=== PATIENT | female | born 1950 | race African-American/Black ===

== ENCOUNTER 2017-10-27 19:18 | Emergency (ER) | payer MEDICARE, SELFPAY ==
[2017-10-27 19:34] VITALS: BP 121/102; PULSE 81; RESP 18; TEMP 37.4; O2SAT 98; BMI 30.8
--- NOTE | 2017-10-27 19:44 | XR_ITS ---
XR shoulder RT min 2V HISTORY: Pain following injury ITS.REASON: FALL ORDERING PHYSICIAN: Sanjeev Cleary MD PATIENT AGE: 67 years COMPARISON: None FINDINGS: There is an anterior infraglenoid dislocation of the humeral head. Small bony fragments are noted superior to the greater tuberosity suggesting small avulsion injuries. IMPRESSION: Anterior shoulder dislocation with possible small avulsion injuries along the greater tuberosity
[2017-10-27 20:49] VITALS: BP 187/115; PULSE 80; RESP 18; O2SAT 99
[2017-10-27 20:50] VITALS: BP 187/115; PULSE 80; RESP 18; O2SAT 99
[2017-10-27 20:51] VITALS: BP 184/114; PULSE 82; RESP 16; O2SAT 98
[2017-10-27 20:55] VITALS: BP 184/117; PULSE 79; RESP 14; RESP 16; O2SAT 96; O2SAT 98
--- NOTE | 2017-10-27 20:56 | XR_ITS ---
XR shoulder RT 1V HISTORY: Follow-up shoulder reduction ITS.REASON: dislocation ORDERING PHYSICIAN: Sanjeev Cleary MD PATIENT AGE: 67 years COMPARISON: Same day FINDINGS: Single view of the right shoulder shows interval reduction of the shoulder dislocation. Small calcific density is present along superior aspect of the humeral head and could be due to small avulsion injury. IMPRESSION: Reduced shoulder dislocation
--- NOTE | 2017-10-27 20:57 | HMH.EDGENADL ---
ED Disposition Clinical Impression: Anterior shoulder dislocation Qualifiers: Encounter type: initial encounter Laterality: right Qualified Code(s): S43.014A - Anterior dislocation of right humerus, initial encounter Disposition: Home, Self-Care Condition on Discharge: Good Instructions: DI for Shoulder Dislocation Additional Instructions: wear sling as needed and ice and see pcp and ortho for follow up Referrals: Aldo Juarez MD [Primary Care Provider] - - Critical Care Critical Care Time: No Attestation: On 10/27/17, the high probability of a clinically significant, sudden or life threatening deterioration of the following system(s) required my full and direct attention, intervention and personal management. The time I documented below is in addition to time spent performing reported procedures but includes the following listed in this critical care notation. Medical Decision Making - Medical Records Medical records reviewed: Yes: I reviewed the patient's medical records. Vital Signs: 10/27/17 19:34 Temperature 99.4 F Temperature Source Oral Pulse Rate [Left] 81 Respiratory Rate 18 Blood Pressure [Left Arm] 121/102 Blood Pressure Mean [Left Arm] 108 Blood Pressure Source [Left Arm] Automatic Cuff Blood Pressure Position [Left Arm] Sitting 02 Sat by Pulse Oximetry 98 Oxygen Delivery Method Room Air Orders (Tests/Meds): ED MEDICATIONS Discontinued Medications Generic Name Dose Route Start Last Admin Trade Name Freq PRN Reason Stop Dose Admin Morphine Sulfate 5 mg 10/27/17 21:08 Morphine 10mg/Ml Syringe IV 10/27/17 21:09 ONCE ONE ORDERS Category Date Time Status Shoulder XR right 1 view [XR shoulder RT 1V] Stat Exams 10/27/17 20:56 Taken Shoulder XR right miminum 2 views [XR shoulder RT min Exams 10/27/17 19:44 Taken 2V] Stat - Radiology Data #1 Image(s): Shoulder Image Reviewed: Yes I reviewed the patient's radiology image Preliminary Findings: No Fracture Seen (ant dislocation and reduction ) - Rudy Inquiry Pt receiving controlled substance: No General Adult HPI - General Chief complaint: PAIN Stated complaint: AO [id number] INJURED ARM Time Seen by Provider: 10/27/17 21:12 Mode of Arrival: Wheelchair Source of Information: Patient, Spouse, Medical Record Limitations: No Limitations Description of Symptoms (Recalled from ER Triage Doc. by RN): PT. FELL UP THE STEPS AND LANDED ON HER RIGHT SHOULDER. - History of Present Illness HPI narrative: fell at home - trip injury on ice with injury to rt shoulder Onset (ago): hour(s) Location: upper extremity Radiation: non-radiation Severity: moderate Quality: sharp Relieving factors: immobilization Exacerbating factors: movement Associated symptoms: negative: chest pain, headaches, seizure Treatments prior to arrival: none - Related Data Home Medications Medication Instructions Recorded Confirmed Insulin Aspart [Novolog] 15 unit SQ HS 10/27/17 10/27/17 Insulin Glargine,Hum.rec.anlog 8 unit SQ BID 10/27/17 10/27/17 [Lantus Insulin 100units/mL 10mL vial] Allergies Allergy/AdvReac Type Severity Reaction Status Date / Time No Known Allergies Allergy Verified 10/27/17 19:47 [facility] History I have reviewed the patient's past medical history: Yes Medical History: Reports:: Diabetes Mellitus Type 2 - *Social History Alcohol Intake: never - Psychiatric History Expresses thoughts of harming self/others: None Suicide Plan Description: No Plan ROS Obtained: Yes All systems reviewed & no additional complaints - Constitutional Constitutional: Denies fever(s) - Eyes Eyes: Denies change in vision - ENT Ears, Nose, Mouth, and Throat: Denies sore throat - Cardiovascular Cardiovascular: Denies chest pain - Respiratory Respiratory: No cough - Gastrointestinal Gastrointestingal: Denies: abdominal pain - Genitourinary Male Genitourinary: Denies flank pain
--- NOTE | 2017-10-27 21:00 | PC.NURSE ---
Post sedation education was provided prior to procedure per John Aguirre RN.
--- NOTE | 2017-10-27 21:42 | PC.NURSE ---
FAMILY AT BEDSIDE, PT SITTING UP SPEAKING WITH FAMILY
[2017-10-27 21:43] VITALS: BP 167/90; PULSE 90; RESP 14; O2SAT 100
== END 2017-10-27 21:57 | disposition home or self-care (01) ==
PROVIDERS: Emergency Provider Emergency Medicine; Family Provider Family Medicine; PCP Family Medicine
DX: S43.014A Anterior dislocation of right humerus, initial encounter (principal); W10.9XXA Fall (on) (from) unspecified stairs and steps, initial encounter; Y93.9 Activity, unspecified; Y92.009 Unspecified place in unspecified non-institutional (private) residence as the place of occurrence of the external cause; E11.9 Type 2 diabetes mellitus without complications
CPT/HCPCS: 23650; 73020; 73030; 96365; 96375; 96376; 99284; 99285

== ENCOUNTER 2017-11-20 03:48 | Emergency (ER) | payer MEDICARE, SELFPAY ==
[2017-11-20] VITALS (8 sets, daily range): BP systolic 128–188; BP diastolic 81–125; PULSE 95–129; RESP 16–20; TEMP 36.8–37.2; O2SAT 93–100; BMI 30.2
--- NOTE | 2017-11-20 04:01 | XR_ITS ---
XR chest portable HISTORY: ITS.REASON: C/O SOB ORDERING PHYSICIAN: Dami Meadows MD PATIENT AGE: 67 years COMPARISON: 08/21/2017 FINDINGS: Cardiomegaly without failure. The right hilum is slightly prominent similar to an older exam of 08/30/2016 and may be vascular in nature. No lobar consolidation or collapse. There is mild right perihilar bronchial thickening IMPRESSION: 1. Cardiomegaly. 2. Bronchial thickening suggesting chronic bronchitis
[2017-11-20 04:23] LABS: Basophils % 0.6 % (0.1-2.0); Eosinophils # 0.2 K/mm3 (0.0-0.4); Hematocrit 31.4 % (37.0-47.0); Hemoglobin 10.1 g/dL (12.2-16.2); Lymphocytes # 0.8 K/mm3 (0.7-4.5); Lymphocytes % 16.8 K/mm3 (10-50); Mean Corpuscular HGB Conc 32.1 g/dL (31.8-35.4); Mean Corpuscular Hemoglobin 25.4 pg (27.0-31.2); Mean Platelet Volume 7.5 fl (7.4-10.4); Monocytes # 0.5 K/mm3 (0.1-1.0); Monocytes % 10.3 % (1.7-9.3); Neutrophils # 3.3 K/mm3 (1.8-7.8); Neutrophils % 68.3 % (37.0-80.0); Platelet Count 265 K/mm3 (142-424); Red Blood Count 3.97 M/mm3 (4.20-5.40); Red Cell Distribution Width 16.8 % (11.5-17.5); White Blood Count 4.8 K/mm3 (4.8-10.8)
[2017-11-20 04:47] LABS: Alanine Aminotransferase 22 U/L (12-78); Albumin Level 2.7 gm/dL (3.4-5.0); Albumin/Globulin Ratio 0.6 (1.1-1.8); Alkaline Phosphatase 254 U/L (46-116); Anion Gap 7.4 mEq/L (5-15); Aspartate Amino Transferase 38 U/L (15-37); Blood Urea Nitrogen 17 mg/dL (7-18); Calcium 8.7 mg/dL (8.5-10.1); Carbon Dioxide 31 mmol/L (21.0-32.0); Chloride 102 mmol/L (98-107); Creatine Kinase 42 U/L (26-192); Creatinine Clearance Estimated 60 mL/min (0-300); Estimated Glomerular Filt Rate 41 ml/min (>60); GFR (African American) 50 ML/MIN (>60); Globulin 4.6 gm/dl (1.3-3.2); Glucose 90 mg/dL (74-106); Potassium 3.4 mmoL/L (3.5-5.1); Sodium 137 mmol/L (136-145); Total Protein,Serum 7.3 gm/dL (6.4-8.2); Troponin I < 0.02 ng/ml (0.00-0.06)
[2017-11-20 04:51] LABS: CKMB Relative Index 1.2 U/L (0-4.0); Creatine Kinase MB < 0.5 mg/ml (0.0-3.6)
--- NOTE | 2017-11-20 05:06 | HMH.EDSOB ---
ED Disposition Clinical Impression: Atrial fibrillation with RVR Hypertension Qualifiers: Hypertension type: essential hypertension Qualified Code(s): I10 - Essential (primary) hypertension Disposition: Home, Self-Care Condition on Discharge: Good Additional Instructions: 1) please follow-up with 1015, tomorrow, , November 21 at [facility], [id number], [place] [address] 2) take another dose of furosemide and potassium this afternoon and tomorrow afternoon. 3) pharmacy picking technician prescription for amlodipine at [facility] today 4) follow-up with Talha Fox in [place] on November 24Monday, at 11 AM 5) take an additional dose of digoxin this afternoon, prescription called in at [facility] Prescriptions: Digoxin [Digoxin 0.25mg Tablet] 250 mcg PO ONCE #1 tab Referrals: Aldo Juarez MD [Primary Care Provider] - Time of Disposition: 11:28 - Critical Care Critical Care Time: No Attestation: On 11/20/17, the high probability of a clinically significant, sudden or life threatening deterioration of the following system(s) required my full and direct attention, intervention and personal management. The time I documented below is in addition to time spent performing reported procedures but includes the following listed in this critical care notation. Medical Decision Making - Medical Records Medical records reviewed: Yes: I reviewed the patient's medical records. Vital Signs: 11/20/17 03:54 11/20/17 04:44 11/20/17 05:02 Temperature 98.9 F Temperature Source Oral Pulse Rate Pulse Rate [Right Brachial] 101 H 95 H 113 H Respiratory Rate 20 20 20 Blood Pressure Blood Pressure [Right Arm] 188/118 162/111 170/125 Blood Pressure Mean [Right Arm] 141 128 140 Blood Pressure Source [Right Arm] Automatic Cuff Automatic Cuff Automatic Cuff Blood Pressure Position [Right Arm] Supine Supine Supine 02 Sat by Pulse Oximetry 97 100 97 Oxygen Delivery Method Room Air Room Air Room Air 11/20/17 05:21 11/20/17 05:38 11/20/17 06:02 Temperature Temperature Source Pulse Rate Pulse Rate [Right Brachial] 129 H 109 H 120 H Respiratory Rate 20 20 16 Blood Pressure Blood Pressure [Right Arm] 163/104 165/113 179/125 Blood Pressure Mean [Right Arm] 123 130 143 Blood Pressure Source [Right Arm] Automatic Cuff Automatic Cuff Automatic Cuff Blood Pressure Position [Right Arm] Supine Supine Supine 02 Sat by Pulse Oximetry 97 96 98 Oxygen Delivery Method Room Air Room Air Room Air 11/20/17 06:16 11/20/17 12:19 Temperature 98.2 F Temperature Source Pulse Rate 101 H Pulse Rate [Right Brachial] 109 H Respiratory Rate 18 20 Blood Pressure 128/81 Blood Pressure [Right Arm] 176/104 Blood Pressure Mean [Right Arm] 128 Blood Pressure Source [Right Arm] Automatic Cuff Blood Pressure Position [Right Arm] Supine 02 Sat by Pulse Oximetry 93 L Oxygen Delivery Method - Lab Data Lab results reviewed: Yes: I reviewed the patient's lab results. Lab Results 11/20/17 04:05: WBC 4.8, RBC 3.97 L, Hgb 10.1 L, Hct 31.4 L, MCV 79.0 L, MCH 25.4 L, MCHC 32.1, RDW 16.8, Plt Count 265, MPV 7.5, Neut % (Auto) 68.3, Lymph % (Auto) 16.8, [place] % (Auto) 10.3 H, Eos % (Auto) 4.0, Baso % (Auto) 0.6, Neut # (Auto) 3.3, Lymph # (Auto) 0.8, [place] # (Auto) 0.5, Eos # (Auto) 0.2, Baso # (Auto) 0.0 11/20/17 04:05: Sodium 137, Potassium 3.4 L, Chloride 102, Carbon Dioxide 31, Anion Gap 7.4, BUN 17, Creatinine 1.30 H, Estimated Creat Clear 60, Estimated GFR 41 L, Est GFR ( Amer) 50 L, Glucose 90, Calcium 8.7, Total Bilirubin 1.0, AST 38 H, ALT 22, Alkaline Phosphatase 254 H, Total Creatine Kinase 42, CK-MB (CK-2) < 0.5, CK-MB (CK-2) Rel Index 1.2, Troponin I < 0.02, Total Protein 7.3, Albumin 2.7 L, Globulin 4.6 H, Albumin/Globulin Ratio 0.6 L 11/20/17 04:30: PT 24.8 H, INR 2.28 H, APTT 37.1 H 11/20/17 04:30: D-Dimer 945 H* 11/20/17 04:30: B-Natriuretic Peptide 538 H 11/20/17 10:40:
[2017-11-20 05:26] LABS: INR 2.28 (0.9-1.1); Prothrombin Time 24.8 seconds (9.4-11.8)
[2017-11-20 05:28] LABS: Activated Partial Thrombo Time 37.1 seconds (23.6-34.0)
--- NOTE | 2017-11-20 05:28 | PC.NURSE ---
CRITICAL LAB VALUE RECIEVED FROM CHARLENE KLEIN. PTT 37.1. DR BERMAN NOTIFIED
[2017-11-20 05:38] LABS: D-Dimer 945 (0-400)
--- NOTE | 2017-11-20 07:28 | CT_ITS ---
CT angio chest HISTORY: Shortness of breath, shortness of air, elevated d-dimer with chest pain ITS.REASON: SOA, ELEVATED D-DIMER ORDERING PHYSICIAN: Dami Meadows MD PATIENT AGE: 67 years TECHNIQUE: Axial images obtained following the administration of 75 mL of Isovue 370 . Sagittal, and coronal reformatted images are also generated and reviewed. COMPARISON: 02/16/2017 FINDINGS: No evidence of pulmonary embolus or aortic aneurysm. There is diffuse mediastinal adenopathy and mild right hilar adenopathy. Pretracheal lymph nodes measure up to 2.8 x 3.2 cm similar to the previous exam. There is a moderate sized hiatal hernia. There are subcarinal adenopathy. Coronary artery calcifications are present. The left atrium is enlarged. There is reflux of contrast into the inferior vena cava and hepatic veins suggesting right heart strain. There are atelectatic/fibrotic changes in the lung bases small patchy density is present in the posterior segment of the right upper lobe may be due to small area of atelectasis. There is some mild septal thickening with some mosaic patchy groundglass density in the lungs suggesting mild CHF. There is trace left-sided effusion. There are 2 partially calcified fatty lesions in the left posterior hemithorax in the subcutaneous tissue and may be due to sebaceous cyst similar to the previous exam. IMPRESSION: 1. No evidence of pulmonary embolus. 2. No significant change in diffuse mediastinal adenopathy. 3. Suspect mild CHF. Left atrium is enlarged. There is reflux of contrast into the inferior vena cava suggesting right ventricular strain. Coronary artery calcifications 4. Small hiatal hernia
[2017-11-20 11:10] LABS: Creatine Kinase 31 U/L (26-192); Troponin I < 0.02 ng/ml (0.00-0.06)
[2017-11-20 11:13] LABS: CKMB Relative Index 1.6 U/L (0-4.0); Creatine Kinase MB < 0.5 mg/ml (0.0-3.6)
--- NOTE | 2017-11-20 15:26 | HMH.CNCARD ---
History of Present Illness Consult date: 11/20/17 Requesting physician: Rafi Albrecht Consult reason: hypertension, atrial fibrillation (Atrial Flutter with variable AV conduction), shortness of breath Chief complaint: SOA, palpitations History of present illness: 67 yo female with hx of persistent/chronic AF/AFL (s/p AF/AFL ablation 09/23/14, unsuccessful), HTN (requiring multiple medications), diastolic dysfunction, untreated ALINA (no prior interest in referral to sleep med or CPAP). She presented to the ER early this morning with c/o SOA, palpitations and elevated blood pressure. Initial BP was 188/118 with a HR in the 110s with an underlying rhythm of AFL with variable AV conduction. Her BNP was elevated to 538 and CXR showed cardiomegaly with bronchial thickening suggesting chronic bronchitis. D-Dimer was elevated to 945 so a CTA chest was done; it showed no evidence of PE but evidence of mild CHF, LA enlargement, reflux of contrast into IVC suggesting RV strain. Potassium was slightly low at 3.4 and Hgb was low at 10.1. CE were negative. She was given her regular morning home medications which included Carvedilol 25 mg, Clonidine 0.3 mg, HDZN, ARB plus enalapril 2.5 mg IV and Diltiazem 120 mg with her BP coming down to 140s/80s. She was also give a 0.25 mg dose of IV Digoxin. Her HR gradually slowed from the 110s to the 90s and her SOA improved (O2 sats were in the high 90s throughout). [facility] History Medical History: Reports:: Arrhythmia (AF/AFL, atrial tachycardia), Congestive Heart Failure (Diastolic), Diabetes Mellitus Type 2, Hyperlipidemia (untreated sleep apnea, obesity, gout), Hypertension Denies:: Cancer, Diabetes Mellitus Type 1, Internal Pacemaker, MRSA Other Surgeries: Yes: Tubal Ligation. No: Pacemaker Amputation: No Fractures: No Comment: Cholecystectomy - *Social History Smoking Status: Never smoker Alcohol Intake: never - Psychiatric History Expresses thoughts of harming self/others: None Suicide Plan Description: No Plan *Family Hx:: Diabetes, Heart Attack, Hyperlipidemia, Hypertension Meds Home Medications Medication Instructions Recorded Confirmed Type Atorvastatin Calcium [Atorvastatin 20 mg PO DAILY 11/20/17 11/20/17 History 20mg Tab] Bisoprolol Fumarate [Zebeta 5mg 5 mg PO DAILY 11/20/17 11/20/17 History tablet] Carvedilol [Carvedilol 25mg Tab] 25 mg PO BID 11/20/17 11/20/17 History Furosemide [Lasix 40mg tab] 40 mg PO DAILY 11/20/17 11/20/17 History Hydralazine HCl [Hydralazine HCl 50 mg PO TID 11/20/17 11/20/17 History 25mg Tablet] Insulin Aspart [Novolog] 8 unit SQ MONTHLY 11/20/17 11/20/17 History Insulin Glargine,Hum.rec.anlog 15 unit SQ DAILY 11/20/17 11/20/17 History [Lantus Insulin 100units/mL 10mL vial] Losartan Potassium [Cozaar] 50 mg PO DAILY 11/20/17 11/20/17 History Potassium Chloride [K-Tab ER 20 20 meq PO BID 11/20/17 11/20/17 History mEq] Warfarin Sodium 4 mg PO DAILY 11/20/17 11/20/17 History cloNIDine HCl [cloNIDine 0.1mg 0.3 mg PO TID 11/20/17 11/20/17 History Tablet] Allergies Allergy/AdvReac Type Severity Reaction Status Date / Time No Known Allergies Allergy Verified 10/27/17 19:47 Review of Systems - Constitutional Reports daytime sleepiness - *Cardiovascular Reports shortness of breath, Reports irregular heart rhythm, Reports rapid, pounding, or irregular heartbeat, Reports fast heart rate, Denies leg swelling - *Respiratory Reports shortness of breath, Reports snoring - *Gastrointestinal Denies abdominal pain - *Musculoskeletal Denies joint pain - *Neurologic Denies behavioral changes, Denies localized weakness - Psychiatric Comments: Negative Exam Vital signs and Labs for Last 24 Hours: Temp Pulse Resp BP Pulse Ox 98.2 F 101 H 20 128/81 93 L 11/20/17 12:19 11/20/17 12:19 11/20/17 12:19 11/20/17 12:19 11/20/17 06:16 Laboratory Results - last 24 hr 11/20/17 04:05: WBC 4.8, RBC 3
== END 2017-11-20 12:25 | disposition home or self-care (01) ==
PROVIDERS: Emergency Provider Emergency Medicine; Family Provider Family Medicine; PCP Family Medicine
DX: I48.91 Unspecified atrial fibrillation (principal); I10 Essential (primary) hypertension; E11.9 Type 2 diabetes mellitus without complications; R06.02 Shortness of breath
CPT/HCPCS: 36415; 71045; 71275; 80053; 82550; 82553; 83880; 84484; 85025; 85378; 85610; 85730; 93005; 96374; 96375; 99283; Q9967

== ENCOUNTER → 2017-12-20 10:23 | Outpatient (CLI) | payer MEDICARE, SELFPAY ==
[2017-12-20 11:48] LABS: Digoxin 0.93 ng/mL (1.15-2.56)
== END ==
PROVIDERS: Visit Provider Internal Medicine Cardiovascular Disease
DX: I48.92 Unspecified atrial flutter (principal); I47.1 Supraventricular tachycardia
CPT/HCPCS: 36415; 80162

== ENCOUNTER → 2017-12-29 14:35 | Outpatient (CLI) | payer MEDICARE, SELFPAY ==
--- NOTE | 2017-12-29 14:37 | MR_ITS ---
MR shoulder RT wo con Ordering Physician: Aldo Juarez MD Patient Age: 67 years: Female HISTORY: ITS.REASON: RIGHT SHOULDER PAIN Previous shoulder dislocation October. Slipped and fell on ice.q Decreased range of motion. TECHNIQUE: Multiplanar multisequence images 1.5 T MR COMPARISON :Plain films right shoulder 10/17/2017. FINDINGS . Patient had shoulder dislocation October 27, 2017 was tiny bone fragments off the cap of the greater tuberosity. I favor is more likely a anterior subcoracoid dislocation rather than subglenoid Today's MR images show a full-thickness Rotator Cuff Tear which mainly involves the supraspinatus tendon, but may also extend to the junction with the infraspinatus SUPRASPINATUS TENDON tear. Full-thickness tear at the supraspinatus tendon insertion. (Coronal image 8, sagittal image 7-5. It). Estimate this RCT Less than 10 mm AP dimension & in length on coronal image 8.,.With this we see minimal edema tracking along the supraspinatus tendon and into the supraspinatus muscle. Likely associated Roughening and mild irregularity along the cap of greater tuberosity immediate beneath this RCT which may likely reflects the small osseous fragments previously noted overlying the cap of the greater trochanter from impaction injury as suggested on previous plain films film.. However there is surprising lack of bone edema otherwise beneath the greater tuberosity to reflects such. Slight downward, anterior sloping of the acromion with subacromial stenosis. The subacromial space narrows to 5.5 mm beneath the tip of acromion near where we encounter this rotator cuff tear. INFRASPINATUS TENDON. Less pronounced tear of the infraspinatus tendon mainly undersurface partial tear with some minimal edema and fluid tracking along the infraspinatus tendon . SUBSCAPULARIS TENDON, slight increased signal at its superior margin may reflect some mild tendinopathy no definitive tear. The biceps tendon appears to be normal position. Central within the bicipital groove.. Slightly meade character as it passes superior to the bicipital groove but I believe remains intact. There is generous fluid along the biceps tendon which most likely is reflection of the modest joint effusion although can be seen with a biceps tendinopathy and or a synovial cyst along the biceps tendon sheath. This fluid collection is also nicely seen on coronal image 10 & 9 and addition to axial image 18. The osseous glenoid is intact. The anterior labrum is generous well-maintained with no good evidence of anterior labral tear on these images minimal fluid, minimal joint fluid outlines the anterior & posterior labrum. The posterior labrum has blunted appearance. Appearance is suspect for possible a minimal tear at the posterior labrum such as seen on axial slice 15, 16 and sagittal image 13. Clinical correlation required. AC joint mild to moderate arthropathy. Inferior spurring mildly encroaches upon the supraspinatus complex as it passes beneath this area at medial outlet. Last wall note some scattered small almost target-like appearing areas throughout the humeral head and humeral neck. These are quite numerous and tiny. Nonspecific. Cannot exclude some small metastatic foci. Does This patient have the other known disease.? I note on recent CTA November 20, 2017 that there were prominent mediastinal adenopathy. This will require correlation.. May benefit from a total body bone scan, once the nature of the abnormal mediastinal adenopathy is established. IMPRESSION======== 1 . ROTATOR CUFF TEAR.: ... ~1 cm full-thickness SUPRASPINATUS TENDON TEAR most notable ... Also likely a tear/partial tear infraspinatus tendon.-Tear here mainly involves undersurface towards superior aspect infraspinatus tendon ... Mild adenop
== END ==
PROVIDERS: Family Provider Family Medicine; PCP Family Medicine; Visit Provider Family Medicine
DX: M25.511 Pain in right shoulder (principal)
CPT/HCPCS: 73221

== ENCOUNTER 2018-08-05 06:50 | Inpatient (IN) ==
--- NOTE | 2018-08-05 07:11 | Emergency Department Note ---
ED Disposition Clinical Impression: Hypoglycemia, Atrial fibrillation with rapid ventricular response, Peripheral edema Dyspnea Qualifiers: Dyspnea type: shortness of breath Qualified Code(s): R06.02 - Shortness of breath; R06.00 - Dyspnea, unspecified; R06.01 - Orthopnea CHF (congestive heart failure) Qualifiers: Heart failure type: unspecified Heart failure chronicity: acute on chronic Qualified Code(s): I50.9 - Heart failure, unspecified Disposition: Still a Patient Condition on Discharge: Fair Referrals: Rafi Albrecht MD [Primary Care Provider] - - Critical Care Critical Care Time: Yes Attestation: On 08/05/18, the high probability of a clinically significant, sudden or life threatening deterioration of the following system(s) required my full and direct attention, intervention and personal management. The time I documented below is in addition to time spent performing reported procedures but includes the following listed in this critical care notation. Vital system(s) involved:: Metabolic Failure My critical care processes included: Assessment & monitoring of V/S, Initial and Re-exams, Data Review/Interpretation, Coordinating Care, Medication Orders and management, Documentation Medical Decision Making - Rudy Inquiry Pt receiving controlled substance: No Vital Signs: 08/05/18 07:00 08/05/18 07:18 08/05/18 07:37 Temperature 95.8 F L 95.4 F L Temperature Source Rectal Rectal Pulse Rate [Right Radial] 105 H 94 H 90 Respiratory Rate 18 Blood Pressure [Right Arm] 140/98 H 104/75 L 148/51 H Blood Pressure Mean [Right Arm] 112 84 83 Blood Pressure Source [Right Arm] Automatic Cuff Automatic Cuff Automatic Cuff Blood Pressure Position [Right Arm] Sitting Sitting Sitting 02 Sat by Pulse Oximetry 96 99 99 Oxygen Delivery Method Room Air 08/05/18 07:51 Temperature Temperature Source Pulse Rate [Right Radial] 109 H Respiratory Rate Blood Pressure [Right Arm] 144/98 H Blood Pressure Mean [Right Arm] 113 Blood Pressure Source [Right Arm] Automatic Cuff Blood Pressure Position [Right Arm] Sitting 02 Sat by Pulse Oximetry 97 Oxygen Delivery Method - Lab Data Lab Results 08/05/18 07:10: WBC 4.2 L, RBC 4.05 L, Hgb 11.6 L, Hct 33.3 L, MCV 82.3, MCH 28.6, MCHC 34.7, RDW 18.0 H, Plt Count 269, MPV 7.3 L, Neut % (Auto) 72.2, Lymph % (Auto) 15.2, [place] % (Auto) 9.5 H, Eos % (Auto) 2.6, Baso % (Auto) 0.4, Neut # (Auto) 3.0, Lymph # (Auto) 0.6 L, [place] # (Auto) 0.4, Eos # (Auto) 0.1, Baso # (Auto) 0.0 08/05/18 07:10: Sodium 142, Potassium 3.2 L, Chloride 106, Carbon Dioxide 28, Anion Gap 11.2, BUN 31 H, Creatinine 1.83 H, Estimated Creat Clear 40, Estimated GFR 28 L, Est GFR ( Amer) 34 L, Glucose 40 L, Calcium 8.8, Troponin I < 0.02 08/05/18 07:10: Lactate 1.5 08/05/18 07:10: B-Natriuretic Peptide 895 H Result diagrams: 08/05/18 07:10 08/05/18 07:10 Orders (Tests/Meds): ED MEDICATIONS Discontinued Medications Generic Name Dose Route Start Last Admin Trade Name Freq PRN Reason Stop Dose Admin Dextrose 50 ml 08/05/18 07:27 08/05/18 07:28 Dextrose 50% 50ml Syringe IVP 08/05/18 07:28 50 ml ONCE ONE Administration Potassium Chloride 40 meq 08/05/18 07:44 08/05/18 07:52 Klor-Con 20meq Tablet PO 08/05/18 07:45 40 meq ONCE ONE Administration ORDERS Category Date Time Status XR chest portable Stat Exams 08/05/18 07:06 Taken DIG [Digoxin] Stat Lab 08/05/18 07:10 Received PT/INR [Prothrombin Time INR] Stat Lab 08/05/18 07:39 Ordered Blood Culture Stat Micro 08/05/18 07:10 Ordered - Radiology Data #1 Image(s): Chest Image Reviewed: Yes I reviewed the patient's radiology image cardiomegaly - ECG Data Tracing #1 EKG interpreted by Sanjeev Cleary MD: Rhythm: Atrial fibrillation with rapid ventricular response Rate: 114 [place]: Left Ectopy: none Conduction: normal ST Segment Changes: none T Wave Changes: none Q Waves/minimal R waves/poor R wave progression: Septal, anterior, lateral - Physician Consults Physician Consulted: Karan Albrecht Time: 07:55 Reason -: Admission Comment/Response: Agrees to admit the patient to the hospital. We discussed the patient's clinical information, including history, exam, laboratory and radiology results and ED course. Per hospital procedure, I will write temporary bridge inpatient orders on the patient. Specific orders requested by the admitting physician: Lasix 80 mg IV x1, continue bear hugger, follow blood sugar, serial cardiac enzymes General Adult HPI - General Chief complaint: Shortness of Breath/Dyspnea Stated complaint: SOA; Fluid Retention Time Seen by Provider: 08/05/18 07:15 Mode of Arrival: Ambulatory Limitations: No Limitations Description of Symptoms (Recalled from ER Triage Doc. by RN): Pt states about an hour ago she started sweating and couldnt breath, denies any cough or pain at this time. C/O fluid on her feet taht started 2 days ago, +2 edema noted in ankles. - History of Present Illness HPI narrative: Awakened 1 hour ago with shortness of breath and sweatiness. She denies chest pain. States she last checked her blood sugar at 4:30 AM. States she normally gets up that early. Her blood sugar was in the 200s and she gave herself 12 units of NovoLog insulin. She did not eat. She did not recheck her blood sugar when she awakened an hour ago. She does not feel cold, in fact she says she feels hot, although her temperature in the emergency department is low. She has not had a documented fever. Denies cough, vomiting, diarrhea, any pain. Has had increased swelling of her feet for several days. Saw her primary care doctor on 3 days ago. Lasix dose increased from 40 mg a day to 80 mg a day, has not noticed much change in the swelling. - Related Data Home Medications Medication Instructions Recorded Confirmed Atorvastatin Calcium [Atorvastatin 20 mg PO DAILY 11/20/17 08/05/18 20mg Tab] Carvedilol [Carvedilol 25mg Tab] 25 mg PO BID 11/20/17 08/05/18 Furosemide [Lasix 40mg tab] 40 mg PO DAILY 11/20/17 08/05/18 Hydralazine HCl [Hydralazine HCl 50 mg PO TID 11/20/17 08/05/18 25mg Tablet] Insulin Aspart [Novolog] 8 unit SQ TID 11/20/17 08/05/18 Insulin Glargine,Hum.rec.anlog 15 unit SQ DAILY 11/20/17 08/05/18 [Lantus Insulin 100units/mL 10mL vial] Losartan Potassium [Cozaar] 50 mg PO DAILY 11/20/17 08/05/18 Potassium Chloride [K-Tab ER 20 20 meq PO BID 11/20/17 08/05/18 mEq] Warfarin Sodium 3 mg PO DAILY 11/20/17 08/05/18 cloNIDine HCl [cloNIDine 0.1mg 0.3 mg PO TID 11/20/17 08/05/18 Tablet] amlodipine 5 mg tablet 5 mg PO ONCE 01/24/18 08/05/18 Digoxin [Digoxin 0.25mg Tablet] 250 mcg PO ONCE 06/17/18 08/05/18 Allergies Allergy/AdvReac Type Severity Reaction Status Date / Time No Known Allergies Allergy Verified 06/17/18 22:06 [facility] History I have reviewed the patient's past medical history: Yes Medical History: Reports:: Arrhythmia, Congestive Heart Failure, Diabetes Mellitus Type 2, Hyperlipidemia, Hypertension Denies:: Cancer, Diabetes Mellitus Type 1, Internal Pacemaker, MRSA Laterality Cases: Right: Arthroscopy Shoulder Other Surgeries: Yes: Cholecystectomy, Tubal Ligation, Other. No: Pacemaker Amputation: No Fractures: No Comment: Cholecystectomy - Social History Smoking Status: Never smoker Alcohol Intake: never - Psychiatric History Expresses thoughts of harming self/others: None Suicide Plan Description: No Plan Family Hx:: Diabetes, Heart Attack, Hyperlipidemia, Hypertension ROS Obtained: Yes All systems reviewed & no additional complaints - Constitutional Constitutional: Reports excessive sweating, Denies fever(s) - Cardiovascular Cardiovascular: Denies chest pain, Reports edema - Respiratory Respiratory: No cough, Yes dyspnea - Gastrointestinal Gastrointestingal: Denies: abdominal pain, diarrhea, vomiting - Neurologic Neurologic: Denies headache(s) Physical Exam - General General appearance: alert, in no apparent distress - Head Head exam: atraumatic, normocephalic, normal inspection - Eye Eye exam: Present: normal appearance, PERRL, EOMI - ENT ENT exam: Present: mucous membranes moist - Neck Neck exam: Present: normal inspection, trachea midline - Chest Chest inspection: Present: normal inspection, symmetric chest wall rise. Absent: tenderness - Respiratory Respiratory exam: Present: normal lung sounds bilaterally. Absent: respiratory distress - Cardiovascular Cardiovascular exam: Present: tachycardia, irregular rhythm. Absent: JVD - Abdominal Exam Abdominal exam: Present: soft, normal bowel sounds. Absent: distention, tenderness, guarding - Extremities Exam Extremities exam: Present: full ROM, normal capillary refill, pedal edema (2+). Absent: calf tenderness - Neurological Exam Neurological exam: Present: alert, oriented X3 - Psychiatric Psychiatric exam: Present: normal affect, normal mood - Skin Skin exam: Present: warm, dry, intact, normal color
[2018-08-05 07:25] LABS: Basophils % 0.4 % (0.1-2.0); Eosinophils # 0.1 K/mm3 (0.0-0.4); Eosinophils % 2.6 % (0.1-12.0); Hematocrit 33.3 % (37.0-47.0); Hemoglobin 11.6 g/dL (12.2-16.2); Lymphocytes # 0.6 K/mm3 (0.7-4.5); Lymphocytes % 15.2 K/mm3 (10-50); Mean Corpuscular HGB Conc 34.7 g/dL (31.8-35.4); Mean Corpuscular Hemoglobin 28.6 pg (27.0-31.2); Mean Corpuscular Volume 82.3 fl (81-99); Mean Platelet Volume 7.3 fl (7.4-10.4); Monocytes # 0.4 K/mm3 (0.1-1.0); Monocytes % 9.5 % (1.7-9.3); Neutrophils % 72.2 % (37.0-80.0); Platelet Count 269 K/mm3 (142-424); Red Blood Count 4.05 M/mm3 (4.20-5.40); White Blood Count 4.2 K/mm3 (4.8-10.8)
[2018-08-05 07:36] LABS: Anion Gap 11.2 mEq/L (5-15); Blood Urea Nitrogen 31 mg/dL (7-18); Calcium 8.8 mg/dL (8.5-10.1); Carbon Dioxide 28 mmol/L (21.0-32.0); Chloride 106 mmol/L (98-107); Sodium 142 mmol/L (136-145)
[2018-08-05 07:38] LABS: Potassium 3.2 mmoL/L (3.5-5.1)
[2018-08-05 07:47] LABS: Glucose 40 mg/dL (74-106)
[2018-08-05 07:56] LABS: INR 2.19 (0.9-1.1); Prothrombin Time 22.1 seconds (9.4-11.8)
--- NOTE | 2018-08-05 08:50 | History & Physical Report ---
*Admission Date: 08/05/18 *Chief complaint: Shortness of breath *History of present illness: Ms. Burk is a 67yo F with Hx of DM, A. fib on Coumadin, congestive heart failure, who presents to the ER due to diaphoresis and shortness of breath. She states that for the past several weeks (2-3) she has had increased abdominal girth and distention, worsening edema in her legs, and worsening shortness of breath. She denies any cough or chest pain. Time of presentation she reports the following" (Dr. Cleary's HPI) "Awakened 1 hour (before presentation) with shortness of breath and sweatiness. She denies chest pain. States she last checked her blood sugar at 4:30 AM. States she normally gets up that early. Her blood sugar was in the 200s and she gave herself 12 units of NovoLog insulin. She did not eat. She did not recheck her blood sugar when she awakened an hour ago. She does not feel cold, in fact she says she feels hot, although her temperature in the emergency department is low. She has not had a documented fever. Denies cough, vomiting, diarrhea, any pain. "Has had increased swelling of her feet for several days. Saw her primary care doctor on 3 days ago. Lasix dose increased from 40 mg a day to 80 mg a day, has not noticed much change in the swelling." Patient currently admitted to floor service, due to persistent hypothermia will escalate to stepdown. Continues to require bear hugger though body temperature improving. Complains of abdominal distention, fullness, decreased appetite, intermittent shortness of breath. Denies chest pain, nausea or vomiting, diarrhea, new bruising or bleeding Family at bedside does say she has been a "little more confused" lately. [facility] History I have reviewed the patient's past medical history: Yes Medical History: Reports:: Arrhythmia, Congestive Heart Failure, Diabetes Mellitus Type 2, Hyperlipidemia, Hypertension Denies:: Cancer, Diabetes Mellitus Type 1, Internal Pacemaker, MRSA Laterality Cases: Right: Arthroscopy Shoulder Other Surgeries: Yes: Cholecystectomy, Tubal Ligation, Other. No: Pacemaker Amputation: No Fractures: No - *Social History Smoking Status: Never smoker Alcohol Intake: never - Psychiatric History Expresses thoughts of harming self/others: None Suicide Plan Description: No Plan *Family Hx:: Diabetes, Heart Attack, Hyperlipidemia, Hypertension Review of Systems - Review of Systems Review of systems:: pertinent systems reviewed and negative unless documented below - *Neurologic Denies headache(s) Meds Home Medications Medication Instructions Recorded Confirmed Type Atorvastatin Calcium [Atorvastatin 20 mg PO DAILY 11/20/17 08/05/18 History 20mg Tab] Carvedilol [Carvedilol 25mg Tab] 25 mg PO BID 11/20/17 08/05/18 History Furosemide [Lasix 40mg tab] 40 mg PO DAILY 11/20/17 08/05/18 History Hydralazine HCl [Hydralazine HCl 50 mg PO TID 11/20/17 08/05/18 History 25mg Tablet] Insulin Aspart [Novolog] 8 unit SQ TID 11/20/17 08/05/18 History Insulin Glargine,Hum.rec.anlog 15 unit SQ DAILY 11/20/17 08/05/18 History [Lantus Insulin 100units/mL 10mL vial] Potassium Chloride [K-Tab ER 20 20 meq PO BID 11/20/17 08/05/18 History mEq] cloNIDine HCl [cloNIDine 0.1mg 0.3 mg PO TID 11/20/17 08/05/18 History Tablet] Digoxin 125 mcg PO DAILY 08/05/18 08/05/18 History Losartan/Hydrochlorothiazide 1 tab PO DAILY 08/05/18 08/05/18 History [Losartan-Hctz 50-12.5 mg Tab] Warfarin Sodium 3 mg PO DAILY 08/05/18 08/05/18 History Allergies Allergy/AdvReac Type Severity Reaction Status Date / Time No Known Allergies Allergy Verified 06/17/18 22:06 Exam Vital signs and Labs for Last 24 Hours: Temp Pulse Resp BP Pulse Ox 94.9 F L 109 H 18 144/98 H 97 08/05/18 08:04 08/05/18 07:51 08/05/18 07:00 08/05/18 07:51 08/05/18 07:51 Laboratory Results - last 24 hr 08/05/18 07:10: WBC 4.2 L, RBC 4.05 L, Hgb 11.6 L, Hct 33.3 L, MCV 82.3, MCH 28.6, MCHC 34.7, RDW 18.0 H, Plt Count 269, MPV 7.3 L, Neut % (Auto) 72.2, Lymph % (Auto) 15.2, [place] % (Auto) 9.5 H, Eos % (Auto) 2.6, Baso % (Auto) 0.4, Neut # (Auto) 3.0, Lymph # (Auto) 0.6 L, [place] # (Auto) 0.4, Eos # (Auto) 0.1, Baso # (Auto) 0.0 08/05/18 07:10: Sodium 142, Potassium 3.2 L, Chloride 106, Carbon Dioxide 28, Anion Gap 11.2, BUN 31 H, Creatinine 1.83 H, Estimated Creat Clear 40, Estimated GFR 28 L, Est GFR ( Amer) 34 L, Glucose 40 L, Calcium 8.8, Troponin I < 0.02 08/05/18 07:10: Lactate 1.5 08/05/18 07:10: B-Natriuretic Peptide 895 H 08/05/18 07:10: PT 22.1 H, INR 2.19 H 08/05/18 07:10: Digoxin 1.24 I & O for Last 24 hours: Intake & Output 08/02/18 08/03/18 08/04/18 08/05/18 23:59 23:59 23:59 23:59 Weight 81.647 kg - *Routine HEENT Exam Head: Present: normocephalic, atraumatic Eye: Present: EOMI, PERRL ENT: Present: mucous membranes moist - *Routine Neck Exam Present: supple, full ROM. Absent: JVD, lymphadenopathy - *Routine Respiratory Exam Present: CTA bilaterally, crackles (bilateral bases). Absent: prolonged expiratory phase, wheezes - *Routine Cardiovascular Exam Present: Normal S1, irregular rhythm. Absent: murmur - *Routine Abdominal Exam Present: normoactive bowel sounds, tenderness (minimal diffuse), distended - *Routine Rectal Exam Patient deferred: visual exam - *Routine Exam Patient deferred: external exam - *Routine Extremities Exam Present: edema (2+ to knees). Absent: cyanosis, clubbing - *Routine Skin Exam Present: intact. Absent: cyanosis, erythema - *Routine Neurological Exam Present: alert, oriented X3, CN II-XII intact. Absent: altered mental status Assessment and Plan (1) Atrial fibrillation with RVR Current visit: Yes Status: Chronic Category: Medical Code(s): I48.91 - Unspecified atrial fibrillation Holding warfarin due to need for paracentesis. -Holding carvedilol in setting of bradycardia -Holding digoxin pending digoxin level -To need to monitor on telemetry (2) CHF (congestive heart failure) Current visit: Yes Status: Chronic Qualifiers: Heart failure type: unspecified Heart failure chronicity: acute on chronic Qualified Code(s): I50.9 - Heart failure, unspecified Category: Medical Code(s): I50.9 - Heart failure, unspecified (3) Dyspnea Current visit: Yes Status: Acute Qualifiers: Dyspnea type: shortness of breath Qualified Code(s): R06.02 - Shortness of breath; R06.00 - Dyspnea, unspecified; R06.01 - Orthopnea Category: Medical Code(s): R06.00 - Dyspnea, unspecified Likely due to ascites/increased abdominal distention and A. fib -Oxygen as needed goal sats greater than 92 while awake greater than 88 while asleep (4) Hypoglycemia Current visit: Yes Status: Acute Category: Medical Code(s): E16.2 - Hypoglycemia, unspecified Patient is a diabetic who uses insulin, used her insulin last night. Concern hypoglycemia is related to infection not just insulin use. Holding insulin at this time, we will initiate sliding scale if becomes hyperglycemic. Treating underlying etiology (5) Peripheral edema Current visit: Yes Status: Acute Category: Medical Code(s): R60.9 - Edema, unspecified (6) Cirrhosis Current visit: No Status: Chronic Qualifiers: Hepatic cirrhosis type: unspecified hepatic cirrhosis Ascites presence: unspecified Qualified Code(s): K74.60 - Unspecified cirrhosis of liver Category: Medical Code(s): K74.60 - Unspecified cirrhosis of liver Unclear etiology, abdominal ultrasound ordered stat showing scarring of liver. Patient has new ascites which is developed over the past few weeks. No history of paracentesis or dialysis - MELD: 21 (creatinine of 1.8, bili of 1, INR of 2.2) -Meld however is augmented by the fact patient is on anticoagulation therefore giving an abnormal INR -Currently patient's cirrhosis is compensated as she does not have jaundice, coagulopathy, hepatic encephalopathy however she does have new ascites. -Ammonia level pending -We will hold on diuretics at this time for ascites due to concern for infection and patient having SIRS -Consulted GI to assist with paracentesis INR is below 1.7, and assist with management of cirrhosis (7) Hypothermia Current visit: Yes Status: Acute Category: Medical Code(s): T68.XXXA - Hypothermia, initial encounter Suspect a marker of systemic inflammatory response/infection. Warm with bear hugger. Responding appropriately to treatment. (8) Hypertension Current visit: No Status: Chronic Qualifiers: Hypertension type: essential hypertension Qualified Code(s): I10 - Essential (primary) hypertension Category: Medical Code(s): I10 - Essential (primary) hypertension Continue hydralazine and clonidine. Holding other hypertensive medications due to clinical status (9) Renal insufficiency Current visit: No Status: Chronic Category: Medical Code(s): N28.9 - Disorder of kidney and ureter, unspecified Avoid nephrotoxic's, reassess with a.m. labs, holding ARB in setting of JULIETTE (10) SIRS (systemic inflammatory response syndrome) Current visit: Yes Status: Acute Category: Medical Code(s): R65.10 - Systemic inflammatory response syndrome (SIRS) of non-infectious origin without acute organ dysfunction 67-year-old patient with hypothermia, leukopenia. Suspect possible silent SBP. -Initiate cefepime as ordered -Monitor in stepdown unit
--- NOTE | 2018-08-05 09:27 | Pharmacy Consult Notes ---
[facility] Pharmacy VTE Monitoring - Patient Demographics Admission date: 08/05/18 Report Date: 08/05/18 Time: 09:26 Allergies/Adverse Reactions: Patient Allergies No Known Allergies Allergy (Verified 06/17/18 22:06) Height: 1.7 m Weight: 87.345 kg Patient Problems: Current Active Problems Atrial fibrillation with RVR (Acute) Hypoglycemia (Acute) Dyspnea (Acute) Peripheral edema (Acute) CHF (congestive heart failure) (Acute) - VTE Risk Labs: VTE Related Lab Results Hgb 11.6 g/dL (12.2-16.2) L 08/05/18 07:10 Hct 33.3 % (37.0-47.0) L 08/05/18 07:10 Plt Count 269 K/mm3 (142-424) 08/05/18 07:10 PT 22.1 seconds (9.4-11.8) H 08/05/18 07:10 INR 2.19 (0.9-1.1) H 08/05/18 07:10 BUN 31 mg/dL (7-18) H 08/05/18 07:10 Creatinine 1.83 mg/dL (0.55-1.02) H 08/05/18 07:10 Estimated Creat Clear 40 mL/min (0-300) 08/05/18 07:10 - Prophylaxis VTE Prophylaxis Ordered?: Yes Types of VTE Prophylaxis: Pharmacological Pharmacologic Type: Warfarin (WARFARIN RESTARTED, INR 2.19 ON ADMISSION, THERAPEUTIC LEVEL FOR PATIENT)
[2018-08-05 10:05] LABS: Albumin Level 2.4 gm/dL (3.4-5.0); Bilirubin,Direct 0.6 mg/dL (0.0-0.2); Bilirubin,Indirect 0.4 mg/dL (0.0-0.9); Total Protein,Serum 7.5 gm/dL (6.4-8.2)
[2018-08-05 11:25] LABS: Digoxin 1.36 ng/mL (1.15-2.56)
[2018-08-06 05:45] LABS: Basophils % 0.5 % (0.1-2.0); Eosinophils # 0.1 K/mm3 (0.0-0.4); Eosinophils % 3.1 % (0.1-12.0); Hemoglobin 9.7 g/dL (12.2-16.2); Lymphocytes # 0.4 K/mm3 (0.7-4.5); Lymphocytes % 16.3 K/mm3 (10-50); Mean Corpuscular HGB Conc 32.5 g/dL (31.8-35.4); Mean Corpuscular Hemoglobin 26.9 pg (27.0-31.2); Mean Corpuscular Volume 82.6 fl (81-99); Mean Platelet Volume 7.5 fl (7.4-10.4); Monocytes # 0.3 K/mm3 (0.1-1.0); Monocytes % 11.2 % (1.7-9.3); Neutrophils # 1.6 K/mm3 (1.8-7.8); Neutrophils % 68.8 % (37.0-80.0); Platelet Count 204 K/mm3 (142-424); Red Cell Distribution Width 17.8 % (11.5-17.5); White Blood Count 2.4 K/mm3 (4.8-10.8)
[2018-08-06 05:46] LABS: Hematocrit 29.8 % (37.0-47.0)
[2018-08-06 06:02] LABS: Albumin Level 1.9 gm/dL (3.4-5.0); Albumin/Globulin Ratio 0.5 (1.1-1.8); Anion Gap 9.8 mEq/L (5-15); Bilirubin,Total 0.8 mg/dL (0.2-1.0); Calcium 8.1 mg/dL (8.5-10.1); Phosphorous 2.8 mg/dL (2.4-4.9); Potassium 3.8 mmoL/L (3.5-5.1); Total Protein,Serum 5.9 gm/dL (6.4-8.2)
[2018-08-06 07:14] LABS: INR 1.99 (0.9-1.1); Prothrombin Time 20.1 seconds (9.4-11.8)
--- NOTE | 2018-08-06 07:55 | Progress Note ---
Internal Medicine - PN: Subj *Date: 08/06/18 *Time: 07:52 Interval history: Patient has no complaints this morning. She denies abdominal cramping or pain. She denies fevers or chills overnight. Blood sugars have still been running from 70s to low 100s. Exam Vital signs and Labs for Last 24 Hours: Temp Pulse Resp BP Pulse Ox 98.2 F 84 19 130/85 97 08/06/18 04:00 08/06/18 07:00 08/06/18 07:00 08/06/18 07:00 08/06/18 07:00 Laboratory Results - last 24 hr 08/05/18 07:10: PT 22.1 H, INR 2.19 H 08/05/18 07:10: Digoxin 1.24 08/05/18 07:10: Total Bilirubin 1.0, Direct Bilirubin 0.6 H, Indirect Bilirubin 0.4, AST 60 H, ALT 35, Alkaline Phosphatase 543 H, Total Protein 7.5, Albumin 2.4 L, Lipase 69 L 08/05/18 07:32: POC Glucose 129 H 08/05/18 08:25: POC Glucose 69 L 08/05/18 10:10: POC Glucose 102 08/05/18 10:58: Troponin I < 0.02, Digoxin 1.36 08/05/18 11:53: POC Glucose 59 L 08/05/18 12:50: POC Glucose 80 08/05/18 14:03: POC Glucose 118 H 08/05/18 16:10: POC Glucose 116 H 08/05/18 18:40: POC Glucose 86 08/05/18 20:36: POC Glucose 118 H 08/05/18 21:41: POC Glucose 89 08/05/18 22:12: POC Glucose 111 H 08/05/18 23:26: POC Glucose 93 08/06/18 00:04: POC Glucose 88 08/06/18 01:08: POC Glucose 84 08/06/18 02:09: POC Glucose 78 08/06/18 03:03: POC Glucose 100 08/06/18 03:59: POC Glucose 103 08/06/18 05:00: POC Glucose 87 08/06/18 05:25: WBC 2.4 L D, RBC 3.60 L, Hgb 9.7 L D, Hct 29.8 L, MCV 82.6, MCH 26.9 L, MCHC 32.5, RDW 17.8 H, Plt Count 204, MPV 7.5, Neut % (Auto) 68.8, Lymph % (Auto) 16.3, [place] % (Auto) 11.2 H, Eos % (Auto) 3.1, Baso % (Auto) 0.5, Neut # (Auto) 1.6 L, Lymph # (Auto) 0.4 L, [place] # (Auto) 0.3, Eos # (Auto) 0.1, Baso # (Auto) 0.0 08/06/18 05:25: Sodium 139, Potassium 3.8, Chloride 105, Carbon Dioxide 28, Anion Gap 9.8, BUN 27 H, Creatinine 1.71 H, Estimated Creat Clear 43, Estimated GFR 30 L, Est GFR ( Amer) 36 L, Glucose 91 D, Calcium 8.1 L, Phosphorus 2.8, Magnesium 2.0, Total Bilirubin 0.8, AST 45 H, ALT 31, Alkaline Phosphatase 437 H, Total Protein 5.9 L, Albumin 1.9 L D, Globulin 4.0 H, Albumin/Globulin Ratio 0.5 L 08/06/18 05:25: PT 20.1 H, INR 1.99 H 08/06/18 05:53: POC Glucose 94 08/06/18 06:51: POC Glucose 78 I & O for Last 24 hours: Intake & Output 08/03/18 08/04/18 08/05/18 08/06/18 11:59 11:59 11:59 11:59 Intake Total 1540 / 1540 Output Total 1300 / 1300 Balance 240 / 240 Weight 192 lb 9 oz 182 lb 5 oz Narrative: Patient is in no distress. Lungs are clear to auscultation. Heart rate is irregularly irregular. Abdomen is soft, nontender, with abdominal distention from ascites. Bowel sounds are present Assessment and Plan (1) SIRS (systemic inflammatory response syndrome) Current visit: Yes Status: Acute Category: Medical Code(s): R65.10 - Systemic inflammatory response syndrome (SIRS) of non-infectious origin without acute organ dysfunction (2) Atrial fibrillation with RVR Current visit: Yes Status: Chronic Category: Medical Code(s): I48.91 - Unspecified atrial fibrillation (3) Dyspnea Current visit: Yes Status: Acute Qualifiers: Dyspnea type: shortness of breath Qualified Code(s): R06.02 - Shortness of breath; R06.00 - Dyspnea, unspecified; R06.01 - Orthopnea Category: Medical Code(s): R06.00 - Dyspnea, unspecified (4) Hypoglycemia Current visit: Yes Status: Acute Category: Medical Code(s): E16.2 - Hypoglycemia, unspecified (5) Peripheral edema Current visit: Yes Status: Acute Category: Medical Code(s): R60.9 - Edema, unspecified (6) Cirrhosis Current visit: No Status: Chronic Qualifiers: Hepatic cirrhosis type: unspecified hepatic cirrhosis Ascites presence: unspecified Qualified Code(s): K74.60 - Unspecified cirrhosis of liver Category: Medical Code(s): K74.60 - Unspecified cirrhosis of liver (7) Hypothermia Current visit: Yes Status: Acute Category: Medical Code(s): T68.XXXA - Hypothermia, initial encounter (8) Hypertension Current visit: No Status: Chronic Qualifiers: Hypertension type: essential hypertension Qualified Code(s): I10 - Essential (primary) hypertension Category: Medical Code(s): I10 - Essential (primary) hypertension (9) Anemia of chronic disease Current visit: Yes Status: Acute Category: Medical Code(s): D63.8 - Anemia in other chronic diseases classified elsewhere (10) Stage III chronic kidney disease Current visit: Yes Status: Acute Category: Medical Code(s): N18.3 - Chronic kidney disease, stage 3 (moderate) - Assessment and plan all Dx Assessment and Plan for all problems:: 1. Continue cefepime for potentials SBP. GI consult today. Plan will be for paracentesis once INR will allow. 2. Start spironolactone. Discontinue Lasix and hydrochlorothiazide. BMP in a.m. 3. Continue dextrose drip. 4. Await blood cultures 5. Labs for both viral and autoimmune hepatitis have been drawn as a potential cause for her cirrhosis.
--- NOTE | 2018-08-06 09:47 | Consult Report ---
*Admission Date: 08/05/18 *Chief complaint: Cirrhosis *History of present illness: Cirrhosis. This is a 67 year old female with a complex med hx including CHF and Afib on anticoag. The pt presented on 08/05 with SOB and edema. She was found to have cirrhotic appearing liver and ascites with alk phos of >400. Bili was normal. INR was 2.1 on Coumadin. The pt was given diuretics and has had improvement. She does have a MELD of 21 on coumadin. She also presented with SIRS and has had hypothermia and labile blood glucose. GI consulted for assistance with cirrhosis management. [facility] History Medical History: Reports:: Arrhythmia, Congestive Heart Failure, Diabetes Melli tus Type 2, Hyperlipidemia, Hypertension Denies:: Cancer, Diabetes Mellitus Type 1, Internal Pacemaker, MRSA Laterality Cases: Right: Arthroscopy Shoulder Other Surgeries: Yes: Cholecystectomy, Tubal Ligation, Other. No: Pacemaker Amputation: No Fractures: No - *Social History Educational Level: Completed High School Smoking Status: Never smoker Alcohol Intake: never Occupational Status: disabled Housing: house Household Members: spouse - Psychiatric History Expresses thoughts of harming self/others: None Suicide Plan Description: No Plan *Family Hx:: Diabetes, Heart Attack, Hyperlipidemia, Hypertension Review of Systems - *Cardiovascular Reports leg swelling - *Respiratory Reports shortness of breath - *Neurologic Denies headache(s) Meds Home Medications Medication Instructions Recorded Confirmed Type Atorvastatin Calcium [Atorvastatin 20 mg PO DAILY 11/20/17 08/05/18 History 20mg Tab] Carvedilol [Carvedilol 25mg Tab] 25 mg PO BID 11/20/17 08/05/18 History Furosemide [Lasix 40mg tab] 40 mg PO DAILY 11/20/17 08/05/18 History Hydralazine HCl [Hydralazine HCl 50 mg PO TID 11/20/17 08/05/18 History 25mg Tablet] Insulin Aspart [Novolog] 8 unit SQ TID 11/20/17 08/05/18 History Insulin Glargine,Hum.rec.anlog 15 unit SQ DAILY 11/20/17 08/05/18 History [Lantus Insulin 100units/mL 10mL vial] Potassium Chloride [K-Tab ER 20 20 meq PO BID 11/20/17 08/05/18 History mEq] cloNIDine HCl [cloNIDine 0.1mg 0.3 mg PO TID 11/20/17 08/05/18 History Tablet] Digoxin 125 mcg PO DAILY 08/05/18 08/05/18 History Losartan/Hydrochlorothiazide 1 tab PO DAILY 08/05/18 08/05/18 History [Losartan-Hctz 50-12.5 mg Tab] Warfarin Sodium 3 mg PO DAILY 08/05/18 08/05/18 History Allergies Allergy/AdvReac Type Severity Reaction Status Date / Time No Known Allergies Allergy Verified 06/17/18 22:06 Exam Vital signs and Labs for Last 24 Hours: Temp Pulse Resp BP Pulse Ox 98.3 F 83 16 167/93 H 95 08/06/18 09:00 08/06/18 09:24 08/06/18 09:00 08/06/18 09:00 08/06/18 09:00 Laboratory Results - last 24 hr 08/05/18 07:10: Total Bilirubin 1.0, Direct Bilirubin 0.6 H, Indirect Bilirubin 0.4, AST 60 H, ALT 35, Alkaline Phosphatase 543 H, Total Protein 7.5, Albumin 2.4 L, Lipase 69 L 08/05/18 10:10: POC Glucose 102 08/05/18 10:58: Troponin I < 0.02, Digoxin 1.36 08/05/18 11:53: POC Glucose 59 L 08/05/18 12:50: POC Glucose 80 08/05/18 14:03: POC Glucose 118 H 08/05/18 16:10: POC Glucose 116 H 08/05/18 18:40: POC Glucose 86 08/05/18 20:36: POC Glucose 118 H 08/05/18 21:41: POC Glucose 89 08/05/18 22:12: POC Glucose 111 H 08/05/18 23:26: POC Glucose 93 08/06/18 00:04: POC Glucose 88 08/06/18 01:08: POC Glucose 84 08/06/18 02:09: POC Glucose 78 08/06/18 03:03: POC Glucose 100 08/06/18 03:59: POC Glucose 103 08/06/18 05:00: POC Glucose 87 08/06/18 05:25: WBC 2.4 L D, RBC 3.60 L, Hgb 9.7 L D, Hct 29.8 L, MCV 82.6, MCH 26.9 L, MCHC 32.5, RDW 17.8 H, Plt Count 204, MPV 7.5, Neut % (Auto) 68.8, Lymph % (Auto) 16.3, [place] % (Auto) 11.2 H, Eos % (Auto) 3.1, Baso % (Auto) 0.5, Neut # (Auto) 1.6 L, Lymph # (Auto) 0.4 L, [place] # (Auto) 0.3, Eos # (Auto) 0.1, Baso # (Auto) 0.0 08/06/18 05:25: Sodium 139, Potassium 3.8, Chloride 105, Carbon Dioxide 28, Anion Gap 9.8, BUN 27 H, Creatinine 1.71 H, Estimated Creat Clear 43, Estimated GFR 30 L, Est GFR ( Amer) 36 L, Glucose 91 D, Calcium 8.1 L, Phosphorus 2.8, Magnesium 2.0, Total Bilirubin 0.8, AST 45 H, ALT 31, Alkaline Phosphatase 437 H, Total Protein 5.9 L, Albumin 1.9 L D, Globulin 4.0 H, Albumin/Globulin Ra fernanda 0.5 L 08/06/18 05:25: PT 20.1 H, INR 1.99 H 08/06/18 05:53: POC Glucose 94 08/06/18 06:51: POC Glucose 78 I & O for Last 24 hours: Intake & Output 08/03/18 08/04/18 08/05/18 08/06/18 23:59 23:59 23:59 23:59 Intake Total 1160 / 1160 380 / 380 Output Total 700 / 700 600 / 600 Balance 460 / 460 -220 / -220 Weight 192 lb 9 oz 182 lb 5 oz - Constitutional no acute distress - *Routine HEENT Exam Head: Present: normocephalic - *Routine Respiratory Exam Present: CTA bilaterally - *Routine Cardiovascular Exam Present: irregular rhythm - *Routine Abdominal Exam Present: soft, distended - *Routine Extremities Exam Absent: cyanosis, clubbing, edema - *Routine Skin Exam Present: warm. Absent: rash Internal Medicine - CN: Reslt - Labs CBC & Chem 7: 08/06/18 05:25 08/06/18 05:25 Labs: Short CBC 08/06/18 Range/Units 05:25 WBC 2.4 L D (4.8-10.8) K/mm3 Hgb 9.7 L D (12.2-16.2) g/dL Hct 29.8 L (37.0-47.0) % Plt Count 204 (142-424) K/mm3 BMP 08/06/18 05:25 Sodium 139 Potassium 3.8 Chloride 105 Carbon Dioxide 28 BUN 27 H Creatinine 1.71 H Glucose 91 D Calcium 8.1 L Cardiac Enzymes 08/05/18 Range/Units 10:58 Troponin I < 0.02 (0.00-0.06) ng/ml Liver Function 08/05/18 08/06/18 Range/Units 07:10 05:25 Total Bilirubin 1.0 0.8 (0.2-1.0) mg/dL Direct Bilirubin 0.6 H (0.0-0.2) mg/dL AST 60 H 45 H (15-37) U/L ALT 35 31 (12-78) U/L Alkaline Phosphatase 543 H 437 H (46-116) U/L Albumin 2.4 L 1.9 L D (3.4-5.0) gm/dL - Impressions 1. New dx Cirrhosis. - I do feel the pt has underlying liver disease and with elevated Alk phos likely autoimmune or PBC. I will order full lab work. she will need outpt f/u and eval. Given she is responding to diuretics I would avoid paracentisis and continue with combination Lasix/Spironolactone. I would resume anticoagulation to avoid complications of AFib. She can f/u in specialty clinic upon discharge. Assessment and Plan (1) SIRS (systemic inflammatory response syndrome) Current visit: Yes Status: Acute Category: Medical Code(s): R65.10 - Systemic inflammatory response syndrome (SIRS) of non-infectious origin without acute organ dysfunction (2) Atrial fibrillation with RVR Current visit: Yes Status: Chronic Category: Medical Code(s): I48.91 - Unspecified atrial fibrillation (3) Dyspnea Current visit: Yes Status: Acute Qualifiers: Dyspnea type: shortness of breath Qualified Code(s): R06.02 - Shortness of breath; R06.00 - Dyspnea, unspecified; R06.01 - Orthopnea Category: Medical Code(s): R06.00 - Dyspnea, unspecified (4) Hypoglycemia Current visit: Yes Status: Acute Category: Medical Code(s): E16.2 - Hypoglycemia, unspecified (5) Peripheral edema Current visit: Yes Status: Acute Category: Medical Code(s): R60.9 - Edema, unspecified (6) Cirrhosis Current visit: No Status: Chronic Qualifiers: Hepatic cirrhosis type: unspecified hepatic cirrhosis Ascites presence: unspecified Qualified Code(s): K74.60 - Unspecified cirrhosis of liver Category: Medical Code(s): K74.60 - Unspecified cirrhosis of liver (7) Hypothermia Current visit: Yes Status: Acute Category: Medical Code(s): T68.XXXA - Hypothermia, initial encounter (8) Hypertension Current visit: No Status: Chronic Qualifiers: Hypertension type: essential hypertension Qualified Code(s): I10 - Essent ial (primary) hypertension Category: Medical Code(s): I10 - Essential (primary) hypertension (9) Anemia of chronic disease Current visit: Yes Status: Acute Category: Medical Code(s): D63.8 - Anemia in other chronic diseases classified elsewhere (10) Stage III chronic kidney disease Current visit: Yes Status: Acute Category: Medical Code(s): N18.3 - Chronic kidney disease, stage 3 (moderate)
[2018-08-07 06:26] LABS: INR 1.77 (0.9-1.1); Prothrombin Time 17.9 seconds (9.4-11.8)
[2018-08-07 06:43] LABS: Potassium 4.2 mmoL/L (3.5-5.1)
[2018-08-07 06:58] LABS: Albumin Level 1.8 gm/dL (3.4-5.0); Bilirubin,Direct 0.6 mg/dL (0.0-0.2); Bilirubin,Indirect 0.4 mg/dL (0.0-0.9); Calcium 7.9 mg/dL (8.5-10.1); Total Protein,Serum 5.9 gm/dL (6.4-8.2)
--- NOTE | 2018-08-07 07:08 | Progress Note ---
Internal Medicine - PN: Subj *Date: 08/07/18 *Time: 07:06 Interval history: Patient has no new complaints this morning. She does report cramping in the abdomen. She has not had vomiting or diarrhea. She feels like her abdomen may be slightly more distended this morning than it was yesterday. GI evaluation yesterday ordered additional labs. Patient had improvement in her ascites with diuretics and it was recommended to avoid paracentesis at this time. Patient's blood sugars are remaining around 100 Exam Vital signs and Labs for Last 24 Hours: Temp Pulse Resp BP Pulse Ox 98.6 F 80 18 164/107 H 93 L 08/07/18 06:00 08/07/18 06:00 08/07/18 06:00 08/07/18 06:00 08/07/18 06:00 Laboratory Results - last 24 hr 08/05/18 07:13: POC Glucose 41 L* 08/05/18 09:00: POC Glucose 67 L 08/06/18 05:25: PT 20.1 H, INR 1.99 H 08/06/18 08:23: POC Glucose 79 08/06/18 09:59: POC Glucose 106 08/06/18 10:43: Ammonia 19 08/06/18 11:44: POC Glucose 96 08/06/18 13:07: POC Glucose 139 H 08/06/18 15:21: POC Glucose 102 08/06/18 17:02: POC Glucose 122 H 08/06/18 20:53: POC Glucose 100 08/06/18 23:48: POC Glucose 120 H 08/07/18 03:59: POC Glucose 95 08/07/18 06:10: PT 17.9 H, INR 1.77 H I & O for Last 24 hours: Intake & Output 08/04/18 08/05/18 08/06/18 08/07/18 11:59 11:59 11:59 11:59 Intake Total 1540 / 1540 2468 / 2468 Output Total 1300 / 1300 1950 / 1950 Balance 240 / 240 518 / 518 Weight 192 lb 9 oz 182 lb 5 oz 199 lb 1 oz Narrative: Patient is in no distress. Lungs are clear. Heart rate is irregularly irregular. Abdomen reveals mild distention but is soft with active bowel sounds. Extremities are without edema Assessment and Plan (1) SIRS (systemic inflammatory response syndrome) Current visit: Yes Status: Acute Category: Medical Code(s): R65.10 - Systemic inflammatory response syndrome (SIRS) of non-infectious origin without acute organ dysfunction (2) Atrial fibrillation with RVR Current visit: Yes Status: Chronic Category: Medical Code(s): I48.91 - Unspecified atrial fibrillation (3) Dyspnea Current visit: Yes Status: Acute Qualifiers: Dyspnea type: shortness of breath Qualified Code(s): R06.02 - Shortness of breath; R06.00 - Dyspnea, unspecified; R06.01 - Orthopnea Category: Medical Code(s): R06.00 - Dyspnea, unspecified (4) Hypoglycemia Current visit: Yes Status: Acute Category: Medical Code(s): E16.2 - Hypoglycemia, unspecified (5) Peripheral edema Current visit: Yes Status: Acute Category: Medical Code(s): R60.9 - Edema, unspecified (6) Cirrhosis Current visit: No Status: Chronic Qualifiers: Hepatic cirrhosis type: unspecified hepatic cirrhosis Ascites presence: unspecified Qualified Code(s): K74.60 - Unspecified cirrhosis of liver Category: Medical Code(s): K74.60 - Unspecified cirrhosis of liver (7) Hypothermia Current visit: Yes Status: Acute Category: Medical Code(s): T68.XXXA - Hypothermia, initial encounter (8) Hypertension Current visit: No Status: Chronic Qualifiers: Hypertension type: essential hypertension Qualified Code(s): I10 - Essential (primary) hypertension Category: Medical Code(s): I10 - Essential (primary) hypertension (9) Anemia of chronic disease Current visit: Yes Status: Acute Category: Medical Code(s): D63.8 - Anemia in other chronic diseases classified elsewhere (10) Stage III chronic kidney disease Current visit: Yes Status: Acute Category: Medical Code(s): N18.3 - Chronic kidney disease, stage 3 (moderate) - Assessment and plan all Dx Assessment and Plan for all problems:: 1. Await blood cultures and continue antibiotics for now 2. Continue close monitoring of blood sugars. Hold all hypoglycemic agents. Decrease dextrose drip to 50 mL's per hour 3. Continue close blood pressure monitoring, serial liver functions, serial INRs
[2018-08-07 07:14] LABS: Anion Gap 12.2 mEq/L (5-15)
[2018-08-07 10:22] LABS: Hepatitis B Core Antibody IgM Negative (Negative); Hepatitis B Surface Antigen Negative (Negative)
[2018-08-07 14:15] LABS: Anti-Smith Antibody <0.2 AI (0.0-0.9)
[2018-08-07 15:53] LABS: Hepatitis C Antibody 0.6 s/co ratio (0.0-0.9)
[2018-08-07 15:55] LABS: Angiotensin Converting Enzyme 257 U/L (14-82)
--- NOTE | 2018-08-08 06:57 | Progress Note ---
Internal Medicine - PN: Subj *Date: 08/08/18 *Time: 06:55 Interval history: Patient is without complaints this morning. She confirms her appetite is still not the best. Blood sugars have remained in the low to mid 100s. Exam Vital signs and Labs for Last 24 Hours: Temp Pulse Resp BP Pulse Ox 98.8 F 75 16 131/93 H 98 08/08/18 04:00 08/08/18 04:00 08/08/18 04:00 08/08/18 04:00 08/08/18 04:00 Laboratory Results - last 24 hr 08/06/18 05:25: IgG 1659 H, NAYAN Comment Comment, c-ANCA Antibody <1:20, Atypical p-ANCA <1:20, p-ANCA Antibody <1:20, FELIZ-1 Antibody <0.2, SS-A Antibody 0.3, SS-B Antibody <0.2, Sm (Bales) Antibody <0.2, [employer] DEPARTMENT MANAGER Antibody <0.2, Scl-70 Scleroderma Ab 0.2, Double Strand DNA Ab 1, Chromatin Antibody <0.2, Centromere B Antibody <0.2, Mitochondria M2 Ab <20.0, Anti-Smooth Muscle Ab 20 H, Liver/Kid Microsomes Ab <1.0, Hepatitis A IgM Ab Negative, Hep Bs Antigen Negative, Hep B Core IgM Ab Negative, Hepatitis C Antibody 0.6 08/06/18 10:43: Angiotensin Convert Enz 257 H, Tumor Marker AFP 1.4 08/07/18 06:10: Sodium 140, Potassium 4.2, Chloride 106, Carbon Dioxide 26, Anion Gap 12.2, BUN 26 H, Creatinine 1.62 H, Estimated Creat Clear 49, Estimated GFR 32 L, Est GFR ( Amer) 39 L, Glucose 98, Calcium 7.9 L, Total Bilirubin 1.0, Direct Bilirubin 0.6 H, Indirect Bilirubin 0.4, AST 43 H, ALT 28, Alkaline Phosphatase 431 H, Total Protein 5.9 L, Albumin 1.8 L 08/07/18 06:10: Hemoglobin A1c 5.2 08/07/18 08:07: POC Glucose 139 H 08/07/18 12:09: POC Glucose 141 H 08/07/18 17:02: POC Glucose 101 08/07/18 20:58: POC Glucose 114 H 08/08/18 06:00: POC Glucose 91 I & O for Last 24 hours: Intake & Output 08/05/18 08/06/18 08/07/18 08/08/18 11:59 11:59 11:59 11:59 Intake Total 1540 / 1540 2468 / 2468 Output Total 1300 / 1300 1950 / 1950 Balance 240 / 240 518 / 518 Weight 192 lb 9 oz 182 lb 5 oz 199 lb 1 oz 197 lb 8 oz Microbiology Reports for the Last 24 Hours: Microbiology 08/05/18 07:10 Blood Blood Culture - Preliminary NO GROWTH AFTER 48 HOURS 08/05/18 07:10 Blood Blood Culture - Preliminary NO GROWTH AFTER 48 HOURS Narrative: Patient is awake and alert. Lungs are clear. Heart is irregularly irregular. Abdomen is soft with mild distention from ascites. Less distended than yesterday. Extremities are warm to the touch and there is no edema Assessment and Plan (1) SIRS (systemic inflammatory response syndrome) Current visit: Yes Status: Acute Category: Medical Code(s): R65.10 - Systemic inflammatory response syndrome (SIRS) of non-infectious origin without acute organ dysfunction (2) Atrial fibrillation with RVR Current visit: Yes Status: Chronic Category: Medical Code(s): I48.91 - Unspecified atrial fibrillation (3) Dyspnea Current visit: Yes Status: Acute Qualifiers: Dyspnea type: shortness of breath Qualified Code(s): R06.02 - Shortness of breath; R06.00 - Dyspnea, unspecified; R06.01 - Orthopnea Category: Medical Code(s): R06.00 - Dyspnea, unspecified (4) Hypoglycemia Current visit: Yes Status: Acute Category: Medical Code(s): E16.2 - Hypoglycemia, unspecified (5) Peripheral edema Current visit: Yes Status: Acute Category: Medical Code(s): R60.9 - Edema, unspecified (6) Cirrhosis Current visit: No Status: Chronic Qualifiers: Hepatic cirrhosis type: unspecified hepatic cirrhosis Ascites presence: unspecified Qualified Code(s): K74.60 - Unspecified cirrhosis of liver Category: Medical Code(s): K74.60 - Unspecified cirrhosis of liver (7) Hypothermia Current visit: Yes Status: Acute Category: Medical Code(s): T68.XXXA - Hypothermia, initial encounter (8) Hypertension Current visit: No Status: Chronic Qualifiers: Hypertension type: essential hypertension Qualified Code(s): I10 - Essential (primary) hypertension Category: Medical Code(s): I10 - Essential (primary) hypertension (9) Anemia of chronic disease Current visit: Yes Status: Acute Category: Medical Code(s): D63.8 - Anemia in other chronic diseases classified elsewhere (10) Stage III chronic kidney disease Current visit: Yes Status: Acute Category: Medical Code(s): N18.3 - Chronic kidney disease, stage 3 (moderate) - Assessment and plan all Dx Assessment and Plan for all problems:: 1. DC IV fluids and see if patient can maintain blood sugars greater than 100 2. Continue diuresis.
[2018-08-08 07:21] LABS: INR 1.9 (0.9-1.1); Prothrombin Time 19.2 seconds (9.4-11.8)
[2018-08-08 07:24] LABS: Albumin Level 1.7 gm/dL (3.4-5.0); Anion Gap 11.8 mEq/L (5-15); Bilirubin,Direct 0.6 mg/dL (0.0-0.2); Bilirubin,Indirect 0.4 mg/dL (0.0-0.9); Potassium 3.8 mmoL/L (3.5-5.1); Total Protein,Serum 5.8 gm/dL (6.4-8.2)
--- NOTE | 2018-08-08 08:20 | Progress Note ---
Internal Medicine - PN: Subj *Date: 08/08/18 *Time: 08:20 Exam Vital signs and Labs for Last 24 Hours: Temp Pulse Resp BP Pulse Ox 98.5 F 87 17 142/95 H 97 08/08/18 07:24 08/08/18 07:24 08/08/18 07:24 08/08/18 07:24 08/08/18 07:24 Laboratory Results - last 24 hr 08/06/18 05:25: IgG 1659 H, NAYAN Comment Comment, c-ANCA Antibody <1:20, Atypical p-ANCA <1:20, p-ANCA Antibody <1:20, FELIZ-1 Antibody <0.2, SS-A Antibody 0.3, SS-B Antibody <0.2, Sm (Bales) Antibody <0.2, PARTS SALES MANAGER Antibody <0.2, Scl-70 Scleroderma Ab 0.2, Double Strand DNA Ab 1, Chromatin Antibody <0.2, Centromere B Antibody <0.2, Mitochondria M2 Ab <20.0, Anti-Smooth Muscle Ab 20 H, Liver/Kid Microsomes Ab <1.0, Hepatitis A IgM Ab Negative, Hep Bs Antigen Negative, Hep B Core IgM Ab Negative, Hepatitis C Antibody 0.6 08/06/18 10:43: Angiotensin Convert Enz 257 H, Tumor Marker AFP 1.4 08/07/18 08:07: POC Glucose 139 H 08/07/18 12:09: POC Glucose 141 H 08/07/18 17:02: POC Glucose 101 08/07/18 20:58: POC Glucose 114 H 08/08/18 06:00: POC Glucose 91 08/08/18 07:00: PT 19.2 H, INR 1.90 H 08/08/18 07:00: Sodium 141, Potassium 3.8, Chloride 107, Carbon Dioxide 26, Anion Gap 11.8, BUN 23 H, Creatinine 1.52 H, Estimated Creat Clear 52, Estimated GFR 34 L, Est GFR ( Amer) 42 L, Glucose 96, Calcium 8.0 L, Total Bilirubin 1.0, Direct Bilirubin 0.6 H, Indirect Bilirubin 0.4, AST 40 H, ALT 29, Alkaline Phosphatase 414 H, Total Protein 5.8 L, Albumin 1.7 L I & O for Last 24 hours: Intake & Output 08/05/18 08/06/18 08/07/1818 23:59 23:59 23:59 23:59 Intake Total 1160 / 1160 980 / 980 1868 / 1868 240 / 240 Output Total 700 / 700 1850 / 1850 700 / 700 Balance 460 / 460 -870 / -870 1168 / 1168 240 / 240 Weight 87.345 kg 82.696 kg 90.293 kg 89.584 kg Microbiology Reports for the Last 24 Hours: Microbiology 08/05/18 07:10 Blood Blood Culture - Preliminary NO GROWTH AFTER 48 HOURS 08/05/18 07:10 Blood Blood Culture - Preliminary NO GROWTH AFTER 48 HOURS Assessment and Plan (1) SIRS (systemic inflammatory response syndrome) Current visit: Yes Status: Acute Category: Medical Code(s): R65.10 - Systemic inflammatory response syndrome (SIRS) of non-infectious origin without acute organ dysfunction (2) Atrial fibrillation with RVR Current visit: Yes Status: Chronic Category: Medical Code(s): I48.91 - Unspecified atrial fibrillation (3) Dyspnea Current visit: Yes Status: Acute Qualifiers: Dyspnea type: shortness of breath Qualified Code(s): R06.02 - Shortness of breath; R06.00 - Dyspnea, unspecified; R06.01 - Orthopnea Category: Medical Code(s): R06.00 - Dyspnea, unspecified (4) Hypoglycemia Current visit: Yes Status: Acute Category: Medical Code(s): E16.2 - Hypoglycemia, unspecified (5) Peripheral edema Current visit: Yes Status: Acute Category: Medical Code(s): R60.9 - Edema, unspecified (6) Cirrhosis Current visit: No Status: Chronic Qualifiers: Hepatic cirrhosis type: unspecified hepatic cirrhosis Ascites presence: unspecified Qualified Code(s): K74.60 - Unspecified cirrhosis of liver Category: Medical Code(s): K74.60 - Unspecified cirrhosis of liver (7) Hypothermia Current visit: Yes Status: Acute Category: Medical Code(s): T68.XXXA - Hypothermia, initial encounter (8) Hypertension Current visit: No Status: Chronic Qualifiers: Hypertension type: essential hypertension Qualified Code(s): I10 - Essential (primary) hypertension Category: Medical Code(s): I10 - Essential (primary) hypertension (9) Anemia of chronic disease Current visit: Yes Status: Acute Category: Medical Code(s): D63.8 - Anemia in other chronic diseases classified elsewhere (10) Stage III chronic kidney disease Current visit: Yes Status: Acute Category: Medical Code(s): N18.3 - Chronic kidney disease, stage 3 (moderate) The patient's infection will respond to the chosen ABx?: Yes Is the patient receiving the right drug, dose, and route?: Yes Could a more targeted ABx be ordered?: No (CULTURES SHOW NO GROWTH AT THIS TIME)
--- NOTE | 2018-08-09 16:52 | Discharge Summary ---
General - General Admission date:: 08/07/18 Discharge date: 08/08/18 [facility] HPI: Ms. Burk is a 67yo F with Hx of DM, A. fib on Coumadin, congestive heart failure, who presents to the ER due to diaphoresis and shortness of breath. She states that for the past several weeks (2-3) she has had increased abdominal girth and distention, worsening edema in her legs, and worsening shortness of breath. She denies any cough or chest pain. Time of presentation she reports the following" (Dr. Cleary's HPI) "Awakened 1 hour (before presentation) with shortness of breath and sweatiness. She denies chest pain. States she last checked her blood sugar at 4:30 AM. States she normally gets up that early. Her blood sugar was in the 200s and she gave herself 12 units of NovoLog insulin. She did not eat. She did not recheck her blood sugar when she awakened an hour ago. She does not feel cold, in fact she says she feels hot, although her temperature in the emergency department is low. She has not had a documented fever. Denies cough, vomiting, diarrhea, any pain. "Has had increased swelling of her feet for several days. Saw her primary care doctor on 3 days ago. Lasix dose increased from 40 mg a day to 80 mg a day, has not noticed much change in the swelling." Patient currently admitted to floor service, due to persistent hypothermia will escalate to stepdown. Continues to require bear hugger though body temperature improving. Complains of abdominal distention, fullness, decreased appetite, intermittent shortness of breath. Denies chest pain, nausea or vomiting, diarrhea, new bruising or bleeding Family at bedside does say she has been a "little more confused" lately. Hospital Course Hospital Course: Patient was admitted and diagnosed with Sirs. Patient's hypothermia was treated with bear hugger. Hypotension was treated with IV fluids. Patient was started on broad-spectrum antibiotics over concern of spontaneous bacterial peritonitis. By the afternoon on the day of admission patient's temperature had stabilized. Patient was continued on antibiotics the remainder of GI was consulted due to the patient's cirrhosis. Patient was started on spironolactone 25 mg twice daily in addition to her Lasix. Ascites levels fluctuated during hospitalization. Labs were ordered in search of potential autoimmune disease. Patient's hepatitis panel was negative. Patient will have follow-up in the GI clinic after discharge. Patient's hypoglycemia persisted to the first 72 hours of admission. Patient required continuous infusion of intravenous dextrose to maintain blood sugars in the 90s to low 100s. All diabetic agents were discontinued. On the day of discharge patient had maintain blood sugar above 100 the entire day without use of intravenous solutions. Appetite remained poor throughout hospitalization. Patient was informed she did not need to follow any specific diet at this time. On August 08 patient was discharged home. She will follow-up in my office in 48 hours. Follow-up in the GI clinic has been arranged Objective Vital signs: Temp Pulse Resp BP Pulse Ox 98.6 F 78 18 130/83 99 08/08/18 15:54 08/08/18 15:54 08/08/18 15:54 08/08/18 15:54 08/08/18 15:54 Results Labs on day of discharge: Labs from last 24 hours 08/08/18 08/08/18 16:37 11:11 POC Glucose 153 H 121 H Preliminary micro results at discharge 08/05/18 07:10 Blood Culture - Preliminary Blood NO GROWTH AFTER 48 HOURS 08/05/18 07:10 Blood Culture - Preliminary Blood NO GROWTH AFTER 48 HOURS DS: Diagnosis - Discharge Diagnosis (1) SIRS (systemic inflammatory response syndrome) Status: Acute (2) Atrial fibrillation with RVR Status: Chronic (3) Dyspnea Status: Acute (4) Hypoglycemia Status: Acute (5) Peripheral edema Status: Acute (6) Cirrhosis Status: Chronic (7) Hypothermia Status: Acute (8) Hypertension Status: Chronic (9) Anemia of chronic disease Status: Acute (10) Stage III chronic kidney disease Status: Acute Discharge Plan - Patient Discharge Instructions ACTIVITY: Continue current activity DIET: continue same diet Patient Instructions: Congestive Heart Failure (Alternative Therapy), Hypoglycemia, Heart Failure, Hypothermia, DI for Shortness of Breath, DI for Peripheral Edema -- Bilateral, Low-Sodium Diet, Warfarin, Anticoagulation Care - Follow up Plan Follow up with: Rafi Albrecht MD [Primary Care Provider] - 08/10/18 1:00 pm Disposition: Home, Self-Nursing Home Medications: Home Medications Medication Instructions Recorded Confirmed Type Atorvastatin Calcium [Atorvastatin 20 mg PO DAILY 11/20/17 08/05/18 History 20mg Tab] Carvedilol [Carvedilol 25mg Tab] 25 mg PO BID 11/20/17 08/05/18 History Furosemide [Lasix 40mg tablet] 40 mg PO DAILY 11/20/17 08/05/18 History Hydralazine HCl [Hydralazine HCl 50 mg PO TID 11/20/17 08/05/18 History 25mg Tablet] Potassium Chloride [K-Tab ER 20 20 meq PO BID 11/20/17 08/05/18 History mEq] cloNIDine HCl [cloNIDine 0.1mg 0.3 mg PO TID 11/20/17 08/05/18 History Tablet] Digoxin 125 mcg PO DAILY 08/05/18 08/05/18 History Warfarin Sodium 3 mg PO DAILY 08/05/18 08/05/18 History Prescriptions/Medication Reconciliation: New Losartan Potassium 50 mg PO DAILY #30 tablet Spironolactone [Aldactone 25mg Tab] 25 mg PO BID #60 tablet Continue Atorvastatin Calcium [Atorvastatin 20mg Tab] 20 mg PO DAILY Potassium Chloride [K-Tab ER 20 mEq] 20 meq PO BID Hydralazine HCl [Hydralazine HCl 25mg Tablet] 50 mg PO TID Carvedilol [Carvedilol 25mg Tab] 25 mg PO BID Furosemide [Lasix 40mg tablet] 40 mg PO DAILY cloNIDine HCl [cloNIDine 0.1mg Tablet] 0.3 mg PO TID Digoxin 125 mcg PO DAILY Warfarin Sodium 3 mg PO DAILY Discontinued Insulin Glargine,Hum.rec.anlog [Lantus Insulin 100units/mL 10mL vial] 15 unit SQ DAILY Insulin Aspart [Novolog] 8 unit SQ TID Losartan/Hydrochlorothiazide [Losartan-Hctz 50-12.5 mg Tab] 1 tab PO DAILY
== END 2018-08-08 18:00 | disposition home or self-care (01) ==
LOC: 2ND 06:50 → ER 06:50 → 2ND 08:53
PROVIDERS: ADMIT Internal Medicine Adolescent Medicine; ATTEND Family Medicine
CPT/HCPCS: 36415; 71010; 71045; 76700; 80048; 80053; 80074; 80076; 80162; 82103; 82104; 82105; 82140; 82164; 82784; 82962; 83036; 83516; 83605; 83690; 83735; 83880; 84100; 84484; 85025; 85610; 86225; 86235; 86255; 86256; 86376; 87040; 93005; 96374; 96375; 96376; 99285; G0378

== ENCOUNTER → 2018-08-20 09:01 | Outpatient (POV) | payer MEDICARE, SELFPAY | PROVIDERS: Visit Provider Nurse Practitioner Acute Care | DX: Z00.00 Encounter for general adult medical examination without abnormal findings (principal) ==

== ENCOUNTER 2018-09-04 11:00 | Outpatient (RCR) | payer MEDICARE, SELFPAY | END 2018-09-04 11:05 | disposition home or self-care (01) | LOC: PT 11:00 | PROVIDERS: Family Provider Family Medicine; PCP Family Medicine; Visit Provider Orthopaedic Surgery | DX: M75.101 Unspecified rotator cuff tear or rupture of right shoulder, not specified as traumatic (principal) | CPT/HCPCS: 97010; 97014; 97016; 97110; 97140; 97163; G0283 ==

== ENCOUNTER → 2018-09-11 09:42 | Outpatient (CLI) | payer MEDICARE, SELFPAY ==
--- NOTE | 2018-09-11 09:52 | NVE_ITS ---
Venous Exam Indications: 729.5 Pain in limb. IMPRESSIONS 1. There is no evidence of significant Reflux. 2. No evidence of deep or superficial vein thrombosis involving the left lower extremity 3. 3.1 cm lymph node seen left groin. Left lower extremity venous duplex evaluation. Doppler flow study including spectral analysis, color and meade scale imaging. Location: Vascular laboratory. Patient status: Outpatient. Tables: Venous flow and imaging: + +-------+ + Location Overall Flow properties + +-------+ + Left common femoral Patent Normal phasicity; spontaneous; normal augmentation; compressible + +-------+ + Left saphenofemoral junction Patent Compressible + +-------+ + Left profunda femoral Patent Compressible + +-------+ + Left femoral Patent Normal phasicity; spontaneous; normal augmentation; compressible + +-------+ + Left greater saphenous Patent Normal phasicity; spontaneous; normal augmentation; compressible + +-------+ + Left popliteal Patent Normal phasicity; spontaneous; normal augmentation; compressible + +-------+ + Left posterior tibial Patent Compressible + +-------+ + Left peroneal Patent Compressible + +-------+ + Left gastrocnemius Patent Compressible + +-------+ + Left soleal Patent Compressible + +-------+ + (Report amended ) Electronically signed by: Micha Coronel [id number]
== END ==
PROVIDERS: PCP Family Medicine; Visit Provider Emergency Medicine
DX: M79.662 Pain in left lower leg (principal)
CPT/HCPCS: 93971

== ENCOUNTER → 2018-10-18 08:21 | Outpatient (CLI) | payer MEDICARE, SELFPAY ==
[2018-10-18 09:03] LABS: Anion Gap 15.4 mEq/L (5-15); Blood Urea Nitrogen 49 mg/dL (7-18); Calcium 9.3 mg/dL (8.5-10.1); Carbon Dioxide 22 mmol/L (21.0-32.0); Chloride 104 mmol/L (98-107); Creatinine,Serum 2.53 mg/dL (0.55-1.02); Estimated Glomerular Filt Rate 19 ml/min (>60); GFR (African American) 23 ML/MIN (>60); Glucose 86 mg/dL (74-106); Potassium 4.4 mmoL/L (3.5-5.1); Sodium 137 mmol/L (136-145)
== END ==
PROVIDERS: Visit Provider Internal Medicine Gastroenterology
DX: N17.9 Acute kidney failure, unspecified (principal)
CPT/HCPCS: 36415; 80048

== ENCOUNTER 2018-11-06 09:52 | Inpatient (IN) ==
--- NOTE | 2018-11-06 10:25 | Emergency Department Note ---
ED Disposition Clinical Impression: Hypercalcemia, Confusion Cirrhosis of liver with ascites Qualifiers: Hepatic cirrhosis type: unspecified hepatic cirrhosis Qualified Code(s): K74.60 - Unspecified cirrhosis of liver; R18.8 - Other ascites Acute pancreatitis Qualifiers: Pancreatitis type: unspecified pancreatitis type Acute pancreatitis complication: no infection or necrosis Qualified Code(s): K85.90 - Acute pancreatitis without necrosis or infection, unspecified Disposition: Admitted as Observation Condition on Discharge: Fair - Critical Care Critical Care Time: Yes Attestation: On 11/06/18, the high probability of a clinically significant, sudden or life threatening deterioration of the following system(s) required my full and direct attention, intervention and personal management. The time I documented below is in addition to time spent performing reported procedures but includes the following listed in this critical care notation. Vital system(s) involved:: Metabolic Failure My critical care processes included: Assessment & monitoring of V/S, Initial and Re-exams, Data Review/Interpretation, Coordinating Care, Medication Orders and management, Documentation Medical Decision Making - Rudy Inquiry Pt receiving controlled substance: No Vital Signs: 11/06/18 10:07 11/06/18 10:49 11/06/18 11:41 Temperature 97.6 F Temperature Source Oral Pulse Rate [Left Radial] 55 L 54 L 52 L Respiratory Rate 18 Blood Pressure [Right Arm] 194/103 H 170/117 H 198/105 H Blood Pressure Mean [Right Arm] 133 134 136 Blood Pressure Source [Right Arm] Automatic Cuff Automatic Cuff Automatic Cuff Blood Pressure Position [Right Arm] Sitting Sitting Supine 02 Sat by Pulse Oximetry 96 94 L 97 Oxygen Delivery Method Room Air Room Air Room Air 11/06/18 12:28 Temperature Temperature Source Pulse Rate [Left Radial] 72 Respiratory Rate Blood Pressure [Right Arm] 194/130 H Blood Pressure Mean [Right Arm] 151 Blood Pressure Source [Right Arm] Automatic Cuff Blood Pressure Position [Right Arm] Supine 02 Sat by Pulse Oximetry 92 L Oxygen Delivery Method Room Air - Lab Data Lab Results 11/06/18 10:15: WBC 4.7 L, RBC 4.44, Hgb 11.7 L, Hct 37.0, MCV 83.4, MCH 26.3 L, MCHC 31.6 L, RDW 17.5, Plt Count 276, MPV 7.3 L, Neut % (Auto) 76.8, Lymph % (Auto) 12.0, [place] % (Auto) 8.1, Eos % (Auto) 2.3, Baso % (Auto) 0.8, Neut # (Auto) 3.6, Lymph # (Auto) 0.6 L, [place] # (Auto) 0.4, Eos # (Auto) 0.1, Baso # (Auto) 0.0 11/06/18 10:15: Sodium 142, Potassium 3.4 L, Chloride 104, Carbon Dioxide 28, Anion Gap 13.4, BUN 29 H, Creatinine 2.09 H, Estimated Creat Clear 34, Estimated GFR 24 L, Est GFR ( Amer) 29 L, Glucose 97, Calcium 12.4 H*, Total Bilirubin 1.4 H, AST 29, ALT 26, Alkaline Phosphatase 384 H, Total Protein 6.9, Albumin 2.5 L, Globulin 4.4 H, Albumin/Globulin Ratio 0.6 L 11/06/18 10:15: PT 16.7 H, INR 1.64 H 11/06/18 10:15: Troponin I 0.05, Digoxin 2.31 11/06/18 10:15: Amylase 100, Lipase 1077 H 11/06/18 10:15: TSH 3.59, Free T4 Index 5.0 L, Thyroxine (T4) 11.9, T3 Uptake 42 H 11/06/18 10:15: Phosphorus 3.6, Magnesium 2.2 11/06/18 10:25: POC Glucose 72 11/06/18 10:40: Ammonia < 10 L Result diagrams: 11/06/18 10:15 11/06/18 10:15 Orders (Tests/Meds): ED MEDICATIONS Generic Name Dose Route Start Last Admin Trade Name Freq PRN Reason Stop Dose Admin Sodium Chloride 1,000 mls @ 200 mls/hr 11/06/18 11:30 11/06/18 12:34 Sod Chlor 0.9% 1000ml Bag IV 12/06/18 11:29 200 mls/hr .Q5H SHENG Administration Sodium Chloride 10 ml 11/06/18 10:24 Saline Flush 10ml Syringe IV 12/06/18 10:23 NEEDED PRN Maintain IV Site Discontinued Medications Generic Name Dose Route Start Last Admin Trade Name Freq PRN Reason Stop Dose Admin Furosemide 40 mg 11/06/18 12:26 Lasix 40mg/4ml Vial IV 11/06/18 12:27 ONCE ONE ORDERS Category Date Time Status Calcium, Ionized Stat Lab 11/06/18 10:15 Received Drug Screen,Urine Stat Lab 11/06/18 10:16 Ordered Parathyroid Hormone Intact Stat Lab 11/06/18 10:15 Received Urinalysis and Microscopic Stat Lab 11/06/18 10:16 Ordered - CT Data CT Scan: Head, Abdomen, Pelvis Time Received: 12:[address] Reviewed: Yes: I have viewed the radiologist's interpretation Findings Narrative: Abdomen/Pelvis: IMPRESSION: 1. Cirrhosis with ascites. 2. Diffuse stranding of the peritoneal fat which may related to the cirrhosis. Differential diagnosis would include pancreatitis or peritonitis. 3. Mild thickening of the colon which may related to ascites or colitis. 4. In the lower thorax are small bilateral effusions, cardiomegaly, and hiatal hernia Dictated By: Micha Coronel MD Signed By: <Electronically signed by Micha Coronel MD in OV> 11/06/18 1135 Head: IMPRESSION: No acute intracranial findings Dictated By: Micha Coronel MD Signed By: <Electronically signed by Micha Coronel MD in [place]> 11/06/18 1129 - ECG Data Tracing #1 EKG interpreted by Sanjeev Cleary MD: Rhythm: sinus Rate: 60 [place]: Left Ectopy: Premature ventricular contraction Conduction: normal ST Segment Changes: none T Wave Changes: none Q Waves: none Poor R wave progression - Physician Consults Physician Consulted: Ambrocio Time: 12:25 Reason -: Admission Comment/Response: Dr. Albrecht says the patient was seen in their office yesterday, started on oxycodone for pain. Family did not relay this to me. He requests that we check and see how much oxycodone she has taken. Agrees to admit the patient to the hospital. We discussed the patient's clinical information, including history, exam, laboratory and radiology results and ED course. Per hospital procedure, I will write temporary bridge inpatient orders on the patient. Specific orders requested by the admitting physician: Normal saline at 200 cc/h. Lasix 40 mg IV. N.p.o. Medical Decision Narrative: 12:30 PM: Dr. Albrecht present seeing patient. General Adult HPI - General Chief complaint: Altered Mental Status Stated complaint: swollen belly, confused Time Seen by Provider: 11/06/18 10:23 Mode of Arrival: Ambulatory Limitations: No Limitations Description of Symptoms (Recalled from ER Triage Doc. by RN): Daughter states that pt started being confused yesterday and is suppose to start an infusion tomorrow for her liver but unsure what this is. Pt is A&O at this time - History of Present Illness HPI narrative: History from patient and family. She is brought in primarily for confusion. Family noticed this yesterday evening, worse today. Has been whispering about people that are not there. Making inconsistent statements about who is with her and what they are doing, and where she is going. However, family also states she has been ill for several days. Has had vomiting. Complains of a burning in her abdomen. No diarrhea that they are aware of. Has not been eating well, has not eaten since Monday, 2 days ago. Has some sort of liver problem with elevated liver enzymes, uncertain as to diagnosis. She is supposed to start an infusion this Monday at [facility]. They are uncertain what the infusion is for or what it is called. Family reports that patient was previously on Lasix, Spironolactone, and potassium, but these were stopped at [facility]. - Related Data Home Medications Medication Instructions Recorded Confirmed Atorvastatin Calcium [Atorvastatin 20 mg PO DAILY 11/20/17 11/06/18 20mg Tab] Carvedilol [Carvedilol 25mg Tab] 25 mg PO BID 11/20/17 11/06/18 Hydralazine HCl [Hydralazine HCl 50 mg PO TID 11/20/17 11/06/18 25mg Tablet] cloNIDine HCl [cloNIDine 0.1mg 0.3 mg PO TID 11/20/17 11/06/18 Tablet] Digoxin 125 mcg PO DAILY 08/05/18 11/06/18 Warfarin Sodium 3 mg PO DAILY 08/05/18 11/06/18 Losartan Potassium 50 mg PO DAILY 08/11/18 11/06/18 Allergies Allergy/AdvReac Type Severity Reaction Status Date / Time No Known Allergies Allergy Verified 06/17/18 22:06 [facility] History - Hepatitis A Screen Drug use history?: No High risk sexual behaviors?: No History of sexually transmitted infection?: No Currently employed?: No Childcare worker?: No Do you have indoor plumbing?: Yes Do you have electricity?: Yes Attestation statement:: This patient has been screened for Hepatitis A risk factors. I have reviewed the patient's past medical history: Yes Medical History: Reports:: Arrhythmia, Congestive Heart Failure, Diabetes Mellitus Type 2, Hyperlipidemia, Hypertension Denies:: Cancer, Diabetes Mellitus Type 1, Internal Pacemaker, MRSA Laterality Cases: Right: Arthroscopy Shoulder Other Surgeries: Yes: Cholecystectomy, Tubal Ligation, Other. No: Pacemaker Amputation: No Fractures: No Comment: Cholecystectomy - Social History Smoking Status: Never smoker Alcohol Intake: never Occupational Status: disabled Housing: house Household Members: spouse - Psychiatric History Expresses thoughts of harming self/others: None Suicide Plan Description: No Plan Family Hx:: Diabetes, Heart Attack, Hyperlipidemia, Hypertension ROS Obtained: Yes All systems reviewed & no additional complaints - Constitutional Constitutional: Denies fever(s), Denies headache(s), Reports poor appetite - Cardiovascular Cardiovascular: Denies chest pain - Respiratory Respiratory: No cough, No dyspnea - Gastrointestinal Gastrointestingal: Reports: abdominal pain, nausea, vomiting. Denies: diarrhea - Genitourinary Female Genitourinary: Denies difficulty voiding, Denies dysuria - Neurologic Neurologic: Reports confusion, Denies headache(s) Physical Exam - General General appearance: alert, in no apparent distress - Head Head exam: atraumatic, normocephalic - Eye Eye exam: Present: normal appearance, PERRL, EOMI - ENT ENT exam: Present: mucous membranes moist - Neck Neck exam: Present: normal inspection, full ROM - Chest Chest inspection: Present: normal inspection, symmetric chest wall rise - Respiratory Respiratory exam: Present: normal lung sounds bilaterally. Absent: respiratory distress - Cardiovascular Cardiovascular exam: Present: irregular rhythm, systolic murmur - Abdominal Exam Abdominal exam: Present: soft, distention, tenderness Abdominal tenderness: Present: diffuse - Extremities Exam Extremities exam: Present: normal inspection, other (Trace bilateral ankle edema) - Neurological Exam Neurological exam: Present: alert, oriented X3, CN II-XII intact. Absent: motor sensory deficit - Psychiatric Psychiatric exam: Present: normal affect, normal mood - Skin Skin exam: Present: warm, dry
[2018-11-06 10:26] LABS: Basophils % 0.8 % (0.1-2.0); Eosinophils # 0.1 K/mm3 (0.0-0.4); Eosinophils % 2.3 % (0.1-12.0); Hemoglobin 11.7 g/dL (12.2-16.2); Lymphocytes # 0.6 K/mm3 (0.7-4.5); Mean Corpuscular HGB Conc 31.6 g/dL (31.8-35.4); Mean Corpuscular Hemoglobin 26.3 pg (27.0-31.2); Mean Corpuscular Volume 83.4 fl (81-99); Mean Platelet Volume 7.3 fl (7.4-10.4); Monocytes # 0.4 K/mm3 (0.1-1.0); Monocytes % 8.1 % (1.7-9.3); Neutrophils # 3.6 K/mm3 (1.8-7.8); Neutrophils % 76.8 % (37.0-80.0); Platelet Count 276 K/mm3 (142-424); Red Blood Count 4.44 M/mm3 (4.20-5.40); Red Cell Distribution Width 17.5 % (11.5-17.5); White Blood Count 4.7 K/mm3 (4.8-10.8)
[2018-11-06 10:45] LABS: INR 1.64 (0.9-1.1); Prothrombin Time 16.7 seconds (9.4-11.8)
[2018-11-06 10:53] LABS: Digoxin 2.31 ng/mL (1.15-2.56)
[2018-11-06 11:06] LABS: Albumin Level 2.5 gm/dL (3.4-5.0); Albumin/Globulin Ratio 0.6 (1.1-1.8); Anion Gap 13.4 mEq/L (5-15); Bilirubin,Total 1.4 mg/dL (0.2-1.0); Globulin 4.4 gm/dl (1.3-3.2); Potassium 3.4 mmoL/L (3.5-5.1); Total Protein,Serum 6.9 gm/dL (6.4-8.2)
[2018-11-06 11:11] LABS: Calcium 12.4 mg/dL (8.5-10.1)
[2018-11-06 11:36] LABS: Amylase 100 U/L (25-115); Lipase 1077 u/L (73-393)
[2018-11-06 11:42] LABS: Phosphorous 3.6 mg/dL (2.4-4.9)
[2018-11-06 11:58] LABS: T4 (Thyroxine) 11.9 ug/dl (4.7-13.3); Thyroid Stimulating Hormone 3.59 uIU/ml (0.358-3.740)
--- NOTE | 2018-11-06 13:41 | History & Physical Report ---
*Admission Date: 11/06/18 *Chief complaint: abdominal pain/confusion *History of present illness: 68 year old female brought to ER by family over episodes of confusion starting yesterday evening. Patient admits she had "trouble talking" and trouble walking" this morning. She feels better at time of exam then she did this a.m. She was sein in office yesterday and given oxycodone for abdominal pain. She did take one over night. In the ER evaluation did reveal findings of mild pancreatitis as well as hypercalcemia. She has been admitted for IV fluids, pain control. [facility] History I have reviewed the patient's past medical history: Yes Medical History: Reports:: Arrhythmia, Congestive Heart Failure, Diabetes Mellitus Type 2, Hyperlipidemia, Hypertension Denies:: Cancer, Diabetes Mellitus Type 1, Internal Pacemaker, MRSA Have you ever received a pneumonia vaccine?: No (ALREADY HAD) Have you received a flu vaccine this season?: No (REFUSED) Laterality Cases: Right: Arthroscopy Shoulder Other Surgeries: Yes: Cholecystectomy, Tubal Ligation, Other. No: Pacemaker Amputation: No Fractures: No - *Social History Smoking Status: Never smoker Alcohol Intake: never Occupational Status: disabled Housing: house Household Members: spouse Travel in the last 8 weeks: None - Psychiatric History Expresses thoughts of harming self/others: None Suicide Plan Description: No Plan *Family Hx:: Diabetes, Heart Attack, Hyperlipidemia, Hypertension Review of Systems - Review of Systems Review of systems:: pertinent systems reviewed and negative unless documented below - Constitutional Reports anorexia, Denies fever(s) - *Cardiovascular Denies chest pain - *Respiratory Denies chest congestion, Denies cough - *Gastrointestinal Reports abdominal pain, Reports bloating, Denies change in bowel habits, Denies change in stools, Denies coffee ground vomit, Denies heartburn, Denies difficulty swallowing - *Neurologic Reports confusion, Denies headache(s) Meds Home Medications Medication Instructions Recorded Confirmed Type Atorvastatin Calcium [Atorvastatin 20 mg PO DAILY 11/20/17 11/06/18 History 20mg Tab] Carvedilol [Carvedilol 25mg Tab] 25 mg PO BID 11/20/17 11/06/18 History Hydralazine HCl [Hydralazine HCl 50 mg PO TID 11/20/17 11/06/18 History 25mg Tablet] cloNIDine HCl [cloNIDine 0.1mg 0.3 mg PO TID 11/20/17 11/06/18 History Tablet] Digoxin 125 mcg PO DAILY 08/05/18 11/06/18 History Warfarin Sodium 3 mg PO DAILY 08/05/18 11/06/18 History Losartan Potassium 50 mg PO DAILY 08/11/18 11/06/18 History Allergies Allergy/AdvReac Type Severity Reaction Status Date / Time No Known Allergies Allergy Verified 06/17/18 22:06 Exam Vital signs and Labs for Last 24 Hours: Temp Pulse Resp BP Pulse Ox 97.6 F 53 L 18 190/120 H 98 11/06/18 10:07 11/06/18 13:33 11/06/18 10:07 11/06/18 13:33 11/06/18 13:33 Laboratory Results - last 24 hr 11/06/18 10:15: WBC 4.7 L, RBC 4.44, Hgb 11.7 L, Hct 37.0, MCV 83.4, MCH 26.3 L, MCHC 31.6 L, RDW 17.5, Plt Count 276, MPV 7.3 L, Neut % (Auto) 76.8, Lymph % (Auto) 12.0, [place] % (Auto) 8.1, Eos % (Auto) 2.3, Baso % (Auto) 0.8, Neut # (Auto) 3.6, Lymph # (Auto) 0.6 L, [place] # (Auto) 0.4, Eos # (Auto) 0.1, Baso # (Auto) 0.0 11/06/18 10:15: Sodium 142, Potassium 3.4 L, Chloride 104, Carbon Dioxide 28, Anion Gap 13.4, BUN 29 H, Creatinine 2.09 H, Estimated Creat Clear 34, Estimated GFR 24 L, Est GFR ( Amer) 29 L, Glucose 97, Calcium 12.4 H*, Total Bilirubin 1.4 H, AST 29, ALT 26, Alkaline Phosphatase 384 H, Total Protein 6.9, Albumin 2.5 L, Globulin 4.4 H, Albumin/Globulin Ratio 0.6 L 11/06/18 10:15: PT 16.7 H, INR 1.64 H 11/06/18 10:15: Troponin I 0.05, Digoxin 2.31 11/06/18 10:15: Amylase 100, Lipase 1077 H 11/06/18 10:15: TSH 3.59, Free T4 Index 5.0 L, Thyroxine (T4) 11.9, T3 Uptake 42 H 11/06/18 10:15: Phosphorus 3.6, Magnesium 2.2 11/06/18 10:25: POC Glucose 72 11/06/18 10:40: Ammonia < 10 L I & O for Last 24 hours: Intake & Output 11/04/18 11/05/18 11/06/18 11/07/18 11:59 11:59 11:59 11:59 Weight 178 lb - Constitutional chronically ill appearing - *Routine HEENT Exam Head: Present: normocephalic Eye: Present: EOMI ENT: Present: mucous membranes dry - *Routine Respiratory Exam Present: CTA bilaterally - *Routine Cardiovascular Exam Present: irregularly irregular - *Routine Abdominal Exam Present: soft, tenderness, distended. Absent: rebound, firm, rigid Assessment and Plan (1) Acute pancreatitis Current visit: Yes Status: Acute Qualifiers: Pancreatitis type: unspecified pancreatitis type Acute pancreatitis complication: no infection or necrosis Qualified Code(s): K85.90 - Acute pancreatitis without necrosis or infection, unspecified Category: Medical Code(s): K85.90 - Acute pancreatitis without necrosis or infection, unspecified (2) Cirrhosis of liver with ascites Current visit: Yes Status: Acute Qualifiers: Hepatic cirrhosis type: unspecified hepatic cirrhosis Qualified Code(s): K74.60 - Unspecified cirrhosis of liver; R18.8 - Other ascites Category: Medical Code(s): K74.60 - Unspecified cirrhosis of liver; R18.8 - Other ascites (3) Confusion Current visit: Yes Status: Acute Category: Medical Code(s): R41.0 - Disorientation, unspecified (4) Hypercalcemia Current visit: Yes Status: Acute Category: Medical Code(s): E83.52 - Hypercalcemia (5) Anemia of chronic disease Current visit: No Status: Acute Category: Medical Code(s): D63.8 - Anemia in other chronic diseases classified elsewhere (6) On Coumadin for atrial fibrillation Current visit: No Status: Acute Category: Medical Code(s): Z78.9 - Other specified health status (7) Stage III chronic kidney disease Current visit: No Status: Acute Category: Medical Code(s): N18.3 - Chronic kidney disease, stage 3 (moderate) (8) Hypertension Current visit: No Status: Chronic Qualifiers: Hypertension type: essential hypertension Qualified Code(s): I10 - Essential (primary) hypertension Category: Medical Code(s): I10 - Essential (primary) hypertension - Assessment and plan all Dx Assessment and Plan for all problems:: 1. sips and chips, IV morphine for pain control 2. repeat labs in a.m. 3. IV fluids plus IV lasix for hypercalcemia 4. Home meds for HTN
--- NOTE | 2018-11-06 14:03 | Pharmacy Consult Notes ---
[facility] Pharmacy VTE Monitoring - Patient Demographics Admission date: 11/06/18 Report Date: 11/06/18 Time: 14:02 Allergies/Adverse Reactions: Patient Allergies No Known Allergies Allergy (Verified 06/17/18 22:06) Height: 1.68 m Weight: 80.739 kg Patient Problems: Current Active Problems Hypercalcemia (Acute) Cirrhosis of liver with ascites (Acute) Confusion (Acute) Acute pancreatitis (Acute) - VTE Risk Labs: VTE Related Lab Results Hgb 11.7 g/dL (12.2-16.2) L 11/06/18 10:15 Hct 37.0 % (37.0-47.0) 11/06/18 10:15 Plt Count 276 K/mm3 (142-424) 11/06/18 10:15 PT 16.7 seconds (9.4-11.8) H 11/06/18 10:15 INR 1.64 (0.9-1.1) H 11/06/18 10:15 BUN 29 mg/dL (7-18) H 11/06/18 10:15 Creatinine 2.09 mg/dL (0.55-1.02) H 11/06/18 10:15 Estimated Creat Clear 34 mL/min (50-200) 11/06/18 10:15 - Prophylaxis VTE Prophylaxis Ordered?: Yes Types of VTE Prophylaxis: TEDS Knee High Location of Applied Device: Bilateral Lower Extremeties - VTE Diagnosis Confirmed Treatment or plan recommended: Continue Current Treatment
[2018-11-06 21:58] LABS: Microscopic, Urine URINE MICROSCOPIC (MICROSCOPIC)
[2018-11-06 22:03] LABS: Appearance,Urine CLEAR (Clear); Bilirubin,Urine Negative (Negative); Blood, Urine Negative (Negative); Color,Urine YELLOW (Yellow); Glucose,Urine (UA) Negative (Negative); Ketones,Urine Negative (Negative); Leukocyte Esterase,Urine Negative (Negative); Protein,Urine 1+ (Negative); Specific Gravity, Urine 1.015 (1.005-1.030); Urobilinogen,Urine 0.2 EU/dl (0.2)
[2018-11-06 22:56] LABS: Bacteria,Urine 3+ /lpf; RBC,Urine Occasional #/hpf (0-3)
[2018-11-06 23:24] LABS: Amphetamine/Metha Screen,Urine Negative ng/mL (<1000); Barbiturates Screen,Urine Negative ng/mL (<200); Benzodiazepines Screen,Urine Negative ng/mL (<200); Cannabinoid Screen,Urine Negative ng/mL (<50); Cocaine Screen,Urine Negative ng/mL (<300); Methadone Screen,Urine Negative ng/mL (<300); Opiate Screen,Urine Positive ng/mL (<300); Phencyclidine Screen,Urine Negative ng/mL (<25)
[2018-11-07 06:17] LABS: Anion Gap 14.5 mEq/L (5-15); Calcium 11.4 mg/dL (8.5-10.1); Potassium 3.5 mmoL/L (3.5-5.1)
--- NOTE | 2018-11-07 07:03 | Progress Note ---
Internal Medicine - PN: Subj *Date: 11/07/18 *Time: 07:00 Interval history: Yesterday afternoon patient developed episodes of what appeared to be heart block on telemetry strips. EKGs could not capture these abnormal rhythms. Heart rate would decrease into the 40s and 50s. Dr. Kirkland reviewed the abnormal telemetry strips and in discussion with him patient was transferred to the stepdown unit, given glucagon 1 mg and Digibind. After receiving those medications patient's heart rate did improve however she is still having episodes of what appears to be a sinus pause. Heart rate will still decrease temporarily at x2 rates of 50 bpm. In regards to patient's abdominal pain she states it is about the same. She denies nausea. Nursing staff also reports patient had to urinary urgency and frequency although urine output was only 200 mL's. She has received over 1200 mL's of fluid since admission due to the hypocalcemia. Nursing staff believes the abdomen is slightly more distended. Patient became hypoglycemic overnight and was started on D5 half-normal saline Exam Vital signs and Labs for Last 24 Hours: Temp Pulse Resp BP Pulse Ox 99.3 F 80 24 180/96 H 94 L 11/07/18 04:00 11/07/18 05:00 11/07/18 05:00 11/07/18 05:00 11/07/18 05:00 Laboratory Results - last 24 hr 11/06/18 10:15: WBC 4.7 L, RBC 4.44, Hgb 11.7 L, Hct 37.0, MCV 83.4, MCH 26.3 L, MCHC 31.6 L, RDW 17.5, Plt Count 276, MPV 7.3 L, Neut % (Auto) 76.8, Lymph % (Auto) 12.0, [place] % (Auto) 8.1, Eos % (Auto) 2.3, Baso % (Auto) 0.8, Neut # (Auto) 3.6, Lymph # (Auto) 0.6 L, [place] # (Auto) 0.4, Eos # (Auto) 0.1, Baso # (Auto) 0.0 11/06/18 10:15: Sodium 142, Potassium 3.4 L, Chloride 104, Carbon Dioxide 28, Anion Gap 13.4, BUN 29 H, Creatinine 2.09 H, Estimated Creat Clear 34, Estimated GFR 24 L, Est GFR ( Amer) 29 L, Glucose 97, Calcium 12.4 H*, Total Bilirubin 1.4 H, AST 29, ALT 26, Alkaline Phosphatase 384 H, Total Protein 6.9, Albumin 2.5 L, Globulin 4.4 H, Albumin/Globulin Ratio 0.6 L 11/06/18 10:15: PT 16.7 H, INR 1.64 H 11/06/18 10:15: Troponin I 0.05, Digoxin 2.31 11/06/18 10:15: Amylase 100, Lipase 1077 H 11/06/18 10:15: TSH 3.59, Free T4 Index 5.0 L, Thyroxine (T4) 11.9, T3 Uptake 42 H 11/06/18 10:15: Phosphorus 3.6, Magnesium 2.2 11/06/18 10:25: POC Glucose 72 11/06/18 10:40: Ammonia < 10 L 11/06/18 19:40: Urine Opiates Screen Positive H, Urine Methadone Screen Negative, Ur Barbituates Screen Negative, Ur Phencyclidine Scrn Negative, Ur Amphetamines Screen Negative, U Benzodiazepines Scrn Negative, Urine Cocaine Screen Negative, U Marijuana (THC) Screen Negative 11/06/18 19:40: Urine Color Yellow, Urine Appearance Clear, Urine pH 6.0, Ur Specific [place] 1.015, Urine Protein 1+, Urine Glucose (UA) Negative, Urine Ketones Negative, Urine Blood Negative, Urine Nitrate Negative, Urine Bilirubin Negative, Urine Urobilinogen 0.2, Ur Leukocyte Esterase Negative, Urine RBC Occasional, Urine WBC 3-5, Ur Squamous Epith Cells 5-10, Ur Transition Epith Cell 3-5, Urine Bacteria 3+ 11/06/18 21:33: POC Glucose 61 L 11/06/18 22:07: POC Glucose 78 11/07/18 05:03: POC Glucose 93 11/07/18 06:00: Sodium 143, Potassium 3.5, Chloride 108 H, Carbon Dioxide 24, Anion Gap 14.5, BUN 31 H, Creatinine 1.93 H, Estimated Creat Clear 35, Estimated GFR 26 L, Est GFR ( Amer) 31 L, Glucose 90, Calcium 11.4 H, Lipase 727 H I & O for Last 24 hours: Intake & Output 11/04/18 11/05/18 11/06/18 11/07/18 11:59 11:59 11:59 11:59 Intake Total 2435 / 2435 Output Total 200 / 200 Balance 2235 / 2235 Weight 178 lb 170 lb 5 oz Narrative: Patient is awake. She is oriented to person and place. Oropharynx is not as dry as yesterday. Heart has an irregular rate and rhythm. Lungs are clear. Abdomen is distended with epigastric tenderness. Bowel sounds are present Assessment and Plan (1) Acute pancreatitis Current visit: Yes Status: Acute Qualifiers: Pancreatitis type: unspecified pancreatitis type Acute pancreatitis complication: no infection or necrosis Qualified Code(s): K85.90 - Acute pancreatitis without necrosis or infection, unspecified Category: Medical Code(s): K85.90 - Acute pancreatitis without necrosis or infection, unspecified (2) Cirrhosis of liver with ascites Current visit: Yes Status: Acute Qualifiers: Hepatic cirrhosis type: unspecified hepatic cirrhosis Qualified Code(s): K74.60 - Unspecified cirrhosis of liver; R18.8 - Other ascites Category: Medical Code(s): K74.60 - Unspecified cirrhosis of liver; R18.8 - Other ascites (3) Confusion Current visit: Yes Status: Acute Category: Medical Code(s): R41.0 - Disorientation, unspecified (4) Hypercalcemia Current visit: Yes Status: Acute Category: Medical Code(s): E83.52 - Hypercalcemia (5) Anemia of chronic disease Current visit: No Status: Acute Category: Medical Code(s): D63.8 - Anemia in other chronic diseases classified elsewhere (6) On Coumadin for atrial fibrillation Current visit: No Status: Acute Category: Medical Code(s): Z78.9 - Other specified health status (7) Stage III chronic kidney disease Current visit: No Status: Acute Category: Medical Code(s): N18.3 - Chronic kidney disease, stage 3 (moderate) (8) Hypertension Current visit: No Status: Chronic Qualifiers: Hypertension type: essential hypertension Qualified Code(s): I10 - Essential (primary) hypertension Category: Medical Code(s): I10 - Essential (primary) hypertension - Assessment and plan all Dx Assessment and Plan for all problems:: 1. N.p.o. until cardiology consult 2. In regards to pancreatitis she will stay on ice chips at this time 3. Hold warfarin, check INR. 4. Continue to monitor calcium, level has improved this morning. 5. Give IV Lasix this morning in an attempt to reduce ascites
[2018-11-07 07:52] LABS: Basophils % 0.2 % (0.1-2.0); Eosinophils % 0.7 % (0.1-12.0); Lymphocytes # 0.5 K/mm3 (0.7-4.5); Lymphocytes % 10.6 % (10-50); Mean Corpuscular HGB Conc 31.4 g/dL (31.8-35.4); Mean Corpuscular Hemoglobin 26.1 pg (27.0-31.2); Mean Corpuscular Volume 83.1 fl (81-99); Mean Platelet Volume 7.9 fl (7.4-10.4); Monocytes # 0.4 K/mm3 (0.1-1.0); Monocytes % 9.4 % (1.7-9.3); Neutrophils # 3.5 K/mm3 (1.8-7.8); Platelet Count 203 K/mm3 (142-424); Red Blood Count 4.21 M/mm3 (4.20-5.40); Red Cell Distribution Width 17.2 % (11.5-17.5); White Blood Count 4.5 K/mm3 (4.8-10.8)
[2018-11-07 08:00] LABS: INR 2.58 (0.9-1.1); Prothrombin Time 25.9 seconds (9.4-11.8)
[2018-11-07 08:04] LABS: Albumin Level 2.4 gm/dL (3.4-5.0); Bilirubin,Direct 0.9 mg/dL (0.0-0.2); Bilirubin,Indirect 0.5 mg/dL (0.0-0.9); Bilirubin,Total 1.4 mg/dL (0.2-1.0); Calcium 11.6 mg/dL (8.5-10.1); Total Protein,Serum 6.7 gm/dL (6.4-8.2)
--- NOTE | 2018-11-07 13:37 | Consult Report ---
Addendum entered and electronically signed by Samra Molina APRN 11/07/18 17:03: Pt continues to have intermittent third degree AVB and asystolie despite being off of Coreg, Digoxin and Clonidine. Will plan to proceed with pacemaker placement tomorrow, 11/08/18 at 1015. The patient has been educated on the risks and benefits of proceeding with pacemaker placement. The patient has verbalized understanding and is agreeable in proceeding with the procedure. Original Note: History of Present Illness Consult date: 11/07/18 (@ 929) Requesting physician: Rafi Albrecht Consult reason: atrial fibrillation Chief complaint: confusion and weakness History of present illness: This is a 68-year-old black female who was admitted to the hospital after having episodes of confusion and difficulty walking. The patient states that she was very weak at home and unable to walk. She states that she was having issues with memory at all. Pressure. She states that she was not breath and had no edema. No fever chills nausea vomiting diarrhea PND orthopnea. Once the patient was admitted to the hospital she was found to have hypercalcemia and she was dig toxic. She was also episode of complete heart block as well as a bili. The patient's carvedilol and digoxin. She was treated with glucagon and Digibind. The patient remained hypertensive and she is still been having episodes of intermittent heart block/asystole. [facility] History Medical History: Reports:: Arrhythmia, Congestive Heart Failure, Diabetes Mellitus Type 2, Hyperlipidemia, Hypertension Denies:: Cancer, Diabetes Mellitus Type 1, Internal Pacemaker, MRSA Have you ever received a pneumonia vaccine?: No Have you received a flu vaccine this season?: Yes Laterality Cases: Right: Arthroscopy Shoulder Other Surgeries: Yes: Cholecystectomy, Tubal Ligation, Other. No: Pacemaker Amputation: No Fractures: No - *Social History Smoking Status: Never smoker Alcohol Intake: never Occupational Status: disabled Housing: house Household Members: spouse Travel in the last 8 weeks: None - Psychiatric History Expresses thoughts of harming self/others: None Suicide Plan Description: No Plan *Family Hx:: Diabetes, Heart Attack, Hyperlipidemia, Hypertension Meds Home Medications Medication Instructions Recorded Confirmed Type Atorvastatin Calcium [Atorvastatin 20 mg PO DAILY 11/20/17 11/06/18 History 20mg Tab] Carvedilol [Carvedilol 25mg Tab] 25 mg PO BID 11/20/17 11/06/18 History Hydralazine HCl [Hydralazine HCl 50 mg PO TID 11/20/17 11/06/18 History 25mg Tablet] cloNIDine HCl [cloNIDine 0.1mg 0.3 mg PO TID 11/20/17 11/06/18 History Tablet] Digoxin 125 mcg PO DAILY 08/05/18 11/06/18 History Warfarin Sodium 3 mg PO DAILY 08/05/18 11/06/18 History Losartan Potassium 50 mg PO DAILY 11/06/18 11/06/18 History Oxycodone HCl [OxyIR 5mg tablet] 2.5 - 5 mg PO Q6H 11/06/18 11/06/18 History Allergies Allergy/AdvReac Type Severity Reaction Status Date / Time No Known Allergies Allergy Verified 06/17/18 22:06 Review of Systems - Review of Systems Review of systems:: pertinent systems reviewed and negative unless documented below - Constitutional Reports fatigue, Reports malaise, Reports weakness - *Neurologic Reports confusion, Reports unsteadiness, Reports lack of coordination, Reports memory loss, Denies headache(s) Exam Vital signs and Labs for Last 24 Hours: Temp Pulse Resp BP Pulse Ox 97.9 F 70 20 150/94 H 99 11/07/18 12:00 11/07/18 12:41 11/07/18 12:41 11/07/18 12:41 11/07/18 12:41 Laboratory Results - last 24 hr 11/06/18 10:40: 25-OH Vitamin D Total 9.9 L 11/06/18 19:40: Urine Opiates Screen Positive H, Urine Methadone Screen Negative, Ur Barbituates Screen Negative, Ur Phencyclidine Scrn Negative, Ur Amphetamines Screen Negative, U Benzodiazepines Scrn Negative, Urine Cocaine Screen Negative, U Marijuana (THC) Screen Negative 11/06/18 19:40: Urine Color Yellow, Urine Appearance Clear, Urine pH 6.0, Ur Specific [place] 1.015, Urine Protein 1+, Urine Glucose (UA) Negative, Urine Ketones Negative, Urine Blood Negative, Urine Nitrate Negative, Urine Bilirubin Negative, Urine Urobilinogen 0.2, Ur Leukocyte Esterase Negative, Urine RBC Occasional, Urine WBC 3-5, Ur Squamous Epith Cells 5-10, Ur Transition Epith Cell 3-5, Urine Bacteria 3+ 11/06/18 21:33: POC Glucose 61 L 11/06/18 22:07: POC Glucose 78 11/07/18 05:03: POC Glucose 93 11/07/18 06:00: Sodium 143, Potassium 3.5, Chloride 108 H, Carbon Dioxide 24, Anion Gap 14.5, BUN 31 H, Creatinine 1.93 H, Estimated Creat Clear 35, Estimated GFR 26 L, Est GFR ( Amer) 31 L, Glucose 90, Calcium 11.4 H, Lipase 727 H 11/07/18 07:45: WBC 4.5 L, RBC 4.21, Hgb 11.0 L, Hct 35.0 L, MCV 83.1, MCH 26.1 L, MCHC 31.4 L, RDW 17.2, Plt Count 203 D, MPV 7.9, Neut % (Auto) 79.0, Lymph % (Auto) 10.6, [place] % (Auto) 9.4 H, Eos % (Auto) 0.7, Baso % (Auto) 0.2, Neut # (Auto) 3.5, Lymph # (Auto) 0.5 L, [place] # (Auto) 0.4, Eos # (Auto) 0.0, Baso # (Auto) 0.0 11/07/18 07:45: Sodium 143, Potassium 3.0 L, Chloride 107, Carbon Dioxide 27, Anion Gap 12.0, BUN 31 H, Creatinine 1.93 H, Estimated Creat Clear 35, Estimated GFR 26 L, Est GFR ( Amer) 31 L, Glucose 96, Calcium 11.6 H, Total Bilirubin 1.4 H, Direct Bilirubin 0.9 H, Indirect Bilirubin 0.5, AST 24, ALT 24, Alkaline Phosphatase 349 H, Total Protein 6.7, Albumin 2.4 L 11/07/18 07:45: PT 25.9 H, INR 2.58 H 11/07/18 11:20: POC Glucose 81 I & O for Last 24 hours: Intake & Output 11/04/18 11/05/18 11/06/18 11/07/18 23:59 23:59 23:59 23:59 Intake Total 1200 / 1200 1235 / 1235 Output Total 0 / 0 200 / 200 Balance 1200 / 1200 1035 / 1035 Weight 170 lb 5 oz Narrative: Her EKG is atrial fibrillation with PVCs and old anterior HI pattern. Telemetry strip fibrillation with a rate of 77. - Constitutional no acute distress, average body habitus, cooperative - *Routine HEENT Exam Head: Present: normocephalic, atraumatic Eye: Present: EOMI, PERRL ENT: Present: mucous membranes moist - *Routine Neck Exam Present: supple, full ROM. Absent: JVD, carotid bruit, lymphadenopathy - *Routine Respiratory Exam Present: CTA bilaterally - *Routine Cardiovascular Exam Present: Normal S1, Normal S2, irregularly irregular. Absent: murmur, gallop, rubs - *Routine Abdominal Exam Present: soft, normoactive bowel sounds. Absent: tenderness, distended - *Routine Extremities Exam Present: full ROM, pulses intact. Absent: cyanosis, clubbing, edema - *Routine Skin Exam Present: intact, warm. Absent: erythema, rash - *Routine Neurological Exam Present: alert, oriented X3, CN II-XII intact - Routine Psychiatric Exam Present: normal affect Assessment and Plan (1) Third degree AV block Current visit: Yes Status: Acute Category: Medical Code(s): I44.2 - Atrioventricular block, complete (2) Asystole Current visit: Yes Status: Acute Category: Medical Code(s): I46.9 - Cardiac arrest, cause unspecified (3) Acute pancreatitis Current visit: Yes Status: Acute Qualifiers: Pancreatitis type: unspecified pancreatitis type Acute pancreatitis complication: no infection or necrosis Qualified Code(s): K85.90 - Acute pancreatitis without necrosis or infection, unspecified Category: Medical Code(s): K85.90 - Acute pancreatitis without necrosis or infection, unspecified (4) Cirrhosis of liver with ascites Current visit: Yes Status: Acute Qualifiers: Hepatic cirrhosis type: unspecified hepatic cirrhosis Qualified Code(s): K74.60 - Unspecified cirrhosis of liver; R18.8 - Other ascites Category: Medical Code(s): K74.60 - Unspecified cirrhosis of liver; R18.8 - Other ascites (5) Confusion Current visit: Yes Status: Acute Category: Medical Code(s): R41.0 - Disorientation, unspecified (6) Hypercalcemia Current visit: Yes Status: Acute Category: Medical Code(s): E83.52 - Hypercalcemia (7) Anemia of chronic disease Current visit: No Status: Acute Category: Medical Code(s): D63.8 - Anemia in other chronic diseases classified elsewhere (8) On Coumadin for atrial fibrillation Current visit: No Status: Acute Category: Medical Code(s): Z78.9 - Other specified health status (9) Stage III chronic kidney disease Current visit: No Status: Acute Category: Medical Code(s): N18.3 - Chronic kidney disease, stage 3 (moderate) (10) Hypertension Current visit: No Status: Chronic Qualifiers: Hypertension type: essential hypertension Qualified Code(s): I10 - Essential (primary) hypertension Category: Medical Code(s): I10 - Essential (primary) hypertension (11) CKD (chronic kidney disease) Current visit: Yes Status: Acute Category: Medical Code(s): N18.9 - Chronic kidney disease, unspecified - Assessment and plan all Dx Assessment and Plan for all problems:: Plan: 1. The patient was admitted to the hospital with weakness and confusion. The patient was found to be hypercalcemic as well as toxic. He was having episodes of intermittent third-degree AV block and asystole. The patient carbon and digoxin were both stopped. Yesterday she was given glucagon and Digibind. 2. This morning the patient is still having episodes where her heart rate is dropping down into the 40s and 50s and has been as low as the 20s as well as still having intermittent third-degree AV block and asystole. The patient is on clonidine pressure control. However given the peaks and troughs of the clonidine and a side effect of bradycardia with clonidine we will go ahead and stop this medicine today as this may be contributing to why she is still having third-degree block and asystole. 3. Stop hydralazine. This is a desirable medication for this patient given the fact that this medication needs to be taken 3 or 4 times a day and it does raise issues with compliance. There is a side effect of lupus which is higher in -[place] patients. There is also dependent edema especially in the setting of pancreatitis. The patient would benefit from being on a medication with fewer side effect profile. 4. Increase her amlodipine to 10 mG twice a day and increase her irbesartan to 300 mg once a day. 5. We will get a renal duplex to rule out renal artery stenosis due to her malignant hypertension. 6. Echocardiogram to evaluate her LV function. 7. The patient is hyper anemic. Her PTH is pending. We will get a thyroid ultrasound. 8. Patient is hypokalemic today. She is getting her potassium repleted per the family doctor. 9. The patient's atrial fibrillation is currently rate controlled. She is on Coumadin outpatient for anticoagulation. 10. Chronic kidney disease is present. Creatinine is to follow her renal function. 11. Once all of these medication changes have completed and we give enough time for the clonidine to be out of her system, if the patient remains bradycardic then we will have to proceed with permanent pacemaker placement. I have discussed this option with the patient and her family. 12. Further recommendations will be made pending the patient's response to treatment and the results of her renal duplex, cardiogram, and thyroid ultrasound. You for the opportunity help to spent care of this patient.
--- NOTE | 2018-11-08 07:22 | Progress Note ---
Internal Medicine - PN: Subj *Date: 11/08/18 *Time: 07:19 Interval history: Patient is feeling slightly better this morning. She was able to tolerate clear liquids without increase in abdominal pain or nausea. Currently patient is n.p.o. in anticipation of pacemaker implantation later today. INR was in a therapeutic range for her atrial fibrillation yesterday and patient was given vitamin K overnight in anticipation of her procedure. INR is pending this morning. Urine output has been better. Exam Vital signs and Labs for Last 24 Hours: Temp Pulse Resp BP Pulse Ox 98.0 F 120 H 18 170/92 H 98 11/08/18 04:00 11/08/18 06:00 11/08/18 04:00 11/08/18 04:00 11/08/18 06:00 Laboratory Results - last 24 hr 11/06/18 10:15: PTH Intact 16 11/06/18 10:15: Ionized Calcium 7.6 H 11/06/18 10:40: 25-OH Vitamin D Total 9.9 L 11/06/18 23:01: POC Glucose 84 11/07/18 07:45: WBC 4.5 L, RBC 4.21, Hgb 11.0 L, Hct 35.0 L, MCV 83.1, MCH 26.1 L, MCHC 31.4 L, RDW 17.2, Plt Count 203 D, MPV 7.9, Neut % (Auto) 79.0, Lymph % (Auto) 10.6, [place] % (Auto) 9.4 H, Eos % (Auto) 0.7, Baso % (Auto) 0.2, Neut # (Auto) 3.5, Lymph # (Auto) 0.5 L, [place] # (Auto) 0.4, Eos # (Auto) 0.0, Baso # (Auto) 0.0 11/07/18 07:45: Sodium 143, Potassium 3.0 L, Chloride 107, Carbon Dioxide 27, Anion Gap 12.0, BUN 31 H, Creatinine 1.93 H, Estimated Creat Clear 35, Estimated GFR 26 L, Est GFR ( Amer) 31 L, Glucose 96, Calcium 11.6 H, Total Bilirubin 1.4 H, Direct Bilirubin 0.9 H, Indirect Bilirubin 0.5, AST 24, ALT 24, Alkaline Phosphatase 349 H, Total Protein 6.7, Albumin 2.4 L 11/07/18 07:45: PT 25.9 H, INR 2.58 H 11/07/18 11:20: POC Glucose 81 11/07/18 16:43: POC Glucose 78 11/07/18 20:16: POC Glucose 90 I & O for Last 24 hours: Intake & Output 11/05/18 11/06/18 11/07/18 11/08/18 11:59 11:59 11:59 11:59 Intake Total 2435 / 2435 1805 / 1805 Output Total 200 / 200 2150 / 2150 Balance 2235 / 2235 -345 / -345 Weight 178 lb 170 lb 5 oz 170 lb 4.984 oz Microbiology Reports for the Last 24 Hours: Microbiology 11/06/18 19:40 Urine,Catheterized Urine Culture - Preliminary NO GROWTH AFTER 24 HOURS Narrative: Patient is comfortable. Oropharynx is moist. Heart is tachycardic and irregularly irregular. Lungs are clear. Abdomen is soft and distended although distention appears improved compared to yesterday. Bowel sounds are present. There is definite ascites. Extremities are warm to the touch. Assessment and Plan (1) Third degree AV block Current visit: Yes Status: Acute Category: Medical Code(s): I44.2 - A trioventricular block, complete (2) Asystole Current visit: Yes Status: Acute Category: Medical Code(s): I46.9 - Cardiac arrest, cause unspecified (3) Acute pancreatitis Current visit: Yes Status: Acute Qualifiers: Pancreatitis type: unspecified pancreatitis type Acute pancreatitis complication: no infection or necrosis Qualified Code(s): K85.90 - Acute pancreatitis without necrosis or infection, unspecified Category: Medical Code(s): K85.90 - Acute pancreatitis without necrosis or infection, unspecified (4) Cirrhosis of liver with ascites Current visit: Yes Status: Acute Qualifiers: Hepatic cirrhosis type: unspecified hepatic cirrhosis Qualified Code(s): K74.60 - Unspecified cirrhosis of liver; R18.8 - Other ascites Category: Medical Code(s): K74.60 - Unspecified cirrhosis of liver; R18.8 - Other ascites (5) Confusion Current visit: Yes Status: Acute Category: Medical Code(s): R41.0 - Disorientation, unspecified (6) Hypercalcemia Current visit: Yes Status: Acute Category: Medical Code(s): E83.52 - Hypercalcemia (7) Anemia of chronic disease Current visit: No Status: Acute Category: Medical Code(s): D63.8 - Anemia in other chronic diseases classified elsewhere (8) On Coumadin for atrial fibrillation Current visit: No Status: Acute Category: Medical Code(s): Z78.9 - Other specified health status (9) Stage III chronic kidney disease Current visit: No Status: Acute Category: Medical Code(s): N18.3 - Chronic kidney disease, stage 3 (moderate) (10) Hypertension Current visit: No Status: Chronic Qualifiers: Hypertension type: essential hypertension Qualified Code(s): I10 - Essential (primary) hypertension Category: Medical Code(s): I10 - Essential (primary) hypertension (11) CKD (chronic kidney disease) Current visit: Yes Status: Acute Category: Medical Code(s): N18.9 - Chronic kidney disease, unspecified (12) Atrial fibrillation with RVR Current visit: No Status: Chronic Category: Medical Code(s): I48.91 - Unspecified atrial fibrillation - Assessment and plan all Dx Assessment and Plan for all problems:: 1. Continue current medications. I am going to decrease her irbesartan however due to the potential impact on her renal function. Amlodipine has been increase d to twice daily. Patient's blood pressure has never been consistently controlled for as long as I have known her as a patient. I do believe some of this is due to compliance issues so minimizing how many medications or how frequently she has to take them is a goal. Once her pacemaker is inserted she can be restarted on her beta-blockers. 2. Pacemaker implantation today 3. Await INR this morning 4. Once patient has had her pacemaker and can restart a diet we will start her on some full liquids.
[2018-11-08 07:26] LABS: Basophils % 0.3 % (0.1-2.0); Eosinophils # 0.1 K/mm3 (0.0-0.4); Eosinophils % 1.9 % (0.1-12.0); Hematocrit 36.6 % (37.0-47.0); Hemoglobin 11.3 g/dL (12.2-16.2); Lymphocytes # 0.6 K/mm3 (0.7-4.5); Lymphocytes % 12.4 % (10-50); Mean Corpuscular Volume 83.8 fl (81-99); Mean Platelet Volume 8.1 fl (7.4-10.4); Monocytes # 0.6 K/mm3 (0.1-1.0); Monocytes % 11.8 % (1.7-9.3); Neutrophils # 3.5 K/mm3 (1.8-7.8); Neutrophils % 73.6 % (37.0-80.0); Platelet Count 221 K/mm3 (142-424); Red Blood Count 4.36 M/mm3 (4.20-5.40); Red Cell Distribution Width 17.1 % (11.5-17.5); White Blood Count 4.8 K/mm3 (4.8-10.8)
[2018-11-08 07:34] LABS: INR 2.02 (0.9-1.1); Prothrombin Time 20.4 seconds (9.4-11.8)
[2018-11-08 07:44] LABS: Albumin Level 2.3 gm/dL (3.4-5.0); Anion Gap 10.9 mEq/L (5-15); Bilirubin,Direct 0.7 mg/dL (0.0-0.2); Bilirubin,Indirect 0.7 mg/dL (0.0-0.9); Bilirubin,Total 1.4 mg/dL (0.2-1.0); Calcium 11.4 mg/dL (8.5-10.1); Total Protein,Serum 6.8 gm/dL (6.4-8.2)
[2018-11-08 07:54] LABS: Potassium 2.9 mmoL/L (3.5-5.1)
--- NOTE | 2018-11-08 08:57 | Progress Note ---
Subjective Date: 11/08/18 Time: 08:53 Principal diagnosis: Tachybrady syndrome Interval history: 68 yo BF in bed in NAD. Complaint of belly discomfort without nausea or vomiting. INR 2.02, K 2.9 Telemetry shows sinus tach at 120 bpm currently with some A. flutter during the night. Exam Vital signs and Labs for Last 24 Hours: Temp Pulse Resp BP Pulse Ox 98.0 F 120 H 18 170/92 H 98 11/08/18 04:00 11/08/18 06:00 11/08/18 04:00 11/08/18 04:00 11/08/18 06:00 Laboratory Results - last 24 hr 11/06/18 10:15: PTH Intact 16 11/06/18 10:15: Ionized Calcium 7.6 H 11/06/18 10:40: 25-OH Vitamin D Total 9.9 L 11/06/18 23:01: POC Glucose 84 11/07/18 11:20: POC Glucose 81 11/07/18 16:43: POC Glucose 78 11/07/18 20:16: POC Glucose 90 11/08/18 05:38: WBC 4.8, RBC 4.36, Hgb 11.3 L, Hct 36.6 L, MCV 83.8, MCH 26.0 L, MCHC 31.0 L, RDW 17.1, Plt Count 221, MPV 8.1, Neut % (Auto) 73.6, Lymph % (Auto) 12.4, [place] % (Auto) 11.8 H, Eos % (Auto) 1.9, Baso % (Auto) 0.3, Neut # (Auto) 3.5, Lymph # (Auto) 0.6 L, [place] # (Auto) 0.6, Eos # (Auto) 0.1, Baso # (Auto) 0.0 11/08/18 05:38: Sodium 143, Potassium 2.9 L*, Chloride 108 H, Carbon Dioxide 27, Anion Gap 10.9, BUN 29 H, Creatinine 1.69 H, Estimated Creat Clear 40, Estimated GFR 30 L, Est GFR ( Amer) 37 L, Glucose 87, Calcium 11.4 H, Total Bilir ubin 1.4 H, Direct Bilirubin 0.7 H, Indirect Bilirubin 0.7, AST 29, ALT 21, Alkaline Phosphatase 348 H, Total Protein 6.8, Albumin 2.3 L 11/08/18 05:38: PT 20.4 H, INR 2.02 H I & O for Last 24 hours: Intake & Output 11/05/18 11/06/18 11/07/18 11/08/18 11:59 11:59 11:59 11:59 Intake Total 2435 / 2435 1805 / 1805 Output Total 200 / 200 2150 / 2150 Balance 2235 / 2235 -345 / -345 Weight 178 lb 170 lb 5 oz 170 lb 4.984 oz Microbiology Reports for the Last 24 Hours: Microbiology 11/06/18 19:40 Urine,Catheterized Urine Culture - Final Multiple organisms, suggests contamination. - *Routine Neck Exam Present: supple. Absent: JVD, carotid bruit - *Routine Respiratory Exam Present: decreased breath sounds. Absent: accessory muscle use, rales, rhonchi, wheezes - *Routine Cardiovascular Exam Present: tachycardia. Absent: murmur, gallop, rubs - *Routine Extremities Exam Absent: edema, calf tenderness - *Routine Neurological Exam Present: alert, oriented X3, moving all extremities Progress Note: A&P (1) Third degree AV block Status: Acute Current Visit: Yes (2) Asystole Status: Acute Current Visit: Yes (3) Acute pancreatitis Status: Acute Current Visit: Yes (4) Cirrhosis of liver with ascites Status: Acute Current Visit: Yes (5) Confusion Status: Acute Current Visit: Yes (6) Hypercalcemia Status: Acute Current Visit: Yes (7) Anemia of chronic disease Status: Acute Current Visit: No (8) On Coumadin for atrial fibrillation Status: Acute Current Visit: No (9) Stage III chronic kidney disease Status: Acute Current Visit: No (10) Hypertension Status: Chronic Current Visit: No (11) CKD (chronic kidney disease) Status: Acute Current Visit: Yes (12) Atrial fibrillation with RVR Status: Chronic Current Visit: No Assessment and Plan for All Diagnoses:: 1. Continue norvasc 10 mg BID and irbesartan 150 mg but will increase to BID. 2. Getting K+ supplement 3. Vit K today 4. Cancel Pacemaker today due to elevated INR and hypokalemia. 5. Add bisoprolol 10 mg daily for HR and BP. 6. Anticipate pt will need pacemaker before discharge.
--- NOTE | 2018-11-08 10:47 | Cardiology Report ---
PROCEDURE: 2-D M-mode and color Doppler study INDICATIONS FOR THE TEST: Chest pain COPD Heart Murmur Tobacco Smoking Palpitations Fatigue Syncope Edema Hypertension+Diabetes Mellitus+ Rheumatic Fever SOB ARCE Obesity Hyperlipidemia+ Family History HD Additional History CHF, CIRRHOSIS, ASCITIES PATIENT INFORMATION HEIGHT: 69 WEIGHT:170 GENDER: Female B/P:190/120 2-D/M-MODE INTERPRETATION: 2-D MEASUREMENTS OBSERVED VALUES IN CMS Right Ventricular Dimension (RVDd) 1.8 Interventricular Septum (Thickness)(IVsd) 1.6 Left Ventricular Internal Dimensions(LVIDd) 4.2 Left Ventricular Posterior Wall (Thickness)(LVPWd) 1.3 Aortic Root 3.4 Aortic Cusp Separation 1.9 Left Atrial Dimensions (LAD) 5.7 2D 1. Left atrium is markedly enlarged, left ventricle is normal size, there is moderate concentric left ventricular hypertrophy, visually estimated ejection fraction 50%, there is abnormal septal motion. 2. The right atrium and right ventricle are mildly enlarged with normal contractility. 3. The aortic valve is thickened and calcified difficult to display mobility. 4. The mitral valve has mitral annular calcification, mitral valve leaflets are minimally thickened. 5. The tricuspid valve is grossly normal. 6. The pulmonic valve is poorly visualized. 7. No significant pericardial effusion noted. DOPPLER INTERROGATION: Doppler interrogation of the aortic, mitral and tricuspid valvular presence of mild aortic, mild mitral and tricuspid regurgitation, calculated right ventricular systolic pressure is 59 mmHg consistent with moderate pulmonary hypertension. CONCLUSION: 1. Markedly enlarged left atrium, normal left ventricular size, moderate concentric left ventricular hypertrophy, visually estimated ejection fraction approximately 50%, with no regional wall motion abnormality, there is abnormal septal motion. 2. Mildly enlarged right atrium and right ventricle, contractility of the right ventricle is normal. 3. Thickened and calcified aortic valve without Doppler evidence of aortic stenosis, there is mild aortic insufficiency. 4. Mild mitral and tricuspid regurgitation, calculated I ventricular systolic pressure 59 mmHg consistent with moderate pulmonary hypertension. 5. No significant pericardial effusion noted
[2018-11-09 06:40] LABS: Anion Gap 12.4 mEq/L (5-15); Calcium 11.3 mg/dL (8.5-10.1); Potassium 3.4 mmoL/L (3.5-5.1)
[2018-11-09 06:40] LABS: INR 1.21 (0.9-1.1); Prothrombin Time 12.4 seconds (9.4-11.8)
[2018-11-09 07:01] LABS: Basophils % 0.4 % (0.1-2.0); Eosinophils # 0.1 K/mm3 (0.0-0.4); Eosinophils % 0.8 % (0.1-12.0); Hematocrit 35.9 % (37.0-47.0); Hemoglobin 10.8 g/dL (12.2-16.2); Lymphocytes # 0.6 K/mm3 (0.7-4.5); Lymphocytes % 8.1 % (10-50); Mean Corpuscular HGB Conc 30.1 g/dL (31.8-35.4); Mean Corpuscular Hemoglobin 25.7 pg (27.0-31.2); Mean Corpuscular Volume 85.4 fl (81-99); Mean Platelet Volume 7.8 fl (7.4-10.4); Monocytes # 0.5 K/mm3 (0.1-1.0); Monocytes % 7.3 % (1.7-9.3); Neutrophils # 6.1 K/mm3 (1.8-7.8); Neutrophils % 83.5 % (37.0-80.0); Platelet Count 295 K/mm3 (142-424); Red Cell Distribution Width 17.4 % (11.5-17.5); White Blood Count 7.3 K/mm3 (4.8-10.8)
--- NOTE | 2018-11-09 07:08 | Progress Note ---
Internal Medicine - PN: Subj *Date: 11/09/18 *Time: 07:05 Interval history: Patient has had a rough night. Nursing staff reports patient is frequently yelling out. Her remains at bedside. When I entered the room she is trying to get out of bed and states she is trying to get to the kitchen. She is reminded that she is in the hospital and she is able to reorient. She denies pain. She admits that she is thirsty this morning. Exam Vital signs and Labs for Last 24 Hours: Temp Pulse Resp BP Pulse Ox 98.0 F 85 18 188/117 H 90 L 11/09/18 06:00 11/09/18 06:00 11/09/18 06:00 11/09/18 06:00 11/09/18 06:00 Laboratory Results - last 24 hr 11/08/18 05:32: POC Glucose 76 11/08/18 05:38: WBC 4.8, RBC 4.36, Hgb 11.3 L, Hct 36.6 L, MCV 83.8, MCH 26.0 L, MCHC 31.0 L, RDW 17.1, Plt Count 221, MPV 8.1, Neut % (Auto) 73.6, Lymph % (Auto) 12.4, [place] % (Auto) 11.8 H, Eos % (Auto) 1.9, Baso % (Auto) 0.3, Neut # (Auto) 3.5, Lymph # (Auto) 0.6 L, [place] # (Auto) 0.6, Eos # (Auto) 0.1, Baso # (Auto) 0.0 11/08/18 05:38: Sodium 143, Potassium 2.9 L*, Chloride 108 H, Carbon Dioxide 27, Anion Gap 10.9, BUN 29 H, Creatinine 1.69 H, Estimated Creat Clear 40, Estimated GFR 30 L, Est GFR ( Amer) 37 L, Glucose 87, Calcium 11.4 H, Total Bilirubin 1.4 H, Direct Bilirubin 0.7 H, Indirect Bilirubin 0.7, AST 29, ALT 21, Alkaline Phosphatase 348 H, Total Protein 6.8, Albumin 2.3 L 11/08/18 05:38: PT 20.4 H, INR 2.02 H 11/08/18 11:36: POC Glucose 83 11/08/18 17:16: POC Glucose 93 11/08/18 20:59: POC Glucose 85 11/09/18 05:20: Sodium 144, Potassium 3.4 L, Chloride 108 H, Carbon Dioxide 27, Anion Gap 12.4, BUN 29 H, Creatinine 1.60 H, Estimated Creat Clear 41, Estimated GFR 32 L, Est GFR ( Amer) 39 L, Glucose 99, Calcium 11.3 H I & O for Last 24 hours: Intake & Output 11/06/18 11/07/18 11/08/18 11/09/18 11:59 11:59 11:59 11:59 Intake Total 2435 / 2435 1805 / 1805 1572 / 1572 Output Total 200 / 200 2150 / 2150 450 / 450 Balance 2235 / 2235 -345 / -345 1122 / 1122 Weight 178 lb 170 lb 5 oz 170 lb 4.984 oz 167 lb 7 oz Microbiology Reports for the Last 24 Hours: Microbiology 11/06/18 19:40 Urine,Catheterized Urine Culture - Final Multiple organisms, suggests contamination. Narrative: Breathing appears a little labored. Oropharynx is dry. Lungs are diminished at the bases. Heart rate is regular. Abdomen is distended and soft without epigastric tenderness. Assessment and Plan (1) Third degree AV block Current visit: Yes Status: Acute Category: Medical Code(s): I44.2 - Atrioventricular block, complete Awaiting pacemaker implantation (2) Asystole Current visit: Yes Status: Acute Category: Medical Code(s): I46.9 - Cardiac arrest, cause unspecified (3) Acute pancreatitis Current visit: Yes Status: Acute Qualifiers: Pancreatitis type: unspecified pancreatitis type Acute pancreatitis complication: no infection or necrosis Qualified Code(s): K85.90 - Acute pancreatitis without necrosis or infection, unspecified Category: Medical Code(s): K85.90 - Acute pancreatitis without necrosis or infection, unspecified Lipase to be repeated this morning due to nausea and vomiting that developed yesterday evening (4) Cirrhosis of liver with ascites Current visit: Yes Status: Acute Qualifiers: Hepatic cirrhosis type: unspecified hepatic cirrhosis Qualified Code(s): K74.60 - Unspecified cirrhosis of liver; R18.8 - Other ascites Category: Medical Code(s): K74.60 - Unspecified cirrhosis of liver; R18.8 - Other ascites Patient will be given IV Lasix 40 mg today (5) Confusion Current visit: Yes Status: Acute Category: Medical Code(s): R41.0 - Disorientation, unspecified (6) Hypercalcemia Current visit: Yes Status: Acute Category: Medical Code(s): E83.52 - Hypercalcemia Patient was started on calcitonin yesterday. Her calcium has trended down with IV fluids. (7) Anemia of chronic disease Current visit: No Status: Acute Category: Medical Code(s): D63.8 - Anemia in other chronic diseases classified elsewhere (8) On Coumadin for atrial fibrillation Current visit: No Status: Acute Category: Medical Code(s): Z78.9 - Other specified health status (9) Stage III chronic kidney disease Current visit: No Status: Acute Category: Medical Code(s): N18.3 - Chronic kidney disease, stage 3 (moderate) Renal function is stable at this time (10) Hypertension Current visit: No Status: Chronic Qualifiers: Hypertension type: essential hypertension Qualified Code(s): I10 - Essential (primary) hypertension Category: Medical Code(s): I10 - Essential (primary) hypertension (11) CKD (chronic kidney disease) Current visit: Yes Status: Acute Category: Medical Code(s): N18.9 - Chronic kidney disease, unspecified (12) Atrial fibrillation with RVR Current visit: No Status: Chronic Category: Medical Code(s): I48.91 - Unspecified atrial fibrillation
[2018-11-09 07:44] LABS: Albumin Level 2.5 gm/dL (3.4-5.0); Bilirubin,Direct 0.7 mg/dL (0.0-0.2); Bilirubin,Indirect 0.8 mg/dL (0.0-0.9); Bilirubin,Total 1.5 mg/dL (0.2-1.0); Total Protein,Serum 6.9 gm/dL (6.4-8.2)
--- NOTE | 2018-11-09 09:27 | Progress Note ---
Addendum entered and electronically signed by LAURA Kiser 11/09/18 14:17: Med changes for attempt at better BP control: Stop amlodipine and cardene gtt Start procardia XL 60 mg BID doxazosin 2 mg qhs imdur 60 mg daily Would like to avoid hydralazine and clonidine. Original Note: Subjective Date: 11/09/18 Time: 09:24 Principal diagnosis: Tachybrady syndrome Interval history: 68 yo BF in bed in NAD. Rough night per nursing staff with confusion and yelling out. Still with elevated BP despite multiple meds. Etiology of cirrhosis is under evaluation and was supposed to have a liver biopsy today at . Telemetry shows sinus rhythm on current meds without recurrent pauses or recurrent third degree AV block. Exam Vital signs and Labs for Last 24 Hours: Temp Pulse Resp BP Pulse Ox 97.8 F 83 23 140/99 H 92 L 11/09/18 08:00 11/09/18 08:00 11/09/18 08:00 11/09/18 08:00 11/09/18 08:00 Laboratory Results - last 24 hr 11/08/18 05:32: POC Glucose 76 11/08/18 11:36: POC Glucose 83 11/08/18 17:16: POC Glucose 93 11/08/18 20:59: POC Glucose 85 11/09/18 05:20: Sodium 144, Potassium 3.4 L, Chloride 108 H, Carbon Dioxide 27, Anion Gap 12.4, BUN 29 H, Creatinine 1.60 H, Estimated Creat Clear 41, Estimated GFR 32 L, Est GFR ( Amer) 39 L, Glucose 99, Calcium 11.3 H 11/09/18 05:20: Total Bilirubin 1.5 H, Direct Bilirubin 0.7 H, Indirect Bilirubin 0.8, AST 32, ALT 20, Alkaline Phosphatase 339 H, Total Protein 6.9, Albumin 2.5 L 11/09/18 06:00: WBC 7.3 D, RBC 4.20, Hgb 10.8 L, Hct 35.9 L, MCV 85.4, MCH 25.7 L, MCHC 30.1 L, RDW 17.4, Plt Count 295 D, MPV 7.8, Neut % (Auto) 83.5 H, Lymph % (Auto) 8.1 L, [place] % (Auto) 7.3, Eos % (Auto) 0.8, Baso % (Auto) 0.4, Neut # (Auto) 6.1, Lymph # (Auto) 0.6 L, [place] # (Auto) 0.5, Eos # (Auto) 0.1, Baso # (Auto) 0.0 11/09/18 06:00: PT 12.4 H, INR 1.21 H 11/09/18 06:00: Lipase 295 I & O for Last 24 hours: Intake & Output 11/06/18 11/07/18 11/08/18 11/09/18 11:59 11:59 11:59 11:59 Intake Total 2435 / 2435 1805 / 1805 1572 / 1572 Output Total 200 / 200 2150 / 2150 450 / 450 Balance 2235 / 2235 -345 / -345 1122 / 1122 Weight 178 lb 170 lb 5 oz 170 lb 4.984 oz 167 lb 7 oz Microbiology Reports for the Last 24 Hours: Microbiology 11/06/18 19:40 Urine,Catheterized Urine Culture - Final Multiple organisms, suggests contamination. - *Routine Respiratory Exam Present: diminished air movement. Absent: accessory muscle use, rales, rhonchi, wheezes - *Routine Cardiovascular Exam Present: RRR. Absent: murmur, gallop, rubs Comments: Frequent PVC's noted on telemetry - *Routine Extremities Exam Present: edema. Absent: calf tenderness - *Routine Neurological Exam Present: alert, moving all extremities Progress Note: A&P (1) Third degree AV block Status: Acute Assessment and plan: Resolved with change in meds. Current Visit: Yes (2) Asystole Status: Acute Assessment and plan: No recurrence on current meds. Current Visit: Yes (3) Acute pancreatitis Status: Acute Current Visit: Yes (4) Cirrhosis of liver with ascites Status: Acute Current Visit: Yes (5) Confusion Status: Acute Current Visit: Yes (6) Hypercalcemia Status: Acute Current Visit: Yes (7) Anemia of chronic disease Status: Acute Current Visit: No (8) On Coumadin for atrial fibrillation Status: Acute Current Visit: No (9) Stage III chronic kidney disease Status: Acute Current Visit: No (10) Hypertension Status: Chronic Current Visit: No (11) CKD (chronic kidney disease) Status: Acute Current Visit: Yes (12) Atrial fibrillation with RVR Status: Chronic Current Visit: No Assessment and Plan for All Diagnoses:: HTN still not controlled despite higher doses of multiple meds. High grade AV block, resolved on current meds. Pt may need higher doses of beta vandana for BP control but will likely need pacemaker in that situation. Renal duplex normal. Despite improving lab values, patient clinical status remains unchanged. Discussed transfer to with Dr. Albrecht for further treatment.
--- NOTE | 2018-11-09 12:29 | Discharge Summary ---
General - General Admission date:: 11/06/18 Discharge date: 11/09/18 HPI HPI: 68 year old female brought to ER by family over episodes of confusion starting yesterday evening. Patient admits she had "trouble talking" and trouble walking" this morning. She feels better at time of exam then she did this a.m. She was sein in office yesterday and given oxycodone for abdominal pain. She did take one over night. In the ER evaluation did reveal findings of mild pancreatitis as well as hypercalcemia. She has been admitted for IV fluids, pain control. Hospital Course Hospital Course: Patient was admitted for treatment of her pancreatitis and hypercalcemia. She has had her gallbladder removed, does not drink alcohol, and triglycerides have been normal in office. The etiology of her pancreatitis was unclear and not to be likely due to associated liver disease (cirrhosis). Patient initially started on normal saline at 200 mL's per hour. Overnight the first night of admission however she became hypoglycemic and was changed to D5 half-normal saline. The D5 half-normal saline did keep her blood sugars between 80 and the low 100s. Regarding her pancreatitis her epigastric pain waxed and waned. Patient was greater than 1000 on admission and did decrease by the day of discharge. However patient was only able to tolerate clear liquids on the morning of the . Later in the day on the she developed recurrent abdominal pain and was made n.p.o. once again. Because her CT scan showed changes to either pancreatitis or possible peritonitis patient was started on Invanz 1 g IV daily Patient's hypercalcemia was treated with fluids initially. On the patient was started on subcutaneous calcitonin. Admission hypercalcemia was 0.4 on the day of discharge calcium decreased to 11.3. Shortly after admission on November 06 patient was found to be bradycardic and on telemetry monitoring was showing heart block which appeared to be 1/3 degree heart block and she even had periods of asystole. Patient was taking carvedilol 20 mg twice daily and digoxin daily. Patient given 1 mg of glucagon to reverse her beta-vandana effect and Digibind to reverse the effects of digoxin. This resolved the patient's heart block and the remainder of admission the was either in atrial flutter or sinus rhythm with occasional sinus tachycardia. Cardiology was consulted on the day of admission and initial plan had been for pacemaker implantation and to resume the patient's rate control medicines for her underlying atrial fibrillation which is long-standing. However when it became necessary to transfer the patient pacemaker implantation was canceled. Patient has long history of atrial fibrillation with takes warfarin. Patient's dosing was therapeutic while hospitalized. This actually delayed her pacemaker implantation by 1 day until addition was made to cancel the pacemaker implantation. Patient developed hypokalemia after she was given intravenous Lasix for ascites related to her cirrhosis. Her potassium was replaced with IV runs of potassium as well as addition of potassium to her maintenance fluids. Patient has cirrhosis of the were of unknown etiology. She is currently undergoing workup with Dr. Shweta Castillo at the [facility]. Patient was actually scheduled for some procedure (patient did not know what procedure) on November 09. From my office records I believe this may have been her liver biopsy. Nonetheless this was canceled. Her abdominal distention from ascites did seem to improve with administration of intravenous Lasix because of ongoing fluid administration would recur. Patient's last dose of Lasix was on the day of discharge. Patient had mild acute kidney injury on admission. Her creatinine over the last 3-4 months has ranged from 1.6 to greater than 2. Medication adjustments have been made once her creatinine fabricio to above 2. Creatinine was going to on admission but with administration of fluids her creatinine decreased to 1.6. On November 09 patient was becoming increasingly more confused believe she was at home. While she could be reoriented for brief periods of time confusion would soon return. Patient's blood pressure has been severely elevated and she has even had prior admissions for hypertensive urgency and emergency. Thus previous hospitalizations generally included hypertension with associated headache or congestive heart failure from hypertensive heart disease. However blood pressures were greater than 200 systolic and greater than 130 diastolic on the morning of the . Patient was started on a nicardipine drip with goal systolic blood pressure to be 180 to begin with. Patient's hospitalization progressed her care became more complex and I believe she was best served by multidisciplinary care. I contacted [facility] intensive care physician Dr. Tom who accepted the patient. Patient was transferred to ICU when a bed was available. Objective Vital signs: Temp Pulse Resp BP Pulse Ox 97.8 F 83 23 164/103 H 92 L 11/09/18 08:00 11/09/18 11:00 11/09/18 08:00 11/09/18 11:00 11/09/18 08:00 Results Completed studies during hospitalization [Text1]: Abnormal Labs 11/06/18 11/06/18 11/06/18 10:15 10:15 10:15 WBC 4.7 L Hgb 11.7 L Hct MCH 26.3 L MCHC 31.6 L MPV 7.3 L Neut % (Auto) Lymph % (Auto) [place] % (Auto) Lymph # (Auto) 0.6 L PT 16.7 H INR 1.64 H Potassium 3.4 L Chloride BUN 29 H Creatinine 2.09 H Estimated GFR 24 L Est GFR ( Amer) 29 L POC Glucose Calcium 12.4 H* Ionized Calcium Total Bilirubin 1.4 H Direct Bilirubin Alkaline Phosphatase 384 H Ammonia Albumin 2.5 L Globulin 4.4 H Albumin/Globulin Ratio 0.6 L Lipase 25-OH Vitamin D Total Free T4 Index T3 Uptake Urine Opiates Screen 11/06/18 11/06/18 11/06/18 10:15 10:15 10:15 WBC Hgb Hct MCH MCHC MPV Neut % (Auto) Lymph % (Auto) [place] % (Auto) Lymph # (Auto) PT INR Potassium Chloride BUN Creatinine Estimated GFR Est GFR ( Amer) POC Glucose Calcium Ionized Calcium 7.6 H Total Bilirubin Direct Bilirubin Alkaline Phosphatase Ammonia Albumin Globulin Albumin/Globulin Ratio Lipase 1077 H 25-OH Vitamin D Total Free T4 Index 5.0 L T3 Uptake 42 H Urine Opiates Screen 11/06/18 11/06/18 11/06/18 10:40 10:40 19:40 WBC Hgb Hct MCH MCHC MPV Neut % (Auto) Lymph % (Auto) [place] % (Auto) Lymph # (Auto) PT INR Potassium Chloride BUN Creatinine Estimated GFR Est GFR ( Amer) POC Glucose Calcium Ionized Calcium Total Bilirubin Direct Bilirubin Alkaline Phosphatase Ammonia < 10 L Albumin Globulin Albumin/Globulin Ratio Lipase 25-OH Vitamin D Total 9.9 L Free T4 Index T3 Uptake Urine Opiates Screen Positive H 11/06/18 11/07/18 11/07/18 21:33 06:00 07:45 WBC 4.5 L Hgb 11.0 L Hct 35.0 L MCH 26.1 L MCHC 31.4 L MPV Neut % (Auto) Lymph % (Auto) [place] % (Auto) 9.4 H Lymph # (Auto) 0.5 L PT INR Potassium Chloride 108 H BUN 31 H Creatinine 1.93 H Estimated GFR 26 L Est GFR ( Amer) 31 L POC Glucose 61 L Calcium 11.4 H Ionized Calcium Total Bilirubin Direct Bilirubin Alkaline Phosphatase Ammonia Albumin Globulin Albumin/Globulin Ratio Lipase 727 H 25-OH Vitamin D Total Free T4 Index T3 Uptake Urine Opiates Screen 11/07/18 11/07/18 11/08/18 07:45 07:45 05:38 WBC Hgb 11.3 L Hct 36.6 L MCH 26.0 L MCHC 31.0 L MPV Neut % (Auto) Lymph % (Auto) [place] % (Auto) 11.8 H Lymph # (Auto) 0.6 L PT 25.9 H INR 2.58 H Potassium 3.0 L Chloride BUN 31 H Creatinine 1.93 H Estimated GFR 26 L Est GFR ( Amer) 31 L POC Glucose Calcium 11.6 H Ionized Calcium Total Bilirubin 1.4 H Direct Bilirubin 0.9 H Alkaline Phosphatase 349 H Ammonia Albumin 2.4 L Globulin Albumin/Globulin Ratio Lipase 25-OH Vitamin D Total Free T4 Index T3 Uptake Urine Opiates Screen 11/08/18 11/08/18 11/09/18 05:38 05:38 05:20 WBC Hgb Hct MCH MCHC MPV Neut % (Auto) Lymph % (Auto) [place] % (Auto) Lymph # (Auto) PT 20.4 H INR 2.02 H Potassium 2.9 L* 3.4 L Chloride 108 H 108 H BUN 29 H 29 H Creatinine 1.69 H 1.60 H Estimated GFR 30 L 32 L Est GFR ( Amer) 37 L 39 L POC Glucose Calcium 11.4 H 11.3 H Ionized Calcium Total Bilirubin 1.4 H Direct Bilirubin 0.7 H Alkaline Phosphatase 348 H Ammonia Albumin 2.3 L Globulin Albumin/Globulin Ratio Lipase 25-OH Vitamin D Total Free T4 Index T3 Uptake Urine Opiates Screen 11/09/18 11/09/18 11/09/18 05:20 06:00 06:00 WBC Hgb 10.8 L Hct 35.9 L MCH 25.7 L MCHC 30.1 L MPV Neut % (Auto) 83.5 H Lymph % (Auto) 8.1 L [place] % (Auto) Lymph # (Auto) 0.6 L PT 12.4 H INR 1.21 H Potassium Chloride BUN Creatinine Estimated GFR Est GFR ([facility] Amer) POC Glucose Calcium Ionized Calcium Total Bilirubin 1.5 H Direct Bilirubin 0.7 H Alkaline Phosphatase 339 H Ammonia Albumin 2.5 L Globulin Albumin/Globulin Ratio Lipase 25-OH Vitamin D Total Free T4 Index T3 Uptake Urine Opiates Screen 11/09/18 08:43 WBC Hgb Hct MCH MCHC MPV Neut % (Auto) Lymph % (Auto) [place] % (Auto) Lymph # (Auto) PT INR Potassium Chloride BUN Creatinine Estimated GFR Est GFR ([facility] Amer) POC Glucose Calcium Ionized Calcium Total Bilirubin Direct Bilirubin Alkaline Phosphatase Ammonia 10 L Albumin Globulin Albumin/Globulin Ratio Lipase 25-OH Vitamin D Total Free T4 Index T3 Uptake Urine Opiates Screen Labs on day of discharge: Labs from last 24 hours 11/09/18 11/09/18 11/09/18 08:43 06:00 06:00 WBC RBC Hgb Hct MCV MCH MCHC RDW Plt Count MPV Neut % (Auto) Lymph % (Auto) [place] % (Auto) Eos % (Auto) Baso % (Auto) Neut # (Auto) Lymph # (Auto) [place] # (Auto) Eos # (Auto) Baso # (Auto) PT 12.4 H INR 1.21 H Sodium Potassium Chloride Carbon Dioxide Anion Gap BUN Creatinine Estimated Creat Clear Estimated GFR Est GFR ([facility]) Glucose POC Glucose Calcium Total Bilirubin Direct Bilirubin Indirect Bilirubin AST ALT Alkaline Phosphatase Ammonia 10 L Total Protein Albumin Lipase 295 11/09/18 11/09/18 11/09/18 06:00 05:20 05:20 WBC 7.3 D RBC 4.20 Hgb 10.8 L Hct 35.9 L MCV 85.4 MCH 25.7 L MCHC 30.1 L RDW 17.4 Plt Count 295 D MPV 7.8 Neut % (Auto) 83.5 H Lymph % (Auto) 8.1 L [place] % (Auto) 7.3 Eos % (Auto) 0.8 Baso % (Auto) 0.4 Neut # (Auto) 6.1 Lymph # (Auto) 0.6 L [place] # (Auto) 0.5 Eos # (Auto) 0.1 Baso # (Auto) 0.0 PT INR Sodium 144 Potassium 3.4 L Chloride 108 H Carbon Dioxide 27 Anion Gap 12.4 BUN 29 H Creatinine 1.60 H Estimated Creat Clear 41 Estimated GFR 32 L Est GFR ([facility] Amer) 39 L Glucose 99 POC Glucose Calcium 11.3 H Total Bilirubin 1.5 H Direct Bilirubin 0.7 H Indirect Bilirubin 0.8 AST 32 ALT 20 Alkaline Phosphatase 339 H Ammonia Total Protein 6.9 Albumin 2.5 L Lipase 11/08/18 11/08/18 11/08/18 20:59 17:16 11:36 WBC RBC Hgb Hct MCV MCH MCHC RDW Plt Count MPV Neut % (Auto) Lymph % (Auto) [place] % (Auto) Eos % (Auto) Baso % (Auto) Neut # (Auto) Lymph # (Auto) [place] # (Auto) Eos # (Auto) Baso # (Auto) PT INR Sodium Potassium Chloride Carbon Dioxide Anion Gap BUN Creatinine Estimated Creat Clear Estimated GFR Est GFR ( Amer) Glucose POC Glucose 85 93 83 Calcium Total Bilirubin Direct Bilirubin Indirect Bilirubin AST ALT Alkaline Phosphatase Ammonia Total Protein Albumin Lipase 11/08/18 05:32 WBC RBC Hgb Hct MCV MCH MCHC RDW Plt Count MPV Neut % (Auto) Lymph % (Auto) [place] % (Auto) Eos % (Auto) Baso % (Auto) Neut # (Auto) Lymph # (Auto) [place] # (Auto) Eos # (Auto) Baso # (Auto) PT INR Sodium Potassium Chloride Carbon Dioxide Anion Gap BUN Creatinine Estimated Creat Clear Estimated GFR Est GFR ( Amer) Glucose POC Glucose 76 Calcium Total Bilirubin Direct Bilirubin Indirect Bilirubin AST ALT Alkaline Phosphatase Ammonia Total Protein Albumin Lipase DS: Diagnosis - Discharge Diagnosis (1) Third degree AV block Status: Acute (2) Asystole Status: Acute (3) Acute pancreatitis Status: Acute (4) Cirrhosis of liver with ascites Status: Acute (5) Confusion Status: Acute (6) Hypercalcemia Status: Acute (7) Anemia of chronic disease Status: Acute (8) On Coumadin for atrial fibrillation Status: Acute (9) Stage III chronic kidney disease Status: Acute (10) Hypertension Status: Chronic (11) CKD (chronic kidney disease) Status: Acute (12) Atrial fibrillation with RVR Status: Chronic (13) Hypertensive encephalopathy Status: Acute (14) Protein calorie malnutrition Status: Acute Discharge Plan - Patient Discharge Instructions ACTIVITY: Continue current activity DIET: continue same diet Patient Instructions: Cirrhosis, DI for Pancreatitis, DI for Pacemaker Insertion, DI for Surgical Site Infection, Hypercalcemia, Coumadin Vitamin K/ Diet, Coumadin Therapy Booklet - Follow up Plan Disposition: Xfer Short-Term Hosp Home Medications: Home Medications Medication Instructions Recorded Confirmed Type Atorvastatin Calcium [Atorvastatin 20 mg PO DAILY 11/20/17 11/06/18 History 20mg Tab] Carvedilol [Carvedilol 25mg Tab] 25 mg PO BID 11/20/17 11/06/18 History Hydralazine HCl [Hydralazine HCl 50 mg PO TID 11/20/17 11/06/18 History 25mg Tablet] cloNIDine HCl [cloNIDine 0.1mg 0.3 mg PO TID 11/20/17 11/06/18 History Tablet] Digoxin 125 mcg PO DAILY 08/05/18 11/06/18 History Warfarin Sodium 3 mg PO DAILY 08/05/18 11/06/18 History Losartan Potassium 50 mg PO DAILY 11/06/18 11/06/18 History Oxycodone HCl [OxyIR 5mg tablet] 2.5 - 5 mg PO Q6H 11/06/18 11/06/18 History Prescriptions/Medication Reconciliation: Continue Atorvastatin Calcium [Atorvastatin 20mg Tab] 20 mg PO DAILY Hydralazine HCl [Hydralazine HCl 25mg Tablet] 50 mg PO TID Carvedilol [Carvedilol 25mg Tab] 25 mg PO BID cloNIDine HCl [cloNIDine 0.1mg Tablet] 0.3 mg PO TID Digoxin 125 mcg PO DAILY Warfarin Sodium 3 mg PO DAILY Losartan Potassium 50 mg PO DAILY Oxycodone HCl [OxyIR 5mg tablet] 2.5 - 5 mg PO Q6H
== END 2018-11-09 23:43 | disposition short-term general hospital (02) | DRG 438 ==
LOC: ER 09:52 → 2ND 12:32 → ICU 11-07 20:25 → 2ND 11-09 17:56
PROVIDERS: ADMIT Family Medicine; ATTEND Family Medicine
CPT/HCPCS: 36415; 70450; 71010; 71045; 74176; 76536; 80048; 80053; 80076; 80162; 80305; 81001; 82140; 82150; 82330; 82652; 82962; 83690; 83735; 83970; 84100; 84436; 84443; 84479; 84484; 85025; 85610; 87086; 93005; 93306; 93976; 94761; 96365; 96375; 99285; J0630; J1162; J1335; J1610; J2405

== ENCOUNTER → 2019-01-09 13:12 | Outpatient (CLI) | payer MEDICARE, SELFPAY ==
--- NOTE | 2019-01-09 13:18 | XR_ITS ---
EXAM: XR lumbar spine min 4V HISTORY: ITS.REASON: LOW BACK PAIN ORDERING PHYSICIAN: Aldo Juarez MD PATIENT AGE: 68 years COMPARISON: None FINDINGS: Normal alignment. No fracture or dislocation. No lytic or blastic change. No significant degenerative change. The disc spaces are preserved. There is mild lumbar curvature convex right. There is a moderate amount of retained colonic feces rectosigmoid region IMPRESSION: No acute finding
== END ==
PROVIDERS: PCP Family Medicine; Visit Provider Family Medicine
DX: M54.5 Low back pain (principal)
CPT/HCPCS: 72110

== ENCOUNTER → 2019-01-17 15:30 | Outpatient (POV) | payer MEDICARE, SELFPAY | PROVIDERS: Visit Provider Internal Medicine Nephrology | DX: Z00.00 Encounter for general adult medical examination without abnormal findings (principal) ==

== ENCOUNTER → 2019-05-08 10:05 | Outpatient (CLI) | payer MEDICARE, SELFPAY ==
[2019-05-08 10:35] LABS: Basophils % 0.5 % (0.1-2.0); Eosinophils # 0.1 K/mm3 (0.0-0.4); Eosinophils % 3.1 % (0.1-12.0); Hematocrit 28.8 % (37.0-47.0); Hemoglobin 8.6 g/dL (12.2-16.2); Lymphocytes # 0.7 K/mm3 (0.7-4.5); Lymphocytes % 26.3 % (10-50); Mean Corpuscular HGB Conc 29.7 g/dL (31.8-35.4); Mean Corpuscular Volume 84.2 fl (81-99); Mean Platelet Volume 7.1 fl (7.4-10.4); Monocytes # 0.3 K/mm3 (0.1-1.0); Monocytes % 12.3 % (1.7-9.3); Neutrophils # 1.5 K/mm3 (1.8-7.8); Neutrophils % 57.7 % (37.0-80.0); Platelet Count 260 K/mm3 (142-424); Red Blood Count 3.42 M/mm3 (4.20-5.40); White Blood Count 2.7 K/mm3 (4.8-10.8)
[2019-05-08 11:07] LABS: Prothrombin Time 12.4 seconds (9.4-11.8)
[2019-05-08 11:53] LABS: Alanine Aminotransferase 8 U/L (12-78); Albumin/Globulin Ratio 0.6 (1.1-1.8); Alkaline Phosphatase 169 U/L (46-116); Anion Gap 11.2 mEq/L (5-15); Aspartate Amino Transferase 13 U/L (15-37); Bilirubin,Total 0.5 mg/dL (0.2-1.0); Blood Urea Nitrogen 37 mg/dL (7-18); Calcium 8.1 mg/dL (8.5-10.1); Carbon Dioxide 30 mmol/L (21.0-32.0); Chloride 104 mmol/L (98-107); Creatinine,Serum 2.14 mg/dL (0.55-1.02); Estimated Glomerular Filt Rate 23 ml/min (>60); GFR (African American) 28 ML/MIN (>60); Globulin 3.5 gm/dl (1.3-3.2); Glucose 77 mg/dL (74-106); Potassium 3.2 mmoL/L (3.5-5.1); Sodium 142 mmol/L (136-145); Total Protein,Serum 5.5 gm/dL (6.4-8.2)
== END ==
PROVIDERS: Visit Provider Internal Medicine Gastroenterology
DX: K74.60 Unspecified cirrhosis of liver (principal)
CPT/HCPCS: 36415; 80053; 85025; 85610

== ENCOUNTER → 2019-05-14 17:04 | Outpatient (CLI) | payer MEDICARE, SELFPAY | PROVIDERS: Visit Provider Family Medicine | DX: S81.801A Unspecified open wound, right lower leg, initial encounter (principal) | CPT/HCPCS: 87070; 87077; 87186; 87205 ==

== ENCOUNTER 2019-06-03 12:10 | Inpatient (IN) ==
[2019-06-03 14:34] LABS: Basophils % 0.6 % (0.1-2.0); Eosinophils % 1.5 % (0.1-12.0); Lymphocytes # 0.7 K/mm3 (0.7-4.5); Lymphocytes % 31.1 % (10-50); Mean Corpuscular HGB Conc 30.3 g/dL (31.8-35.4); Mean Corpuscular Volume 84.5 fl (81-99); Mean Platelet Volume 7.2 fl (7.4-10.4); Monocytes # 0.2 K/mm3 (0.1-1.0); Monocytes % 11.4 % (1.7-9.3); Neutrophils # 1.2 K/mm3 (1.8-7.8); Neutrophils % 55.5 % (37.0-80.0); Platelet Count 232 K/mm3 (142-424); Red Blood Count 2.61 M/mm3 (4.20-5.40); Red Cell Distribution Width 17.1 % (11.5-17.5); White Blood Count 2.1 K/mm3 (4.8-10.8)
[2019-06-03 14:35] LABS: INR 1.3 (0.9-1.1); Prothrombin Time 13.4 seconds (9.4-11.8)
--- NOTE | 2019-06-03 14:37 | Emergency Department Note ---
ED Disposition Clinical Impression: Anemia, Liver disease, Near syncope, RLL pneumonia Disposition: Admitted As Inpatient Condition on Discharge: Fair Referrals: Aldo Juarez MD [Primary Care Provider] - Time of Disposition: 15:51 - Critical Care Critical Care Time: No Attestation: On 06/03/19, the high probability of a clinically significant, sudden or life threatening deterioration of the following system(s) required my full and direct attention, intervention and personal management. The time I documented below is in addition to time spent performing reported procedures but includes the following listed in this critical care notation. Medical Decision Making - Medical Records Medical records reviewed: Yes: I reviewed the patient's medical records. - Rudy Inquiry Pt receiving controlled substance: No Rudy was queried for this patient: No Vital Signs: 06/03/19 12:09 06/03/19 13:28 06/03/19 15:06 Temperature 98.1 F Temperature Source Oral Pulse Rate [Left Radial] 77 74 85 Respiratory Rate 38 H 38 H Blood Pressure [Right Arm] 143/68 H 144/78 H 133/97 H Blood Pressure Mean [Right Arm] 93 100 109 Blood Pressure Source [Right Arm] Automatic Cuff Blood Pressure Position [Right Arm] Sitting Sitting 02 Sat by Pulse Oximetry 94 L 94 L Oxygen Delivery Method Room Air - Lab Data Lab results reviewed: Yes: I reviewed the patient's lab results. Lab Results 06/03/19 14:18: WBC 2.1 L, RBC 2.61 L, Hgb 6.7 L*, Hct 22.0 L*, MCV 84.5, MCH 25.6 L, MCHC 30.3 L, RDW 17.1, Plt Count 232, MPV 7.2 L, Neut % (Auto) 55.5, Lymph % (Auto) 31.1, [place] % (Auto) 11.4 H, Eos % (Auto) 1.5, Baso % (Auto) 0.6, Neut # (Auto) 1.2 L, Lymph # (Auto) 0.7, [place] # (Auto) 0.2, Eos # (Auto) 0.0, Baso # (Auto) 0.0 06/03/19 14:18: PT 13.4 H, INR 1.30 H 06/03/19 14:18: Sodium 148 H, Potassium 3.6, Chloride 111 H, Carbon Dioxide 31, Anion Gap 9.6, BUN 38 H, Creatinine 2.84 H, Estimated Creat Clear 21, Estimated GFR 17 L*, Est GFR ( Amer) 20 L, Glucose 77, Calcium 8.2 L, Total Bilirubin 0.5, AST 21, ALT 7 L, Alkaline Phosphatase 300 H, Troponin I < 0.02, Total Protein 5.8 L, Albumin 2.0 L, Globulin 3.8 H, Albumin/Globulin Ratio 0.5 L 06/03/19 14:18: Lipase 34 L 06/03/19 15:40: Stool Occult Blood Positive A Result diagrams: 06/03/19 14:18 06/03/19 14:18 Orders (Tests/Meds): ED MEDICATIONS Generic Name Dose Route Start Last Admin Trade Name Freq PRN Reason Stop Dose Admin Pantoprazole Sodium 80 mg/ 100 mls @ 10 mls/hr 06/03/19 15:45 Sodium Chloride IV 06/06/19 15:44 .Q10H SHENG Azithromycin 500 mg/ Sodium 250 mls @ 250 mls/hr 06/03/19 16:00 Chloride IV 06/17/19 15:59 Q24H SHENG Protocol Ceftriaxone Sodium 1 gm/ 50 mls @ 100 mls/hr 06/03/19 16:00 Sodium Chloride IV 06/17/19 15:59 Q24H SHENG Protocol ORDERS Category Date Time Status Type and Screen Stat BBK 06/03/19 15:42 Ordered US abdomen complete Stat Ultrasound 06/03/19 14:54 Taken - Physician Consults Physician Consulted: malvin Time: 15:52 Reason -: Admission, Pt condition, Gastroenterolgy Eval/Care General Adult HPI - General Chief complaint: Shortness of Breath/Dyspnea Stated complaint: soa Time Seen by Provider: 06/03/19 14:28 Mode of Arrival: EMS Limitations: No Limitations Description of Symptoms (Recalled from ER Triage Doc. by RN): to ed per squad with c/o sob starting yesterday states worse with lying flat and exertion. pt denies chest pain,cough, nausea, vomiting, edema. 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 states she was in hosp in [place] 2[place]4 weeks ago and "had a liver bx and fluid drained off abd" states abd is more distended over the last few days. cpta none - History of Present Illness HPI narrative: abdominal bloating, distention, fluid retention. Today, got dizzy and almost fell when walking secondary to shortness of breath - Related Data Home Medications Medication Instructions Recorded Confirmed Apixaban [Eliquis 5mg tab] 5 mg PO BID 06/03/19 06/03/19 Atorvastatin Calcium [Atorvastatin 20 mg PO DAILY 06/03/19 06/03/19 20mg Tab] Bumetanide 2 mg PO BID 06/03/19 06/03/19 Carvedilol [Carvedilol 25mg Tab] 25 mg PO DAILY 06/03/19 06/03/19 Collagenase Clostridium Hist. 1 each MC HS 06/03/19 06/03/19 [Collagenase] Ferrous Sulfate [Iron] 325 mg PO TID 06/03/19 06/03/19 Folic Acid/Vit B Complex and C 1 mg PO DAILY 06/03/19 06/03/19 [Activite Tablet] Hydralazine HCl [Hydralazine HCl 25 mg PO TID 06/03/19 06/03/19 25mg Tablet] Levothyroxine Sodium 100 mg PO DAILY 06/03/19 06/03/19 [Levothyroxine 100mcg (0.1MG) Tab] Pantoprazole Sodium [Protonix 40mg 40 mg PO BID 06/03/19 06/03/19 tablet] Spironolactone [Spironolactone 25 mg PO WEEKLY 06/03/19 06/03/19 25mg Tablet] metOLazone [metOLazone 2.5mg 2.5 mg PO DAILY 06/03/19 06/03/19 Tablet] Allergies Allergy/AdvReac Type Severity Reaction Status Date / Time No Known Allergies Allergy Verified 06/17/18 22:06 [facility] History - Hepatitis A Screen Drug use history?: No High risk sexual behaviors?: No History of sexually transmitted infection?: No Currently employed?: No Childcare worker?: No Do you have indoor plumbing?: Yes Do you have electricity?: Yes Attestation statement:: This patient has been screened for Hepatitis A risk factors. I have reviewed the patient's past medical history: Yes Medical History: Reports:: Arrhythmia, Congestive Heart Failure, Diabetes M ellitus Type 2, Hyperlipidemia, Hypertension Denies:: Cancer, Diabetes Mellitus Type 1, Internal Pacemaker, MRSA Laterality Cases: Right: Arthroscopy Shoulder Other Surgeries: Yes: Cholecystectomy, Tubal Ligation, Other. No: Pacemaker Amputation: No Fractures: No Comment: Cholecystectomy - Social History Smoking Status: Never smoker Alcohol Intake: never Occupational Status: disabled Housing: house Household Members: spouse Family Hx:: Diabetes, Heart Attack, Hyperlipidemia, Hypertension ROS Obtained: Yes All systems reviewed & no additional complaints - Constitutional Constitutional: Denies fever(s) - Eyes Eyes: Denies change in vision - Cardiovascular Cardiovascular: Denies chest pain, Reports dyspnea, Reports dyspnea on exertion - Respiratory Respiratory: Yes dyspnea - Gastrointestinal Gastrointestingal: Reports: other (distended abdomen) - Musculoskeletal Musculoskeletal: Denies joint pain, Denies joint stiffness, Denies joint swell ing - Integumentary/Breasts Skin/Breast: Denies rash, Denies skin pain - Neurologic Neurologic: Reports syncope, Reports other (near) - Hematologic/Lymphatic Henatologic/Lymphatic: Reports easy bleeding, Reports easy bruising Physical Exam - General General appearance: alert, in distress - Head Head exam: atraumatic, normocephalic, normal inspection - Eye Eye exam: Present: normal appearance - ENT ENT exam: Present: normal exam, normal oropharynx, mucous membranes moist, TM's normal bilaterally, normal external ear exam - Respiratory Respiratory exam: Present: respiratory distress, other (mild). Absent: normal lung sounds bilaterally - Cardiovascular Cardiovascular exam: Present: regular rate, normal rhythm - Abdominal Exam Abdominal exam: Present: soft, distention. Absent: tenderness - Extremities Exam Extremities exam: Present: other (wound [place] right leg, [facility] - Neurological Exam Neurological exam: Present: alert, oriented X3 - Psychiatric Psychiatric exam: Present: normal affect, normal mood
[2019-06-03 14:42] LABS: Hemoglobin 6.7 g/dL (12.2-16.2)
[2019-06-03 14:56] LABS: Albumin/Globulin Ratio 0.5 (1.1-1.8); Alkaline Phosphatase 300 U/L (46-116); Anion Gap 9.6 mEq/L (5-15); Aspartate Amino Transferase 21 U/L (15-37); Bilirubin,Total 0.5 mg/dL (0.2-1.0); Blood Urea Nitrogen 38 mg/dL (7-18); Calcium 8.2 mg/dL (8.5-10.1); Carbon Dioxide 31 mmol/L (21.0-32.0); Chloride 111 mmol/L (98-107); Globulin 3.8 gm/dl (1.3-3.2); Glucose 77 mg/dL (74-106); Sodium 148 mmol/L (136-145); Total Protein,Serum 5.8 gm/dL (6.4-8.2)
[2019-06-03 15:09] LABS: Alanine Aminotransferase 7 U/L (12-78)
--- NOTE | 2019-06-03 18:29 | History & Physical Report ---
*Admission Date: 06/03/19 *Chief complaint: Black stool *History of present illness: 68-year-old female presented to the emergency department with shortness of breath and concern over passing black stools over the last 2 to 3 days including today. Patient had an similar episode approximately a month ago while she was visiting her daughter who lives in [place]. Patient was admitted to the hospital in [place] and transfused blood. She has had an EGD and colonoscopy in January of this year by Dr. Buchanan. Colonoscopy revealed hemorrhoids. EGD did not reveal any AVMs. There was evidence of chronic gastritis. There were no varices. Patient is followed with the liver clinic at the [facility] due to cirrhosis of unknown etiology and had a liver biopsy in April of this year. Patient does not know any specifics from the liver biopsy other than it confirmed cirrhosis. [facility] History I have reviewed the patient's past medical history: Yes Medical History: Reports:: Arrhythmia, Atrial Fibrillation, Congestive Heart Failure, Diabetes Mellitus Type 2, Hyperlipidemia, Hypertension Denies:: Cancer, Diabetes Mellitus Type 1, Internal Pacemaker, MRSA *Have you ever received a pneumonia vaccine?: No *Have you received a flu vaccine this season?: No Comment:: Cirrhosis of the liver, pulmonary sarcoidosis Laterality Cases: Right: Arthroscopy Shoulder Other Surgeries: Yes: Cholecystectomy, Tubal Ligation, Other. No: Pacemaker Amputation: No Fractures: No - *Social History Smoking Status: Never smoker Alcohol Intake: never *Occupational Status:: disabled Housing: house Household Members: spouse *Travel in the last 8 weeks: None Family Hx:: Diabetes, Heart Attack, Hyperlipidemia, Hypertension Review of Systems - Constitutional Denies body ache(s), Denies chills, Denies fever(s), Denies night sweats - *Cardiovascular Reports shortness of breath with activity, Reports generalized swelling, Denies chest pain, Denies chest pain at rest - *Gastrointestinal Reports abdominal pain, Reports bloating, Reports black, tarry stools, Denies coffee ground vomit, Denies constipation - *Neurologic Reports fainting, Reports other (near) Meds Home Medications Medication Instructions Recorded Confirmed Type Apixaban [Eliquis 5mg tab] 5 mg PO BID 06/03/19 06/03/19 History Atorvastatin Calcium [Atorvastatin 20 mg PO DAILY 06/03/19 06/03/19 History 20mg Tab] Bumetanide 2 mg PO BID 06/03/19 06/03/19 History Carvedilol [Carvedilol 25mg Tab] 25 mg PO DAILY 06/03/19 06/03/19 History Collagenase Clostridium Hist. 1 each MC HS 06/03/19 06/03/19 History [Collagenase] Ferrous Sulfate [Iron] 325 mg PO TID 06/03/19 06/03/19 History Folic Acid/Vit B Complex and C 1 mg PO DAILY 06/03/19 06/03/19 History [Activite Tablet] Hydralazine HCl [Hydralazine HCl 25 mg PO TID 06/03/19 06/03/19 History 25mg Tablet] Levothyroxine Sodium 100 mg PO DAILY 06/03/19 06/03/19 History [Levothyroxine 100mcg (0.1MG) Tab] Pantoprazole Sodium [Protonix 40mg 40 mg PO BID 06/03/19 06/03/19 History tablet] Spironolactone [Spironolactone 25 mg PO WEEKLY 06/03/19 06/03/19 History 25mg Tablet] metOLazone [metOLazone 2.5mg 2.5 mg PO DAILY 06/03/19 06/03/19 History Tablet] Allergies Allergy/AdvReac Type Severity Reaction Status Date / Time No Known Allergies Allergy Verified 06/17/18 22:06 Exam Vital signs and Labs for Last 24 Hours: Temp Pulse Resp BP Pulse Ox 98 F 74 32 H 137/88 96 06/03/19 18:20 06/03/19 18:20 06/03/19 18:20 06/03/19 18:20 06/03/19 17:56 Laboratory Results - last 24 hr 06/03/19 14:18: WBC 2.1 L, RBC 2.61 L, Hgb 6.7 L*, Hct 22.0 L*, MCV 84.5, MCH 25.6 L, MCHC 30.3 L, RDW 17.1, Plt Count 232, MPV 7.2 L, Neut % (Auto) 55.5, Lymph % (Auto) 31.1, [place] % (Auto) 11.4 H, Eos % (Auto) 1.5, Baso % (Auto) 0.6, Neut # (Auto) 1.2 L, Lymph # (Auto) 0.7, [place] # (Auto) 0.2, Eos # (Auto) 0.0, Baso # (Auto) 0.0 06/03/19 14:18: PT 13.4 H, INR 1.30 H 06/03/19 14:18: Sodium 148 H, Potassium 3.6, Chloride 111 H, Carbon Dioxide 31, Anion Gap 9.6, BUN 38 H, Creatinine 2.84 H, Estimated Creat Clear 21, Estimated GFR 17 L*, Est GFR ( Amer) 20 L, Glucose 77, Calcium 8.2 L, Total Bilirubin 0.5, AST 21, ALT 7 L, Alkaline Phosphatase 300 H, Troponin I < 0.02, Total Protein 5.8 L, Albumin 2.0 L, Globulin 3.8 H, Albumin/Globulin Ratio 0.5 L 06/03/19 14:18: Lipase 34 L 06/03/19 15:40: Stool Occult Blood Positive A I & O for Last 24 hours: Intake & Output 06/01/19 06/02/19 06/03/19 06/04/19 11:59 11:59 11:59 11:59 Weight 150 lb Narrative: -[place]ub[place] female who appears older than her stated age. Head exam is unremarkable. Eyes have pupils are reactive to light. Oropharynx is dry. Neck is without lymphadenopathy or carotid bruits. Lungs are clear to auscultation. Heart has an irregular rate and rhythm. Abdomen is distended with positive fluid wave. Extremities are warm to the touch. She has active range of motion in arms and legs. 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 Current visit: Yes Status: Acute Category: Medical Code(s): Z79.01 - halfway (current) use of anticoagulants As this is the patient's second episode of GI bleeding within the last 1 to 2 months and her scopes do not identify a potential source of bleeding she will need to discontinue anticoagulants permanently and have capsule endoscopy in the future (3) Ascites of liver Current visit: Yes Status: Acute Category: Medical Code(s): R18.8 - Other ascites Eliquis will be held and plan for paracentesis under ultrasound guidance on Monday (4) Cirrhosis Current visit: No Status: Chronic Qualifiers: Hepatic cirrhosis type: unspecified hepatic cirrhosis Ascites presence: unspecified Qualified Code(s): K74.60 - Unspecified cirrhosis of liver Category: Medical Code(s): K74.60 - Unspecified cirrhosis of liver (5) Hypertension Current visit: No Status: Chronic Qualifiers: Hypertension type: essential hypertension Qualified Code(s): I10 - Essential (primary) hypertension Category: Medical Code(s): I10 - Essential (primary) hypertension Continue home medications (6) Renal insufficiency Current visit: No Status: Chronic Category: Medical Code(s): N28.9 - Disorder of kidney and ureter, unspecified
[2019-06-04 06:03] LABS: White Blood Count 2.6 K/mm3 (4.8-10.8)
[2019-06-04 06:04] LABS: Mean Corpuscular HGB Conc 30.5 g/dL (31.8-35.4); Mean Corpuscular Volume 87.3 fl (81-99); Neutrophils % 53.5 % (37.0-80.0); Platelet Count 199 K/mm3 (142-424); Red Blood Count 3.33 M/mm3 (4.20-5.40); Red Cell Distribution Width 16.6 % (11.5-17.5)
[2019-06-04 06:05] LABS: Basophils % 0.7 % (0.1-2.0); Eosinophils # 0.1 K/mm3 (0.0-0.4); Eosinophils % 1.7 % (0.1-12.0); Lymphocytes # 0.7 K/mm3 (0.7-4.5); Lymphocytes % 26.3 % (10-50); Monocytes # 0.3 K/mm3 (0.1-1.0); Monocytes % 11.6 % (1.7-9.3); Neutrophils # 1.4 K/mm3 (1.8-7.8)
[2019-06-04 06:06] LABS: Hemoglobin 8.9 g/dL (12.2-16.2)
[2019-06-04 06:15] LABS: Anion Gap 10.6 mEq/L (5-15); Calcium 7.8 mg/dL (8.5-10.1)
--- NOTE | 2019-06-04 07:14 | Progress Note ---
Internal Medicine - PN: Subj *Date: 06/04/19 *Time: 07:10 Interval history: Patient reports feeling a little better. She denies any further bowel movements. She feels intermittently short of breath. Exam Vital signs and Labs for Last 24 Hours: Temp Pulse Resp BP Pulse Ox 98.0 F 76 17 109/71 L 97 06/04/19 04:35 06/04/19 04:35 06/04/19 04:35 06/04/19 04:35 06/04/19 04:35 Laboratory Results - last 24 hr 06/03/19 14:18: WBC 2.1 L, RBC 2.61 L, Hgb 6.7 L*, Hct 22.0 L*, MCV 84.5, MCH 25.6 L, MCHC 30.3 L, RDW 17.1, Plt Count 232, MPV 7.2 L, Neut % (Auto) 55.5, Lymph % (Auto) 31.1, [place] % (Auto) 11.4 H, Eos % (Auto) 1.5, Baso % (Auto) 0.6, Neut # (Auto) 1.2 L, Lymph # (Auto) 0.7, [place] # (Auto) 0.2, Eos # (Auto) 0.0, Baso # (Auto) 0.0 06/03/19 14:18: PT 13.4 H, INR 1.30 H 06/03/19 14:18: Sodium 148 H, Potassium 3.6, Chloride 111 H, Carbon Dioxide 31, Anion Gap 9.6, BUN 38 H, Creatinine 2.84 H, Estimated Creat Clear 21, Estimated GFR 17 L*, Est GFR ( Amer) 20 L, Glucose 77, Calcium 8.2 L, Total Bilirubin 0.5, AST 21, ALT 7 L, Alkaline Phosphatase 300 H, Troponin I < 0.02, Total Protein 5.8 L, Albumin 2.0 L, Globulin 3.8 H, Albumin/Globulin Ratio 0.5 L 06/03/19 14:18: Lipase 34 L 06/03/19 15:35: Blood Type B Positive, Antibody Screen Negative, Crossmatch (AHG) See Detail 06/03/19 15:40: Stool Occult Blood Positive A 06/03/19 20:00: Blood Type Confirm B Positive 06/04/19 05:20: WBC 2.6 L, RBC 3.33 L D, Hgb 8.9 L D, Hct 29.0 L, MCV 87.3, MCH 26.6 L, MCHC 30.5 L, RDW 16.6, Plt Count 199, MPV 7.0 L, Neut % (Auto) 53.5, Lymph % (Auto) 26.3, [place] % (Auto) 11.6 H, Eos % (Auto) 1.7, Baso % (Auto) 0.7, Neut # (Auto) 1.4 L, Lymph # (Auto) 0.7, [place] # (Auto) 0.3, Eos # (Auto) 0.1, Baso # (Auto) 0.0 06/04/19 05:20: Sodium 146 H, Potassium 3.6, Chloride 110 H, Carbon Dioxide 29, Anion Gap 10.6, BUN 39 H, Creatinine 2.79 H, Estimated Creat Clear 29, Estimated GFR 17 L*, Est GFR ( Amer) 21 L, Glucose 70 L, Calcium 7.8 L I & O for Last 24 hours: Intake & Output 06/01/19 06/02/19 06/03/19 06/04/19 11:59 11:59 11:59 11:59 Intake Total 651 / 651 Output Total 400 / 400 Balance 251 / 251 Weight 206 lb 1 oz Narrative: She is in no distress. Lungs are clear. Heart has an irregular rate and rhythm. Abdomen is soft Assessment and Plan (1) Anemia due to blood loss, acute Current visit: Yes Status: Acute Category: Medical Code(s): D62 - Acute posthemorrhagic anemia (2) Current use of assisted anticoagulation Current visit: Yes Status: Acute Category: Medical Code(s): Z79.01 - termination clerk (current) use of anticoagulants (3) Ascites of liver Current visit: Yes Status: Acute Category: Medical Code(s): R18.8 - Other ascites (4) Cirrhosis Current visit: No Status: Chronic Qualifiers: Hepatic cirrhosis type: unspecified hepatic cirrhosis Ascites presence: uns pecified Qualified Code(s): K74.60 - Unspecified cirrhosis of liver Category: Medical Code(s): K74.60 - Unspecified cirrhosis of liver (5) Hypertension Current visit: No Status: Chronic Qualifiers: Hypertension type: essential hypertension Qualified Code(s): I10 - Essential (primary) hypertension Category: Medical Code(s): I10 - Essential (primary) hypertension (6) Renal insufficiency Current visit: No Status: Chronic Category: Medical Code(s): N28.9 - Disorder of kidney and ureter, unspecified (7) RLL pneumonia Current visit: Yes Status: Suspected Category: Medical Code(s): J18.1 - Lobar pneumonia, unspecified organism - Assessment and plan all Dx Assessment and Plan for all problems:: 1. Repeat H&H this afternoon 2. Tylenol as needed for pain 3. PA and lateral chest x-ray due to the abnormal portable chest x-ray and shortness of breath 4. PT eval today 5. Wound eval today as she has been seen locally in wound care for the right lower extremity ulcer
--- NOTE | 2019-06-04 07:49 | Pharmacy Consult Notes ---
[facility] Pharmacy VTE Monitoring - Patient Demographics Admission date: 06/03/19 Report Date: 06/04/19 Time: 07:49 Allergies/Adverse Reactions: Patient Allergies No Known Allergies Allergy (Verified 06/17/18 22:06) Height: 1.68 m Weight: 93.468 kg Patient Problems: Current Active Problems Anemia (Acute) Liver disease (Acute) Near syncope (Acute) Anemia due to blood loss, acute (Acute) Current use of intermediate designer anticoagulation (Acute) Ascites of liver (Acute) - VTE Risk Labs: VTE Related Lab Results Hgb 8.9 g/dL (12.2-16.2) L D 06/04/19 05:20 Hct 29.0 % (37.0-47.0) L 06/04/19 05:20 Plt Count 199 K/mm3 (142-424) 06/04/19 05:20 PT 13.4 seconds (9.4-11.8) H 06/03/19 14:18 INR 1.30 (0.9-1.1) H 06/03/19 14:18 BUN 39 mg/dL (7-18) H 06/04/19 05:20 Creatinine 2.79 mg/dL (0.55-1.02) H 06/04/19 05:20 Estimated Creat Clear 29 mL/min (50-200) 06/04/19 05:20 VTE Score: 6 VTE Risk Level: Moderate Risk - Prophylaxis VTE Prophylaxis Ordered?: Yes Types of VTE Prophylaxis: TEDS Knee High Location of Applied Device: Bilateral Lower Extremeties - VTE Diagnosis Confirmed Treatment or plan recommended: Continue Current Treatment
[2019-06-04 14:50] LABS: Hematocrit 28.7 % (37.0-47.0); Hemoglobin 8.8 g/dL (12.2-16.2)
--- NOTE | 2019-06-04 17:12 | Electrocardiograph Report ---
APPROVED REPORT Exam: Resting ECG HR:84 bpm ECG Measurements Heart Rate 84 AXES NJ 178 P 78 QRSd 92 QRS -32 QT 426 T98 QTc 503 <Conclusion> Normal sinus rhythm Left axis deviation LAHB Poor R Wave Progression Abnormal ECG Electronically signed by : Colt Aguirre, 06/04/2019 17:11:40
--- NOTE | 2019-06-05 07:43 | Progress Note ---
Internal Medicine - PN: Subj *Date: 06/05/19 *Time: 07:41 Interval history: Patient has no new complaints this morning. The shortness of breath that was present on admission has essentially resolved. Her ascites remains. She admits to sensation of heaviness because of the ascites. Her last dose of Eliquis was on the morning of June 03 Exam Vital signs and Labs for Last 24 Hours: Temp Pulse Resp BP Pulse Ox 98.6 F 70 20 106/71 L 100 06/05/19 04:00 06/05/19 04:00 06/05/19 04:00 06/05/19 04:00 06/05/19 04:00 Laboratory Results - last 24 hr 06/04/19 14:05: Hgb 8.8 L, Hct 28.7 L I & O for Last 24 hours: Intake & Output 06/02/19 06/03/19 06/04/19 06/05/19 11:59 11:59 11:59 11:59 Intake Total 1251 / 1251 1200 / 1200 Output Total 600 / 600 600 / 600 Balance 651 / 651 600 / 600 Weight 206 lb 1 oz 207 lb 9 oz Narrative: Patient appears comfortable. She appears older than her stated age. Lungs have a faint expiratory wheeze. Heart has an irregular rate and rhythm. 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 Current visit: Yes Status: Acute Category: Medical Code(s): Z79.01 - prison (current) use of anticoagulants (3) Ascites of liver Current visit: Yes Status: Acute Category: Medical Code(s): R18.8 - Other ascites (4) Cirrhosis Current visit: No Status: Chronic Qualifiers: Hepatic cirrhosis type: unspecified hepatic cirrhosis Ascites presence: unspecified Qualified Code(s): K74.60 - Unspecified cirrhosis of liver Category: Medical Code(s): K74.60 - Unspecified cirrhosis of liver (5) Hypertension Current visit: No Status: Chronic Qualifiers: Hypertension type: essential hypertension Qualified Code(s): I10 - Essential (primary) hypertension Category: Medical Code(s): I10 - Essential (primary) hypertension (6) Renal insufficiency Current visit: No Status: Chronic Category: Medical Code(s): N28.9 - Disorder of kidney and ureter, unspecified (7) RLL pneumonia Current visit: Yes Status: Suspected Category: Medical Code(s): J18.1 - Lobar pneumonia, unspecified organism - Assessment and plan all Dx Assessment and Plan for all problems:: 1. Repeat CBC this morning to follow anemia 2. Consult radiology for ultrasound-guided paracentesis 3. Repeat BMP this morning to follow renal function.
[2019-06-05 10:21] LABS: Basophils % 0.7 % (0.1-2.0); Eosinophils # 0.1 K/mm3 (0.0-0.4); Eosinophils % 2.5 % (0.1-12.0); Hematocrit 28.8 % (37.0-47.0); Hemoglobin 8.7 g/dL (12.2-16.2); Lymphocytes # 0.7 K/mm3 (0.7-4.5); Lymphocytes % 32.8 % (10-50); Mean Corpuscular HGB Conc 30.3 g/dL (31.8-35.4); Mean Corpuscular Volume 88.5 fl (81-99); Mean Platelet Volume 7.2 fl (7.4-10.4); Monocytes # 0.3 K/mm3 (0.1-1.0); Monocytes % 13.1 % (1.7-9.3); Neutrophils # 1.1 K/mm3 (1.8-7.8); Neutrophils % 50.8 % (37.0-80.0); Platelet Count 184 K/mm3 (142-424); Red Blood Count 3.26 M/mm3 (4.20-5.40); Red Cell Distribution Width 17.1 % (11.5-17.5); White Blood Count 2.2 K/mm3 (4.8-10.8)
[2019-06-05 18:07] LABS: Anion Gap 12.1 mEq/L (5-15)
--- NOTE | 2019-06-06 07:09 | Progress Note ---
Internal Medicine - PN: Subj *Date: 06/06/19 *Time: 07:06 Interval history: She complains of intermittent episodes of abdomen and leg pain. This complaint is not new and she takes low doses of Tylenol for this pain. Attempt at paracentesis to remove ascites was performed yesterday and was unsuccessful. Patient has some pockets of fluid but presence of intestines interfered with ability to access the ascites. Patient was seen by physical therapy the day prior and short-term rehab has been suggested for strengthening. Exam Vital signs and Labs for Last 24 Hours: Temp Pulse Resp BP Pulse Ox 98.0 F 72 20 112/81 94 L 06/06/19 04:00 06/06/19 04:00 06/06/19 04:00 06/06/19 04:00 06/06/19 04:00 Laboratory Results - last 24 hr 06/05/19 08:41: WBC 2.2 L, RBC 3.26 L, Hgb 8.7 L, Hct 28.8 L, MCV 88.5, MCH 26.8 L, MCHC 30.3 L, RDW 17.1, Plt Count 184, MPV 7.2 L, Neut % (Auto) 50.8, Lymph % (Auto) 32.8, [place] % (Auto) 13.1 H, Eos % (Auto) 2.5, Baso % (Auto) 0.7, Neut # (Auto) 1.1 L, Lymph # (Auto) 0.7, [place] # (Auto) 0.3, Eos # (Auto) 0.1, Baso # (Auto) 0.0 06/05/19 08:41: Sodium 144, Potassium 4.1, Chloride 110 H, Carbon Dioxide 26, Anion Gap 12.1, BUN 40 H, Creatinine 2.82 H, Estimated Creat Clear 29, Estimated GFR 17 L*, Est GFR ( Amer) 20 L, Glucose 67 L, Calcium 8.0 L I & O for Last 24 hours: Intake & Output 06/03/19 06/04/19 06/05/19 06/06/19 11:59 11:59 11:59 11:59 Intake Total 1251 / 1251 1200 / 1200 630 / 630 Output Total 600 / 600 600 / 600 300 / 300 Balance 651 / 651 600 / 600 330 / 330 Weight 206 lb 1 oz 207 lb 9 oz 213 lb 1 oz Narrative: Patient is in no distress. Lungs remain clear. Heart rate is irregular. Abdomen is soft and protuberant. There is no tenderness. Extremities are warm to the touch. 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 Current visit: Yes Status: Acute Category: Medical Code(s): Z79.01 - engineering scientist (current) use of anticoagulants (3) Ascites of liver Current visit: Yes Status: Acute Category: Medical Code(s): R18.8 - Other ascites (4) Cirrhosis Current visit: No Status: Chronic Qualifiers: Hepatic cirrhosis type: unspecified hepatic cirrhosis Ascites presence: unspecified Qualified Code(s): K74.60 - Unspecified cirrhosis of liver Category: Medical Code(s): K74.60 - Unspecified cirrhosis of liver (5) Hypertension Current visit: No Status: Chronic Qualifiers: Hypertension type: essential hypertension Qualified Code(s): I10 - Essential (primary) hypertension Category: Medical Code(s): I10 - Essential (primary) hypertension (6) Renal insufficiency Current visit: No Status: Chronic Category: Medical Code(s): N28.9 - Disorder of kidney and ureter, unspecified (7) RLL pneumonia Current visit: Yes Status: Ruled-out Category: Medical Code(s): J18.1 - Lobar pneumonia, unspecified organism (8) Atrial fibrillation with RVR Current visit: No Status: Chronic Category: Medical Code(s): I48.91 - Unspecified atrial fibrillation - Assessment and plan all Dx Assessment and Plan for all problems:: 1. Care management consult today to investigate placement. Patient is ready for discharge. Patient has yet to decide whether she wants to go to short-term rehab and will discuss it with her this morning. 2. Patient will have to discontinue her Eliquis due to recurring GI bleeds. EGD and colonoscopy performed in January of this year revealed mild gastritis as well as hemorrhoids. 3. No other changes to patient's medical regimen.
--- NOTE | 2019-06-06 07:12 | Discharge Summary ---
General - General Admission date:: 06/03/19 Discharge date: 06/06/19 HPI HPI: 68-year-old female presented to the emergency department with shortness of breath and concern over passing black stools over the last 2 to 3 days including today. Patient had an similar episode approximately a month ago while she was visiting her daughter who lives in [place]. Patient was admitted to the hospital in [place] and transfused blood. She has had an EGD and colonoscopy in January of this year by Dr. Buchanan. Colonoscopy revealed hemorrhoids. EGD did not reveal any AVMs. There was evidence of chronic gastritis. There were no varices. Patient is followed with the liver clinic at the [facility] due to cirrhosis of unknown etiology and had a liver biopsy in April of this year. Patient does not know any specifics from the liver biopsy other than it confirmed cirrhosis. Hospital Course Hospital Course: Patient was admitted and transfused 2 units of packed red blood cells which she had an appropriate response to with hemoglobin reaching 8.8. Hemoglobin remained stable the remainder of admission. Eliquis was discontinued and after discussing with the patient will be discontinued permanently until gastrointestinal work-up is completed. Patient had an EGD and colonoscopy in January of this year. EGD revealed chronic gastritis. Colonoscopy revealed hemorrhoids. This is patient's second upper GI bleed in the last 2 months, the first occurring while she was visiting family in [place]. Patient was educated on the risks of being off Eliquis including stroke from her atrial fibrillation. Patient's abdomen was consistent with presence of ascites and attempt was made to do ultrasound-guided paracentesis but was unsuccessful. Physical therapy evaluated the patient and she was a candidate for short-term rehab. Therapist was also consulted for wound care as patient has a venous stasis ulcer on the right lower leg for which she has been seeing outpatient wound care here at our hospital. Dressing changes were performed. On June 06 patient was appropriate for discharge as she had reached maximum medical improvement. Home Health will be arranged for PT/OT and monitoring Objective Vital signs: Temp Pulse Resp BP Pulse Ox 98.0 F 72 20 112/81 94 L 06/06/19 04:00 06/06/19 04:00 06/06/19 04:00 06/06/19 04:00 06/06/19 04:00 Results Labs on day of discharge: Labs from last 24 hours 06/05/19 06/05/19 08:41 08:41 WBC 2.2 L RBC 3.26 L Hgb 8.7 L Hct 28.8 L MCV 88.5 MCH 26.8 L MCHC 30.3 L RDW 17.1 Plt Count 184 MPV 7.2 L Neut % (Auto) 50.8 Lymph % (Auto) 32.8 [place] % (Auto) 13.1 H Eos % (Auto) 2.5 Baso % (Auto) 0.7 Neut # (Auto) 1.1 L Lymph # (Auto) 0.7 [place] # (Auto) 0.3 Eos # (Auto) 0.1 Baso # (Auto) 0.0 Sodium 144 Potassium 4.1 Chloride 110 H Carbon Dioxide 26 Anion Gap 12.1 BUN 40 H Creatinine 2.82 H Estimated Creat Clear 29 Estimated GFR 17 L* Est GFR ( Amer) 20 L Glucose 67 L Calcium 8.0 L DS: Diagnosis - Discharge Diagnosis (1) Anemia due to blood loss, acute Status: Acute (2) 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 Status: Acute (3) Ascites of liver Status: Acute (4) Cirrhosis Status: Chronic (5) Hypertension Status: Chronic (6) Renal insufficiency Status: Chronic (7) RLL pneumonia Status: Ruled-out (8) Atrial fibrillation with RVR Status: Chronic Discharge Plan - Patient Discharge Instructions ACTIVITY: Continue current activity DIET: continue same diet Patient Instructions: Anemia, DI for Pneumonia -- Adult, DI for Ascites - Follow up Plan Follow up with: Rafi Albrecht MD [Staff Physician] - 06/11/19 Disposition: Home, Self-Snf Medications: Home Medications Medication Instructions Recorded Confirmed Type Apixaban [Eliquis 5mg tab] 5 mg PO BID 06/03/19 06/03/19 History Atorvastatin Calcium [Atorvastatin 20 mg PO DAILY 06/03/19 06/03/19 History 20mg Tab] Bumetanide 2 mg PO BID 06/03/19 06/04/19 History Carvedilol [Carvedilol 25mg Tab] 25 mg PO BID 06/03/19 06/04/19 History Collagenase Clostridium Hist. 1 each MC HS 06/03/19 06/03/19 History [Collagenase] Ferrous Sulfate [Iron] 325 mg PO DAILY 06/03/19 06/04/19 History Hydralazine HCl [Hydralazine HCl 25 mg PO TID 06/03/19 06/03/19 History 25mg Tablet] Levothyroxine Sodium 100 mg PO 0600 06/03/19 06/04/19 History [Levothyroxine 100mcg (0.1MG) Tab] Pantoprazole Sodium [Protonix 40mg 40 mg PO BID 06/03/19 06/03/19 History tablet] Folic Acid [Folic Acid 1mg tablet] 1 mg PO DAILY 06/04/19 06/04/19 History Insulin Glargine,Hum.rec.anlog 6 unit SQ DAILY 06/04/19 06/04/19 History [Lantus Insulin 100units/mL 10mL vial] Spironolactone [Spironolactone 25 mg PO DAILY 06/04/19 06/04/19 History 25mg Tablet] metOLazone [metOLazone 2.5mg 2.5 mg PO DAILY 06/04/19 06/04/19 History Tablet] Prescriptions/Medication Reconciliation: Continued Levothyroxine Sodium [Levothyroxine 100mcg (0.1MG) Tab] 100 mg PO 0600 Carvedilol [Carvedilol 25mg Tab] 25 mg PO BID Hydralazine HCl [Hydralazine HCl 25mg Tablet] 25 mg PO TID Ferrous Sulfate [Iron] 325 mg PO DAILY Collagenase Clostridium Hist. [Collagenase] 1 each MC HS Bumetanide 2 mg PO BID Atorvastatin Calcium [Atorvastatin 20mg Tab] 20 mg PO DAILY Insulin Glargine,Hum.rec.anlog [Lantus Insulin 100units/mL 10mL vial] 6 unit SQ DAILY metOLazone [metOLazone 2.5mg Tablet] 2.5 mg PO DAILY Spironolactone [Spironolactone 25mg Tablet] 25 mg PO DAILY Pantoprazole Sodium [Protonix 40mg tablet] 40 mg PO BID Folic Acid [Folic Acid 1mg tablet] 1 mg PO DAILY Discontinued Apixaban [Eliquis 5mg tab] 5 mg PO BID - Problem Reconciliation Problems Reviewed?: Yes
[2019-06-06 07:42] LABS: Basophils % 0.7 % (0.1-2.0); Eosinophils # 0.1 K/mm3 (0.0-0.4); Eosinophils % 2.6 % (0.1-12.0); Hematocrit 28.4 % (37.0-47.0); Hemoglobin 8.7 g/dL (12.2-16.2); Lymphocytes # 0.8 K/mm3 (0.7-4.5); Lymphocytes % 30.6 % (10-50); Mean Corpuscular HGB Conc 30.8 g/dL (31.8-35.4); Mean Corpuscular Volume 88.1 fl (81-99); Monocytes # 0.3 K/mm3 (0.1-1.0); Monocytes % 11.2 % (1.7-9.3); Neutrophils # 1.3 K/mm3 (1.8-7.8); Neutrophils % 54.9 % (37.0-80.0); Platelet Count 192 K/mm3 (142-424); Red Blood Count 3.22 M/mm3 (4.20-5.40); White Blood Count 2.5 K/mm3 (4.8-10.8)
[2019-06-06 08:05] LABS: Anion Gap 12.1 mEq/L (5-15); Calcium 7.7 mg/dL (8.5-10.1)
== END 2019-06-06 15:37 | disposition home health service (06) | DRG 812 ==
LOC: ER 12:10 → 2ND 17:41
PROVIDERS: ADMIT Family Medicine; ATTEND Family Medicine
CPT/HCPCS: 36415; 71010; 71020; 71045; 71046; 76700; 76705; 80048; 80053; 82272; 83690; 84484; 85014; 85018; 85025; 85610; 86850; 93005; 94761; 96365; 96367; 96375; 97116; 97162; 97530; 99285; G0328; J0456; J2405; P9016

== ENCOUNTER 2019-06-12 00:08 | Inpatient (IN) ==
[2019-06-12 00:48] LABS: ABG Base Excess 2.9 mmol/L (-2.4-2.3); ABG HCO3 28.4 mmhg (22.0-26.0); ABG Oxygen Saturation 98 % (90-100); ABG PH 7.36 mmol/L (7.35-7.45); ABG PO2 111.4 mmhg (80-100); Allen's Test Y; Oxygen 2 %
[2019-06-12 00:49] LABS: ABG PCO2 51.4 mmhg (35.0-45.0)
--- NOTE | 2019-06-12 01:05 | Emergency Department Note ---
ED Disposition Clinical Impression: Acute dyspnea, Stage III chronic kidney disease, Anasarca, Compression fracture, Pleural effusion associated with hepatic disorder Anemia Qualifiers: Anemia type: unspecified type Qualified Code(s): D64.9 - Anemia, unspecified CHF (congestive heart failure) Qualifiers: Heart failure type: combined systolic and diastolic Heart failure chronicity: acute on chronic Qualified Code(s): I50.43 - Acute on chronic combined systolic (congestive) and diastolic (congestive) heart failure Leukopenia Qualifiers: Leukopenia type: unspecified Qualified Code(s): D72.819 - Decreased white blood cell count, unspecified Cirrhosis of liver with ascites Qualifiers: Hepatic cirrhosis type: unspecified hepatic cirrhosis Qualified Code(s): K74.60 - Unspecified cirrhosis of liver; R18.8 - Other ascites Disposition: Admitted as Observation Condition on Discharge: Serious Referrals: Aldo Juarez MD [Primary Care Provider] - - Critical Care Critical Care Time: No Attestation: On 06/12/19, the high probability of a clinically significant, sudden or life threatening deterioration of the following system(s) required my full and direct attention, intervention and personal management. The time I documented below is in addition to time spent performing reported procedures but includes the following listed in this critical care notation. Medical Decision Making - Medical Records Medical records reviewed: Yes: I reviewed the patient's medical records. - Rudy Inquiry Pt receiving controlled substance: No Vital Signs: 06/12/19 00:12 06/12/19 01:20 Temperature 97.9 F Temperature Source Oral Pulse Rate 83 Pulse Rate [Right] 70 Respiratory Rate 24 Blood Pressure [Right Arm] 125/82 Blood Pressure Mean [Right Arm] 96 Blood Pressure Source [Right Arm] Automatic Cuff Blood Pressure Position [Right Arm] Supine 02 Sat by Pulse Oximetry 100 Oxygen Delivery Method Nasal Cannula - Lab Data Lab results reviewed: Yes: I reviewed the patient's lab results. Lab Results 06/12/19 00:46: Specimen Source R/r, O2 % 2, ABG pH 7.36, ABG pCO2 51.4 H, ABG pO2 111.4 H, ABG HCO3 28.4 H, ABG Total CO2 30.0 H, ABG O2 Saturation 98, ABG Base Excess 2.9 H, Micha Test Y 06/12/19 01:15: WBC 2.3 L, RBC 2.94 L, Hgb 7.9 L*, Hct 26.1 L, MCV 88.6, MCH 27.0, MCHC 30.5 L, RDW 18.1 H, Plt Count 237, MPV 7.0 L, Neut % (Auto) 64.3, Lymph % (Auto) 23.0, [place] % (Auto) 7.3, Eos % (Auto) 5.0, Baso % (Auto) 0.4, Neut # (Auto) 1.5 L, Lymph # (Auto) 0.5 L, [place] # (Auto) 0.2, Eos # (Auto) 0.1, Baso # (Auto) 0.0 06/12/19 01:15: Sodium 142, Potassium 3.8, Chloride 107, Carbon Dioxide 30, Anion Gap 8.8, BUN 45 H, Creatinine 2.66 H, Estimated Creat Clear 30, Estimated GFR 18 L*, Est GFR ( Amer) 22 L, Glucose 101, Calcium 8.0 L, Total Bilirubin 0.4, Direct Bilirubin 0.2, Indirect Bilirubin 0.2, AST 22, ALT 9 L, Alkaline Phosphatase 267 H, Troponin I < 0.02, Total Protein 5.7 L, Albumin 1.9 L 06/12/19 01:15: PT 11.5, INR 1.11 H 06/12/19 01:15: Ammonia 24 06/12/19 01:15: Lipase 43 L 06/12/19 02:12: Urine Color Yellow, Urine Appearance Clear, Urine pH 5.0, Ur Specific [place] 1.025, Urine Protein Negative, Urine Glucose (UA) Negative, Urine Ketones Negative, Urine Blood Negative, Urine Nitrate Negative, Urine Bilirubin Negative, Urine Urobilinogen 0.2, Ur Leukocyte Esterase Negative, Urine RBC 3-5, Urine WBC 3-5, Ur Squamous Epith Cells 3-5, Amorphous Sediment Trace, Urine Bacteria 1+, Hyaline Casts 5-10, Urine Mucus 1+ Result diagrams: 06/12/19 01:15 06/12/19 01:15 Orders (Tests/Meds): ED MEDICATIONS Discontinued Medications Generic Name Dose Route Start Last Admin Trade Name Freq PRN Reason Stop Dose Admin Albuterol/Ipratropium 3 ml 06/12/19 00:23 06/12/19 01:19 Duoneb 3ml Neb IH 06/12/19 00:24 3 ml ONCE ONE Administration Bumetanide 1 mg 06/12/19 04:16 06/12/19 04:19 Bumex 1mg/4ml Vial IV 06/12/19 04:17 1 mg ONCE ONE Administration Methylprednisolone Sodium Succinate 125 mg 06/12/19 00:23 06/12/19 01:49 Solu-Medrol 125mg/2ml Vial IV 06/12/19 00:24 125 mg ONCE ONE Administration ORDERS Category Date Time Status CT abdomen pelvis wo con Stat Cat Scan 06/12/19 02:[address] chest wo con Stat Cat Scan 06/12/19 02:26 Taken Arterial Blood Gas Stat RT 06/12/19 00:23 Ordered - Radiology Data #1 Image(s): Chest Image Reviewed: Yes I reviewed the patient's radiology image Preliminary Findings: Abnormal (cm ) - CT Data CT Scan: Abdomen, Pelvis, Chest Time Received: 04:[address] Reviewed: Yes: I have viewed the radiologist's interpretation Preliminary Findings: Abnormal (see reports) - ECG Data Tracing #1 Arrhythmias present: other (possible slow a fib ) - Physician Consults Physician Consulted: kristina Reason -: Admission Resp/SOB HPI - General Chief Complaint: Shortness of Breath/Dyspnea Stated Complaint: SOA Time Seen by Provider: 06/12/19 00:40 Mode of Arrival: Ambulatory Limitations: No Limitations Description of Symptoms (Recalled from ER Triage Doc. by RN): Pt states she has been SOA today, recently dc'd from this facilaty with same issue - History of Present Illness pt presents to ed with increased sob which became worse tonight - no fever or hemoptysis - pt with recent d/c for same issues - MD Complaint: shortness of breath Onset (ago): day(s) Context: recent illness Severity: similar to previous episodes Consistency/Duration: intermittent Known history of: congestive heart failure, other (liver disease ) Associated symptoms: denies other symptoms Treatment prior to arrival: oxygen - Related Data Home oxygen amount: 2 liters Home Medications Medication Instructions Recorded Confirmed Atorvastatin Calcium [Atorvastatin 20 mg PO DAILY 06/03/19 06/12/19 20mg Tab] Bumetanide 2 mg PO BID 06/03/19 06/12/19 Carvedilol [Carvedilol 25mg Tab] 25 mg PO BID 06/03/19 06/12/19 Collagenase Clostridium Hist. 1 each MC HS 06/03/19 06/12/19 [Collagenase] Ferrous Sulfate [Iron] 325 mg PO DAILY 06/03/19 06/12/19 Hydralazine HCl [Hydralazine HCl 25 mg PO TID 06/03/19 06/12/19 25mg Tablet] Levothyroxine Sodium 100 mg PO 0600 06/03/19 06/12/19 [Levothyroxine 100mcg (0.1MG) Tab] Pantoprazole Sodium [Protonix 40mg 40 mg PO BID 06/03/19 06/12/19 tablet] Folic Acid [Folic Acid 1mg tablet] 1 mg PO DAILY 06/04/19 06/12/19 Insulin Glargine,Hum.rec.anlog 6 unit SQ DAILY 06/04/19 06/12/19 [Lantus Insulin 100units/mL 10mL vial] Spironolactone [Spironolactone 25 mg PO DAILY 06/04/19 06/12/19 25mg Tablet] metOLazone [metOLazone 2.5mg 2.5 mg PO DAILY 06/04/19 06/12/19 Tablet] Allergies Allergy/AdvReac Type Severity Reaction Status Date / Time No Known Allergies Allergy Verified 06/17/18 22:06 [facility] History - Hepatitis A Screen Drug use history?: No High risk sexual behaviors?: No History of sexually transmitted infection?: No Currently employed?: No Childcare worker?: No Do you have indoor plumbing?: Yes Do you have electricity?: Yes Attestation statement:: This patient has been screened for Hepatitis A risk factors. I have reviewed the patient's past medical history: Yes Medical History: Reports:: Arrhythmia, Atrial Fibrillation, Congestive Heart Failure, Diabetes Mellitus Type 2, Hyperlipidemia, Hypertension, Internal Pacemaker Denies:: Cancer, Diabetes Mellitus Type 1, MRSA Other Medical History: Reports: Anemia, Liver Disease Comment: Cirrhosis of the liver, pulmonary sarcoidosis Laterality Cases: Right: Arthroscopy Shoulder Other Surgeries: Yes: Cholecystectomy, Pacemaker, Tubal Ligation, Other Amputation: No Fractures: No Comment: Cholecystectomy - Social History Smoking Status: Never smoker Alcohol Intake: never Occupational Status: disabled Housing: house Household Members: spouse Family Hx:: Diabetes, Heart Attack, Hyperlipidemia, Hypertension ROS Obtained: Yes All systems reviewed & no additional complaints - Constitutional Constitutional: Denies fever(s) - Eyes Eyes: Denies change in vision - ENT Ears, Nose, Mouth, and Throat: Denies pain with swallowing - Cardiovascular Cardiovascular: Reports as per HPI, Denies chest pain, Reports dyspnea - Respiratory Respiratory: Yes as per HPI, Yes cough, Yes non-productive cough, No coughing up blood - Gastrointestinal Gastrointestingal: Reports: as per HPI, bloating. Denies: abdominal pain - Genitourinary Female Genitourinary: Denies hematuria - Musculoskeletal Musculoskeletal: Denies joint pain - Integumentary/Breasts Skin/Breast: Denies rash - Neurologic Neurologic: Denies seizure-like activity Physical Exam - General General appearance: alert, other (chronic ill) - Head Head exam: normocephalic - Eye Eye exam: Present: PERRL, EOMI. Absent: scleral icterus - ENT ENT exam: Present: mucous membranes dry - Neck Neck exam: Present: trachea midline - Respiratory Respiratory exam: Present: other (dec bs bilat ). Absent: respiratory distress - Cardiovascular Cardiovascular exam: Present: regular rate, systolic murmur, rubs, +S4 - Abdominal Exam Abdominal exam: Present: soft, distention, diminished bowel sounds, hypoactive bowel sounds - Extremities Exam Extremities exam: Present: pedal edema, other (chronic changes ). Absent: calf tenderness - Neurological Exam Neurological exam: Present: alert. Absent: motor sensory deficit - Skin Skin exam: Absent: rash
[2019-06-12 01:38] LABS: Basophils % 0.4 % (0.1-2.0); Eosinophils # 0.1 K/mm3 (0.0-0.4); Hematocrit 26.1 % (37.0-47.0); Lymphocytes # 0.5 K/mm3 (0.7-4.5); Mean Corpuscular HGB Conc 30.5 g/dL (31.8-35.4); Mean Corpuscular Volume 88.6 fl (81-99); Monocytes # 0.2 K/mm3 (0.1-1.0); Monocytes % 7.3 % (1.7-9.3); Neutrophils # 1.5 K/mm3 (1.8-7.8); Neutrophils % 64.3 % (37.0-80.0); Platelet Count 237 K/mm3 (142-424); Red Blood Count 2.94 M/mm3 (4.20-5.40); Red Cell Distribution Width 18.1 % (11.5-17.5); White Blood Count 2.3 K/mm3 (4.8-10.8)
[2019-06-12 01:42] LABS: Hemoglobin 7.9 g/dL (12.2-16.2)
[2019-06-12 01:43] LABS: INR 1.11 (0.9-1.1); Prothrombin Time 11.5 seconds (9.4-11.8)
[2019-06-12 01:54] LABS: Alanine Aminotransferase 9 U/L (12-78); Albumin Level 1.9 gm/dL (3.4-5.0); Alkaline Phosphatase 267 U/L (46-116); Anion Gap 8.8 mEq/L (5-15); Aspartate Amino Transferase 22 U/L (15-37); Bilirubin,Direct 0.2 mg/dL (0.0-0.2); Bilirubin,Indirect 0.2 mg/dL (0.0-0.9); Bilirubin,Total 0.4 mg/dL (0.2-1.0); Blood Urea Nitrogen 45 mg/dL (7-18); Carbon Dioxide 30 mmol/L (21.0-32.0); Chloride 107 mmol/L (98-107); Glucose 101 mg/dL (74-106); Sodium 142 mmol/L (136-145); Total Protein,Serum 5.7 gm/dL (6.4-8.2)
[2019-06-12 02:20] LABS: Microscopic, Urine URINE MICROSCOPIC (MICROSCOPIC)
[2019-06-12 02:27] LABS: Appearance,Urine CLEAR (Clear); Bilirubin,Urine Negative (Negative); Blood, Urine Negative (Negative); Color,Urine YELLOW (Yellow); Glucose,Urine (UA) Negative (Negative); Ketones,Urine Negative (Negative); Leukocyte Esterase,Urine Negative (Negative); Protein,Urine Negative (Negative); Specific Gravity, Urine 1.025 (1.005-1.030); Urobilinogen,Urine 0.2 EU/dl (0.2)
[2019-06-12 02:37] LABS: Amorphous Sediment,Urine Trace /lpf; Bacteria,Urine 1+ /lpf; Mucus,Urine 1+ /lpf
--- NOTE | 2019-06-12 07:14 | Pharmacy Consult Notes ---
[facility] Pharmacy VTE Monitoring - Patient Demographics Admission date: 06/12/19 Report Date: 06/12/19 Time: 07:14 Allergies/Adverse Reactions: Patient Allergies No Known Allergies Allergy (Verified 06/17/18 22:06) Height: 1.68 m Weight: 95.254 kg Patient Problems: Current Active Problems Anemia (Acute) Acute dyspnea (Acute) Anasarca (Acute) Compression fracture (Acute) Pleural effusion associated with hepatic disorder (Acute) Leukopenia (Acute) CHF (congestive heart failure) (Chronic) Stage III chronic kidney disease (Acute) Cirrhosis of liver with ascites (Acute) - VTE Risk Labs: VTE Related Lab Results Hgb 7.9 g/dL (12.2-16.2) L* 06/12/19 01:15 Hct 26.1 % (37.0-47.0) L 06/12/19 01:15 Plt Count 237 K/mm3 (142-424) 06/12/19 01:15 PT 11.5 seconds (9.4-11.8) 06/12/19 01:15 INR 1.11 (0.9-1.1) H 06/12/19 01:15 BUN 45 mg/dL (7-18) H 06/12/19 01:15 Creatinine 2.66 mg/dL (0.55-1.02) H 06/12/19 01:15 Estimated Creat Clear 30 mL/min (50-200) 06/12/19 01:15 Was VTE Risk Assessment Performed: Yes VTE Score: 6 VTE Risk Level: Moderate Risk Clinical Trial Participant: No
--- NOTE | 2019-06-12 07:19 | History & Physical Report ---
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 Patient had been seen in the office yesterday morning and reported some mild dyspnea with exertion which considering her comorbidities was felt to be baseline. Patient reports she went home and later in the evening shortness of breath worsened. She cannot lay down without feeling like she was smothering. She ultimately came to the emergency department. She was subsequently admitted for her shortness of breath. [facility] History I have reviewed the patient's past medical history: Yes Medical History: Reports:: Arrhythmia, Atrial Fibrillation, Congestive Heart Failure, Diabetes Mellitus Type 2 (In remission), Gastrointestinal Bleed, Heart Murmur, Home Oxygen, Hyperlipidemia, Hypertension, Internal Pacemaker, Lung Disease ([place] sarcoidosis), Renal Disease (Chronic kidney disease stage IV) Denies:: Cancer, Diabetes Mellitus Type 1, MRSA *Have you ever received a pneumonia vaccine?: Yes *Have you received a flu vaccine this season?: No Other Medical History: Reports: Anemia (From chronic kidney disease and GI bleed), Hypothyroidism, Liver Disease (Cirrhosis secondary to sarcoidosis), Thyroid Disease (Hypothyroidism) Laterality Cases: Right: Arthroscopy Shoulder Other Surgeries: Yes: Cardiac Catheterization, Cholecystectomy, Colonoscopy, EGD, Pacemaker, Tubal Ligation, Other Amputation: No Fractures: No - *Social History Educational Level: Completed High School Smoking Status: Never smoker Alcohol Intake: never *Occupational Status:: disabled Housing: house Household Members: spouse *Travel in the last 8 weeks: None - Psychiatric History Expresses thoughts of harming self/others: None Suicide Plan Description: No Plan Family Hx:: Diabetes, Heart Attack, Hyperlipidemia, Hypertension Review of Systems - Constitutional Reports anorexia, Denies body ache(s), Denies chills, Denies fever(s) - Eyes Denies blurry vision - ENT Denies abnormal hearing - *Cardiovascular Reports shortness of breath, Denies chest pain, Denies chest pain at rest, Denies chest pain with activity - *Respiratory Reports shortness of breath, Denies change in phlegm color, Denies chest congestion, Denies cough - *Gastrointestinal Reports bloating, Reports loose stools, Denies cramping, Denies loose stools - *Musculoskeletal Reports abnormal walking, Reports joint pain, Reports decreased muscle mass, Reports muscle weakness - *Neurologic Reports abnormal walking, Denies seizure-like activity Meds Home Medications Medication Instructions Recorded Confirmed Type RX: Atorvastatin Calcium 20 mg PO DAILY 06/03/19 06/12/19 History [Atorvastatin 20mg Tab] RX: Bumetanide 2 mg PO BID 06/03/19 06/12/19 History RX: Carvedilol [Carvedilol 25mg 25 mg PO BID 06/03/19 06/12/19 History Tab] RX: Collagenase Clostridium Hist. 1 each MC HS 06/03/19 06/12/19 History [Collagenase] RX: Ferrous Sulfate [Iron] 325 mg PO DAILY 06/03/19 06/12/19 History RX: Hydralazine HCl [Hydralazine 25 mg PO TID 06/03/19 06/12/19 History HCl 25mg Tablet] RX: Levothyroxine Sodium 100 mcg PO 0600 06/03/19 06/12/19 History [Levothyroxine 100mcg (0.1MG) Tab] RX: Pantoprazole Sodium [Protonix 40 mg PO BID 06/03/19 06/12/19 History 40mg tablet] RX: Folic Acid [Folic Acid 1mg 1 mg PO DAILY 06/04/19 06/12/19 History tablet] RX: Insulin Glargine,Hum.rec.anlog 6 unit SQ DAILY 06/04/19 06/12/19 History [Lantus Insulin 100units/mL 10mL vial] RX: Spironolactone [Spironolactone 25 mg PO DAILY 06/04/19 06/12/19 History 25mg Tablet] RX: metOLazone [metOLazone 2.5mg 2.5 mg PO DAILY 06/04/19 06/12/19 History Tablet] Allergies Allergy/AdvReac Type Severity Reaction Status Date / Time No Known Allergies Allergy Verified 06/17/18 22:06 Exam Vital signs and Labs for Last 24 Hours: Temp Pulse Resp BP Pulse Ox 97.9 F 73 20 127/76 100 06/12/19 05:45 06/12/19 05:45 06/12/19 06:00 06/12/19 05:45 06/12/19 06:00 Laboratory Results - last 24 hr 06/12/19 00:46: Specimen Source R/r, O2 % 2, ABG pH 7.36, ABG pCO2 51.4 H, ABG pO2 111.4 H, ABG HCO3 28.4 H, ABG Total CO2 30.0 H, ABG O2 Saturation 98, ABG Base Excess 2.9 H, Micha Test Y 06/12/19 01:15: WBC 2.3 L, RBC 2.94 L, Hgb 7.9 L*, Hct 26.1 L, MCV 88.6, MCH 27.0, MCHC 30.5 L, RDW 18.1 H, Plt Count 237, MPV 7.0 L, Neut % (Auto) 64.3, Lymph % (Auto) 23.0, [place] % (Auto) 7.3, Eos % (Auto) 5.0, Baso % (Auto) 0.4, Neut # (Auto) 1.5 L, Lymph # (Auto) 0.5 L, [place] # (Auto) 0.2, Eos # (Auto) 0.1, Baso # (Auto) 0.0 06/12/19 01:15: Sodium 142, Potassium 3.8, Chloride 107, Carbon Dioxide 30, Anion Gap 8.8, BUN 45 H, Creatinine 2.66 H, Estimated Creat Clear 30, Estimated GFR 18 L*, Est GFR ( Amer) 22 L, Glucose 101, Calcium 8.0 L, Total Bilirubin 0.4, Direct Bilirubin 0.2, Indirect Bilirubin 0.2, AST 22, ALT 9 L, Alkaline Phosphatase 267 H, Troponin I < 0.02, Total Protein 5.7 L, Albumin 1.9 L 06/12/19 01:15: PT 11.5, INR 1.11 H 06/12/19 01:15: Ammonia 24 06/12/19 01:15: Lipase 43 L 06/12/19 02:12: Urine Color Yellow, Urine Appearance Clear, Urine pH 5.0, Ur Specific [place] 1.025, Urine Protein Negative, Urine Glucose (UA) Negative, Urine Ketones Negative, Urine Blood Negative, Urine Nitrate Negative, Urine Steven irubin Negative, Urine Urobilinogen 0.2, Ur Leukocyte Esterase Negative, Urine RBC 3-5, Urine WBC 3-5, Ur Squamous Epith Cells 3-5, Amorphous Sediment Trace, Urine Bacteria 1+, Hyaline Casts 5-10, Urine Mucus 1+ 06/12/19 05:43: POC Glucose 123 H I & O for Last 24 hours: Intake & Output 06/09/19 06/10/19 06/11/19 06/12/19 11:59 11:59 11:59 11:59 Weight 210 lb Narrative: -[place] female who appears older than her stated age. Face is thin. Oropharynx is moist. Neck has no lymphadenopathy or carotid bruits. Lungs are clear anteriorly and diminished at the bases. There are no wheezes or rhonchi. Heart rate is regular. Abdomen is soft and distended with apparent ascites. Bowel sounds are present. Extremities are significant for 1+ edema of the lower legs. Patient can move all extremities. Neurologically she is oriented to person, place. Assessment and Plan (1) Acute dyspnea Current visit: Yes Status: Acute Category: Medical Code(s): R06.00 - Dy spnea, unspecified I believe dyspnea is secondary to her anemia rather than pleural effusions which when comparing chest x-rays over the last 2 admissions did not really show any significant accumulation. Patient be transfused 2 units of packed red blood cells with intravenous Bumex given after the first unit of blood. Monitor renal function closely. (2) Anemia Current visit: Yes Status: Chronic Qualifiers: Anemia type: due to chronic kidney disease Chronic kidney disease stage: stage 4 (severe) Qualified Code(s): N18.4 - Chronic kidney disease, stage 4 (severe); D63.1 - Anemia in chronic kidney disease Category: Medical Code(s): D64.9 - Anemia, unspecified (3) Cirrhosis of liver with ascites Current visit: Yes Status: Chronic Qualifiers: Hepatic cirrhosis type: unspecified hepatic cirrhosis Qualified Code(s): K74.60 - Unspecified cirrhosis of liver; R18.8 - Other ascites Category: Medical Code(s): K74.60 - Unspecified cirrhosis of liver; R18.8 - Other ascites (4) Anemia due to blood loss, acute Current visit: No Status: Chronic Category: Medical Code(s): D62 - Acute posthemorrhagic anemia Patient with recent GI bleed which may have contributed somewhat to her anemia. (5) Anemia of chronic disease Current visit: No Status: Acute Category: Medical Code(s): D63.8 - Anemia in other chronic diseases classified elsewhere
--- NOTE | 2019-06-12 13:47 | Electrocardiograph Report ---
APPROVED REPORT Exam: Resting ECG HR:70 bpm ECG Measurements Heart Rate 70 AXES TX 192 P -1 QRSd 84 QRS -25 QT 438 T40 QTc 473 <Conclusion> Sinus rhythm with fusion complexes poor r wave progression Abnormal ECG Electronically signed by : Rafi Nesbitt, 06/12/2019 13:46:52
[2019-06-12 17:20] LABS: Hematocrit 31.4 % (37.0-47.0)
[2019-06-12 17:35] LABS: Hemoglobin 9.7 g/dL (12.2-16.2)
[2019-06-13 06:35] LABS: Basophils % 0.2 % (0.1-2.0); Hematocrit 30.9 % (37.0-47.0); Hemoglobin 9.4 g/dL (12.2-16.2); Lymphocytes # 0.7 K/mm3 (0.7-4.5); Lymphocytes % 21.9 % (10-50); Mean Corpuscular HGB Conc 30.3 g/dL (31.8-35.4); Mean Corpuscular Volume 90.3 fl (81-99); Mean Platelet Volume 7.3 fl (7.4-10.4); Monocytes # 0.3 K/mm3 (0.1-1.0); Neutrophils # 2.1 K/mm3 (1.8-7.8); Platelet Count 233 K/mm3 (142-424); Red Blood Count 3.42 M/mm3 (4.20-5.40); Red Cell Distribution Width 17.3 % (11.5-17.5); White Blood Count 3.2 K/mm3 (4.8-10.8)
[2019-06-13 06:46] LABS: Anion Gap 8.3 mEq/L (5-15); Calcium 8.2 mg/dL (8.5-10.1)
--- NOTE | 2019-06-13 07:26 | Progress Note ---
Internal Medicine - PN: Subj *Date: 06/13/19 *Time: 07:23 Interval history: Patient has no new complaints this morning. She felt like she was wheezing earlier in the morning. O2 sats have remained in the mid to high 90s. Exam Vital signs and Labs for Last 24 Hours: Temp Pulse Resp BP Pulse Ox 98.7 F 79 19 118/78 93 L 06/13/19 04:00 06/13/19 04:00 06/13/19 04:00 06/13/19 04:00 06/13/19 04:00 Laboratory Results - last 24 hr 06/12/19 07:32: Blood Type B Positive, Antibody Screen Negative, Crossmatch (AHG) See Detail 06/12/19 11:22: POC Glucose 180 H 06/12/19 17:03: POC Glucose 177 H 06/12/19 17:06: Hgb 9.7 L D, Hct 31.4 L 06/12/19 20:43: POC Glucose 176 H 06/13/19 05:32: Sodium 141, Potassium 4.3, Chloride 108 H, Carbon Dioxide 29, Anion Gap 8.3, BUN 48 H, Creatinine 2.70 H, Estimated Creat Clear 32, Estimated GFR 18 L*, Est GFR ( Amer) 21 L, Glucose 125 H, Calcium 8.2 L 06/13/19 05:50: WBC 3.2 L D, RBC 3.42 L, Hgb 9.4 L, Hct 30.9 L, MCV 90.3, MCH 27.4, MCHC 30.3 L, RDW 17.3, Plt Count 233, MPV 7.3 L, Neut % (Auto) 68.0, Lymph % (Auto) 21.9, [place] % (Auto) 10.0 H, Eos % (Auto) 0.0 L, Baso % (Auto) 0.2, Neut # (Auto) 2.1, Lymph # (Auto) 0.7, [place] # (Auto) 0.3, Eos # (Auto) 0.0, Baso # (Auto) 0.0 06/13/19 06:17: POC Glucose 126 H I & O for Last 24 hours: Intake & Output 06/10/19 06/11/19 06/12/19 06/13/19 11:59 11:59 11:59 11:59 Intake Total 0 / 0 948 / 948 Output Total 650 / 650 Balance 0 / 0 298 / 298 Weight 210 lb 216 lb 7 oz Narrative: Patient looks comfortable. She is wearing nasal cannula. Lungs overall are clear with some diminished sounds at the bases. Heart has an irregular rate and rhythm. Abdomen is distended from ascites Assessment and Plan (1) Acute dyspnea Current visit: Yes Status: Acute Category: Medical Code(s): R06.00 - Dyspnea, unspecified (2) Anemia Current visit: Yes Status: Chronic Qualifiers: Anemia type: due to chronic kidney disease Chronic kidney disease stage: stage 4 (severe) Qualified Code(s): N18.4 - Chronic kidney disease, stage 4 (severe); D63.1 - Anemia in chronic kidney disease Category: Medical Code(s): D64.9 - Anemia, unspecified (3) Cirrhosis of liver with ascites Current visit: Yes Status: Chronic Qualifiers: Hepatic cirrhosis type: unspecified hepatic cirrhosis Qualified Code(s): K74.60 - Unspecified cirrhosis of liver; R18.8 - Other ascites Category: Medical Code(s): K74.60 - Unspecified cirrhosis of liver; R18.8 - Other ascites (4) Anemia due to blood loss, acute Current visit: No Status: Chronic Category: Medical Code(s): D62 - Acute posthemorrhagic anemia (5) Anemia of chronic disease Current visit: No Status: Acute Category: Medical Code(s): D63.8 - Anemia in other chronic diseases classified elsewhere (6) Kidney disease, chronic, stage IV (GFR 15-29 ml/min) Current visit: Yes Status: Acute Category: Medical Code(s): N18.4 - Chronic kidney disease, stage 4 (severe) - Assessment and plan all Dx Assessment and Plan for all problems:: 1. Repeat CBC this afternoon 2. Increase spironolactone to 50 mg daily, start Bumex 1 mg p.o. daily 3. Discussed various issues with the patient including hospice. Patient would prefer to continue with outpatient physical therapy to try to get back on her feet. She would also prefer receiving wound care through [facility] as opposed to home health 4. CAITIE Fernando
[2019-06-13 16:28] LABS: Hematocrit 29.9 % (37.0-47.0); Hemoglobin 9.3 g/dL (12.2-16.2)
[2019-06-14 06:07] LABS: Basophils % 0.7 % (0.1-2.0); Eosinophils % 1.4 % (0.1-12.0); Hemoglobin 9.8 g/dL (12.2-16.2); Lymphocytes # 0.6 K/mm3 (0.7-4.5); Lymphocytes % 19.3 % (10-50); Mean Corpuscular HGB Conc 29.8 g/dL (31.8-35.4); Mean Corpuscular Volume 93.2 fl (81-99); Mean Platelet Volume 7.7 fl (7.4-10.4); Monocytes # 0.2 K/mm3 (0.1-1.0); Neutrophils % 70.5 % (37.0-80.0); Platelet Count 204 K/mm3 (142-424); Red Blood Count 3.55 M/mm3 (4.20-5.40); Red Cell Distribution Width 17.1 % (11.5-17.5); White Blood Count 2.9 K/mm3 (4.8-10.8)
[2019-06-14 06:13] LABS: INR 1.12 (0.9-1.1); Prothrombin Time 11.6 seconds (9.4-11.8)
[2019-06-14 06:50] LABS: Anion Gap 8.5 mEq/L (5-15); Bilirubin,Direct 0.2 mg/dL (0.0-0.2); Bilirubin,Indirect 0.2 mg/dL (0.0-0.9); Bilirubin,Total 0.4 mg/dL (0.2-1.0); Calcium 7.9 mg/dL (8.5-10.1); Total Protein,Serum 5.7 gm/dL (6.4-8.2)
--- NOTE | 2019-06-14 07:23 | Progress Note ---
Internal Medicine - PN: Subj *Date: 06/14/19 *Time: 07:22 Interval history: Patient reports feeling better this morning. She has reported less dyspnea to nursing staff. She requires assistance for transfers. Patient did develop some abdominal pain yesterday evening after eating. That seems to have improved as well. Exam Vital signs and Labs for Last 24 Hours: Temp Pulse Resp BP Pulse Ox 97.7 F 73 16 115/76 100 06/14/19 04:37 06/14/19 04:37 06/14/19 04:37 06/14/19 04:37 06/14/19 04:37 Laboratory Results - last 24 hr 06/13/19 11:08: POC Glucose 147 H 06/13/19 16:07: POC Glucose 121 H 06/13/19 16:15: Hgb 9.3 L, Hct 29.9 L 06/13/19 20:09: POC Glucose 137 H 06/14/19 05:45: WBC 2.9 L, RBC 3.55 L, Hgb 9.8 L, Hct 33.0 L, MCV 93.2, MCH 27.8, MCHC 29.8 L, RDW 17.1, Plt Count 204, MPV 7.7, Neut % (Auto) 70.5, Lymph % (Auto) 19.3, [place] % (Auto) 8.0, Eos % (Auto) 1.4, Baso % (Auto) 0.7, Neut # (Auto) 2.0, Lymph # (Auto) 0.6 L, [place] # (Auto) 0.2, Eos # (Auto) 0.0, Baso # (Auto) 0.0 06/14/19 05:45: PT 11.6, INR 1.12 H 06/14/19 05:45: Sodium 142, Potassium 4.5, Chloride 108 H, Carbon Dioxide 30, Anion Gap 8.5, BUN 51 H, Creatinine 2.83 H, Estimated Creat Clear 30, Estimated GFR 17 L*, Est GFR ( Amer) 20 L, Glucose 91, Calcium 7.9 L, Total Bilirubin 0.4, Direct Bilirubin 0.2, Indirect Bilirubin 0.2, AST 20, ALT 9 L, Alkaline Phosphatase 264 H, Total Protein 5.7 L, Albumin 2.0 L 06/14/19 06:19: POC Glucose 93 I & O for Last 24 hours: Intake & Output 06/11/19 06/12/19 06/13/19 06/14/19 11:59 11:59 11:59 11:59 Intake Total 0 / 0 1188 / 1188 340 / 340 Output Total 1000 / 1000 400 / 400 Balance 0 / 0 188 / 188 -60 / -60 Weight 210 lb 216 lb 7 oz 216 lb 6.986 oz Narrative: Patient is in no distress. Lungs are overall clear. Heart has a irregular rate and rhythm. Abdomen is soft and obese with significant ascites. Ascites does seem to have increased during hospitalization. Assessment and Plan (1) Acute dyspnea Current visit: Yes Status: Acute Category: Medical Code(s): R06.00 - Dyspnea, unspecified (2) Anemia Current visit: Yes Status: Chronic Qualifiers: Anemia type: due to chronic kidney disease Chronic kidney disease stage: stage 4 (severe) Qualified Code(s): N18.4 - Chronic kidney disease, stage 4 (severe); D63.1 - Anemia in chronic kidney disease Category: Medical Code(s): D64.9 - Anemia, unspecified (3) Cirrhosis of liver with ascites Current visit: Yes Status: Chronic Qualifiers: Hepatic cirrhosis type: unspecified hepatic cirrhosis Qualified Code(s): K74.60 - Unspecified cirrhosis of liver; R18.8 - Other ascites Category: Medical Code(s): K74.60 - Unspecified cirrhosis of liver; R18.8 - Other ascites (4) Anemia due to blood loss, acute Current visit: No Status: Chronic Category: Medical Code(s): D62 - Acute posthemorrhagic anemia (5) Anemia of chronic disease Current visit: No Status: Acute Category: Medical Code(s): D63.8 - Anemia in other chronic diseases classified elsewhere (6) Kidney disease, chronic, stage IV (GFR 15-29 ml/min) Current visit: Yes Status: Acute Category: Medical Code(s): N18.4 - Chronic kidney disease, stage 4 (severe) - Assessment and plan all Dx Assessment and Plan for all problems:: Anemia has improved and has helped decrease some of the patient's dyspnea. I do believe some of her shortness of breath is also to deconditioning and carrying around excessive weight contributed to by the ascites. We will make another attempt at paracentesis today via ultrasound guidance as physically it would seem the patient's ascites has increased. Patient will be discharged home later today
--- NOTE | 2019-06-14 07:24 | Discharge Summary ---
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 Patient had been seen in the office yesterday morning and reported some mild dyspnea with exertion which considering her comorbidities was felt to be baseline. Patient reports she went home and later in the evening shortness of breath worsened. She cannot lay down without feeling like she was smothering. She ultimately came to the emergency department. She was subsequently admitted for her shortness of breath. Hospital Course Hospital Course: Patient was admitted and transfused 2 units of packed red blood cells which helped to improve patient's shortness of breath. From that point on patient had serial H&H's to monitor for stabilization of hemoglobin and hematocrit. On the day of discharge hemoglobin was 9.8. Physical therapy was consulted for wound evaluation of patient's right venous stasis ulcer which they had seen as an outpatient. She will continue to see [facility] wound care as an outpatient. Patient has known cirrhosis of the liver secondary to sarcoidosis and has had ascites develop over the last 2 months since a paracentesis during the hospitalization in [place]. During hospitalization here at [facility] 1 week ago attempt was made at paracentesis but was unsuccessful. Patient's ascites seem to have increased during hospitalization and another attempt was made at paracentesis. Paracentesis produced 6 L of ascitic fluid. As this is a recurring issue no testing was performed on the fluid. After the procedure patient was given 50 g of albumin to prevent hypotension. Patient was discharged home later in the day. Patient will follow-up in my office in 1 week Objective Vital signs: Temp Pulse Resp BP Pulse Ox 97.7 F 73 16 115/76 100 06/14/19 04:37 06/14/19 04:37 06/14/19 04:37 06/14/19 04:37 06/14/19 04:37 Results Labs on day of discharge: Labs from last 24 hours 06/14/19 06/14/19 06/14/19 06:19 05:45 05:45 WBC RBC Hgb Hct MCV MCH MCHC RDW Plt Count MPV Neut % (Auto) Lymph % (Auto) [place] % (Auto) Eos % (Auto) Baso % (Auto) Neut # (Auto) Lymph # (Auto) [place] # (Auto) Eos # (Auto) Baso # (Auto) PT 11.6 INR 1.12 H Sodium 142 Potassium 4.5 Chloride 108 H Carbon Dioxide 30 Anion Gap 8.5 BUN 51 H Creatinine 2.83 H Estimated Creat Clear 30 Estimated GFR 17 L* Est GFR ( Amer) 20 L Glucose 91 POC Glucose 93 Calcium 7.9 L Total Bilirubin 0.4 Direct Bilirubin 0.2 Indirect Bilirubin 0.2 AST 20 ALT 9 L Alkaline Phosphatase 264 H Total Protein 5.7 L Albumin 2.0 L 06/14/19 06/13/19 06/13/19 05:45 20:09 16:15 WBC 2.9 L RBC 3.55 L Hgb 9.8 L 9.3 L Hct 33.0 L 29.9 L MCV 93.2 MCH 27.8 MCHC 29.8 L RDW 17.1 Plt Count 204 MPV 7.7 Neut % (Auto) 70.5 Lymph % (Auto) 19.3 [place] % (Auto) 8.0 Eos % (Auto) 1.4 Baso % (Auto) 0.7 Neut # (Auto) 2.0 Lymph # (Auto) 0.6 L [place] # (Auto) 0.2 Eos # (Auto) 0.0 Baso # (Auto) 0.0 PT INR Sodium Potassium Chloride Carbon Dioxide Anion Gap BUN Creatinine Estimated Creat Clear Estimated GFR Est GFR ( Amer) Glucose POC Glucose 137 H Calcium Total Bilirubin Direct Bilirubin Indirect Bilirubin AST ALT Alkaline Phosphatase Total Protein Albumin 06/13/19 06/13/19 16:07 11:08 WBC RBC Hgb Hct MCV MCH MCHC RDW Plt Count MPV Neut % (Auto) Lymph % (Auto) [place] % (Auto) Eos % (Auto) Baso % (Auto) Neut # (Auto) Lymph # (Auto) [place] # (Auto) Eos # (Auto) Baso # (Auto) PT INR Sodium Potassium Chloride Carbon Dioxide Anion Gap BUN Creatinine Estimated Creat Clear Estimated GFR Est GFR ( Amer) Glucose POC Glucose 121 H 147 H Calcium Total Bilirubin Direct Bilirubin Indirect Bilirubin AST ALT Alkaline Phosphatase Total Protein Albumin DS: Diagnosis - Discharge Diagnosis (1) Acute dyspnea Status: Acute (2) Anemia Status: Chronic (3) Cirrhosis of liver with ascites Status: Chronic (4) Anemia due to blood loss, acute Status: Chronic (5) Anemia of chronic disease Status: Acute (6) Kidney disease, chronic, stage IV (GFR 15-29 ml/min) Status: Acute Discharge Plan - Patient Discharge Instructions ACTIVITY: Continue current activity DIET: continue same diet Patient Instructions: DI for Heart Failure, Chronic Renal Failure, DI for Cirrhosis, DI for Iron Deficiency Anemia-Adult, DI for Shortness of Breath - Follow up Plan Follow up with: Rafi Albrecht MD [Staff Physician] - 1 week Disposition: Home, Self-[facility] Medications: Home Medications Medication Instructions Recorded Confirmed Type Atorvastatin Calcium [Atorvastatin 20 mg PO DAILY 06/03/19 06/12/19 History 20mg Tab] Bumetanide 2 mg PO BID 06/03/19 06/12/19 History Carvedilol [Carvedilol 25mg Tab] 25 mg PO BID 06/03/19 06/12/19 History Collagenase Clostridium Hist. 1 each MC HS 06/03/19 06/12/19 History [Collagenase] Ferrous Sulfate [Iron] 325 mg PO DAILY 06/03/19 06/12/19 History Hydralazine HCl [Hydralazine HCl 25 mg PO TID 06/03/19 06/12/19 History 25mg Tablet] Levothyroxine Sodium 100 mcg PO 0600 06/03/19 06/12/19 History [Levothyroxine 100mcg (0.1MG) Tab] Pantoprazole Sodium [Protonix 40mg 40 mg PO BID 06/03/19 06/12/19 History tablet] Folic Acid [Folic Acid 1mg tablet] 1 mg PO DAILY 06/04/19 06/12/19 History Insulin Glargine,Hum.rec.anlog 6 unit SQ DAILY 06/04/19 06/12/19 History [Lantus Insulin 100units/mL 10mL vial] Spironolactone [Spironolactone 25 mg PO DAILY 06/04/19 06/12/19 History 25mg Tablet] metOLazone [metOLazone 2.5mg 2.5 mg PO DAILY 06/04/19 06/12/19 History Tablet] Prescriptions/Medication Reconciliation: Continued Levothyroxine Sodium [Levothyroxine 100mcg (0.1MG) Tab] 100 mcg PO 0600 Carvedilol [Carvedilol 25mg Tab] 25 mg PO BID Hydralazine HCl [Hydralazine HCl 25mg Tablet] 25 mg PO TID Ferrous Sulfate [Iron] 325 mg PO DAILY Collagenase Clostridium Hist. [Collagenase] 1 each MC HS Bumetanide 2 mg PO BID Atorvastatin Calcium [Atorvastatin 20mg Tab] 20 mg PO DAILY Insulin Glargine,Hum.rec.anlog [Lantus Insulin 100units/mL 10mL vial] 6 unit SQ DAILY metOLazone [metOLazone 2.5mg Tablet] 2.5 mg PO DAILY Spironolactone [Spironolactone 25mg Tablet] 25 mg PO DAILY Pantoprazole Sodium [Protonix 40mg tablet] 40 mg PO BID Folic Acid [Folic Acid 1mg tablet] 1 mg PO DAILY - Problem Reconciliation Problems Reviewed?: Yes
== END 2019-06-14 15:55 | disposition home or self-care (01) | DRG 292 ==
LOC: ER 00:08 → 2ND 00:08
PROVIDERS: ADMIT Internal Medicine Adolescent Medicine; ATTEND Family Medicine
CPT/HCPCS: 36415; 49083; 71010; 71045; 71250; 74176; 80048; 80076; 81001; 82140; 82803; 82962; 83690; 84484; 85014; 85018; 85025; 85610; 86850; 93005; 93306; 94761; 96374; 96375; 99284; P9016; P9047

== ENCOUNTER 2019-07-23 09:30 | Outpatient (RCR) | payer MEDICARE, SELFPAY ==
--- NOTE | 2019-06-25 09:24 | HMH.PTOPEV ---
PT Outpatient Evaluation Rehab PT Outpatient Evaluation Start: 06/25/19 09:06 Freq: Status: Active Protocol: Document 06/25/19 09:09 DEUCE (Rec: 06/25/19 09:19 DEUCE [id number]) Electronically Signed By Aroldo Lema, PT 06/25/19 09:09 Outpatient Therapy Subjective History Subjective History Pt is 68 yoaaf who presents with c/o generalized weakness and SOA with exertion for several mos. She reports multiple hospitalizations over the past yr due to complications with her many co -morbidities, most recently -06/14/19. She has hx of CHF, HL, HTN, DM-II, CKD- stage IV, Cirrhosis, pulmonary sarcoidosis, A-fib, sick sinus syndrome, pacemaker. She reports ambulating with a rolling walker at home at baseline, but she gets tired easily. She reports no pain at rest, but mild pain with ambulation and states, I get really stiff in my legs when I sit too long. Decreased strength in B hips and core. Chief Complaint Pain,Weakness Symptom Type Ache Symptoms Relieved By Rest/Positioning Symptoms Aggravated By Walking Prior Functional Limitations Standing,Walking Current Functional Limitations Standing,Walking Symptom Description Activity Dependent Level of pain today (0-10) 0 Pain scale - at its worst (0-10) 4 Balance Eval Gait/Posture Asssessment General Gait Observation Wide Based Gait,Shuffling Step Assistive Devices Rolling / Wheeled Walker Level of Transfer Assist Standby Assistance Ankle/Foot Observation in Gait Swing Decreased Foot Clearance Timed Up and Go Test 1. Is the Timed Up and Go test result > yes or = to 12 seconds? [place] Feet Together/Eyes open/Stable Surface pass Feet Together/Eyes Closed/Stable Surface pass Feet Together/Eyes open/Unstable Surface pass Feet Together/Eyes Closed/Unstable fail Surface Outpatient Therapy Assessment Impairments Problems/Impairmments Impaired Strength,Impaired Endurance,Impaired Gait Pattern,Impaired Walking, Impaired Recreational Activities,Increased Edema, Subjective C/O
== END 2019-07-23 09:35 | disposition home or self-care (01) ==
LOC: PT 09:30
PROVIDERS: PCP Family Medicine; Visit Provider Family Medicine
DX: R53.1 Weakness (principal)
CPT/HCPCS: 97110; 97116; 97163

== ENCOUNTER 2019-07-23 09:30 | Outpatient (RCR) | payer MEDICARE, SELFPAY ==
--- NOTE | 2019-05-14 17:07 | HMH.PTOPWND ---
Rehab Outpt Wound Evaluation Rehab OP Wound Evaluation Start: 05/14/19 16:40 Freq: Status: Active Protocol: Document 05/14/19 16:41 PWMATT (Rec: 05/14/19 17:07 [email or web address] [id number]) Electronically Signed By Chemo Chanel, SURAJ 05/14/19 16:41 Subjective/History History History This is the initial wound clinic evaluation for Torri Cheema. Pt is a 68 y/o female referred to PT wound clinic for several non-healing wounds on RLE. Pt reports she got real sick in october and had significant edema in . Pt reprots she got water blister on her legs and the poped causing the wound she has now. Pt reports wounds since december. Subjective Subjective Pt c/o pain w/ palpation of wounds Wound Eval Wound Right Distal Calderon Wound Type Stasis Ulcer Is This a Chronic Wound Yes Wound Length (cm) 7.0 Wound Width (cm) 5.0 Wound Bed Appearance Yellow,Slough,Eschar Percentage of Slough (%) 100 Percentage of Eschar (Black) (%) 90 Percentage of Eschar (Yellow) (%) 10 Wound Margins Description Well Defined Drainage Description Purulent Drainage Amount Large Drainage Odor Slight Odor Dressing Status Soiled Wound Topical Solution/Irrigant Antibiotic Irrigant Primary Dressing Silver Dressing Comment tegederm AG mesh w/ dakins Wound Secondary Dressing Type Unna Boot Wound Debridement Method Sharps Wound Debridement Amount of Tissue Large Removed Wound Debridement Result Yellow Sloughing Remains Dressing Change Date 05/14/19 Dressing Change Patient Tolerance Tolerated Well Right Proximal Calderon Wound Type Stasis Ulcer Is This a Chronic Wound Yes Wound Length (cm) 1.0 Wound Width (cm) 1.0 Wound Bed Appearance Beefy Red,Yellow Percentage Granulated (%) 50 Percentage of Slough (%) 50 Percentage of Eschar (Yellow) (%) 50 Wound Margins Description Well Defined Drainage Description Serous Drainage Amount Scant Drainage Odor No Odor Dressing Status Soiled Wound Topical Solution/Irrigant Antibiotic Irrigant Primary Dressing Silver Dressing Comment
== END 2019-07-23 09:35 | disposition home or self-care (01) ==
LOC: PT 09:30
PROVIDERS: Visit Provider Family Medicine
DX: L97.211 Non-pressure chronic ulcer of right calf limited to breakdown of skin (principal)
CPT/HCPCS: 29580; 97163; 97164; 97597; 97598

== ENCOUNTER 2019-07-23 14:49 | Observation (INO) ==
[2019-07-23 16:30] LABS: Basophils % 0.4 % (0.1-2.0); Eosinophils # 0.1 K/mm3 (0.0-0.4); Eosinophils % 2.6 % (0.1-12.0); Hematocrit 26.3 % (37.0-47.0); Lymphocytes # 0.6 K/mm3 (0.7-4.5); Lymphocytes % 26.1 % (10-50); Mean Corpuscular HGB Conc 29.6 g/dL (31.8-35.4); Mean Corpuscular Volume 87.6 fl (81-99); Mean Platelet Volume 7.3 fl (7.4-10.4); Monocytes # 0.3 K/mm3 (0.1-1.0); Monocytes % 11.3 % (1.7-9.3); Neutrophils # 1.5 K/mm3 (1.8-7.8); Neutrophils % 59.6 % (37.0-80.0); Platelet Count 209 K/mm3 (142-424); Red Cell Distribution Width 16.6 % (11.5-17.5); White Blood Count 2.4 K/mm3 (4.8-10.8)
[2019-07-23 16:38] LABS: Alanine Aminotransferase 6 U/L (12-78); Albumin Level 1.8 gm/dL (3.4-5.0); Albumin/Globulin Ratio 0.5 (1.1-1.8); Alkaline Phosphatase 262 U/L (46-116); Anion Gap 8.3 mEq/L (5-15); Aspartate Amino Transferase 17 U/L (15-37); Bilirubin,Total 0.4 mg/dL (0.2-1.0); Blood Urea Nitrogen 26 mg/dL (7-18); Calcium 7.8 mg/dL (8.5-10.1); Carbon Dioxide 29 mmol/L (21.0-32.0); Chloride 109 mmol/L (98-107); Globulin 3.7 gm/dl (1.3-3.2); Glucose 94 mg/dL (74-106); Sodium 142 mmol/L (136-145); Total Protein,Serum 5.5 gm/dL (6.4-8.2)
[2019-07-23 16:52] LABS: INR 1.19 (0.9-1.1); Prothrombin Time 12.3 seconds (9.4-11.8)
[2019-07-23 18:51] LABS: Microscopic, Urine URINE MICROSCOPIC (MICROSCOPIC)
[2019-07-23 18:53] LABS: Appearance,Urine CLEAR (Clear); Bilirubin,Urine Negative (Negative); Blood, Urine Negative (Negative); Color,Urine YELLOW (Yellow); Glucose,Urine (UA) Negative (Negative); Ketones,Urine Negative (Negative); Leukocyte Esterase,Urine Negative (Negative); PH,Urine 5.5 (5.0-8.5); Protein,Urine Negative (Negative); Urobilinogen,Urine 0.2 EU/dl (0.2)
[2019-07-23 19:09] LABS: Bacteria,Urine Trace /lpf; Squamous Epithelial Cell,Urine Occasional #/hpf (0-5)
--- NOTE | 2019-07-23 19:51 | Emergency Department Note ---
ED Disposition Clinical Impression: Anemia, Occult blood positive stool, Anasarca, Liver disease, Ascites of liver, Renal insufficiency Disposition: Admitted as Observation Condition on Discharge: Fair Time of Disposition: 20:13 - Critical Care Critical Care Time: No Attestation: On 07/23/19, the high probability of a clinically significant, sudden or life threatening deterioration of the following system(s) required my full and direct attention, intervention and personal management. The time I documented below is in addition to time spent performing reported procedures but includes the following listed in this critical care notation. Medical Decision Making - Medical Records Medical records reviewed: Yes: I reviewed the patient's medical records. - Rudy Inquiry Pt receiving controlled substance: No Rudy was queried for this patient: No Vital Signs: 07/23/19 14:53 07/23/19 15:58 07/23/19 17:00 Temperature 97.9 F Temperature Source Oral Pulse Rate Pulse Rate [Left] 70 68 78 Respiratory Rate 20 Blood Pressure Blood Pressure [Left Arm] 140/92 H 142/74 H 129/97 H Blood Pressure Mean [Left Arm] 108 96 107 Blood Pressure Source Blood Pressure Source [Left Arm] Automatic Cuff Blood Pressure Position Blood Pressure Position [Left Arm] Sitting 02 Sat by Pulse Oximetry 100 100 100 Oxygen Delivery Method Room Air Nasal Cannula Room Air Oxygen Flow Rate (LPM) 2 2 07/23/19 18:30 07/23/19 19:00 07/23/19 19:30 Temperature Temperature Source Pulse Rate Pulse Rate [Left] 82 69 74 Respiratory Rate Blood Pressure Blood Pressure [Left Arm] 132/66 132/87 134/90 Blood Pressure Mean [Left Arm] 88 102 104 Blood Pressure Source Blood Pressure Source [Left Arm] Blood Pressure Position Blood Pressure Position [Left Arm] Sitting Sitting 02 Sat by Pulse Oximetry 100 99 Oxygen Delivery Method Nasal Cannula Nasal Cannula Oxygen Flow Rate (LPM) 2 2 07/23/19 19:49 Temperature 98.1 F Temperature Source Oral Pulse Rate 72 Pulse Rate [Left] Respiratory Rate 18 Blood Pressure 130/88 Blood Pressure [Left Arm] Blood Pressure Mean [Left Arm] Blood Pressure Source Automatic Cuff Blood Pressure Source [Left Arm] Blood Pressure Position Sitting Blood Pressure Position [Left Arm] 02 Sat by Pulse Oximetry Oxygen Delivery Method Nasal Cannula Oxygen Flow Rate (LPM) 3 - Lab Data Lab results reviewed: Yes: I reviewed the patient's lab results. Lab Results 07/23/19 16:08: WBC 2.4 L, RBC 3.00 L, Hgb 7.8 L*, Hct 26.3 L, MCV 87.6, MCH 26.0 L, MCHC 29.6 L, RDW 16.6, Plt Count 209, MPV 7.3 L, Neut % (Auto) 59.6, Lymph % (Auto) 26.1, [place] % (Auto) 11.3 H, Eos % (Auto) 2.6, Baso % (Auto) 0.4, Neut # (Auto) 1.5 L, Lymph # (Auto) 0.6 L, [place] # (Auto) 0.3, Eos # (Auto) 0.1, Baso # (Auto) 0.0 07/23/19 16:08: Sodium 142, Potassium 4.3, Chloride 109 H, Carbon Dioxide 29, Anion Gap 8.3, BUN 26 H, Creatinine 1.89 H, Estimated Creat Clear 42, Estimated GFR 27 L, Est GFR ( Amer) 32 L, Glucose 94, Calcium 7.8 L, Total Bilirubin 0.4, AST 17, ALT 6 L, Alkaline Phosphatase 262 H, Troponin I < 0.02, Total Protein 5.5 L, Albumin 1.8 L, Globulin 3.7 H, Albumin/Globulin Ratio 0.5 L 07/23/19 16:08: Lactate 1.0 07/23/19 16:08: B-Natriuretic Peptide 462 H 07/23/19 16:08: PT 12.3 H, INR 1.19 H 07/23/19 16:48: Blood Type B Positive, Antibody Screen Negative, Crossmatch (AHG) See Detail 07/23/19 18:25: Stool Occult Blood Positive A 07/23/19 18:31: Urine Color Yellow, Urine Appearance Clear, Urine pH 5.5, Ur Specific [place] 1.020, Urine Protein Negative, Urine Glucose (UA) Negative, Urine Ketones Negative, Urine Blood Negative, Urine Nitrate Negative, Urine Bilirubin Negative, Urine Urobilinogen 0.2, Ur Leukocyte Esterase Negative, Ur Squamous Epith Cells Occasional, Urine Bacteria Trace Result diagrams: 07/23/19 16:08 07/23/19 16:08 Orders (Tests/Meds): ED MEDICATIONS Generic Name Dose Route Start Last Admin Trade Name Freq PRN Reason Stop Dose Admin Sodium Chloride 250 mls @ 25 mls/hr 07/23/19 19:45 Sod Chlor 0.9% 250ml Bag IV 07/24/19 19:44 .Q10H SHENG Discontinued Medications Generic Name Dose Route Start Last Admin Trade Name [place] PRN Reason Stop Dose Admin Furosemide 40 mg 07/23/19 18:43 07/23/19 18:48 Lasix 40mg/4ml Vial IV 07/23/19 18:44 40 mg ONCE ONE Administration Hydromorphone HCl 0.5 mg 07/23/19 16:30 07/23/19 16:15 Dilaudid 2mg/Ml Syringe IV 07/23/19 16:31 0.5 mg ONCE ONE Administration Hydromorphone HCl 0.5 mg 07/23/19 18:34 07/23/19 18:36 Dilaudid 2mg/Ml Syringe IV 07/23/19 18:35 0.5 mg ONCE ONE Administration Ondansetron HCl 4 mg 07/23/19 16:30 07/23/19 16:15 Zofran 4mg/2ml Vial IV 07/23/19 16:31 4 mg ONCE ONE Administration Ondansetron HCl 4 mg 07/23/19 18:35 07/23/19 18:36 Zofran 4mg/2ml Vial IV 07/23/19 18:36 4 mg ONCE ONE Administration ORDERS Category Date Time Status Type and Screen Stat BBK 07/23/19 16:[address] abdomen pelvis wo con Stat Cat Scan 07/23/19 16:[address] chest wo con Stat Cat Scan 07/23/19 16:14 Taken XR chest AP Stat Exams 07/23/19 16:08 Taken Blood Culture Stat Micro 07/23/19 16:48 Received - Physician Consults Physician Consulted: malvin General Adult HPI - General Chief complaint: Shortness of Breath/Dyspnea Stated complaint: SOA coughing up black stuff Time Seen by Provider: 07/23/19 15:05 Mode of Arrival: Wheelchair Source of Information: Patient, Relative Limitations: No Limitations Description of Symptoms (Recalled from ER Triage Doc. by RN): shortness of breath and stomach pain x 2 days. Pt reports vomiting black emesis 1 hr ago. ` - History of Present Illness HPI narrative: multiple complaints, markedly edematous with shortness ofbreath and emesis x 2 today. Weakness reported, - Related Data Home Medications Medication Instructions Recorded Confirmed Atorvastatin Calcium [Atorvastatin 20 mg PO DAILY 06/03/19 07/23/19 20mg Tab] Bumetanide 2 mg PO BID 06/03/19 07/23/19 Carvedilol [Carvedilol 25mg Tab] 25 mg PO BID 06/03/19 07/23/19 Collagenase Clostridium Hist. 1 each MC HS 06/03/19 07/23/19 [Collagenase] Ferrous Sulfate [Iron] 325 mg PO DAILY 06/03/19 07/23/19 Hydralazine HCl [Hydralazine HCl 25 mg PO TID 06/03/19 07/23/19 25mg Tablet] Levothyroxine Sodium 100 mcg PO 0600 06/03/19 07/23/19 [Levothyroxine 100mcg (0.1MG) Tab] Pantoprazole Sodium [Protonix 40mg 40 mg PO BID 06/03/19 07/23/19 tablet] Folic Acid [Folic Acid 1mg tablet] 1 mg PO DAILY 06/04/19 07/23/19 Insulin Glargine,Hum.rec.anlog 6 unit SQ DAILY 06/04/19 07/23/19 [Lantus Insulin 100units/mL 10mL vial] Spironolactone [Spironolactone 25 mg PO DAILY 06/04/19 07/23/19 25mg Tablet] metOLazone [metOLazone 2.5mg 2.5 mg PO DAILY 06/04/19 07/23/19 Tablet] Allergies Allergy/AdvReac Type Severity Reaction Status Date / Time No Known Allergies Allergy Verified 06/17/18 22:06 [facility] History - Hepatitis A Screen Drug use history?: No High risk sexual behaviors?: No History of sexually transmitted infection?: No Currently employed?: No Childcare worker?: No Do you have indoor plumbing?: Yes Do you have electricity?: Yes Attestation statement:: This patient has been screened for Hepatitis A risk factors. I have reviewed the patient's past medical history: Yes Medical History: Reports:: Arrhythmia, Atrial Fibrillation, Congestive Heart Failure, Diabetes Mellitus Type 2, Gastrointestinal Bleed, Heart Murmur, Home Oxygen, Hyperlipidemia, Hypertension, Internal Pacemaker, Lung Disease ([place] sarcoidosis), Renal Disease (Chronic kidney disease stage IV) Denies:: Cancer, Diabetes Mellitus Type 1, MRSA Other Medical History: Reports: Anemia (From chronic kidney disease and GI bleed), Hypothyroidism, Liver Disease (Cirrhosis secondary to sarcoidosis), Thyroid Disease (Hypothyroidism) Comment: Cirrhosis of the liver, pulmonary sarcoidosis Laterality Cases: Right: Arthroscopy Shoulder Other Surgeries: Yes: Cardiac Catheterization, Cholecystectomy, Colonoscopy, EGD, Pacemaker, Tubal Ligation, Other Amputation: No Fractures: No Comment: Cholecystectomy - Social History Educational Level: Completed High School Smoking Status: Never smoker Alcohol Intake: never Occupational Status: disabled Housing: house Household Members: spouse Family Hx:: Diabetes, Heart Attack, Hyperlipidemia, Hypertension ROS Obtained: Yes All systems reviewed & no additional complaints - Constitutional Constitutional: Denies fever(s) - Eyes Eyes: Denies change in vision - ENT Ears, Nose, Mouth, and Throat: Denies sinus pain, Denies sinus pressure, Denies sore throat - Cardiovascular Cardiovascular: Denies chest pain, Denies chest pain at rest, Denies diaphoresis, Reports dyspnea, Reports edema Physical Exam - General General appearance: alert, in no apparent distress - Eye Eye exam: Present: normal appearance, PERRL, EOMI - ENT ENT exam: Present: normal exam, normal oropharynx, mucous membranes moist, TM's normal bilaterally, normal external ear exam - Respiratory Respiratory exam: Present: wheezes. Absent: normal lung sounds bilaterally - Cardiovascular Cardiovascular exam: Present: regular rate, normal rhythm - Abdominal Exam Abdominal exam: Present: distention, other (anasarca). Absent: tenderness - Extremities Exam Extremities exam: Present: pedal edema - Neurological Exam Neurological exam: Present: alert, oriented X3, CN II-XII intact - Psychiatric Psychiatric exam: Present: normal affect, normal mood - Skin Skin exam: Present: warm, dry, intact, normal color
[2019-07-24 02:26] LABS: Hematocrit 29.7 % (37.0-47.0)
[2019-07-24 02:35] LABS: Hemoglobin 8.8 g/dL (12.2-16.2)
[2019-07-24 07:25] LABS: Basophils % 0.5 % (0.1-2.0); Eosinophils # 0.1 K/mm3 (0.0-0.4); Eosinophils % 2.5 % (0.1-12.0); Hematocrit 33.9 % (37.0-47.0); Lymphocytes # 0.7 K/mm3 (0.7-4.5); Lymphocytes % 31.1 % (10-50); Mean Corpuscular HGB Conc 29.6 g/dL (31.8-35.4); Mean Corpuscular Volume 90.3 fl (81-99); Mean Platelet Volume 7.4 fl (7.4-10.4); Monocytes # 0.3 K/mm3 (0.1-1.0); Monocytes % 13.5 % (1.7-9.3); Neutrophils # 1.2 K/mm3 (1.8-7.8); Neutrophils % 52.4 % (37.0-80.0); Platelet Count 194 K/mm3 (142-424); Red Blood Count 3.75 M/mm3 (4.20-5.40); Red Cell Distribution Width 16.3 % (11.5-17.5); White Blood Count 2.4 K/mm3 (4.8-10.8)
[2019-07-24 07:34] LABS: Anion Gap 6.3 mEq/L (5-15); Calcium 7.6 mg/dL (8.5-10.1)
--- NOTE | 2019-07-24 07:52 | Pharmacy Consult Notes ---
[facility] Pharmacy VTE Monitoring - Patient Demographics Admission date: 07/24/19 Report Date: 07/24/19 Time: 07:52 Allergies/Adverse Reactions: Patient Allergies No Known Allergies Allergy (Verified 07/23/19 20:41) Height: 1.68 m Weight: 89.953 kg Patient Problems: Current Active Problems Anemia (Chronic) Liver disease (Acute) Ascites of liver (Acute) Anasarca (Acute) Occult blood positive stool (Acute) Renal insufficiency (Chronic) - VTE Risk Labs: VTE Related Lab Results Hgb 10.0 g/dL (12.2-16.2) L D 07/24/19 07:12 Hct 33.9 % (37.0-47.0) L 07/24/19 07:12 Plt Count 194 K/mm3 (142-424) 07/24/19 07:12 PT 12.3 seconds (9.4-11.8) H 07/23/19 16:08 INR 1.19 (0.9-1.1) H 07/23/19 16:08 BUN 26 mg/dL (7-18) H 07/24/19 07:12 Creatinine 1.95 mg/dL (0.55-1.02) H 07/24/19 07:12 Estimated Creat Clear 40 mL/min (50-200) 07/24/19 07:12 Was VTE Risk Assessment Performed: Yes VTE Score: 5 VTE Risk Level: Low Risk Clinical Trial Participant: No - Prophylaxis VTE Prophylaxis Ordered?: Yes Types of VTE Prophylaxis: TEDS Knee High
--- NOTE | 2019-07-24 08:01 | History & Physical Report ---
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 Patient admits she had been feeling progressively short of breath over the last 72 hours. Evaluation in the emergency department revealed a hemoglobin of 7.8. Discharge hemoglobin from last hospitalization in late May was 9.8. Patient sees the liver clinic at the [facility] and EGD has been scheduled for the end of the month. In the past patient has been relatively asymptomatic from a GI standpoint regarding her anemia and had had an EGD and colonoscopy at an outside facility in January of this year which did not find any apparent source of bleeding. Family was concerned about the color of emesis. Patient does take an iron supplement. Decision was made to admit the patient for transfusion of 2 units of packed red blood cells which has been completed. Other medical history includes atrial fibrillation. Patient has been off anticoagulants since her admissions for anemia in May. Patient has pulmonary sarcoidosis, chronic kidney disease. Patient intermittently develops ascites. [facility] History I have reviewed the patient's past medical history: Yes Medical History: Reports:: Arrhythmia, Atrial Fibrillation, Congestive Heart Failure, Diabetes Mellitus Type 2, Gastrointestinal Bleed, Heart Murmur, Home Oxygen, Hyperlipidemia, Hypertension, Internal Pacemaker, Lung Disease (Manera sarcoidosis), Renal Disease (Chronic kidney disease stage IV) Denies:: Cancer, Diabetes Mellitus Type 1, MRSA *Have you ever received a pneumonia vaccine?: No *Have you received a flu vaccine this season?: No Other Medical History: Reports: Anemia (From chronic kidney disease and GI bleed), Hypothyroidism, Liver Disease (Cirrhosis secondary to sarcoidosis)Comment Only: Thyroid Disease (Hypothyroidism) Laterality Cases: Right: Arthroscopy Shoulder Other Surgeries: Yes: Cardiac Catheterization, Cholecystectomy, Colonoscopy, EGD, Pacemaker, Tubal Ligation, Other Amputation: No Fractures: No - *Social History Educational Level: Attended College Smoking Status: Never smoker Alcohol Intake: never *Occupational Status:: disabled Housing: house Household Members: spouse *Travel in the last 8 weeks: None Family Hx:: Heart Attack, Hyperlipidemia, Hypertension Review of Systems - Constitutional Denies anorexia, Denies body ache(s), Denies chills - *Cardiovascular Denies chest pain, Denies chest pain at rest - *Respiratory Reports shortness of breath, Denies change in phlegm color, Denies chest congestion, Denies cough - *Gastrointestinal Reports bloating, Reports coffee ground vomit, Denies change in bowel habits, Denies change in stools, Denies constipation, Denies loose stools, Denies heartburn, Denies feeling full early Meds Home Medications Medication Instructions Recorded Confirmed Type Atorvastatin Calcium [Atorvastatin 20 mg PO DAILY 06/03/19 07/23/19 History 20mg Tab] Bumetanide 2 mg PO BID 06/03/19 07/23/19 History Carvedilol [Carvedilol 25mg Tab] 25 mg PO BID 06/03/19 07/23/19 History Collagenase Clostridium Hist. 1 each [facility] 06/03/19 07/23/19 History [Collagenase] Ferrous Sulfate [Iron] 325 mg PO DAILY 06/03/19 07/23/19 History Hydralazine HCl [Hydralazine HCl 25 mg PO TID 06/03/19 07/23/19 History 25mg Tablet] Pantoprazole Sodium [Protonix 40mg 40 mg PO BID 06/03/19 07/23/19 History tablet] Folic Acid [Folic Acid 1mg tablet] 1 mg PO DAILY 06/04/19 07/23/19 History Insulin Glargine,Hum.rec.anlog 6 unit SQ 06/04/19 07/23/19 History [Lantus Insulin 100units/mL 10mL vial] Spironolactone [Spironolactone 25 mg PO DAILY 06/04/19 07/23/19 History 25mg Tablet] metOLazone [metOLazone 2.5mg 2.5 mg PO DAILY 06/04/19 07/23/19 History Tablet] Allergies Allergy/AdvReac Type Severity Reaction Status Date / Time No Known Allergies Allergy Verified 07/23/19 20:41 Exam Vital signs and Labs for Last 24 Hours: Temp Pulse Resp BP Pulse Ox 97.8 F 61 18 126/70 97 07/24/19 07:25 07/24/19 07:25 07/24/19 07:25 07/24/19 07:25 07/24/19 07:25 Laboratory Results - last 24 hr 07/23/19 16:08: WBC 2.4 L, RBC 3.00 L, Hgb 7.8 L*, Hct 26.3 L, MCV 87.6, MCH 26.0 L, MCHC 29.6 L, RDW 16.6, Plt Count 209, MPV 7.3 L, Neut % (Auto) 59.6, Lymph % (Auto) 26.1, [place] % (Auto) 11.3 H, Eos % (Auto) 2.6, Baso % (Auto) 0.4, Neut # (Auto) 1.5 L, Lymph # (Auto) 0.6 L, [place] # (Auto) 0.3, Eos # (Auto) 0.1, Baso # (Auto) 0.0 07/23/19 16:08: Sodium 142, Potassium 4.3, Chloride 109 H, Carbon Dioxide 29, Anion Gap 8.3, BUN 26 H, Creatinine 1.89 H, Estimated Creat Clear 42, Estimated GFR 27 L, Est GFR ( Amer) 32 L, Glucose 94, Calcium 7.8 L, Total Bilirubin 0.4, AST 17, ALT 6 L, Alkaline Phosphatase 262 H, Troponin I < 0.02, Total Protein 5.5 L, Albumin 1.8 L, Globulin 3.7 H, Albumin/Globulin Ratio 0.5 L 07/23/19 16:08: Lactate 1.0 07/23/19 16:08: B-Natriuretic Peptide 462 H 07/23/19 16:08: PT 12.3 H, INR 1.19 H 07/23/19 16:48: Blood Type B Positive, Antibody Screen Negative, Crossmatch (AHG) See Detail 07/23/19 18:25: Stool Occult Blood Positive A 07/23/19 18:31: Urine Color Yellow, Urine Appearance Clear, Urine pH 5.5, Ur Specific [place] 1.020, Urine Protein Negative, Urine Glucose (UA) Negative, Urine Ketones Negative, Urine Blood Negative, Urine Nitrate Negative, Urine Bilirubin Negative, Urine Urobilinogen 0.2, Ur Leukocyte Esterase Negative, Ur Squamous Epith Cells Occasional, Urine Bacteria Trace 07/23/19 22:03: POC Glucose 100 07/24/19 02:15: Hgb 8.8 L D, Hct 29.7 L 07/24/19 06:05: POC Glucose 77 07/24/19 07:12: WBC 2.4 L, RBC 3.75 L, Hgb 10.0 L D, Hct 33.9 L, MCV 90.3, MCH 26.7 L, MCHC 29.6 L, RDW 16.3, Plt Count 194, MPV 7.4, Neut % (Auto) 52.4, Lymph % (Auto) 31.1, [place] % (Auto) 13.5 H, Eos % (Auto) 2.5, Baso % (Auto) 0.5, Neut # (Auto) 1.2 L, Lymph # (Auto) 0.7, [place] # (Auto) 0.3, Eos # (Auto) 0.1, Baso # (Auto) 0.0 07/24/19 07:12: Sodium 143, Potassium 4.3, Chloride 110 H, Carbon Dioxide 31, Anion Gap 6.3, BUN 26 H, Creatinine 1.95 H, Estimated Creat Clear 40, Estimated GFR 26 L, Est GFR ( Amer) 31 L, Glucose 71 L D, Calcium 7.6 L I & O for Last 24 hours: Intake & Output 07/21/19 07/22/19 07/23/19 07/24/19 11:59 11:59 11:59 11:59 Intake Total 0 / 0 Balance 0 / 0 Weight 198 lb 5 oz Narrative: Patient is awake and alert laying in bed this morning. She does not appear to be in any distress. She has an intrajugular line. Oropharynx is moist. Neck has no lymphadenopathy. Lungs are clear to auscultation. Heart rate is irregular. Abdomen is soft with some epigastric distention. Lower abdomen is soft, nondistended, nontender. Extremities are warm to the touch and she has active range of motion in her arms and legs. Assessment and Plan (1) Anemia due to blood loss Current visit: Yes Status: Acute Category: Medical Code(s): D50.0 - Iron deficiency anemia secondary to blood loss (chronic) Consult [employer] for EGD. Patient has received IV Protonix. Based on the fact that patient has had prior EGD and colonoscopy earlier in the year I suspect her blood loss is very slow and may be coming from the small bowel as well. Because of active symptoms with having coffee-ground emesis we will proceed with EGD today as opposed to waiting till the end of the month when she sees [facility] liver clinic. Patient has responded well to transfusion of 2 units of packed red blood cells. (2) Upper GI bleeding Current visit: Yes Status: Acute Category: Medical Code(s): K92.2 - Gastrointestinal hemorrhage, unspecified (3) Anasarca Current visit: Yes Status: Acute Category: Medical Code(s): R60.1 - Generalized edema (4) Kidney disease, chronic, stage IV (GFR 15-29 ml/min) Current visit: No Status: Acute Category: Medical Code(s): N18.4 - Chronic kidney disease, stage 4 (severe) (5) Cirrhosis of liver with ascites Current visit: No Status: Chronic Qualifiers: Hepatic cirrhosis type: unspecified hepatic cirrhosis Qualified Code(s): K74.60 - Unspecified cirrhosis of liver; R18.8 - Other ascites Category: Medical Code(s): K74.60 - Unspecified cirrhosis of liver; R18.8 - Other ascites
--- NOTE | 2019-07-24 08:55 | Consult Report ---
*Admission Date: 07/24/19 *Reason for consult:: Request esophagogastroduodenoscopy *History of present illness: This is a 68-year-old female with a complex history of anemia. She was admitted overnight after an episode of abdominal pain follow-up "black" emesis. She is currently undergoing evaluation for her anemia at the [facility] and is scheduled for an esophagogastroduodenoscopy later this month. She did undergo EGD/colonoscopy in January of this year at an outside facility. No obvious source of gastrointestinal hemorrhage has been noted. Review of Systems - Constitutional Denies chills - Eyes Denies change in vision - *Cardiovascular Denies chest pain - *Respiratory Denies cough - *Gastrointestinal Reports abdominal pain, Reports vomiting blood - Psychiatric Denies anxiety [facility] History Medical History: Reports:: Arrhythmia, Atrial Fibrillation, Congestive Heart Failure, Diabetes Mellitus Type 2, Gastrointestinal Bleed, Heart Murmur, Home Oxygen, Hyperlipidemia, Hypertension, Internal Pacemaker, Lung Disease (Manera sarcoidosis), Renal Disease (Chronic kidney disease stage IV) Denies:: Cancer, Diabetes Mellitus Type 1, MRSA *Have you ever received a pneumonia vaccine?: No *Have you received a flu vaccine this season?: No Other Medical History: Reports: Anemia (From chronic kidney disease and GI bleed), Hypothyroidism, Liver Disease (Cirrhosis secondary to sarcoidosis)Com ment Only: Thyroid Disease (Hypothyroidism) Laterality Cases: Right: Arthroscopy Shoulder Other Surgeries: Yes: Cardiac Catheterization, Cholecystectomy, Colonoscopy, EGD, Pacemaker, Tubal Ligation, Other Amputation: No Fractures: No - *Social History Educational Level: Attended College Smoking Status: Never smoker Alcohol Intake: never *Occupational Status:: disabled Housing: house Household Members: spouse *Travel in the last 8 weeks: None Family Hx:: Heart Attack, Hyperlipidemia, Hypertension Meds Home Medications Medication Instructions Recorded Confirmed Type Atorvastatin Calcium [Atorvastatin 20 mg PO DAILY 06/03/19 07/23/19 History 20mg Tab] Bumetanide 2 mg PO BID 06/03/19 07/23/19 History Carvedilol [Carvedilol 25mg Tab] 25 mg PO BID 06/03/19 07/23/19 History Collagenase Clostridium Hist. 1 each HS 06/03/19 07/23/19 History [Collagenase] Ferrous Sulfate [Iron] 325 mg PO DAILY 06/03/19 07/23/19 History Hydralazine HCl [Hydralazine HCl 25 mg PO TID 06/03/19 07/23/19 History 25mg Tablet] Pantoprazole Sodium [Protonix 40mg 40 mg PO BID 06/03/19 07/23/19 History tablet] Folic Acid [Folic Acid 1mg tablet] 1 mg PO DAILY 06/04/19 07/23/19 History Insulin Glargine,Hum.rec.anlog 6 unit SQ HS 06/04/19 07/23/19 History [Lantus Insulin 100units/mL 10mL vial] Spironolactone [Spironolactone 25 mg PO DAILY 06/04/19 07/23/19 History 25mg Tablet] metOLazone [metOLazone 2.5mg 2.5 mg PO DAILY 06/04/19 07/23/19 History Tablet] Allergies Allergy/AdvReac Type Severity Reaction Status Date / Time No Known Allergies Allergy Verified 07/23/19 20:41 Exam Vital signs and Labs for Last 24 Hours: Temp Pulse Resp BP Pulse Ox 97.8 F 72 18 145/72 H 98 07/24/19 08:00 07/24/19 08:00 07/24/19 08:00 07/24/19 08:00 07/24/19 08:00 Laboratory Results - last 24 hr 07/23/19 16:08: WBC 2.4 L, RBC 3.00 L, Hgb 7.8 L*, Hct 26.3 L, MCV 87.6, MCH 26.0 L, MCHC 29.6 L, RDW 16.6, Plt Count 209, MPV 7.3 L, Neut % (Auto) 59.6, Lymph % (Auto) 26.1, [place] % (Auto) 11.3 H, Eos % (Auto) 2.6, Baso % (Auto) 0.4, Neut # (Auto) 1.5 L, Lymph # (Auto) 0.6 L, [place] # (Auto) 0.3, Eos # (Auto) 0.1, Baso # (Auto) 0.0 07/23/19 16:08: Sodium 142, Potassium 4.3, Chloride 109 H, Carbon Dioxide 29, Anion Gap 8.3, BUN 26 H, Creatinine 1.89 H, Estimated Creat Clear 42, Estimated GFR 27 L, Est GFR ( Amer) 32 L, Glucose 94, Calcium 7.8 L, Total Bilirub in 0.4, AST 17, ALT 6 L, Alkaline Phosphatase 262 H, Troponin I < 0.02, Total Protein 5.5 L, Albumin 1.8 L, Globulin 3.7 H, Albumin/Globulin Ratio 0.5 L 07/23/19 16:08: Lactate 1.0 07/23/19 16:08: B-Natriuretic Peptide 462 H 07/23/19 16:08: PT 12.3 H, INR 1.19 H 07/23/19 16:48: Blood Type B Positive, Antibody Screen Negative, Crossmatch (AHG) See Detail 07/23/19 18:25: Stool Occult Blood Positive A 07/23/19 18:31: Urine Color Yellow, Urine Appearance Clear, Urine pH 5.5, Ur Specific [place] 1.020, Urine Protein Negative, Urine Glucose (UA) Negative, Urine Ketones Negative, Urine Blood Negative, Urine Nitrate Negative, Urine Bilirubin Negative, Urine Urobilinogen 0.2, Ur Leukocyte Esterase Negative, Ur Squamous Epith Cells Occasional, Urine Bacteria Trace 07/23/19 22:03: POC Glucose 100 07/24/19 02:15: Hgb 8.8 L D, Hct 29.7 L 07/24/19 06:05: POC Glucose 77 07/24/19 07:12: WBC 2.4 L, RBC 3.75 L, Hgb 10.0 L D, Hct 33.9 L, MCV 90.3, MCH 26.7 L, MCHC 29.6 L, RDW 16.3, Plt Count 194, MPV 7.4, Neut % (Auto) 52.4, Lymph % (Auto) 31.1, [place] % (Auto) 13.5 H, Eos % (Auto) 2.5, Baso % (Auto) 0.5, Neut # (Auto) 1.2 L, Lymph # (Auto) 0.7, [place] # (Auto) 0.3, Eos # (Auto) 0.1, Baso # (Auto) 0.0 07/24/19 07:12: Sodium 143, Potassium 4.3, Chloride 110 H, Carbon Dioxide 31, Anion Gap 6.3, BUN 26 H, Creatinine 1.95 H, Estimated Creat Clear 40, Estimated GFR 26 L, Est GFR ( Amer) 31 L, Glucose 71 L D, Calcium 7.6 L I & O for Last 24 hours: Intake & Output 07/21/19 07/22/19 07/23/19 07/24/19 11:59 11:59 11:59 11:59 Intake Total 0 / 0 Balance 0 / 0 Weight 198 lb 5 oz - Constitutional no acute distress - *Routine Respiratory Exam Absent: respiratory distress - *Routine Cardiovascular Exam Present: irregular rhythm - *Routine Abdominal Exam Present: soft Results - Labs 07/24/19 07:12 07/24/19 07:12 Laboratory Results - last 24 hr 07/23/19 16:08: WBC 2.4 L, RBC 3.00 L, Hgb 7.8 L*, Hct 26.3 L, MCV 87.6, MCH 26.0 L, MCHC 29.6 L, RDW 16.6, Plt Count 209, MPV 7.3 L, Neut % (Auto) 59.6, Lymph % (Auto) 26.1, [place] % (Auto) 11.3 H, Eos % (Auto) 2.6, Baso % (Auto) 0.4, Neut # (Auto) 1.5 L, Lymph # (Auto) 0.6 L, [place] # (Auto) 0.3, Eos # (Auto) 0.1, Baso # (Auto) 0.0 07/23/19 16:08: Sodium 142, Potassium 4.3, Chloride 109 H, Carbon Dioxide 29, Anion Gap 8.3, BUN 26 H, Creatinine 1.89 H, Estimated Creat Clear 42, Estimated GFR 27 L, Est GFR ( Amer) 32 L, Glucose 94, Calcium 7.8 L, Total Bilirubin 0.4, AST 17, ALT 6 L, Alkaline Phosphatase 262 H, Troponin I < 0.02, Total Protein 5.5 L, Albumin 1.8 L, Globulin 3.7 H, Albumin/Globulin Ratio 0.5 L 07/23/19 16:08: Lactate 1.0 07/23/19 16:08: B-Natriuretic Peptide 462 H 07/23/19 16:08: PT 12.3 H, INR 1.19 H 07/23/19 16:48: Blood Type B Positive, Antibody Screen Negative, Crossmatch (AHG) See Detail 07/23/19 18:25: Stool Occult Blood Positive A 07/23/19 18:31: Urine Color Yellow, Urine Appearance Clear, Urine pH 5.5, Ur Specific [place] 1.020, Urine Protein Negative, Urine Glucose (UA) Negative, Urine Ketones Negative, Urine Blood Negative, Urine Nitrate Negative, Urine Bilirubin Negative, Urine Urobilinogen 0.2, Ur Leukocyte Esterase Negative, Ur Squamous Epith Cells Occasional, Urine Bacteria Trace 07/23/19 22:03: POC Glucose 100 07/24/19 02:15: Hgb 8.8 L D, Hct 29.7 L 07/24/19 06:05: POC Glucose 77 07/24/19 07:12: WBC 2.4 L, RBC 3.75 L, Hgb 10.0 L D, Hct 33.9 L, MCV 90.3, MCH 26.7 L, MCHC 29.6 L, RDW 16.3, Plt Count 194, MPV 7.4, Neut % (Auto) 52.4, Lymph % (Auto) 31.1, [place] % (Auto) 13.5 H, Eos % (Auto) 2.5, Baso % (Auto) 0.5, Neut # (Auto) 1.2 L, Lymph # (Auto) 0.7, [place] # (Auto) 0.3, Eos # (Auto) 0.1, Baso # (Auto) 0.0 07/24/19 07:12: Sodium 143, Potassium 4.3, Chloride 110 H, Carbon Dioxide 31, Anion Gap 6.3, BUN 26 H, Creatinine 1.95 H, Estimated Creat Clear 40, Estimated GFR 26 L, Est GFR ( Amer) 31 L, Glucose 71 L D, Calcium 7.6 L Assessment and Plan (1) Anemia due to blood loss Current visit: Yes Status: Acute Category: Medical Code(s): D50.0 - Iron deficiency anemia secondary to blood loss (chronic) (2) Upper GI bleeding Current visit: Yes Status: Acute Category: Medical Code(s): K92.2 - Gastrointestinal hemorrhage, unspecified Continue PPI She is scheduled for esophagogastroduodenoscopy at 7 AM tomorrow morning. I have discussed the risks and benefits including, but not limited to: Bleeding Infection Damage to surrounding tissue Inherent risks of sedation The patient agrees to proceed. (3) Anasarca Current visit: Yes Status: Acute Category: Medical Code(s): R60.1 - Generalized edema (4) Kidney disease, chronic, stage IV (GFR 15-29 ml/min) Current visit: No Status: Acute Category: Medical Code(s): N18.4 - Chronic kidney disease, stage 4 (severe) (5) Cirrhosis of liver with ascites Current visit: No Status: Chronic Qualifiers: Hepatic cirrhosis type: unspecified hepatic cirrhosis Qualified Code(s): K74.60 - Unspecified cirrhosis of liver; R18.8 - Other ascites Category: Medical Code(s): K74.60 - Unspecified cirrhosis of liver; R18.8 - O ther ascites
[2019-07-24 13:56] LABS: Hemoglobin 7.8 g/dL (12.2-16.2)
--- NOTE | 2019-07-25 06:23 | Progress Note ---
Subjective Patient reports: no new complaints Exam Vital signs and Labs for Last 24 Hours: Temp Pulse Resp BP Pulse Ox 98.6 F 70 19 119/70 99 07/25/19 04:00 07/25/19 04:00 07/25/19 04:00 07/25/19 04:00 07/25/19 04:00 Laboratory Results - last 24 hr 07/23/19 16:08: Hgb 7.8 L* 07/23/19 16:48: Crossmatch (AHG) See Detail 07/24/19 07:12: WBC 2.4 L, RBC 3.75 L, Hgb 10.0 L D, Hct 33.9 L, MCV 90.3, MCH 26.7 L, MCHC 29.6 L, RDW 16.3, Plt Count 194, MPV 7.4, Neut % (Auto) 52.4, Lymph % (Auto) 31.1, [place] % (Auto) 13.5 H, Eos % (Auto) 2.5, Baso % (Auto) 0.5, Neut # (Auto) 1.2 L, Lymph # (Auto) 0.7, [place] # (Auto) 0.3, Eos # (Auto) 0.1, Baso # (Auto) 0.0 07/24/19 07:12: Sodium 143, Potassium 4.3, Chloride 110 H, Carbon Dioxide 31, Anion Gap 6.3, BUN 26 H, Creatinine 1.95 H, Estimated Creat Clear 40, Estimated GFR 26 L, Est GFR ( Amer) 31 L, Glucose 71 L D, Calcium 7.6 L 07/24/19 11:57: POC Glucose 114 H 07/24/19 16:48: POC Glucose 107 07/24/19 20:56: POC Glucose 93 07/25/19 06:07: POC Glucose 74 I & O for Last 24 hours: Intake & Output 07/22/19 07/23/19 07/24/19 07/25/19 11:59 11:59 11:59 11:59 Intake Total 0 / 0 720 / 720 Output Total 320 / 320 Balance 0 / 0 400 / 400 Weight 198 lb 5 oz 200 lb 1 oz - Constitutional no acute distress - *Routine Respiratory Exam Absent: respiratory distress - *Routine Cardiovascular Exam Present: RRR Progress Note: A&P (1) Anemia due to blood loss Status: Acute Current Visit: Yes (2) Upper GI bleeding Status: Acute Assessment and plan: EGD this AM Current Visit: Yes (3) Anasarca Status: Acute Current Visit: Yes (4) Kidney disease, chronic, stage IV (GFR 15-29 ml/min) Status: Acute Current Visit: No (5) Cirrhosis of liver with ascites Status: Chronic Current Visit: No
--- NOTE | 2019-07-25 06:47 | Progress Note ---
[facility] Anesthesia Checklist - Patient Identification Patient Identification: Arm Band, Verbal (Name & ) - Structural Data Admitted From: Inpatient Planned Operative Procedure/s: egd Consent for Planned Operative Procedure(s) Verified: Yes Verified Documents: History and Physical - NPO Status Verified Time NPO: 00:00 - Additional verifications Patient : No Anesthesia Reactions: No Hx Blood Transfusions: No Blood Transfusion Reaction: No Cephalosporin Allergy: No Previous Colonoscopy: Yes - Cardiovascular Assessment Heart Sounds: S1 & S2 Pulse Strength: Baseline Pulse Rhythm: Regular Peripheral Edema: No - Airway Assessment C-Spine Mobility Assessed: Yes TMJ Mobility Assessed: Yes Dentition: Edentulous - Neurological Assessment Level of Consciousness: Awake, Alert, Appropriate Hx Seizures: No Numbness or tingling in extremities: No - Anesthesia Plan Anesthesia Risk discussed: Yes Anesthesia Plan: Verified ASA Class: III Anesthesia Type: MAC [facility] History I have reviewed the patient's past medical history: Yes Medical History: Reports:: Arrhythmia, Atrial Fibrillation, Congestive Heart Failure, Diabetes Mellitus Type 2, Gastrointestinal Bleed, Heart Murmur, Home Oxygen, Hyperlipidemia, Hypertension, Internal Pacemaker, Lung Disease (Manera sarcoidosis), Renal Disease (Chronic kidney disease stage IV) Denies:: Cancer, Diabetes Mellitus Type 1, MRSA *Have you ever received a pneumonia vaccine?: No *Have you received a flu vaccine this season?: No Other Medical History: Reports: Anemia (From chronic kidney disease and GI bleed), Hypothyroidism, Liver Disease (Cirrhosis secondary to sarcoidosis)Comment Only: Thyroid Disease (Hypothyroidism) Anesthesia experience/problems:: none Laterality Cases: Right: Arthroscopy Shoulder Other Surgeries: Yes: Cardiac Catheterization, Cholecystectomy, Colonoscopy, EGD, Pacemaker, Tubal Ligation, Other Amputation: No Fractures: No - *Social History Educational Level: Attended College Smoking Status: Never smoker Alcohol Intake: never Substance Use Type: other *Occupational Status:: disabled Housing: house Household Members: spouse *Travel in the last 8 weeks: None Family Hx:: Heart Attack, Hyperlipidemia, Hypertension
--- NOTE | 2019-07-25 07:32 | Procedure Note ---
- Procedure: Date: 07/25/19 Procedure Performed:: Esophagogastroduodenoscopy with biopsy Indications:: Anemia Performing Provider:: Semaj Jordan MD Referring Provider:: Dr. Albrecht Sedation:: Monitored anesthesia care Procedure:: After informed consent was obtained the patient was taken to the endoscopy suite. Sedation ensued after the patient was transferred to the left lateral d ecubitus position. Pulse, blood pressure, and oxygen saturation were monitored throughout the procedure. The endoscope was advanced beyond the duodenal bulb. Retroflexion within the gastric lumen was accomplished. The gastroscope was carefully removed and the patient was transferred to recovery in stable condition. Please see "findings" and "specimens" below for detail. Findings:: Large sliding hiatal hernia Shallow linear erosions of gastric mucosa in the region of herniation No active bleeding or large ulcerations Patchy gastroduodenitis Note: Overall, there was difficulty in visualization secondary to inability to maintain an appropriate level of sedation without significant hypoxia. Specimens:: Antral biopsy Recommendations:: Continue proton pump inhibition Repeat esophagogastroduodenoscopy as scheduled at the [facility] later this month May require consideration of hiatal hernia repair Complications:: No immediate Estimated blood obtained (mL): 1
--- NOTE | 2019-07-25 09:52 | Discharge Summary ---
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 Patient admits she had been feeling progressively short of breath over the last 72 hours. Evaluation in the emergency department revealed a hemoglobin of 7.8. Discharge hemoglobin from last hospitalization in late May was 9.8. Patient sees the liver clinic at the [facility] and EGD has been scheduled for the end of the month. In the past patient has been relatively asymptomatic from a GI standpoint regarding her anemia and had had an EGD and colonoscopy at an outside facility in January of this year which did not find any apparent source of bleeding. Family was concerned about the color of emesis. Patient does take an iron supplement. Decision was made to admit the patient for transfusion of 2 units of packed red blood cells which has been completed. Other medical history includes atrial fibrillation. Patient has been off anticoagulants since her admissions for anemia in May. Patient has pulmonary sarcoidosis, chronic kidney disease. Patient intermittently develops ascites. Hospital Course Hospital Course: Patient was admitted. Labs were stabilized. Patient was subjected to EGD this morning which revealed linear gastric erosions but no active bleeding. Plan will be to discharge patient home on PPI as well as sucralfate, she will k eep her appointment in July with GI and we will have her see Dr. Albrecht next week. Instructed on soft mechanical diet. Objective Vital signs: Temp Pulse Resp BP Pulse Ox 98.1 F 78 17 140/88 100 07/25/19 08:20 07/25/19 08:20 07/25/19 08:20 07/25/19 08:20 07/25/19 08:20 Narrative: ENT exam clear. No scleral icterus. Lungs have good air movement. Abdomen slightly protuberant, normal bowel sounds. Heart rate regular. No peripheral edema. Alert. Pleasant. Oriented x3. Results Labs on day of discharge: Labs from last 24 hours 07/25/19 07/24/19 07/24/19 06:07 20:56 16:48 Hgb POC Glucose 74 93 107 07/24/19 07/23/19 11:57 16:08 Hgb 7.8 L* POC Glucose 114 H DS: Diagnosis - Discharge Diagnosis (1) Anemia due to blood loss Status: Resolved (2) Upper GI bleeding Status: Resolved (3) Anasarca Status: Acute (4) Kidney disease, chronic, stage IV (GFR 15-29 ml/min) Status: Acute (5) Cirrhosis of liver with ascites Status: Chronic Discharge Plan - Patient Discharge Instructions ACTIVITY: Continue current activity DIET: continue same diet Patient Instructions: Blood Transfusion, Anemia, DI for Blood Transfusion - Follow up Plan Follow up with: Rafi Albrecht MD [Staff Physician] - Disposition: Home, Self-Long-Term Medications: Home Medications Medication Instructions Recorded Confirmed Type Atorvastatin Calcium [Atorvastatin 20 mg PO DAILY 06/03/19 07/23/19 History 20mg Tab] Bumetanide 2 mg PO DAILY 06/03/19 07/24/19 History Carvedilol [Carvedilol 25mg Tab] 25 mg PO BID 06/03/19 07/23/19 History Collagenase Clostridium Hist. 1 each [facility] 06/03/19 07/23/19 History [Collagenase] Ferrous Sulfate [Iron] 325 mg PO DAILY 06/03/19 07/23/19 History Pantoprazole Sodium [Protonix 40mg 40 mg PO DAILY 06/03/19 07/24/19 History tablet] Folic Acid [Folic Acid 1mg tablet] 1 mg PO DAILY 06/04/19 07/23/19 History Insulin Glargine,Hum.rec.anlog 6 unit SQ 06/04/19 07/23/19 History [Lantus Insulin 100units/mL 10mL vial] Spironolactone [Spironolactone 25 mg PO BID 06/04/19 07/24/19 History 25mg Tablet] Hydralazine HCl 50 mg PO TID 07/24/19 07/24/19 History Omeprazole [Omeprazole 20mg Tab] 20 mg PO BID #60 tab 07/25/19 Rx Sucralfate [Sucralfate 1gm 1 gm PO ACHS #120 tab 07/25/19 Rx Tab] Prescriptions/Medication Reconciliation: New Omeprazole [Omeprazole 20mg Tab] 20 mg PO BID #60 tab Sucralfate [Sucralfate 1gm Tab] 1 gm PO ACHS #120 tab Continued Carvedilol [Carvedilol 25mg Tab] 25 mg PO BID Ferrous Sulfate [Iron] 325 mg PO DAILY Collagenase Clostridium Hist. [Collagenase] 1 each [facility] HS Bumetanide 2 mg PO DAILY Atorvastatin Calcium [Atorvastatin 20mg Tab] 20 mg PO DAILY Insulin Glargine,Hum.rec.anlog [Lantus Insulin 100units/mL 10mL vial] 6 unit SQ HS Spironolactone [Spironolactone 25mg Tablet] 25 mg PO BID Hydralazine HCl 50 mg PO TID Pantoprazole Sodium [Protonix 40mg tablet] 40 mg PO DAILY Folic Acid [Folic Acid 1mg tablet] 1 mg PO DAILY - Problem Reconciliation Problems Reviewed?: Yes
== END 2019-07-25 11:50 | disposition home or self-care (01) ==
LOC: ER 14:49 → 2ND 14:49
PROVIDERS: ADMIT Family Medicine; ATTEND Family Medicine
DX: I50.9 Heart failure, unspecified; N18.4 Chronic kidney disease, stage 4 (severe); D86.0 Sarcoidosis of lung; E03.9 Hypothyroidism, unspecified; D50.0 Iron deficiency anemia secondary to blood loss (chronic); Z79.899 Other long term (current) drug therapy; K74.69 Other cirrhosis of liver; I13.0 Hypertensive heart and chronic kidney disease with heart failure and stage 1 through stage 4 chronic kidney disease, or unspecified chronic kidney disease; E78.5 Hyperlipidemia, unspecified; Z99.81 Dependence on supplemental oxygen; Z79.4 Long term (current) use of insulin; E11.22 Type 2 diabetes mellitus with diabetic chronic kidney disease; K25.9 Gastric ulcer, unspecified as acute or chronic, without hemorrhage or perforation; R18.8 Other ascites
CPT/HCPCS: 36415; 71010; 71045; 71250; 74176; 80048; 80053; 81001; 82272; 82962; 83605; 83880; 84484; 85014; 85018; 85025; 85610; 86850; 87040; 88305; 94761; 96374; 96375; 96376; 99283; G0328; G0378; J2405; P9016

== ENCOUNTER 2019-07-28 08:55 | Inpatient (IN) ==
--- NOTE | 2019-07-28 09:31 | Emergency Department Note ---
ED Disposition Clinical Impression: CHF (congestive heart failure) Qualifiers: Heart failure type: unspecified Heart failure chronicity: unspecified Qualified Code(s): I50.9 - Heart failure, unspecified Ascites Qualifiers: Ascites type: other type Qualified Code(s): R18.8 - Other ascites Disposition: Admitted as Observation Condition on Discharge: Good Referrals: Aldo Juarez MD [Primary Care Provider] - - Critical Care Critical Care Time: No Attestation: On 07/28/19, the high probability of a clinically significant, sudden or life threatening deterioration of the following system(s) required my full and direct attention, intervention and personal management. The time I documented below is in addition to time spent performing reported procedures but includes the following listed in this critical care notation. Medical Decision Making - Medical Records Medical records reviewed: Yes: I reviewed the patient's medical records. - Rudy Inquiry Pt receiving controlled substance: No Vital Signs: 07/28/19 08:55 07/28/19 09:43 07/28/19 10:37 Temperature 98.5 F Temperature Source Oral Pulse Rate 80 Pulse Rate [Left Radial] 95 H 90 Respiratory Rate 36 H Blood Pressure [Right Arm] 150/102 H 141/85 H Blood Pressure Mean [Right Arm] 118 103 Blood Pressure Position [Right Arm] Sitting 02 Sat by Pulse Oximetry 96 99 Oxygen Delivery Method Nasal Cannula Oxygen Flow Rate (LPM) 4 07/28/19 13:03 Temperature Temperature Source Pulse Rate Pulse Rate [Left Radial] 87 Respiratory Rate Blood Pressure [Right Arm] 133/74 Blood Pressure Mean [Right Arm] 93 Blood Pressure Position [Right Arm] 02 Sat by Pulse Oximetry 98 Oxygen Delivery Method Nasal Cannula Oxygen Flow Rate (LPM) 4 - Lab Data Lab results reviewed: Yes: I reviewed the patient's lab results. Lab Results 07/28/19 09:16: WBC 4.7 L, RBC 4.34, Hgb 11.4 L, Hct 39.8, MCV 91.8, MCH 26.3 L, MCHC 28.7 L, RDW 16.4, Plt Count 239, MPV 7.3 L, Neut % (Auto) 77.3, Lymph % (Auto) 17.2, [place] % (Auto) 3.1, Eos % (Auto) 1.9, Baso % (Auto) 0.5, Neut # (Auto) 3.6, Lymph # (Auto) 0.8, [place] # (Auto) 0.1, Eos # (Auto) 0.1, Baso # (Auto) 0.0 07/28/19 09:16: B-Natriuretic Peptide 1450 H 07/28/19 09:29: Specimen Source Left radial, O2 % 3l, ABG pH 7.30 L, ABG pCO2 49.6 H, ABG pO2 118.9 H, ABG HCO3 24.0, ABG Total CO2 25.5, ABG O2 Saturation 98, ABG Base Excess -2.4, Micha Test acceptable 07/28/19 09:55: Sodium 141, Potassium 4.5, Chloride 107, Carbon Dioxide 30, Anion Gap 8.5, BUN 31 H, Creatinine 2.27 H, Estimated Creat Clear 35, Estimated GFR 22 L, Est GFR ( Amer) 26 L, Glucose 86, Calcium 8.0 L, Total Bilirubin 0.9, AST 19, ALT 7 L, Alkaline Phosphatase 298 H, Troponin I < 0.02, Total Protein 6.3 L, Albumin 2.1 L, Globulin 4.2 H, Albumin/Globulin Ratio 0.5 L , Lipase 35 L 07/28/19 09:55: Lactate 0.4 07/28/19 12:00: Ammonia 24 Result diagrams: 07/28/19 09:16 07/28/19 09:55 Orders (Tests/Meds): ED MEDICATIONS Discontinued Medications Generic Name Dose Route Start Last Admin Trade Name Freq PRN Reason Stop Dose Admin Albuterol/Ipratropium 3 ml 07/28/19 09:28 07/28/19 09:42 Duoneb 3ml Neb IH 07/28/19 09:29 3 ml ONCE ONE Administration Furosemide 20 mg 07/28/19 10:29 07/28/19 10:42 Lasix 20mg/2ml Vial IV 07/28/19 10:30 20 mg ONCE ONE Administration ORDERS Category Date Time Status XR chest portable Stat Exams 07/28/19 09:24 Taken Urinalysis and Microscopic Stat Lab 07/28/19 09:25 Ordered Blood Culture Stat Micro 07/28/19 09:55 Ordered - Radiology Data #1 Image(s): Chest Image Reviewed: Yes I reviewed the patient's radiology image pleural effusion - CT Data CT Scan: Abdomen Time Received: 13:[address] Reviewed: Yes: I have viewed the radiologist's interpretation Findings Narrative: ascites - ECG Data Tracing #1 Arrhythmias present: sinus tach, other (no stemi) Medical Decision Narrative: pt fluid overloaded is treated w/ lasix, admit d/w Dr Jacobo General Adult HPI - General Stated complaint: SOA Time Seen by Provider: 07/28/19 09:28 Source of Information: Patient, Significant Other - History of Present Illness HPI narrative: mild to mod short of breath and ARCE today with abdominal cramps and vomitting, no fever, hx chf and cirrhosis - Related Data Home Medications Medication Instructions Recorded Confirmed Atorvastatin Calcium [Atorvastatin 20 mg PO DAILY 06/03/19 07/23/19 20mg Tab] Bumetanide 2 mg PO DAILY 06/03/19 07/24/19 Carvedilol [Carvedilol 25mg Tab] 25 mg PO BID 06/03/19 07/23/19 Collagenase Clostridium Hist. 1 each [facility] 06/03/19 07/23/19 [Collagenase] Ferrous Sulfate [Iron] 325 mg PO DAILY 06/03/19 07/23/19 Pantoprazole Sodium [Protonix 40mg 40 mg PO DAILY 06/03/19 07/24/19 tablet] Folic Acid [Folic Acid 1mg tablet] 1 mg PO DAILY 06/04/19 07/23/19 Insulin Glargine,Hum.rec.anlog 6 unit SQ HS 06/04/19 07/23/19 [Lantus Insulin 100units/mL 10mL vial] Spironolactone [Spironolactone 25 mg PO BID 06/04/19 07/24/19 25mg Tablet] Hydralazine HCl 50 mg PO TID 07/24/19 07/24/19 Previous Rx's Medication Instructions Recorded Omeprazole [Omeprazole 20mg Tab] 20 mg PO BID #60 tab 07/25/19 Sucralfate [Sucralfate 1gm 1 gm PO ACHS #120 tab 07/25/19 Tab] Allergies Allergy/AdvReac Type Severity Reaction Status Date / Time No Known Allergies Allergy Verified 07/23/19 20:41 [facility] History - Hepatitis A Screen Attestation statement:: This patient has been screened for Hepatitis A risk factors. Medical History: Reports:: Arrhythmia, Atrial Fibrillation, Congestive Heart Failure, Diabetes Mellitus Type 2, Gastrointestinal Bleed, Heart Murmur, Home Oxygen, Hyperlipidemia, Hypertension, Internal Pacemaker, Lung Disease (Manera sarcoidosis), Renal Disease (Chronic kidney disease stage IV) Denies:: Cancer, Diabetes Mellitus Type 1, MRSA, Seizures Other Medical History: Reports: Anemia (From chronic kidney disease and GI bleed), Hypothyroidism, Liver Disease (Cirrhosis secondary to sarcoidosis). Denies: Blood Transfusion Reaction. Comment Only: Thyroid Disease (Hypothyroidism) Comment: Cirrhosis of the liver, pulmonary sarcoidosis Laterality Cases: Right: Arthroscopy Shoulder Other Surgeries: Yes: Cardiac Catheterization, Cholecystectomy, Colonoscopy, EGD, Pacemaker, Tubal Ligation, Other Amputation: No Fractures: No Comment: Cholecystectomy - Social History Smoking Status: Never smoker Alcohol Intake: never Substance Use Type: other Occupational Status: disabled Housing: house Household Members: spouse Family Hx:: Heart Attack, Hyperlipidemia, Hypertension ROS Obtained: Yes Systems reviewed as appropriate & no additional complaints - Constitutional Constitutional: Reports fatigue - Eyes Eyes: Denies change in vision - ENT Ears, Nose, Mouth, and Throat: Denies headache(s) - Cardiovascular Cardiovascular: Denies chest pain - Respiratory Respiratory: Yes dyspnea, No stridor, Yes wheezing - Gastrointestinal Gastrointestingal: Reports: abdominal pain, vomiting - Musculoskeletal Musculoskeletal: Denies neck pain - Integumentary/Breasts Skin/Breast: Denies rash - Neurologic Neurologic: Denies dizziness Physical Exam - General General appearance: alert - Head Head exam: normocephalic - Eye Eye exam: Absent: conjunctival redness - ENT ENT exam: Present: mucous membranes moist - Neck Neck exam: Present: normal inspection - Chest Chest inspection: Present: normal inspection - Respiratory Respiratory exam: Present: wheezes. Absent: stridor - Cardiovascular Cardiovascular exam: Present: regular rate, normal rhythm - Abdominal Exam Abdominal exam: Present: soft, tenderness. Absent: rebound - Extremities Exam Extremities exam: Absent: tenderness - Back Exam Back exam: Absent: vertebral tenderness - Neurological Exam Neurological exam: Present: alert, oriented X3 - Psychiatric Psychiatric exam: Present: normal affect, normal mood - Skin Skin exam: Present: warm, dry
[2019-07-28 09:38] LABS: ABG Base Excess -2.4 mmol/L (-2.4-2.3); ABG Oxygen Saturation 98 % (90-100); ABG PCO2 49.6 mmhg (35.0-45.0); ABG PO2 118.9 mmhg (80-100); ABG TCO2 25.5 mmhg (23-27)
[2019-07-28 09:39] LABS: Allen's Test acceptable; Oxygen 3L %
[2019-07-28 09:42] LABS: Basophils % 0.5 % (0.1-2.0); Eosinophils # 0.1 K/mm3 (0.0-0.4); Eosinophils % 1.9 % (0.1-12.0); Hematocrit 39.8 % (37.0-47.0); Hemoglobin 11.4 g/dL (12.2-16.2); Lymphocytes # 0.8 K/mm3 (0.7-4.5); Lymphocytes % 17.2 % (10-50); Mean Corpuscular HGB Conc 28.7 g/dL (31.8-35.4); Mean Corpuscular Volume 91.8 fl (81-99); Mean Platelet Volume 7.3 fl (7.4-10.4); Monocytes # 0.1 K/mm3 (0.1-1.0); Monocytes % 3.1 % (1.7-9.3); Neutrophils # 3.6 K/mm3 (1.8-7.8); Neutrophils % 77.3 % (37.0-80.0); Platelet Count 239 K/mm3 (142-424); Red Blood Count 4.34 M/mm3 (4.20-5.40); Red Cell Distribution Width 16.4 % (11.5-17.5); White Blood Count 4.7 K/mm3 (4.8-10.8)
[2019-07-28 10:28] LABS: Alanine Aminotransferase 7 U/L (12-78); Albumin Level 2.1 gm/dL (3.4-5.0); Albumin/Globulin Ratio 0.5 (1.1-1.8); Alkaline Phosphatase 298 U/L (46-116); Anion Gap 8.5 mEq/L (5-15); Aspartate Amino Transferase 19 U/L (15-37); Bilirubin,Total 0.9 mg/dL (0.2-1.0); Blood Urea Nitrogen 31 mg/dL (7-18); Carbon Dioxide 30 mmol/L (21.0-32.0); Chloride 107 mmol/L (98-107); Globulin 4.2 gm/dl (1.3-3.2); Glucose 86 mg/dL (74-106); Sodium 141 mmol/L (136-145); Total Protein,Serum 6.3 gm/dL (6.4-8.2)
[2019-07-29 06:58] LABS: Basophils % 0.3 % (0.1-2.0); Eosinophils % 0.4 % (0.1-12.0); Platelet Count 182 K/mm3 (142-424); Red Cell Distribution Width 16.5 % (11.5-17.5)
[2019-07-29 07:13] LABS: Anion Gap 7.5 mEq/L (5-15); Calcium 7.9 mg/dL (8.5-10.1)
--- NOTE | 2019-07-29 07:22 | History & Physical Report ---
*Admission Date: 07/28/19 *Chief complaint: Shortness of breath *History of present illness: 68-year-old female with multiple medical problems presented to the emergency department with less than 24 hours of shortness of breath. Patient reports on Monday she began to develop some shortness of breath and just overall malaise. She wears oxygen at home but her shortness of breath persisted into Monday morning when she presented to the emergency department. Work-up in the ER was consistent with patient being fluid overloaded and she was admitted with diagnosis of acute CHF with preserved ejection fraction. Patient was given Lasix 20 mg in the emergency department in the morning. Response is unknown as patient could not comply with accurate measurements of urine outputs due to incontinence. She is given additional dose of Lasix 60 mg intravenously yesterday evening. This morning patient reports mild improvement in shortness of breath. Her cough was productive of clear phlegm. She denies fevers or chills at home. CT scan of the abdomen and pelvis performed upon admission did identify pleural effusions in the base of the lungs [facility] History I have reviewed the patient's past medical history: Yes Medical History: Reports:: Arrhythmia, Atrial Fibrillation, Congestive Heart Failure, Diabetes Mellitus Type 2, Gastrointestinal Bleed, Heart Murmur, Home Oxygen, Hyperlipidemia, Hypertension, Internal Pacemaker, Lung Disease (Manera sarcoidosis), Renal Disease (Chronic kidney disease stage IV) Denies:: Cancer, Diabetes Mellitus Type 1, MRSA, Seizures *Have you ever received a pneumonia vaccine?: Yes *Have you received a flu vaccine this season?: No Other Medical History: Reports: Anemia (From chronic kidney disease and GI bleed), Hypothyroidism, Liver Disease. Denies: Blood Transfusion Reaction. 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 Laterality Cases: Right: Arthroscopy Shoulder Other Surgeries: Yes: Cardiac Catheterization, Cholecystectomy, Colonoscopy, EGD, Pacemaker, Tubal Ligation, Other Amputation: No Fractures: No - *Social History Educational Level: Completed High School Smoking Status: Never smoker Alcohol Intake: never Substance Use Type: other *Occupational Status:: disabled Housing: house Household Members: spouse, children *Travel in the last 8 weeks: None Family Hx:: Heart Attack, Hypertension Review of Systems - Constitutional Reports anorexia, Reports fatigue, Reports headache(s), Denies body ache(s), Denies chills, Denies fever(s) - *Cardiovascular Denies chest pain, Denies chest pain at rest, Denies chest pain with activity, Denies shortness of breath - *Respiratory Reports chest congestion, Reports cough, Reports shortness of breath, Reports shortness of breath with activity, Denies change in phlegm color, Denies coughing up blood, Denies pain on inspiration, Denies pain with cough - *Gastrointestinal Reports bloating, Reports loose stools, Denies abdominal pain, Denies belching - *Musculoskeletal Reports abnormal walking, Reports joint pain - *Neurologic Denies dizziness, Denies headache(s) Meds Home Medications Medication Instructions Recorded Confirmed Type Atorvastatin Calcium [Atorvastatin 20 mg PO DAILY 06/03/19 07/28/19 History 20mg Tab] Bumetanide 2 mg PO DAILY 06/03/19 07/28/19 History Carvedilol [Carvedilol 25mg Tab] 25 mg PO BID 06/03/19 07/28/19 History Pantoprazole Sodium [Protonix 40mg 40 mg PO DAILY 06/03/19 07/28/19 History tablet] Folic Acid [Folic Acid 1mg tablet] 1 mg PO DAILY 06/04/19 07/28/19 History Insulin Glargine,Hum.rec.anlog 6 unit SQ HS 06/04/19 07/28/19 History [Lantus Insulin 100units/mL 10mL vial] Spironolactone [Spironolactone 25 mg PO BID 06/04/19 07/28/19 History 25mg Tablet] Hydralazine HCl 50 mg PO TID 07/24/19 07/28/19 History Ferrous Sulfate [Iron] 65 mg PO DAILY 07/28/19 07/28/19 History Potassium 99 mg PO DAILY 07/28/19 07/28/19 History Sucralfate [Sucralfate 1gm 1 gm PO ACHS 07/28/19 07/28/19 History Tab] Allergies Allergy/AdvReac Type Severity Reaction Status Date / Time No Known Allergies Allergy Verified 07/23/19 20:41 Exam Vital signs and Labs for Last 24 Hours: Temp Pulse Resp BP Pulse Ox 98.4 F 76 21 104/69 L 99 07/29/19 04:00 07/29/19 04:00 07/29/19 04:00 07/29/19 04:00 07/29/19 04:00 Laboratory Results - last 24 hr 07/28/19 09:16: WBC 4.7 L, RBC 4.34, Hgb 11.4 L, Hct 39.8, MCV 91.8, MCH 26.3 L, MCHC 28.7 L, RDW 16.4, Plt Count 239, MPV 7.3 L, Neut % (Auto) 77.3, Lymph % (Auto) 17.2, [place] % (Auto) 3.1, Eos % (Auto) 1.9, Baso % (Auto) 0.5, Neut # (Auto) 3.6, Lymph # (Auto) 0.8, [place] # (Auto) 0.1, Eos # (Auto) 0.1, Baso # (Auto) 0.0 07/28/19 09:16: B-Natriuretic Peptide 1450 H 07/28/19 09:29: Specimen Source Left radial, O2 % 3l, ABG pH 7.30 L, ABG pCO2 49.6 H, ABG pO2 118.9 H, ABG HCO3 24.0, ABG Total CO2 25.5, ABG O2 Saturation 98, ABG Base Excess -2.4, Micha Test acceptable 07/28/19 09:55: Sodium 141, Potassium 4.5, Chloride 107, Carbon Dioxide 30, Anion Gap 8.5, BUN 31 H, Creatinine 2.27 H, Estimated Creat Clear 35, Estimated GFR 22 L, Est GFR ( Amer) 26 L, Glucose 86, Calcium 8.0 L, Total Bilirubin 0.9, AST 19, ALT 7 L, Alkaline Phosphatase 298 H, Troponin I < 0.02, Total Protein 6.3 L, Albumin 2.1 L, Globulin 4.2 H, Albumin/Globulin Ratio 0.5 L , Lipase 35 L 07/28/19 09:55: Lactate 0.4 07/28/19 12:00: Ammonia 24 07/28/19 16:41: POC Glucose 111 H 07/28/19 17:35: Troponin I < 0.02 07/28/19 20:48: POC Glucose 101 07/28/19 23:20: Troponin I < 0.02 07/29/19 06:07: POC Glucose 89 07/29/19 06:38: Sodium 141, Potassium 4.5, Chloride 108 H, Carbon Dioxide 30, Anion Gap 7.5, BUN 34 H, Creatinine 2.56 H, Estimated Creat Clear 31, Estimated GFR 19 L*, Est GFR ( Amer) 23 L, Glucose 97, Calcium 7.9 L I & O for Last 24 hours: Intake & Output 07/26/19 07/27/19 07/28/19 07/29/19 11:59 11:59 11:59 11:59 Intake Total 478 / 478 Output Total 50 / 50 Balance 428 / 428 Weight 199 lb 202 lb 7 oz Microbiology Reports for the Last 24 Hours: Microbiology 07/28/19 09:55 Blood Blood Culture - Preliminary Narrative: Patient appears in no distress. She does appear older than her stated age. Pupils are reactive to light and sclera are nonicteric. Oropharynx is moist. Neck is without lymphadenopathy. Lungs have faint end expiratory wheezes heard both anteriorly and posteriorly with diminished breath sounds at bases consistent with her pleural effusions. Heart has a regular rate and rhythm. Abdomen is soft with subcutaneous edema as well as ascites is palpable. Patient also has trace lower extremity edema. Neurologically there is no gross deficit Assessment and Plan (1) Acute diastolic (congestive) heart failure Current visit: Yes Status: Acute Category: Medical Code(s): I50.31 - Acute diastolic (congestive) heart failure Patient is seemingly responded to intravenous Lasix. Await BMP this morning to assess renal function. Repeat chest x-ray today regarding patient's pleural effusions. (2) Pulmonary artery hypertension Current visit: Yes Status: Chronic Category: Medical Code(s): I27.21 - Secondary pulmonary arterial hypertension (3) BMI 32.0-32.9,adult Current visit: Yes Status: Acute Category: Medical Code(s): Z68.32 - Body mass index (BMI) 32.0-32.9, adult (4) Sarcoidosis of lung Current visit: Yes Status: Chronic Category: Medical Code(s): D86.0 - Sarcoidosis of lung (5) Sarcoidosis of digestive system Current visit: Yes Status: Chronic Category: Medical Code(s): D86.9 - Sarcoidosis, unspecified (6) Kidney disease, chronic, stage IV (GFR 15-29 ml/min) Current visit: No Status: Chronic Category: Medical Code(s): N18.4 - Chronic kidney disease, stage 4 (severe) (7) Pleural effusion associated with hepatic disorder Current visit: No Status: Acute Category: Medical Code(s): K76.9 - Liver disease, unspecified; J91.8 - Pleural effusion in other conditions classified elsewhere (8) Cirrhosis of liver with ascites Current visit: No Status: Chronic Qualifiers: Hepatic cirrhosis type: unspecified hepatic cirrhosis Qualified Code(s): K74.60 - Unspecified cirrhosis of liver; R18.8 - Other ascites Category: Medical Code(s): K74.60 - Unspecified cirrhosis of liver; R18.8 - Other ascites (9) Anemia due to blood loss Current visit: No Status: Resolved Category: Medical Code(s): D50.0 - Iron deficiency anemia secondary to blood loss (chronic) (10) Bronchospasm, acute Current visit: Yes Status: Acute Category: Medical Code(s): J98.01 - Acute bronchospasm Start Solu-Medrol 60 mg every 8 hours and duo nebs 4 times per day
--- NOTE | 2019-07-29 07:41 | Pharmacy Consult Notes ---
[facility] Pharmacy VTE Monitoring - Patient Demographics Admission date: 07/28/19 Report Date: 07/29/19 Time: 07:40 Allergies/Adverse Reactions: Patient Allergies No Known Allergies Allergy (Verified 07/23/19 20:41) Height: 1.68 m Weight: 91.824 kg Patient Problems: Current Active Problems Ascites (Acute) Acute diastolic (congestive) heart failure (Acute) Pulmonary artery hypertension (Chronic) BMI 32.0-32.9,adult (Acute) Sarcoidosis of lung (Chronic) Sarcoidosis of digestive system (Chronic) Bronchospasm, acute (Acute) CHF (congestive heart failure) (Chronic) - VTE Risk Labs: VTE Related Lab Results Hgb 11.4 g/dL (12.2-16.2) L 07/28/19 09:16 Hct 39.8 % (37.0-47.0) 07/28/19 09:16 Plt Count 239 K/mm3 (142-424) 07/28/19 09:16 BUN 34 mg/dL (7-18) H 07/29/19 06:38 Creatinine 2.56 mg/dL (0.55-1.02) H 07/29/19 06:38 Estimated Creat Clear 31 mL/min (50-200) 07/29/19 06:38 Was VTE Risk Assessment Performed: Yes VTE Risk Level: Low Risk - Prophylaxis VTE Prophylaxis Ordered?: Yes Types of VTE Prophylaxis: TEDS Knee High Location of Applied Device: Bilateral Lower Extremeties - VTE Diagnosis Confirmed Treatment or plan recommended: Continue Current Treatment
[2019-07-29 08:02] LABS: Hematocrit 31.9 % (37.0-47.0); Lymphocytes # 0.9 K/mm3 (0.7-4.5); Lymphocytes % 17.8 % (10-50); Mean Corpuscular HGB Conc 27.7 g/dL (31.8-35.4); Mean Corpuscular Volume 92.6 fl (81-99); Mean Platelet Volume 7.4 fl (7.4-10.4); Monocytes # 0.5 K/mm3 (0.1-1.0); Monocytes % 9.7 % (1.7-9.3); Neutrophils # 3.6 K/mm3 (1.8-7.8); Neutrophils % 71.8 % (37.0-80.0); Red Blood Count 3.44 M/mm3 (4.20-5.40)
--- NOTE | 2019-07-29 17:26 | Electrocardiograph Report ---
APPROVED REPORT Exam: Resting ECG HR:104 bpm ECG Measurements Heart Rate 104 AXES IA 174 P 72 QRSd 82 QRS -30 QT 358 T100 QTc 470 <Conclusion> Sinus tachycardia Left axis deviation Low voltage QRS Poor R Wave Progression Abnormal ECG Electronically signed by : Colt Aguirre, 07/29/2019 17:26:20
--- NOTE | 2019-07-30 07:12 | Progress Note ---
Internal Medicine - PN: Subj *Date: 07/30/19 *Time: 07:08 Interval history: Patient has no new complaints this morning. Regarding shortness of breath she feels like it has improved although she is not at baseline. Patient had a diarrhea panel performed yesterday which shows both enteropathogenic E. coli and C. difficile. Nursing staff reports to me that since patient's stool that was tested she has not had other loose stools. Earlier this morning her aerobic blood culture from admission turn positive for E. coli that is ESBL positive. Patient denies abdominal pain. Exam Vital signs and Labs for Last 24 Hours: Temp Pulse Resp BP Pulse Ox 98.3 F 78 16 137/83 94 L 07/30/19 04:00 07/30/19 06:13 07/30/19 04:00 07/30/19 04:00 07/30/19 06:13 Laboratory Results - last 24 hr 07/28/19 09:55: Lactate 0.4 07/29/19 06:38: WBC 5.0, RBC 3.44 L, Hgb 9.0 L D, Hct 31.9 L, MCV 92.6, MCH 25.6 L, MCHC 27.7 L, RDW 16.5, Plt Count 182, MPV 7.4, Neut % (Auto) 71.8, Lymph % (Auto) 17.8, [place] % (Auto) 9.7 H, Eos % (Auto) 0.4, Baso % (Auto) 0.3, Neut # (Auto) 3.6, Lymph # (Auto) 0.9, [place] # (Auto) 0.5, Eos # (Auto) 0.0, Baso # (Auto) 0.0 07/29/19 06:38: Sodium 141, Potassium 4.5, Chloride 108 H, Carbon Dioxide 30, Anion Gap 7.5, BUN 34 H, Creatinine 2.56 H, Estimated Creat Clear 31, Estimated GFR 19 L*, Est GFR ( Amer) 23 L, Glucose 97, Calcium 7.9 L 07/29/19 08:14: Stl Aeromonas (PCR) Not detected, Stl C. cayetanensis PCR Not detected, Stool Rotavirus (PCR) Not detected, Stl Adenov F 40/41 PCR Not detected, Stool Astrovirus (PCR) Not detected, Stool Campylobacter PCR Not detected, Stl C.difficile Tox PCR Detected A, Stool Cryptosporidium PCR Not detected, Stl E.coli Shiga Tox PCR Not detected, Stool E coli O157 PCR Not detected, Stl Enterotoxigenic E PCR Not detected, Stool EPEC (PCR) Detected A, Stool EAEC (PCR) Not detected, Stl E. histolytica PCR Not detected, Stool Giardia Lamblia PCR Not detected, Stool Salmonella PCR Not detected, Stool Sapovirus (PCR) Not detected, Stl P. shigelloides PCR Not detected, Stl Shigella/EIEC PCR Not detected, St Y.enterocolitica PCR Not detected, Stool Vibrio (PCR) Not detected, Stl Vibrio cholerae PCR Not detected, Stl Norovirus GI/GII PCR Not detected 07/29/19 11:50: POC Glucose 154 H 07/29/19 17:00: POC Glucose 150 H 07/29/19 20:33: POC Glucose 157 H 07/30/19 06:04: POC Glucose 172 H I & O for Last 24 hours: Intake & Output 07/27/19 07/28/19 07/29/19 07/30/19 11:59 11:59 11:59 11:59 Intake Total 718 / 718 480 / 480 Output Total 300 / 300 350 / 350 Balance 418 / 418 130 / 130 Weight 199 lb 202 lb 7 oz 205 lb 4 oz Microbiology Reports for the Last 24 Hours: Microbiology 07/28/19 09:55 Blood Blood Culture - Preliminary Escherichia coli Narrative: Patient awakens easily this morning. She shows no signs of distress. Oropharynx is moist. Neck is without lymphadenopathy. Lungs have end expiratory high-pitched wheezes. Heart has an irregular rate and rhythm. Abdomen is soft with mild distention from ascites. Assessment and Plan (1) E coli bacteremia Current visit: Yes Status: Acute Category: Medical Code(s): R78.81 - Bacteremia Start Invanz 1 g daily. Patient will need this antibiotic until August 04 which would complete a 7-day course. Patient should be in acute admit. (2) Acute diastolic (congestive) heart failure Current visit: Yes Status: Acute Category: Medical Code(s): I50.31 - Acute diastolic (congestive) heart failure Follow-up chest x-ray did not show any significant congestive heart failure yesterday. Patient will be given additional IV Lasix today. Continue to monitor renal function (3) C. difficile diarrhea Current visit: Yes Status: Acute Category: Medical Code(s): A04.72 - Enterocolitis due to Clostridium difficile, not specified as recurrent Patient was given vancomycin yesterday which immediately caused a burning sensation in her stomach. She has been transition to oral metronidazole. This is making the patient nauseous. We will continue metronidazole at this time. (4) Bronchospasm, acute Current visit: Yes Status: Acute Category: Medical Code(s): J98.01 - Acute bronchospasm Continue IV steroids and duo nebs. Increase ambulation. 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 Category: Medical Code(s): D86.9 - Sarcoidosis, unspecified (9) Kidney disease, chronic, stage IV (GFR 15-29 ml/min) Current visit: No Status: Chronic Category: Medical Code(s): N18.4 - Chronic kidney disease, stage 4 (severe) (10) Pleural effusion associated with hepatic disorder Current visit: No Status: Acute Category: Medical Code(s): K76.9 - Liver disease, unspecified; J91.8 - Pleural effusion in other conditions classified elsewhere (11) Cirrhosis of liver with ascites Current visit: No Status: Chronic Qualifiers: Hepatic cirrhosis type: unspecified hepatic cirrhosis Qualified Code(s): K74.60 - Unspecified cirrhosis of liver; R18.8 - Other ascites Category: Medical Code(s): K74.60 - Unspecified cirrhosis of liver; R18.8 - Other ascites (12) Anemia due to blood loss Current visit: No Status: Resolved Category: Medical Code(s): D50.0 - Iron deficiency anemia secondary to blood loss (chronic)
[2019-07-30 07:17] LABS: Eosinophils % 0.1 % (0.1-12.0); Hematocrit 31.2 % (37.0-47.0); Hemoglobin 8.8 g/dL (12.2-16.2); Lymphocytes # 0.6 K/mm3 (0.7-4.5); Lymphocytes % 12.6 % (10-50); Mean Corpuscular HGB Conc 28.1 g/dL (31.8-35.4); Mean Corpuscular Volume 92.9 fl (81-99); Mean Platelet Volume 7.9 fl (7.4-10.4); Monocytes # 0.2 K/mm3 (0.1-1.0); Monocytes % 3.3 % (1.7-9.3); Neutrophils # 3.7 K/mm3 (1.8-7.8); Neutrophils % 83.9 % (37.0-80.0); Platelet Count 176 K/mm3 (142-424); Red Blood Count 3.36 M/mm3 (4.20-5.40); Red Cell Distribution Width 16.3 % (11.5-17.5); White Blood Count 4.5 K/mm3 (4.8-10.8)
[2019-07-30 07:22] LABS: Anion Gap 10.1 mEq/L (5-15); Calcium 7.8 mg/dL (8.5-10.1)
[2019-07-31 07:05] LABS: Basophils % 0.1 % (0.1-2.0); Eosinophils % 0.1 % (0.1-12.0); Hematocrit 29.4 % (37.0-47.0); Hemoglobin 8.8 g/dL (12.2-16.2); Lymphocytes # 0.6 K/mm3 (0.7-4.5); Lymphocytes % 13.9 % (10-50); Mean Corpuscular HGB Conc 29.9 g/dL (31.8-35.4); Mean Corpuscular Volume 92.1 fl (81-99); Mean Platelet Volume 7.6 fl (7.4-10.4); Monocytes # 0.2 K/mm3 (0.1-1.0); Monocytes % 4.8 % (1.7-9.3); Neutrophils # 3.4 K/mm3 (1.8-7.8); Neutrophils % 81.1 % (37.0-80.0); Platelet Count 206 K/mm3 (142-424); Red Blood Count 3.19 M/mm3 (4.20-5.40); Red Cell Distribution Width 16.3 % (11.5-17.5); White Blood Count 4.1 K/mm3 (4.8-10.8)
--- NOTE | 2019-07-31 07:17 | Progress Note ---
Internal Medicine - PN: Subj *Date: 07/31/19 *Time: 07:14 Interval history: Patient had no new problems yesterday. She does report a couple of loose stools over the last 24 hours. Urine output has been hard to monitor and is believed to be very low, almost nil. Patient denies abdominal pain. Overnight she developed some wheezing. Exam Vital signs and Labs for Last 24 Hours: Temp Pulse Resp BP Pulse Ox 98.6 F 88 22 148/92 H 89 L 07/31/19 04:00 07/31/19 05:40 07/31/19 04:00 07/31/19 04:00 07/31/19 05:40 Laboratory Results - last 24 hr 07/29/19 08:14: Stl C.difficile Tox PCR Detected A 07/30/19 06:44: WBC 4.5 L, RBC 3.36 L, Hgb 8.8 L, Hct 31.2 L, MCV 92.9, MCH 26.1 L, MCHC 28.1 L, RDW 16.3, Plt Count 176, MPV 7.9, Neut % (Auto) 83.9 H, Lymph % (Auto) 12.6, [place] % (Auto) 3.3, Eos % (Auto) 0.1, Baso % (Auto) 0.0 L, Neut # (Auto) 3.7, Lymph # (Auto) 0.6 L, [place] # (Auto) 0.2, Eos # (Auto) 0.0, Baso # (Auto) 0.0 07/30/19 06:44: Sodium 140, Potassium 5.1, Chloride 107, Carbon Dioxide 28, Anion Gap 10.1, BUN 38 H, Creatinine 2.75 H, Estimated Creat Clear 30, Estimated GFR 17 L*, Est GFR ( Amer) 21 L, Glucose 185 H, Calcium 7.8 L 07/30/19 16:58: POC Glucose 187 H 07/30/19 20:30: POC Glucose 175 H 07/31/19 05:42: POC Glucose 159 H I & O for Last 24 hours: Intake & Output 07/28/19 07/29/19 07/30/19 07/31/19 11:59 11:59 11:59 11:59 Intake Total 718 / 718 840 / 840 Output Total 300 / 300 350 / 350 Balance 418 / 418 490 / 490 Weight 199 lb 202 lb 7 oz 205 lb 4 oz 205 lb 2 oz Microbiology Reports for the Last 24 Hours: Microbiology 07/28/19 17:35 Blood Blood Culture - Preliminary NO GROWTH AFTER 48 HOURS 07/28/19 09:55 Blood Blood Culture - Preliminary Escherichia coli Narrative: Patient is sitting up in chair this morning. She shows no signs of respiratory distress. Nasal cannula is in place. Lungs have expiratory wheezes. Heart has a regular rate and rhythm. Abdomen is soft with some upper abdominal distention Assessment and Plan (1) E coli bacteremia Current visit: Yes Status: Acute Category: Medical Code(s): R78.81 - Bacteremia Continue daily Invanz (2) Acute diastolic (congestive) heart failure Current visit: Yes Status: Acute Category: Medical Code(s): I50.31 - Acute diastolic (congestive) heart failure (3) C. difficile diarrhea Current visit: Yes Status: Acute Category: Medical Code(s): A04.72 - Enterocolitis due to Clostridium difficile, not specified as recurrent Continue oral metronidazole (4) Bronchospasm, acute Current visit: Yes Status: Acute Category: Medical Code(s): J98.01 - Acute bronchospasm Continue Solu-Medrol and duo nebs. 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 Category: Medical Code(s): D86.9 - Sarcoidosis, unspecified (9) Kidney disease, chronic, stage IV (GFR 15-29 ml/min) Current visit: No Status: Chronic Category: Medical Code(s): N18.4 - Chronic kidney disease, stage 4 (severe) (10) Pleural effusion associated with hepatic disorder Current visit: No Status: Resolved Category: Medical Code(s): K76.9 - Liver disease, unspecified; J91.8 - Pleural effusion in other conditions classified elsewhere (11) Cirrhosis of liver with ascites Current visit: No Status: Chronic Qualifiers: Hepatic cirrhosis type: unspecified hepatic cirrhosis Qualified Code(s): K74.60 - Unspecified cirrhosis of liver; R18.8 - Other ascites Category: Medical Code(s): K74.60 - Unspecified cirrhosis of liver; R18.8 - Other ascites (12) Anemia due to blood loss Current visit: No Status: Resolved Category: Medical Code(s): D50.0 - Iron deficiency anemia secondary to blood loss (chronic)
[2019-07-31 07:18] LABS: Anion Gap 7.2 mEq/L (5-15)
--- NOTE | 2019-08-01 07:12 | Progress Note ---
Internal Medicine - PN: Subj *Date: 08/01/19 *Time: 07:10 Interval history: Patient believes she is feeling a little bit better. She is noticing less shortness of breath at rest although still has some mild dyspnea with exertion. Yesterday I started the patient on low rate of IV fluids of normal saline at 50 mL's per hour. Patient has begun producing urine again. Exam Vital signs and Labs for Last 24 Hours: Temp Pulse Resp BP Pulse Ox 98.4 F 105 H 18 160/70 H 94 L 08/01/19 04:00 08/01/19 04:00 08/01/19 04:00 08/01/19 04:00 08/01/19 04:00 Laboratory Results - last 24 hr 07/30/19 11:40: POC Glucose 176 H 07/31/19 06:47: WBC 4.1 L, RBC 3.19 L, Hgb 8.8 L, Hct 29.4 L, MCV 92.1, MCH 27.6, MCHC 29.9 L, RDW 16.3, Plt Count 206, MPV 7.6, Neut % (Auto) 81.1 H, Lymph % (Auto) 13.9, [place] % (Auto) 4.8, Eos % (Auto) 0.1, Baso % (Auto) 0.1, Neut # (Auto) 3.4, Lymph # (Auto) 0.6 L, [place] # (Auto) 0.2, Eos # (Auto) 0.0, Baso # (Auto) 0.0 07/31/19 06:47: Sodium 139, Potassium 5.2 H, Chloride 107, Carbon Dioxide 30, Anion Gap 7.2, BUN 51 H D, Creatinine 3.08 H, Estimated Creat Clear 26, Estimated GFR 15 L*, Est GFR ( Amer) 18 L*, Glucose 163 H, Calcium 8.0 L 07/31/19 11:38: POC Glucose 166 H 07/31/19 16:38: POC Glucose 170 H 07/31/19 21:01: POC Glucose 168 H 08/01/19 05:39: POC Glucose 149 H I & O for Last 24 hours: Intake & Output 07/29/19 07/30/19 07/31/19 08/01/19 11:59 11:59 11:59 11:59 Intake Total 718 / 718 840 / 840 360 / 360 1481 / 1481 Output Total 300 / 300 350 / 350 60 / 60 250 / 250 Balance 418 / 418 490 / 490 300 / 300 1231 / 1231 Weight 202 lb 7 oz 205 lb 4 oz 205 lb 2 oz 205 lb 2 oz Narrative: Patient is in no distress. When I entered the room she was not wearing oxygen in her sleep. This was reapplied when she awakened. Patient has upper airway congestion that clears with cough. Lungs this morning have no wheezes after patient is able to clear sputum. Heart has a regular rate and rhythm. Abdomen is soft, obese with ascites Assessment and Plan (1) E coli bacteremia Current visit: Yes Status: Acute Category: Medical Code(s): R78.81 - Bacteremia (2) Acute diastolic (congestive) heart failure Current visit: Yes Status: Acute Category: Medical Code(s): I50.31 - Acute diastolic (congestive) heart failure (3) C. 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 Category: Medical Code(s): D86.9 - Sarcoidosis, unspecified (9) Kidney disease, chronic, stage IV (GFR 15-29 ml/min) Current visit: No Status: Chronic Category: Medical Code(s): N18.4 - Chronic kidney disease, stage 4 (severe) (10) Pleural effusion associated with hepatic disorder Current visit: No Status: Resolved Category: Medical Code(s): K76.9 - Liver disease, unspecified; J91.8 - Pleural effusion in other conditions classified elsewhere (11) Cirrhosis of liver with ascites Current visit: No Status: Chronic Qualifiers: Hepatic cirrhosis type: unspecified hepatic cirrhosis Qualified Code(s): K74.60 - Unspecified cirrhosis of liver; R18.8 - Other ascites Category: Medical Code(s): K74.60 - Unspecified cirrhosis of liver; R18.8 - Other ascites (12) Anemia due to blood loss Current visit: No Status: Resolved Category: Medical Code(s): D50.0 - Iron deficiency anemia secondary to blood loss (chronic) - Assessment and plan all Dx Assessment and Plan for all problems:: 1. Await BMP, CBC this morning. For now continue low rate of IV fluids. 2. Increase ambulation and continue use of incentive spirometer
[2019-08-01 07:15] LABS: Anion Gap 10.3 mEq/L (5-15); Calcium 7.9 mg/dL (8.5-10.1)
[2019-08-01 07:22] LABS: Basophils % 0.1 % (0.1-2.0); Eosinophils % 0.7 % (0.1-12.0); Hematocrit 27.5 % (37.0-47.0); Lymphocytes # 0.4 K/mm3 (0.7-4.5); Lymphocytes % 13.5 % (10-50); Mean Corpuscular HGB Conc 28.8 g/dL (31.8-35.4); Mean Corpuscular Volume 91.8 fl (81-99); Mean Platelet Volume 7.6 fl (7.4-10.4); Monocytes # 0.1 K/mm3 (0.1-1.0); Monocytes % 4.2 % (1.7-9.3); Neutrophils # 2.2 K/mm3 (1.8-7.8); Neutrophils % 81.4 % (37.0-80.0); Platelet Count 186 K/mm3 (142-424); Red Blood Count 2.99 M/mm3 (4.20-5.40); Red Cell Distribution Width 16.5 % (11.5-17.5); White Blood Count 2.7 K/mm3 (4.8-10.8)
[2019-08-01 08:04] LABS: Hemoglobin 7.9 g/dL (12.2-16.2)
[2019-08-01 15:55] LABS: Hemoglobin 9.3 g/dL (12.2-16.2)
--- NOTE | 2019-08-02 07:21 | Progress Note ---
Internal Medicine - PN: Subj *Date: 08/02/19 *Time: 07:20 Interval history: Patient has no new complaints this morning. She feels like she is getting a little better each day. She received 1 unit of packed red blood cells yesterday with posttransfusion hemoglobin of 9.3. Her weight has remained stable. Exam Vital signs and Labs for Last 24 Hours: Temp Pulse Resp BP Pulse Ox 97.5 F L 75 20 145/91 H 99 08/02/19 04:00 08/02/19 04:00 08/02/19 04:00 08/02/19 04:00 08/02/19 04:00 Laboratory Results - last 24 hr 08/01/19 06:30: WBC 2.7 L D, RBC 2.99 L, Hgb 7.9 L*, Hct 27.5 L, MCV 91.8, MCH 26.5 L, MCHC 28.8 L, RDW 16.5, Plt Count 186, MPV 7.6, Neut % (Auto) 81.4 H, Lymph % (Auto) 13.5, [place] % (Auto) 4.2, Eos % (Auto) 0.7, Baso % (Auto) 0.1, Neut # (Auto) 2.2, Lymph # (Auto) 0.4 L, [place] # (Auto) 0.1, Eos # (Auto) 0.0, [place] # (Auto) 0.0 08/01/19 06:30: Sodium 140, Potassium 5.3 H, Chloride 107, Carbon Dioxide 28, Anion Gap 10.3, BUN 57 H, Creatinine 3.45 H, Estimated Creat Clear 24, Estimated GFR 13 L*, Est GFR ( Amer) 16 L*, Glucose 162 H, Calcium 7.9 L 08/01/19 09:40: Blood Type B Positive, Antibody Screen Negative, Crossmatch (AHG) See Detail 08/01/19 11:08: POC Glucose 151 H 08/01/19 13:42: Hgb 9.3 L D, Hct 32.0 L 08/01/19 16:43: POC Glucose 200 H 08/01/19 20:52: POC Glucose 179 H I & O for Last 24 hours: Intake & Output 10/15/19 10/16/19 10/17/19 10/18/19 11:59 11:59 11:59 11:59 Intake Total 840 / 840 360 / 360 1841 / 1841 850 / 850 Output Total 350 / 350 60 / 60 250 / 250 120 / 120 Balance 490 / 490 300 / 300 1591 / 1591 730 / 730 Weight 205 lb 4 oz 205 lb 2 oz 205 lb 2 oz 205 lb 2 oz Narrative: Patient is in no distress. Lungs are clear this morning. Heart has a regular rate and rhythm. Abdomen is soft and obese with ascites Assessment and Plan (1) E coli bacteremia Current visit: Yes Status: Acute Category: Medical Code(s): R78.81 - Bacteremia (2) Acute diastolic (congestive) heart failure Current visit: Yes Status: Acute Category: Medical Code(s): I50.31 - Acute diastolic (congestive) heart failure (3) C. 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 Category: Medical Code(s): D86.9 - Sarcoidosis, unspecified (9) Kidney disease, chronic, stage IV (GFR 15-29 ml/min) Current visit: No Status: Chronic Category: Medical Code(s): N18.4 - Chronic kidney disease, stage 4 (severe) (10) Pleural effusion associated with hepatic disorder Current visit: No Status: Resolved Category: Medical Code(s): K76.9 - Liver disease, unspecified; J91.8 - Pleural effusion in other conditions classified elsewhere (11) Cirrhosis of liver with ascites Current visit: No Status: Chronic Qualifiers: Hepatic cirrhosis type: unspecified hepatic cirrhosis Qualified Code(s): K74.60 - Unspecified cirrhosis of liver; R18.8 - Other ascites Category: Medical Code(s): K74.60 - Unspecified cirrhosis of liver; R18.8 - Other ascites (12) Anemia due to blood loss Current visit: No Status: Resolved Category: Medical Code(s): D50.0 - Iron deficiency anemia secondary to blood loss (chronic) - Assessment and plan all Dx Assessment and Plan for all problems:: Continue IV antibiotics. Continue PT. Await labs this morning
[2019-08-02 07:40] LABS: Basophils % 0.6 % (0.1-2.0); Eosinophils % 0.5 % (0.1-12.0); Hematocrit 31.8 % (37.0-47.0); Hemoglobin 9.5 g/dL (12.2-16.2); Lymphocytes # 0.3 K/mm3 (0.7-4.5); Lymphocytes % 9.5 % (10-50); Mean Corpuscular HGB Conc 29.8 g/dL (31.8-35.4); Mean Corpuscular Volume 93.6 fl (81-99); Mean Platelet Volume 9.4 fl (7.4-10.4); Monocytes # 0.1 K/mm3 (0.1-1.0); Monocytes % 3.3 % (1.7-9.3); Neutrophils # 2.4 K/mm3 (1.8-7.8); Platelet Count 140 K/mm3 (142-424); Red Cell Distribution Width 15.4 % (11.5-17.5); White Blood Count 2.8 K/mm3 (4.8-10.8)
[2019-08-02 08:41] LABS: Lymphocytes % 9 % (10-50); Monocytes % 3 % (2-9); Neutrophils % 86 % (42-76); Total Cells Counted 100
[2019-08-02 13:27] LABS: Anion Gap 10.9 mEq/L (5-15); Calcium 7.5 mg/dL (8.5-10.1)
[2019-08-03 07:20] LABS: Basophils % 0.4 % (0.1-2.0); Eosinophils % 0.3 % (0.1-12.0); Hematocrit 31.3 % (37.0-47.0); Lymphocytes # 0.3 K/mm3 (0.7-4.5); Mean Corpuscular HGB Conc 28.9 g/dL (31.8-35.4); Mean Corpuscular Volume 94.1 fl (81-99); Mean Platelet Volume 9.1 fl (7.4-10.4); Monocytes # 0.1 K/mm3 (0.1-1.0); Monocytes % 3.1 % (1.7-9.3); Neutrophils # 2.2 K/mm3 (1.8-7.8); Neutrophils % 85.2 % (37.0-80.0); Platelet Count 160 K/mm3 (142-424); Red Blood Count 3.32 M/mm3 (4.20-5.40); Red Cell Distribution Width 15.2 % (11.5-17.5); White Blood Count 2.6 K/mm3 (4.8-10.8)
[2019-08-03 07:27] LABS: Anion Gap 11.1 mEq/L (5-15)
[2019-08-03 07:28] LABS: Calcium 7.5 mg/dL (8.5-10.1)
[2019-08-03 08:03] LABS: Hypochromasia 2+; Lymphocytes % 8 % (10-50); Monocytes % 3 % (2-9); Neutrophils % 89 % (42-76); Total Cells Counted 100
--- NOTE | 2019-08-03 08:10 | Progress Note ---
Internal Medicine - PN: Subj *Date: 08/03/19 *Time: 08:07 Interval history: Patient reports she is feeling better. She continues to have a cough that is productive of clear sputum. Her appetite is poor. Her abdominal pain has improved. Exam Vital signs and Labs for Last 24 Hours: Temp Pulse Resp BP Pulse Ox 97.5 F L 76 20 120/84 97 08/03/19 04:00 08/03/19 06:35 08/03/19 04:00 08/03/19 04:00 08/03/19 06:35 Laboratory Results - last 24 hr 08/02/19 06:25: Total Counted 100, Neutrophils % (Manual) 86 H, Band Neutrophils % 2.0, Lymphocytes % (Manual) 9 L, Monocytes % (Manual) 3, Platelet Estimate Slight decrease, RBC Morphology Not Reportable 08/02/19 08:43: Sodium 140, Potassium 5.9 H, Chloride 107, Carbon Dioxide 28, Anion Gap 10.9, BUN 65 H, Creatinine 3.77 H, Estimated Creat Clear 22, Estimated GFR 12 L*, Est GFR ( Amer) 15 L*, Glucose 179 H, Calcium 7.5 L 08/02/19 11:15: POC Glucose 143 H 08/02/19 16:10: POC Glucose 198 H 08/02/19 21:13: POC Glucose 175 H 08/03/19 06:33: POC Glucose 133 H 08/03/19 06:35: WBC 2.6 L, RBC 3.32 L, Hgb 9.0 L, Hct 31.3 L, MCV 94.1, MCH 27.2, MCHC 28.9 L, RDW 15.2, Plt Count 160, MPV 9.1, Neut % (Auto) 85.2 H, Lymph % (Auto) 11.0, [place] % (Auto) 3.1, Eos % (Auto) 0.3, Baso % (Auto) 0.4, Neut # (Auto) 2.2, Lymph # (Auto) 0.3 L, [place] # (Auto) 0.1, Eos # (Auto) 0.0, Baso # (Auto) 0.0, Total Counted 100, Neutrophils % (Manual) 89 H, Lymphocytes % (Manual) 8 L, Monocytes % (Manual) 3, Platelet Estimate Normal, Hypochromasia 2+ 08/03/19 06:35: Sodium 142, Potassium 5.1, Chloride 108 H, Carbon Dioxide 28, Anion Gap 11.1, BUN 71 H, Creatinine 4.21 H, Estimated Creat Clear 20, Estimated GFR 11 L*, Est GFR ( Amer) 13 L*, Glucose 141 H D, Calcium 7.5 L I & O for Last 24 hours: Intake & Output 07/31/19 08/01/19 08/02/19 08/03/19 11:59 11:59 11:59 11:59 Intake Total 360 / 360 1841 / 1841 1350 / 1350 720 / 720 Output Total 60 / 60 250 / 250 570 / 570 730 / 730 Balance 300 / 300 1591 / 1591 780 / 780 -10 / -10 Weight 205 lb 2 oz 205 lb 2 oz 205 lb 2 oz 212 lb 1 oz Microbiology Reports for the Last 24 Hours: Microbiology 07/28/19 17:35 Blood Blood Culture - Final NO GROWTH AFTER 5 DAYS Narrative: Patient appears at baseline. Oropharynx is moist. Lungs have some rhonchi that clear with cough anteriorly. Heart has a regular rate and rhythm. Abdomen is obese and soft with ascites. Assessment and Plan (1) E coli bacteremia Current visit: Yes Status: Acute Category: Medical Code(s): R78.81 - Bacteremia (2) Acute diastolic (congestive) heart failure Current visit: Yes Status: Acute Category: Medical Code(s): I50.31 - Acute diastolic (congestive) heart failure (3) C. 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 Category: Medical Code(s): D86.9 - Sarcoidosis, unspecified (9) Kidney disease, chronic, stage IV (GFR 15-29 ml/min) Current visit: No Status: Chronic Category: Medical Code(s): N18.4 - Chronic kidney disease, stage 4 (severe) (10) Pleural effusion associated with hepatic disorder Current visit: No Status: Resolved Category: Medical Code(s): K76.9 - Liver disease, unspecified; J91.8 - Pleural effusion in other conditions classified elsewhere (11) Cirrhosis of liver with ascites Current visit: No Status: Chronic Qualifiers: Hepatic cirrhosis type: unspecified hepatic cirrhosis Qualified Code(s): K74.60 - Unspecified cirrhosis of liver; R18.8 - Other ascites Category: Medical Code(s): K74.60 - Unspecified cirrhosis of liver; R18.8 - Other ascites (12) Anemia due to blood loss Current visit: No Status: Resolved Category: Medical Code(s): D50.0 - Iron deficiency anemia secondary to blood loss (chronic) (13) Acute kidney failure Current visit: Yes Status: Acute Category: Medical Code(s): N17.9 - Acute kidney failure, unspecified - Assessment and plan all Dx Assessment and Plan for all problems:: 1. Continue IV Invanz 2. Continue duo nebs and I will transition patient to prednisone today 3. Repeat CBC, BMP, LFTs in a.m. to monitor for worsening anemia and renal function
[2019-08-03 08:40] LABS: Bilirubin,Direct 0.1 mg/dL (0.0-0.2); Bilirubin,Indirect 0.2 mg/dL (0.0-0.9); Bilirubin,Total 0.3 mg/dL (0.2-1.0)
[2019-08-03 08:41] LABS: Albumin Level 2.1 gm/dL (3.4-5.0); Total Protein,Serum 5.8 gm/dL (6.4-8.2)
[2019-08-04 07:01] LABS: Basophils % 0.5 % (0.1-2.0); Eosinophils % 0.1 % (0.1-12.0); Hemoglobin 8.3 g/dL (12.2-16.2); Lymphocytes # 0.2 K/mm3 (0.7-4.5); Lymphocytes % 5.5 % (10-50); Mean Corpuscular HGB Conc 28.2 g/dL (31.8-35.4); Mean Corpuscular Volume 94.3 fl (81-99); Mean Platelet Volume 9.2 fl (7.4-10.4); Monocytes # 0.3 K/mm3 (0.1-1.0); Monocytes % 7.2 % (1.7-9.3); Neutrophils # 3.4 K/mm3 (1.8-7.8); Neutrophils % 86.7 % (37.0-80.0); Platelet Count 173 K/mm3 (142-424); Red Blood Count 3.13 M/mm3 (4.20-5.40); Red Cell Distribution Width 15.7 % (11.5-17.5); White Blood Count 3.9 K/mm3 (4.8-10.8)
[2019-08-04 07:09] LABS: Hematocrit 29.5 % (37.0-47.0)
[2019-08-04 07:13] LABS: INR 1.37 (0.9-1.1)
[2019-08-04 07:15] LABS: Anion Gap 11.7 mEq/L (5-15); Calcium 7.3 mg/dL (8.5-10.1)
[2019-08-04 07:19] LABS: Hypochromasia 3+; Lymphocytes % 9 % (10-50); Monocytes % 1 % (2-9); Neutrophils % 81 % (42-76); Total Cells Counted 100
--- NOTE | 2019-08-04 08:02 | Progress Note ---
Internal Medicine - PN: Subj *Date: 08/04/19 *Time: 07:56 Interval history: Patient admits she does not feel too well this morning. She does not have any specific complaints. She denies shortness of breath while seated although nursing staff is reported that patient gets dyspneic with ambulation. Patient had a difficult time participating with physical therapy yesterday as well. She tells me whenever she lays down she will be awoken by heartburn. Exam Vital signs and Labs for Last 24 Hours: Temp Pulse Resp BP Pulse Ox 97.7 F 76 18 124/76 99 08/04/19 04:00 08/04/19 05:24 08/04/19 04:00 08/04/19 04:00 08/04/19 05:24 Laboratory Results - last 24 hr 08/03/19 06:35: Total Counted 100, Neutrophils % (Manual) 89 H, Lymphocytes % (Manual) 8 L, Monocytes % (Manual) 3, Platelet Estimate Normal, Hypochromasia 2+ 08/03/19 06:35: Total Bilirubin 0.3, Direct Bilirubin 0.1, Indirect Bilirubin 0.2, AST 6 L, ALT 1 L, Alkaline Phosphatase 179 H, Total Protein 5.8 L, Albumin 2.1 L 08/03/19 11:14: POC Glucose 141 H 08/03/19 16:21: POC Glucose 192 H 08/03/19 20:06: POC Glucose 174 H 08/04/19 06:11: POC Glucose 134 H 08/04/19 06:25: WBC 3.9 L D, RBC 3.13 L, Hgb 8.3 L, Hct 29.5 L, MCV 94.3, MCH 26.6 L, MCHC 28.2 L, RDW 15.7, Plt Count 173, MPV 9.2, Neut % (Auto) 86.7 H, Lymph % (Auto) 5.5 L, [place] % (Auto) 7.2, Eos % (Auto) 0.1, Baso % (Auto) 0.5, Neut # (Auto) 3.4, Lymph # (Auto) 0.2 L, [place] # (Auto) 0.3, Eos # (Auto) 0.0, Baso # (Auto) 0.0, Total Counted 100, Neutrophils % (Manual) 81 H, Band Neutrophils % 9.0 H, Lymphocytes % (Manual) 9 L, Monocytes % (Manual) 1 L, Platelet Estimate Normal, Hypochromasia 3+ 08/04/19 06:25: Sodium 142, Potassium 4.7, Chloride 108 H, Carbon Dioxide 27, Anion Gap 11.7, BUN 75 H, Creatinine 4.41 H, Estimated Creat Clear 19, Estimated GFR 10 L*, Est GFR ( Amer) 12 L*, Glucose 138 H, Calcium 7.3 L 08/04/19 06:25: PT 14.0 H, INR 1.37 H I & O for Last 24 hours: Intake & Output 08/01/19 08/02/19 08/03/19 08/04/19 11:59 11:59 11:59 11:59 Intake Total 1841 / 1841 1350 / 1350 840 / 840 823 / 823 Output Total 250 / 250 570 / 570 410 / 410 100 / 100 Balance 1591 / 1591 780 / 780 430 / 430 723 / 723 Weight 205 lb 2 oz 205 lb 2 oz 212 lb 1 oz 212 lb Narrative: Patient is in no distress and is actually sitting in the recliner without her oxygen on. She shows no signs of respiratory distress. Oropharynx is moist. Lungs this morning are clear anteriorly and diminished at the bases. Heart has a regular rate and rhythm. Abdomen is soft but distended with ascites. Extremities are warm to the touch. She has no pedal edema. She has trace dependent edema on the posterior lower extremities Assessment and Plan (1) E coli bacteremia Current visit: Yes Status: Acute Category: Medical Code(s): R78.81 - Bacteremia (2) Acute kidney failure Current visit: Yes Status: Acute Category: Medical Code(s): N17.9 - Acute kidney failure, unspecified (3) Acute diastolic (congestive) heart failure Current visit: Yes Status: Acute Category: Medical Code(s): I50.31 - Acute diastolic (congestive) heart failure (4) C. 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 Category: Medical Code(s): D86.0 - Sarcoidosis of lung (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 Category: Medical Code(s): D86.9 - Sarcoidosis, unspecified (10) Kidney disease, chronic, stage IV (GFR 15-29 ml/min) Current visit: No Status: Chronic Category: Medical Code(s): N18.4 - Chronic kidney disease, stage 4 (severe) (11) Pleural effusion associated with hepatic disorder Current visit: No Status: Resolved Category: Medical Code(s): K76.9 - Liver disease, unspecified; J91.8 - Pleural effusion in other conditions classified elsewhere (12) Cirrhosis of liver with ascites Current visit: No Status: Chronic Qualifiers: Hepatic cirrhosis type: unspecified hepatic cirrhosis Qualified Code(s): K74.60 - Unspecified cirrhosis of liver; R18.8 - Other ascites Category: Medical Code(s): K74.60 - Unspecified cirrhosis of liver; R18.8 - Other ascites (13) Anemia due to blood loss Current visit: No Status: Resolved Category: Medical Code(s): D50.0 - Iron deficiency anemia secondary to blood loss (chronic) - Assessment and plan all Dx Assessment and Plan for all problems:: 1. Today patient will finish her week of Invanz. 2. Continue metronidazole for an additional 3 days for treatment of C. difficile 3. Transfuse 1 unit of packed red blood cells. 4. Add metoclopramide for GERD 5. Regarding patient's acute kidney injury and underlying portal hypertension give patient 50 mg of albumin. Start clonidine 0.1 mg 3 times daily 6. Start oral prednisone for wheezing
--- NOTE | 2019-08-04 11:07 | Progress Note ---
Internal Medicine - PN: Subj *Date: 08/04/19 *Time: 11:07 Exam Vital signs and Labs for Last 24 Hours: Temp Pulse Resp BP Pulse Ox 98.2 F 70 16 127/87 100 08/04/19 11:00 08/04/19 11:00 08/04/19 11:00 08/04/19 11:00 08/04/19 11:00 Laboratory Results - last 24 hr 08/03/19 11:14: POC Glucose 141 H 08/03/19 16:21: POC Glucose 192 H 08/03/19 20:06: POC Glucose 174 H 08/04/19 06:11: POC Glucose 134 H 08/04/19 06:25: WBC 3.9 L D, RBC 3.13 L, Hgb 8.3 L, Hct 29.5 L, MCV 94.3, MCH 26.6 L, MCHC 28.2 L, RDW 15.7, Plt Count 173, MPV 9.2, Neut % (Auto) 86.7 H, Lymph % (Auto) 5.5 L, [place] % (Auto) 7.2, Eos % (Auto) 0.1, Baso % (Auto) 0.5, Neut # (Auto) 3.4, Lymph # (Auto) 0.2 L, [place] # (Auto) 0.3, Eos # (Auto) 0.0, Baso # (Auto) 0.0, Total Counted 100, Neutrophils % (Manual) 81 H, Band Neutroph ils % 9.0 H, Lymphocytes % (Manual) 9 L, Monocytes % (Manual) 1 L, Platelet Estimate Normal, Hypochromasia 3+ 08/04/19 06:25: Sodium 142, Potassium 4.7, Chloride 108 H, Carbon Dioxide 27, Anion Gap 11.7, BUN 75 H, Creatinine 4.41 H, Estimated Creat Clear 19, Estimated GFR 10 L*, Est GFR ( Amer) 12 L*, Glucose 138 H, Calcium 7.3 L 08/04/19 06:25: PT 14.0 H, INR 1.37 H 08/04/19 08:15: Blood Type B Positive, Antibody Screen Negative, Crossmatch (AHG) See Detail I & O for Last 24 hours: Intake & Output 08/01/19 08/02/19 08/03/19 08/04/19 23:59 23:59 23:59 23:59 Intake Total 1732 / 1732 1220 / 1220 240 / 240 943 / 943 Output Total 220 / 220 860 / 860 100 / 100 Balance 1512 / 1512 360 / 360 140 / 140 943 / 943 Weight 93.043 kg 93.043 kg 96.19 kg 96.162 kg Assessment and Plan (1) E coli bacteremia Current visit: Yes Status: Acute Category: Medical Code(s): R78.81 - Bacteremia (2) Acute kidney failure Current visit: Yes Status: Acute Category: Medical Code(s): N17.9 - Acute kidney failure, unspecified (3) Acute diastolic (congestive) heart failure Current visit: Yes Status: Acute Category: Medical Code(s): I50.31 - Acute diastolic (congestive) heart failure (4) C. 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 Category: Medical Code(s): D86.0 - Sarcoidosis of lung (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 Category: Medical Code(s): D86.9 - Sarcoidosis, unspecified (10) Kidney disease, chronic, stage IV (GFR 15-29 ml/min) Current visit: No Status: Chronic Category: Medical Code(s): N18.4 - Chronic kidney disease, stage 4 (severe) (11) Pleural effusion associated with hepatic disorder Current visit: No Status: Resolved Category: Medical Code(s): K76.9 - Liver disease, unspecified; J91.8 - Pleural effusion in other conditions classified elsewhere (12) Cirrhosis of liver with ascites Current visit: No Status: Chronic Qualifiers: Hepatic cirrhosis type: unspecified hepatic cirrhosis Qualified Code(s): K74.60 - Unspecified cirrhosis of liver; R18.8 - Other ascites Category: Medical Code(s): K74.60 - Unspecified cirrhosis of liver; R18.8 - Other ascites (13) Anemia due to blood loss Current visit: No Status: Resolved Category: Medical Code(s): D50.0 - Iron deficiency anemia secondary to blood loss (chronic) The patient's infection will respond to the chosen ABx?: Yes Is the patient receiving the right drug, dose, and route?: Yes Could a more targeted ABx be ordered?: No
[2019-08-04 17:10] LABS: Hematocrit 28.7 % (37.0-47.0)
[2019-08-05 06:43] LABS: Basophils % 0.4 % (0.1-2.0); Eosinophils % 0.8 % (0.1-12.0); Hematocrit 29.6 % (37.0-47.0); Hemoglobin 8.8 g/dL (12.2-16.2); Lymphocytes # 0.2 K/mm3 (0.7-4.5); Lymphocytes % 6.2 % (10-50); Mean Corpuscular HGB Conc 29.7 g/dL (31.8-35.4); Mean Corpuscular Volume 92.4 fl (81-99); Mean Platelet Volume 9.1 fl (7.4-10.4); Monocytes # 0.3 K/mm3 (0.1-1.0); Monocytes % 7.1 % (1.7-9.3); Neutrophils # 3.1 K/mm3 (1.8-7.8); Neutrophils % 85.6 % (37.0-80.0); Platelet Count 157 K/mm3 (142-424); Red Blood Count 3.21 M/mm3 (4.20-5.40); Red Cell Distribution Width 15.6 % (11.5-17.5); White Blood Count 3.6 K/mm3 (4.8-10.8)
[2019-08-05 07:05] LABS: Anion Gap 12.5 mEq/L (5-15); Calcium 7.4 mg/dL (8.5-10.1)
--- NOTE | 2019-08-05 07:10 | Progress Note ---
Internal Medicine - PN: Subj *Date: 08/05/19 *Time: 07:07 Interval history: Patient has no complaints this morning and admits she feels a little bit better. She had a few more loose stools yesterday and this coincides with initiation of metoclopramide therapy for her heartburn. She had no detected fevers or chills. She did receive her last dose of Invanz yesterday. She denies shortness of breath this morning. She received 1 unit of packed red blood cells yesterday with posttransfusion hemoglobin of 9. Exam Vital signs and Labs for Last 24 Hours: Temp Pulse Resp BP Pulse Ox 97.9 F 70 18 110/72 96 08/05/19 04:00 08/05/19 06:48 08/05/19 04:00 08/05/19 04:00 08/05/19 06:48 Laboratory Results - last 24 hr 08/03/19 16:21: POC Glucose 192 H 08/03/19 20:06: POC Glucose 174 H 08/04/19 06:25: WBC 3.9 L D, RBC 3.13 L, Hgb 8.3 L, Hct 29.5 L, MCV 94.3, MCH 26.6 L, MCHC 28.2 L, RDW 15.7, Plt Count 173, MPV 9.2, Neut % (Auto) 86.7 H, Lymph % (Auto) 5.5 L, [place] % (Auto) 7.2, Eos % (Auto) 0.1, Baso % (Auto) 0.5, Neut # (Auto) 3.4, Lymph # (Auto) 0.2 L, [place] # (Auto) 0.3, Eos # (Auto) 0.0, Baso # (Auto) 0.0, Total Counted 100, Neutrophils % (Manual) 81 H, Band Neutrophils % 9.0 H, Lymphocytes % (Manual) 9 L, Monocytes % (Manual) 1 L, Platelet Estimate Normal, Hypochromasia 3+ 08/04/19 06:25: Sodium 142, Potassium 4.7, Chloride 108 H, Carbon Dioxide 27, Anion Gap 11.7, BUN 75 H, Creatinine 4.41 H, Estimated Creat Clear 19, Estimated GFR 10 L*, Est GFR ( Amer) 12 L*, Glucose 138 H, Calcium 7.3 L 08/04/19 06:25: PT 14.0 H, INR 1.37 H 08/04/19 08:15: Blood Type B Positive, Antibody Screen Negative, Crossmatch (AHG) See Detail 08/04/19 11:54: POC Glucose 99 08/04/19 16:45: Hgb 9.0 L, Hct 28.7 L 08/04/19 17:03: POC Glucose 233 H 08/04/19 21:15: POC Glucose 157 H 08/05/19 06:10: POC Glucose 112 H 08/05/19 06:28: WBC 3.6 L, RBC 3.21 L, Hgb 8.8 L, Hct 29.6 L, MCV 92.4, MCH 27.4, MCHC 29.7 L, RDW 15.6, Plt Count 157, MPV 9.1, Neut % (Auto) 85.6 H, Lymph % (Auto) 6.2 L, [place] % (Auto) 7.1, Eos % (Auto) 0.8, Baso % (Auto) 0.4, Neut # (Auto) 3.1, Lymph # (Auto) 0.2 L, [place] # (Auto) 0.3, Eos # (Auto) 0.0, Baso # (Auto) 0.0 I & O for Last 24 hours: Intake & Output 08/02/19 08/03/19 08/04/19 08/05/19 11:59 11:59 11:59 11:59 Intake Total 1350 / 1350 840 / 840 1063 / 1063 715 / 715 Output Total 570 / 570 410 / 410 100 / 100 30 / 30 Balance 780 / 780 430 / 430 963 / 963 685 / 685 Weight 205 lb 2 oz 212 lb 1 oz 212 lb 212 lb Narrative: Patient is resting comfortably, reclined in her hospital bed. Oropharynx is moist. Lungs are clear anteriorly in the upper lung fournier with diminished breath sounds at the bases. Heart has a regular rate and rhythm. Abdomen is soft and enlarged from ascites. There is no tenderness. Extremities have trace subcutaneous edema on the posterior aspect of the thighs and lower legs Assessment and Plan (1) E coli bacteremia Current visit: Yes Status: Resolved Category: Medical Code(s): R78.81 - Bacteremia (2) Acute kidney failure Current visit: Yes Status: Acute Category: Medical Code(s): N17.9 - Acute kidney failure, unspecified Await BMP this morning. Patient has been oliguric although p.o. intake is also remained quite low. She is third spacing into her abdominal ascites. She will need follow-up with her promotions representative Dr. Tracy. (3) Acute diastolic (congestive) heart failure Current visit: Yes Status: Resolved Category: Medical Code(s): I50.31 - Acute diastolic (congestive) heart failure (4) C. 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 Khanna (10) Kidney disease, chronic, stage IV (GFR 15-29 ml/min) Current visit: No Status: Chronic Category: Medical Code(s): N18.4 - Chronic kidney disease, stage 4 (severe) (11) Pleural effusion associated with hepatic disorder Current visit: No Status: Resolved Category: Medical Code(s): K76.9 - Liver disease, unspecified; J91.8 - Pleural effusion in other conditions classified elsewhere (12) Cirrhosis of liver with ascites Current visit: No Status: Chronic Qualifiers: Hepatic cirrhosis type: unspecified hepatic cirrhosis Qualified Code(s): K74.60 - Unspecified cirrhosis of liver; R18.8 - Other ascites Category: Medical Code(s): K74.60 - Unspecified cirrhosis of liver; R18.8 - Other ascites (13) Anemia due to blood loss Current visit: No Status: Chronic Category: Medical Code(s): D50.0 - Iron deficiency anemia secondary to blood loss (chronic) Patient will be given an additional unit of packed red blood cells today. Possible discharge this afternoon.
--- NOTE | 2019-08-05 07:13 | Discharge Summary ---
General - General Admission date:: 07/28/19 Discharge date: 08/05/19 HPI HPI: 68-year-old female with multiple medical problems presented to the emergency department with less than 24 hours of shortness of breath. Patient reports on Monday she began to develop some shortness of breath and just overall malaise. She wears oxygen at home but her shortness of breath persisted into Monday morning when she presented to the emergency department. Work-up in the ER was consistent with patient being fluid overloaded and she was admitted with diagnosis of acute CHF with preserved ejection fraction. Patient was given Lasix 20 mg in the emergency department in the morning. Response is unknown as patient could not comply with accurate measurements of urine outputs due to incontinence. She is given additional dose of Lasix 60 mg intravenously yest evening. This morning patient reports mild improvement in shortness of breath. Her cough was productive of clear phlegm. She denies fevers or chills at home. CT scan of the abdomen and pelvis performed upon admission did identify pleural effusions in the base of the lungs Hospital Course Hospital Course: Patient was admitted with diagnosis of CHF and given 20 mg of Lasix in the emergency department. Patient had a mild response to this. She was given an additional 60 mg of Lasix on the evening of admission and had a mild response to that of 300 units of urine. The following morning repeat PA and lateral chest x-ray was performed which showed no signs of pleural effusion nor fluid overload. Patient was given an additional 60 mg of Lasix at that time and had no response. Oxygen sats remain in the mid to high 90s as long as patient kept her nasal cannula in place for supplemental oxygen use. She did have dyspnea with being supine and preferred to stay reclined in both her hospital bed and recliner. Echocardiogram was not repeated as she had had an echocardiogram at the end of May which showed normal ejection fraction. Patient also has known pulmonary artery hypertension. Patient was also noted to have wheezing and rhonchi on lung exam. She has pulmonary sarcoidosis. Patient was started on duo nebs 4 times a day which would transiently relief wheezing. Patient was started on intravenous Solu- Medrol and was continued on this for 5 days before transitioning to oral steroids. On the day of discharge patient's lungs were free of wheezing and rhonchi but diminished at the bases. Incentive spirometer was ordered and encouraged during hospitalization. Patient remained dyspneic on exertion which is essentially her baseline. On the day following admission her anaerobic blood culture returned positive for E. coli that was ESBL positive. Patient was started on Invanz for her E. coli bacteremia. She finished a 7-day course of Invanz while hospitalized. 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 Patient had been admitted to our facility less than a week prior for anemia and underwent EGD which showed some linear esophageal erosions but no active bleeding. She is scheduled for repeat endoscopy on August [address] Khanna of the [facility] gastroenterology/hepatology service. Patient was continued on her Protonix while hospitalized. She did not have any significant abdominal pain but does have ascites. Ascites remained relatively stable during hospitalization. Patient has stage IV chronic kidney disease admission creatinine was 2.27. Creatinine slowly increased while patient was hospitalized despite discontinuation of her spironolactone and Bumex. Patient's creatinine did not respond to IV fluids nor did respond to transfusions of blood. At discharge her creatinine was 4.8 although from her renal function she remained relatively asymptomatic. I do believe this may be part of hepatorenal syndrome. Patient has long-standing anemia and her hemoglobin slowly trickle down while hospitalized that led to transfusions on 3 separate occasions of 1 unit of packed red blood cells. Her last unit was given the day of discharge and she will continue outpatient CBCs for monitoring of her H&H Patient complained of diarrhea a day after admission and stool studies revealed C. difficile. Patient was started on oral vancomycin first but this caused a burning sensation in her stomach so she was transitioned to oral metronidazole. Objective Vital signs: Temp Pulse Resp BP Pulse Ox 97.9 F 70 18 110/72 96 08/05/19 04:00 08/05/19 06:48 08/05/19 04:00 08/05/19 04:00 08/05/19 06:48 Results Labs on day of discharge: Labs from last 24 hours 08/05/19 08/05/19 08/05/19 06:28 06:28 06:10 WBC 3.6 L RBC 3.21 L Hgb 8.8 L Hct 29.6 L MCV 92.4 MCH 27.4 MCHC 29.7 L RDW 15.6 Plt Count 157 MPV 9.1 Neut % (Auto) 85.6 H Lymph % (Auto) 6.2 L Ray % (Auto) 7.1 Eos % (Auto) 0.8 Baso % (Auto) 0.4 Neut # (Auto) 3.1 Lymph # (Auto) 0.2 L Ray # (Auto) 0.3 Eos # (Auto) 0.0 Baso # (Auto) 0.0 Total Counted Neutrophils % (Manual) Band Neutrophils % Lymphocytes % (Manual) Monocytes % (Manual) Platelet Estimate Hypochromasia PT INR Sodium 142 Potassium 4.5 Chloride 108 H Carbon Dioxide 26 Anion Gap 12.5 BUN 78 H Creatinine 4.86 H Estimated Creat Clear 17 Estimated GFR 9 L* Est GFR ( Amer) 11 L* Glucose 117 H POC Glucose 112 H Calcium 7.4 L Blood Type Antibody Screen Crossmatch ([facility]) 08/04/19 08/04/19 08/04/19 21:15 17:03 16:45 WBC RBC Hgb 9.0 L Hct 28.7 L MCV MCH MCHC RDW Plt Count MPV Neut % (Auto) Lymph % (Auto) Ray % (Auto) Eos % (Auto) Baso % (Auto) Neut # (Auto) Lymph # (Auto) Ray # (Auto) Eos # (Auto) Baso # (Auto) Total Counted Neutrophils % (Manual) Band Neutrophils % Lymphocytes % (Manual) Monocytes % (Manual) Platelet Estimate Hypochromasia PT INR Sodium Potassium Chloride Carbon Dioxide Anion Gap BUN Creatinine Estimated Creat Clear Estimated GFR Est GFR ( Amer) Glucose POC Glucose 157 H 233 H Calcium Blood Type Antibody Screen Crossmatch ([facility]) 08/04/19 08/04/19 08/04/19 11:54 08:15 06:25 WBC RBC Hgb Hct MCV MCH MCHC RDW Plt Count MPV Neut % (Auto) Lymph % (Auto) Ray % (Auto) Eos % (Auto) Baso % (Auto) Neut # (Auto) Lymph # (Auto) Ray # (Auto) Eos # (Auto) Baso # (Auto) Total Counted Neutrophils % (Manual) Band Neutrophils % Lymphocytes % (Manual) Monocytes % (Manual) Platelet Estimate Hypochromasia PT 14.0 H INR 1.37 H Sodium Potassium Chloride Carbon Dioxide Anion Gap BUN Creatinine Estimated Creat Clear Estimated GFR Est GFR ( Amer) Glucose POC Glucose 99 Calcium Blood Type B Positive Antibody Screen Negative Crossmatch ([facility]) See Detail 08/04/19 08/04/19 06:25 06:25 WBC RBC Hgb Hct MCV MCH MCHC RDW Plt Count MPV Neut % (Auto) Lymph % (Auto) Ray % (Auto) Eos % (Auto) Baso % (Auto) Neut # (Auto) Lymph # (Auto) Ray # (Auto) Eos # (Auto) Baso # (Auto) Total Counted 100 Neutrophils % (Manual) 81 H Band Neutrophils % 9.0 H Lymphocytes % (Manual) 9 L Monocytes % (Manual) 1 L Platelet Estimate Normal Hypochromasia 3+ PT INR Sodium 142 Potassium 4.7 Chloride 108 H Carbon Dioxide 27 Anion Gap 11.7 BUN 75 H Creatinine 4.41 H Estimated Creat Clear 19 Estimated GFR 10 L* Est GFR ( Amer) 12 L* Glucose 138 H POC Glucose Calcium 7.3 L Blood Type Antibody Screen Crossmatch ([facility]) Preliminary micro results at discharge 07/28/19 09:55 Blood Culture - Preliminary Blood Escherichia coli DS: Diagnosis - Discharge Diagnosis (1) E coli bacteremia Status: Resolved (2) Acute kidney failure Status: Acute (3) Acute diastolic (congestive) heart failure Status: Resolved (4) C. difficile diarrhea Status: Acute (5) Bronchospasm, acute Status: Resolved (6) Pulmonary artery hypertension Status: Chronic (7) BMI 32.0-32.9,adult Status: Acute (8) Sarcoidosis of lung Status: Chronic (9) Sarcoidosis of digestive system Status: Chronic (10) Kidney disease, chronic, stage IV (GFR 15-29 ml/min) Status: Chronic (11) Cirrhosis of liver with ascites Status: Chronic (12) Anemia due to blood loss Status: Chronic Discharge Plan - Patient Discharge Instructions ACTIVITY: Continue current activity DIET: continue same diet Patient Instructions: Heart Failure, Antibiotic-associated Colitis -- C difficile, DI for Antibiotic -- associated Colitis -- C difficile - Follow up Plan Follow up with: Rafi Albrecht MD [Staff Physician] - 2 weeks Disposition: Home, Self-Usp Medications: Home Medications Medication Instructions Recorded Confirmed Type Atorvastatin Calcium [Atorvastatin 20 mg PO DAILY 06/03/19 07/28/19 History 20mg Tab] Bumetanide 2 mg PO DAILY 06/03/19 07/28/19 History Carvedilol [Carvedilol 25mg Tab] 25 mg PO BID 06/03/19 07/28/19 History Folic Acid [Folic Acid 1mg tablet] 1 mg PO DAILY 06/04/19 07/28/19 History Insulin Glargine,Hum.rec.anlog 6 unit SQ HS 06/04/19 07/28/19 History [Lantus Insulin 100units/mL 10mL vial] Spironolactone [Spironolactone 25 mg PO BID 06/04/19 07/28/19 History 25mg Tablet] Hydralazine HCl 50 mg PO TID 07/24/19 07/28/19 History Ferrous Sulfate [Iron] 65 mg PO DAILY 07/28/19 07/28/19 History Potassium 99 mg PO DAILY 07/28/19 07/28/19 History Sucralfate [Sucralfate 1gm 1 gm PO ACHS 07/28/19 07/28/19 History Tab] Omeprazole 20 mg PO BID 07/29/19 07/29/19 History metroNIDAZOLE [metroNIDAZOLE 500mg 500 mg PO TID #12 tab 08/05/19 Rx Tablet] Prescriptions/Medication Reconciliation: New metroNIDAZOLE [metroNIDAZOLE 500mg Tablet] 500 mg PO TID #12 tab Continued Carvedilol [Carvedilol 25mg Tab] 25 mg PO BID Atorvastatin Calcium [Atorvastatin 20mg Tab] 20 mg PO DAILY Insulin Glargine,Hum.rec.anlog [Lantus Insulin 100units/mL 10mL vial] 6 unit SQ HS Spironolactone [Spironolactone 25mg Tablet] 25 mg PO BID Hydralazine HCl 50 mg PO TID Potassium 99 mg PO DAILY Sucralfate [Sucralfate 1gm Tab] 1 gm PO ACHS Omeprazole 20 mg PO BID Folic Acid [Folic Acid 1mg tablet] 1 mg PO DAILY Ferrous Sulfate [Iron] 65 mg PO DAILY Discontinued Bumetanide 2 mg PO DAILY - Problem Reconciliation Problems Reviewed?: Yes
[2019-08-05 07:33] LABS: Eosinophils % 1 % (0-3); Lymphocytes % 10 % (10-50); Monocytes % 7 % (2-9); Neutrophils % 78 % (42-76); Total Cells Counted 100
[2019-08-05 07:34] LABS: RBC Morphology Normal
[2019-08-05 14:46] LABS: Hematocrit 34.5 % (37.0-47.0)
[2019-08-05 14:47] LABS: Hemoglobin 10.6 g/dL (12.2-16.2)
== END 2019-08-05 15:42 | disposition home or self-care (01) | DRG 291 ==
LOC: ER 08:55 → 2ND 08:55
PROVIDERS: ADMIT Emergency Medicine; ATTEND Family Medicine
CPT/HCPCS: 36415; 71010; 71020; 71045; 71046; 74176; 80048; 80053; 80076; 82140; 82803; 82962; 83605; 83690; 83880; 84484; 85007; 85014; 85018; 85025; 85610; 86850; 87040; 87077; 87186; 87507; 93005; 94640; 94760; 94761; 97110; 97116; 97162; 97530; 99284; G0378; J1335; J2405; J3370; P9016; P9047

== ENCOUNTER 2020-02-05 09:37 | Emergency (ER) | payer MEDICARE, SELFPAY ==
[2020-02-05 09:38] VITALS: BP 119/70; PULSE 87; RESP 20; TEMP 37.3; O2SAT 92; BMI 25.7
--- NOTE | 2020-02-05 10:01 | CA_ITS ---
APPROVED REPORT Right Upper Extremity Venous Study for DVT. [employer] Mason: KEILY MataT Indications Upper Extremity Edema: Right PT HAD PORT PLACED ANAIS ON THE RIGHT, PT ALSO HAS A DIALYSIS FISTULA IN THE RIGHT UPPER ARM THAT HAS STARTED BLEEDING, THERE IS A LARGE DRESSING OVER THE UPPER RT ARM COVERING THE FISTULA, PT HAS SWELLING AND BRUSIING RUE Vein Imaging IJV (R): Normal phasic flow is seen. Normal flow, augmentation and compression is seen. No evidence of Deep Vein Thrombosis. No abnormalities are demonstrated. SCV (R): Normal phasic flow is seen. Normal flow, augmentation and compression is seen. No evidence of Deep Vein Thrombosis. No abnormalities are demonstrated. Axillary (R): Normal phasic flow is seen. Normal flow, augmentation and compression is seen. No evidence of Deep Vein Thrombosis. No abnormalities are demonstrated. Brachial (R): Spontaneous Basilic (R): Spontaneous Cephalic (R): Compressible Radial (R): Compressible Ulnar (R): Compressible Conclusion Study suggests no obvious DVT of the right upper extremity. Study suggests no SVT of the right upper extremity. ? hematoma in the proximal posterior right upper extremity. Limited study r/t dressing right upper arm. Electronically signed by : Micha Coronel MD 02/05/2020 16:35:03
[2020-02-05 10:05] LABS: Basophils # 0.1 K/mm3 (0-0.2); Basophils % 1.9 % (0.1-2.0); Eosinophils # 0.4 K/mm3 (0.0-0.4); Eosinophils % 8.1 % (0.1-12.0); Hematocrit 32.9 % (37.0-47.0); Hemoglobin 9.8 g/dL (12.2-16.2); Lymphocytes # 1.2 K/mm3 (0.7-4.5); Mean Corpuscular HGB Conc 29.7 g/dL (31.8-35.4); Mean Corpuscular Hemoglobin 26.3 pg (27.0-31.2); Mean Corpuscular Volume 88.3 fl (81-99); Mean Platelet Volume 8.8 fl (7.4-10.4); Monocytes # 0.7 K/mm3 (0.1-1.0); Monocytes % 13.7 % (1.7-9.3); Neutrophils # 2.7 K/mm3 (1.8-7.8); Neutrophils % 53.4 % (37.0-80.0); Platelet Count 245 K/mm3 (142-424); Red Blood Count 3.72 M/mm3 (4.20-5.40); Red Cell Distribution Width 17.5 % (11.5-17.5)
--- NOTE | 2020-02-05 10:24 | PC.NURSE ---
pt daughter from [facility] called asking about pt and asking if she had mask and gloves if not could we give her some. gloves were provided to pt.
--- NOTE | 2020-02-05 10:40 | PC.NURSE ---
vascular lab at bedside
--- NOTE | 2020-02-05 11:16 | HMH.EDEXTP ---
ED Disposition Clinical Impression: Edema Disposition: Home, Self-Care Condition on Discharge: Good Additional Instructions: Please follow-up with primary care if condition worsens please get a arm sleeve compression sock for your arm. Referrals: Aldo Juarez MD [Primary Care Provider] - - Critical Care Critical Care Time: No Attestation: On 02/05/20, the high probability of a clinically significant, sudden or life threatening deterioration of the following system(s) required my full and direct attention, intervention and personal management. The time I documented below is in addition to time spent performing reported procedures but includes the following listed in this critical care notation. Medical Decision Making - Medical Records Medical records reviewed: Yes: I reviewed the patient's medical records. - Rudy Inquiry Pt receiving controlled substance: No Vital Signs: 02/05/20 09:38 Temperature 99.1 F Temperature Source Oral Pulse Rate [Right] 87 Respiratory Rate 20 Blood Pressure [Right Arm] 119/70 Blood Pressure Mean [Right Arm] 86 02 Sat by Pulse Oximetry 92 L - Lab Data Lab results reviewed: Yes: I reviewed the patient's lab results. Lab Results 02/05/20 09:50: WBC 5.0, RBC 3.72 L, Hgb 9.8 L, Hct 32.9 L, MCV 88.3, MCH 26.3 L, MCHC 29.7 L, RDW 17.5, Plt Count 245, MPV 8.8, Neut % (Auto) 53.4, Lymph % (Auto) 23.0, [place] % (Auto) 13.7 H, Eos % (Auto) 8.1, Baso % (Auto) 1.9, Neut # (Auto) 2.7, Lymph # (Auto) 1.2, [place] # (Auto) 0.7, Eos # (Auto) 0.4, Baso # (Auto) 0.1 Result diagrams: 02/05/20 09:50 - US Data US Images: Upper Extremity Preliminary Findings: Normal/NAD Extremity Problem HPI - General Chief complaint: Extremity Problem,Nontraumatic Stated complaint: BLEEDING FROM SUGERY ON R ARM Time Seen by Provider: 02/05/20 11:11 Mode of Arrival: Ambulatory Limitations: No Limitations Description of Symptoms (Recalled from ER Triage Doc. by RN): PT PRESENTS WITH BLEEDING TO HER RIGHT ARM AFTER HAVING A AV FISTULIA PLACED AT [facility] BY DR ALTAMIRANO ON MONDAY. PT STATES IT IS SWOLLEN AND PAINFUL. PT ALSO STATES HER BP HAS BEEN ON THE LOWER SIDE TODAY. PT DENIES COUGH, FEVER, OR SOA. - History of Present Illness HPI Narrative: 69-year-old female presents to the ED with right arm swelling. She recently had a fistula placed and since then she is developed some swelling and some pain in the upper arm and it is extended down into the lower arm just below the elbow. She states that the pain feels like a pressure-like sensation and describes it as 2 out of 10. Denies really any exacerbating factors or alleviating factors. Patient states the arm is not warm or red. She denies any recent malaise. She denies any recent fever shakes or chills. - Related Data Home Medications Medication Instructions Recorded Confirmed carvediloL [Carvedilol 25mg Tab] 25 mg PO BID 06/03/19 11/10/19 Folic Acid [Folic Acid 1mg tablet] 1 mg PO DAILY 06/04/19 11/10/19 Insulin Glargine,Hum.rec.anlog 6 unit SQ HS 06/04/19 11/10/19 [Lantus Insulin 100units/mL 10mL vial] Ferrous Sulfate [Iron] 65 mg PO DAILY 07/28/19 11/10/19 Omeprazole 20 mg PO BID 07/29/19 11/10/19 Acetaminophen [Acetaminophen 325mg 325 mg PO Q4H PRN 11/10/19 11/10/19 tab] Ammonium Lactate [Amlactin] 57 gm TP BID 11/10/19 11/10/19 Melatonin/Pyridoxine HCl (B6) 1 each PO HS 11/10/19 11/10/19 [Melatonin 3 mg Tablet] Menthol/Zinc Oxide [Calmoseptine 71 gm TP DAILY 11/10/19 11/10/19 Ointment] Allergies Allergy/AdvReac Type Severity Reaction Status Date / Time No Known Allergies Allergy Verified 07/23/19 20:41 [facility] History - Hepatitis A Screen Drug use history?: No High risk sexual behaviors?: No History of sexually transmitted infection?: No Currently employed?: No Childcare worker?: No Do you have indoor plumbing?: Yes Do you have electricity?: Yes Attestation statement:: This patient has been screened
--- NOTE | 2020-02-05 11:28 | PC.NURSE ---
[facility] CALLED TO GET A LYMPHODEMA SLEEVE PER MD REQUEST AND THEY ADVISED THAT PT IS GOING TO COME EVAL PT PRIOR TO SLEEVE ADMINISTRATION.
--- NOTE | 2020-02-05 11:30 | PC.NURSE ---
PT, CARINE CUEVA, AT BEDSIDE AT THIS TIME
[2020-02-05 11:33] VITALS: BP 112/85; PULSE 87; RESP 20; TEMP 36.8; O2SAT 98
--- NOTE | 2020-02-05 11:36 | PC.NURSE ---
Alta from lymphedema clinic came and placed Edema wear size small on the pt.
== END 2020-02-05 11:51 | disposition home or self-care (01) ==
PROVIDERS: Emergency Provider Family Medicine; PCP Family Medicine
DX: T82.838A Hemorrhage due to vascular prosthetic devices, implants and grafts, initial encounter (principal); N18.4 Chronic kidney disease, stage 4 (severe); I48.91 Unspecified atrial fibrillation; E11.9 Type 2 diabetes mellitus without complications; I10 Essential (primary) hypertension; E78.5 Hyperlipidemia, unspecified; E03.9 Hypothyroidism, unspecified; D86.0 Sarcoidosis of lung; D86.9 Sarcoidosis, unspecified; Z99.81 Dependence on supplemental oxygen; Z95.0 Presence of cardiac pacemaker; Z79.4 Long term (current) use of insulin
CPT/HCPCS: 85025; 93971; 99282

== ENCOUNTER → 2020-05-05 10:15 | Outpatient (CLI) | payer MEDICARE, SELFPAY ==
[2020-05-05 10:57] LABS: INR 1.27 (0.9-1.1); Prothrombin Time 12.9 seconds (9.4-11.8)
[2020-05-05 11:12] LABS: Chloride 98 mmol/L (98-107); Sodium 138 mmol/L (136-145)
[2020-05-05 11:14] LABS: Blood Urea Nitrogen 26 mg/dl (7-17); Estimated Glomerular Filt Rate 11 ml/min (>60); GFR (African American) 13 ML/MIN (>60)
[2020-05-05 11:15] LABS: Alanine Aminotransferase 16 U/L (12-78); Albumin Level 3.6 g/dl (3.5-5.0); Albumin/Globulin Ratio 1.2 (1.1-1.8); Alkaline Phosphatase 153 U/L (38-126); Aspartate Amino Transferase 25 U/L (14-36); Bilirubin,Total 1.2 mg/dl (0.2-1.3); Carbon Dioxide 31 mmol/L (22.0-30.0); Globulin 3.1 g/dL (1.3-3.2); Total Protein,Serum 6.7 g/dl (6.3-8.2)
[2020-05-05 11:16] LABS: Calcium 11.1 mg/dl (8.4-10.2); Glucose 95 mg/dl (74-100)
[2020-05-06 13:30] LABS: AFP, Tumor Marker 1.6 ng/mL (0.0-8.3)
[2020-05-07 09:38] LABS: Mitochondrial (M2) Antibody <20.0 Units (0.0-20.0)
== END ==
PROVIDERS: Visit Provider Internal Medicine Gastroenterology
DX: K74.60 Unspecified cirrhosis of liver (principal)
CPT/HCPCS: 36415; 80053; 82105; 85610; 86256

== ENCOUNTER → 2020-06-17 09:47 | Outpatient (CLI) | payer MEDICARE, SELFPAY ==
[2020-06-17 11:29] LABS: C-Reactive Protein 8.5 mg/L (0-4)
[2020-06-18 10:12] LABS: Hep A Ab, IgM Negative (Negative); Hepatitis B Surface Antigen Negative (Negative)
[2020-06-18 14:30] LABS: Hep B Surface Ab, Qual Non Reactive (.); Hepatitis B Core Antibody IgM Negative (Negative); Hepatitis C Antibody 0.7 s/co ratio (0.0-0.9)
[2020-06-18 21:19] LABS: Calcium, Ionized 7.1 mg/dL (4.5-5.6)
== END ==
DX: D86.9 Sarcoidosis, unspecified (principal)
CPT/HCPCS: 36415; 82330; 86140; 86704; 86706; 86708; 87340; 87380

== ENCOUNTER 2020-06-22 19:18 | Emergency (ER) | payer MEDICARE, SELFPAY ==
[2020-06-22 19:19] VITALS: BP 157/81; PULSE 72; RESP 20; TEMP 36.4; O2SAT 92; BMI 21.6
--- NOTE | 2020-06-22 19:41 | XR_ITS ---
PROCEDURE: XR CHEST PORTABLE CLINICAL HISTORY: cough COMPARISON: CR XR CHEST 2V from 07/29/[address] CHEST WO CON from 08/07/2019 CR XR CHEST PORTABLE from 08/07/2019 CR XR CHEST PORTABLE from 11/10/2019 FINDINGS: There is cardiomegaly without failure. Garment artifact is present from patient's bra. Bipolar pacemaker is present from left subclavian approach there is increased density in the right lower lobe consistent with pneumonia. There may be small right pleural effusion. IMPRESSION: Cardiomegaly with right lower lobe pneumonia and trace right effusion Dictated by: Micha Coronel MD 06/23/2020 04:37 Micha Coronel MD in [facility] 06/23/2020 04:37
--- NOTE | 2020-06-22 19:41 | ECG_ITS ---
APPROVED REPORT Exam: Resting ECG HR:75 bpm ECG Measurements Heart Rate 75 AXES OH 200 P 65 QRSd 98 QRS -42 QT 400 T 78 QTc 446 <Conclusion> Normal sinus rhythm Possible Left atrial enlargement Left axis deviation Left ventricular hypertrophy Abnormal ECG Electronically signed by : Rafi Nesbitt, 06/24/2020 06:25:19
[2020-06-22 19:43] VITALS: BMI 21.6
[2020-06-22 19:49] VITALS: BP 157/81; PULSE 73; RESP 20; O2SAT 93
[2020-06-22 20:06] LABS: Basophils % 0.9 % (0.1-2.0); Eosinophils # 0.1 K/mm3 (0.0-0.4); Eosinophils % 4.5 % (0.1-12.0); Hematocrit 38.8 % (37.0-47.0); Hemoglobin 12.2 g/dL (12.2-16.2); Lymphocytes # 0.6 K/mm3 (0.7-4.5); Lymphocytes % 18.7 % (10-50); Mean Corpuscular HGB Conc 31.3 g/dL (31.8-35.4); Mean Corpuscular Hemoglobin 29.1 pg (27.0-31.2); Mean Corpuscular Volume 92.9 fl (81-99); Mean Platelet Volume 8.6 fl (7.4-10.4); Monocytes # 0.3 K/mm3 (0.1-1.0); Monocytes % 10.4 % (1.7-9.3); Neutrophils # 2.1 K/mm3 (1.8-7.8); Neutrophils % 65.5 % (37.0-80.0); Platelet Count 163 K/mm3 (142-424); Red Blood Count 4.18 M/mm3 (4.20-5.40); Red Cell Distribution Width 16.5 % (11.5-17.5); White Blood Count 3.2 K/mm3 (4.8-10.8)
[2020-06-22 20:10] LABS: Chloride 99 mmol/L (98-107); Potassium 4.2 mmoL/L (3.5-5.1); Sodium 138 mmol/L (136-145)
[2020-06-22 20:12] LABS: Alanine Aminotransferase 11 U/L (12-78); Aspartate Amino Transferase 17 U/L (14-36); Blood Urea Nitrogen 25 mg/dl (7-17); Creatinine Clearance Estimated 12 mL/min (50-200); Estimated Glomerular Filt Rate 11 ml/min (>60); GFR (African American) 13 ML/MIN (>60)
[2020-06-22 20:13] LABS: Albumin/Globulin Ratio 1.2 (1.1-1.8); Alkaline Phosphatase 130 U/L (38-126); Anion Gap 11.2 mEq/L (5-15); Bilirubin,Total 1.1 mg/dl (0.2-1.3); Carbon Dioxide 32 mmol/L (22.0-30.0); Globulin 3.4 g/dL (1.3-3.2); Glucose 112 mg/dl (74-100); Total Protein,Serum 7.4 g/dl (6.3-8.2)
--- NOTE | 2020-06-22 20:13 | HMH.EDGENADL ---
ED Disposition Clinical Impression: Pneumonia Qualifiers: Pneumonia type: due to unspecified organism Laterality: right Lung location: lower lobe of lung Qualified Code(s): J18.9 - Pneumonia, unspecified organism Disposition: Home, Self-Care Condition on Discharge: Good Referrals: Aldo Juarez MD [Primary Care Provider] - - Critical Care Critical Care Time: No Attestation: On 06/22/20, the high probability of a clinically significant, sudden or life threatening deterioration of the following system(s) required my full and direct attention, intervention and personal management. The time I documented below is in addition to time spent performing reported procedures but includes the following listed in this critical care notation. Medical Decision Making - Rudy Inquiry Pt receiving controlled substance: No Vital Signs: 06/22/20 19:19 06/22/20 19:49 06/22/20 21:19 Temperature 97.5 F L Temperature Source Oral Pulse Rate Pulse Rate [Left Radial] 72 73 74 Respiratory Rate 20 20 20 Blood Pressure Blood Pressure [Left Arm] 157/81 H 157/81 H 159/88 H Blood Pressure Mean [Left Arm] 106 106 111 Blood Pressure Source Blood Pressure Source [Left Arm] Automatic Cuff Automatic Cuff Automatic Cuff Blood Pressure Position Blood Pressure Position [Left Arm] Sitting Supine Supine 02 Sat by Pulse Oximetry 92 L 93 L 93 L Oxygen Delivery Method Room Air Nasal Cannula Nasal Cannula Oxygen Flow Rate (LPM) 1 1 06/22/20 22:00 06/22/20 23:35 Temperature 97.5 F L Temperature Source Oral Pulse Rate 71 Pulse Rate [Left Radial] 71 Respiratory Rate 20 20 Blood Pressure 155/96 H Blood Pressure [Left Arm] 154/96 H Blood Pressure Mean [Left Arm] 115 Blood Pressure Source Automatic Cuff Blood Pressure Source [Left Arm] Automatic Cuff Blood Pressure Position Sitting Blood Pressure Position [Left Arm] Supine 02 Sat by Pulse Oximetry 97 Oxygen Delivery Method Nasal Cannula Nasal Cannula Oxygen Flow Rate (LPM) 1 1 - Lab Data Lab Results 06/22/20 19:47: COVID-19 PCR Not detected 06/22/20 19:55: WBC 3.2 L, RBC 4.18 L, Hgb 12.2, Hct 38.8, MCV 92.9, MCH 29.1, MCHC 31.3 L, RDW 16.5, Plt Count 163, MPV 8.6, Neut % (Auto) 65.5, Lymph % (Auto) 18.7, [place] % (Auto) 10.4 H, Eos % (Auto) 4.5, Baso % (Auto) 0.9, Neut # (Auto) 2.1, Lymph # (Auto) 0.6 L, [place] # (Auto) 0.3, Eos # (Auto) 0.1, Baso # (Auto) 0.0 06/22/20 19:55: Sodium 138, Potassium 4.2, Chloride 99, Carbon Dioxide 32 H, Anion Gap 11.2, BUN 25 H, Creatinine 4.10 H, Estimated Creat Clear 12, Estimated GFR 11 L*, Est GFR ( Amer) 13 L*, Glucose 112 H, Calcium 13.5 H*, Total Bilirubin 1.1, AST 17, ALT 11 L, Alkaline Phosphatase 130 H, Total Protein 7.4, Albumin 4.0, Globulin 3.4 H, Albumin/Globulin Ratio 1.2 06/22/20 19:55: SARS-CoV-2 IgG Ab (Rapid) Negative, SARS-CoV-2 IgM Ab (Rapid) Negative 06/22/20 19:55: Troponin I 0.03 06/22/20 20:06: Influenza Type A Ag Negative, Influenza Type B Ag Negative 06/22/20 22:31: Troponin I 0.03 Result diagrams: 06/22/20 19:55 06/22/20 19:55 Orders (Tests/Meds): ED MEDICATIONS Discontinued Medications Generic Name Dose Route Start Last Admin Trade Name Freq PRN Reason Stop Dose Admin Acetaminophen/Butalbital/Caffeine 1 each 06/22/20 21:10 06/22/20 21:11 Fiorcet Tablet PO 06/22/20 21:11 1 each ONCE ONE Administration Amoxicillin/Clavulanate Potassium 1 each 06/22/20 21:34 06/22/20 21:58 Augmentin 500mg Tablet PO 06/22/20 21:35 1 each ONCE ONE Administration Protocol Azithromycin 500 mg 06/22/20 21:34 06/22/20 21:59 Zithromax 250mg Tablet PO 06/22/20 21:35 500 mg ONCE ONE Administration Protocol Belladonna Alkaloids 60 ml 06/22/20 23:20 06/22/20 23:21 Gi Cocktail 60ml Udc PO 09/07/20 23:21 60 ml ONCE ONE Administration Medical Decision Narrative: Patient presents for URI symptoms. Patient has not had any fever, chills, cough. Examination patient
[2020-06-22 20:35] LABS: Calcium 13.5 mg/dl (8.4-10.2)
[2020-06-22 20:38] LABS: Coronavirus 19 IgG Antibody Negative (Negative); Coronavirus 19 IgM Antibody Negative (Negative)
--- NOTE | 2020-06-22 20:39 | PC.NURSE ---
notified of critical lab values
[2020-06-22 21:03] LABS: Troponin I 0.03 ng/ml (0.00-0.034)
[2020-06-22 21:19] VITALS: BP 159/88; PULSE 74; RESP 20; O2SAT 93
[2020-06-22 22:00] VITALS: BP 154/96; PULSE 71; RESP 20; O2SAT 97
[2020-06-22 23:04] LABS: Troponin I 0.03 ng/ml (0.00-0.034)
[2020-06-22 23:35] VITALS: BP 155/96; PULSE 71; RESP 20; TEMP 36.4; O2SAT 97
[2020-06-24 08:03] LABS: Covid-19 Nasal PCR Sendout Lex NOT DETECTED
== END 2020-06-22 23:40 | disposition home or self-care (01) ==
PROVIDERS: Emergency Medicine; Emergency Provider Emergency Medicine; PCP Family Medicine
DX: J18.9 Pneumonia, unspecified organism (principal); E11.9 Type 2 diabetes mellitus without complications; I48.20 Chronic atrial fibrillation, unspecified; I10 Essential (primary) hypertension; E78.5 Hyperlipidemia, unspecified; N18.4 Chronic kidney disease, stage 4 (severe); E03.9 Hypothyroidism, unspecified; Z95.0 Presence of cardiac pacemaker; Z79.4 Long term (current) use of insulin; Z79.899 Other long term (current) drug therapy; Z03.818 Encounter for observation for suspected exposure to other biological agents ruled out
CPT/HCPCS: 71045; 80053; 84484; 85025; 86328; 87275; 87276; 93005; 99284; U0004

== ENCOUNTER 2020-06-24 21:59 | Emergency (ER) | payer MEDICARE, SELFPAY ==
[2020-06-24 22:00] VITALS: BP 174/101; PULSE 77; RESP 22; TEMP 36.9; O2SAT 92; BMI 25.7
--- NOTE | 2020-06-24 22:38 | CT_ITS ---
PROCEDURE: CT HEAD/BRAIN WO CON CLINICAL INDICATION: ams Altered mental status, altered level of consciousness, confusion, disorientation COMPARISON: CT HEADWO CT head/brain wo con from 11/06/2018 TECHNIQUE: Axial images obtained. All CT scans at the facility use one or more dose reduction, viz: automated exposure control, ma/kV adjustment per patient size (including targeted exams where dose is matched to indication, i.e. head), or iterative reconstruction technique. FINDINGS: No midline shift, mass effect, intracranial hemorrhage, hydrocephalus, or extra-axial fluid collection is evident. There is generalized atrophy with hypoattenuation of the periventricular white matter consistent with microangiopathic changes. The calvarium has an unremarkable appearance. No mastoid effusion. No sinus air-fluid level. IMPRESSION: No acute intracranial finding Dictated by: Micha Coronel MD 06/25/2020 06:21 Micha Coronel MD in [facility] 06/25/2020 06:21
[2020-06-24 22:49] LABS: Basophils % 0.6 % (0.1-2.0); Chloride 99 mmol/L (98-107); Eosinophils # 0.2 K/mm3 (0.0-0.4); Eosinophils % 3.9 % (0.1-12.0); Hemoglobin 12.1 g/dL (12.2-16.2); Lymphocytes # 0.8 K/mm3 (0.7-4.5); Lymphocytes % 19.2 % (10-50); Mean Corpuscular HGB Conc 31.8 g/dL (31.8-35.4); Mean Corpuscular Volume 91.2 fl (81-99); Mean Platelet Volume 8.7 fl (7.4-10.4); Monocytes # 0.4 K/mm3 (0.1-1.0); Monocytes % 10.9 % (1.7-9.3); Neutrophils # 2.6 K/mm3 (1.8-7.8); Neutrophils % 65.4 % (37.0-80.0); Platelet Count 163 K/mm3 (142-424); Potassium 3.7 mmoL/L (3.5-5.1); Red Blood Count 4.16 M/mm3 (4.20-5.40); Red Cell Distribution Width 16.7 % (11.5-17.5); Sodium 138 mmol/L (136-145)
[2020-06-24 22:52] LABS: Alanine Aminotransferase 12 U/L (12-78); Albumin Level 3.9 g/dl (3.5-5.0); Albumin/Globulin Ratio 1.2 (1.1-1.8); Alkaline Phosphatase 128 U/L (38-126); Anion Gap 12.7 mEq/L (5-15); Aspartate Amino Transferase 21 U/L (14-36); Bilirubin,Total 1.2 mg/dl (0.2-1.3); Blood Urea Nitrogen 16 mg/dl (7-17); Carbon Dioxide 30 mmol/L (22.0-30.0); Creatinine Clearance Estimated 22 mL/min (50-200); Estimated Glomerular Filt Rate 18 ml/min (>60); GFR (African American) 21 ML/MIN (>60); Globulin 3.2 g/dL (1.3-3.2); Total Protein,Serum 7.1 g/dl (6.3-8.2)
[2020-06-24 22:53] LABS: Glucose 76 mg/dl (74-100)
[2020-06-24 22:53] LABS: POC Glucose,Bedside 63 (70-110)
[2020-06-24 23:02] LABS: Calcium 11.4 mg/dl (8.4-10.2)
[2020-06-24 23:32] LABS: Microscopic, Urine URINE MICROSCOPIC (MICROSCOPIC)
[2020-06-24 23:35] LABS: Appearance,Urine SL CLOUDY (Clear); Blood, Urine Negative (Negative); Color,Urine BROWN (Yellow); Glucose,Urine (UA) Negative (Negative); Ketones,Urine TRACE (Negative); Leukocyte Esterase,Urine Negative (Negative); Nitrate,Urine Negative (Negative); Protein,Urine 2+ (Negative); Specific Gravity, Urine >= 1.030 (1.005-1.030); Urobilinogen,Urine 0.2 EU/dl (0.2)
[2020-06-24 23:42] LABS: Bilirubin,Urine Negative (Negative)
[2020-06-24 23:49] LABS: Amorphous Sediment,Urine 1+ /lpf; Bacteria,Urine 1+ /lpf; Mucus,Urine 1+ /lpf
[2020-06-25 00:16] VITALS: BP 98/69; PULSE 74; RESP 18; O2SAT 94
--- NOTE | 2020-06-25 00:51 | HMH.EDGENADL ---
ED Disposition Clinical Impression: UTI (urinary tract infection) Qualifiers: Urinary tract infection type: acute cystitis Hematuria presence: without hematuria Qualified Code(s): N30.00 - Acute cystitis without hematuria Disposition: Home, Self-Care Condition on Discharge: Fair Instructions: DI for Urinary Tract Infection (UTI) Additional Instructions: Shows a urinary tract infection head CT as well as other labs are within normal limits, We have prescribed an antibiotic and the first dose has been given here today Prescriptions: Ciprofloxacin HCl [Ciprofloxacin 500mg Tab] 500 mg PO BID 7 Days #14 tab Transmission Status: Pending to [id number] Referrals: Rafi Albrecht MD [Primary Care Provider] - Time of Disposition: 00:59 - Critical Care Critical Care Time: No Attestation: On 06/24/20, the high probability of a clinically significant, sudden or life threatening deterioration of the following system(s) required my full and direct attention, intervention and personal management. The time I documented below is in addition to time spent performing reported procedures but includes the following listed in this critical care notation. Medical Decision Making - Medical Records Medical records reviewed: Yes: I reviewed the patient's medical records. MR Comment: 69-year-old -[place]ong[place] female who is on dialysis; she has a dialysis tomorrow; patient's daughter complains that she appeared to be confused she also had decreased p.o. intake and wanted her to be evaluated. CT of the head shows no acute findings; urinalysis does show urinary tract infection CBC and CMP are essentially normal all consistent with patient's history of dialysis plan is to give her a prescription for an antibiotic will give her first dose of antibiotic today - Rudy Inquiry Pt receiving controlled substance: No Vital Signs: 06/24/20 22:00 06/25/20 00:16 Temperature 98.4 F Temperature Source Oral Pulse Rate [Left Radial] 77 74 Respiratory Rate 22 18 Blood Pressure [Left Arm] 174/101 H 98/69 L Blood Pressure Mean [Left Arm] 125 78 Blood Pressure Source [Left Arm] Automatic Cuff Blood Pressure Position [Left Arm] Supine 02 Sat by Pulse Oximetry 92 L 94 L Oxygen Delivery Method Room Air - Lab Data Lab Results 06/24/20 22:36: WBC 4.0 L, RBC 4.16 L, Hgb 12.1 L, Hct 38.0, MCV 91.2, MCH 29.0, MCHC 31.8, RDW 16.7, Plt Count 163, MPV 8.7, Neut % (Auto) 65.4, Lymph % (Auto) 19.2, [place] % (Auto) 10.9 H, Eos % (Auto) 3.9, Baso % (Auto) 0.6, Neut # (Auto) 2.6, Lymph # (Auto) 0.8, [place] # (Auto) 0.4, Eos # (Auto) 0.2, Baso # (Auto) 0.0 06/24/20 22:36: Sodium 138, Potassium 3.7, Chloride 99, Carbon Dioxide 30, Anion Gap 12.7, BUN 16 D, Creatinine 2.70 H D, Estimated Creat Clear 22, Estimated GFR 18 L*, Est GFR ( Amer) 21 L D, Glucose 76, Calcium 11.4 H D, Total Bilirubin 1.2, AST 21, ALT 12, Alkaline Phosphatase 128 H, Total Protein 7.1, Albumin 3.9, Globulin 3.2, Albumin/Globulin Ratio 1.2 06/24/20 22:45: POC Glucose 63 L 06/24/20 23:30: Urine Color Brown, Urine Appearance Sl cloudy, Urine pH 5.0, Ur Specific [place] >= 1.030, Urine Protein 2+, Urine Glucose (UA) Negative, Urine Ketones Trace, Urine Blood Negative, Urine Nitrate Negative, Urine Bilirubin Negative, Urine Urobilinogen 0.2, Ur Leukocyte Esterase Negative, Urine WBC 3-5, Amorphous Sediment 1+, Urine Bacteria 1+, Urine Mucus 1+ Result diagrams: 06/24/20 22:36 06/24/20 22:36 Orders (Tests/Meds): ORDERS Category Date Time Status CT head/brain wo con Stat Cat Scan 06/24/20 22:38 Taken - Radiology Data #1 Image Reviewed: Yes I have reviewed radiologist's interpretation Preliminary Findings: Normal/NAD General Adult HPI - General Chief complaint: Altered Mental Status Stated complaint: confussed,weakness Time Seen by Provider: 06/24/20 23:51 Mode of Arrival: Wheelchair Source of Information: Patient, Spouse Limitations: No Limitations Descri
[2020-06-25 00:55] VITALS: BP 165/100; PULSE 79; RESP 18; TEMP 36.9; O2SAT 98
--- NOTE | 2020-06-25 01:20 | PC.NURSE ---
0100- Pt c/o nausea and CP rating 7 out 0f 10. He describes the pain as pressure in nature. 151/88 103 O2-93 RA R-20 [id number]- MD at bedside, ordering EKG and labs.
== END 2020-06-25 01:22 | disposition home or self-care (01) ==
PROVIDERS: Emergency Provider Emergency Medicine; PCP Family Medicine
DX: N30.00 Acute cystitis without hematuria (principal); N18.4 Chronic kidney disease, stage 4 (severe); Z99.2 Dependence on renal dialysis; E03.9 Hypothyroidism, unspecified; E11.9 Type 2 diabetes mellitus without complications; I48.20 Chronic atrial fibrillation, unspecified; I10 Essential (primary) hypertension; E78.5 Hyperlipidemia, unspecified; Z79.899 Other long term (current) drug therapy; D86.0 Sarcoidosis of lung
CPT/HCPCS: 70450; 80053; 81001; 82962; 85025; 99283

== ENCOUNTER 2020-06-30 19:24 | Emergency (ER) | payer MEDICARE, SELFPAY ==
[2020-06-30 19:24] VITALS: BP 136/77; PULSE 130; RESP 16; TEMP 36.9; O2SAT 95; BMI 26.6
--- NOTE | 2020-06-30 19:39 | ECG_ITS ---
APPROVED REPORT Exam: Resting ECG HR:74 bpm ECG Measurements Heart Rate 74 AXES [place] 236 P 19 QRSd 100 QRS -63 QT 416 T 57 QTc 461 <Conclusion> Electronic atrial pacemaker Left anterior fascicular block Anterior infarct, age undetermined Abnormal ECG Electronically signed by : Rafi Nesbitt, 07/03/2020 07:31:18
--- NOTE | 2020-06-30 19:43 | XR_ITS ---
PROCEDURE: XR CHEST 2V CLINICAL HISTORY: SOA/nausea COMPARISON: CT CT CHEST WO CON from 08/07/2019 CR XR CHEST PORTABLE from 08/07/2019 CR XR CHEST PORTABLE from 11/10/2019 CR XR CHEST PORTABLE from 06/22/2020 FINDINGS: There is cardiomegaly with pulmonary venous congestion consistent with CHF. Bipolar pacemaker remains in place. The right lower lobe pneumonia has shown some improvement compared to the previous exam. There is some minimal residual density in the right perihilar region which may be related to some residual pneumonia. Small right pleural effusion noted. Surgical clips are present in the right arm medially. There is mild wedging of T11 not significantly changed. IMPRESSION: 1. Mild CHF. 2. Improvement in right lower lobe pneumonia with some minimal residual airspace disease in the right perihilar region which may be related to some residual pneumonia or edema. Dictated by: Micha Coronel MD 07/01/2020 06:29 Micha Coronel MD in [place] 07/01/2020 06:29
--- NOTE | 2020-06-30 19:45 | CT_ITS ---
PROCEDURE: CT ABDOMEN PELVIS WO CON CLINICAL INDICATION: abd pain Epigastric pain with nausea COMPARISON: CT CT ABDOMEN PELVIS WO CON from 07/28/2019 TECHNIQUE: Axial images obtained with sagittal and coronal reformats. All CT scans at the facility use one or more dose reduction, viz: automated exposure control, ma/kV adjustment per patient size (including targeted exams where dose is matched to indication, i.e. head), or iterative reconstruction technique. FINDINGS: LOWER THORAX: There is cardiomegaly. Pacemaker device is present. Coronary artery calcifications are present. There is a small right pleural effusion and trace left-sided effusion. ABDOMEN & PELVIS: Cirrhotic appearing liver. There is some coarse calcification in the inferior aspect of the junction of the right left hepatic lobe. There is mild splenomegaly at 13 cm. Collateral vessels are present within the mesenteries and retroperitoneum. The portal vein is enlarged at 2 cm. This there is diffuse vascular calcification. Moderate-sized hiatal hernia noted. There is thickening of the wall the stomach which is nonspecific. The adrenal glands and pancreas have an unremarkable appearance. There is mild dilatation of the infrarenal abdominal aorta as well as dilatation of the common iliacs. Common iliacs measure up to 1.5 cm and the immediate infrarenal abdominal aorta measures up to 2.5 cm. No renal or ureteral calculi. No hydronephrosis. There is a moderate amount of retained colonic feces. There is generalized ascites. Senescent appearing calcification noted of the uterus. Multiple unopacified bowel loops in the abdomen or pelvis which could obscure or mimic pathology. If symptoms persist, consider repeat exam with IV and oral contrast.. The appendix is not clearly delineated. No evidence of appendicitis. Bowel gas pattern is nonspecific with nondistended fluid-filled loops of small bowel noted. There are some mildly prominent lymph nodes within the mesenteries. Some of these could be related to collateral vessels. Wedge compression changes are present involving L3-L2 L1 T12-T11 and T10 not significantly changed. There is a cluster calcifications in the lateral aspect of the right breast best seen on image 5 series 3. These are nonspecific and may be better evaluated with nonemergent mammography IMPRESSION: 1. Cirrhosis with portal hypertension with splenomegaly and ascites. Small bilateral effusions right greater than left. 2. Hiatal hernia with thickening of the stomach 3. Cardiomegaly with small bilateral effusions. 4. Multiple unopacified bowel loops in the abdomen or pelvis which could obscure or mimic pathology. If symptoms persist, consider repeat exam with IV and oral contrast. 5. Chronic compression deformities in the thoracic and lumbar spine. 6. Indeterminate right breast calcifications Dictated by: Micha Coronel MD 07/01/2020 07:20 Micha Coronel MD in [place] 07/01/2020 07:20
[2020-06-30 19:47] LABS: Microscopic, Urine URINE MICROSCOPIC (MICROSCOPIC)
[2020-06-30 19:56] LABS: Appearance,Urine CLOUDY (Clear); Blood, Urine 3+ (Negative); Color,Urine YELLOW (Yellow); Glucose,Urine (UA) TRACE (Negative); Ketones,Urine 1+ (Negative); Leukocyte Esterase,Urine Negative (Negative); Nitrate,Urine Negative (Negative); Protein,Urine 2+ (Negative); Specific Gravity, Urine >= 1.030 (1.005-1.030)
[2020-06-30 19:59] LABS: Bilirubin,Urine Negative (Negative)
[2020-06-30 20:03] LABS: Amorphous Sediment,Urine 2+ /lpf; Mucus,Urine 1+ /lpf
[2020-06-30 20:10] LABS: Basophils % 0.5 % (0.1-2.0); Eosinophils # 0.1 K/mm3 (0.0-0.4); Eosinophils % 3.6 % (0.1-12.0); Hematocrit 35.5 % (37.0-47.0); Hemoglobin 11.1 g/dL (12.2-16.2); Lymphocytes # 0.8 K/mm3 (0.7-4.5); Lymphocytes % 20.2 % (10-50); Mean Corpuscular HGB Conc 31.2 g/dL (31.8-35.4); Mean Corpuscular Hemoglobin 29.1 pg (27.0-31.2); Mean Corpuscular Volume 93.2 fl (81-99); Mean Platelet Volume 8.3 fl (7.4-10.4); Monocytes # 0.4 K/mm3 (0.1-1.0); Monocytes % 10.1 % (1.7-9.3); Neutrophils # 2.5 K/mm3 (1.8-7.8); Neutrophils % 65.5 % (37.0-80.0); Platelet Count 144 K/mm3 (142-424); Red Blood Count 3.81 M/mm3 (4.20-5.40); Red Cell Distribution Width 16.8 % (11.5-17.5); White Blood Count 3.9 K/mm3 (4.8-10.8)
[2020-06-30 20:14] LABS: Chloride 99 mmol/L (98-107); Potassium 3.1 mmoL/L (3.5-5.1); Sodium 137 mmol/L (136-145)
--- NOTE | 2020-06-30 20:15 | PC.NURSE ---
PT going for CT scan
[2020-06-30 20:17] LABS: Alanine Aminotransferase 10 U/L (12-78); Alkaline Phosphatase 105 U/L (38-126); Amylase 56 U/L (30-110); Anion Gap 9.1 mEq/L (5-15); Aspartate Amino Transferase 19 U/L (14-36); Bilirubin,Total 0.8 mg/dl (0.2-1.3); Blood Urea Nitrogen 10 mg/dl (7-17); Calcium 11.3 mg/dl (8.4-10.2); Carbon Dioxide 32 mmol/L (22.0-30.0); Creatinine Clearance Estimated 25 mL/min (50-200); Estimated Glomerular Filt Rate 20 ml/min (>60); GFR (African American) 24 ML/MIN (>60); Glucose 101 mg/dl (74-100); Lipase 30 U/L (23-300)
[2020-06-30 20:18] LABS: Albumin Level 3.5 g/dl (3.5-5.0); Albumin/Globulin Ratio 1.2 (1.1-1.8); Total Protein,Serum 6.5 g/dl (6.3-8.2)
[2020-06-30 20:30] LABS: Troponin I 0.04 ng/ml (0.00-0.034)
--- NOTE | 2020-06-30 21:00 | HMH.EDNVD ---
ED Disposition Clinical Impression: Kidney disease, chronic, stage IV (GFR 15-29 ml/min) Abdominal pain Qualifiers: Abdominal location: epigastric Qualified Code(s): R10.13 - Epigastric pain Cirrhosis Qualifiers: Hepatic cirrhosis type: alcoholic cirrhosis Ascites presence: without ascites Qualified Code(s): K70.30 - Alcoholic cirrhosis of liver without ascites Disposition: Home, Self-Care Condition on Discharge: Good Instructions: DI for Acute Abdomen Additional Instructions: call pcp in am Referrals: Rafi Albrecht MD [Primary Care Provider] - - Critical Care Critical Care Time: No Attestation: On 06/30/20, the high probability of a clinically significant, sudden or life threatening deterioration of the following system(s) required my full and direct attention, intervention and personal management. The time I documented below is in addition to time spent performing reported procedures but includes the following listed in this critical care notation. Medical Decision Making - Medical Records Medical records reviewed: Yes: I reviewed the patient's medical records. - Rudy Inquiry Pt receiving controlled substance: No Vital Signs: 06/30/20 19:24 Temperature 98.4 F Temperature Source Oral Pulse Rate [Right] 130 H Respiratory Rate 16 Blood Pressure [Right Arm] 136/77 Blood Pressure Mean [Right Arm] 96 Blood Pressure Source [Right Arm] Automatic Cuff Blood Pressure Position [Right Arm] Sitting 02 Sat by Pulse Oximetry 95 Oxygen Delivery Method Room Air - Lab Data Lab results reviewed: Yes: I reviewed the patient's lab results. Lab Results 06/30/20 19:35: Urine Color Yellow, Urine Appearance Cloudy, Urine pH 5.0, Ur Specific [place] >= 1.030, Urine Protein 2+, Urine Glucose (UA) Trace, Urine Ketones 1+, Urine Blood 3+, Urine Nitrate Negative, Urine Bilirubin Negative, Urine Urobilinogen 1.0, Ur Leukocyte Esterase Negative, Urine RBC 10-20, Urine WBC 5-10, Ur Squamous Epith Cells 10-20, Amorphous Sediment 2+, Urine Bacteria None, Urine Mucus 1+ 06/30/20 20:00: WBC 3.9 L, RBC 3.81 L, Hgb 11.1 L, Hct 35.5 L, MCV 93.2, MCH 29.1, MCHC 31.2 L, RDW 16.8, Plt Count 144, MPV 8.3, Neut % (Auto) 65.5, Lymph % (Auto) 20.2, [place] % (Auto) 10.1 H, Eos % (Auto) 3.6, Baso % (Auto) 0.5, Neut # (Auto) 2.5, Lymph # (Auto) 0.8, [place] # (Auto) 0.4, Eos # (Auto) 0.1, Baso # (Auto) 0.0 06/30/20 20:00: Sodium 137, Potassium 3.1 L, Chloride 99, Carbon Dioxide 32 H, Anion Gap 9.1, BUN 10, Creatinine 2.40 H, Estimated Creat Clear 25, Estimated GFR 20 L, Est GFR ( Amer) 24 L, Glucose 101 H, Calcium 11.3 H, Total Bilirubin 0.8, AST 19, ALT 10 L, Alkaline Phosphatase 105, Troponin I 0.04 H, Total Protein 6.5, Albumin 3.5, Globulin 3.0, Albumin/Globulin Ratio 1.2, Amylase 56, Lipase 30 Result diagrams: 06/30/20 20:00 06/30/20 20:00 Orders (Tests/Meds): ORDERS Category Date Time Status CT abdomen pelvis wo con Stat Cat Scan 06/30/20 19:45 Taken XR chest 2V Stat Exams 06/30/20 19:43 Taken Troponin I Q3H Lab 06/30/20 22:45 Ordered Troponin I Q3H Lab 07/01/20 01:45 Ordered - CT Data CT Scan: Abdomen, Pelvis Time Received: 21:[address] Reviewed: Yes: I have viewed the radiologist's interpretation Preliminary Findings: Abnormal - ECG Data Tracing #1 I reviewed this ECG and interpreted as documented below: Ischemic changes: non-specific ST-T wave changes Nausea/Vomiting/Diarrhea HPI - General Chief complaint: PAIN Stated complaint: abd pain Time Seen by Provider: 06/30/20 20:00 Mode of Arrival: EMS Source of Information: Patient, Spouse, Medical Record Limitations: No Limitations Description of Symptoms (Recalled from ER Triage Doc. by RN): PT c/o feeling SOA with epigastric pain and nausea. Advises this has been going on and she has been seen for it but today it was getting worse - History of Present Illness HPI Narrative: dialysis today with upper abd pain - no vomiting MD complaint: n
[2020-06-30 21:28] VITALS: BP 163/93; PULSE 84; RESP 16; TEMP 36.8; O2SAT 98
== END 2020-06-30 21:30 | disposition home or self-care (01) ==
PROVIDERS: Emergency Provider Emergency Medicine; PCP Family Medicine
DX: K70.30 Alcoholic cirrhosis of liver without ascites (principal); N18.4 Chronic kidney disease, stage 4 (severe); E11.9 Type 2 diabetes mellitus without complications; E03.9 Hypothyroidism, unspecified; I10 Essential (primary) hypertension; D86.0 Sarcoidosis of lung; I48.20 Chronic atrial fibrillation, unspecified; E78.5 Hyperlipidemia, unspecified; Z79.899 Other long term (current) drug therapy
CPT/HCPCS: 71046; 74176; 80053; 81001; 82150; 83690; 84484; 85025; 93005; 96374; 99283; J2405

== ENCOUNTER → 2020-10-14 10:24 | Outpatient (CLI) | payer MEDICARE, SELFPAY ==
[2020-10-14 11:47] LABS: Alanine Aminotransferase 33 U/L (12-78); Albumin Level 4.2 g/dl (3.5-5.0); Albumin/Globulin Ratio 1.4 (1.1-1.8); Alkaline Phosphatase 152 U/L (38-126); Anion Gap 13.2 mEq/L (5-15); Aspartate Amino Transferase 40 U/L (14-36); Blood Urea Nitrogen 34 mg/dl (7-17); Carbon Dioxide 33 mmol/L (22.0-30.0); Chloride 94 mmol/L (98-107); Estimated Glomerular Filt Rate 11 ml/min (>60); GFR (African American) 13 ML/MIN (>60); Glucose 108 mg/dl (74-100); Potassium 4.2 mmoL/L (3.5-5.1); Sodium 136 mmol/L (136-145); Total Protein,Serum 7.2 g/dl (6.3-8.2)
[2020-10-14 11:58] LABS: Intact Parathyroid Hormone 362.9 pg/mL (7.5-53.5)
[2020-10-14 12:03] LABS: 25-OH Vitamin D, Total 13.8 ng/mL (30-100)
[2020-10-23 18:55] LABS: 1,25 Dihydroxy Vitamin D 52 pg/mL (.); 1,25-Dihydroxy, Vitamin D-2 23 pg/mL (.); 1,25-Dihydroxy, Vitamin D-3 29 pg/mL (.)
== END ==
PROVIDERS: Visit Provider Internal Medicine Endocrinology, Diabetes & Metabolism
DX: N18.6 End stage renal disease; R91.1 Solitary pulmonary nodule; D86.85 Sarcoid myocarditis; D86.0 Sarcoidosis of lung; E55.9 Vitamin D deficiency, unspecified
CPT/HCPCS: 36415; 80053; 82306; 82652; 83970

== ENCOUNTER 2020-11-29 02:51 | Emergency (ER) | payer MEDICARE, SELFPAY ==
[2020-11-29 02:52] VITALS: BP 184/101; PULSE 92; RESP 24; TEMP 36.8; O2SAT 95; BMI 36.6
--- NOTE | 2020-11-29 03:21 | CT_ITS ---
PROCEDURE: CT ABDOMEN PELVIS WO CON CLINICAL INDICATION: abd pain, flank pain COMPARISON: CT CT ABDOMEN PELVIS WO CON from 06/30/2020 TECHNIQUE: Axial images obtained with sagittal and coronal reformats. All CT scans at the facility use one or more dose reduction, viz: automated exposure control, ma/kV adjustment per patient size (including targeted exams where dose is matched to indication, i.e. head), or iterative reconstruction technique. FINDINGS: Lower thorax: There is mild vascular congestion and there is a small right pleural effusion. There is generalized cardiomegaly with prominent left atrial enlargement and pacemaker electrodes noted. Coronary artery calcification is noted. ABDOMEN: Liver: There is prominent nodularity of the liver capsule consistent with generalized cirrhosis. The portal veins mildly enlarged and there mild portosystemic collateral vessels noted. Gallbladder: Post cholecystectomy Pancreas: No masses or peripancreatic fluid collections. Spleen: There is mild splenomegaly similar to the previous exam Adrenals: unremarkable Kidneys/ureters: The kidneys are lower limits of normal in size, though there are no calculi and there is no obstructive uropathy ABDOMEN & PELVIS: Stomach bowel: There is a moderate-sized hiatal hernia. There is mild gastric wall thickening probably due to lack of distention. The small bowel appears normal. There is a large amount stool in the ascending and transverse colon and splenic flexure. There is moderate ptosis of the transverse colon. Peritoneum: No abnormal fluid collections. No obvious inflammatory changes. No free air. There is mild diastasis recti noted. Lymph nodes: No enlarged lymph nodes apparent. Vasculature: There is mild scattered arteriosclerotic calcification of the abdominal aorta but there is no aneurysm. Bones: There is a moderate non recent compression fracture of T11. There are Schmorl's nodes at the L1-2 and L2-3 levels. There is no acute compression fracture noted. PELVIS: Reproductive: There are diffuse calcifications in the mildly enlarged uterus as noted previously Bladder: Nondistended. No obvious stones or masses. There is no free fluid in the pelvis. Appendix: There are no findings of appendicitis. IMPRESSION: 1. Generalized cardiomegaly with prominent left atrial enlargement and small right pleural effusion and findings suggesting mild chronic failure 1. Cirrhotic changes of the liver as seen previously with mildly dilated portal vein and portosystemic collateral vessels noted 2. Findings of moderate constipation Dictated by: Dr. Dami Gordon MD 11/29/2020 09:19 Dr. Dami Gordon MD in [place] 11/29/2020 09:19
--- NOTE | 2020-11-29 03:21 | XR_ITS ---
PROCEDURE: XR CHEST 2V CLINICAL HISTORY: sob COMPARISON: CT CT CHEST WO CON from 08/07/2019 CR XR CHEST PORTABLE from 11/10/2019 CR XR CHEST PORTABLE from 06/22/2020 CR XR CHEST 2V from 06/30/2020 FINDINGS: There is generalized cardiomegaly. There is a left-sided cardiac pacemaker with dual chamber electrodes both in good position. There is mild pulmonary congestion with prominence of the upper lobe vessels. There is a small right pleural effusion, there is mild thickening of the minor fissure. There is no definite pneumonic infiltrate. IMPRESSION: Generalized cardiomegaly with findings suggesting chronic congestive heart failure and small right pleural effusion Dictated by: Dr. Dami Gordon MD 11/29/2020 08:51 Dr. Dami Gordon MD in [place] 11/29/2020 08:51
[2020-11-29 03:30] VITALS: BP 182/98; PULSE 72; RESP 16; O2SAT 94
[2020-11-29 04:00] VITALS: BP 163/93; PULSE 74; RESP 20; O2SAT 94
[2020-11-29 04:00] LABS: Basophils % 0.3 % (0.1-2.0); Eosinophils # 0.1 K/mm3 (0.0-0.4); Eosinophils % 0.7 % (0.1-12.0); Hematocrit 34.9 % (37.0-47.0); Hemoglobin 10.8 g/dL (12.2-16.2); Lymphocytes # 0.7 K/mm3 (0.7-4.5); Lymphocytes % 8.3 % (10-50); Mean Corpuscular HGB Conc 30.8 g/dL (31.8-35.4); Mean Corpuscular Hemoglobin 29.4 pg (27.0-31.2); Mean Corpuscular Volume 95.5 fl (81-99); Mean Platelet Volume 8.1 fl (7.4-10.4); Monocytes # 0.5 K/mm3 (0.1-1.0); Monocytes % 6.7 % (1.7-9.3); Neutrophils # 6.6 K/mm3 (1.8-7.8); Platelet Count 133 K/mm3 (142-424); Red Blood Count 3.65 M/mm3 (4.20-5.40); Red Cell Distribution Width 16.2 % (11.5-17.5); White Blood Count 7.8 K/mm3 (4.8-10.8)
--- NOTE | 2020-11-29 04:10 | HMH.EDGENADL ---
ED Disposition Clinical Impression: Acute dyspnea, Pleural effusion Disposition: Xfer Other Condition on Discharge: Good Instructions: DI for Acute Abdominal Pain Referrals: Rafi Albrecht MD [Primary Care Provider] - Forms: Transfer Record - ED - Critical Care Critical Care Time: No Attestation: On 11/29/20, the high probability of a clinically significant, sudden or life threatening deterioration of the following system(s) required my full and direct attention, intervention and personal management. The time I documented below is in addition to time spent performing reported procedures but includes the following listed in this critical care notation. Medical Decision Making - Medical Records Medical records reviewed: Yes: I reviewed the patient's medical records. - Rudy Inquiry Pt receiving controlled substance: No Vital Signs: 11/29/20 02:52 11/29/20 03:30 11/29/20 04:00 Temperature 98.2 F Temperature Source Oral Pulse Rate [Right Radial] 92 H 72 74 Respiratory Rate 24 16 20 Blood Pressure [Right Arm] 184/101 H 182/98 H 163/93 H Blood Pressure Mean [Right Arm] 128 126 116 Blood Pressure Source [Right Arm] Automatic Cuff Automatic Cuff Blood Pressure Position [Right Arm] Sitting Sitting Supine 02 Sat by Pulse Oximetry 95 94 L 94 L Oxygen Delivery Method Room Air Room Air Room Air 11/29/20 04:30 11/29/20 05:52 Temperature Temperature Source Pulse Rate [Right Radial] 71 70 Respiratory Rate 15 16 Blood Pressure [Right Arm] 160/92 H 162/71 H Blood Pressure Mean [Right Arm] 114 101 Blood Pressure Source [Right Arm] Automatic Cuff Blood Pressure Position [Right Arm] Sitting Sitting 02 Sat by Pulse Oximetry 95 93 L Oxygen Delivery Method Room Air Room Air - Lab Data Lab Results 11/29/20 03:55: WBC 7.8, RBC 3.65 L, Hgb 10.8 L, Hct 34.9 L, MCV 95.5, MCH 29.4, MCHC 30.8 L, RDW 16.2, Plt Count 133 L, MPV 8.1, Neut % (Auto) 84.0 H, Lymph % (Auto) 8.3 L, [place] % (Auto) 6.7, Eos % (Auto) 0.7, Baso % (Auto) 0.3, Neut # (Auto) 6.6, Lymph # (Auto) 0.7, [place] # (Auto) 0.5, Eos # (Auto) 0.1, Baso # (Auto) 0.0 11/29/20 03:55: Sodium 140, Potassium 4.7, Chloride 106, Carbon Dioxide 30, Anion Gap 8.7, BUN 50 H, Creatinine 3.70 H, Estimated Creat Clear 23, Estimated GFR 12 L*, Est GFR ( Amer) 15 L*, Glucose 115 H, Calcium 8.6, Troponin I 0.07 H, NT-Pro-B Natriuret Pep 58900 H Result diagrams: 11/29/20 03:55 11/29/20 03:55 Orders (Tests/Meds): ED MEDICATIONS Discontinued Medications Generic Name Dose Route Start Last Admin Trade Name Freq PRN Reason Stop Dose Admin Furosemide 100 mg 11/29/20 03:22 11/29/20 03:31 Furosemide 100mg/10ml Vial IV 11/29/20 03:23 100 mg ONCE ONE Administration Morphine Sulfate 4 mg 11/29/20 03:21 11/29/20 03:31 Morphine 4mg/Ml Syringe IV 11/29/20 03:22 4 mg ONCE ONE Administration ORDERS Category Date Time Status CT abdomen pelvis wo con Stat Cat Scan 11/29/20 03:21 Taken XR chest 2V Stat Exams 11/29/20 03:21 Taken Troponin I Q3H Lab 11/29/20 06:55 Ordered Troponin I Q3H Lab 11/29/20 09:55 Ordered Medical Decision Narrative: In summary 70-year-old with past medical history of CHF, renal failure on dialysis presenting for shortness of breath. On arrival patient's vital signs are stable, not on oxygen, patient has mild respiratory distress. Patient on bedside ultrasound has B-lines and significantly reduced ejection fraction of left ventricle with multi chamber dilated cardiomyopathy. Patient appears to have pulmonary edema secondary to vascular congestion. Patient still makes urine she was given a 100 mg IV furosemide. Patient had a CT abdomen pelvis IV contrast ordered as well chest x-ray. Patient on morphine for pain control. On repeat assessment, patient CT scan demonstrated pleural effusion and no acute intra-abdominal pathology. Patient did make some urine but did not have significant relief with dyspnea. [place]
[2020-11-29 04:22] LABS: Anion Gap 8.7 mEq/L (5-15); Blood Urea Nitrogen 50 mg/dl (7-17); Calcium 8.6 mg/dl (8.4-10.2); Carbon Dioxide 30 mmol/L (22.0-30.0); Chloride 106 mmol/L (98-107); Creatinine Clearance Estimated 23 mL/min (50-200); Glucose 115 mg/dl (74-100); Potassium 4.7 mmoL/L (3.5-5.1); Sodium 140 mmol/L (136-145)
--- NOTE | 2020-11-29 04:29 | ECG_ITS ---
APPROVED REPORT Exam: Resting ECG HR:76 bpm ECG Measurements Heart Rate 76 AXES [place] 176 P 72 QRSd 102 QRS -47 QT 440 T 32 QTc 495 Conclusion Normal sinus rhythm Left anterior fascicular block Voltage criteria for left ventricular hypertrophy Prolonged QT Abnormal ECG Electronically signed by : Rafi Nesbitt, 11/29/2020 16:00:20
[2020-11-29 04:30] VITALS: BP 160/92; PULSE 71; RESP 15; O2SAT 95
[2020-11-29 04:30] LABS: Estimated Glomerular Filt Rate 12 ml/min (>60); GFR (African American) 15 ML/MIN (>60)
[2020-11-29 04:35] LABS: NT Pro Brain Natriuretic Pep. 18900 pg/mL (0-125); Troponin I 0.07 ng/ml (0.00-0.034)
--- NOTE | 2020-11-29 05:49 | PC.NURSE ---
Pt has been accepted to [facility] to [facility] Filib[facility]
[2020-11-29 05:52] VITALS: BP 162/71; PULSE 70; RESP 16; O2SAT 93
--- NOTE | 2020-11-29 05:53 | PC.NURSE ---
call placed to [facility]cn [facility] desk [phone]
[2020-11-29 06:13] VITALS: BP 183/103; PULSE 70; RESP 20; TEMP 36.7; O2SAT 100
== END 2020-11-29 06:19 | disposition other institution (70) ==
PROVIDERS: Emergency Provider Emergency Medicine; PCP Family Medicine
DX: J90 Pleural effusion, not elsewhere classified (principal); I10 Essential (primary) hypertension; I50.9 Heart failure, unspecified; E11.9 Type 2 diabetes mellitus without complications; I48.91 Unspecified atrial fibrillation; E78.5 Hyperlipidemia, unspecified; E03.9 Hypothyroidism, unspecified; D86.89 Sarcoidosis of other sites; Z95.0 Presence of cardiac pacemaker
CPT/HCPCS: 36415; 71046; 74176; 80048; 83880; 84484; 85025; 93005; 96374; 96375; 99284

== ENCOUNTER → 2020-12-10 11:14 | Outpatient (CLI) | payer MEDICARE, SELFPAY ==
--- NOTE | 2020-12-10 11:18 | US_ITS ---
APPROVED REPORT Exam Type: Ankle to Brachial Index Reconcilement Clerk: Dilma Khoury RT(R) Indications Claudication: Bilaterally Rest Pain: Bilaterally Risk Factors Hypertension Hyperlipidemia Diabetes Pressures/Indices Right Indices Left Indices Brachial Brachial 157.00 mmHg Low Thigh 179.00 mmHg 1.14 Low Thigh 184.00 mmHg 1.17 Calf 254.00 mmHg Calf 254.00 mmHg Ankle(PT) 254.00 mmHg Ankle(PT) 254.00 mmHg Ankle(DP) 254.00 mmHg Ankle(DP) 254.00 mmHg Digit 64.00 mmHg 0.41 Digit 52.00 mmHg 0.33 Findings RT VENU=NC LT VENU=NC RT TBI=0.41 LT TBI=0.33 Non compressible vessels noted in bilateral LE with VENU's unobtainable with pressures greater than 254. Abnormal waveforms Conclusion RT VENU=NC LT VENU=NC RT TBI=0.41 LT TBI=0.33 Non compressible vessels noted in bilateral LE with VENU's unobtainable with pressures greater than 254. Abnormal waveforms Decreased left brachial BP suggesting stenosis of lt upper extremity artery Electronically signed by : Micha Coronel MD 12/10/2020 15:56:31
== END ==
PROVIDERS: PCP Family Medicine; Visit Provider Family Medicine
DX: I73.9 Peripheral vascular disease, unspecified (principal); S91.302A Unspecified open wound, left foot, initial encounter
CPT/HCPCS: 93923

== ENCOUNTER 2021-05-27 18:41 | Emergency (ER) | payer MEDICARE, SELFPAY ==
[2021-05-27 18:43] VITALS: BP 99/67; PULSE 86; RESP 18; TEMP 36.3; O2SAT 97; BMI 31.2
--- NOTE | 2021-05-27 18:51 | ECG_ITS ---
APPROVED REPORT Exam: Resting ECG HR:93 bpm ECG Measurements Heart Rate 93 AXES QRSd 116 QRS -51 QT 440 T 92 QTc 547 Conclusion Sinus rhythm with AV dissociation and Accelerated Junctional rhythm with premature ventricular complexes or fusion complexes Left axis deviation Left ventricular hypertrophy with QRS widening and repolarization abnormality Prolonged QT Abnormal ECG Electronically signed by : Rafi Nesbitt MD 05/28/2021 16:56:49
--- NOTE | 2021-05-27 19:00 | XR_ITS ---
PROCEDURE INFORMATION: Exam: XR Chest Exam date and time: 05/27/2021 7:00 PM Age: 70 years old Clinical indication: Shortness of breath; Prior surgery; Surgery date: 6+ months; Surgery type: Pacemaker; Patient HX: SOA; Non-smoker TECHNIQUE: Imaging protocol: XR of the chest. Views: 2 views. COMPARISON: CR XR CHEST 2V 11/29/2020 4:40 AM FINDINGS: Lungs: Unremarkable. No consolidation. Pleural spaces: Unremarkable. No pleural effusion. No pneumothorax. Heart/Mediastinum: Cardiomegaly. Dual lead left-sided cardiac pacemaker. Moderate-sized hiatal hernia. Bones/joints: Unremarkable. IMPRESSION: No acute findings.
--- NOTE | 2021-05-27 19:30 | PC.NURSE ---
pt in radiology at this time
--- NOTE | 2021-05-27 19:39 | PC.NURSE ---
pt back from radiology
[2021-05-27 20:17] LABS: Coronavirus 19, PCR Not Detected (NotDetected); Influenza A, PCR Not Detected (NotDetected); Influenza B, PCR Not Detected (NotDetected)
--- NOTE | 2021-05-27 20:17 | PC.NURSE ---
20g IV started to left shoulder/chest area. IV patent, flushes well, and has visible blood return. Slight bruising noted at site. IV secured. Unable to obtain blood specimens at this time. Pt is a difficult stick, and unable to use R arm for venipuncture. Lab notified to come attempt to draw blood. Primary RN notified.
[2021-05-27 21:35] LABS: Basophils % 0.6 % (0.1-2.0); Eosinophils # 0.1 K/mm3 (0.0-0.4); Eosinophils % 1.6 % (0.1-12.0); Hematocrit 35.5 % (37.0-47.0); Hemoglobin 11.6 g/dL (12.2-16.2); Lymphocytes # 0.8 K/mm3 (0.7-4.5); Lymphocytes % 19.2 % (10-50); Mean Corpuscular HGB Conc 32.6 g/dL (31.8-35.4); Mean Corpuscular Hemoglobin 28.5 pg (27.0-31.2); Mean Corpuscular Volume 87.2 fl (81-99); Mean Platelet Volume 8.1 fl (7.4-10.4); Monocytes # 0.5 K/mm3 (0.1-1.0); Monocytes % 12.5 % (1.7-9.3); Neutrophils # 2.7 K/mm3 (1.8-7.8); Neutrophils % 66.1 % (37.0-80.0); Platelet Count 160 K/mm3 (142-424); Red Blood Count 4.07 M/mm3 (4.20-5.40); Red Cell Distribution Width 16.3 % (11.5-17.5); White Blood Count 4.1 K/mm3 (4.8-10.8)
[2021-05-27 21:42] LABS: Alanine Aminotransferase 18 U/L (12-78); Albumin Level 3.4 g/dl (3.5-5.0); Albumin/Globulin Ratio 1.3 (1.1-1.8); Alkaline Phosphatase 218 U/L (38-126); Anion Gap 10.9 mEq/L (5-15); Aspartate Amino Transferase 27 U/L (14-36); Bilirubin,Total 0.9 mg/dl (0.2-1.3); Blood Urea Nitrogen 5 mg/dl (7-17); Calcium 7.3 mg/dl (8.4-10.2); Carbon Dioxide 26 mmol/L (22.0-30.0); Chloride 103 mmol/L (98-107); Creatinine Clearance Estimated 27 mL/min (50-200); Estimated Glomerular Filt Rate 18 ml/min (>60); GFR (African American) 21 ML/MIN (>60); Globulin 2.6 g/dL (1.3-3.2); Glucose 90 mg/dl (74-100); Lactic Acid 1.1 mmol/L (0.7-2.1); Sodium 137 mmol/L (136-145)
[2021-05-27 21:45] LABS: Potassium 2.9 mmoL/L (3.5-5.1)
[2021-05-27 21:47] LABS: C-Reactive Protein 15.9 mg/L (0-4)
--- NOTE | 2021-05-27 21:48 | HMH.EDSOB ---
ED Disposition Clinical Impression: Dizziness, Hypokalemia, ESRD (end stage renal disease) on dialysis, Atrial arrhythmia Disposition: Home, Self-Care Condition on Discharge: Fair Instructions: Vertigo Additional Instructions: call pcp in am Referrals: Aldo Juarez MD [Primary Care Provider] - - Critical Care Critical Care Time: No Attestation: On 05/27/21, the high probability of a clinically significant, sudden or life threatening deterioration of the following system(s) required my full and direct attention, intervention and personal management. The time I documented below is in addition to time spent performing reported procedures but includes the following listed in this critical care notation. Medical Decision Making - Medical Records Medical records reviewed: Yes: I reviewed the patient's medical records. - Rudy Inquiry Pt receiving controlled substance: No Vital Signs: 05/27/21 18:43 Temperature 97.4 F L Temperature Source Oral Pulse Rate [Left] 86 Respiratory Rate 18 Blood Pressure [Left Arm] 99/67 L Blood Pressure Mean [Left Arm] 77 02 Sat by Pulse Oximetry 97 - Lab Data Lab results reviewed: Yes: I reviewed the patient's lab results. Lab Results 05/27/21 20:12: SARS-CoV-2 (PCR) Not detected, Influenza A Untype (PCR) Not detected, Influenza Type B (PCR) Not detected 05/27/21 21:15: WBC 4.1 L, RBC 4.07 L, Hgb 11.6 L, Hct 35.5 L, MCV 87.2, MCH 28.5, MCHC 32.6, RDW 16.3, Plt Count 160, MPV 8.1, Neut % (Auto) 66.1, Lymph % (Auto) 19.2, [place] % (Auto) 12.5 H, Eos % (Auto) 1.6, Baso % (Auto) 0.6, Neut # (Auto) 2.7, Lymph # (Auto) 0.8, [place] # (Auto) 0.5, Eos # (Auto) 0.1, Baso # (Auto) 0.0, ESR 37 H 05/27/21 21:15: Sodium 137, Potassium 2.9 L*, Chloride 103, Carbon Dioxide 26, Anion Gap 10.9, BUN 5 L, Creatinine 2.70 H, Estimated Creat Clear 27, Estimated GFR 18 L*, Est GFR ( Amer) 21 L, Glucose 90, Calcium 7.3 L, Total Bilirubin 0.9, AST 27, ALT 18, Alkaline Phosphatase 218 H, Troponin I 0.03, C-Reactive Protein 15.9 H, Total Protein 6.0 L, Albumin 3.4 L, Globulin 2.6, Albumin/Globulin Ratio 1.3, Procalcitonin 1.56 05/27/21 21:15: Lactate 1.1 Result diagrams: 05/27/21 21:15 05/27/21 21:15 Orders (Tests/Meds): ED MEDICATIONS Generic Name Dose Route Start Last Admin Trade Name Freq PRN Reason Stop Dose Admin Sodium Chloride 1,000 mls @ 999 mls/hr 05/27/21 19:15 05/27/21 19:57 Sod Chlor 0.9% 1000ml Bag IV 05/27/21 20:15 999 mls/hr .Q1H1M SHENG Administration Discontinued Medications Generic Name Dose Route Start Last Admin Trade Name Freq PRN Reason Stop Dose Admin Ondansetron HCl 4 mg 05/27/21 19:02 05/27/21 19:57 Ondansetron 4mg/2ml Vial IV 05/27/21 19:03 4 mg ONCE ONE Administration Potassium Chloride 40 meq 05/27/21 22:13 05/27/21 23:06 Potassium Chloride 20meq Tab PO 05/27/21 22:14 40 meq ONCE ONE Administration ORDERS Category Date Time Status Troponin I Q3H Lab 05/27/21 22:15 Ordered Troponin I Q3H Lab 05/28/21 01:15 Ordered Blood Culture Stat Micro 05/27/21 21:15 Received - Radiology Data #1 Image(s): Chest Image Reviewed: Yes I reviewed the patient's radiology image Preliminary Findings: Normal/NAD - ECG Data Tracing #1 Arrhythmias present: aflutter Ischemic changes: non-specific ST-T wave changes Pacemaker function: normal pacer function - Physician Consults Physician Consulted: zulema Reason -: Pt condition Additional Consult: shannan Reason -: Pt condition Medical Decision Narrative: has arrthymia and is prob chronic and been on anticog in past - esrd on dialysis Resp/SOB HPI - General Chief Complaint: Shortness of Breath/Dyspnea Stated Complaint: DIZZY,sob NAUSA Time Seen by Provider: 05/27/21 20:00 Mode of Arrival: Wheelchair Source of Information: Patient, Medical Record Limitations: No Limitations Description of Symptoms (Recalled from ER Triage Doc. by RN): pt c/o SOA, n/v, diz
[2021-05-27 21:56] LABS: Troponin I 0.03 ng/ml (0.00-0.034)
[2021-05-27 22:01] LABS: Procalcitonin 1.56 ng/mL (0.0-2.0)
[2021-05-27 22:19] LABS: Erythrocyte Sedimentation Rate 37 mm/hr (0-30)
--- NOTE | 2021-05-27 22:25 | PC.NURSE ---
Dr. Jacobo on Dr. Kirkland
--- NOTE | 2021-05-27 22:39 | PC.NURSE ---
Dr. Jacobo talking to Dr. Portillo at this time.
[2021-05-27 23:08] VITALS: BP 121/75; PULSE 78; RESP 18; TEMP 36.8; O2SAT 98
== END 2021-05-27 23:18 | disposition home or self-care (01) ==
PROVIDERS: Emergency Provider Emergency Medicine; PCP Family Medicine
DX: R42 Dizziness and giddiness (principal); R11.0 Nausea; N18.6 End stage renal disease; Z99.2 Dependence on renal dialysis; I48.20 Chronic atrial fibrillation, unspecified; E78.5 Hyperlipidemia, unspecified; I10 Essential (primary) hypertension; E03.9 Hypothyroidism, unspecified; D86.9 Sarcoidosis, unspecified; E11.9 Type 2 diabetes mellitus without complications; Z95.0 Presence of cardiac pacemaker; Z79.899 Other long term (current) drug therapy
CPT/HCPCS: 71046; 80053; 83605; 84145; 84484; 85025; 85651; 86140; 87040; 93005; 96365; 96375; 99282; J2405; U0003

== ENCOUNTER 2021-07-24 05:42 | Emergency (ER) | payer MEDICARE, SELFPAY ==
[2021-07-24 05:30] VITALS: BP 148/85; PULSE 76; RESP 21; TEMP 36.7; O2SAT 97; BMI 31.2
--- NOTE | 2021-07-24 05:34 | ECG_ITS ---
APPROVED REPORT Exam: Resting ECG HR:75 bpm ECG Measurements Heart Rate 75 AXES MN 224 P 67 QRSd 104 QRS -49 QT 440 T 52 QTc 491 Conclusion Sinus rhythm with 1st degree AV block Left axis deviation Moderate voltage criteria for LVH, may be normal variant Prolonged QT Abnormal ECG Electronically signed by : Rafi Nesbitt MD 07/26/2021 21:25:40
--- NOTE | 2021-07-24 05:40 | XR_ITS ---
PROCEDURE INFORMATION: Exam: XR Chest Exam date and time: 07/24/2021 5:40 AM Age: 70 years old Clinical indication: Shortness of breath; Additional info: SOA TECHNIQUE: Imaging protocol: XR of the chest. Views: 2 views. COMPARISON: CR XR CHEST 2V 05/27/2021 7:28 PM FINDINGS: Tubes, catheters and devices: A pacemaker device is present, and it appears to be in appropriate position. Lungs: Unremarkable. No consolidation. Pleural spaces: Unremarkable. No pleural effusion. No pneumothorax. Heart/Mediastinum: The heart demonstrates diffuse enlargement, unchanged. Bones/joints: Unremarkable. IMPRESSION: No acute findings.
--- NOTE | 2021-07-24 05:52 | PC.NURSE ---
Pt to xray
--- NOTE | 2021-07-24 06:27 | HMH.EDSOB ---
ED Disposition Clinical Impression: ESRD (end stage renal disease) on dialysis Chest pain Qualifiers: Chest pain type: precordial pain Qualified Code(s): R07.2 - Precordial pain Disposition: Home, Self-Care Condition on Discharge: Fair Instructions: DI for Chest Pain Additional Instructions: call pcp for f/u and prob should go to dialysis Referrals: Rafi Albrecht MD [Primary Care Provider] - - Critical Care Critical Care Time: No Attestation: On 07/24/21, the high probability of a clinically significant, sudden or life threatening deterioration of the following system(s) required my full and direct attention, intervention and personal management. The time I documented below is in addition to time spent performing reported procedures but includes the following listed in this critical care notation. Medical Decision Making - Medical Records Medical records reviewed: Yes: I reviewed the patient's medical records. - Rudy Inquiry Pt receiving controlled substance: No Vital Signs: 07/24/21 05:30 Temperature 98.1 F Temperature Source Oral Pulse Rate [Apical] 76 Respiratory Rate 21 Blood Pressure [Right Arm] 148/85 H Blood Pressure Mean [Right Arm] 106 Blood Pressure Source [Right Arm] Automatic Cuff Blood Pressure Position [Right Arm] Sitting 02 Sat by Pulse Oximetry 97 Oxygen Delivery Method Room Air - Lab Data Lab results reviewed: Yes: I reviewed the patient's lab results. Lab Results 07/24/21 05:46: WBC 4.4 L, RBC 3.52 L, Hgb 10.2 L, Hct 33.1 L, MCV 94.0, MCH 28.9, MCHC 30.8 L, RDW 16.0, Plt Count 185, MPV 8.2, Neut % (Auto) 69.2, Lymph % (Auto) 19.5, [place] % (Auto) 9.7 H, Eos % (Auto) 1.3, Baso % (Auto) 0.3, Neut # (Auto) 3.0, Lymph # (Auto) 0.8, [place] # (Auto) 0.4, Eos # (Auto) 0.1, Baso # (Auto) 0.0 07/24/21 05:46: Sodium 140, Potassium 3.5, Chloride 104, Carbon Dioxide 30, Anion Gap 9.5, BUN 20 H, Creatinine 3.10 H, Estimated Creat Clear 23, Estimated GFR 15 L*, Est GFR ( Amer) 18 L*, Glucose 114 H, Calcium 9.0, Magnesium 2.4 H, Total Bilirubin 0.5, Direct Bilirubin 0.3, Conjugated Bilirubin 0.0, Indirect Bilirubin 0.2, Unconjugated Bilirubin 0.3, AST 50 H, ALT 31, Alkaline Phosphatase 181 H, Troponin I 0.04 H, C-Reactive Protein 8.7 H, NT-Pro-B Natriuret Pep 6470 H, Total Protein 6.1 L, Albumin 3.6, Thyroxine (T4) 9.1 07/24/21 05:46: Lactate 1.4 Result diagrams: 07/24/21 05:46 07/24/21 05:46 Orders (Tests/Meds): ED MEDICATIONS Generic Name Dose Route Start Last Admin Trade Name Freq PRN Reason Stop Dose Admin Sodium Chloride 8 ml 07/24/21 06:29 Sodium Chloride 0.9% 10ml Vial IV 08/23/21 06:28 NEEDED PRN dilute pepcid Discontinued Medications Generic Name Dose Route Start Last Admin Trade Name Freq PRN Reason Stop Dose Admin Belladonna Alkaloids 60 ml 07/24/21 06:45 07/24/21 06:55 Gi Cocktail 60ml Udc PO 07/24/21 06:46 60 ml ONCE ONE Administration Famotidine 20 mg 07/24/21 06:29 07/24/21 06:33 Famotidine 20mg/2ml Vial IV 07/24/21 06:30 20 mg ONCE ONE Administration Metoclopramide HCl 10 mg 07/24/21 06:29 07/24/21 06:33 Metoclopramide Hcl 10mg/2ml Vial IVP 07/24/21 06:30 10 mg ONCE ONE Administration ORDERS Category Date Time Status XR chest 2V Stat Exams 07/24/21 05:40 Taken Basic Metabolic Panel Stat Lab 07/24/21 05:46 Results Brain Natriuretic Peptide Stat Lab 07/24/21 05:46 Results C-Reactive Protein Stat Lab 07/24/21 05:46 Results Complete Blood Count Auto Diff Stat Lab 07/24/21 05:46 Results Erythrocyte Sedimentation Rate Stat Lab 07/24/21 05:46 Results Liver Panel Stat Lab 07/24/21 05:46 Results Magnesium Stat Lab 07/24/21 05:46 Results Procalcitonin Stat Lab 07/24/21 05:46 Results T4 (Thyroxine) Stat Lab 07/24/21 05:46 Results TSH [Thyroid Stimulating Hormone] Stat Lab 07/24/21 05:46 Results Troponin I Q3H Lab 07/24/21 08:45 Ordered Troponin I Q3H Lab 07/24/21 11:45 Ordered T
[2021-07-24 06:39] LABS: Basophils % 0.3 % (0.1-2.0); Eosinophils # 0.1 K/mm3 (0.0-0.4); Eosinophils % 1.3 % (0.1-12.0); Hematocrit 33.1 % (37.0-47.0); Hemoglobin 10.2 g/dL (12.2-16.2); Lymphocytes # 0.8 K/mm3 (0.7-4.5); Lymphocytes % 19.5 % (10-50); Mean Corpuscular HGB Conc 30.8 g/dL (31.8-35.4); Mean Corpuscular Hemoglobin 28.9 pg (27.0-31.2); Mean Platelet Volume 8.2 fl (7.4-10.4); Monocytes # 0.4 K/mm3 (0.1-1.0); Monocytes % 9.7 % (1.7-9.3); Neutrophils % 69.2 % (37.0-80.0); Platelet Count 185 K/mm3 (142-424); Red Blood Count 3.52 M/mm3 (4.20-5.40); White Blood Count 4.4 K/mm3 (4.8-10.8)
[2021-07-24 06:50] LABS: Lactic Acid 1.4 mmol/L (0.7-2.1)
[2021-07-24 06:58] LABS: Chloride 104 mmol/L (98-107)
[2021-07-24 06:59] LABS: Potassium 3.5 mmoL/L (3.5-5.1); Sodium 140 mmol/L (136-145)
[2021-07-24 07:01] LABS: Alanine Aminotransferase 31 U/L (12-78); Aspartate Amino Transferase 50 U/L (14-36); Bilirubin,Direct 0.3 mg/dl (0.0-0.4); Bilirubin,Indirect 0.2 mg/dL (0.0-0.9); Bilirubin,Total 0.5 mg/dl (0.2-1.3); Bilirubin,Unconjugated 0.3 mg/dL (0.0-1.1); Blood Urea Nitrogen 20 mg/dl (7-17); Creatinine Clearance Estimated 23 mL/min (50-200); Estimated Glomerular Filt Rate 15 ml/min (>60); GFR (African American) 18 ML/MIN (>60)
[2021-07-24 07:02] LABS: Albumin Level 3.6 g/dl (3.5-5.0); Alkaline Phosphatase 181 U/L (38-126); Anion Gap 9.5 mEq/L (5-15); Carbon Dioxide 30 mmol/L (22.0-30.0); Glucose 114 mg/dl (74-100); Magnesium 2.4 mg/dl (1.6-2.3); Total Protein,Serum 6.1 g/dl (6.3-8.2)
[2021-07-24 07:07] LABS: C-Reactive Protein 8.7 mg/L (0-4)
[2021-07-24 07:14] LABS: NT Pro Brain Natriuretic Pep. 6470 pg/mL (0-125)
[2021-07-24 07:17] LABS: Troponin I 0.04 ng/ml (0.00-0.034)
[2021-07-24 07:21] LABS: T4 (Thyroxine) 9.1 ug/dl (5.53-11.0)
[2021-07-24 07:35] LABS: Thyroid Stimulating Hormone 2.03 uIU/mL (0.465-4.68)
[2021-07-24 07:38] LABS: Erythrocyte Sedimentation Rate 20 mm/hr (0-30)
[2021-07-24 08:00] VITALS: BP 169/93; PULSE 80; RESP 18; TEMP 36.7; O2SAT 97
[2021-07-24 09:25] LABS: Coronavirus 19, PCR Not Detected (NotDetected); Influenza A, PCR Not Detected (NotDetected); Influenza B, PCR Not Detected (NotDetected)
== END 2021-07-24 08:00 | disposition home or self-care (01) ==
PROVIDERS: Emergency Provider Emergency Medicine; PCP Family Medicine
DX: N18.6 End stage renal disease (principal); Z99.2 Dependence on renal dialysis; R07.2 Precordial pain; Z79.899 Other long term (current) drug therapy; I48.91 Unspecified atrial fibrillation; I50.9 Heart failure, unspecified; E11.9 Type 2 diabetes mellitus without complications; E78.5 Hyperlipidemia, unspecified; I10 Essential (primary) hypertension; J84.9 Interstitial pulmonary disease, unspecified; Z95.0 Presence of cardiac pacemaker; Z99.81 Dependence on supplemental oxygen
CPT/HCPCS: 71046; 80048; 80076; 83605; 83735; 83880; 84145; 84436; 84443; 84484; 85025; 85651; 86140; 87040; 93005; 96374; 96375; 99283; C9803; U0003; U0005

== ENCOUNTER 2021-08-06 09:29 | Emergency (ER) | payer MEDICARE, SELFPAY ==
[2021-08-06] VITALS (10 sets, daily range): BP systolic 108–173; BP diastolic 59–102; PULSE 70–82; RESP 16–26; TEMP 36.8; O2SAT 92–100; BMI 30.3
--- NOTE | 2021-08-06 09:39 | ECG_ITS ---
APPROVED REPORT Exam: Resting ECG HR:103 bpm ECG Measurements Heart Rate 103 AXES NM 224 P 62 QRSd 106 QRS -56 QT 402 T 82 QTc 526 Conclusion Sinus rhythm with 1st degree AV block with occasional and consecutive premature ventricular complexes Left axis deviation Incomplete left bundle branch block Abnormal ECG Electronically signed by : Rafi Nesbitt MD 08/07/2021 09:13:01
--- NOTE | 2021-08-06 09:41 | HMH.EDGENADL ---
ED Disposition Clinical Impression: Acute decompensated heart failure Disposition: Xfer Short-Term Hosp Condition on Discharge: Fair Referrals: Rafi Albrecht MD [Primary Care Provider] - - Critical Care Critical Care Time: No Attestation: On 08/06/21, the high probability of a clinically significant, sudden or life threatening deterioration of the following system(s) required my full and direct attention, intervention and personal management. The time I documented below is in addition to time spent performing reported procedures but includes the following listed in this critical care notation. Medical Decision Making - Medical Records Medical records reviewed: Yes: I reviewed the patient's medical records. - Rudy Inquiry Pt receiving controlled substance: No Vital Signs: 08/06/21 09:48 08/06/21 10:30 08/06/21 11:01 Temperature 98.2 F Temperature Source Oral Pulse Rate 75 74 Pulse Rate [Left Radial] 82 Respiratory Rate 18 26 H 21 Blood Pressure 130/83 108/81 L Blood Pressure [Left Arm] 173/99 H Blood Pressure Mean 110 90 Blood Pressure Mean [Left Arm] 123 Blood Pressure Source [Left Arm] Automatic Cuff Blood Pressure Position [Left Arm] Supine 02 Sat by Pulse Oximetry 92 L 93 L 94 L Oxygen Delivery Method Room Air Room Air Oxygen Flow Rate (LPM) 08/06/21 12:34 08/06/21 13:00 Temperature Temperature Source Pulse Rate 81 76 Pulse Rate [Left Radial] Respiratory Rate 17 16 Blood Pressure 125/102 H 153/95 H Blood Pressure [Left Arm] Blood Pressure Mean 108 138 Blood Pressure Mean [Left Arm] Blood Pressure Source [Left Arm] Blood Pressure Position [Left Arm] 02 Sat by Pulse Oximetry 100 99 Oxygen Delivery Method Nasal Cannula Oxygen Flow Rate (LPM) 2 - Lab Data Lab Results 08/06/21 10:04: Sodium 139, Potassium 3.5, Chloride 101, Carbon Dioxide 31 H, Anion Gap 10.5, BUN 11, Creatinine 2.60 H, Estimated Creat Clear 28, Estimated GFR 18 L*, Est GFR ( Amer) 22 L, Glucose 107 H, Calcium 8.3 L, Total Bilirubin 1.2, AST 54 H, ALT 29, Alkaline Phosphatase 167 H, Total Protein 6.5, Albumin 3.7, Globulin 2.8, Albumin/Globulin Ratio 1.3 08/06/21 10:04: D-Dimer 1.44 H 08/06/21 10:04: Troponin I 0.05 H, NT-Pro-B Natriuret Pep 99897 H 08/06/21 10:04: WBC 5.2, RBC 3.59 L, Hgb 10.5 L, Hct 34.5 L, MCV 96.3, MCH 29.2, MCHC 30.3 L, RDW 16.1, Plt Count 235, MPV 7.4, Neut % (Auto) 72.5, Lymph % (Auto) 18.6, [place] % (Auto) 6.8, Eos % (Auto) 1.7, Baso % (Auto) 0.5, Neut # (Auto) 3.8, Lymph # (Auto) 1.0, [place] # (Auto) 0.4, Eos # (Auto) 0.1, Baso # (Auto) 0.0 Result diagrams: 08/06/21 10:04 08/06/21 10:04 Orders (Tests/Meds): ED MEDICATIONS Generic Name Dose Route Start Last Admin Trade Name Freq PRN Reason Stop Dose Admin Carvedilol 12.5 mg 08/06/21 21:00 08/06/21 10:44 Carvedilol 12.5mg Tablet PO 09/05/21 20:59 12.5 mg BID SHENG Administration ORDERS Category Date Time Status CT angio chest PE protocol Stat Cat Scan 08/06/21 11:12 Ordered Troponin I Q3H Lab 08/06/21 13:00 Received Troponin I Q3H Lab 08/06/21 16:00 Ordered - Radiology Data #1 Image(s): Chest Image Reviewed: Yes I reviewed the patient's radiology results, Yes I reviewed the patient's radiology image FINDINGS: There is cardiomegaly without failure. Bipolar pacemaker is present from left subclavian approach. Overall increased density in the right mid lower lung zone which may be related overlying soft tissue attenuation. The. Upright PA and lateral chest may confirm. Surgical clips are present along the right humerus medially No acute bony abnormalities. IMPRESSION: Cardiomegaly. No definite acute finding. Medical Decision Narrative: Torri is a 70-year-old female with history of end-stage renal disease on hemodialysis, 2.5 L of O2 during sleep, ICD, diabetes mellitus and congestive heart failure is presenting for worsening dyspnea, especially with exerti
--- NOTE | 2021-08-06 09:56 | XR_ITS ---
PROCEDURE: XR CHEST PORTABLE CLINICAL HISTORY: dyspnea COMPARISON: CR XR CHEST PORTABLE from 07/28/[address] CHEST WO CON from 08/07/2019 CR XR CHEST PORTABLE from 08/07/2019 CR XR CHEST 2V from 11/29/2020 CR XR CHEST 2V from 05/27/2021 CR XR CHEST 2V from 07/24/2021 FINDINGS: There is cardiomegaly without failure. Bipolar pacemaker is present from left subclavian approach. Overall increased density in the right mid lower lung zone which may be related overlying soft tissue attenuation. The. Upright PA and lateral chest may confirm. Surgical clips are present along the right humerus medially No acute bony abnormalities. IMPRESSION: Cardiomegaly. No definite acute finding. Dictated by: Micha Coronel MD 08/06/2021 10:30 Micha Coronel MD in [place] 08/06/2021 10:30
[2021-08-06 10:16] LABS: Basophils % 0.5 % (0.1-2.0); Eosinophils # 0.1 K/mm3 (0.0-0.4); Eosinophils % 1.7 % (0.1-12.0); Hematocrit 34.5 % (37.0-47.0); Hemoglobin 10.5 g/dL (12.2-16.2); Lymphocytes % 18.6 % (10-50); Mean Corpuscular HGB Conc 30.3 g/dL (31.8-35.4); Mean Corpuscular Hemoglobin 29.2 pg (27.0-31.2); Mean Corpuscular Volume 96.3 fl (81-99); Mean Platelet Volume 7.4 fl (7.4-10.4); Monocytes # 0.4 K/mm3 (0.1-1.0); Monocytes % 6.8 % (1.7-9.3); Neutrophils # 3.8 K/mm3 (1.8-7.8); Neutrophils % 72.5 % (37.0-80.0); Platelet Count 235 K/mm3 (142-424); Red Blood Count 3.59 M/mm3 (4.20-5.40); Red Cell Distribution Width 16.1 % (11.5-17.5); White Blood Count 5.2 K/mm3 (4.8-10.8)
[2021-08-06 10:21] LABS: Chloride 101 mmol/L (98-107); Potassium 3.5 mmoL/L (3.5-5.1); Sodium 139 mmol/L (136-145)
[2021-08-06 10:24] LABS: Alanine Aminotransferase 29 U/L (12-78); Albumin Level 3.7 g/dl (3.5-5.0); Albumin/Globulin Ratio 1.3 (1.1-1.8); Alkaline Phosphatase 167 U/L (38-126); Anion Gap 10.5 mEq/L (5-15); Aspartate Amino Transferase 54 U/L (14-36); Bilirubin,Total 1.2 mg/dl (0.2-1.3); Blood Urea Nitrogen 11 mg/dl (7-17); Calcium 8.3 mg/dl (8.4-10.2); Carbon Dioxide 31 mmol/L (22.0-30.0); Creatinine Clearance Estimated 28 mL/min (50-200); Estimated Glomerular Filt Rate 18 ml/min (>60); GFR (African American) 22 ML/MIN (>60); Globulin 2.8 g/dL (1.3-3.2); Glucose 107 mg/dl (74-100); Total Protein,Serum 6.5 g/dl (6.3-8.2)
[2021-08-06 10:29] LABS: D-Dimer 1.44 ug/mL (0.0-0.5)
[2021-08-06 10:35] LABS: NT Pro Brain Natriuretic Pep. 12100 pg/mL (0-125)
[2021-08-06 10:38] LABS: Troponin I 0.05 ng/ml (0.00-0.034)
--- NOTE | 2021-08-06 10:50 | PC.NURSE ---
Got pt a ice water and is sitting up in bed comfortably. She didn't want anything else. Will continue to monitor.
--- NOTE | 2021-08-06 11:25 | PC.NURSE ---
outpt nursing staff at attempting u/s guided IV to obtain 20g IV for PE study
--- NOTE | 2021-08-06 11:49 | PC.NURSE ---
per Radiology staff they can not give pt contrast for CT r/t creat and gfr notified ER
--- NOTE | 2021-08-06 11:52 | PC.NURSE ---
Spoke with horacio at ct stated that pt has elevated creat. is 2.6, and GFR is 18. They are unable to do contrast. Notified .
--- NOTE | 2021-08-06 12:03 | PC.NURSE ---
calling [facility] for transfer
--- NOTE | 2021-08-06 12:13 | PC.NURSE ---
Gave regular tray to pt she is eating.
--- NOTE | 2021-08-06 12:51 | PC.NURSE ---
Called Radiology for a disk.
--- NOTE | 2021-08-06 13:31 | PC.NURSE ---
Pt is resting comfortably in bed. Will continue to monitor.
--- NOTE | 2021-08-06 13:50 | PC.NURSE ---
[facility] aware of pt transfer to [facility], waiting on an available truck to transfer pt.
[2021-08-06 15:14] LABS: Troponin I 0.05 ng/ml (0.00-0.034)
--- NOTE | 2021-08-06 15:39 | PC.NURSE ---
Called at 1520 report into shannan VALLE at [facility].
== END 2021-08-06 16:12 | disposition short-term general hospital (02) ==
PROVIDERS: Emergency Provider Emergency Medicine; PCP Family Medicine
DX: I50.33 Acute on chronic diastolic (congestive) heart failure (principal); N18.6 End stage renal disease; Z99.2 Dependence on renal dialysis; I48.0 Paroxysmal atrial fibrillation; E11.9 Type 2 diabetes mellitus without complications; E78.5 Hyperlipidemia, unspecified; I10 Essential (primary) hypertension; E03.9 Hypothyroidism, unspecified
CPT/HCPCS: 71045; 80053; 83880; 84484; 85025; 85378; 93005; 99284

== ENCOUNTER 2021-08-21 15:09 | Emergency (ER) | payer MEDICARE, SELFPAY ==
--- NOTE | 2021-08-21 15:10 | ECG_ITS ---
APPROVED REPORT Exam: Resting ECG HR:100 bpm ECG Measurements Heart Rate 100 AXES MT 182 P 80 QRSd 104 QRS -51 QT 418 T 78 QTc 539 Conclusion Demand pacemaker, interpretation is based on intrinsic rhythm Sinus rhythm with occasional and consecutive premature ventricular complexes with junctional escape complexes Left axis deviation Pulmonary disease pattern Moderate voltage criteria for LVH, may be normal variant Prolonged QT Abnormal ECG Electronically signed by : Rafi Nesbitt MD 08/21/2021 22:13:18
--- NOTE | 2021-08-21 15:12 | XR_ITS ---
PROCEDURE INFORMATION: Exam: XR Chest Exam date and time: 08/21/2021 3:12 PM Age: 70 years old Clinical indication: Pain; Chest pressure; Prior surgery; Surgery date: 6+ months; Surgery type: 1 year ago pacemaker; Additional info: Cough TECHNIQUE: Imaging protocol: XR of the chest. Views: 1 view. COMPARISON: CR XR CHEST PORTABLE 08/06/2021 10:07 AM FINDINGS: Tubes, catheters and devices: Cardiac pulse generator leads are unchanged in position. Lungs: Unremarkable. No consolidation. Pleural spaces: Unremarkable. No pleural effusion. No pneumothorax. Heart/Mediastinum: Cardiomegaly. Vasculature: Mild aortic tortuosity and atherosclerotic calcification. Bones/joints: Unremarkable. IMPRESSION: No acute findings.
[2021-08-21 15:16] VITALS: BP 103/86; PULSE 64; RESP 16; TEMP 36.7; O2SAT 100; BMI 30.2
--- NOTE | 2021-08-21 15:25 | HMH.EDCP ---
ED Disposition Clinical Impression: Nonspecific chest pain Disposition: Home, Self-Care Condition on Discharge: Good Instructions: DI for Atypical Chest Pain Referrals: Rafi Albrecht MD [Primary Care Provider] - - Critical Care Critical Care Time: No Attestation: On 08/21/21, the high probability of a clinically significant, sudden or life threatening deterioration of the following system(s) required my full and direct attention, intervention and personal management. The time I documented below is in addition to time spent performing reported procedures but includes the following listed in this critical care notation. Medical Decision Making - Medical Records Medical records reviewed: Yes: I reviewed the patient's medical records. - Rudy Inquiry Pt receiving controlled substance: Yes Rudy was queried for this patient: No Reason not queried -: Rudy system downtime Risks and benefits of using a controlled substance: were discussed with pt by me Vital Signs: 08/21/21 15:16 08/21/21 16:00 08/21/21 16:31 Temperature 98.1 F Temperature Source Oral Pulse Rate 84 77 Pulse Rate [Left Radial] 64 Respiratory Rate 16 22 22 Blood Pressure 91/68 L 118/72 Blood Pressure [Right Arm] 103/86 L Blood Pressure Mean [Right Arm] 91 Blood Pressure Source [Right Arm] Automatic Cuff Blood Pressure Position [Right Arm] Sitting 02 Sat by Pulse Oximetry 100 100 100 Oxygen Delivery Method Room Air 08/21/21 17:00 Temperature Temperature Source Pulse Rate 73 Pulse Rate [Left Radial] Respiratory Rate 24 Blood Pressure 115/75 Blood Pressure [Right Arm] Blood Pressure Mean [Right Arm] Blood Pressure Source [Right Arm] Blood Pressure Position [Right Arm] 02 Sat by Pulse Oximetry 100 Oxygen Delivery Method - Lab Data Lab Results 08/21/21 15:35: WBC 5.3, RBC 4.02 L, Hgb 11.7 L, Hct 38.1, MCV 94.7, MCH 29.2, MCHC 30.8 L, RDW 16.0, Plt Count 247, MPV 8.0, Neut % (Auto) 62.7, Lymph % (Auto) 23.3, [place] % (Auto) 11.6 H, Eos % (Auto) 1.8, Baso % (Auto) 0.5, Neut # (Auto) 3.3, Lymph # (Auto) 1.2, [place] # (Auto) 0.6, Eos # (Auto) 0.1, Baso # (Auto) 0.0 08/21/21 15:35: Sodium 137, Potassium 4.0, Chloride 98, Carbon Dioxide 32 H, Anion Gap 11.0, BUN 6 L, Creatinine 2.20 H, Estimated Creat Clear 32, Estimated GFR 22 L, Est GFR ( Amer) 27 L, Glucose 109 H, Calcium 8.9, Total Bilirubin 0.7, AST 36, ALT 29, Alkaline Phosphatase 231 H, Troponin I 0.02, Total Protein 7.2, Albumin 4.2, Globulin 3.0, Albumin/Globulin Ratio 1.4 08/21/21 17:45: Troponin I 0.02 Result diagrams: 08/21/21 15:35 08/21/21 15:35 Orders (Tests/Meds): ED MEDICATIONS Discontinued Medications Generic Name Dose Route Start Last Admin Trade Name Freq PRN Reason Stop Dose Admin Aspirin 324 mg 08/21/21 15:21 08/21/21 15:32 Aspirin 81mg Chewable Tablet PO 08/21/21 15:22 Not Given ONCE ONE Morphine Sulfate 4 mg 08/21/21 15:12 08/21/21 15:24 Morphine 4mg/Ml Syringe IV 08/21/21 15:13 4 mg ONCE ONE Administration Ondansetron HCl 4 mg 08/21/21 15:12 08/21/21 15:24 Ondansetron 4mg/2ml Vial IV 08/21/21 15:13 4 mg ONCE ONE Administration ORDERS Category Date Time Status Troponin I Q3H Lab 08/21/21 21:15 Ordered - Radiology Data #1 Image(s): Chest Image Reviewed: Yes I reviewed the patient's radiology results, Yes I reviewed the patient's radiology image, Yes I have reviewed radiologist's interpretation Preliminary Findings: Normal/NAD - ECG Data Tracing #1 I reviewed this ECG and interpreted as documented below: No ventricular rate of 76 bpm, nonspecific ST changes, right axis deviation ECG initial impression date: 08/21/21 ECG initial impression time: 15:20 - Reevaluation(s) Time: 18:43 Reevaluation #1: On reevaluation, the patient is pain-free. Hemodynamically stable. Negative troponins. Patient will follow up with her primary e learning manager. Given strict ret
--- NOTE | 2021-08-21 15:36 | PC.NURSE ---
aspirin not given. aspirin given in route per ems
[2021-08-21 15:42] LABS: Basophils % 0.5 % (0.1-2.0); Eosinophils # 0.1 K/mm3 (0.0-0.4); Eosinophils % 1.8 % (0.1-12.0); Hematocrit 38.1 % (37.0-47.0); Hemoglobin 11.7 g/dL (12.2-16.2); Lymphocytes # 1.2 K/mm3 (0.7-4.5); Lymphocytes % 23.3 % (10-50); Mean Corpuscular HGB Conc 30.8 g/dL (31.8-35.4); Mean Corpuscular Hemoglobin 29.2 pg (27.0-31.2); Mean Corpuscular Volume 94.7 fl (81-99); Monocytes # 0.6 K/mm3 (0.1-1.0); Monocytes % 11.6 % (1.7-9.3); Neutrophils # 3.3 K/mm3 (1.8-7.8); Neutrophils % 62.7 % (37.0-80.0); Platelet Count 247 K/mm3 (142-424); Red Blood Count 4.02 M/mm3 (4.20-5.40); White Blood Count 5.3 K/mm3 (4.8-10.8)
[2021-08-21 15:53] LABS: Alanine Aminotransferase 29 U/L (12-78); Albumin Level 4.2 g/dl (3.5-5.0); Albumin/Globulin Ratio 1.4 (1.1-1.8); Alkaline Phosphatase 231 U/L (38-126); Aspartate Amino Transferase 36 U/L (14-36); Bilirubin,Total 0.7 mg/dl (0.2-1.3); Blood Urea Nitrogen 6 mg/dl (7-17); Calcium 8.9 mg/dl (8.4-10.2); Carbon Dioxide 32 mmol/L (22.0-30.0); Chloride 98 mmol/L (98-107); Creatinine Clearance Estimated 32 mL/min (50-200); Estimated Glomerular Filt Rate 22 ml/min (>60); GFR (African American) 27 ML/MIN (>60); Glucose 109 mg/dl (74-100); Sodium 137 mmol/L (136-145); Total Protein,Serum 7.2 g/dl (6.3-8.2)
[2021-08-21 16:00] VITALS: BP 91/68; PULSE 84; RESP 22; O2SAT 100
[2021-08-21 16:04] LABS: Troponin I 0.02 ng/ml (0.00-0.034)
[2021-08-21 16:31] VITALS: BP 118/72; PULSE 77; RESP 22; O2SAT 100
[2021-08-21 17:00] VITALS: BP 115/75; PULSE 73; RESP 24; O2SAT 100
[2021-08-21 18:05] LABS: Troponin I 0.02 ng/ml (0.00-0.034)
[2021-08-21 19:04] VITALS: BP 110/87; PULSE 74; RESP 20; TEMP 36.9; O2SAT 95
== END 2021-08-21 19:05 | disposition home or self-care (01) ==
PROVIDERS: Emergency Provider Emergency Medicine; PCP Family Medicine
DX: R07.89 Other chest pain (principal); D86.0 Sarcoidosis of lung; I27.21 Secondary pulmonary arterial hypertension; I48.91 Unspecified atrial fibrillation; I50.9 Heart failure, unspecified; E11.9 Type 2 diabetes mellitus without complications; E78.5 Hyperlipidemia, unspecified; E03.9 Hypothyroidism, unspecified; Z79.899 Other long term (current) drug therapy
CPT/HCPCS: 36415; 71045; 80053; 84484; 85025; 93005; 96374; 96375; 99283; J2405

== ENCOUNTER → 2022-02-10 08:11 | Outpatient (CLI) | payer MEDICARE, SELFPAY | PROVIDERS: Visit Provider Internal Medicine Advanced Heart Failure and Transplant Cardiology | DX: D86.85 Sarcoid myocarditis (principal); I27.20 Pulmonary hypertension, unspecified | CPT/HCPCS: C9803; U0003; U0005 ==

== ENCOUNTER 2022-02-19 04:14 | Emergency (ER) | payer MEDICARE, SELFPAY ==
[2022-02-19 04:15] VITALS: BP 152/119; PULSE 62; RESP 18; TEMP 36.9; O2SAT 99; BMI 29.9
--- NOTE | 2022-02-19 04:25 | CT_ITS ---
PROCEDURE INFORMATION: Exam: CT Abdomen And Pelvis Without Contrast Exam date and time: 02/19/2022 4:34 AM Age: 71 years old Clinical indication: Abdominal pain; Localized; Left; Prior surgery; Surgery date: 6+ months; Surgery type: Gb appendix; Patient HX: Diabetic; Additional info: Abd pain TECHNIQUE: Imaging protocol: Computed tomography of the abdomen and pelvis without contrast. Radiation optimization: All CT scans at this facility use at least one of these dose optimization techniques: automated exposure control; mA and/or kV adjustment per patient size (includes targeted exams where dose is matched to clinical indication); or iterative reconstruction. COMPARISON: CT ABDOMEN PELVIS WO CON 11/29/2020 4:53 AM FINDINGS: Detailed evaluation of the abdominal and pelvic viscera is somewhat limited in the absence of intravenous contrast. Inferior thorax: Hiatal hernia. Cardiomegaly with coronary artery and mitral annular calcifications. Interstitial prominence and mild airspace disease. Trace pleural effusions. Liver: Inhomogeneous attenuation, calcifications, and lobulated morphology of the liver in a pattern of cirrhosis. Note evaluation of focal parenchymal pathology is somewhat limited in the absence of contrast. Gallbladder and bile ducts: Status post cholecystectomy. Pancreas: No pancreatic mass or ductal dilatation. Spleen: Granulomata in the borderline enlarged spleen. Adrenal glands: Unremarkable adrenals. Kidneys and ureters: Renal atrophy. Mild left hydronephrosis. Stomach and bowel: Questionable wall thickening in the nondistended stomach and rectum. Colonic dilatation and prominent stool. Diverticula, without pericolonic inflammation. Appendix: No acute appendicitis. Intraperitoneal space: No significant free fluid. Vasculature: Vascular ectasia and calcification. Lymph nodes: Subcentimeter lymph nodes. Urinary bladder: Nondistended bladder. Reproductive: Calcifications in the enlarged postmenopausal uterus. Bones/joints: Chronic compression fractures. Scoliosis, degenerative change, and disc bulging. Soft tissues: Infiltration of subcutaneous fat about the umbilicus. Subcutaneous edema. IMPRESSION: 1. Cirrhosis. 2. Mild left hydronephrosis. 3. Enlarged postmenopausal uterus. 4. Additional findings as described above.
[2022-02-19 04:50] LABS: Basophils # 0.1 K/mm3 (0-0.2); Basophils % 1.3 % (0.1-2.0); Eosinophils # 0.1 K/mm3 (0.0-0.4); Eosinophils % 2.1 % (0.1-12.0); Hematocrit 35.5 % (37.0-47.0); Lymphocytes # 0.9 K/mm3 (0.7-4.5); Lymphocytes % 16.3 % (10-50); Mean Corpuscular HGB Conc 30.9 g/dL (31.8-35.4); Mean Corpuscular Hemoglobin 29.1 pg (27.0-31.2); Mean Corpuscular Volume 94.1 fl (81-99); Mean Platelet Volume 8.2 fl (7.4-10.4); Monocytes # 0.5 K/mm3 (0.1-1.0); Monocytes % 9.1 % (1.7-9.3); Neutrophils % 71.2 % (37.0-80.0); Platelet Count 230 K/mm3 (142-424); Red Blood Count 3.78 M/mm3 (4.20-5.40); Red Cell Distribution Width 16.3 % (11.5-17.5); White Blood Count 5.6 K/mm3 (4.8-10.8)
[2022-02-19 05:01] LABS: Alanine Aminotransferase 35 U/L (12-78); Albumin/Globulin Ratio 1.4 (1.1-1.8); Alkaline Phosphatase 267 U/L (38-126); Amylase 73 U/L (30-110); Anion Gap 12.5 mEq/L (5-15); Aspartate Amino Transferase 33 U/L (14-36); Bilirubin,Total 0.8 mg/dl (0.2-1.3); Blood Urea Nitrogen 31 mg/dl (7-17); Calcium 8.8 mg/dl (8.4-10.2); Carbon Dioxide 30 mmol/L (22.0-30.0); Chloride 100 mmol/L (98-107); Creatinine Clearance Estimated 16 mL/min (50-200); Estimated Glomerular Filt Rate 10 ml/min (>60); Globulin 2.9 g/dL (1.3-3.2); Glucose 135 mg/dl (74-100); Lipase 62 U/L (23-300); Potassium 3.5 mmoL/L (3.5-5.1); Sodium 139 mmol/L (136-145); Total Protein,Serum 6.9 g/dl (6.3-8.2)
[2022-02-19 05:07] LABS: C-Reactive Protein 12.3 mg/L (0-4)
[2022-02-19 05:09] LABS: GFR (African American) 12 ML/MIN (>60)
[2022-02-19 05:15] LABS: Erythrocyte Sedimentation Rate 40 mm/hr (0-30)
[2022-02-19 05:18] LABS: Procalcitonin 1.73 ng/mL (0.0-2.0)
[2022-02-19 05:59] VITALS: BP 177/103; O2SAT 96
[2022-02-19 06:05] VITALS: BP 198/104; O2SAT 94
[2022-02-19 06:08] LABS: Microscopic, Urine URINE MICROSCOPIC (MICROSCOPIC)
[2022-02-19 06:10] LABS: Appearance,Urine CLEAR (Clear); Bilirubin,Urine Negative (Negative); Blood, Urine 2+ (Negative); Color,Urine YELLOW (Yellow); Glucose,Urine (UA) Negative (Negative); Ketones,Urine Negative (Negative); Leukocyte Esterase,Urine Negative (Negative); Nitrate,Urine Negative (Negative); PH,Urine 6.5 (5.0-8.5); Protein,Urine TRACE (Negative); Urobilinogen,Urine 0.2 EU/dl (0.2)
--- NOTE | 2022-02-19 06:10 | HMH.EDNVD ---
ED Disposition Clinical Impression: ESRD (end stage renal disease) on dialysis Abdominal pain Qualifiers: Abdominal location: left lower quadrant Qualified Code(s): R10.32 - Left lower quadrant pain Disposition: Home, Self-Care Condition on Discharge: Good Instructions: DI for Acute Abdominal Pain Additional Instructions: see pcp for follow up Referrals: Aldo Juarez MD [Primary Care Provider] - - Critical Care Critical Care Time: No Attestation: On 02/19/22, the high probability of a clinically significant, sudden or life threatening deterioration of the following system(s) required my full and direct attention, intervention and personal management. The time I documented below is in addition to time spent performing reported procedures but includes the following listed in this critical care notation. Medical Decision Making - Medical Records Medical records reviewed: Yes: I reviewed the patient's medical records. - Rudy Inquiry Pt receiving controlled substance: No Vital Signs: 02/19/22 04:15 Temperature 98.4 F Temperature Source Oral Pulse Rate [Right] 62 Respiratory Rate 18 Blood Pressure [Right Arm] 152/119 H Blood Pressure Mean [Right Arm] 130 02 Sat by Pulse Oximetry 99 - Lab Data Lab results reviewed: Yes: I reviewed the patient's lab results. Lab Results 02/19/22 04:32: WBC 5.6, RBC 3.78 L, Hgb 11.0 L, Hct 35.5 L, MCV 94.1, MCH 29.1, MCHC 30.9 L, RDW 16.3, Plt Count 230, MPV 8.2, Neut % (Auto) 71.2, Lymph % (Auto) 16.3, [place] % (Auto) 9.1, Eos % (Auto) 2.1, Baso % (Auto) 1.3, Neut # (Auto) 4.0, Lymph # (Auto) 0.9, [place] # (Auto) 0.5, Eos # (Auto) 0.1, Baso # (Auto) 0.1, ESR 40 H 02/19/22 04:32: Sodium 139, Potassium 3.5, Chloride 100, Carbon Dioxide 30, Anion Gap 12.5, BUN 31 H, Creatinine 4.40 H, Estimated Creat Clear 16, Estimated GFR 10 L*, Est GFR ( Amer) 12 L*, Glucose 135 H, Calcium 8.8, Total Bilirubin 0.8, AST 33, ALT 35, Alkaline Phosphatase 267 H, C-Reactive Protein 12.3 H, Total Protein 6.9, Albumin 4.0, Globulin 2.9, Albumin/Globulin Ratio 1.4, Amylase 73, Lipase 62, Procalcitonin 1.73 02/19/22 06:00: Urine Color Yellow, Urine Appearance Clear, Urine pH 6.5, Ur Specific [place] 1.010, Urine Protein Trace, Urine Glucose (UA) Negative, Urine Ketones Negative, Urine Blood 2+, Urine Nitrate Negative, Urine Bilirubin Negative, Urine Urobilinogen 0.2, Ur Leukocyte Esterase Negative, Urine RBC 10-20, Urine WBC Occasional Result diagrams: 02/19/22 04:32 02/19/22 04:32 Orders (Tests/Meds): ED MEDICATIONS Generic Name Dose Route Start Last Admin Trade Name Freq PRN Reason Stop Dose Admin Sodium Chloride 8 ml 02/19/22 04:27 Sodium Chloride 0.9% 10ml Vial IV 03/21/22 04:26 NEEDED PRN dilute pepcid Discontinued Medications Generic Name Dose Route Start Last Admin Trade Name Freq PRN Reason Stop Dose Admin Famotidine 20 mg 02/19/22 04:27 02/19/22 04:49 Famotidine 20mg/2ml Vial IV 02/19/22 04:28 20 mg ONCE ONE Administration Metoclopramide HCl 10 mg 02/19/22 04:27 02/19/22 04:49 Metoclopramide Hcl 10mg/2ml Vial IVP 02/19/22 04:28 10 mg ONCE ONE Administration Morphine Sulfate 2 mg 02/19/22 06:01 02/19/22 06:02 Morphine 2mg/Ml Syringe IV 02/19/22 06:02 2 mg ONCE ONE Administration Ondansetron HCl 4 mg 02/19/22 04:27 02/19/22 04:49 Ondansetron 4mg/2ml Vial IV 02/19/22 04:28 4 mg ONCE ONE Administration - CT Data CT Scan: Abdomen, Pelvis Time Received: 07:[address] Reviewed: Yes: I have viewed the radiologist's interpretation Preliminary Findings: Abnormal (see report ) Medical Decision Narrative: no def dx at this time and will have pt followu p Nausea/Vomiting/Diarrhea HPI - General Chief complaint: Abdominal Pain Stated complaint: Stomach pain Time Seen by Provider: 02/19/22 05:00 Mode of Arrival: Ambulatory Source of Information: Patient, Medical Record Limitations: No Limitations Descr
[2022-02-19 06:17] LABS: WBC,Urine Occasional #/hpf (0-3)
[2022-02-19 06:30] VITALS: BP 179/113; PULSE 76; O2SAT 99
[2022-02-19 07:44] VITALS: BP 189/96; PULSE 98; RESP 16; O2SAT 94
[2022-02-19 08:00] VITALS: BP 189/94; PULSE 87; RESP 16; TEMP 36.6; O2SAT 96
== END 2022-02-19 08:07 | disposition home or self-care (01) ==
PROVIDERS: Emergency Provider Emergency Medicine; PCP Family Medicine
DX: E11.22 Type 2 diabetes mellitus with diabetic chronic kidney disease (principal); I13.2 Hypertensive heart and chronic kidney disease with heart failure and with stage 5 chronic kidney disease, or end stage renal disease; I50.9 Heart failure, unspecified; N18.6 End stage renal disease; R10.32 Left lower quadrant pain; I49.9 Cardiac arrhythmia, unspecified; I48.91 Unspecified atrial fibrillation; R01.1 Cardiac murmur, unspecified; E78.5 Hyperlipidemia, unspecified; J98.4 Other disorders of lung; Z87.19 Personal history of other diseases of the digestive system; Z95.0 Presence of cardiac pacemaker; Z99.81 Dependence on supplemental oxygen; E03.9 Hypothyroidism, unspecified
CPT/HCPCS: 36415; 74176; 80053; 81001; 82150; 83690; 84145; 85025; 85651; 86140; 96374; 96375; 96376; 99284; J2405

== ENCOUNTER → 2022-04-11 08:46 | Outpatient (CLI) | payer MEDICARE, SELFPAY | PROVIDERS: PCP Family Medicine; Visit Provider Family Medicine | DX: Z20.822 Contact with and (suspected) exposure to COVID-19 (principal) | CPT/HCPCS: C9803; U0003; U0005 ==

== ENCOUNTER → 2022-04-19 07:10 | Outpatient (CLI) | payer MEDICARE, SELFPAY | PROVIDERS: PCP Family Medicine; Visit Provider Internal Medicine Nephrology | DX: N18.4 Chronic kidney disease, stage 4 (severe) (principal) ==

== ENCOUNTER 2022-10-10 23:33 | Emergency (ER) | payer MEDICARE, SELFPAY ==
--- NOTE | 2022-10-10 23:30 | ECG_ITS ---
APPROVED REPORT Exam: Resting ECG HR:84 bpm ECG Measurements Heart Rate 84 AXES LA 234 P -38 QRSd 109 QRS -63 QT 460 T 89 QTc 502 Conclusion ELECTRONIC ATRIAL PACEMAKER LEFT AXIS DEVIATION [QRS AXIS < -30] MODERATE VOLTAGE CRITERIA FOR LVH, CONSIDER NORMAL VARIANT [MEETS CRITERIA IN ONE OF: R(aVL), S(V1), R(V5), R(V5/V6)+S(V1)] POSSIBLE ANTERIOR MYOCARDIAL INFARCTION , OF INDETERMINATE AGE [30 ms Q WAVE IN V3/V4, OR R < 0.2 mV IN V4] ABNORMAL ECG UNCONFIRMED REPORT Electronically signed by : Rafi Nesbitt MD 10/11/2022 20:09:46
[2022-10-10 23:34] VITALS: BP 137/88; PULSE 73; RESP 16; TEMP 36.8; O2SAT 95; BMI 29.6
--- NOTE | 2022-10-10 23:40 | XR_ITS ---
PROCEDURE INFORMATION: Exam: XR Chest Exam date and time: 10/10/2022 11:37 PM Age: 71 years old Clinical indication: Left-sided; Prior surgery; Surgery type: Pacemaker x1.5 years; Patient HX: Intermittent chest pains x2 days; Additional info: Cp TECHNIQUE: Imaging protocol: Radiologic exam of the chest. Views: 2 views. COMPARISON: CR XR CHEST PORTABLE 08/21/2021 3:23 PM FINDINGS: Tubes, catheters and devices: Pacer wires. Lungs: Unremarkable. No consolidation. Pleural spaces: Unremarkable. No pleural effusion. No pneumothorax. Heart/Mediastinum: Mild cardiomegaly. Bones/joints: Unremarkable. IMPRESSION: 1. Mild cardiomegaly. Pacer wires. 2. No infiltrate or pulmonary edema.
--- NOTE | 2022-10-10 23:45 | PC.NURSE ---
Pt gone to RAD
--- NOTE | 2022-10-10 23:47 | HMH.EDCP ---
Discharge Plan Disposition Patient Disposition: Home, Self-Care Prescriptions Prescriptions: No Action ferrous sulfate 250 mg (50 mg iron) tablet extended release 250 mg PO DAILY prednisone 10 mg tablet 10 mg PO DAILY pantoprazole 40 mg tablet,delayed release (DR/EC) 40 mg PO DAILY acetaminophen [Tylenol] 325 mg capsule 325 mg PO QID PRN (Reason: Mild Pain) insulin aspart U-100 100 unit/mL (3 mL) insulin pen 4 unit SQ ACHS insulin glargine 100 unit/mL (3 mL) insulin pen 6 unit SQ DAILY melatonin 5 mg capsule 5 mg PO HS atorvastatin 20 MG tablet 20 mg PO HS folic acid 1 MG tablet 1 mg PO DAILY lactulose 10 GM/15 ML solution 20 gm PO TID sevelamer carbonate 800 MG tablet 800 mg PO TID carvedilol 25 mg tablet 12.5 mg PO BID rifaximin 550 mg tablet 550 mg PO BID Referrals Follow up/Referrals: Aldo Juarez MD [Primary Care Provider] - See instructions Clinical Impressions Clinical Impression: Chest pain, ESRD (end stage renal disease) on dialysis Instructions Patient Instructions: DI for Atypical Chest Pain Discharge ED Provider: Mukesh Jacobo Chest Pain HPI General Chief Complaint: Chest Pain Stated Complaint: CHEST PAIN Time Seen by Provider: 10/10/22 23:47 Mode of Arrival: Ambulatory Source of Information: Patient Limitations: No Limitations Description of Symptoms (Recalled from ER Triage Doc. by RN): pt c/o lt side chest pain that comes and goes since monday. History of Present Illness HPI narrative: sharp brief lt sided chest pain over the last 2 days - fleeting - has hx of ht failure - pt is dailysis pt complaint: chest pain indicative of cardiac Onset (ago): hour(s) Duration: intermittent Activity at onset: during rest Pain location: left chest Severity: moderate Quality: sharp Risk Factors for CAD: Hypertension, Family Hx of CAD and Diabetes Treatments prior to or on arrival for Cardiac Chest Pain: none SIMEON Score for Non-Stemi Age of Patient: 60-69 years old Heart Rate: 50-69 bpm Systolic Blood Pressure: 100-119 mmHg Serum Creatinine: 4.00 mg/dl or higher CHF [place] Class: I-No CHF Other Risk Factors: None Non-Stemi Risk Score: 132 Related Data On Oral Contraceptives: No Home Medications Medication Instructions Recorded Confirmed atorvastatin 20 mg tablet 20 mg PO HS Cholesterol 11/29/20 07/24/21 folic acid 1 mg tablet 1 mg PO DAILY Supplement 11/29/20 07/24/21 lactulose 10 gram/15 mL oral 20 gm PO TID liver 11/29/20 07/24/21 solution sevelamer carbonate 800 mg tablet 800 mg PO TID Kidney failure 11/29/20 07/24/21 acetaminophen 325 mg capsule 325 mg PO QID PRN Mild Pain 03/23/21 07/24/21 (Tylenol) carvedilol 25 mg tablet 12.5 mg PO BID Hypertension 03/23/21 07/24/21 ferrous sulfate 250 mg (50 mg 250 mg PO DAILY Supplement 03/23/21 07/24/21 iron) tablet,extended release insulin aspart U-100 100 unit/mL 4 unit SQ ACHS Diabetes 03/23/21 07/24/21 (3 mL) subcutaneous pen insulin glargine 100 unit/mL (3 6 unit SQ DAILY Diabetes 03/23/21 07/24/21 mL) subcutaneous pen melatonin 5 mg capsule 5 mg PO HS Sleep 03/23/21 07/24/21 pantoprazole 40 mg tablet,delayed 40 mg PO DAILY GERD 03/23/21 07/24/21 release prednisone 10 mg tablet 10 mg PO DAILY . 03/23/21 07/24/21 rifaximin 550 mg tablet 550 mg PO BID unk 03/23/21 07/24/21 Allergies Allergy/AdvReac Type Severity Reaction Status Date / Time No Known Allergies Allergy Verified 03/23/21 15:14 [facility] Disclaimer: The information contained in this section may have been updated after the patient was seen, as this information can be updated by other users. Social History Smoking Status: Never smoker second hand exposure: No alcohol intake: never substance use type: other current occupational status: disabled Travel in the last 8 weeks: None household members: spouse housing: house current occupational exposu
--- NOTE | 2022-10-10 23:50 | PC.NURSE ---
Pt back from RAD
[2022-10-11] VITALS (7 sets, daily range): BP systolic 101–130; BP diastolic 59–79; PULSE 61–73; RESP 16–22; TEMP 36.8; O2SAT 95–97
[2022-10-11 00:33] LABS: Coronavirus 19, PCR Not Detected (NotDetected)
[2022-10-11 00:33] LABS: Basophils % 0.4 % (0.1-2.0); Eosinophils # 0.1 K/mm3 (0.0-0.4); Eosinophils % 1.9 % (0.1-12.0); Hematocrit 36.9 % (37.0-47.0); Hemoglobin 11.9 g/dL (12.2-16.2); Lymphocytes # 0.9 K/mm3 (0.7-4.5); Mean Corpuscular HGB Conc 32.2 g/dL (31.8-35.4); Mean Corpuscular Hemoglobin 29.4 pg (27.0-31.2); Mean Corpuscular Volume 91.2 fl (81-99); Mean Platelet Volume 8.5 fl (7.4-10.4); Monocytes # 0.4 K/mm3 (0.1-1.0); Monocytes % 7.8 % (1.7-9.3); Neutrophils # 3.6 K/mm3 (1.8-7.8); Neutrophils % 71.9 % (37.0-80.0); Platelet Count 202 K/mm3 (142-424); Red Blood Count 4.04 M/mm3 (4.20-5.40); Red Cell Distribution Width 15.3 % (11.5-17.5)
[2022-10-11 00:44] LABS: Anion Gap 10.1 mEq/L (5-15); Blood Urea Nitrogen 33 mg/dl (7-17); Calcium 8.1 mg/dl (8.4-10.2); Carbon Dioxide 31 mmol/L (22.0-30.0); Chloride 101 mmol/L (98-107); Creatinine Clearance Estimated 16 mL/min (50-200); Estimated Glomerular Filt Rate 10 ml/min (>60); GFR (African American) 12 ML/MIN (>60); Glucose 122 mg/dl (74-100); Potassium 3.1 mmoL/L (3.5-5.1); Sodium 139 mmol/L (136-145)
[2022-10-11 00:56] LABS: Troponin I 0.03 ng/ml (0.00-0.034)
[2022-10-11 01:06] LABS: Influenza A, PCR Not Detected (NotDetected); Influenza B, PCR Not Detected (NotDetected)
--- NOTE | 2022-10-11 01:12 | PC.NURSE ---
notified of creat 4.30
[2022-10-11 02:56] LABS: Troponin I 0.02 ng/ml (0.00-0.034)
--- NOTE | 2022-10-11 03:14 | PC.NURSE ---
Dr. Jacobo at updating on results
[2022-10-11 03:53] LABS: NT Pro Brain Natriuretic Pep. 9820 pg/mL (0-125)
== END 2022-10-11 03:43 | disposition home or self-care (01) ==
PROVIDERS: Emergency Provider Emergency Medicine; PCP Family Medicine
DX: R07.9 Chest pain, unspecified (principal); Z20.822 Contact with and (suspected) exposure to COVID-19; N18.6 End stage renal disease; I48.20 Chronic atrial fibrillation, unspecified; R01.1 Cardiac murmur, unspecified; Z79.01 Long term (current) use of anticoagulants; Z79.1 Long term (current) use of non-steroidal anti-inflammatories (NSAID); Z79.4 Long term (current) use of insulin; Z79.52 Long term (current) use of systemic steroids; Z79.899 Other long term (current) drug therapy; Z99.2 Dependence on renal dialysis
CPT/HCPCS: 71046; 80048; 83880; 84484; 85025; 93005; 99284; C9803; U0003; U0005

== ENCOUNTER → 2022-11-04 11:55 | Outpatient (CLI) | payer MEDICARE, SELFPAY ==
--- NOTE | 2022-11-04 11:55 | NM_ITS ---
APPROVED REPORT Exam: Nuclear Stress Test Indication: HTN, DM, HYPERLIPIDEMIA, FM HX, SOB, PALPITATIONS Patient Location: Outpatient Stress Tech: Adwoa Kowalski PR Tech:Cara Heaton ARRT RT (R)(N)(M) Ht: 5 ft 5 in Wt: 178 lbs Bra Size: 46D HR: 70 bpm BP: 173/101 mmHg BSA: 1.88 m2 TID: 1.11 BMI: 29.6 History: HTN, DM, HYPERLIPIDEMIA, FM HX, SOB, PALPITATIONS Procedure: Patient received a 0.4 mg of intravenous Lexiscan, resting heart rate 70 bpm, resting blood pressure 173/101 mmHg, with Lexiscan maximum heart rate achived was 91 bpm which is Less than 85 % of the maximum predicted heart rate and blood pressure was 145/83 mmHg. With Lexiscan, patient denied any complaint of chest pain. Electrocardiogram Resting electrocardiogram showed sinus rhythm with intraventricular conduction delay nonspecific ST-T changes, with Lexiscan there is less than 1.[address] segment depression noted from the baseline EKG. The EKG portion of the Lexiscan is nondiagnostic. Cardiac Stress and Resting SPECT Images: Cardiac Stress and Resting SPECT images were obtained using technetium 99m Myoview 31.6 mCi stress and 10.63 mCi at rest. Gated SPECT analysis of segmental wall motion and calculation of the ejection fraction also done. Prone images were also obtained. Cardiac stress and rest respectively show reversible ischemia involving the anterolateral wall, computer derived ejection fraction is 41% with moderate anterolateral wall hypokinesis, right ventricle is normal size and contractility. Conclusion: 1. The EKG portion of the Lexiscan is nondiagnostic. 2. Scintigraphic evidence of reversible ischemia involving the anterolateral wall, computer derived ejection fraction is 41% with segmental wall motion abnormality described above, right ventricle is normal size and contractility. 3. Abnormal Lexiscan Myoview study. Electronically signed by : Wolfgang Pulido MD 11/04/2022 17:25:42
--- NOTE | 2022-11-04 13:32 | CA_ITS ---
APPROVED REPORT Exam: Pharmacologic Technologist: Adwoa Tavares, Ht: 5 ft 5 in Wt: 179 lbs BSA: 1.89 m2 HR: 70 bpm BP: 173/101 mmHg Medical History Medications: Omeprazole,,,,, Atorvastatin,,,,, Carvedilol,,,,, FOLIC ACID,,,,, Acetaminophen,,,,, Prednisone,,,,, Lactulose,,,,, MeLATONIN,,,,, Furosemide,,,,, INSULIN GLARGINE,,,,, INSULIN ASPART,,,,, RIfaximin,,,,, Stress Test Details Test: AJAY Reason for pharmacologic stress test: physical limitation. HR Resting HR: 79 bpm Max Heart Rate (APMHR): 150.602659 bpm Max HR Achieved: 135 bpm Target HR (85% APMHR): 127.409968 bpm % of APMHR: 90.00 Recovery HR: 84 bpm BP Resting BP: 173/101 mmHg Max BP: 173/101 mmHg Recovery BP: 124.0/79.0 mmHg ECG Resting ECG: SR with PVCs & ventricular couplets Clinical Exercise duration: 04:04 min Highest Stage Achieved: Exercise capacity: 1.0 METs Stress ECG Conclusion Symptoms: no chest pain. No SOA Arrhythmias/Ectopy: Multiple PVCs noted/ PACs noted/ multiple ventricular couplet ST-T Changes: <1.5mm ST segment depression Test Summary REST . . . . . . . Resting REST 17:43 . . 79 . 173/101 . . Stage 1 01:00 . . 87 . . . . Stage 2 01:00 . . 91 . . . . Stage 3 01:00 . . 88 . 145/ 83 . . Stage 4 01:00 . . 86 . 148/ 79 . . Stage 4 01:04 . . 86 . 148/ 79 . Stop exercise at 04:04 RECOVERY 01:00 . . 85 . 132/ 74 . . RECOVERY 02:00 . . 88 . 136/ 76 . . RECOVERY 02:45 . . 84 . 124/ 79 . . Electronically signed by : Wolfgang Pulido MD 11/04/2022 17:23:15
== END ==
LOC: RAD 11:55
PROVIDERS: PCP Family Medicine; Visit Provider Nurse Practitioner
DX: R07.2 Precordial pain; D86.0 Sarcoidosis of lung; I27.21 Secondary pulmonary arterial hypertension; I48.20 Chronic atrial fibrillation, unspecified; I50.42 Chronic combined systolic (congestive) and diastolic (congestive) heart failure; N18.6 End stage renal disease; R60.9 Edema, unspecified; Z79.01 Long term (current) use of anticoagulants; Z99.2 Dependence on renal dialysis
CPT/HCPCS: 78452; 93017; A9502; J2785

== ENCOUNTER 2022-11-16 09:01 | Day surgery (SDC) | payer MEDICARE, SELFPAY ==
[2022-11-16] VITALS (21 sets, daily range): BP systolic 115–182; BP diastolic 60–118; PULSE 70–122; RESP 18–19; O2SAT 95–100; BMI 30.4
--- NOTE | 2022-11-16 07:04 | IR_ITS ---
APPROVED REPORT Patient Location: Outpatient PROCEDURES Left heart catheterization Left ventriculogram Selective coronary angiogram INDICATION Known coronary disease, Accelerated angina pectoris Informed consent was obtained prior to the procedure. COMPLICATIONS None Estimated Blood Loss: Less than 10 mls TECHNIQUE One percent lidocaine was used to anesthetize the right groin. The right femoral artery was accessed via the Seldinger technique. A 4-[place] sheath was placed in the right femoral artery. The JL-4 and JR-4 catheter was also used to perform left heart catheterization left ventriculogram and selective coronary angiogram. At the end of the procedure the patient was transferred to the post-op holding area in stable condition for arterial sheath removal. ANGIOGRAPHIC RESULTS The left main artery Normal The left anterior descending artery Has mild proximal mid vessel luminal irregularities The circumflex artery Proximal and mid vessel luminal irregularities The right coronary artery Is codominant with mild luminal irregularities The OLIVER ventriculogram reveals Dilated ventricle reduced ejection fraction 30 to 35% The left ventricular end-diastolic pressure 10 mmHg IMPRESSION Mild nonflow limiting coronary disease Dilated ventricle with normal left ventricular end-diastolic pressure PLAN 1. Better control of hypertension and maximize antianginal medications Electronically signed by : Luca Kirkland MD 11/16/2022 11:22:21
[2022-11-16 09:43] LABS: Basophils # 0.1 K/mm3 (0-0.2); Basophils % 0.8 % (0.1-2.0); Eosinophils # 0.1 K/mm3 (0.0-0.4); Eosinophils % 2.3 % (0.1-12.0); Hematocrit 41.5 % (37.0-47.0); Hemoglobin 12.8 g/dL (12.2-16.2); Lymphocytes # 0.8 K/mm3 (0.7-4.5); Lymphocytes % 13.1 % (10-50); Mean Corpuscular HGB Conc 30.8 g/dL (31.8-35.4); Mean Corpuscular Hemoglobin 28.4 pg (27.0-31.2); Mean Corpuscular Volume 92.2 fl (81-99); Monocytes # 0.4 K/mm3 (0.1-1.0); Monocytes % 6.5 % (1.7-9.3); Neutrophils # 4.8 K/mm3 (1.8-7.8); Neutrophils % 77.3 % (37.0-80.0); Platelet Count 186 K/mm3 (142-424); Red Cell Distribution Width 15.1 % (11.5-17.5); White Blood Count 6.2 K/mm3 (4.8-10.8)
[2022-11-16 10:05] LABS: Anion Gap 13.1 mEq/L (5-15); Blood Urea Nitrogen 30 mg/dl (7-17); Carbon Dioxide 30 mmol/L (22.0-30.0); Chloride 100 mmol/L (98-107); Creatinine Clearance Estimated 16 mL/min (50-200); Estimated Glomerular Filt Rate 10 ml/min (>60); GFR (African American) 12 ML/MIN (>60); Glucose 139 mg/dl (74-100); Potassium 4.1 mmoL/L (3.5-5.1); Sodium 139 mmol/L (136-145)
== END 2022-11-16 14:17 | disposition home or self-care (01) ==
PROVIDERS: PCP Family Medicine; Visit Provider Internal Medicine
DX: I48.20 Chronic atrial fibrillation, unspecified (principal); I50.31 Acute diastolic (congestive) heart failure; Z79.01 Long term (current) use of anticoagulants; Z79.4 Long term (current) use of insulin; Z95.810 Presence of automatic (implantable) cardiac defibrillator; I27.21 Secondary pulmonary arterial hypertension; N18.6 End stage renal disease; E11.22 Type 2 diabetes mellitus with diabetic chronic kidney disease; I13.2 Hypertensive heart and chronic kidney disease with heart failure and with stage 5 chronic kidney disease, or end stage renal disease
CPT/HCPCS: 80048; 85025; 93458; 99152; C1725; C1769; Q9967

== ENCOUNTER 2023-07-25 09:16 | Emergency (ER) | payer MEDICARE, SELFPAY ==
--- NOTE | 2023-07-25 09:17 | ECG_ITS ---
APPROVED REPORT Exam: Resting ECG HR:80 bpm ECG Measurements Heart Rate 80 AXES IA 238 P -3 QRSd 142 QRS -58 QT 455 T 80 QTc 491 Conclusion ELECTRONIC ATRIAL PACEMAKER LEFT AXIS DEVIATION [QRS AXIS < -30] LEFT BUNDLE BRANCH BLOCK [120+ ms QRS DURATION, 80+ ms Q/S IN V1/V2, 85+ ms R IN I/aVL/V5/V6] ABNORMAL ECG UNCONFIRMED REPORT Electronically signed by : Rafi Nesbitt MD 07/29/2023 11:11:52
[2023-07-25 09:19] VITALS: PULSE 72; RESP 20; TEMP 36.7; O2SAT 97; BMI 29.7
--- NOTE | 2023-07-25 10:02 | XR_ITS ---
FINAL REPORT CLINICAL HISTORY: dyspnea soa x today FINDINGS: A single portable view of the chest was obtained. There is cardiomegaly. A left subclavian ICD is noted. There is pulmonary vascular congestion. Mild right base opacities may represent atelectasis or pneumonia. There is no pneumothorax. IMPRESSION: Mild right base opacities may represent atelectasis or pneumonia. Reviewed, Interpreted and Dictated by Rangel Burk III, MD Transcribed by Olga Lidia Gaxiloa Authenticated and [facility]
--- NOTE | 2023-07-25 10:09 | HMH.EDGENADL ---
Discharge Plan Disposition Patient Disposition: Home, Self-Care Prescriptions Prescriptions: New azithromycin 250 mg tablet See Rx Instructions .ROUTE .COMPLEX Qty: 6 0RF Rx Instructions: For 250 mg dose pack: take 500 mg today (day 1), then 250 mg for 4 days (days 2-5) prednisone 50 mg tablet 50 mg PO DAILY 5 Days Qty: 5 0RF Rx Instructions: Please begin 1 day after ED visit albuterol sulfate 90 mcg/actuation HFA aerosol inhaler 4 inh inhalation Q4H PRN (Reason: shortness of breath or wheezing) Qty: 8.5 0RF Rx Instructions: 4 puffs every 4 hours for 48 hours then as needed for shortness of breath or wheezing following amoxicillin-pot clavulanate 875-125 mg tablet 1 tab PO BID 10 Days Qty: 20 0RF No Action atorvastatin 20 mg tablet 20 mg PO HS Qty: 30 5RF prednisone 10 mg tablet 10 mg PO DAILY acetaminophen [Tylenol] 325 mg capsule 325 mg PO QID PRN (Reason: Mild Pain) insulin aspart U-100 100 unit/mL (3 mL) insulin pen 4 unit SQ ACHS insulin glargine 100 unit/mL (3 mL) insulin pen 6 unit SQ DAILY melatonin 5 mg capsule 5 mg PO HS omeprazole 40 mg capsule,delayed release(DR/EC) 40 mg PO DAILY Patient Comments: TAKE 1 CAPSULE BY MOUTH ONCE DAILY. DO NOT CRUSH OR CHEW furosemide 80 mg tablet 80 mg PO BID Patient Comments: TAKE 1 TABLET BY MOUTH TWICE DAILY folic acid 1 MG tablet 1 mg PO DAILY lactulose 10 GM/15 ML solution 20 g PO TID sevelamer carbonate 800 MG tablet 800 mg PO TID rifaximin 550 mg tablet 550 mg PO BID bisoprolol fumarate 10 mg Tablet 10 mg PO DAILY Qty: 31 0RF Referrals Follow up/Referrals: Aldo Juarez MD [Primary Care Provider] - See instructions Activity Restrictions/Add. Instructions Additional Instructions/Restrictions: Please return with any worsening chest pain or shortness of breath and follow-up with primary care doctor within a few days. Clinical Impressions Clinical Impression: CAP (community acquired pneumonia), Cough, Dyspnea, Chest pain Discharge ED Provider: Bozena Ogden General Adult HPI General Chief complaint: Chest Pain Stated complaint: cp Time Seen by Provider: 07/25/23 10:01 Mode of Arrival: Wheelchair Source of Information: Patient Limitations: No Limitations Description of Symptoms (Recalled from ER Triage Doc. by RN): pt to ed c/o mid sternal chest pain and increased shortness of breath. pt reports mild nausea associated with the pain. pt reports a dull pain in nature. pt reports a cough x2 days. History of Present Illness HPI narrative: Patient is a 72-year-old female with a history of sarcoidosis presenting today with several days of shortness of breath and some substernal chest discomfort. States this is only with exertion she also has had a cough for 2 weeks. She is on low-dose prednisone on a daily basis for an extended period time which is 5 mg. She denies any lower extremity swelling no fevers or chills no hemoptysis no history of DVT or PE. She is currently without symptoms states it only with exertion. Denies any other symptoms such as nausea vomiting diarrhea etc. Related Data Home Medications Medication Instructions Recorded Confirmed folic acid 1 mg tablet 1 mg PO DAILY Supplement 11/29/20 07/25/23 lactulose 10 gram/15 mL oral 20 g PO TID liver 11/29/20 07/25/23 solution sevelamer carbonate 800 mg tablet 800 mg PO TID Kidney failure 11/29/20 07/25/23 acetaminophen 325 mg capsule 325 mg PO QID PRN Mild Pain 03/23/21 07/25/23 (Tylenol) insulin aspart U-100 100 unit/mL 4 unit SQ ACHS Diabetes 03/23/21 07/25/23 (3 mL) subcutaneous pen insulin glargine 100 unit/mL (3 6 unit SQ DAILY Diabetes 03/23/21 07/25/23 mL) subcutaneous pen melatonin 5 mg capsule 5 mg PO HS Sleep 03/23/21 07/25/23 prednisone 10 mg tablet 10 mg PO DAILY . 03/23/21 07/25/23 rifaximin 550 mg tablet 550 mg PO BID unk 03/23/21 07/25/23
[2023-07-25 10:10] LABS: Basophils % 0.3 % (0.1-2.0); Eosinophils # 0.1 K/mm3 (0.0-0.4); Eosinophils % 1.7 % (0.1-12.0); Hematocrit 36.4 % (37.0-47.0); Hemoglobin 11.3 g/dL (12.2-16.2); Lymphocytes # 0.8 K/mm3 (0.7-4.5); Lymphocytes % 13.4 % (10-50); Mean Corpuscular HGB Conc 31.1 g/dL (31.8-35.4); Mean Corpuscular Hemoglobin 30.1 pg (27.0-31.2); Mean Corpuscular Volume 96.7 fl (81-99); Mean Platelet Volume 7.6 fl (7.4-10.4); Monocytes # 0.3 K/mm3 (0.1-1.0); Monocytes % 5.5 % (1.7-9.3); Neutrophils # 4.8 K/mm3 (1.8-7.8); Neutrophils % 79.1 % (37.0-80.0); Platelet Count 166 K/mm3 (142-424); Red Blood Count 3.77 M/mm3 (4.20-5.40); Red Cell Distribution Width 15.1 % (11.5-17.5); White Blood Count 6.1 K/mm3 (4.8-10.8)
[2023-07-25 10:12] LABS: Coronavirus 19, PCR Not Detected (NotDetected); Influenza A, PCR Not Detected (NotDetected); Influenza B, PCR Not Detected (NotDetected)
[2023-07-25 10:13] LABS: Chloride 102 mmol/L (98-107); Sodium 140 mmol/L (136-145)
[2023-07-25 10:14] LABS: Potassium 3.9 mmoL/L (3.5-5.1)
[2023-07-25 10:16] LABS: Alanine Aminotransferase 36 U/L (12-78); Albumin Level 3.7 g/dl (3.5-5.0); Albumin/Globulin Ratio 1.2 (1.1-1.8); Alkaline Phosphatase 242 U/L (38-126); Anion Gap 17.9 mEq/L (5-15); Aspartate Amino Transferase 43 U/L (14-36); Blood Urea Nitrogen 48 mg/dl (7-17); Carbon Dioxide 24 mmol/L (22.0-30.0); Creatinine Clearance Estimated 11 mL/min (50-200); Estimated Glomerular Filt Rate 7 ml/min (>60); GFR (African American) 8 ML/MIN (>60); Globulin 3.1 g/dL (1.3-3.2); Total Protein,Serum 6.8 g/dl (6.3-8.2)
[2023-07-25 10:17] LABS: Calcium 7.7 mg/dl (8.4-10.2); Glucose 145 mg/dl (74-100)
[2023-07-25 10:25] LABS: NT Pro Brain Natriuretic Pep. 11700 pg/mL (0-125)
[2023-07-25 10:28] LABS: Troponin I 0.04 ng/ml (0.00-0.034)
--- NOTE | 2023-07-25 10:32 | PC.NURSE ---
notified of critical creat
--- NOTE | 2023-07-25 10:35 | PC.NURSE ---
pt was given a warm blanket turned light off adjusted head of bed down for pt, call light and luna at bs
[2023-07-25 10:48] LABS: D-Dimer 1.12 ug/mL (0.0-0.5)
[2023-07-25 11:51] VITALS: BP 138/86; PULSE 70; RESP 20; TEMP 36.8; O2SAT 97
== END 2023-07-25 11:52 | disposition home or self-care (01) ==
PROVIDERS: Emergency Provider Student in an Organized Health Care Education/Training Program; PCP Family Medicine
DX: J18.9 Pneumonia, unspecified organism (principal); R07.89 Other chest pain; R05.1 Acute cough; R06.02 Shortness of breath; R94.31 Abnormal electrocardiogram [ECG] [EKG]; D86.9 Sarcoidosis, unspecified; I48.20 Chronic atrial fibrillation, unspecified; Z95.810 Presence of automatic (implantable) cardiac defibrillator; N18.6 End stage renal disease; Z99.2 Dependence on renal dialysis
CPT/HCPCS: 71045; 80053; 83880; 84484; 85025; 85378; 87636; 93005; 99285

== ENCOUNTER 2023-07-26 22:23 | Emergency (ER) | payer MEDICARE, SELFPAY ==
[2023-07-26 22:24] VITALS: BP 159/97; PULSE 91; RESP 18; TEMP 36.6; O2SAT 97; BMI 29.7
--- NOTE | 2023-07-26 22:34 | ECG_ITS ---
APPROVED REPORT Exam: Resting ECG HR:92 bpm ECG Measurements Heart Rate 92 AXES OK 243 P 24 QRSd 132 QRS -55 QT 418 T 87 QTc 468 Conclusion ELECTRONIC ATRIAL PACEMAKER LEFT AXIS DEVIATION [QRS AXIS < -30] LEFT BUNDLE BRANCH BLOCK [120+ ms QRS DURATION, 80+ ms Q/S IN V1/V2, 85+ ms R IN I/aVL/V5/V6] ABNORMAL ECG UNCONFIRMED REPORT Electronically signed by : Rafi Nesbitt MD 07/29/2023 11:06:20
--- NOTE | 2023-07-26 22:54 | XR_ITS ---
PROCEDURE INFORMATION: Exam: XR Chest Exam date and time: 07/26/2023 11:20 PM Age: 72 years old Clinical indication: Shortness of breath; Prior surgery; Surgery date: 6+ months; Surgery type: Pacemaker; Additional info: SOA TECHNIQUE: Imaging protocol: Radiologic exam of the chest. Views: 1 view. COMPARISON: CR XR CHEST PORTABLE 07/25/2023 10:28 AM FINDINGS: Tubes, catheters and devices: A dual lead pacing device enters via the left subclavian vein. Lungs: There is worsening airspace disease in the right mid and lower lung zone. There is mild interstitial prominence throughout the right lung. No focal abnormality of the left lung is noted. Pleural spaces: Very small right pleural effusion is suspected. Heart/Mediastinum: The heart is enlarged. Vasculature: Unremarkable. Bones/joints: Unremarkable. Organs: There is faint oval calcification projecting over the left heart border which may be related to left ventricular wall calcification. IMPRESSION: 1. Right middle lower lung zone airspace disease progressed since the prior study consistent with pneumonia. Very small right effusion. 2. Cardiomegaly with oval calcification projecting over the left heart border which may be related to the left ventricular wall.
--- NOTE | 2023-07-26 23:03 | PC.NURSE ---
RAD in room at this time for chest XRay
--- NOTE | 2023-07-26 23:05 | PC.NURSE ---
in room talking with patient at this time.
[2023-07-26 23:07] LABS: Basophils % 0.1 % (0.1-2.0); Eosinophils % 0.4 % (0.1-12.0); Hematocrit 33.5 % (37.0-47.0); Hemoglobin 11.1 g/dL (12.2-16.2); Lymphocytes # 0.7 K/mm3 (0.7-4.5); Lymphocytes % 7.4 % (10-50); Mean Corpuscular Hemoglobin 30.8 pg (27.0-31.2); Mean Corpuscular Volume 93.3 fl (81-99); Mean Platelet Volume 8.6 fl (7.4-10.4); Monocytes # 0.2 K/mm3 (0.1-1.0); Monocytes % 2.6 % (1.7-9.3); Neutrophils # 8.4 K/mm3 (1.8-7.8); Neutrophils % 89.6 % (37.0-80.0); Platelet Count 186 K/mm3 (142-424); Red Blood Count 3.59 M/mm3 (4.20-5.40); Red Cell Distribution Width 15.6 % (11.5-17.5); White Blood Count 9.4 K/mm3 (4.8-10.8)
[2023-07-26 23:08] LABS: MANUAL DIFFERENTIAL MANUAL DIFFERENTIAL (MANUAL DIFF)
--- NOTE | 2023-07-26 23:14 | HMH.EDGENADL ---
Discharge Plan Disposition Patient Disposition: Xfer Short-Term Hosp Prescriptions Prescriptions: No Action atorvastatin 20 mg tablet 20 mg PO HS Qty: 30 5RF prednisone 10 mg tablet 10 mg PO DAILY acetaminophen [Tylenol] 325 mg capsule 325 mg PO QID PRN (Reason: Mild Pain) insulin aspart U-100 100 unit/mL (3 mL) insulin pen 4 unit SQ ACHS insulin glargine 100 unit/mL (3 mL) insulin pen 6 unit SQ DAILY melatonin 5 mg capsule 5 mg PO HS omeprazole 40 mg capsule,delayed release(DR/EC) 40 mg PO DAILY Patient Comments: TAKE 1 CAPSULE BY MOUTH ONCE DAILY. DO NOT CRUSH OR CHEW furosemide 80 mg tablet 80 mg PO BID Patient Comments: TAKE 1 TABLET BY MOUTH TWICE DAILY folic acid 1 MG tablet 1 mg PO DAILY lactulose 10 GM/15 ML solution 20 g PO TID sevelamer carbonate 800 MG tablet 800 mg PO TID rifaximin 550 mg tablet 550 mg PO BID bisoprolol fumarate 10 mg Tablet 10 mg PO DAILY Qty: 31 0RF azithromycin 250 mg tablet See Rx Instructions .ROUTE .COMPLEX Qty: 6 0RF Rx Instructions: For 250 mg dose pack: take 500 mg today (day 1), then 250 mg for 4 days (days 2-5) prednisone 50 mg tablet 50 mg PO DAILY 5 Days Qty: 5 0RF Rx Instructions: Please begin 1 day after ED visit albuterol sulfate 90 mcg/actuation HFA aerosol inhaler 4 inh inhalation Q4H PRN (Reason: shortness of breath or wheezing) Qty: 8.5 0RF Rx Instructions: 4 puffs every 4 hours for 48 hours then as needed for shortness of breath or wheezing following amoxicillin-pot clavulanate 875-125 mg tablet 1 tab PO BID 10 Days Qty: 20 0RF Referrals Follow up/Referrals: Aldo Juarez MD [Primary Care Provider] - See instructions Clinical Impressions Clinical Impression: ESRD (end stage renal disease) on dialysis, Metabolic acidosis, Respiratory failure Anaphylaxis Qualifiers: Encounter type: initial encounter Qualified Code(s): T78.2XXA - Anaphylactic shock, unspecified, initial encounter Pneumonia Qualifiers: Pneumonia type: due to unspecified organism Laterality: right Lung location: unspecified part of lung Qualified Code(s): J18.9 - Pneumonia, unspecified organism Volume overload Qualifiers: Hypervolemia type: other Qualified Code(s): E87.79 - Other fluid overload Discharge ED Provider: Steven Forman General Adult HPI General Chief complaint: Shortness of Breath/Dyspnea Stated complaint: SOA Time Seen by Provider: 07/26/23 23:01 Mode of Arrival: Wheelchair Source of Information: Patient Limitations: No Limitations Description of Symptoms (Recalled from ER Triage Doc. by RN): Presents to ED with c/o SOA that started yesterday and was seen in the ER but has progressively gotten worse. PMH:CHF. 2L NC uses PRN. Patient reports going to diaylsis every monday and but missed yesterday. Denies chest pain. History of Present Illness HPI narrative: 72-year-old female, history of coronary artery disease, end-stage renal disease on dialysis (missed yesterday, still makes urine), heart failure, sarcoidosis on chronic steroids, 2 L baseline oxygen requirement presents with worsening shortness of breath. She was seen yesterday for similar symptoms and was given prescription for Augmentin, azithromycin, increasing dose of prednisone after being diagnosed with community acquired pneumonia. Due to being seen in the ER yesterday, she missed her dialysis appointment. She reports that she was doing okay throughout most the day but this evening became more short of breath again. She reports some chest pain, denies any worsening lower extremity edema. Reports that she has peed multiple times today. Reports she has taken all of her medications today. She is previously on a blood thinner for A-fib but was taken off due to GI bleed. She has AICD. Related Data Home Medications Medication Instructions Recorded Confirmed folic acid 1 mg
[2023-07-26 23:15] LABS: Alanine Aminotransferase 53 U/L (12-78); Albumin Level 4.3 g/dl (3.5-5.0); Albumin/Globulin Ratio 1.2 (1.1-1.8); Alkaline Phosphatase 291 U/L (38-126); Anion Gap 18.2 mEq/L (5-15); Aspartate Amino Transferase 76 U/L (14-36); Blood Urea Nitrogen 63 mg/dl (7-17); Calcium 8.2 mg/dl (8.4-10.2); Carbon Dioxide 24 mmol/L (22.0-30.0); Chloride 102 mmol/L (98-107); Creatinine Clearance Estimated 10 mL/min (50-200); Estimated Glomerular Filt Rate 6 ml/min (>60); GFR (African American) 7 ML/MIN (>60); Globulin 3.6 g/dL (1.3-3.2); Glucose 245 mg/dl (74-100); Potassium 4.2 mmoL/L (3.5-5.1); Sodium 140 mmol/L (136-145); Total Protein,Serum 7.9 g/dl (6.3-8.2)
--- NOTE | 2023-07-26 23:22 | PC.NURSE ---
reported critical CR of 6.9 to
[2023-07-26 23:24] LABS: NT Pro Brain Natriuretic Pep. 16200 pg/mL (0-125)
[2023-07-26 23:26] LABS: Troponin I 0.03 ng/ml (0.00-0.034)
[2023-07-26 23:42] LABS: Lymphocytes % 7 % (10-50); Monocytes % 3 % (2-9); Neutrophils % 87 % (42-76); Platelet Estimate Normal; RBC Morphology Normal; Total Cells Counted 100
[2023-07-26 23:53] LABS: VBG Base Excess -5.4 mmol/L (-2.4-2.3); VBG Oxygen Saturation 84.4 % (50-70); VBG PCO2 43.4 mmol/L (35-51); VBG PO2 54.6 mmol/L (28-40); VBG Total CO2 22.3 mmol/L (23-27)
[2023-07-27] VITALS (7 sets, daily range): BP systolic 155–218; BP diastolic 93–125; PULSE 80–138; RESP 19–32; TEMP 36.8; O2SAT 98–100
--- NOTE | 2023-07-27 00:03 | PC.NURSE ---
in room at bedside with patient.
--- NOTE | 2023-07-27 00:18 | PC.NURSE ---
provided patient with bedside commode and bed monk
--- NOTE | 2023-07-27 00:20 | PC.NURSE ---
1G Rocephin started on pt at midnight, at 0020 pt complained of SOA and flushed feeling. Dr Forman aware.
--- NOTE | 2023-07-27 00:20 | PC.NURSE ---
Rocephin stopped d/t pt complaints of SOA
--- NOTE | 2023-07-27 00:25 | PC.NURSE ---
Pt heart increased into 130's BP systolic 200's Dr Forman at bedside
[2023-07-27 00:33] LABS: Lactic Acid 1.4 mmol/L (0.7-2.1)
--- NOTE | 2023-07-27 00:45 | ECG_ITS ---
APPROVED REPORT Exam: Resting ECG HR:136 bpm ECG Measurements Heart Rate 136 AXES TN 187 P -54 QRSd 132 QRS -56 QT 333 T 110 QTc 413 Conclusion SINUS TACHYCARDIA INTRAVENTRICULAR CONDUCTION DELAY [130+ ms QRS DURATION] POSSIBLE ANTERIOR MYOCARDIAL INFARCTION , PROBABLY OLD [30 ms Q WAVE IN V3/V4, OR R < 0.2 mV IN V4] ABNORMAL ECG UNCONFIRMED REPORT Electronically signed by : Rafi Nesbitt MD 08/01/2023 19:25:39
--- NOTE | 2023-07-27 00:45 | PC.NURSE ---
and RN at bedside at this time.
--- NOTE | 2023-07-27 00:53 | PC.NURSE ---
respiratory notified to place patient on Bi-PAP
--- NOTE | 2023-07-27 00:58 | PC.NURSE ---
V/O per MD for 0.3 mg IM Epinephrine and 125mg Solu-Medrol IVP
--- NOTE | 2023-07-27 01:00 | PC.NURSE ---
Pt allergies updated
--- NOTE | 2023-07-27 01:28 | ECG_ITS ---
APPROVED REPORT Exam: Resting ECG HR:126 bpm ECG Measurements Heart Rate 126 AXES QRSd 132 QRS -68 QT 349 T 100 QTc 423 Conclusion ATRIAL FIBRILLATION WITH RAPID VENTRICULAR RESPONSE LEFT AXIS DEVIATION [QRS AXIS < -30] INTRAVENTRICULAR CONDUCTION DELAY [130+ ms QRS DURATION] POSSIBLE ANTERIOR MYOCARDIAL INFARCTION , OF INDETERMINATE AGE [30 ms Q WAVE IN V3/V4, OR R < 0.2 mV IN V4] ABNORMAL ECG UNCONFIRMED REPORT Electronically signed by : Rafi Nesbitt MD 07/29/2023 11:05:55
--- NOTE | 2023-07-27 01:49 | PC.NURSE ---
Pt heart rate increased to 130's increased BP, Dr Forman aware, orders for 25mg Benadryl IV.
--- NOTE | 2023-07-27 01:50 | PC.NURSE ---
Non-rebreather removed, pt placed back on 2l/nc
--- NOTE | 2023-07-27 02:00 | PC.NURSE ---
Pt is still tachy heart rate in 130's EKG repeated, Pt states her SOA is better currently 96% on 2L/nc, family at bedside.
[2023-07-27 02:51] LABS: Troponin I 0.03 ng/ml (0.00-0.034)
--- NOTE | 2023-07-27 03:01 | PC.NURSE ---
Alise is calling the transfer center at [facility]
--- NOTE | 2023-07-27 03:02 | PC.NURSE ---
[facility] contacted over transfer of patient for dialysis and [facility] had no beds available. [facility] was contacted as well and they had no beds available.
--- NOTE | 2023-07-27 03:02 | PC.NURSE ---
Addendum entered by Annmarie Motta RN 07/27/23 03:03: call occurred at 0241 Original Note: [facility] states they do not have any ICU beds.
--- NOTE | 2023-07-27 03:42 | ECG_ITS ---
APPROVED REPORT Exam: Resting ECG HR:133 bpm ECG Measurements Heart Rate 133 AXES LA 200 P 78 QRSd 135 QRS -63 QT 344 T 91 QTc 422 Conclusion SINUS TACHYCARDIA INTRAVENTRICULAR CONDUCTION DELAY [130+ ms QRS DURATION] POSSIBLE ANTERIOR MYOCARDIAL INFARCTION , PROBABLY OLD [30 ms Q WAVE IN V3/V4, OR R < 0.2 mV IN V4] ABNORMAL ECG UNCONFIRMED REPORT Electronically signed by : Rafi Nesbitt MD 07/29/2023 11:05:49
--- NOTE | 2023-07-27 04:29 | PC.NURSE ---
Addendum entered by Annmarie Motta RN 07/27/23 05:40: EMS staff states they will be up here soon. Original Note: Called [facility] to notify the need for transportation to [facility]
--- NOTE | 2023-07-27 05:39 | PC.NURSE ---
[facility] called again my [facility] to check on status of EMS transport for the pt.
== END 2023-07-27 06:51 | disposition short-term general hospital (02) ==
PROVIDERS: Emergency Medicine; Emergency Provider Emergency Medicine; PCP Family Medicine
DX: J96.90 Respiratory failure, unspecified, unspecified whether with hypoxia or hypercapnia (principal); T78.2XXA Anaphylactic shock, unspecified, initial encounter; N18.6 End stage renal disease; E87.21 Acute metabolic acidosis; J18.9 Pneumonia, unspecified organism; E87.79 Other fluid overload; I48.20 Chronic atrial fibrillation, unspecified; Z95.810 Presence of automatic (implantable) cardiac defibrillator; Z99.2 Dependence on renal dialysis
CPT/HCPCS: 71045; 80053; 82803; 83605; 83880; 84484; 85007; 85025; 93005; 96365; 96366; 96372; 96374; 96375; 96376; 99291; J0696; J1956

== ENCOUNTER 2023-09-11 04:48 | Emergency (ER) | payer MEDICARE, SELFPAY ==
[2023-09-11] VITALS (16 sets, daily range): BP systolic 142–228; BP diastolic 86–134; PULSE 70–108; RESP 18–22; TEMP 36.6–36.9; O2SAT 94–100; BMI 29.7
--- NOTE | 2023-09-11 04:53 | ECG_ITS ---
APPROVED REPORT Exam: Resting ECG HR:73 bpm ECG Measurements Heart Rate 73 AXES NH 250 P 58 QRSd 135 QRS -54 QT 448 T 77 QTc 474 Conclusion ELECTRONIC ATRIAL PACEMAKER ELECTRONIC VENTRICULAR PACEMAKER -- CONTOUR ANALYSIS BASED ON INTRINSIC RHYTHM LEFT AXIS DEVIATION [QRS AXIS < -30] LEFT BUNDLE BRANCH BLOCK [120+ ms QRS DURATION, 80+ ms Q/S IN V1/V2, 85+ ms R IN I/aVL/V5/V6] ABNORMAL ECG UNCONFIRMED REPORT Electronically signed by : Rafi Nesbitt MD 09/13/2023 18:29:25
--- NOTE | 2023-09-11 04:56 | HMH.EDGENADL ---
Discharge Plan Disposition Patient Disposition: Still a Patient Condition: Fair Prescriptions Prescriptions: No Action atorvastatin 20 mg tablet 20 mg PO HS Qty: 30 5RF prednisone 10 mg tablet 5 mg PO DAILY acetaminophen [Tylenol] 325 mg capsule 325 mg PO QID PRN (Reason: Mild Pain) insulin aspart U-100 100 unit/mL (3 mL) insulin pen 4 unit SQ ACHS insulin glargine 100 unit/mL (3 mL) insulin pen 6 unit SQ DAILY melatonin 5 mg capsule 5 mg PO HS omeprazole 40 mg capsule,delayed release(DR/EC) 40 mg PO DAILY Patient Comments: TAKE 1 CAPSULE BY MOUTH ONCE DAILY. DO NOT CRUSH OR CHEW furosemide 80 mg tablet 80 mg PO BID Patient Comments: TAKE 1 TABLET BY MOUTH TWICE DAILY folic acid 1 MG tablet 1 mg PO DAILY lactulose 10 GM/15 ML solution 20 g PO TID sevelamer carbonate 800 MG tablet 1,600 mg PO TID rifaximin 550 mg tablet 550 mg PO BID bisoprolol fumarate 10 mg Tablet 10 mg PO DAILY Qty: 31 0RF albuterol sulfate 90 mcg/actuation HFA aerosol inhaler 4 inh inhalation Q4H PRN (Reason: shortness of breath or wheezing) Qty: 8.5 0RF Rx Instructions: 4 puffs every 4 hours for 48 hours then as needed for shortness of breath or wheezing following pantoprazole 40 mg tablet,delayed release (DR/EC) 40 mg PO BID Patient Comments: TAKE 1 TABLET BY MOUTH TWICE DAILY 30 MINUTES BEFORE BREAKFAST AND DINNER Referrals Follow up/Referrals: Provider,Referral, MD [Primary Care Provider] - See instructions Activity Restrictions/Add. Instructions Additional Instructions/Restrictions: Please follow-up with dialysis tomorrow. Please return with any new or worsening symptoms. Clinical Impressions Clinical Impression: End-stage renal disease (ESRD) CHF (congestive heart failure) Qualifiers: Heart failure type: unspecified Heart failure chronicity: acute on chronic Qualified Code(s): I50.9 - Heart failure, unspecified Dyspnea Qualifiers: Dyspnea type: orthopnea Qualified Code(s): R06.01 - Orthopnea Discharge ED Provider: Jorge Hook General Adult HPI <Steven Forman MD - Last Filed: 09/11/23 07:09> General Chief complaint: Chest Pain Stated complaint: CP Time Seen by Provider: 09/11/23 04:53 History of Present Illness HPI narrative: 72-year-old female, history of end-stage renal disease on Monday dialysis, sarcoidosis presents with worsening shortness of breath and chest pain. Shortness of breath is worse with laying down and worse with moving around. She reports that her last dialysis session was on Monday. It is currently Monday. She was not able to get dialysis during her regularly scheduled times because of the holiday so she has not had dialysis for approximately 5 days. Symptoms have been slowly worsening. She denies any productive cough or fevers. She continues to make a very small volume of urine. Related Data Home Medications Medication Instructions Recorded Confirmed folic acid 1 mg tablet 1 mg PO DAILY Supplement 11/29/20 09/11/23 lactulose 10 gram/15 mL oral 20 g PO TID liver 11/29/20 09/11/23 solution sevelamer carbonate 800 mg tablet 1,600 mg PO TID Kidney failure 11/29/20 09/11/23 acetaminophen 325 mg capsule 325 mg PO QID PRN Mild Pain 03/23/21 09/11/23 (Tylenol) insulin aspart U-100 100 unit/mL 4 unit SQ ACHS Diabetes 03/23/21 09/11/23 (3 mL) subcutaneous pen insulin glargine 100 unit/mL (3 6 unit SQ DAILY Diabetes 03/23/21 09/11/23 mL) subcutaneous pen melatonin 5 mg capsule 5 mg PO HS Sleep 03/23/21 09/11/23 prednisone 10 mg tablet 5 mg PO DAILY . 03/23/21 09/11/23 rifaximin 550 mg tablet 550 mg PO BID unk 03/23/21 09/11/23 furosemide 80 mg tablet 80 mg PO BID Fluid 10/12/22 09/11/23 omeprazole 40 mg capsule,delayed 40 mg PO DAILY GERD 10/12/22 09/11/23 release pantoprazole 40 mg tablet,delayed 40 mg PO BID 09/11/23 09/11/23 relea
--- NOTE | 2023-09-11 05:01 | XR_ITS ---
PROCEDURE INFORMATION: Exam: XR Chest Exam date and time: 09/11/2023 5:06 AM Age: 72 years old Clinical indication: Shortness of breath; Additional info: Esrd, SOA, missed dialysis due to thanksgiving TECHNIQUE: Imaging protocol: Radiologic exam of the chest. Views: 1 view. COMPARISON: CR XR CHEST PORTABLE 07/26/2023 11:20 PM FINDINGS: Lungs: Nonspecific bibasilar opacities, favoring atelectasis or pneumonia. Probable pulmonary vascular congestion. Pleural spaces: No pleural effusion. No pneumothorax. Heart/Mediastinum: Stable cardiomediastinal silhouette. Bones/joints: No acute osseous findings. Soft tissues: Left-sided chest wall pacing device. IMPRESSION: 1. Nonspecific bibasilar opacities, favoring atelectasis or pneumonia. Recommend imaging follow-up until complete resolution. 2. Probable pulmonary vascular congestion.
[2023-09-11 05:07] LABS: Basophils % 0.3 % (0.1-2.0); Eosinophils # 0.2 K/mm3 (0.0-0.4); Eosinophils % 2.7 % (0.1-12.0); Hematocrit 30.4 % (37.0-47.0); Hemoglobin 9.7 g/dL (12.2-16.2); Lymphocytes # 1.1 K/mm3 (0.7-4.5); Lymphocytes % 16.7 % (10-50); Mean Corpuscular HGB Conc 31.8 g/dL (31.8-35.4); Mean Corpuscular Hemoglobin 30.5 pg (27.0-31.2); Mean Corpuscular Volume 96.1 fl (81-99); Mean Platelet Volume 8.3 fl (7.4-10.4); Monocytes # 0.4 K/mm3 (0.1-1.0); Monocytes % 6.4 % (1.7-9.3); Neutrophils # 4.9 K/mm3 (1.8-7.8); Neutrophils % 73.8 % (37.0-80.0); Platelet Count 173 K/mm3 (142-424); Red Blood Count 3.17 M/mm3 (4.20-5.40); White Blood Count 6.6 K/mm3 (4.8-10.8)
[2023-09-11 05:12] LABS: Chloride 103 mmol/L (98-107); Potassium 4.5 mmoL/L (3.5-5.1); Sodium 140 mmol/L (136-145)
[2023-09-11 05:14] LABS: Creatinine Clearance Estimated 7 mL/min (50-200); Estimated Glomerular Filt Rate 4 ml/min (>60); GFR (African American) 5 ML/MIN (>60)
[2023-09-11 05:15] LABS: Alanine Aminotransferase 29 U/L (12-78); Albumin Level 4.4 g/dl (3.5-5.0); Albumin/Globulin Ratio 1.6 (1.1-1.8); Alkaline Phosphatase 198 U/L (38-126); Anion Gap 19.5 mEq/L (5-15); Aspartate Amino Transferase 47 U/L (14-36); Bilirubin,Total 1.3 mg/dl (0.2-1.3); Calcium 7.6 mg/dl (8.4-10.2); Carbon Dioxide 22 mmol/L (22.0-30.0); Globulin 2.7 g/dL (1.3-3.2); Glucose 120 mg/dl (74-100); Total Protein,Serum 7.1 g/dl (6.3-8.2)
[2023-09-11 05:16] LABS: Blood Urea Nitrogen 80 mg/dl (7-17)
[2023-09-11 05:24] LABS: NT Pro Brain Natriuretic Pep. 16400 pg/mL (0-125)
[2023-09-11 05:27] LABS: Troponin I 0.04 ng/ml (0.00-0.034)
--- NOTE | 2023-09-11 06:32 | PC.NURSE ---
pt requesting O2, Dr. Forman OK'd 2L NC
--- NOTE | 2023-09-11 07:42 | PC.NURSE ---
rounded on pt gave a glass of water
[2023-09-11 08:35] LABS: Troponin I 0.03 ng/ml (0.00-0.034)
--- NOTE | 2023-09-11 08:42 | PC.NURSE ---
pt up to restroom
--- NOTE | 2023-09-11 09:55 | PC.NURSE ---
Checked on patient, no needs at this time.
== END 2023-09-11 10:45 | disposition still patient (30) ==
PROVIDERS: Emergency Medicine; Emergency Provider Emergency Medicine
DX: R07.89 Other chest pain (principal); R06.02 Shortness of breath; D86.9 Sarcoidosis, unspecified; N18.6 End stage renal disease; I11.0 Hypertensive heart disease with heart failure; I50.9 Heart failure, unspecified; I48.20 Chronic atrial fibrillation, unspecified; Z99.2 Dependence on renal dialysis; Z95.0 Presence of cardiac pacemaker; J81.0 Acute pulmonary edema
CPT/HCPCS: 71045; 80053; 83880; 84484; 85025; 93005; 96374; 99285

== ENCOUNTER 2024-01-10 19:45 | Emergency (ER) | payer MEDICARE, SELFPAY ==
[2024-01-10 19:47] VITALS: BP 135/85; PULSE 82; RESP 18; TEMP 36.6; O2SAT 95; BMI 30.7
--- NOTE | 2024-01-10 20:10 | XR_ITS ---
PROCEDURE INFORMATION: Exam: XR Right Shoulder Exam date and time: 01/10/2024 8:25 PM Age: 73 years old Clinical indication: Pain; Shoulder; Right; Additional info: Rue pain after procedure TECHNIQUE: Imaging protocol: Radiologic exam of the right shoulder. Views: 2 or more views. COMPARISON: SHOULDRTWO MR shoulder RT wo con 12/29/2017 2:44 PM FINDINGS: Bones/joints: No evidence of acute fracture or malalignment. Suspect chronic Hill-Sachs lesion. Superior migration of the humeral head with narrowed acromiohumeral interval suggestive of rotator cuff tear. Soft tissues: Unremarkable. IMPRESSION: 1. No evidence of acute osseous abnormality in the right shoulder. 2. Suspect chronic Hill-Sachs lesion. 3. Superior migration of the humeral head with narrowed acromiohumeral interval suggestive of rotator cuff tear.
--- NOTE | 2024-01-10 20:52 | ED_ITS ---
Discharge Plan Disposition Patient Disposition: Home, Self-Care Prescriptions Prescriptions: New methocarbamol 750 mg tablet 750 mg PO TID 5 Days Qty: 15 0RF No Action atorvastatin 20 mg tablet 20 mg PO HS Qty: 30 5RF prednisone 10 mg tablet 5 mg PO DAILY acetaminophen [Tylenol] 325 mg capsule 325 mg PO QID PRN (Reason: Mild Pain) insulin aspart U-100 100 unit/mL (3 mL) insulin pen 4 unit SQ ACHS insulin glargine 100 unit/mL (3 mL) insulin pen 6 unit SQ DAILY melatonin 5 mg capsule 5 mg PO HS omeprazole 40 mg capsule,delayed release(DR/EC) 40 mg PO DAILY Patient Comments: TAKE 1 CAPSULE BY MOUTH ONCE DAILY. DO NOT CRUSH OR CHEW furosemide 80 mg tablet 80 mg PO BID Patient Comments: TAKE 1 TABLET BY MOUTH TWICE DAILY bisoprolol fumarate 10 mg tablet 10 mg PO DAILY Qty: 31 11RF folic acid 1 MG tablet 1 mg PO DAILY lactulose 10 GM/15 ML solution 20 g PO TID sevelamer carbonate 800 MG tablet 1,600 mg PO TID rifaximin 550 mg tablet 550 mg PO BID albuterol sulfate 90 mcg/actuation HFA aerosol inhaler 4 inh inhalation Q4H PRN (Reason: shortness of breath or wheezing) Qty: 8.5 0RF Rx Instructions: 4 puffs every 4 hours for 48 hours then as needed for shortness of breath or wheezing following pantoprazole 40 mg tablet,delayed release (DR/EC) 40 mg PO BID Patient Comments: TAKE 1 TABLET BY MOUTH TWICE DAILY 30 MINUTES BEFORE BREAKFAST AND DINNER Referrals Follow up/Referrals: Aldo Juarez MD [Primary Care Provider] - See instructions Activity Restrictions/Add. Instructions Additional Instructions/Restrictions: Call your family doctor to establish care for this visit to the emergency department and schedule follow-up within 48 hours to ensure improvement. If you have any worsening of your condition or any other concerning signs or symptoms, return to the emergency department or your primary care doctor for further evaluation. Call your nephrology team tomorrow to discuss your pain. Clinical Impressions Clinical Impression: Acute pain of right shoulder Discharge ED Provider: Surya Rosario General Adult [facility] General Chief complaint: Extremity Injury, Upper Stated complaint: procedure on RT arm 01/09 RT arm pain Time Seen by Provider: 01/10/24 19:50 Mode of Arrival: Wheelchair Source of Information: Patient Limitations: No Limitations Description of Symptoms (Recalled from ER Triage Doc. by RN): Pt is a dialysis pt with a LUIS Fistula that was placed 2 yrs ago. Today they placed a stent or balloon according to pt in to help with flow at at 1400. Tonight around 1900 she began having pain in that arm. Pt does dialysis // Sat at [facility] in [place]. History of Present Illness HPI narrative: 73-year-old female history of hypertension, hyperlipidemia, diabetes status post ESRD currently on dialysis Monday presenting with right upper extremity pain. Patient states that she had her right upper extremity fistula manipulated today. She had a balloon dilated due to stenosis. Having pain since that time. Also had surgery on the shoulder in the past. Pain is intermittent, sharp, stabbing, made better with ibuprofen. No worsening swelling, neurologic deficits, or any other concerns. Patient last received dialysis yesterday for the full session. Please note that above description of symptoms, in this electronic medical record under categorization of recalled from ER triage doctor by RN are reflective of an initial nursing assessment, however, is not reflective of my full history and physical exam that was personally taken and clarified. Consequentially, this preceding description of symptoms, which may include the patient's categorized chief complaint in the EMR, do not reflect my personal clinical impression, and the ultimate description of history of present illness and patient stated complaints should be deferred to this section of the note. Unless stated otherwise or congruent with this section of the note, additional signs, symptoms, or incongruence should be interpreted as inaccurate with my clinical impression. Related Data Home Medications Medication Instructions Recorded Confirmed folic acid 1 mg tablet 1 mg PO DAILY Supplement 11/29/20 09/11/23 lactulose 10 gram/15 mL oral 20 g PO TID liver 11/29/20 09/11/23 solution sevelamer carbonate 800 mg tablet 1,600 mg PO TID Kidney failure 11/29/20 09/11/23 acetaminophen 325 mg capsule 325 mg PO QID PRN Mild Pain 03/23/21 09/11/23 (Tylenol) insulin aspart U-100 100 unit/mL 4 unit SQ ACHS Diabetes 03/23/21 09/11/23 (3 mL) subcutaneous pen insulin glargine 100 unit/mL (3 6 unit SQ DAILY Diabetes 03/23/21 09/11/23 mL) subcutaneous pen melatonin 5 mg capsule 5 mg PO HS Sleep 03/23/21 09/11/23 prednisone 10 mg tablet 5 mg PO DAILY . 03/23/21 09/11/23 rifaximin 550 mg tablet 550 mg PO BID unk 03/23/21 09/11/23 furosemide 80 mg tablet 80 mg PO BID Fluid 10/12/22 09/11/23 omeprazole 40 mg capsule,delayed 40 mg PO DAILY GERD 10/12/22 09/11/23 release pantoprazole 40 mg tablet,delayed 40 mg PO BID 09/11/23 09/11/23 release Previous Rx's Medication Instructions Recorded atorvastatin 20 mg tablet 20 mg PO HS Cholesterol #30 tabs 10/26/22 albuterol sulfate 90 mcg/actuation 4 inh inhalation Q4H PRN shortness 07/25/23 aerosol inhaler of breath or wheezing #8.5 grams bisoprolol fumarate 10 mg tablet 10 mg PO DAILY #31 tabs 09/18/23 methocarbamol 750 mg tablet 750 mg PO TID 5 days #15 tabs 01/10/24 Allergies Allergy/AdvReac Type Severity Reaction Status Date / Time ceftriaxone Allergy Severe Anaphylaxis Verified 07/27/23 01:46 [facility] Disclaimer: The information contained in this section may have been updated after the patient was seen, as this information can be updated by other users. Medical History (Updated 01/10/24 @ 22:11 by Surya Rosario MD) Abnormal result of cardiovascular function study Typical angina Automatic implantable cardioverter-defibrillator in situ Chronic a-fib Surgical History (Updated 11/29/22 @ 14:42 by Paige Young) History of cardiac cath Social History Smoking Status: Never smoker second hand exposure: No alcohol intake: never substance use type: other current occupational status: disabled Travel in the last 8 weeks: None household members: spouse housing: house current occupational exposures/hazards: No caffeine: No ROS Obtained: Yes All systems reviewed & no additional complaints except as documented Physical Exam General General appearance: alert and in no apparent distress Head Head exam: atraumatic and normocephalic Eye Eye exam: Present normal appearance, PERRL and EOMI ENT ENT exam: Present mucous membranes moist Neck Neck exam: Present normal inspection, full ROM and trachea midline Respiratory Respiratory exam: Absent respiratory distress, wheezes, stridor, accessory muscle use or prolonged expiratory phase Cardiovascular Cardiovascular exam: Present normal rhythm Abdominal Exam Abdominal exam: Present soft; Absent distention, tenderness, guarding, rebound or rigidity Extremities Exam Extremities exam: Absent edema Neurological Exam Neurological exam: Present alert, oriented X3, CN II-XII intact and normal gait; Absent motor sensory deficit Skin Skin exam: Present warm and dry; Absent diaphoresis or erythema Medical Decision Making Medical Records Medical records reviewed: Yes I reviewed the patient's medical records. Rudy Inquiry Pt receiving controlled substance: No Ruyd was queried for this patient: No Vital Signs: 01/10/24 19:47 01/10/24 22:26 Temperature 97.9 F 98.3 F Temperature Source Oral Oral Pulse Rate 73 Pulse Rate [Left] 82 Respiratory Rate 18 16 Blood Pressure 119/72 Blood Pressure [Left Arm] 135/85 Blood Pressure Mean [Left Arm] 101 Blood Pressure Source Automatic Cuff Blood Pressure Source [Left Arm] Automatic Cuff Blood Pressure Position Sitting 02 Sat by Pulse Oximetry 95 Oxygen Delivery Method Room Air Room Air Orders (Tests/Meds): ED MEDICATIONS Discontinued Medications Generic Name Dose Route Start Last Admin Trade Name Freq PRN Reason Stop Dose Admin Acetaminophen 1,000 mg 01/10/24 20:10 01/10/24 21:00 Acetaminophen 500mg Tab PO 01/10/24 20:11 1,000 mg ONCE ONE Administration Methocarbamol 750 mg 01/10/24 20:10 01/10/24 20:59 Methocarbamol 500mg Tablet PO 01/10/24 20:11 750 mg ONCE ONE Administration ORDERS Category Date Time Status Shoulder XR right miminum 2 views [XR shoulder RT min Exams 01/10/24 20:10 Completed 2V] Stat Medical Decision Narrative: 73-year-old female history of hypertension, hyperlipidemia, diabetes status post ESRD currently on dialysis Monday presenting with right upper extremity pain. Patient states that she had her right upper extremity fistula manipulated today. She had a balloon dilated due to stenosis. Having pain sinc e that time. Also had surgery on the shoulder in the past. Pain is intermittent, sharp, stabbing, made better with ibuprofen. No worsening swelling, neurologic deficits, or any other concerns. Patient last received dialysis yesterday for the full session. History was obtained via conversation with patient. On arrival, patient hemodynamically stable, alert, oriented x4, appropriate, GCS 15, moving all extremities spontaneously, pupils equal and reactive to light. Full physical exam performed and significant for right upper extremity thrill with distal pulses intact. No obvious appreciable swelling of the right upper extremity as compared to the left. Neurologically intact with full range of motion. Tenderness exacerbated with external rotation of the right upper extremity. Differential includes neuropathy, radiculopathy, osteoarthritis, postprocedural pain, regional pain syndrome, among others. Patient was given Robaxin p.o., Tylenol for symptomatic management and correction of underlying abnormalities. Workup independently interpreted and significant for no acute bony abnormality of the right shoulder, small, old Hill-Sachs lesion. See radiology read for full review of final results. On reevaluation, patient feeling much better after Tylenol and Robaxin.Given patient presentation, workup, history, this most likely represents musculoskeletal versus nerve strain in the setting of recent operation and surgical positioning. Because patient at baseline without signs or symptoms of clinical decompensation, deemed appropriate for discharge. Results were relayed to patient who voiced understanding and were agreeable to outpatient management and follow up. I discussed my clinical impression with patient and answered all questions. At this time, the evidence for any other entities in the differential is insufficient to warrant any further testing or ED observation. This was explained as well. Advisory was given that persistent or worsening symptoms require further evaluation. I confirmed the understanding of this discussion. Critical Care Critical Care Time Critical Care Time: No
[2024-01-10] MEDS: METHOCARBAMOL 500MG TABLET 750 MG PO (20:59)
[2024-01-10] MEDS: ACETAMINOPHEN 500MG TAB 1000 MG PO (21:00)
--- NOTE | 2024-01-10 21:02 | PC.NURSE ---
Rounded on patient no new complaints noted
--- NOTE | 2024-01-10 21:05 | PC.NURSE ---
Pt family at bedside, mediacted, no other needs at this time
[2024-01-10 22:26] VITALS: BP 119/72; PULSE 73; RESP 16; TEMP 36.8; O2SAT 96
== END 2024-01-10 22:10 | disposition home or self-care (01) ==
PROVIDERS: Emergency Provider Emergency Medicine; PCP Family Medicine
DX: M25.511 Pain in right shoulder (principal); N18.6 End stage renal disease; E11.22 Type 2 diabetes mellitus with diabetic chronic kidney disease; I12.0 Hypertensive chronic kidney disease with stage 5 chronic kidney disease or end stage renal disease; E78.5 Hyperlipidemia, unspecified; Z95.810 Presence of automatic (implantable) cardiac defibrillator; Z99.2 Dependence on renal dialysis; Z79.4 Long term (current) use of insulin
CPT/HCPCS: 73030; 99283

== ENCOUNTER 2024-02-21 16:21 | Emergency (ER) | payer MEDICARE, SELFPAY ==
[2024-02-21] VITALS (11 sets, daily range): BP systolic 77–170; BP diastolic 46–101; PULSE 65–78; RESP 14–24; TEMP 36.7; O2SAT 93–100; BMI 29.8
--- NOTE | 2024-02-21 16:18 | ECG_ITS ---
APPROVED REPORT Exam: Resting ECG HR:69 bpm ECG Measurements Heart Rate 69 AXES RI 246 P -89 QRSd 138 QRS -46 QT 451 T 67 QTc 471 Conclusion ELECTRONIC ATRIAL PACEMAKER INTRAVENTRICULAR CONDUCTION DELAY [130+ ms QRS DURATION] Electronically signed by : MARVEL HAYNES, 02/21/2024 23:16:28
--- NOTE | 2024-02-21 16:31 | XR_ITS ---
PROCEDURE INFORMATION: Exam: XR Chest Exam date and time: 02/21/2024 4:37 PM Age: 73 years old Clinical indication: Sternal or substernal pain; Additional info: Cp TECHNIQUE: Imaging protocol: Radiologic exam of the chest. Views: 1 view. Total images: 1 COMPARISON: CR XR CHEST PORTABLE 09/11/2023 5:06 AM FINDINGS: Tubes, catheters and devices: A pacemaker device is present, its leads in appropriate position. Lungs: Interstitial prominence noted throughout both lungs. Pleural spaces: No focal pneumonia or pneumothorax. Heart/Mediastinum: Heart demonstrates mild diffuse enlargement. Bones/joints: Unremarkable. IMPRESSION: 1. Mild cardiomegaly. 2. Interstitial prominence noted throughout both lungs. 3. No focal pneumonia or pneumothorax.
--- NOTE | 2024-02-21 16:41 | ED_ITS ---
Discharge Plan Disposition Patient Disposition: Xfer Short-Term Hosp Chief Complaint: Chest Pain Prescriptions Prescriptions: No Action atorvastatin 20 mg tablet 20 mg PO HS Qty: 30 5RF prednisone 10 mg tablet 5 mg PO DAILY acetaminophen [Tylenol] 325 mg capsule 325 mg PO QID PRN (Reason: Mild Pain) insulin aspart U-100 100 unit/mL (3 mL) insulin pen 4 unit SQ ACHS insulin glargine 100 unit/mL (3 mL) insulin pen 6 unit SQ DAILY melatonin 5 mg capsule 5 mg PO HS omeprazole 40 mg capsule,delayed release(DR/EC) 40 mg PO DAILY Patient Comments: TAKE 1 CAPSULE BY MOUTH ONCE DAILY. DO NOT CRUSH OR CHEW furosemide 80 mg tablet 80 mg PO BID Patient Comments: TAKE 1 TABLET BY MOUTH TWICE DAILY bisoprolol fumarate 10 mg tablet 10 mg PO DAILY Qty: 31 11RF folic acid 1 MG tablet 1 mg PO DAILY lactulose 10 GM/15 ML solution 20 g PO TID sevelamer carbonate 800 MG tablet 1,600 mg PO TID rifaximin 550 mg tablet 550 mg PO BID albuterol sulfate 90 mcg/actuation HFA aerosol inhaler 4 inh inhalation Q4H PRN (Reason: shortness of breath or wheezing) Qty: 8.5 0RF Rx Instructions: 4 puffs every 4 hours for 48 hours then as needed for shortness of breath or wheezing following pantoprazole 40 mg tablet,delayed release (DR/EC) 40 mg PO BID Patient Comments: TAKE 1 TABLET BY MOUTH TWICE DAILY 30 MINUTES BEFORE BREAKFAST AND DINNER methocarbamol 750 mg tablet 750 mg PO TID 5 Days Qty: 15 0RF Referrals Follow up/Referrals: Aldo Juarez MD [Primary Care Provider] - See instructions Clinical Impressions Clinical Impression: CHF exacerbation, Angina pectoris, unstable Discharge ED Provider: Surya Rosario General Adult HPI <LAURA Desai - Last Filed: 02/21/24 16:41> General Chief complaint: Chest Pain Stated complaint: Chest Pain Time Seen by Provider: 02/21/24 16:34 Related Data Home Medications Medication Instructions Recorded Confirmed folic acid 1 mg tablet 1 mg PO DAILY Supplement 11/29/20 09/11/23 lactulose 10 gram/15 mL oral 20 g PO TID liver 11/29/20 09/11/23 solution sevelamer carbonate 800 mg tablet 1,600 mg PO TID Kidney failure 11/29/20 09/11/23 acetaminophen 325 mg capsule 325 mg PO QID PRN Mild Pain 03/23/21 09/11/23 (Tylenol) insulin aspart U-100 100 unit/mL 4 unit SQ ACHS Diabetes 03/23/21 09/11/23 (3 mL) subcutaneous pen insulin glargine 100 unit/mL (3 6 unit SQ DAILY Diabetes 03/23/21 09/11/23 mL) subcutaneous pen melatonin 5 mg capsule 5 mg PO HS Sleep 03/23/21 09/11/23 prednisone 10 mg tablet 5 mg PO DAILY . 03/23/21 09/11/23 rifaximin 550 mg tablet 550 mg PO BID unk 03/23/21 09/11/23 furosemide 80 mg tablet 80 mg PO BID Fluid 10/12/22 09/11/23 omeprazole 40 mg capsule,delayed 40 mg PO DAILY GERD 10/12/22 09/11/23 release pantoprazole 40 mg tablet,delayed 40 mg PO BID 09/11/23 09/11/23 release Previous Rx's Medication Instructions Recorded atorvastatin 20 mg tablet 20 mg PO HS Cholesterol #30 tabs 10/26/22 albuterol sulfate 90 mcg/actuation 4 inh inhalation Q4H PRN shortness 07/25/23 aerosol inhaler of breath or wheezing #8.5 grams bisoprolol fumarate 10 mg tablet 10 mg PO DAILY #31 tabs 09/18/23 methocarbamol 750 mg tablet 750 mg PO TID 5 days #15 tabs 01/10/24 Allergies Allergy/AdvReac Type Severity Reaction Status Date / Time ceftriaxone Allergy Severe Anaphylaxis Verified 07/27/23 01:46 <Surya Rosario MD - Last Filed: 02/21/24 20:35> History of Present Illness HPI narrative: Please note that above description of symptoms, in this electronic medical record under categorization of recalled from ER triage doctor by RN are reflective of an initial nursing assessment, however, is not reflective of my full history and physical exam that was personally taken and clarified. Consequentially, this preceding description of symptoms, which may include the patient's categorized chief complaint in the EMR, do not reflect my personal clinical impression, and the ultimate description of history of present illness and patient stated complaints should be deferred to this section of the note. Unless stated otherwise or congruent with this section of the note, additional signs, symptoms, or incongruence should be interpreted as inaccurate with my clinical impression. [facility] <LAURA Desai - Last Filed: 02/21/24 16:41> [facility] Disclaimer: The information contained in this section may have been updated after the patient was seen, as this information can be updated by other users. Medical History (Updated 02/21/24 @ 20:35 by Surya Rosario MD) Abnormal result of cardiovascular function study Typical angina Automatic implantable cardioverter-defibrillator in situ Chronic a-fib Surgical History (Updated 11/29/22 @ 14:42 by Paige Young) History of cardiac cath Social History Smoking Status: Never smoker second hand exposure: No alcohol intake: never substance use type: other current occupational status: disabled Travel in the last 8 weeks: None household members: spouse housing: house current occupational exposures/hazards: No caffeine: No <LAURA Desai Last Filed: 02/21/24 16:41> ROS Obtained: Yes Systems reviewed as appropriate & no additional complaints except as documented Physical Exam <LAURA Desai Last Filed: 02/21/24 16:41> General General appearance: alert and in no apparent distress Head Head exam: atraumatic and normal inspection Eye Eye exam: Present normal appearance, PERRL and EOMI ENT ENT exam: Present normal exam, normal oropharynx and mucous membranes moist Neck Neck exam: Present normal inspection, full ROM and trachea midline; Absent lymphadenopathy Chest Chest inspection: Present normal inspection and symmetric chest wall rise Respiratory Respiratory exam: Present normal lung sounds bilaterally; Absent accessory muscle use Cardiovascular Cardiovascular exam: Present regular rate, normal rhythm, normal heart sounds, +S1 and +S2 Abdominal Exam Abdominal exam: Present soft and normal bowel sounds; Absent tenderness, guarding or rebound Extremities Exam Extremities exam: Present normal inspection and full ROM Neurological Exam Neurological exam: Present alert, oriented X3 and CN II-XII intact Psychiatric Psychiatric exam: Present normal affect and normal mood Skin Skin exam: Present warm, dry and normal color Lymphatic Lymphatic Findings: no adenopathy Medical Decision Making <LAURA Desai Last Filed: 02/21/24 16:41> Vital Signs: 02/21/24 16:21 02/21/24 17:31 02/21/24 18:02 Temperature 98.0 F Temperature Source Oral Pulse Rate 70 70 Pulse Rate [Left] 73 Respiratory Rate 20 24 14 Blood Pressure 132/98 H 77/61 L Blood Pressure Mean Blood Pressure Source [Left Arm] Automatic Cuff 02 Sat by Pulse Oximetry 93 L 99 100 Oxygen Delivery Method Room Air Room Air 02/21/24 18:31 02/21/24 19:01 02/21/24 19:30 Temperature Temperature Source Pulse Rate 71 70 Pulse Rate [Left] Respiratory Rate 17 Blood Pressure 88/70 L 161/67 H 170/101 H Blood Pressure Mean 98 120 Blood Pressure Source [Left Arm] 02 Sat by Pulse Oximetry 97 96 97 Oxygen Delivery Method Room Air Room Air Room Air Lab Data Lab Results 02/21/24 16:36: WBC 4.4 L, RBC 3.35 L, Hgb 10.4 L, Hct 33.4 L, MCV 99.5 H, MCH 30.9, MCHC 31.1 L, RDW 17.1, Plt Count 145, MPV 9.0, Neut % (Auto) 70.3, Lymph % (Auto) 18.9, [place] % (Auto) 9.1, Eos % (Auto) 1.1, Baso % (Auto) 0.5, Neut # (Auto) 3.1, Lymph # (Auto) 0.8, [place] # (Auto) 0.4, Eos # (Auto) 0.1, Baso # (Auto) 0.0, Sodium 139, Potassium 4.3, Chloride 103, Carbon Dioxide 29, Anion Gap 11.3, BUN 38 H, Creatinine 8.10 H, Estimated Creat Clear 8, Estimated GFR 5 L*, Est GFR ( Amer) 6 L*, Glucose 119 H, Calcium 8.5, Total Bilirubin 0.9, AST 46 H, ALT 35, Alkaline Phosphatase 173 H, Troponin I 0.02, Total Protein 6.6, Albumin 3.9, Globulin 2.7, Albumin/Globulin Ratio 1.4 02/21/24 16:56: NT-Pro-B Natriuret Pep 80289 H 02/21/24 17:51: VBG pH 7.31, VBG pCO2 52.9 H, VBG pO2 40.5 H, VBG HCO3 25.7, VBG Total CO2 27.4 H, VBG O2 Saturation 68.5, VBG Base Excess -0.6, VBG Lactic Acid 1.4 02/21/24 20:00: Troponin I 0.02 02/21/24 16:36 02/21/24 16:36 Orders (Tests/Meds): ED MEDICATIONS Discontinued Medications Generic Name Dose Route Start Last Admin Trade Name Elham PRN Reason Stop Dose Admin Aspirin 324 mg 02/21/24 16:31 02/21/24 17:29 Aspirin 81mg Chewable Tablet PO 02/21/24 16:32 324 mg ONCE ONE Administration ORDERS Category Date Time Status CXR --portable [XR chest portable] Stat Exams 02/21/24 16:31 Completed POCUS Point of Care (ER Only) Stat Exams 02/21/24 17:22 Ordered CBC w/Auto Diff [Complete Blood Count Auto Diff] Stat Lab 02/21/24 16:36 Completed CMP [Comprehensive Metabolic Panel] Stat Lab 02/21/24 16:36 Completed NT Pro Brain Natriuretic Pep. Stat Lab 02/21/24 16:56 Completed Trop I [Troponin I] Stat Lab 02/21/24 16:36 Completed Troponin I Q3H Lab 02/21/24 20:00 Completed Troponin I Q3H Lab 02/21/24 22:45 Ordered VBG [Venous Blood Gas] Stat RT 02/21/24 17:51 Completed Medical Decision Narrative: In summary patient is a [age, sex] who presents to the emergency department for evaluation of [complaint]. Patient is [hemodynamically stable/unstable] upon arrival, [febrile/afebrile]. [Unremarkable physical exam, nonfocal exam versus focal remarkable exam]. Differential diagnosis includes [DDx]. Initial workup will be conducted with [hematologic labs, imaging, respiratory swab, describe workup]. Initial interventions include [crystalloid bolus, medications, p.o. challenge, etc.] initial workup reviewed by me [hematologic labs are remarkable for... Imaging remarkable for... Urinalysis remarkable for]. Upon repeat evaluation [patient had acceptable resolution of symptoms, had persistent pain for which additional interventions were conducted (describe interventions), tolerated p.o., was ambulatory, etc.]. Given this [patient is appropriate for discharge at this time and will be discharged with a prescription for... The case was discussed with hospital medicine regarding management and they will admit the patient their service for continued evaluation at this time... Etc.] Places where you can increase complexity: I informally interpreted the patient's chest x-ray or CT read and is remarkable for... 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 Ex: I considered chest x-ray on this patient however given that they have no oxygen requirement and are clear to auscultation all lung fournier will be deferred. Social determinants of health: Given that patient is undomiciled increases complexity. Given that patient has polysubstance abuse compounds all aspects of care <Surya Rosario MD - Last Filed: 02/21/24 20:35> Medical Records Medical records reviewed: Yes I reviewed the patient's medical records. Rudy Inquiry Pt receiving controlled substance: No Rudy was queried for this patient: No Vital Signs: 02/21/24 16:21 02/21/24 17:31 02/21/24 18:02 Temperature 98.0 F Temperature Source Oral Pulse Rate 70 70 Pulse Rate [Left] 73 Respiratory Rate 20 24 14 Blood Pressure 132/98 H 77/61 L Blood Pressure Mean Blood Pressure Source [Left Arm] Automatic Cuff 02 Sat by Pulse Oximetry 93 L 99 100 Oxygen Delivery Method Room Air Room Air 02/21/24 18:31 02/21/24 19:01 02/21/24 19:30 Temperature Temperature Source Pulse Rate 71 70 Pulse Rate [Left] Respiratory Rate 17 Blood Pressure 88/70 L 161/67 H 170/101 H Blood Pressure Mean 98 120 Blood Pressure Source [Left Arm] 02 Sat by Pulse Oximetry 97 96 97 Oxygen Delivery Method Room Air Room Air Room Air Lab Data Lab Results 02/21/24 16:36: WBC 4.4 L, RBC 3.35 L, Hgb 10.4 L, Hct 33.4 L, MCV 99.5 H, MCH 30.9, MCHC 31.1 L, RDW 17.1, Plt Count 145, MPV 9.0, Neut % (Auto) 70.3, Lymph % (Auto) 18.9, [place] % (Auto) 9.1, Eos % (Auto) 1.1, Baso % (Auto) 0.5, Neut # (Auto) 3.1, Lymph # (Auto) 0.8, [place] # (Auto) 0.4, Eos # (Auto) 0.1, Baso # (Auto) 0.0, Sodium 139, Potassium 4.3, Chloride 103, Carbon Dioxide 29, Anion Gap 11.3, BUN 38 H, Creatinine 8.10 H, Estimated Creat Clear 8, Estimated GFR 5 L*, Est GFR ( Amer) 6 L*, Glucose 119 H, Calcium 8.5, Total Bilirubin 0.9, AST 46 H, ALT 35, Alkaline Phosphatase 173 H, Troponin I 0.02, Total Protein 6.6, Albumin 3.9, Globulin 2.7, Albumin/Globulin Ratio 1.4 02/21/24 16:56: NT-Pro-B Natriuret Pep 53933 H 02/21/24 17:51: VBG pH 7.31, VBG pCO2 52.9 H, VBG pO2 40.5 H, VBG HCO3 25.7, VBG Total CO2 27.4 H, VBG O2 Saturation 68.5, VBG Base Excess -0.6, VBG Lactic Acid 1.4 02/21/24 20:00: Troponin I 0.02 Orders (Tests/Meds): ED MEDICATIONS Discontinued Medications Generic Name Dose Route Start Last Admin Trade Name Freq PRN Reason Stop Dose Admin Aspirin 324 mg 02/21/24 16:31 02/21/24 17:29 Aspirin 81mg Chewable Tablet PO 02/21/24 16:32 324 mg ONCE ONE Administration ORDERS Category Date Time Status CXR --portable [XR chest portable] Stat Exams 02/21/24 16:31 Completed POCUS Point of Care (ER Only) Stat Exams 02/21/24 17:22 Ordered CBC w/Auto Diff [Complete Blood Count Auto Diff] Stat Lab 02/21/24 16:36 Completed CMP [Comprehensive Metabolic Panel] Stat Lab 02/21/24 16:36 Completed NT Pro Brain Natriuretic Pep. Stat Lab 02/21/24 16:56 Completed Trop I [Troponin I] Stat Lab 02/21/24 16:36 Completed Troponin I Q3H Lab 02/21/24 20:00 Completed Troponin I Q3H Lab 02/21/24 22:45 Ordered VBG [Venous Blood Gas] Stat RT 02/21/24 17:51 Completed HEART Score History (anamnesis): Moderately suspicious ECG: Non-specific disturbance Age: >65 years Risk factors: 3 or more risk factors Troponin: </= normal limit HEART Score: 6 Medical Decision Narrative: 73-year-old female history of A-fib not on anticoagulation, ESRD on Monday dialysis (last received dialysis yesterday, still producing urine) hypertension, hyperlipidemia, diabetes, cirrhosis, CHF presenting with chest pain. Patient states that chest pain started yesterday, 5/7 with shortness of breath. She states that she was on the couch when it started. Shortness of breath is exertional, nonpositional. Chest pain is left of sternum, does not radiate, sharp and intermittent. Nothing in particular makes it better or worse. No obvious association with shortness of breath. Patient has not been coughing, febrile or chilled, nausea or vomiting, no sick contacts he knows. History was obtained via conversation with patient. On arrival, patient hemodynamically stable, alert, [oriented x4, ][appropriate, ]GCS [15], moving all extremities spontaneously, pupils equal and reactive to light. Full physical exam performed and significant for chronically ill-appearing woman in no acute distress. Very pleasant. Lungs are clear to auscultation bilaterally anterior and posteriorly. She does have 1+ lower extremity nonpitting edema. Pulses are equal and symmetric. Cardiac exam within normal limits. Abdomen is soft, nontender, nondistended. Fistula in right upper extremity with good thrill. Differential includes effusion, tamponade, microvascular coronary artery disease, CHF, ACS, PA, coronary artery dissection, pneumothorax, PE, dissection, pericarditis, myocarditis, pneumothorax, aortic aneurysm, pneumonia, bronchitis, among others. Patient was given 324 mg aspirin for symptomatic management[ and correction of underlying abnormalities]. Workup independently interpreted and significant for nonactionable CBC. Chemistry with creatinine 8.1, BUN 38. Potassium 4.3. LFTs nonactionable. Patient's troponin negative. BNP elevated almost 14,000, given 40 mg IV Lasix for this. Chest x-ray with pulmonary vascular congestion, but no overt edema. Stable cardiomegaly. See radiology read for full review of final results. [Independent interpretation of EKG shows] atrially paced rhythm 69 beats a minute prolonged ME, QRS intervals and borderline prolonged QT interval. Leftward axis. Heart score 6. On reevaluation, patient still continued chest pain. Bedside cardiac ultrasound with posterior/RCA regional wall motion abnormality and mild right heart strain with septal bowing. No effusion. I am concerned for unstable angina in the setting of continued chest pain with regional wall abnormality and focal ultrasound findings, [facility] contacted the cardiology and nephrology. Given patient presentation, workup, history, this most likely represents unstable angina. Because patient high risk for clinical decompensation if discharged, deemed appropriate for transfer and inpatient admission. Results were relayed to patient who voiced understanding and patient was agreeable to transfer, inpatient admission, and management. Patient was graciously accepted and transferred to [place] for further definitive management, under Dr. Minaya. Procedures <Surya Rosario MD - Last Filed: 02/21/24 20:35> Limited Ultrasound Indication:: Limited cardiac ultrasound Indication: Chest pain Identified cardiac views: -Cardiac parasternal long axis -Cardiac parasternal short axis Findings: -Regional wall motion abnormality posterior/right coronary artery distribution ? Mild right heart strain with septal bowing ? No evidence of effusion ? EPSS 12.6 ? Moderate mitral regurg Impression: -Right heart strain with septal bowing, posterior wall motion abnormality of the left ventricle, decreased systolic function with EPSS of 12.6 and moderate mitral regurg. No effusion. Images were saved to permanent archive The study was technically adequate CPT: 24979 This study was performed by me, and I personally interpreted all images/videos. Based on my clinical judgement, these images were adequate and did not necessitate further imaging. Critical Care <Surya Rosario MD - Last Filed: 02/21/24 20:35> Critical Care Time Critical Care Time: Yes (cardiac, neph) Attestation: On 02/21/24, the high probability of a clinically significant, sudden or life threatening deterioration of the following system(s) required my full and direct attention, intervention and personal management. The time I documented below is in addition to time spent performing reported procedures but includes the following listed in this critical care notation. Total Time Total Critical Care Time: 45
--- OUTSIDE RECORDS SUMMARY | 2024-02-21 16:52 | XMS_ITS | Summary of Care ---
Author Name Unknown Organization [facility] Address [address] [place] [address]- Encounter 08/27/19 - 09/06/19 [facility] [address] [place] [address] Encounter Diagnosis ESRD, cirrhosis(Discharge Diagnosis) - 09/04/19 Attending Physician: Lesli Dean DO Admitting Physician: Lesli Dean DO Referring Physician: Rangel Jerome Allergies, Adverse Reactions, Alerts No Known Medication Allergies Medications acetaminophen 325 mg oral tablet 325 mg = 1 tab, Tab, Oral, q4hr PRN, 50 tab, 0 Refill(s), PAIN (Scale 1-3), Print Requisition Start Date: 09/04/19 Status: Ordered atorvastatin 20 mg oral tablet 20 mg = 1 tab, Tab, Oral, QHS, 30 tab, 1 Refill(s), Print Requisition Start Date: 09/04/19 Status: Ordered Calmoseptine 0.44%-20.6% topical ointment See Instructions, 1 bottle, 1 Refill(s), apply topical to wound, Print Requisition Start Date: 09/04/19 Status: Ordered carvedilol 12.5 mg oral tablet 12.5 mg, 1 tab, Tab, Oral, BIDmeals, 60 tab, 1 Refill(s), Print Requisition Start Date: 09/04/19 Status: Ordered epoetin krystyna-epbx 10,000 units/mL preservative-free injectable solution 4,000 units = 0.4 mL, Soln-Inj, Subcutaneous, qTHU, 0 Refill(s) Start Date: 09/04/19 Status: Ordered ergocalciferol 50,000 intl units (1.25 mg) oral capsule 50,000 IntlUnit = 1 cap, Cap, Oral, qSAT, 5 cap, 1 Refill(s), last given 08/24/19, Print Requisition Start Date: 09/04/19 Status: Ordered ferrous sulfate 324 mg (65 mg elemental iron) oral delayed release tablet 324 mg = 1 tab, Tab-DR, Oral, Daily, 30 tab, 1 Refill(s), Print Requisition Start Date: 09/04/19 Status: Ordered folic acid 1 mg oral tablet 1 mg = 1 tab, Tab, Oral, Daily, 30 tab, 1 Refill(s), Print Requisition Start Date: 09/04/19 Status: Ordered Lac-Hydrin 12% topical lotion 1 kevin, Lotion, TOP BID, PRN, 1 tube(s), Refill(s) 1, Dry skin, Print Requisition Start Date: 09/04/19 Status: Ordered lactulose 10 g/15 mL oral syrup 15 gm = 22.5 mL, Syrup, Oral, TID, 2,025 mL, 1 Refill(s), Dispense: 30 day, titrate to 4BM daily, Stop date 11/04/19 9:50:00 EST, Print Requisition Start Date: 09/05/19 Stop Date: 11/04/19 Status: Ordered melatonin 3 mg oral tablet 6 mg = 2 tab, Tab, Oral, QHS PRN, 60 tab, 0 Refill(s), Insomnia, Print Requisition Start Date: 09/04/19 Status: Ordered ondansetron 4 mg oral tablet, disintegrating 4 mg = 1 tab, Tab-Dis, Oral, q4hr PRN, 60 tab, 0 Refill(s), Nausea or vomiting, Print Requisition Start Date: 09/04/19 Status: Ordered pantoprazole 40 mg oral delayed release tablet 40 mg = 1 tab, Tab-DR, Oral, BIDAC, 60 tab, 1 Refill(s), Print Requisition Start Date: 09/04/19 Status: Ordered rifAXIMin 550 mg oral tablet 550 mg, 1 tab, Tab, Oral, BID, 60 tab, 1 Refill(s), Indication: Hepatic Encephalopathy, Print Requisition Start Date: 09/05/19 Status: Ordered triamcinolone 0.1% topical cream 1 kevin, Cream, TOP BID, 1 tube(s), Refill(s) 0, L breast (underside), Print Requisition Start Date: 09/04/19 Status: Ordered vancomycin 25 mg/mL oral liquid 125 mg, 5 mL, Powder-Recon, Oral, QID, 180 mL, 0 Refill(s), Indication: Clostridium Difficile, Print Requisition Start Date: 09/05/19 Stop Date: 09/14/19 Status: Ordered Problem List Condition Effective Dates Status Health Status Inform ant Balance impairment(Confirmed) Active Cognitive impairment(Confirmed) Active Impaired exercise tolerance(Confirmed) Active Impaired exercise tolerance(Confirmed) Active Muscle weakness of lower extremity(Confirmed) Active Physical mobility impairment(Confirmed) Active Self -care deficit(Confirmed) Active Results Laboratory List Name Date Glucose, POC 09/06/19 Glucose, POC 09/06/19 Ammonia HSL 09/06/19 Complete Blood Count w/Auto Diff HSL (CB C w/Auto Diff HSL) 09/06/19 Comprehensive Metabolic Panel HSL (CMP H SL) 09/06/19 Manual Diff HSL 09/06/19 Phosphorus HSL 09/06/19 Glucose, POC 09/05/19 Magnesium HSL 09/05/19 C difficile Toxin Gene (PCR) HSL 9 Ammonia HSL 09/04/19 Automated Diff HSL 09/04/19 Complete Blood Count w/Auto Diff HSL (CB C w/Auto Diff HSL) 09/04/19 Comprehensive Metabolic Panel HSL (CMP H SL) 09/04/19 Magnesium HSL 09/04/19 Phosphorus HSL 09/04/19 Magnesium HSL 09/03/19 Ammonia HSL 09/02/19 Complete Blood Count w/Auto Diff HSL (CB C w/Auto Diff HSL) 09/02/19 Comprehensive Metabolic Panel HSL (CMP H SL) 09/02/19 Manual Diff HSL 09/02/19 Phosphorus HSL 09/02/19 Complete Blood Count w/Auto Diff HSL (CB C w/Auto Diff HSL) 08/30/19 Manual Diff HSL 08/30/19 Ferritin, Serum - QST 08/28/19 Folate (Folic Acid), Serum - QST 9 Iron/TIBC - QST 08/28/19 Manual Diff HSL 08/28/19 Prealbumin HSL 08/28/19 Transferrin - QST 08/28/19 Vitamin B12 - QST 08/28/19 Vitamin D 25-OH D/D2/D3 LC/MS/MS - QST 1 10/28/18 TSH - QST 08/27/19 LABORATORY Most recent to oldest [Reference Range]: 1 2 3 Folate, Serum - QST 16.4 ng/mL 1 *NA* (08/28/19 6:03 AM) TSH - QST [0.40-4.50 mIUnits/L] 3.67 mIUnits/L 2 *NA* (08/27/19 4:00 PM) Vitamin B12 - QST [200-1100 pg/mL] 439 pg/mL 3 *NA* (08/28/19 6:03 AM) Vitamin D, 25-OH, Total - QST [30-100 ng/mL] 7 ng/mL 4 *LOW* (08/28/19 6:03 AM) Vitamin D, 25-OH, D3 - QST <4 ng/mL 5 *NA* (08/28/19 6:03 AM) Vitamin D, 25-OH, D2 - QST 7 ng/mL 6 *NA* (08/28/19 6:03 AM) Glucose POC RALS [74-106 mg/dL] 61 mg/dL *LOW* (09/06/19 11:32 AM) 75 mg/dL (09/06/19 5:53 AM) 93 mg/dL (09/05/19 9:43 PM) WBC HSL [4.5-11.5 x10(3)/mcL] 2.1 x10(3)/mcL *LOW* (09/06/19 4:35 AM) 4.7 x10(3)/mcL (09/04/19 5:42 AM) 2.3 x10(3)/mcL *LOW* (09/02/19 7:20 AM) RBC HSL [3.70-5.20 x10(6)/mcL] 3.15 x10(6)/mcL *LOW* (09/06/19 4:35 AM) 3.36 x10(6)/mcL *LOW* (09/04/19 5:42 AM) 3.44 x10(6)/mcL *LOW* (09/02/19 7:20 AM) Hemoglobin HSL [12.0-15.7 gm/dL] 8.0 gm/dL 7 *CRIT* (09/06/19 4:35 AM) 8.7 gm/dL *LOW* (09/04/19 5:42 AM) 8.8 gm/dL *LOW* (09/02/19 7:20 AM) Hematocrit HSL [35.0-46.0 %] 27.7 % *LOW* (09/06/19 4:35 AM) 29.7 % *LOW* (09/04/19 5:42 AM) 30.4 % *LOW* (09/02/19 7:20 AM) MCV HSL [78.6-102.2 fL] 87.9 fL (09/06/19 4:35 AM) 88.4 fL (09/04/19 5:42 AM) 88.4 fL (09/02/19 7:20 AM) MCH HSL [26.0-34.0 pg] 25.4 pg *LOW* (09/06/19 4:35 AM) 25.9 pg *LOW* (09/04/19 5:42 AM) 25.6 pg *LOW* (09/02/19 7:20 AM) MCHC HSL [31.8-35.1 gm/dL] 28.9 gm/dL *LOW* (09/06/19 4:35 AM) 29.3 gm/dL *LOW* (09/04/19 5:42 AM) 28.9 gm/dL *LOW* (09/02/19 7:20 AM) Platelet HSL [150-450 x10(3)/mcL] 169 x10(3)/mcL (09/06/19 4:35 AM) 202 x10(3)/mcL (09/04/19 5:42 AM) 220 x10(3)/mcL (09/02/19 7:20 AM) RDW-CV% HSL [11.7-14.4 %] 15.8 % *HI* (09/06/19 4:35 AM) 15.9 % *HI* (09/04/19 5:42 AM) 16.1 % *HI* (09/02/19 7:20 AM) RDW-SD HSL [36.4-46.3 fL] 49.2 fL *HI* (09/06/19 4:35 AM) 50.3 fL *HI* (09/04/19 5:42 AM) 50.3 fL *HI* (09/04/19 5:42 AM) MPV HSL 9.5 *NA* (09/06/19 4:35 AM) 9.5 *NA* (09/04/19 5:42 AM) 9.4 *NA* (09/02/19 7:20 AM) Differential? HSL Yes *NA* (09/06/19 4:35 AM) Yes *NA* (09/02/19 7:20 AM) Yes *NA* (08/30/19 6:10 AM) Neutrophil Auto HSL [39.6-77.8 %] 68.7 % (09/04/19 5:42 AM) Lymphocyte Auto HSL [17.5-52.8 %] 16.1 % *LOW* (09/04/19 5:42 AM) Monocyte Auto HSL [3.0-10.4 %] 14.4 % *HI* (09/04/19 5:42 AM) Eosinophil Auto HSL [0.0-7.0 %] 0.4 % (09/04/19 5:42 AM) Basophil Auto HSL [0.0-0.9 %] 0.2 % (09/04/19 5:42 AM) Immature Gran Auto HSL [0.0-0.5 %] 0.2 % (09/04/19 5:42 AM) Neutrophil Absolute HSL [1.60-6.90 x10(3)/mcL] 3.24 x10(3)/mcL (09/04/19 5:42 AM) Lymphocyte Absolute HSL [0.9-2.8 x10(3)/mcL] 0.8 x10(3)/mcL *LOW* (09/04/19 5:42 AM) Monocyte Absolute HSL [<=1.00 x10(3)/mcL] 0.68 x10(3)/mcL (09/04/19 5:42 AM) Eosinophil Absolute HSL [0.00-0.40 x10(3)/mcL] 0.02 x10(3)/mcL (09/04/19 5:42 AM) Basophil Absolute HSL [0.00-0.05 x10(3)/mcL] 0.01 x10(3)/mcL (09/04/19 5:42 AM) Immature Gran Absolute HSL [0.00-0.04 x10(3)/mcL] 0.01 x10(3)/mcL (09/04/19 5:42 AM) Segs Man HSL [40-78 %] 44 % (09/06/19 4:35 AM) 60 % (09/02/19 7:20 AM) 40 % (08/30/19 6:10 AM) Band Man HSL [<=5 %] 4 % (09/02/19 7:20 AM) Lymphocyte Man HSL [18-53 %] 56 % *HI* (09/06/19 4:35 AM) 28 % (09/02/19 7:20 AM) 36 % (08/30/19 6:10 AM) Monocyte Man HSL [3-10] 0 *LOW* (09/06/19 4:35 AM) 8 (09/02/19 7:20 AM) 20 *HI* (08/30/19 6:10 AM) Eosinophil Man HSL [<=7 %] 0 % (09/06/19 4:35 AM) 0 % (09/02/19 7:20 AM) 4 % (08/30/19 6:10 AM) Basophil Man HSL [<=1 %] 0 % (09/06/19 4:35 AM) 0 % (09/02/19 7:20 AM) 0 % (08/30/19 6:10 AM) Platelet Estimation HSL Adequate (09/06/19 4:35 AM) Adequate (09/02/19 7:20 AM) Adequate (08/30/19 6:10 AM) RBC Morphology HSL Abnormal *ABN* (09/06/19 4:35 AM) Abnormal *ABN* (09/02/19 7:20 AM) Abnormal *ABN* (08/30/19 6:10 AM) Hypochromasia HSL 1+ *ABN* (09/06/19 4:35 AM) 1+ *ABN* (09/02/19 7:20 AM) 1+ *ABN* (08/30/19 6:10 AM) Anisocyte HSL 1+ *ABN* (09/06/19 4:35 AM) 1+ *ABN* (09/02/19 7:20 AM) 1+ *ABN* (08/30/19 6:10 AM) Poikilocyte HSL 1+ *ABN* (09/02/19 7:20 AM) 1+ *ABN* (08/28/19 6:03 AM) Ovalo/Elliptocyte HSL Rare (09/02/19 7:20 AM) Rare (08/28/19 6:03 AM) Tear Cell HSL Rare *ABN* (09/06/19 4:35 AM) 1+ *ABN* (09/02/19 7:20 AM) 1+ *ABN* (08/30/19 6:10 AM) Schistocyte HSL Rare *ABN* (08/28/19 6:03 AM) Target Cell HSL Rare *ABN* (08/28/19 6:03 AM) Reason C Diff Toxin HSL Symptomatic (09/04/19 6:16 PM) Toxogenic C Diff HSL Pos 8 *CRIT* (09/04/19 6:16 PM) [id number]-[id number] HSL [Presumptive Neg] Presumptive Neg (09/04/19 6:16 PM) Estimated Creatinine Clearance 19.61 mL/min (09/06/19 10:54 AM) 20.19 mL/min (09/05/19 6:39 AM) 20.42 mL/min (09/04/19 3:47 PM) Creatinine Level 3.14 mg/dL (09/06/19 4:35 AM) 3.05 mg/dL (09/04/19 5:42 AM) 3.31 mg/dL (09/02/19 7:20 AM) Iron, Total - QST [45-160 mcg/dL] 57 mcg/dL *NA* (08/28/19 6:03 AM) Iron Binding Capacity - QST [250-450] 124 *LOW* (08/28/19 6:03 AM) Iron Saturation - QST [16-45 % (calc)] 46 % (calc) 9 *HI* (08/28/19 6:03 AM) Transferrin - QST [188-341 mg/dL] 100 mg/dL 10 *LOW* (08/28/19 6:03 AM) Ferritin - QST [16-288 ng/mL] 228 ng/mL 11 *NA* (08/28/19 6:03 AM) Sodium HSL [138-146 mmol/L] 138 mmol/L (09/06/19 4:35 AM) 140 mmol/L (09/04/19 5:42 AM) 141 mmol/L (09/02/19 7:20 AM) Potassium HSL [3.6-5.1 mmol/L] 3.6 mmol/L (09/06/19 4:35 AM) 3.9 mmol/L (09/04/19 5:42 AM) 3.8 mmol/L (09/02/19 7:20 AM) Chloride HSL [101-111 mmol/L] 106 mmol/L (09/06/19 4:35 AM) 107 mmol/L (09/04/19 5:42 AM) 104 mmol/L (09/02/19 7:20 AM) Carbon Dioxide HSL [22.0-32.0 mmol/L] 28.0 mmol/L (09/06/19 4:35 AM) 28.0 mmol/L (09/04/19 5:42 AM) 31.0 mmol/L (09/02/19 7:20 AM) Anion Gap HSL [8-16 mmol/L] 8 mmol/L (09/06/19 4:35 AM) 9 mmol/L (09/04/19 5:42 AM) 10 mmol/L (09/02/19 7:20 AM) Glucose HSL [74-118 mg/dL] 61 mg/dL *LOW* (09/06/19 4:35 AM) 88 mg/dL (09/04/19 5:42 AM) 101 mg/dL (09/02/19 7:20 AM) BUN HSL [8.0-26.0 mg/dL] 18.0 mg/dL (09/06/19 4:35 AM) 19.0 mg/dL (09/04/19 5:42 AM) 17.0 mg/dL (09/02/19 7:20 AM) Creatinine HSL [0.44-1.00 mg/dL] 3.14 mg/dL *HI* (09/06/19 4:35 AM) 3.05 mg/dL *HI* (09/04/19 5:42 AM) 3.31 mg/dL *HI* (09/02/19 7:20 AM) eGFR-AA HSL 30 *NA* (09/06/19 4:35 AM) 31 *NA* (09/04/19 5:42 AM) 28 *NA* (09/02/19 7:20 AM) eGFR-Non AA HSL 25 *NA* (09/06/19 4:35 AM) 26 *NA* (09/04/19 5:42 AM) 23 *NA* (09/02/19 7:20 AM) BUN/Creat Ratio HSL [5.0-20.0 ratio] 5.7 ratio (09/06/19 4:35 AM) 6.2 ratio (09/04/19 5:42 AM) 5.1 ratio (09/02/19 7:20 AM) Calcium Total HSL [8.9-10.3 mg/dL] 8.3 mg/dL *LOW* (09/06/19 4:35 AM) 8.5 mg/dL *LOW* (09/04/19 5:42 AM) 8.6 mg/dL *LOW* (09/02/19 7:20 AM) Albumin HSL [3.5-5.0 gm/dL] 2.2 gm/dL *LOW* (09/06/19 4:35 AM) 2.5 gm/dL *LOW* (09/04/19 5:42 AM) 2.6 gm/dL *LOW* (09/02/19 7:20 AM) Prealbumin HSL [18-38 mg/dL] 7 mg/dL *LOW* (08/28/19 6:03 AM) Protein Total HSL [6.5-8.1 gm/dL] 5.1 gm/dL *LOW* (09/06/19 4:35 AM) 5.3 gm/dL *LOW* (09/04/19 5:42 AM) 5.8 gm/dL *LOW* (09/02/19 7:20 AM) Bilirubin Total HSL [0.30-1.20 mg/dL] 0.72 mg/dL (09/06/19 4:35 AM) 0.78 mg/dL (09/04/19 5:42 AM) 0.96 mg/dL (09/02/19 7:20 AM) Magnesium HSL [1.8-2.5 mg/dL] 1.8 mg/dL (09/05/19 6:10 AM) 1.9 mg/dL (09/04/19 5:42 AM) 1.8 mg/dL (09/03/19 5:40 AM) Phosphorus HSL [2.5-4.6 mg/dL] 2.8 mg/dL (09/06/19 4:35 AM) 2.6 mg/dL (09/04/19 5:42 AM) 2.9 mg/dL (09/02/19 7:20 AM) Alkaline Phosphatase HSL [32-91 IU/L] 207 IU/L *HI* (09/06/19 4:35 AM) 243 IU/L *HI* (09/04/19 5:42 AM) 237 IU/L *HI* (09/02/19 7:20 AM) AST HSL [15-41 IU/L] 25 IU/L (09/06/19 4:35 AM) 19 IU/L (09/04/19 5:42 AM) 23 IU/L (09/02/19 7:20 AM) ALT HSL [14-54 IU/L] 12 IU/L *LOW* (09/06/19 4:35 AM) 9 IU/L *LOW* (09/04/19 5:42 AM) 12 IU/L *LOW* (09/02/19 7:20 AM) Ammonia HSL [16-60 mcg/dL] 94 mcg/dL *HI* (09/06/19 4:35 AM) 90 mcg/dL *HI* (09/04/19 5:42 AM) 120 mcg/dL *HI* (09/02/19 7:20 AM) 1Result Comment: Reference Range Low: <3.4 Borderline: 3.4-5.4 Normal: >5.4 Lab test performed by: Lab Mnemonic: [facility] [place] [address] [place] [address] BOGDAN GODINEZ MD 2Result Comment: Lab test performed by: Lab Mnemonic: [facility] [address] [place] [address] BOGDAN GODINEZ MD 3Result Comment: Lab test performed by: Lab Mnemonic: [facility] [address] [place] [address] BOGDAN GODINEZ MD 4Result Comment: For more information on this test, go to: http://education.[employer]/faq/OPF571 (This link is being provided for informational/educational purposes only.) 25-OHD3 indicates both endogenous production and supplementation. 25-OHD2 is an indicator of exogenous sources, such as diet or supplementation. Therapy is based on measurement of Total 25-OHD, with levels <20 ng/mL indicative of Vitamin D deficiency, while levels between 20 ng/mL and 30 ng/mL suggest insufficiency. Optimal levels are > or = 30 ng/mL. 5Result Comment: Reference Range Not established This test was developed and its analytical performance characteristics have been determined by [employer]. It has not been cleared or approved by the FDA. This assay has been validated pursuant to the CLIA regulations and is used for clinical purposes. 6Result Comment: Reference Range Not established This test was developed and its analytical performance characteristics have been determined by [employer]. It has not been cleared or approved by the FDA. This assay has been validated pursuant to the CLIA regulations and is used for clinical purposes. Lab test performed by: Lab Mnemonic: [facility] [place] [address] [facility] [address] [place] [address] BOGDAN GODINEZ MD 7Result Comment: Called to Dr Lea 09/06/19 at 1129 hr 8Result Comment: Critical Result called to and read back by Dr Stevenson at 1210_ by SWETHA Bush(AMT)_. 9Result Comment: Lab test performed by: Lab Mnemonic: [facility] [address] [facility] [place] [address] BOGDAN GODINEZ MD 10Result Comment: Lab test performed by: Lab Mnemonic: [facility] [address] [place] [address] BOGDAN GODINEZ MD 11Result Comment: Lab test performed by: Lab Mnemonic: [facility] [address] [place] [address] BOGDAN GODINEZ MD Vital Signs Most recent to oldest [Reference Range]: 1 2 3 Temperature Oral F [96.4-99.1 DegF] 98 DegF (09/06/19 7:51 AM) 97.7 DegF (09/05/19 8:40 PM) 97.6 DegF (09/05/19 7:44 AM) Peripheral Pulse Rate [60-100 bpm] 65 bpm (09/06/19 7:51 AM) 70 bpm (09/05/19 8:40 PM) 68 bpm (09/05/19 5:24 PM) Respiratory Rate [14-20 br/min] 20 br/min (09/06/19 7:51 AM) 18 br/min (09/05/19 8:40 PM) 18 br/min (09/05/19 7:44 AM) Blood Pressure [90-140/60-90 mmHg] 156/97mmHg *HI* (09/06/19 7:51 AM) 124/82mmHg (09/05/19 8:40 PM) 138/70mmHg (09/05/19 5:24 PM) Extremity used to obtain blood pressure Left Arm (09/06/19 7:51 AM) Left Arm (09/05/19 8:40 PM) Left Arm (09/05/19 7:44 AM) Cuff Size. Medium (09/06/19 7:51 AM) Medium (09/05/19 8:40 PM) Medium (09/05/19 7:44 AM) Temperature Oral [35.8-37.3 DegC] 37.2 DegC (09/03/19 8:20 PM)
--- OUTSIDE RECORDS SUMMARY | 2024-02-21 16:52 | XMS_ITS | Continuity of Care Document ---
Author Name Unknown Organization [facility] Address [address] [place] [address]- Care Team Providers Care Security Associate Name Role Phone ANGELINA WEBB Primary Care Physician [phone] Encounter 07/28/23 - 08/14/23 [facility] [address] [place] [address]- Allergies, Adverse Reactions, Alerts No Known Medication Allergies Immunizations Given and Recorded Vaccine Date Status Refusal Reason influenza (LAIV) 06/18/20 Recorded pneumococcal (PCV13) 09/07/19 Recorded Medications acetaminophen 325 mg oral capsule 325 mg = 1 cap, Oral, TID, 0 Refill(s) Start Date: 11/15/22 Status: Ordered Albuterol (Eqv-Proventil HFA) 90 mcg/inh inhalation aerosol = 2 puffs, Inhale, As Needed, 0 Refill(s) Start Date: 08/02/23 Status: Ordered atorvastatin 20 mg oral tablet 20 mg = 1 tab, Oral, Daily, 0 Refill(s) Start Date: 11/15/22 Status: Ordered bisoprolol 5 mg oral tablet 5 mg = 1 tab, Oral, Daily, 0 Refill(s) Start Date: 08/02/23 Status: Ordered ferrous sulfate 324 mg (65 mg elemental iron) oral delayed release tablet 324 mg = 1 tab, Oral, Daily, 0 Refill(s) Start Date: 07/31/23 Status: Ordered folic acid 1 mg, Daily, 0 Refill(s) Start Date: 08/17/21 Status: Ordered insulin glargine (concentrated) 300 units/mL subcutaneous solution 6 units, Subcutaneous, hs, # 1.5 mL, 0 Refill(s) Start Date: 08/02/23 Status: Ordered lactulose 20 g oral powder for reconstitution See Instructions, 0 Refill(s) Start Date: 08/17/21 Status: Ordered Lasix 80 mg oral tablet 80 mg = 1 tab, Oral, Daily, # 30 tab, 0 Refill(s) Start Date: 08/02/23 Status: Ordered melatonin 5 mg oral capsule 5 mg = 1 cap, Oral, every day at bedtime, 0 Refill(s) Start Date: 11/15/22 Status: Ordered pantoprazole 40 mg oral delayed release tablet 40 mg = 1 tab, Oral, Daily, # 30 tab, 0 Refill(s) Start Date: 07/31/23 Status: Ordered prednisoLONE 10 mg oral tablet, disintegrating 5 mg, Oral, Daily, 0 Refill(s) Start Date: 12/10/21 Status: Ordered Renvela 800 mg oral tablet See Instructions, 0 Refill(s) Start Date: 08/17/21 Status: Ordered Xifaxan See Instructions, 0 Refill(s) Start Date: 08/17/21 Status: Ordered Zofran 4 mg oral tablet 4 mg = 1 tab, Oral, As Needed, # 12 tab, 0 Refill(s) Start Date: 07/31/23 Status: Ordered Problem List Condition Confirmation Course Effective Dates Status Health Status Informant Anemia in end stage renal disease Confirmed Active Arteriovenous fistula Confirmed Active CAD - Coronary artery disease Confirmed Active Chronic combined systolic and diastolic heart failure Confirmed Active Dependence on hemodialysis due to end stage renal disease Confirmed Active Dependence on supplemental oxygen Confirmed Active Diabetes mellitus type II Confirmed Active Hypertension in chronic kidney disease stage 5 due to type II diabetes mellitus Confirmed Active Mixed hyperlipidemia Confirmed Active Cataract of right eye Confirmed Active Patient immunocompromised Confirmed Active PVD - peripheral vascular disease Confirmed Active Sarcoidosis of lung Confirmed Active Secondary hyperparathyroidism of renal origin Confirmed Active Sick sinus syndrome Confirmed Active Cirrhosis of liver Confirmed Active Procedures Procedure Date Related Diagnosis Body Site Status Acquired arteriovenous fistula 1 Completed Cardiac pacemaker Complet ed Cataract surgery of left eye Completed Cholecystectomy Completed 1Right. Social History Social History Type Response Smoking Status Never (less than 100 in lifetime) entered on: 11/15/22 Sex Patient Care team information Care Team Personnel Name: Abby Durham Position: External Provider - Gmat Instructor Member Role: Gmat Instructor Address: Address: [address] [place] [address]- Name: [facility] [employer] Position: External Provider - Clinic Member Role: Dialysis Center Address: Address: [address] [place] [address]- Name: LEONARD Muniz, Josselyn Position: Nurse - [facility] Member Role: Vegetable Handler Name: ANGELINA WEBB Position: External Provider - PCP Member Role: Primary Care Provider Address: Address: [address] [place] [id number]- Care Team Related Persons Name: Jairon Burk Name: Robina Burk
--- NOTE | 2024-02-21 17:01 | PC.NURSE ---
called [facility] for us guided IV
[2024-02-21] MEDS: ASPIRIN 81MG CHEWABLE TABLET 324 MG PO (17:29)
[2024-02-21 17:51] LABS: Basophils % 0.5 % (0.1-2.0); Eosinophils # 0.1 K/mm3 (0.0-0.4); Eosinophils % 1.1 % (0.1-12.0); Hematocrit 33.4 % (37.0-47.0); Hemoglobin 10.4 g/dL (12.2-16.2); Lymphocytes # 0.8 K/mm3 (0.7-4.5); Lymphocytes % 18.9 % (10-50); Mean Corpuscular HGB Conc 31.1 g/dL (31.8-35.4); Mean Corpuscular Hemoglobin 30.9 pg (27.0-31.2); Mean Corpuscular Volume 99.5 fl (81-99); Monocytes # 0.4 K/mm3 (0.1-1.0); Monocytes % 9.1 % (1.7-9.3); Neutrophils # 3.1 K/mm3 (1.8-7.8); Neutrophils % 70.3 % (37.0-80.0); Platelet Count 145 K/mm3 (142-424); Red Blood Count 3.35 M/mm3 (4.20-5.40); Red Cell Distribution Width 17.1 % (11.5-17.5); White Blood Count 4.4 K/mm3 (4.8-10.8)
--- NOTE | 2024-02-21 17:51 | PC.NURSE ---
respiratory aware of vbg, blood in the lab
[2024-02-21 17:55] LABS: Lactate Venous 1.4 mmol/L (0.4-2.0); VBG Base Excess -0.6 mmol/L (-2.4-2.3); VBG HCO3 25.7 mmol/L (23-30); VBG Oxygen Saturation 68.5 % (50-70); VBG PH 7.31 mmol/L (7.31-7.41); VBG PO2 40.5 mmol/L (28-40); VBG Total CO2 27.4 mmol/L (23-27)
[2024-02-21 17:58] LABS: VBG PCO2 52.9 mmol/L (35-51)
[2024-02-21 18:15] LABS: Chloride 103 mmol/L (98-107); Potassium 4.3 mmoL/L (3.5-5.1); Sodium 139 mmol/L (136-145)
[2024-02-21 18:17] LABS: Alanine Aminotransferase 35 U/L (12-78); Aspartate Amino Transferase 46 U/L (14-36); Blood Urea Nitrogen 38 mg/dl (7-17); Creatinine Clearance Estimated 8 mL/min (50-200); Estimated Glomerular Filt Rate 5 ml/min (>60); GFR (African American) 6 ML/MIN (>60)
[2024-02-21 18:18] LABS: Albumin Level 3.9 g/dl (3.5-5.0); Albumin/Globulin Ratio 1.4 (1.1-1.8); Alkaline Phosphatase 173 U/L (38-126); Anion Gap 11.3 mEq/L (5-15); Bilirubin,Total 0.9 mg/dl (0.2-1.3); Calcium 8.5 mg/dl (8.4-10.2); Carbon Dioxide 29 mmol/L (22.0-30.0); Globulin 2.7 g/dL (1.3-3.2); Glucose 119 mg/dl (74-100); Total Protein,Serum 6.6 g/dl (6.3-8.2)
[2024-02-21 18:30] LABS: Troponin I 0.02 ng/ml (0.00-0.034)
--- NOTE | 2024-02-21 19:47 | PC.NURSE ---
Call to [facility] [facility] [place]
--- NOTE | 2024-02-21 19:53 | PC.NURSE ---
Transfer center is reaching out to [facility]
[2024-02-21 20:19] LABS: NT Pro Brain Natriuretic Pep. 13500 pg/mL (0-125)
[2024-02-21 20:29] LABS: Troponin I 0.02 ng/ml (0.00-0.034)
[2024-02-21] MEDS: FUROSEMIDE 40MG/4ML VIAL 40 MG IV (20:55)
--- NOTE | 2024-02-21 21:40 | PC.NURSE ---
Nurse to nurse report to Ephraim VALLE @ [address]
--- NOTE | 2024-02-21 22:23 | PC.NURSE ---
patient given sandwich and drink
== END 2024-02-21 23:09 | disposition short-term general hospital (02) ==
PROVIDERS: Emergency Provider Emergency Medicine; PCP Family Medicine
DX: R07.89 Other chest pain (principal); I50.89 Other heart failure; I20.0 Unstable angina; R93.1 Abnormal findings on diagnostic imaging of heart and coronary circulation; R79.89 Other specified abnormal findings of blood chemistry; R60.0 Localized edema; I48.0 Paroxysmal atrial fibrillation; N18.6 End stage renal disease; I11.0 Hypertensive heart disease with heart failure; E78.5 Hyperlipidemia, unspecified; E11.22 Type 2 diabetes mellitus with diabetic chronic kidney disease; K74.60 Unspecified cirrhosis of liver; Z99.2 Dependence on renal dialysis; Z79.4 Long term (current) use of insulin; K21.9 Gastro-esophageal reflux disease without esophagitis; Z95.810 Presence of automatic (implantable) cardiac defibrillator
CPT/HCPCS: 36415; 71045; 80053; 82803; 83880; 84484; 85025; 93005; 96374; 99285

== ENCOUNTER 2024-04-08 16:03 | Emergency (ER) | payer MEDICARE, SELFPAY ==
[2024-04-08] VITALS (15 sets, daily range): BP systolic 137–156; BP diastolic 74–95; PULSE 66–81; RESP 18–29; TEMP 36.6–36.7; O2SAT 93–100; BMI 29.0
--- NOTE | 2024-04-08 16:04 | ECG_ITS ---
APPROVED REPORT Exam: Resting ECG HR:77 bpm ECG Measurements Heart Rate 77 AXES TX 233 P 70 QRSd 133 QRS -53 QT 425 T 78 QTc 457 Conclusion UNCERTAIN IRREGULAR RHYTHM ELECTRONIC VENTRICULAR PACEMAKER -- CONTOUR ANALYSIS BASED ON INTRINSIC RHYTHM LEFT AXIS DEVIATION [QRS AXIS < -30] LEFT BUNDLE BRANCH BLOCK [120+ ms QRS DURATION, 80+ ms Q/S IN V1/V2, 85+ ms R IN I/aVL/V5/V6] ABNORMAL ECG Electronically signed by : CATE HOLLAND, 04/09/2024 00:22:31
--- NOTE | 2024-04-08 16:09 | ED_ITS ---
<Statement entered by Tiarra Atkins DO - 04/08/24 23:58> I was consulted by the PORT[facility], and we discussed the complexity of the problems being addressed. I approved the treatment and management plan for this patient's care in the emergency department, thus performing a substantive portion of the medical decision making. Tiarra Atkins DO Discharge Plan Disposition Patient Disposition: Xfer Short-Term Hosp Condition: Serious Prescriptions Prescriptions: No Action atorvastatin 20 mg tablet 20 mg PO HS Qty: 30 5RF prednisone 10 mg tablet 5 mg PO DAILY acetaminophen [Tylenol] 325 mg capsule 325 mg PO QID PRN (Reason: Mild Pain) insulin aspart U-100 100 unit/mL (3 mL) insulin pen 4 unit SQ ACHS insulin glargine 100 unit/mL (3 mL) insulin pen 6 unit SQ DAILY melatonin 5 mg capsule 5 mg PO HS omeprazole 40 mg capsule,delayed release(DR/EC) 40 mg PO DAILY Patient Comments: TAKE 1 CAPSULE BY MOUTH ONCE DAILY. DO NOT CRUSH OR CHEW furosemide 80 mg tablet 80 mg PO BID Patient Comments: TAKE 1 TABLET BY MOUTH TWICE DAILY bisoprolol fumarate 10 mg tablet 10 mg PO DAILY Qty: 31 11RF folic acid 1 MG tablet 1 mg PO DAILY lactulose 10 GM/15 ML solution 20 g PO TID sevelamer carbonate 800 MG tablet 1,600 mg PO TID rifaximin 550 mg tablet 550 mg PO BID albuterol sulfate 90 mcg/actuation HFA aerosol inhaler 4 inh inhalation Q4H PRN (Reason: shortness of breath or wheezing) Qty: 8.5 0RF Rx Instructions: 4 puffs every 4 hours for 48 hours then as needed for shortness of breath or wheezing following pantoprazole 40 mg tablet,delayed release (DR/EC) 40 mg PO BID Patient Comments: TAKE 1 TABLET BY MOUTH TWICE DAILY 30 MINUTES BEFORE BREAKFAST AND DINNER methocarbamol 750 mg tablet 750 mg PO TID 5 Days Qty: 15 0RF Referrals Follow up/Referrals: Provider,Referral, [Referring] - See instructions Activity Restrictions/Add. Instructions Additional Instructions/Restrictions: Transfer to [facility] in care of Dr. Schwartz Clinical Impressions Clinical Impression: Acute and chronic respiratory failure with hypoxia, Volume overload, End-stage renal disease on hemodialysis Pulmonary edema Qualifiers: Chronicity: acute Qualified Code(s): J81.0 - Acute pulmonary edema Stand Alone Forms Stand Alone Forms: Transfer Record - ED Discharge ED Provider: Tiarra Atkins HPI <LAURA Desai - Last Filed: 04/08/24 19:24> General Chief Complaint: Chest Pain Stated Complaint: SOA Time Seen by Provider: 04/08/24 16:08 History of Present Illness HPI narrative: Patient presents for evaluation of dyspnea and chest pain. Patient has a past medical history of end-stage renal disease on hemodialysis, CHF, COPD on intermittent oxygen, history of sarcoidosis, history of third-degree AV block status post pacemaker, history of atrial fibrillation not on chronic anticoagulation. Patient normally dialyzes on Monday and Saturdays however patient dialyzed on Monday of last week. Patient reports that yesterday she began feeling short of breath along with some chest pressure and that is worsened today. She states around 10 AM this morning she felt a significantly short of breath colluding shortness of breath at rest. She also felt that she was having chest pressure. She denies fever chills hemoptysis hematochezia melena nausea vomiting diarrhea. Related Data Home Medications Medication Instructions Recorded Confirmed folic acid 1 mg tablet 1 mg PO DAILY Supplement 11/29/20 09/11/23 lactulose 10 gram/15 mL oral 20 g PO TID liver 11/29/20 09/11/23 solution sevelamer carbonate 800 mg tablet 1,600 mg PO TID Kidney failure 11/29/20 09/11/23 acetaminophen 325 mg capsule 325 mg PO QID PRN Mild Pain 03/23/21 09/11/23 (Tylenol) insulin aspart U-100 100 unit/mL 4 unit SQ ACHS Diabetes 03/23/21 09/11/23 (3 mL) subcutaneous pen insulin glargine 100 unit/mL (3 6 unit SQ DAILY Diabetes 03/23/21 09/11/23 mL) subcutaneous pen melatonin 5 mg capsule 5 mg PO HS Sleep 03/23/21 09/11/23 prednisone 10 mg tablet 5 mg PO DAILY . 03/23/21 09/11/23 rifaximin 550 mg tablet 550 mg PO BID unk 03/23/21 09/11/23 furosemide 80 mg tablet 80 mg PO BID Fluid 10/12/22 09/11/23 omeprazole 40 mg capsule,delayed 40 mg PO DAILY GERD 10/12/22 09/11/23 release pantoprazole 40 mg tablet,delayed 40 mg PO BID 09/11/23 09/11/23 release Previous Rx's Medication Instructions Recorded atorvastatin 20 mg tablet 20 mg PO HS Cholesterol #30 tabs 10/26/22 albuterol sulfate 90 mcg/actuation 4 inh inhalation Q4H PRN shortness 07/25/23 aerosol inhaler of breath or wheezing #8.5 grams bisoprolol fumarate 10 mg tablet 10 mg PO DAILY #31 tabs 09/18/23 methocarbamol 750 mg tablet 750 mg PO TID 5 days #15 tabs 01/10/24 Allergies Allergy/AdvReac Type Severity Reaction Status Date / Time ceftriaxone Allergy Severe Anaphylaxis Verified 07/27/23 01:46 [facility] <LAURA Desai - Last Filed: 04/08/24 19:24> [facility] Disclaimer: The information contained in this section may have been updated after the patient was seen, as this information can be updated by other users. Medical History (Updated 04/08/24 @ 19:24 by LAURA Desai) Diabetes Abnormal result of cardiovascular function study Typical angina Automatic implantable cardioverter-defibrillator in situ Chronic a-fib Surgical History (Updated 11/29/22 @ 14:42 by Paige Young) History of cardiac cath Social History Smoking Status: Never smoker second hand exposure: No alcohol intake: never substance use type: other current occupational status: disabled Travel in the last 8 weeks: None household members: spouse housing: house current occupational exposures/hazards: No caffeine: No <LAURA Desai - Last Filed: 04/08/24 19:24> ROS Obtained: Yes Systems reviewed as appropriate & no additional complaints except as documented Physical Exam <LAURA Desai - Last Filed: 04/08/24 19:24> General General appearance: alert and in no apparent distress Respiratory Respiratory exam: Absent normal lung sounds bilaterally (Diminished breath sounds at the bases with late end expiratory wheezes and occasional coarse rhonchi), respiratory distress or accessory muscle use Cardiovascular Cardiovascular exam: Present regular rate, normal rhythm and normal heart sounds Abdominal Exam Abdominal exam: Present soft and normal bowel sounds; Absent distention, tenderness, guarding, rebound or rigidity Extremities Exam Extremities exam: Present normal inspection, full ROM and edema; Absent tenderness Back Exam Back exam: Present normal inspection and full ROM; Absent tenderness Neurological Exam Neurological exam: Present alert and oriented X3 HEART Score <LAURA Desai - Last Filed: 04/08/24 19:24> HEART Score HEART Score assessment performed?: Yes History (anamnesis): Moderately suspicious ECG: Non-specific disturbance Age: >65 years Risk factors: 3 or more risk factors Troponin: </= normal limit HEART Score: 6 <Tiarra Atkins DO - Last Filed: 04/09/24 00:00> HEART Score HEART Score: 6 Critical Care <LAURA Desai - Last Filed: 04/08/24 19:24> Critical Care Time Critical Care Time: No Medical Decision Making <LAURA Desai - Last Filed: 04/08/24 19:24> Medical Records Medical records reviewed: Yes I reviewed the patient's medical records. Rudy Inquiry Pt receiving controlled substance: No Vital Signs Vital Signs: 04/08/24 16:03 04/08/24 16:15 04/08/24 16:28 Temperature 98.1 F Temperature Source Oral Pulse Rate 71 81 Pulse Rate [Bilateral Radial] 81 Respiratory Rate 24 20 Blood Pressure 138/88 Blood Pressure [Left Arm] 138/88 Blood Pressure Mean Blood Pressure Mean [Left Arm] 104 02 Sat by Pulse Oximetry 93 L 96 Oxygen Delivery Method Room Air Oxygen Flow Rate (LPM) 04/08/24 16:30 04/08/24 17:00 04/08/24 17:00 Temperature Temperature Source Pulse Rate 70 70 71 Pulse Rate [Bilateral Radial] Respiratory Rate 20 Blood Pressure 137/85 Blood Pressure [Left Arm] Blood Pressure Mean Blood Pressure Mean [Left Arm] 02 Sat by Pulse Oximetry 95 Oxygen Delivery Method Oxygen Flow Rate (LPM) 04/08/24 17:03 04/08/24 17:31 04/08/24 18:00 Temperature Temperature Source Pulse Rate 66 80 79 Pulse Rate [Bilateral Radial] Respiratory Rate 24 22 29 H Blood Pressure 156/90 H 138/82 148/95 H Blood Pressure [Left Arm] Blood Pressure Mean 102 Blood Pressure Mean [Left Arm] 02 Sat by Pulse Oximetry 98 100 100 Oxygen Delivery Method Nasal Cannula Nasal Cannula Oxygen Flow Rate (LPM) 2 2 06/24/24 18:31 04/08/24 19:01 04/08/24 20:31 Temperature Temperature Source Pulse Rate 71 72 69 Pulse Rate [Bilateral Radial] Respiratory Rate 25 H 18 23 Blood Pressure 149/79 H 147/74 H 152/90 H Blood Pressure [Left Arm] Blood Pressure Mean 104 101 Blood Pressure Mean [Left Arm] 02 Sat by Pulse Oximetry 100 100 99 Oxygen Delivery Method Oxygen Flow Rate (LPM) 2 04/08/24 21:31 04/08/24 22:01 04/08/24 22:31 Temperature Temperature Source Pulse Rate 69 70 69 Pulse Rate [Bilateral Radial] Respiratory Rate 22 23 23 Blood Pressure 137/81 138/75 140/82 Blood Pressure [Left Arm] Blood Pressure Mean 97 106 101 Blood Pressure Mean [Left Arm] 02 Sat by Pulse Oximetry 99 99 99 Oxygen Delivery Method Oxygen Flow Rate (LPM) 2 2 2 04/08/24 23:09 Temperature 98 F Temperature Source Oral Pulse Rate 69 Pulse Rate [Bilateral Radial] Respiratory Rate 22 Blood Pressure 140/82 Blood Pressure [Left Arm] Blood Pressure Mean Blood Pressure Mean [Left Arm] 02 Sat by Pulse Oximetry Oxygen Delivery Method Nasal Cannula Oxygen Flow Rate (LPM) 2 Lab Data Lab results reviewed: Yes I reviewed the patient's lab results. Labs: Lab Results 04/08/24 16:10: PT 10.4, INR 0.96 04/08/24 16:26: WBC 5.8, RBC 3.71 L, Hgb 11.6 L, Hct 38.9, MCV 104.8 H, MCH 31.2, MCHC 29.8 L, RDW 16.9, Plt Count 58 L, MPV 9.9, Neut % (Auto) 82.8 H, L ymph % (Auto) 9.9 L, Schley % (Auto) 4.6, Eos % (Auto) 2.0, Baso % (Auto) 0.7, Neut # (Auto) 4.8, Lymph # (Auto) 0.6 L, Schley # (Auto) 0.3, Eos # (Auto) 0.1, Baso # (Auto) 0.0, Sodium 136, Potassium 4.3, Chloride 103, Carbon Dioxide 25, Anion Gap 12.3, BUN 43 H, Creatinine 9.40 H, Estimated Creat Clear 7, Estimated GFR 4 L*, Est GFR ( Amer) 5 L*, Glucose 174 H, Calcium 9.4, Magnesium 2.4 H, Total Bilirubin 1.1, AST 42 H, ALT 52, Alkaline Phosphatase 147 H, Troponin I 0.02, Total Protein 6.7, Albumin 3.9, Globulin 2.8, Albumin/Globulin Ratio 1.4 04/08/24 20:00: Troponin I 0.02 04/08/24 16:26 04/08/24 16:26 Response Orders (Tests/Meds): ED MEDICATIONS Discontinued Medications Generic Name Dose Route Start Last Admin Trade Name Freq PRN Reason Stop Dose Admin Acetaminophen 1,000 mg 04/08/24 16:14 04/08/24 16:51 Acetaminophen 500mg Tab PO 04/08/24 16:15 1,000 mg ONCE ONE Administration Albuterol/Ipratropium 6 ml 04/08/24 16:14 04/08/24 16:57 Ipratropium/Albuterol 3 Ml Neb IH 04/08/24 16:15 6 ml ONCE ONE Administration Iopamidol 70 ml 04/08/24 17:19 04/08/24 17:20 Iopamidol-370 (76%);100ml Bottle IV 04/08/24 17:20 70 ml ONCE ONE Administration Sodium Chloride 50 ml 04/08/24 17:19 04/08/24 17:20 0.9 % Sodium Chloride 50 Ml Vial IV 04/08/24 17:20 50 ml ONCE ONE Administration Sodium Chloride 10 ml 04/08/24 17:19 04/08/24 17:20 Sodium Chloride 0.9% 10ml Syr (Rad Only) IV 04/08/24 17:20 10 ml ONCE ONE Administration ORDERS Category Date Time Status CT angio chest PE protocol Stat Cat Scan 04/08/24 16:14 Completed CBC w/Auto Diff [Complete Blood Count Auto Diff] Stat Lab 04/08/24 16:26 Completed CMP [Comprehensive Metabolic Panel] Stat Lab 04/08/24 16:26 Completed INR [Prothrombin Time INR] Stat Lab 04/08/24 16:10 Completed Magnesium Stat Lab 04/08/24 16:26 Completed Trop I [Troponin I] Stat Lab 04/08/24 16:26 Completed Troponin I Q3H Lab 04/08/24 20:00 Completed MDM Narrative Medical Decision Narrative: RestIn summary patient is a 73-year-old female who presents to the emergency department for evaluation of dyspnea and chest pressure. Patient is hemodynamically stable upon arrival, afebrile. Physical exam is remarkable for diminished breath sounds at the bilateral bases and slight increase of work of breathing and satting around 90% on room air. Differential diagnosis includes CHF exacerbation versus volume overload versus ACS versus PE etc. Initial workup will be conducted with hematologic labs CTA of the chest twelve-lead EKG. Initial interventions include Toradol Tylenol breathing treatment. Initial workup reviewed by me and her creatinine is 9.4 today not far from her baseline and her NT proBNP is 13,500. Upon repeat evaluation I had an interactive discussion with the patient regarding her results and where she receives her dialysis and where she would like to be admitted if she were agreeable to be admitted. Patient is agreeable to attempt to transfer to [facility] for further evaluation and care.. Given this I had a interact discussion with the [facility] transfer center and patient has been accepted by Patrick Auguste PA-C for Dr. Schwartz [facility] <Tiarra Atkins, - Last Filed: 04/09/24 00:00> Vital Signs Vital Signs: 04/08/24 16:03 04/08/24 16:15 04/08/24 16:28 Temperature 98.1 F Temperature Source Oral Pulse Rate 71 81 Pulse Rate [Bilateral Radial] 81 Respiratory Rate 24 20 Blood Pressure 138/88 Blood Pressure [Left Arm] 138/88 Blood Pressure Mean Blood Pressure Mean [Left Arm] 104 02 Sat by Pulse Oximetry 93 L 96 Oxygen Delivery Method Room Air Oxygen Flow Rate (LPM) 04/08/24 16:30 04/08/24 17:00 04/08/24 17:00 Temperature Temperature Source Pulse Rate 70 70 71 Pulse Rate [Bilateral Radial] Respiratory Rate 20 Blood Pressure 137/85 Blood Pressure [Left Arm] Blood Pressure Mean Blood Pressure Mean [Left Arm] 02 Sat by Pulse Oximetry 95 Oxygen Delivery Method Oxygen Flow Rate (LPM) 04/08/24 17:03 04/08/24 17:31 04/08/24 18:00 Temperature Temperature Source Pulse Rate 66 80 79 Pulse Rate [Bilateral Radial] Respiratory Rate 24 22 29 H Blood Pressure 156/90 H 138/82 148/95 H Blood Pressure [Left Arm] Blood Pressure Mean 102 Blood Pressure Mean [Left Arm] 02 Sat by Pulse Oximetry 98 100 100 Oxygen Delivery Method Nasal Cannula Nasal Cannula Oxygen Flow Rate (LPM) 2 2 04/08/24 18:31 04/08/24 19:01 04/08/24 20:31 Temperature Temperature Source Pulse Rate 71 72 69 Pulse Rate [Bilateral Radial] Respiratory Rate 25 H 18 23 Blood Pressure 149/79 H 147/74 H 152/90 H Blood Pressure [Left Arm] Blood Pressure Mean 104 101 Blood Pressure Mean [Left Arm] 02 Sat by Pulse Oximetry 100 100 99 Oxygen Delivery Method Oxygen Flow Rate (LPM) 2 04/08/24 21:31 04/08/24 22:01 04/08/24 22:31 Temperature Temperature Source Pulse Rate 69 70 69 Pulse Rate [Bilateral Radial] Respiratory Rate 22 23 23 Blood Pressure 137/81 138/75 140/82 Blood Pressure [Left Arm] Blood Pressure Mean 97 106 101 Blood Pressure Mean [Left Arm] 02 Sat by Pulse Oximetry 99 99 99 Oxygen Delivery Method Oxygen Flow Rate (LPM) 2 2 2 04/08/24 23:09 Temperature 98 F Temperature Source Oral Pulse Rate 69 Pulse Rate [Bilateral Radial] Respiratory Rate 22 Blood Pressure 140/82 Blood Pressure [Left Arm] Blood Pressure Mean Blood Pressure Mean [Left Arm] 02 Sat by Pulse Oximetry Oxygen Delivery Method Nasal Cannula Oxygen Flow Rate (LPM) 2 Lab Data Labs: Lab Results 04/08/24 16:10: PT 10.4, INR 0.96 04/08/24 16:26: WBC 5.8, RBC 3.71 L, Hgb 11.6 L, Hct 38.9, MCV 104.8 H, MCH 31.2, MCHC 29.8 L, RDW 16.9, Plt Count 58 L, MPV 9.9, Neut % (Auto) 82.8 H, L ymph % (Auto) 9.9 L, Schley % (Auto) 4.6, Eos % (Auto) 2.0, Baso % (Auto) 0.7, Neut # (Auto) 4.8, Lymph # (Auto) 0.6 L, Schley # (Auto) 0.3, Eos # (Auto) 0.1, Baso # (Auto) 0.0, Sodium 136, Potassium 4.3, Chloride 103, Carbon Dioxide 25, Anion Gap 12.3, BUN 43 H, Creatinine 9.40 H, Estimated Creat Clear 7, Estimated GFR 4 L*, Est GFR ( Amer) 5 L*, Glucose 174 H, Calcium 9.4, Magnesium 2.4 H, Total Bilirubin 1.1, AST 42 H, ALT 52, Alkaline Phosphatase 147 H, Troponin I 0.02, Total Protein 6.7, Albumin 3.9, Globulin 2.8, Albumin/Globulin Ratio 1.4 04/08/24 20:00: Troponin I 0.02 Response Orders (Tests/Meds): ED MEDICATIONS Discontinued Medications Generic Name Dose Route Start Last Admin Trade Name Freq PRN Reason Stop Dose Admin Acetaminophen 1,000 mg 04/08/24 16:14 04/08/24 16:51 Acetaminophen 500mg Tab PO 04/08/24 16:15 1,000 mg ONCE ONE Administration Albuterol/Ipratropium 6 ml 04/08/24 16:14 04/08/24 16:57 Ipratropium/Albuterol 3 Ml Neb IH 04/08/24 16:15 6 ml ONCE ONE Administration Iopamidol 70 ml 04/08/24 17:19 04/08/24 17:20 Iopamidol-370 (76%);100ml Bottle IV 04/08/24 17:20 70 ml ONCE ONE Administration Sodium Chloride 50 ml 04/08/24 17:19 04/08/24 17:20 0.9 % Sodium Chloride 50 Ml Vial IV 04/08/24 17:20 50 ml ONCE ONE Administration Sodium Chloride 10 ml 04/08/24 17:19 04/08/24 17:20 Sodium Chloride 0.9% 10ml Syr (Rad Only) IV 04/08/24 17:20 10 ml ONCE ONE Administration ORDERS Category Date Time Status CT angio chest PE protocol Stat Cat Scan 04/08/24 16:14 Completed CBC w/Auto Diff [Complete Blood Count Auto Diff] Stat Lab 04/08/24 16:26 Completed CMP [Comprehensive Metabolic Panel] Stat Lab 04/08/24 16:26 Completed INR [Prothrombin Time INR] Stat Lab 04/08/24 16:10 Completed Magnesium Stat Lab 04/08/24 16:26 Completed Trop I [Troponin I] Stat Lab 04/08/24 16:26 Completed Troponin I Q3H Lab 04/08/24 20:00 Completed ECG Data Tracing #1: Attestation: I reviewed this ECG and interpreted as documented below: ECG Narrative: Ventricularly paced with a ventricular rate of 77 bpm. Does not meet Sgarbossa criteria for STEMI. ECG initial impression date: 04/08/24 ECG initial impression time: 16:08
--- NOTE | 2024-04-08 16:14 | CT_ITS ---
PROCEDURE INFORMATION: Exam: CTA Chest With Contrast Exam date and time: 04/08/2024 5:20 PM Age: 73 years old Clinical indication: Dyspnea; Additional info: Dyspnea, chest pain TECHNIQUE: Imaging protocol: Computed tomographic angiography of the chest with contrast. Exam focused on the arteries. 3D rendering (Not supervised by radiologist): MIP and/or 3D reconstructed images were created by the technologist. Radiation optimization: All CT scans at this facility use at least one of these dose optimization techniques: automated exposure control; mA and/or kV adjustment per patient size (includes targeted exams where dose is matched to clinical indication); or iterative reconstruction. Contrast material: ISOVUE; Contrast volume: 70 ml; Contrast route: INTRAVENOUS (IV); COMPARISON: [facility] CT angio chest 02/14/2018 07:35 FINDINGS: Tubes, catheters and devices: Pacemaker leads are noted. Pulmonary arteries: Evaluation of the pulmonary arteries is limited to the segmental arterial level due to poor bolus timing. Aorta: The aorta demonstrates moderate atherosclerotic disease. Celiac trunk and mesenteric arteries: Moderate chronic SMA stenosis. Lungs: Widespread interlobular septal thickening most likely correlates with pulmonary venous congestion. Patchy ground-glass opacities suggesting cardiogenic edema. Pleural spaces: Small pleural effusions. Heart: Cardiomegaly. Mitral and aortic valve calcifications. Coronary arteries: Coronary artery calcifications. Lymph nodes: Unremarkable. No enlarged lymph nodes. Diaphragm: Moderate-sized hiatal hernia. Liver: Hepatic cirrhosis. Bones/joints: Unremarkable. No acute fracture. Soft tissues: Unremarkable. IMPRESSION: 1. Evaluation of the pulmonary arteries is limited to the segmental arterial level due to poor bolus timing. Within the limitations of the study, no pulmonary emboli. 2. Widespread interlobular septal thickening most likely correlates with pulmonary venous congestion. Patchy ground-glass opacities suggesting cardiogenic edema. 3. Small pleural effusions. 4. Hepatic cirrhosis.
--- OUTSIDE RECORDS SUMMARY | 2024-04-08 16:14 | XMS_ITS ---
Author Name Unknown Organization [facility] No information ASSESSMENT No information CHIEF COMPLAINT No information Medications Date Medication Dosage Dosageunit Startdate Stopdate Active Dispens e Refills Ndccode Isprescription Srcstatus 06/11 00:00 :00 Acetaminoph en-Codeine #3 300-30 MG Tablet null null 0 30 1 [id number] 001 Discontinu ed 05/15 00:00 :00 Acetaminoph en-Codeine #3 300-30 MG Tablet null null 1 30 1 00491267 001 Taking 04/24 00:00 :00 Acetaminoph en-Codeine #3 300-30 MG Tablet null null 1 30 1 [id number] 001 Taking 03/06 00:00 :00 Acetaminoph en-Codeine #3 300-30 MG Tablet null null 1 30 1 [id number] 001 Continue 01/18 00:00 :00 Acetaminoph en-Codeine #3 300-30 MG Tablet null null 1 30 1 26025150 001 P Refill 01/18 00:00 :00 Acetaminoph en-Codeine #3 300-30 MG Tablet null null 1 [id number] 001 Taking 05/12 00:00 :00 Acyclovir 400 MG Tablet null null 0 35 0 853438 77 701 P Discontinu ed 05/02 00:00 :00 Acyclovir 400 MG Tablet null null 1 35 0 507039 77 701 P Not Taking 03/03 00:00 :00 Acyclovir 400 MG Tablet null null 1 35 0 089436 77 701 P Taking 11/17 00:00 :00 Acyclovir 400 MG Tablet null null 1 35 0 982874 77 701 P Taking 10/13 00:00 :00 Acyclovir 400 MG Tablet null null 1 35 0 649981 77 701 P Taking 08/11 00:00 :00 Acyclovir 400 MG Tablet null null 1 35 0 642189 77 701 P Taking 06/02 00:00 :00 Acyclovir 400 MG Tablet null null 1 35 0 551318 77 701 P Taking 05/06 00:00 :00 Acyclovir 400 MG Tablet null null 1 35 0 933964 77 701 P Taking 03/06 00:00 :00 Acyclovir 400 MG Tablet null null 1 35 0 872394 77 701 P Taking 01/02 00:00 :00 Acyclovir 400 MG Tablet null null 1 35 0 551762 77 701 P Taking 10/29 00:00 :00 Acyclovir 400 MG Tablet null null 1 35 0 796280 77 701 P Taking 09/29 00:00 :00 Acyclovir 400 MG Tablet null null 1 35 0 981056 77 701 P Taking 07/28 00:00 :00 Acyclovir 400 MG Tablet null null 1 35 0 292349 77 701 P Start 10/30 00:00 :00 Acyclovir 800 MG Tablet 01/11/2013 00:00:00 null 1 40 0 [id number] 501 P Taking 10/22 00:00 :00 Acyclovir 800 MG Tablet 01/11/2013 00:00:00 null 1 40 0 [id number] 501 Taking 08/01 00:00 :00 Acyclovir 800 MG Tablet 01/11/2013 00:00:00 null 1 40 0 [id number] 501 Taking 06/27 00:00 :00 Acyclovir 800 MG Tablet 01/11/2013 00:00:00 null 1 40 0 [id number] 501 P Taking 06/04 00:00 :00 Acyclovir 800 MG Tablet 01/11/2013 00:00:00 null 1 40 0 [id number] 501 P Taking 05/03 00:00 :00 Acyclovir 800 MG Tablet 01/11/2013 00:00:00 null 1 40 0 [id number] 501 Taking 04/30 00:00 :00 Acyclovir 800 MG Tablet 01/11/2013 00:00:00 null 1 40 0 [id number] 501 P Taking 04/17 00:00 :00 Acyclovir 800 MG Tablet 01/11/2013 00:00:00 null 1 40 0 [id number] 501 Taking 03/28 00:00 :00 Acyclovir 800 MG Tablet 01/11/2013 00:00:00 null 1 40 0 [id number] 501 Taking 03/05 00:00 :00 Acyclovir 800 MG Tablet 01/11/2013 00:00:00 null 1 40 0 [id number] 501 P Taking 02/06 00:00 :00 Acyclovir 800 MG Tablet 01/11/2013 00:00:00 null 1 40 0 [id number] 501 Taking 01/15 00:00 :00 Acyclovir 800 MG Tablet 01/11/2013 00:00:00 null 1 40 0 [id number] 501 P Taking 01/11 00:00 :00 Acyclovir 800 MG Tablet 01/11/2013 00:00:00 null 1 40 0 [id number] 501 Start 05/12 00:00 :00 Allopurinol 300 MG Tablet 06/10/2013 00:00:00 null 0 30 5 [id number] 401 Discontinu ed 05/02 00:00 :00 Allopurinol 300 MG Tablet 06/10/2013 00:00:00 null 1 30 5 [id number] 401 Not Taking 03/03 00:00 :00 Allopurinol 300 MG Tablet 06/10/2013 00:00:00 null 1 30 5 [id number] 401 Taking 11/17 00:00 :00 Allopurinol 300 MG Tablet 06/10/2013 00:00:00 null 1 30 5 [id number] 401 Taking 10/13 00:00 :00 Allopurinol 300 MG Tablet 06/10/2013 00:00:00 null 1 30 5 [id number] 401 Taking 08/11 00:00 :00 Allopurinol 300 MG Tablet 06/10/2013 00:00:00 null 1 30 5 [id number] 401 Taking 06/02 00:00 :00 Allopurinol 300 MG Tablet 06/10/2013 00:00:00 null 1 30 5 [id number] 401 Taking 05/06 00:00 :00 Allopurinol 300 MG Tablet 06/10/2013 00:00:00 null 1 30 5 [id number] 401 Taking 03/06 00:00 :00 Allopurinol 300 MG Tablet 06/10/2013 00:00:00 null 1 30 5 [id number] 401 Taking 01/02 00:00 :00 Allopurinol 300 MG Tablet 06/10/2013 00:00:00 null 1 30 5 [id number] 401 Taking 10/29 00:00 :00 Allopurinol 300 MG Tablet 06/10/2013 00:00:00 null 1 30 5 [id number] 401 Taking 09/29 00:00 :00 Allopurinol 300 MG Tablet 06/10/2013 00:00:00 null 1 30 5 [id number] 401 Taking 07/28 00:00 :00 Allopurinol 300 MG Tablet 06/10/2013 00:00:00 null 1 30 5 [id number] 401 Taking 06/03 00:00 :00 Allopurinol 300 MG Tablet 06/10/2013 00:00:00 null 1 30 5 [id number] 401 Taking 04/07 00:00 :00 Allopurinol 300 MG Tablet 06/10/2013 00:00:00 null 1 30 5 [id number] 401 Taking 02/21 00:00 :00 Allopurinol 300 MG Tablet 06/10/2013 00:00:00 null 1 30 5 [id number] 401 Taking 02/04 00:00 :00 Allopurinol 300 MG Tablet 06/10/2013 00:00:00 null 1 30 5 [id number] 401 Taking 01/07 00:00 :00 Allopurinol 300 MG Tablet 06/10/2013 00:00:00 null 1 30 5 [id number] 401 Taking 11/22 00:00 :00 Allopurinol 300 MG Tablet 06/10/2013 00:00:00 null 1 30 5 [id number] 401 P Taking 10/30 00:00 :00 Allopurinol 300 MG Tablet 06/10/2013 00:00:00 null 1 30 5 [id number] 401 P Taking 10/22 00:00 :00 Allopurinol 300 MG Tablet 06/10/2013 00:00:00 null 1 30 5 [id number] 401 Taking 08/01 00:00 :00 Allopurinol 300 MG Tablet 06/10/2013 00:00:00 null 1 30 5 [id number] 401 Taking 06/27 00:00 :00 Allopurinol 300 MG Tablet 06/10/2013 00:00:00 null 1 30 5 [id number] 401 P Taking 06/04 00:00 :00 Allopurinol 300 MG Tablet 06/10/2013 00:00:00 null 1 30 5 [id number] 401 Start 02/15 00:00 :00 amLODIPine Besylate 10MG Tablet null null 1 [id number] 570 Taking 01/05 00:00 :00 amLODIPine Besylate 10MG Tablet null null 1 [id number] 570 Taking 12/14 00:00 :00 amLODIPine Besylate 10MG Tablet null null 1 [id number] 570 Taking 11/15 00:00 :00 amLODIPine Besylate 10MG Tablet null null 1 [id number] 570 Taking 10/31 00:00 :00 amLODIPine Besylate 10MG Tablet null null 1 [id number] 570 Taking 10/24 00:00 :00 amLODIPine Besylate 10MG Tablet null null 1 [id number] 570 Taking 09/05 00:00 :00 amLODIPine Besylate 10MG Tablet null null 1 [id number] 570 Taking 05/12 00:00 :00 amLODIPine Besylate 10MG Tablet null null 1 [id number] 570 P Continue 05/12 00:00 :00 amLODIPine Besylate 10MG Tablet null null 1 30 Tablet 4 [id number] 570 P Taking 05/02 00:00 :00 amLODIPine Besylate 10MG Tablet null null 1 30 Tablet 4 [id number] 570 P Taking 03/03 00:00 :00 amLODIPine Besylate 10MG Tablet null null 1 30 Tablet 4 [id number] 570 P Taking 11/17 00:00 :00 amLODIPine Besylate 10MG Tablet null null 1 30 Tablet 4 [id number] 570 P Taking 10/13 00:00 :00 amLODIPine Besylate 10MG Tablet null null 1 30 Tablet 4 [id number] 570 P Taking 08/11 00:00 :00 amLODIPine Besylate 10MG Tablet null null 1 30 Tablet 4 [id number] 570 P Taking 06/02 00:00 :00 amLODIPine Besylate 10MG Tablet null null 1 30 Tablet 4 [id number] 570 P Taking 05/06 00:00 :00 amLODIPine Besylate 10MG Tablet null null 1 30 Tablet 4 [id number] 570 P Taking 03/06 00:00 :00 amLODIPine Besylate 10MG Tablet null null 1 30 Tablet 4 [id number] 570 P Taking 01/02 00:00 :00 amLODIPine Besylate 10MG Tablet null null 1 30 Tablet 4 [id number] 570 P Taking 12/31 00:00 :00 amLODIPine Besylate 10MG Tablet null null 1 30 Tablet 4 [id number] 570 P Start 07/28 00:00 :00 amLODIPine Besylate 10MG Tablet null null 0 30 Tablet 4 Disco ntinu ed 06/03 00:00 :00 amLODIPine Besylate 10MG Tablet null null 1 30 Tablet 4 Takin g 04/07 00:00 :00 amLODIPine Besylate 10MG Tablet null null 1 30 Tablet 4 Takin g 02/21 00:00 :00 amLODIPine Besylate 10MG Tablet null null 1 30 Tablet 4 Takin g 02/04 00:00 :00 amLODIPine Besylate 10MG Tablet null null 1 30 Tablet 4 Takin g 01/07 00:00 :00 amLODIPine Besylate 10MG Tablet null null 1 30 Tablet 4 Takin g 12/10 00:00 :00 amLODIPine Besylate 10MG Tablet null null 1 30 Tablet 4 P Start 11/22 00:00 :00 amLODIPine Besylate 10 Tablet null null 1 30 11 P Taking 10/30 00:00 :00 amLODIPine Besylate 10 Tablet null null 1 30 11 P Taking 10/22 00:00 :00 amLODIPine Besylate 10 Tablet null null 1 30 11 Taking 08/01 00:00 :00 amLODIPine Besylate 10 Tablet null null 1 30 11 Taking 06/27 00:00 :00 amLODIPine Besylate 10 Tablet null null 1 30 11 P Taking 06/04 00:00 :00 amLODIPine Besylate 10 Tablet null null 1 30 11 P Taking 05/03 00:00 :00 amLODIPine Besylate 10 Tablet null null 1 30 11 Taking 04/30 00:00 :00 amLODIPine Besylate 10 Tablet null null 1 30 11 P Taking 04/17 00:00 :00 amLODIPine Besylate 10 Tablet null null 1 30 11 Taking 03/28 00:00 :00 amLODIPine Besylate 10 Tablet null null 1 30 11 Taking 03/05 00:00 :00 amLODIPine Besylate 10 Tablet null null 1 30 11 P Taking 02/06 00:00 :00 amLODIPine Besylate 10 Tablet null null 1 30 11 Taking 01/15 00:00 :00 amLODIPine Besylate 10 Tablet null null 1 30 11 P Taking 01/11 00:00 :00 amLODIPine Besylate 10 Tablet null null 1 30 11 P Taking 12/26 00:00 :00 amLODIPine Besylate 10 Tablet null null 1 30 11 Taking 12/03 00:00 :00 amLODIPine Besylate 10 Tablet null null 1 30 11 P Taking 11/14 00:00 :00 amLODIPine Besylate 10 Tablet null null 1 30 11 P Taking 10/31 00:00 :00 amLODIPine Besylate 10 Tablet null null 1 30 11 Taking 10/24 00:00 :00 amLODIPine Besylate 10 Tablet null null 1 30 11 Taking 10/23 00:00 :00 amLODIPine Besylate 10 Tablet null null 1 30 11 P Taking 10/18 00:00 :00 amLODIPine Besylate 10 Tablet null null 1 30 11 P Taking 10/15 00:00 :00 amLODIPine Besylate 10 Tablet null null 1 30 11 Taking 10/11 00:00 :00 amLODIPine Besylate 10 Tablet null null 1 30 11 P Refill 07/10 00:00 :00 amLODIPine Besylate 10 MG Tablet null null 1 30 [id number] 718 P Taking 07/05 00:00 :00 Amoxicillin -Pot Clavulanate 875-125 MG Tablet 07/05/2023 00:00:00 null 1 20 49890549 534 P Start 06/11 00:00 :00 Apixaban 5 MG Tablet null null 0 Discontinu ed 05/15 00:00 :00 Apixaban 5 MG Tablet null null 1 Taking 04/24 00:00 :00 Apixaban 5 MG Tablet null null 1 Taking 05/12 00:00 :00 Atenolol 25 MG Tablet null 6 00:00:00 0 [id number] 701 P Stop 05/12 00:00 :00 Atenolol 25 MG Tablet null null 0 7602786 8 701 Discontinu ed 05/02 00:00 :00 Atenolol 25 MG Tablet null null 1 2635038 8 701 Taking 03/03 00:00 :00 Atenolol 25 MG Tablet null null 1 5337160 8 701 Taking 11/17 00:00 :00 Atenolol 25 MG Tablet null null 1 3237888 8 701 Taking 10/13 00:00 :00 Atenolol 25 MG Tablet null null 1 6512447 8 701 Taking 08/11 00:00 :00 Atenolol 25 MG Tablet null null 1 1068105 8 701 Taking 06/02 00:00 :00 Atenolol 25 MG Tablet null null 1 6578687 8 701 Taking 05/06 00:00 :00 Atenolol 25 MG Tablet null null 1 9436068 8 701 Taking 03/06 00:00 :00 Atenolol 25 MG Tablet null null 1 1441656 8 701 Taking 01/02 00:00 :00 Atenolol 25 MG Tablet null null 1 4830350 8 701 Taking 10/29 00:00 :00 Atenolol 25 MG Tablet null null 1 6353170 8 701 Taking 09/29 00:00 :00 Atenolol 25 MG Tablet null null 1 2223325 8 701 Taking 07/28 00:00 :00 Atenolol 25 MG Tablet null null 1 3415574 8 701 Taking 01/13 00:00 :00 Atorvastati n Calcium 20 MG Tablet 05/29/2018 00:00:00 null 1 30 11 [id number] 954 Taking 01/12 00:00 :00 Atorvastati n Calcium 20 MG Tablet 05/29/2018 00:00:00 null 1 30 11 [id number] 954 Taking 11/27 00:00 :00 Atorvastati n Calcium 20 MG Tablet 05/29/2018 00:00:00 null 1 30 11 71308414 954 Taking 11/04 00:00 :00 Atorvastati n Calcium 20 MG Tablet 05/29/2018 00:00:00 null 1 30 11 [id number] 954 Taking 08/01 00:00 :00 Atorvastati n Calcium 20 MG Tablet 05/29/2018 00:00:00 null 1 30 11 [id number] 954 Continue 10/30 00:00 :00 Benadryl Allergy 25 MG Capsule 10/23/2012 00:00:00 null 1 30 prn [id number] 21 P Taking 10/22 00:00 :00 Benadryl Allergy 25 MG Capsule 10/23/2012 00:00:00 null 1 30 prn [id number] 21 Taking 08/01 00:00 :00 Benadryl Allergy 25 MG Capsule 10/23/2012 00:00:00 null 1 30 prn [id number] 21 Taking 06/27 00:00 :00 Benadryl Allergy 25 MG Capsule 10/23/2012 00:00:00 null 1 30 prn [id number] 21 P Taking 06/04 00:00 :00 Benadryl Allergy 25 MG Capsule 10/23/2012 00:00:00 null 1 30 prn [id number] 21 P Taking 05/03 00:00 :00 Benadryl Allergy 25 MG Capsule 10/23/2012 00:00:00 null 1 30 prn [id number] 21 Taking 04/30 00:00 :00 Benadryl Allergy 25 MG Capsule 10/23/2012 00:00:00 null 1 30 prn [id number] 21 P Taking 04/17 00:00 :00 Benadryl Allergy 25 MG Capsule 10/23/2012 00:00:00 null 1 30 prn [id number] 21 Taking 03/28 00:00 :00 Benadryl Allergy 25 MG Capsule 10/23/2012 00:00:00 null 1 30 prn [id number] 21 Taking 03/05 00:00 :00 Benadryl Allergy 25 MG Capsule 10/23/2012 00:00:00 null 1 30 prn [id number] 21 P Taking 02/06 00:00 :00 Benadryl Allergy 25 MG Capsule 10/23/2012 00:00:00 null 1 30 prn [id number] 21 Taking 01/15 00:00 :00 Benadryl Allergy 25 MG Capsule 10/23/2012 00:00:00 null 1 30 prn [id number] 21 P Taking 01/11 00:00 :00 Benadryl Allergy 25 MG Capsule 10/23/2012 00:00:00 null 1 30 prn [id number] 21 P Taking 12/26 00:00 :00 Benadryl Allergy 25 MG Capsule 10/23/2012 00:00:00 null 1 30 prn [id number] 21 Taking 12/03 00:00 :00 Benadryl Allergy 25 MG Capsule 10/23/2012 00:00:00 null 1 30 prn [id number] 21 P Taking 11/14 00:00 :00 Benadryl Allergy 25 MG Capsule 10/23/2012 00:00:00 null 1 30 prn [id number] 21 P Taking 10/31 00:00 :00 Benadryl Allergy 25 MG Capsule 10/23/2012 00:00:00 null 1 30 prn [id number] 21 Taking 10/24 00:00 :00 Benadryl Allergy 25 MG Capsule 10/23/2012 00:00:00 null 1 30 prn [id number] 21 Taking 10/23 00:00 :00 Benadryl Allergy 25 MG Capsule 10/23/2012 00:00:00 null 1 30 prn [id number] 21 Start 10/19 00:00 :00 Bentyl 10 MG Capsule 07/24/2018 00:00:00 9 00:00:00 0 [id number] 210 Stop 10/19 00:00 :00 Bentyl 10 MG Capsule 07/24/2018 00:00:00 null 0 30 0 [id number] 210 P Discontinu ed 09/11 00:00 :00 Bentyl 10 MG Capsule 07/24/2018 00:00:00 null 1 30 0 [id number] 210 P Taking 08/24 00:00 :00 Bentyl 10 MG Capsule 07/24/2018 00:00:00 null 1 30 0 [id number] 210 P Taking 08/10 00:00 :00 Bentyl 10 MG Capsule 07/24/2018 00:00:00 null 1 30 0 [id number] 210 P Taking 07/30 00:00 :00 Bentyl 10 MG Capsule 07/24/2018 00:00:00 null 1 30 0 [id number] 210 P Taking 07/24 00:00 :00 Bentyl 10 MG Capsule 07/24/2018 00:00:00 null 1 30 0 [id number] 210 P Start 02/19 00:00 :00 Bisoprolol Fumarate 5 MG Tablet 05/12/2016 00:00:00 null 0 30 11 [id number] 030 Discontinu ed 01/13 00:00 :00 Bisoprolol Fumarate 5 MG Tablet 05/12/2016 00:00:00 null 1 30 11 [id number] 030 Taking 01/12 00:00 :00 Bisoprolol Fumarate 5 MG Tablet 05/12/2016 00:00:00 null 1 30 11 [id number] 030 Taking 11/27 00:00 :00 Bisoprolol Fumarate 5 MG Tablet 05/12/2016 00:00:00 null 1 30 11 [id number] 030 Taking 11/04 00:00 :00 Bisoprolol Fumarate 5 MG Tablet 05/12/2016 00:00:00 null 1 30 11 [id number] 030 Taking 06/11 00:00 :00 Bisoprolol Fumarate 5 MG Tablet 05/12/2016 00:00:00 null 1 30 11 [id number] 030 Taking 05/15 00:00 :00 Bisoprolol Fumarate 5 MG Tablet 05/12/2016 00:00:00 null 1 30 11 [id number] 030 Taking 04/24 00:00 :00 Bisoprolol Fumarate 5 MG Tablet 05/12/2016 00:00:00 null 1 30 11 [id number] 030 Taking 01/18 00:00 :00 Bisoprolol Fumarate 5 MG Tablet 05/12/2016 00:00:00 null 1 30 11 [id number] 030 Taking 01/09 00:00 :00 Bisoprolol Fumarate 5 MG Tablet 05/12/2016 00:00:00 null 1 30 11 [id number] 030 Taking 01/02 00:00 :00 Bisoprolol Fumarate 5 MG Tablet 05/12/2016 00:00:00 null 1 30 11 [id number] 030 Taking 12/26 00:00 :00 Bisoprolol Fumarate 5 MG Tablet 05/12/2016 00:00:00 null 1 30 11 [id number] 030 Taking 11/05 00:00 :00 Bisoprolol Fumarate 5 MG Tablet 05/12/2016 00:00:00 null 1 30 11 [id number] 030 Taking 10/19 00:00 :00 Bisoprolol Fumarate 5 MG Tablet 05/12/2016 00:00:00 null 1 30 11 [id number] 030 Taking 09/11 00:00 :00 Bisoprolol Fumarate 5 MG Tablet 05/12/2016 00:00:00 null 1 30 11 [id number] 030 Taking 08/24 00:00 :00 Bisoprolol Fumarate 5 MG Tablet 05/12/2016 00:00:00 null 1 30 11 [id number] 030 Taking 08/10 00:00 :00 Bisoprolol Fumarate 5 MG Tablet 05/12/2016 00:00:00 null 1 30 11 [id number] 030 Taking 07/30 00:00 :00 Bisoprolol Fumarate 5 MG Tablet 05/12/2016 00:00:00 null 1 30 11 [id number] 030 Taking 07/24 00:00 :00 Bisoprolol Fumarate 5 MG Tablet 05/12/2016 00:00:00 null 1 30 11 [id number] 030 Taking 07/20 00:00 :00 Bisoprolol Fumarate 5 MG Tablet 05/12/2016 00:00:00 null 1 30 11 [id number] 030 Taking 07/13 00:00 :00 Bisoprolol Fumarate 5 MG Tablet 05/12/2016 00:00:00 null 1 30 11 [id number] 030 Taking 07/06 00:00 :00 Bisoprolol Fumarate 5 MG Tablet 05/12/2016 00:00:00 null 1 30 11 [id number] 030 Taking 06/23 00:00 :00 Bisoprolol Fumarate 5 MG Tablet 05/12/2016 00:00:00 null 1 30 11 [id number] 030 Taking 06/13 00:00 :00 Bisoprolol Fumarate 5 MG Tablet 05/12/2016 00:00:00 null 1 30 11 [id number] 030 Taking 06/06 00:00 :00 Bisoprolol Fumarate 5 MG Tablet 05/12/2016 00:00:00 null 1 30 11 [id number] 030 Taking 05/29 00:00 :00 Bisoprolol Fumarate 5 MG Tablet 05/12/2016 00:00:00 null 1 30 11 [id number] 030 Taking 05/21 00:00 :00 Bisoprolol Fumarate 5 MG Tablet 05/12/2016 00:00:00 null 1 30 11 [id number] 030 Taking 04/16 00:00 :00 Bisoprolol Fumarate 5 MG Tablet 05/12/2016 00:00:00 null 1 30 11 [id number] 030 Taking 02/28 00:00 :00 Bisoprolol Fumarate 5 MG Tablet 05/12/2016 00:00:00 null 1 30 11 [id number] 030 Taking 01/24 00:00 :00 Bisoprolol Fumarate 5 MG Tablet 05/12/2016 00:00:00 null 1 30 11 [id number] 030 Taking 01/09 00:00 :00 Bisoprolol Fumarate 5 MG Tablet 05/12/2016 00:00:00 null 1 30 11 [id number] 030 Taking 12/20 00:00 :00 Bisoprolol Fumarate 5 MG Tablet 05/12/2016 00:00:00 null 1 30 11 [id number] 030 Taking 11/17 00:00 :00 Bisoprolol Fumarate 5 MG Tablet 05/12/2016 00:00:00 null 1 30 11 [id number] 030 Taking 11/11 00:00 :00 Bisoprolol Fumarate 5 MG Tablet 05/12/2016 00:00:00 null 1 30 11 [id number] 030 Taking 08/29 00:00 :00 Bisoprolol Fumarate 5 MG Tablet 05/12/2016 00:00:00 null 1 30 11 [id number] 030 Taking 08/22 00:00 :00 Bisoprolol Fumarate 5 MG Tablet 05/12/2016 00:00:00 null 1 30 11 [id number] 030 Continue 07/20 00:00 :00 Bisoprolol Fumarate 5 MG Tablet 05/12/2016 00:00:00 null 1 30 11 [id number] 030 Continue 06/30 00:00 :00 Bisoprolol Fumarate 5 MG Tablet 05/12/2016 00:00:00 null 0 [id number] 030 Unknown Status 06/06 00:00 :00 Bisoprolol Fumarate 5 MG Tablet 05/12/2016 00:00:00 null 0 [id number] 030 Unknown Status 02/17 00:00 :00 Bisoprolol Fumarate 5 MG Tablet 05/12/2016 00:00:00 null 1 [id number] 030 Taking 02/15 00:00 :00 Bisoprolol Fumarate 5 MG Tablet 05/12/2016 00:00:00 null 1 [id number] 030 Taking 01/05 00:00 :00 Bisoprolol Fumarate 5 MG Tablet 05/12/2016 00:00:00 null 1 [id number] 030 Taking 12/14 00:00 :00 Bisoprolol Fumarate 5 MG Tablet 05/12/2016 00:00:00 null 1 [id number] 030 Taking 11/15 00:00 :00 Bisoprolol Fumarate 5 MG Tablet 05/12/2016 00:00:00 null 1 [id number] 030 Taking 10/31 00:00 :00 Bisoprolol Fumarate 5 MG Tablet 05/12/2016 00:00:00 null 1 [id number] 030 Taking 10/24 00:00 :00 Bisoprolol Fumarate 5 MG Tablet 05/12/2016 00:00:00 null 1 [id number] 030 Taking 09/05 00:00 :00 Bisoprolol Fumarate 5 MG Tablet 05/12/2016 00:00:00 null 1 [id number] 030 Taking 05/12 00:00 :00 Bisoprolol Fumarate 5 MG Tablet 05/12/2016 00:00:00 null 1 [id number] 030 Taking 02/19 00:00 :00 Bumex 2 MG Tablet null null 0 30 2 [id number] 201 P Discontinu ed 01/13 00:00 :00 Bumex 2 MG Tablet null null 1 30 2 [id number] 201 P Taking 01/12 00:00 :00 Bumex 2 MG Tablet null null 1 30 2 [id number] 201 P Taking 11/27 00:00 :00 Bumex 2 MG Tablet null null 1 30 2 [id number] 201 P Taking 11/04 00:00 :00 Bumex 2 MG Tablet null null 1 30 2 [id number] 201 P Taking 06/11 00:00 :00 Bumex 2 MG Tablet null null 1 30 2 [id number] 201 P Refill 06/11 00:00 :00 Bumex 2 MG Tablet null null 1 30 0 [id number] 201 P Taking 05/15 00:00 :00 Bumex 2 MG Tablet null null 1 30 0 [id number] 201 P Taking 04/24 00:00 :00 Bumex 2 MG Tablet null null 1 30 0 [id number] 201 P Refill 04/24 00:00 :00 Bumex 2 MG Tablet null null 1 [id number] 201 Taking 01/18 00:00 :00 Bumex 1 MG Tablet null null 1 60 5 [id number] 101 Taking 01/15 00:00 :00 Bumex 1 MG Tablet null null 1 60 5 [id number] 101 Continue 01/09 00:00 :00 Bumex 1 MG Tablet null null 1 [id number] 101 P Taking 01/02 00:00 :00 Bumex 1 MG Tablet null null 1 [id number] 101 P Refill 01/02 00:00 :00 Bumex 1 MG Tablet null null 1 [id number] 101 Taking 12/26 00:00 :00 Bumex 1 MG Tablet null null 1 [id number] 101 Taking 07/05 00:00 :00 Carvedilol 25 MG Tablet null null 1 180 Tablet 1 [id number] 505 Taking 09/10 00:00 :00 Carvedilol 25 MG Tablet null null 1 180 Tablet 1 [id number] 505 Start 09/10 00:00 :00 Carvedilol 25MG Tablet null null 0 60 11 40167 363 405 Stop 11/26 00:00 :00 Carvedilol 25MG Tablet null null 1 60 11 04213 363 405 P Taking 04/02 00:00 :00 Carvedilol 25MG Tablet null null 1 60 11 64848 363 405 P Taking 02/26 00:00 :00 Carvedilol 25MG Tablet null null 1 60 11 63616 363 405 P Taking 01/19 00:00 :00 Carvedilol 25MG Tablet null null 1 60 11 40025 363 405 P Taking 12/07 00:00 :00 Carvedilol 25MG Tablet null null 1 60 11 35129 363 405 P Taking 11/04 00:00 :00 Carvedilol 25MG Tablet null null 1 60 11 69322 363 405 P Taking 06/16 00:00 :00 Carvedilol 25MG Tablet null null 1 60 11 68791 363 405 P Taking 02/19 00:00 :00 Carvedilol 25MG Tablet null null 1 60 11 25876 363 405 P Taking 01/13 00:00 :00 Carvedilol 25MG Tablet null null 1 60 11 43189 363 405 P Taking 01/12 00:00 :00 Carvedilol 25MG Tablet null null 1 60 11 58753 363 405 P Taking 01/05 00:00 :00 Carvedilol 25MG Tablet null null 1 60 11 50200 363 405 P Continue 11/27 00:00 :00 Carvedilol 25MG Tablet null null 1 180 Tablet 1 25840187 405 P Taking 11/04 00:00 :00 Carvedilol 25MG Tablet null null 1 180 Tablet 1 87462413 405 P Taking 06/11 00:00 :00 Carvedilol 25MG Tablet null null 1 180 Tablet 1 [id number] 405 P Taking 05/15 00:00 :00 Carvedilol 25MG Tablet null null 1 180 Tablet 1 66116802 405 P Taking 04/24 00:00 :00 Carvedilol 25MG Tablet null null 1 180 Tablet 1 [id number] 405 P Taking 01/18 00:00 :00 Carvedilol 25MG Tablet null null 1 180 Tablet 1 52603033 405 P Taking 01/09 00:00 :00 Carvedilol 25MG Tablet null null 1 180 Tablet 1 85358577 405 P Taking 01/02 00:00 :00 Carvedilol 25MG Tablet null null 1 180 Tablet 1 [id number] 405 P Taking 12/26 00:00 :00 Carvedilol 25MG Tablet null null 1 180 Tablet 1 [id number] 405 P Taking 11/05 00:00 :00 Carvedilol 25MG Tablet null null 1 180 Tablet 1 94394411 405 P Taking 10/19 00:00 :00 Carvedilol 25MG Tablet null null 1 180 Tablet 1 [id number] 405 P Taking 09/11 00:00 :00 Carvedilol 25MG Tablet null null 1 180 Tablet 1 [id number] 405 P Taking 08/24 00:00 :00 Carvedilol 25MG Tablet null null 1 180 Tablet 1 [id number] 405 P Taking 08/10 00:00 :00 Carvedilol 25MG Tablet null null 1 180 Tablet 1 [id number] 405 P Taking 07/30 00:00 :00 Carvedilol 25MG Tablet null null 1 180 Tablet 1 [id number] 405 P Taking 07/24 00:00 :00 Carvedilol 25MG Tablet null null 1 180 Tablet 1 [id number] 405 P Taking 07/20 00:00 :00 Carvedilol 25MG Tablet null null 1 180 Tablet 1 [id number] 405 P Taking 07/13 00:00 :00 Carvedilol 25MG Tablet null null 1 180 Tablet 1 [id number] 405 P Taking 07/06 00:00 :00 Carvedilol 25MG Tablet null null 1 180 Tablet 1 [id number] 405 P Taking 06/23 00:00 :00 Carvedilol 25MG Tablet null null 1 180 Tablet 1 [id number] 405 P Taking 06/13 00:00 :00 Carvedilol 25MG Tablet null null 1 180 Tablet 1 [id number] 405 P Taking 06/06 00:00 :00 Carvedilol 25MG Tablet null null 1 180 Tablet 1 [id number] 405 P Taking 05/29 00:00 :00 Carvedilol 25MG Tablet null null 1 180 Tablet 1 [id number] 405 P Taking 05/21 00:00 :00 Carvedilol 25MG Tablet null null 1 180 Tablet 1 [id number] 405 P Start 05/21 00:00 :00 Carvedilol 25 MG Tablet null null 1 79038 729 601 Taking 04/16 00:00 :00 Carvedilol 25 MG Tablet null null 1 10915 729 601 Taking 02/28 00:00 :00 Carvedilol 25 MG Tablet null null 1 21530 729 601 Taking 01/24 00:00 :00 Carvedilol 25 MG Tablet null null 0 97355 [id number] Unknown Status 01/09 00:00 :00 Carvedilol 25 MG Tablet null null 0 35866 729 601 Unknown Status 12/20 00:00 :00 Carvedilol 25 MG Tablet null null 0 52872 729 601 Unknown Status 11/17 00:00 :00 Carvedilol 25 MG Tablet null null 0 70813 729 601 Unknown Status 11/11 00:00 :00 Carvedilol 25 MG Tablet null null 0 76514 729 601 Unknown Status 08/29 00:00 :00 Carvedilol 25 MG Tablet null null 0 13516 729 601 Unknown Status 06/30 00:00 :00 Carvedilol 25 MG Tablet null null 0 23716 729 601 Unknown Status 06/06 00:00 :00 Carvedilol 25 MG Tablet null null 0 49276 729 601 Unknown Status 02/17 00:00 :00 Carvedilol 25 MG Tablet null null 1 09180 729 601 Taking 02/15 00:00 :00 Carvedilol 25 MG Tablet null null 1 34162 729 601 Taking 01/05 00:00 :00 Carvedilol 25 MG Tablet null null 1 75557 729 601 Taking 12/14 00:00 :00 Carvedilol 25 MG Tablet null null 1 96955 729 601 Taking 11/15 00:00 :00 Carvedilol 25 MG Tablet null null 1 06572 729 601 Taking 10/31 00:00 :00 Carvedilol 25 MG Tablet null null 1 92264 729 601 Taking 10/24 00:00 :00 Carvedilol 25 MG Tablet null null 1 66707 729 601 Taking 09/05 00:00 :00 Carvedilol 25 MG Tablet null null 1 29235 729 601 Taking 05/12 00:00 :00 Carvedilol 25 MG Tablet null null 1 45086 729 601 P Continue 05/12 00:00 :00 Carvedilol 25 MG Tablet null null 1 22303 729 601 Taking 05/02 00:00 :00 Carvedilol 25 MG Tablet null null 1 77395 729 601 Taking 03/03 00:00 :00 Carvedilol 25 MG Tablet null null 1 30663 729 601 Taking 11/17 00:00 :00 Carvedilol 25 MG Tablet null null 1 59696 729 601 Taking 10/13 00:00 :00 Carvedilol 25 MG Tablet null null 1 30801 729 601 Taking 08/11 00:00 :00 Carvedilol 25 MG Tablet null null 1 74818 729 601 Taking 06/02 00:00 :00 Carvedilol 25 MG Tablet null null 1 92848 729 601 Taking 05/06 00:00 :00 Carvedilol 25 MG Tablet null null 1 99661 729 601 Taking 03/06 00:00 :00 Carvedilol 25 MG Tablet null null 1 74951 729 601 Taking 01/02 00:00 :00 Carvedilol 25 MG Tablet null null 1 28908 729 601 Taking 10/29 00:00 :00 Carvedilol 25 MG Tablet null null 1 35105 729 601 Taking 09/29 00:00 :00 Carvedilol 25 MG Tablet null null 1 20458 729 601 Taking 07/28 00:00 :00 Carvedilol 25 MG Tablet null null 1 89350 729 601 Taking 06/03 00:00 :00 Carvedilol 12.5 MG Tablet null null 1 61017 729 501 Taking 04/07 00:00 :00 Carvedilol 12.5 MG Tablet null null 1 87041 729 501 P Taking 02/21 00:00 :00 Carvedilol 12.5 MG Tablet null null 1 91904 729 501 P Continue 02/21 00:00 :00 Carvedilol 12.5 MG Tablet null null 1 60 95064 729 501 Taking 02/04 00:00 :00 Carvedilol 12.5 MG Tablet null null 1 60 06186 729 501 Taking 01/07 00:00 :00 Carvedilol 12.5 MG Tablet null null 1 60 58245 729 501 Taking 11/22 00:00 :00 Carvedilol 12.5 MG Tablet null null 1 60 87866 729 501 P Taking 10/30 00:00 :00 Carvedilol 12.5 MG Tablet null null 1 60 82492 729 501 P Taking 10/22 00:00 :00 Carvedilol 12.5 MG Tablet null null 1 60 70182 729 501 Taking 08/01 00:00 :00 Carvedilol 12.5 MG Tablet null null 1 60 09772 729 501 Taking 06/27 00:00 :00 Carvedilol 12.5 MG Tablet null null 1 60 65872 729 501 P Taking 06/04 00:00 :00 Carvedilol 12.5 MG Tablet null null 1 60 81213 729 501 P Taking 05/03 00:00 :00 Carvedilol 12.5 MG Tablet null null 1 60 90852 729 501 Taking 04/30 00:00 :00 Carvedilol 12.5 MG Tablet null null 1 60 55887 729 501 P Taking 04/17 00:00 :00 Carvedilol 12.5 MG Tablet null null 1 60 77122 729 501 Taking 03/28 00:00 :00 Carvedilol 12.5 MG Tablet null null 1 60 73111 729 501 Taking 03/05 00:00 :00 Carvedilol 12.5 MG Tablet null null 1 60 99454 729 501 P Taking 02/06 00:00 :00 Carvedilol 12.5 MG Tablet null null 1 60 68836 729 501 Taking 01/15 00:00 :00 Carvedilol 12.5 MG Tablet null null 1 60 23586 729 501 P Taking 01/11 00:00 :00 Carvedilol 12.5 MG Tablet null null 1 60 43276 729 501 P Taking 12/26 00:00 :00 Carvedilol 12.5 MG Tablet null null 1 60 28349 729 501 Taking 12/03 00:00 :00 Carvedilol 12.5 MG Tablet null null 1 60 34225 729 501 P Taking 11/14 00:00 :00 Carvedilol 12.5 MG Tablet null null 1 60 08642 729 501 P Taking 10/31 00:00 :00 Carvedilol 12.5 MG Tablet null null 1 60 42044 729 501 Taking 10/24 00:00 :00 Carvedilol 12.5 MG Tablet null null 1 60 18034 729 501 Taking 10/23 00:00 :00 Carvedilol 12.5 MG Tablet null null 1 60 74266 729 501 P Taking 10/18 00:00 :00 Carvedilol 12.5 MG Tablet null null 1 60 28811 729 501 P Taking 10/15 00:00 :00 Carvedilol 12.5 MG Tablet null null 1 60 65529 729 501 Taking 07/10 00:00 :00 Carvedilol 12.5 MG Tablet null null 1 60 18143 729 501 P Taking 06/27 00:00 :00 Cephalexin 500 MG Capsule null 3 00:00:00 0 28 0 85209263 701 Start 06/11 00:00 :00 Ciprofloxac in HCl 500 MG Tablet 05/15/2019 00:00:00 null 0 10 Tablet 29517201 204 P Discontinu ed 05/15 00:00 :00 Ciprofloxac in HCl 500 MG Tablet 05/15/2019 00:00:00 null 1 10 Tablet 54964136 204 P Start 02/19 00:00 :00 cloNIDine HCl 0.3MG tablet null null 0 90 Tablet 5 91556457 701 P Discontinu ed 01/13 00:00 :00 cloNIDine HCl 0.3MG tablet null null 1 90 Tablet 5 53295457 701 P Taking 01/12 00:00 :00 cloNIDine HCl 0.3MG tablet null null 1 90 Tablet 5 19953128 701 P Taking 11/27 00:00 :00 cloNIDine HCl 0.3MG tablet null null 1 90 Tablet 5 42305646 701 P Taking 11/04 00:00 :00 cloNIDine HCl 0.3MG tablet null null 1 90 Tablet 5 19470715 701 P Taking 06/11 00:00 :00 cloNIDine HCl 0.3MG tablet null null 1 90 Tablet 5 74247126 701 P Taking 05/15 00:00 :00 cloNIDine HCl 0.3MG tablet null null 1 90 Tablet 5 52241429 701 P Taking 04/24 00:00 :00 cloNIDine HCl 0.3MG tablet null null 1 90 Tablet 5 52402954 701 P Taking 01/18 00:00 :00 cloNIDine HCl 0.3MG tablet null null 1 90 Tablet 5 50028068 701 P Taking 01/09 00:00 :00 cloNIDine HCl 0.3MG tablet null null 1 90 Tablet 5 34542889 701 P Taking 01/02 00:00 :00 cloNIDine HCl 0.3MG tablet null null 1 90 Tablet 5 16354812 701 P Taking 12/26 00:00 :00 cloNIDine HCl 0.3MG tablet null null 1 90 Tablet 5 07526556 70 P Taking 11/05 00:00 :00 cloNIDine HCl 0.3MG tablet null null 1 90 Tablet 5 69770168 70 P Taking 10/19 00:00 :00 cloNIDine HCl 0.3MG tablet null null 1 90 Tablet 5 68502824 70 P Taking 10/10 00:00 :00 cloNIDine HCl 0.3MG null null 1 90 5 Refill 09/11 00:00 :00 cloNIDine HCl 0.3MG tablet null null 1 90 Tablet 5 66080558 70 P Taking 08/24 00:00 :00 cloNIDine HCl 0.3MG tablet null null 1 90 Tablet 5 68494286 70 P Taking 08/10 00:00 :00 cloNIDine HCl 0.3MG tablet null null 1 90 Tablet 5 33518661 70 P Taking 07/30 00:00 :00 cloNIDine HCl 0.3MG tablet null null 1 90 Tablet 5 60876938 70 P Taking 07/24 00:00 :00 cloNIDine HCl 0.3MG tablet null null 1 90 Tablet 5 14227212 70 P Taking 07/20 00:00 :00 cloNIDine HCl 0.3MG tablet null null 1 90 Tablet 5 14702511 70 P Taking 07/13 00:00 :00 cloNIDine HCl 0.3MG tablet null null 1 90 Tablet 5 31836519 70 P Taking 07/06 00:00 :00 cloNIDine HCl 0.3MG tablet null null 1 90 Tablet 5 40425153 70 P Taking 06/23 00:00 :00 cloNIDine HCl 0.3MG tablet null null 1 90 Tablet 5 74852448 70 P Taking 06/13 00:00 :00 cloNIDine HCl 0.3MG tablet null null 1 90 Tablet 5 75077364 70 P Taking 06/06 00:00 :00 cloNIDine HCl 0.3MG tablet null null 1 90 Tablet 5 55396029 70 P Taking 05/29 00:00 :00 cloNIDine HCl 0.3MG tablet null null 1 90 Tablet 5 13859564 70 P Taking 05/21 00:00 :00 cloNIDine HCl 0.3MG tablet null null 1 90 Tablet 5 96170897 701 P Taking 04/16 00:00 :00 cloNIDine HCl 0.3MG tablet null null 1 90 Tablet 5 34678781 70 P Taking 02/28 00:00 :00 cloNIDine HCl 0.3MG tablet null null 1 90 Tablet 5 04003602 701 P Taking 01/27 00:00 :00 cloNIDine HCl 0.3MG tablet null null 1 90 Tablet 5 49166471 701 P Start 01/24 00:00 :00 cloNIDine HCl 0.3MG tablet null null 1 90 Tablet 3 29903337 701 P Taking 01/09 00:00 :00 cloNIDine HCl 0.3MG tablet null null 1 90 Tablet 3 23830074 701 P Taking 12/20 00:00 :00 cloNIDine HCl 0.3MG tablet null null 1 90 Tablet 3 93695176 701 P Taking 11/17 00:00 :00 cloNIDine HCl 0.3MG tablet null null 1 90 Tablet 3 07718610 701 P Taking 11/11 00:00 :00 cloNIDine HCl 0.3MG tablet null null 1 90 Tablet 3 11927121 701 P Taking 08/29 00:00 :00 cloNIDine HCl 0.3MG tablet null null 1 90 Tablet 3 01009849 701 P Taking 08/08 00:00 :00 cloNIDine HCl 0.3MG tablet null null 1 90 Tablet 3 33232917 701 P Start 06/30 00:00 :00 cloNIDine HCl 0.3MG tablet null null 0 90 Tab 5 33883437 701 P Unknown Status 06/06 00:00 :00 cloNIDine HCl 0.3MG tablet null null 0 90 Tab 5 59450793 701 P Unknown Status 02/17 00:00 :00 cloNIDine HCl 0.3MG tablet null null 1 90 Tab 5 38423342 701 P Taking 02/15 00:00 :00 cloNIDine HCl 0.3MG tablet null null 1 90 Tab 5 84349454 70 P Taking 01/21 00:00 :00 cloNIDine HCl 0.3MG tablet null null 1 90 Tab 5 86528592 701 P Start 01/05 00:00 :00 cloNIDine HCl 0.3MG null null 1 90 2 P Taking 12/14 00:00 :00 cloNIDine HCl 0.3MG null null 1 90 2 P Taking 11/15 00:00 :00 cloNIDine HCl 0.3MG null null 1 90 2 P Taking 10/31 00:00 :00 cloNIDine HCl 0.3MG null null 1 90 2 P Taking 10/24 00:00 :00 cloNIDine HCl 0.3MG null null 1 90 2 P Taking 10/12 00:00 :00 cloNIDine HCl 0.3MG null null 1 90 2 P Start 09/05 00:00 :00 cloNIDine HCl 0.3MG Tablet null null 1 90959737 70 Taking 05/12 00:00 :00 cloNIDine HCl 0.3MG Tablet null null 1 13212881 70 P Continue 05/12 00:00 :00 cloNIDine HCl 0.3MG Tablet null null 1 90 Tab 11 87943632 701 P Taking 05/02 00:00 :00 cloNIDine HCl 0.3MG Tablet null null 1 90 Tab 11 36115137 701 P Taking 03/03 00:00 :00 cloNIDine HCl 0.3MG Tablet null null 1 90 Tab 11 05307940 70 P Taking 11/17 00:00 :00 cloNIDine HCl 0.3MG Tablet null null 1 90 Tab 11 44309237 701 P Taking 10/13 00:00 :00 cloNIDine HCl 0.3MG Tablet null null 1 90 Tab 11 70323512 701 P Taking 09/14 00:00 :00 cloNIDine HCl 0.3MG Tablet null null 1 90 Tab 11 93302625 701 P Start 08/13 00:00 :00 cloNIDine HCl 0.3MG Tablet null null 1 90 Tab 0 71264223 701 P Start 08/11 00:00 :00 cloNIDine HCl 0.3MG Tablet null null 1 90 Tab 5 31030474 701 P Taking 07/13 00:00 :00 cloNIDine HCl 0.3MG Tablet null null 1 90 Tab 5 62380065 70 P Start 06/02 00:00 :00 cloNIDine HCl 0.3MG Tablet null null 1 90 Tablet 2 59769547 701 P Taking 05/06 00:00 :00 cloNIDine HCl 0.3MG Tablet null null 1 90 Tablet 2 80835261 701 P Taking 03/26 00:00 :00 cloNIDine HCl 0.3MG Tablet null null 1 90 Tablet 2 46498855 701 P Start 03/06 00:00 :00 cloNIDine HCl 0.3MG Tablet null null 1 90 Not Specified 11 85051283 166 Taking 01/02 00:00 :00 cloNIDine HCl 0.3MG Tablet null null 1 90 Not Specified 11 40328781 166 Taking 10/29 00:00 :00 cloNIDine HCl 0.3MG Tablet null null 1 90 Not Specified 11 54611409 166 Taking 09/29 00:00 :00 cloNIDine HCl 0.3MG Tablet null null 1 90 Not Specified 11 95771817 166 Taking 07/28 00:00 :00 cloNIDine HCl 0.3MG Tablet null null 1 90 Not Specified 11 40956830 166 Taking 06/03 00:00 :00 cloNIDine HCl 0.3MG Tablet null null 1 90 Not Specified 11 66774482 166 Taking 04/07 00:00 :00 cloNIDine HCl 0.3MG Tablet null null 1 90 Not Specified 11 79161064 166 Taking 03/17 00:00 :00 cloNIDine HCl 0.3MG Tablet null null 1 90 Not Specified 11 51729312 166 Start 02/21 00:00 :00 cloNIDine HCl 0.3MG Tablet null null 1 90 2 Taking 02/04 00:00 :00 cloNIDine HCl 0.3MG Tablet null null 1 90 2 Taking 01/07 00:00 :00 cloNIDine HCl 0.3MG Tablet null null 1 90 2 Taking 11/22 00:00 :00 cloNIDine HCl 0.3MG Tablet null null 1 90 2 P Taking 11/05 00:00 :00 cloNIDine HCl 0.3MG Tablet null null 1 90 2 P Start 10/30 00:00 :00 cloNIDine HCl 0.3 Tablet null null 1 90 2 P Taking 10/22 00:00 :00 cloNIDine HCl 0.3 Tablet null null 1 90 2 Taking 08/01 00:00 :00 cloNIDine HCl 0.3 Tablet null null 1 90 2 Taking 06/27 00:00 :00 cloNIDine HCl 0.3 Tablet null null 1 90 2 P Taking 06/04 00:00 :00 cloNIDine HCl 0.3 Tablet null null 1 90 2 P Taking 05/03 00:00 :00 cloNIDine HCl 0.3 Tablet null null 1 90 2 Taking 04/30 00:00 :00 cloNIDine HCl 0.3 Tablet null null 1 90 2 P Taking 04/19 00:00 :00 cloNIDine HCl 0.3 Tablet null null 1 90 2 P Start 04/17 00:00 :00 cloNIDine HCl 0.3 Tablet null null 1 90 2 Taking 03/28 00:00 :00 cloNIDine HCl 0.3 Tablet null null 1 90 2 Taking 03/05 00:00 :00 cloNIDine HCl 0.3 Tablet null null 1 90 2 P Taking 02/06 00:00 :00 cloNIDine HCl 0.3 Tablet null null 1 90 2 Taking 01/15 00:00 :00 cloNIDine HCl 0.3 Tablet null null 1 90 2 P Taking 01/11 00:00 :00 cloNIDine HCl 0.3 Tablet null null 1 90 2 P Taking 12/26 00:00 :00 cloNIDine HCl 0.3 Tablet null null 1 90 2 Taking 12/03 00:00 :00 cloNIDine HCl 0.3 Tablet null null 1 90 2 P Taking 11/14 00:00 :00 cloNIDine HCl 0.3 Tablet null null 1 90 2 P Taking 10/31 00:00 :00 cloNIDine HCl 0.3 Tablet null null 1 90 2 Taking 10/24 00:00 :00 cloNIDine HCl 0.3 Tablet null null 1 90 2 Taking 10/23 00:00 :00 cloNIDine HCl 0.3 Tablet null null 1 90 2 P Refill 10/23 00:00 :00 cloNIDine HCl 0.3 Tablet null null 1 90 2 P Taking 10/18 00:00 :00 cloNIDine HCl 0.3 Tablet null null 1 90 2 P Taking 10/15 00:00 :00 cloNIDine HCl 0.3 Tablet null null 1 90 2 Taking 07/10 00:00 :00 cloNIDine HCl 0.3 Tablet null null 1 90 2 P Taking 04/05 00:00 :00 cloNIDine HCl 0.3 Tablet null null 1 90 2 P Refill 06/04 00:00 :00 Colcrys 0.6 MG Tablet 05/03/2013 00:00:00 null 1 30 18096753 901 P Taking 05/03 00:00 :00 Colcrys 0.6 MG Tablet 05/03/2013 00:00:00 null 1 30 80665551 901 Start 07/05 00:00 :00 Constulose 10 GM/15ML Solution null null 1 1350 Millilite r 1 92309422 963 Taking 11/26 00:00 :00 Constulose 10 GM/15ML Solution null null 1 1350 Millilite r 1 10965130 963 Taking 05/03 00:00 :00 Constulose 10 GM/15ML Solution null null 1 1350 Millilite r 1 50660584 963 Start 01/24 00:00 :00 Coumadin 4 MG Tablet null null 1 30 Tablet 0 06294 016 801 P Taking 01/09 00:00 :00 Coumadin 4 MG Tablet null null 1 30 Tablet 0 12351 016 801 P Taking 12/25 00:00 :00 Coumadin 4 MG Tablet null null 1 30 Tablet 0 42321 016 801 P Start 12/20 00:00 :00 Coumadin 4 MG Tablet 11/17/2017 00:00:00 null 1 30 0 98390652 801 P Taking 11/17 00:00 :00 Coumadin 4 MG Tablet 11/17/2017 00:00:00 null 1 30 0 17959480 801 P Start 01/18 00:00 :00 Cyclobenzap rine HCl 10 MG Tablet 09/11/2018 00:00:00 00:00:00 0 47449799 750 Stop 01/18 00:00 :00 Cyclobenzap rine HCl 10 MG Tablet 09/11/2018 00:00:00 null 1 64326455 750 P Taking 01/09 00:00 :00 Cyclobenzap rine HCl 10 MG Tablet 09/11/2018 00:00:00 null 1 43399430 750 P Taking 01/02 00:00 :00 Cyclobenzap rine HCl 10 MG Tablet 09/11/2018 00:00:00 null 1 93686802 750 P Taking 12/26 00:00 :00 Cyclobenzap rine HCl 10 MG Tablet 09/11/2018 00:00:00 null 1 28764903 750 P Taking 11/05 00:00 :00 Cyclobenzap rine HCl 10 MG Tablet 09/11/2018 00:00:00 null 1 36789017 750 P Taking 10/19 00:00 :00 Cyclobenzap rine HCl 10 MG Tablet null 00:00:00 0 45262646 750 Stop 10/19 00:00 :00 Cyclobenzap rine HCl 10 MG Tablet 09/11/2018 00:00:00 null 1 79563750 750 P Taking 10/19 00:00 :00 Cyclobenzap rine HCl 10 MG Tablet null null 1 30 2 87747793 750 P Not Taking 09/11 00:00 :00 Cyclobenzap rine HCl 10 MG Tablet 09/11/2018 00:00:00 null 1 91656715 750 P Start 09/11 00:00 :00 Cyclobenzap rine HCl 10 MG Tablet null null 1 30 2 98690163 750 P Not Taking 08/24 00:00 :00 Cyclobenzap rine HCl 10 MG Tablet null null 1 30 2 27350274 750 P Not Taking 08/10 00:00 :00 Cyclobenzap rine HCl 10 MG Tablet null null 1 30 2 09376681 750 P Not Taking 07/30 00:00 :00 Cyclobenzap rine HCl 10 MG Tablet null null 1 30 2 06152776 750 P Not Taking 07/24 00:00 :00 Cyclobenzap rine HCl 10 MG Tablet null null 1 30 2 73838822 750 P Not Taking 07/20 00:00 :00 Cyclobenzap rine HCl 10 MG Tablet null null 1 30 2 87340226 750 P Not Taking 07/13 00:00 :00 Cyclobenzap rine HCl 10 MG Tablet null null 1 30 2 42385206 750 P Not Taking 07/06 00:00 :00 Cyclobenzap rine HCl 10 MG Tablet null null 1 30 2 83685310 750 P Not Taking 06/23 00:00 :00 Cyclobenzap rine HCl 10 MG Tablet null null 1 30 2 04316484 750 P Not Taking 06/13 00:00 :00 Cyclobenzap rine HCl 10 MG Tablet null null 1 30 2 14135220 750 P Not Taking 06/06 00:00 :00 Cyclobenzap rine HCl 10 MG Tablet null null 1 30 2 83866499 750 P Not Taking 05/29 00:00 :00 Cyclobenzap rine HCl 10 MG Tablet null null 1 30 2 22300871 750 P Not Taking 05/21 00:00 :00 Cyclobenzap rine HCl 10 MG Tablet null null 1 30 2 54351881 750 P Not Taking 04/16 00:00 :00 Cyclobenzap rine HCl 10 MG Tablet null null 1 30 2 62094285 750 P Not Taking 02/28 00:00 :00 Cyclobenzap rine HCl 10 MG Tablet null null 1 30 2 60239061 750 P Not Taking 01/24 00:00 :00 Cyclobenzap rine HCl 10 MG Tablet null null 1 30 2 64062504 750 P Taking 01/09 00:00 :00 Cyclobenzap rine HCl 10 MG Tablet null null 1 30 2 36842880 750 P Taking 12/20 00:00 :00 Cyclobenzap rine HCl 10 MG Tablet null null 1 30 2 83171126 750 P Taking 11/17 00:00 :00 Cyclobenzap rine HCl 10 MG Tablet null null 1 30 2 73630605 750 P Taking 11/11 00:00 :00 Cyclobenzap rine HCl 10 MG Tablet null null 1 30 2 69831100 750 P Taking 08/29 00:00 :00 Cyclobenzap rine HCl 10 MG Tablet null null 1 30 2 97753162 750 P Taking 06/30 00:00 :00 Cyclobenzap rine HCl 10 MG Tablet null null 1 30 2 66814280 750 P Taking 06/06 00:00 :00 Cyclobenzap rine HCl 10 MG Tablet null null 1 30 2 36846525 750 P Start 06/11 00:00 :00 Dapsone 100 MG Tablet null null 0 25946392 501 Discontinu ed 05/15 00:00 :00 Dapsone 100 MG Tablet null null 1 72627096 501 Taking 04/24 00:00 :00 Dapsone 100 MG Tablet null null 1 79938976 501 Taking 01/18 00:00 :00 Dapsone 100 MG Tablet null null 1 84480159 501 Taking 10/19 00:00 :00 Dicyclomine HCl 10 MG Capsule null 9 00:00:00 0 37306374 601 Stop 10/19 00:00 :00 Dicyclomine HCl 10 MG Capsule null null 0 30 Unspecifi ed 0 59725272 601 Discontinu ed 09/11 00:00 :00 Dicyclomine HCl 10 MG Capsule null null 1 30 Unspecifi ed 0 59226294 601 Taking 08/24 00:00 :00 Dicyclomine HCl 10 MG Capsule null null 1 30 Unspecifi ed 0 98970859 601 Taking 08/10 00:00 :00 Dicyclomine HCl 10 MG Capsule null null 1 30 Unspecifi ed 0 24889188 601 Taking 02/19 00:00 :00 Digoxin 125 MCG Tablet null null 0 30 Tablet 11 086161 81 101 Discontinu ed 01/13 00:00 :00 Digoxin 125 MCG Tablet null null 1 30 Tablet 11 037519 81 101 Taking 01/12 00:00 :00 Digoxin 125 MCG Tablet null null 1 30 Tablet 11 110539 81 101 Taking 11/27 00:00 :00 Digoxin 125 MCG Tablet null null 1 30 Tablet 11 469822 81 101 Taking 11/04 00:00 :00 Digoxin 125 MCG Tablet null null 1 30 Tablet 11 547041 81 101 Taking 06/11 00:00 :00 Digoxin 125 MCG Tablet null null 1 30 Tablet 11 471059 81 101 Taking 05/15 00:00 :00 Digoxin 125 MCG Tablet null null 1 30 Tablet 11 908006 81 101 Taking 04/24 00:00 :00 Digoxin 125 MCG Tablet null null 1 30 Tablet 11 006520 81 101 Taking 01/18 00:00 :00 Digoxin 125 MCG Tablet null null 1 30 Tablet 11 508651 81 101 Taking 01/15 00:00 :00 Digoxin 125 MCG Tablet null null 1 30 Tablet 11 177080 81 101 Continue 01/09 00:00 :00 Digoxin 125 MCG Tablet null null 1 30 Tablet 11 864724 81 101 Taking 01/02 00:00 :00 Digoxin 125 MCG Tablet null null 1 30 Tablet 11 442098 81 101 Taking 12/26 00:00 :00 Digoxin 125 MCG Tablet null null 1 30 Tablet 11 808965 81 101 Taking 11/05 00:00 :00 Digoxin 125 MCG Tablet null null 1 30 Tablet 11 207075 81 101 Taking 10/19 00:00 :00 Digoxin 125 MCG Tablet null null 1 30 Tablet 11 533783 81 101 Taking 09/11 00:00 :00 Digoxin 125 MCG Tablet null null 1 30 Tablet 11 716000 81 101 Taking 08/24 00:00 :00 Digoxin 125 MCG Tablet null null 1 30 Tablet 11 457791 81 101 Taking 08/10 00:00 :00 Digoxin 125 MCG Tablet null null 1 30 Tablet 11 524925 81 101 Taking 07/30 00:00 :00 Digoxin 125 MCG Tablet null null 1 30 Tablet 11 595943 81 101 Taking 07/24 00:00 :00 Digoxin 125 MCG Tablet null null 1 30 Tablet 11 308863 81 101 Taking 07/20 00:00 :00 Digoxin 125 MCG Tablet null null 1 30 Tablet 11 107947 81 101 Taking 07/13 00:00 :00 Digoxin 125 MCG Tablet null null 1 30 Tablet 11 879495 81 101 Taking 07/06 00:00 :00 Digoxin 125 MCG Tablet null null 1 30 Tablet 11 485687 81 101 Taking 06/23 00:00 :00 Digoxin 125 MCG Tablet null null 1 30 Tablet 11 189790 81 101 Taking 06/13 00:00 :00 Digoxin 125 MCG Tablet null null 1 30 Tablet 11 691903 81 101 Taking 06/06 00:00 :00 Digoxin 125 MCG Tablet null null 1 30 Tablet 11 686173 81 101 Taking 05/29 00:00 :00 Digoxin 125 MCG Tablet null null 1 30 Tablet 11 902451 81 101 Taking 05/21 00:00 :00 Digoxin 125 MCG Tablet null null 1 30 Tablet 11 164073 81 101 Taking 04/16 00:00 :00 Digoxin 125 MCG Tablet null null 1 30 Tablet 11 085403 81 101 Taking 03/09 00:00 :00 Digoxin 125 MCG Tablet null null 1 30 Tablet 11 476694 81 101 Continue 02/28 00:00 :00 Digoxin 125 MCG Tablet null null 1 36115546 101 Taking 01/24 00:00 :00 Digoxin 125 MCG Tablet null null 1 97676632 101 Taking 01/09 00:00 :00 Digoxin 125 MCG Tablet null null 1 48522645 101 Taking 12/20 00:00 :00 Digoxin 125 MCG Tablet null null 1 40175825 101 Taking 05/12 00:00 :00 Digoxin 0.125MG Tablet null null 0 30 Tab 11 46295244 101 P Discontinu ed 05/02 00:00 :00 Digoxin 0.125MG Tablet null null 1 30 Tab 11 99670958 101 P Taking 03/03 00:00 :00 Digoxin 0.125MG Tablet null null 1 30 Tab 11 43423838 101 P Taking 11/17 00:00 :00 Digoxin 0.125MG Tablet null null 1 30 Tab 11 06485386 101 P Taking 10/13 00:00 :00 Digoxin 0.125MG Tablet null null 1 30 Tab 11 85317922 101 P Taking 08/11 00:00 :00 Digoxin 0.125MG Tablet null null 1 30 Tab 11 44038480 101 P Taking 08/08 00:00 :00 Digoxin 0.125MG Tablet null null 1 30 Tab 11 56313580 101 P Start 06/02 00:00 :00 Digoxin 125 MCG null null 1 30 11 P Taking 05/06 00:00 :00 Digoxin 125 MCG null null 1 30 11 P Taking 03/06 00:00 :00 Digoxin 125 MCG null null 1 30 11 P Taking 01/02 00:00 :00 Digoxin 125 MCG null null 1 30 11 P Taking 10/29 00:00 :00 Digoxin 125 MCG null null 1 30 11 P Taking 09/29 00:00 :00 Digoxin 125 MCG null null 1 30 11 P Taking 08/05 00:00 :00 Digoxin 125 MCG null null 1 30 11 P Start 07/28 00:00 :00 Digoxin 0.125 MG Tablet null null 1 74038724 101 Taking 06/03 00:00 :00 Digoxin 0.125 MG Tablet null null 1 35430260 101 Taking 04/07 00:00 :00 Digoxin 0.125 MG Tablet null null 1 84590912 101 P Taking 02/21 00:00 :00 Digoxin 0.125 MG Tablet null null 1 98815571 101 P Continue 02/21 00:00 :00 Digoxin 0.125 MG Tablet null null 1 38043403 101 Taking 06/11 00:00 :00 Eliquis 5 MG Tablet 01/21/2019 00:00:00 null 0 30 3 60399372 421 P Discontinu ed 05/15 00:00 :00 Eliquis 5 MG Tablet 01/21/2019 00:00:00 null 1 30 3 65058598 421 P Taking 04/24 00:00 :00 Eliquis 5 MG Tablet 01/21/2019 00:00:00 null 1 30 3 90567113 421 P Taking 01/21 00:00 :00 Eliquis 5 MG Tablet 01/21/2019 00:00:00 null 1 30 3 [id number] 421 P Start 11/04 00:00 :00 Ferrous Sulfate 325 (65 Fe) MG Tablet null null 0 30 5 73522736 161 P Discontinu ed 06/16 00:00 :00 Ferrous Sulfate 325 (65 Fe) MG Tablet null null 1 30 5 69396204 161 P Taking 02/19 00:00 :00 Ferrous Sulfate 325 (65 Fe) MG Tablet null null 1 30 5 15647610 161 P Taking 01/13 00:00 :00 Ferrous Sulfate 325 (65 Fe) MG Tablet null null 1 30 5 87941346 161 P Taking 01/12 00:00 :00 Ferrous Sulfate 325 (65 Fe) MG Tablet null null 1 30 5 76781588 161 P Taking 11/27 00:00 :00 Ferrous Sulfate 325 (65 Fe) MG Tablet null null 1 30 5 88902400 161 P Taking 11/04 00:00 :00 Ferrous Sulfate 325 (65 Fe) MG Tablet null null 1 30 5 60872796 161 P Taking 06/11 00:00 :00 Ferrous Sulfate 325 (65 Fe) MG Tablet null null 1 30 5 24172802 161 P Refill 06/11 00:00 :00 Ferrous Sulfate 325 (65 Fe) MG Tablet null null 1 30 02500455 161 Taking 10/26 00:00 :00 Folic Acid 1 MG Tablet null null 1 90 Tablet 0 115 34892 503 Start 10/26 00:00 :00 Folic Acid 1 MG Tablet null null 0 90 Tablet 1 693 94251 710 Stop 07/05 00:00 :00 Folic Acid 1 MG Tablet null null 1 90 Tablet 1 693 61097 710 Taking 05/12 00:00 :00 Folic Acid 1 MG Tablet null null 1 90 Tablet 1 693 28628 710 Start 05/12 00:00 :00 Folic Acid 1 MG Tablet null null 0 90 Tablet 4 693 38177 710 Stop 04/09 00:00 :00 Folic Acid 1 MG Tablet null null 1 90 Tablet 4 693 75710 710 Start 04/09 00:00 :00 Folic Acid 1 MG Tablet null null 0 90 Tablet 2 693 59600 710 Stop 11/26 00:00 :00 Folic Acid 1 MG Tablet null null 1 90 Tablet 2 693 90836 710 Taking 10/04 00:00 :00 Folic Acid 1 MG Tablet null null 1 90 Tablet 2 693 10293 710 Start 10/04 00:00 :00 Folic Acid 1 MG Tablet null null 0 90 1 12996 012 710 Stop 04/02 00:00 :00 Folic Acid 1 MG Tablet null null 1 90 1 41036 012 710 P Taking 03/18 00:00 :00 Folic Acid 1 MG Tablet null null 1 90 1 55433 012 710 P Refill 02/26 00:00 :00 Folic Acid 1 MG Tablet null null 1 30 6 59631 754 530 P Taking 01/19 00:00 :00 Folic Acid 1 MG Tablet null null 1 30 6 35127 754 530 P Taking 01/06 00:00 :00 Folic Acid 1 MG Tablet null null 1 30 6 54077 754 530 P Refill 12/07 00:00 :00 Folic Acid 1 MG Tablet null null 1 30 Tablet 6 004 14317 530 Taking 11/04 00:00 :00 Folic Acid 1 MG Tablet null null 1 30 Tablet 6 004 13605 530 Taking 06/16 00:00 :00 Folic Acid 1 MG Tablet null null 1 30 Tablet 6 004 57984 530 Taking 05/18 00:00 :00 Folic Acid 1 MG Tablet null null 1 30 Tablet 6 004 77569 530 Continue 02/19 00:00 :00 Folic Acid 1 MG Tablet null null 1 12413 754 530 P Taking 01/13 00:00 :00 Folic Acid 1 MG Tablet null null 1 68566 754 530 P Taking 01/12 00:00 :00 Folic Acid 1 MG Tablet null null 1 47675 754 530 P Taking 11/27 00:00 :00 Folic Acid 1 MG Tablet null null 1 28733 754 530 P Taking 11/04 00:00 :00 Folic Acid 1 MG Tablet null null 1 40133 754 530 P Taking 06/11 00:00 :00 Folic Acid 1 MG Tablet null null 1 78449 754 530 P Taking 05/15 00:00 :00 Folic Acid 1 MG Tablet null null 1 86278 754 530 P Taking 04/24 00:00 :00 Folic Acid 1 MG Tablet null null 1 62992 754 530 P Taking 01/18 00:00 :00 Folic Acid 1 MG Tablet null null 1 30 11 55572 754 530 P Refill 01/18 00:00 :00 Folic Acid 1 MG Tablet null null 1 51628 754 530 Taking 05/03 00:00 :00 Gabapentin 300 MG Capsule 03/05/2013 00:00:00 3 00:00:00 0 [id number] 505 Stop 05/03 00:00 :00 Gabapentin 300 MG Capsule 03/05/2013 00:00:00 null 1 90 2 [id number] 505 Taking 04/30 00:00 :00 Gabapentin 300 MG Capsule 03/05/2013 00:00:00 null 1 90 2 [id number] 505 P Taking 04/17 00:00 :00 Gabapentin 300 MG Capsule 03/05/2013 00:00:00 null 1 90 2 [id number] 505 Taking 03/28 00:00 :00 Gabapentin 300 MG Capsule 03/05/2013 00:00:00 null 1 90 2 [id number] 505 Taking 03/05 00:00 :00 Gabapentin 300 MG Capsule 03/05/2013 00:00:00 null 1 90 2 [id number] 505 Start 03/05 00:00 :00 Gabapentin 100 MG Capsule 03/05/2013 00:00:00 null 0 90 0 [id number] 801 P Stop 10/19 00:00 :00 HumaLOG 100 UNIT/ML null 9 00:00:00 0 Stop 10/19 00:00 :00 HumaLOG 100 UNIT/ML null null 1 10 5 P Not Taki ng 09/11 00:00 :00 HumaLOG 100 UNIT/ML null null 1 10 5 P Not Taki ng 08/24 00:00 :00 HumaLOG 100 UNIT/ML null null 1 10 5 P Not Taki ng 08/10 00:00 :00 HumaLOG 100 UNIT/ML null null 1 10 5 P Not Taki ng 07/30 00:00 :00 HumaLOG 100 UNIT/ML null null 1 10 5 P Not Taki ng 07/24 00:00 :00 HumaLOG 100 UNIT/ML null null 1 10 5 P Not Taki ng 07/20 00:00 :00 HumaLOG 100 UNIT/ML null null 0 10 5 P Unknown Status 07/13 00:00 :00 HumaLOG 100 UNIT/ML null null 0 10 5 P Unknown Status 07/06 00:00 :00 HumaLOG 100 UNIT/ML null null 0 10 5 P Unknown Status 06/23 00:00 :00 HumaLOG 100 UNIT/ML null null 0 10 5 P Unknown Status 06/13 00:00 :00 HumaLOG 100 UNIT/ML null null 0 10 5 P Unknown Status 06/06 00:00 :00 HumaLOG 100 UNIT/ML null null 0 10 5 P Unknown Status 05/29 00:00 :00 HumaLOG 100 UNIT/ML null null 0 10 5 P Unknown Status 05/21 00:00 :00 HumaLOG 100 UNIT/ML null null 0 10 5 P Unknown Status 04/16 00:00 :00 HumaLOG 100 UNIT/ML null null 0 10 5 P Unknown Status 02/28 00:00 :00 HumaLOG 100 UNIT/ML null null 0 10 5 P Unknown Status 01/24 00:00 :00 HumaLOG 100 UNIT/ML null null 0 10 5 P Unknown Status 01/09 00:00 :00 HumaLOG 100 UNIT/ML null null 0 10 5 P Unknown Status 12/20 00:00 :00 HumaLOG 100 UNIT/ML null null 0 10 5 P Unknown Status 11/17 00:00 :00 HumaLOG 100 UNIT/ML null null 0 10 5 P Unknown Status 11/11 00:00 :00 HumaLOG 100 UNIT/ML null null 0 10 5 P Unknown Status 08/29 00:00 :00 HumaLOG 100 UNIT/ML null null 0 10 5 P Unknown Status 06/30 00:00 :00 HumaLOG 100 UNIT/ML null null 0 10 5 P Unknown Status 06/06 00:00 :00 HumaLOG 100 UNIT/ML null null 0 10 5 P Unknown Status 02/17 00:00 :00 HumaLOG 100 UNIT/ML null null 1 10 5 P Taking 02/15 00:00 :00 HumaLOG 100 UNIT/ML null null 1 10 5 P Taking 01/05 00:00 :00 HumaLOG 100 UNIT/ML null null 1 10 5 P Taking 12/14 00:00 :00 HumaLOG 100 UNIT/ML null null 1 10 5 P Taking 11/15 00:00 :00 HumaLOG 100 UNIT/ML null null 1 10 5 P Taking 10/31 00:00 :00 HumaLOG 100 UNIT/ML null null 1 10 5 P Taking 10/24 00:00 :00 HumaLOG 100 UNIT/ML null null 1 10 5 P Taking 09/05 00:00 :00 HumaLOG 100 UNIT/ML null null 1 10 5 P Taking 05/12 00:00 :00 HumaLOG 100 UNIT/ML null null 1 10 5 P Taking 05/02 00:00 :00 HumaLOG 100 UNIT/ML null null 1 10 5 P Taking 03/03 00:00 :00 HumaLOG 100 UNIT/ML null null 1 10 5 P Taking 11/17 00:00 :00 HumaLOG 100 UNIT/ML null null 1 10 5 P Taking 10/13 00:00 :00 HumaLOG 100 UNIT/ML null null 1 10 5 P Taking 09/28 00:00 :00 HumaLOG 100 UNIT/ML null null 1 10 5 P Start 08/11 00:00 :00 HumaLOG 100 UNIT/ML null null 1 10 4 P Taking 06/02 00:00 :00 HumaLOG 100 UNIT/ML null null 1 10 4 P Taking 05/06 00:00 :00 HumaLOG 100 UNIT/ML null null 1 10 4 P Taking 03/06 00:00 :00 HumaLOG 100 UNIT/ML null null 1 10 4 P Taking 01/02 00:00 :00 HumaLOG 100 UNIT/ML null null 1 10 4 P Taking 12/12 00:00 :00 HumaLOG 100 UNIT/ML null null 1 10 4 P Start 10/29 00:00 :00 HumaLOG 100U/ML Solution null null 1 10 Not Specified 5 [id number] 001 Taking 09/29 00:00 :00 HumaLOG 100U/ML Solution null null 1 10 Not Specified 5 [id number] 001 Taking 07/28 00:00 :00 HumaLOG 100U/ML Solution null null 1 10 Not Specified 5 [id number] 001 Taking 06/03 00:00 :00 HumaLOG 100U/ML Solution null null 1 10 Not Specified 5 [id number] 001 Taking 04/08 00:00 :00 HumaLOG 100U/ML Solution null null 1 10 Not Specified 5 [id number] 001 Start 04/07 00:00 :[address] [facility] Solution null null 1 10 [facility] [address] 11 Taking 02/21 00:00 :00 HumaLOG [address] Solution null null 1 10 [facility] 11 Taking 02/04 00:00 :00 HumaLOG [address] Solution null null 1 10 [facility] 11 Taking 01/07 00:00 :00 HumaLOG [address] Solution null null 1 10 [facility] 11 Taking 11/22 00:00 :00 HumaLOG [address] Solution null null 1 10 [facility] [facility] 11 P Taking 10/30 00:00 :00 HumaLOG [address] Solution null null 1 10 [facility] 11 P Taking 10/22 00:00 :00 HumaLOG [address] Solution null null 1 10 [facility] 11 Taking 08/01 00:00 :00 HumaLOG [address] Solution null null 1 10 [facility] 11 Taking 06/27 00:00 :00 HumaLOG [address] Solution null null 1 10 [facility] 11 P Taking 06/04 00:00 :00 HumaLOG [address] Solution null null 1 10 [facility] [facility] 11 P Taking 05/03 00:00 :00 HumaLOG [address] Solution null null 1 10 [facility] 11 Taking 04/30 00:00 :00 HumaLOG [address] Solution null null 1 10 [facility] [facility] 11 P Taking 04/17 00:00 :00 HumaLOG [address] Solution null null 1 10 [facility] 11 Taking 03/28 00:00 :00 HumaLOG [address] Solution null null 1 10 [facility] 11 Taking 03/05 00:00 :00 HumaLOG [address] Solution null null 1 10 [facility] [facility] 11 P Taking 02/26 00:00 :00 HumaLOG [address] Solution null null 1 10 [facility] [facility] 11 P Refill 02/06 00:00 :00 HumaLOG [address] Solution null null 1 10 [facility] 4 Taking 01/15 00:00 :00 HumaLOG [address] Solution null null 1 10 [facility] [facility] 4 P Taking 01/11 00:00 :00 HumaLOG [address] Solution null null 1 10 [facility] [facility] 4 P Taking 01/04 00:00 :00 HumaLOG [address] Solution null null 1 10 [facility] 4 P Refill 12/26 00:00 :00 HumaLOG [address] Solution null null 1 10 [facility] 4 Taking 12/03 00:00 :00 HumaLOG [address] Solution null null 1 10 [facility] [facility] 4 P Taking 11/14 00:00 :00 HumaLOG [address] Solution null null 1 10 [facility] [facility] 4 P Taking 10/31 00:00 :00 HumaLOG [address] Solution null null 1 10 [facility] 4 Taking 10/24 00:00 :00 HumaLOG [address] Solution null null 1 10 [facility] 4 Taking 10/23 00:00 :00 HumaLOG [address] Solution null null 1 10 [facility] [facility] 4 P Taking 10/18 00:00 :00 HumaLOG [address] Solution null null 1 10 [facility] r 4 P Taking 10/15 00:00 :00 HumaLOG [address] Solution null null 1 10 [facility] 4 Taking 07/10 00:00 :00 HumaLOG [address] Solution null null 1 10 [facility] [facility] 4 P Taking 03/28 00:00 :00 HumaLOG [address] Solution null null 1 10 [facility] 4 P Refill 04/02 00:00 :00 hydrALAZINE HCl 50MG tab null null 0 90 2 [id number] 801 Discontinu ed 02/26 00:00 :00 hydrALAZINE HCl 50MG tab null null 1 90 2 [id number] 801 Not Taking 01/19 00:00 :00 hydrALAZINE HCl 50MG tab null null 1 90 2 [id number] 801 Taking 12/07 00:00 :00 hydrALAZINE HCl 50MG tab null null 1 90 2 [id number] 801 Taking 11/04 00:00 :00 hydrALAZINE HCl 50MG tab null null 1 90 2 71651821 801 Taking 06/16 00:00 :00 hydrALAZINE HCl 50MG tab null null 1 90 2 [id number] 801 Taking 02/19 00:00 :00 hydrALAZINE HCl 50MG tab null null 1 90 2 [id number] 801 Taking 01/13 00:00 :00 hydrALAZINE HCl 50MG tab null null 1 90 2 [id number] 801 Taking 01/13 00:00 :00 hydrALAZINE HCl 50 MG Tablet 05/12/2016 00:00:00 null 1 90 Tablet 5 [id number] 292 Taking 01/12 00:00 :00 hydrALAZINE HCl 50MG tab null null 1 90 2 [id number] 801 Taking 01/12 00:00 :00 hydrALAZINE HCl 50 MG Tablet 05/12/2016 00:00:00 null 1 90 Tablet 5 [id number] 292 Taking 12/02 00:00 :00 hydrALAZINE HCl 50 MG Tablet 05/12/2016 00:00:00 null 1 90 Tablet 5 [id number] 292 Continue 12/02 00:00 :00 hydrALAZINE HCl 50MG tab null null 1 90 2 [id number] 801 Refill 12/02 00:00 :00 hydrALAZINE HCl 50 MG Tablet 05/12/2016 00:00:00 null 1 90 Tablet 5 [id number] 292 Continue 11/27 00:00 :00 hydrALAZINE HCl 50 MG Tablet 05/12/2016 00:00:00 null 1 90 Tablet 5 [id number] 292 Taking 11/04 00:00 :00 hydrALAZINE HCl 50 MG Tablet 05/12/2016 00:00:00 null 1 90 Tablet 5 [id number] 292 Taking 06/11 00:00 :00 hydrALAZINE HCl 50 MG Tablet 05/12/2016 00:00:00 null 1 90 Tablet 5 [id number] 292 Taking 05/15 00:00 :00 hydrALAZINE HCl 50 MG Tablet 05/12/2016 00:00:00 null 1 90 Tablet 5 [id number] 292 Taking 04/24 00:00 :00 hydrALAZINE HCl 50 MG Tablet 05/12/2016 00:00:00 null 1 90 Tablet 5 [id number] 292 Taking 04/12 00:00 :00 hydrALAZINE HCl 50 MG Tablet 05/12/2016 00:00:00 null 1 90 Tablet 5 [id number] 292 Continue 01/18 00:00 :00 hydrALAZINE HCl 50 MG Tablet 05/12/2016 00:00:00 null 1 [id number] 292 P Taking 01/09 00:00 :00 hydrALAZINE HCl 50 MG Tablet 05/12/2016 00:00:00 null 1 [id number] 292 P Taking 01/02 00:00 :00 hydrALAZINE HCl 50 MG Tablet 05/12/2016 00:00:00 null 1 [id number] 292 P Continue 01/02 00:00 :00 hydrALAZINE HCl 50 MG Tablet 05/12/2016 00:00:00 null 1 90 2 [id number] 292 P Taking 12/26 00:00 :00 hydrALAZINE HCl 50 MG Tablet 05/12/2016 00:00:00 null 1 90 2 [id number] 292 P Taking 11/05 00:00 :00 hydrALAZINE HCl 50 MG Tablet 05/12/2016 00:00:00 null 1 90 2 [id number] 292 P Taking 10/19 00:00 :00 hydrALAZINE HCl 50 MG Tablet 05/12/2016 00:00:00 null 1 90 2 [id number] 292 P Taking 10/11 00:00 :00 hydrALAZINE HCl 50MG tab null null 1 90 Tablet 10 [id number] 801 Refill 09/11 00:00 :00 hydrALAZINE HCl 50 MG Tablet 05/12/2016 00:00:00 null 1 90 2 [id number] 292 P Taking 09/11 00:00 :00 hydrALAZINE HCl 50MG tab null null 1 90 Tablet 0 [id number] 801 Taking 08/24 00:00 :00 hydrALAZINE HCl 50 MG Tablet 05/12/2016 00:00:00 null 1 90 2 [id number] 292 P Taking 08/24 00:00 :00 hydrALAZINE HCl 50MG tab null null 1 90 Tablet 0 [id number] 801 Taking 08/18 00:00 :00 hydrALAZINE HCl 50MG tab null null 1 90 Tablet 0 [id number] 801 Refill 08/10 00:00 :00 hydrALAZINE HCl 50 MG Tablet 05/12/2016 00:00:00 null 1 90 2 [id number] 292 P Taking 08/10 00:00 :00 hydrALAZINE HCl 50MG tab null null 1 90 Tablet 0 [id number] 801 Taking 07/30 00:00 :00 hydrALAZINE HCl 50 MG Tablet 05/12/2016 00:00:00 null 1 90 2 [id number] 292 P Taking 07/30 00:00 :00 hydrALAZINE HCl 50MG tab null null 1 90 Tablet 0 [id number] 801 Taking 07/24 00:00 :00 hydrALAZINE HCl 50 MG Tablet 05/12/2016 00:00:00 null 1 90 2 [id number] 292 P Taking 07/24 00:00 :00 hydrALAZINE HCl 50MG tab null null 1 90 Tablet 0 [id number] 801 Taking 07/20 00:00 :00 hydrALAZINE HCl 50 MG Tablet 05/12/2016 00:00:00 null 1 90 2 [id number] 292 P Taking 07/20 00:00 :00 hydrALAZINE HCl 50MG tab null null 1 90 Tablet 0 [id number] 801 Taking 07/13 00:00 :00 hydrALAZINE HCl 50 MG Tablet 05/12/2016 00:00:00 null 1 90 2 [id number] 292 P Taking 07/13 00:00 :00 hydrALAZINE HCl 50MG tab null null 1 90 Tablet 0 [id number] 801 Taking 07/06 00:00 :00 hydrALAZINE HCl 50 MG Tablet 05/12/2016 00:00:00 null 1 90 2 [id number] 292 P Taking 07/06 00:00 :00 hydrALAZINE HCl 50MG tab null null 1 90 Tablet 0 [id number] 801 Taking 06/28 00:00 :00 hydrALAZINE HCl 50MG tab null null 1 90 Tablet 0 [id number] 801 Refill 06/23 00:00 :00 hydrALAZINE HCl 50 MG Tablet 05/12/2016 00:00:00 null 1 90 2 [id number] 292 P Taking 06/23 00:00 :00 hydrALAZINE HCl 50MG tab null null 1 90 Tablet 0 [id number] 801 P Taking 06/13 00:00 :00 hydrALAZINE HCl 50 MG Tablet 05/12/2016 00:00:00 null 1 90 2 [id number] 292 P Taking 06/13 00:00 :00 hydrALAZINE HCl 50MG tab null null 1 90 Tablet 0 [id number] 801 P Taking 06/06 00:00 :00 hydrALAZINE HCl 50 MG Tablet 05/12/2016 00:00:00 null 1 90 2 [id number] 292 P Taking 06/06 00:00 :00 hydrALAZINE HCl 50MG tab null null 1 90 Tablet 0 [id number] 801 P Taking 05/29 00:00 :00 hydrALAZINE HCl 50 MG Tablet 05/12/2016 00:00:00 null 1 90 2 [id number] 292 P Taking 05/29 00:00 :00 hydrALAZINE HCl 50MG tab null null 1 90 Tablet 0 [id number] 801 P Taking 05/21 00:00 :00 hydrALAZINE HCl 50 MG Tablet 05/12/2016 00:00:00 null 1 90 2 [id number] 292 P Taking 05/21 00:00 :00 hydrALAZINE HCl 50MG tab null null 1 90 Tablet 0 [id number] 801 P Taking 05/21 00:00 :00 hydrALAZINE HCl 50MG tab null null 1 90 Tablet 0 [id number] 801 P Start 04/16 00:00 :00 hydrALAZINE HCl 50 MG Tablet 05/12/2016 00:00:00 null 1 90 2 [id number] 292 P Taking 04/16 00:00 :00 hydrALAZINE HCl 50MG tab null null 1 90 Tablet 0 [id number] 801 P Taking 04/16 00:00 :00 hydrALAZINE HCl 50MG tab null null 1 90 Tablet 0 [id number] 801 P Start 04/11 00:00 :00 hydrALAZINE HCl 50MG tab null null 1 90 Tablet 10 [id number] 801 P Start 03/05 00:00 :00 hydrALAZINE HCl 50MG tab null null 1 90 Tablet 0 [id number] 801 P Start 02/28 00:00 :00 hydrALAZINE HCl 50 MG Tablet 05/12/2016 00:00:00 null 1 90 2 [id number] 292 P Taking 01/24 00:00 :00 hydrALAZINE HCl 50 MG Tablet 05/12/2016 00:00:00 null 1 90 2 [id number] 292 P Taking 01/09 00:00 :00 hydrALAZINE HCl 50 MG Tablet 05/12/2016 00:00:00 null 1 90 2 [id number] 292 P Taking 12/20 00:00 :00 hydrALAZINE HCl 50 MG Tablet 05/12/2016 00:00:00 null 1 90 2 [id number] 292 P Taking 11/17 00:00 :00 hydrALAZINE HCl 50 MG Tablet 05/12/2016 00:00:00 null 1 90 2 [id number] 292 P Taking 11/11 00:00 :00 hydrALAZINE HCl 50 MG Tablet 05/12/2016 00:00:00 null 1 90 2 [id number] 292 P Start 11/11 00:00 :00 hydrALAZINE HCl 100 MG Tablet 05/12/2016 00:00:00 null 0 90 2 [id number] 500 Unknown Status 08/29 00:00 :00 hydrALAZINE HCl 100 MG Tablet 05/12/2016 00:00:00 null 0 90 2 [id number] 500 Unknown Status 06/30 00:00 :00 hydrALAZINE HCl 100 MG Tablet 05/12/2016 00:00:00 null 0 90 2 [id number] 500 Unknown Status 06/06 00:00 :00 hydrALAZINE HCl 100 MG Tablet 05/12/2016 00:00:00 null 0 90 2 [id number] 500 Unknown Status 04/17 00:00 :00 hydrALAZINE HCl 100 MG Tablet 05/12/2016 00:00:00 null 1 90 2 [id number] 500 Continue 02/17 00:00 :00 hydrALAZINE HCl 100 MG Tablet 05/12/2016 00:00:00 null 1 90 2 [id number] 500 P Taking 02/15 00:00 :00 hydrALAZINE HCl 100 MG Tablet 05/12/2016 00:00:00 null 1 90 2 [id number] 500 P Taking 01/05 00:00 :00 hydrALAZINE HCl 100 MG Tablet 05/12/2016 00:00:00 null 1 90 2 [id number] 500 P Taking 12/14 00:00 :00 hydrALAZINE HCl 100 MG Tablet 05/12/2016 00:00:00 null 1 90 2 [id number] 500 P Taking 11/15 00:00 :00 hydrALAZINE HCl 100 MG Tablet 05/12/2016 00:00:00 null 1 90 2 [id number] 500 P Taking 10/31 00:00 :00 hydrALAZINE HCl 100 MG Tablet 05/12/2016 00:00:00 null 1 90 2 [id number] 500 P Taking 10/24 00:00 :00 hydrALAZINE HCl 100 MG Tablet 05/12/2016 00:00:00 null 1 90 2 [id number] 500 P Taking 09/05 00:00 :00 hydrALAZINE HCl 100 MG Tablet 05/12/2016 00:00:00 null 1 90 2 [id number] 500 P Taking 05/12 00:00 :00 hydrALAZINE HCl 100 MG Tablet 05/12/2016 00:00:00 null 1 90 2 [id number] 500 P Start 05/12 00:00 :00 hydrALAZINE HCl 25MG Tablet null 6 00:00:00 0 Stop 05/12 00:00 :00 hydrALAZINE HCl 25MG Tablet null null 1 P Taking 05/02 00:00 :00 hydrALAZINE HCl 25MG Tablet null null 1 P Taking 03/03 00:00 :00 hydrALAZINE HCl 25MG Tablet null null 1 P Taking 11/17 00:00 :00 hydrALAZINE HCl 25MG Tablet null null 1 P Taking 10/13 00:00 :00 hydrALAZINE HCl 25MG Tablet null null 1 P Taking 08/11 00:00 :00 hydrALAZINE HCl 25MG Tablet null null 1 P Taking 06/04 00:00 :00 hydrALAZINE HCl 25MG Tablet null null 1 60 Tab 5 [id number] 701 P Start 06/02 00:00 :00 hydrALAZINE HCl 25MG Tablet null null 1 60 Tab 0 [id number] 701 P Taking 05/07 00:00 :00 hydrALAZINE HCl 25MG Tablet null null 1 60 Tab 0 [id number] 701 P Start 05/06 00:00 :00 hydrALAZINE HCl 25MG Tablet null null 1 60 Tablet 5 [id number] 701 P Taking 03/06 00:00 :00 hydrALAZINE HCl 25MG Tablet null null 1 60 Tablet 5 [id number] 701 P Taking 01/02 00:00 :00 hydrALAZINE HCl 25MG Tablet null null 1 60 Tablet 5 [id number] 701 P Taking 11/03 00:00 :00 hydrALAZINE HCl 25MG Tablet null null 1 60 Tablet 5 [id number] 701 P Start 10/29 00:00 :00 hydrALAZINE HCl 50 MG Tablet null null 1 [id number] 500 Taking 09/29 00:00 :00 hydrALAZINE HCl 50 MG Tablet null null 1 [id number] 500 Taking 07/28 00:00 :00 hydrALAZINE HCl 50 MG Tablet null null 1 [id number] 500 Taking 06/03 00:00 :00 hydrALAZINE HCl 25MG Tablet null null 1 60 Not Specified 4 [id number] 701 Taking 05/26 00:00 :00 hydrALAZINE HCl 25MG Tablet null null 1 60 Not Specified 4 [id number] 701 Start 04/21 00:00 :00 hydrALAZINE HCl 25MG Tablet null null 1 60 Not Specified 0 [id number] 701 Start 04/07 00:00 :00 hydrALAZINE HCl 25MG Tablet null null 1 60 4 Taking 02/21 00:00 :00 hydrALAZINE HCl 25MG Tablet null null 1 60 4 Taking 02/04 00:00 :00 hydrALAZINE HCl 25MG Tablet null null 1 60 4 Taking 01/07 00:00 :00 hydrALAZINE HCl 25MG Tablet null null 1 60 4 Taking 11/22 00:00 :00 hydrALAZINE HCl 25MG Tablet null null 1 60 4 P Taking 10/30 00:00 :00 hydrALAZINE HCl 25MG Tablet null null 1 60 4 P Taking 10/24 00:00 :00 hydrALAZINE HCl 25MG Tablet null null 1 60 4 P Start 10/22 00:00 :00 hydrALAZINE HCl 25 MG Tablet null null 1 60 5 [id number] 001 Taking 08/01 00:00 :00 hydrALAZINE HCl 25 MG Tablet null null 1 60 5 [id number] 001 Taking 06/27 00:00 :00 hydrALAZINE HCl 25 MG Tablet null null 1 60 5 [id number] 001 P Taking 06/04 00:00 :00 hydrALAZINE HCl 25 MG Tablet null null 1 60 5 [id number] 001 P Taking 05/03 00:00 :00 hydrALAZINE HCl 25 MG Tablet null null 1 60 5 [id number] 001 Taking 04/30 00:00 :00 hydrALAZINE HCl 25 MG Tablet null null 1 60 5 [id number] 001 P Taking 04/17 00:00 :00 hydrALAZINE HCl 25 MG Tablet null null 1 60 5 [id number] 001 Taking 03/28 00:00 :00 hydrALAZINE HCl 25 MG Tablet null null 1 60 5 [id number] 001 Taking 03/25 00:00 :00 hydrALAZINE HCl 25 MG Tablet null null 1 60 5 [id number] 001 P Continue 03/05 00:00 :00 hydrALAZINE HCl 25 MG Tablet null null 1 60 [id number] 001 P Taking 02/06 00:00 :00 hydrALAZINE HCl 25 MG Tablet null null 1 60 [id number] 001 Taking 01/15 00:00 :00 hydrALAZINE HCl 25 MG Tablet null null 1 60 [id number] 001 P Taking 01/11 00:00 :00 hydrALAZINE HCl 25 MG Tablet null null 1 60 [id number] 001 P Taking 12/26 00:00 :00 hydrALAZINE HCl 25 MG Tablet null null 1 60 [id number] 001 Taking 12/03 00:00 :00 hydrALAZINE HCl 25 MG Tablet null null 1 60 [id number] 001 P Taking 11/14 00:00 :00 hydrALAZINE HCl 25 MG Tablet null null 1 60 [id number] 001 P Taking 10/31 00:00 :00 hydrALAZINE HCl 25 MG Tablet null null 1 60 [id number] 001 Taking 10/24 00:00 :00 hydrALAZINE HCl 25 MG Tablet null null 1 60 [id number] 001 Taking 10/23 00:00 :00 hydrALAZINE HCl 25 MG Tablet null null 1 60 [id number] 001 P Taking 10/18 00:00 :00 hydrALAZINE HCl 25 MG Tablet null null 1 60 [id number] 001 P Taking 10/15 00:00 :00 hydrALAZINE HCl 25 MG Tablet null null 1 60 [id number] 001 Taking 07/10 00:00 :00 hydrALAZINE HCl 25 MG Tablet null null 1 60 [id number] 001 P Taking 08/01 00:00 :00 hydroCHLORO thiazide 25 MG Tablet null null 0 60 1 [id number] 399 Stop 08/01 00:00 :00 hydroCHLORO thiazide 25 MG Tablet 12/26/2012 00:00:00 null 1 120 5 [id number] 399 Taking 06/27 00:00 :00 hydroCHLORO thiazide 25 MG Tablet 12/26/2012 00:00:00 null 1 120 5 [id number] 399 P Taking 06/04 00:00 :00 hydroCHLORO thiazide 25 MG Tablet 12/26/2012 00:00:00 null 1 120 5 [id number] 399 P Taking 05/03 00:00 :00 hydroCHLORO thiazide 25 MG Tablet 12/26/2012 00:00:00 null 1 120 5 [id number] 399 Taking 04/30 00:00 :00 hydroCHLORO thiazide 25 MG Tablet 12/26/2012 00:00:00 null 1 120 5 [id number] 399 P Taking 04/17 00:00 :00 hydroCHLORO thiazide 25 MG Tablet 12/26/2012 00:00:00 null 1 120 5 [id number] 399 Taking 03/28 00:00 :00 hydroCHLORO thiazide 25 MG Tablet 12/26/2012 00:00:00 null 1 120 5 [id number] 399 Taking 03/05 00:00 :00 hydroCHLORO thiazide 25 MG Tablet 12/26/2012 00:00:00 null 1 120 5 [id number] 399 P Taking 02/06 00:00 :00 hydroCHLORO thiazide 25 MG Tablet 12/26/2012 00:00:00 null 1 120 5 [id number] 399 Taking 01/15 00:00 :00 hydroCHLORO thiazide 25 MG Tablet 12/26/2012 00:00:00 null 1 120 5 [id number] 399 P Taking 01/11 00:00 :00 hydroCHLORO thiazide 25 MG Tablet 12/26/2012 00:00:00 null 1 120 5 [id number] 399 P Taking 12/26 00:00 :00 hydroCHLORO thiazide 25 MG Tablet 12/26/2012 00:00:00 null 1 120 5 [id number] 399 Start 12/26 00:00 :00 hydroCHLORO thiazide 25 MG Tablet null null 1 30 [id number] 399 Taking 12/03 00:00 :00 hydroCHLORO thiazide 25 MG Tablet null null 1 30 [id number] 399 P Taking 11/14 00:00 :00 hydroCHLORO thiazide 25 MG Tablet null null 1 30 [id number] 399 P Taking 10/31 00:00 :00 hydroCHLORO thiazide 25 MG Tablet null null 1 30 [id number] 399 Taking 10/24 00:00 :00 hydroCHLORO thiazide 25 MG Tablet null null 1 30 [id number] 399 Taking 10/23 00:00 :00 hydroCHLORO thiazide 25 MG Tablet null null 1 30 [id number] 399 P Taking 10/18 00:00 :00 hydroCHLORO thiazide 25 MG Tablet null null 1 30 [id number] 399 P Taking 10/15 00:00 :00 hydroCHLORO thiazide 25 MG Tablet null null 1 30 [id number] 399 Taking 07/10 00:00 :00 hydroCHLORO thiazide 25 MG Tablet null null 1 30 [id number] 399 P Taking 10/19 00:00 :00 HYDROcodone -Acetaminop hen 5-325 MG Tablet 01/24/2018 00:00:00 9 00:00:00 0 [id number] 028 Stop 10/19 00:00 :00 HYDROcodone -Acetaminop hen 5-325 MG Tablet 01/24/2018 00:00:00 null 1 24 0 [id number] 028 P Not Taking 09/11 00:00 :00 HYDROcodone -Acetaminop hen 5-325 MG Tablet 01/24/2018 00:00:00 null 1 24 0 [id number] 028 P Not Taking 08/24 00:00 :00 HYDROcodone -Acetaminop hen 5-325 MG Tablet 01/24/2018 00:00:00 null 1 24 0 [id number] 028 P Not Taking 08/10 00:00 :00 HYDROcodone -Acetaminop hen 5-325 MG Tablet 01/24/2018 00:00:00 null 1 24 0 [id number] 028 P Not Taking 07/30 00:00 :00 HYDROcodone -Acetaminop hen 5-325 MG Tablet 01/24/2018 00:00:00 null 1 24 0 [id number] 028 P Not Taking 07/24 00:00 :00 HYDROcodone -Acetaminop hen 5-325 MG Tablet 01/24/2018 00:00:00 null 1 24 0 [id number] 028 P Not Taking 07/20 00:00 :00 HYDROcodone -Acetaminop hen 5-325 MG Tablet 01/24/2018 00:00:00 null 1 24 0 [id number] 028 P Not Taking 07/13 00:00 :00 HYDROcodone -Acetaminop hen 5-325 MG Tablet 01/24/2018 00:00:00 null 1 24 0 [id number] 028 P Not Taking 07/06 00:00 :00 HYDROcodone -Acetaminop hen 5-325 MG Tablet 01/24/2018 00:00:00 null 1 24 0 [id number] 028 P Not Taking 06/23 00:00 :00 HYDROcodone -Acetaminop hen 5-325 MG Tablet 01/24/2018 00:00:00 null 1 24 0 [id number] 028 P Not Taking 06/13 00:00 :00 HYDROcodone -Acetaminop hen 5-325 MG Tablet 01/24/2018 00:00:00 null 1 24 0 [id number] 028 P Not Taking 06/06 00:00 :00 HYDROcodone -Acetaminop hen 5-325 MG Tablet 01/24/2018 00:00:00 null 1 24 0 [id number] 028 P Not Taking 05/29 00:00 :00 HYDROcodone -Acetaminop hen 5-325 MG Tablet 01/24/2018 00:00:00 null 1 24 0 [id number] 028 P Not Taking 05/21 00:00 :00 HYDROcodone -Acetaminop hen 5-325 MG Tablet 01/24/2018 00:00:00 null 1 24 0 [id number] 028 P Not Taking 04/16 00:00 :00 HYDROcodone -Acetaminop hen 5-325 MG Tablet 01/24/2018 00:00:00 null 1 24 0 [id number] 028 P Not Taking 02/28 00:00 :00 HYDROcodone -Acetaminop hen 5-325 MG Tablet 01/24/2018 00:00:00 null 1 24 0 [id number] 028 P Not Taking 01/24 00:00 :00 HYDROcodone -Acetaminop hen 5-325 MG Tablet 01/24/2018 00:00:00 null 1 24 0 [id number] 028 P Start 07/28 00:00 :00 HYDROcodone -Acetaminop hen 5-500 MG Capsule 01/15/2013 00:00:00 null 0 60 2 [id number] 900 Discontinu ed 06/03 00:00 :00 HYDROcodone -Acetaminop hen 5-500 MG Capsule 01/15/2013 00:00:00 null 1 60 2 [id number] 900 Taking 04/07 00:00 :00 HYDROcodone -Acetaminop hen 5-500 MG Capsule 01/15/2013 00:00:00 null 1 60 2 [id number] 900 Taking 02/21 00:00 :00 HYDROcodone -Acetaminop hen 5-500 MG Capsule 01/15/2013 00:00:00 null 1 60 2 [id number] 900 Taking 02/04 00:00 :00 HYDROcodone -Acetaminop hen 5-500 MG Capsule 01/15/2013 00:00:00 null 1 60 2 [id number] 900 Taking 01/07 00:00 :00 HYDROcodone -Acetaminop hen 5-500 MG Capsule 01/15/2013 00:00:00 null 1 60 2 [id number] 900 Taking 11/22 00:00 :00 HYDROcodone -Acetaminop hen 5-500 MG Capsule 01/15/2013 00:00:00 null 1 60 2 [id number] 900 P Taking 10/30 00:00 :00 HYDROcodone -Acetaminop hen 5-500 MG Capsule 01/15/2013 00:00:00 null 1 60 2 [id number] 900 P Taking 10/22 00:00 :00 HYDROcodone -Acetaminop hen 5-500 MG Capsule 01/15/2013 00:00:00 null 1 60 2 [id number] 900 Taking 08/01 00:00 :00 HYDROcodone -Acetaminop hen 5-500 MG Capsule 01/15/2013 00:00:00 null 1 60 2 [id number] 900 Taking 06/27 00:00 :00 HYDROcodone -Acetaminop hen 5-500 MG Capsule 01/15/2013 00:00:00 null 1 60 2 [id number] 900 P Taking 06/04 00:00 :00 HYDROcodone -Acetaminop hen 5-500 MG Capsule 01/15/2013 00:00:00 null 1 60 2 [id number] 900 P Taking 05/03 00:00 :00 HYDROcodone -Acetaminop hen 5-500 MG Capsule 01/15/2013 00:00:00 null 1 60 2 [id number] 900 Taking 04/30 00:00 :00 HYDROcodone -Acetaminop hen 5-500 MG Capsule 01/15/2013 00:00:00 null 1 60 2 [id number] 900 P Taking 04/17 00:00 :00 HYDROcodone -Acetaminop hen 5-500 MG Capsule 01/15/2013 00:00:00 null 1 60 2 [id number] 900 Taking 03/28 00:00 :00 HYDROcodone -Acetaminop hen 5-500 MG Capsule 01/15/2013 00:00:00 null 1 60 2 [id number] 900 Taking 03/05 00:00 :00 HYDROcodone -Acetaminop hen 5-500 MG Capsule 01/15/2013 00:00:00 null 1 60 2 [id number] 900 P Taking 02/06 00:00 :00 HYDROcodone -Acetaminop hen 5-500 MG Capsule 01/15/2013 00:00:00 null 1 60 2 [id number] 900 Taking 01/15 00:00 :00 HYDROcodone -Acetaminop hen 5-500 MG Capsule 01/15/2013 00:00:00 null 1 60 2 [id number] 900 Start 07/05 00:00 :00 Hydrocortis one 1 % Cream 06/16/2020 00:00:00 null 1 1 0 [id number] 516 P Taking 11/26 00:00 :00 Hydrocortis one 1 % Cream 06/16/2020 00:00:00 null 1 1 0 [id number] 516 P Taking 04/02 00:00 :00 Hydrocortis one 1 % Cream 06/16/2020 00:00:00 null 1 1 0 [id number] 516 P Taking 02/26 00:00 :00 Hydrocortis one 1 % Cream 06/16/2020 00:00:00 null 1 1 0 [id number] 516 P Taking 01/19 00:00 :00 Hydrocortis one 1 % Cream 06/16/2020 00:00:00 null 1 1 0 [id number] 516 P Taking 12/07 00:00 :00 Hydrocortis one 1 % Cream 06/16/2020 00:00:00 null 1 1 0 [id number] 516 P Taking 11/04 00:00 :00 Hydrocortis one 1 % Cream 06/16/2020 00:00:00 null 1 1 0 [id number] 516 P Taking 06/16 00:00 :00 Hydrocortis one 1 % Cream 06/16/2020 00:00:00 null 1 1 0 [id number] 516 P Start 10/30 00:00 :00 hydrOXYzine HCl 25 MG Tablet 10/31/2012 00:00:00 null 1 40 1 [id number] 500 P Taking 10/22 00:00 :00 hydrOXYzine HCl 25 MG Tablet 10/31/2012 00:00:00 null 1 40 1 [id number] 500 Taking 08/01 00:00 :00 hydrOXYzine HCl 25 MG Tablet 10/31/2012 00:00:00 null 1 40 1 [id number] 500 Taking 06/27 00:00 :00 hydrOXYzine HCl 25 MG Tablet 10/31/2012 00:00:00 null 1 40 1 [id number] 500 P Taking 06/04 00:00 :00 hydrOXYzine HCl 25 MG Tablet 10/31/2012 00:00:00 null 1 40 1 [id number] 500 P Taking 05/03 00:00 :00 hydrOXYzine HCl 25 MG Tablet 10/31/2012 00:00:00 null 1 40 1 [id number] 500 Taking 04/30 00:00 :00 hydrOXYzine HCl 25 MG Tablet 10/31/2012 00:00:00 null 1 40 1 [id number] 500 P Taking 04/17 00:00 :00 hydrOXYzine HCl 25 MG Tablet 10/31/2012 00:00:00 null 1 40 1 [id number] 500 Taking 03/28 00:00 :00 hydrOXYzine HCl 25 MG Tablet 10/31/2012 00:00:00 null 1 40 1 [id number] 500 Taking 03/05 00:00 :00 hydrOXYzine HCl 25 MG Tablet 10/31/2012 00:00:00 null 1 40 1 [id number] 500 P Taking 02/06 00:00 :00 hydrOXYzine HCl 25 MG Tablet 10/31/2012 00:00:00 null 1 40 1 [id number] 500 Taking 01/15 00:00 :00 hydrOXYzine HCl 25 MG Tablet 10/31/2012 00:00:00 null 1 40 1 [id number] 500 P Taking 01/11 00:00 :00 hydrOXYzine HCl 25 MG Tablet 10/31/2012 00:00:00 null 1 40 1 [id number] 500 P Taking 12/26 00:00 :00 hydrOXYzine HCl 25 MG Tablet 10/31/2012 00:00:00 null 1 40 1 [id number] 500 Taking 12/03 00:00 :00 hydrOXYzine HCl 25 MG Tablet 10/31/2012 00:00:00 null 1 40 1 [id number] 500 P Taking 11/14 00:00 :00 hydrOXYzine HCl 25 MG Tablet 10/31/2012 00:00:00 null 1 40 1 [id number] 500 P Taking 10/31 00:00 :00 hydrOXYzine HCl 25 MG Tablet 10/31/2012 00:00:00 null 1 40 1 [id number] 500 P Start 07/28 00:00 :00 Indomethaci n 25 MG Capsule null null 0 60 [id number] 210 Discontinu ed 06/03 00:00 :00 Indomethaci n 25 MG Capsule null null 1 60 [id number] 210 Taking 04/07 00:00 :00 Indomethaci n 25 MG Capsule null null 1 60 [id number] 210 Taking 02/21 00:00 :00 Indomethaci n 25 MG Capsule null null 1 60 [id number] 210 Taking 02/04 00:00 :00 Indomethaci n 25 MG Capsule null null 1 60 [id number] 210 Taking 01/07 00:00 :00 Indomethaci n 25 MG Capsule null null 1 60 [id number] 210 Taking 11/22 00:00 :00 Indomethaci n 25 MG Capsule null null 1 60 [id number] 210 P Taking 10/30 00:00 :00 Indomethaci n 25 MG Capsule null null 1 60 [id number] 210 P Taking 10/22 00:00 :00 Indomethaci n 25 MG Capsule null null 1 60 92406051 210 Taking 08/01 00:00 :00 Indomethaci n 25 MG Capsule null null 1 60 [id number] 210 Start 06/27 00:00 :00 Indomethaci n 25 MG Capsule null 3 00:00:00 0 30 0 [id number] 210 Start 06/27 00:00 :00 Indomethaci n 25 MG Capsule 04/30/2013 00:00:00 null 1 30 [id number] 210 P Taking 06/04 00:00 :00 Indomethaci n 25 MG Capsule 04/30/2013 00:00:00 null 1 30 [id number] 210 P Taking 05/03 00:00 :00 Indomethaci n 25 MG Capsule 04/30/2013 00:00:00 null 1 30 [id number] 210 Taking 04/30 00:00 :00 Indomethaci n 25 MG Capsule 04/30/2013 00:00:00 null 1 30 [id number] 210 Start 07/06 00:00 :00 Ipratropium [place] 0.02 % Solution 01/13/2020 00:00:00 null 1 30 3 [id number] 031 P Refill 07/05 00:00 :00 Ipratropium [place] 0.02 % Solution 01/13/2020 00:00:00 null 1 6 [id number] 031 Taking 11/26 00:00 :00 Ipratropium [place] 0.02 % Solution 01/13/2020 00:00:00 null 1 6 [id number] 031 Taking 04/02 00:00 :00 Ipratropium [place] 0.02 % Solution 01/13/2020 00:00:00 null 1 6 [id number] 031 Taking 02/26 00:00 :00 Ipratropium [place] 0.02 % Solution 01/13/2020 00:00:00 null 1 6 [id number] 031 Taking 01/19 00:00 :00 Ipratropium [place] 0.02 % Solution 01/13/2020 00:00:00 null 1 6 [id number] 031 Taking 12/07 00:00 :00 Ipratropium [place] 0.02 % Solution 01/13/2020 00:00:00 null 1 6 [id number] 031 Taking 11/04 00:00 :00 Ipratropium [place] 0.02 % Solution 01/13/2020 00:00:00 null 1 6 [id number] 031 Taking 06/16 00:00 :00 Ipratropium [place] 0.02 % Solution 01/13/2020 00:00:00 null 1 6 [id number] 031 Taking 02/19 00:00 :00 Ipratropium [place] 0.02 % Solution 01/13/2020 00:00:00 null 1 6 [id number] 031 Taking 01/13 00:00 :00 Ipratropium [place] 0.02 % Solution 01/14/2020 00:00:00 null 1 675 ml 6 [id number] 031 P Continue 01/13 00:00 :00 Ipratropium [place] 0.02 % Solution 01/13/2020 00:00:00 null 1 6 [id number] 031 Taking 01/13 00:00 :00 Ipratropium [place] 0.02 % Solution 01/13/2020 00:00:00 null 1 6 [id number] 031 Continue 01/13 00:00 :00 Ipratropium [place] 0.02 % Solution 01/13/2020 00:00:00 null 1 6 [id number] 031 Continue 01/13 00:00 :00 Ipratropium [place] 0.02 % Solution 01/13/2020 00:00:00 null 1 6 [id number] 031 Continue 01/12 00:00 :00 Ipratropium [place] 0.02 % Solution 01/13/2020 00:00:00 null 1 675 ml 6 00675620 031 P Start 05/03 00:00 :00 Lactulose 10 GM/15ML Solution null null 0 450 5 [id number] 708 Stop 04/02 00:00 :00 Lactulose 10 GM/15ML Solution null null 1 450 5 [id number] 708 Taking 02/26 00:00 :00 Lactulose 10 GM/15ML Solution null null 1 450 5 [id number] 708 Taking 01/19 00:00 :00 Lactulose 10 GM/15ML Solution null null 1 450 5 [id number] 708 Taking 12/07 00:00 :00 Lactulose 10 GM/15ML Solution null null 1 450 5 [id number] 708 Taking 11/04 00:00 :00 Lactulose 10 GM/15ML Solution null null 1 450 5 [id number] 708 Taking 06/16 00:00 :00 Lactulose 10 GM/15ML Solution null null 1 450 5 [id number] 708 Taking 06/09 00:00 :00 Lactulose 10 GM/15ML Solution null null 1 450 5 [id number] 708 Continue 02/19 00:00 :00 Lactulose 10 GM/15ML Solution null null 1 450 [id number] 708 Taking 10/19 00:00 :00 Lantus 100U/ML Solution null 00:00:00 0 Stop 10/19 00:00 :00 Lantus 100U/ML Solution null null 1 P Not Taki ng 09/11 00:00 :00 Lantus 100U/ML Solution null null 1 P Not Taki ng 08/24 00:00 :00 Lantus 100U/ML Solution null null 1 P Not Taki ng 08/10 00:00 :00 Lantus 100U/ML Solution null null 1 P Not Taki ng 07/30 00:00 :00 Lantus 100U/ML Solution null null 1 P Taking 07/24 00:00 :00 Lantus 100U/ML Solution null null 1 P Taking 07/20 00:00 :00 Lantus 100U/ML Solution null null 1 P Taking 07/13 00:00 :00 Lantus 100U/ML Solution null null 1 P Taking 07/06 00:00 :00 Lantus 100U/ML Solution null null 1 P Taking 06/23 00:00 :00 Lantus 100U/ML Solution null null 1 P Taking 06/13 00:00 :00 Lantus 100U/ML Solution null null 1 P Taking 06/06 00:00 :00 Lantus 100U/ML Solution null null 1 P Taking 05/29 00:00 :00 Lantus 100U/ML Solution null null 1 P Taking 05/21 00:00 :00 Lantus 100U/ML Solution null null 1 P Taking 04/16 00:00 :00 Lantus 100U/ML Solution null null 1 P Taking 02/28 00:00 :00 Lantus 100U/ML Solution null null 1 P Taking 01/24 00:00 :00 Lantus 100U/ML Solution null null 0 10 Unspecifi ed 5 [id number] 033 P Unknown Status 01/09 00:00 :00 Lantus 100U/ML Solution null null 0 10 Unspecifi ed 5 [id number] 033 P Unknown Status 12/20 00:00 :00 Lantus 100U/ML Solution null null 0 10 Unspecifi ed 5 [id number] 033 P Unknown Status 11/17 00:00 :00 Lantus 100U/ML Solution null null 0 10 Unspecifi ed 5 [id number] 033 P Unknown Status 11/11 00:00 :00 Lantus 100U/ML Solution null null 0 10 Unspecifi ed 5 [id number] 033 P Unknown Status 08/29 00:00 :00 Lantus 100U/ML Solution null null 0 10 Unspecifi ed 5 [id number] 033 P Unknown Status 06/30 00:00 :00 Lantus 100U/ML Solution null null 0 10 Unspecifi ed 5 [id number] 033 P Unknown Status 06/06 00:00 :00 Lantus 100U/ML Solution null null 0 10 Unspecifi ed 5 [id number] 033 P Unknown Status 02/17 00:00 :00 Lantus 100U/ML Solution null null 1 10 Unspecifi ed 5 [id number] 033 P Taking 02/15 00:00 :00 Lantus 100U/ML Solution null null 1 10 Unspecifi ed 5 [id number] 033 P Taking 01/05 00:00 :00 Lantus 100U/ML Solution null null 1 10 Unspecifi ed 5 [id number] 033 P Taking 12/14 00:00 :00 Lantus 100U/ML Solution null null 1 10 Unspecifi ed 5 95779400 033 P Taking 11/15 00:00 :00 Lantus 100U/ML Solution null null 1 10 Unspecifi ed 5 [id number] 033 P Taking 10/31 00:00 :00 Lantus 100U/ML Solution null null 1 10 Unspecifi ed 5 [id number] 033 P Taking 10/24 00:00 :00 Lantus 100U/ML Solution null null 1 10 Unspecifi ed 5 [id number] 033 P Taking 09/05 00:00 :00 Lantus 100U/ML Solution null null 1 10 Unspecifi ed 5 60549081 033 P Taking 05/12 00:00 :00 Lantus 100U/ML Solution null null 1 10 Unspecifi ed 5 [id number] 033 P Taking 05/02 00:00 :00 Lantus 100U/ML Solution null null 1 10 Unspecifi ed 5 [id number] 033 P Taking 03/03 00:00 :00 Lantus 100U/ML Solution null null 1 10 Unspecifi ed 5 [id number] 033 P Taking 11/17 00:00 :00 Lantus 100U/ML Solution null null 1 10 Unspecifi ed 5 [id number] 033 P Taking 10/13 00:00 :00 Lantus 100U/ML Solution null null 1 10 Unspecifi ed 5 [id number] 033 P Taking 08/11 00:00 :00 Lantus 100U/ML Solution null null 1 10 Unspecifi ed 5 [id number] 033 P Start 08/11 00:00 :00 Lantus 100U/ML Injection null null 1 10 Unspecifi ed 5 [id number] 033 P Taking 06/02 00:00 :00 Lantus 100U/ML Injection null null 1 10 Unspecifi ed 5 [id number] 033 P Taking 05/06 00:00 :00 Lantus 100U/ML Injection null null 1 10 Unspecifi ed 5 [id number] 033 P Taking 03/06 00:00 :00 Lantus 100U/ML Injection null null 1 10 Unspecifi ed 5 [id number] 033 P Taking 01/02 00:00 :00 Lantus 100U/ML Injection null null 1 10 Unspecifi ed 5 [id number] 033 P Taking 10/29 00:00 :00 Lantus 100U/ML Injection null null 1 10 Unspecifi ed 5 [id number] 033 P Taking 09/29 00:00 :00 Lantus 100U/ML Injection null null 1 10 Unspecifi ed 5 [id number] 033 P Taking 07/28 00:00 :00 Lantus 100U/ML Injection null null 1 10 Unspecifi ed 5 51700425 033 P Taking 07/02 00:00 :00 Lantus 100U/ML Injection null null 1 10 Unspecifi ed 5 20371440 033 P Start 06/03 00:00 :[address] Injection null null 1 [address] 11 Taking 04/07 00:00 :[address] Injection null null 1 10 Mill[place] r 11 Taking 02/21 00:00 :[address] Injection null null 1 10 Mill[place] r 11 Taking 02/04 00:00 :[address] Injection null null 1 10 Mill[place] r 11 Taking 01/07 00:00 :[address] Injection null null 1 10 Mill[place] r 11 Taking 11/22 00:00 :[address] Injection null null 1 10 Mill[place] r 11 P Taking 10/30 00:00 :[address] Injection null null 1 10 Millil[place] r 11 P Taking 10/22 00:00 :[address] Injection null null 1 10 Mill[place] r 11 Taking 08/01 00:00 :[address] Injection null null 1 10 Millil[place] r 11 Taking 06/27 00:00 :[address] Injection null null 1 10 Mill[place] r 11 P Taking 06/04 00:00 :[address] Injection null null 1 10 Mill[place] r 11 P Taking 05/03 00:00 :[address] Injection null null 1 10 Millil[place] r 11 Taking 04/30 00:00 :[address] Injection null null 1 10 Millil[place] r 11 P Taking 04/17 00:00 :[address] Injection null null 1 10 Mill[place] r 11 Taking 03/29 00:00 :[address] Injection null null 1 10 Mill[place] r 11 P Start 03/28 00:00 :00 Lantus 100 UNIT/ML Solution 03/05/2013 00:00:00 null 1 [id number] 033 Taking 03/05 00:00 :00 Lantus 100 UNIT/ML Solution 03/05/2013 00:00:00 null 1 [id number] 033 P Start 07/14 00:00 :00 Lantus SoloStar 100 UNIT/ML Solution Pen-injecto r null null 0 15 Mill[place] 0 71518042 905 Stop 07/14 00:00 :00 Lantus SoloStar 100 UNIT/ML Solution Pen-injecto r null null 1 15 Mill[place] 0 [id number] 905 P Refill 07/05 00:00 :00 Lantus SoloStar 100 UNIT/ML Solution Pen-injecto r null null 1 15 Mill[place] 2 46075873 905 Taking 06/22 00:00 :00 Lantus SoloStar 100 UNIT/ML Solution Pen-injecto r null null 1 15 Mill[place] 2 37126016 905 Continue 11/26 00:00 :00 Lantus SoloStar 100 UNIT/ML Solution Pen-injecto r null null 1 15 Mill[place] 2 85196121 905 Taking 10/16 00:00 :00 Lantus SoloStar 100 UNIT/ML Solution Pen-injecto r null null 1 15 Millil[place] r 2 29319790 905 Start 10/16 00:00 :00 Lantus SoloStar 100 UNIT/ML Solution Pen-injecto r null null 0 1 5 02530198 900 Stop 04/02 00:00 :00 Lantus SoloStar 100 UNIT/ML Solution Pen-injecto r null null 1 1 5 [id number] 900 P Taking 02/26 00:00 :00 Lantus SoloStar 100 UNIT/ML Solution Pen-injecto r null null 1 1 5 39440816 900 P Taking 01/19 00:00 :00 Lantus SoloStar 100 UNIT/ML Solution Pen-injecto r null null 1 1 5 16179905 900 P Taking 12/07 00:00 :00 Lantus SoloStar 100 UNIT/ML Solution Pen-injecto r null null 1 1 5 84120016 900 P Taking 11/04 00:00 :00 Lantus SoloStar 100 UNIT/ML Solution Pen-injecto r null null 1 1 5 88117983 900 P Taking 10/06 00:00 :00 Lantus SoloStar 100 UNIT/ML Solution Pen-injecto r null null 1 1 5 97403029 900 P Refill 10/05 00:00 :00 Lantus SoloStar 100 UNIT/ML Solution Pen-injecto r null null 1 1 0 85533498 900 Continue 06/16 00:00 :00 Lantus SoloStar 100 UNIT/ML Solution Pen-injecto r null null 1 94026933 900 Taking 02/19 00:00 :00 Lantus SoloStar 100 UNIT/ML Solution Pen-injecto r null null 1 62944937 900 Taking 12/26 00:00 :00 Lasix 40MG Tablet null null 0 30 Tablet 11 439456 96 610 Discontinu ed 11/05 00:00 :00 Lasix 40MG Tablet null null 1 30 Tablet 11 565854 96 610 Taking 10/19 00:00 :00 Lasix 40MG Tablet null null 1 30 Tablet 11 473737 96 610 Taking 09/11 00:00 :00 Lasix 40MG Tablet null null 1 30 Tablet 11 254502 96 610 Taking 08/28 00:00 :00 Lasix 40MG Tablet null null 1 30 Tablet 11 540112 96 610 Continue 08/24 00:00 :00 Lasix 40MG Tablet null null 1 30 Tablet 11 949695 96 610 P Taking 08/10 00:00 :00 Lasix 40MG Tablet null null 1 30 Tablet 11 428425 96 610 P Taking 07/30 00:00 :00 Lasix 40MG Tablet null null 1 30 Tablet 11 270495 96 610 P Decrease 07/30 00:00 :00 Lasix 40MG Tablet null null 1 60 Tablet 11 935427 96 610 P Taking 07/24 00:00 :00 Lasix 40MG Tablet null null 1 60 Tablet 11 916396 96 610 P Increase 07/24 00:00 :00 Lasix 40MG Tablet null null 1 30 Tablet 11 125877 96 610 P Taking 07/20 00:00 :00 Lasix 40MG Tablet null null 1 30 Tablet 11 431053 96 610 P Taking 07/13 00:00 :00 Lasix 40MG Tablet null null 1 30 Tablet 11 959660 96 610 P Taking 07/06 00:00 :00 Lasix 40MG Tablet null null 1 30 Tablet 11 053740 96 610 P Taking 06/23 00:00 :00 Lasix 40MG Tablet null null 1 30 Tablet 11 670278 96 610 P Taking 06/13 00:00 :00 Lasix 40MG Tablet null null 1 30 Tablet 11 141228 96 610 P Taking 06/06 00:00 :00 Lasix 40MG Tablet null null 1 30 Tablet 11 372809 96 610 P Taking 05/29 00:00 :00 Lasix 40MG Tablet null null 1 30 Tablet 11 403564 96 610 P Taking 05/21 00:00 :00 Lasix 40MG Tablet null null 1 30 Tablet 11 356190 96 610 P Taking 04/16 00:00 :00 Lasix 40MG Tablet null null 1 30 Tablet 11 405008 96 610 P Taking 02/28 00:00 :00 Lasix 40MG Tablet null null 1 30 Tablet 11 201967 96 610 P Taking 01/24 00:00 :00 Lasix 40MG Tablet null null 1 30 Tablet 11 012271 96 610 P Taking 01/09 00:00 :00 Lasix 40MG Tablet null null 1 30 Tablet 11 028599 96 610 P Taking 12/20 00:00 :00 Lasix 40MG Tablet null null 1 30 Tablet 11 758129 96 610 P Taking 11/17 00:00 :00 Lasix 40MG Tablet null null 1 30 Tablet 11 285828 96 610 P Taking 11/11 00:00 :00 Lasix 40MG Tablet null null 1 30 Tablet 11 184744 96 610 P Taking 09/13 00:00 :00 Lasix 40MG Tablet null null 1 30 Tablet 11 830749 96 610 P Start 08/29 00:00 :00 Lasix 40MG Tablet null null 0 30 Tab 5 95170409 610 P Unknown Status 06/30 00:00 :00 Lasix 40MG Tablet null null 0 30 Tab 5 98466252 610 P Unknown Status 06/06 00:00 :00 Lasix 40MG Tablet null null 0 30 Tab 5 72797459 610 P Unknown Status 02/17 00:00 :00 Lasix 40MG Tablet null null 1 30 Tab 5 21536516 610 P Taking 02/15 00:00 :00 Lasix 40MG Tablet null null 1 30 Tab 5 19337582 610 P Taking 02/14 00:00 :00 Lasix 40MG Tablet null null 1 30 Tab 5 [id number] 610 P Start 01/05 00:00 :00 Lasix 40MG Tablet null null 1 30 Tab 5 22196515 013 P Taking 12/14 00:00 :00 Lasix 40MG Tablet null null 1 30 Tab 5 21806412 013 P Taking 11/15 00:00 :00 Lasix 40MG Tablet null null 1 30 Tab 5 10645307 013 P Taking 10/31 00:00 :00 Lasix 40MG Tablet null null 1 30 Tab 5 07353490 013 P Taking 10/24 00:00 :00 Lasix 40MG Tablet null null 1 30 Tab 5 03945931 013 P Taking 09/05 00:00 :00 Lasix 40MG Tablet null null 1 30 Tab 5 95070497 013 P Taking 08/11 00:00 :00 Lasix 40MG Tablet null null 1 30 Tab 5 19409932 013 P Start 08/08 00:00 :00 Lasix 40MG null null 1 30 11 P Start 06/02 00:00 :00 Lasix 40MG Tablet null null 1 30 1 74910584 510 Continue 05/12 00:00 :00 Lasix 40MG Tablet null null 1 76092344 510 P Continue 05/12 00:00 :00 Lasix 40MG Tablet null null 1 30 Tablet 11 566815 62 510 Taking 05/02 00:00 :00 Lasix 40MG Tablet null null 1 30 Tablet 11 474287 62 510 Taking 03/03 00:00 :00 Lasix 40MG Tablet null null 1 30 Tablet 11 924033 62 510 Taking 11/17 00:00 :00 Lasix 40MG Tablet null null 1 30 Tablet 11 228694 62 510 Taking 10/13 00:00 :00 Lasix 40MG Tablet null null 1 30 Tablet 11 493936 62 510 Taking 08/11 00:00 :00 Lasix 40MG Tablet null null 1 30 Tablet 11 595552 62 510 Taking 06/02 00:00 :00 Lasix 40MG Tablet null null 1 30 Tablet 11 888485 62 510 Taking 05/06 00:00 :00 Lasix 40MG Tablet null null 1 30 Tablet 11 488586 62 510 Taking 03/06 00:00 :00 Lasix 40MG Tablet null null 1 30 Tablet 11 916606 62 510 Taking 01/02 00:00 :00 Lasix 40MG Tablet null null 1 30 Tablet 11 425435 62 510 Taking 10/29 00:00 :00 Lasix 40MG Tablet null null 1 30 Tablet 11 993473 62 510 Taking 09/29 00:00 :00 Lasix 40MG Tablet null null 1 30 Tablet 11 314183 62 510 Taking 07/28 00:00 :00 Lasix 40MG Tablet null null 1 30 Tablet 11 454583 62 510 Taking 06/03 00:00 :00 Lasix 40MG Tablet null null 1 30 Tablet 11 182637 62 510 Taking 04/07 00:00 :00 Lasix 40MG Tablet null null 1 30 Tablet 11 156231 62 510 Taking 02/21 00:00 :00 Lasix 40MG Tablet null null 1 30 Tablet 11 323706 62 510 Taking 02/04 00:00 :00 Lasix 40MG Tablet null null 1 30 Tablet 11 472086 62 510 Taking 02/03 00:00 :00 Lasix 40MG Tablet null null 1 30 Tablet 11 396813 62 510 Start 01/07 00:00 :00 Lasix 40 MG Tablet 02/06/2013 00:00:00 null 1 30 5 [id number] 001 Taking 11/22 00:00 :00 Lasix 40 MG Tablet 02/06/2013 00:00:00 null 1 30 5 84127140 001 P Taking 10/30 00:00 :00 Lasix 40 MG Tablet 02/06/2013 00:00:00 null 1 30 5 60223850 001 P Taking 10/22 00:00 :00 Lasix 40 MG Tablet 02/06/2013 00:00:00 null 1 30 5 [id number] 001 Taking 08/01 00:00 :00 Lasix 40 MG Tablet 02/06/2013 00:00:00 null 1 30 5 24173517 001 Taking 06/27 00:00 :00 Lasix 40 MG Tablet 02/06/2013 00:00:00 null 1 30 5 53099875 001 P Taking 06/04 00:00 :00 Lasix 40 MG Tablet 02/06/2013 00:00:00 null 1 30 5 41037208 001 P Taking 05/03 00:00 :00 Lasix 40 MG Tablet 02/06/2013 00:00:00 null 1 30 5 [id number] 001 Taking 04/30 00:00 :00 Lasix 40 MG Tablet 02/06/2013 00:00:00 null 1 30 5 68315068 001 P Taking 04/17 00:00 :00 Lasix 40 MG Tablet 02/06/2013 00:00:00 null 1 30 5 [id number] 001 Taking 03/28 00:00 :00 Lasix 40 MG Tablet 02/06/2013 00:00:00 null 1 30 5 [id number] 001 Taking 03/05 00:00 :00 Lasix 40 MG Tablet 02/06/2013 00:00:00 null 1 30 5 [id number] 001 P Taking 02/06 00:00 :00 Lasix 40 MG Tablet 02/06/2013 00:00:00 null 1 30 5 [id number] 001 P Start 04/02 00:00 :00 levoFLOXaci n 500 MG Tablet 02/26/2021 00:00:00 null 0 5 0 02153833 502 P Discontinu ed 02/26 00:00 :00 levoFLOXaci n 500 MG Tablet 02/26/2021 00:00:00 null 1 5 0 [id number] 502 P Start 01/13 00:00 :00 levoFLOXaci n 250 MG Tablet 11/04/2019 00:00:00 null 1 6 0 64731643 153 P Taking 01/12 00:00 :00 levoFLOXaci n 250 MG Tablet 11/04/2019 00:00:00 null 1 6 0 35810503 153 P Taking 11/27 00:00 :00 levoFLOXaci n 250 MG Tablet 11/04/2019 00:00:00 null 1 6 0 51689330 153 P Taking 11/04 00:00 :00 levoFLOXaci n 250 MG Tablet 11/04/2019 00:00:00 null 1 6 0 [id number] 153 P Start 07/05 00:00 :00 Lidocaine HCl 4 % Cream 04/02/2021 00:00:00 null 1 30 gm 11 47591783 211 P Taking 11/26 00:00 :00 Lidocaine HCl 4 % Cream 04/02/2021 00:00:00 null 1 30 gm 11 66881571 211 P Taking 04/02 00:00 :00 Lidocaine HCl 4 % Cream 04/02/2021 00:00:00 null 1 30 gm 11 51776429 211 P Start 07/05 00:00 :00 Lipitor 20MG tablet null null 1 66959835 954 Taking 11/26 00:00 :00 Lipitor 20MG tablet null null 1 80193755 954 Taking 04/02 00:00 :00 Lipitor 20MG tablet null null 1 65166388 954 Taking 02/26 00:00 :00 Lipitor 20MG tablet null null 1 54601493 954 Taking 01/19 00:00 :00 Lipitor 20MG tablet null null 1 72886593 954 Taking 12/07 00:00 :00 Lipitor 20MG tablet null null 1 93353306 954 Taking 11/04 00:00 :00 Lipitor 20MG tablet null null 1 00382492 954 Taking 06/16 00:00 :00 Lipitor 20MG tablet null null 1 41505913 954 Taking 02/19 00:00 :00 Lipitor 20MG tablet null null 1 08273855 954 Taking 01/13 00:00 :00 Lipitor 20MG tablet null null 1 98764288 954 Taking 01/12 00:00 :00 Lipitor 20MG tablet null null 1 49161691 954 Taking 11/27 00:00 :00 Lipitor 20MG tablet null null 1 61913425 954 Taking 11/04 00:00 :00 Lipitor 20MG tablet null null 1 55301664 954 Taking 06/11 00:00 :00 Lipitor 20MG tablet null null 1 08842659 954 Taking 05/15 00:00 :00 Lipitor 20MG tablet null null 1 56520201 954 Taking 04/24 00:00 :00 Lipitor 20MG tablet null null 1 [id number] 954 Taking 01/18 00:00 :00 Lipitor 20MG tablet null null 1 [id number] 954 Taking 01/09 00:00 :00 Lipitor 20MG tablet null null 1 [id number] 954 Taking 01/02 00:00 :00 Lipitor 20MG tablet null null 1 [id number] 954 Taking 12/26 00:00 :00 Lipitor 20MG tablet null null 1 [id number] 954 Taking 11/05 00:00 :00 Lipitor 20MG tablet null null 1 [id number] 954 Taking 10/19 00:00 :00 Lipitor 20 MG null 9 00:00:00 0 Stop 10/19 00:00 :00 Lipitor 20MG tablet null null 1 [id number] 954 Taking 10/19 00:00 :00 Lipitor 20 MG null null 1 30 0 P Not Taking 09/11 00:00 :00 Lipitor 20MG tablet null null 1 [id number] 954 Taking 09/11 00:00 :00 Lipitor 20 MG null null 1 30 0 P Not Taking 08/24 00:00 :00 Lipitor 20MG tablet null null 1 [id number] 954 Taking 08/24 00:00 :00 Lipitor 20 MG null null 1 30 0 P Not Taking 08/10 00:00 :00 Lipitor 20MG tablet null null 1 [id number] 954 Taking 08/10 00:00 :00 Lipitor 20 MG null null 1 30 0 P Not Taking 07/30 00:00 :00 Lipitor 20MG tablet null null 1 [id number] 954 Continue 07/30 00:00 :00 Lipitor 20MG tablet null null 1 30 Tablet 5 [id number] 954 P Taking 07/30 00:00 :00 Lipitor 20 MG null null 1 30 0 P Not Taking 07/24 00:00 :00 Lipitor 20MG tablet null null 1 30 Tablet 5 [id number] 954 P Taking 07/24 00:00 :00 Lipitor 20 MG null null 1 30 0 P Not Taking 07/20 00:00 :00 Lipitor 20MG tablet null null 1 30 Tablet 5 [id number] 954 P Taking 07/20 00:00 :00 Lipitor 20 MG null null 0 30 0 P Unknown Status 07/13 00:00 :00 Lipitor 20MG tablet null null 1 30 Tablet 5 [id number] 954 P Taking 07/13 00:00 :00 Lipitor 20 MG null null 0 30 0 P Unknown Status 07/06 00:00 :00 Lipitor 20MG tablet null null 1 30 Tablet 5 245716 45 954 P Taking 07/06 00:00 :00 Lipitor 20 MG null null 0 30 0 P Unknown Status 06/23 00:00 :00 Lipitor 20MG tablet null null 1 30 Tablet 5 137700 45 954 P Taking 06/23 00:00 :00 Lipitor 20 MG null null 0 30 0 P Unknown Status 06/13 00:00 :00 Lipitor 20MG tablet null null 1 30 Tablet 5 870886 45 954 P Taking 06/13 00:00 :00 Lipitor 20 MG null null 0 30 0 P Unknown Status 06/06 00:00 :00 Lipitor 20MG tablet null null 1 30 Tablet 5 070217 45 954 P Taking 06/06 00:00 :00 Lipitor 20 MG null null 0 30 0 P Unknown Status 05/29 00:00 :00 Lipitor 20MG tablet null null 1 30 Tablet 5 657881 45 954 P Taking 05/29 00:00 :00 Lipitor 20 MG null null 0 30 0 P Unknown Status 05/21 00:00 :00 Lipitor 20MG tablet null null 1 30 Tablet 5 883931 45 954 P Taking 05/21 00:00 :00 Lipitor 20 MG null null 0 30 0 P Unknown Status 04/16 00:00 :00 Lipitor 20MG tablet null null 1 30 Tablet 5 699550 45 954 P Taking 04/16 00:00 :00 Lipitor 20 MG null null 0 30 0 P Unknown Status 02/28 00:00 :00 Lipitor 20MG tablet null null 1 30 Tablet 5 119720 45 954 P Taking 02/28 00:00 :00 Lipitor 20 MG null null 0 30 0 P Unknown Status 01/24 00:00 :00 Lipitor 20MG tablet null null 1 30 Tablet 5 401231 45 954 P Taking 01/24 00:00 :00 Lipitor 20 MG null null 0 30 0 P Unknown Status 01/09 00:00 :00 Lipitor 20MG tablet null null 1 30 Tablet 5 871159 45 954 P Taking 01/09 00:00 :00 Lipitor 20 MG null null 0 30 0 P Unknown Status 12/20 00:00 :00 Lipitor 20MG tablet null null 1 30 Tablet 5 264738 45 954 P Taking 12/20 00:00 :00 Lipitor 20 MG null null 0 30 0 P Unknown Status 11/17 00:00 :00 Lipitor 20MG tablet null null 1 30 Tablet 5 043917 45 954 P Taking 11/17 00:00 :00 Lipitor 20 MG null null 0 30 0 P Unknown Status 11/11 00:00 :00 Lipitor 20MG tablet null null 1 30 Tablet 5 671264 45 954 P Taking 11/11 00:00 :00 Lipitor 20 MG null null 0 30 0 P Unknown Status 08/29 00:00 :00 Lipitor 20MG tablet null null 1 30 Tablet 5 892137 45 954 P Taking 08/29 00:00 :00 Lipitor 20 MG null null 0 30 0 P Unknown Status 07/10 00:00 :00 Lipitor 20MG tablet null null 1 30 Tablet 5 993128 45 954 P Start 06/30 00:00 :00 Lipitor 20 MG null null 0 30 0 P Unknown Status 06/06 00:00 :00 Lipitor 20 MG null null 0 30 0 P Unknown Status 02/17 00:00 :00 Lipitor 20 MG null null 1 30 0 P Taking 02/15 00:00 :00 Lipitor 20 MG null null 1 30 0 P Taking 01/05 00:00 :00 Lipitor 20 MG null null 1 30 0 P Taking 12/23 00:00 :00 Lipitor 20 MG null null 1 30 0 P Start 12/14 00:00 :00 Lipitor 20 MG Tablet 10/27/2015 00:00:00 null 1 30 Tablet 3 81338088 623 P Taking 11/15 00:00 :00 Lipitor 20 MG Tablet 10/27/2015 00:00:00 null 1 30 Tablet 3 53898677 623 P Taking 10/31 00:00 :00 Lipitor 20 MG Tablet 10/27/2015 00:00:00 null 1 30 Tablet 3 79069743 623 P Taking 10/24 00:00 :00 Lipitor 20 MG Tablet 10/27/2015 00:00:00 null 1 30 Tablet 3 93238457 623 P Taking 09/05 00:00 :00 Lipitor 20 MG Tablet 10/27/2015 00:00:00 null 1 30 Tablet 3 57470935 623 P Taking 05/12 00:00 :00 Lipitor 20 MG Tablet 10/27/2015 00:00:00 null 1 30 Tablet 3 35532704 623 P Taking 05/02 00:00 :00 Lipitor 20 MG Tablet 10/27/2015 00:00:00 null 1 30 Tablet 3 42393645 623 P Taking 03/03 00:00 :00 Lipitor 20 MG Tablet 10/27/2015 00:00:00 null 1 30 Tablet 3 40473656 623 P Taking 11/17 00:00 :00 Lipitor 20 MG Tablet 10/27/2015 00:00:00 null 1 30 Tablet 3 61219210 623 P Taking 10/27 00:00 :00 Lipitor 20 MG Tablet 10/27/2015 00:00:00 null 1 30 Tablet 3 67410603 623 P Start 02/17 00:00 :00 Lisinopril 40MG null null 0 P Stop 02/17 00:00 :00 Lisinopril 40MG null null 1 90 2 P Not Takin g 02/15 00:00 :00 Lisinopril 40MG null null 1 90 2 P Taking 01/05 00:00 :00 Lisinopril 40MG null null 1 90 2 P Taking 12/14 00:00 :00 Lisinopril 40MG null null 1 90 2 P Taking 11/15 00:00 :00 Lisinopril 40MG null null 1 90 2 P Taking 10/31 00:00 :00 Lisinopril 40MG null null 1 90 2 P Taking 10/24 00:00 :00 Lisinopril 40MG null null 1 90 2 P Taking 09/05 00:00 :00 Lisinopril 40MG null null 1 90 2 P Taking 06/14 00:00 :00 Lisinopril 40MG null null 1 90 2 P Start 05/12 00:00 :00 Lisinopril 40MG Tablet null null 1 26553 040 905 P Continue 05/12 00:00 :00 Lisinopril 40MG Tablet null null 1 90 Tab 3 78765 040 905 P Taking 05/02 00:00 :00 Lisinopril 40MG Tablet null null 1 90 Tab 3 59951 040 905 P Taking 03/03 00:00 :00 Lisinopril 40MG Tablet null null 1 90 Tab 3 41950 040 905 P Taking 11/17 00:00 :00 Lisinopril 40MG Tablet null null 1 90 Tab 3 83763 040 905 P Taking 10/13 00:00 :00 Lisinopril 40MG Tablet null null 1 90 Tab 3 60456 040 905 P Taking 08/11 00:00 :00 Lisinopril 40MG Tablet null null 1 90 Tab 3 16143 040 905 P Taking 06/10 00:00 :00 Lisinopril 40MG Tablet null null 1 90 Tab 3 67103 040 905 P Start 06/02 00:00 :00 Lisinopril 40MG Tablet null null 1 90 Not Specified 3 27445364 905 Taking 05/06 00:00 :00 Lisinopril 40MG Tablet null null 1 90 Not Specified 3 08016466 905 Taking 03/06 00:00 :00 Lisinopril 40MG Tablet null null 1 90 Not Specified 3 34833124 905 Taking 01/02 00:00 :00 Lisinopril 40MG Tablet null null 1 90 Not Specified 3 33021480 905 Taking 10/29 00:00 :00 Lisinopril 40MG Tablet null null 1 90 Not Specified 3 66470859 905 Taking 09/29 00:00 :00 Lisinopril 40MG Tablet null null 1 90 Not Specified 3 81524899 905 Taking 07/28 00:00 :00 Lisinopril 40MG Tablet null null 1 90 Not Specified 3 57981542 905 Taking 06/03 00:00 :00 Lisinopril 40MG Tablet null null 1 90 Not Specified 3 87456375 905 Taking 05/26 00:00 :00 Lisinopril 40MG Tablet null null 1 90 Not Specified 3 55408355 905 Start 04/07 00:00 :00 Lisinopril 40MG Tablet null null 1 90 Tablet 1 005 09741 905 P Taking 02/24 00:00 :00 Lisinopril 40MG Tablet null null 1 90 Tablet 1 005 78152 905 P Start 02/24 00:00 :00 Lisinopril 40MG Tablet null null 1 90 Tablet 0 005 61691 905 Start 02/21 00:00 :00 Lisinopril 40 Tablet null null 1 90 2 Taking 02/04 00:00 :00 Lisinopril 40 Tablet null null 1 90 2 Taking 01/07 00:00 :00 Lisinopril 40 Tablet null null 1 90 2 Taking 11/22 00:00 :00 Lisinopril 40 Tablet null null 1 90 2 P Taking 10/30 00:00 :00 Lisinopril 40 Tablet null null 1 90 2 P Taking 10/22 00:00 :00 Lisinopril 40 Tablet null null 1 90 2 Taking 08/01 00:00 :00 Lisinopril 40 Tablet null null 1 90 2 Taking 06/27 00:00 :00 Lisinopril 40 Tablet null null 1 90 2 P Taking 06/04 00:00 :00 Lisinopril 40 Tablet null null 1 90 2 P Taking 05/03 00:00 :00 Lisinopril 40 Tablet null null 1 90 2 Taking 04/30 00:00 :00 Lisinopril 40 Tablet null null 1 90 2 P Taking 04/17 00:00 :00 Lisinopril 40 Tablet null null 1 90 2 Taking 03/28 00:00 :00 Lisinopril 40 Tablet null null 1 90 2 Taking 03/05 00:00 :00 Lisinopril 40 Tablet null null 1 90 2 P Taking 02/06 00:00 :00 Lisinopril 40 Tablet null null 1 90 2 Taking 01/26 00:00 :00 Lisinopril 40 Tablet null null 1 90 2 P Refill 01/15 00:00 :00 Lisinopril 40 MG Tablet null null 1 30 00176 127 001 P Taking 01/11 00:00 :00 Lisinopril 40 MG Tablet null null 1 30 62070 127 001 P Taking 12/26 00:00 :00 Lisinopril 40 MG Tablet null null 1 30 02430 127 001 Taking 12/03 00:00 :00 Lisinopril 40 MG Tablet null null 1 30 50520 127 001 P Taking 11/14 00:00 :00 Lisinopril 40 MG Tablet null null 1 30 17705 127 001 P Taking 10/31 00:00 :00 Lisinopril 40 MG Tablet null null 1 30 02433 127 001 Taking 10/24 00:00 :00 Lisinopril 40 MG Tablet null null 1 30 98256 127 001 Taking 10/23 00:00 :00 Lisinopril 40 MG Tablet null null 1 30 16035 127 001 P Taking 10/18 00:00 :00 Lisinopril 40 MG Tablet null null 1 30 49356 127 001 P Taking 10/15 00:00 :00 Lisinopril 40 MG Tablet null null 1 30 70028 127 001 Taking 07/10 00:00 :00 Lisinopril 40 MG Tablet null null 1 30 58184 127 001 P Taking 10/19 00:00 :00 Losartan Potassium 50 MG Tablet null 00:00:00 0 86662529 854 Stop 10/19 00:00 :00 Losartan Potassium 50 MG Tablet null null 1 30 Unspecifi ed 0 15560300 854 Not Taking 09/11 00:00 :00 Losartan Potassium 50 MG Tablet null null 1 30 Unspecifi ed 0 41011463 854 Not Taking 08/24 00:00 :00 Losartan Potassium 50 MG Tablet null null 1 30 Unspecifi ed 0 26125179 854 Not Taking 08/10 00:00 :00 Losartan Potassium 50 MG Tablet null null 1 30 Unspecifi ed 0 47174890 854 Not Taking 11/17 00:00 :00 Losartan Potassium 25 MG Tablet null 8 00:00:00 0 03089377 322 Stop 11/17 00:00 :00 Losartan Potassium 25 MG Tablet null null 1 30 54012319 322 P Taking 11/11 00:00 :00 Losartan Potassium 25 MG Tablet null null 1 30 86558815 322 P Taking 08/29 00:00 :00 Losartan Potassium 25 MG Tablet null null 1 30 94698322 322 P Taking 06/30 00:00 :00 Losartan Potassium 25 MG Tablet null null 1 30 87468100 322 P Taking 06/06 00:00 :00 Losartan Potassium 25 MG Tablet null null 1 30 51090611 322 P Start 10/19 00:00 :00 Losartan Potassium-H CTZ 50-12.5 MG Tablet null 9 00:00:00 0 48911672 509 Stop 10/19 00:00 :00 Losartan Potassium-H CTZ 50-12.5 MG Tablet null null 0 30 Tablet 10 76649929 509 P Discontinu ed 09/11 00:00 :00 Losartan Potassium-H CTZ 50-12.5 MG Tablet null null 1 30 Tablet 10 71799503 509 P Taking 08/24 00:00 :00 Losartan Potassium-H CTZ 50-12.5 MG Tablet null null 1 30 Tablet 10 61764536 509 P Taking 08/10 00:00 :00 Losartan Potassium-H CTZ 50-12.5 MG Tablet null null 1 30 Tablet 10 89758935 509 P Taking 07/30 00:00 :00 Losartan Potassium-H CTZ 50-12.5 MG Tablet null null 1 30 Tablet 10 28135261 509 P Taking 07/24 00:00 :00 Losartan Potassium-H CTZ 50-12.5 MG Tablet null null 1 30 Tablet 10 56877914 509 P Taking 07/20 00:00 :00 Losartan Potassium-H CTZ 50-12.5 MG Tablet null null 1 30 Tablet 10 64795584 509 P Taking 07/13 00:00 :00 Losartan Potassium-H CTZ 50-12.5 MG Tablet null null 1 30 Tablet 10 15578642 509 P Taking 07/06 00:00 :00 Losartan Potassium-H CTZ 50-12.5 MG Tablet null null 1 30 Tablet 10 87074681 509 P Taking 06/23 00:00 :00 Losartan Potassium-H CTZ 50-12.5 MG Tablet null null 1 30 Tablet 10 57049905 509 P Taking 06/13 00:00 :00 Losartan Potassium-H CTZ 50-12.5 MG Tablet null null 1 30 Tablet 10 48994908 509 P Taking 06/06 00:00 :00 Losartan Potassium-H CTZ 50-12.5 MG Tablet null null 1 30 Tablet 10 69209408 509 P Taking 05/29 00:00 :00 Losartan Potassium-H CTZ 50-12.5 MG Tablet null null 1 30 Tablet 10 02819614 509 P Taking 05/21 00:00 :00 Losartan Potassium-H CTZ 50-12.5 MG Tablet null null 1 30 Tablet 10 98540507 509 P Taking 05/16 00:00 :00 Losartan Potassium-H CTZ 50-12.5 MG Tablet null null 1 30 Tablet 10 47433339 509 P Start 04/16 00:00 :00 Losartan Potassium-H CTZ 50-12.5 MG Tablet null null 1 30 Tablet 0 46627802 509 P Taking 03/01 00:00 :00 Losartan Potassium-H CTZ 50-12.5 MG Tablet null null 1 30 Tablet 0 09093287 509 P Start 02/28 00:00 :00 Losartan Potassium-H CTZ 50-12.5 MG Tablet 11/17/2017 00:00:00 null 1 30 2 [id number] 506 P Taking 01/24 00:00 :00 Losartan Potassium-H CTZ 50-12.5 MG Tablet 11/17/2017 00:00:00 null 1 30 2 [id number] 506 P Taking 01/09 00:00 :00 Losartan Potassium-H CTZ 50-12.5 MG Tablet 11/17/2017 00:00:00 null 1 30 2 [id number] 506 P Taking 12/20 00:00 :00 Losartan Potassium-H CTZ 50-12.5 MG Tablet 11/17/2017 00:00:00 null 1 30 2 [id number] 506 P Taking 11/17 00:00 :00 Losartan Potassium-H CTZ 50-12.5 MG Tablet 11/17/2017 00:00:00 null 1 30 2 [id number] 506 P Start 10/19 00:00 :00 Magnesium Oxide 400 MG Tablet null 00:00:00 0 [id number] 922 Stop 10/19 00:00 :00 Magnesium Oxide 400 MG Tablet null null 1 [id number] 922 Not Taking 09/11 00:00 :00 Magnesium Oxide 400 MG Tablet null null 1 37771252 922 Not Taking 08/24 00:00 :00 Magnesium Oxide 400 MG Tablet null null 1 17357299 922 Not Taking 08/10 00:00 :00 Magnesium Oxide 400 MG Tablet null null 1 [id number] 922 Not Taking 07/30 00:00 :00 Magnesium Oxide 400 MG Tablet null null 1 89429963 922 Not Taking 07/24 00:00 :00 Magnesium Oxide 400 MG Tablet null null 1 40625984 922 Not Taking 07/20 00:00 :00 Magnesium Oxide 400 MG Tablet null null 0 13501840 922 Unknown Status 07/13 00:00 :00 Magnesium Oxide 400 MG Tablet null null 0 56611876 922 Unknown Status 07/06 00:00 :00 Magnesium Oxide 400 MG Tablet null null 0 78245039 922 Unknown Status 06/23 00:00 :00 Magnesium Oxide 400 MG Tablet null null 0 [id number] 922 Unknown Status 06/13 00:00 :00 Magnesium Oxide 400 MG Tablet null null 0 47372819 922 Unknown Status 06/06 00:00 :00 Magnesium Oxide 400 MG Tablet null null 0 [id number] 922 Unknown Status 05/29 00:00 :00 Magnesium Oxide 400 MG Tablet null null 0 [id number] 922 Unknown Status 05/21 00:00 :00 Magnesium Oxide 400 MG Tablet null null 0 [id number] 922 Unknown Status 04/16 00:00 :00 Magnesium Oxide 400 MG Tablet null null 0 [id number] 922 Unknown Status 02/28 00:00 :00 Magnesium Oxide 400 MG Tablet null null 0 [id number] 922 Unknown Status 01/24 00:00 :00 Magnesium Oxide 400 MG Tablet null null 0 97209992 922 Unknown Status 01/09 00:00 :00 Magnesium Oxide 400 MG Tablet null null 0 [id number] 922 Unknown Status 12/20 00:00 :00 Magnesium Oxide 400 MG Tablet null null 0 [id number] 922 Unknown Status 11/17 00:00 :00 Magnesium Oxide 400 MG Tablet null null 0 51889851 922 Unknown Status 11/11 00:00 :00 Magnesium Oxide 400 MG Tablet null null 0 [id number] 922 Unknown Status 08/29 00:00 :00 Magnesium Oxide 400 MG Tablet null null 0 [id number] 922 Unknown Status 06/30 00:00 :00 Magnesium Oxide 400 MG Tablet null null 0 51635027 922 Unknown Status 06/06 00:00 :00 Magnesium Oxide 400 MG Tablet null null 0 [id number] 922 Unknown Status 02/17 00:00 :00 Magnesium Oxide 400 MG Tablet null null 1 [id number] 922 Taking 02/15 00:00 :00 Magnesium Oxide 400 MG Tablet null null 1 68884077 922 Taking 01/05 00:00 :00 Magnesium Oxide 400 MG Tablet null null 1 [id number] 922 Taking 12/14 00:00 :00 Magnesium Oxide 400 MG Tablet null null 1 [id number] 922 Taking 11/15 00:00 :00 Magnesium Oxide 400 MG Tablet null null 1 [id number] 922 Taking 10/31 00:00 :00 Magnesium Oxide 400 MG Tablet null null 1 72717437 922 Taking 10/24 00:00 :00 Magnesium Oxide 400 MG Tablet null null 1 [id number] 922 Taking 09/05 00:00 :00 Magnesium Oxide 400 MG Tablet null null 1 [id number] 922 Taking 05/12 00:00 :00 Magnesium Oxide 400 MG Tablet null null 1 [id number] 922 Taking 05/02 00:00 :00 Magnesium Oxide 400 MG Tablet null null 1 [id number] 922 Taking 03/03 00:00 :00 Magnesium Oxide 400 MG Tablet null null 1 00828640 922 Taking 11/17 00:00 :00 Magnesium Oxide 400 MG Tablet null null 1 [id number] 922 Taking 10/13 00:00 :00 Magnesium Oxide 400 MG Tablet null null 1 [id number] 922 Taking 08/11 00:00 :00 Magnesium Oxide 400 MG Tablet null null 1 [id number] 922 Taking 06/02 00:00 :00 Magnesium Oxide 400 MG Tablet null null 1 [id number] 922 Taking 05/06 00:00 :00 Magnesium Oxide 400 MG Tablet null null 1 [id number] 922 Taking 03/06 00:00 :00 Magnesium Oxide 400 MG Tablet null null 1 [id number] 922 Taking 01/02 00:00 :00 Magnesium Oxide 400 MG Tablet null null 1 [id number] 922 Taking 10/29 00:00 :00 Magnesium Oxide 400 MG Tablet null null 1 [id number] 922 Taking 09/29 00:00 :00 Magnesium Oxide 400 MG Tablet null null 1 [id number] 922 Taking 07/28 00:00 :00 Magnesium Oxide 400 MG Tablet null null 1 [id number] 922 Taking 04/02 00:00 :00 Metoclopram susan HCl 5 MG Tablet 11/04/2020 00:00:00 null 0 30 Tablet 2 [id number] 401 P Discontinu ed 02/26 00:00 :00 Metoclopram susan HCl 5 MG Tablet 11/04/2020 00:00:00 null 1 30 Tablet 2 [id number] 401 P Not Taking 01/19 00:00 :00 Metoclopram susan HCl 5 MG Tablet 11/04/2020 00:00:00 null 1 30 Tablet 2 [id number] 401 P Taking 12/07 00:00 :00 Metoclopram susan HCl 5 MG Tablet 11/04/2020 00:00:00 null 1 30 Tablet 2 [id number] 401 P Taking 11/04 00:00 :00 Metoclopram susan HCl 5 MG Tablet 11/04/2020 00:00:00 null 1 30 Tablet 2 [id number] 401 P Start 07/05 00:00 :00 metroNIDAZO LE 500 MG Tablet 11/26/2021 00:00:00 null 1 30 0 [id number] 614 P Taking 11/26 00:00 :00 metroNIDAZO LE 500 MG Tablet 11/26/2021 00:00:00 null 1 30 0 [id number] 614 P Start 03/05 00:00 :00 Neurontin 300 MG Capsule 01/11/2013 00:00:00 00:00:00 0 [id number] 524 Stop 03/05 00:00 :00 Neurontin 300 MG Capsule 01/11/2013 00:00:00 null 1 60 0 [id number] 524 P Taking 02/06 00:00 :00 Neurontin 300 MG Capsule 01/11/2013 00:00:00 null 1 60 0 [id number] 524 Taking 01/15 00:00 :00 Neurontin 300 MG Capsule 01/11/2013 00:00:00 null 1 60 0 [id number] 524 P Taking 01/11 00:00 :00 Neurontin 300 MG Capsule 01/11/2013 00:00:00 null 1 60 0 [id number] 524 Start 02/15 00:00 :00 Norvasc 10 MG Tablet 02/19/2017 00:00:00 null 1 30 [id number] 041 P Start 07/05 00:00 :00 NovoLOG FlexPen 100 UNIT/ML Solution Pen-injecto r null null 1 3 3 [id number] 910 Taking 11/26 00:00 :00 NovoLOG FlexPen 100 UNIT/ML Solution Pen-injecto r null null 1 3 3 [id number] 910 Taking 04/02 00:00 :00 NovoLOG FlexPen 100 UNIT/ML Solution Pen-injecto r null null 1 3 3 [id number] 910 Taking 02/26 00:00 :00 NovoLOG FlexPen 100 UNIT/ML Solution Pen-injecto r null null 1 3 3 [id number] 910 Taking 01/19 00:00 :00 NovoLOG FlexPen 100 UNIT/ML Solution Pen-injecto r null null 1 3 3 [id number] 910 Taking 12/07 00:00 :00 NovoLOG FlexPen 100 UNIT/ML Solution Pen-injecto r null null 1 3 3 [id number] 910 Taking 11/04 00:00 :00 NovoLOG FlexPen 100 UNIT/ML Solution Pen-injecto r null null 1 3 3 [id number] 910 Continue 11/04 00:00 :00 NovoLOG FlexPen 100 UNIT/ML Solution Pen-injecto r null null 1 [id number] 910 Taking 01/18 00:00 :00 NovoLOG FlexPen 100 UNIT/ML Solution Pen-injecto r 02/15/2017 00:00:00 9 00:00:00 0 [id number] 910 Stop 01/18 00:00 :00 NovoLOG FlexPen 100 UNIT/ML Solution Pen-injecto r 02/15/2017 00:00:00 null 1 [id number] 910 P Not Taking 01/09 00:00 :00 NovoLOG FlexPen 100 UNIT/ML Solution Pen-injecto r 02/15/2017 00:00:00 null 1 [id number] 910 P Not Taking 01/02 00:00 :00 NovoLOG FlexPen 100 UNIT/ML Solution Pen-injecto r 02/15/2017 00:00:00 null 1 [id number] 910 P Not Taking 12/26 00:00 :00 NovoLOG FlexPen 100 UNIT/ML Solution Pen-injecto r 02/15/2017 00:00:00 null 1 [id number] 910 P Not Taking 11/05 00:00 :00 NovoLOG FlexPen 100 UNIT/ML Solution Pen-injecto r 02/15/2017 00:00:00 null 1 [id number] 910 P Not Taking 10/19 00:00 :00 NovoLOG FlexPen 100U/ML Solution Pen-injecto r null 9 00:00:00 0 [id number] 910 Stop 10/19 00:00 :00 NovoLOG FlexPen 100 UNIT/ML Solution Pen-injecto r 02/15/2017 00:00:00 null 1 [id number] 910 P Not Taking 10/19 00:00 :00 NovoLOG FlexPen 100U/ML Solution Pen-injecto r null null 1 15 Unspecifi ed 11 74160915 910 Not Taking 09/11 00:00 :00 NovoLOG FlexPen 100 UNIT/ML Solution Pen-injecto r 02/15/2017 00:00:00 null 1 [id number] 910 P Not Taking 09/11 00:00 :00 NovoLOG FlexPen 100U/ML Solution Pen-injecto r null null 1 15 Unspecifi ed 11 [id number] 910 Not Taking 08/24 00:00 :00 NovoLOG FlexPen 100 UNIT/ML Solution Pen-injecto r 02/15/2017 00:00:00 null 1 [id number] 910 P Not Taking 08/24 00:00 :00 NovoLOG FlexPen 100U/ML Solution Pen-injecto r null null 1 15 Unspecifi ed 11 [id number] 910 Not Taking 08/10 00:00 :00 NovoLOG FlexPen 100 UNIT/ML Solution Pen-injecto r 02/15/2017 00:00:00 null 1 [id number] 910 P Not Taking 08/10 00:00 :00 NovoLOG FlexPen 100U/ML Solution Pen-injecto r null null 1 15 Unspecifi ed 11 [id number] 910 Not Taking 07/30 00:00 :00 NovoLOG FlexPen 100 UNIT/ML Solution Pen-injecto r 02/15/2017 00:00:00 null 1 [id number] 910 P Taking 07/30 00:00 :00 NovoLOG FlexPen 100U/ML Solution Pen-injecto r null null 1 15 Unspecifi ed 11 [id number] 910 Taking 07/24 00:00 :00 NovoLOG FlexPen 100 UNIT/ML Solution Pen-injecto r 02/15/2017 00:00:00 null 1 [id number] 910 P Taking 07/24 00:00 :00 NovoLOG FlexPen 100U/ML Solution Pen-injecto r null null 1 15 Unspecifi ed 11 [id number] 910 Taking 07/20 00:00 :00 NovoLOG FlexPen 100 UNIT/ML Solution Pen-injecto r 02/15/2017 00:00:00 null 1 [id number] 910 P Taking 07/20 00:00 :00 NovoLOG FlexPen 100U/ML Solution Pen-injecto r null null 1 15 Unspecifi ed 11 [id number] 910 Taking 07/18 00:00 :00 NovoLOG FlexPen 100U/ML Solution Pen-injecto r null null 1 15 Unspecifi ed 11 [id number] 910 Refill 07/13 00:00 :00 NovoLOG FlexPen 100 UNIT/ML Solution Pen-injecto r 02/15/2017 00:00:00 null 1 [id number] 910 P Taking 07/13 00:00 :00 NovoLOG FlexPen 100U/ML Solution Pen-injecto r null null 1 15 Unspecifi ed 0 [id number] 910 P Taking 07/06 00:00 :00 NovoLOG FlexPen 100 UNIT/ML Solution Pen-injecto r 02/15/2017 00:00:00 null 1 [id number] 910 P Taking 07/06 00:00 :00 NovoLOG FlexPen 100U/ML Solution Pen-injecto r null null 1 15 Unspecifi ed 0 97363589 910 P Taking 06/23 00:00 :00 NovoLOG FlexPen 100 UNIT/ML Solution Pen-injecto r 02/15/2017 00:00:00 null 1 [id number] 910 P Taking 06/23 00:00 :00 NovoLOG FlexPen 100U/ML Solution Pen-injecto r null null 1 15 Unspecifi ed 0 [id number] 910 P Taking 06/13 00:00 :00 NovoLOG FlexPen 100 UNIT/ML Solution Pen-injecto r 02/15/2017 00:00:00 null 1 [id number] 910 P Taking 06/13 00:00 :00 NovoLOG FlexPen 100U/ML Solution Pen-injecto r null null 1 15 Unspecifi ed 0 [id number] 910 P Taking 06/06 00:00 :00 NovoLOG FlexPen 100 UNIT/ML Solution Pen-injecto r 02/15/2017 00:00:00 null 1 [id number] 910 P Taking 06/06 00:00 :00 NovoLOG FlexPen 100U/ML Solution Pen-injecto r null null 1 15 Unspecifi ed 0 [id number] 910 P Taking 05/29 00:00 :00 NovoLOG FlexPen 100 UNIT/ML Solution Pen-injecto r 02/15/2017 00:00:00 null 1 [id number] 910 P Taking 05/29 00:00 :00 NovoLOG FlexPen 100U/ML Solution Pen-injecto r null null 1 15 Unspecifi ed 0 [id number] 910 P Taking 05/21 00:00 :00 NovoLOG FlexPen 100 UNIT/ML Solution Pen-injecto r 02/15/2017 00:00:00 null 1 [id number] 910 P Taking 05/21 00:00 :00 NovoLOG FlexPen 100U/ML Solution Pen-injecto r null null 1 15 Unspecifi ed 0 [id number] 910 P Taking 04/16 00:00 :00 NovoLOG FlexPen 100 UNIT/ML Solution Pen-injecto r 02/15/2017 00:00:00 null 1 [id number] 910 P Taking 04/16 00:00 :00 NovoLOG FlexPen 100U/ML Solution Pen-injecto r null null 1 15 Unspecifi ed 0 [id number] 910 P Taking 04/10 00:00 :00 NovoLOG FlexPen 100U/ML Solution Pen-injecto r null null 1 15 Unspecifi ed 0 [id number] 910 P Start 02/28 00:00 :00 NovoLOG FlexPen 100 UNIT/ML Solution Pen-injecto r 02/15/2017 00:00:00 null 1 [id number] 910 P Taking 01/24 00:00 :00 NovoLOG FlexPen 100 UNIT/ML Solution Pen-injecto r 02/15/2017 00:00:00 null 0 1 5 [id number] 910 P Unknown Status 01/09 00:00 :00 NovoLOG FlexPen 100 UNIT/ML Solution Pen-injecto r 02/15/2017 00:00:00 null 0 1 5 [id number] 910 P Unknown Status 12/20 00:00 :00 NovoLOG FlexPen 100 UNIT/ML Solution Pen-injecto r 02/15/2017 00:00:00 null 0 1 5 [id number] 910 P Unknown Status 11/17 00:00 :00 NovoLOG FlexPen 100 UNIT/ML Solution Pen-injecto r 02/15/2017 00:00:00 null 0 1 5 [id number] 910 P Unknown Status 11/11 00:00 :00 NovoLOG FlexPen 100 UNIT/ML Solution Pen-injecto r 02/15/2017 00:00:00 null 0 1 5 [id number] 910 P Unknown Status 08/29 00:00 :00 NovoLOG FlexPen 100 UNIT/ML Solution Pen-injecto r 02/15/2017 00:00:00 null 0 1 5 [id number] 910 P Unknown Status 06/30 00:00 :00 NovoLOG FlexPen 100 UNIT/ML Solution Pen-injecto r 02/15/2017 00:00:00 null 0 1 5 [id number] 910 P Unknown Status 06/06 00:00 :00 NovoLOG FlexPen 100 UNIT/ML Solution Pen-injecto r 02/15/2017 00:00:00 null 0 1 5 [id number] 910 P Unknown Status 02/17 00:00 :00 NovoLOG FlexPen 100 UNIT/ML Solution Pen-injecto r 02/15/2017 00:00:00 null 1 1 5 [id number] 910 P Taking 02/15 00:00 :00 NovoLOG FlexPen 100 UNIT/ML Solution Pen-injecto r 02/15/2017 00:00:00 null 1 1 5 [id number] 910 P Start 07/05 00:00 :00 Ondansetron HCl 4 MG Tablet 02/20/2020 00:00:00 null 1 30 0 [id number] 202 Taking 11/26 00:00 :00 Ondansetron HCl 4 MG Tablet 02/20/2020 00:00:00 null 1 30 0 [id number] 202 Taking 04/02 00:00 :00 Ondansetron HCl 4 MG Tablet 02/20/2020 00:00:00 null 1 30 0 [id number] 202 Taking 02/26 00:00 :00 Ondansetron HCl 4 MG Tablet 02/20/2020 00:00:00 null 1 30 0 [id number] 202 Taking 01/19 00:00 :00 Ondansetron HCl 4 MG Tablet 02/20/2020 00:00:00 null 1 30 0 [id number] 202 Taking 12/07 00:00 :00 Ondansetron HCl 4 MG Tablet 02/20/2020 00:00:00 null 1 30 0 [id number] 202 Taking 11/04 00:00 :00 Ondansetron HCl 4 MG Tablet 02/20/2020 00:00:00 null 1 30 0 [id number] 202 Taking 06/16 00:00 :00 Ondansetron HCl 4 MG Tablet 02/20/2020 00:00:00 null 1 30 0 [id number] 202 Taking 03/06 00:00 :00 Ondansetron HCl 4 MG Tablet 02/20/2020 00:00:00 null 1 30 0 [id number] 202 Continue 02/19 00:00 :00 Ondansetron HCl 4 MG Tablet 02/20/2020 00:00:00 null 1 30 0 [id number] 202 P Start 07/05 00:00 :00 Pantoprazol e Sodium 40 MG Tablet Delayed Release null null 1 30 Tablet 0 [id number] 120 P Taking 11/26 00:00 :00 Pantoprazol e Sodium 40 MG Tablet Delayed Release null null 1 30 Tablet 0 [id number] 120 P Taking 04/02 00:00 :00 Pantoprazol e Sodium 40 MG Tablet Delayed Release null null 1 30 Tablet 0 [id number] 120 P Taking 02/26 00:00 :00 Pantoprazol e Sodium 40 MG Tablet Delayed Release null null 1 30 Tablet 0 [id number] 120 P Taking 01/19 00:00 :00 Pantoprazol e Sodium 40 MG Tablet Delayed Release null null 1 30 Tablet 0 [id number] 120 P Taking 12/07 00:00 :00 Pantoprazol e Sodium 40 MG Tablet Delayed Release null null 1 30 Tablet 0 [id number] 120 P Taking 11/04 00:00 :00 Pantoprazol e Sodium 40 MG Tablet Delayed Release null null 1 30 Tablet 0 [id number] 120 P Taking 06/16 00:00 :00 Pantoprazol e Sodium 40 MG Tablet Delayed Release null null 1 30 Tablet 0 [id number] 120 P Taking 02/19 00:00 :00 Pantoprazol e Sodium 40 MG Tablet Delayed Release null null 1 30 Tablet 0 [id number] 120 P Refill 02/19 00:00 :00 Pantoprazol e Sodium 40 MG Tablet Delayed Release null null 1 30 11 [id number] 120 P Taking 01/13 00:00 :00 Pantoprazol e Sodium 40 MG Tablet Delayed Release null null 1 30 11 [id number] 120 P Taking 01/12 00:00 :00 Pantoprazol e Sodium 40 MG Tablet Delayed Release null null 1 30 11 [id number] 120 P Taking 11/27 00:00 :00 Pantoprazol e Sodium 40 MG Tablet Delayed Release null null 1 30 11 [id number] 120 P Taking 11/04 00:00 :00 Pantoprazol e Sodium 40 MG Tablet Delayed Release null null 1 30 11 [id number] 120 P Taking 06/11 00:00 :00 Pantoprazol e Sodium 40 MG Tablet Delayed Release null null 1 30 11 [id number] 120 P Taking 05/15 00:00 :00 Pantoprazol e Sodium 40 MG Tablet Delayed Release null null 1 30 11 [id number] 120 P Taking 04/24 00:00 :00 Pantoprazol e Sodium 40 MG Tablet Delayed Release null null 1 30 11 [id number] 120 P Taking 01/18 00:00 :00 Pantoprazol e Sodium 40 MG Tablet Delayed Release null null 1 30 11 [id number] 120 P Refill 01/18 00:00 :00 Pantoprazol e Sodium 40 MG Tablet Delayed Release null null 1 [id number] 120 Taking 06/30 00:00 :00 Potassium Chloride 20 MEQ/15M L (10%) Liquid null null 1 450 12 [id number] 016 Taking 06/12 00:00 :00 Potassium Chloride 20 MEQ/15M L (10%) Liquid null null 1 450 12 [id number] 016 Continue 06/12 00:00 :00 Potassium Chloride 20 MEQ/15M L (10%) Liquid null null 1 450 12 [id number] 016 Continue 06/09 00:00 :00 Potassium Chloride 20 MEQ/15M L (10%) Liquid null null 1 450 12 [id number] 016 Continue 06/06 00:00 :00 Potassium Chloride 20 MEQ/15M L (10%) Liquid null 00:00:00 0 [id number] 016 Stop 06/06 00:00 :00 Potassium Chloride 20 MEQ/15M L (10%) Liquid null null 1 [id number] 016 Not Taking 02/17 00:00 :00 Potassium Chloride 20 MEQ/15M L (10%) Liquid null null 1 [id number] 016 Taking 02/15 00:00 :00 Potassium Chloride 20 MEQ/15M L (10%) Liquid null null 1 [id number] 016 Taking 01/05 00:00 :00 Potassium Chloride 20 MEQ/15M L (10%) Liquid null null 1 [id number] 016 Taking 12/14 00:00 :00 Potassium Chloride 20 MEQ/15M L (10%) Liquid null null 1 [id number] 016 Taking 11/15 00:00 :00 Potassium Chloride 20 MEQ/15M L (10%) Liquid null null 1 [id number] 016 Taking 10/31 00:00 :00 Potassium Chloride 20 MEQ/15M L (10%) Liquid null null 1 [id number] 016 Taking 10/24 00:00 :00 Potassium Chloride 20 MEQ/15M L (10%) Liquid null null 1 [id number] 016 Taking 09/05 00:00 :00 Potassium Chloride 20 MEQ/15M L (10%) Liquid null null 1 [id number] 016 Taking 05/12 00:00 :00 Potassium Chloride 20 MEQ/15M L (10%) Liquid null null 1 [id number] 016 Taking 05/02 00:00 :00 Potassium Chloride 20 MEQ/15M L (10%) Liquid null null 1 [id number] 016 Taking 03/03 00:00 :00 Potassium Chloride 20 MEQ/15M L (10%) Liquid null null 1 [id number] 016 Taking 11/17 00:00 :00 Potassium Chloride 20 MEQ/15M L (10%) Liquid null null 1 [id number] 016 Taking 10/13 00:00 :00 Potassium Chloride 20 MEQ/15M L (10%) Liquid null null 1 [id number] 016 Taking 08/11 00:00 :00 Potassium Chloride 20 MEQ/15M L (10%) Liquid null null 1 [id number] 016 Taking 06/02 00:00 :00 Potassium Chloride 20 MEQ/15M L (10%) Liquid null null 1 [id number] 016 Taking 05/06 00:00 :00 Potassium Chloride 20 MEQ/15M L (10%) Liquid null null 1 [id number] 016 Taking 03/06 00:00 :00 Potassium Chloride 20 MEQ/15M L (10%) Liquid null null 1 [id number] 016 Taking 01/02 00:00 :00 Potassium Chloride 20 MEQ/15M L (10%) Liquid null null 1 [id number] 016 Taking 10/29 00:00 :00 Potassium Chloride 20 MEQ/15M L (10%) Liquid null null 1 [id number] 016 Taking 09/29 00:00 :00 Potassium Chloride 20 MEQ/15M L (10%) Liquid null null 1 [id number] 016 Taking 07/28 00:00 :00 Potassium Chloride 20 MEQ/15M L (10%) Liquid null null 1 [id number] 016 Taking 10/19 00:00 :00 Potassium Chloride ER 20 MEQ null 00:00:00 0 Stop 10/19 00:00 :00 Potassium Chloride ER 20 MEQ Tablet Extended Release 06/13/2017 00:00:00 null 0 60 Tablet 12 [id number] 801 P Discontinu ed 10/19 00:00 :00 Potassium Chloride ER 20 MEQ null null 0 60 11 P Disco ntinu ed 09/11 00:00 :00 Potassium Chloride ER 20 MEQ Tablet Extended Release 06/13/2017 00:00:00 null 1 60 Tablet 12 [id number] 801 P Taking 09/11 00:00 :00 Potassium Chloride ER 20 MEQ null null 1 60 11 P Takin g 08/24 00:00 :00 Potassium Chloride ER 20 MEQ Tablet Extended Release 06/13/2017 00:00:00 null 1 60 Tablet 12 [id number] 801 P Taking 08/24 00:00 :00 Potassium Chloride ER 20 MEQ null null 1 60 11 P Takin g 08/10 00:00 :00 Potassium Chloride ER 20 MEQ Tablet Extended Release 06/13/2017 00:00:00 null 1 60 Tablet 12 [id number] 801 P Taking 08/10 00:00 :00 Potassium Chloride ER 20 MEQ null null 1 60 11 P Takin g 07/30 00:00 :00 Potassium Chloride ER 20 MEQ Tablet Extended Release 06/13/2017 00:00:00 null 1 60 Tablet 12 [id number] 801 P Taking 07/30 00:00 :00 Potassium Chloride ER 20 MEQ null null 1 60 11 P Takin g 07/24 00:00 :00 Potassium Chloride ER 20 MEQ null null 1 60 11 P Incre ase 07/24 00:00 :00 Potassium Chloride ER 20 MEQ Tablet Extended Release 06/13/2017 00:00:00 null 1 60 Tablet 12 [id number] 801 P Taking 07/24 00:00 :00 Potassium Chloride ER 20 MEQ null null 1 60 11 P Takin g 07/20 00:00 :00 Potassium Chloride ER 20 MEQ Tablet Extended Release 06/13/2017 00:00:00 null 1 60 Tablet 12 [id number] 801 P Taking 07/20 00:00 :00 Potassium Chloride ER 20 MEQ null null 1 60 11 P Takin g 07/13 00:00 :00 Potassium Chloride ER 20 MEQ Tablet Extended Release 06/13/2017 00:00:00 null 1 60 Tablet 12 [id number] 801 P Taking 07/13 00:00 :00 Potassium Chloride ER 20 MEQ null null 1 60 11 P Takin g 07/06 00:00 :00 Potassium Chloride ER 20 MEQ Tablet Extended Release 06/13/2017 00:00:00 null 1 60 Tablet 12 [id number] 801 P Taking 07/06 00:00 :00 Potassium Chloride ER 20 MEQ null null 1 60 11 P Takin g 06/23 00:00 :00 Potassium Chloride ER 20 MEQ Tablet Extended Release 06/13/2017 00:00:00 null 1 60 Tablet 12 [id number] 801 P Taking 06/23 00:00 :00 Potassium Chloride ER 20 MEQ null null 1 60 11 P Takin g 06/14 00:00 :00 Potassium Chloride ER 20 MEQ null null 1 60 11 P Start 06/13 00:00 :00 Potassium Chloride ER 20 MEQ Tablet Extended Release 06/13/2017 00:00:00 null 1 60 Tablet 12 [id number] 801 P Taking 06/06 00:00 :00 Potassium Chloride ER 20 MEQ Tablet Extended Release 06/13/2017 00:00:00 null 1 60 Tablet 12 [id number] 801 P Taking 05/29 00:00 :00 Potassium Chloride ER 20 MEQ Tablet Extended Release 06/13/2017 00:00:00 null 1 60 Tablet 12 [id number] 801 P Taking 05/21 00:00 :00 Potassium Chloride ER 20 MEQ Tablet Extended Release 06/13/2017 00:00:00 null 1 60 Tablet 12 [id number] 801 P Taking 04/16 00:00 :00 Potassium Chloride ER 20 MEQ Tablet Extended Release 06/13/2017 00:00:00 null 1 60 Tablet 12 [id number] 801 P Taking 02/28 00:00 :00 Potassium Chloride ER 20 MEQ Tablet Extended Release 06/13/2017 00:00:00 null 1 60 Tablet 12 [id number] 801 P Taking 01/24 00:00 :00 Potassium Chloride ER 20 MEQ Tablet Extended Release 06/13/2017 00:00:00 null 1 60 Tablet 12 [id number] 801 P Taking 01/09 00:00 :00 Potassium Chloride ER 20 MEQ Tablet Extended Release 06/13/2017 00:00:00 null 1 60 Tablet 12 [id number] 801 P Taking 12/20 00:00 :00 Potassium Chloride ER 20 MEQ Tablet Extended Release 06/13/2017 00:00:00 null 1 60 Tablet 12 [id number] 801 P Taking 11/17 00:00 :00 Potassium Chloride ER 20 MEQ Tablet Extended Release 06/13/2017 00:00:00 null 1 60 Tablet 12 [id number] 801 P Taking 11/11 00:00 :00 Potassium Chloride ER 20 MEQ Tablet Extended Release 06/13/2017 00:00:00 null 1 60 Tablet 12 [id number] 801 P Taking 08/29 00:00 :00 Potassium Chloride ER 20 MEQ Tablet Extended Release 06/13/2017 00:00:00 null 1 60 Tablet 12 [id number] 801 P Taking 06/30 00:00 :00 Potassium Chloride ER 20 MEQ Tablet Extended Release 06/13/2017 00:00:00 null 1 60 Tablet 12 [id number] 801 P Taking 06/30 00:00 :00 Potassium Chloride ER 20 MEQ Tablet Extended Release 06/15/2017 00:00:00 null 1 [id number] 801 P Taking 06/30 00:00 :00 Potassium Chloride ER 20 MEQ Tablet Extended Release null null 1 [id number] 801 Taking 06/13 00:00 :00 Potassium Chloride ER 20 MEQ Tablet Extended Release 06/13/2017 00:00:00 null 1 60 Tablet 12 [id number] 801 P Start 06/06 00:00 :00 Potassium Chloride ER 20 MEQ Tablet Extended Release 06/15/2017 00:00:00 null 1 [id number] 801 P Start 06/06 00:00 :00 Potassium Chloride ER 20 MEQ Tablet Extended Release null null 1 [id number] 801 Taking 07/05 00:00 :00 predniSONE 10 MG Tablet null null 1 30 29965 001 720 Taking 11/26 00:00 :00 predniSONE 10 MG Tablet null null 1 30 95256 001 720 Taking 04/02 00:00 :00 predniSONE 10 MG Tablet null null 1 30 13745 001 720 Taking 02/26 00:00 :00 predniSONE 10 MG Tablet null null 1 30 29445 001 720 Taking 02/26 00:00 :00 predniSONE 20 MG Tablet null null 0 26297 001 820 Discontinu ed 01/19 00:00 :00 predniSONE 20 MG Tablet null null 1 86944 001 820 Taking 12/07 00:00 :00 predniSONE 20 MG Tablet null null 1 36235 001 820 Taking 05/12 00:00 :00 predniSONE 20 MG Tablet null null 0 7 0 64568 001 820 P Discontinu ed 05/02 00:00 :00 predniSONE 20 MG Tablet null null 1 7 0 40501 001 820 P Not Taking 03/03 00:00 :00 predniSONE 20 MG Tablet null null 1 7 0 46871 001 820 P Taking 11/17 00:00 :00 predniSONE 20 MG Tablet null null 1 7 0 53213 001 820 P Taking 10/13 00:00 :00 predniSONE 20 MG Tablet null null 1 7 0 73559 001 820 P Taking 08/11 00:00 :00 predniSONE 20 MG Tablet null null 1 7 0 72878 001 820 P Taking 06/02 00:00 :00 predniSONE 20 MG Tablet null null 1 7 0 01868 001 820 P Taking 05/06 00:00 :00 predniSONE 20 MG Tablet null null 1 7 0 28966 001 820 P Taking 03/06 00:00 :00 predniSONE 20 MG Tablet null null 1 7 0 74236 001 820 P Taking 01/02 00:00 :00 predniSONE 20 MG Tablet null null 1 7 0 18109 001 820 P Taking 10/29 00:00 :00 predniSONE 20 MG Tablet null null 1 7 0 17774 001 820 P Taking 09/29 00:00 :00 predniSONE 20 MG Tablet null null 1 7 0 02462 001 820 P Taking 07/28 00:00 :00 predniSONE 20 MG Tablet null null 1 7 0 59936 001 820 P Start 05/03 00:00 :00 predniSONE 20 MG Tablet null null 1 57804 001 820 Taking 04/30 00:00 :00 predniSONE 20 MG Tablet null null 1 85477 001 820 P Taking 04/17 00:00 :00 predniSONE 20 MG Tablet null null 1 87791 001 820 Taking 03/28 00:00 :00 predniSONE 20 MG Tablet null null 1 78272 001 820 Taking 03/05 00:00 :00 predniSONE 20 MG Tablet null null 1 40572 001 820 P Taking 02/06 00:00 :00 predniSONE 20 MG Tablet null null 1 35904 001 820 Taking 01/15 00:00 :00 predniSONE 20 MG Tablet null null 1 26871 001 820 P Taking 01/11 00:00 :00 predniSONE 20 MG Tablet null null 1 25542 001 820 P Taking 12/26 00:00 :00 predniSONE 20 MG Tablet null null 1 22600 001 820 Taking 12/03 00:00 :00 predniSONE 20 MG Tablet null null 1 91641 001 820 P Taking 11/14 00:00 :00 predniSONE 20 MG Tablet null null 1 43348 001 820 P Taking 02/17 00:00 :00 Promethazin e-DM 6.25-15 MG/5ML Syrup 12/14/2016 00:00:00 null 0 [id number] 086 P Stop 02/17 00:00 :00 Promethazin e-DM 6.25-15 MG/5ML Syrup 12/14/2016 00:00:00 null 1 200 ml 0 [id number] 086 P Not Taking 02/15 00:00 :00 Promethazin e-DM 6.25-15 MG/5ML Syrup 12/14/2016 00:00:00 null 1 200 ml 0 [id number] 086 P Taking 01/05 00:00 :00 Promethazin e-DM 6.25-15 MG/5ML Syrup 12/14/2016 00:00:00 null 1 200 ml 0 [id number] 086 P Taking 12/14 00:00 :00 Promethazin e-DM 6.25-15 MG/5ML Syrup 12/14/2016 00:00:00 null 1 200 ml 0 [id number] 086 P Start 10/30 00:00 :00 Ranitidine HCl 150 MG Tablet null null 1 60 [id number] 749 P Taking 10/30 00:00 :00 Ranitidine HCl 150 MG Capsule 03/08/2013 00:00:00 null 1 60 5 [id number] 749 P Taking 10/22 00:00 :00 Ranitidine HCl 150 MG Tablet null null 1 60 [id number] 749 Taking 10/22 00:00 :00 Ranitidine HCl 150 MG Capsule 03/08/2013 00:00:00 null 1 60 5 [id number] 749 Taking 08/01 00:00 :00 Ranitidine HCl 150 MG Tablet null null 1 60 [id number] 749 Taking 08/01 00:00 :00 Ranitidine HCl 150 MG Capsule 03/08/2013 00:00:00 null 1 60 5 [id number] 749 Taking 06/27 00:00 :00 Ranitidine HCl 150 MG Tablet null null 1 60 [id number] 749 P Taking 06/27 00:00 :00 Ranitidine HCl 150 MG Capsule 03/08/2013 00:00:00 null 1 60 5 [id number] 749 P Taking 06/04 00:00 :00 Ranitidine HCl 150 MG Tablet null null 1 60 [id number] 749 P Taking 06/04 00:00 :00 Ranitidine HCl 150 MG Capsule 03/08/2013 00:00:00 null 1 60 5 [id number] 749 P Taking 05/03 00:00 :00 Ranitidine HCl 150 MG Tablet null null 1 60 [id number] 749 Taking 05/03 00:00 :00 Ranitidine HCl 150 MG Capsule 03/08/2013 00:00:00 null 1 60 5 [id number] 749 Taking 04/30 00:00 :00 Ranitidine HCl 150 MG Tablet null null 1 60 [id number] 749 P Taking 04/30 00:00 :00 Ranitidine HCl 150 MG Capsule 03/08/2013 00:00:00 null 1 60 5 [id number] 749 P Taking 04/17 00:00 :00 Ranitidine HCl 150 MG Tablet null null 1 60 [id number] 749 Taking 04/17 00:00 :00 Ranitidine HCl 150 MG Capsule 03/08/2013 00:00:00 null 1 60 5 [id number] 749 Taking 03/28 00:00 :00 Ranitidine HCl 150 MG Tablet null null 1 60 [id number] 749 Taking 03/28 00:00 :00 Ranitidine HCl 150 MG Capsule 03/08/2013 00:00:00 null 1 60 5 [id number] 749 Taking 03/08 00:00 :00 Ranitidine HCl 150 MG Capsule 03/08/2013 00:00:00 null 1 60 5 [id number] 749 P Start 03/05 00:00 :00 Ranitidine HCl 150 MG Tablet null null 1 60 [id number] 749 P Taking 02/06 00:00 :00 Ranitidine HCl 150 MG Tablet null null 1 60 [id number] 749 Taking 01/15 00:00 :00 Ranitidine HCl 150 MG Tablet null null 1 60 [id number] 749 P Taking 01/11 00:00 :00 Ranitidine HCl 150 MG Tablet null null 1 60 [id number] 749 P Taking 12/26 00:00 :00 Ranitidine HCl 150 MG Tablet null null 1 60 [id number] 749 Taking 12/03 00:00 :00 Ranitidine HCl 150 MG Tablet null null 1 60 [id number] 749 P Taking 11/14 00:00 :00 Ranitidine HCl 150 MG Tablet null null 1 60 [id number] 749 P Taking 10/19 00:00 :00 ReliOn Insulin Syringe 0.5/30G [facility] null 01/04/201 9 00:00:00 0 [id number] 170 Stop 10/19 00:00 :00 ReliOn Insulin Syringe 0.5/30G [facility] null null 1 120 Unspecifi ed 5 [id number] 170 Not Taking 09/11 00:00 :00 ReliOn Insulin Syringe 0.5/30G [facility] us null null 1 120 Unspecifi ed 5 [id number] 170 Not Taking 08/24 00:00 :00 ReliOn Insulin Syringe 0.5/30G [facility] us null null 1 120 Unspecifi ed 5 [id number] 170 Not Taking 08/10 00:00 :00 ReliOn Insulin Syringe 0.5/30G [facility] us null null 1 120 Unspecifi ed 5 [id number] 170 Not Taking 07/30 00:00 :00 ReliOn Insulin Syringe 0.5/30G [facility] us null null 1 120 Unspecifi ed 5 [id number] 170 Not Taking 07/24 00:00 :00 ReliOn Insulin Syringe 0.5/30G [facility] us null null 1 120 Unspecifi ed 5 [id number] 170 Not Taking 07/20 00:00 :00 ReliOn Insulin Syringe 0.5/30G [facility] us null null 0 120 Unspecifi ed 5 [id number] 170 Unknown Status 07/13 00:00 :00 ReliOn Insulin Syringe 0.5/30G [facility] us null null 0 120 Unspecifi ed 5 [id number] 170 Unknown Status 07/06 00:00 :00 ReliOn Insulin Syringe 0.5/30G [facility] us null null 0 120 Unspecifi ed 5 [id number] 170 Unknown Status 06/23 00:00 :00 ReliOn Insulin Syringe 0.5/30G [facility] us null null 0 120 Unspecifi ed 5 [id number] 170 Unknown Status 06/13 00:00 :00 ReliOn Insulin Syringe 0.5/30G [facility] us null null 0 120 Unspecifi ed 5 [id number] 170 Unknown Status 06/06 00:00 :00 ReliOn Insulin Syringe 0.5/30G [facility] us null null 0 120 Unspecifi ed 5 [id number] 170 Unknown Status 05/29 00:00 :00 ReliOn Insulin Syringe 0.5/30G [facility] us null null 0 120 Unspecifi ed 5 [id number] 170 Unknown Status 05/21 00:00 :00 ReliOn Insulin Syringe 0.5/30G [facility] us null null 0 120 Unspecifi ed 5 [id number] 170 Unknown Status 04/16 00:00 :00 ReliOn Insulin Syringe 0.5/30G [facility] us null null 0 120 Unspecifi ed 5 [id number] 170 Unknown Status 02/28 00:00 :00 ReliOn Insulin Syringe 0.5/30G [facility] us null null 0 120 Unspecifi ed 5 [id number] 170 Unknown Status 01/24 00:00 :00 ReliOn Insulin Syringe 0.5/30G [facility] us null null 0 120 Unspecifi ed 5 [id number] 170 Unknown Status 01/09 00:00 :00 ReliOn Insulin Syringe 0.5/30G [facility] us null null 0 120 Unspecifi ed 5 [id number] 170 Unknown Status 12/20 00:00 :00 ReliOn Insulin Syringe 0.5/30G [facility] us null null 0 120 Unspecifi ed 5 [id number] 170 Unknown Status 11/17 00:00 :00 ReliOn Insulin Syringe 0.5/30G [facility] us null null 0 120 Unspecifi ed 5 [id number] 170 Unknown Status 11/11 00:00 :00 ReliOn Insulin Syringe 0.5/30G [facility] us null null 0 120 Unspecifi ed 5 [id number] 170 Unknown Status 08/29 00:00 :00 ReliOn Insulin Syringe 0.5/30G [facility] us null null 0 120 Unspecifi ed 5 [id number] 170 Unknown Status 06/30 00:00 :00 ReliOn Insulin Syringe 0.5/30G [facility]ell[facility] us null null 0 120 Unspecifi ed 5 [id number] 170 Unknown Status 06/06 00:00 :00 ReliOn Insulin Syringe 0.5/30G [facility] us null null 0 120 Unspecifi ed 5 [id number] 170 Unknown Status 02/17 00:00 :00 ReliOn Insulin Syringe 0.5/30G [facility]ell[facility] us null null 1 120 Unspecifi ed 5 [id number] 170 Taking 02/15 00:00 :00 ReliOn Insulin Syringe 0.5/30G [facility]ell[facility] us null null 1 120 Unspecifi ed 5 [id number] 170 Taking 01/05 00:00 :00 ReliOn Insulin Syringe 0.5/30G [facility] us null null 1 120 Unspecifi ed 5 [id number] 170 Taking 12/14 00:00 :00 ReliOn Insulin Syringe 0.5/30G [facility] us null null 1 120 Unspecifi ed 5 [id number] 170 Taking 11/15 00:00 :00 ReliOn Insulin Syringe 0.5/30G [facility] us null null 1 120 Unspecifi ed 5 [id number] 170 Taking 10/31 00:00 :00 ReliOn Insulin Syringe 0.5/30G [facility] us null null 1 120 Unspecifi ed 5 [id number] 170 Taking 10/24 00:00 :00 ReliOn Insulin Syringe 0.5/30G [facility] us null null 1 120 Unspecifi ed 5 [id number] 170 Taking 09/05 00:00 :00 ReliOn Insulin Syringe 0.5/30G [facility] us null null 1 120 Unspecifi ed 5 [id number] 170 Taking 06/09 00:00 :00 ReliOn Insulin Syringe 0.5/30G [facility] us null null 1 120 Unspecifi ed 5 [id number] 170 Continue 05/12 00:00 :00 ReliOn Insulin Syringe 0.5/30G [facility] us null null 1 120 Unspecifi ed 5 [id number] 170 P Taking 05/02 00:00 :00 ReliOn Insulin Syringe 0.5/30G [facility] us null null 1 120 Unspecifi ed 5 [id number] 170 P Taking 03/03 00:00 :00 ReliOn Insulin Syringe 0.5/30G M[facility]ell[facility] us null null 1 120 Unspecifi ed 5 [id number] 170 P Taking 11/17 00:00 :00 ReliOn Insulin Syringe 0.5/30G [facility]ell[facility] us null null 1 120 Unspecifi ed 5 [id number] 170 P Taking 10/13 00:00 :00 ReliOn Insulin Syringe 0.5/30G [facility] us null null 1 120 Unspecifi ed 5 [id number] 170 P Taking 08/11 00:00 :00 ReliOn Insulin Syringe 0.5/30G [facility] us null null 1 120 Unspecifi ed 5 [id number] 170 P Taking 06/29 00:00 :00 ReliOn Insulin Syringe 0.5/30G [facility] us null null 1 120 Unspecifi ed 5 [id number] 170 P Start 06/02 00:00 :00 ReliOn Insulin Syringe 0.5/30G [facility] us null null 1 120 Not Specified 11 [id number] 170 Taking 05/06 00:00 :00 ReliOn Insulin Syringe 0.5/30G [facility] us null null 1 120 Not Specified 11 [id number] 170 Taking 03/06 00:00 :00 ReliOn Insulin Syringe 0.5/30G [facility] us null null 1 120 Not Specified 11 [id number] 170 Taking 01/02 00:00 :00 ReliOn Insulin Syringe 0.5/30G [facility] us null null 1 120 Not Specified 11 [id number] 170 Taking 10/29 00:00 :00 ReliOn Insulin Syringe 0.5/30G [facility] us null null 1 120 Not Specified 11 [id number] 170 Taking 09/29 00:00 :00 ReliOn Insulin Syringe 0.5/30G [facility] us null null 1 120 Not Specified 11 [id number] 170 Taking 07/28 00:00 :00 ReliOn Insulin Syringe 0.5/30G [facility] us null null 1 120 Not Specified 11 [id number] 170 Taking 06/03 00:00 :00 ReliOn Insulin Syringe 0.5/30G [facility] us null null 1 120 Not Specified 11 [id number] 170 Taking 05/13 00:00 :00 ReliOn Insulin Syringe 0.5/30G [facility] us null null 1 120 Not Specified 11 [id number] 170 Start 04/07 00:00 :00 ReliOn Insulin Syringe 0.5 Miscellaneo us Unspecified null null 1 120 11 Taking 02/21 00:00 :00 ReliOn Insulin Syringe 0.5 Miscellaneo us Unspecified null null 1 120 11 Taking 02/04 00:00 :00 ReliOn Insulin Syringe 0.5 Miscellaneo us Unspecified null null 1 120 11 Taking 01/07 00:00 :00 ReliOn Insulin Syringe 0.5 Miscellaneo us Unspecified null null 1 120 11 Taking 11/22 00:00 :00 ReliOn Insulin Syringe 0.5 Miscellaneo us Unspecified null null 1 120 11 P Taking 10/30 00:00 :00 ReliOn Insulin Syringe 0.5 Miscellaneo us Unspecified null null 1 120 11 P Taking 10/22 00:00 :00 ReliOn Insulin Syringe 0.5 Miscellaneo us Unspecified null null 1 120 11 Taking 08/01 00:00 :00 ReliOn Insulin Syringe 0.5 Miscellaneo us Unspecified null null 1 120 11 Taking 06/27 00:00 :00 ReliOn Insulin Syringe 0.5 Miscellaneo us Unspecified null null 1 120 11 P Taking 06/04 00:00 :00 ReliOn Insulin Syringe 0.5 Miscellaneo us Unspecified null null 1 120 11 P Taking 05/03 00:00 :00 ReliOn Insulin Syringe 0.5 Miscellaneo us Unspecified null null 1 120 11 Taking 04/30 00:00 :00 ReliOn Insulin Syringe 0.5 Miscellaneo us Unspecified null null 1 120 11 P Taking 04/17 00:00 :00 ReliOn Insulin Syringe 0.5 Miscellaneo us Unspecified null null 1 120 11 Taking 04/15 00:00 :00 ReliOn Insulin Syringe 0.5 Miscellaneo us Unspecified null null 1 120 11 P Start 03/28 00:00 :00 ReliOn Insulin Syringe 0.5 Miscellaneo us Unspecified null null 1 120 10 Taking 03/05 00:00 :00 ReliOn Insulin Syringe 0.5 Miscellaneo us Unspecified null null 1 120 10 P Taking 02/06 00:00 :00 ReliOn Insulin Syringe 0.5 Miscellaneo us Unspecified null null 1 120 10 Taking 01/15 00:00 :00 ReliOn Insulin Syringe 0.5 Miscellaneo us Unspecified null null 1 120 10 P Taking 01/11 00:00 :00 ReliOn Insulin Syringe 0.5 Miscellaneo us Unspecified null null 1 120 10 P Taking 12/26 00:00 :00 ReliOn Insulin Syringe 0.5 Miscellaneo us Unspecified null null 1 120 10 Taking 12/03 00:00 :00 ReliOn Insulin Syringe 0.5 Miscellaneo us Unspecified null null 1 120 10 P Taking 11/14 00:00 :00 ReliOn Insulin Syringe 0.5 Miscellaneo us Unspecified null null 1 120 10 P Taking 10/31 00:00 :00 ReliOn Insulin Syringe 0.5 Miscellaneo us Unspecified null null 1 120 10 Taking 10/24 00:00 :00 ReliOn Insulin Syringe 0.5 Miscellaneo us Unspecified null null 1 120 10 Taking 10/23 00:00 :00 ReliOn Insulin Syringe 0.5 Miscellaneo us Unspecified null null 1 120 10 P Taking 10/18 00:00 :00 ReliOn Insulin Syringe 0.5 Miscellaneo us Unspecified null null 1 120 10 P Taking 10/15 00:00 :00 ReliOn Insulin Syringe 0.5 Miscellaneo us Unspecified null null 1 120 10 Taking 07/10 00:00 :00 ReliOn Insulin Syringe 0.5 Miscellaneo us Unspecified null null 1 120 10 P Taking 07/04 00:00 :00 ReliOn Insulin Syringe 0.5 Miscellaneo us Unspecified null null 1 120 10 P Refill 07/14 00:00 :00 Semglee (yfgn) 100 UNIT/ML Solution Pen-injecto r null null 1 15 Millilite r 0 [id number] 175 Start 07/05 00:00 :00 Sevelamer Carbonate 800 MG Tablet null null 1 90 [id number] 706 Taking 11/26 00:00 :00 Sevelamer Carbonate 800 MG Tablet null null 1 90 [id number] 706 Taking 04/02 00:00 :00 Sevelamer Carbonate 800 MG Tablet null null 1 90 [id number] 706 Taking 02/26 00:00 :00 Sevelamer Carbonate 800 MG Tablet null null 1 90 [id number] 706 Taking 01/19 00:00 :00 Sevelamer Carbonate 800 MG Tablet null null 1 90 [id number] 706 Taking 12/07 00:00 :00 Sevelamer Carbonate 800 MG Tablet null null 1 90 [id number] 706 Taking 11/04 00:00 :00 Sevelamer Carbonate 800 MG Tablet null null 1 90 [id number] 706 Taking 06/16 00:00 :00 Sevelamer Carbonate 800 MG Tablet null null 1 90 [id number] 706 Taking 02/19 00:00 :00 Sevelamer Carbonate 800 MG Tablet null null 1 90 [id number] 706 Taking 06/11 00:00 :00 Silvadene 1 % Cream 04/24/2019 00:00:00 null 0 400 grams 0 [id number] 320 P Discontinu ed 05/15 00:00 :00 Silvadene 1 % Cream 04/24/2019 00:00:00 null 1 400 grams 0 [id number] 320 P Taking 04/24 00:00 :00 Silvadene 1 % Cream 04/24/2019 00:00:00 null 1 400 grams 0 [id number] 320 P Start 10/19 00:00 :00 Simethicone 125 MG Tablet Chewable 07/30/2018 00:00:00 9 00:00:00 0 [id number] 408 Stop 10/19 00:00 :00 Simethicone 125 MG Tablet Chewable 07/30/2018 00:00:00 null 0 60 0 [id number] 408 P Discontinu ed 09/11 00:00 :00 Simethicone 125 MG Tablet Chewable 07/30/2018 00:00:00 null 1 60 0 [id number] 408 P Taking 08/24 00:00 :00 Simethicone 125 MG Tablet Chewable 07/30/2018 00:00:00 null 1 60 0 [id number] 408 P Taking 08/10 00:00 :00 Simethicone 125 MG Tablet Chewable 07/30/2018 00:00:00 null 1 60 0 [id number] 408 P Taking 07/30 00:00 :00 Simethicone 125 MG Tablet Chewable 07/30/2018 00:00:00 null 1 60 0 [id number] 408 P Start 07/28 00:00 :00 Simvastatin 40 MG Tablet null null 0 30 5445 8093 216 Discontinu ed 06/03 00:00 :00 Simvastatin 40 MG Tablet null null 1 30 5445 8093 216 Taking 04/07 00:00 :00 Simvastatin 40 MG Tablet null null 1 30 5445 8093 216 Taking 02/21 00:00 :00 Simvastatin 40 MG Tablet null null 1 30 5445 8093 216 Taking 02/04 00:00 :00 Simvastatin 40 MG Tablet null null 1 30 5445 8093 216 Taking 01/07 00:00 :00 Simvastatin 40 MG Tablet null null 1 30 5445 8093 216 Taking 11/22 00:00 :00 Simvastatin 40 MG Tablet null null 1 30 5445 8093 216 P Taking 10/30 00:00 :00 Simvastatin 40 MG Tablet null null 1 30 5445 8093 216 P Taking 10/22 00:00 :00 Simvastatin 40 MG Tablet null null 1 30 5445 8093 216 Taking 08/01 00:00 :00 Simvastatin 40 MG Tablet null null 1 30 5445 8093 216 Taking 06/27 00:00 :00 Simvastatin 40 MG Tablet null null 1 30 5445 8093 216 P Taking 06/04 00:00 :00 Simvastatin 40 MG Tablet null null 1 30 5445 8093 216 P Taking 05/03 00:00 :00 Simvastatin 40 MG Tablet null null 1 30 5445 8093 216 Taking 04/30 00:00 :00 Simvastatin 40 MG Tablet null null 1 30 5445 8093 216 P Taking 04/17 00:00 :00 Simvastatin 40 MG Tablet null null 1 30 5445 8093 216 Taking 03/28 00:00 :00 Simvastatin 40 MG Tablet null null 1 30 5445 8093 216 Taking 03/05 00:00 :00 Simvastatin 40 MG Tablet null null 1 30 5445 8093 216 P Taking 02/06 00:00 :00 Simvastatin 40 MG Tablet null null 1 30 5445 8093 216 Taking 01/15 00:00 :00 Simvastatin 40 MG Tablet null null 1 30 5445 8093 216 P Taking 01/11 00:00 :00 Simvastatin 40 MG Tablet null null 1 30 5445 8093 216 P Taking 12/26 00:00 :00 Simvastatin 40 MG Tablet null null 1 30 5445 8093 216 Taking 12/03 00:00 :00 Simvastatin 40 MG Tablet null null 1 30 5445 8093 216 P Taking 11/14 00:00 :00 Simvastatin 40 MG Tablet null null 1 30 5445 8093 216 P Taking 10/31 00:00 :00 Simvastatin 40 MG Tablet null null 1 30 5445 8093 216 Taking 10/24 00:00 :00 Simvastatin 40 MG Tablet null null 1 30 5445 8093 216 Taking 10/23 00:00 :00 Simvastatin 40 MG Tablet null null 1 30 5445 8093 216 P Taking 10/18 00:00 :00 Simvastatin 40 MG Tablet null null 1 30 5445 8093 216 P Taking 10/15 00:00 :00 Simvastatin 40 MG Tablet null null 1 30 5445 8093 216 Taking 07/10 00:00 :00 Simvastatin 40 MG Tablet null null 1 30 5445 8093 216 P Taking 02/19 00:00 :00 Spironolact one 25 MG Tablet null null 0 15 12472772 601 Discontinu ed 01/13 00:00 :00 Spironolact one 25 MG Tablet null null 1 15 17463057 601 Taking 01/12 00:00 :00 Spironolact one 25 MG Tablet null null 1 15 92990260 601 Taking 11/27 00:00 :00 Spironolact one 25 MG Tablet null null 1 15 46014293 601 Taking 11/04 00:00 :00 Spironolact one 25 MG Tablet null null 1 15 37462743 601 Taking 06/11 00:00 :00 Spironolact one 25 MG Tablet null null 1 15 96613995 601 Taking 10/19 00:00 :00 Spironolact one 25 MG Tablet null 9 00:00:00 0 [id number] 601 Stop 10/19 00:00 :00 Spironolact one 25 MG Tablet null null 0 60 11 34400751 601 P Discontinu ed 09/11 00:00 :00 Spironolact one 25 MG Tablet null null 1 60 11 93333712 601 P Taking 08/24 00:00 :00 Spironolact one 25 MG Tablet null null 1 60 11 [id number] 601 P Refill 08/24 00:00 :00 Spironolact one 25 MG Tablet null null 1 64228996 601 Taking 08/10 00:00 :00 Spironolact one 25 MG Tablet null null 1 [id number] 601 Taking 02/19 00:00 :00 traMADol HCl 50 MG Tablet 06/11/2019 00:00:00 null 0 30 2 [id number] 801 P Discontinu ed 01/13 00:00 :00 traMADol HCl 50 MG Tablet 06/11/2019 00:00:00 null 1 30 2 [id number] 801 P Taking 01/12 00:00 :00 traMADol HCl 50 MG Tablet 06/11/2019 00:00:00 null 1 30 2 [id number] 801 P Taking 11/27 00:00 :00 traMADol HCl 50 MG Tablet 06/11/2019 00:00:00 null 1 30 2 [id number] 801 P Taking 11/04 00:00 :00 traMADol HCl 50 MG Tablet 06/11/2019 00:00:00 null 1 30 2 [id number] 801 P Taking 06/11 00:00 :00 traMADol HCl 50 MG Tablet 06/11/2019 00:00:00 null 1 30 2 [id number] 801 P Start 01/18 00:00 :00 Tramadol HCl 50 MG Tablet 01/02/2019 00:00:00 9 00:00:00 0 [id number] 801 Stop 01/18 00:00 :00 Tramadol HCl 50 MG Tablet 01/02/2019 00:00:00 null 1 30 1 [id number] 801 P Taking 01/09 00:00 :00 Tramadol HCl 50 MG Tablet 01/02/2019 00:00:00 null 1 30 1 [id number] 801 P Taking 01/02 00:00 :00 Tramadol HCl 50 MG Tablet 01/02/2019 00:00:00 null 1 30 1 [id number] 801 P Start 07/06 00:00 :00 Triamcinolo ne Acetonide 0.1 % Cream null null 1 80 Gram 2 [id number] 436 Start 07/06 00:00 :00 Triamcinolo ne Acetonide 0.1 % Cream null null 0 80 Gram 2 [id number] 436 Stop 07/05 00:00 :00 Triamcinolo ne Acetonide 0.1 % Cream null null 1 80 Gram 2 [id number] 436 Taking 11/26 00:00 :00 Triamcinolo ne Acetonide 0.1 % Cream null null 1 80 Gram 2 [id number] 436 Taking 07/26 00:00 :00 Triamcinolo ne Acetonide 0.1 % Cream null null 1 80 Gram 2 [id number] 436 Start 07/26 00:00 :00 Triamcinolo ne Acetonide 0.1 % Cream null null 0 75 1 [id number] 436 Stop 04/02 00:00 :00 Triamcinolo ne Acetonide 0.1 % Cream null null 1 75 1 [id number] 436 P Taking 02/26 00:00 :00 Triamcinolo ne Acetonide 0.1 % Cream null null 1 75 1 [id number] 436 P Taking 01/21 00:00 :00 Triamcinolo ne Acetonide 0.1 % Cream null null 1 75 1 [id number] 436 P Refill 01/19 00:00 :00 Triamcinolo ne Acetonide 0.1 % Cream null null 1 75 1 [id number] 435 Taking 12/07 00:00 :00 Triamcinolo ne Acetonide 0.1 % Cream null null 1 75 1 [id number] 435 Taking 11/04 00:00 :00 Triamcinolo ne Acetonide 0.1 % Cream null null 1 75 1 [id number] 435 Taking 08/01 00:00 :00 Triamcinolo ne Acetonide 0.1 % Cream null null 1 75 1 [id number] 435 Refill 06/26 00:00 :00 Triamcinolo ne Acetonide 0.1 % Cream null null 1 80 0 [id number] 436 Refill 06/26 00:00 :00 Triamcinolo ne Acetonide 0.1 % Cream 06/20/2019 00:00:00 null 1 1 2 [id number] 415 Continue 06/16 00:00 :00 Triamcinolo ne Acetonide 0.1 % Cream 06/20/2019 00:00:00 null 1 1 2 [id number] 415 Taking 02/19 00:00 :00 Triamcinolo ne Acetonide 0.1 % Cream 06/20/2019 00:00:00 null 1 1 2 [id number] 415 Taking 02/06 00:00 :00 Triamcinolo ne Acetonide 0.1 % Cream 06/20/2019 00:00:00 null 1 1 2 [id number] 415 Continue 01/13 00:00 :00 Triamcinolo ne Acetonide 0.1 % Cream 06/20/2019 00:00:00 null 1 15 gm 1 [id number] 415 P Taking 01/12 00:00 :00 Triamcinolo ne Acetonide 0.1 % Cream 06/20/2019 00:00:00 null 1 15 gm 1 [id number] 415 P Taking 11/27 00:00 :00 Triamcinolo ne Acetonide 0.1 % Cream 06/20/2019 00:00:00 null 1 15 gm 1 [id number] 415 P Taking 11/04 00:00 :00 Triamcinolo ne Acetonide 0.1 % Cream 06/20/2019 00:00:00 null 1 15 gm 1 [id number] 415 P Taking 06/19 00:00 :00 Triamcinolo ne Acetonide 0.1 % Cream 06/20/2019 00:00:00 null 1 15 gm 1 [id number] 415 P Start 07/28 00:00 :00 Triamcinolo ne Acetonide 0.1 % Cream 03/05/2013 00:00:00 null 0 1 [id number] 117 Discontinu ed 06/03 00:00 :00 Triamcinolo ne Acetonide 0.1 % Cream 03/05/2013 00:00:00 null 1 1 [id number] 117 Taking 04/07 00:00 :00 Triamcinolo ne Acetonide 0.1 % Cream 03/05/2013 00:00:00 null 1 1 [id number] 117 Taking 02/21 00:00 :00 Triamcinolo ne Acetonide 0.1 % Cream 03/05/2013 00:00:00 null 1 1 [id number] 117 Taking 02/04 00:00 :00 Triamcinolo ne Acetonide 0.1 % Cream 03/05/2013 00:00:00 null 1 1 [id number] 117 Taking 01/07 00:00 :00 Triamcinolo ne Acetonide 0.1 % Cream 03/05/2013 00:00:00 null 1 1 82650011 117 Taking 11/22 00:00 :00 Triamcinolo ne Acetonide 0.1 % Cream 03/05/2013 00:00:00 null 1 1 [id number] 117 P Taking 10/30 00:00 :00 Triamcinolo ne Acetonide 0.1 % Cream 03/05/2013 00:00:00 null 1 1 [id number] 117 P Taking 10/22 00:00 :00 Triamcinolo ne Acetonide 0.1 % Cream 03/05/2013 00:00:00 null 1 1 [id number] 117 Taking 08/01 00:00 :00 Triamcinolo ne Acetonide 0.1 % Cream 03/05/2013 00:00:00 null 1 1 [id number] 117 Taking 06/27 00:00 :00 Triamcinolo ne Acetonide 0.1 % Cream 03/05/2013 00:00:00 null 1 1 [id number] 117 P Taking 06/04 00:00 :00 Triamcinolo ne Acetonide 0.1 % Cream 03/05/2013 00:00:00 null 1 1 [id number] 117 P Taking 05/03 00:00 :00 Triamcinolo ne Acetonide 0.1 % Cream 03/05/2013 00:00:00 null 1 1 [id number] 117 Taking 04/30 00:00 :00 Triamcinolo ne Acetonide 0.1 % Cream 03/05/2013 00:00:00 null 1 1 [id number] 117 P Taking 04/23 00:00 :00 Triamcinolo ne Acetonide 0.1 % Cream 03/05/2013 00:00:00 null 1 1 [id number] 117 P Continue 04/17 00:00 :00 Triamcinolo ne Acetonide 0.1 % Cream 03/05/2013 00:00:00 null 1 30 gm 1 [id number] 117 Taking 03/28 00:00 :00 Triamcinolo ne Acetonide 0.1 % Cream 03/05/2013 00:00:00 null 1 30 gm 1 [id number] 117 Taking 03/05 00:00 :00 Triamcinolo ne Acetonide 0.1 % Cream 03/05/2013 00:00:00 null 1 30 gm 1 [id number] 117 Start 07/28 00:00 :00 Ventolin HFA 108 Aerosol null null 0 18 Gram 2 Disconti nu ed 06/03 00:00 :00 Ventolin HFA 108 Aerosol null null 1 18 Gram 2 Taking 04/07 00:00 :00 Ventolin HFA 108 Aerosol null null 1 18 Gram 2 Taking 02/21 00:00 :00 Ventolin HFA 108 Aerosol null null 1 18 Gram 2 Taking 02/04 00:00 :00 Ventolin HFA 108 Aerosol null null 1 18 Gram 2 Taking 01/07 00:00 :00 Ventolin HFA 108 Aerosol null null 1 18 Gram 2 Taking 11/22 00:00 :00 Ventolin HFA 108 Aerosol null null 1 18 Gram 2 P Taking 10/30 00:00 :00 Ventolin HFA 108 Aerosol null null 1 18 Gram 2 P Taking 10/22 00:00 :00 Ventolin HFA 108 Aerosol null null 1 18 Gram 2 Taking 08/01 00:00 :00 Ventolin HFA 108 Aerosol null null 1 18 Gram 2 Taking 06/27 00:00 :00 Ventolin HFA 108 Aerosol null null 1 18 Gram 2 P Taking 06/04 00:00 :00 Ventolin HFA 108 Aerosol null null 1 18 Gram 2 P Taking 05/03 00:00 :00 Ventolin HFA 108 Aerosol null null 1 18 Gram 2 Taking 04/30 00:00 :00 Ventolin HFA 108 Aerosol null null 1 18 Gram 2 P Taking 04/17 00:00 :00 Ventolin HFA 108 Aerosol null null 1 18 Gram 2 Taking 03/28 00:00 :00 Ventolin HFA 108 Aerosol null null 1 18 Gram 2 Taking 03/05 00:00 :00 Ventolin HFA 108 Aerosol null null 1 18 Gram 2 P Taking 02/19 00:00 :00 Ventolin HFA 108 Aerosol null null 1 18 Gram 2 P Refill 12/26 00:00 :00 Warfarin Sodium 3 MG Tablet 07/13/2018 00:00:00 null 0 30 2 [id number] 501 P Discontinu ed 11/05 00:00 :00 Warfarin Sodium 3 MG Tablet 07/13/2018 00:00:00 null 1 30 2 [id number] 501 P Taking 10/19 00:00 :00 Warfarin Sodium 3 MG Tablet 07/13/2018 00:00:00 null 1 30 2 [id number] 501 P Refill 10/19 00:00 :00 Warfarin Sodium 1MG null 9 00:00:00 0 Stop 10/19 00:00 :00 Warfarin Sodium 1MG tablet null 9 00:00:00 0 [id number] 901 Stop 10/19 00:00 :00 Warfarin Sodium 5MG Tablet null 9 00:00:00 0 [id number] 401 Stop 10/19 00:00 :00 Warfarin Sodium 4 MG Tablet null 9 00:00:00 0 [id number] 601 Stop 10/19 00:00 :00 Warfarin Sodium 3 MG Tablet 07/13/2018 00:00:00 null 1 30 2 [id number] 501 P Taking 10/19 00:00 :00 Warfarin Sodium 4 MG Tablet null null 1 [id number] 601 P Not Taking 10/19 00:00 :00 Warfarin Sodium 5MG Tablet null null 1 30 Tablet 5 [id number] 401 P Not Taking 10/19 00:00 :00 Warfarin Sodium 1MG tablet null null 1 30 Tablet 11 [id number] 901 Not Taking 10/19 00:00 :00 Warfarin Sodium 1MG null null 1 30 4 P Not Taking 09/11 00:00 :00 Warfarin Sodium 4 MG Tablet null null 1 [id number] 601 P Taking 09/11 00:00 :00 Warfarin Sodium 5MG Tablet null null 1 30 Tablet 5 [id number] 401 P Taking 09/11 00:00 :00 Warfarin Sodium 1MG tablet null null 1 30 Tablet 11 [id number] 901 Taking 09/11 00:00 :00 Warfarin Sodium 3 MG Tablet 07/13/2018 00:00:00 null 1 30 2 [id number] 501 P Taking 09/11 00:00 :00 Warfarin Sodium 1MG null null 1 30 4 P Not Taking 08/24 00:00 :00 Warfarin Sodium 4 MG Tablet null null 1 [id number] 601 P Taking 08/24 00:00 :00 Warfarin Sodium 5MG Tablet null null 1 30 Tablet 5 [id number] 401 P Taking 08/24 00:00 :00 Warfarin Sodium 1MG tablet null null 1 30 Tablet 11 [id number] 901 Taking 08/24 00:00 :00 Warfarin Sodium 3 MG Tablet 07/13/2018 00:00:00 null 1 30 2 [id number] 501 P Taking 08/24 00:00 :00 Warfarin Sodium 1MG null null 1 30 4 P Not Taking 08/10 00:00 :00 Warfarin Sodium 4 MG Tablet null null 1 [id number] 601 P Taking 08/10 00:00 :00 Warfarin Sodium 5MG Tablet null null 1 30 Tablet 5 [id number] 401 P Taking 08/10 00:00 :00 Warfarin Sodium 1MG tablet null null 1 30 Tablet 11 [id number] 901 Taking 08/10 00:00 :00 Warfarin Sodium 3 MG Tablet 07/13/2018 00:00:00 null 1 30 2 [id number] 501 P Taking 08/10 00:00 :00 Warfarin Sodium 1MG null null 1 30 4 P Not Taking 07/30 00:00 :00 Warfarin Sodium 4 MG Tablet null null 1 [id number] 601 P Taking 07/30 00:00 :00 Warfarin Sodium 5MG Tablet null null 1 30 Tablet 5 [id number] 401 P Taking 07/30 00:00 :00 Warfarin Sodium 1MG tablet null null 1 30 Tablet 11 [id number] 901 Taking 07/30 00:00 :00 Warfarin Sodium 3 MG Tablet 07/13/2018 00:00:00 null 1 30 2 [id number] 501 P Taking 07/30 00:00 :00 Warfarin Sodium 1MG null null 1 30 4 P Not Taking 07/24 00:00 :00 Warfarin Sodium 4 MG Tablet null null 1 [id number] 601 P Taking 07/24 00:00 :00 Warfarin Sodium 5MG Tablet null null 1 30 Tablet 5 [id number] 401 P Taking 07/24 00:00 :00 Warfarin Sodium 1MG tablet null null 1 30 Tablet 11 [id number] 901 Taking 07/24 00:00 :00 Warfarin Sodium 3 MG Tablet 07/13/2018 00:00:00 null 1 30 2 [id number] 501 P Taking 07/24 00:00 :00 Warfarin Sodium 1MG null null 1 30 4 P Not Taking 07/20 00:00 :00 Warfarin Sodium 4 MG Tablet null null 1 [id number] 601 P Taking 07/20 00:00 :00 Warfarin Sodium 5MG Tablet null null 1 30 Tablet 5 [id number] 401 P Taking 07/20 00:00 :00 Warfarin Sodium 1MG tablet null null 1 30 Tablet 11 [id number] 901 Taking 07/20 00:00 :00 Warfarin Sodium 3 MG Tablet 07/13/2018 00:00:00 null 1 30 2 [id number] 501 P Taking 07/20 00:00 :00 Warfarin Sodium 1MG null null 0 30 4 P Unknown Status 07/13 00:00 :00 Warfarin Sodium 3 MG Tablet 07/13/2018 00:00:00 null 1 30 2 [id number] 501 P Start 07/13 00:00 :00 Warfarin Sodium 4 MG Tablet null null 1 [id number] 601 P Taking 07/13 00:00 :00 Warfarin Sodium 5MG Tablet null null 1 30 Tablet 5 [id number] 401 P Taking 07/13 00:00 :00 Warfarin Sodium 1MG tablet null null 1 30 Tablet 11 [id number] 901 Taking 07/13 00:00 :00 Warfarin Sodium 1MG null null 0 30 4 P Unknown Status 07/06 00:00 :00 Warfarin Sodium 4 MG Tablet null null 1 [id number] 601 P Taking 07/06 00:00 :00 Warfarin Sodium 5MG Tablet null null 1 30 Tablet 5 [id number] 401 P Taking 07/06 00:00 :00 Warfarin Sodium 1MG tablet null null 1 30 Tablet 11 [id number] 901 Taking 07/06 00:00 :00 Warfarin Sodium 1MG null null 0 30 4 P Unknown Status 06/23 00:00 :00 Warfarin Sodium 4 MG Tablet null null 1 [id number] 601 P Taking 06/23 00:00 :00 Warfarin Sodium 5MG Tablet null null 1 30 Tablet 5 [id number] 401 P Taking 06/23 00:00 :00 Warfarin Sodium 1MG tablet null null 1 30 Tablet 11 [id number] 901 Taking 06/23 00:00 :00 Warfarin Sodium 1MG null null 0 30 4 P Unknown Status 06/17 00:00 :00 Warfarin Sodium 1MG tablet null null 1 30 Tablet 11 [id number] 901 Refill 06/13 00:00 :00 Warfarin Sodium 4 MG Tablet null null 1 [id number] 601 P Taking 06/13 00:00 :00 Warfarin Sodium 5MG Tablet null null 1 30 Tablet 5 [id number] 401 P Taking 06/13 00:00 :00 Warfarin Sodium 1MG null null 0 30 4 P Unknown Status 06/06 00:00 :00 Warfarin Sodium 4 MG Tablet null null 1 [id number] 601 P Taking 06/06 00:00 :00 Warfarin Sodium 5MG Tablet null null 1 30 Tablet 5 [id number] 401 P Taking 06/06 00:00 :00 Warfarin Sodium 1MG null null 0 30 4 P Unknown Status 05/29 00:00 :00 Warfarin Sodium 4 MG Tablet null null 1 [id number] 601 P Taking 05/29 00:00 :00 Warfarin Sodium 5MG Tablet null null 1 30 Tablet 5 [id number] 401 P Taking 05/29 00:00 :00 Warfarin Sodium 1MG null null 0 30 4 P Unknown Status 05/21 00:00 :00 Warfarin Sodium 4 MG Tablet null null 1 [id number] 601 P Taking 05/21 00:00 :00 Warfarin Sodium 5MG Tablet null null 1 30 Tablet 5 [id number] 401 P Taking 05/21 00:00 :00 Warfarin Sodium 1MG null null 0 30 4 P Unknown Status 04/16 00:00 :00 Warfarin Sodium 4 MG Tablet null null 1 [id number] 601 P Taking 04/16 00:00 :00 Warfarin Sodium 5MG Tablet null null 1 30 Tablet 5 [id number] 401 P Taking 04/16 00:00 :00 Warfarin Sodium 1MG null null 0 30 4 P Unknown Status 03/13 00:00 :00 Warfarin Sodium 5MG Tablet null null 1 30 Tablet 5 [id number] 401 P Start 02/28 00:00 :00 Warfarin Sodium 4 MG Tablet null null 1 [id number] 601 P Taking 02/28 00:00 :00 Warfarin Sodium 1MG null null 0 30 4 P Unknown Status 01/24 00:00 :00 Warfarin Sodium 5MG Tablet null null 1 30 Tablet 4 [id number] 401 P Taking 01/24 00:00 :00 Warfarin Sodium 1MG null null 0 30 4 P Unknown Status 01/09 00:00 :00 Warfarin Sodium 5MG Tablet null null 1 30 Tablet 4 [id number] 401 P Taking 01/09 00:00 :00 Warfarin Sodium 1MG null null 0 30 4 P Unknown Status 12/20 00:00 :00 Warfarin Sodium 5MG Tablet null null 1 30 Tablet 4 [id number] 401 P Taking 12/20 00:00 :00 Warfarin Sodium 1MG null null 0 30 4 P Unknown Status 11/17 00:00 :00 Warfarin Sodium 5MG Tablet null null 1 30 Tablet 4 [id number] 401 P Taking 11/17 00:00 :00 Warfarin Sodium 1MG null null 0 30 4 P Unknown Status 11/11 00:00 :00 Warfarin Sodium 5MG Tablet null null 1 30 Tablet 4 [id number] 401 P Taking 11/11 00:00 :00 Warfarin Sodium 1MG null null 0 30 4 P Unknown Status 09/05 00:00 :00 Warfarin Sodium 5MG Tablet null null 1 30 Tablet 4 [id number] 401 P Start 08/29 00:00 :00 Warfarin Sodium 5MG Tablet null null 0 30 Tab 4 [id number] 401 P Unknown Status 08/29 00:00 :00 Warfarin Sodium 1MG null null 0 30 4 P Unknown Status 06/30 00:00 :00 Warfarin Sodium 5MG Tablet null null 0 30 Tab 4 [id number] 401 P Unknown Status 06/30 00:00 :00 Warfarin Sodium 1MG null null 0 30 4 P Unknown Status 06/06 00:00 :00 Warfarin Sodium 5MG Tablet null null 0 30 Tab 4 88202241 401 P Unknown Status 06/06 00:00 :00 Warfarin Sodium 1MG null null 0 30 4 P Unknown Status 05/27 00:00 :00 Warfarin Sodium 1MG null null 1 30 4 P Start 03/30 00:00 :00 Warfarin Sodium 5MG Tablet null null 1 30 Tab 4 [id number] 401 P Start 02/17 00:00 :00 Warfarin Sodium 5MG Tablet null null 1 30 Tab 4 [id number] 401 P Taking 02/15 00:00 :00 Warfarin Sodium 5MG Tablet null null 1 30 Tab 4 [id number] 401 P Taking 01/05 00:00 :00 Warfarin Sodium 5MG Tablet null null 1 30 Tab 4 [id number] 401 P Taking 12/14 00:00 :00 Warfarin Sodium 5MG Tablet null null 1 30 Tab 4 [id number] 401 P Taking 11/15 00:00 :00 Warfarin Sodium 5MG Tablet null null 1 30 Tab 4 [id number] 401 P Taking 10/31 00:00 :00 Warfarin Sodium 5MG Tablet null null 1 30 Tab 4 [id number] 401 P Taking 10/24 00:00 :00 Warfarin Sodium 5MG Tablet null null 1 30 Tab 4 [id number] 401 P Taking 10/11 00:00 :00 Warfarin Sodium 5MG Tablet null null 1 30 Tab 4 [id number] 401 P Start 10/11 00:00 :00 Warfarin Sodium 1MG Tablet null null 1 30 Tab 4 [id number] 901 P Start 09/05 00:00 :00 Warfarin Sodium 6 MG null null 1 30 4 P Taking 05/28 00:00 :00 Warfarin Sodium 6 MG null null 1 30 4 P Start 05/12 00:00 :00 Warfarin Sodium 1mg Tablet null null 1 30 Tab 5 [id number] 101 Taking 05/02 00:00 :00 Warfarin Sodium 1mg Tablet null null 1 30 Tab 5 [id number] 101 Taking 03/03 00:00 :00 Warfarin Sodium 1mg Tablet null null 1 30 Tab 5 [id number] 101 Taking 12/04 00:00 :00 Warfarin Sodium 1mg Tablet null null 1 30 Tab 5 [id number] 101 Continue 11/17 00:00 :00 Warfarin Sodium 6 MG Tablet null null 1 30 Tab 4 [id number] 101 P Taking 10/13 00:00 :00 Warfarin Sodium 6 MG Tablet null null 1 30 Tab 4 [id number] 101 P Taking 08/12 00:00 :00 Warfarin Sodium 6 MG Tablet null null 1 30 Tab 4 [id number] 101 P Start 08/11 00:00 :00 Warfarin Sodium 6 MG Tablet 08/12/2015 00:00:00 null 1 30 5 [id number] 301 P Start 08/11 00:00 :00 Warfarin Sodium 5 MG Tablet null null 0 [id number] 101 Stop 08/11 00:00 :00 Warfarin Sodium 5 MG Tablet null null 1 30 1 [id number] 101 Taking 06/13 00:00 :00 Warfarin Sodium 5 MG Tablet null null 1 30 1 [id number] 101 Continue 06/02 00:00 :00 Warfarin Sodium 1mg Tablet null null 1 30 1 Taking 05/07 00:00 :00 Warfarin Sodium 1mg Tablet null null 1 30 1 Continue 05/06 00:00 :00 Warfarin Sodium 5MG Tablet null null 1 Taking 03/06 00:00 :00 Warfarin Sodium 5MG Tablet null null 1 Taking 01/02 00:00 :00 Warfarin Sodium 5MG Tablet null null 1 Taking 10/29 00:00 :00 Warfarin Sodium 5MG Tablet null null 1 Taking 09/29 00:00 :00 Warfarin Sodium 5MG Tablet null null 1 Taking 07/28 00:00 :00 Warfarin Sodium 5MG Tablet null null 1 Taking 06/03 00:00 :00 Warfarin Sodium 5MG Tablet null null 1 Taking 04/07 00:00 :00 Warfarin Sodium 5MG Tablet null null 1 P Taking 02/21 00:00 :00 Warfarin Sodium 5MG Tablet null null 1 P Continue 02/21 00:00 :00 Warfarin Sodium 5MG Tablet null null 1 30 Tablet 4 Taking 02/04 00:00 :00 Warfarin Sodium 5MG Tablet null null 1 30 Tablet 4 Taking 01/07 00:00 :00 Warfarin Sodium 5MG Tablet null null 1 30 Tablet 4 Taking 12/16 00:00 :00 Warfarin Sodium 5MG Tablet null null 1 30 Tablet 4 P Start 11/22 00:00 :00 Warfarin Sodium 5MG Tablet null null 1 30 4 P Taking 10/30 00:00 :00 Warfarin Sodium 5MG Tablet null null 1 30 4 P Taking 10/22 00:00 :00 Warfarin Sodium 5MG Tablet null null 1 30 4 Taking 08/05 00:00 :00 Warfarin Sodium 5MG Tablet null null 1 30 4 P Start 08/01 00:00 :00 Warfarin Sodium 5 Tablet null null 1 30 4 Taking 06/27 00:00 :00 Warfarin Sodium 5 Tablet null null 1 30 4 P Taking 06/04 00:00 :00 Warfarin Sodium 5 Tablet null null 1 30 4 P Taking 05/03 00:00 :00 Warfarin Sodium 5 Tablet null null 1 30 4 Taking 04/30 00:00 :00 Warfarin Sodium 5 Tablet null null 1 30 4 P Taking 04/17 00:00 :00 Warfarin Sodium 5 Tablet null null 1 30 4 Taking 03/28 00:00 :00 Warfarin Sodium 5 Tablet null null 1 30 4 Taking 03/05 00:00 :00 Warfarin Sodium 5 Tablet null null 1 30 4 P Taking 02/06 00:00 :00 Warfarin Sodium 5 Tablet null null 1 30 4 Taking 01/15 00:00 :00 Warfarin Sodium 5 Tablet null null 1 30 4 P Refill 01/15 00:00 :00 Warfarin Sodium 5 Tablet null null 1 30 4 P Taking 01/11 00:00 :00 Warfarin Sodium 5 Tablet null null 1 30 4 P Taking 12/26 00:00 :00 Warfarin Sodium 5 Tablet null null 1 30 4 Taking 12/03 00:00 :00 Warfarin Sodium 5 Tablet null null 1 30 4 P Taking 11/14 00:00 :00 Warfarin Sodium 5 Tablet null null 1 30 4 P Taking 10/31 00:00 :00 Warfarin Sodium 5 Tablet null null 1 30 4 Taking 10/24 00:00 :00 Warfarin Sodium 5 Tablet null null 1 30 4 Taking 10/23 00:00 :00 Warfarin Sodium 5 Tablet null null 1 30 4 P Taking 10/18 00:00 :00 Warfarin Sodium 5 Tablet null null 1 30 4 P Taking 10/15 00:00 :00 Warfarin Sodium 5 Tablet null null 1 30 4 Taking 07/16 00:00 :00 Warfarin Sodium 5 Tablet null null 1 30 4 P Refill 07/10 00:00 :00 Warfarin Sodium 1 MG Tablet null null 1 30 [id number] 110 P Taking 07/05 00:00 :00 Xifaxan 550 MG Tablet null null 1 60 [id number] 302 Taking 11/26 00:00 :00 Xifaxan 550 MG Tablet null null 1 60 [id number] 302 Taking 04/02 00:00 :00 Xifaxan 550 MG Tablet null null 1 60 [id number] 302 Taking 02/26 00:00 :00 Xifaxan 550 MG Tablet null null 1 60 [id number] 302 Taking 01/19 00:00 :00 Xifaxan 550 MG Tablet null null 1 60 [id number] 302 Taking 12/07 00:00 :00 Xifaxan 550 MG Tablet null null 1 60 [id number] 302 Taking 11/04 00:00 :00 Xifaxan 550 MG Tablet null null 1 60 [id number] 302 Taking 06/16 00:00 :00 Xifaxan 550 MG Tablet null null 1 60 [id number] 302 Taking 02/19 00:00 :00 Xifaxan 550 MG Tablet null null 1 60 [id number] 302 Taking 11/14 00:00 :00 Zaditor 0.025 % Solution 10/18/2012 00:00:00 null 1 5 ml 0 [id number] 641 P Taking 10/31 00:00 :00 Zaditor 0.025 % Solution 10/18/2012 00:00:00 null 1 5 ml 0 [id number] 641 Taking 10/24 00:00 :00 Zaditor 0.025 % Solution 10/18/2012 00:00:00 null 1 5 ml 0 [id number] 641 Taking 10/23 00:00 :00 Zaditor 0.025 % Solution 10/18/2012 00:00:00 null 1 5 ml 0 [id number] 641 P Taking 10/18 00:00 :00 Zaditor 0.025 % Solution 10/18/2012 00:00:00 null 1 5 ml 0 [id number] 641 Start 10/30 00:00 :00 Zithromax 250 MG Tablet 10/30/2013 00:00:00 null 1 10 [id number] 030 Start 06/16 00:00 :00 Zithromax Z-Kirt 250 MG Tablet 06/16/2020 00:00:00 null 1 1 0 [id number] 075 P Start OBJECTIVE DATA No information PHYSICAL EXAMINATION No information TREATMENT PLAN No information PROBLEMS No information RESULTS No information REVIEW OF SYSTEMS No information SUBJECTIVE DATA No information VITAL SIGNS No information
[2024-04-08 16:30] LABS: INR 0.96 (0.9-1.1); Prothrombin Time 10.4 seconds (10.1-12.5)
[2024-04-08 16:40] LABS: Basophils % 0.7 % (0.1-2.0); Eosinophils # 0.1 K/mm3 (0.0-0.4); Hematocrit 38.9 % (37.0-47.0); Hemoglobin 11.6 g/dL (12.2-16.2); Lymphocytes # 0.6 K/mm3 (0.7-4.5); Lymphocytes % 9.9 % (10-50); Mean Corpuscular HGB Conc 29.8 g/dL (31.8-35.4); Mean Corpuscular Hemoglobin 31.2 pg (27.0-31.2); Mean Corpuscular Volume 104.8 fl (81-99); Mean Platelet Volume 9.9 fl (7.4-10.4); Monocytes # 0.3 K/mm3 (0.1-1.0); Monocytes % 4.6 % (1.7-9.3); Neutrophils # 4.8 K/mm3 (1.8-7.8); Neutrophils % 82.8 % (37.0-80.0); Platelet Count 58 K/mm3 (142-424); Red Blood Count 3.71 M/mm3 (4.20-5.40); Red Cell Distribution Width 16.9 % (11.5-17.5); White Blood Count 5.8 K/mm3 (4.8-10.8)
[2024-04-08] MEDS: ACETAMINOPHEN 500MG TAB 1000 MG PO (16:51)
[2024-04-08 16:53] LABS: Chloride 103 mmol/L (98-107)
[2024-04-08 16:54] LABS: Potassium 4.3 mmoL/L (3.5-5.1); Sodium 136 mmol/L (136-145)
[2024-04-08 16:56] LABS: Alanine Aminotransferase 52 U/L (12-78); Aspartate Amino Transferase 42 U/L (14-36); Blood Urea Nitrogen 43 mg/dl (7-17); Creatinine Clearance Estimated 7 mL/min (50-200); Estimated Glomerular Filt Rate 4 ml/min (>60); GFR (African American) 5 ML/MIN (>60)
[2024-04-08 16:57] LABS: Albumin Level 3.9 g/dl (3.5-5.0); Albumin/Globulin Ratio 1.4 (1.1-1.8); Alkaline Phosphatase 147 U/L (38-126); Anion Gap 12.3 mEq/L (5-15); Bilirubin,Total 1.1 mg/dl (0.2-1.3); Calcium 9.4 mg/dl (8.4-10.2); Carbon Dioxide 25 mmol/L (22.0-30.0); Globulin 2.8 g/dL (1.3-3.2); Glucose 174 mg/dl (74-100); Magnesium 2.4 mg/dl (1.6-2.3); Total Protein,Serum 6.7 g/dl (6.3-8.2)
[2024-04-08] MEDS: IPRATROPIUM/ALBUTEROL 3 ML NEB 6 ML IH (16:57)
[2024-04-08 17:09] LABS: Troponin I 0.02 ng/ml (0.00-0.034)
--- NOTE | 2024-04-08 17:09 | PC.NURSE ---
Gosia from LAB called and reported critical creatinine of 9.4. repeated and confirmed. Dr. Atkins made aware.
[2024-04-08] MEDS: SODIUM CHLORIDE 0.9% 10ML SYR (RAD ONLY) 10 ML IV (17:20)
[2024-04-08] MEDS: IOPAMIDOL-370 (76%);100ML BOTTLE 70 ML IV (17:20)
[2024-04-08] MEDS: 0.9 % SODIUM CHLORIDE 50 ML VIAL IV (17:20)
--- NOTE | 2024-04-08 17:29 | HMH.ITSTN ---
GFR results overrode by ER physician on a risk vs benefit situation. Patient having dialysis tomorrow.
--- NOTE | 2024-04-08 18:36 | PC.NURSE ---
Called [facility] for transfer request for [facility].
[2024-04-08 20:26] LABS: Troponin I 0.02 ng/ml (0.00-0.034)
--- NOTE | 2024-04-08 21:00 | PC.NURSE ---
report called to Kinjal VALLE at [facility].
== END 2024-04-08 23:09 | disposition short-term general hospital (02) ==
PROVIDERS: Physician Assistant; Emergency Provider Emergency Medicine; PCP Family Medicine
DX: J96.21 Acute and chronic respiratory failure with hypoxia (principal); J81.0 Acute pulmonary edema; E87.70 Fluid overload, unspecified; N18.6 End stage renal disease; I11.0 Hypertensive heart disease with heart failure; I50.9 Heart failure, unspecified; Z99.2 Dependence on renal dialysis; Z95.0 Presence of cardiac pacemaker; Z79.4 Long term (current) use of insulin; E11.22 Type 2 diabetes mellitus with diabetic chronic kidney disease
CPT/HCPCS: 71275; 80053; 83735; 84484; 85025; 85610; 93005; 99285; J7620; Q9967

== ENCOUNTER 2024-05-06 12:46 | Emergency (ER) | payer MEDICARE, SELFPAY ==
[2024-05-06] VITALS (9 sets, daily range): BP systolic 107–160; BP diastolic 74–117; PULSE 74–83; RESP 20; TEMP 37.1; O2SAT 96–100; BMI 29.0
--- NOTE | 2024-05-06 12:46 | ECG_ITS ---
APPROVED REPORT Exam: Resting ECG HR:86 bpm ECG Measurements Heart Rate 86 AXES ND 214 P 66 QRSd 124 QRS -60 QT 388 T 94 QTc 431 Conclusion SINUS RHYTHM WITH FIRST DEGREE AV BLOCK WITH FREQUENT SUPRAVENTRICULAR PREMATURE COMPLEXES LEFT ANTERIOR FASCICULAR BLOCK [QRS AXIS <= -45, QR IN I, RS IN II] POSSIBLE ANTERIOR MYOCARDIAL INFARCTION , OF INDETERMINATE AGE [30 ms Q WAVE IN V3/V4, OR R < 0.2 mV IN V4] ABNORMAL ECG Electronically signed by : CATE HOLLAND, 05/06/2024 16:56:32
--- NOTE | 2024-05-06 13:10 | XR_ITS ---
FINAL REPORT CLINICAL HISTORY: Precordial chest pain COMPARISON: 02/21/2024 FINDINGS: There is pulmonary vascular congestion. There is interstitial prominence likely related to mild edema. There is bilateral atelectasis. Cardiomegaly is noted. IMPRESSION: Findings suggestive of mild CHF. Reviewed, Interpreted and Dictated by Brenda Fischer MD Transcribed by Olga Lidia Gaxiola Authenticated and [facility]
[2024-05-06 13:25] LABS: Coronavirus 19, PCR Not Detected (NotDetected); Influenza A, PCR Not Detected (NotDetected); Influenza B, PCR Not Detected (NotDetected)
--- NOTE | 2024-05-06 13:29 | ED_ITS ---
Discharge Plan Disposition Patient Disposition: Xfer Short-Term Hosp Prescriptions Prescriptions: No Action atorvastatin 20 mg tablet 20 mg PO HS Qty: 30 5RF prednisone 10 mg tablet 5 mg PO DAILY acetaminophen [Tylenol] 325 mg capsule 325 mg PO QID PRN (Reason: Mild Pain) insulin aspart U-100 100 unit/mL (3 mL) insulin pen 4 unit SQ ACHS insulin glargine 100 unit/mL (3 mL) insulin pen 6 unit SQ DAILY melatonin 5 mg capsule 5 mg PO HS omeprazole 40 mg capsule,delayed release(DR/EC) 40 mg PO DAILY Patient Comments: TAKE 1 CAPSULE BY MOUTH ONCE DAILY. DO NOT CRUSH OR CHEW furosemide 80 mg tablet 80 mg PO BID Patient Comments: TAKE 1 TABLET BY MOUTH TWICE DAILY bisoprolol fumarate 10 mg tablet 10 mg PO DAILY Qty: 31 11RF folic acid 1 MG tablet 1 mg PO DAILY lactulose 10 GM/15 ML solution 20 g PO TID sevelamer carbonate 800 MG tablet 1,600 mg PO TID rifaximin 550 mg tablet 550 mg PO BID albuterol sulfate 90 mcg/actuation HFA aerosol inhaler 4 inh inhalation Q4H PRN (Reason: shortness of breath or wheezing) Qty: 8.5 0RF Rx Instructions: 4 puffs every 4 hours for 48 hours then as needed for shortness of breath or wheezing following pantoprazole 40 mg tablet,delayed release (DR/EC) 40 mg PO BID Patient Comments: TAKE 1 TABLET BY MOUTH TWICE DAILY 30 MINUTES BEFORE BREAKFAST AND DINNER methocarbamol 750 mg tablet 750 mg PO TID 5 Days Qty: 15 0RF Referrals Follow up/Referrals: Provider,Referral, MD [Primary Care Provider] - See instructions Clinical Impressions Clinical Impression: Shortness of breath, Volume overload, Hyperkalemia, Acidosis, End-stage renal disease (ESRD) Discharge ED Provider: Tiarra Atkins HPI General Chief Complaint: Chest Pain Stated Complaint: CP Time Seen by Provider: 05/06/24 13:01 Mode of Arrival: Wheelchair Source of Information: Patient Limitations: No Limitations Description of Symptoms (Recalled from ER Triage Doc. by RN): pt to ed c/o left sided chest pain that has been present since 0500. pt reports the pain is dull in nature. 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 pt reports increased SOA. History of Present Illness HPI narrative: This patient is a 73-year-old female with a history of end-stage renal disease on Monday, , Monday dialysis, sarcoidosis, pulmonary hypertension, liver disease, atrial fibrillation, and CHF presenting to the emergency department for evaluation with concern for shortness of breath. She is also been having some left-sided chest pain that she feels like is around her pacemaker. This is been going on since around 5:00 this morning. She states that she feels like she cannot catch her breath. No calf pain or swelling. She did have dialysis Monday and states she tolerated it well with no issues. No other concerns noted at this time, such as fevers. Related Data Home Medications Medication Instructions Recorded Confirmed folic acid 1 mg tablet 1 mg PO DAILY Supplement 11/29/20 09/11/23 lactulose 10 gram/15 mL oral 20 g PO TID liver 11/29/20 09/11/23 solution sevelamer carbonate 800 mg tablet 1,600 mg PO TID Kidney failure 11/29/20 09/11/23 acetaminophen 325 mg capsule 325 mg PO QID PRN Mild Pain 03/23/21 09/11/23 (Tylenol) insulin aspart U-100 100 unit/mL 4 unit SQ ACHS Diabetes 03/23/21 09/11/23 (3 mL) subcutaneous pen insulin glargine 100 unit/mL (3 6 unit SQ DAILY Diabetes 03/23/21 09/11/23 mL) subcutaneous pen melatonin 5 mg capsule 5 mg PO HS Sleep 03/23/21 09/11/23 prednisone 10 mg tablet 5 mg PO DAILY . 03/23/21 09/11/23 rifaximin 550 mg tablet 550 mg PO BID unk 03/23/21 09/11/23 furosemide 80 mg tablet 80 mg PO BID Fluid 10/12/22 09/11/23 omeprazole 40 mg capsule,delayed 40 mg PO DAILY GERD 10/12/22 09/11/23 release pantoprazole 40 mg tablet,delayed 40 mg PO BID 09/11/23 09/11/23 release Previous Rx's Medication Instructions Recorded atorvastatin 20 mg tablet 20 mg PO HS Cholesterol #30 tabs 10/26/22 albuterol sulfate 90 mcg/actuation 4 inh inhalation Q4H PRN shortness 07/25/23 aerosol inhaler of breath or wheezing #8.5 grams bisoprolol fumarate 10 mg tablet 10 mg PO DAILY #31 tabs 09/18/23 methocarbamol 750 mg tablet 750 mg PO TID 5 days #15 tabs 01/10/24 Allergies Allergy/AdvReac Type Severity Reaction Status Date / Time ceftriaxone Allergy Severe Anaphylaxis Verified 07/27/23 01:46 [facility] Disclaimer: The information contained in this section may have been updated after the patient was seen, as this information can be updated by other users. Medical History Diabetes Abnormal result of cardiovascular function study Typical angina Automatic implantable cardioverter-defibrillator in situ Chronic a-fib Surgical History History of cardiac cath Social History Smoking Status: Never smoker second hand exposure: No alcohol intake: never substance use type: other current occupational status: disabled Travel in the last 8 weeks: None household members: spouse housing: house current occupational exposures/hazards: No caffeine: No ROS Obtained: Yes All systems reviewed & no additional complaints except as documented Physical Exam General General appearance: alert and obese Comment: Mild respiratory distress with increased work of breathing Head Head exam: atraumatic and normocephalic Eye Eye exam: Present normal appearance, PERRL and EOMI ENT ENT exam: Present normal exam, normal oropharynx, mucous membranes moist and normal external ear exam Neck Neck exam: Present normal inspection, full ROM and trachea midline; Absent tenderness Chest Chest inspection: Present normal inspection and symmetric chest wall rise; Absent tenderness Respiratory Respiratory exam: Present respiratory distress (Tachypnea and accessory muscle use with pursed lip breathing), prolonged expiratory phase and other (Bilateral crackles); Absent stridor or accessory muscle use Cardiovascular Cardiovascular exam: Present normal rhythm and tachycardia Abdominal Exam Abdominal exam: Present soft; Absent distention, tenderness or guarding Extremities Exam Extremities exam: Present normal inspection, full ROM and normal capillary refill; Absent tenderness or edema Back Exam Back exam: Present normal inspection and full ROM; Absent tenderness Neurological Exam Neurological exam: Present alert, oriented X3, CN II-XII intact and normal gait; Absent motor sensory deficit Psychiatric Psychiatric exam: Present normal affect and normal mood Skin Skin exam: Present warm and dry HEART Score HEART Score HEART Score assessment performed?: Yes History (anamnesis): Moderately suspicious ECG: Non-specific disturbance Age: >65 years Risk factors: 3 or more risk factors Troponin: </= normal limit HEART Score: 6 Critical Care Critical Care Time Critical Care Time: No Medical Decision Making Medical Records Medical records reviewed: Yes I reviewed the patient's medical records. Rudy Inquiry Pt receiving controlled substance: No Vital Signs Vital Signs: 05/06/24 13:01 05/06/24 13:04 05/06/24 14:00 Temperature 98.7 F Temperature Source Oral Pulse Rate 77 76 Pulse Rate [Left Radial] 82 Respiratory Rate 20 Blood Pressure 160/116 H Blood Pressure [Right Arm] 160/117 H Blood Pressure Mean Blood Pressure Mean [Right Arm] 131 02 Sat by Pulse Oximetry 99 100 100 Oxygen Delivery Method Room Air Room Air Room Air 05/06/24 14:30 05/06/24 15:11 Temperature Temperature Source Pulse Rate 80 83 Pulse Rate [Left Radial] Respiratory Rate Blood Pressure 119/90 Blood Pressure [Right Arm] Blood Pressure Mean 99 Blood Pressure Mean [Right Arm] 02 Sat by Pulse Oximetry 99 100 Oxygen Delivery Method Room Air Room Air Lab Data Labs: Lab Results 05/06/24 13:18: SARS-CoV-2 (PCR) Not detected, Influenza A Untype (PCR) Not detected, Influenza Type B (PCR) Not detected 05/06/24 15:06: WBC 5.9, RBC 3.67 L, Hgb 11.6 L, Hct 36.2 L, MCV 98.6, MCH 31.6 H, MCHC 32.0, RDW 17.0, Plt Count 137 L, MPV 8.5, Neut % (Auto) 79.0, Lymph % (Auto) 13.2, Ballard % (Auto) 6.3, Eos % (Auto) 1.1, Baso % (Auto) 0.4, Neut # (Auto) 4.7, Lymph # (Auto) 0.8, Ballard # (Auto) 0.4, Eos # (Auto) 0.1, Baso # (Auto) 0.0, D-Dimer 0.72 H, Sodium 141, Potassium 5.4 H, Chloride 104, Carbon Dioxide 29, Anion Gap 13.4, BUN 40 H, Creatinine 8.50 H, Estimated Creat Clear 8, Estimated GFR 5 L*, Est GFR ( Amer) 6 L*, Glucose 141 H, Calcium 9.4, Total Bilirubin 1.0, AST 43 H, ALT 48, Alkaline Phosphatase 214 H, Troponin I 0.02, NT-Pro-B Natriuret Pep 61887 H, Total Protein 7.6, Albumin 4.3, Globulin 3.3 H, Albumin/Globulin Ratio 1.3 05/06/24 15:15: VBG pH 7.30 L, VBG pCO2 60.9 H, VBG pO2 38.7, VBG HCO3 29.3, VBG Total CO2 31.2 H, VBG O2 Saturation 68.5, VBG Base Excess 2.9 H, VBG Lactic Acid 1.9 05/06/24 15:06 05/06/24 15:06 Response Orders (Tests/Meds): ORDERS Category Date Time Status CXR 2 view (NOT portable) [XR chest 2V] Stat Exams 05/06/24 13:10 Completed BNP [NT Pro Brain Natriuretic Pep.] Stat Lab 05/06/24 15:06 Completed CBC w/Auto Diff [Complete Blood Count Auto Diff] Stat Lab 05/06/24 15:06 Completed CMP [Comprehensive Metabolic Panel] Stat Lab 05/06/24 15:06 Completed D-Dimer Stat Lab 05/06/24 15:06 Completed Rapid PCR Covid and Flu A/B Stat Lab 05/06/24 13:18 Completed Trop I [Troponin I] Stat Lab 05/06/24 15:06 Completed Troponin I Q3H Lab 05/06/24 16:15 Ordered Troponin I Q3H Lab 05/06/24 19:15 Ordered VBG [Venous Blood Gas] Stat RT 05/06/24 15:15 Completed ECG Data Tracing #1: Attestation: I reviewed this ECG and interpreted as documented below: ECG Narrative: Normal sinus rhythm with a ventricular rate of 86 bpm. Left anterior fascicular block noted. No acute STEMI. ECG initial impression date: 05/06/24 ECG initial impression time: 12:48 MDM Narrative Medical Decision Narrative: In summary, this patient is a 73-year-old female presenting to the Emergency Department for evaluation of chest pain and shortness of breath. Differential diagnoses considered include but are not limited to ACS, pneumonia, volume overload, dysrhythmia, respiratory failure. Ruling out the most morbid conditions drove assessment. It should be noted patient's history includes extensive past medical history including ESRD on dialysis as per HPI which is likely not at goal therapy. This complicates all aspects of care by increasing patient's risk for morbidity. I reviewed patient's past medical records and noted previous evaluations for respiratory failure and pneumonia in the past. On exam, the patient is in mild respiratory distress with increased work of breathing and pursed lip breathing. She has findings concerning for volume overload on clinical exam. Workup included lab evaluation as well as chest x- ray and EKG. Patient has no significant leukocytosis. VBG demonstrates a mild respiratory acidosis. Patient has mild hyperkalemia troponin negative. Significant elevated BNP, which is of course unreliable in the setting of dialysis. I independently interpreted x-ray prior to the radiologist read and noted concerns for volume overload. Please see their read for final interpretation. Patient was placed on supplemental oxygen for her work of breathing. Ultimately, I feel she would benefit from dialysis given her evidence of volume overload/pulmonary edema, hyperkalemia, and acidosis. We do not have nephrology here, so I initiated discussions with [facility]. Dr. Lowery accepted the patient to [facility] via transfer center. Patient transported in stable condition for evaluation and management. Family updated to plan of care.
--- NOTE | 2024-05-06 15:10 | PC.NURSE ---
Venous blood gas sent to lab; thiago kennedy
[2024-05-06 15:17] LABS: Lactate Venous 1.9 mmol/L (0.4-2.0); VBG Base Excess 2.9 mmol/L (-2.4-2.3); VBG HCO3 29.3 mmol/L (23-30); VBG Oxygen Saturation 68.5 % (50-70); VBG PO2 38.7 mmol/L (28-40); VBG Total CO2 31.2 mmol/L (23-27)
[2024-05-06 15:20] LABS: Chloride 104 mmol/L (98-107); Potassium 5.4 mmoL/L (3.5-5.1); Sodium 141 mmol/L (136-145)
[2024-05-06 15:20] LABS: VBG PCO2 60.9 mmol/L (35-51)
[2024-05-06 15:22] LABS: Basophils % 0.4 % (0.1-2.0); Blood Urea Nitrogen 40 mg/dl (7-17); Creatinine Clearance Estimated 8 mL/min (50-200); Eosinophils # 0.1 K/mm3 (0.0-0.4); Eosinophils % 1.1 % (0.1-12.0); Estimated Glomerular Filt Rate 5 ml/min (>60); GFR (African American) 6 ML/MIN (>60); Hematocrit 36.2 % (37.0-47.0); Hemoglobin 11.6 g/dL (12.2-16.2); Lymphocytes # 0.8 K/mm3 (0.7-4.5); Lymphocytes % 13.2 % (10-50); Mean Corpuscular Hemoglobin 31.6 pg (27.0-31.2); Mean Corpuscular Volume 98.6 fl (81-99); Mean Platelet Volume 8.5 fl (7.4-10.4); Monocytes # 0.4 K/mm3 (0.1-1.0); Monocytes % 6.3 % (1.7-9.3); Neutrophils # 4.7 K/mm3 (1.8-7.8); Platelet Count 137 K/mm3 (142-424); Red Blood Count 3.67 M/mm3 (4.20-5.40); White Blood Count 5.9 K/mm3 (4.8-10.8)
[2024-05-06 15:23] LABS: Alanine Aminotransferase 48 U/L (12-78); Albumin Level 4.3 g/dl (3.5-5.0); Albumin/Globulin Ratio 1.3 (1.1-1.8); Alkaline Phosphatase 214 U/L (38-126); Anion Gap 13.4 mEq/L (5-15); Aspartate Amino Transferase 43 U/L (14-36); Calcium 9.4 mg/dl (8.4-10.2); Carbon Dioxide 29 mmol/L (22.0-30.0); Globulin 3.3 g/dL (1.3-3.2); Glucose 141 mg/dl (74-100); Total Protein,Serum 7.6 g/dl (6.3-8.2)
[2024-05-06 15:32] LABS: D-Dimer 0.72 ug/mL (0.0-0.5)
[2024-05-06 15:35] LABS: Troponin I 0.02 ng/ml (0.00-0.034)
[2024-05-06 15:38] LABS: NT Pro Brain Natriuretic Pep. 10700 pg/mL (0-125)
--- NOTE | 2024-05-06 15:41 | PC.NURSE ---
spoke to [facility] center. She advised she would pass along the info to their nurses and give us a call back soon
--- NOTE | 2024-05-06 15:50 | PC.NURSE ---
PT PROVIDED SANDWICH, CHIPS AND DRINK. NO FURTHER NEEDS AT THIS TIME. CALL LIGHT WITHIN REACH
--- NOTE | 2024-05-06 16:26 | PC.NURSE ---
attempted to draw 2nd trop, with no success at this time
--- NOTE | 2024-05-06 16:27 | PC.NURSE ---
Dr. Atkins speaking with Dr. Lowery, with [facility]
--- NOTE | 2024-05-06 17:02 | PC.NURSE ---
[facility] at to transfer patient to [facility]
== END 2024-05-06 17:12 | disposition short-term general hospital (02) ==
PROVIDERS: Emergency Provider Emergency Medicine
DX: R06.02 Shortness of breath (principal); R07.89 Other chest pain; E87.29 Other acidosis; R79.1 Abnormal coagulation profile; E87.5 Hyperkalemia; R79.89 Other specified abnormal findings of blood chemistry; E87.70 Fluid overload, unspecified; D86.9 Sarcoidosis, unspecified; I27.21 Secondary pulmonary arterial hypertension; I48.0 Paroxysmal atrial fibrillation; K76.9 Liver disease, unspecified; Z99.2 Dependence on renal dialysis; Z95.0 Presence of cardiac pacemaker; E11.9 Type 2 diabetes mellitus without complications; Z79.4 Long term (current) use of insulin; I44.4 Left anterior fascicular block
CPT/HCPCS: 71046; 80053; 82803; 83880; 84484; 85025; 85378; 87636; 93005; 99285

== ENCOUNTER 2024-06-03 10:59 | Emergency (ER) | payer MEDICARE, SELFPAY ==
[2024-06-03 11:11] VITALS: BP 153/85; PULSE 71; RESP 22; TEMP 36.7; O2SAT 100; BMI 30.2
[2024-06-03 11:30] VITALS: BP 153/85; PULSE 77; O2SAT 97
--- NOTE | 2024-06-03 11:33 | PC.NURSE ---
Dr. Ogden at [facility] for pt eval
--- NOTE | 2024-06-03 11:40 | XR_ITS ---
FINAL REPORT CLINICAL HISTORY: dyspnea COMPARISON: 05/06/2024 FINDINGS: Mild to moderate cardiomegaly is present. A left subclavian pacemaker is noted. The mediastinum is normal. There are patchy bilateral airspace opacities noted, as well as interstitial appearing opacities, that may represent changes of acute pulmonary edema. There are no pleural effusions. There is no pneumothorax. There is no osseous abnormality. IMPRESSION: Mild to moderate cardiomegaly, with bilateral airspace opacities that may represent acute pulmonary edema. Reviewed, Interpreted and Dictated by Dallin Carpenter MD Transcribed by Trina Cherry Authenticated and [facility]
--- NOTE | 2024-06-03 11:41 | ED_ITS ---
Discharge Plan Disposition Patient Disposition: Home, Self-Care Prescriptions Prescriptions: No Action atorvastatin 20 mg tablet 20 mg PO HS Qty: 30 5RF prednisone 10 mg tablet 5 mg PO DAILY acetaminophen [Tylenol] 325 mg capsule 325 mg PO QID PRN (Reason: Mild Pain) insulin aspart U-100 100 unit/mL (3 mL) insulin pen 4 unit SQ ACHS insulin glargine 100 unit/mL (3 mL) insulin pen 6 unit SQ DAILY melatonin 5 mg capsule 5 mg PO HS omeprazole 40 mg capsule,delayed release(DR/EC) 40 mg PO DAILY Patient Comments: TAKE 1 CAPSULE BY MOUTH ONCE DAILY. DO NOT CRUSH OR CHEW furosemide 80 mg tablet 80 mg PO BID Patient Comments: TAKE 1 TABLET BY MOUTH TWICE DAILY bisoprolol fumarate 10 mg tablet 10 mg PO DAILY Qty: 31 11RF folic acid 1 MG tablet 1 mg PO DAILY lactulose 10 GM/15 ML solution 20 g PO TID sevelamer carbonate 800 MG tablet 1,600 mg PO TID rifaximin 550 mg tablet 550 mg PO BID albuterol sulfate 90 mcg/actuation HFA aerosol inhaler 4 inh inhalation Q4H PRN (Reason: shortness of breath or wheezing) Qty: 8.5 0RF Rx Instructions: 4 puffs every 4 hours for 48 hours then as needed for shortness of breath or wheezing following pantoprazole 40 mg tablet,delayed release (DR/EC) 40 mg PO BID Patient Comments: TAKE 1 TABLET BY MOUTH TWICE DAILY 30 MINUTES BEFORE BREAKFAST AND DINNER methocarbamol 750 mg tablet 750 mg PO TID 5 Days Qty: 15 0RF Referrals Follow up/Referrals: Aldo Juarez MD [Primary Care Provider] - See instructions Activity Restrictions/Add. Instructions Additional Instructions/Restrictions: Your shortness of breath is most likely secondary to the pulmonary edema/fluid that we see in your lungs. This should improve significantly with dialysis tomorrow. I would discuss with them whether or not they need to take off more fluid than normal. Given that you are not significantly volume overloaded, and respiratory distress, or requiring supplemental oxygen we decided that would be safe for you to follow-up outpatient please return with any worsening symptoms or other concerns. No alternative explanation found today. Clinical Impressions Clinical Impression: Dyspnea, ESRD on dialysis, Pulmonary edema, Pulmonary hypertension Print Language Print Language: Serbian Discharge ED Provider: Bozena Ogden General Adult HPI General Chief complaint: Shortness of Breath/Dyspnea Stated complaint: SOA Time Seen by Provider: 06/03/24 11:33 Mode of Arrival: Wheelchair Source of Information: Patient and Relative Limitations: No Limitations Description of Symptoms (Recalled from ER Triage Doc. by RN): Pt. states she has been having shortness of breath since around 4 am. She states she also has some light-headedness. History of Present Illness HPI narrative: Patient is a 73-year-old female presenting today with dyspnea. She has a history of multi system sarcoidosis severe pulmonary hypertension diastolic dysfunction with associated heart failure and stage renal disease and history of V. tach with AICD presenting today with sudden dyspnea that started about 4 AM. She denies any fevers chills cough chest pain worsening edema wheezing etc. Related Data Home Medications ?Medication ?Instructions ?Recorded ?Confirmed folic acid 1 mg tablet 1 mg PO DAILY Supplement 11/29/20 09/11/23 lactulose 10 gram/15 mL oral 20 g PO TID liver 11/29/20 09/11/23 solution sevelamer carbonate 800 mg tablet 1,600 mg PO TID Kidney failure 11/29/20 09/11/23 acetaminophen 325 mg capsule 325 mg PO QID PRN Mild Pain 03/23/21 09/11/23 (Tylenol) insulin aspart U-100 100 unit/mL 4 unit SQ ACHS Diabetes 03/23/21 09/11/23 (3 mL) subcutaneous pen insulin glargine 100 unit/mL (3 6 unit SQ DAILY Diabetes 03/23/21 09/11/23 mL) subcutaneous pen melatonin 5 mg capsule 5 mg PO HS Sleep 03/23/21 09/11/23 prednisone 10 mg tablet 5 mg PO DAILY . 03/23/21 09/11/23 rifaximin 550 mg tablet 550 mg PO BID unk 03/23/21 09/11/23 furosemide 80 mg tablet 80 mg PO BID Fluid 10/12/22 09/11/23 omeprazole 40 mg capsule,delayed 40 mg PO DAILY GERD 10/12/22 09/11/23 release pantoprazole 40 mg tablet,delayed 40 mg PO BID 09/11/23 09/11/23 release Previous Rx's ?Medication ?Instructions ?Recorded atorvastatin 20 mg tablet 20 mg PO HS Cholesterol #30 tabs 10/26/22 albuterol sulfate 90 mcg/actuation 4 inh inhalation Q4H PRN shortness 07/25/23 aerosol inhaler of breath or wheezing #8.5 grams bisoprolol fumarate 10 mg tablet 10 mg PO DAILY #31 tabs 09/18/23 methocarbamol 750 mg tablet 750 mg PO TID 5 days #15 tabs 01/10/24 Allergies Allergy/AdvReac Type Severity Reaction Status Date / Time ceftriaxone Allergy Severe Anaphylaxis Verified 07/27/23 01:46 [facility] Disclaimer: The information contained in this section may have been updated after the patient was seen, as this information can be updated by other users. Medical History (Updated 06/03/24 @ 13:25 by Bozena Ogden MD) Arteriovenous fistula of right upper extremity Diabetes Abnormal result of cardiovascular function study Typical angina Automatic implantable cardioverter-defibrillator in situ Chronic a-fib Surgical History History of cardiac cath Social History Smoking Status: Never smoker second hand exposure: No alcohol intake: never substance use type: other current occupational status: disabled Travel in the last 8 weeks: None household members: spouse housing: house current occupational exposures/hazards: No caffeine: No ROS Obtained: Yes All systems reviewed & no additional complaints except as documented Physical Exam General General appearance: alert and in no apparent distress Respiratory Respiratory exam: Present normal lung sounds bilaterally; Absent respiratory distress Cardiovascular Cardiovascular exam: Present regular rate and normal rhythm Neurological Exam Neurological exam: Present alert and oriented X3 Medical Decision Making Rudy Inquiry Pt receiving controlled substance: No Vital Signs: 06/03/24 11:11 06/03/24 11:30 06/03/24 12:00 Temperature 98.0 F Temperature Source Oral Pulse Rate 77 75 Pulse Rate [Right Brachial] 71 Respiratory Rate 22 Blood Pressure 153/85 H Blood Pressure [Left Arm] 153/85 H Blood Pressure Mean [Left Arm] 107 Blood Pressure Source [Left Arm] Automatic Cuff Blood Pressure Position [Left Arm] Sitting 02 Sat by Pulse Oximetry 100 97 98 Oxygen Delivery Method Room Air Nasal Cannula Nasal Cannula Oxygen Flow Rate (LPM) 3 3 06/03/24 12:30 Temperature Temperature Source Pulse Rate 73 Pulse Rate [Right Brachial] Respiratory Rate Blood Pressure Blood Pressure [Left Arm] Blood Pressure Mean [Left Arm] Blood Pressure Source [Left Arm] Blood Pressure Position [Left Arm] 02 Sat by Pulse Oximetry 100 Oxygen Delivery Method Nasal Cannula Oxygen Flow Rate (LPM) 3 Lab Data Lab results reviewed: Yes I reviewed the patient's lab results. Lab Results 06/03/24 12:09: WBC 7.3, RBC 3.39 L, Hgb 10.4 L, Hct 35.7 L, MCV 105.1 H, MCH 30.8, MCHC 29.3 L, RDW 17.7 H, Plt Count 170, MPV 8.7, Neut % (Auto) 83.7 H, Lymph % (Auto) 10.2, [place] % (Auto) 4.6, Eos % (Auto) 1.0, Baso % (Auto) 0.4, Neut # (Auto) 6.1, Lymph # (Auto) 0.7, [place] # (Auto) 0.3, Eos # (Auto) 0.1, Baso # (Auto) 0.0, D-Dimer 0.83 H, Sodium 140, Potassium 5.2 H, Chloride 103, Carbon Dioxide 31 H, Anion Gap 11.2, BUN 35 H, Creatinine 7.30 H, Estimated Creat Clear 9, Estimated GFR 6 L*, Est GFR ( Amer) 7 L*, Glucose 144 H, Calcium 8.6, Magnesium 2.6 H, Total Bilirubin 1.1, AST 40 H, ALT 39, Alkaline Phosphatase 180 H, Troponin I 0.03, NT-Pro-B Natriuret Pep 46836 H, Total Protein 7.3, Albumin 4.3, Globulin 3.0, Albumin/Globulin Ratio 1.4 06/03/24 12:11: VBG pH 7.28 L, VBG pCO2 53.5 H, VBG pO2 37.7, VBG HCO3 24.7, VBG Total CO2 26.3, VBG O2 Saturation 65.0, VBG Base Excess -2.0, VBG Lactic Acid 1.5 06/03/24 12:33: SARS-CoV-2 (PCR) Not detected, Influenza A Untype (PCR) Not detected, Influenza Type B (PCR) Not detected 06/03/24 12:09 06/03/24 12:09 Orders (Tests/Meds): ORDERS Category Date Time Status CXR --portable [XR chest portable] Stat Exams 06/03/24 11:40 Taken POCUS Point of Care (ER Only) Stat Exams 06/03/24 11:44 Completed BNP [NT Pro Brain Natriuretic Pep.] Stat Lab 06/03/24 12:09 Completed CBC w/Auto Diff [Complete Blood Count Auto Diff] Stat Lab 06/03/24 12:09 Completed CMP [Comprehensive Metabolic Panel] Stat Lab 06/03/24 12:09 Completed D-Dimer Stat Lab 06/03/24 12:09 Completed Magnesium Stat Lab 06/03/24 12:09 Completed Rapid PCR Covid and Flu A/B Stat Lab 06/03/24 12:33 Completed Trop I [Troponin I] Stat Lab 06/03/24 12:09 Completed Troponin I Q3H Lab 06/03/24 14:45 Ordered Troponin I Q3H Lab 06/03/24 17:45 Ordered Venous Blood Gas Stat RT 06/03/24 12:11 Completed Medical Decision Narrative: Patient is a 73-year-old with an extensive cardiopulmonary history presented with dyspnea. Differential includes worsening sarcoidosis, pulmonary hypertension, heart failure exacerbation, pulmonary embolism, pneumonia, ACS etc. Broad workup is pending will do a bedside ultrasound also of her heart and lungs which may tailor therapy. Additionally we will get her AICD interrogated. Cardiac ultrasound performed which shows normal EF no significant pericardial effusion but does have pulmonary edema on the right side. Working diagnosis at the moment is most likely pulmonary edema secondary to her known pulmonary hypertension. Reassessment 1:26 PM chest x-ray performed which I first interpreted which shows bilateral hilar fullness consistent with sarcoidosis but is well shows pulmonary edema bilaterally. Likely has small pleural effusions as well. Labs otherwise as would be expected she has significant elevated BNP creatinine is 7 she is on dialysis Monday. She has dialysis tomorrow. I offered for her to be admitted in the hospital for diuresis which most likely her symptoms are secondary to pulmonary hypertension and associated pleural effusions and pulmonary edema. However she states that she is at her dry weight has not gained any significant mount of weight recently and has dialysis tomorrow. 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 No signs or symptoms clinically of pneumonia D-dimer less than [address] PE based on years criteria. Troponin undetectably low is not consistent with myocardial injury or acute coronary syndrome. Overall patient is stable for outpatient follow-up and will return with any significant worsening of her symptoms. She was also negative for COVID and flu and does not have any other signs or symptoms of infection. Procedures Miscellaneous Procedure Procedure Performed: Ultrasound-guided IV Indication difficult IV access Patient was placed in the supine position was prepped and draped in sterile fashion. 20-gauge 48 mm Angiocath was used with axial and long axis planes on the ultrasound under direct visual guidance. The tip of the needle was observed being inserted directly into the vein itself and catheter was advanced under direct guidance. No significant complications. Limited cardiac ultrasound Indication: Dyspnea Identified structures: The heart was visualized in the parasternal long axis, parastenal short axis, apical four chamber and subxyphiod views. The IVC was visualized in the short axis and long axis at its entry into the right atrium. Findings: Normal EF no obvious pericardial effusion IVC is 2 to 3 cm with normal respirophasic variation Impression: Unremarkable emergency limited cardiac ultrasound Images were saved to permanent archive The study was technically adequate CPT: 60609-59 This study was performed by nh, and I personally interpreted all images/videos. Based on my clinical judgement, these images were adequate and did not necessitate further imaging. Limited lung ultrasound A focused ultrasound exam of the pleural spaces was performed to evaluate for pneumothorax, pulmonary edema, pleural effusion and/or consolidation. The ultrasound was performed with the following indications, as noted in the H&P: Dyspnea Identified structures: Right and left thoracic cavities were examined. Findings: Lungs sliding were present bilaterally there were B-lines in anterior lung fournier on the right side but on the left no significant pleural effusions noted but lateral lung fournier were difficult to ascertain given patient's body habitus and positioning Impression: Right-sided B-lines consistent with pulmonary edema Images were saved to permanent archive The study was technically adequate CPT 92249-11 This study was performed by nh, and I personally interpreted all images/videos. Based on my clinical judgement, these images were adequate and did not necessitate further imaging. Critical Care Critical Care Time Critical Care Time: No
[2024-06-03 12:00] VITALS: PULSE 75; O2SAT 98
--- NOTE | 2024-06-03 12:07 | PC.NURSE ---
Dr. Ogden at bedside for IV guided IV and POCUS
--- NOTE | 2024-06-03 12:08 | PC.NURSE ---
Dr. Ogden placed US guided IV, left upper arm
--- NOTE | 2024-06-03 12:11 | PC.NURSE ---
Dr. Ogden at bedside POCUS
[2024-06-03 12:19] LABS: Lactate Venous 1.5 mmol/L (0.4-2.0); VBG HCO3 24.7 mmol/L (23-30); VBG PH 7.28 mmol/L (7.31-7.41); VBG PO2 37.7 mmol/L (28-40); VBG Total CO2 26.3 mmol/L (23-27)
--- NOTE | 2024-06-03 12:19 | ECG_ITS ---
APPROVED REPORT Exam: Resting ECG HR:68 bpm ECG Measurements Heart Rate 68 AXES MS 242 P -4 QRSd 138 QRS -43 QT 456 T 74 QTc 473 Conclusion AV paced rhythm 68 beats a minute left axis deviation, Shubham's negative Electronically signed by : MARVEL HAYNES, 06/04/2024 14:13:47
[2024-06-03 12:20] LABS: Basophils % 0.4 % (0.1-2.0); Eosinophils # 0.1 K/mm3 (0.0-0.4); Hematocrit 35.7 % (37.0-47.0); Hemoglobin 10.4 g/dL (12.2-16.2); Lymphocytes # 0.7 K/mm3 (0.7-4.5); Lymphocytes % 10.2 % (10-50); Mean Corpuscular HGB Conc 29.3 g/dL (31.8-35.4); Mean Corpuscular Hemoglobin 30.8 pg (27.0-31.2); Mean Corpuscular Volume 105.1 fl (81-99); Mean Platelet Volume 8.7 fl (7.4-10.4); Monocytes # 0.3 K/mm3 (0.1-1.0); Monocytes % 4.6 % (1.7-9.3); Neutrophils # 6.1 K/mm3 (1.8-7.8); Neutrophils % 83.7 % (37.0-80.0); Platelet Count 170 K/mm3 (142-424); Red Blood Count 3.39 M/mm3 (4.20-5.40); Red Cell Distribution Width 17.7 % (11.5-17.5); White Blood Count 7.3 K/mm3 (4.8-10.8)
[2024-06-03 12:22] LABS: Albumin Level 4.3 g/dl (3.5-5.0); Chloride 103 mmol/L (98-107)
[2024-06-03 12:23] LABS: VBG PCO2 53.5 mmol/L (35-51)
[2024-06-03 12:23] LABS: Potassium 5.2 mmoL/L (3.5-5.1); Sodium 140 mmol/L (136-145)
[2024-06-03 12:25] LABS: Anion Gap 11.2 mEq/L (5-15); Blood Urea Nitrogen 35 mg/dl (7-17); Carbon Dioxide 31 mmol/L (22.0-30.0); Creatinine Clearance Estimated 9 mL/min (50-200); Estimated Glomerular Filt Rate 6 ml/min (>60); GFR (African American) 7 ML/MIN (>60)
[2024-06-03 12:26] LABS: Alanine Aminotransferase 39 U/L (12-78); Albumin/Globulin Ratio 1.4 (1.1-1.8); Alkaline Phosphatase 180 U/L (38-126); Aspartate Amino Transferase 40 U/L (14-36); Bilirubin,Total 1.1 mg/dl (0.2-1.3); Calcium 8.6 mg/dl (8.4-10.2); Glucose 144 mg/dl (74-100); Magnesium 2.6 mg/dl (1.6-2.3); Total Protein,Serum 7.3 g/dl (6.3-8.2)
--- NOTE | 2024-06-03 12:28 | PC.NURSE ---
Veronica Buckner RN and Ander Camarena at bedside to interrogate pacemaker.
[2024-06-03 12:30] VITALS: PULSE 73; O2SAT 100
--- NOTE | 2024-06-03 12:30 | PC.NURSE ---
Dr. Ogden notified of critical creatine and VBG results
[2024-06-03 12:35] LABS: D-Dimer 0.83 ug/mL (0.0-0.5)
[2024-06-03 12:35] LABS: Coronavirus 19, PCR Not Detected (NotDetected); Influenza A, PCR Not Detected (NotDetected); Influenza B, PCR Not Detected (NotDetected)
[2024-06-03 12:36] LABS: NT Pro Brain Natriuretic Pep. 15300 pg/mL (0-125)
[2024-06-03 12:38] LABS: Troponin I 0.03 ng/ml (0.00-0.034)
--- NOTE | 2024-06-03 13:11 | PC.NURSE ---
Pt. pulled out IV accidentally, aware.
[2024-06-03 13:40] VITALS: BP 144/99; PULSE 70; RESP 22; TEMP 36.4; O2SAT 97
== END 2024-06-03 13:45 | disposition home or self-care (01) ==
PROVIDERS: Emergency Provider Student in an Organized Health Care Education/Training Program; PCP Family Medicine
DX: R06.02 Shortness of breath (principal)
CPT/HCPCS: 71045; 80053; 82803; 83735; 83880; 84484; 85025; 85378; 87636; 93005

== ENCOUNTER 2024-06-03 17:23 | Emergency (ER) | payer MEDICARE, SELFPAY ==
[2024-06-03] VITALS (7 sets, daily range): BP systolic 136–169; BP diastolic 71–107; PULSE 67–91; RESP 20–37; TEMP 36.6–36.8; O2SAT 99–100; BMI 29.9
--- NOTE | 2024-06-03 17:25 | ED_ITS ---
<Statement entered by Tiarra Atkins DO - 06/03/24 23:01> I was consulted by the PORTIA, and we discussed the complexity of the problems being addressed. I approved the treatment and management plan for this patient's care in the emergency department, thus performing a substantive portion of the medical decision making. PROCEDURE NOTE: IV Placement under Ultrasound Guidance Performed by: Tiarra Atkins indication: [IV access required. Multiple attempts at peripheral IV placement were made by the nursing staff without success] Procedure: The area was prepped in the usual fashion. The Left basilic vein was cannulated with a 20 gauge angiocath with use of dynamic ultrasound to identify the vein. The patient tolerated the procedure well. Complications: [none] Tiarra Atkins DO Discharge Plan Disposition Patient Disposition: Xfer Short-Term Hosp Condition: Serious Prescriptions Prescriptions: No Action atorvastatin 20 mg tablet 20 mg PO HS Qty: 30 5RF prednisone 10 mg tablet 5 mg PO DAILY acetaminophen [Tylenol] 325 mg capsule 325 mg PO QID PRN (Reason: Mild Pain) insulin aspart U-100 100 unit/mL (3 mL) insulin pen 4 unit SQ ACHS insulin glargine 100 unit/mL (3 mL) insulin pen 6 unit SQ DAILY melatonin 5 mg capsule 5 mg PO HS omeprazole 40 mg capsule,delayed release(DR/EC) 40 mg PO DAILY Patient Comments: TAKE 1 CAPSULE BY MOUTH ONCE DAILY. DO NOT CRUSH OR CHEW furosemide 80 mg tablet 80 mg PO BID Patient Comments: TAKE 1 TABLET BY MOUTH TWICE DAILY bisoprolol fumarate 10 mg tablet 10 mg PO DAILY Qty: 31 11RF folic acid 1 MG tablet 1 mg PO DAILY lactulose 10 GM/15 ML solution 20 g PO TID sevelamer carbonate 800 MG tablet 1,600 mg PO TID rifaximin 550 mg tablet 550 mg PO BID albuterol sulfate 90 mcg/actuation HFA aerosol inhaler 4 inh inhalation Q4H PRN (Reason: shortness of breath or wheezing) Qty: 8.5 0RF Rx Instructions: 4 puffs every 4 hours for 48 hours then as needed for shortness of breath or wheezing following pantoprazole 40 mg tablet,delayed release (DR/EC) 40 mg PO BID Patient Comments: TAKE 1 TABLET BY MOUTH TWICE DAILY 30 MINUTES BEFORE BREAKFAST AND DINNER methocarbamol 750 mg tablet 750 mg PO TID 5 Days Qty: 15 0RF Clinical Impressions Clinical Impression: Acute and chronic respiratory failure with hypoxia, End-stage renal disease on hemodialysis Acute exacerbation of CHF (congestive heart failure) Qualifiers: Heart failure type: unspecified Qualified Code(s): I50.9 - Heart failure, unspecified Print Language Print Language: Andorran Discharge ED Provider: Tiarra Atkins HPI <LAURA Desai - Last Filed: 06/03/24 18:42> General Chief Complaint: Shortness of Breath/Dyspnea Stated Complaint: breathing problems Time Seen by Provider: 06/03/24 17:23 History of Present Illness HPI narrative: Patient presents for evaluation of dyspnea. Patient was seen and discharged earlier today from our ER for dyspnea. She has a past medical history of pulmonary artery hypertension, end-stage renal disease on hemodialysis Monday and COPD. She is not on chronic oxygen but does have it available at home. Patient was noted during previous visit to have slightly elevated CO2 and acidosis on her venous blood gas and imaging showed pulmonary edema on her plain film chest x-ray. Patient felt like she was at her dry weight and was able to manage herself at home until dialysis tomorrow and thus was discharged as she had no oxygen requirement here. Patient however went home and is continued to have worsening dyspnea. She has put on her oxygen and gave herself a breathing treatment and still is subjectively dyspneic. She received a DuoNeb en route via EMS. Patient arrived on 4 L by nasal cannula and so far has been able to be weaned down to 2 but still has significant increased work of breathing but denies chest pain fever chills hemoptysis hematochezia melena nausea vomiting diarrhea. Related Data Home Medications ?Medication ?Instructions ?Recorded ?Confirmed folic acid 1 mg tablet 1 mg PO DAILY Supplement 11/29/20 09/11/23 lactulose 10 gram/15 mL oral 20 g PO TID liver 11/29/20 09/11/23 solution sevelamer carbonate 800 mg tablet 1,600 mg PO TID Kidney failure 11/29/20 09/11/23 acetaminophen 325 mg capsule 325 mg PO QID PRN Mild Pain 03/23/21 09/11/23 (Tylenol) insulin aspart U-100 100 unit/mL 4 unit SQ ACHS Diabetes 03/23/21 09/11/23 (3 mL) subcutaneous pen insulin glargine 100 unit/mL (3 6 unit SQ DAILY Diabetes 03/23/21 09/11/23 mL) subcutaneous pen melatonin 5 mg capsule 5 mg PO HS Sleep 03/23/21 09/11/23 prednisone 10 mg tablet 5 mg PO DAILY . 03/23/21 09/11/23 rifaximin 550 mg tablet 550 mg PO BID unk 03/23/21 09/11/23 furosemide 80 mg tablet 80 mg PO BID Fluid 10/12/22 09/11/23 omeprazole 40 mg capsule,delayed 40 mg PO DAILY GERD 10/12/22 09/11/23 release pantoprazole 40 mg tablet,delayed 40 mg PO BID 09/11/23 09/11/23 release Previous Rx's ?Medication ?Instructions ?Recorded atorvastatin 20 mg tablet 20 mg PO HS Cholesterol #30 tabs 10/26/22 albuterol sulfate 90 mcg/actuation 4 inh inhalation Q4H PRN shortness 07/25/23 aerosol inhaler of breath or wheezing #8.5 grams bisoprolol fumarate 10 mg tablet 10 mg PO DAILY #31 tabs 09/18/23 methocarbamol 750 mg tablet 750 mg PO TID 5 days #15 tabs 01/10/24 Allergies Allergy/AdvReac Type Severity Reaction Status Date / Time ceftriaxone Allergy Severe Anaphylaxis Verified 07/27/23 01:46 [facility] <LAURA Desai - Last Filed: 06/03/24 18:42> [facility] Disclaimer: The information contained in this section may have been updated after the patient was seen, as this information can be updated by other users. Medical History (Updated 06/03/24 @ 17:28 by LAURA Desai) Arteriovenous fistula of right upper extremity Diabetes Abnormal result of cardiovascular function study Typical angina Automatic implantable cardioverter-defibrillator in situ Chronic a-fib Surgical History History of cardiac cath Social History Smoking Status: Never smoker second hand exposure: No alcohol intake: never substance use type: other current occupational status: disabled Travel in the last 8 weeks: None household members: spouse housing: house current occupational exposures/hazards: No caffeine: No <LAURA Desai - Last Filed: 06/03/24 18:42> ROS Obtained: Yes Systems reviewed as appropriate & no additional complaints except as documented Physical Exam <LAURA Desai - Last Filed: 06/03/24 18:42> General General appearance: alert and in no apparent distress Head Head exam: normal inspection Respiratory Respiratory exam: Present respiratory distress, accessory muscle use and other (Patient has tachypnea and accessory muscle use with diminished breath sounds in the bilateral lungs with some inspiratory and expiratory wheezing in the upper fournier) Cardiovascular Cardiovascular exam: Present regular rate, normal rhythm and normal heart sounds Neurological Exam Neurological exam: Present alert and oriented X3 Lymphatic Lymphatic Findings: no adenopathy HEART Score <LAURA Desai - Last Filed: 06/03/24 18:42> HEART Score HEART Score assessment performed?: No Critical Care <LAURA Desai - Last Filed: 06/03/24 18:42> Critical Care Time Critical Care Time: No Medical Decision Making <LAURA Desai - Last Filed: 06/03/24 18:42> Medical Records Medical records reviewed: Yes I reviewed the patient's medical records. Rudy Inquiry Pt receiving controlled substance: No Vital Signs Vital Signs: 06/03/24 17:23 Temperature 97.8 F Temperature Source Oral Pulse Rate [Left Radial] 78 Respiratory Rate 24 Blood Pressure [Left Arm] 167/94 H Blood Pressure Mean [Left Arm] 118 Blood Pressure Source [Left Arm] Automatic Cuff Blood Pressure Position [Left Arm] Sitting 02 Sat by Pulse Oximetry 100 Oxygen Delivery Method Nasal Cannula Oxygen Flow Rate (LPM) 2 Lab Data Lab results reviewed: Yes I reviewed the patient's lab results. MDM Narrative Medical Decision Narrative: In summary patient is a 73-year-old female who presents to the emergency department for evaluation of acute on chronic hypoxemic respiratory failure. Patient is normotensive with a normal heart rate but significantly tachypneic with increased work of breathing upon arrival, febrile. Physical exam is remarkable for diminished breath sounds in the bilateral bases with rhonchi and wheezes. Differential diagnosis includes CHF exacerbation versus COPD exacerbation versus volume overload etc. Initial workup was considered but patient had complete workup during her previous admission with enough data points that no further workup is required. Initial interventions include continue nebulizing supplemental O2 continuous cardiac monitoring and pulse oximetry. Given that patient has failed attempted home management despite maximal interventions will attempt to transfer the patient to a facility capable of dialysis and a first choice will be [facility] or [facility]. I spoke with both nephrology and the hospitalist at [facility] about patient management and they have both agreed to accept the patient in transfer. The spa receptionist physician is going to be Dr. Gonzales. <Tiarra Atkins, DO - Last Filed: 06/03/24 17:46> Vital Signs Vital Signs: 06/03/24 17:23 Temperature 97.8 F Temperature Source Oral Pulse Rate [Left Radial] 78 Respiratory Rate 24 Blood Pressure [Left Arm] 167/94 H Blood Pressure Mean [Left Arm] 118 Blood Pressure Source [Left Arm] Automatic Cuff Blood Pressure Position [Left Arm] Sitting 02 Sat by Pulse Oximetry 100 Oxygen Delivery Method Nasal Cannula Oxygen Flow Rate (LPM) 2 ECG Data Tracing #1: Attestation: I reviewed this ECG and interpreted as documented below: ECG Narrative: Sinus tachycardia with a ventricular rate of 129 bpm. Left axis deviation. Left bundle branch block. No acute ST changes concerning for STEMI. When compared to prior EKG, patient was paced earlier today with a rate of 68. ECG initial impression date: 06/03/24 ECG initial impression time: 17:39
--- NOTE | 2024-06-03 17:25 | PC.NURSE ---
spoke with [facility]. they advised they will call [facility] to see if we can get a bed
--- NOTE | 2024-06-03 17:35 | ECG_ITS ---
APPROVED REPORT Exam: Resting ECG HR:129 bpm ECG Measurements Heart Rate 129 AXES CO 212 P -40 QRSd 127 QRS -48 QT 335 T 118 QTc 411 Conclusion SINUS TACHYCARDIA WITH FIRST DEGREE AV BLOCK LEFT AXIS DEVIATION [QRS AXIS < -30] LEFT BUNDLE BRANCH BLOCK [120+ ms QRS DURATION, 80+ ms Q/S IN V1/V2, 85+ ms R IN I/aVL/V5/V6] ABNORMAL ECG Electronically signed by : CATE HOLLAND, 06/04/2024 19:16:19
--- NOTE | 2024-06-03 17:41 | PC.NURSE ---
PA spoke with [facility] and they advised they could not take the pt tonight. [facility] advised they would try [facility] now and call back
--- NOTE | 2024-06-03 20:27 | PC.NURSE ---
[facility] informed of need of patient transport to [facility].
--- NOTE | 2024-06-03 20:40 | PC.NURSE ---
Report called to [facility] to LEONARD Fischer
--- NOTE | 2024-06-03 20:46 | PC.NURSE ---
Report to Talha Trial Mgr, [facility]. Transportation arrived to [facility]
== END 2024-06-03 20:58 | disposition short-term general hospital (02) ==
PROVIDERS: Emergency Provider Emergency Medicine; PCP Family Medicine
DX: J96.21 Acute and chronic respiratory failure with hypoxia (principal); N18.6 End stage renal disease; I11.0 Hypertensive heart disease with heart failure; I50.9 Heart failure, unspecified; Z99.2 Dependence on renal dialysis
CPT/HCPCS: 71045; 80053; 82803; 83735; 83880; 84484; 85025; 85378; 87636; 93005; 99285

== ENCOUNTER 2024-06-24 05:46 | Emergency (ER) | payer MEDICARE, SELFPAY ==
[2024-06-24] VITALS (9 sets, daily range): BP systolic 117–163; BP diastolic 75–114; PULSE 70–102; RESP 16–36; TEMP 36.6–36.7; O2SAT 96–100; BMI 29.0
--- NOTE | 2024-06-24 05:41 | ECG_ITS ---
APPROVED REPORT Exam: Resting ECG HR:105 bpm ECG Measurements Heart Rate 105 AXES QRSd 140 QRS -62 QT 368 T 102 QTc 429 Conclusion ATRIAL FIBRILLATION WITH RAPID VENTRICULAR RESPONSE LEFT AXIS DEVIATION [QRS AXIS < -30] LEFT BUNDLE BRANCH BLOCK [120+ ms QRS DURATION, 80+ ms Q/S IN V1/V2, 85+ ms R IN I/aVL/V5/V6] ABNORMAL ECG Similar to previous ECG, no STEMI Electronically signed by : FRANK BROCK, 06/24/2024 07:39:11
--- NOTE | 2024-06-24 05:47 | XR_ITS ---
FINAL REPORT CLINICAL HISTORY: Chest pain and shortness of breath COMPARISON: 05/06/2024 FINDINGS: Two views of the chest were obtained. A left subclavian ICD is present. The heart size is enlarged with pulmonary vascular congestion. The mediastinum is normal. Worsening bibasilar opacities are consistent with worsening atelectasis or pneumonia. There is no pneumothorax. The bony thorax is intact. IMPRESSION: Worsening atelectasis or pneumonia. Cardiomegaly and pulmonary vascular congestion. Reviewed, Interpreted and Dictated by Rangel Burk III, MD Transcribed by Raquel Srivastava Authenticated and [facility]
--- OUTSIDE RECORDS SUMMARY | 2024-06-24 05:58 | XMS_ITS | Continuity of Care Document ---
Author Organization [facility] Phone Care Team Providers Care Third Miller Name Role Phone MARLYS DARLING Surgeon [phone] ELLIOTT GARCIA Primary Care MARLYS DARLING Primary Attending [phone] MARLYS DARLING Unavailable [phone] MARLYS DARLING Admitting ALLERGIES AND ADVERSE REACTIONS ALLERGIES AND ADVERSE REACTIONS Code System Allergy Substance Adverse Reaction Date Reaction (Severity) Comment Status Reported By Updated By 2199 RXNorm CEFTRIAXONE Rash (Severe) Shortness of breath/diffic ulty breathing active [id number] on April 09, 2024 5:38:58 AM UTC ASSESSMENTS End-stage renal disease ; FUNCTIONAL STATUS Note Title Nurse Discharge Note Date Of Service April 10, 2024 6:42:2 4 PM UTC Created By [id number] on April 10, 2024 6:42:24 PM UTC Signed By [id number] on April 10, 2024 6:42:43 PM UTC FUNCTIONAL STATUS Section: Functional Status Comments: Description SNOMED_CT Value Comments Weakness [id number] both MENTAL STATUS Note Title Nurse Discharge Note Date Of Service April 10, 2024 6:42:2 4 PM UTC Created By [id number] on April 10, 2024 6:42:24 PM UTC Signed By [id number] on April 10, 2024 6:42:43 PM UTC MENTAL STATUS Section: Cognitive Status Comments: Description SNOMED_CT Value Comments Oriented x4 [id number] true PROBLEMS PATIENT PROBLEMS Code Description/Comments Category Status Upda gerardo By [id number] End-stage renal disease active H [id number] on April 09, 2024 5:32:16 AM UTC RESULTS Patient: APOLLO OSUNA Date of : [place] 04, 1 953 LABORATORY RESULTS ORDER 900: CBC AUTO W DIFF ( LOINC: 04670-2) ORDER DATE: April 09, 2024 5:35:00 AM UTC Specimen Source: Whole Blood Specimen Type: Whole blood s ample PERFORMING LAB: [address] [id number] Result Comment: Final Result Date: April 09, 2024 6:14:00 AM UTC (TECH: [employer]) LOINC TEST FLAG RESULT REFERENCE RANGE UPDA GERARDO BY 6690-2 Leukocytes [#/volume] in Blood by Automated count N 5.7 10^3/uL 4.5 10^3/uL - 11.5 10^3/uL April 09, 2024 6:14:00 AM UTC (TECH: [employer]) 789-8 Erythrocytes [#/volume] in Blood by Automated count L 3.72 10^6/uL 4.25 10^6/uL - 5.57 10^6/uL April 09, 2024 6:14:00 AM UTC (TECH: [employer]) 718-7 Hemoglobin [Mass/volume] in Blood L 11.4 g/dL 12.0 g/dL - 15.7 g/dL April 09, 2024 6:14:00 AM UTC (TECH: [employer] [facility]) 66340-4 Hematocrit [Volume Fraction] of Blood N 37.1 % 36.0 % - 47.0 % April 09, 2024 6:14:00 AM UTC (TECH: [employer]) 787-2 Erythrocyte mean corpuscular volume [Entitic volume] by Automated count H 99.7 fl 80 fl - 95 fl April 09, 2024 6:14:00 AM UTC (TECH: [employer] [facility] [employer]) 50416-4 Erythrocyte mean corpuscular hemoglobin [Entitic mass] in Blood from Fetus by Automated count N 30.6 pg 27.0 pg - 34.0 pg April 09, 2024 6:14:00 AM UTC (TECH: [employer] [facility]) 04831-9 Erythrocyte mean corpuscular hemoglobin concentration [Mass/volume] in Blood from Fetus by Automated count L 30.7 g/dL 32.0 g/dL - 36.0 g/dL April 09, 2024 6:14:00 AM UTC (TECH: [employer] [facility]) 16333-9 Platelets [#/volume] in Blood L 126 10^3/uL 150 10^3/uL - 450 10^3/uL April 09, 2024 6:14:00 AM UTC (TECH: [employer] [facility]) 11827-5 Erythrocyte distribution width [Ratio] H 15.9 % 12.3 % - 15.1 % April 09, 2024 6:14:00 AM UTC (TECH: [employer] [facility]) 94533-5 Platelet mean volume [Entitic volume] in Blood by Automated count H 11.1 fl 7.4 fl - 10.4 fl April 09, 2024 6:14:00 AM UTC (TECH: [email or web address]) 78978-8 Granulocytes/100 leukocytes in Blood by Automated count H 78.6 % 40 % - 75 % April 09, 2024 6:14:00 AM UTC (TECH: [email or web address]) 736-9 Lymphocytes/100 leukocytes in Blood by Automated count L 12.1 % 15 % - 57 % April 09, 2024 6:14:00 AM UTC (TECH: [employer]) 5905-5 Monocytes/100 leukocytes in Blood by Automated count N 7.9 % 4.0 % - 12.0 % April 09, 2024 6:14:00 AM UTC (TECH: [email or web address]) 713-8 Eosinophils/100 leukocytes in Blood by Automated count N 0.7 % 0.0 % - 4.0 % April 09, 2024 6:14:00 AM UTC (TECH: [email or web address]) 706-2 Basophils/100 leukocytes in Blood by Automated count N 0.2 % 0.0 % - 1.0 % April 09, 2024 6:14:00 AM UTC (TECH: [facility] [facility]) 09896-8 Immature granulocytes [#/volume] in Blood N 0.5 % 0.0 % - 0.8 % April 09 6:14:00 AM UTC (TECH: [email or web address]) 31753-0 Granulocytes [#/volume] in Blood by Automated count N 4.48 10^3/uL April 09, 2024 6:14:00 AM UTC (TECH: [email or web address]) 731-0 Lymphocytes [#/volume] in Blood by Automated count N 0.69 10^3/uL April 09, 2024 6:14:00 AM UTC (TECH: [email or web address]) 742-7 Monocytes [#/volume] in Blood by Automated count N 0.45 10^3/uL April 09, 2024 6:14:00 AM UTC (TECH: [employer] [facility]) 711-2 Eosinophils [#/volume] in Blood by Automated count N 0.04 10^3/uL April 09, 2024 6:14:00 AM UTC (TECH: [employer] [facility]) 704-7 Basophils [#/volume] in Blood by Automated count N 0.01 10^3/uL April 09, 2024 6:14:00 AM UTC (TECH: [facility] [facility]) 00732-6 Immature granulocytes [#/volume] in Blood N 0.03 10^3/uL April 09 6:14:00 AM UT (TECH: [employer] [facility]) 50338-3 Manual differential performed [Presence] in Blood N NO April 09, 2024 6:14:00 AM UT (TECH: [employer] [facility]) ORDER 1000: COMP METABOLIC P AMELIE (LOINC: 75146-1) ORDER DATE: April 09, 2024 5:35:00 AM UT Specimen Source: Serum/Plasm a Specimen Type: Acellular blo od (serum or plasma) specimen PERFORMING LAB: [address] [id number] Result Comment: Final Result Date: April 09, 2024 6:40:00 AM UT (TECH: [employer] [facility]) LOINC TEST FLAG RESULT REFERENCE RANGE UPDA GERARDO BY 2951-2 Sodium [Moles/volume ] in Serum or Plasma N 139 mmol/L 136 mmol/L - 145 mmol/L April 09, 2024 6:40:00 AM UT (TECH: [facility] [facility]) 2823-3 Potassium [Moles/volume] in Serum or Plasma N 4.9 mmol/L 3.5 mmol/L - 5.1 mmol/L April 09, 2024 6:40:00 AM UT (TECH: [facility] [facility]) 2075-0 Chloride [Moles/volu me] in Serum or Plasma N 102 mmol/L 98 mmol/L - 107 mmol/L April 09, 2024 6:40:00 AM UT (TECH: [facility] [facility]) 8-9 Carbon dioxide, tota l [Moles/volume] in Serum or Plasma N 26 mmol/L 21 mmol/L - 32 mmol/L April 09, 2024 6:40:00 AM UTC (TECH: [facility] [facility]) 00099-4 Anion gap 3 in Serum or Plasma N 11.0 April 09, 2024 6:40:00 AM [facility] (TECH: [employer]) 2345-7 Glucose [Mass/volume ] in Serum or Plasma H 170 mg/dL 70 mg/dL - 110 mg/dL April 09, 2024 6:40:00 AM UT (TECH: [employer] [facility]) 3094-0 Urea nitrogen [Mass/volume] in Serum or Plasma H 49 mg/dL 7 mg/dL - 18 mg/dL April 09, 2024 6:40:00 AM UT (TECH: [facility] [facility]) 2160-0 Creatinine [Mass/volume] in Serum or Plasma H 11.1 mg/dL 0.6 mg/dL - 1.0 mg/dL April 09, 2024 6:40:00 AM [facility] (TECH: [employer]) 3097-3 Urea nitrogen/Creatinine [Mass Ratio] in Serum or Plasma L 4.4 Ratio 9 Ratio - 21 Ratio April 09, 2024 6:40:00 AM [facility] ([place]: [employer]) 69837-0 Glomerular filtratio n rate/1.73 sq M.predicted by Creatinine-based formula (MDRD) L 3 mL/min >60 April 09, 2024 6:40:00 AM [facility] ([place]: [employer] [facility]) 2885-2 Protein [Mass/volume ] in Serum or Plasma N 7.1 g/dL 6.4 g/dL - 8.2 g/dL April 09, 2024 6:40:00 AM UT ([place]: [facility]) 1751-7 Albumin [Mass/volume ] in Serum or Plasma N 3.4 g/dL 3.4 g/dL - 5.0 g/dL April 09, 2024 6:40:00 AM UT (TECH: [facility]) 64058-5 Calcium [Mass/volume ] in Serum or Plasma N 9.7 mg/dL 8.5 mg/dL - 10.1 mg/dL April 09, 2024 6:40:00 AM [facility] ([place]: [employer] [facility]) 29923-4 Calcium [Mass/volume ] corrected for total protein in Serum or Plasma H 10.2 mg/dL 8.5 mg/dL - 10.1 mg/dL April 09, 2024 6:40:00 AM UT (TECH: [facility]) 1975-2 Bilirubin.total [Mass/volume] in Serum or Plasma N 1.0 mg/dL 0.4 mg/dL - 1.5 mg/dL April 09, 2024 6:40:00 AM UT (TECH: [facility]) 1920-8 Aspartate aminotransferase [Enzymatic activity/volume] in Serum or Plasma N 26 U/L 15 U/L - 37 U/L April 09, 2024 6:40:00 AM UT (TECH: [facility]) 1742-6 Alanine aminotransferase [Enzymatic activity/volume] in Serum or Plasma N 52 U/L 12 U/L - 78 U/L April 09, 2024 6:40:00 AM UT (TECH: [facility]) 6768-6 Alkaline phosphatase [Enzymatic activity/volume] in Serum or Plasma H 180 U/L 53 U/L - 141 U/L April 09, 2024 6:40:00 AM [facility] (TECH: [employer] [facility]) ORDER 1100: PTT PARTIAL THRO MB TIME (LOINC: 23799-3) ORDER DATE: April 09, 2024 5:35:00 AM [facility] Specimen Source: Plasma Specimen Type: Plasma specim en PERFORMING LAB: [address] [id number] Result Comment: Final Result Date: April 09, 2024 6:21:00 AM [facility] (TECH: [employer] [facility]) LOINC TEST FLAG RESULT [place] [address]-6 Activated partial thromboplastin time (aPTT) in Platelet poor plasma by Coagulation assay L 22.6 seconds 24.5 seconds - 32.8 seconds April 09, 2024 6:21:00 AM [facility] (TECH: [employer] [facility]) ORDER 1200: PT PROTHROMBIN T PAUL W INR (LOINC: 29801-5) ORDER DATE: April 09, 2024 5:35:00 AM UT Specimen Source: Plasma Specimen Type: Plasma specim en PERFORMING LAB: [address] [id number] Result Comment: Final Result Date: April 09, 2024 6:21:00 AM [facility] (TECH: [employer] [facility]) LOINC TEST FLAG RESULT [place] [address]-6 INR in Platelet poor plasma or blood by Coagulation assay N 9.9 seconds 9.1 seconds - 12.0 seconds April 09, 2024 6:21:00 AM [facility] (TECH: [employer] [facility]) 6301-6 INR in Platelet poor plasma by Coagulation assay N 0.90 0.9 - 1.1 April 09, 2024 6:21:00 AM UT (TECH: [facility]) ORDER 1300: THYROID STIMULAT ING HORMONE (LOINC: 3016-3) ORDER DATE: April 09, 2024 5:35:00 AM UT Specimen Source: Serum/Plasm a Specimen Type: Acellular blo od (serum or plasma) specimen PERFORMING LAB: [address] [id number] Result Comment: Final Result Date: April 09, 2024 6:40:00 AM UT (TECH: [facility]) LOINC TEST FLAG RESULT REFERENCE RANGE UPDA GERARDO BY 3016-3 Thyrotropin [Units/volume] in Serum or Plasma N 1.31 mIU/mL 0.34 mIU/mL - 4.80 mIU/mL April 09, 2024 6:40:00 AM UT (TECH: [facility]) ORDER 1400: T4 TOTAL (LOINC: 3026-2) ORDER DATE: April 09, 2024 5:35:00 AM UT Specimen Source: Serum/Plasm a Specimen Type: Acellular blo od (serum or plasma) specimen PERFORMING LAB: [address] [id number] Result Comment: Final Result Date: April 09, 2024 6:40:00 AM UT (TECH: [facility]) LOINC TEST FLAG RESULT REFERENCE RANGE UPDA GERARDO BY 3026-2 Thyroxine (T4) [Mass/volume] in Serum or Plasma N 7.0 ug/dL 4.8 ug/dL - 13.9 ug/dL April 09, 2024 6:40:00 AM UT (TECH: [facility]) ORDER 1500: B-TYPE NATRIURET IC PEPTIDE BNP (LOINC: 55290-1) ORDER DATE: April 09, 2024 5:35:00 AM UT Specimen Source: Whole Blood Specimen Type: Whole blood s ample PERFORMING LAB: [address] [id number] Result Comment: Final Result Date: April 09, 2024 6:38:00 AM UT (TECH: [facility]) LOINC TEST FLAG RESULT [place] [address]-6 Natriuretic peptide B [Mass/volume] in Serum or Plasma H 875.0 pg/mL 0.0 pg/mL - 100 pg/mL April 09, 2024 6:38:00 AM UTC (TECH: [facility]) ORDER 1600: MAGNESIUM (LOINC : 67430-2) ORDER DATE: April 09, 2024 5:35:00 AM UTC Specimen Source: Serum/Plasm a Specimen Type: Acellular blo od (serum or plasma) specimen PERFORMING LAB: [address] [id number] Result Comment: Final Result Date: April 09, 2024 6:40:00 AM UTC (TECH: [facility]) LOINC TEST FLAG RESULT [place] [address]-5 Magnesium [Mass/volume] in Serum or Plasma H 2.6 mg/dL 1.8 mg/dL - 2.4 mg/dL April 09, 2024 6:40:00 AM UTC (TECH: [facility]) ORDER 1701: CBC AUTO NO DIFF HEMOGRAM (LOINC: 11080-1) ORDER DATE: April 09, 2024 5:35:00 AM UTC Specimen Source: Whole Blood Specimen Type: Whole blood s ample PERFORMING LAB: [address] [id number] Result Comment: Final Result Date: April 09, 2024 10:15:00 AM UTC (TECH: LT) LOINC TEST FLAG RESULT REFERENCE RANGE UPDA GERARDO BY 6690-2 Leukocytes [#/volume] in Blood by Automated count N 8.1 10^3/uL 4.5 10^3/uL - 11.5 10^3/uL April 09, 2024 10:15:00 AM UTC (TECH: [facility]) 789-8 Erythrocytes [#/volume] in Blood by Automated count L 3.83 10^6/uL 4.25 10^6/uL - 5.57 10^6/uL April 09, 2024 10:15:00 AM UTC (TECH: LT) 718-7 Hemoglobin [Mass/volume] in Blood L 11.8 g/dL 12.0 g/dL - 15.7 g/dL April 09, 2024 10:15:00 AM UTC (TECH: LT) 36755-7 Hematocrit [Volume Fraction] of Blood N 37.9 % 36.0 % - 47.0 % April 09, 2024 10:15:00 AM UTC (TECH: LT) 787-2 Erythrocyte mean corpuscular volume [Entitic volume] by Automated count H 99.0 fl 80 fl - 95 fl April 09, 2024 10:15:00 AM UTC (TECH: LT) 93779-5 Erythrocyte mean corpuscular hemoglobin [Entitic mass] in Blood from Fetus by Automated count N 30.8 pg 27.0 pg - 34.0 pg April 09, 2024 10:15:00 AM UTC (TECH: LT) 60402-3 Erythrocyte mean corpuscular hemoglobin concentration [Mass/volume] in Blood from Fetus by Automated count L 31.1 g/dL 32.0 g/dL - 36.0 g/dL April 09, 2024 10:15:00 AM UTC (TECH: LT) 60554-1 Platelets [#/volume] in Blood L 149 10^3/uL 150 10^3/uL - 450 10^3/uL April 09, 2024 10:15:00 AM UTC (TECH: LT) 00795-3 Erythrocyte distribution width [Ratio] H 15.9 % 12.3 % - 15.1 % April 09, 2024 10:15:00 AM UTC (TECH: LT) 05632-5 Platelet mean volume [Entitic volume] in Blood by Automated count N 9.8 fl 7.4 fl - 10.4 fl April 09, 2024 10:15:00 AM UTC (TECH: LT) ORDER 1702: CBC AUTO NO DIFF HEMOGRAM (LOINC: 20721-4) ORDER DATE: April 09, 2024 5:35:00 AM UTC Specimen Source: Whole Blood Specimen Type: Whole blood s ample PERFORMING LAB: [address] [id number] Result Comment: Final Result Date: April 10, 2024 10:06:00 AM UTC (TECH: [facility]) LOINC TEST FLAG RESULT REFERENCE RANGE UPDA GERARDO BY 6690-2 Leukocytes [#/volume] in Blood by Automated count L 3.6 10^3/uL 4.5 10^3/uL - 11.5 10^3/uL April 10, 2024 10:06:00 AM UTC (TECH: [facility]) 789-8 Erythrocytes [#/volume] in Blood by Automated count L 3.51 10^6/uL 4.25 10^6/uL - 5.57 10^6/uL April 10, 2024 10:06:00 AM UTC (TECH: [facility]) 718-7 Hemoglobin [Mass/volume] in Blood L 10.7 g/dL 12.0 g/dL - 15.7 g/dL April 10, 2024 10:06:00 AM UTC (TECH: [facility]) 30589-7 Hematocrit [Volume Fraction] of Blood L 35.0 % 36.0 % - 47.0 % April 10, 2024 10:06:00 AM UTC (TECH: [facility]) 787-2 Erythrocyte mean corpuscular volume [Entitic volume] by Automated count H 99.7 fl 80 fl - 95 fl April 10, 2024 10:06:00 AM UTC (TECH: [facility]) 96128-8 Erythrocyte mean corpuscular hemoglobin [Entitic mass] in Blood from Fetus by Automated count N 30.5 pg 27.0 pg - 34.0 pg April 10, 2024 10:06:00 AM UTC (TECH: [facility]) 97142-8 Erythrocyte mean corpuscular hemoglobin concentration [Mass/volume] in Blood from Fetus by Automated count L 30.6 g/dL 32.0 g/dL - 36.0 g/dL April 10, 2024 10:06:00 AM UTC (TECH: [facility]) 46982-4 Platelets [#/volume] in Blood L 129 10^3/uL 150 10^3/uL - 450 10^3/uL April 10, 2024 10:06:00 AM UT (TECH: [facility]) 65606-8 Erythrocyte distribution width [Ratio] H 16.0 % 12.3 % - 15.1 % April 10, 2024 10:06:00 AM UT (TECH: [facility]) 78984-3 Platelet mean volume [Entitic volume] in Blood by Automated count N 9.7 fl 7.4 fl - 10.4 fl April 10, 2024 10:06:00 AM UT (TECH: [facility]) ORDER 1801: BASIC METABOLIC PANEL (LOINC: 65111-4) ORDER DATE: April 09, 2024 5:35:00 AM UTC Specimen Source: Serum/Plasm a Specimen Type: Acellular blo od (serum or plasma) specimen PERFORMING LAB: [address] [id number] Result Comment: Final Result Date: April 09, 2024 10:31:00 AM UT (TECH: LT) LOINC TEST FLAG RESULT REFERENCE RANGE UPDA GERARDO BY 2951-2 Sodium [Moles/volume] in Serum or Plasma N 139 mmol/L 136 mmol/L - 145 mmol/L April 09, 2024 10:31:00 AM UT (TECH: LT) 2823-3 Potassium [Moles/volume] in Serum or Plasma N 5.0 mmol/L 3.5 mmol/L - 5.1 mmol/L April 09, 2024 10:31:00 AM UT (TECH: LT) 2075-0 Chloride [Moles/volume] in Serum or Plasma N 102 mmol/L 98 mmol/L - 107 mmol/L April 09, 2024 10:31:00 AM [facility] (TECH: LT) 2027-9 Carbon dioxide, total [Moles/volume] in Serum or Plasma N 23 mmol/L 21 mmol/L - 32 mmol/L April 09, 2024 10:31:00 AM [facility] (TECH: LT) 60122-6 Anion gap 3 in Serum or Plasma N 14.0 April 09, 2024 10:31:00 AM [facility] (TECH: LT) 2345-7 Glucose [Mass/volume] in Serum or Plasma H 126 mg/dL 70 mg/dL - 110 mg/dL April 09, 2024 10:31:00 AM [facility] (TECH: LT) 3094-0 Urea nitrogen [Mass/volume] in Serum or Plasma H 53 mg/dL 7 mg/dL - 18 mg/dL April 09, 2024 10:31:00 AM UT (TECH: LT) 2160-0 Creatinine [Mass/volume] in Serum or Plasma H 10.8 mg/dL 0.6 mg/dL - 1.0 mg/dL April 09, 2024 10:31:00 AM UT (TECH: LT) 3097-3 Urea nitrogen/Creatinin e [Mass Ratio] in Serum or Plasma L 4.9 Ratio 9 Ratio - 21 Ratio April 09, 2024 10:31:00 AM UT (TECH: LT) 12704-9 Glomerular filtration rate/1.73 sq M.predicted by Creatinine-based formula (MDRD) L 3 mL/min >60 April 09, 2024 10:31:00 AM UTC (TECH: LT) 59522-4 Calcium [Mass/volume] in Serum or Plasma N 9.5 mg/dL 8.5 mg/dL - 10.1 mg/dL April 09, 2024 10:31:00 AM [facility] (TECH: LT) ORDER 1802: BASIC METABOLIC PANEL (LOINC: 91024-3) ORDER DATE: April 09, 2024 5:35:00 AM UT Specimen Source: Serum/Plasm a Specimen Type: Acellular blo od (serum or plasma) specimen PERFORMING LAB: [address] [id number] Result Comment: Final Result Date: April 10, 2024 10:17:00 AM [facility] (TECH: LT) LOINC TEST FLAG RESULT REFERENCE RANGE UPDA GERARDO BY 2951-2 Sodium [Moles/volume] in Serum or Plasma N 140 mmol/L 136 mmol/L - 145 mmol/L April 10, 2024 10:17:00 AM [facility] (TECH: LT) 2823-3 Potassium [Moles/volume] in Serum or Plasma N 4.2 mmol/L 3.5 mmol/L - 5.1 mmol/L April 10, 2024 10:17:00 AM [facility] (TECH: LT) 2075-0 Chloride [Moles/volume] in Serum or Plasma N 103 mmol/L 98 mmol/L - 107 mmol/L April 10, 2024 10:17:00 AM [facility] (TECH: LT) 8-9 Carbon dioxide, total [Moles/volume] in Serum or Plasma H 33 mmol/L 21 mmol/L - 32 mmol/L April 10, 2024 10:17:00 AM [facility] (TECH: LT) 58405-2 Anion gap 3 in Serum or Plasma N 4.0 April 10, 2024 10:17:00 AM [facility] (TECH: LT) 2345-7 Glucose [Mass/volume] in Serum or Plasma H 114 mg/dL 70 mg/dL - 110 mg/dL April 10, 2024 10:17:00 AM [facility] (TECH: LT) 3094-0 Urea nitrogen [Mass/volume] in Serum or Plasma H 39 mg/dL 7 mg/dL - 18 mg/dL April 10, 2024 10:17:00 AM [facility] (TECH: LT) 2160-0 Creatinine [Mass/volume] in Serum or Plasma H 8.8 mg/dL 0.6 mg/dL - 1.0 mg/dL April 10, 2024 10:17:00 AM UTC (TECH: LT) 3097-3 Urea nitrogen/Creatinin e [Mass Ratio] in Serum or Plasma L 4.4 Ratio 9 Ratio - 21 Ratio April 10, 2024 10:17:00 AM UTC (TECH: LT) 26966-1 Glomerular filtration rate/1.73 sq M.predicted by Creatinine-based formula (MDRD) L 4 mL/min >60 April 10, 2024 10:17:00 AM UTC (TECH: LT) 69271-1 Calcium [Mass/volume] in Serum or Plasma N 8.6 mg/dL 8.5 mg/dL - 10.1 mg/dL April 10, 2024 10:17:00 AM UT (TECH: LT) ORDER 1901: MAGNESIUM (LOINC : 91535-1) ORDER DATE: April 09, 2024 5:35:00 AM UT Specimen Source: Serum/Plasm a Specimen Type: Acellular blo od (serum or plasma) specimen PERFORMING LAB: [address] [id number] Result Comment: Final Result Date: April 09, 2024 10:31:00 AM UT (TECH: LT) LOINC TEST FLAG RESULT [place] [address]-2 Magnesium [Mass/volume] in Serum or Plasma H 2.6 mg/dL 1.8 mg/dL - 2.4 mg/dL April 09, 2024 10:31:00 AM UT (TECH: LT) ORDER 1902: MAGNESIUM (LOINC : 28623-3) ORDER DATE: April 09, 2024 5:35:00 AM UTC Specimen Source: Serum/Plasm a Specimen Type: Acellular blo od (serum or plasma) specimen PERFORMING LAB: [address] [id number] Result Comment: Final Result Date: April 10, 2024 10:17:00 AM UT (TECH: LT) LOINC TEST FLAG RESULT [place] [address]-2 Magnesium [Mass/volume] in Serum or Plasma H 2.5 mg/dL 1.8 mg/dL - 2.4 mg/dL April 10, 2024 10:17:00 AM UTC (TECH: LT) ORDER 2400: GLUCOSE BLD METE R (LOINC: 43115-2) ORDER DATE: April 09, 2024 3:51:00 PM UTC Specimen Source: Whole Blood Specimen Type: Whole blood s ample PERFORMING LAB: [address] [id number] Result Comment: April 09 3:52:00 PM UTC Test performed by: [id number] ; Instrument: [id number] Final Result Date: April 09, 2024 3:51:00 PM UTC (TECH: HL[facility]) LOINC TEST FLAG RESULT [place] [address]-3 Glucose [Mass/volume] in Capillary blood by Glucometer H 138 mg/dl 70 mg/dl - 115 mg/dl April 09, 2024 3:51:00 PM UTC (TECH: [facility]) ORDER 2500: GLUCOSE BLD METE R (LOINC: 51719-2) ORDER DATE: April 09, 2024 9:12:00 PM UTC Specimen Source: Whole Blood Specimen Type: Whole blood s ample PERFORMING LAB: [address] [id number] Result Comment: April 09 9:12:00 PM UTC Test performed by: [id number] ; Instrument: [id number] Final Result Date: April 09, 2024 9:12:00 PM UTC (TECH: [facility]) LOINC TEST FLAG RESULT [place] [address]-6 Glucose [Mass/volume] in Capillary blood by Glucometer H 119 mg/dl 70 mg/dl - 115 mg/dl April 09, 2024 9:12:00 PM UTC (TECH: HL7) ORDER 2600: AMMONIA (LOINC: 99726-8) ORDER DATE: April 09, 2024 9:26:00 PM UTC Specimen Source: Serum/Plasm a Specimen Type: Acellular blo od (serum or plasma) specimen PERFORMING LAB: [address] [id number] Result Comment: Final Result Date: April 10, 2024 10:17:00 AM UTC (TECH: LT) LOINC TEST FLAG RESULT [place] [address]-8 Ammonia [Moles/volume] in Plasma N 18 umol/L 11 umol/L - 32 umol/L April 10, 2024 10:17:00 AM UTC (TECH: LT) ORDER 2700: HEMOGLOBIN A1C ( LOINC: 4548-4) ORDER DATE: April 09, 2024 9:26:00 PM UTC Specimen Source: Whole Blood Specimen Type: Whole blood s ample PERFORMING LAB: [address] [id number] Result Comment: Final Result Date: April 10, 2024 10:17:00 AM UTC (TECH: LT) LOINC TEST FLAG RESULT REFERENCE RANGE UPDA GERARDO BY 4548-4 Hemoglobin A1c/Hemoglobin.tot al in Blood H 6.6 % 4.5 % - 6.2 % April 10, 2024 10:17:00 AM UTC (TECH: LT) 01647-2 Glucose mean value [Mass/volume] in Blood Estimated from glycated hemoglobin H 143 mg/dl 82 mg/dl - 131 mg/dl April 10, 2024 10:17:00 AM UTC (TECH: LT) ORDER 2800: PHOSPHOROUS (CECILE NC: 2777-1) ORDER DATE: April 09, 2024 9:26:00 PM UTC Specimen Source: Serum/Plasm a Specimen Type: Acellular blo od (serum or plasma) specimen PERFORMING LAB: [address] [id number] Result Comment: Final Result Date: April 10, 2024 10:17:00 AM UTC (TECH: LT) LOINC TEST FLAG RESULT REFERENCE RANGE UPDA GERARDO BY 2777-1 Phosphate [Mass/volume] in Serum or Plasma H 5.3 mg/dL 2.5 mg/dL - 4.9 mg/dL April 10, 2024 10:17:00 AM UTC (TECH: LT) ORDER 3100: GLUCOSE BLD METE R (LOINC: 02657-9) ORDER DATE: April 10, 2024 5:14:00 AM UTC Specimen Source: Whole Blood Specimen Type: Whole blood s ample PERFORMING LAB: [address] [id number] Result Comment: April 10 5:15:00 AM UTC Test performed by: [id number] ; Instrument: [id number] Final Result Date: April 10, 2024 5:14:00 AM UTC (TECH: HL7) LOINC TEST FLAG [place] [address]-2 Glucose [Mass/volume] in Capillary blood by Glucometer N 103 mg/dl 70 mg/dl - 115 mg/dl April 10, 2024 5:14:00 AM UT (TECH: HL7) ORDER 3400: GLUCOSE BLD METE R (LOINC: 64341-2) ORDER DATE: April 10, 2024 3:45:00 PM UTC Specimen Source: Whole Blood Specimen Type: Whole blood s ample PERFORMING LAB: [address] [id number] Result Comment: April 10 3:49:00 PM UTC Test performed by: [id number] ; Instrument: [id number] Final Result Date: April 10, 2024 3:45:00 PM UT (TECH: HL7) [facility] TEST FLAG [place] [address]3 Glucose [Mass/volume ] in Capillary blood by Glucometer H 120 mg/dl 70 mg/dl - 115 mg/dl April 10 3:45:00 PM UT (TECH: HL7) LABORATORY NARRATIVE RESULTS Information is not available RADIOLOGY RESULTS Information is not available PATHOLOGY NARRATIVE RESULTS Information is not available MICROBIOLOGY RESULTS No Micro Labs/Results Exist for Patient BLOOD ADMIN RESULTS Information is not available TREATMENT PLAN DISCHARGE MEDICATIONS Status RXNORM Medication Dose Route Frequency Dates Comments U pdated By Continued [id number] Omeprazole Oral Capsule Delayed Release 40 MG 40 MG BY MOUTH ONCE DAILY Prescr ibed: April 10, 2024 5:23:3 0 PM [facility] [id number] on April 10, 2024 5:23:30 PM [facility] Continued [id number] Pantoprazole Sodium Oral Tablet Delayed Release 40 MG 40 MG BY MOUTH BETWEEN MEALS Prescr ibed: April 10, 2024 5:23:3 0 PM UT [id number] on April 10, 2024 5:23:30 PM [facility] Continued [id number] Melatonin Oral Capsule 5 MG 5 MG BY MOUTH AT BEDTIME Prescr ibed: April 10, 2024 5:23:3 0 PM UT [id number] on April 10, 2024 5:23:30 PM [facility] Continued [id number] Insulin Glargine Subcutaneous Solution 100 UNIT/ML 6 UNT SUBCUTANEOUS ONCE DAILY Prescr ibed: April 10, 2024 5:23:3 0 PM UT [id number] on April 10, 2024 5:23:30 PM UT Continued [id number] Lactulose Oral Solution 10 GM/15ML 10 GM BY MOUTH THREE TIMES A DAY Prescr ibed: April 10, 2024 5:23:3 0 PM [facility] [id number] on April 10, 2024 5:23:30 PM UT Continued [id number] Furosemide Oral Tablet 80 MG 80 MG BY MOUTH TWICE A DAY Prescr ibed: April 10, 2024 5:23:3 0 PM [facility] [id number] on April 10, 2024 5:23:30 PM UT Continued 690727 Insulin Aspart Injection Solution 100 UNIT/ML 4 UNT SUBCUTANEOUS BEFORE EACH MEAL AND AT BEDTIME Prescr ibed: April 10, 2024 5:23:3 0 PM UT [id number] on April 10, 2024 5:23:30 PM UT Continued [id number] Bisoprolol Fumarate Oral Tablet 10 MG 10 MG BY MOUTH ONCE DAILY Prescr ibed: April 10, 2024 5:23:3 0 PM [facility] [id number] on April 10, 2024 5:23:30 PM UT Continued [id number] Acetaminophen Oral Tablet 325 MG 325 MG BY MOUTH FOUR TIMES A DAY NEEDED Prescr ibed: April 10, 2024 5:23:3 0 PM [facility] [id number] on April 10, 2024 5:23:30 PM UT Continued [id number] Folic Acid Oral Tablet 1 MG 1 MG BY MOUTH ONCE DAILY Prescr ibed: April 10, 2024 5:23:3 0 PM [facility] [id number] on April 10, 2024 5:23:30 PM UT Continued [id number] Albuterol Sulfate HFA Inhalation Aerosol Solution 108 (90 Base) MCG/ACT 2 PUF INHALED EVERY FOUR HOURS NEEDED (RESPIRATO RY) Prescr ibed: April 10, 2024 5:23:3 0 PM [facility] [id number] on April 10, 2024 5:23:30 PM UT Continued [id number] Sevelamer Carbonate Oral Tablet 800 MG 1600 MG BY MOUTH THREE TIMES A DAY Prescr ibed: April 10, 2024 5:23:3 0 PM [facility] [id number] on April 10, 2024 5:23:30 PM UT Continued [id number] predniSONE Oral Tablet 5 MG 5 MG BY MOUTH ONCE DAILY Prescr ibed: April 10, 2024 5:23:3 0 PM [facility] [id number] on April 10, 2024 5:23:30 PM UT Continued [id number] Atorvastatin Calcium Oral Tablet 20 MG 20 MG BY MOUTH AT BEDTIME Prescr ibed: April 10, 2024 5:23:3 0 PM UT [id number] on April 10, 2024 5:23:30 PM UT PATIENT OPEN ORDERS Code System Description Frequency Occurrences Priority Start Date Ordering Physician Updated By SUJATHA [facility] CONSULT HEAD OF DIGITAL ONE TIME 0 Routine April 09, 2024 4:52:0 0 AM UT MANISH FRANKEL [id number] on April 09, 2024 4:52:00 AM UT SCHEDULED PROCEDURES Code System Description Status Scheduled Date Upd ated By Patient scheduled procedure information is not available. 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 She underwent hemodialysis while here with resolution of her symptoms. She was seen in consultation by Nephrology course who prescribed the dialysis session. I have reviewed her medications and she has established chair here in town for Monday dialysis. She will dialyze tomorrow. She has no barriers to care no barriers to transportation.Discharge diagnoses:1. ESRD on HD . Pulmonary edema3. CHF, unspecified4. Type 2 diabetes mellitus, insulin dependent with hyperglycemia5. Cirrhosis of the liver, non alcoholic6. SarcoidosisAdvanced care planning - Full code. Surrogate MDM is kevin Burk MEDICATIONS HOME MEDICATIONS Status RXNORM NDC Medication Dose Route Frequency Dates Comments Reported By Updated By Active [id number] 01308 49138 0 Folic Acid Oral Tablet 1 MG 1.0 MG BY MOUTH DAILY Last Dose: PATIENT [id number] on April 09, 2024 4:29:55 AM UT Active 700131 66104 80264 8 Lactulose Oral Solution 10 GM/15ML 10.0 GM BY MOUTH TID Last Dose: PATIENT [id number] on April 09, 2024 9:00:32 PM [facility] Active 044813 93395 91052 7 Sevelamer Carbonate Oral Tablet 800 MG 1600. 0 MG BY MOUTH TID Last Dose: PATIENT [id number] on April 09, 2024 4:33:10 AM [facility] Active 228092 79904 29135 1 Acetaminophe n Oral Tablet 325 MG 325.0 MG BY MOUTH QIDPRN Last Dose: PATIENT [id number] on April 10, 2024 5:22:08 PM [facility] Active 989847 94839 09283 1 Melatonin Oral Capsule 5 MG 5.0 MG BY MOUTH BEDTIME Last Dose: PATIENT [id number] on April 09, 2024 4:37:59 AM [facility] Active 282585 92060 26417 5 predniSONE Oral Tablet 5 MG 5.0 MG BY MOUTH DAILY Last Dose: PATIENT [id number] on April 09, 2024 4:39:56 AM [facility] Active 682241 42973 82568 5 Furosemide Oral Tablet 80 MG 80.0 MG BY MOUTH BID Last Dose: PATIENT [id number] on April 09, 2024 9:01:05 PM [facility] Active 921258 61598 75227 0 Omeprazole Oral Capsule Delayed Release 40 MG 40.0 MG BY MOUTH DAILY Last Dose: PATIENT [id number] on April 09, 2024 9:01:05 PM [facility] Active 487201 99947 22965 0 Pantoprazole Sodium Oral Tablet Delayed Release 40 MG 40.0 MG BY MOUTH BETMEALS Last Dose: PATIENT [id number] on April 09, 2024 9:01:05 PM [facility] Active 713715 30018 47651 1 Insulin Aspart Injection Solution 100 UNIT/ML 4.0 UNT SUBCUT ANEOUS ACHS Last Dose: PATIENT [id number] on April 09, 2024 9:01:06 PM [facility] Active 412974 64879 80182 0 Insulin Glargine Subcutaneous Solution 100 UNIT/ML 6.0 UNT SUBCUT ANEOUS DAILY Last Dose: PATIENT [id number] on April 09, 2024 9:01:05 PM [facility] Active 423243 21069 14297 0 Atorvastatin Calcium Oral Tablet 20 MG 20.0 MG BY MOUTH BEDTIME Last Dose: PATIENT [id number] on April 09, 2024 4:52:57 AM [facility] Active 1088088 90594 39782 8 Albuterol Sulfate HFA Inhalation Aerosol Solution 108 (90 Base) MCG/ACT 2.0 PUF INHALE D [id number] Last Dose: [id number] on April 10, 2024 5:22:31 PM [facility] Active 753211 26406 21131 1 Bisoprolol Fumarate Oral Tablet 10 MG 10.0 MG BY MOUTH DAILY Last Dose: PATIENT [id number] on April 09, 2024 5:00:45 AM UT DISCHARGE MEDICATIONS Status RXNORM [facility] Medication Dose Route Frequency Dates Comments Physician Updated By Continue d 867881 4744 5013 600 Omeprazole Oral Capsule Delayed Release 40 MG 40.0 MG BY MOUTH ONCE DAILY Prescr ibed: April 10, 2024 5:23:3 0 PM UT KORIN Mercado MD, PHY [id number] on April 10, 2024 5:23:30 PM [facility] Continue d 750133 6513 1078 230 Pantoprazol e Sodium Oral Tablet Delayed Release 40 MG 40.0 MG BY MOUTH BETWEEN MEALS Prescr ibed: April 10, 2024 5:23:3 0 PM UT KORIN Mercado MD PHY [id number] on April 10, 2024 5:23:30 PM [facility] Continue d 492810 7011 1021 401 Melatonin Oral Capsule 5 MG 5.0 MG BY MOUTH AT BEDTIME Prescr ibed: April 10, 2024 5:23:3 0 PM UT KORIN Mercado MD PHY [id number] on April 10, 2024 5:23:30 PM [facility] Continue d 118578 9696 0618 400 Insulin Glargine Subcutaneou s Solution 100 UNIT/ML 6.0 UNT SUBCUT ANEOUS ONCE DAILY Prescr ibed: April 10, 2024 5:23:3 0 PM UT KORIN Mercado MD PHY [id number] on April 10, 2024 5:23:30 PM UT Continue d 036778 4619 1057 708 Lactulose Oral Solution 10 GM/15ML 10.0 GM BY MOUTH THREE TIMES A DAY Prescr ibed: April 10, 2024 5:23:3 0 PM UT KORIN Mercado MD PHY [id number] on April 10, 2024 5:23:30 PM [facility] Continue d 362668 0554 4430 125 Furosemide Oral Tablet 80 MG 80.0 MG BY MOUTH TWICE A DAY Prescr ibed: April 10, 2024 5:23:3 0 PM UT KORIN Mercado MD Y [id number] on April 10, 2024 5:23:30 PM UTC Continue d 483885 1293 0010 011 Insulin Aspart Injection Solution 100 UNIT/ML 4.0 UNT SUBCUT ANEOUS BEFORE EACH MEAL AND AT BEDTIME Prescr ibed: April 10, 2024 5:23:3 0 PM UT KORIN Mercado MD Y [id number] on April 10, 2024 5:23:30 PM UTC Continue d 313070 0376 2008 70 Bisoprolol Fumarate Oral Tablet 10 MG 10.0 MG BY MOUTH ONCE DAILY Prescr ibed: April 10, 2024 5:23:3 0 PM UT KORIN Mercado MD Y [id number] on April 10, 2024 5:23:30 PM UTC Continue d 645045 6512 9056 301 Acetaminoph en Oral Tablet 325 MG 325.0 MG BY MOUTH FOUR TIMES A DAY NEEDED Prescr ibed: April 10, 2024 5:23:3 0 PM UT KORIN Mercado MD Y [id number] on April 10, 2024 5:23:30 PM UTC Continue d 443590 3812 9091 230 Folic Acid Oral Tablet 1 MG 1.0 MG BY MOUTH ONCE DAILY Prescr ibed: April 10, 2024 5:23:3 0 PM UT KORIN Mercado MD PHY [id number] on April 10, 2024 5:23:30 PM UTC Continue d 2013754 6699 3001 968 Albuterol Sulfate HFA Inhalation Aerosol Solution 108 (90 Base) MCG/ACT 2.0 PUF INHALE D EVERY FOUR HOURS NEEDED (RESPIRATO RY) Prescr ibed: April 10, 2024 5:23:3 0 PM UT KORIN Mercado MD PHY [id number] on April 10, 2024 5:23:30 PM UTC Continue d 672226 8919 209 127 Sevelamer Carbonate Oral Tablet 800 MG 1600. 0 MG BY MOUTH THREE TIMES A DAY Prescr ibed: April 10, 2024 5:23:3 0 PM UT KORIN Mercado MD Y [id number] on April 10, 2024 5:23:30 PM UTC Continue d 238898 2042 4472 825 predniSONE Oral Tablet 5 MG 5.0 MG BY MOUTH ONCE DAILY Prescr ibed: April 10, 2024 5:23:3 0 PM UT KORIN Mercado MD PHY [id number] on April 10, 2024 5:23:30 PM UT Continue d 719808 1702 5392 890 Atorvastati n Calcium Oral Tablet 20 MG 20.0 MG BY MOUTH AT BEDTIME Prescr ibed: April 10, 2024 5:23:3 0 PM UT KORIN Mercado MD PHY [id number] on April 10, 2024 5:23:30 PM UT INPATIENT MEDICATIONS Status RXNORM [facility] Medication Dose Route Frequency Rat e Quantity Dates Comments Physician Updated By Nuha inued 468800 6718 6579 588 nicotine TD (NICODERM) 14 MH/24HR PT24 14.0 MG TRANSD ERMAL ONCE DAILY NEEDED Start: April 09, 2024 5:31:0 0 AM UT End: April 10, 2024 5:23:3 0 PM UT JEANNIE Moreno PA-C [id number] on April 11, 2024 4:25:00 AM UT Discont inued 0858 6860 121 MONOJECT FLUSH SYRINGE 0.9 % SOLN 10.0 ML INTRAV ENOUS TWICE A DAY Start: April 09, 2024 1:00:0 0 PM UT End: April 10, 2024 5:23:3 0 PM UT JEANNIE Moreno PA-C [id number] on April 11, 2024 4:25:00 AM [facility] Discont inued 935435 45683274 4136 017 hydrALAZINE (APRESOLINE ) 20 MG/ML SOLN 10.0 MG INTRAV ENOUS EVERY FOUR HOURS NEEDED Start: April 09, 2024 5:31:0 0 AM UTC End: April 10, 2024 5:23:3 0 PM UT JEANNIE Moreno PA-C [id number] on April 11, 2024 4:25:00 AM [facility] Discont inued 0953580 23152461 2587 047 LABETALOL 5 MG/ML SOLN 10.0 MG INTRAV ENOUS EVERY TWO HOURS NEEDED Start: April 09, 2024 5:31:0 0 AM UT End: April 10, 2024 5:23:3 0 PM UTC JEANNIE Moreno PA-C [id number] on April 11, 2024 4:25:00 AM UTC Discont inued 0012 1176 130 MAG-AL PLUS 200-200-20 MG/5 ML LIQD 30.0 ML BY MOUTH EVERY SIX HOURS NEEDED Start: April 09, 2024 5:31:0 0 AM UTC End: April 10, 2024 5:23:3 0 PM UTC JEANNIE Moreno PA-C [id number] on April 11, 2024 4:25:00 AM UTC Discont inued 863207 0233 4677 361 ACETAMINOPH EN 325 MG TABS 650.0 MG BY MOUTH EVERY SIX HOURS NEEDED Start: April 09, 2024 5:31:0 0 AM UTC End: April 10, 2024 5:23:3 0 PM UTC JEANNIE Moreno PA-C [id number] on April 11, 2024 4:25:00 AM UTC Discont inued 014777 6288 0020 200 PANTOPRAZOL E SODIUM 40 MG SOLR 40.0 MG INTRAV ENOUS ONCE DAILY Start: April 09, 2024 1:00:0 0 PM UTC End: April 10, 2024 5:23:3 0 PM UTC JEANNIE Moreno PA-C [id number] on April 11, 2024 4:25:00 AM UTC Discont inued 1102438 8604 9475 503 ondansetron (ZOFRAN) 4 MG/2ML SOLN 4.0 MG INTRAV ENOUS EVERY EIGHT HOURS NEEDED Start: April 09, 2024 5:31:0 0 AM UTC End: April 10, 2024 5:23:3 0 PM UTC JEANNIE Moreno PA-C [id number] on April 11, 2024 4:25:00 AM UTC Discont inued 671129 6331 6024 064 ondansetron (ZOFRAN) 4 MG TBDP 4.0 MG SUBLIN GUAL EVERY EIGHT HOURS NEEDED Start: April 09, 2024 5:31:0 0 AM UTC End: April 10, 2024 5:23:3 0 PM UTC JEANNIE Moreno PA-C [id number] on April 11, 2024 4:25:00 AM UTC Discont inued 9536878 1441 9610 204 furosemide 40mg vial (LASIX) 10 MG/ML SOLN 40.0 MG INTRAV ENOUS ONE TIME ONLY Start: April 09, 2024 7:12:0 0 AM UTC End: April 09, 2024 7:12:0 0 AM UTC [facility] on April 09, 2024 7:11:00 AM UTC Discont inued 8940860 7774 9610 204 furosemide 40mg vial (LASIX) 10 MG/ML SOLN 40.0 MG INTRAV ENOUS NOW Start: April 09, 2024 7:20:0 0 AM UTC End: April 09, 2024 7:45:5 4 AM UT JES HARRISON MD [id number] on April 09, 2024 7:54:00 AM UTC Discont inued 7753972 6728 9610 204 furosemide 40mg vial (LASIX) 10 MG/ML SOLN 80.0 MG INTRAV ENOUS NOW Start: April 09, 2024 7:45:0 0 AM UTC End: April 09, 2024 7:47:1 5 AM UTC JES HARRISON MD [id number] on April 09, 2024 7:54:00 AM UTC Discont inued Free Text Med predniSONE Oral Tablet 5 MG 5.0 MG BY MOUTH ONCE DAILY Start: April 10, 2024 1:00:0 0 PM UTC End: April 10, 2024 1:00:0 0 PM UTC [facility] JR[facility] on April 09, 2024 9:52:00 PM UTC Discont inued Free Text Med Sevelamer Carbonate Oral Tablet 800 MG 1600. 0 MG BY MOUTH THREE TIMES A DAY Start: April 10, 2024 1:00:0 0 AM UTC End: April 10, 2024 1:00:0 0 AM UTC [facility] on April 09, 2024 9:53:00 PM UTC Discont inued 408844 6779 1115 430 LACTULOSE 10 GM/15ML SOLN 10.0 GM BY MOUTH THREE TIMES A DAY Start: April 09, 2024 9:00:0 0 PM UTC End: April 09, 2024 9:50:2 7 PM UTC [facility] on April 09, 2024 9:50:00 PM UTC Discont inued Free Text Med Melatonin Oral Capsule 5 MG 5.0 MG BY MOUTH AT BEDTIME Start: April 10, 2024 1:00:0 0 AM UTC End: April 10, 2024 1:00:0 0 AM UTC [facility] on April 09, 2024 9:50:00 PM UTC Discont inued 769628 3215 7040 211 metoprolol succinate 50MG TB24 50 MG TB24 100.0 MG BY MOUTH ONCE DAILY Start: April 09, 2024 8:59:0 0 PM UTC End: April 09, 2024 9:51:0 4 PM UT [facility] [id number] on April 09, 2024 9:51:00 PM UTC Discont inued 693520 1208 4089 701 folic acid (FOLATE) 1 MG TABS 1.0 MG BY MOUTH ONCE DAILY Start: April 10, 2024 1:00:0 0 PM UTC End: April 10, 2024 6:48:0 0 PM UT [facility] [id number] on April 11, 2024 4:25:00 AM UTC Discont inued Free Text Med Atorvastati n Calcium Oral Tablet 20 MG 20.0 MG BY MOUTH AT BEDTIME Start: April 10, 2024 1:00:0 0 AM UTC End: April 10, 2024 1:00:0 0 AM UT [facility] [id number] on April 09, 2024 9:49:00 PM UTC Discont inued 995807 9142 2751 017 insulin lispro(LAURA LOG) 100 UNIT/ML SOLN 1.0 UNT SUBCUT ANEOUS SLIDING SCALE NEEDED Start: April 09, 2024 9:25:0 0 PM UTC End: April 10, 2024 5:23:3 0 PM UT [facility] [id number] on April 11, 2024 4:25:00 AM UTC Discont inued 2564149 1230 9490 264 dextrose SYR (D50) PFS 50 % SOLN 50.0 ML INTRAV ENOUS NEEDED Start: April 09, 2024 9:25:0 0 PM UTC End: April 10, 2024 5:23:3 0 PM UTC [facility] [id number] on April 11, 2024 4:25:00 AM UTC Discont inued 887061 0284 1015 540 atorvastati n calcium (LIPITOR) 10 MG TABS 20.0 MG BY MOUTH AT BEDTIME Start: April 10, 2024 1:00:0 0 AM UTC End: April 10, 2024 5:23:3 0 PM UTC [facility] [id number] on April 11, 2024 4:25:00 AM UTC Discont inued 133265 3096 1115 430 LACTULOSE 10 GM/15ML SOLN 10.0 GM BY MOUTH THREE TIMES A DAY Start: April 09, 2024 9:50:0 0 PM UTC End: April 10, 2024 6:48:0 0 PM UTC [facility] [id number] on April 11, 2024 4:25:00 AM UTC Discont inued 192806 5734 1001 406 melatonin 3 MG TABS 4.5 MG BY MOUTH AT BEDTIME Start: April 10, 2024 1:00:0 0 AM UTC End: April 10, 2024 5:23:3 0 PM UTC [facility] [id number] on April 11, 2024 4:25:00 AM UTC Discont inued 976254 6148 7040 211 metoprolol succinate 50MG TB24 50 MG TB24 100.0 MG BY MOUTH ONCE DAILY Start: April 09, 2024 9:51:0 0 PM UTC End: April 10, 2024 5:23:3 0 PM UTC [facility] [id number] on April 11, 2024 4:25:00 AM UTC Discont inued 440026 6366 4872 425 predniSONE 5 MG TABS 5.0 MG BY MOUTH ONCE DAILY Start: April 10, 2024 1:00:0 0 PM UTC End: April 10, 2024 1:00:0 0 PM UTC [facility] [id number] on April 10, 2024 11:55:00 AM UTC Discont inued 846214 1525 8013 001 sevelamer (RENVELA) 800 MG TABS 1600. 0 MG BY MOUTH THREE TIMES A DAY Start: April 10, 2024 1:00:0 0 AM UTC End: April 10, 2024 6:48:0 0 PM UTC [facility] [id number] on April 11, 2024 4:25:00 AM UTC Discont inued 477170 3169 4001 720 predniSONE 10 MG TABS 5.0 MG BY MOUTH ONCE DAILY Start: April 10, 2024 1:00:0 0 PM UTC End: April 10, 2024 5:23:3 0 PM UTC [facility] [id number] on April 11, 2024 4:25:00 AM UTC Discont inued XXXX XXX0 063 *PATIENT INFORMATION MISC 1.0 EA SEE COMMEN TS NEEDED Start: April 10, 2024 5:23:0 0 PM UTC End: April 10, 2024 6:48:0 0 PM UTC KORIN Mercado MD [id number] on April 11, 2024 4:25:00 AM UT SOCIAL HISTORY SOCIAL HISTORY SNOMED-CT Social History Element Description Effective Dates Offered Cessation Comment UpdatedBy [id number] Current Tobacco smoking status Never Smoked [id number] on April 09, 2024 12:49:37 PM UT SOCIAL HISTORY - Gender Sex: Female SOCIAL HISTORY - Status : status i nformation is not available Intention in Next Year: intention information is not available SOCIAL HISTORY - Sexual Behavior Sexual Orientation Gender Identity SNOMED-CT Description SNO MED -CT Description Activity Level No of Partners Partner Type UpdatedBy Information is not available VITAL SIGNS PATIENT VITAL SIGNS This section displays the mo st recent value for each vital sign as of April 11, 2024 11:53:43 AM UT Loinc Code Vital Sign Activity Date Result Updated By 8302-2 Body height April 09, 2024 4:23:42 AM UT 170.18 cm (67.0 in) [id number] on April 09, 2024 4:23:42 AM [facility] 36411-8 Body mass index (BMI ) [Ratio] April 09, 2024 4:23:42 AM UT 27.876 kg/m2 [id number] on April 09, 2024 4:23:42 AM [facility] 3140-1 Body Surface Area Derived From Formula April 09, 2024 4:23:42 AM UTC 1.9244 m2 [id number] on April 09, 2024 4:23:42 AM UTC 8310-5 Body temperature April 10, 2024 3:49:00 PM UTC 97.7 [degF] [id number] on April 10, 2024 3:49:17 PM UTC 75688-0 Body weight Measured April 09 4:23:42 AM UTC 80.739 kg (178.0 lb) [id number] on April 09, 2024 4:23:42 AM UTC 8462-4 Diastolic blood pressure April 10, 2024 3:48:00 PM UTC 57.0 mm[Hg] [id number] on April 10, 2024 3:48:37 PM UTC 8867-4 Heart rate April 10, 2024 3:48:00 PM UTC 70 /min [id number] on April 10, 2024 3:48:37 PM UTC 40986-7 Oxygen saturation in Arterial blood by Pulse oximetry April 10, 2024 3:48:00 PM UTC 92.0 % [id number] on April 10, 2024 3:48:37 PM UTC 9279-1 Respiratory rate April 10, 2024 3:48:00 PM UTC 18 /min [id number] on April 10, 2024 3:48:37 PM UTC 88204-3 Spirometry panel April 10, 2024 12:49:00 PM UTC 10.0 {score} [id number] on April 10, 2024 12:49:05 PM UTC 8480-6 Systolic blood pressure April 10, 2024 3:48:00 PM UTC 116.0 mm[Hg] [id number] on April 10, 2024 3:48:37 PM UTC PEDIATRIC GROWTH CHART - VITAL SIGNS This section displays Head C ircumference Percentile, Weight for Length Percentile and BMI Percentile Loinc Code Pediatric Measure Age (Months) Result Updat ed By No Pediatric Growth Chart Pe rcentile Information Available. HEALTH CONCERNS Problems Concern Status Health Concern problem infor mation not available. Smoking Status Status Years Used Consumed packs p er day Health Concern smoking histo ry information not available. Family History Concern Status Health Concern family histor y information not available. ENCOUNTERS ENCOUNTER INFORMATION Reason for Visit END STAGE RENAL DISE ASE Admission April 09, 2024 5:35:[address] [id number] Discharge April 10, 2024 6:48:00 PM UTC DIS CHARGED TO HOME OR SELF CARE ENCOUNTER DIAGNOSES Note Title Nurse Discharge Note Date Of Service April 10, 2024 6:42:2 4 PM UT Created By [id number] on April 10, 2024 6:42:24 PM UTC Signed By [id number] on April 10, 2024 6:42:43 PM UT Code System Diagnosis Onset Date [id number] SNOMED-CT End-stage renal disease ABSTRACT DIAGNOSES Code System Diagnosis Updated By I13.2 ICD10 HYPERTENSIVE HEA RT AND CHRONIC KIDNEY DISEASE WITH HEART FAILURE AND WITH STAGE 5 CHRONIC KIDNEY DISEASE, OR END STAGE RENAL DISEASE [id number] on April 11, 2024 11:53:03 AM [facility] I13.2 ICD10 HYPERTENSIVE HEA RT AND CHRONIC KIDNEY DISEASE WITH HEART FAILURE AND WITH STAGE 5 CHRONIC KIDNEY DISEASE, OR END STAGE RENAL DISEASE [id number] on April 11, 2024 11:53:03 AM [facility] N18.6 ICD10 END STAGE RENAL DISEASE [id number] on April 11, 2024 11:53:03 AM [facility] 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 [id number] on April 11, 2024 11:53:03 AM [facility] E11.22 ICD10 TYPE 2 DIABETES MELLITUS WITH DIABETIC CHRONIC KIDNEY DISEASE [id number] on April 11, 2024 11:53:03 AM [facility] I50.9 ICD10 HEART FAILURE, UNSPECIFIED F [id number] on April 11, 2024 11:53:03 AM [facility] E11.65 ICD10 TYPE 2 DIABETES MELLITUS WITH HYPERGLYCEMIA [id number] on April 11, 2024 11:53:03 AM [facility] K74.60 ICD10 UNSPECIFIED CIRRHOSIS OF CHELSEY ER [id number] on April 11, 2024 11:53:03 AM [facility] Z88.8 ICD10 ALLERGY STATUS T O OTHER DRUGS, MEDICAMENTS AND BIOLOGICAL SUBSTANCES [id number] on April 11, 2024 11:53:03 AM [facility] D86.9 ICD10 SARCOIDOSIS, UNSPECIFIED FGE [id number] on April 11, 2024 11:53:03 AM [facility] Z99.2 ICD10 DEPENDENCE ON RENAL DIALYSIS [id number] on April 11, 2024 11:53:03 AM [facility] Z79.52 ICD10 PACKING CLERK (CURRE NT) USE OF SYSTEMIC STEROIDS [id number] on April 11, 2024 11:53:03 AM [facility] Z79.899 ICD10 OTHER [facility] (CURRENT) DR STARR THERAPY [id number] on April 11, 2024 11:53:03 AM [facility] Z79.4 ICD10 PACKING CLERK (CURRENT) USE OF I NSULIN [id number] on April 11, 2024 11:53:03 AM [facility] K21.9 ICD10 GASTRO-ESOPHAGEA L REFLUX DISEASE WITHOUT ESOPHAGITIS [id number] on April 11, 2024 11:53:03 AM [facility] E78.5 ICD10 HYPERLIPIDEMIA, UNSPECIFIED [id number] on April 11, 2024 11:53:03 AM [facility] D63.1 ICD10 ANEMIA IN CHRONIC KIDNEY DIS EASE [id number] on April 11, 2024 11:53:03 AM [facility] Z95.810 ICD10 PRESENCE OF AUTO MATIC (IMPLANTABLE) CARDIAC DEFIBRILLATOR [id number] on April 11, 2024 11:53:03 AM [facility] CARE TEAM Care Third Miller Role MARLYS DARLING Surgeon ELLIOTT GARCIA Primary Care MARLYS DARLING Primary Attending MARLYS DARLING Referring MARLYS DARLING Admitting HOSPITAL DISCHARGE INSTRUCTION DISCHARGE INSTRUCTION Encounter [id number] Admit Date April 09, 2024 5:35:0 0 AM [facility] Discharge Date April 10, 2024 6:48:0 0 PM [facility] PATIENT EDUCATION SUMMARY Patient/Visit Information: Patient Name: THAO BURK Diag: Attending Caregiver: PHONG FRANKEL Discharge Instruction Sheets Provided: *[facility] *BRBN Social Determinants of Health *BRBN Suicidal Feelings: How to Help Yourself (LPNT) () Chronic Kidney Disease, Adult, [id number] End-Stage Kidney Disease Food Basics for Chronic Kidney Disease Smoking\Tobacco Cessation - [facility] () () Patient Instructions: Additional Notes for *[facility] HD on 04/11 regular time at [facility]. Follow up with PCP in 5-7 days. 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 She presented to [facility] with SOB in the preceding few day. She was dialyzed one day early last week. CT at [facility] revealed pulmonary edema. She was transferred to our facility for emergent dialysis. Past Medical History Hiatal hernia Superior mesenteric artery syndrome, stenosis Gastroesophageal reflux disease Dyslipidemia Atrial fibrillation Complete atrioventricular block, with pacemaker in situ Congestive heart failure Type 2 diabetes mellitus, Insulin dependent Sarcoidosis Cirrhosis of liver End-stage renal disease, Dialysis schedule Past Surgical History Cardioverter defibrillator procedure Social History tobacco use Never Smoked, 0 yrs alcohol use No Known Use drug use No Known Use marital status sexual behavior Identifies as Female Allergies CEFTRIAXONE - Asthma, Rash Home Medications Acetaminophen Oral Tablet 325 MG Dose: 325 MG BY MOUTH FOUR TIMES A DAY NEEDED Albuterol Sulfate HFA Inhalation Aerosol Solution 108 (90 Base) MCG/ACT Dose: 90 MCG INHALED EVERY FOUR HOURS NEEDED Atorvastatin Calcium Oral Tablet 20 MG Dose: 20 MG BY MOUTH AT BEDTIME Bisoprolol Fumarate Oral Tablet 10 MG Dose: 10 MG BY MOUTH ONCE DAILY Folic Acid Oral Tablet 1 MG Dose: 1 MG BY MOUTH ONCE DAILY Furosemide Oral Tablet 80 MG Dose: 80 MG BY MOUTH TWICE A DAY Insulin Aspart Injection Solution 100 UNIT/ML Dose: 4 UNT SUBCUTANEOUS BEFORE EACH MEAL AND AT BEDTIME Insulin Glargine Subcutaneous Solution 100 UNIT/ML Dose: 6 UNT SUBCUTANEOUS ONCE DAILY Lactulose Oral Solution 10 GM/15ML Dose: BY MOUTH THREE TIMES A DAY Melatonin Oral Capsule 5 MG Dose: 5 MG BY MOUTH AT BEDTIME Omeprazole Oral Capsule Delayed Release 40 MG Dose: 40 MG BY MOUTH ONCE DAILY Pantoprazole Sodium Oral Tablet Delayed Release 40 MG Dose: 40 MG BY MOUTH BETWEEN MEALS predniSONE Oral Tablet 5 MG Dose: 5 MG BY MOUTH ONCE DAILY Sevelamer Carbonate Oral Tablet 800 MG Dose: 1600 MG BY MOUTH THREE TIMES A DAY Review of Systems Narrative No fever, no chills, no tremors, no myalgias, no arthralgias, +weakness No headache, no dizziness, no loss of conciousness No blurry vision, no double vision, no decreased acuity, no eye pain No rhinorrhea, no epistaxis, no congestion, no nasal discharge. No sore throat, no trouble swallowing, no trouble speaking + shortness of breath, no wheezing, no cough, no sputum production. No chest pain, no palpitations, no chest wall pain No abdominal pain, no diarrhea, no constipation, no blood in stool No trouble urinating, no dribbling, no weak stream, no hematuria + extremity swelling, no cyanosis No joint pain, no muscle pain, No difficulty ambulating Vital Signs 1113 T 97.7 HR 70 RR 19 BP 110 / 64 O2Sat 99 0751 HR 70 RR 20 0750 O2Sat 98 0636 T 97.9 BP 129 / 77 Intake and Output previous current encounter day day cumulative Intake 360 120 480 Output 201 1 202 Balance 159 119 278 Physical Exam Narrative GENERAL: Alert, in no acute distress HEENT: NCAT, PERRL, EOMI RESPIRATORY: CTAB, no rales, rhonchi or wheezing. Good chest wall expansion CARDIOVASCULAR: RRR, S1S2 heard, no murmurs, rubs or gallops. Bilateral radial pulses palpated 2+ ABDOMEN: No masses. BS heard. Soft, non tender to palpation in all quadrants. No guarding or rebound tenderness EXTREMITIES: No edema. No cyanosis MSK: No gross abnormalities. SKIN: warm, dry. healed ulcerations scarring on lower extremities NEURO: AOX3. CN2-12 grossly intact. Grossly normal sensation PSYCH: Cooperative, pleasant. Lab Results 1151 Point Of Care GLUMETER 138 (H) 0558 Hematology WBC 8.1 RBC 3.83 (L) HGB 11.8 (L) HCT 37.9 MCV 99.0 (H) MCH 30.8 MCHC 31.1 (L) PLT S 149 (L) RDW 15.9 (H) MPV 9.8 0557 Chemistry SODIUM 139 K 5.0 CHLORIDE 102 CO2 23 A GAP 14.0 GLUCOSE 126 (H) BUN 53 (H) CREA 10.8 (H) BUN/CREA 4.9 (L) EGFR 3 (L) CALCIUM 9.5 MG 2.6 (H) 0200 Coagualtion PT 9.9 INR 0.90 PTT 22.6 (L) 154 Chemistry SODIUM 139 K 4.9 CHLORIDE 102 CO2 26 A GAP 11.0 GLUCOSE 170 (H) BUN 49 (H) CREA 11.1 (H) BUN/CREA 4.4 (L) EGFR 3 (L) PROTEIN 7.1 ALBUMIN 3.4 CALCIUM 9.7 KEE COR 10.2 (H) BILI TOT 1.0 AST/SGOT 26 ALT/SGPT 52 ALK PHOS 180 (H) MG 2.6 (H) T4 TOTAL 7.0 TSH 1.31 154 Hematology WBC 5.7 RBC 3.72 (L) HGB 11.4 (L) HCT 37.1 MCV 99.7 (H) MCH 30.6 MCHC 30.7 (L) PLT S 126 (L) RDW 15.9 (H) MPV 11.1 (H) GRAN% 78.6 (H) LYMPH% 12.1 (L) MONO% 7.9 EOS% 0.7 BASO% 0.2 IG% 0.5 GRAN# 4.48 LYMPH# 0.69 MONO# 0.45 EOS# 0.04 BASO# 0.01 IG# 0.03 MANDIFF? No 154 Triage Meter BNP 875.0 (H) Imaging Results See [facility] imaging report Procedures and Surgeries None Assessment/Plan 1. ESRD on HD T-- 2. Pulmonary edema 3. CHF, unspecified 4. Type 2 diabetes mellitus, insulin dependent with hyperglycemia 5. Cirrhosis of the liver, non alcoholic 6. Sarcoidosis VTE prophylaxis - lovenox Advanced care planning - Full code. Surrogate MDM is kevin Baker he was consulted and patient underwent hemodialysis today. Obtain follow up labs. Continue chronic medications. Start low dose sliding scale , ACHS glucose checks. Time Spent With Patient 30mins Electronically signed by PHONG FRANKEL on 4 CONSULTATION NOTE CONSULTATION NOTE Note Title Nephrologhy Consulta tion Date Of Service April 09, 2024 7:15:0 9 AM [facility] Created By [id number] on April 09, 2024 7:15:09 AM [place] Signed By [id number] on April 09, 2024 9:00:08 AM [facility] Chief Complaint SOB History of Present Illness She is a 73 y/o female with ESRD on HD MWF. She presented to [facility] with SOB. CT scan revealed pulmonary edema, so she was transferred to [facility] for emergency dialysis. Past Medical History ESRD, HTN, CHF, secondary hyperparathyroidism, anemia Past Surgical History RUE AVF Social History tobacco use Never Smoked, 0 yrs alcohol use No Known Use drug use No Known Use marital status Family History not pertinent Allergies CEFTRIAXONE - Asthma, Rash Home Medications Acetaminophen Oral Tablet 325 MG Dose: 325 MG BY MOUTH FOUR TIMES A DAY NEEDED Albuterol Sulfate HFA Inhalation Aerosol Solution 108 (90 Base) MCG/ACT Dose: 90 MCG INHALED EVERY FOUR HOURS NEEDED Atorvastatin Calcium Oral Tablet 20 MG Dose: 20 MG BY MOUTH AT BEDTIME Bisoprolol Fumarate Oral Tablet 10 MG Dose: 10 MG BY MOUTH ONCE DAILY Folic Acid Oral Tablet 1 MG Dose: 1 MG BY MOUTH ONCE DAILY Furosemide Oral Tablet 80 MG Dose: 80 MG BY MOUTH TWICE A DAY Insulin Aspart Injection Solution 100 UNIT/ML Dose: 4 UNT SUBCUTANEOUS BEFORE EACH MEAL AND AT BEDTIME Insulin Glargine Subcutaneous Solution 100 UNIT/ML Dose: 6 UNT SUBCUTANEOUS ONCE DAILY Lactulose Oral Solution 10 GM/15ML Dose: BY MOUTH THREE TIMES A DAY Melatonin Oral Capsule 5 MG Dose: 5 MG BY MOUTH AT BEDTIME Omeprazole Oral Capsule Delayed Release 40 MG Dose: 40 MG BY MOUTH ONCE DAILY Pantoprazole Sodium Oral Tablet Delayed Release 40 MG Dose: 40 MG BY MOUTH BETWEEN MEALS predniSONE Oral Tablet 5 MG Dose: 5 MG BY MOUTH ONCE DAILY Sevelamer Carbonate Oral Tablet 800 MG Dose: 1600 MG BY MOUTH THREE TIMES A DAY Active Medications PANTOPRAZOLE SODIUM 40 MG IV PUSH DAILY MONOJECT FLUSH SYRINGE 0.9 % 10 ML IVFLUSH BID ondansetron (ZOFRAN) 4 MG SUBLING Q8HPRN for NAUSEA/VOMITING USE PO IF ABLE TO TOLERATE FOR NAUSEA AND VOMITING ondansetron (ZOFRAN) 4 MG/2ML 4 MG IV PUSH Q8HPRN for NAUSEA/VOMITING USE IV IF NOT TOLERATING PO FOR NAUSEA VOMITING nicotine TD (NICODERM) 14 MH/24HR 14 MG TRANSDRM DAILYPRN for OTHER-PLEASE COMMENT MAG-AL PLUS 200-200-20 MG/5 ML 30 ML PO Q6HPRN for DYSPEPSIA FOR DYSPEPSIA LABETALOL 5 MG/ML 10 MG IV PUSH Q2HPRN for HYPERTENSION GIVE FIRST FOR SYSTOLIC PRESSURE GREATER THAN 180 M[facility] HOLD FOR HEART RATE LESS THAN 60 BPM hydrALAZINE (APRESOLINE) 20 MG/ML 10 MG IV PUSH Q4HPRN for HYPERTENSION GIVE IF LABETALOL INSUFFICIENT FOR SYSTOLIC BP GREATER THAN 180 MMHG HOLD FOR HEART RATE LESS THAN 60 BPM ACETAMINOPHEN 650 MG PO Q6HPRN for HEADACHE, FEVER - TEMPERATURE >101.0F, MILD PAIN: 1-3 PAIN Fever greater than 101 Review of Systems Constitutional Weight gain Negative For: Fever Skin/Lymphatic Negative For: Rash, Lesion HEENT Head Negative For: Headache, Head injury Eyes Negative For: Blurred vision, Double vision Ears Negative For: Hearing loss Mouth and Throat Negative For: Sore throat, Difficulty Swallowing Neck Pain Negative For: Swelling Respiratory SOB - Shortness of breath Negative For: Cough, Producing sputum Cardiac/Peripheral Vascular Chest pain GI Negative For: Nausea, Vomiting, Diarrhea Negative For: Dysuria, Frequency Neurological Unsteady gait Negative For: Loss of consciousness Musculoskeletal Negative For, Joint stiffness, Joint swelling Psychiatric Negative For: Anxious, Agitated Vital Signs 0208 T 97.1 HR 102 (H) RR 18 BP 139 / 85 O2Sat 100 0141 RR 18 0032 T 97 HR 70 BP 136 / 79 O2Sat 99 Intake and Output previous current encounter day day cumulative Intake 360 - 360 Output 1 - 1 Balance 359 - 359 Physical Exam Narrative Gen: A&Ox3, minimal distress Eyes: EOMI, anicteric sclera ENT: MMM, no facial droop Neck: equivocal JVD Lungs: wheezing above, crackles in the bases, unlabored breathing, 98% on 2 LNC Heart: Regular rhythm, rate ~100, no murmur or rub Abdomen: Nontender, slightly distended Ext: no pedal edema, no amputations, RUE AVF +thrill and bruit Neuro: no focal motor deficits, follows commands Psych: normal mood and affects Skin: intact, no rash Lab Results 0200 Coagualtion PT 9.9 INR 0.90 PTT 22.6 (L) 154 Chemistry SODIUM 139 K 4.9 CHLORIDE 102 CO2 26 A GAP 11.0 GLUCOSE 170 (H) BUN 49 (H) CREA 11.1 (H) BUN/CREA 4.4 (L) EGFR 3 (L) PROTEIN 7.1 ALBUMIN 3.4 CALCIUM 9.7 KEE COR 10.2 (H) BILI TOT 1.0 AST/SGOT 26 ALT/SGPT 52 ALK PHOS 180 (H) MG 2.6 (H) T4 TOTAL 7.0 TSH 1.31 154 Hematology WBC 5.7 RBC 3.72 (L) HGB 11.4 (L) HCT 37.1 MCV 99.7 (H) MCH 30.6 MCHC 30.7 (L) PLT S 126 (L) RDW 15.9 (H) MPV 11.1 (H) GRAN% 78.6 (H) LYMPH% 12.1 (L) MONO% 7.9 EOS% 0.7 BASO% 0.2 IG% 0.5 GRAN# 4.48 LYMPH# 0.69 MONO# 0.45 EOS# 0.04 BASO# 0.01 IG# 0.03 MANDIFF? No 154 Triage Meter BNP 875.0 (H) Procedures and Surgeries None Assessment/Plan 1. ESRD: Dialysis ordered for JAEL. Then resume MWF dialysis. 2. CHF: Ultrafilter with dialysis. 3. HTN: BP should improve with HD/ultrafiltration. Then resume antihypertensive meds. 4. Anemia of ESRD: Hgb is within target on YESENIA protocol. 5. Secondary hyperparathyroidism of renal origin: Continue sevelamer with meals. Time spent with Patient Time 30 minutes Case d/w ER doctor and med-surg nurse Electronically signed by ASPEN VALENZUELA MD on 0500 DISCHARGE SUMMARY NOTE PROGRESS NOTE PROGRESS NOTE Note Title Nephrology Progress Note Date Of Service April 10, 2024 2:48:4 9 PM UTC Created By [id number] on April 10, 2024 2:48:49 PM UTC Signed By [id number] on April 10, 2024 3:10:32 PM UTC History of Present Illness She had an uneventful dialysis yesterday with 2.5 liters UF. She denies dyspnea. Vital Signs 0849 O2Sat 98 0721 T 98.1 HR 69 RR 18 BP 117 / 68 O2Sat 94 0358 RR 20 0336 T 97 HR 70 BP 120 / 69 Intake and Output previous current encounter day day cumulative Intake 6721 352 2683 Output 301 - 502 Balance 5558 179 7639 Physical Exam Narrative Gen: A&Ox3, no distress Eyes: EOMI, anicteric sclera ENT: MMM, no facial droop Neck: no JVD Lungs: Clear but diminished in the bases, unlabored breathing, 94% on RA Heart: Regular rhythm, normal rate, no murmur or rub Abdomen: Nontender, non-distended Ext: no pedal edema, no amputations, RUE AVF +thrill and bruit Neuro: no focal motor deficits, follows commands Psych: normal mood and affect Skin: intact, no rash Lab Results 0551 Chemistry SODIUM 140 K 4.2 CHLORIDE 103 CO2 33 (H) A GAP 4.0 GLUCOSE 114 (H) BUN 39 (H) CREA 8.8 (H) BUN/CREA 4.4 (L) EGFR 4 (L) CALCIUM 8.6 MG 2.5 (H) 0551 Hematology WBC 3.6 (L) RBC 3.51 (L) HGB 10.7 (L) HCT 35.0 (L) MCV 99.7 (H) MCH 30.5 MCHC 30.6 (L) PLT S 129 (L) RDW 16.0 (H) MPV 9.7 0550 Chemistry AMMONIA 18 PHOS 5.3 (H) HGB A1C 6.6 (H) EAG 143 (H) 0114 Point Of Care GLUMETER 103 1712 Point Of Care GLUMETER 119 (H) 1151 Point Of Care GLUMETER 138 (H) Assessment/Plan 1. ESRD: S/p HD yesterday. She can be discharged to resume MWF dialysis. 2. CHF: Ultrafilter with dialysis. 3. HTN: BP improved with HD/ultrafiltration and resumption of antihypertensive meds. 4. Anemia of ESRD: Hgb is within target on YESENIA protocol. 5. Secondary hyperparathyroidism of renal origin: Continue sevelamer with meals. Active Medications predniSONE 5 MG PO DAILY folic acid (FOLATE) 1 MG PO DAILY sevelamer (RENVELA) 1600 MG PO TID melatonin 4.5 MG PO BEDTIME atorvastatin calcium (LIPITOR) 20 MG PO BEDTIME metoprolol succinate 50MG TB24 100 MG PO DAILY Substituted from Bisoprolol Fumarate Oral Tablet 10 MG, 10 MG BY MOUTH ONCE DAILY LACTULOSE 10 GM/15ML 10 GM PO TID dextrose SYR (D50) PFS 50 % 50 ML IV PUSH PRN for HYPOGLYCEMIA FOR HYPOGLYCEMIA/ UNRESPONSIVE insulin lispro(HUMALOG) 100 UNIT/ML Sliding Scale Dose SUBCUT SSPRN for HYPERGLYCEMIA PANTOPRAZOLE SODIUM 40 MG IV PUSH DAILY MONOJECT FLUSH SYRINGE 0.9 % 10 ML IVFLUSH BID ondansetron (ZOFRAN) 4 MG SUBLING Q8HPRN for NAUSEA/VOMITING USE PO IF ABLE TO TOLERATE FOR NAUSEA AND VOMITING ondansetron (ZOFRAN) 4 MG/2ML 4 MG IV PUSH Q8HPRN for NAUSEA/VOMITING USE IV IF NOT TOLERATING PO FOR NAUSEA VOMITING nicotine TD (NICODERM) 14 MH/24HR 14 MG TRANSDRM DAILYPRN for OTHER-PLEASE COMMENT MAG-AL PLUS 200-200-20 MG/5 ML 30 ML PO Q6HPRN for DYSPEPSIA FOR DYSPEPSIA LABETALOL 5 MG/ML 10 MG IV PUSH Q2HPRN for HYPERTENSION GIVE FIRST FOR SYSTOLIC PRESSURE GREATER THAN 180 [facility] HOLD FOR HEART RATE LESS THAN 60 BPM hydrALAZINE (APRESOLINE) 20 MG/ML 10 MG IV PUSH Q4HPRN for HYPERTENSION GIVE IF LABETALOL INSUFFICIENT FOR SYSTOLIC BP GREATER THAN 180 MMHG HOLD FOR HEART RATE LESS THAN 60 BPM ACETAMINOPHEN 650 MG PO Q6HPRN for HEADACHE, FEVER - TEMPERATURE >101.0F, MILD PAIN: 1-3 PAIN Fever greater than 101 Time spent with Patient 20 Electronically signed by ASPEN VALENZUELA MD on 1110 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 Status Start Date End Date Update d By PHONG FRANKEL Surgeon normal April 09, 2024 5:35:00 AM [facility] April 10, 2024 6:48:00 PM [facility] [id number] on April 11, 2024 11:52:00 AM [facility] RADHA Carrasco PCP normal April 09, 2024 12:10:59 AM [facility] April 09, 2024 3:45:38 PM [facility] [id number] on April 11, 2024 11:52:00 AM [facility] PHONG FRANKEL Referring normal April 09, 2024 12:10:59 AM [facility] April 10, 2024 6:48:00 PM [facility] [id number] on April 11, 2024 11:52:00 AM [facility] PHONG FRANKEL Attending normal April 09, 2024 12:10:58 AM [facility] April 10, 2024 6:48:00 PM [facility] [id number] on April 11, 2024 11:52:00 AM [facility] PHONG FRANKEL Admitting normal April 09, 2024 12:10:58 AM [facility] April 10, 2024 6:48:00 PM [facility] [id number] on April 11, 2024 11:52:00 AM [facility]
--- OUTSIDE RECORDS SUMMARY | 2024-06-24 05:59 | XMS_ITS | Continuity of Care Document ---
Author Organization [facility] Phone Care Team Providers Care Iron Miner Name Role Phone ELLIOTT GARCIA Primary Care MARLYS DARLING Primary Attending MARLYS DARLING Unavailable MARLYS DARLING Admitting [phone] ALLERGIES AND ADVERSE REACTIONS ALLERGIES AND ADVERSE REACTIONS Code System Allergy Substance Adverse Reaction Date Reaction (Severity) Comment Status Reported By Updated By [id number] RXNorm CEFTRIAXONE Rash (Severe) Shortness of breath/diffic ulty breathing active [id number] on April 09, 2024 5:38:58 AM UTC ASSESSMENTS End-stage renal disease ; FUNCTIONAL STATUS Note Title Nurse Discharge Note Date Of Service April 10, 2024 6:42:2 4 PM UTC Created By [id number] on April 10, 2024 6:42:24 PM UTC Signed By [id number] on April 10, 2024 6:42:43 PM UTC FUNCTIONAL STATUS Section: Functional Status Comments: Description SNOMED_CT Value Comments Weakness [id number] both MENTAL STATUS Note Title Nurse Discharge Note Date Of Service April 10, 2024 6:42:2 4 PM UTC Created By [id number] on April 10, 2024 6:42:24 PM UTC Signed By [id number] on April 10, 2024 6:42:43 PM UTC MENTAL STATUS Section: Cognitive Status Comments: Description SNOMED_CT Value Comments Oriented x4 [id number] true PROBLEMS PATIENT PROBLEMS Code Description/Comments Category Status Upda gerardo By [id number] End-stage renal disease active H [id number] on April 09, 2024 5:32:16 AM UTC RESULTS Patient: APOLLO OSUNA Date of : [birth year] LABORATORY RESULTS ORDER 900: CBC AUTO W DIFF ( LOINC: 64720-0) ORDER DATE: April 09, 2024 5:35:00 AM UTC Specimen Source: Whole Blood Specimen Type: Whole blood s ample PERFORMING LAB: [address] [id number] Result Comment: Final Result Date: April 09, 2024 6:14:00 AM UTC (TECH: [employer]) LOINC TEST FLAG RESULT REFERENCE RANGE UPDA GERARDO BY 6690-2 Leukocytes [#/volume] in Blood by Automated count N 5.7 10^3/uL 4.5 10^3/uL - 11.5 10^3/uL April 09, 2024 6:14:00 AM UTC (TECH: [employer]) 789-8 Erythrocytes [#/volume] in Blood by Automated count L 3.72 10^6/uL 4.25 10^6/uL - 5.57 10^6/uL April 09, 2024 6:14:00 AM UTC (TECH: [employer]) 718-7 Hemoglobin [Mass/volume] in Blood L 11.4 g/dL 12.0 g/dL - 15.7 g/dL April 09, 2024 6:14:00 AM UTC (TECH: [employer]) 97790-6 Hematocrit [Volume Fraction] of Blood N 37.1 % 36.0 % - 47.0 % April 09, 2024 6:14:00 AM UTC (TECH: [employer]) 787-2 Erythrocyte mean corpuscular volume [Entitic volume] by Automated count H 99.7 fl 80 fl - 95 fl April 09, 2024 6:14:00 AM UTC (TECH: [employer]) 07760-8 Erythrocyte mean corpuscular hemoglobin [Entitic mass] in Blood from Fetus by Automated count N 30.6 pg 27.0 pg - 34.0 pg April 09, 2024 6:14:00 AM UTC (TECH: [employer]) 45754-4 Erythrocyte mean corpuscular hemoglobin concentration [Mass/volume] in Blood from Fetus by Automated count L 30.7 g/dL 32.0 g/dL - 36.0 g/dL April 09, 2024 6:14:00 AM UTC (TECH: [employer]) 00622-5 Platelets [#/volume] in Blood L 126 10^3/uL 150 10^3/uL - 450 10^3/uL April 09, 2024 6:14:00 AM UTC (TECH: [employer]) 85423-2 Erythrocyte distribution width [Ratio] H 15.9 % 12.3 % - 15.1 % April 09, 2024 6:14:00 AM UTC (TECH: [employer]) 88152-0 Platelet mean volume [Entitic volume] in Blood by Automated count H 11.1 fl 7.4 fl - 10.4 fl April 09, 2024 6:14:00 AM UTC (TECH: [employer]) 35440-7 Granulocytes/100 leukocytes in Blood by Automated count H 78.6 % 40 % - 75 % April 09, 2024 6:14:00 AM UTC (TECH: [employer]) 736-9 Lymphocytes/100 leukocytes in Blood by Automated count L 12.1 % 15 % - 57 % April 09, 2024 6:14:00 AM UTC (TECH: [employer]) 5905-5 Monocytes/100 leukocytes in Blood by Automated count N 7.9 % 4.0 % - 12.0 % April 09, 2024 6:14:00 AM UTC (TECH: [employer]) 713-8 Eosinophils/100 leukocytes in Blood by Automated count N 0.7 % 0.0 % - 4.0 % April 09, 2024 6:14:00 AM UTC (TECH: [employer]) 706-2 Basophils/100 leukocytes in Blood by Automated count N 0.2 % 0.0 % - 1.0 % April 09, 2024 6:14:00 AM UTC (TECH: [employer]) 15800-8 Immature granulocytes [#/volume] in Blood N 0.5 % 0.0 % - 0.8 % April 09 6:14:00 AM UTC (TECH: [employer]) 93539-9 Granulocytes [#/volume] in Blood by Automated count N 4.48 10^3/uL April 09, 2024 6:14:00 AM UTC (TECH: [employer]) 731-0 Lymphocytes [#/volume] in Blood by Automated count N 0.69 10^3/uL April 09, 2024 6:14:00 AM UTC (TECH: [employer]) 742-7 Monocytes [#/volume] in Blood by Automated count N 0.45 10^3/uL April 09, 2024 6:14:00 AM [facility] (TECH: [employer]) 711-2 Eosinophils [#/volume] in Blood by Automated count N 0.04 10^3/uL April 09, 2024 6:14:00 AM UT (TECH: [employer]) 704-7 Basophils [#/volume] in Blood by Automated count N 0.01 10^3/uL April 09, 2024 6:14:00 AM UT (TECH: [employer]) 48654-3 Immature granulocytes [#/volume] in Blood N 0.03 10^3/uL April 09 6:14:00 AM UT (TECH: [employer]) 30427-2 Manual differential performed [Presence] in Blood N NO April 09, 2024 6:14:00 AM [facility] (TECH: [employer]) ORDER 1000: COMP METABOLIC P AMELIE (LOINC: 97752-7) ORDER DATE: April 09, 2024 5:35:00 AM UT Specimen Source: Serum/Plasm a Specimen Type: Acellular blo od (serum or plasma) specimen PERFORMING LAB: [address] [id number] Result Comment: Final Result Date: April 09, 2024 6:40:00 AM UT (TECH: [employer]) LOINC TEST FLAG RESULT REFERENCE RANGE UPDA GREARDO BY 2951-2 Sodium [Moles/volume ] in Serum or Plasma N 139 mmol/L 136 mmol/L - 145 mmol/L April 09, 2024 6:40:00 AM UT (TECH: [employer]) 2823-3 Potassium [Moles/volume] in Serum or Plasma N 4.9 mmol/L 3.5 mmol/L - 5.1 mmol/L April 09, 2024 6:40:00 AM UT (TECH: [employer]) 2075-0 Chloride [Moles/volu me] in Serum or Plasma N 102 mmol/L 98 mmol/L - 107 mmol/L April 09, 2024 6:40:00 AM UT (TECH: [employer]) 8-9 Carbon dioxide, tota l [Moles/volume] in Serum or Plasma N 26 mmol/L 21 mmol/L - 32 mmol/L April 09, 2024 6:40:00 AM UT (TECH: [employer]) 16893-5 Anion gap 3 in Serum or Plasma N 11.0 April 09, 2024 6:40:00 AM UT (Screenhero: [employer]) 2345-7 Glucose [Mass/volume ] in Serum or Plasma H 170 mg/dL 70 mg/dL - 110 mg/dL April 09, 2024 6:40:00 AM UT (TECH: [employer]) 3094-0 Urea nitrogen [Mass/volume] in Serum or Plasma H 49 mg/dL 7 mg/dL - 18 mg/dL April 09, 2024 6:40:00 AM UT (TECH: [employer]) 2160-0 Creatinine [Mass/volume] in Serum or Plasma H 11.1 mg/dL 0.6 mg/dL - 1.0 mg/dL April 09, 2024 6:40:00 AM UT (TECH: [employer]) 3097-3 Urea nitrogen/Creatinine [Mass Ratio] in Serum or Plasma L 4.4 Ratio 9 Ratio - 21 Ratio April 09, 2024 6:40:00 AM UT ([employer]: [employer]) 29695-7 Glomerular filtratio n rate/1.73 sq M.predicted by Creatinine-based formula (MDRD) L 3 mL/min >60 April 09, 2024 6:40:00 AM UT ([employer]: [employer]) 2885-2 Protein [Mass/volume ] in Serum or Plasma N 7.1 g/dL 6.4 g/dL - 8.2 g/dL April 09, 2024 6:40:00 AM [facility] ([employer]: [employer]) 1751-7 Albumin [Mass/volume ] in Serum or Plasma N 3.4 g/dL 3.4 g/dL - 5.0 g/dL April 09, 2024 6:40:00 AM UT ([employer]: [employer]) 71675-6 Calcium [Mass/volume ] in Serum or Plasma N 9.7 mg/dL 8.5 mg/dL - 10.1 mg/dL April 09, 2024 6:40:00 AM UT ([employer]: [employer]) 56171-9 Calcium [Mass/volume ] corrected for total protein in Serum or Plasma H 10.2 mg/dL 8.5 mg/dL - 10.1 mg/dL April 09, 2024 6:40:00 AM UT ([employer]: [employer]) 1975-2 Bilirubin.total [Mass/volume] in Serum or Plasma N 1.0 mg/dL 0.4 mg/dL - 1.5 mg/dL April 09, 2024 6:40:00 AM UTC (TECH: [employer]) 1920-8 Aspartate aminotransferase [Enzymatic activity/volume] in Serum or Plasma N 26 U/L 15 U/L - 37 U/L April 09, 2024 6:40:00 AM UTC (TECH: [employer]) 1742-6 Alanine aminotransferase [Enzymatic activity/volume] in Serum or Plasma N 52 U/L 12 U/L - 78 U/L April 09, 2024 6:40:00 AM UTC (TECH: [employer]) 6768-6 Alkaline phosphatase [Enzymatic activity/volume] in Serum or Plasma H 180 U/L 53 U/L - 141 U/L April 09, 2024 6:40:00 AM UT (TECH: [employer]) ORDER 1100: PTT PARTIAL THRO MB TIME (LOINC: 47481-4) ORDER DATE: April 09, 2024 5:35:00 AM UT Specimen Source: Plasma Specimen Type: Plasma specim en PERFORMING LAB: [address] [id number] Result Comment: Final Result Date: April 09, 2024 6:21:00 AM [facility] (TECH: [employer]) LOINC TEST FLAG RESULT [place] [address]-6 Activated partial thromboplastin time (aPTT) in Platelet poor plasma by Coagulation assay L 22.6 seconds 24.5 seconds - 32.8 seconds April 09, 2024 6:21:00 AM UT (TECH: [employer]) ORDER 1200: PT PROTHROMBIN T PAUL W INR (LOINC: 16355-3) ORDER DATE: April 09, 2024 5:35:00 AM UT Specimen Source: Plasma Specimen Type: Plasma specim en PERFORMING LAB: [address] [id number] Result Comment: Final Result Date: April 09, 2024 6:21:00 AM UT (TECH: [employer]) LOINC TEST FLAG RESULT [place] [address]-0 INR in Platelet poor plasma or blood by Coagulation assay N 9.9 seconds 9.1 seconds - 12.0 seconds April 09, 2024 6:21:00 AM UT (TECH: [employer]) 6301-6 INR in Platelet poor plasma by Coagulation assay N 0.90 0.9 - 1.1 April 09, 2024 6:21:00 AM UTC (TECH: [employer]) ORDER 1300: THYROID STIMULAT ING HORMONE (LOINC: 3016-3) ORDER DATE: April 09, 2024 5:35:00 AM UTC Specimen Source: Serum/Plasm a Specimen Type: Acellular blo od (serum or plasma) specimen PERFORMING LAB: [address] [id number] Result Comment: Final Result Date: April 09, 2024 6:40:00 AM UTC (TECH: [employer]) LOINC TEST FLAG RESULT REFERENCE RANGE UPDA GERARDO BY 3016-3 Thyrotropin [Units/volume] in Serum or Plasma N 1.31 mIU/mL 0.34 mIU/mL - 4.80 mIU/mL April 09, 2024 6:40:00 AM UTC (TECH: [employer]) ORDER 1400: T4 TOTAL (LOINC: 3026-2) ORDER DATE: April 09, 2024 5:35:00 AM UTC Specimen Source: Serum/Plasm a Specimen Type: Acellular blo od (serum or plasma) specimen PERFORMING LAB: [address] [id number] Result Comment: Final Result Date: April 09, 2024 6:40:00 AM UTC (TECH: [employer]) LOINC TEST FLAG RESULT REFERENCE RANGE UPDA GERARDO BY 3026-2 Thyroxine (T4) [Mass/volume] in Serum or Plasma N 7.0 ug/dL 4.8 ug/dL - 13.9 ug/dL April 09, 2024 6:40:00 AM UTC (TECH: [employer]) ORDER 1500: B-TYPE NATRIURET IC PEPTIDE BNP (LOINC: 98000-3) ORDER DATE: April 09, 2024 5:35:00 AM UTC Specimen Source: Whole Blood Specimen Type: Whole blood s ample PERFORMING LAB: [address] [id number] Result Comment: Final Result Date: April 09, 2024 6:38:00 AM UTC (TECH: [employer]) LOINC TEST FLAG RESULT [place] [address]-1 Natriuretic peptide B [Mass/volume] in Serum or Plasma H 875.0 pg/mL 0.0 pg/mL - 100 pg/mL April 09, 2024 6:38:00 AM UTC (TECH: [facility]) ORDER 1600: MAGNESIUM (LOINC : 72601-2) ORDER DATE: April 09, 2024 5:35:00 AM UTC Specimen Source: Serum/Plasm a Specimen Type: Acellular blo od (serum or plasma) specimen PERFORMING LAB: [address] [id number] Result Comment: Final Result Date: April 09, 2024 6:40:00 AM UTC (TECH: [employer]) LOINC TEST FLAG RESULT [place] [address]-5 Magnesium [Mass/volume] in Serum or Plasma H 2.6 mg/dL 1.8 mg/dL - 2.4 mg/dL April 09, 2024 6:40:00 AM UTC (TECH: [employer]) ORDER 1701: CBC AUTO NO DIFF HEMOGRAM (LOINC: 74942-2) ORDER DATE: April 09, 2024 5:35:00 AM UTC Specimen Source: Whole Blood Specimen Type: Whole blood s ample PERFORMING LAB: [address] [id number] Result Comment: Final Result Date: April 09, [...] 09, 2024 10:15:00 AM UTC (TECH: LT) 30783-8 Hematocrit [Volume Fraction] of Blood N 37.9 % 36.0 % - 47.0 % April 09, 2024 10:15:00 AM UTC (TECH: LT) 787-2 Erythrocyte mean corpuscular volume [Entitic volume] by Automated count H 99.0 fl 80 fl - 95 fl April 09, 2024 10:15:00 AM UTC (TECH: LT) 84959-1 Erythrocyte mean corpuscular hemoglobin [Entitic mass] in Blood from Fetus by Automated count N 30.8 pg 27.0 pg - 34.0 pg April 09, 2024 10:15:00 AM UTC (TECH: LT) 56633-3 Erythrocyte mean corpuscular hemoglobin concentration [Mass/volume] in Blood from Fetus by Automated count L 31.1 g/dL 32.0 g/dL - 36.0 g/dL April 09, 2024 10:15:00 AM UTC (TECH: LT) 46789-9 Platelets [#/volume] in Blood L 149 10^3/uL 150 10^3/uL - 450 10^3/uL April 09, 2024 10:15:00 AM UTC (TECH: LT) 36277-4 Erythrocyte distribution width [Ratio] H 15.9 % 12.3 % - 15.1 % April 09, 2024 10:15:00 AM UTC (TECH: LT) 68043-3 Platelet mean volume [Entitic volume] in Blood by Automated count N 9.8 fl 7.4 fl - 10.4 fl April 09, 2024 10:15:00 AM UTC (TECH: LT) ORDER 1702: CBC AUTO NO DIFF HEMOGRAM (LOINC: 72134-4) ORDER DATE: April 09, 2024 5:35:00 AM UTC Specimen Source: Whole Blood Specimen Type: Whole blood s ample PERFORMING LAB: [address] [id number] Result Comment: Final Result Date: April 10, [...] April 10, 2024 10:06:00 AM UTC (TECH: [employer]) 718-7 Hemoglobin [Mass/volume] in Blood L 10.7 g/dL 12.0 g/dL - 15.7 g/dL April 10, 2024 10:06:00 AM UTC (TECH: [employer]) 38887-1 Hematocrit [Volume Fraction] of Blood L 35.0 % 36.0 % - 47.0 % April 10, 2024 10:06:00 AM UTC (TECH: [employer]) 787-2 Erythrocyte mean corpuscular volume [Entitic volume] by Automated count H 99.7 fl 80 fl - 95 fl April 10, 2024 10:06:00 AM UTC (TECH: [employer]) 43011-8 Erythrocyte mean corpuscular hemoglobin [Entitic mass] in Blood from Fetus by Automated count N 30.5 pg 27.0 pg - 34.0 pg April 10, 2024 10:06:00 AM UTC (TECH: [employer]) 70734-7 Erythrocyte mean corpuscular hemoglobin concentration [Mass/volume] in Blood from Fetus by Automated count L 30.6 g/dL 32.0 g/dL - 36.0 g/dL April 10, 2024 10:06:00 AM UTC (TECH: [employer]) 32752-2 Platelets [#/volume] in Blood L 129 10^3/uL 150 10^3/uL - 450 10^3/uL April 10, 2024 10:06:00 AM UTC (TECH: [employer]) 47921-5 Erythrocyte distribution width [Ratio] H 16.0 % 12.3 % - 15.1 % April 10, 2024 10:06:00 AM UTC (TECH: [employer]) 56967-3 Platelet mean volume [Entitic volume] in Blood by Automated count N 9.7 fl 7.4 fl - 10.4 fl April 10, 2024 10:06:00 AM UT (TECH: [employer]) ORDER 1801: BASIC METABOLIC PANEL (LOINC: 48879-4) ORDER DATE: April 09, 2024 5:35:00 AM UTC Specimen Source: Serum/Plasm a Specimen Type: Acellular blo od (serum or plasma) specimen PERFORMING LAB: [address] [id number] Result Comment: Final Result Date: April 09, [...] 107 mmol/L April 09, 2024 10:31:00 AM [facility] (TECH: LT) 2027-9 Carbon dioxide, total [Moles/volume] in Serum or Plasma N 23 mmol/L 21 mmol/L - 32 mmol/L April 09, 2024 10:31:00 AM UT (TECH: LT) 66663-5 Anion gap 3 in Serum or Plasma N 14.0 April 09, 2024 10:31:00 AM [facility] (TECH: LT) 2345-7 Glucose [Mass/volume] in Serum or Plasma H 126 mg/dL 70 mg/dL - 110 mg/dL April 09, 2024 10:31:00 AM [facility] (TECH: LT) 3094-0 Urea nitrogen [Mass/volume] [...] 21 Ratio April 09, 2024 10:31:00 AM [facility] (TECH: LT) 95790-9 Glomerular filtration rate/1.73 sq M.predicted by Creatinine-based formula (MDRD) L 3 mL/min >60 April 09, 2024 10:31:00 AM [facility] (TECH: LT) 05578-8 Calcium [Mass/volume] in Serum or Plasma N 9.5 mg/dL 8.5 mg/dL - 10.1 mg/dL April 09, 2024 10:31:00 AM UT (TECH: LT) ORDER 1802: BASIC METABOLIC PANEL (LOINC: 74632-4) ORDER DATE: April 09, 2024 5:35:00 AM UT Specimen Source: Serum/Plasm a Specimen Type: Acellular blo od (serum or plasma) specimen PERFORMING LAB: [address] [id number] Result Comment: Final Result Date: April 10, 2024 10:17:00 AM [facility] (TECH: LT) LOINC TEST FLAG RESULT REFERENCE RANGE UPDA GERARDO BY 2951-2 Sodium [Moles/volume] in Serum or Plasma N 140 mmol/L 136 mmol/L - 145 mmol/L April 10, 2024 10:17:00 AM [facility] (TECH: LT) 2823-3 Potassium [Moles/volume] in Serum or Plasma N 4.2 mmol/L 3.5 mmol/L - 5.1 mmol/L April 10, 2024 10:17:00 AM UT (TECH: LT) 2075-0 Chloride [Moles/volume] in Serum or Plasma N 103 mmol/L 98 mmol/L - 107 mmol/L April 10, 2024 10:17:00 AM [facility] (TECH: LT) 8-9 Carbon dioxide, total [Moles/volume] in Serum or Plasma H 33 mmol/L 21 mmol/L - 32 mmol/L April 10, 2024 10:17:00 AM [facility] (TECH: LT) 09862-5 Anion gap 3 in Serum or Plasma N 4.0 April 10, 2024 10:17:00 AM [facility] (TECH: LT) 2345-7 Glucose [Mass/volume] in Serum or Plasma H 114 mg/dL 70 mg/dL - 110 mg/dL April 10, 2024 10:17:00 AM [facility] (TECH: LT) 3094-0 Urea nitrogen [Mass/volume] in Serum or Plasma H 39 mg/dL 7 mg/dL - 18 mg/dL April 10, 2024 10:17:00 AM [facility] (TECH: LT) 2160-0 Creatinine [Mass/volume] in Serum or Plasma H 8.8 mg/dL 0.6 mg/dL - 1.0 mg/dL April 10, 2024 10:17:00 AM UT (TECH: LT) 3097-3 Urea nitrogen/Creatinin e [Mass Ratio] in Serum or Plasma L 4.4 Ratio 9 Ratio - 21 Ratio April 10, 2024 10:17:00 AM UT (TECH: LT) 34690-6 Glomerular filtration rate/1.73 sq M.predicted by Creatinine-based formula (MDRD) L 4 mL/min >60 April 10, 2024 10:17:00 AM UTC (TECH: LT) 79633-0 Calcium [Mass/volume] in Serum or Plasma N 8.6 mg/dL 8.5 mg/dL - 10.1 mg/dL April 10, 2024 10:17:00 AM UT (TECH: LT) ORDER 1901: MAGNESIUM (LOINC : 97428-0) ORDER DATE: April 09, 2024 5:35:00 AM UT Specimen Source: Serum/Plasm a Specimen Type: Acellular blo od (serum or plasma) specimen PERFORMING LAB: [address] [id number] Result Comment: Final Result Date: April 09, 2024 10:31:00 AM UT (TECH: LT) LOINC TEST FLAG RESULT [place] [address]-8 Magnesium [Mass/volume] in Serum or Plasma H 2.6 mg/dL 1.8 mg/dL - 2.4 mg/dL April 09, 2024 10:31:00 AM UT (TECH: LT) ORDER 1902: MAGNESIUM (LOINC : 86579-3) ORDER DATE: April 09, 2024 5:35:00 AM UT Specimen Source: Serum/Plasm a Specimen Type: Acellular blo od (serum or plasma) specimen PERFORMING LAB: [address] [id number] Result Comment: Final Result Date: April 10, 2024 10:17:00 AM UT (TECH: LT) LOINC TEST FLAG RESULT [place] [address]-8 Magnesium [Mass/volume] in Serum or Plasma H 2.5 mg/dL 1.8 mg/dL - 2.4 mg/dL April 10, 2024 10:17:00 AM UT (TECH: LT) ORDER 2400: GLUCOSE BLD METE R (LOINC: 57611-3) ORDER DATE: April 09, 2024 3:51:00 PM UTC Specimen Source: Whole Blood Specimen Type: Whole blood s ample PERFORMING LAB: [address] [id number] Result Comment: April 09 3:52:00 PM UTC Test performed by: [id number] ; Instrument: [id number] Final Result Date: April 09, 2024 3:51:00 PM UTC (TECH: [employer]) LOINC TEST FLAG RESULT [place] [address]-9 Glucose [Mass/volume] in Capillary blood by Glucometer H 138 mg/dl 70 mg/dl - 115 mg/dl April 09, 2024 3:51:00 PM UTC (TECH: [facility]) ORDER 2500: GLUCOSE BLD METE R (LOINC: 30868-9) ORDER DATE: April 09, 2024 9:12:00 PM UTC Specimen Source: Whole Blood Specimen Type: Whole blood s ample PERFORMING LAB: [address] [id number] Result Comment: April 09 9:12:00 PM UTC Test performed by: [id number] ; Instrument: [id number] Final Result Date: April 09, 2024 9:12:00 PM UTC (TECH: [employer]) LOINC TEST FLAG RESULT [place] [address]-5 Glucose [Mass/volume] in Capillary blood by Glucometer H 119 mg/dl 70 mg/dl - 115 mg/dl April 09, 2024 9:12:00 PM UTC (TECH: [employer]) ORDER 2600: AMMONIA (LOINC: 89464-2) ORDER DATE: April 09, 2024 9:26:00 PM UTC Specimen Source: Serum/Plasm a Specimen Type: Acellular blo od (serum or plasma) specimen PERFORMING LAB: [address] [id number] Result Comment: Final Result Date: April 10, 2024 10:17:00 AM UTC (TECH: LT) LOINC TEST FLAG RESULT [place] [address]-5 Ammonia [Moles/volume] in Plasma N 18 umol/L 11 umol/L - 32 umol/L April 10, 2024 10:17:00 AM UTC (TECH: LT) ORDER 2700: HEMOGLOBIN A1C ( LOINC: 4548-4) ORDER DATE: April 09, 2024 9:26:00 PM UTC Specimen Source: Whole Blood Specimen Type: Whole blood s ample PERFORMING LAB: [address] [id number] Result Comment: Final Result Date: April 10, 2024 10:17:00 AM UTC (TECH: LT) LOINC TEST FLAG RESULT REFERENCE RANGE UPDA GERARDO BY 4548-4 Hemoglobin A1c/Hemoglobin.tot al in Blood H 6.6 % 4.5 % - 6.2 % April 10, 2024 10:17:00 AM UTC (TECH: LT) 98801-7 Glucose mean value [Mass/volume] in Blood Estimated from glycated hemoglobin H 143 mg/dl 82 mg/dl - 131 mg/dl April 10, 2024 10:17:00 AM UTC (TECH: LT) ORDER 2800: PHOSPHOROUS (CECILE NC: 2777-1) ORDER DATE: April 09, 2024 9:26:00 PM UTC Specimen Source: Serum/Plasm a Specimen Type: Acellular blo od (serum or plasma) specimen PERFORMING LAB: [address] [id number] Result Comment: Final Result Date: April 10, 2024 10:17:00 AM UTC (TECH: LT) LOINC TEST FLAG RESULT REFERENCE RANGE UPDA GERARDO BY 2777-1 Phosphate [Mass/volume] in Serum or Plasma H 5.3 mg/dL 2.5 mg/dL - 4.9 mg/dL April 10, 2024 10:17:00 AM UTC (TECH: LT) ORDER 3100: GLUCOSE BLD METE R (LOINC: 14933-4) ORDER DATE: April 10, 2024 5:14:00 AM UTC Specimen Source: Whole Blood Specimen Type: Whole blood s ample PERFORMING LAB: [address] [id number] Result Comment: April 10 5:15:00 AM UTC Test performed by: [id number] ; Instrument: [id number] Final Result Date: April 10, 2024 5:14:00 AM UTC (TECH: HL[facility]) LOINC TEST FLAG RESULT [place] [address]-8 Glucose [Mass/volume] in Capillary blood by Glucometer N 103 mg/dl 70 mg/dl - 115 mg/dl April 10, 2024 5:14:00 AM UTC (TECH: HL7) ORDER 3400: GLUCOSE BLD METE R (LOINC: 06066-6) ORDER DATE: April 10, 2024 3:45:00 PM UTC Specimen Source: Whole Blood Specimen Type: Whole blood s ample PERFORMING LAB: [address] [id number] Result Comment: April 10 3:49:00 PM UTC Test performed by: [id number] ; Instrument: [id number] Final Result Date: April 10, 2024 3:45:00 PM [facility] (TECH: HL7) LOINC TEST FLAG RESULT [place] [address]-8 Glucose [Mass/volume ] in Capillary blood by [...] ibed: April 10, 2024 5:23:3 0 PM [facility] [id number] on April 10, 2024 5:23:30 PM [facility] Continued 762445 Pantoprazole Sodium Oral Tablet Delayed Release 40 MG 40 MG BY MOUTH BETWEEN MEALS Prescr ibed: April 10, 2024 5:23:3 0 PM [facility] [id number] on April 10, 2024 5:23:30 PM [facility] Continued 089540 Melatonin Oral Capsule 5 MG 5 MG BY MOUTH AT BEDTIME Prescr ibed: April 10, 2024 5:23:3 0 PM [facility] [id number] on April 10, 2024 5:23:30 PM [facility] Continued 261238 Insulin Glargine Subcutaneous Solution 100 UNIT/ML 6 UNT SUBCUTANEOUS ONCE DAILY Prescr ibed: April 10, 2024 5:23:3 0 PM [facility] [id number] on April 10, 2024 5:23:30 PM [facility] Continued 393091 Lactulose Oral Solution 10 GM/15ML 10 GM BY MOUTH THREE TIMES A DAY Prescr ibed: April 10, 2024 5:23:3 0 PM [facility] [id number] on April 10, 2024 5:23:30 PM [facility] Continued 192374 Furosemide Oral Tablet 80 MG 80 MG BY MOUTH TWICE A DAY Prescr ibed: April 10, 2024 5:23:3 0 PM [facility] [id number] on April 10, 2024 5:23:30 PM [facility] Continued 573935 Insulin Aspart Injection Solution 100 UNIT/ML 4 UNT SUBCUTANEOUS BEFORE EACH MEAL AND AT BEDTIME Prescr ibed: April 10, 2024 5:23:3 0 PM [facility] [id number] on April 10, 2024 5:23:30 PM UT Continued [id number] Bisoprolol Fumarate Oral Tablet 10 MG 10 MG BY MOUTH ONCE DAILY Prescr ibed: April 10, 2024 5:23:3 0 PM [facility] [id number] on April 10, 2024 5:23:30 PM UT Continued [id number] Acetaminophen Oral Tablet 325 MG 325 MG BY MOUTH FOUR TIMES A DAY NEEDED Prescr ibed: April 10, 2024 5:23:3 0 PM [facility] [id number] on April 10, 2024 5:23:30 PM [facility] Continued [id number] Folic Acid Oral Tablet 1 MG 1 MG BY MOUTH ONCE DAILY Prescr ibed: April 10, 2024 5:23:3 0 PM [facility] [id number] on April 10, 2024 5:23:30 PM [facility] Continued [id number] Albuterol Sulfate HFA Inhalation Aerosol Solution 108 (90 Base) MCG/ACT 2 PUF INHALED EVERY FOUR HOURS NEEDED (RESPIRATO RY) Prescr ibed: April 10, 2024 5:23:3 0 PM [facility] [id number] on April 10, 2024 5:23:30 PM [facility] Continued [id number] Sevelamer Carbonate Oral Tablet 800 MG 1600 MG BY MOUTH THREE TIMES A DAY Prescr ibed: April 10, 2024 5:23:3 0 PM [facility] [id number] on April 10, 2024 5:23:30 PM [facility] Continued [id number] predniSONE Oral Tablet 5 MG 5 MG BY MOUTH ONCE DAILY Prescr ibed: April 10, 2024 5:23:3 0 PM [facility] [id number] on April 10, 2024 5:23:30 PM [place] Continued [id number] Atorvastatin Calcium Oral Tablet 20 MG 20 MG BY MOUTH AT BEDTIME Prescr ibed: April 10, 2024 5:23:3 0 PM [facility] [id number] on April 10, 2024 5:23:30 PM [facility] PATIENT OPEN ORDERS Code System Description Frequency Occurrences Priority Start Date Ordering Physician Updated By [facility]ON[facility] DESIGNER ONE TIME 0 Routine April 09, 2024 4:52:0 0 AM [facility] MANISH FRANKEL [id number] on April 09, 2024 4:52:00 AM [facility] 54825-4 [facility] Hemogram and platelets WO differential panel - IN AM 0 Routine April 11, 2024 9:00:0 0 AM [facility] JEANNIE Moreno PA-C [id number] on April 09, 2024 5:35:00 AM [facility] 65091-8 [facility] Basic metabolic panel - Blood IN AM 0 Routine April 11, 2024 9:00:0 0 AM [facility] JEANNIE Moreno PA-C [id number] on April 09, 2024 5:35:00 AM [facility] 27993-1 [facility] Magnesium [Mass/volume] in Serum or Plasma IN AM 0 Routine April 11, 2024 9:00:0 0 AM [facility] JEANNIE Moreno PA-C [id number] on April 09, 2024 5:35:00 AM [facility] SCHEDULED PROCEDURES Code System Description Status Scheduled Date Upd ated By Patient scheduled procedure information is not available. MEDICATIONS HOME MEDICATIONS Status [facility] Medication Dose Route Frequency Dates Comments Reported By Updated By Active [id number] 32977 00830 0 Folic Acid Oral Tablet 1 MG 1.0 MG BY MOUTH DAILY Last Dose: PATIENT [id number] on April 09, 2024 4:29:55 AM [facility] Active 357965 69144 41631 8 Lactulose Oral Solution 10 GM/15ML 10.0 GM BY MOUTH TID Last Dose: PATIENT [id number] on April 09, 2024 9:00:32 PM [facility] Active 280791 26061 13007 7 Sevelamer Carbonate Oral Tablet 800 MG 1600. 0 MG BY MOUTH TID Last Dose: PATIENT [id number] on April 09, 2024 4:33:10 AM [facility] Active 300534 83325 78961 1 Acetaminophe n Oral Tablet 325 MG 325.0 MG BY MOUTH QIDPRN Last Dose: PATIENT [id number] on April 10, 2024 5:22:08 PM [facility] Active 363951 50147 92566 1 Melatonin Oral Capsule 5 MG 5.0 MG BY MOUTH BEDTIME Last Dose: PATIENT [id number] on April 09, 2024 4:37:59 AM [facility] Active 859213 19963 04188 5 predniSONE Oral Tablet 5 MG 5.0 MG BY MOUTH DAILY Last Dose: PATIENT [id number] on April 09, 2024 4:39:56 AM [facility] Active 412493 51753 44766 5 Furosemide Oral Tablet 80 MG 80.0 MG BY MOUTH BID Last Dose: PATIENT [id number] on April 09, 2024 9:01:05 PM [facility] Active 412252 33137 11317 0 Omeprazole Oral Capsule Delayed Release 40 MG 40.0 MG BY MOUTH DAILY Last Dose: PATIENT [id number] on April 09, 2024 9:01:05 PM [facility] Active 128973 36583 29142 0 Pantoprazole Sodium Oral Tablet Delayed Release 40 MG 40.0 MG BY MOUTH BETMEALS Last Dose: PATIENT [id number] on April 09, 2024 9:01:05 PM [facility] Active 854990 66417 81901 1 Insulin Aspart Injection Solution 100 UNIT/ML 4.0 UNT SUBCUT ANEOUS ACHS Last Dose: PATIENT [id number] on April 09, 2024 9:01:06 PM [facility] Active 780461 95374 93416 0 Insulin Glargine Subcutaneous Solution 100 UNIT/ML 6.0 UNT SUBCUT ANEOUS DAILY Last Dose: PATIENT [id number] on April 09, 2024 9:01:05 PM [facility] Active 646319 12503 88809 0 Atorvastatin Calcium Oral Tablet 20 MG 20.0 MG BY MOUTH BEDTIME Last Dose: PATIENT [id number] on April 09, 2024 4:52:57 AM [facility] Active 6911917 44971 37764 8 Albuterol Sulfate HFA Inhalation Aerosol Solution 108 (90 Base) MCG/ACT 2.0 PUF INHALE D [id number] Last Dose: [id number] on April 10, 2024 5:22:31 PM [facility] Active 764525 77574 37234 1 Bisoprolol Fumarate Oral Tablet 10 MG 10.0 MG BY MOUTH DAILY Last Dose: PATIENT [id number] on April 09, 2024 5:00:45 AM [facility] DISCHARGE MEDICATIONS Status [facility] Medication Dose Route Frequency Dates Comments Physician Updated By Continue d 058842 8413 5014 600 Omeprazole Oral Capsule Delayed Release 40 MG 40.0 MG BY MOUTH ONCE DAILY Prescr ibed: April 10, 2024 5:23:3 0 PM [facility] KORIN Mercado MD PHY [id number] on April 10, 2024 5:23:30 PM UT Continue d 454272 5969 1078 230 Pantoprazol e Sodium Oral Tablet Delayed Release 40 MG 40.0 MG BY MOUTH BETWEEN MEALS Prescr ibed: April 10, 2024 5:23:3 0 PM [facility] KORIN Mercado MD PHY [id number] on April 10, 2024 5:23:30 PM [facility] Continue d 851287 6111 1021 401 Melatonin Oral Capsule 5 MG 5.0 MG BY MOUTH AT BEDTIME Prescr ibed: April 10, 2024 5:23:3 0 PM UT KORIN Mercado MD, PHY [id number] on April 10, 2024 5:23:30 PM [facility] Continue d 402290 7602 0618 400 Insulin Glargine Subcutaneou s Solution 100 UNIT/ML 6.0 UNT SUBCUT ANEOUS ONCE DAILY Prescr ibed: April 10, 2024 5:23:3 0 PM [facility] KORIN Mercado MD PHY [id number] on April 10, 2024 5:23:30 PM [facility] Continue d 389176 8653 1057 708 Lactulose Oral Solution 10 GM/15ML 10.0 GM BY MOUTH THREE TIMES A DAY Prescr ibed: April 10, 2024 5:23:3 0 PM [facility] KORIN Mercado MD PHY [id number] on April 10, 2024 5:23:30 PM UT Continue d 025304 0948 4430 125 Furosemide Oral Tablet 80 MG 80.0 MG BY MOUTH TWICE A DAY Prescr ibed: April 10, 2024 5:23:3 0 PM UT KORIN Mercado MD PHY [id number] on April 10, 2024 5:23:30 PM UT Continue d 161397 1055 0010 011 Insulin Aspart Injection Solution 100 UNIT/ML 4.0 UNT SUBCUT ANEOUS BEFORE EACH MEAL AND AT BEDTIME Prescr ibed: April 10, 2024 5:23:3 0 PM UT KORIN Mercado MD PHY [id number] on April 10, 2024 5:23:30 PM UTC Continue d 847753 7405 2008 70 Bisoprolol Fumarate Oral Tablet 10 MG 10.0 MG BY MOUTH ONCE DAILY Prescr ibed: April 10, 2024 5:23:3 0 PM UTC KORIN Mercado MD PHY [id number] on April 10, 2024 5:23:30 PM UTC Continue d 459611 8086 9056 301 Acetaminoph en Oral Tablet 325 MG 325.0 MG BY MOUTH FOUR TIMES A DAY NEEDED Prescr ibed: April 10, 2024 5:23:3 0 PM UTC KORIN Mercado MD PHY [id number] on April 10, 2024 5:23:30 PM UTC Continue d 933241 9891 9049 230 Folic Acid Oral Tablet 1 MG 1.0 MG BY MOUTH ONCE DAILY Prescr ibed: April 10, 2024 5:23:3 0 PM UT KORIN Mercado MD PHY [id number] on April 10, 2024 5:23:30 PM UTC Continue d 0295047 6699 3001 968 Albuterol Sulfate HFA Inhalation Aerosol Solution 108 (90 Base) MCG/ACT 2.0 PUF INHALE D EVERY FOUR HOURS NEEDED (RESPIRATO RY) Prescr ibed: April 10, 2024 5:23:3 0 PM UT KORIN Mercado MD PHY [id number] on April 10, 2024 5:23:30 PM UTC Continue d 108229 6921 2091 127 Sevelamer Carbonate Oral Tablet 800 MG 1600. 0 MG BY MOUTH THREE TIMES A DAY Prescr ibed: April 10, 2024 5:23:3 0 PM UTC KORIN Mercado MD PHY [id number] on April 10, 2024 5:23:30 PM UTC Continue d 006448 0725 4472 825 predniSONE Oral Tablet 5 MG 5.0 MG BY MOUTH ONCE DAILY Prescr ibed: April 10, 2024 5:23:3 0 PM UT KORIN Mercado MD PHY [id number] on April 10, 2024 5:23:30 PM UTC Continue d 973451 4753 4082 890 Atorvastati n Calcium Oral Tablet 20 MG 20.0 MG BY MOUTH AT BEDTIME Prescr ibed: April 10, 2024 5:23:3 0 PM UT KORIN Mercado MD PHY [id number] on April 10, 2024 5:23:30 PM [facility] INPATIENT MEDICATIONS Status [facility] Medication Dose Route Frequency Rat e Quantity Dates Comments Physician Updated By Disclida inued 144812 898056 7827 3833 147 nicotine TD (NICODERM) 14 MH/24HR PT24 14.0 MG TRANSD ERMAL ONCE DAILY NEEDED Start: April 09, 2024 5:31:0 0 AM UT End: April 10, 2024 5:23:3 0 PM UT JEANNIE Moreno PA-C [id number] on April 09, 2024 5:34:00 AM UT Discont inued 1911 6418 121 MONOJECT FLUSH SYRINGE 0.9 % SOLN 10.0 ML INTRAV ENOUS TWICE A DAY Start: April 09, 2024 1:00:0 0 PM UT End: April 10, 2024 5:23:3 0 PM UT JEANNIE oMreno PA-C [id number] on April 09, 2024 5:34:00 AM UT Discont inued 354263 47958930 4561 027 hydrALAZINE (APRESOLINE ) 20 MG/ML SOLN 10.0 MG INTRAV ENOUS EVERY FOUR HOURS NEEDED Start: April 09, 2024 5:31:0 0 AM UTC End: April 10, 2024 5:23:3 0 PM UT JEANNIE Moreno PA-C [id number] on April 09, 2024 5:34:00 AM UT Discont inued 8293136 4604 9233 934 LABETALOL 5 MG/ML SOLN 10.0 MG INTRAV ENOUS EVERY TWO HOURS NEEDED Start: April 09, 2024 5:31:0 0 AM UTC End: April 10, 2024 5:23:3 0 PM UTC JEANNIE Moreno PA-C [id number] on April 09, 2024 5:34:00 AM UT Discont inued 0012 1176 130 MAG-AL PLUS 200-200-20 MG/5 ML LIQD 30.0 ML BY MOUTH EVERY SIX HOURS NEEDED Start: April 09, 2024 5:31:0 0 AM UTC End: April 10, 2024 5:23:3 0 PM UT JEANNIE Moreno PA-C [id number] on April 09, 2024 5:34:00 AM UTC Discont inued 341665 7388 4677 361 ACETAMINOPH EN 325 MG TABS 650.0 MG BY MOUTH EVERY SIX HOURS NEEDED Start: April 09, 2024 5:31:0 0 AM UTC End: April 10, 2024 5:23:3 0 PM UTC JEANNIE Moreno PA-C [id number] on April 09, 2024 5:34:00 AM UTC Discont inued 169169 1552 0020 200 PANTOPRAZOL E SODIUM 40 MG SOLR 40.0 MG INTRAV ENOUS ONCE DAILY Start: April 09, 2024 1:00:0 0 PM UTC End: April 10, 2024 5:23:3 0 PM UTC JEANNIE Moreno PA-C [id number] on April 09, 2024 5:34:00 AM UTC Discont inued 9822912 7960 9475 503 ondansetron (ZOFRAN) 4 MG/2ML SOLN 4.0 MG INTRAV ENOUS EVERY EIGHT HOURS NEEDED Start: April 09, 2024 5:31:0 0 AM UTC End: April 10, 2024 5:23:3 0 PM UTC JEANNIE Moreno PA-C [id number] on April 09, 2024 5:34:00 AM UTC Discont inued 199475 4602 6024 064 ondansetron (ZOFRAN) 4 MG TBDP 4.0 MG SUBLIN GUAL EVERY EIGHT HOURS NEEDED Start: April 09, 2024 5:31:0 0 AM UTC End: April 10, 2024 5:23:3 0 PM UTC JEANNIE Moreno PA-C [id number] on April 09, 2024 5:34:00 AM UTC Discont inued 6442967 0248 9610 204 furosemide 40mg vial (LASIX) 10 MG/ML SOLN 40.0 MG INTRAV ENOUS ONE TIME ONLY Start: April 09, 2024 7:12:0 0 AM UTC End: April 09, 2024 7:12:0 0 AM UTC [facility] on April 09, 2024 7:11:00 AM UTC Discont inued 9741339 3558 9610 204 furosemide 40mg vial (LASIX) 10 MG/ML SOLN 40.0 MG INTRAV ENOUS NOW Start: April 09, 2024 7:20:0 0 AM UTC End: April 09, 2024 7:45:5 4 AM UTC JES HARRISON MD [id number] on April 09, 2024 7:54:00 AM UTC Discont inued 5223407 3145 9610 204 furosemide 40mg vial (LASIX) 10 MG/ML SOLN 80.0 MG INTRAV ENOUS NOW Start: April 09, 2024 7:45:0 0 AM UTC End: April 09, 2024 7:47:1 5 AM UTC JES HARRISON MD [id number] on April 09, 2024 7:54:00 AM UTC Discont inued Free Text Med predniSONE Oral Tablet 5 MG 5.0 MG BY MOUTH ONCE DAILY Start: April 10, 2024 1:00:0 0 PM UTC End: April 10, 2024 1:00:0 0 PM UTC [facility] on April 09, 2024 9:52:00 PM UTC Discont inued Free Text Med Sevelamer Carbonate Oral Tablet 800 MG 1600. 0 MG BY MOUTH THREE TIMES A DAY Start: April 10, 2024 1:00:0 0 AM UTC End: April 10, 2024 1:00:0 0 AM UTC [facility] on April 09, 2024 9:53:00 PM UTC Discont inued 661145 5331 1115 430 LACTULOSE 10 GM/15ML SOLN 10.0 GM BY MOUTH THREE TIMES A DAY Start: April 09, 2024 9:00:0 0 PM UTC End: April 09, 2024 9:50:2 7 PM UTC [facility] [id number] on April 09, 2024 9:50:00 PM UTC Discont inued Free Text Med Melatonin Oral Capsule 5 MG 5.0 MG BY MOUTH AT BEDTIME Start: April 10, 2024 1:00:0 0 AM UTC End: April 10, 2024 1:00:0 0 AM UTC [facility] JRICE on April 09, 2024 9:50:00 PM UTC Discont inued 797727 6438 7040 211 metoprolol succinate 50MG TB24 50 MG TB24 100.0 MG BY MOUTH ONCE DAILY Start: April 09, 2024 8:59:0 0 PM UTC End: April 09, 2024 9:51:0 4 PM UTC [facility] on April 09, 2024 9:51:00 PM UTC Active 459126 0752 4089 701 folic acid (FOLATE) 1 MG TABS 1.0 MG BY MOUTH ONCE DAILY Start: April 10, 2024 1:00:0 0 PM UTC End: April 10, 2024 6:48:0 0 PM UTC [facility] [id number] on April 09, 2024 9:01:00 PM UTC Discont inued Free Text Med Atorvastati n Calcium Oral Tablet 20 MG 20.0 MG BY MOUTH AT BEDTIME Start: April 10, 2024 1:00:0 0 AM UTC End: April 10, 2024 1:00:0 0 AM UTC [facility] on April 09, 2024 9:49:00 PM UTC Discont inued 005178 8753 2751 017 insulin lispro(LAURA LOG) 100 UNIT/ML SOLN 1.0 UNT SUBCUT ANEOUS SLIDING SCALE NEEDED Start: April 09, 2024 9:25:0 0 PM UTC End: April 10, 2024 5:23:3 0 PM UTC [facility] [id number] on April 09, 2024 9:25:00 PM UTC Discont inued 0200396 8255 9490 264 dextrose SYR (D50) PFS 50 % SOLN 50.0 ML INTRAV ENOUS NEEDED Start: April 09, 2024 9:25:0 0 PM UTC End: April 10, 2024 5:23:3 0 PM UTC [facility] [id number] on April 09, 2024 9:25:00 PM UTC Discont inued 219018 9247 1015 540 atorvastati n calcium (LIPITOR) 10 MG TABS 20.0 MG BY MOUTH AT BEDTIME Start: April 10, 2024 1:00:0 0 AM UTC End: April 10, 2024 5:23:3 0 PM UTC [facility] on April 09, 2024 9:49:00 PM UT Active 245165 7455 1115 430 LACTULOSE 10 GM/15ML SOLN 10.0 GM BY MOUTH THREE TIMES A DAY Start: April 09, 2024 9:50:0 0 PM UTC End: April 10, 2024 6:48:0 0 PM UTC [facility] on April 09, 2024 9:50:00 PM UTC Discont inued 804351 6497 1001 406 melatonin 3 MG TABS 4.5 MG BY MOUTH AT BEDTIME Start: April 10, 2024 1:00:0 0 AM UTC End: April 10, 2024 5:23:3 0 PM UTC [facility] on April 09, 2024 9:50:00 PM UTC Discont inued 777724 9560 7040 211 metoprolol succinate 50MG TB24 50 MG TB24 100.0 MG BY MOUTH ONCE DAILY Start: April 09, 2024 9:51:0 0 PM UTC End: April 10, 2024 5:23:3 0 PM UTC [facility] on April 09, 2024 9:51:00 PM UTC Discont inued 597173 4790 4872 425 predniSONE 5 MG TABS 5.0 MG BY MOUTH ONCE DAILY Start: April 10, 2024 1:00:0 0 PM UTC End: April 10, 2024 1:00:0 0 PM UTC [facility] [id number] on April 10, 2024 11:55:00 AM UT Active 852300 8703 8013 001 sevelamer (RENVELA) 800 MG TABS 1600. 0 MG BY MOUTH THREE TIMES A DAY Start: April 10, 2024 1:00:0 0 AM UTC End: April 10, 2024 6:48:0 0 PM UTC [facility] on April 09, 2024 9:53:00 PM UTC Discont inued 564789 9440 4001 720 predniSONE 10 MG TABS 5.0 MG BY MOUTH ONCE DAILY Start: April 10, 2024 1:00:0 0 PM UTC End: April 10, 2024 5:23:3 0 PM UTC [facility] [id number] on April 10, 2024 11:55:00 AM UT Active XXXX XXX0 063 *PATIENT INFORMATION MIS 1.0 EA SEE COMMEN TS NEEDED Start: April 10, 2024 5:23:0 0 PM UTC End: April 10, 2024 6:48:0 0 PM UTC KORIN Mercado MD [id number] on April 10, 2024 5:24:00 PM UT SOCIAL HISTORY SOCIAL HISTORY SNOMED-CT Social History Element Description Effective Dates Offered Cessation Comment UpdatedBy [id number] Current Tobacco smoking status Never Smoked [id number] on April 09, 2024 12:49:37 PM UT [...] for each vital sign as of April 10, 2024 7:48:19 PM UT Loinc Code Vital Sign Activity Date Result Updated By 8302-2 Body height April 09, 2024 4:23:42 AM UT 170.18 cm (67.0 in) [id number] on April 09, 2024 4:23:42 [place] [address]-5 Body mass index (BMI ) [Ratio] April 09, 2024 4:23:42 AM UTC 27.876 kg/m2 [id number] on April 09, 2024 4:23:42 AM UT 3140-1 Body Surface Area Derived From Formula April 09, 2024 4:23:42 AM UT 1.9244 m2 [id number] on April 09, 2024 4:23:42 AM UT 8310-5 Body temperature April 10, 2024 3:49:00 PM UTC 97.7 [degF] [id number] on April 10, 2024 3:49:17 [place] [address]-8 Body weight Measured April 09 4:23:42 AM UTC 80.739 kg (178.0 lb) [id number] on April 09, 2024 4:23:42 AM UT 8462-4 Diastolic blood pressure April 10, 2024 3:48:00 PM UTC 57.0 mm[Hg] [id number] on April 10, 2024 3:48:37 PM UTC 8867-4 Heart rate April 10, 2024 3:48:00 PM UTC 70 /min [id number] on April 10, 2024 3:48:37 PM UTC 87163-9 Oxygen saturation in Arterial blood by Pulse oximetry April 10, 2024 3:48:00 PM UTC 92.0 % [id number] on April 10, 2024 3:48:37 PM UTC 9279-1 Respiratory rate April 10, 2024 3:48:00 PM UTC 18 /min [id number] on April 10, 2024 3:48:[place] [address]-7 Spirometry panel April 10, 2024 12:49:00 PM UTC 10.0 {score} [id number] on April 10, 2024 12:49:05 PM UTC 8480-6 Systolic blood pressure April 10, 2024 3:48:00 PM UTC 116.0 mm[Hg] [id number] on April 10, 2024 3:48:37 PM UT PEDIATRIC GROWTH CHART - VITAL SIGNS This [...] ASE Admission April 09, 2024 5:35:00 AM UTC [address] [address] Discharge April 10, 2024 6:48:00 PM UTC DIS CHARGED TO HOME OR SELF CARE ENCOUNTER DIAGNOSES Note Title Nurse Discharge Note Date Of Service April 10, 2024 6:42:2 4 PM UTC Created By RICK on April 10, 2024 6:42:24 PM UTC Signed By RICK on April 10, 2024 6:42:43 PM UTC Code System Diagnosis Onset Date 82574350 SNOMED-CT End-stage renal disease ABSTRACT DIAGNOSES Code System Diagnosis Updated By Abstract Diagnosis informati on is not available. CARE TEAM Care Iron Miner Role ELLIOTT GARCIA Primary Care MARLYS DARLING Primary Attending MARLYS DARLING Referring MARLYS DARLING Admitting HOSPITAL DISCHARGE INSTRUCTION DISCHARGE INSTRUCTION Encounter [id number] Admit Date April 09, 2024 5:35:0 0 AM UTC Discharge Date April 10, 2024 6:48:0 0 PM UTC PATIENT EDUCATION SUMMARY Patient/Visit Information: Patient Name: THAO BUSTILLOS Diag: Attending Caregiver: PHONG FRANKEL Discharge Instruction Sheets Provided: *[facility] *BRBN Social Determinants of Health *BRBN Suicidal Feelings: How to Help Yourself (LPNT) () Chronic Kidney Disease, Adult, Xpyp-jg-Lyyo End-Stage Kidney Disease Food Basics for Chronic Kidney Disease Smoking\Tobacco Cessation - [facility] () () Patient Instructions: Additional Notes for *[facility] Patient [facility] HD on 04/11 regular time at [facility]. Follow up with PCP in 5-7 days. 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 She presented to [facility] with SOB in the preceding few day. She was dialyzed one day early last week. CT at [facility] revealed pulmonary edema. She was transferred to our facility for emergent dialysis. Past Medical History Hiatal hernia Superior mesenteric artery syndrome, stenosis Gastroesophageal reflux disease Dyslipidemia Atrial fibrillation Complete atrioventricular block, with pacemaker in situ Congestive heart failure Type 2 diabetes mellitus, Insulin dependent Sarcoidosis Cirrhosis of liver End-stage renal disease, Dialysis T schedule Past Surgical History Cardioverter defibrillator procedure [...] PT 9.9 INR 0.90 PTT 22.6 (L) 0155 Chemistry SODIUM 139 K 4.9 CHLORIDE 102 CO2 26 A GAP 11.0 GLUCOSE 170 (H) BUN 49 (H) CREA 11.1 (H) BUN/CREA 4.4 (L) EGFR 3 (L) PROTEIN 7.1 ALBUMIN 3.4 CALCIUM 9.7 KEE COR 10.2 (H) BILI TOT 1.0 AST/SGOT 26 ALT/SGPT 52 ALK PHOS 180 (H) MG 2.6 (H) T4 TOTAL 7.0 TSH 1.31 0155 Hematology WBC 5.7 RBC 3.72 (L) HGB 11.4 (L) HCT 37.1 MCV 99.7 (H) MCH 30.6 MCHC 30.7 (L) PLT S 126 (L) RDW 15.9 (H) MPV 11.1 (H) GRAN% 78.6 (H) LYMPH% 12.1 (L) MONO% 7.9 EOS% 0.7 BASO% 0.2 IG% 0.5 GRAN# 4.48 LYMPH# 0.69 MONO# 0.45 EOS# 0.04 BASO# 0.01 IG# 0.03 MANDIFF? No 0155 Triage Meter BNP 875.0 (H) Imaging [facility] Procedures and Surgeries None Assessment/Plan 1. ESRD on HD 2. Pulmonary edema 3. CHF, unspecified 4. [...] 30mins Electronically signed by PHONG FRANKEL on 0684 CONSULTATION NOTE CONSULTATION NOTE Note Title Nephrologhy Consulta tion Date Of Service April 09, 2024 7:15:0 9 AM UT Created By [id number] on April 09, 2024 7:15:09 AM UTC Signed By [id number] on April 09, 2024 9:00:08 AM UTC Chief Complaint SOB History of Present Illness She is a 73 y/o female with ESRD on HD MWF. She presented to [facility] with SOB. CT scan revealed pulmonary edema, so she was transferred to [facility] for emergency dialysis. Past Medical History ESRD, [...] PT 9.9 INR 0.90 PTT 22.6 (L) 0155 Chemistry SODIUM 139 K 4.9 CHLORIDE 102 [...] VALENZUELA MD on 0500 DISCHARGE SUMMARY NOTE DISCHARGE SUMMARY NOTE Note Title Nurse Discharge Note Date Of Service April 10, 2024 6:42:2 4 PM UTC Created By [id number] on April 10, 2024 6:42:24 PM UTC Signed By [id number] on April 10, 2024 6:42:43 PM UTC Cognitive Status Oriented x4 Functional Status Bilateral Weakness Discharge Diagnosis End-stage renal disease Electronically signed by KATARINA Delgaod RN on 6862 PROGRESS NOTE PROGRESS NOTE Note Title Nephrology Progress Note Date Of Service April 10, 2024 2:48:4 9 PM UTC Created By [id number] on April 10, 2024 2:48:49 PM UTC Signed By [id number] on April 10, 2024 3:10:32 PM UTC [...] previous current encounter day day cumulative Intake 6429 802 1639 Output 301 - 502 Balance 5402 666 9937 Physical Exam Narrative Gen: A&Ox3, no distress [...] VALENZUELA MD on 1110 CARE TEAM CARE maintenance of 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 Role on Team Status Start Date End Date Update d By RADHA Carrasco PCP normal April 09, 2024 12:10:59 AM [facility] April 09, 2024 3:45:38 PM [facility] [id number] on April 09, 2024 12:10:59 AM [facility] PHONG FRANKEL Referring normal April 09, 2024 12:10:59 AM [facility] April 10, 2024 6:48:00 PM [facility] [id number] on April 09, 2024 12:10:59 AM [facility] PHONG FRANKEL Attending normal April 09, 2024 12:10:58 AM [facility] April 10, 2024 6:48:00 PM [facility] [id number] on April 09, 2024 12:10:59 AM [facility] PHONG FRANKEL Admitting normal April 09, 2024 12:10:58 AM [facility] April 10, 2024 6:48:00 PM [facility] [id number] on April 09, 2024 12:10:59 AM [facility]
[2024-06-24] MEDS: ASPIRIN 81MG CHEWABLE TABLET 324 MG PO (06:09)
[2024-06-24] MEDS: FUROSEMIDE 100MG/10ML VIAL 80 MG IV (06:11)
--- NOTE | 2024-06-24 06:12 | [facility].EDCP ---
Discharge Plan Disposition Patient Disposition: Xfer Other Chief Complaint: Chest Pain Prescriptions Prescriptions: No Action atorvastatin 20 mg tablet 20 mg PO HS Qty: 30 5RF prednisone 10 mg tablet 5 mg PO DAILY acetaminophen [Tylenol] 325 mg capsule 325 mg PO QID PRN (Reason: Mild Pain) insulin aspart U-100 100 unit/mL (3 mL) insulin pen 4 unit SQ ACHS insulin glargine 100 unit/mL (3 mL) insulin pen 6 unit SQ DAILY melatonin 5 mg capsule 5 mg PO HS omeprazole 40 mg capsule,delayed release(DR/EC) 40 mg PO DAILY Patient Comments: TAKE 1 CAPSULE BY MOUTH ONCE DAILY. DO NOT CRUSH OR CHEW furosemide 80 mg tablet 80 mg PO BID Patient Comments: TAKE 1 TABLET BY MOUTH TWICE DAILY bisoprolol fumarate 10 mg tablet 10 mg PO DAILY Qty: 31 11RF folic acid 1 MG tablet 1 mg PO DAILY lactulose 10 GM/15 ML solution 20 g PO TID sevelamer carbonate 800 MG tablet 1,600 mg PO TID rifaximin 550 mg tablet 550 mg PO BID albuterol sulfate 90 mcg/actuation HFA aerosol inhaler 4 inh inhalation Q4H PRN (Reason: shortness of breath or wheezing) Qty: 8.5 0RF Rx Instructions: 4 puffs every 4 hours for 48 hours then as needed for shortness of breath or wheezing following pantoprazole 40 mg tablet,delayed release (DR/EC) 40 mg PO BID Patient Comments: TAKE 1 TABLET BY MOUTH TWICE DAILY 30 MINUTES BEFORE BREAKFAST AND DINNER methocarbamol 750 mg tablet 750 mg PO TID 5 Days Qty: 15 0RF Referrals Follow up/Referrals: Aldo Juarez MD [Primary Care Provider] - See instructions Clinical Impressions Clinical Impression: Pulmonary edema, Chest pain, CHF exacerbation, ESRD (end stage renal disease) Print Language Print Language: [place] Citizen Discharge ED Provider: Sean rPater [facility] <Sean Prater MD - Last Filed: 06/24/24 07:22> General Chief Complaint: Chest Pain Stated Complaint: breathing difficulties Time Seen by Provider: 06/24/24 05:47 Mode of Arrival: EMS Source of Information: Patient Limitations: No Limitations Description of Symptoms (Recalled from ER Triage Doc. by RN): Patient presented to the ED for SOA and CP that radiates into her back. Patient states she just suddenly woke up feeling like she couldn't breath and had chest/ back pain. Patient wears 2L/NC baseline at home and has dialysis Monday, , and Monday and has not missed an appointment. History of Present Illness HPI narrative: 73-year-old female presents to the ER with complaints of shortness of breath, chest pain. Patient states she suddenly woke up feeling like she could not breathe and had left-sided chest and back pain. Patient wears 2 L nasal cannula at baseline, history of A-fib no longer on blood thinners, dialysis Monday, , Monday, has not missed any appointments. Patient reports that her last dialysis session they did not pull as much fluid because they reported she did not have as much on her. She does still make a small amount of urine and takes daily fluid pills. EMS administered breathing treatment and route but patient reports this do not not change her symptoms. Patient denies any history of PR or stroke. Patient denies any congestion, headache, dizziness, vomiting, though she does report nausea. Related Data Home Medications ?Medication ?Instructions ?Recorded ?Confirmed folic acid 1 mg tablet 1 mg PO DAILY Supplement 11/29/20 09/11/23 lactulose 10 gram/15 mL oral 20 g PO TID liver 11/29/20 09/11/23 solution sevelamer carbonate 800 mg tablet 1,600 mg PO TID Kidney failure 11/29/20 09/11/23 acetaminophen 325 mg capsule 325 mg PO QID PRN Mild Pain 03/23/21 09/11/23 (Tylenol) insulin aspart U-100 100 unit/mL 4 unit SQ ACHS Diabetes 03/23/21 09/11/23 (3 mL) subcutaneous pen insulin glargine 100 unit/mL (3 6 unit SQ DAILY Diabetes 03/23/21 09/11/23 mL) subcutaneous pen melatonin 5 mg capsule 5 mg PO HS Sleep 03/23/21 09/11/23 prednisone 10 mg tablet 5 mg PO DAILY . 03/23/21 09/11/23 rifaximin 550 mg tablet 550 mg PO BID unk 03/23/21 09/11/23 furosemide 80 mg tablet 80 mg PO BID Fluid 10/12/22 09/11/23 omeprazole 40 mg capsule,delayed 40 mg PO DAILY GERD 10/12/22 09/11/23 release pantoprazole 40 mg tablet,delayed 40 mg PO BID 09/11/23 09/11/23 release Previous Rx's ?Medication ?Instructions ?Recorded atorvastatin 20 mg tablet 20 mg PO HS Cholesterol #30 tabs 10/26/22 albuterol sulfate 90 mcg/actuation 4 inh inhalation Q4H PRN shortness 07/25/23 aerosol inhaler of breath or wheezing #8.5 grams bisoprolol fumarate 10 mg tablet 10 mg PO DAILY #31 tabs 09/18/23 methocarbamol 750 mg tablet 750 mg PO TID 5 days #15 tabs 01/10/24 Allergies Allergy/AdvReac Type Severity Reaction Status Date / Time ceftriaxone Allergy Severe Anaphylaxis Verified 07/27/23 01:46 [facility] <Sean Prater MD - Last Filed: 06/24/24 07:22> [facility] Disclaimer: The information contained in this section may have been updated after the patient was seen, as this information can be updated by other users. Medical History (Updated 06/24/24 @ 09:14 by Bozena Ogden MD) Arteriovenous fistula of right upper extremity Diabetes Abnormal result of cardiovascular function study Typical angina Automatic implantable cardioverter-defibrillator in situ Chronic a-fib Surgical History History of cardiac cath Social History Smoking Status: Never smoker second hand exposure: No alcohol intake: never substance use type: other current occupational status: disabled Travel in the last 8 weeks: None household members: spouse housing: house current occupational exposures/hazards: No caffeine: No <Sean Prater MD - Last Filed: 06/24/24 07:22> ROS Obtained: Yes All systems reviewed & no additional complaints except as documented Positive ROS per HPI Physical Exam <Sean Prater MD - Last Filed: 06/24/24 07:22> General General appearance: alert, in distress and obese Comment: Chronically ill-appearing, increased work of breathing, appears to be in pain Head Head exam: atraumatic and normocephalic Eye Eye exam: Present PERRL and EOMI ENT ENT exam: Present mucous membranes moist Neck Neck exam: Present normal inspection and full ROM Chest Chest inspection: Present symmetric chest wall rise; Absent tenderness Respiratory Respiratory exam: Present wheezes (Mild bilateral but decent air movement in both lungs) and other (Tachypneic, no stridor); Absent respiratory distress or stridor Cardiovascular Cardiovascular exam: Present regular rate and normal rhythm Abdominal Exam Abdominal exam: Present soft; Absent distention, tenderness, guarding or rebound Extremities Exam Extremities exam: Present full ROM; Absent edema Back Exam Back exam: Absent CVA tenderness (R) or CVA tenderness (L) Neurological Exam Neurological exam: Present alert and oriented X3; Absent motor sensory deficit Psychiatric Psychiatric exam: Present normal affect and normal mood Skin Skin exam: Present warm and dry HEART Score <Sean Prater MD - Last Filed: 06/24/24 07:22> HEART Score HEART Score assessment performed?: Yes History (anamnesis): Moderately suspicious ECG: Non-specific disturbance Age: >65 years Risk factors: 3 or more risk factors Troponin: </= normal limit HEART Score: 6 <Bozena Ogden MD - Last Filed: 06/24/24 09:14> HEART Score HEART Score: 6 Procedures <Sean Prater MD - Last Filed: 06/24/24 07:22> Miscellaneous Procedure Procedure Performed: Limited lung ultrasound A focused ultrasound exam of the pleural spaces was performed to evaluate for pneumothorax, pulmonary edema, pleural effusion and/or consolidation. The ultrasound was performed with the following indications, as noted in the H&P: Chest pain, difficulty breathing Identified structures: Bilateral thoracic cavities were examined. Findings: Lung sliding: -Present B-lines: Mild present bilaterally anterior and posterior Pleural effusion: -Present bilaterally Consolidation: Not obviously appreciated bilaterally Impression: Bilateral B-lines and pleural effusions without consolidation or pneumothorax Images were saved to permanent archive The study was technically adequate CPT 83002-26 This study was performed by tn, and I personally interpreted all images/videos. Based on my clinical judgement, these images were adequate and did not necessitate further imaging. Limited Cardiac Ultrasound Indication: Chest pain, shortness of breath Identified cardiac views: Apical four-chamber Findings: Cardiac activity present without gross wall motion abnormality, small pericardial effusion Impression: -No gross wall motion abnormality, small pericardial effusion Images were saved to permanent archive The study was technically adequate CPT: 92035 This study was performed by tn, and I personally interpreted all images/videos. Based on my clinical judgement, these images were adequate and did not necessitate further imaging. Critical Care <Sean Prater MD - Last Filed: 06/24/24 07:22> Critical Care Time Critical Care Time: No <Bozena Ogden MD - Last Filed: 06/24/24 09:14> Critical Care Time Critical Care Time: Yes Attestation: On 06/24/24, the high probability of a clinically significant, sudden or life threatening deterioration of the following system(s) required my full and direct attention, intervention and personal management. The time I documented below is in addition to time spent performing reported procedures but includes the following listed in this critical care notation. Total Time Total Critical Care Time: 35 Medical Decision Making <Sean Prater MD - Last Filed: 06/24/24 07:22> Medical Records Medical records reviewed: Yes I reviewed the patient's medical records. MR Comment: Review of recent records demonstrates patient was evaluated in the ER for dyspnea and required transfer for hospital admission due to CHF exacerbation and continued dialysis management. She was transferred to [facility] for this purpose. At that time patient was on 4 L nasal cannula when she arrived but able to be weaned down to 2 in the ED. Rudy Inquiry Pt receiving controlled substance: No Vital Signs Vital Signs: 06/24/24 05:46 06/24/24 06:15 06/24/24 07:01 Temperature 97.9 F Temperature Source Oral Pulse Rate 77 73 Pulse Rate [Left Brachial] 102 H Respiratory Rate 36 H 26 H 19 Blood Pressure 128/85 134/82 Blood Pressure [Left Arm] 163/114 H Blood Pressure Mean Blood Pressure Mean [Left Arm] 130 02 Sat by Pulse Oximetry 96 96 99 Oxygen Delivery Method Nasal Cannula Nasal Cannula Nasal Cannula Oxygen Flow Rate (LPM) 4 2 06/24/24 07:26 06/24/24 07:31 06/24/24 08:01 Temperature Temperature Source Pulse Rate 77 71 71 Pulse Rate [Left Brachial] Respiratory Rate 18 29 H Blood Pressure 129/83 134/84 Blood Pressure [Left Arm] Blood Pressure Mean Blood Pressure Mean [Left Arm] 02 Sat by Pulse Oximetry 100 100 Oxygen Delivery Method Nasal Cannula Room Air Oxygen Flow Rate (LPM) 06/24/24 08:31 Temperature Temperature Source Pulse Rate 70 Pulse Rate [Left Brachial] Respiratory Rate Blood Pressure 127/84 Blood Pressure [Left Arm] Blood Pressure Mean 89 Blood Pressure Mean [Left Arm] 02 Sat by Pulse Oximetry 100 Oxygen Delivery Method Room Air Oxygen Flow Rate (LPM) Lab Data Labs: Lab Results 06/24/24 06:00: WBC 6.4, RBC 3.30 L, Hgb 10.3 L, Hct 35.2 L, MCV 106.8 H, MCH 31.3 H, MCHC 29.3 L, RDW 18.2 H, Plt Count 231, MPV 8.1, Neut % (Auto) 77.3, Lymph % (Auto) 15.4, Wilkin % (Auto) 5.7, Eos % (Auto) 1.3, Baso % (Auto) 0.4, Neut # (Auto) 4.9, Lymph # (Auto) 1.0, Wilkin # (Auto) 0.4, Eos # (Auto) 0.1, Baso # (Auto) 0.0, Sodium 138, Potassium 4.9, Chloride 101, Carbon Dioxide 29, Anion Gap 12.9, BUN 27 H, Creatinine 6.80 H, Estimated Creat Clear 10, Estimated GFR 6 L*, Est GFR ( Amer) 7 L*, Glucose 147 H, Calcium 8.9, Troponin I 0.03, NT-Pro-B Natriuret Pep 68809 H 06/24/24 06:07: VBG pH 7.30 L, VBG pCO2 48.5, VBG pO2 55.1 H, VBG HCO3 23.4, VBG Total CO2 24.9, VBG O2 Saturation 84.7 H, VBG Base Excess -3.0 L, VBG Lactic Acid 1.9 06/24/24 08:30: Troponin I 0.03 06/24/24 06:00 06/24/24 06:00 Response Orders (Tests/Meds): ED MEDICATIONS Generic Name Dose Route Start Last Admin Trade Name Freq PRN Reason Stop Dose Admin Nitroglycerin 0.4 mg 06/24/24 05:47 Nitroglycerin 0.4mg Sl Tablet SL 06/25/24 05:47 [id number] PRN Chest Pain Discontinued Medications Generic Name Dose Route Start Last Admin Trade Name Freq PRN Reason Stop Dose Admin Aspirin 324 mg 06/24/24 05:47 06/24/24 06:09 Aspirin 81mg Chewable Tablet PO 06/24/24 05:48 324 mg ONCE ONE Administration Furosemide 80 mg 06/24/24 06:08 06/24/24 06:11 Furosemide 100mg/10ml Vial IV 06/24/24 06:09 80 mg ONCE ONE Administration Metoprolol Tartrate 5 mg 06/24/24 05:47 06/24/24 06:32 Metoprolol Tartrate 5mg/5ml Vial IV 06/24/24 05:48 Not Given ONCE ONE ORDERS Category Date Time Status POCUS Point of Care (ER Only) Stat Exams 06/24/24 05:49 Completed XR chest 2V Stat Exams 06/24/24 05:47 Completed BNP [NT Pro Brain Natriuretic Pep.] Stat Lab 06/24/24 06:00 Completed Basic Metabolic Panel Stat Lab 06/24/24 06:00 Completed Complete Blood Count Auto Diff Stat Lab 06/24/24 06:00 Completed Troponin I Q3H Lab 06/24/24 06:00 Completed Troponin I Q3H Lab 06/24/24 08:30 Completed Troponin I Q3H Lab 06/24/24 12:00 Ordered VBG [Venous Blood Gas] Stat RT 06/24/24 06:07 Completed MDM Narrative Medical Decision Narrative: In summary, this 73-year-old female with multiple comorbidities including ESRD on dialysis, CHF which increases overall morbidity and the amount of data to be reviewed presents to the emergency department today with chest pain, shortness of breath. On initial evaluation patient is clearly in pain, tachycardia that was initially present on arrival immediately improved despite patient still being symptomatic, obviously having difficulty breathing, mild wheezing throughout., No peripheral edema appreciated. [id number] ultrasound performed by me at bedside does not demonstrate gross wall motion abnormality, patient does have mild B-lines in bilateral lungs as well as trace pleural effusions bilaterally. Differential diagnosis includes but is not limited to ACS, CHF exacerbation, arrhythmia, electrolyte abnormality, viral syndrome. Based on these concerns, I ordered serum labs, cardiac workup, I had initially considered PE however before CTA PE was performed patient had spontaneous resolution of her symptoms, her heart rate, blood pressure, and chest pain all spontaneously improved which would not happen with a PE. CTA PE canceled.. ECG personally interpreted demonstrates atrial fibrillation, rate 105, left axis deviation, normal QTc, no STEMI, ECG similar to prior which I have reviewed. Patient received IV furosemide for treatment. I had initially ordered metoprolol for heart rate control however patient's heart rate spontaneously improved and this was not administered. I had also ordered nitroglycerin since patient appeared to have findings consistent with flash pulmonary edema and elevated blood pressure, however that her pressure also spontaneously improved. Nitro was not administered. Labs personally reviewed demonstrate BNP elevated at 17,700, elevated above prior, initial troponin 0.03, similar to previous, CMP with obvious findings of kidney dysfunction, patient does have normal potassium, creatinine 6.80, previously known problem for the patient. Patient has persistent mild acidosis with VBG pH 7.30, this is similar to previous VBG's. No leukocytosis, stable anemia.. Chest x-ray personally interpreted demonstrates bilateral pleural effusions pulmonary edema, pacemaker present. See radiology read for final interpretation. On reassessment patient has had spontaneous improvement of symptoms. Serial troponins are necessary at this time given the acute onset of patient's pain radiating to the shoulder concerning for possible ACS. Patient placed into ED observation at 0720 for serial troponins to rule out evolving PR and preclude unnecessary admission. Patient will also be monitored for any recurrence of her symptoms, difficulty breathing, or other complications. Patient handed off to Dr. Ogden at physician shift change for further management and disposition. <Bozena Ogden MD - Last Filed: 06/24/24 09:14> Vital Signs Vital Signs: 06/24/24 05:46 06/24/24 06:15 06/24/24 07:01 Temperature 97.9 F Temperature Source Oral Pulse Rate 77 73 Pulse Rate [Left Brachial] 102 H Respiratory Rate 36 H 26 H 19 Blood Pressure 128/85 134/82 Blood Pressure [Left Arm] 163/114 H Blood Pressure Mean Blood Pressure Mean [Left Arm] 130 02 Sat by Pulse Oximetry 96 96 99 Oxygen Delivery Method Nasal Cannula Nasal Cannula Nasal Cannula Oxygen Flow Rate (LPM) 4 2 06/24/24 07:26 06/24/24 07:31 06/24/24 08:01 Temperature Temperature Source Pulse Rate 77 71 71 Pulse Rate [Left Brachial] Respiratory Rate 18 29 H Blood Pressure 129/83 134/84 Blood Pressure [Left Arm] Blood Pressure Mean Blood Pressure Mean [Left Arm] 02 Sat by Pulse Oximetry 100 100 Oxygen Delivery Method Nasal Cannula Room Air Oxygen Flow Rate (LPM) 06/24/24 08:31 Temperature Temperature Source Pulse Rate 70 Pulse Rate [Left Brachial] Respiratory Rate Blood Pressure 127/84 Blood Pressure [Left Arm] Blood Pressure Mean 89 Blood Pressure Mean [Left Arm] 02 Sat by Pulse Oximetry 100 Oxygen Delivery Method Room Air Oxygen Flow Rate (LPM) Lab Data Lab results reviewed: Yes I reviewed the patient's lab results. Labs: Lab Results 06/24/24 06:00: WBC 6.4, RBC 3.30 L, Hgb 10.3 L, Hct 35.2 L, MCV 106.8 H, MCH 31.3 H, MCHC 29.3 L, RDW 18.2 H, Plt Count 231, MPV 8.1, Neut % (Auto) 77.3, Lymph % (Auto) 15.4, Wilkin % (Auto) 5.7, Eos % (Auto) 1.3, Baso % (Auto) 0.4, Neut # (Auto) 4.9, Lymph # (Auto) 1.0, Wilkin # (Auto) 0.4, Eos # (Auto) 0.1, Baso # (Auto) 0.0, Sodium 138, Potassium 4.9, Chloride 101, Carbon Dioxide 29, Anion Gap 12.9, BUN 27 H, Creatinine 6.80 H, Estimated Creat Clear 10, Estimated GFR 6 L*, Est GFR ( Amer) 7 L*, Glucose 147 H, Calcium 8.9, Troponin I 0.03, NT-Pro-B Natriuret Pep [id number] H 06/24/24 06:07: VBG pH 7.30 L, VBG pCO2 48.5, VBG pO2 55.1 H, VBG HCO3 23.4, VBG Total CO2 24.9, VBG O2 Saturation 84.7 H, VBG Base Excess -3.0 L, VBG Lactic Acid 1.9 06/24/24 08:30: Troponin I 0.03 Response Orders (Tests/Meds): ED MEDICATIONS Generic Name Dose Route Start Last Admin Trade Name Freq PRN Reason Stop Dose Admin Nitroglycerin 0.4 mg 06/24/24 05:47 Nitroglycerin 0.4mg Sl Tablet SL 06/25/24 05:47 [id number] PRN Chest Pain Discontinued Medications Generic Name Dose Route Start Last Admin Trade Name Freq PRN Reason Stop Dose Admin Aspirin 324 mg 06/24/24 05:47 06/24/24 06:09 Aspirin 81mg Chewable Tablet PO 06/24/24 05:48 324 mg ONCE ONE Administration Furosemide 80 mg 06/24/24 06:08 06/24/24 06:11 Furosemide 100mg/10ml Vial IV 06/24/24 06:09 80 mg ONCE ONE Administration Metoprolol Tartrate 5 mg 06/24/24 05:47 06/24/24 06:32 Metoprolol Tartrate 5mg/5ml Vial IV 06/24/24 05:48 Not Given ONCE ONE ORDERS Category Date Time Status POCUS Point of Care (ER Only) Stat Exams 06/24/24 05:49 Completed XR chest 2V Stat Exams 06/24/24 05:47 Completed BNP [NT Pro Brain Natriuretic Pep.] Stat Lab 06/24/24 06:00 Completed Basic Metabolic Panel Stat Lab 06/24/24 06:00 Completed Complete Blood Count Auto Diff Stat Lab 06/24/24 06:00 Completed Troponin I Q3H Lab 06/24/24 06:00 Completed Troponin I Q3H Lab 06/24/24 08:30 Completed Troponin I Q3H Lab 06/24/24 12:00 Ordered VBG [Venous Blood Gas] Stat RT 06/24/24 06:07 Completed MDM Narrative Medical Decision Narrative: In summary, this 73-year-old female with multiple comorbidities including ESRD on dialysis, CHF which increases overall morbidity and the amount of data to be reviewed presents to the emergency department today with chest pain, shortness of breath. On initial evaluation patient is clearly in pain, tachycardia that was initially present on arrival immediately improved despite patient still being symptomatic, obviously having difficulty breathing, mild wheezing throughout., No peripheral edema appreciated. [id number] ultrasound performed by me at bedside does not demonstrate gross wall motion abnormality, patient does have mild B-lines in bilateral lungs as well as trace pleural effusions bilaterally. Differential diagnosis includes but is not limited to ACS, CHF exacerbation, arrhythmia, electrolyte abnormality, viral syndrome. Based on these concerns, I ordered serum labs, cardiac workup, I had initially considered PE however before CTA PE was performed patient had spontaneous resolution of her symptoms, her heart rate, blood pressure, and chest pain all spontaneously improved which would not happen with a PE. CTA PE canceled.. ECG personally interpreted demonstrates atrial fibrillation, rate 105, left axis deviation, normal QTc, no STEMI, ECG similar to prior which I have reviewed. Patient received IV furosemide for treatment. I had initially ordered metoprolol for heart rate control however patient's heart rate spontaneously improved and this was not administered. I had also ordered nitroglycerin since patient appeared to have findings consistent with flash pulmonary edema and elevated blood pressure, however that her pressure also spontaneously improved. Nitro was not administered. Labs personally reviewed demonstrate BNP elevated at 17,700, elevated above prior, initial troponin 0.03, similar to previous, CMP with obvious findings of kidney dysfunction, patient does have normal potassium, creatinine 6.80, previously known problem for the patient. Patient has persistent mild acidosis with VBG pH 7.30, this is similar to previous VBG's. No leukocytosis, stable anemia.. Chest x-ray personally interpreted demonstrates bilateral pleural effusions pulmonary edema, pacemaker present. See radiology read for final interpretation. On reassessment patient has had spontaneous improvement of symptoms. Serial troponins are necessary at this time given the acute onset of patient's pain radiating to the shoulder concerning for possible ACS. Patient placed into ED observation at 0720 for serial troponins to rule out evolving PR and preclude unnecessary admission. Patient will also be monitored for any recurrence of her symptoms, difficulty breathing, or other complications. Patient handed off to Dr. Ogden at physician shift change for further management and disposition. Reassessment this is Dr. Ogden took over from Dr. Prater at around 8 AM. Patient is still symptomatic from the tachypnea standpoint respiratory rate is around 30. She is on 2 L nasal cannula no significant increase in her oxygen requirement. I personally turbid the patient's chest x-ray and she has significant pulmonary edema bilaterally but this is consistent with old chest x-rays. Workup otherwise unremarkable she is significantly improved from her initial presentation I suspect she had some flash pulmonary edema with her hypertension. She had a similar presentation 2 weeks ago at which point I actually saw her and discharged her but she came back within a few hours ultimately got transferred for dialysis. She feels similar today and would not like to go home. I spoke with Dr. Robin at [facility] who accepted the patient for dialysis. No other indication for emergency dialysis but she is volume overloaded and they may dialyze her on a urgent but nonemergent basis.
[2024-06-24 06:19] LABS: Lactate Venous 1.9 mmol/L (0.4-2.0); VBG HCO3 23.4 mmol/L (23-30); VBG Oxygen Saturation 84.7 % (50-70); VBG PCO2 48.5 mmol/L (35-51); VBG PO2 55.1 mmol/L (28-40); VBG Total CO2 24.9 mmol/L (23-27)
[2024-06-24 06:21] LABS: Basophils % 0.4 % (0.1-2.0); Eosinophils # 0.1 K/mm3 (0.0-0.4); Eosinophils % 1.3 % (0.1-12.0); Hematocrit 35.2 % (37.0-47.0); Hemoglobin 10.3 g/dL (12.2-16.2); Lymphocytes % 15.4 % (10-50); Mean Corpuscular HGB Conc 29.3 g/dL (31.8-35.4); Mean Corpuscular Hemoglobin 31.3 pg (27.0-31.2); Mean Corpuscular Volume 106.8 fl (81-99); Mean Platelet Volume 8.1 fl (7.4-10.4); Monocytes # 0.4 K/mm3 (0.1-1.0); Monocytes % 5.7 % (1.7-9.3); Neutrophils # 4.9 K/mm3 (1.8-7.8); Neutrophils % 77.3 % (37.0-80.0); Platelet Count 231 K/mm3 (142-424); Red Cell Distribution Width 18.2 % (11.5-17.5); White Blood Count 6.4 K/mm3 (4.8-10.8)
[2024-06-24 06:23] LABS: Anion Gap 12.9 mEq/L (5-15); Blood Urea Nitrogen 27 mg/dl (7-17); Calcium 8.9 mg/dl (8.4-10.2); Carbon Dioxide 29 mmol/L (22.0-30.0); Chloride 101 mmol/L (98-107); Creatinine Clearance Estimated 10 mL/min (50-200); Estimated Glomerular Filt Rate 6 ml/min (>60); GFR (African American) 7 ML/MIN (>60); Glucose 147 mg/dl (74-100); Potassium 4.9 mmoL/L (3.5-5.1); Sodium 138 mmol/L (136-145)
[2024-06-24 06:35] LABS: NT Pro Brain Natriuretic Pep. 17700 pg/mL (0-125); Troponin I 0.03 ng/ml (0.00-0.034)
--- NOTE | 2024-06-24 08:33 | PC.NURSE ---
Dr. Ogden at bedside updating pt
--- NOTE | 2024-06-24 08:47 | PC.NURSE ---
calling [facility] for transfer for dialysis for [place]
--- NOTE | 2024-06-24 08:48 | PC.NURSE ---
pt given breakfast tray
[2024-06-24 09:03] LABS: Troponin I 0.03 ng/ml (0.00-0.034)
--- NOTE | 2024-06-24 09:09 | PC.NURSE ---
Dr. Ogden s/w [facility] transfer center
--- NOTE | 2024-06-24 09:11 | PC.NURSE ---
call made to radiology for disc for transfer
--- NOTE | 2024-06-24 09:37 | PC.NURSE ---
Faxed face sheet to [facility] transfer center, confirmation page received.
--- NOTE | 2024-06-24 09:44 | PC.NURSE ---
report called to shoshana at [facility] med surg floor. call made to [facility] for transport of pt to [facility]
== END 2024-06-24 10:02 | disposition other institution (70) ==
PROVIDERS: Emergency Provider Emergency Medicine; PCP Family Medicine
DX: J81.1 Chronic pulmonary edema (principal); R06.02 Shortness of breath; R07.9 Chest pain, unspecified; R06.2 Wheezing; I11.0 Hypertensive heart disease with heart failure; I50.9 Heart failure, unspecified; R00.0 Tachycardia, unspecified; I48.0 Paroxysmal atrial fibrillation; N18.6 End stage renal disease; Z99.2 Dependence on renal dialysis; Z95.0 Presence of cardiac pacemaker
CPT/HCPCS: 71046; 80048; 82803; 83880; 84484; 85025; 93005; 96374; 99285; J1940

== ENCOUNTER 2024-07-08 16:31 | Emergency (ER) | payer MEDICARE, SELFPAY ==
[2024-07-08 16:40] VITALS: BP 150/93; PULSE 66; O2SAT 90
[2024-07-08 16:48] VITALS: BP 150/93; PULSE 73; RESP 16; TEMP 36.5; O2SAT 95; BMI 29.8
--- NOTE | 2024-07-08 16:54 | ED_ITS ---
Discharge Plan Disposition Patient Disposition: Xfer Short-Term Hosp Prescriptions Prescriptions: No Action atorvastatin 20 mg tablet 20 mg PO HS Qty: 30 5RF prednisone 10 mg tablet 5 mg PO DAILY acetaminophen [Tylenol] 325 mg capsule 325 mg PO QID PRN (Reason: Mild Pain) insulin aspart U-100 100 unit/mL (3 mL) insulin pen 4 unit SQ ACHS insulin glargine 100 unit/mL (3 mL) insulin pen 6 unit SQ DAILY melatonin 5 mg capsule 5 mg PO HS omeprazole 40 mg capsule,delayed release(DR/EC) 40 mg PO DAILY Patient Comments: TAKE 1 CAPSULE BY MOUTH ONCE DAILY. DO NOT CRUSH OR CHEW furosemide 80 mg tablet 80 mg PO BID Patient Comments: TAKE 1 TABLET BY MOUTH TWICE DAILY bisoprolol fumarate 10 mg tablet 10 mg PO DAILY Qty: 31 11RF folic acid 1 MG tablet 1 mg PO DAILY lactulose 10 GM/15 ML solution 20 g PO TID sevelamer carbonate 800 MG tablet 1,600 mg PO TID rifaximin 550 mg tablet 550 mg PO BID albuterol sulfate 90 mcg/actuation HFA aerosol inhaler 4 inh inhalation Q4H PRN (Reason: shortness of breath or wheezing) Qty: 8.5 0RF Rx Instructions: 4 puffs every 4 hours for 48 hours then as needed for shortness of breath or wheezing following pantoprazole 40 mg tablet,delayed release (DR/EC) 40 mg PO BID Patient Comments: TAKE 1 TABLET BY MOUTH TWICE DAILY 30 MINUTES BEFORE BREAKFAST AND DINNER methocarbamol 750 mg tablet 750 mg PO TID 5 Days Qty: 15 0RF Referrals Follow up/Referrals: Aldo Juarez MD [Primary Care Provider] - See instructions Clinical Impressions Clinical Impression: AV shunt malfunction Stand Alone Forms Stand Alone Forms: Transfer Record - ED Print Language Print Language: Hebrew Discharge ED Provider: Tiarra Atkins General Adult HPI General Chief complaint: Extremity Problem,Nontraumatic Stated complaint: right arm pain, no accident Time Seen by Provider: 07/08/24 16:33 History of Present Illness HPI narrative: This patient is a 73-year-old female with a history of end-stage renal disease on Monday, , Monday dialysis, sarcoidosis, pulmonary hypertension, liver disease, atrial fibrillation, and CHF presenting to the emergency department for evaluation with concern for atraumatic pain, redness, and swelling to her right upper extremity, where her dialysis fistula is. She had it placed at [facility]. It is manage there by interventional radiology. 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 She had angioplasty at that time. She denies any other concerns, such as fevers, chills, chest pain, shortness of breath, abdominal pain, nausea, vomiting, changes bowel movements, or other issues. She denies any history of blood clots or clotting disorders and does not currently take anticoagulation. She just had dialysis on Monday which she tolerated well with no complications. She is scheduled again tomorrow. Related Data Home Medications ?Medication ?Instructions ?Recorded ?Confirmed folic acid 1 mg tablet 1 mg PO DAILY Supplement 11/29/20 09/11/23 lactulose 10 gram/15 mL oral 20 g PO TID liver 11/29/20 09/11/23 solution sevelamer carbonate 800 mg tablet 1,600 mg PO TID Kidney failure 11/29/20 09/11/23 acetaminophen 325 mg capsule 325 mg PO QID PRN Mild Pain 03/23/21 09/11/23 (Tylenol) insulin aspart U-100 100 unit/mL 4 unit SQ ACHS Diabetes 03/23/21 09/11/23 (3 mL) subcutaneous pen insulin glargine 100 unit/mL (3 6 unit SQ DAILY Diabetes 03/23/21 09/11/23 mL) subcutaneous pen melatonin 5 mg capsule 5 mg PO HS Sleep 03/23/21 09/11/23 prednisone 10 mg tablet 5 mg PO DAILY . 03/23/21 09/11/23 rifaximin 550 mg tablet 550 mg PO BID unk 03/23/21 09/11/23 furosemide 80 mg tablet 80 mg PO BID Fluid 10/12/22 09/11/23 omeprazole 40 mg capsule,delayed 40 mg PO DAILY GERD 10/12/22 09/11/23 release pantoprazole 40 mg tablet,delayed 40 mg PO BID 09/11/23 09/11/23 release Previous Rx's ?Medication ?Instructions ?Recorded atorvastatin 20 mg tablet 20 mg PO HS Cholesterol #30 tabs 10/26/22 albuterol sulfate 90 mcg/actuation 4 inh inhalation Q4H PRN shortness 07/25/23 aerosol inhaler of breath or wheezing #8.5 grams bisoprolol fumarate 10 mg tablet 10 mg PO DAILY #31 tabs 09/18/23 methocarbamol 750 mg tablet 750 mg PO TID 5 days #15 tabs 01/10/24 Allergies Allergy/AdvReac Type Severity Reaction Status Date / Time ceftriaxone Allergy Severe Anaphylaxis Verified 07/08/24 17:00 [facility] Disclaimer: The information contained in this section may have been updated after the patient was seen, as this information can be updated by other users. Medical History Arteriovenous fistula of right upper extremity Diabetes Abnormal result of cardiovascular function study Typical angina Automatic implantable cardioverter-defibrillator in situ Chronic a-fib Surgical History History of cardiac cath Social History Smoking Status: Never smoker second hand exposure: No alcohol intake: never substance use type: other current occupational status: disabled Travel in the last 8 weeks: None household members: spouse housing: house current occupational exposures/hazards: No caffeine: No ROS Obtained: Yes All systems reviewed & no additional complaints except as documented Physical Exam General General appearance: alert, in no apparent distress and obese Head Head exam: atraumatic and normocephalic Eye Eye exam: Present normal appearance, PERRL and EOMI ENT ENT exam: Present normal exam, normal oropharynx, mucous membranes moist and normal external ear exam Neck Neck exam: Present normal inspection, full ROM and trachea midline; Absent tenderness Chest Chest inspection: Present normal inspection and symmetric chest wall rise; Absent tenderness Respiratory Respiratory exam: Present normal lung sounds bilaterally; Absent respiratory distress, wheezes, stridor or accessory muscle use Cardiovascular Cardiovascular exam: Present regular rate and normal rhythm Abdominal Exam Abdominal exam: Present soft; Absent distention, tenderness or guarding Extremities Exam Extremities exam: Present full ROM, tenderness, normal capillary refill, edema and other (Redness, warmth, and swelling to the right upper extremity at the site of the patient's AV fistula. Neurovascularly intact distally.) Back Exam Back exam: Present normal inspection and full ROM; Absent tenderness Neurological Exam Neurological exam: Present alert, oriented X3 and CN II-XII intact; Absent motor sensory deficit Psychiatric Psychiatric exam: Present normal affect and normal mood Skin Skin exam: Present warm and dry Medical Decision Making Medical Records Medical records reviewed: Yes I reviewed the patient's medical records. Screening: Per USPSTF and CDC recommendations, given the prevalence of disease in our region, it is our hospital?s policy to screen for HIV and viral Hepatitis for all patients aged 18 and over and those with ongoing risk factors. Rudy Inquiry Pt receiving controlled substance: No Vital Signs: 07/08/24 16:40 07/08/24 16:48 07/08/24 17:01 Temperature 97.7 F Temperature Source Oral Pulse Rate 66 89 Pulse Rate [Left] 73 Respiratory Rate 16 Blood Pressure 150/93 H 149/96 H Blood Pressure [Right Arm] 150/93 H Blood Pressure Mean 132 116 Blood Pressure Mean [Right Arm] 112 Blood Pressure Source [Right Arm] Automatic Cuff Blood Pressure Position [Right Arm] Sitting 02 Sat by Pulse Oximetry 90 L 95 98 Oxygen Delivery Method Nasal Cannula Room Air Nasal Cannula 07/08/24 18:01 07/08/24 18:30 Temperature Temperature Source Pulse Rate 73 75 Pulse Rate [Left] Respiratory Rate Blood Pressure 154/92 H 158/95 H Blood Pressure [Right Arm] Blood Pressure Mean 112 103 Blood Pressure Mean [Right Arm] Blood Pressure Source [Right Arm] Blood Pressure Position [Right Arm] 02 Sat by Pulse Oximetry 99 98 Oxygen Delivery Method Nasal Cannula Nasal Cannula Lab Data Lab results reviewed: Yes I reviewed the patient's lab results. Lab Results 07/08/24 16:58: HIV 1&2 Antibody Rapid Nonreactive 07/08/24 17:46: WBC 4.5 L, RBC 2.90 L, Hgb 9.2 L, Hct 31.3 L, MCV 107.9 H, MCH 31.7 H, MCHC 29.4 L, RDW 18.4 H, Plt Count 220, MPV 9.2, Neut % (Auto) 81.0 H, Lymph % (Auto) 12.8, [place] % (Auto) 4.6, Eos % (Auto) 1.0, Baso % (Auto) 0.5, Neut # (Auto) 3.6, Lymph # (Auto) 0.6 L, Chester # (Auto) 0.2, Eos # (Auto) 0.1, Baso # (Auto) 0.0, ESR 50 H, PT 10.9, INR 0.97, APTT 25.8, D-Dimer 0.97 H, Sodium 141, Potassium 4.8, Chloride 106, Carbon Dioxide 27, Anion Gap 12.8, BUN 28 H, Creatinine 7.70 H, Estimated Creat Clear 9, Estimated GFR 5 L*, Est GFR ( Amer) 6 L*, Glucose 147 H, Lactate 1.0, Calcium 8.9, Total Bilirubin 1.2, AST 34, ALT 26, Alkaline Phosphatase 181 H, C-Reactive Protein 9.5 H, Total Protein 6.9, Albumin 4.1, Globulin 2.8, Albumin/Globulin Ratio 1.5 07/08/24 17:46 07/08/24 17:46 Orders (Tests/Meds): ED MEDICATIONS Discontinued Medications Generic Name Dose Route Start Last Admin Trade Name Freq PRN Reason Stop Dose Admin Morphine Sulfate 2 mg 07/08/24 17:48 07/08/24 18:02 Morphine 2mg/Ml Syringe IV 07/08/24 17:49 2 mg ONCE ONE Administration Ondansetron HCl 4 mg 07/08/24 17:48 07/08/24 18:02 Ondansetron 4mg/2ml Vial IV 07/08/24 17:49 4 mg ONCE ONE Administration ORDERS Category Date Time Status CRP [C-Reactive Protein] Stat Lab 07/08/24 17:46 Completed Complete Blood Count Auto Diff Stat Lab 07/08/24 17:46 Completed Comprehensive Metabolic Panel Stat Lab 07/08/24 17:46 Completed D-Dimer Stat Lab 07/08/24 17:46 Completed ESR [Erythrocyte Sedimentation Rate] Stat Lab 07/08/24 17:46 Completed HIV (1&2) Antibody Rapid Stat Lab 07/08/24 16:58 Completed Hep C Ab with Reflex to RNA Stat Lab 07/08/24 17:46 Received Lactic Acid Stat Lab 07/08/24 17:46 Completed PT INR [Prothrombin Time INR] Stat Lab 07/08/24 17:46 Completed PTT [Activated Partial Thrombo Time] Stat Lab 07/08/24 17:46 Completed Blood Culture Stat Micro 07/08/24 17:46 Ordered ECG Data Tracing #1: I reviewed this ECG and interpreted as documented below: Normal sinus rhythm with a ventricular rate of 85 bpm. Frequent PACs. Left axis deviation. Interventricular conduction delay. No acute ST changes concerning for ischemia. ECG initial impression date: 07/08/24 ECG initial impression time: 17:04 Medical Decision Narrative: In summary, this patient is a 73-year-old female presenting to the Emergency Department for evaluation of traumatic right upper extremity redness, pain, and swelling. This is the site of her AV fistula for dialysis. Differential diagnoses considered include but are not limited to AV fistula infection, AV fistula stenosis, cellulitis, DVT. Ruling out the most morbid conditions drove assessment. It should be noted patient's history includes end-stage renal disease on dialysis, hypertension, hyperlipidemia, and diabetes which may or may not be at goal therapy. This complicates all aspects of care by increasing patient's risk for morbidity. I reviewed patient's past medical records and noted previous evaluations here for various complaints, CHF exacerbation, and other issues in the past as well as her most recent evaluation by interventional radiology at back in February for fistula revision. On exam, the patient has redness, warmth, and tenderness of her right upper extremity with swelling. She is neurovascularly intact distally. Workup included CBC, CMP, ESR, CRP, blood cultures, D-dimer, coags, EKG. D-dimer elevated at 0.97. Inflammatory markers elevated. No significant leukocytosis. Patient has chronic anemia. She has elevated creatinine consistent with end- stage renal disease but no hyperkalemia or other acute concerns. She had some improvement in her pain with IV morphine and Zofran. Pain did recur requiring second dose. Ultimately given her elevated inflammatory markers with swelling, tenderness, erythema, and warmth of her right upper extremity, I feel she would benefit from transfer to higher level care for evaluation with dedicated imaging of her fistula/evaluation by IR or vascular surgery is appropriate. Given this, I initiated discussions with [facility] where she follows. Dr. Noriega excepted the patient to [facility] for evaluation. EMS transport was arranged, and the patient was transported in stable condition Critical Care Critical Care Time Critical Care Time: No
[2024-07-08 17:01] VITALS: BP 149/96; PULSE 89; O2SAT 98
--- NOTE | 2024-07-08 17:02 | ECG_ITS ---
APPROVED REPORT Exam: Resting ECG HR:85 bpm ECG Measurements Heart Rate 85 AXES FL 229 P 78 QRSd 133 QRS -51 QT 424 T 84 QTc 466 Conclusion SINUS RHYTHM WITH FIRST DEGREE AV BLOCK WITH FREQUENT SUPRAVENTRICULAR PREMATURE COMPLEXES LEFT AXIS DEVIATION [QRS AXIS < -30] INTRAVENTRICULAR CONDUCTION DELAY [130+ ms QRS DURATION] POSSIBLE ANTERIOR MYOCARDIAL INFARCTION , OF INDETERMINATE AGE [30 ms Q WAVE IN V3/V4, OR R < 0.2 mV IN V4] ABNORMAL ECG Electronically signed by : CATE HOLLAND, 07/08/2024 23:38:44
[2024-07-08 18:01] VITALS: BP 154/92; PULSE 73; O2SAT 99
[2024-07-08] MEDS: ONDANSETRON 4MG/2ML VIAL 4 MG IV (18:02)
[2024-07-08] MEDS: MORPHINE 2MG/ML SYRINGE 2 MG IV (18:02)
[2024-07-08 18:03] LABS: Basophils % 0.5 % (0.1-2.0); Eosinophils # 0.1 K/mm3 (0.0-0.4); Hematocrit 31.3 % (37.0-47.0); Hemoglobin 9.2 g/dL (12.2-16.2); Lymphocytes # 0.6 K/mm3 (0.7-4.5); Lymphocytes % 12.8 % (10-50); Mean Corpuscular HGB Conc 29.4 g/dL (31.8-35.4); Mean Corpuscular Hemoglobin 31.7 pg (27.0-31.2); Mean Corpuscular Volume 107.9 fl (81-99); Mean Platelet Volume 9.2 fl (7.4-10.4); Monocytes # 0.2 K/mm3 (0.1-1.0); Monocytes % 4.6 % (1.7-9.3); Neutrophils # 3.6 K/mm3 (1.8-7.8); Platelet Count 220 K/mm3 (142-424); Red Cell Distribution Width 18.4 % (11.5-17.5); White Blood Count 4.5 K/mm3 (4.8-10.8)
[2024-07-08 18:12] LABS: Activated Partial Thrombo Time 25.8 seconds (22.8-30.6); INR 0.97 (0.9-1.1); Prothrombin Time 10.9 seconds (10.1-12.5)
[2024-07-08 18:18] LABS: Albumin Level 4.1 g/dl (3.5-5.0); Chloride 106 mmol/L (98-107); Potassium 4.8 mmoL/L (3.5-5.1); Sodium 141 mmol/L (136-145)
[2024-07-08 18:21] LABS: Alanine Aminotransferase 26 U/L (12-78); Albumin/Globulin Ratio 1.5 (1.1-1.8); Alkaline Phosphatase 181 U/L (38-126); Anion Gap 12.8 mEq/L (5-15); Aspartate Amino Transferase 34 U/L (14-36); Bilirubin,Total 1.2 mg/dl (0.2-1.3); Blood Urea Nitrogen 28 mg/dl (7-17); Calcium 8.9 mg/dl (8.4-10.2); Carbon Dioxide 27 mmol/L (22.0-30.0); Creatinine Clearance Estimated 9 mL/min (50-200); Estimated Glomerular Filt Rate 5 ml/min (>60); GFR (African American) 6 ML/MIN (>60); Globulin 2.8 g/dL (1.3-3.2); Glucose 147 mg/dl (74-100); Total Protein,Serum 6.9 g/dl (6.3-8.2)
[2024-07-08 18:27] LABS: C-Reactive Protein 9.5 mg/L (0-4)
[2024-07-08 18:28] LABS: D-Dimer 0.97 ug/mL (0.0-0.5)
[2024-07-08 18:30] VITALS: BP 158/95; PULSE 75; O2SAT 98
[2024-07-08 19:26] LABS: Erythrocyte Sedimentation Rate 50 mm/hr (0-30)
--- NOTE | 2024-07-08 19:30 | PC.NURSE ---
Patient PIVL unable to flush or draw. Assessed line, appears to be decannulated from vein. Utilized ultrasound x 2 attempts to obtain PIVL access to left forearm 20G. Patient tolerated well. Provider notified.
[2024-07-08 19:31] LABS: HIV (1&2) Antibody Rapid NONREACTIVE (NONREACTIVE)
--- NOTE | 2024-07-08 20:22 | PC.NURSE ---
Nurse to nurse report to Gosia LUCIO charge auditor.
[2024-07-08] MEDS: MORPHINE 4MG/ML SYRINGE 4 MG IV (20:25)
[2024-07-08 22:13] VITALS: BP 156/90; PULSE 73; RESP 21; TEMP 36.5; O2SAT 98
[2024-07-10 08:35] LABS: HCV Ab Non Reactive (Non Reactive)
== END 2024-07-08 22:15 | disposition short-term general hospital (02) ==
PROVIDERS: Emergency Provider Emergency Medicine; PCP Family Medicine
DX: T82.511A Breakdown (mechanical) of surgically created arteriovenous shunt, initial encounter (principal); M79.621 Pain in right upper arm; N18.6 End stage renal disease; Z99.2 Dependence on renal dialysis; I49.1 Atrial premature depolarization
CPT/HCPCS: 80053; 83605; 85025; 85378; 85610; 85651; 85730; 86140; 86803; 87040; 87389; 93005; 96374; 96375; 96376; 99284; J2270; J2405

== ENCOUNTER 2024-07-27 19:51 | Emergency (ER) | payer MEDICARE, SELFPAY ==
[2024-07-27 19:52] VITALS: BP 129/70; PULSE 73; RESP 20; TEMP 36.8; O2SAT 97; BMI 29.0
--- NOTE | 2024-07-27 20:00 | ECG_ITS ---
APPROVED REPORT Exam: Resting ECG HR:69 bpm ECG Measurements Heart Rate 69 AXES WA 250 P -20 QRSd 134 QRS -60 QT 445 T 52 QTc 465 Conclusion A paced rhythm Left axis deviation Left bundle branch block morphology Sgarbossa negative Electronically signed by : MARVEL HAYNES, 07/27/2024 22:51:00
--- NOTE | 2024-07-27 20:04 | XR_ITS ---
PROCEDURE INFORMATION: Exam: XR Chest Exam date and time: 07/27/2024 8:11 PM Age: 73 years old Clinical indication: Shortness of breath; Additional info: SOA, missed dialysis TECHNIQUE: Imaging protocol: Radiologic exam of the chest. Views: 1 view. COMPARISON: CR XR CHEST 2V 06/24/2024 7:05 AM FINDINGS: Tubes, catheters and devices: A pacing/defibrillating device enters from the left. Lungs: There is mild interstitial edema. There is prominence of the central pulmonary vasculature. Pleural spaces: There are small bilateral pleural effusions. Heart/Mediastinum: The cardiac silhouette is enlarged. Vasculature: Unremarkable. Bones/joints: Unremarkable. IMPRESSION: Findings consistent with congestive failure/fluid overload.
[2024-07-27] MEDS: MAGNESIUM SULFATE IN WATER 2 GM/50 ML PIGGYBACK IV (20:16)
[2024-07-27 20:38] VITALS: BP 159/108; PULSE 72; RESP 26; O2SAT 96
--- NOTE | 2024-07-27 20:48 | [facility].EDCP ---
Discharge Plan Disposition Patient Disposition: Xfer Short-Term Hosp Chief Complaint: Chest Pain Prescriptions Prescriptions: No Action atorvastatin 20 mg tablet 20 mg PO HS Qty: 30 5RF prednisone 10 mg tablet 5 mg PO DAILY acetaminophen [Tylenol] 325 mg capsule 325 mg PO QID PRN (Reason: Mild Pain) insulin aspart U-100 100 unit/mL (3 mL) insulin pen 4 unit SQ ACHS insulin glargine 100 unit/mL (3 mL) insulin pen 6 unit SQ DAILY melatonin 5 mg capsule 5 mg PO HS omeprazole 40 mg capsule,delayed release(DR/EC) 40 mg PO DAILY Patient Comments: TAKE 1 CAPSULE BY MOUTH ONCE DAILY. DO NOT CRUSH OR CHEW furosemide 80 mg tablet 80 mg PO BID Patient Comments: TAKE 1 TABLET BY MOUTH TWICE DAILY bisoprolol fumarate 10 mg tablet 10 mg PO DAILY Qty: 31 11RF folic acid 1 MG tablet 1 mg PO DAILY lactulose 10 GM/15 ML solution 20 g PO TID sevelamer carbonate 800 MG tablet 1,600 mg PO TID rifaximin 550 mg tablet 550 mg PO BID albuterol sulfate 90 mcg/actuation HFA aerosol inhaler 4 inh inhalation Q4H PRN (Reason: shortness of breath or wheezing) Qty: 8.5 0RF Rx Instructions: 4 puffs every 4 hours for 48 hours then as needed for shortness of breath or wheezing following pantoprazole 40 mg tablet,delayed release (DR/EC) 40 mg PO BID Patient Comments: TAKE 1 TABLET BY MOUTH TWICE DAILY 30 MINUTES BEFORE BREAKFAST AND DINNER methocarbamol 750 mg tablet 750 mg PO TID 5 Days Qty: 15 0RF Referrals Follow up/Referrals: Aldo Juarez MD [Primary Care Provider] - See instructions Clinical Impressions Clinical Impression: Acute hypercapnic respiratory failure, Volume overload, Acute hypoxemic respiratory failure Stand Alone Forms Stand Alone Forms: Transfer Record - ED Print Language Print Language: Malian Discharge ED Provider: Surya Rosario HPI General Chief Complaint: Chest Pain Stated Complaint: CP Time Seen by Provider: 07/27/24 19:54 Mode of Arrival: Wheelchair Source of Information: Patient Limitations: No Limitations Description of Symptoms (Recalled from ER Triage Doc. by RN): pt to ed with c/o cp and soa since yesterday. pt reports she is a dialysis pt, and missed today. Pt reports she has had diarrhea all daY as well. History of Present Illness HPI narrative: Please note that above description of symptoms, in this electronic medical record under categorization of recalled from ER triage doctor by RN are reflective of an initial nursing assessment, however, is not reflective of my full history and physical exam that was personally taken and clarified. Consequentially, this preceding description of symptoms, which may include the patient's categorized chief complaint in the EMR, do not reflect my personal clinical impression, and the ultimate description of history of present illness and patient stated complaints should be deferred to this section of the note. Unless stated otherwise or congruent with this section of the note, additional signs, symptoms, or incongruence should be interpreted as inaccurate with my clinical impression. Related Data Home Medications ?Medication ?Instructions ?Recorded ?Confirmed folic acid 1 mg tablet 1 mg PO DAILY Supplement 11/29/20 09/11/23 lactulose 10 gram/15 mL oral 20 g PO TID liver 11/29/20 09/11/23 solution sevelamer carbonate 800 mg tablet 1,600 mg PO TID Kidney failure 11/29/20 09/11/23 acetaminophen 325 mg capsule 325 mg PO QID PRN Mild Pain 03/23/21 09/11/23 (Tylenol) insulin aspart U-100 100 unit/mL 4 unit SQ ACHS Diabetes 03/23/21 09/11/23 (3 mL) subcutaneous pen insulin glargine 100 unit/mL (3 6 unit SQ DAILY Diabetes 03/23/21 09/11/23 mL) subcutaneous pen melatonin 5 mg capsule 5 mg PO HS Sleep 03/23/21 09/11/23 prednisone 10 mg tablet 5 mg PO DAILY . 03/23/21 09/11/23 rifaximin 550 mg tablet 550 mg PO BID unk 03/23/21 09/11/23 furosemide 80 mg tablet 80 mg PO BID Fluid 10/12/22 09/11/23 omeprazole 40 mg capsule,delayed 40 mg PO DAILY GERD 10/12/22 09/11/23 release pantoprazole 40 mg tablet,delayed 40 mg PO BID 09/11/23 09/11/23 release Previous Rx's ?Medication ?Instructions ?Recorded atorvastatin 20 mg tablet 20 mg PO HS Cholesterol #30 tabs 10/26/22 albuterol sulfate 90 mcg/actuation 4 inh inhalation Q4H PRN shortness 07/25/23 aerosol inhaler of breath or wheezing #8.5 grams bisoprolol fumarate 10 mg tablet 10 mg PO DAILY #31 tabs 09/18/23 methocarbamol 750 mg tablet 750 mg PO TID 5 days #15 tabs 01/10/24 Allergies Allergy/AdvReac Type Severity Reaction Status Date / Time ceftriaxone Allergy Severe Anaphylaxis Verified 07/08/24 17:00 [facility] Disclaimer: The information contained in this section may have been updated after the patient was seen, as this information can be updated by other users. Medical History Arteriovenous fistula of right upper extremity Diabetes Abnormal result of cardiovascular function study Typical angina Automatic implantable cardioverter-defibrillator in situ Chronic a-fib Surgical History History of cardiac cath Social History Smoking Status: Unknown if ever smoked second hand exposure: No alcohol intake: never substance use type: other current occupational status: disabled Travel in the last 8 weeks: None household members: spouse housing: house current occupational exposures/hazards: No caffeine: No Other Medical History Have you received the Flu Vaccine for this season: No Have you received the Pneumonia Vaccine: No ROS Obtained: Yes All systems reviewed & no additional complaints except as documented Physical Exam General General appearance: alert Neck Neck exam: Present trachea midline Chest Chest inspection: Present normal inspection and symmetric chest wall rise Respiratory Respiratory exam: Present wheezes (Inferiorly requiring 2 L nasal cannula); Absent respiratory distress, stridor, accessory muscle use or prolonged expiratory phase Cardiovascular Cardiovascular exam: Present regular rate, normal rhythm and other (Pulses equal and symmetric in upper and lower extremities) Extremities Exam Extremities exam: Absent edema Neurological Exam Neurological exam: Present alert, oriented X3, CN II-XII intact and normal gait; Absent motor sensory deficit Skin Skin exam: Present warm and dry; Absent cyanosis, diaphoresis or pallor HEART Score HEART Score HEART Score assessment performed?: Yes History (anamnesis): Slightly suspicious ECG: Non-specific disturbance Age: >65 years Risk factors: 3 or more risk factors Troponin: </= normal limit HEART Score: 5 Critical Care Critical Care Time Critical Care Time: Yes (renal, CP) Attestation: On 07/27/24, the high probability of a clinically significant, sudden or life threatening deterioration of the following system(s) required my full and direct attention, intervention and personal management. The time I documented below is in addition to time spent performing reported procedures but includes the following listed in this critical care notation. Total Time Total Critical Care Time: 45 Medical Decision Making Medical Records Medical records reviewed: Yes I reviewed the patient's medical records. Rudy Inquiry Pt receiving controlled substance: No Rudy was queried for this patient: No Vital Signs Vital Signs: 07/27/24 19:52 07/27/24 20:38 Temperature 98.2 F Temperature Source Oral Pulse Rate 72 Pulse Rate [Apical] 73 Respiratory Rate 20 26 H Blood Pressure 159/108 H Blood Pressure [Left Arm] 129/70 Blood Pressure Mean [Left Arm] 89 Blood Pressure Source [Left Arm] Automatic Cuff Blood Pressure Position [Left Arm] Sitting 02 Sat by Pulse Oximetry 97 96 Oxygen Delivery Method Nasal Cannula Oxygen Flow Rate (LPM) 2 Lab Data Labs: Lab Results 07/27/24 20:05: VBG pH 7.24 L, VBG pCO2 57.9 H, VBG pO2 41.8 H, VBG HCO3 24.3, VBG Total CO2 26.1, VBG O2 Saturation 68.0, VBG Base Excess -3.1 L, VBG Lactic Acid 1.7 07/27/24 20:41: WBC 4.8, RBC 3.03 L, Hgb 9.6 L, Hct 31.3 L, MCV 103.5 H, MCH 31.7 H, MCHC 30.6 L, RDW 16.9, Plt Count 163, MPV 8.6, Neut % (Auto) 77.2, Lymph % (Auto) 16.3, Divide % (Auto) 5.4, Eos % (Auto) 0.7, Baso % (Auto) 0.4, Neut # (Auto) 3.7, Lymph # (Auto) 0.8, Divide # (Auto) 0.3, Eos # (Auto) 0.0, Baso # (Auto) 0.0, APTT 26.6, Sodium 141, Potassium 5.9 H, Chloride 104, Carbon Dioxide 29, Anion Gap 13.9, BUN 23 H, Creatinine 7.70 H, Estimated Creat Clear 9, Estimated GFR 5 L*, Est GFR ( Amer) 6 L*, Glucose 117 H, Hemoglobin A1c 4.8, Lactate 1.3, Calcium 8.7, Total Bilirubin 0.9, AST 29, ALT 21, Alkaline Phosphatase 141 H, Troponin I < 0.01, Total Protein 7.0, Albumin 4.3, Globulin 2.7, Albumin/Globulin Ratio 1.6 07/27/24 20:41 07/27/24 20:41 Response Orders (Tests/Meds): ED MEDICATIONS Generic Name Dose Route Start Last Admin Trade Name Freq PRN Reason Stop Dose Admin Sodium Chloride 10 ml 07/27/24 21:37 Sodium Chloride 0.9% 10ml Vial IV 08/26/24 21:36 NEEDED PRN to Dilute Lorazepam inj Discontinued Medications Generic Name Dose Route Start Last Admin Trade Name Freq PRN Reason Stop Dose Admin Furosemide 40 mg 07/27/24 21:35 07/27/24 21:44 Furosemide 40mg/4ml Vial IV 07/27/24 21:36 40 mg ONCE ONE Administration Magnesium Sulfate 2 gm in 50 mls @ 50 mls/hr 07/27/24 20:05 07/27/24 20:16 Magnesium Sulfate 2gm/50ml Premix IV 07/27/24 21:04 50 mls/hr ONCE ONE Administration Lorazepam 0.5 mg 07/27/24 21:37 07/27/24 21:44 Lorazepam 2mg/Ml Vial IV 07/27/24 21:38 0.5 mg ONCE ONE Administration Sodium Zirconium Cyclosilicate 10 gm 07/27/24 21:35 07/27/24 21:44 Lokelma 5gm Packet PO 07/27/24 21:36 10 gm ONCE ONE Administration ORDERS Category Date Time Status XR chest portable Stat Exams 07/27/24 20:04 Taken Complete Blood Count Auto Diff Stat Lab 07/27/24 20:41 Completed Comprehensive Metabolic Panel Stat Lab 07/27/24 20:41 Results HIV (1&2) Antibody Rapid Stat Lab 07/27/24 20:41 Received Hemoglobin A1C Stat Lab 07/27/24 20:41 Completed Hep C Ab with Reflex to RNA Stat Lab 07/27/24 20:41 Received Lactic Acid Stat Lab 07/27/24 20:41 Completed NT Pro Brain Natriuretic Pep. Stat Lab 07/27/24 20:41 Results PTT [Activated Partial Thrombo Time] Stat Lab 07/27/24 20:41 Completed Troponin I Q3H Lab 07/27/24 23:15 Ordered Troponin I Q3H Lab 07/28/24 02:15 Ordered Troponin I Stat Lab 07/27/24 20:41 Results Urinalysis and Microscopic Stat Lab 07/27/24 20:05 Ordered Venous Blood Gas Stat RT 07/27/24 20:05 Completed MDM Narrative Medical Decision Narrative: 73-year-old female history of hypertension, hyperlipidemia, diabetes, ESRD on dialysis (still produces urine multiple times per day) CHF, chronic respiratory failure on 2 L nasal cannula oxygen at home as needed, atrial fibrillation on Coumadin reporting with shortness of breath. Patient states she has had diarrhea the last 24 hours or so. Missed her dialysis today, 07/27. Last time she received it was 2 days ago on 07/25. Received the full dialysis session at that time. No fevers or chills, nausea or vomiting, abdominal pain, but states that she is coming in today because she is feeling short of breath having missed her dialysis. Denies chest pain, cough, or any other respiratory or cardiac symptoms. History was obtained via conversation with patient and family. On arrival, patient hemodynamically stable, alert, oriented x4, appropriate, GCS 15, moving all extremities spontaneously, pupils equal and reactive to light. Full physical exam performed and significant for chronically ill-appearing female in no acute distress. She has inspiratory wheezes in inferior lung fournier. No increased work of breathing. Abdomen soft, nontender, nondistended. No lower extremity edema. Cardiac exam with muffled heart sounds, but no appreciable murmurs. Differential includes volume overload, ACS, [place], CHF, pneumonia, pleural effusions, among others. Patient was given supplemental oxygen initially for symptomatic management and correction of underlying abnormalities. Patient placed on continuous cardiac monitoring and continuous pulse ox with initial blood pressure 129/70, heart rate 73, saturation 97% on 2 L nasal cannula. Atrial paced rhythm left bundle branch block morphology with wide QRS 134 ms. NM 250, QTc 465. No obvious, acute ischemic change. Sgarbossa negative on independent interpretation of EKG. Workup independently interpreted and significant for stable anemia with hemoglobin 9.6. Patient's white blood cell count normal. VBG with respiratory acidosis pH 7.24, CO2 58 with normal bicarb at 24.3. Lactate negative. Patient's potassium mildly elevated at 5.9, she was given Lokelma and Lasix for this given no EKG changes. Creatinine 7.7, BUN 23. Patient's troponin negative and undetectable. On independent interpretation of imaging, pulmonary edema, bilateral pleural effusions, cardiomegaly worse than patient's previous x-rays. Appears to be acute on chronic. See radiology read for full review of final results. Heart score 5. On reevaluation, patient still resting comfortably. Given patient's respiratory acidosis, fluid overload, BiPAP was initiated /8 with 30% FiO2. Patient having anxiety with this, 0.5 mg IV Ativan was ordered. Multiple hospitals were contacted for transfer for dialysis, ultimately, patient graciously accepted for transfer at [facility] under Dr. Burgos. Smoking Pipe Mounter disclaimer Much of this encounter note is an electronic sales planning manager spoken language to printed text. Electronic sales planning manager of the spoken language may permit errors. Although I have reviewed the note, some errors may still exist.
[2024-07-27 20:51] LABS: Basophils % 0.4 % (0.1-2.0); Eosinophils % 0.7 % (0.1-12.0); Hematocrit 31.3 % (37.0-47.0); Hemoglobin 9.6 g/dL (12.2-16.2); Lymphocytes # 0.8 K/mm3 (0.7-4.5); Lymphocytes % 16.3 % (10-50); Mean Corpuscular HGB Conc 30.6 g/dL (31.8-35.4); Mean Corpuscular Hemoglobin 31.7 pg (27.0-31.2); Mean Corpuscular Volume 103.5 fl (81-99); Mean Platelet Volume 8.6 fl (7.4-10.4); Monocytes # 0.3 K/mm3 (0.1-1.0); Monocytes % 5.4 % (1.7-9.3); Neutrophils # 3.7 K/mm3 (1.8-7.8); Neutrophils % 77.2 % (37.0-80.0); Platelet Count 163 K/mm3 (142-424); Red Blood Count 3.03 M/mm3 (4.20-5.40); Red Cell Distribution Width 16.9 % (11.5-17.5); White Blood Count 4.8 K/mm3 (4.8-10.8)
[2024-07-27 20:55] LABS: Albumin Level 4.3 g/dl (3.5-5.0); Chloride 104 mmol/L (98-107); Potassium 5.9 mmoL/L (3.5-5.1); Sodium 141 mmol/L (136-145)
[2024-07-27 20:58] LABS: Alanine Aminotransferase 21 U/L (12-78); Albumin/Globulin Ratio 1.6 (1.1-1.8); Alkaline Phosphatase 141 U/L (38-126); Anion Gap 13.9 mEq/L (5-15); Aspartate Amino Transferase 29 U/L (14-36); Bilirubin,Total 0.9 mg/dl (0.2-1.3); Blood Urea Nitrogen 23 mg/dl (7-17); Calcium 8.7 mg/dl (8.4-10.2); Carbon Dioxide 29 mmol/L (22.0-30.0); Creatinine Clearance Estimated 9 mL/min (50-200); Estimated Glomerular Filt Rate 5 ml/min (>60); GFR (African American) 6 ML/MIN (>60); Globulin 2.7 g/dL (1.3-3.2); Glucose 117 mg/dl (74-100)
[2024-07-27 20:59] VITALS: BP 113/79; PULSE 70; RESP 21; O2SAT 95
[2024-07-27 20:59] LABS: Lactic Acid 1.3 mmol/L (0.7-2.1)
[2024-07-27 21:00] LABS: Lactate Venous 1.7 mmol/L (0.4-2.0); VBG Base Excess -3.1 mmol/L (-2.4-2.3); VBG HCO3 24.3 mmol/L (23-30); VBG PH 7.24 mmol/L (7.31-7.41); VBG PO2 41.8 mmol/L (28-40); VBG Total CO2 26.1 mmol/L (23-27)
[2024-07-27 21:02] LABS: Activated Partial Thrombo Time 26.6 seconds (22.8-30.6)
[2024-07-27 21:03] LABS: Hemoglobin A1C 4.8 % (4.0-6.0)
--- NOTE | 2024-07-27 21:06 | PC.NURSE ---
MD Rosario notified of creat 7.70
[2024-07-27 21:12] LABS: Troponin I < 0.01 ng/ml (0.00-0.034)
--- NOTE | 2024-07-27 21:20 | PC.NURSE ---
called [facility] at this time.
[2024-07-27 21:26] VITALS: BP 157/103; PULSE 70; RESP 29; O2SAT 99
[2024-07-27 21:28] LABS: VBG PCO2 57.9 mmol/L (35-51)
--- NOTE | 2024-07-27 21:36 | PC.NURSE ---
Pt placed on BIPAP by Kobi Dooley RT . Settings 30/03, R20, FIO@ 28%
[2024-07-27] MEDS: LOKELMA 5GM PACKET 10 GM PO (21:44)
[2024-07-27] MEDS: FUROSEMIDE 40MG/4ML VIAL 40 MG IV (21:44)
[2024-07-27] MEDS: LORazepam 2MG/ML VIAL 0.5 MG IV (21:44)
[2024-07-27 21:50] LABS: NT Pro Brain Natriuretic Pep. 44200 pg/mL (0-125)
[2024-07-27 22:00] VITALS: BP 130/93; PULSE 75; RESP 22; O2SAT 96
--- NOTE | 2024-07-27 22:05 | PC.NURSE ---
report called to charge nurse at [facility] ED at this time
[2024-07-27 22:30] VITALS: BP 130/93; PULSE 75; RESP 22; TEMP 36.8; O2SAT 96
[2024-07-28 03:59] LABS: HIV (1&2) Antibody Rapid NONREACTIVE (NONREACTIVE)
[2024-07-30 05:09] LABS: HCV Ab Non Reactive (Non Reactive)
== END 2024-07-27 22:32 | disposition short-term general hospital (02) ==
PROVIDERS: Emergency Provider Emergency Medicine; PCP Family Medicine
DX: E87.70 Fluid overload, unspecified (principal); E87.5 Hyperkalemia; I50.9 Heart failure, unspecified; J96.02 Acute respiratory failure with hypercapnia; J96.01 Acute respiratory failure with hypoxia; R07.9 Chest pain, unspecified; R19.7 Diarrhea, unspecified; Z99.2 Dependence on renal dialysis
CPT/HCPCS: 71045; 80053; 82803; 83036; 83605; 83880; 84484; 85025; 85730; 86803; 87389; 93005; 96365; 96375; 99291; J1940; J2060; J3475

== ENCOUNTER 2024-09-20 09:17 | Outpatient (CLI) | payer MEDICARE, SELFPAY ==
[2024-09-20 10:32] LABS: Basophils % 0.5 % (0.1-2.0); Eosinophils % 0.4 % (0.1-12.0); Hematocrit 35.5 % (37.0-47.0); Hemoglobin 10.7 g/dL (12.2-16.2); Lymphocytes # 0.7 K/mm3 (0.7-4.5); Lymphocytes % 17.9 % (10-50); Mean Corpuscular HGB Conc 30.2 g/dL (31.8-35.4); Mean Corpuscular Hemoglobin 30.6 pg (27.0-31.2); Mean Corpuscular Volume 101.4 fl (81-99); Mean Platelet Volume 8.9 fl (7.4-10.4); Monocytes # 0.3 K/mm3 (0.1-1.0); Neutrophils # 3.1 K/mm3 (1.8-7.8); Neutrophils % 74.2 % (37.0-80.0); Platelet Count 131 K/mm3 (142-424); Red Cell Distribution Width 17.7 % (11.5-17.5); White Blood Count 4.1 K/mm3 (4.8-10.8)
[2024-09-20 10:42] LABS: INR 1.01 (0.9-1.1); Prothrombin Time 11.3 seconds (10.1-12.5)
[2024-09-20 10:53] LABS: Albumin Level 4.2 g/dl (3.5-5.0); Chloride 102 mmol/L (98-107); Potassium 4.3 mmoL/L (3.5-5.1); Sodium 138 mmol/L (136-145)
[2024-09-20 10:55] LABS: Alanine Aminotransferase 23 U/L (12-78); Aspartate Amino Transferase 21 U/L (14-36); Blood Urea Nitrogen 20 mg/dl (7-17); Estimated Glomerular Filt Rate 9 ml/min (>60); GFR (African American) 10 ML/MIN (>60)
[2024-09-20 10:56] LABS: Albumin/Globulin Ratio 1.8 (1.1-1.8); Alkaline Phosphatase 128 U/L (38-126); Anion Gap 11.3 mEq/L (5-15); Bilirubin,Total 0.9 mg/dl (0.2-1.3); Calcium 8.7 mg/dl (8.4-10.2); Carbon Dioxide 29 mmol/L (22.0-30.0); Globulin 2.3 g/dL (1.3-3.2); Glucose 171 mg/dl (74-100); Iron 95 ug/dL (37-170); Total Protein,Serum 6.5 g/dl (6.3-8.2)
[2024-09-20 11:05] LABS: NT Pro Brain Natriuretic Pep. > 30000 pg/mL (0-125)
[2024-09-20 11:06] LABS: Total Iron Binding Capacity 261 ug/dL (265-497)
[2024-09-20 11:20] LABS: 25-OH Vitamin D, Total 16.1 ng/mL (30-100)
[2024-09-20 11:30] LABS: Ferritin 458 ng/ml (11.1-264)
[2024-09-21 09:20] LABS: AFP, Tumor Marker 2.3 ng/mL (0.0-9.2)
[2024-09-23 18:06] LABS: Calcium, Ionized 4.5 mg/dL (4.5-5.6)
[2024-09-25 09:21] LABS: Miscellaneous Test SCANNED IMAGE
[2024-09-29 20:25] LABS: 1,25 Dihydroxy Vitamin D 52 pg/mL (.); 1,25-Dihydroxy, Vitamin D-2 <10 pg/mL (.); 1,25-Dihydroxy, Vitamin D-3 52 pg/mL (.)
== END 2024-09-20 23:59 | disposition home or self-care (01) ==
LOC: LAB 09:18
PROVIDERS: PCP Family Medicine; Visit Provider Internal Medicine Critical Care Medicine
DX: I50.20 Unspecified systolic (congestive) heart failure (principal); K74.60 Unspecified cirrhosis of liver; I27.20 Pulmonary hypertension, unspecified; D86.9 Sarcoidosis, unspecified
CPT/HCPCS: 36415; 80053; 82105; 82306; 82330; 82652; 82728; 83540; 83550; 83880; 85025; 85610

== ENCOUNTER 2024-11-01 14:41 | Emergency (ER) | payer MEDICARE, SELFPAY ==
[2024-11-01] VITALS (13 sets, daily range): BP systolic 102–161; BP diastolic 78–114; PULSE 70–138; RESP 14–29; TEMP 36.6–36.8; O2SAT 97–100; BMI 30.6
--- NOTE | 2024-11-01 14:36 | ECG_ITS ---
APPROVED REPORT Exam: Resting ECG HR:139 bpm ECG Measurements Heart Rate 139 AXES AZ 178 P -76 QRSd 124 QRS -77 QT 317 T 105 QTc 398 Conclusion Sinus tachycardia LEFT AXIS DEVIATION [QRS AXIS < -30] Poor R wave progression POSSIBLE ANTERIOR MYOCARDIAL INFARCTION , OF INDETERMINATE AGE [30 ms Q WAVE IN V3/V4, OR R < 0.2 mV IN V4] MODERATE T-WAVE ABNORMALITY, CONSIDER LATERAL ISCHEMIA [-0.1+ mV T-WAVE IN I/aVL/V5/V6] Electronically signed by : FRANK BROCK, 11/10/2024 06:52:06
--- NOTE | 2024-11-01 14:48 | ED_ITS ---
<Statement entered by Bozena Ogden MD - 11/01/24 23:25> I was consulted by the PORTIA, and we discussed the complexity of the problems being addressed. I approved the treatment and management plan for this patient's care in the emergency department, thus performing a substantive portion of the medical decision making. Bozena Ogden MD, ADAMARIS, FACEP Discharge Plan Disposition Patient Disposition: Xfer Short-Term Hosp Condition: Critical Prescriptions Prescriptions: No Action atorvastatin 20 mg tablet 20 mg PO HS Qty: 30 5RF prednisone 10 mg tablet 5 mg PO DAILY acetaminophen [Tylenol] 325 mg capsule 325 mg PO QID PRN (Reason: Mild Pain) insulin aspart U-100 100 unit/mL (3 mL) insulin pen 4 unit SQ ACHS insulin glargine 100 unit/mL (3 mL) insulin pen 6 unit SQ DAILY melatonin 5 mg capsule 5 mg PO HS omeprazole 40 mg capsule,delayed release(DR/EC) 40 mg PO DAILY Patient Comments: TAKE 1 CAPSULE BY MOUTH ONCE DAILY. DO NOT CRUSH OR CHEW furosemide 80 mg tablet 80 mg PO BID Patient Comments: TAKE 1 TABLET BY MOUTH TWICE DAILY bisoprolol fumarate 10 mg tablet 10 mg PO DAILY Qty: 31 11RF folic acid 1 MG tablet 1 mg PO DAILY lactulose 10 GM/15 ML solution 20 g PO TID sevelamer carbonate 800 MG tablet 1,600 mg PO TID rifaximin 550 mg tablet 550 mg PO BID albuterol sulfate 90 mcg/actuation HFA aerosol inhaler 4 inh inhalation Q4H PRN (Reason: shortness of breath or wheezing) Qty: 8.5 0RF Rx Instructions: 4 puffs every 4 hours for 48 hours then as needed for shortness of breath or wheezing following pantoprazole 40 mg tablet,delayed release (DR/EC) 40 mg PO BID Patient Comments: TAKE 1 TABLET BY MOUTH TWICE DAILY 30 MINUTES BEFORE BREAKFAST AND DINNER methocarbamol 750 mg tablet 750 mg PO TID 5 Days Qty: 15 0RF Referrals Follow up/Referrals: Aldo Juarez MD [Primary Care Provider] - See instructions Activity Restrictions/Add. Instructions Additional Instructions/Restrictions: To [facility] care of Dr. Steel Print Language Print Language: Latvian Discharge ED Provider: Lg Russell General Adult HPI General Chief complaint: Chest Pain Stated complaint: cp Time Seen by Provider: 11/01/24 14:48 History of Present Illness HPI narrative: Patient presents for evaluation chest pain. Patient reports that she began having chest pain 2 hours prior to arrival. She states her heart rate is fast and she is having difficulty breathing. Patient has significant past medical history for end-stage renal disease on Monday hemodialysis, CHF, chronic respiratory failure O2 dependent, chronic atrial fibrillation history of cardiac arrest, history of insulin-dependent type 2 diabetes mellitus,. She did dialyze yesterday. She denies any fever chills hemoptysis hematochezia melena nausea vomit diarrhea. Related Data Home Medications ?Medication ?Instructions ?Recorded ?Confirmed folic acid 1 mg tablet 1 mg PO DAILY Supplement 11/29/20 09/11/23 lactulose 10 gram/15 mL oral 20 g PO TID liver 11/29/20 09/11/23 solution sevelamer carbonate 800 mg tablet 1,600 mg PO TID Kidney failure 11/29/20 09/11/23 acetaminophen 325 mg capsule 325 mg PO QID PRN Mild Pain 03/23/21 09/11/23 (Tylenol) insulin aspart U-100 100 unit/mL 4 unit SQ ACHS Diabetes 03/23/21 09/11/23 (3 mL) subcutaneous pen insulin glargine 100 unit/mL (3 6 unit SQ DAILY Diabetes 03/23/21 09/11/23 mL) subcutaneous pen melatonin 5 mg capsule 5 mg PO HS Sleep 03/23/21 09/11/23 prednisone 10 mg tablet 5 mg PO DAILY . 03/23/21 09/11/23 rifaximin 550 mg tablet 550 mg PO BID unk 03/23/21 09/11/23 furosemide 80 mg tablet 80 mg PO BID Fluid 10/12/22 09/11/23 omeprazole 40 mg capsule,delayed 40 mg PO DAILY GERD 10/12/22 09/11/23 release pantoprazole 40 mg tablet,delayed 40 mg PO BID 09/11/23 09/11/23 release Previous Rx's ?Medication ?Instructions ?Recorded atorvastatin 20 mg tablet 20 mg PO HS Cholesterol #30 tabs 10/26/22 albuterol sulfate 90 mcg/actuation 4 inh inhalation Q4H PRN shortness 07/25/23 aerosol inhaler of breath or wheezing #8.5 grams bisoprolol fumarate 10 mg tablet 10 mg PO DAILY #31 tabs 09/18/23 methocarbamol 750 mg tablet 750 mg PO TID 5 days #15 tabs 01/10/24 Allergies Allergy/AdvReac Type Severity Reaction Status Date / Time ceftriaxone Allergy Severe Anaphylaxis Verified 07/08/24 17:00 [facility] Disclaimer: The information contained in this section may have been updated after the patient was seen, as this information can be updated by other users. Medical History Arteriovenous fistula of right upper extremity Diabetes Abnormal result of cardiovascular function study Typical angina Automatic implantable cardioverter-defibrillator in situ Chronic a-fib Surgical History History of cardiac cath Social History Smoking Status: Never smoker second hand exposure: No alcohol intake: never substance use type: other current occupational status: disabled Travel in the last 8 weeks: None household members: spouse housing: house current occupational exposures/hazards: No caffeine: No Have you lived/traveled outside [place] in past 30 days?: No Contact w/someone who lives/traveled outside US past 30 days?: No Exposure to someone with infectious disease in past 14 days?: No Do you have a fever (greater than 100.4 F or 38 C)?: No Have you tested positive for COVID-19: No Exposed to someone with COVID-19 in past 14 days?: No Do you have a sore throat?: No Do you have a cough?: No Do you have any weakness?: No Do you have any diarrhea?: No Are you experiencing any unusual bleeding?: No Do you have any muscle aches/pain?: Yes Do you have any abdominal pain?: No Are you experiencing loss of taste or smell?: No Other Medical History Have you received the Flu Vaccine for this season: No Have you received the Pneumonia Vaccine: No ROS Obtained: Yes Systems reviewed as appropriate & no additional complaints except as documented Physical Exam General General appearance: alert Respiratory Respiratory exam: Present normal lung sounds bilaterally Cardiovascular Cardiovascular exam: Present regular rate Neurological Exam Neurological exam: Present alert and oriented X3 Medical Decision Making Medical Records Medical records reviewed: Yes I reviewed the patient's medical records. Screening: Per USPSTF and CDC recommendations, given the prevalence of disease in our region, it is our hospital?s policy to screen for HIV and viral Hepatitis for all patients aged 18 and over and those with ongoing risk factors. Rudy Inquiry Pt receiving controlled substance: No Vital Signs: 11/01/24 14:43 11/01/24 14:54 11/01/24 15:00 Temperature 97.8 F Temperature Source Oral Pulse Rate 136 H 138 H Pulse Rate [Left Radial] 137 H Respiratory Rate 20 14 24 Blood Pressure 132/86 125/92 H Blood Pressure [Right Arm] 132/86 Blood Pressure Mean [Right Arm] 101 02 Sat by Pulse Oximetry 97 98 97 Oxygen Delivery Method Room Air Nasal Cannula Nasal Cannula 11/01/24 15:02 Temperature Temperature Source Pulse Rate 137 H Pulse Rate [Left Radial] Respiratory Rate Blood Pressure Blood Pressure [Right Arm] Blood Pressure Mean [Right Arm] 02 Sat by Pulse Oximetry Oxygen Delivery Method Lab Data Lab results reviewed: Yes I reviewed the patient's lab results. Lab Results 11/01/24 14:55: WBC 5.9, RBC 3.57 L, Hgb 10.8 L, Hct 36.3 L, MCV 101.7 H, MCH 30.3, MCHC 29.8 L, RDW 20.1 H, Plt Count 216, MPV 10.5 H, Neut % (Auto) 82.2 H, Lymph % (Auto) 9.6 L, [place] % (Auto) 7.3, Eos % (Auto) 0.3, Baso % (Auto) 0.3, Neut # (Auto) 4.9, Lymph # (Auto) 0.6 L, [place] # (Auto) 0.4, Eos # (Auto) 0.0, Baso # (Auto) 0.0, Sodium 140, Potassium 5.2 H, Chloride 98, Carbon Dioxide 31 H , Anion Gap 16.2 H, BUN 27 H, Creatinine 5.50 H, Estimated Creat Clear 12, E stimated GFR 8 L*, Est GFR ( Amer) 9 L*, Glucose 129 H, Calcium 9.1, Phosphorus 4.5, Magnesium 2.2, Total Bilirubin 1.7 H, AST 38 H, ALT 32, Alkaline Phosphatase 252 H, Troponin I 0.02, NT-Pro-B Natriuret Pep 62802 H, Total Protein 7.3, Albumin 4.4, Globulin 2.9, Albumin/Globulin Ratio 1.5, HCV Ab SERGEY w/Rflx PCR Qn Negative, HIV Ag/Ab Combo Qual Negative 11/01/24 14:55 11/01/24 14:55 Orders (Tests/Meds): ED MEDICATIONS Generic Name Dose Route Start Last Admin Trade Name Freq PRN Reason Stop Dose Admin Diltiazem HCl 100 mg/ Sodium 100 mls @ 5 mls/hr 11/01/24 16:08 Chloride IV 12/01/24 16:07 .Q20H SHENG Protocol 5 MG/HR Heparin Sodium/Dextrose 500 mls @ 20 mls/hr 11/01/24 16:15 Heparin 25,000 Units In D5w 500ml Premix IV 12/01/24 16:14 .Q25H SHENG 1,000 UNITS/HR Discontinued Medications Generic Name Dose Route Start Last Admin Trade Name Freq PRN Reason Stop Dose Admin Heparin Sodium (Porcine) 5,000 unit 11/01/24 16:15 Heparin Sodium 5,000 Unit/Ml Vial IV 11/01/24 16:16 ONCE ONE Miscellaneous 1 each 11/01/24 16:15 Heparin Drip Consult NOTAPPLIC 12/01/24 16:14 CONSULT PHARMACY SHENG ORDERS Category Date Time Status XR chest portable Stat Exams 11/01/24 14:57 Completed BNP [NT Pro Brain Natriuretic Pep.] Stat Lab 11/01/24 14:55 Completed CBC w/Auto Diff [Complete Blood Count Auto Diff] Stat Lab 11/01/24 14:55 Completed CMP [Comprehensive Metabolic Panel] Stat Lab 11/01/24 14:55 Completed HIV Combo Stat Lab 11/01/24 14:55 Completed Hepatitis C Ab Qual. W/ RFX Stat Lab 11/01/24 14:55 Completed INR [Prothrombin Time INR] Stat Lab 11/01/24 14:55 Received Magnesium Stat Lab 11/01/24 14:55 Completed Mini Respiratory Panel Stat Lab 11/01/24 14:57 Ordered PTT Heparin (inpatient only) Stat Lab 11/01/24 14:55 Received Phosphorous Stat Lab 11/01/24 14:55 Completed Trop I [Troponin I] Stat Lab 11/01/24 14:55 Completed Troponin I Q3H Lab 11/01/24 18:00 Ordered Troponin I Q3H Lab 11/01/24 21:00 Ordered HEART Score History (anamnesis): Slightly suspicious ECG: Non-specific disturbance Age: >65 years Risk factors: Atherosclerosis history Troponin: </= normal limit HEART Score: 5 Medical Decision Narrative: In summary patient is a 74-year-old female who presents to the emergency department for evaluation of chest pain. Patient is initially normotensive at 132/86 but tachycardic at 137 satting at 97% on nasal cannula the time my exam breathing 20 times a minute upon arrival, afebrile at 97.8. Physical exam reveals a chronically ill appearing but well-nourished well-developed 74-year-old female who does not appear to be acute distress. Patient has end expiratory Rales but no wheezing or increased work of breathing. Patient appears to be in atrial fibrillation with rapid ventricular response on the bedside monitor but satting at 97% on 2 L nasal cannula which is her baseline. There is no reproducible chest pain on palpation. Abdomen soft nontender no rebound or guarding or rigidity. Patient has trace dependent edema noted.. Differential diagnosis includes A-fib RVR versus volume overload versus ACS versus viral bacterial infection etc. Initial workup will be conducted with hematologic labs twelve-lead EKG plain film chest x-ray.. Initial interventions include continuous cardiac monitoring and pulse oximetry. Initial workup reviewed by me shows a white count of 5.9 hemoglobin Mattock rate of 10.8 and 36.3 respectively with an absolute neutrophil count of 4.9 CMP is significant for a potassium of 5.2 gap of 16.2 CO2 of 31 BUN of 27 creatinine 5.5 with GFR of 8 total bilirubin is 1.7 AST 38 alk phos 252 initial troponin is 0.02 NT proBNP is 73,600 and will inform interpretation of her plain film chest x-ray shows chronic changes of volume overload actually improved when compared to film done on July 27, 2024.. Patient is in atrial fibrillation with rapid ventricular response and is not on chronic anticoagulation due to previous GI bleed. She does get heparin during her dialysis without complication. Patient is on bisoprolol 10 mg daily to control her chronic atrial fibrillation. Given this I have initiated the patient on heparin drip for anticoagulation and initiate a Cardizem drip. As we do not have inpatient dialysis or nephrology have initiated transfer process to a facility that can accommodate dialysis as well. I subsequently called [facility] and Dr. Steel and discussed patient VELASQUEZ findings and patient management. Dr. Steel has accepted the patient in transfer for further evaluation and care. Critical Care Critical Care Time Critical Care Time: Yes Attestation: On 11/01/24, the high probability of a clinically significant, sudden or life threatening deterioration of the following systems: Cardiac, renal, endocrine, respiratory/pulmonary; required my full and direct attention, intervention and personal management. The time I documented below is in addition to time spent performing reported procedures but includes the following listed in this critical care notation. Total Time Total Critical Care Time: 45
--- NOTE | 2024-11-01 14:54 | PC.NURSE ---
LAURA Inman at [facility] for patient eval
--- NOTE | 2024-11-01 14:57 | XR_ITS ---
FINAL REPORT CLINICAL HISTORY: Chest pain COMPARISON: 07/27/2024 FINDINGS: Increase markings in the right lung base are considered chronic. Moderate pulmonary vascular congestion is noted. There is moderate cardiomegaly, which is stable. A left-sided pacemaker is noted. No acute pulmonary opacity is present. There is no evidence of effusion or pneumothorax. Mediastinum is unremarkable. IMPRESSION: Chronic changes right lung. Findings suggestive of mild CHF. Reviewed, Interpreted and Dictated by Brenda Fischer MD Transcribed by Torri Levine Authenticated and [facility]
[2024-11-01 15:04] LABS: Basophils % 0.3 % (0.1-2.0); Eosinophils % 0.3 % (0.1-12.0); Hematocrit 36.3 % (37.0-47.0); Hemoglobin 10.8 g/dL (12.2-16.2); Lymphocytes # 0.6 K/mm3 (0.7-4.5); Lymphocytes % 9.6 % (10-50); Mean Corpuscular HGB Conc 29.8 g/dL (31.8-35.4); Mean Corpuscular Hemoglobin 30.3 pg (27.0-31.2); Mean Corpuscular Volume 101.7 fl (81-99); Mean Platelet Volume 10.5 fl (7.4-10.4); Monocytes # 0.4 K/mm3 (0.1-1.0); Monocytes % 7.3 % (1.7-9.3); Neutrophils # 4.9 K/mm3 (1.8-7.8); Neutrophils % 82.2 % (37.0-80.0); Platelet Count 216 K/mm3 (142-424); Red Blood Count 3.57 M/mm3 (4.20-5.40); Red Cell Distribution Width 20.1 % (11.5-17.5); White Blood Count 5.9 K/mm3 (4.8-10.8)
[2024-11-01 15:13] LABS: Albumin Level 4.4 g/dl (3.5-5.0); Chloride 98 mmol/L (98-107); Potassium 5.2 mmoL/L (3.5-5.1); Sodium 140 mmol/L (136-145)
[2024-11-01 15:15] LABS: Blood Urea Nitrogen 27 mg/dl (7-17); Creatinine Clearance Estimated 12 mL/min (50-200); Estimated Glomerular Filt Rate 8 ml/min (>60); GFR (African American) 9 ML/MIN (>60)
[2024-11-01 15:16] LABS: Alanine Aminotransferase 32 U/L (12-78); Albumin/Globulin Ratio 1.5 (1.1-1.8); Alkaline Phosphatase 252 U/L (38-126); Anion Gap 16.2 mEq/L (5-15); Aspartate Amino Transferase 38 U/L (14-36); Bilirubin,Total 1.7 mg/dl (0.2-1.3); Calcium 9.1 mg/dl (8.4-10.2); Carbon Dioxide 31 mmol/L (22.0-30.0); Globulin 2.9 g/dL (1.3-3.2); Glucose 129 mg/dl (74-100); Magnesium 2.2 mg/dl (1.6-2.3); Phosphorous 4.5 mg/dl (2.5-4.5); Total Protein,Serum 7.3 g/dl (6.3-8.2)
--- NOTE | 2024-11-01 15:27 | PC.NURSE ---
Storm Negro pac notified of critical creatine, she is a known dialysis pt
[2024-11-01 15:28] LABS: Troponin I 0.02 ng/ml (0.00-0.034)
--- NOTE | 2024-11-01 15:43 | PC.NURSE ---
call [facility] for transfer per vasu perry for afib-rvr, renal failure on dialysis
[2024-11-01 15:47] LABS: NT Pro Brain Natriuretic Pep. 73600 pg/mL (0-125)
[2024-11-01] MEDS: dilTIAZem HCL 100 MG in 0.9 % SODIUM CHLORIDE 100 ML IV (16:00)
--- NOTE | 2024-11-01 16:04 | PC.NURSE ---
GEORGE SANCHEZ ON THE PHONE WITH DR PEREZ AT [facility] FOR TRANSFER
[2024-11-01 16:10] LABS: HIV Combo NEGATIVE (Negative)
[2024-11-01 16:18] LABS: Hepatitis C Ab Qual. W/ RFX NEGATIVE (Negative)
--- NOTE | 2024-11-01 16:21 | PC.NURSE ---
s/w William in pharmacy and verified heparin & cardizem dosing, they are not compatible.
[2024-11-01] MEDS: HEPARIN SODIUM 5,000 UNIT/ML VIAL 5000 UNIT IV (16:30)
[2024-11-01] MEDS: HEPARIN SODIUM,PORCINE/D5W 500 ML 20 UNIT IV (16:30)
[2024-11-01 17:18] LABS: PTT Heparin (inpatient only) 25.9 Seconds (50-75)
--- NOTE | 2024-11-01 17:46 | PC.NURSE ---
Called report to [facility]-ICU, s/w Merry VALLE.
--- NOTE | 2024-11-01 17:56 | ECG_ITS ---
APPROVED REPORT Exam: Resting ECG HR:69 bpm ECG Measurements Heart Rate 69 AXES SC 238 P -42 QRSd 133 QRS -78 QT 446 T 91 QTc 466 Conclusion ELECTRONIC ATRIAL PACEMAKER LEFT AXIS DEVIATION [QRS AXIS < -30] INTRAVENTRICULAR CONDUCTION DELAY [130+ ms QRS DURATION] POSSIBLE ANTERIOR MYOCARDIAL INFARCTION , PROBABLY OLD [30 ms Q WAVE IN V3/V4, OR R < 0.2 mV IN V4] ABNORMAL ECG UNCONFIRMED REPORT Electronically signed by : Angel Ogden, 11/01/2024 23:27:14
[2024-11-01 17:59] LABS: INR 1.02 (0.9-1.1); Prothrombin Time 11.2 seconds (10.1-12.5)
--- NOTE | 2024-11-01 18:20 | PC.NURSE ---
[facility] aware of transfer to [facility]
--- NOTE | 2024-11-01 18:47 | PC.NURSE ---
[facility] is still out of the county with another run, they should be back in the county at approx [phone]. Pt & family is aware of the transfer delay.
--- NOTE | 2024-11-01 19:13 | PC.NURSE ---
gave report to [facility]. They are at bedside, just awaiting other truck to finish call.
== END 2024-11-01 20:37 | disposition short-term general hospital (02) ==
PROVIDERS: Physician Assistant; Emergency Provider Student in an Organized Health Care Education/Training Program; PCP Family Medicine
DX: R07.9 Chest pain, unspecified (principal); R06.02 Shortness of breath; R00.0 Tachycardia, unspecified; N18.9 Chronic kidney disease, unspecified; Z99.2 Dependence on renal dialysis
CPT/HCPCS: 71045; 80053; 83735; 83880; 84100; 84484; 85025; 85610; 85730; 86803; 87389; 93005; 96374; 99291; J1644

== ENCOUNTER 2024-11-05 06:59 | Emergency (ER) | payer MEDICARE, SELFPAY ==
[2024-11-05 06:40] VITALS: BP 123/85; PULSE 70; RESP 18; TEMP 36.8; O2SAT 98; BMI 30.4
--- NOTE | 2024-11-05 06:42 | ECG_ITS ---
APPROVED REPORT Exam: Resting ECG HR:84 bpm ECG Measurements Heart Rate 84 AXES NM 242 P -28 QRSd 137 QRS -68 QT 425 T 84 QTc 465 Conclusion A-fib, pacemaker, no STEMI ELECTRONIC ATRIAL PACEMAKER LEFT AXIS DEVIATION [QRS AXIS < -30] LEFT BUNDLE BRANCH BLOCK [120+ ms QRS DURATION, 80+ ms Q/S IN V1/V2, 85+ ms R IN I/aVL/V5/V6] Electronically signed by : FRANK BROCK, 11/06/2024 07:13:53
--- NOTE | 2024-11-05 06:59 | ED_ITS ---
Discharge Plan Disposition Chief Complaint: Chest Pain Prescriptions Prescriptions: No Action atorvastatin 20 mg tablet 20 mg PO HS Qty: 30 5RF prednisone 10 mg tablet 5 mg PO DAILY acetaminophen [Tylenol] 325 mg capsule 325 mg PO QID PRN (Reason: Mild Pain) insulin aspart U-100 100 unit/mL (3 mL) insulin pen 4 unit SQ ACHS insulin glargine 100 unit/mL (3 mL) insulin pen 6 unit SQ DAILY melatonin 5 mg capsule 5 mg PO HS omeprazole 40 mg capsule,delayed release(DR/EC) 40 mg PO DAILY Patient Comments: TAKE 1 CAPSULE BY MOUTH ONCE DAILY. DO NOT CRUSH OR CHEW furosemide 80 mg tablet 80 mg PO BID Patient Comments: TAKE 1 TABLET BY MOUTH TWICE DAILY bisoprolol fumarate 10 mg tablet 10 mg PO DAILY Qty: 31 11RF folic acid 1 MG tablet 1 mg PO DAILY lactulose 10 GM/15 ML solution 20 g PO TID sevelamer carbonate 800 MG tablet 1,600 mg PO TID rifaximin 550 mg tablet 550 mg PO BID albuterol sulfate 90 mcg/actuation HFA aerosol inhaler 4 inh inhalation Q4H PRN (Reason: shortness of breath or wheezing) Qty: 8.5 0RF Rx Instructions: 4 puffs every 4 hours for 48 hours then as needed for shortness of breath or wheezing following pantoprazole 40 mg tablet,delayed release (DR/EC) 40 mg PO BID Patient Comments: TAKE 1 TABLET BY MOUTH TWICE DAILY 30 MINUTES BEFORE BREAKFAST AND DINNER methocarbamol 750 mg tablet 750 mg PO TID 5 Days Qty: 15 0RF Print Language Print Language: Icelandic Discharge ED Provider: Sean Prater General Chief Complaint: Chest Pain Stated Complaint: chest pain Time Seen by Provider: 11/05/24 06:59 Mode of Arrival: EMS Source of Information: Patient Limitations: No Limitations Description of Symptoms (Recalled from ER Triage Doc. by RN): Patient presents to ED via [facility] and states she was in afib with RVR. Patient states she was just d/c from [facility] yesterday. She received dialysis yesterday as well. History of Present Illness HPI narrative: 74-year-old female with CKD, CHF, poor compliance with medical treatment, atrial fibrillation presents to the ER via EMS for concerns of A-fib. Patient reports she was just discharged from [facility] late yesterday. She received dialysis yesterday as well. She reports that all night she was checking her heart rate and it stayed in the 130s. She reports a sensation of palpitations. Patient reports she has had a mild cough but denies shortness of breath, no vomiting or diarrhea, no lightheadedness, numbness, tingling, or weak ness. She states she came in because her heart rate was high but her heart rate was in the low 100s or lower with EMS. On arrival in the ER she is heart rate of 70-100. Patient reports she is now on Eliquis. She has been taking her home medications as prescribed, she has not yet taken her morning medications. ROS otherwise negative Related Data Home Medications ?Medication ?Instructions ?Recorded ?Confirmed folic acid 1 mg tablet 1 mg PO DAILY Supplement 11/29/20 09/11/23 lactulose 10 gram/15 mL oral 20 g PO TID liver 11/29/20 09/11/23 solution sevelamer carbonate 800 mg tablet 1,600 mg PO TID Kidney failure 11/29/20 09/11/23 acetaminophen 325 mg capsule 325 mg PO QID PRN Mild Pain 03/23/21 09/11/23 (Tylenol) insulin aspart U-100 100 unit/mL 4 unit SQ ACHS Diabetes 03/23/21 09/11/23 (3 mL) subcutaneous pen insulin glargine 100 unit/mL (3 6 unit SQ DAILY Diabetes 03/23/21 09/11/23 mL) subcutaneous pen melatonin 5 mg capsule 5 mg PO HS Sleep 03/23/21 09/11/23 prednisone 10 mg tablet 5 mg PO DAILY . 03/23/21 09/11/23 rifaximin 550 mg tablet 550 mg PO BID unk 03/23/21 09/11/23 furosemide 80 mg tablet 80 mg PO BID Fluid 10/12/22 09/11/23 omeprazole 40 mg capsule,delayed 40 mg PO DAILY GERD 10/12/22 09/11/23 release pantoprazole 40 mg tablet,delayed 40 mg PO BID 09/11/23 09/11/23 release Previous Rx's ?Medication ?Instructions ?Recorded atorvastatin 20 mg tablet 20 mg PO HS Cholesterol #30 tabs 10/26/22 albuterol sulfate 90 mcg/actuation 4 inh inhalation Q4H PRN shortness 07/25/23 aerosol inhaler of breath or wheezing #8.5 grams bisoprolol fumarate 10 mg tablet 10 mg PO DAILY #31 tabs 09/18/23 methocarbamol 750 mg tablet 750 mg PO TID 5 days #15 tabs 01/10/24 Allergies Allergy/AdvReac Type Severity Reaction Status Date / Time ceftriaxone Allergy Severe Anaphylaxis Verified 07/08/24 17:00 [facility] Disclaimer: The information contained in this section may have been updated after the patien arlyn was seen, as this information can be updated by other users. Medical History Arteriovenous fistula of right upper extremity Diabetes Abnormal result of cardiovascular function study Typical angina Automatic implantable cardioverter-defibrillator in situ Chronic a-fib Surgical History History of cardiac cath Social History Smoking Status: Never smoker second hand exposure: No alcohol intake: never substance use type: other current occupational status: disabled Travel in the last 8 weeks: None household members: spouse housing: house current occupational exposures/hazards: No caffeine: No Other Medical History Have you received the Flu Vaccine for this season: No Have you received the Pneumonia Vaccine: No ROS Obtained: Yes Systems reviewed as appropriate & no additional complaints except as documented Per HPI Physical Exam General General appearance: alert, in no apparent distress and obese Comment: Chronically ill-appearing Head Head exam: atraumatic and normocephalic Eye Eye exam: Present PERRL and EOMI ENT ENT exam: Present mucous membranes moist Neck Neck exam: Present normal inspection and full ROM Chest Chest inspection: Present symmetric chest wall rise Respiratory Respiratory exam: Absent respiratory distress or stridor Cardiovascular Cardiovascular exam: Present regular rate and irregular rhythm Abdominal Exam Abdominal exam: Present soft; Absent distention or tenderness Extremities Exam Extremities exam: Present full ROM and other (Fistula right upper extremity) Neurological Exam Neurological exam: Present alert and oriented X3; Absent motor sensory deficit Psychiatric Psychiatric exam: Present normal affect and normal mood Skin Skin exam: Present warm and dry HEART Score HEART Score HEART Score assessment performed?: No Procedures Miscellaneous Procedure Procedure Performed: Ultrasound guided IV Indication: need for IV access, multiple failed attempts by nursing Location: LUE Wrist and benefits of procedure explained to the patient, she provided verbal consent Procedure details: Area cleaned with alcohol. Appropriate vessel identified on ultrasound. Real-time ultrasound guidance was used to place 20-gauge IV in the left bicep. Draws and flushes. Secured with Tegaderm. No complications Patient neurovascularly intact before and after procedure. Tolerated well. Critical Care Critical Care Time Critical Care Time: No Medical Decision Making Medical Records Medical records reviewed: Yes I reviewed the patient's medical records. MR Comment: Patient was seen on 11/01/2024 in our ER, she had high heart rate difficulty breathing, she ended up being transferred to [facility]. Her proBNP at that time was 73,600 on my review of labs. Rudy Inquiry Pt receiving controlled substance: No Vital Signs Vital Signs: 11/05/24 06:40 Temperature 98.3 F Temperature Source Oral Pulse Rate [Right Brachial] 70 Respiratory Rate 18 Blood Pressure [Right Arm] 123/85 Blood Pressure Mean [Right Arm] 97 Blood Pressure Source [Right Arm] Automatic Cuff Blood Pressure Position [Right Arm] Supine 02 Sat by Pulse Oximetry 98 Oxygen Delivery Method Room Air Response Orders (Tests/Meds): ORDERS Category Date Time Status HIV Combo Stat Lab 11/05/24 06:44 Ordered Hepatitis C Ab Qual. W/ RFX Stat Lab 11/05/24 06:44 Ordered MDM Narrative Medical Decision Narrative: In summary, this 74-year-old female with comorbidities described in the HPI presents to the emergency department today with palpitations, high heart rate, complaints of A-fib. On initial evaluation patient is hemodynamically stable, heart rate in the 70s during my exam, irregular, patient obviously in atrial fibrillation, pulmonary exam reassuring, remainder of exam benign for this chronically ill patient. Differential diagnosis includes but is not limited to A-fib, RVR, electrolyte abnormality, dehydration, elevated troponin, PE, medication noncompliance. Based on these concerns, I ordered serum labs, cardiac workup, chest x-ray, D-dimer. ECG personally interpreted demonstrates irregular paced rhythm, rate 84, left axis deviation, normal QTc, no STEMI. Lab and imaging workup pending at the time of physician shift change. Patient handed off to Dr. Atkins in stable condition.
--- NOTE | 2024-11-05 07:05 | XR_ITS ---
FINAL REPORT CLINICAL HISTORY: palpitations COMPARISON: 11/01/2024 FINDINGS: The heart size is moderately enlarged. Left-sided pacer is present. There is pulmonary vascular congestion. The mediastinum is normal. There is no focal infiltrate or edema. There are no pleural effusions. There is no pneumothorax. There is no osseous abnormality. IMPRESSION: No acute cardiopulmonary process. Moderate cardiomegaly and pulmonary vascular congestion. Reviewed, Interpreted and Dictated by Dallin Carpenter MD Transcribed by Raquel Srivastava Authenticated and [facility]
[2024-11-05 07:30] VITALS: BP 108/73; PULSE 70; O2SAT 100
[2024-11-05 07:31] LABS: D-Dimer 0.81 ug/mL (0.0-0.5)
[2024-11-05 07:39] LABS: Basophils % 0.6 % (0.1-2.0); Eosinophils # 0.1 K/mm3 (0.0-0.4); Eosinophils % 1.7 % (0.1-12.0); Hematocrit 34.7 % (37.0-47.0); Hemoglobin 10.4 g/dL (12.2-16.2); Lymphocytes # 0.5 K/mm3 (0.7-4.5); Lymphocytes % 9.8 % (10-50); Mean Corpuscular Hemoglobin 29.8 pg (27.0-31.2); Mean Corpuscular Volume 99.4 fl (81-99); Mean Platelet Volume 10.6 fl (7.4-10.4); Monocytes # 0.6 K/mm3 (0.1-1.0); Monocytes % 10.9 % (1.7-9.3); Neutrophils # 4.1 K/mm3 (1.8-7.8); Neutrophils % 76.4 % (37.0-80.0); Platelet Count 143 K/mm3 (142-424); Red Blood Count 3.49 M/mm3 (4.20-5.40); Red Cell Distribution Width 18.1 % (11.5-17.5); White Blood Count 5.4 K/mm3 (4.8-10.8)
[2024-11-05 07:40] LABS: Troponin I 0.02 ng/ml (0.00-0.034)
[2024-11-05 08:01] VITALS: BP 95/70; PULSE 70; O2SAT 98
[2024-11-05 08:07] LABS: Albumin Level 3.8 g/dl (3.5-5.0); Chloride 94 mmol/L (98-107)
[2024-11-05 08:08] LABS: Potassium 4.3 mmoL/L (3.5-5.1); Sodium 134 mmol/L (136-145)
[2024-11-05 08:10] LABS: Alanine Aminotransferase 22 U/L (12-78); Anion Gap 10.3 mEq/L (5-15); Aspartate Amino Transferase 23 U/L (14-36); Blood Urea Nitrogen 31 mg/dl (7-17); Carbon Dioxide 34 mmol/L (22.0-30.0); Creatinine Clearance Estimated 13 mL/min (50-200); Estimated Glomerular Filt Rate 8 ml/min (>60); GFR (African American) 10 ML/MIN (>60)
[2024-11-05 08:11] LABS: Albumin/Globulin Ratio 1.4 (1.1-1.8); Alkaline Phosphatase 202 U/L (38-126); Bilirubin,Total 1.3 mg/dl (0.2-1.3); Calcium 8.8 mg/dl (8.4-10.2); Globulin 2.7 g/dL (1.3-3.2); Glucose 104 mg/dl (74-100); Total Protein,Serum 6.5 g/dl (6.3-8.2)
[2024-11-05 08:32] VITALS: BP 96/72; PULSE 71; RESP 19; O2SAT 100
[2024-11-05 08:49] LABS: Magnesium 2.2 mg/dl (1.6-2.3)
[2024-11-05 09:01] VITALS: BP 98/70; PULSE 76; RESP 22; O2SAT 99
[2024-11-05 09:06] LABS: HIV Combo NEGATIVE (Negative)
[2024-11-05 09:13] LABS: Hepatitis C Ab Qual. W/ RFX NEGATIVE (Negative)
[2024-11-05 09:26] VITALS: BP 96/72; PULSE 70; RESP 20; TEMP 36.8; O2SAT 98
== END 2024-11-05 09:27 | disposition home or self-care (01) ==
PROVIDERS: Emergency Medicine; Emergency Provider Emergency Medicine; PCP Family Medicine
DX: I48.91 Unspecified atrial fibrillation (principal); R07.9 Chest pain, unspecified; R00.2 Palpitations; R05.9 Cough, unspecified
CPT/HCPCS: 71045; 80053; 83735; 84484; 85025; 85378; 86803; 87389; 93005; 99284

== ENCOUNTER 2024-11-26 11:58 | Outpatient (CLI) | payer MEDICARE, SELFPAY ==
--- NOTE | 2024-11-26 12:02 | XR_ITS ---
FINAL REPORT CLINICAL HISTORY: Foot Pain FINDINGS: RIGHT FOOT 3 views of the right foot were obtained. There is no acute fracture or dislocation. Patient is status post amputation of the second digit at the level of the middle phalanx. There are mild degenerative changes with calcaneal spurring. Bones are osteopenic. Visualized joint spaces are normally aligned. Soft tissues are unremarkable. IMPRESSION: No acute bony abnormality. Reviewed, Interpreted and Dictated by Brenda Fischer MD Transcribed by Yanely Parekh Authenticated and [facility]
--- NOTE | 2024-11-26 12:02 | XR_ITS ---
FINAL REPORT CLINICAL HISTORY: Foot Pain FINDINGS: LEFT FOOT Three views of the left foot were obtained. There is partial amputation of the first distal phalanx. 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 No other fracture is identified. Bones are osteopenic. There are scattered, mild degenerative changes and calcaneal spurring. 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 Reviewed, Interpreted and Dictated by Brenda Fischer MD Transcribed by Yanely Parekh Authenticated and [facility]
== END 2024-11-26 23:59 | disposition home or self-care (01) ==
LOC: RAD 11:59
PROVIDERS: PCP Family Medicine; Visit Provider Podiatrist
DX: M79.671 Pain in right foot (principal); M79.672 Pain in left foot
CPT/HCPCS: 73630

== ENCOUNTER 2024-11-27 11:47 | Outpatient (CLI) | payer MEDICARE, SELFPAY ==
--- NOTE | 2024-11-27 11:50 | US_ITS ---
FINAL REPORT CLINICAL HISTORY: decreased sensation, discoloration of toes lt foot,wound rt great toe and 4th digit left foot,dm,htn,hld,claudication,rest pain FINDINGS: ANKLE-BRACHIAL PRESSURE INDICES There is noncompressibility throughout both lower extremities with abnormal waveforms, likely related to moderate severe atherosclerotic disease. IMPRESSION: Probable moderate to severe atherosclerotic disease. Reviewed, Interpreted and Dictated by Susannah Oliver MD Transcribed by Raquel Srivastava Authenticated and [facility]
[2024-11-27 13:23] LABS: Basophils % 0.3 % (0.1-2.0); Eosinophils % 0.1 % (0.1-12.0); Hematocrit 35.1 % (37.0-47.0); Hemoglobin 10.8 g/dL (12.2-16.2); Lymphocytes # 0.6 K/mm3 (0.7-4.5); Mean Corpuscular HGB Conc 30.8 g/dL (31.8-35.4); Mean Corpuscular Hemoglobin 30.3 pg (27.0-31.2); Mean Corpuscular Volume 98.3 fl (81-99); Mean Platelet Volume 10.2 fl (7.4-10.4); Monocytes # 0.7 K/mm3 (0.1-1.0); Neutrophils # 5.4 K/mm3 (1.8-7.8); Platelet Count 175 K/mm3 (142-424); Red Blood Count 3.57 M/mm3 (4.20-5.40); Red Cell Distribution Width 18.9 % (11.5-17.5); White Blood Count 6.8 K/mm3 (4.8-10.8)
[2024-11-27 13:30] LABS: Albumin Level 4.4 g/dl (3.5-5.0); Chloride 94 mmol/L (98-107); Potassium 4.9 mmoL/L (3.5-5.1); Sodium 138 mmol/L (136-145)
[2024-11-27 13:33] LABS: Alanine Aminotransferase 19 U/L (12-78); Albumin/Globulin Ratio 1.8 (1.1-1.8); Alkaline Phosphatase 236 U/L (38-126); Anion Gap 17.9 mEq/L (5-15); Aspartate Amino Transferase 23 U/L (14-36); Bilirubin,Total 1.5 mg/dl (0.2-1.3); Blood Urea Nitrogen 28 mg/dl (7-17); Carbon Dioxide 31 mmol/L (22.0-30.0); Estimated Glomerular Filt Rate 8 ml/min (>60); GFR (African American) 9 ML/MIN (>60); Globulin 2.5 g/dL (1.3-3.2); Total Protein,Serum 6.9 g/dl (6.3-8.2)
[2024-11-27 13:34] LABS: Calcium 8.7 mg/dl (8.4-10.2); Glucose 86 mg/dl (74-100)
[2024-11-27 13:39] LABS: C-Reactive Protein 44.1 mg/L (0-4)
[2024-11-27 14:19] LABS: Erythrocyte Sedimentation Rate 26 mm/hr (0-30)
[2024-11-27 15:37] LABS: Hemoglobin A1C 5.8 % (4.0-6.0)
== END 2024-11-27 23:59 | disposition home or self-care (01) ==
LOC: RT 11:48
PROVIDERS: PCP Family Medicine; Visit Provider Nurse Practitioner
DX: R09.89 Other specified symptoms and signs involving the circulatory and respiratory systems (principal); S91.101A Unspecified open wound of right great toe without damage to nail, initial encounter; S91.105A Unspecified open wound of left lesser toe(s) without damage to nail, initial encounter; E11.621 Type 2 diabetes mellitus with foot ulcer; L97.509 Non-pressure chronic ulcer of other part of unspecified foot with unspecified severity; B96.20 Unspecified Escherichia coli [E. coli] as the cause of diseases classified elsewhere
CPT/HCPCS: 36415; 80053; 83036; 85025; 85651; 86140; 87070; 87077; 87186; 87205; 93923

== ENCOUNTER 2024-12-03 15:47 | Emergency (ER) | payer MEDICARE, SELFPAY ==
[2024-12-03] VITALS (12 sets, daily range): BP systolic 92–121; BP diastolic 65–82; PULSE 66–73; RESP 13–21; TEMP 36.6–37; O2SAT 90–100; BMI 36.6
--- NOTE | 2024-12-03 16:05 | XR_ITS ---
PROCEDURE INFORMATION: Exam: XR Chest Exam date and time: 12/03/2024 4:59 PM Age: 74 years old Clinical indication: Pain; Other: Cp to left arm and jaw TECHNIQUE: Imaging protocol: Radiologic exam of the chest. Views: 1 view. COMPARISON: CR XR CHEST PORTABLE 11/05/2024 7:18 AM FINDINGS: Tubes, catheters and devices: Left chest wall dual lead pacemaker in place. Lungs: Unchanged pulmonary vascular congestion. Low lung volumes with mild bibasilar atelectasis. Pleural spaces: Normal. No pleural effusion. No pneumothorax. Heart/Mediastinum: Unchanged cardiomegaly. Pacer leads terminate in the right atrium and right ventricle. Vasculature: Atherosclerotic plaque in the aortic arch. Bones/joints: Unremarkable. IMPRESSION: Unchanged cardiomegaly and pulmonary vascular congestion. No evidence of pulmonary edema.
--- NOTE | 2024-12-03 16:06 | ECG_ITS ---
APPROVED REPORT Exam: Resting ECG HR:72 bpm ECG Measurements Heart Rate 72 AXES CA 263 P -43 QRSd 133 QRS -56 QT 438 T 93 QTc 463 Conclusion ELECTRONIC ATRIAL PACEMAKER LEFT AXIS DEVIATION [QRS AXIS < -30] LEFT BUNDLE BRANCH BLOCK [120+ ms QRS DURATION, 80+ ms Q/S IN V1/V2, 85+ ms R IN I/aVL/V5/V6] ABNORMAL ECG UNCONFIRMED REPORT Electronically signed by : KENN CAZARES, 12/06/2024 00:00:39
--- NOTE | 2024-12-03 16:13 | PC.NURSE ---
Patient is okay at this time and doesnt need anything. Call light is in reach. Family is at bedside.
[2024-12-03] MEDS: METHOCARBAMOL 500MG TABLET 1500 MG PO (16:39)
[2024-12-03] MEDS: ONDANSETRON 4MG/2ML VIAL 4 MG IV (16:39)
[2024-12-03] MEDS: ACETAMINOPHEN 1,000MG/100ML VIAL 1000 MG IV (16:39)
[2024-12-03 16:45] LABS: Lactate Venous 1.9 mmol/L (0.4-2.0); VBG Base Excess 3.9 mmol/L (-2.4-2.3); VBG HCO3 29.5 mmol/L (23-30); VBG PH 7.35 mmol/L (7.31-7.41); VBG PO2 39.9 mmol/L (28-40); VBG Total CO2 31.1 mmol/L (23-27)
[2024-12-03 16:48] LABS: VBG PCO2 54.2 mmol/L (35-51)
[2024-12-03 16:49] LABS: Basophils % 0.3 % (0.1-2.0); Eosinophils # 0.1 K/mm3 (0.0-0.4); Hematocrit 31.4 % (37.0-47.0); Hemoglobin 9.5 g/dL (12.2-16.2); Lymphocytes # 0.5 K/mm3 (0.7-4.5); Lymphocytes % 6.9 % (10-50); Mean Corpuscular HGB Conc 30.3 g/dL (31.8-35.4); Mean Corpuscular Hemoglobin 29.8 pg (27.0-31.2); Mean Corpuscular Volume 98.4 fl (81-99); Mean Platelet Volume 10.2 fl (7.4-10.4); Monocytes # 0.9 K/mm3 (0.1-1.0); Monocytes % 12.1 % (1.7-9.3); Neutrophils # 5.7 K/mm3 (1.8-7.8); Neutrophils % 79.1 % (37.0-80.0); Platelet Count 163 K/mm3 (142-424); Red Blood Count 3.19 M/mm3 (4.20-5.40); Red Cell Distribution Width 17.8 % (11.5-17.5); White Blood Count 7.2 K/mm3 (4.8-10.8)
[2024-12-03 16:53] LABS: Albumin Level 3.7 g/dl (3.5-5.0); Chloride 93 mmol/L (98-107); Sodium 135 mmol/L (136-145)
[2024-12-03 16:55] LABS: Blood Urea Nitrogen 20 mg/dl (7-17); Estimated Glomerular Filt Rate 11 ml/min (>60); GFR (African American) 14 ML/MIN (>60)
[2024-12-03 16:56] LABS: Alanine Aminotransferase 20 U/L (12-78); Albumin/Globulin Ratio 1.3 (1.1-1.8); Alkaline Phosphatase 176 U/L (38-126); Aspartate Amino Transferase 27 U/L (14-36); Bilirubin,Total 0.9 mg/dl (0.2-1.3); Calcium 8.5 mg/dl (8.4-10.2); Carbon Dioxide 35 mmol/L (22.0-30.0); Globulin 2.8 g/dL (1.3-3.2); Glucose 142 mg/dl (74-100); Lipase 40 U/L (23-300); Total Protein,Serum 6.5 g/dl (6.3-8.2)
[2024-12-03 17:07] LABS: INR 1.11 (0.9-1.1); Prothrombin Time 12.1 seconds (9.2-12.1)
[2024-12-03 17:09] LABS: Troponin I < 0.01 ng/ml (0.00-0.034)
--- NOTE | 2024-12-03 17:49 | HMH.EDGENADL ---
Discharge Plan Disposition Patient Disposition: Home, Self-Care Chief Complaint: Chest Pain Prescriptions Prescriptions: No Action atorvastatin 20 mg tablet 20 mg PO HS Qty: 30 5RF prednisone 10 mg tablet 5 mg PO DAILY acetaminophen [Tylenol] 325 mg capsule 325 mg PO QID PRN (Reason: Mild Pain) insulin aspart U-100 100 unit/mL (3 mL) insulin pen 4 unit SQ ACHS insulin glargine 100 unit/mL (3 mL) insulin pen 6 unit SQ DAILY melatonin 5 mg capsule 5 mg PO HS omeprazole 40 mg capsule,delayed release(DR/EC) 40 mg PO DAILY Patient Comments: TAKE 1 CAPSULE BY MOUTH ONCE DAILY. DO NOT CRUSH OR CHEW furosemide 80 mg tablet 80 mg PO BID Patient Comments: TAKE 1 TABLET BY MOUTH TWICE DAILY mupirocin 2 % ointment 1 applic topical BID 14 Days Qty: 15 0RF Kerasal Fungal Nail Renewal Solution 1 ml topical BID 28 Days Qty: 10 3RF bisoprolol fumarate 10 mg tablet 10 mg PO DAILY Qty: 31 11RF levofloxacin 500 mg tablet 500 mg PO DAILY 7 Days Qty: 7 0RF folic acid 1 MG tablet 1 mg PO DAILY lactulose 10 GM/15 ML solution 20 g PO TID sevelamer carbonate 800 MG tablet 1,600 mg PO TID rifaximin 550 mg tablet 550 mg PO BID albuterol sulfate 90 mcg/actuation HFA aerosol inhaler 4 inh inhalation Q4H PRN (Reason: shortness of breath or wheezing) Qty: 8.5 0RF Rx Instructions: 4 puffs every 4 hours for 48 hours then as needed for shortness of breath or wheezing following pantoprazole 40 mg tablet,delayed release (DR/EC) 40 mg PO BID Patient Comments: TAKE 1 TABLET BY MOUTH TWICE DAILY 30 MINUTES BEFORE BREAKFAST AND DINNER methocarbamol 750 mg tablet 750 mg PO TID 5 Days Qty: 15 0RF Referrals Follow up/Referrals: Aldo Juarez MD [Primary Care Provider] - See instructions Activity Restrictions/Add. Instructions Additional Instructions/Restrictions: Call your family doctor to establish care for this visit to the emergency department and schedule follow-up within 48 hours to ensure improvement. If you have any worsening of your condition or any other concerning signs or symptoms, return to the emergency department or your primary care doctor for further evaluation. Also call your physician executive to discuss follow-up Clinical Impressions Clinical Impression: Epigastric pain, Chest pain, Diarrhea, Nausea Print Language Print Language: Cymraes Discharge ED Provider: Surya Rosario General Adult HPI General Chief complaint: Chest Pain Stated complaint: chest pain Time Seen by Provider: 12/03/24 15:52 Mode of Arrival: Wheelchair Source of Information: Patient, Relative and Medical Record Limitations: No Limitations Description of Symptoms (Recalled from ER Triage Doc. by RN): Pt presents to ER with c/o pain to mulplte areas and difficulty swallowing water. She is a cardiac pt, has a pacemaker, dialysis pt (last was 0800 today). Pt states she went home and has felt like she could not swallow well. Her pacemaker site is tender and painful with radiating pain to left arm. History of Present Illness HPI narrative: Please note that above description of symptoms, in this electronic medical record under categorization of recalled from ER triage doctor by RN are reflective of an initial nursing assessment, however, is not reflective of my full history and physical exam that was personally taken and clarified. Consequentially, this preceding description of symptoms, which may include the patient's categorized chief complaint in the EMR, do not reflect my personal clinical impression, and the ultimate description of history of present illness and patient stated complaints should be deferred to this section of the note. Unless stated otherwise or congruent with this section of the note, additional signs, symptoms, or incongruence should be interpreted as inaccurate with my clinical impression. Related Data Home Medications ?Medication ?Instructions ?Recorded ?Confirmed folic acid 1 mg tablet 1 mg PO DAILY Supplement 11/29/20 11/27/24 lactulose 10 gram/15 mL oral 20 g PO TID liver 11/29/20 11/27/24 solution sevelamer carbonate 800 mg tablet 1,600 mg PO TID Kidney failure 11/29/20 11/27/24 acetaminophen 325 mg capsule 325 mg PO QID PRN Mild Pain 03/23/21 11/27/24 (Tylenol) insulin aspart U-100 100 unit/mL 4 unit SQ ACHS Diabetes 03/23/21 11/27/24 (3 mL) subcutaneous pen insulin glargine 100 unit/mL (3 6 unit SQ DAILY Diabetes 03/23/21 11/27/24 mL) subcutaneous pen melatonin 5 mg capsule 5 mg PO HS Sleep 03/23/21 11/27/24 prednisone 10 mg tablet 5 mg PO DAILY . 03/23/21 11/27/24 rifaximin 550 mg tablet 550 mg PO BID unk 03/23/21 11/27/24 furosemide 80 mg tablet 80 mg PO BID Fluid 10/12/22 11/27/24 omeprazole 40 mg capsule,delayed 40 mg PO DAILY GERD 10/12/22 11/27/24 release pantoprazole 40 mg tablet,delayed 40 mg PO BID 09/11/23 11/27/24 release Previous Rx's ?Medication ?Instructions ?Recorded atorvastatin 20 mg tablet 20 mg PO HS Cholesterol #30 tabs 10/26/22 albuterol sulfate 90 mcg/actuation 4 inh inhalation Q4H PRN shortness 07/25/23 aerosol inhaler of breath or wheezing #8.5 grams bisoprolol fumarate 10 mg tablet 10 mg PO DAILY #31 tabs 09/18/23 methocarbamol 750 mg tablet 750 mg PO TID 5 days #15 tabs 01/10/24 mupirocin 2 % topical ointment 1 applic topical BID infection 14 11/27/24 days #15 grams urea-lactic acid-propylene glycol 1 ml topical BID 4 weeks #10 mL 11/27/24 topical solution (Kerasal Fungal Nail Renewal topical solution) levofloxacin 500 mg tablet 500 mg PO DAILY infection 7 days 12/02/24 #7 tabs Allergies Allergy/AdvReac Type Severity Reaction Status Date / Time ceftriaxone Allergy Severe Anaphylaxis Verified 11/27/24 10:47 [facility] Disclaimer: The information contained in this section may have been updated after the patient was seen, as this information can be updated by other users. Medical History Arteriovenous fistula of right upper extremity Diabetes Abnormal result of cardiovascular function study Typical angina Automatic implantable cardioverter-defibrillator in situ [id number] Chronic a-fib Surgical History History of cardiac cath Social History Smoking Status: Never smoker second hand exposure: No alcohol intake: never substance use type: other current occupational status: disabled Travel in the last 8 weeks: None household members: spouse housing: house current occupational exposures/hazards: No caffeine: No Have you lived/traveled outside [place] in past 30 days?: No Contact w/someone who lives/traveled outside [place] past 30 days?: No Exposure to someone with infectious disease in past 14 days?: No Do you have a fever (greater than 100.4 F or 38 C)?: No Have you tested positive for COVID-19: No Exposed to someone with COVID-19 in past 14 days?: No Do you have a sore throat?: No Do you have a cough?: No Do you have any weakness?: No Do you have any diarrhea?: No Are you experiencing any unusual bleeding?: No Do you have any muscle aches/pain?: No Do you have any abdominal pain?: No Are you experiencing loss of taste or smell?: No Other Medical History Have you received the Flu Vaccine for this season: No Have you received the Pneumonia Vaccine: Yes ROS Obtained: Yes All systems reviewed & no additional complaints except as documented Physical Exam General General appearance: alert Head Head exam: atraumatic and normocephalic Eye Eye exam: Present normal appearance, PERRL and EOMI Neck Neck exam: Present normal inspection, full ROM and trachea midline Respiratory Respiratory exam: Present normal lung sounds bilaterally; Absent respiratory distress, wheezes, stridor, accessory muscle use or prolonged expiratory phase Cardiovascular Cardiovascular exam: Present regular rate, normal rhythm and other (Pulses equal symmetric in upper and lower extremities) Abdominal Exam Abdominal exam: Present soft; Absent distention, tenderness, guarding, rebound or pulsatile mass Extremities Exam Extremities exam: Present edema Neurological Exam Neurological exam: Present alert, oriented X3 and CN II-XII intact; Absent motor sensory deficit Skin Skin exam: Present warm and dry; Absent diaphoresis or erythema Medical Decision Making Medical Records Medical records reviewed: Yes I reviewed the patient's medical records. Screening: Per USPSTF and CDC recommendations, given the prevalence of disease in our region, it is our hospital?s policy to screen for HIV and viral Hepatitis for all patients aged 18 and over and those with ongoing risk factors. Rudy Inquiry Pt receiving controlled substance: No Rudy was queried for this patient: No Vital Signs: 12/03/24 15:47 12/03/24 16:04 12/03/24 16:15 Temperature 98.6 F Temperature Source Oral Pulse Rate 70 70 Pulse Rate [Left] 70 Respiratory Rate 20 16 14 Blood Pressure 106/77 L Blood Pressure [Left Arm] 121/67 Blood Pressure Mean [Left Arm] 85 Blood Pressure Source [Left Arm] Automatic Cuff 02 Sat by Pulse Oximetry 98 90 L 100 Oxygen Delivery Method Nasal Cannula Oxygen Flow Rate (LPM) 2 12/03/24 16:30 12/03/24 16:45 12/03/24 16:54 Temperature Temperature Source Pulse Rate Pulse Rate [Left] Respiratory Rate 17 21 17 Blood Pressure 92/65 L Blood Pressure [Left Arm] Blood Pressure Mean [Left Arm] Blood Pressure Source [Left Arm] 02 Sat by Pulse Oximetry Oxygen Delivery Method Oxygen Flow Rate (LPM) 12/03/24 17:00 12/03/24 17:09 12/03/24 17:15 Temperature Temperature Source Pulse Rate 72 73 Pulse Rate [Left] Respiratory Rate 13 19 16 Blood Pressure 98/68 L Blood Pressure [Left Arm] Blood Pressure Mean [Left Arm] Blood Pressure Source [Left Arm] 02 Sat by Pulse Oximetry 100 99 Oxygen Delivery Method Oxygen Flow Rate (LPM) 12/03/24 17:30 12/03/24 18:00 Temperature Temperature Source Pulse Rate 71 66 Pulse Rate [Left] Respiratory Rate 17 17 Blood Pressure 102/71 L 102/72 L Blood Pressure [Left Arm] Blood Pressure Mean [Left Arm] Blood Pressure Source [Left Arm] 02 Sat by Pulse Oximetry 100 100 Oxygen Delivery Method Oxygen Flow Rate (LPM) Lab Data Lab Results 12/03/24 16:06: VBG pH 7.35, VBG pCO2 54.2 H, VBG pO2 39.9, VBG HCO3 29.5, VBG Total CO2 31.1 H, VBG O2 Saturation 69.0, VBG Base Excess 3.9 H, VBG Lactic Acid 1.9 12/03/24 16:30: WBC 7.2, RBC 3.19 L, Hgb 9.5 L, Hct 31.4 L, MCV 98.4, MCH 29.8, MCHC 30.3 L, RDW 17.8 H, Plt Count 163, MPV 10.2, Neut % (Auto) 79.1, Lymph % (Auto) 6.9 L, [place] % (Auto) 12.1 H, Eos % (Auto) 1.0, Baso % (Auto) 0.3, Neut # (Auto) 5.7, Lymph # (Auto) 0.5 L, [place] # (Auto) 0.9, Eos # (Auto) 0.1, Baso # (Auto) 0.0, PT 12.1, INR 1.11 H, APTT 27.0, Sodium 135 L, Potassium 5.0, Chloride 93 L, Carbon Dioxide 35 H, Anion Gap 12.0, BUN 20 H, Creatinine 3.90 H, Estimated GFR 11 L*, Est GFR ( Amer) 14 L*, Glucose 142 H, Calcium 8.5, Magnesium 2.0, Total Bilirubin 0.9, AST 27, ALT 20, Alkaline Phosphatase 176 H, Troponin I < 0.01, Total Protein 6.5, Albumin 3.7, Globulin 2.8, Albumin/Globulin Ratio 1.3, Lipase 40 12/03/24 19:20: Troponin I < 0.01 12/03/24 16:30 12/03/24 16:30 Orders (Tests/Meds): ED MEDICATIONS Discontinued Medications Generic Name Dose Route Start Last Admin Trade Name Freq PRN Reason Stop Dose Admin Acetaminophen 1,000 mg 12/03/24 16:05 12/03/24 16:39 Acetaminophen 1,000mg/100ml Vial IV 12/03/24 16:06 1,000 mg ONCE ONE Administration Methocarbamol 1,500 mg 12/03/24 16:05 12/03/24 16:39 Methocarbamol 500mg Tablet PO 12/03/24 16:06 1,500 mg ONCE ONE Administration Ondansetron HCl 4 mg 12/03/24 16:06 12/03/24 16:39 Ondansetron 4mg/2ml Vial IV 12/03/24 16:07 4 mg ONCE ONE Administration ORDERS Category Date Time Status XR chest portable Stat Exams 12/03/24 16:05 Completed Complete Blood Count Auto Diff Stat Lab 12/03/24 16:30 Completed Comprehensive Metabolic Panel Stat Lab 12/03/24 16:30 Completed Lipase Stat Lab 12/03/24 16:30 Completed Magnesium Stat Lab 12/03/24 16:30 Completed PT INR [Prothrombin Time INR] Stat Lab 12/03/24 16:30 Completed PTT [Activated Partial Thrombo Time] Stat Lab 12/03/24 16:30 Completed Troponin I Q3H Lab 12/03/24 19:20 Completed Troponin I Q3H Lab 12/03/24 22:15 Ordered Troponin I Stat Lab 12/03/24 16:30 Completed Venous Blood Gas Stat RT 12/03/24 16:06 Completed Medical Decision Narrative: 74-year-old female history of hypertension, hyperlipidemia, cardiomyopathy with pacemaker defibrillator in place, diabetes, CKD on dialysis Monday producing some urine presenting with multiple complaints. States that she has painful left foot from recent injury, pain overlying her pacemaker,, shoulder pain, jaw pain, back pain. She was not doing anything in particular when this started. Had just finished dialysis and otherwise felt okay. Nausea without vomiting. States that it feels like something is stuck and I need to vomit it out. States that she has also had loose diarrhea for the last couple of days. History was obtained via conversation with patient and family. On arrival, patient hemodynamically stable, alert, oriented x4, appropriate, GCS 15, moving all extremities spontaneously, pupils equal and reactive to light. Full physical exam performed and significant for chronically ill-appearing female no acute distress. Abdomen soft, nondistended, nontender on my exam. No overlying skin changes. Heart and lungs within normal limits with the exception of systolic ejection murmur heard at left lower sternal border. Minimal 1+ lower extremity pitting edema. differential includes pud, gastritis, gastroenteritis, pancreatitias, microvascular coronary artery disease, CHF, ACS, WI, coronary artery dissection, pneumothorax, PE, dissection, pericarditis, myocarditis, pneumothorax, aortic aneurysm, pneumonia, bronchitis, among others. Patient placed on continuous cardiac monitoring and continuous pulse ox with initial blood pressure 121/67, heart rate of and he, saturation 98% on room air. Independent interpretation of EKG shows a paced rhythm with AZ interval 263, QRS 133, QTc 463. Left bundle branch block morphology, left axis deviation, no acute ischemic change. Patient was given Tylenol 1000 mg for symptomatic management and correction of underlying abnormalities. Workup independently interpreted and significant for nonactionable CBC or coags. Chemistry with stable findings. Troponin negative. Lipase normal.. On independent interpretation of imaging, pulmonary vascular congestion without overt edema or airspace disease. Patient was placed in observation beginning at 1630 in order to rule out evolving WI with delta troponin and determine need for admission versus home-going. The patient was provided serial exams, monitoring, delta troponins while awaiting results. Independent interpretation of results demonstrated negative delta troponin. On reevaluation, patient still resting baseline, comfortably, needed to be woken up. At this time, I feel patient is appropriate for discharge. Total observation time 4 hours. Given patient presentation, workup, history, this most likely represents gastroenteritis. It was explained that cardiac chest pain cannot be completely ruled out, recommend she follow-up with her family doctor and physician executive, she voiced her understanding. Because patient at baseline without signs or symptoms of clinical decompensation, deemed appropriate for discharge. Results were relayed to patient who voiced understanding and were agreeable to outpatient management and follow up. I discussed my clinical impression with patient and answered all questions. At this time, the evidence for any other entities in the differential is insufficient to warrant any further testing or ED observation. This was explained as well. Advisory was given that persistent or worsening symptoms require further evaluation. I confirmed the understanding of this discussion. Retail Property Manager disclaimer Much of this encounter note is an electronic fleet administrative assistant spoken language to printed text. Electronic fleet administrative assistant of the spoken language may permit errors. Although I have reviewed the note, some errors may still exist. Critical Care Critical Care Time Critical Care Time: No
--- NOTE | 2024-12-03 18:56 | PC.NURSE ---
ROUNDED ON THE PT. THE PT VOICES THAT SHE DOES NOT NEED ANYTHING AT THIS TIME. CALL LIGHT IS WITHIN REACH OF THE PT. FAMILY MEMBER IS PRESENT AT THE BEDSIDE.
[2024-12-03 20:17] LABS: Troponin I < 0.01 ng/ml (0.00-0.034)
== END 2024-12-03 20:36 | disposition home or self-care (01) ==
PROVIDERS: Emergency Provider Emergency Medicine; PCP Family Medicine
DX: R07.9 Chest pain, unspecified (principal); R11.0 Nausea; R19.7 Diarrhea, unspecified; R10.13 Epigastric pain; R13.10 Dysphagia, unspecified; M79.602 Pain in left arm; N18.6 End stage renal disease; Z95.0 Presence of cardiac pacemaker; Z99.2 Dependence on renal dialysis
CPT/HCPCS: 71045; 80053; 82803; 83690; 83735; 84484; 85025; 85610; 85730; 93005; 96374; 96375; 99284; J0131; J2405

== ENCOUNTER 2024-12-05 08:06 | Emergency (ER) | payer MEDICARE, SELFPAY ==
[2024-12-05 08:07] VITALS: BP 107/74; PULSE 73; RESP 16; TEMP 36.8; O2SAT 97; BMI 29.8
[2024-12-05 08:14] VITALS: BP 107/74; PULSE 63; O2SAT 96
--- NOTE | 2024-12-05 08:33 | PC.NURSE ---
I rounded on the pt and helped reposition her in the bed for comfort. I also took her a glass of ice water with Dr. Mejia's blessing. no other needs voiced. no new complaints. call turpin in reach.
--- NOTE | 2024-12-05 08:43 | XR_ITS ---
FINAL REPORT CLINICAL HISTORY: R hip pain. no injury FINDINGS: Two views were obtained. There is no fracture or dislocation. There is degenerative joint disease of the hip and knee. Vascular calcification is identified. No soft tissue abnormality is identified. IMPRESSION: No acute process. Reviewed, Interpreted and Dictated by Susannah lOiver MD Transcribed by Candy Hayes Authenticated and [facility]
--- NOTE | 2024-12-05 08:43 | XR_ITS ---
FINAL REPORT CLINICAL HISTORY: pain in right hip and pelvis FINDINGS: Two views leg views of the right hip were obtained. There is no acute fracture or dislocation. There is degenerative disease of the hips bilaterally. Soft tissues are unremarkable. IMPRESSION: No acute osseous abnormality of the right hip. Reviewed, Interpreted and Dictated by Susannah Oliver MD Transcribed by Candy Hayes Authenticated and [facility]
--- NOTE | 2024-12-05 08:45 | HMH.EDGENADL ---
Discharge Plan Disposition Patient Disposition: Home, Self-Care Condition: Fair Prescriptions Prescriptions: New methocarbamol 750 mg tablet 750 mg PO QID 10 Days Qty: 40 0RF lidocaine 5 % adhesive patch,medicated 1 patch topical DAILY Qty: 15 0RF Rx Instructions: leave on most painful area for up to 12 hrs Discontinued methocarbamol 750 mg tablet 750 mg PO TID 5 Days Qty: 15 0RF No Action atorvastatin 20 mg tablet 20 mg PO HS Qty: 30 5RF prednisone 10 mg tablet 5 mg PO DAILY acetaminophen [Tylenol] 325 mg capsule 325 mg PO QID PRN (Reason: Mild Pain) insulin aspart U-100 100 unit/mL (3 mL) insulin pen 4 unit SQ ACHS insulin glargine 100 unit/mL (3 mL) insulin pen 6 unit SQ DAILY melatonin 5 mg capsule 5 mg PO HS omeprazole 40 mg capsule,delayed release(DR/EC) 40 mg PO DAILY Patient Comments: TAKE 1 CAPSULE BY MOUTH ONCE DAILY. DO NOT CRUSH OR CHEW furosemide 80 mg tablet 80 mg PO BID Patient Comments: TAKE 1 TABLET BY MOUTH TWICE DAILY mupirocin 2 % ointment 1 applic topical BID 14 Days Qty: 15 0RF Kerasal Fungal Nail Renewal Solution 1 ml topical BID 28 Days Qty: 10 3RF bisoprolol fumarate 10 mg tablet 10 mg PO DAILY Qty: 31 11RF levofloxacin 500 mg tablet 500 mg PO DAILY 7 Days Qty: 7 0RF folic acid 1 MG tablet 1 mg PO DAILY lactulose 10 GM/15 ML solution 20 g PO TID sevelamer carbonate 800 MG tablet 1,600 mg PO TID rifaximin 550 mg tablet 550 mg PO BID albuterol sulfate 90 mcg/actuation HFA aerosol inhaler 4 inh inhalation Q4H PRN (Reason: shortness of breath or wheezing) Qty: 8.5 0RF Rx Instructions: 4 puffs every 4 hours for 48 hours then as needed for shortness of breath or wheezing following pantoprazole 40 mg tablet,delayed release (DR/EC) 40 mg PO BID Patient Comments: TAKE 1 TABLET BY MOUTH TWICE DAILY 30 MINUTES BEFORE BREAKFAST AND DINNER Referrals Follow up/Referrals: Aldo Juarez MD [Primary Care Provider] - See instructions Activity Restrictions/Add. Instructions Additional Instructions/Restrictions: Your x-rays were negative for fracture or dislocation at this time. He likely suffered a severe muscular strain of the right hip. This will take time to improve but is important that you treat your pain with your home hydrocodone, the new Robaxin prescription and topical lidocaine patch. You can also apply heat or ice to the area when you are sitting down for 20 minutes at a time and never directly onto the skin. Continue to walk with your walker as you are able to. Follow-up with your primary care provider in the next few days for reevaluation. Please return to ED if your symptoms worsen, change in location, change in severity, new symptoms develop or if you become concerned for your health. Clinical Impressions Clinical Impression: Lateral pain of right hip Instructions Patient Instructions: DI for Muscle Strain Print Language Print Language: Kiswahili Discharge ED Provider: Renata Mejia General Adult HPI General Chief complaint: PAIN Stated complaint: RT leg pain Time Seen by Provider: 12/05/24 08:15 Mode of Arrival: Wheelchair Source of Information: Patient and Relative Limitations: No Limitations Description of Symptoms (Recalled from ER Triage Doc. by RN): pt presents to ED with c/o right hip pain. pt reports that she was getting ready for dialysis this morning and felt pain and a pop in her right hip. pt has chronic left hip pain. 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 History of Present Illness HPI narrative: Torri Burk is a 74 y/o female presenting with hip pain. Patient states she was getting up and getting ready to go to dialysis this morning when her chronic right hip pain started to bother her. She attempted to put pain relief cream on her right hip when she felt a pop while twisting to the right. Patient states she typically ambulates with a walker and had difficulty with this due to pain in the right hip. She denies shooting pain sensation down the leg, lower back pain, loss of bowel or bladder or numbness. Patient denies falling. Related Data Home Medications ?Medication ?Instructions ?Recorded ?Confirmed folic acid 1 mg tablet 1 mg PO DAILY Supplement 11/29/20 12/05/24 lactulose 10 gram/15 mL oral 20 g PO TID liver 11/29/20 12/05/24 solution sevelamer carbonate 800 mg tablet 1,600 mg PO TID Kidney failure 11/29/20 12/05/24 acetaminophen 325 mg capsule 325 mg PO QID PRN Mild Pain 03/23/21 12/05/24 (Tylenol) insulin aspart U-100 100 unit/mL 4 unit SQ ACHS Diabetes 03/23/21 12/05/24 (3 mL) subcutaneous pen insulin glargine 100 unit/mL (3 6 unit SQ DAILY Diabetes 03/23/21 12/05/24 mL) subcutaneous pen melatonin 5 mg capsule 5 mg PO HS Sleep 03/23/21 12/05/24 prednisone 10 mg tablet 5 mg PO DAILY . 03/23/21 12/05/24 rifaximin 550 mg tablet 550 mg PO BID unk 03/23/21 12/05/24 furosemide 80 mg tablet 80 mg PO BID Fluid 10/12/22 12/05/24 omeprazole 40 mg capsule,delayed 40 mg PO DAILY GERD 10/12/22 12/05/24 release pantoprazole 40 mg tablet,delayed 40 mg PO BID 09/11/23 12/05/24 release Previous Rx's ?Medication ?Instructions ?Recorded atorvastatin 20 mg tablet 20 mg PO HS Cholesterol #30 tabs 10/26/22 albuterol sulfate 90 mcg/actuation 4 inh inhalation Q4H PRN shortness 07/25/23 aerosol inhaler of breath or wheezing #8.5 grams bisoprolol fumarate 10 mg tablet 10 mg PO DAILY #31 tabs 09/18/23 mupirocin 2 % topical ointment 1 applic topical BID infection 14 11/27/24 days #15 grams urea-lactic acid-propylene glycol 1 ml topical BID 4 weeks #10 mL 11/27/24 topical solution (Kerasal Fungal Nail Renewal topical solution) levofloxacin 500 mg tablet 500 mg PO DAILY infection 7 days 12/02/24 #7 tabs lidocaine 5 % topical patch 1 patch topical DAILY #15 ea 12/05/24 methocarbamol 750 mg tablet 750 mg PO QID 10 days #40 tabs 12/05/24 Allergies Allergy/AdvReac Type Severity Reaction Status Date / Time ceftriaxone Allergy Severe Anaphylaxis Verified 12/05/24 08:21 [facility] Disclaimer: The information contained in this section may have been updated after the patient was seen, as this information can be updated by other users. Medical History Arteriovenous fistula of right upper extremity Diabetes Abnormal result of cardiovascular function study Typical angina Automatic implantable cardioverter-defibrillator in situ [facility]_11/23/2018 Chronic a-fib Surgical History History of cardiac cath Social History Smoking Status: Never smoker second hand exposure: No alcohol intake: never substance use type: other current occupational status: disabled Travel in the last 8 weeks: None household members: spouse housing: house current occupational exposures/hazards: No caffeine: No Have you lived/traveled outside US in past 30 days?: No Contact w/someone who lives/traveled outside US past 30 days?: No Exposure to someone with infectious disease in past 14 days?: No Do you have a fever (greater than 100.4 F or 38 C)?: No Have you tested positive for COVID-19: No Exposed to someone with COVID-19 in past 14 days?: No Do you have a sore throat?: No Do you have a cough?: No Do you have any weakness?: No Do you have any diarrhea?: No Are you experiencing any unusual bleeding?: No Do you have any muscle aches/pain?: No Do you have any abdominal pain?: No Are you experiencing loss of taste or smell?: No Other Medical History Have you received the Flu Vaccine for this season: No Have you received the Pneumonia Vaccine: Yes ROS Obtained: Yes All systems reviewed & no additional complaints except as documented Physical Exam General General appearance: alert and in no apparent distress Head Head exam: atraumatic, normocephalic and normal inspection Eye Eye exam: Present normal appearance, PERRL and EOMI ENT ENT exam: Present normal exam, normal oropharynx, mucous membranes moist, TM's normal bilaterally and normal external ear exam Neck Neck exam: Present normal inspection, full ROM and trachea midline; Absent meningismus or lymphadenopathy Chest Chest inspection: Present normal inspection and symmetric chest wall rise; Absent tenderness Respiratory Respiratory exam: Present normal lung sounds bilaterally; Absent respiratory distress Cardiovascular Cardiovascular exam: Present regular rate and normal rhythm; Absent JVD Abdominal Exam Abdominal exam: Present soft and normal bowel sounds; Absent distention, tenderness or guarding Extremities Exam Extremities exam: Present normal inspection, tenderness (Right lateral hip and right ASIS tenderness. No) and normal capillary refill; Absent full ROM or calf tenderness Back Exam Back exam: Present normal inspection; Absent tenderness Neurological Exam Neurological exam: Present alert and oriented X3 Psychiatric Psychiatric exam: Present normal affect and normal mood Skin Skin exam: Present warm, dry, intact and normal color Lymphatic Lymphatic Findings: no adenopathy Medical Decision Making Medical Records Medical records reviewed: Yes I reviewed the patient's medical records. Screening: Per USPSTF and CDC recommendations, given the prevalence of disease in our region, it is our hospital?s policy to screen for HIV and viral Hepatitis for all patients aged 18 and over and those with ongoing risk factors. Rudy Inquiry Pt receiving controlled substance: No Rudy was queried for this patient: No Vital Signs: 12/05/24 08:07 12/05/24 08:14 12/05/24 09:00 Temperature 98.2 F Temperature Source Oral Pulse Rate 63 68 Pulse Rate [Left Radial] 73 Respiratory Rate 16 Blood Pressure 107/74 L 97/70 L Blood Pressure [Right Arm] 107/74 L Blood Pressure Mean [Right Arm] 85 02 Sat by Pulse Oximetry 97 96 95 Oxygen Delivery Method Room Air Room Air Room Air 12/05/24 09:05 12/05/24 10:35 Temperature 98.1 F Temperature Source Pulse Rate 65 81 Pulse Rate [Left Radial] Respiratory Rate 18 Blood Pressure 108/71 L 108/71 L Blood Pressure [Right Arm] Blood Pressure Mean [Right Arm] 02 Sat by Pulse Oximetry 94 L Oxygen Delivery Method Room Air Orders (Tests/Meds): ED MEDICATIONS Discontinued Medications Generic Name Dose Route Start Last Admin Trade Name Freq PRN Reason Stop Dose Admin Lidocaine 1 each 12/05/24 08:43 12/05/24 09:03 Lidocaine 5% Transdermal Patch TP 12/05/24 08:44 1 each ONCE ONE Administration Methocarbamol 1,000 mg 12/05/24 08:44 12/05/24 09:03 Methocarbamol 500mg Tablet PO 12/05/24 08:45 1,000 mg ONCE ONE Administration Oxycodone HCl 10 mg 12/05/24 09:15 12/05/24 09:04 Oxycodone 5mg Immediate Release Tablet PO 12/05/24 09:16 10 mg ONCE ONE Administration ORDERS Category Date Time Status Femur XR right 2 views [XR femur RT 2V] Stat Exams 12/05/24 08:43 Completed XR hip RT 2-3V w/pelvis Stat Exams 12/05/24 08:43 Completed Medical Decision Narrative: In summary, this is a 74-year-old female with a history of ESRD on dialysis presenting with right hip pain. Differential diagnosis includes was not limited to, muscular injury, acute on chronic joint pain, fracture, dislocation, among others. Based on patient's pinpoint tenderness on the right lateral hip and ASIS, will perform pelvis x-ray, right hip x-ray and right femur x-ray. Patient will be medicated with Robaxin, lidocaine patch, oxycodone. XR imaging personally reviewed by me and negative for fracture or malalignment. At this time, it is felt the patient suffered a significant muscular strain based on symptoms and physical exam as well as negative XR. Patient able to ambulate with discomfort utilizing her walker which is her baseline. We discussed symptomatic treatment at home with muscle relaxers, Tylenol and lidocaine patch in addition to her home hydrocodone medication. We also discussed heat versus ice pack for additional symptom relief. Patient advised to follow-up with her PCP in the next few days. Patient and family in agreement with this plan. Patient discharged in stable condition. Renata Mejia MD Critical Care Critical Care Time Critical Care Time: No
[2024-12-05 09:00] VITALS: BP 97/70; PULSE 68; O2SAT 95
[2024-12-05] MEDS: LIDOCAINE 5% TRANSDERMAL PATCH 1 EACH TP (09:03)
[2024-12-05] MEDS: METHOCARBAMOL 500MG TABLET 1000 MG PO (09:03)
[2024-12-05] MEDS: OXYCODONE 5MG IMMEDIATE RELEASE TABLET 10 MG PO (09:04)
[2024-12-05 09:05] VITALS: BP 108/71; PULSE 65; O2SAT 94
--- NOTE | 2024-12-05 09:56 | PC.NURSE ---
pt ambulate in room with walker kiya just stated her right hip was sore and hurt to move and felt like a knot was on the side, she states she just woke up with it hurting i relayed what pt told me to er md at this time
[2024-12-05 10:35] VITALS: BP 108/71; PULSE 81; RESP 18; TEMP 36.7; O2SAT 94
== END 2024-12-05 10:36 | disposition home or self-care (01) ==
PROVIDERS: Emergency Provider Student in an Organized Health Care Education/Training Program; PCP Family Medicine
DX: M25.551 Pain in right hip (principal); N18.6 End stage renal disease; Z99.2 Dependence on renal dialysis
CPT/HCPCS: 73502; 73552; 99283

== ENCOUNTER 2024-12-07 22:04 | Emergency (ER) | payer MEDICARE, SELFPAY ==
--- NOTE | 2024-12-07 22:02 | ECG_ITS ---
APPROVED REPORT Exam: Resting ECG HR:71 bpm ECG Measurements Heart Rate 71 AXES MI 290 P -42 QRSd 132 QRS -68 QT 456 T 72 QTc 478 Conclusion ELECTRONIC ATRIAL PACEMAKER ELECTRONIC VENTRICULAR PACEMAKER ABNORMAL RHYTHM ECG UNCONFIRMED REPORT Electronically signed by : KENN CAZARES, 12/08/2024 04:38:02
[2024-12-07 22:04] VITALS: BP 94/63; PULSE 70; RESP 22; TEMP 36.8; O2SAT 96; BMI 29.9
--- NOTE | 2024-12-07 22:22 | ED_ITS ---
Discharge Plan Disposition Chief Complaint: Neck Pain/Injury Prescriptions Prescriptions: No Action atorvastatin 20 mg tablet 20 mg PO HS Qty: 30 5RF prednisone 10 mg tablet 5 mg PO DAILY acetaminophen [Tylenol] 325 mg capsule 325 mg PO QID PRN (Reason: Mild Pain) insulin aspart U-100 100 unit/mL (3 mL) insulin pen 4 unit SQ ACHS insulin glargine 100 unit/mL (3 mL) insulin pen 6 unit SQ DAILY melatonin 5 mg capsule 5 mg PO HS omeprazole 40 mg capsule,delayed release(DR/EC) 40 mg PO DAILY Patient Comments: TAKE 1 CAPSULE BY MOUTH ONCE DAILY. DO NOT CRUSH OR CHEW furosemide 80 mg tablet 80 mg PO BID Patient Comments: TAKE 1 TABLET BY MOUTH TWICE DAILY mupirocin 2 % ointment 1 applic topical BID 14 Days Qty: 15 0RF Kerasal Fungal Nail Renewal Solution 1 ml topical BID 28 Days Qty: 10 3RF bisoprolol fumarate 10 mg tablet 10 mg PO DAILY Qty: 31 11RF levofloxacin 500 mg tablet 500 mg PO DAILY 7 Days Qty: 7 0RF folic acid 1 MG tablet 1 mg PO DAILY lactulose 10 GM/15 ML solution 20 g PO TID sevelamer carbonate 800 MG tablet 1,600 mg PO TID rifaximin 550 mg tablet 550 mg PO BID albuterol sulfate 90 mcg/actuation HFA aerosol inhaler 4 inh inhalation Q4H PRN (Reason: shortness of breath or wheezing) Qty: 8.5 0RF Rx Instructions: 4 puffs every 4 hours for 48 hours then as needed for shortness of breath or wheezing following pantoprazole 40 mg tablet,delayed release (DR/EC) 40 mg PO BID Patient Comments: TAKE 1 TABLET BY MOUTH TWICE DAILY 30 MINUTES BEFORE BREAKFAST AND DINNER methocarbamol 750 mg tablet 750 mg PO QID 10 Days Qty: 40 0RF lidocaine 5 % adhesive patch,medicated 1 patch topical DAILY Qty: 15 0RF Rx Instructions: leave on most painful area for up to 12 hrs Referrals Follow up/Referrals: Aldo Juarez MD [Primary Care Provider] - See instructions Clinical Impressions Clinical Impression: Acute hypotension, Neck pain, Generalized weakness Instructions Patient Instructions: DI for Neck Pain Print Language Print Language: Lithuanian Discharge ED Provider: Bozena Ogden General Adult [facility] General Chief complaint: Neck Pain/Injury Stated complaint: neck pain Time Seen by Provider: 12/07/24 22:22 Mode of Arrival: EMS Source of Information: Patient Limitations: No Limitations Description of Symptoms (Recalled from ER Triage Doc. by RN): Patient to ED via [facility] with complaints of bilateral neck pain, right hip pain, hypotension, and generalized weakness. Patient is a dialysis patient and had treatment today. She states that she has had low blood pressure throughout dialysis, and at home. History of Present Illness HPI narrative: Patient is a 74-year-old female very well-known to this emergency department a history of end-stage renal disease on dialysis presenting today with primarily neck pain. This is her third visit to the ED this week with different musculoskeletal complaints. Today she states she is having bilateral trapezius pain. Denies any chest pain any worsening shortness of breath. She does states she has generalized weakness. Additionally she was hypotensive earlier today and was hypotensive prior to being dialyzed today and stated that they did not take anymore her last dialysate off and she did complete her dialysis. She has remained hypotensive. Normally she states her blood pressure is 120-130 range systolic however she has been running in the 70s 80s and 90s systolic. She denies any fevers. Denies any vomiting or diarrhea. Has not had any medications prior to arrival. States that her son made her come to the emergency department she did not particular want to be here today. Related Data Home Medications ?Medication ?Instructions ?Recorded ?Confirmed folic acid 1 mg tablet 1 mg PO DAILY Supplement 11/29/20 12/05/24 lactulose 10 gram/15 mL oral 20 g PO TID liver 11/29/20 12/05/24 solution sevelamer carbonate 800 mg tablet 1,600 mg PO TID Kidney failure 11/29/20 12/05/24 acetaminophen 325 mg capsule 325 mg PO QID PRN Mild Pain 03/23/21 12/05/24 (Tylenol) insulin aspart U-100 100 unit/mL 4 unit SQ ACHS Diabetes 03/23/21 12/05/24 (3 mL) subcutaneous pen insulin glargine 100 unit/mL (3 6 unit SQ DAILY Diabetes 03/23/21 12/05/24 mL) subcutaneous pen melatonin 5 mg capsule 5 mg PO HS Sleep 03/23/21 12/05/24 prednisone 10 mg tablet 5 mg PO DAILY . 03/23/21 12/05/24 rifaximin 550 mg tablet 550 mg PO BID unk 03/23/21 12/05/24 furosemide 80 mg tablet 80 mg PO BID Fluid 10/12/22 12/05/24 omeprazole 40 mg capsule,delayed 40 mg PO DAILY GERD 10/12/22 12/05/24 release pantoprazole 40 mg tablet,delayed 40 mg PO BID 09/11/23 12/05/24 release Previous Rx's ?Medication ?Instructions ?Recorded atorvastatin 20 mg tablet 20 mg PO HS Cholesterol #30 tabs 10/26/22 albuterol sulfate 90 mcg/actuation 4 inh inhalation Q4H PRN shortness 07/25/23 aerosol inhaler of breath or wheezing #8.5 grams bisoprolol fumarate 10 mg tablet 10 mg PO DAILY #31 tabs 09/18/23 mupirocin 2 % topical ointment 1 applic topical BID infection 14 11/27/24 days #15 grams urea-lactic acid-propylene glycol 1 ml topical BID 4 weeks #10 mL 11/27/24 topical solution (Kerasal Fungal Nail Renewal topical solution) levofloxacin 500 mg tablet 500 mg PO DAILY infection 7 days 12/02/24 #7 tabs lidocaine 5 % topical patch 1 patch topical DAILY #15 ea 12/05/24 methocarbamol 750 mg tablet 750 mg PO QID 10 days #40 tabs 12/05/24 Allergies Allergy/AdvReac Type Severity Reaction Status Date / Time ceftriaxone Allergy Severe Anaphylaxis Verified 12/05/24 08:21 [facility] Disclaimer: The information contained in this section may have been updated after the patient was seen, as this information can be updated by other users. Medical History Arteriovenous fistula of right upper extremity Diabetes Abnormal result of cardiovascular function study Typical angina Automatic implantable cardioverter-defibrillator in situ [facility]UDE_11/23/2018 Chronic a-fib Surgical History History of cardiac cath Social History Smoking Status: Smoker, status unknown second hand exposure: No alcohol intake: never substance use type: other current occupational status: disabled Travel in the last 8 weeks: None household members: spouse housing: house current occupational exposures/hazards: No caffeine: No Have you lived/traveled outside US in past 30 days?: No Contact w/someone who lives/traveled outside US past 30 days?: No Exposure to someone with infectious disease in past 14 days?: No Do you have a fever (greater than 100.4 F or 38 C)?: No Have you tested positive for COVID-19: No Exposed to someone with COVID-19 in past 14 days?: No Do you have a sore throat?: No Do you have a cough?: No Do you have any weakness?: No Do you have any diarrhea?: No Are you experiencing any unusual bleeding?: No Do you have any muscle aches/pain?: No Do you have any abdominal pain?: No Are you experiencing loss of taste or smell?: No Other Medical History Have you received the Flu Vaccine for this season: No Have you received the Pneumonia Vaccine: Yes ROS Obtained: Yes All systems reviewed & no additional complaints except as documented Physical Exam General General appearance: alert Neck Neck exam: Present other (Bilateral trapezius tenderness no midline spinal tenderness) Respiratory Respiratory exam: Present normal lung sounds bilaterally and respiratory distress Cardiovascular Cardiovascular exam: Present regular rate and normal rhythm Neurological Exam Neurological exam: Present alert and oriented X3 Medical Decision Making Medical Records Screening: Per USPSTF and CDC recommendations, given the prevalence of disease in our region, it is our hospital?s policy to screen for HIV and viral Hepatitis for all patients aged 18 and over and those with ongoing risk factors. Rudy Inquiry Pt receiving controlled substance: No Vital Signs: 12/07/24 22:04 Temperature 98.2 F Temperature Source Oral Pulse Rate [Right] 70 Respiratory Rate 22 Blood Pressure [Right Arm] 94/63 L Blood Pressure Mean [Right Arm] 73 Blood Pressure Position [Right Arm] Supine 02 Sat by Pulse Oximetry 96 Oxygen Delivery Method Nasal Cannula Oxygen Flow Rate (LPM) 2 Orders (Tests/Meds): ED MEDICATIONS Discontinued Medications Generic Name Dose Route Start Last Admin Trade Name Freq PRN Reason Stop Dose Admin Acetaminophen 1,000 mg 12/07/24 22:20 Acetaminophen 1,000mg/100ml Vial IV 12/07/24 22:21 ONCE ONE ORDERS Category Date Time Status POCUS Point of Care (ER Only) Stat Exams 12/07/24 22:19 Ordered BNP [NT Pro Brain Natriuretic Pep.] Stat Lab 12/07/24 22:19 Ordered CBC w/Auto Diff [Complete Blood Count Auto Diff] Stat Lab 12/07/24 22:18 Ordered CMP [Comprehensive Metabolic Panel] Stat Lab 12/07/24 22:18 Ordered Lactic Acid Stat Lab 12/07/24 22:20 Ordered Magnesium Stat Lab 12/07/24 22:19 Ordered Phosphorous Stat Lab 12/07/24 22:19 Ordered Trop I [Troponin I] Stat Lab 12/07/24 22:18 Ordered Troponin I Q3H Lab 12/08/24 01:30 Ordered Troponin I Q3H Lab 12/08/24 04:30 Ordered ECG Data Tracing #1: I reviewed this ECG and interpreted as documented below: Ventricular of 71 atrial and ventricularly paced appropriately Sgarbossa's negative cannot rule out ischemia Medical Decision Narrative: 74-year-old well-appearing presents today with primarily neck pain she has tenderness over the bilateral trapezius region which is most likely musculoskeletal. Will give her IV Tylenol. The reason that I am putting an IV in her at this moment is because she is significant hypotensive. On 3 assessment with an appropriate sized cuff and placement blood pressure had a systolic measurement in the 80s and 90s. She does have generalized weakness. She has no signs or symptoms of sepsis or shock. Possible that she is volume down particularly after recent dialysis. She does have known cardiac disease and has generalized weakness today additionally she could have worsening heart failure we will do a bedside salgado exam to rule out any obvious cause of her hypotension. I do not suspect that she is bleeding etc. Basic blood work is initiated she does not have any signs or symptoms of ischemia either. Labs pending care transition to Dr. Forman at 11 PM. Procedures Miscellaneous Procedure Procedure Performed: Limited salgado ultrasound Indication hypotension Cardiac ultrasound in addition to fast ultrasound were performed no intra- abdominal fluid noted no pneumothorax no decreased EF no pericardial effusion overall negative salgado ultrasound images were saved. Critical Care Critical Care Time Critical Care Time: No
[2024-12-07 23:44] LABS: Basophils % 0.3 % (0.1-2.0); Eosinophils % 0.3 % (0.1-12.0); Hematocrit 24.7 % (37.0-47.0); Hemoglobin 7.5 g/dL (12.2-16.2); Lymphocytes # 0.9 K/mm3 (0.7-4.5); Lymphocytes % 8.2 % (10-50); Mean Corpuscular HGB Conc 30.4 g/dL (31.8-35.4); Mean Corpuscular Hemoglobin 29.4 pg (27.0-31.2); Mean Corpuscular Volume 96.9 fl (81-99); Mean Platelet Volume 9.9 fl (7.4-10.4); Monocytes # 1.1 K/mm3 (0.1-1.0); Monocytes % 10.4 % (1.7-9.3); Neutrophils # 8.5 K/mm3 (1.8-7.8); Neutrophils % 80.2 % (37.0-80.0); Platelet Count 246 K/mm3 (142-424); Red Blood Count 2.55 M/mm3 (4.20-5.40); Red Cell Distribution Width 17.8 % (11.5-17.5); White Blood Count 10.6 K/mm3 (4.8-10.8)
[2024-12-07 23:52] LABS: Magnesium 2.5 mg/dl (1.6-2.3); Phosphorous 3.4 mg/dl (2.5-4.5)
[2024-12-07] MEDS: ACETAMINOPHEN 1,000MG/100ML VIAL 1000 MG IV (23:52)
[2024-12-07 23:59] VITALS: BP 101/65; PULSE 69; RESP 15; O2SAT 100
[2024-12-08] VITALS (24 sets, daily range): BP systolic 74–131; BP diastolic 37–72; PULSE 70–89; RESP 13–23; TEMP 36.8; O2SAT 64–100
[2024-12-08 00:26] LABS: Alanine Aminotransferase 17 U/L (12-78); Albumin Level 3.3 g/dl (3.5-5.0); Albumin/Globulin Ratio 1.2 (1.1-1.8); Alkaline Phosphatase 113 U/L (38-126); Anion Gap 10.3 mEq/L (5-15); Aspartate Amino Transferase 20 U/L (14-36); Blood Urea Nitrogen 30 mg/dl (7-17); Calcium 7.6 mg/dl (8.4-10.2); Carbon Dioxide 33 mmol/L (22.0-30.0); Chloride 93 mmol/L (98-107); Creatinine Clearance Estimated 15 mL/min (50-200); Estimated Glomerular Filt Rate 10 ml/min (>60); GFR (African American) 12 ML/MIN (>60); Globulin 2.7 g/dL (1.3-3.2); Glucose 93 mg/dl (74-100); Potassium 5.3 mmoL/L (3.5-5.1); Sodium 131 mmol/L (136-145)
[2024-12-08] MEDS: METHOCARBAMOL 500MG TABLET 500 MG PO (00:27)
[2024-12-08] MEDS: ONDANSETRON 4MG/2ML VIAL 4 MG IV (00:27)
[2024-12-08 00:41] LABS: Troponin I 0.01 ng/ml (0.00-0.034)
[2024-12-08 00:55] LABS: NT Pro Brain Natriuretic Pep. 45900 pg/mL (0-125)
[2024-12-08] MEDS: FAMOTIDINE 20MG/2ML VIAL 20 MG IV (01:10)
[2024-12-08] MEDS: BELLADONNA ALKALOIDS 60 ML ML PO (01:10)
--- NOTE | 2024-12-08 01:45 | PC.NURSE ---
Patient is discharged at this time per provider. Patient states that she does not have a ride home due to everyone sleeping, but should be able to get transportation closer to 0700. Patient provided with a warm blanket and water per request. Positioned to comfort. No further complaints or needs.
--- NOTE | 2024-12-08 02:44 | PC.NURSE ---
Patient asleep at this time. Respirations even and unlabored.
--- NOTE | 2024-12-08 03:30 | PC.NURSE ---
Patient resting with eyes closed at this time. Respirations even and unlabored.
--- NOTE | 2024-12-08 04:30 | PC.NURSE ---
Patient awake and asking to use the restroom. Patient assist x2 to [facility]. Patient unable to make any urine, and assisted back to bed with GILBERTO and gage Mejia. Patient became extremely dizzy and stated that she was going to pass out. Patient assisted back to bed, and placed back on monitoring. Patient hypotensive, and complains of epigastric pain. MD aware. 500ml bolus ordered along with bloodwork.
--- NOTE | 2024-12-08 04:31 | PC.NURSE ---
Patient resting with eyes closed at this time. Respirations even and unlabored.
[2024-12-08 06:00] LABS: Basophils % 0.3 % (0.1-2.0); Eosinophils % 0.4 % (0.1-12.0); Hematocrit 24.2 % (37.0-47.0); Hemoglobin 7.4 g/dL (12.2-16.2); Lymphocytes # 0.8 K/mm3 (0.7-4.5); Lymphocytes % 10.4 % (10-50); Mean Corpuscular HGB Conc 30.6 g/dL (31.8-35.4); Mean Corpuscular Hemoglobin 29.5 pg (27.0-31.2); Mean Corpuscular Volume 96.4 fl (81-99); Mean Platelet Volume 9.5 fl (7.4-10.4); Monocytes # 0.9 K/mm3 (0.1-1.0); Monocytes % 11.6 % (1.7-9.3); Neutrophils # 5.9 K/mm3 (1.8-7.8); Neutrophils % 76.9 % (37.0-80.0); Platelet Count 216 K/mm3 (142-424); Red Blood Count 2.51 M/mm3 (4.20-5.40); Red Cell Distribution Width 17.6 % (11.5-17.5); White Blood Count 7.7 K/mm3 (4.8-10.8)
--- NOTE | 2024-12-08 06:00 | CT_ITS ---
PROCEDURE INFORMATION: Exam: CTA Chest With Contrast Exam date and time: 12/08/2024 6:28 AM Age: 74 years old Clinical indication: Other: Back pain; Additional info: Cp/back pain hypotension TECHNIQUE: Imaging protocol: Computed tomographic angiography of the chest with contrast. Exam focused on the arteries. 3D rendering (Not supervised by radiologist): MIP and/or 3D reconstructed images were created by the technologist. Radiation optimization: All CT scans at this facility use at least one of these dose optimization techniques: automated exposure control; mA and/or kV adjustment per patient size (includes targeted exams where dose is matched to clinical indication); or iterative reconstruction. Contrast material: ISOVUE; Contrast volume: 120 ml; Contrast route: INTRAVENOUS (IV); COMPARISON: CT ANGIO CHEST PE PROTOCOL 04/08/2024 5:20 PM FINDINGS: Tubes, catheters and devices: Transvenous pacemaker leads in the heart Pulmonary arteries: No evidence of pulmonary embolus in the main pulmonary arteries. Aorta: No aneurysm of the aorta. No dissection of the aorta. Lungs: Ground-glass opacities in the lower lobes may represent atelectasis or pneumonia. 10 mm ground-glass nodule in the right upper lobe (series 11, image 26, 27). Pleural spaces: Mild bilateral pleural effusions.. Heart: Cardiomegaly. There is calcification of the aortic valve annulus. There is calcification of the mitral valve annulus. Enlarged left atrium 10 x 6 cm. Coronary arteries: Coronary artery calcifications may indicate coronary artery disease. Lymph nodes: Unremarkable. No enlarged lymph nodes. Diaphragm: Moderate hiatal hernia measures 7 x 5 cm. Bones/joints: Unremarkable. No acute fracture. Soft tissues: Unremarkable. IMPRESSION: 1. No evidence of pulmonary embolus in the main pulmonary arteries. 2. No aneurysm of the aorta. 3. No dissection of the aorta. 4. Moderate hiatal hernia measures 7 x 5 cm. 5. Enlarged left atrium 10 x 6 cm. 6. Ground-glass opacities in the lower lobes may represent atelectasis or pneumonia. 7. Mild bilateral pleural effusions.. 8. 10 mm ground-glass nodule in the right upper lobe (series 11, image 26, 27).Recommend CT Chest at 6-12 months to confirm persistence of the nodule, then CT Chest at 3 years and 5 years. (Reference: Krista) References: Krista Mercado et al. Guidelines for Management of Incidental Pulmonary Nodules Detected on CT Images: From the Fleischner Society 2017. Radiology. 2017;284(1):228-243.
--- NOTE | 2024-12-08 06:00 | CT_ITS ---
PROCEDURE INFORMATION: Exam: CTA Abdomen and Pelvis With Contrast Exam date and time: 12/08/2024 6:28 AM Age: 74 years old Clinical indication: Other: Epigastric abd pain, anemia TECHNIQUE: Imaging protocol: Computed tomographic angiography of the abdomen and pelvis with contrast. Exam focused on the arteries. 3D rendering (Not supervised by radiologist): MIP and/or 3D reconstructed images were created by the technologist. Radiation optimization: All CT scans at this facility use at least one of these dose optimization techniques: automated exposure control; mA and/or kV adjustment per patient size (includes targeted exams where dose is matched to clinical indication); or iterative reconstruction. Contrast material: ISOVUE; Contrast volume: 80 ml; Contrast route: INTRAVENOUS (IV); COMPARISON: CT ABDOMEN PELVIS WO CON 02/19/2022 4:34 AM FINDINGS: Aorta: No aortic aneurysm. No aortic dissection. Celiac trunk and mesenteric arteries: Stenosis at the origin of the celiac artery Renal arteries: No occlusion or significant stenosis. Right iliac arteries: No occlusion or significant stenosis. Left iliac arteries: No occlusion or significant stenosis. Liver: Stable calcific densities in the inferior right lobe of the liver. Lobulated liver consistent with cirrhosis Gallbladder and biliary ducts: Unremarkable. No calcified stones. No ductal dilation. Pancreas: Unremarkable. No mass. No ductal dilation. Spleen: Unremarkable. No splenomegaly. Adrenal glands: Unremarkable. No mass. Kidneys and ureters: Punctate nonobstructing right renal calculus. No ureteral calculus Stomach and bowel: Unremarkable. No obstruction. No mucosal thickening. Appendix: No evidence of appendicitis. Intraperitoneal space: Unremarkable. No free air. No significant fluid collection. Lymph nodes: Unremarkable. No enlarged lymph nodes. Urinary bladder: Unremarkable. No mass. Reproductive: Unremarkable as visualized. Bones/joints: No acute fracture. Soft tissues: Prominent muscle lateral to the right hip. It measures 8.5 x 5.4 x 11 cm. (series 5 image [id number] There are surrounding inflammatory changes. This most likely represents intramuscular hemorrhage/hematoma. . IMPRESSION: Prominent muscle lateral to the right hip. It measures 8.5 x 5.4 x 11 cm. (series 5 image [id number] There are surrounding inflammatory changes. This most likely represents intramuscular hemorrhage/hematoma. . THIS REPORT CONTAINS FINDINGS THAT MAY BE CRITICAL TO PATIENT CARE. The findings were verbally communicated via telephone conference with Dr.J Luis Us at 8:54 AM EST on 12/08/2024. The findings were acknowledged and understood.
[2024-12-08 06:10] LABS: Activated Partial Thrombo Time 36.4 seconds (22.5-28.5); INR 1.35 (0.9-1.1); Prothrombin Time 14.4 seconds (9.2-12.1)
--- NOTE | 2024-12-08 06:20 | PC.NURSE ---
Patient to CT
[2024-12-08] MEDS: 0.9 % SODIUM CHLORIDE 1000ML 1,000 ML 999 ML IV (06:27)
[2024-12-08] MEDS: SODIUM CHLORIDE 0.9% 10ML SYR (RAD ONLY) 10 ML IV (06:50)
[2024-12-08] MEDS: 0.9 % SODIUM CHLORIDE 50 ML VIAL IV (06:50)
[2024-12-08] MEDS: IOPAMIDOL-370 (76%);100ML BOTTLE 120 ML IV (06:50)
[2024-12-08 07:03] LABS: Lactate Venous 1.4 mmol/L (0.4-2.0); VBG Base Excess 4.5 mmol/L (-2.4-2.3); VBG HCO3 29.6 mmol/L (23-30); VBG Oxygen Saturation 94.8 % (50-70); VBG PH 7.38 mmol/L (7.31-7.41); VBG PO2 76.3 mmol/L (28-40); VBG Total CO2 31.2 mmol/L (23-27)
[2024-12-08 07:04] LABS: VBG PCO2 51.3 mmol/L (35-51)
--- NOTE | 2024-12-08 07:19 | PC.NURSE ---
Called dietary for breakfast tray.
--- NOTE | 2024-12-08 07:39 | PC.NURSE ---
ROUNDED ON THE PT. THE PT VOICES THAT SHE DOES NOT NEED ANYTHING AT THIS TIME. CALL LIGHT IS WITHIN REACH OF THE PT. PT WAS GIVEN A BREAKFAST TRAY.
--- NOTE | 2024-12-08 08:29 | PC.NURSE ---
ROUNDED ON THE PT. THE PT VOICES THAT SHE DOES NOT NEED ANYTHING AT THIS TIME. CALL LIGHT IS WITHIN REACH OF THE PT.
--- NOTE | 2024-12-08 08:51 | PC.NURSE ---
Dr. Us is s/w [facility] with critical findings
--- NOTE | 2024-12-08 09:00 | PC.NURSE ---
CALLED [facility] PER DR. DELUCA FOR POSS TRANSFER FOR THIGH HEMATOMA. STATED THAT THEY WOULD GIVE US A CALL BACK.
--- NOTE | 2024-12-08 09:06 | PC.NURSE ---
[facility]
--- NOTE | 2024-12-08 09:30 | P.EN_ITS ---
Due to [employer] difficulties this event note should be attached to the original ED note. Workup reviewed by me, patient has anemia that is 3 point below her baseline of undetermined etiology, compensated acid-base status evidence of CKD for which she is dialysis dependent without critical electrolyte abnormality. CTAs conducted prior to my assumption of care. Patient has had tenuous blood pressure that has gone 500 cc crystalloid with good response blood pressure now 101/56. I had an interactive discussion with radiology there is a prominent muscle hematoma 8.5 x 5.4 x 11 cm in the right hip, there is no active extravasation on my informal interpretation. I went to talk to the patient about this as she has not told anybody about it prior to me asking but she did (twisted her hip) on her walker on and has had acute functional decline since. Her soft blood pressure is likely multifactorial and due to her recent dialysis however blood loss in her hip could also be contributing some. Given dialysis dependent for which we do not have at this institution, need for multifactorial care and acute functional decline in the setting of a hip hematoma the case was discussed with [facility] Dr. Hallman and Dr. Escalante regarding management and they graciously excepted patient for transfer for continued evaluation at this time.
--- NOTE | 2024-12-08 09:34 | PC.NURSE ---
Gave report to LEONARD Gallo @ [facility]
--- NOTE | 2024-12-08 09:42 | PC.NURSE ---
Pt and family updated on expected wait time for ambulance to transfer to [facility] as EMS is currently transporting another pt out or the [place].
--- NOTE | 2024-12-08 09:46 | PC.NURSE ---
ROUNDED ON THE PT. THE PT VOICES THAT SHE DOES NOT NEED ANYTHING AT THIS TIME. CALL LIGHT IS WITHIN REACH OF THE PT. SON IS PRESENT AT THE BEDSIDE.
--- NOTE | 2024-12-08 10:44 | PC.NURSE ---
ROUNDED ON THE PT. THE PT VOICES THAT SHE DOES NOT NEED ANYTHING AT THIS TIME. CALL LIGHT IS WITHIN REACH OF THE PT. FAMILY MEMEBRS ARE PRESENT AT THE BEDSIDE.
--- NOTE | 2024-12-08 11:27 | PC.NURSE ---
ROUNDED ON THE PT. THE PT VOICES THAT SHE DOES NOT NEED ANYTHING AT THIS TIME. CALL LIGHT IS WITHIN REACH OF THE PT. FAMILY MEMBERS ARE PRESENT AT THE BEDSIDE.
== END 2024-12-08 12:02 | disposition short-term general hospital (02) ==
PROVIDERS: Student in an Organized Health Care Education/Training Program; Emergency Provider Emergency Medicine; PCP Family Medicine
DX: D64.9 Anemia, unspecified (principal); S70.11XA Contusion of right thigh, initial encounter; M54.2 Cervicalgia; M25.551 Pain in right hip; R53.1 Weakness; I95.9 Hypotension, unspecified; N18.9 Chronic kidney disease, unspecified; Z79.01 Long term (current) use of anticoagulants; Z99.2 Dependence on renal dialysis; Z72.0 Tobacco use
CPT/HCPCS: 71275; 74174; 80053; 82803; 83735; 83880; 84100; 84484; 85025; 85610; 85730; 87040; 93005; 96361; 96374; 96375; 99285; J0131; J2405; J7030; Q9967; S0028

== ENCOUNTER 2025-01-03 11:03 | Emergency (ER) | payer MEDICARE, SELFPAY ==
[2025-01-03] VITALS (7 sets, daily range): BP systolic 126–140; BP diastolic 71–87; PULSE 68–110; RESP 16; TEMP 36.6; O2SAT 67–98; BMI 31.4
--- NOTE | 2025-01-03 11:58 | HMH.EDGENADL ---
Discharge Plan Disposition Patient Disposition: Home, Self-Care Condition: Fair Prescriptions Prescriptions: New doxycycline hyclate 100 mg capsule 100 mg PO BID 10 Days Qty: 20 0RF levofloxacin 250 mg tablet 250 mg PO .Every 48 hours Qty: 7 0RF No Action atorvastatin 20 mg tablet 20 mg PO HS Qty: 30 5RF prednisone 10 mg tablet 5 mg PO DAILY acetaminophen [Tylenol] 325 mg capsule 325 mg PO QID PRN (Reason: Mild Pain) insulin aspart U-100 100 unit/mL (3 mL) insulin pen 4 unit SQ ACHS insulin glargine 100 unit/mL (3 mL) insulin pen 6 unit SQ DAILY melatonin 5 mg capsule 5 mg PO HS omeprazole 40 mg capsule,delayed release(DR/EC) 40 mg PO DAILY Patient Comments: TAKE 1 CAPSULE BY MOUTH ONCE DAILY. DO NOT CRUSH OR CHEW furosemide 80 mg tablet 80 mg PO BID Patient Comments: TAKE 1 TABLET BY MOUTH TWICE DAILY mupirocin 2 % ointment 1 applic topical BID 14 Days Qty: 15 0RF Kerasal Fungal Nail Renewal Solution 1 ml topical BID 28 Days Qty: 10 3RF bisoprolol fumarate 10 mg tablet 10 mg PO DAILY Qty: 31 11RF levofloxacin 500 mg tablet 500 mg PO DAILY 7 Days Qty: 7 0RF Clenpiq 10 mg-3.5 gram- 12 gram/175 mL solution 175 ml PO DAILY Qty: 350 0RF Rx Instructions: take first dose at 5-9PM evening before colonoscopy; 2nd dose the next day approximately 5 hrs before colonoscopy folic acid 1 MG tablet 1 mg PO DAILY lactulose 10 GM/15 ML solution 20 g PO TID sevelamer carbonate 800 MG tablet 1,600 mg PO TID rifaximin 550 mg tablet 550 mg PO BID albuterol sulfate 90 mcg/actuation HFA aerosol inhaler 4 inh inhalation Q4H PRN (Reason: shortness of breath or wheezing) Qty: 8.5 0RF Rx Instructions: 4 puffs every 4 hours for 48 hours then as needed for shortness of breath or wheezing following pantoprazole 40 mg tablet,delayed release (DR/EC) 40 mg PO BID Patient Comments: TAKE 1 TABLET BY MOUTH TWICE DAILY 30 MINUTES BEFORE BREAKFAST AND DINNER methocarbamol 750 mg tablet 750 mg PO QID 10 Days Qty: 40 0RF lidocaine 5 % adhesive patch,medicated 1 patch topical DAILY Qty: 15 0RF Rx Instructions: leave on most painful area for up to 12 hrs Referrals Follow up/Referrals: Aldo Juarez MD [Primary Care Provider] - See instructions Activity Restrictions/Add. Instructions Additional Instructions/Restrictions: Please do not cover your wound with any occlusive dressing. Vascular surgery will call you and schedule your follow-up appointment. We have sent antibiotics into your pharmacy. Please take them till they are gone. If you have any new or worsening signs or symptoms please contact the vascular surgery team at the [facility] or return to the ER as needed. Clinical Impressions Clinical Impression: Postoperative wound infection Print Language Print Language: Romanian Discharge ED Provider: Kimberley Haney General Adult HPI <LAURA Desai - Last Filed: 01/03/25 14:13> General Chief complaint: Recheck/Abnormal Lab/Rx Stated complaint: poss infection surgery site-Left foot Time Seen by Provider: 01/03/25 11:58 Mode of Arrival: Wheelchair Source of Information: Patient Description of Symptoms (Recalled from ER Triage Doc. by RN): Patient reports having a toe amputated approx 2 weeks ago on the left foot. Reports that the toe is bleeding and the stitches have come undone. History of Present Illness HPI narrative: Patient presents for evaluation of a postoperative wound infection. Patient had a amputation done of her fourth left toe by vascular surgery at [facility] on 12/23/2024. Patient reports that yesterday the wound popped open . She denies any fever chills hemoptysis hematochezia melena nausea vomiting diarrhea. She reports that it hurts. Related Data Home Medications ?Medication ?Instructions ?Recorded ?Confirmed folic acid 1 mg tablet 1 mg PO DAILY Supplement 11/29/20 12/08/24 lactulose 10 gram/15 mL oral 20 g PO TID liver 11/29/20 12/08/24 solution sevelamer carbonate 800 mg tablet 1,600 mg PO TID Kidney failure 11/29/20 12/08/24 acetaminophen 325 mg capsule 325 mg PO QID PRN Mild Pain 03/23/21 12/08/24 (Tylenol) insulin aspart U-100 100 unit/mL 4 unit SQ ACHS Diabetes 03/23/21 12/08/24 (3 mL) subcutaneous pen insulin glargine 100 unit/mL (3 6 unit SQ DAILY Diabetes 03/23/21 12/08/24 mL) subcutaneous pen melatonin 5 mg capsule 5 mg PO HS Sleep 03/23/21 12/08/24 prednisone 10 mg tablet 5 mg PO DAILY . 03/23/21 12/08/24 rifaximin 550 mg tablet 550 mg PO BID unk 03/23/21 12/08/24 furosemide 80 mg tablet 80 mg PO BID Fluid 10/12/22 12/08/24 omeprazole 40 mg capsule,delayed 40 mg PO DAILY GERD 10/12/22 12/08/24 release pantoprazole 40 mg tablet,delayed 40 mg PO BID 09/11/23 12/08/24 release Previous Rx's ?Medication ?Instructions ?Recorded atorvastatin 20 mg tablet 20 mg PO HS Cholesterol #30 tabs 10/26/22 albuterol sulfate 90 mcg/actuation 4 inh inhalation Q4H PRN shortness 07/25/23 aerosol inhaler of breath or wheezing #8.5 grams bisoprolol fumarate 10 mg tablet 10 mg PO DAILY #31 tabs 09/18/23 mupirocin 2 % topical ointment 1 applic topical BID infection 14 11/27/24 days #15 grams urea-lactic acid-propylene glycol 1 ml topical BID 4 weeks #10 mL 11/27/24 topical solution (Kerasal Fungal Nail Renewal topical solution) levofloxacin 500 mg tablet 500 mg PO DAILY infection 7 days 12/02/24 #7 tabs lidocaine 5 % topical patch 1 patch topical DAILY #15 ea 12/05/24 methocarbamol 750 mg tablet 750 mg PO QID 10 days #40 tabs 12/05/24 sod picosulf 10 mg-magnes 3.5 175 ml PO DAILY 2 doses #350 mL 12/27/24 gram-citric 12 gram/175 mL oral solution (Clenpiq) doxycycline hyclate 100 mg capsule 100 mg PO BID 10 days #20 caps 01/03/25 levofloxacin 250 mg tablet 250 mg PO .Every 48 hours #7 tabs 01/03/25 Allergies Allergy/AdvReac Type Severity Reaction Status Date / Time ceftriaxone Allergy Severe Anaphylaxis Verified 12/05/24 08:21 [facility] <LAURA Desai - Last Filed: 01/03/25 14:13> [facility] Disclaimer: The information contained in this section may have been updated after the patient was seen, as this information can be updated by other users. Medical History Arteriovenous fistula of right upper extremity Diabetes Abnormal result of cardiovascular function study Typical angina Automatic implantable cardioverter-defibrillator in situ [id number]_11/23/2018 Chronic a-fib Surgical History History of cardiac cath Social History Smoking Status: Never smoker second hand exposure: No alcohol intake: never substance use type: other current occupational status: disabled Travel in the last 8 weeks: None household members: spouse housing: house current occupational exposures/hazards: No caffeine: No Have you lived/traveled outside [place] in past 30 days?: No Contact w/someone who lives/traveled outside [place] past 30 days?: No Exposure to someone with infectious disease in past 14 days?: No Do you have a fever (greater than 100.4 F or 38 C)?: No Have you tested positive for COVID-19: No Exposed to someone with COVID-19 in past 14 days?: No Do you have a sore throat?: No Do you have a cough?: No Do you have any weakness?: No Do you have any diarrhea?: No Are you experiencing any unusual bleeding?: No Do you have any muscle aches/pain?: No Do you have any abdominal pain?: No Are you experiencing loss of taste or smell?: No Other Medical History Have you received the Flu Vaccine for this season: No Have you received the Pneumonia Vaccine: Yes <LAURA Desai - Last Filed: 01/03/25 14:13> ROS Obtained: Yes Systems reviewed as appropriate & no additional complaints except as documented Physical Exam <LAURA Desai - Last Filed: 01/03/25 14:13> General General appearance: alert and in no apparent distress Respiratory Respiratory exam: Present wheezes; Absent normal lung sounds bilaterally Cardiovascular Cardiovascular exam: Present regular rate Neurological Exam Neurological exam: Present alert and oriented X3 Medical Decision Making <LAURA Desai - Last Filed: 01/03/25 14:13> Medical Records Medical records reviewed: Yes I reviewed the patient's medical records. Screening: Per USPSTF and CDC recommendations, given the prevalence of disease in our region, it is our hospital?s policy to screen for HIV and viral Hepatitis for all patients aged 18 and over and those with ongoing risk factors. Rudy Inquiry Pt receiving controlled substance: No Vital Signs: 01/03/25 11:17 01/03/25 11:20 01/03/25 11:31 Temperature 97.8 F Temperature Source Oral Pulse Rate 110 H 78 Pulse Rate [Radial] 68 Respiratory Rate 16 Blood Pressure 126/71 134/87 Blood Pressure [Left Arm] 126/71 Blood Pressure Mean 89 102 Blood Pressure Mean [Left Arm] 89 Blood Pressure Source Blood Pressure Source [Left Arm] Automatic Cuff Blood Pressure Position Blood Pressure Position [Left Arm] Sitting 02 Sat by Pulse Oximetry 86 L 86 L 78 L Oxygen Delivery Method Room Air Oxygen Flow Rate (LPM) 01/03/25 11:45 01/03/25 12:02 01/03/25 12:16 Temperature Temperature Source Pulse Rate 71 81 84 Pulse Rate [Radial] Respiratory Rate Blood Pressure 133/74 137/82 138/84 Blood Pressure [Left Arm] Blood Pressure Mean 93 99 104 Blood Pressure Mean [Left Arm] Blood Pressure Source Blood Pressure Source [Left Arm] Blood Pressure Position Blood Pressure Position [Left Arm] 02 Sat by Pulse Oximetry 79 L 71 L 67 L Oxygen Delivery Method Oxygen Flow Rate (LPM) 01/03/25 14:35 01/03/25 14:35 Temperature 97.8 F 97.8 F Temperature Source Oral Oral Pulse Rate 88 Pulse Rate [Radial] 88 Respiratory Rate 16 16 Blood Pressure 140/80 Blood Pressure [Left Arm] 140/80 Blood Pressure Mean Blood Pressure Mean [Left Arm] 100 Blood Pressure Source Automatic Cuff Blood Pressure Source [Left Arm] Automatic Cuff Blood Pressure Position Sitting Blood Pressure Position [Left Arm] Sitting 02 Sat by Pulse Oximetry 98 Oxygen Delivery Method Nasal Cannula Nasal Cannula Oxygen Flow Rate (LPM) 2 2 Lab Data Lab results reviewed: Yes I reviewed the patient's lab results. Lab Results 01/03/25 12:59: WBC 5.7, RBC 2.74 L, Hgb 8.3 L, Hct 26.6 L, MCV 97.1, MCH 30.3, MCHC 31.2 L, RDW 19.4 H, Plt Count 187, MPV 10.0, Neut % (Auto) 75.8, Lymph % (Auto) 10.0, Edwards % (Auto) 12.6 H, Eos % (Auto) 0.7, Baso % (Auto) 0.4, Neut # (Auto) 4.3, Lymph # (Auto) 0.6 L, Edwards # (Auto) 0.7, Eos # (Auto) 0.0, Baso # (Auto) 0.0, Sodium 134 L, Potassium 3.7, Chloride 96 L, Carbon Dioxide 32 H, Anion Gap 9.7, BUN 12, Creatinine 3.10 H, Estimated Creat Clear 22, Estimated GFR 15 L*, Est GFR ( Amer) 18 L*, Glucose 103 H, Calcium 7.8 L, Total Bilirubin 2.3 H, AST 32, ALT 23, Alkaline Phosphatase 165 H, Total Protein 6.5, Albumin 3.9, Globulin 2.6, Albumin/Globulin Ratio 1.5, Procalcitonin 0.753 01/03/25 12:59 01/03/25 12:59 Orders (Tests/Meds): ORDERS Category Date Time Status CBC w/Auto Diff [Complete Blood Count Auto Diff] Stat Lab 01/03/25 12:59 Completed CMP [Comprehensive Metabolic Panel] Stat Lab 01/03/25 12:59 Completed Procalcitonin Stat Lab 01/03/25 12:59 Completed Wound Culture and Gram Stain Stat Micro 01/03/25 12:12 Results Medical Decision Narrative: In summary patient is a 74-year-old female who presents to the emergency department for evaluation of postoperative wound infection. Patient is hemodynamically stable upon arrival, afebrile. Physical exam is remarkable for wound dehiscence at her surgical site at the fourth toe of the left foot. There is fibrinous purulent and necrotic looking tissue. There is no edema erythema or fluctuance noted. Probed with a wound culture does not penetrate deeper than the superficial surfaces.. Differential diagnosis includes wound dehiscence versus deep space infection. Initial workup will be conducted with hematologic labs and wound culture. Initial interventions deferred until consultation with vascular surgery at [facility]. Given that I had a consultation with the vascular surgery inventory control clerk surgeon regarding their patient presentation and management. They offered to take the patient in transfer but also felt patient could be appropriate for oral medication and follow-up next week in the vascular surgery clinic depending on patient discretion. As patient has no findings of systemic infection and appears to be localized and on exam with the culture tip wound appears to be only superficially infected for now oral antibiotics with strict return precautions would be reasonable. We had a shared decision-making discussion with the patient regarding her VELASQUEZ findings and recommendations and via patient directed decision making she is comfortable going home with oral antibiotics. To that end she will be prescribed Levaquin due to an allergy of cephalosporins and doxycycline. Vascular surgery at the [facility] will contact her to schedule her follow-up appointment early next week. Patient given strict return precautions and advised to either go directly to the [facility] if she has worsening signs or symptoms or return to the ER as needed. <Kimberley Hnaey MD - Last Filed: 01/03/25 15:41> Vital Signs: 01/03/25 11:17 01/03/25 11:20 01/03/25 11:31 Temperature 97.8 F Temperature Source Oral Pulse Rate 110 H 78 Pulse Rate [Radial] 68 Respiratory Rate 16 Blood Pressure 126/71 134/87 Blood Pressure [Left Arm] 126/71 Blood Pressure Mean 89 102 Blood Pressure Mean [Left Arm] 89 Blood Pressure Source Blood Pressure Source [Left Arm] Automatic Cuff Blood Pressure Position Blood Pressure Position [Left Arm] Sitting 02 Sat by Pulse Oximetry 86 L 86 L 78 L Oxygen Delivery Method Room Air Oxygen Flow Rate (LPM) 01/03/25 11:45 01/03/25 12:02 01/03/25 12:16 Temperature Temperature Source Pulse Rate 71 81 84 Pulse Rate [Radial] Respiratory Rate Blood Pressure 133/74 137/82 138/84 Blood Pressure [Left Arm] Blood Pressure Mean 93 99 104 Blood Pressure Mean [Left Arm] Blood Pressure Source Blood Pressure Source [Left Arm] Blood Pressure Position Blood Pressure Position [Left Arm] 02 Sat by Pulse Oximetry 79 L 71 L 67 L Oxygen Delivery Method Oxygen Flow Rate (LPM) 01/03/25 14:35 01/03/25 14:35 Temperature 97.8 F 97.8 F Temperature Source Oral Oral Pulse Rate 88 Pulse Rate [Radial] 88 Respiratory Rate 16 16 Blood Pressure 140/80 Blood Pressure [Left Arm] 140/80 Blood Pressure Mean Blood Pressure Mean [Left Arm] 100 Blood Pressure Source Automatic Cuff Blood Pressure Source [Left Arm] Automatic Cuff Blood Pressure Position Sitting Blood Pressure Position [Left Arm] Sitting 02 Sat by Pulse Oximetry 98 Oxygen Delivery Method Nasal Cannula Nasal Cannula Oxygen Flow Rate (LPM) 2 2 Lab Data Lab Results 01/03/25 12:59: WBC 5.7, RBC 2.74 L, Hgb 8.3 L, Hct 26.6 L, MCV 97.1, MCH 30.3, MCHC 31.2 L, RDW 19.4 H, Plt Count 187, MPV 10.0, Neut % (Auto) 75.8, Lymph % (Auto) 10.0, Edwards % (Auto) 12.6 H, Eos % (Auto) 0.7, Baso % (Auto) 0.4, Neut # (Auto) 4.3, Lymph # (Auto) 0.6 L, Edwards # (Auto) 0.7, Eos # (Auto) 0.0, Baso # (Auto) 0.0, Sodium 134 L, Potassium 3.7, Chloride 96 L, Carbon Dioxide 32 H, Anion Gap 9.7, BUN 12, Creatinine 3.10 H, Estimated Creat Clear 22, Estimated GFR 15 L*, Est GFR ( Amer) 18 L*, Glucose 103 H, Calcium 7.8 L, Total Bilirubin 2.3 H, AST 32, ALT 23, Alkaline Phosphatase 165 H, Total Protein 6.5, Albumin 3.9, Globulin 2.6, Albumin/Globulin Ratio 1.5, Procalcitonin 0.753 Orders (Tests/Meds): ORDERS Category Date Time Status CBC w/Auto Diff [Complete Blood Count Auto Diff] Stat Lab 01/03/25 12:59 Completed CMP [Comprehensive Metabolic Panel] Stat Lab 01/03/25 12:59 Completed Procalcitonin Stat Lab 01/03/25 12:59 Completed Wound Culture and Gram Stain Stat Micro 01/03/25 12:12 Results Medical Decision Narrative: In summary patient is a 74-year-old female who presents to the emergency department for evaluation of postoperative wound infection. Patient is hemodynamically stable upon arrival, afebrile. Physical exam is remarkable for wound dehiscence at her surgical site at the fourth toe of the left foot. There is fibrinous purulent and necrotic looking tissue. There is no edema erythema or fluctuance noted. Probed with a wound culture does not penetrate deeper than the superficial surfaces.. Differential diagnosis includes wound dehiscence versus deep space infection. Initial workup will be conducted with hematologic labs and wound culture. Initial interventions deferred until consultation with vascular surgery at [facility]. Given that I had a consultation with the vascular surgery inventory control clerk surgeon regarding their patient presentation and management. They offered to take the patient in transfer but also felt patient could be appropriate for oral medication and follow-up next week in the vascular surgery clinic depending on patient discretion. As patient has no findings of systemic infection and appears to be localized and on exam with the culture tip wound appears to be only superficially infected for now oral antibiotics with strict return precautions would be reasonable. We had a shared decision-making discussion with the patient regarding her VELASQUEZ findings and recommendations and via patient directed decision making she is comfortable going home with oral antibiotics. To that end she will be prescribed Levaquin due to an allergy of cephalosporins and doxycycline. Vascular surgery at the [facility] will contact her to schedule her follow-up appointment early next week. Patient given strict return precautions and advised to either go directly to the [facility] if she has worsening signs or symptoms or return to the ER as needed. I was consulted by the PORTIA, and we discussed the complexity of problems being addressed. I approved the treatment and management plan for this patient's care in the emergency department, thus performing a substantial portion of the medical decision making. Kimberley Haney MD Critical Care <LAURA Desai - Last Filed: 01/03/25 14:13> Critical Care Time Critical Care Time: Yes Attestation: On 01/03/25, the high probability of a clinically significant, sudden or life threatening deterioration of the following system(s) required my full and direct attention, intervention and personal management. The time I documented below is in addition to time spent performing reported procedures but includes the following listed in this critical care notation. Total Time Total Critical Care Time: 30
[2025-01-03 13:08] LABS: Basophils % 0.4 % (0.1-2.0); Eosinophils % 0.7 % (0.1-12.0); Hematocrit 26.6 % (37.0-47.0); Hemoglobin 8.3 g/dL (12.2-16.2); Lymphocytes # 0.6 K/mm3 (0.7-4.5); Mean Corpuscular HGB Conc 31.2 g/dL (31.8-35.4); Mean Corpuscular Hemoglobin 30.3 pg (27.0-31.2); Mean Corpuscular Volume 97.1 fl (81-99); Monocytes # 0.7 K/mm3 (0.1-1.0); Monocytes % 12.6 % (1.7-9.3); Neutrophils # 4.3 K/mm3 (1.8-7.8); Neutrophils % 75.8 % (37.0-80.0); Platelet Count 187 K/mm3 (142-424); Red Blood Count 2.74 M/mm3 (4.20-5.40); Red Cell Distribution Width 19.4 % (11.5-17.5); White Blood Count 5.7 K/mm3 (4.8-10.8)
[2025-01-03 13:17] LABS: Alanine Aminotransferase 23 U/L (12-78); Albumin Level 3.9 g/dl (3.5-5.0); Albumin/Globulin Ratio 1.5 (1.1-1.8); Alkaline Phosphatase 165 U/L (38-126); Anion Gap 9.7 mEq/L (5-15); Aspartate Amino Transferase 32 U/L (14-36); Bilirubin,Total 2.3 mg/dl (0.2-1.3); Blood Urea Nitrogen 12 mg/dl (7-17); Calcium 7.8 mg/dl (8.4-10.2); Carbon Dioxide 32 mmol/L (22.0-30.0); Chloride 96 mmol/L (98-107); Creatinine Clearance Estimated 22 mL/min (50-200); Estimated Glomerular Filt Rate 15 ml/min (>60); GFR (African American) 18 ML/MIN (>60); Globulin 2.6 g/dL (1.3-3.2); Glucose 103 mg/dl (74-100); Potassium 3.7 mmoL/L (3.5-5.1); Sodium 134 mmol/L (136-145); Total Protein,Serum 6.5 g/dl (6.3-8.2)
--- NOTE | 2025-01-03 13:18 | PC.NURSE ---
[facility] per Dr Haney to speak with them about this pt. [facility] advised that they would call us back
--- NOTE | 2025-01-03 13:28 | PC.NURSE ---
called back and is speaking Dr Finney now
[2025-01-03 13:34] LABS: Procalcitonin 0.753 ng/mL (0.0-2.0)
--- NOTE | 2025-01-03 13:35 | PC.NURSE ---
Called [facility] back to let them know that Dr Haney got off the phone with the surgeon and talked to the pt. The pt stated she wanted to go home with oral antibiotics and schedule a follow up with Clinic.
--- NOTE | 2025-01-03 13:38 | PC.NURSE ---
called back and is speaking with Dr Haney again about this pt
--- NOTE | 2025-01-07 08:54 | PC.NURSE ---
Wound culture discussed with . No new orders received. pt sent levofloxacin that is susceptible.
== END 2025-01-03 14:37 | disposition home or self-care (01) ==
PROVIDERS: Physician Assistant; Emergency Provider Student in an Organized Health Care Education/Training Program; PCP Family Medicine
DX: L08.9 Local infection of the skin and subcutaneous tissue, unspecified (principal)
CPT/HCPCS: 80053; 84145; 85025; 87070; 87077; 87186; 87205; 99284

== ENCOUNTER 2025-01-06 06:32 | Emergency (ER) | payer MEDICARE, SELFPAY ==
[2025-01-06 06:40] VITALS: BP 93/60; PULSE 77; RESP 24; TEMP 36.9; O2SAT 89; BMI 31.4
--- NOTE | 2025-01-06 06:40 | ECG_ITS ---
APPROVED REPORT Exam: Resting ECG HR:72 bpm ECG Measurements Heart Rate 72 AXES SD 255 P -65 QRSd 141 QRS -67 QT 441 T 96 QTc 466 Conclusion ELECTRONIC ATRIAL PACEMAKER LEFT AXIS DEVIATION [QRS AXIS < -30] INTRAVENTRICULAR CONDUCTION DELAY [130+ ms QRS DURATION] ABNORMAL ECG No STEMI Electronically signed by : FRANK BROCK, 01/07/2025 03:46:02
--- NOTE | 2025-01-06 06:41 | XR_ITS ---
FINAL REPORT TECHNIQUE: Single view chest CLINICAL HISTORY: leg swelling COMPARISON: 12/03/2024 FINDINGS: A single view of the chest was obtained. Left-sided AICD is unchanged. There is stable cardiomegaly. Bilateral interstitial opacities and small effusions are unchanged. There is no pneumothorax. IMPRESSION: Stable interstitial opacities and small effusions. Reviewed, Interpreted and Dictated by Susannah Oliver MD Transcribed by Yanely Parekh Authenticated and [facility]
--- NOTE | 2025-01-06 06:42 | HMH.EDGENADL ---
Discharge Plan Disposition Patient Disposition: Home, Self-Care Condition: Good Prescriptions Prescriptions: No Action atorvastatin 20 mg tablet 20 mg PO HS Qty: 30 5RF prednisone 10 mg tablet 5 mg PO DAILY acetaminophen [Tylenol] 325 mg capsule 325 mg PO QID PRN (Reason: Mild Pain) insulin aspart U-100 100 unit/mL (3 mL) insulin pen 4 unit SQ ACHS insulin glargine 100 unit/mL (3 mL) insulin pen 6 unit SQ DAILY melatonin 5 mg capsule 5 mg PO HS omeprazole 40 mg capsule,delayed release(DR/EC) 40 mg PO DAILY Patient Comments: TAKE 1 CAPSULE BY MOUTH ONCE DAILY. DO NOT CRUSH OR CHEW furosemide 80 mg tablet 80 mg PO BID Patient Comments: TAKE 1 TABLET BY MOUTH TWICE DAILY mupirocin 2 % ointment 1 applic topical BID 14 Days Qty: 15 0RF Kerasal Fungal Nail Renewal Solution 1 ml topical BID 28 Days Qty: 10 3RF bisoprolol fumarate 10 mg tablet 10 mg PO DAILY Qty: 31 11RF levofloxacin 500 mg tablet 500 mg PO DAILY 7 Days Qty: 7 0RF Clenpiq 10 mg-3.5 gram- 12 gram/175 mL solution 175 ml PO DAILY Qty: 350 0RF Rx Instructions: take first dose at 5-9PM evening before colonoscopy; 2nd dose the next day approximately 5 hrs before colonoscopy folic acid 1 MG tablet 1 mg PO DAILY lactulose 10 GM/15 ML solution 20 g PO TID sevelamer carbonate 800 MG tablet 1,600 mg PO TID rifaximin 550 mg tablet 550 mg PO BID albuterol sulfate 90 mcg/actuation HFA aerosol inhaler 4 inh inhalation Q4H PRN (Reason: shortness of breath or wheezing) Qty: 8.5 0RF Rx Instructions: 4 puffs every 4 hours for 48 hours then as needed for shortness of breath or wheezing following pantoprazole 40 mg tablet,delayed release (DR/EC) 40 mg PO BID Patient Comments: TAKE 1 TABLET BY MOUTH TWICE DAILY 30 MINUTES BEFORE BREAKFAST AND DINNER methocarbamol 750 mg tablet 750 mg PO QID 10 Days Qty: 40 0RF lidocaine 5 % adhesive patch,medicated 1 patch topical DAILY Qty: 15 0RF Rx Instructions: leave on most painful area for up to 12 hrs doxycycline hyclate 100 mg capsule 100 mg PO BID 10 Days Qty: 20 0RF levofloxacin 250 mg tablet 250 mg PO .Every 48 hours Qty: 7 0RF Referrals Follow up/Referrals: Aldo Juarez MD [Primary Care Provider] - See instructions Activity Restrictions/Add. Instructions Additional Instructions/Restrictions: You were evaluated in the emergency department today. At this time, based on lab evaluation and exam, there is no indication for us to transfer you for emergent dialysis. Please proceed with dialysis tomorrow morning as scheduled. Keep your legs elevated to help reduce pain and swelling. Seek evaluation in an emergency department for new or worsening symptoms. Clinical Impressions Clinical Impression: Bilateral edema of lower extremity, Missed dialysis Instructions Patient Instructions: DI for Dialysis, DI for Peripheral Edema -- Bilateral Print Language Print Language: Occitan Discharge ED Provider: Sean Prater Adult HPI <Sean Prater MD - Last Filed: 01/06/25 07:12> General Chief complaint: PAIN Stated complaint: legs swelling, heart racing Time Seen by Provider: 01/06/25 06:34 Mode of Arrival: Wheelchair Source of Information: Patient Description of Symptoms (Recalled from ER Triage Doc. by RN): Pt states she missed her dialysis Monday and now legs swollen History of Present Illness HPI narrative: 74-year-old female with CKD on dialysis presents to the ER with complaints of leg swelling. Patient reports she gets dialysis Monday//Monday but missed her dialysis on Monday because the bus did not pick her up. She called to try to get into dialysis today but they report they are full. She came to the ER because her legs are swelling and she needs dialysis. Patient and family understand that this ER does not have dialysis capabilities but they do not have other transportation available at this time and this is where a family member was able to drop them off. Patient denies any other associated symptoms at this time and is resting relatively comfortably but is concerned knowing that she needs dialysis soon. On further discussion, patient states she did have dialysis on Monday because she had been hospitalized. Related Data Home Medications ?Medication ?Instructions ?Recorded ?Confirmed folic acid 1 mg tablet 1 mg PO DAILY Supplement 11/29/20 12/08/24 lactulose 10 gram/15 mL oral 20 g PO TID liver 11/29/20 12/08/24 solution sevelamer carbonate 800 mg tablet 1,600 mg PO TID Kidney failure 11/29/20 12/08/24 acetaminophen 325 mg capsule 325 mg PO QID PRN Mild Pain 03/23/21 12/08/24 (Tylenol) insulin aspart U-100 100 unit/mL 4 unit SQ ACHS Diabetes 03/23/21 12/08/24 (3 mL) subcutaneous pen insulin glargine 100 unit/mL (3 6 unit SQ DAILY Diabetes 03/23/21 12/08/24 mL) subcutaneous pen melatonin 5 mg capsule 5 mg PO HS Sleep 03/23/21 12/08/24 prednisone 10 mg tablet 5 mg PO DAILY . 03/23/21 12/08/24 rifaximin 550 mg tablet 550 mg PO BID unk 03/23/21 12/08/24 furosemide 80 mg tablet 80 mg PO BID Fluid 10/12/22 12/08/24 omeprazole 40 mg capsule,delayed 40 mg PO DAILY GERD 10/12/22 12/08/24 release pantoprazole 40 mg tablet,delayed 40 mg PO BID 09/11/23 12/08/24 release Previous Rx's ?Medication ?Instructions ?Recorded atorvastatin 20 mg tablet 20 mg PO HS Cholesterol #30 tabs 10/26/22 albuterol sulfate 90 mcg/actuation 4 inh inhalation Q4H PRN shortness 07/25/23 aerosol inhaler of breath or wheezing #8.5 grams bisoprolol fumarate 10 mg tablet 10 mg PO DAILY #31 tabs 09/18/23 mupirocin 2 % topical ointment 1 applic topical BID infection 14 11/27/24 days #15 grams urea-lactic acid-propylene glycol 1 ml topical BID 4 weeks #10 mL 11/27/24 topical solution (Kerasal Fungal Nail Renewal topical solution) levofloxacin 500 mg tablet 500 mg PO DAILY infection 7 days 12/02/24 #7 tabs lidocaine 5 % topical patch 1 patch topical DAILY #15 ea 12/05/24 methocarbamol 750 mg tablet 750 mg PO QID 10 days #40 tabs 12/05/24 sod picosulf 10 mg-magnes 3.5 175 ml PO DAILY 2 doses #350 mL 12/27/24 gram-citric 12 gram/175 mL oral solution (Clenpiq) doxycycline hyclate 100 mg capsule 100 mg PO BID 10 days #20 caps 01/03/25 levofloxacin 250 mg tablet 250 mg PO .Every 48 hours #7 tabs 01/03/25 Allergies Allergy/AdvReac Type Severity Reaction Status Date / Time ceftriaxone Allergy Severe Anaphylaxis Verified 12/05/24 08:21 PFS <Sean Prater MD - Last Filed: 01/06/25 07:12> [facility] Disclaimer: The information contained in this section may have been updated after the patient was seen, as this information can be updated by other users. Medical History Arteriovenous fistula of right upper extremity Diabetes Abnormal result of cardiovascular function study Typical angina Automatic implantable cardioverter-defibrillator in situ [id number] Chronic a-fib Surgical History History of cardiac cath Social History Smoking Status: Never smoker second hand exposure: No alcohol intake: never substance use type: other current occupational status: disabled Travel in the last 8 weeks: None household members: spouse housing: house current occupational exposures/hazards: No caffeine: No Have you lived/traveled outside [place] in past 30 days?: No Contact w/someone who lives/traveled outside [place] past 30 days?: No Exposure to someone with infectious disease in past 14 days?: No Do you have a fever (greater than 100.4 F or 38 C)?: No Have you tested positive for COVID-19: No Exposed to someone with COVID-19 in past 14 days?: No Do you have a sore throat?: No Do you have a cough?: No Do you have any weakness?: No Do you have any diarrhea?: No Are you experiencing any unusual bleeding?: No Do you have any muscle aches/pain?: No Do you have any abdominal pain?: No Are you experiencing loss of taste or smell?: No Other Medical History Have you received the Flu Vaccine for this season: No Have you received the Pneumonia Vaccine: Yes <Sean Prater MD - Last Filed: 01/06/25 07:12> ROS Obtained: Yes Systems reviewed as appropriate & no additional complaints except as documented per HPI Physical Exam <Sean Prater MD - Last Filed: 01/06/25 07:12> General General appearance: alert, in no apparent distress and obese Comment: chronically ill appearing Head Head exam: atraumatic and normocephalic Eye Eye exam: Present PERRL and EOMI ENT ENT exam: Present mucous membranes moist Neck Neck exam: Present normal inspection and full ROM Chest Chest inspection: Present symmetric chest wall rise Respiratory Respiratory exam: Present normal lung sounds bilaterally; Absent respiratory distress, wheezes or stridor Cardiovascular Cardiovascular exam: Present regular rate and normal rhythm Abdominal Exam Abdominal exam: Present soft; Absent distention or tenderness Extremities Exam Extremities exam: Present full ROM and edema (2+ bilateral lower extremity pitting edema); Absent joint swelling Neurological Exam Neurological exam: Present alert and oriented X3; Absent motor sensory deficit Psychiatric Psychiatric exam: Present normal affect and normal mood Skin Skin exam: Present warm and dry Medical Decision Making <Sean Prater MD - Last Filed: 01/06/25 07:12> Medical Records Medical records reviewed: Yes I reviewed the patient's medical records. Screening: Per USPSTF and CDC recommendations, given the prevalence of disease in our region, it is our hospital?s policy to screen for HIV and viral Hepatitis for all patients aged 18 and over and those with ongoing risk factors. MR Comment: Patient is well-known to this emergency department. She was seen 3 days ago for concerns of postoperative wound infection. Rudy Inquiry Pt receiving controlled substance: No Vital Signs: 01/06/25 06:40 01/06/25 07:29 01/06/25 08:01 Temperature 98.4 F Temperature Source Oral Pulse Rate 73 69 Pulse Rate [Right Brachial] 77 Respiratory Rate 24 19 14 Blood Pressure 107/78 L 124/68 Blood Pressure [Right Arm] 93/60 L Blood Pressure Mean [Right Arm] 71 Blood Pressure Source [Right Arm] Automatic Cuff Blood Pressure Position [Right Arm] Supine 02 Sat by Pulse Oximetry 89 L 99 96 Oxygen Delivery Method Room Air Nasal Cannula Nasal Cannula Lab Data Lab Results 01/06/25 07:24: VBG pH 7.39, VBG pCO2 47.1, VBG pO2 46.1 H, VBG HCO3 27.9, VBG Total CO2 29.4 H, VBG O2 Saturation 77.7 H, VBG Base Excess 3.0 H, VBG Lactic Acid 2.1 H 01/06/25 07:25: WBC 5.5, RBC 2.54 L, Hgb 7.9 L, Hct 25.5 L, MCV 100.4 H, MCH 31.1, MCHC 31.0 L, RDW 18.6 H, Plt Count 153, MPV 9.7, Neut % (Auto) 73.7, Lymph % (Auto) 13.6, Spencer % (Auto) 11.4 H, Eos % (Auto) 0.7, Baso % (Auto) 0.4, Neut # (Auto) 4.0, Lymph # (Auto) 0.7, Spencer # (Auto) 0.6, Eos # (Auto) 0.0, Baso # (Auto) 0.0, PT 13.5 H, INR 1.23 H, Sodium 137, Potassium 4.3, Chloride 97 L, Carbon Dioxide 32 H, Anion Gap 12.3, BUN 24 H D, Creatinine 6.30 H D, Estimated Creat Clear 11, Estimated GFR 7 L*, Est GFR ( Amer) 8 L* D, Glucose 96, Calcium 8.2 L, Phosphorus 4.3, Magnesium 2.0, Total Bilirubin 2.3 H, AST 26, ALT 18, Alkaline Phosphatase 168 H, NT-Pro-B Natriuret Pep 17051 H, Total Protein 5.9 L, Albumin 3.6, Globulin 2.3, Albumin/Globulin Ratio 1.6 01/06/25 07:25 01/06/25 07:25 Orders (Tests/Meds): ORDERS Category Date Time Status CXR --portable [XR chest portable] Stat Exams 01/06/25 06:41 Completed BNP [NT Pro Brain Natriuretic Pep.] Stat Lab 01/06/25 07:25 Completed CBC w/Auto Diff [Complete Blood Count Auto Diff] Stat Lab 01/06/25 07:25 Completed CMP [Comprehensive Metabolic Panel] Stat Lab 01/06/25 07:25 Completed MAG [Magnesium] Stat Lab 01/06/25 07:25 Completed PHOS [Phosphorous] Stat Lab 01/06/25 07:25 Completed PT INR [Prothrombin Time INR] Stat Lab 01/06/25 07:25 Completed VBG [Venous Blood Gas] Stat RT 01/06/25 07:24 Completed ECG Request Stat Y 01/06/25 06:41 Ordered Medical Decision Narrative: In summary, this 74-year-old female CKD on dialysis, not at goal therapy presents to the emergency department today with leg swelling having missed dialysis. On initial evaluation patient is hemodynamically stable, afebrile, chronically ill-appearing with peripheral edema in the bilateral lower extremities. She is on home nasal cannula and oxygen saturation is now 100%. Resting comfortably. No other complaints or concerns. Exam otherwise reassuring. Differential diagnosis includes but is not limited to fluid overload, pulmonary edema, electrolyte abnormality, arrhythmia, among others. Based on these concerns, I ordered serum labs, cardiac workup. ECG personally interpreted demonstrates paced rhythm rate 72, left axis deviation, normal QTc, no STEMI. No medications initially administered in the ER. Patient required ultrasound-guided IV due to inability to obtain peripheral access despite multiple nursing attempts. I attempted and failed ultrasound-guided IV. Dr. Atkins is attempting. Patient handed off to Dr. Atkins in stable condition for further management and disposition pending labs and x-ray. <Tiarra Atkins, DO - Last Filed: 01/06/25 08:52> Vital Signs: 01/06/25 06:40 01/06/25 07:29 01/06/25 08:01 Temperature 98.4 F Temperature Source Oral Pulse Rate 73 69 Pulse Rate [Right Brachial] 77 Respiratory Rate 24 19 14 Blood Pressure 107/78 L 124/68 Blood Pressure [Right Arm] 93/60 L Blood Pressure Mean [Right Arm] 71 Blood Pressure Source [Right Arm] Automatic Cuff Blood Pressure Position [Right Arm] Supine 02 Sat by Pulse Oximetry 89 L 99 96 Oxygen Delivery Method Room Air Nasal Cannula Nasal Cannula Lab Data Lab Results 01/06/25 07:24: VBG pH 7.39, VBG pCO2 47.1, VBG pO2 46.1 H, VBG HCO3 27.9, VBG Total CO2 29.4 H, VBG O2 Saturation 77.7 H, VBG Base Excess 3.0 H, VBG Lactic Acid 2.1 H 01/06/25 07:25: WBC 5.5, RBC 2.54 L, Hgb 7.9 L, Hct 25.5 L, MCV 100.4 H, MCH 31.1, MCHC 31.0 L, RDW 18.6 H, Plt Count 153, MPV 9.7, Neut % (Auto) 73.7, Lymph % (Auto) 13.6, Spencer % (Auto) 11.4 H, Eos % (Auto) 0.7, Baso % (Auto) 0.4, Neut # (Auto) 4.0, Lymph # (Auto) 0.7, Spencer # (Auto) 0.6, Eos # (Auto) 0.0, Baso # (Auto) 0.0, PT 13.5 H, INR 1.23 H, Sodium 137, Potassium 4.3, Chloride 97 L, Carbon Dioxide 32 H, Anion Gap 12.3, BUN 24 H D, Creatinine 6.30 H D, Estimated Creat Clear 11, Estimated GFR 7 L*, Est GFR ( Amer) 8 L* D, Glucose 96, Calcium 8.2 L, Phosphorus 4.3, Magnesium 2.0, Total Bilirubin 2.3 H, AST 26, ALT 18, Alkaline Phosphatase 168 H, NT-Pro-B Natriuret Pep 82333 H, Total Protein 5.9 L, Albumin 3.6, Globulin 2.3, Albumin/Globulin Ratio 1.6 Orders (Tests/Meds): ORDERS Category Date Time Status CXR --portable [XR chest portable] Stat Exams 01/06/25 06:41 Completed BNP [NT Pro Brain Natriuretic Pep.] Stat Lab 01/06/25 07:25 Completed CBC w/Auto Diff [Complete Blood Count Auto Diff] Stat Lab 01/06/25 07:25 Completed CMP [Comprehensive Metabolic Panel] Stat Lab 01/06/25 07:25 Completed MAG [Magnesium] Stat Lab 01/06/25 07:25 Completed PHOS [Phosphorous] Stat Lab 01/06/25 07:25 Completed PT INR [Prothrombin Time INR] Stat Lab 01/06/25 07:25 Completed VBG [Venous Blood Gas] Stat RT 01/06/25 07:24 Completed ECG Request Stat Y 01/06/25 06:41 Ordered Medical Decision Narrative: In summary, this 74-year-old female CKD on dialysis, not at goal therapy presents to the emergency department today with leg swelling having missed dialysis. On initial evaluation patient is hemodynamically stable, afebrile, chronically ill-appearing with peripheral edema in the bilateral lower extremities. She is on home nasal cannula and oxygen saturation is now 100%. Resting comfortably. No other complaints or concerns. Exam otherwise reassuring. Differential diagnosis includes but is not limited to fluid overload, pulmonary edema, electrolyte abnormality, arrhythmia, among others. Based on these concerns, I ordered serum labs, cardiac workup. ECG personally interpreted demonstrates paced rhythm rate 72, left axis deviation, normal QTc, no STEMI. No medications initially administered in the ER. Patient required ultrasound-guided IV due to inability to obtain peripheral access despite multiple nursing attempts. I attempted and failed ultrasound-guided IV. Dr. Atkins is attempting. Patient handed off to Dr. Atkins in stable condition for further management and disposition pending labs and x-ray. Wilbert, DO: I assumed care the patient at 7 AM at time of departure previous provider. I placed an ultrasound-guided IV given multiple IV attempts that were failed and need for IV access to obtain labs. CBC obtained demonstrates chronic anemia without need for blood transfusion at this time. VBG is reassuring with no significant acidosis. Chemistry is consistent with patient's end-stage renal disease with elevated BNP, elevated creatinine, elevated BUN. She does not have any severe electrolyte derangements that would indicate need for emergent dialysis, such as hyperkalemia, hyperphosphatemia, or other acute concern. On my assessment of her, she sitting upright in no acute distress eating breakfast. She has no increased work of breathing. I independently interpreted chest x-ray prior to radiology read and noted that she has stable trace bilateral pleural effusions without acute change or decompensation. Overall at this time, I feel that she does not have any significant pulmonary edema, electrolyte derangements, or acidosis that would require transfer transfer to another hospital for emergent dialysis. We do not have dialysis Abilities here. We did confirm that the patient has scheduled dialysis at 6:00 in the morning tomorrow morning with care management. She does have bus transportation to get her there. Ultimately at this time, I feel she is appropriate for discharge home with plan for dialysis tomorrow as scheduled. Strict return precautions given. Critical Care <Sean Prater MD - Last Filed: 01/06/25 07:12> Critical Care Time Critical Care Time: No
--- NOTE | 2025-01-06 06:44 | PC.NURSE ---
Pt placed on 2lpm nasal O2 due to low Sao2
[2025-01-06 07:29] VITALS: BP 107/78; PULSE 73; RESP 19; O2SAT 99
[2025-01-06 07:36] LABS: Basophils % 0.4 % (0.1-2.0); Eosinophils % 0.7 % (0.1-12.0); Hematocrit 25.5 % (37.0-47.0); Hemoglobin 7.9 g/dL (12.2-16.2); Lymphocytes # 0.7 K/mm3 (0.7-4.5); Lymphocytes % 13.6 % (10-50); Mean Corpuscular Hemoglobin 31.1 pg (27.0-31.2); Mean Corpuscular Volume 100.4 fl (81-99); Mean Platelet Volume 9.7 fl (7.4-10.4); Monocytes # 0.6 K/mm3 (0.1-1.0); Monocytes % 11.4 % (1.7-9.3); Neutrophils % 73.7 % (37.0-80.0); Platelet Count 153 K/mm3 (142-424); Red Blood Count 2.54 M/mm3 (4.20-5.40); Red Cell Distribution Width 18.6 % (11.5-17.5); White Blood Count 5.5 K/mm3 (4.8-10.8)
[2025-01-06 07:37] LABS: VBG HCO3 27.9 mmol/L (23-30); VBG Oxygen Saturation 77.7 % (50-70); VBG PCO2 47.1 mmol/L (35-51); VBG PH 7.39 mmol/L (7.31-7.41); VBG PO2 46.1 mmol/L (28-40); VBG Total CO2 29.4 mmol/L (23-27)
[2025-01-06 07:40] LABS: Lactate Venous 2.1 mmol/L (0.4-2.0)
--- NOTE | 2025-01-06 07:42 | SW/DCPLANNER ---
I spoke w/ [facility] in [place] regarding patient's appointments. Per [facility] patient called and cancelled appointment for this AM and afternoon is full. Patient is on scheduled for tomorrow 01/07/25 at 6AM. I have called and updated ER staff.
[2025-01-06 07:45] LABS: Albumin Level 3.6 g/dl (3.5-5.0); Chloride 97 mmol/L (98-107); Potassium 4.3 mmoL/L (3.5-5.1); Sodium 137 mmol/L (136-145)
[2025-01-06 07:48] LABS: Alanine Aminotransferase 18 U/L (12-78); Albumin/Globulin Ratio 1.6 (1.1-1.8); Alkaline Phosphatase 168 U/L (38-126); Anion Gap 12.3 mEq/L (5-15); Aspartate Amino Transferase 26 U/L (14-36); Bilirubin,Total 2.3 mg/dl (0.2-1.3); Blood Urea Nitrogen 24 mg/dl (7-17); Carbon Dioxide 32 mmol/L (22.0-30.0); Creatinine Clearance Estimated 11 mL/min (50-200); Estimated Glomerular Filt Rate 7 ml/min (>60); GFR (African American) 8 ML/MIN (>60); Globulin 2.3 g/dL (1.3-3.2); Phosphorous 4.3 mg/dl (2.5-4.5); Total Protein,Serum 5.9 g/dl (6.3-8.2)
[2025-01-06 07:49] LABS: Calcium 8.2 mg/dl (8.4-10.2); Glucose 96 mg/dl (74-100)
[2025-01-06 08:01] VITALS: BP 124/68; PULSE 69; RESP 14; O2SAT 96
[2025-01-06 08:03] LABS: INR 1.23 (0.9-1.1); Prothrombin Time 13.5 seconds (10.1-12.5)
[2025-01-06 08:22] LABS: NT Pro Brain Natriuretic Pep. 65000 pg/mL (0-125)
[2025-01-06 08:31] VITALS: BP 196/132; PULSE 70; RESP 12; O2SAT 100
[2025-01-06 08:54] VITALS: BP 140/86; BP 140/90; PULSE 74; PULSE 80; RESP 20; TEMP 36.8; O2SAT 100; O2SAT 97
[2025-01-06 11:40] LABS: Reflex Lactic Add Lactic Reflex
--- NOTE | 2025-01-08 17:26 | PC.NURSE ---
WOUND CULTURE DISCUSSED WITH DR HAYNES, NO NEW ORDERS
== END 2025-01-06 08:55 | disposition home or self-care (01) ==
PROVIDERS: Emergency Medicine; Emergency Provider Emergency Medicine; PCP Family Medicine
DX: R60.0 Localized edema (principal); R00.2 Palpitations; N18.6 End stage renal disease; I50.9 Heart failure, unspecified; R79.89 Other specified abnormal findings of blood chemistry; R94.4 Abnormal results of kidney function studies; Z99.2 Dependence on renal dialysis; Z91.158 Patient's noncompliance with renal dialysis for other reason
CPT/HCPCS: 71045; 80053; 82803; 83735; 83880; 84100; 85025; 85610; 93005; 99284

== ENCOUNTER 2025-02-08 21:21 | Emergency (ER) | payer MEDICARE, SELFPAY ==
--- OUTSIDE RECORDS SUMMARY | 2025-02-08 21:31 | XMS_ITS | Continuity of Care Document ---
Author Organization [facility]. If a dditional information is needed, contact Health Information Management at [phone] Address [address] [place] [address] Phone Care Team Providers Care Machine Sizer Name Role Phone Unavailable Unavailable Unavailable Unavailable [...] Unavailable Unavailable Unavailable Unavailable Unavailable Joy Aguilera HS-18-Pok ? ? ? Home Activity/Exercise/Limitations As toleratedHome DC Diet Lyndsey January ? ? ? [place], [place] [address]Phone: Ivelkmlqhgq Discharge SummaryPatient Name: THAO BURKDOB: 1950 Age: 73 Sex: FAcct: [id number] MR#: [id number]: Willy Gilbert DO Author: LyndseyJanuary LPatient Status: ADM IN Patient Location: FR.4S FR.402-ADate of Admission/Service: 07/28/24Report Date/Time: 07/30/24 1402 Report Status: SignedReport#: [id number] Information- General InformationDate of admission:07/28/24Discharge date: 07/30/24Discharge [...] pressure stable# hyperlipidemia:Patient Name: THAO BURK Acct: [id number] Unit: [id number] Page 1* Continue home medications* Lipid panel [...] Lying 07/27/24 23:37Patient Name: THAO BURK Acct: [id number] Unit: [id number] Page 2Blood pressure 96/58 L 07/30/24 13:05Non-invasive [...] bowel sounds, softPatient Name: THAO BURK Acct: [id number] Unit: [id number] Page 3Rectal: not indicatedExtremities: edema, moves allMusculoskeletal: normal inspectionNeuro/MANIFOLD BUILDER: alert, oriented X 3, normal speech- Physical [...] 15:32 20:27 07:15Patient Name: THAO BURK Acct: [id number] Unit: [id number] Page 4POC Glucose 123 H 99 87 [...] H (0.0-0.5) %Lymph % (Auto) 15.9 (9.7-44.3) %[place] % (Auto) 9.6 (1.8-12.7) %Eos % (Auto) 2.5 (0.0-6.0) %[place] % (Auto) 0.3 (0.0-1.0) %Nucleat RBC Rel Count 0.0 (0.0-0.2) %Gran # 2.50 (1.40-7.70) K/uLLymph # (Auto) 0.56 L (0.80-2.90) K/uLMono # (Auto) 0.34 (0.20-0.80) K/uLEos # (Auto) 0.09 (0.00-0.30) K/uLBaso # (Auto) 0.01 (0.00-0.04) K/uLImmature Gran # (Auto) 0.03 (0.00-0.08) K/uLPatient Name: THAO BURK Acct: [id number] Unit: [id number] Page 5Absolute Nucleated RBC 0.00 (0.00-0.01) K/uL Serology 07/28/24 Range/Units 05:00Hep Bs Antigen Negative (Negative)Hepatitis C Antibody Non Reactive (Non Reactive)Results: labs reviewed, vital signs stable, current med profile rev'dDischarge Instructions- PCPPCP follow-up:PCP No Primary or Family PhysicianDischarge to: Home/Self Care- Discharge InstructionsAdditional Discharge Routines: PCP Follow-Up, Delivery Architect Follow- UpDiet: Diabetic, RenalActivity: As ToleratedPrescriptions: e-prescribeDischarge management: greater than 30 minsTreatments Procedures- Treatments ProceduresLab: Chemistry last 24 hrs 07/30/24 03:58Sodium 141 mmol/L (136-142)Potassium 4.7 mmol/L (3.5-5.1)Chloride 102 mmol/L (98-107)Patient Name: THAO BURK Acct: [id number] Unit: [id number] Page 6Carbon Dioxide 30 mmol/L (21-32)BUN 23 [...] Plan 65 or OlderDiscussion included: power of supervisor pressing department (Daughter Robina Burk should be contactedin the event patient cannot advocate for herself), code status (full code)- BMI Screening > 25 or < 18.5Patient's BMI:Current BMI: 30.7 07/28/24 02:51Patient Name: THAO BURK Acct: [id number] Unit: [id number] Page 7- Tobacco Use/CounselingTobacco use/counseling: non tobacco [...] DBP </= 79Patient Name: THAO BURK Acct: [id number] Unit: [id number] Page 8Pre-hypertensive SBP 120-139 DBP 80-89Hypertensive SBP [...] 30 RF: 0 Transmission Status: Received by [facility] 591 Ordered By: Odilia Solorio Last [...] mL) insulin penPatient Name: THAO BURK Acct: [id number] Unit: [id number] Page 9 3 unit SUBCUT TID BEFORE [...] by LUCAS Solorio> 07/30/24 1410I reviewed the PA/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?s chart. I agree with the assessment and care plan, and confirm thediagnosis(es).<Electronically signed by Willy Gilbert DO> 07/30/24 1458Patient Name: THAO BURK Acct: [id number] Unit: [id number] Page 10 Domingomattcarmelita Wale K-04-Cuq30-Jul-2024 ? ? ? [place], [place] [address]Phone: Hqczswxujf Progress NotePatient Name: THAO BURKDOB: 1950 Age: 73 Sex: FAcct: [id number] MR#: [id number]: Willy Gilbert DO Author: Wale Dwyer APatient Status: DIS IN Patient Location: FR.4S FR.402-ADate of Admission/Service: 07/28/24Report Date/Time: 07/30/24 0959 Report Status: SignedReport#: [id number]- SubjectiveChief Complaint: Seen on dialysis. New well. [...] Stop Dose AdminPatient Name: THAO BURK Acct: [id number] Unit: [id number] Page 1Acetaminophen 650 mg 07/28/24 03:56 Acetaminophen [...] Given BID SCHGuaifenesin/Dextromethorphan 10 ml 07/28/24 18:30 10/13/24 18:13Patient Name: THAO BURK Acct: [id number] Unit: [id number] Page 2 Guaifenesin/D-Methorphan Oral Syrup 200-20 Mg/10 [...] mg 07/28/24 03:56Patient Name: THAO BURK Acct: [id number] Unit: [id number] Page 3 Ondansetron Injection Solution 4 Mg/2 Ml Sdv IV 09/26/24 03:55 Q6H PRN PRN Nausea / Vomiting- Physical ExamGeneral appearance: alert, awake, orientedHead/eyes: atraumatic, normocephalicENT: normal noseNeck: non-tenderCardiovascular: murmur, lower extremity edema, regular rate and rhythmRespiratory: decreased breath sounds, on oxygen, symmetric expansionAbdomen: distended, normal bowel sounds, softGenitourinary: no foleyExtremities: swelling, non-tenderNeuro/MANIFOLD BUILDER: alert, oriented X 3, normal speech- Hemodialysis AccessType: AV fistulaLocation: right upper armComments: bruit present, thrill presentSkin: dryPsychiatry: normal mood, normal judgment/insight- ResultsResult Diagrams: 07/30/24 03:58 07/30/24 03:58Findings/Data: Chemistry 07/30/24 Range/Units 03:58Sodium 141 (136-142) mmol/LPotassium 4.7 (3.5-5.1) mmol/LChloride 102 (98-107) mmol/LCarbon Dioxide 30 (21-32) mmol/LAnion Gap 9 (5-14) mMol/LBUN 23 H (7-18) mg/dLCreatinine 7.71 H* (0.55-1.02) mg/dLBUN/Creatinine Ratio 3.0Patient Name: THAO BURK Acct: [id number] Unit: [id number] Page 4Glucose 90 (74-106) mg/dLCalcium 8.6 (8.5-10.1) [...] L (153-361) K/uLPatient Name: THAO BURK Acct: [id number] Unit: [id number] Page 5MPV 10.2 (8.5-12.1) fLGran % 70.9 (43.0-83.7) %Immature Gran % (Auto) 0.8 H (0.0-0.5) %Lymph % (Auto) 15.9 (9.7-44.3) %[place] % (Auto) 9.6 (1.8-12.7) %Eos % (Auto) [...] failureStatus: Acute(3) HyperkalemiaPatient Name: THAO BURK Acct: [id number] Unit: [id number] Page 6Status: Acute(4) HypertensionStatus: Acute(5) AnemiaStatus: Acute- Diagnosis, Assessment PlanFree Text A P:Dialysis today for 3-1/2 hours ultrafiltration off 3 if we are able to. Dialysis access workingwell with good blood flow. Discussed importance of compliance for her dialysis schedule<Electronically signed by Wale Dwyer MD> 08/27/24 1549Patient Name: THAO BURK Acct: [id number] Unit: [id number] Page 7 Mendez Lopez 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- 024 ? ? ? [place], [place] [address]Phone: Wxgdqnxndi Progress NotePatient Name: THAO BURKDOB: 1950 Age: 73 Sex: FAcct: [id number] MR#: [id number]: Willy Gilbert DO Author: Zuleyma Simms NPPatient Status: DIS IN Patient Location: [place] [address]-ADate of Admission/Service: 07/28/24Report Date/Time: 07/29/24 1159 Report Status: SignedReport#: [id number]- SubjectiveChief Complaint: awake sitting up in chair. [...] 360 / 360Patient Name: THAO BURK Acct: [id number] Unit: [id number] Page 1Intake: Oral 360 / 360Other: Breakfast [...] 04:21 DIRECTED PRNPatient Name: THAO BURK Acct: [id number] Unit: [id number] Page 2 Hypoglycemia Per ProtocolDextrose/Water 25 gm [...] IV 09/26/24 03:55Patient Name: THAO BURK Acct: [id number] Unit: [id number] Page 3 Q4H PRN PRN Pain Scale [...] normal bowel sounds, softGenitourinary: no foleyExtremities: swelling, non-tenderNeuro/MANIFOLD BUILDER: alert, oriented X 3, normal speech- Hemodialysis AccessType: AV fistulaLocation: right upper armComments: bruit present, thrill presentSkin: dryPsychiatry: normal mood, normal judgment/insight- ResultsResult Diagrams: 07/29/24 04:12 07/29/24 04:30Findings/Data: Chemistry 07/29/24 Range/Units 04:30Sodium 141 (136-142) mmol/LPotassium 4.5 (3.5-5.1) mmol/LChloride 103 (98-107) mmol/LCarbon Dioxide 31 (21-32) mmol/LPatient Name: THAO BURK Acct: [id number] Unit: [id number] Page 4Anion Gap 7 (5-14) mMol/LBUN 15 [...] L (32-36) g/dLPatient Name: THAO BURK Acct: [id number] Unit: [id number] Page 5RDW Coeff of [place] 15.9 H (12.0-14.8) %Plt Count 115 L (153-361) K/uLMPV 9.9 (8.5-12.1) fLGran % 76.0 (43.0-83.7) %Immature Gran % (Auto) 0.2 (0.0-0.5) %Lymph % (Auto) 13.7 (9.7-44.3) %[place] % (Auto) 7.8 (1.8-12.7) %Eos % (Auto) [...] noted, Hgb low but stablePLAN per Dr Davison HD tomorrow per her TTS schedulePatient Name: THAO BURK Acct: [id number] Unit: [id number] Page 6renal diet, continue fluid restrictionreplace iron, give epogen<Electronically signed by LUCAS Simms> 07/29/24 1205I reviewed the PA/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's chart. I agree with the assessment and care plan, and confirm thediagnosis(es).<Electronically signed by Wale Dwyer MD> 08/27/24 9109Patient Name: APOLLO THAO DIEUDONNE Acct: [id number] Unit: [id number] Page 7 January-14-Jul-2024 ? ? ? [address], [place] [address]Phone: Mtapbxvpucq Progress NotePatient Name: THAO BURKDOB: 1950 Age: 73 Sex: FAcct: [id number] MR#: [id number]: Willy Gilbert DO Author: Lyndsey,January LPatient Status: ADM IN Patient Location: [place] [address]-ADate of Admission/Service: 07/28/24Report Date/Time: 07/29/24 1012 Report Status: SignedReport#: [id number]- SubjectivePatient reports: YES feeling better, YES pain [...] scale 07/28/24 02:51Patient Name: THAO BURK Acct: [id number] Unit: [id number] Page 1Body surface area 2.04 07/28/24 02:51Body [...] PRN PRN AdministrationPatient Name: THAO BURK Acct: [id number] Unit: [id number] Page 2 Pain Scale 4-6Bisacodyl 10 mg [...] CoughHeparin Sodium (Porcine) 5,000 unit 07/28/24 08:00 10/14/24 08:45 Heparin Sodium (Porcine) 5000 Unit/Ml 1 Ml Vial SUBQ 09/26/24 07:59 5,000 unit Q8 SHENG AdministrationPatient Name: THAO BURK Acct: [id number] Unit: [id number] Page 3Hydralazine HCl 10 mg 07/28/24 04:22 [...] Unit/Ml SUBQ 09/26/24 07:29 Not Given ACHS [facility] ProtocolMorphine Sulfate 2 mg 07/28/24 03:56 Morphine Sulfate Injection Solution 2 Mg/Ml 1 Ml IV 09/26/24 03:55 Q4H PRN PRN Pain Scale 7-10Ondansetron HCl 4 mg 07/28/24 03:56 Ondansetron Injection Solution 4 Mg/2 Ml Sdv IV 09/26/24 03:55 Q6H PRN PRN Nausea / Vomiting Discontinued MedicationsDiscontinued MedicationsGeneric Name Dose Route Start Last AdminPatient Name: THAO BURK Acct: [id number] Unit: [id number] Page 4 Trade Name Freq PRN Reason [...] bowel sounds, softExtremities: edema, moves allMusculoskeletal: normal inspectionNeuro/MANIFOLD BUILDER: alert, oriented X 3, normal speech- [place] Coma ScoreEye opening: (4) SpontaneousVerbal response: (5) OrientedPatient Name: THAO BURK Acct: [id number] Unit: [id number] Page 5Best motor response: (6) Obeys commandsGCS [...] g/dL POC GlucosePatient Name: THAO BURK Acct: [id number] Unit: [id number] Page 6 07/28/24 07/28/24 07/29/24 Range/Units 15:42 [...] (0.0-0.5) %Lymph % (Auto) 13.7 (9.7- 44.3) %[place] % (Auto) 7.8 (1.8-12.7) %Eos % (Auto) 2.1 (0.0-6.0) %Bas[place] % (Auto) 0.2 (0.0-1.0) %Nucleat RBC Rel Count 0.0 (0.0-0.2) %Patient Name: THAO BURK Acct: [id number] Unit: [id number] Page 7Gran # 3.33 (1.40-7.70) K/uLLymph # [...] results noted# diabetes:Patient Name: THAO BURK Acct: [id number] Unit: [id number] Page 8* Monitor fingerstick blood glucose* Continue [...] Plan 65 or OlderDiscussion included: power of supervisor pressing department (Daughter Robina Burk should be contactedin the event patient cannot advocate for herself), code status (full code)- BMI Screening > 25 or < 18.5Patient's BMI:Current BMI: 30.7 07/28/24 02:51- Tobacco Use/CounselingTobacco use/counseling: non tobacco user, no counseling needed- HTN Screening/Follow-upLast documented vitals: Vital Signs - Last DocumentedTemperature 97.5 F 07/29/24 12:04Patient Name: THAO BURK Acct: [id number] Unit: [id number] Page 9Pulse 70 07/29/24 12:04Respiratory rate 14 [...] Agree w/findings planPatient Name: THAO BURK Acct: [id number] Unit: [id number] Page 10 Note 1Attest: I agree with the findings and plan as documented by Odilia Solorio APRN<Electronically signed by LUCAS Solorio> 07/29/24 1417I reviewed the PA/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?s chart. I agree with the assessment and care plan, and confirm thediagnosis(es).<Electronically signed by Chanda Jauregui MD> 07/30/24 0903Patient Name: THAO BURK Acct: [id number] Unit: [id number] Page 11 Noam Sterling 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- 024 ? ? ? [place], [place] [address]Phone: Autbjdnyxse Progress NotePatient Name: THAO BURKDOB: 1950 Age: 73 Sex: FAcct: [id number] MR#: [id number]: Chanda Jauregui MD Author: Hallie Santacruz NPPatient Status: ADM IN Patient Location: [facility] FR.402-ADate of Admission/Service: 07/28/24Report Date/Time: 07/28/24 1223 Report Status: SignedReport#: [id number]- SubjectiveChief Complaint: Patient resting comfortably in bed [...] and generalized weakness. Patient did [facility] and was transferred for possible emergent [...] 121 07/28/24 02:16Patient Name: THAO BURK Acct: [id number] Unit: [id number] Page 1Bedside pulse oximetry/SpO2 100 07/28/24 10:59Patient [...] DAILY PRN PRNPatient Name: THAO BURK Acct: [id number] Unit: [id number] Page 2 No Bowel Movements For 48 [...] 07:29 Not GivenPatient Name: THAO BURK Acct: [id number] Unit: [id number] Page 3 ACHS SHENG ProtocolMorphine Sulfate 2 [...] 06:12 Not GivenPatient Name: THAO BURK Acct: [id number] Unit: [id number] Page 4 ONCE ONE- Physical ExamGeneral appearance: [...] all, no calf tenderness, no cyanosisMusculoskeletal: normal inspectionNeuro/MANIFOLD BUILDER: alert, oriented X 3, CNII- XII intact, [...] Blood Glucose 102.54Patient Name: THAO BURK Acct: [id number] Unit: [id number] Page 5Hemoglobin A1c 5.2 (4.5-6.2) %Calcium 8.7 [...] (70-110) mg/dl CoagulationPatient Name: THAO BURK Acct: [id number] Unit: [id number] Page 6 07/27/24 Range/Units 23:10PT 10.8 (9.3-12.1) [...] (0.0-0.5) %Lymph % (Auto) 18.9 16.1 (9.7-44.3) %[place] % (Auto) 7.8 8.5 (1.8-12.7) %Eos % (Auto) 0.4 1.3 (0.0-6.0) %Baso % (Auto) 0.2 0.4 (0.0-1.0) %Nucleat RBC Rel Count 0.0 0.0 (0.0-0.2) %Gran # 3.61 3.27 (1.40-7.70) K/uLLymph # (Auto) 0.95 0.72 L (0.80-2.90) K/uLPatient Name: THAO BURK Acct: [id number] Unit: [id number] Page 7Mono # (Auto) 0.39 0.38 (0.20-0.80) [...] nephrology evaluation recommendationsPatient Name: THAO BURK Acct: [id number] Unit: [id number] Page 8# end-stage renal disease on hemodialysis:* [...] an urgent orPatient Name: THAO BURK Acct: [id number] Unit: [id number] Page 9emergent medical situation where time is of the essence. To delay treatment would jeopardize thepatient's health status on the day of the encounter.- VTE ProphylaxisVTE prophylaxis initiated: yes- Advanced Care Plan 65 or OlderDiscussion included: power of supervisor pressing department (Daughter Robina Burk [phone] should be contactedin the event patient cannot [...] 02:51Body mass index 30.7 07/28/24 02:51Patient Name: THAO BURK Acct: [id number] Unit: [id number] Page 10Height 1.68 m 07/28/24 02:51Height source [...] my personal evaluation is[ ]<Electronically signed by 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 Hallie Santacruz> 07/28/24 1232I reviewed the PA/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?s chart. I agree with the assessment and care plan, and confirm thediagnosis(es).<Electronically signed by Chanda Jauregui MD> 07/28/24 2131Patient Name: THAO BURK Acct: [id number] Unit: [id number] Page 11 Yuliya Echevarria X-04-Sbz-2024 ? ? ? [place], [place] [address]Phone: Niiibtxktf Consultation NotePatient Name: THAO BURKDOB: 1950 Age: 73 Sex: FAcct: [id number] MR#: [id number]: Willy Gilbert DO Author: Wale Dwyer APatient Status: DIS IN Patient Location: FR.4S FR.402-ADate of Admission/Service: 07/28/24Report Date/Time: 07/28/24 1223 Report Status: SignedReport#: [id number] of Present Illness- HPIRequesting clinician: Tk Edwards for consult: ESRD, HyperkalemiaChief complaint: Weakness, SOBHPI:73-year-old female with known history of diabetes, hypertension, dyslipidemia, end-stage renaldisease on outpatient hemodialysis in [facility]. He is under care of Nephrology. Dialyzeson [...] Family HistoryFamily History:Patient Name: THAO BURK Acct: [id number] Unit: [id number] Page 1 Family History by Condition (Last [...] HistoryCurrent Hospital MedicationsPatient Name: THAO BURK Acct: [id number] Unit: [id number] Page 2Generic Name Dose Route Start Last [...] 08:59 100 mgPatient Name: THAO BURK Acct: [id number] Unit: [id number] Page 3 BID SHENG AdministrationHeparin Sodium (Porcine) [...] 07/27/24 23:46) Rash-HivesPatient Name: THAO BURK Acct: [id number] Unit: [id number] Page 4Objective- GeneralVS/I O: Vital Signs Temp [...] 22 H 99Patient Name: THAO BURK Acct: [id number] Unit: [id number] Page 5 07/28/24 00:45 130/79 L 07/28/24 [...] Q6H PRN PRNPatient Name: THAO BURK Acct: [id number] Unit: [id number] Page 6 PAIN 1-3/TEMP> 100.5/38.1C/HAHydrocodone Bitart/Acetaminophen 1 [...] Q8 SHENG AdministrationPatient Name: THAO BURK Acct: [id number] Unit: [id number] Page 7Hydralazine HCl 10 mg 07/28/24 04:22 Hydralazine Injection Solution 20 Mg/Ml 1 Ml Vial IV 09/26/24 04:21 Q4H PRN PRN SBP Greater Than 150Insulin Glargine-yfgn 10 unit 07/28/24 09:00 07/28/24 09:11 Insulin Glargine-Yfgn 20 Units/0.2 Ml SUBQ 09/26/24 08:59 10 unit BID SHENG AdministrationInsulin Human Lispro 0 unit 07/28/24 07:30 07/28/24 11:06 Insulin Lispro 100 Unit/Ml SUBQ 09/26/24 07:29 Not Given ACHS [facility] ProtocolMorphine Sulfate 2 mg 07/28/24 03:56 Morphine [...] normal bowel sounds, softGenitourinary: no foleyExtremities: swelling, non-tenderNeuro/MANIFOLD BUILDER: alert, oriented X 3, CN II-XII intact, normal speech- Hemodialysis AccessType: AV fistulaLocation: right upper armPatient Name: THAO BURK Acct: [id number] Unit: [id number] Page 8- ResultsFindings/Data:Hematology 07/27/24 07/28/24 Range/Units 23:10 [...] (0.0-0.5) %Lymph % (Auto) 18.9 16.1 (9.7-44.3) %[place] % (Auto) 7.8 8.5 (1.8-12.7) %Eos % [...] 0.00 (0.00-0.01) K/uLPatient Name: THAO BURK Acct: [id number] Unit: [id number] Page 9Coagulation 07/27/24 Range/Units 23:10PT 10.8 (9.3-12.1) [...] 18 (15-37) IU/LPatient Name: THAO BURK Acct: [id number] Unit: [id number] Page 10ALT 17 (14-59) IU/LTotal Alk Phosphatase 170 H (46-116) IU/LTroponin I High Sens 17 16 (0-51) ng/LNT-Pro-B Natriuret Pep 90795 H (0-125) pg/mLSerum Total Protein 7.0 (6.4-8.2) [...] (CKD-EPI 2020) mL/minPatient Name: THAO BURK Acct: [id number] Unit: [id number] Page 11BUN/Creatinine RatioGlucose (74-106) mg/dLPOC Glucose 109 [...] Ratio 0.5Cholesterol/HDL Ratio 1.7TSH 2.875 (0.358-3.740) mIU/mLPOC Booibvt49/13/24 06:38: POC Glucose 109Patient Name: THAO BURK Acct: [id number] Unit: [id number] Page 10:57: POC Glucose 148 HRadiology data:Radiology [...] control.(5) AnemiaStatus: AcutePatient Name: THAO BURK Acct: [id number] Unit: [id number] Page 13Problem A P:Possibly multifactorial. Will check iron studies B12 and folate replace deficiency and placed onESA as well<Electronically signed by Wale Dwyer MD> 08/27/24 1549Patient Name: THAO BURK Acct: [id number] Unit: [id number] Page 14 Basilio Cramer DO-28-Jul-2024 ? ? ? [place], [place] [address]Phone: VK PHYSICIAN RECORDPatient Name: THAO BURKDOB: 1950 Age: 73 Sex: FAcct: [id number] MR#: [id number]: Willy Gilbert DO Author: Bela Richmond DOPatient Status: DIS IN Patient Location: FR.4S FR.402-ADate of Admission/Service: 07/28/24Report Date/Time: 07/28/24 0042 Report Status: SignedReport#: [id number]-Uiffftw/Wheezing- Free Text HPI Notes73 year old female [...] NL thought contentPatient Name: THAO BURK Acct: [id number] Unit: [id number] Page 1- Focused Review of SystemsConstitutional: Denies [...] 07/27/24 23:46Physical ExamPatient Name: THAO BURK Acct: [id number] Unit: [id number] Page 2- Initial Vital SignsVital Signs - [...] Diagrams: 07/30/24 03:58Patient Name: THAO BURK Acct: [id number] Unit: [id number] Page 3 07/30/24 03:58Results: Laboratory results within [...] H (0.0-0.5) %Lymph % (Auto) 18.9 (9.7-44.3) %[place] % (Auto) 7.8 (1.8-12.7) %Eos % (Auto) 0.4 (0.0-6.0) %[place] % (Auto) 0.2 (0.0-1.0) %Nucleat RBC Rel Count 0.0 (0.0-0.2) %Gran # 3.61 (1.40-7.70) K/uLLymph # (Auto) 0.95 (0.80-2.90) K/uLMono # (Auto) 0.39 (0.20-0.80) K/uLEos # (Auto) 0.02 (0.00-0.30) K/uLBaso # (Auto) 0.01 (0.00-0.04) K/uLImmature Gran # (Auto) 0.04 (0.00-0.08) K/uLPatient Name: THAO BURK Acct: [id number] Unit: [id number] Page 4Absolute Nucleated RBC 0.00 (0.00-0.01) K/uLPT [...] High Sens 17 (0-51) ng/LNT-Pro-B Natriuret Pep 73148 H (0-125) pg/mLSerum Total Protein 7.0 (6.4-8.2) g/dLAlbumin 3.7 (3.4-5.0) g/dLGlobulin 3.3 g/dLAlbumin/Globulin Ratio 1.1Radiology Impressions within the last 24 hrsChest X-Ray 07/27/24 23:43IMPRESSION:Pulmonary vascular congestion. Right basilar opacities representing atelectasis or airspace diseasesuch as mild edema or infection.CRITICAL RESULT:Patient Name: THAO BURK Acct: [id number] Unit: [id number] Page 5No.COMMUNICATION:Per this written report.Drafted by Aroldo [...] Time StatTroponin I High Sensitivity Stat1 23:43ED Rescue Boat Operator ContinuousNPO ED Stat EDXR Chest 1 View [RAD] StatEKG Status Nurse ONCEEKG Stat1 01:43Troponin I High Sensitivity TimedEKG Status Nurse ONCEEKG RoutineNotes Reviewed: Prior ED visit, Specialist/consult note- Differential Diagnosis)( Differential Diagnosis: Positive Congestive heart failure, Positive COPD exacerbation, PositiveRespiratory failure, Positive Respiratory insufficiency, Positive Other (end stage renal disease)Patient Name: THAO BURK Acct: [id number] Unit: [id number] Page 6Patient Discharge Departure- ConditionCondition: Stable- Disposition [...] CP/SOACondition: Fair<Electronically signed by Bela Richmond DO> 07/31/246Patient Name: THAO BURK Acct: [id number] Unit: [id number] Page 7 Maximo Frey MD-27-Jul-2024 ? ? ? [facility] [address]G[place]: [phone] Uahgylofjoh History PhysicalPatient Name: THAO BURKDOB: 1950 Age: 73 Sex: FAcct: [id number] MR#: [id number]: Tk Marsh MD Author: Tk Marsh MDPatient Status: ADM LONI Patient Location: FR.4S FR.402-ADate of Admission/Service: 07/28/24Report Date/Time: 07/27/24 2350 Report Status: SignedReport#: [id number] of Present Illness- HPIChief complaint: Shortness of [...] Family HistoryFamily History:Patient Name: THAO BURK Acct: [id number] Unit: [id number] Page 1 Family History by Condition (Last [...] - Last DocumentedPatient Name: THAO BURK Acct: [id number] Unit: [id number] Page 2Temperature 36.6 C 07/27/24 23:30Pulse 69 [...] all, no calf tenderness, no cyanosisMusculoskeletal: normal inspectionNeuro/MANIFOLD BUILDER: alert, oriented X 3, CNII- XII intact, normal speech- [place] Coma ScoreEye opening: (4) SpontaneousVerbal response: (5) OrientedBest motor response: (6) Obeys commandsGCS Score (Copyright Delfino Mccartyale): 15Skin: dry, normal temperatureLymphatics: neck normalPatient Name: THAO BURK Acct: [id number] Unit: [id number] Page 3Psychiatry: normal judgment/insight, normal mood- ResultsFindings/Data: [...] H (0.0-0.5) %Lymph % (Auto) 18.9 (9.7-44.3) %[place] % (Auto) 7.8 (1.8-12.7) %Eos % (Auto) 0.4 (0.0-6.0) %[place] % (Auto) 0.2 (0.0-1.0) %Nucleat RBC Rel Count 0.0 (0.0-0.2) %Gran # 3.61 (1.40-7.70) K/uLLymph # (Auto) 0.95 (0.80-2.90) K/uLMono # (Auto) 0.39 (0.20- 0.80) K/uLEos # (Auto) 0.02 (0.00-0.30) K/uLBaso # (Auto) 0.01 (0.00-0.04) K/uLImmature Gran # (Auto) 0.04 (0.00-0.08) K/uLPatient Name: THAO BURK Acct: [id number] Unit: [id number] Page 4Absolute Nucleated RBC 0.00 (0.00-0.01) K/uLResults: [...] on hospital course.Patient Name: THAO BURK Acct: [id number] Unit: [id number] Page 5Prognosis: GuardedCode status: Full codeDisposition: To [...] or OlderDiscussed with: patientDiscussion included: power of supervisor pressing department (Daughter Robina Burk should be contactedin the [...] Observed 07/27/24 23:37Patient Name: THAO BURK Acct: [id number] Unit: [id number] Page 6Vital signs position Lying 07/27/24 23:37Blood [...] MD> 07/28/24 0618Patient Name: THAO BURK Acct: [id number] Unit: [id number] Page 7 Problems Dyspnea Onset:31-Jul-2024 Basilio Wael DO Status:Acute Hyperkalemia Onset:28-Jul-2024 Geneidy Ayman A Status:Acute Hypertensive disorder Onset:28-Jul-2024 Geneidy Ayman A Status:Acute Anemia Onset:28-Jul-2024 Geneidy Ayman A Status:Acute End-stage renal disease Onset:28-Jul-2024 Basilio Wael DO Status:Acute Respiratory failure Onset:28-Jul-2024 Geneidcarmelita Echevarria A Status:Acute Hypertensive disorder Onset:28-Jul-2024 Maximo Frey MD Status:Acute Hyperlipidemia Onset:28-Jul-2024 Maximo Frey MD Status:Acute End stage renal failure on d ialysis Onset:28-Jul-2024 Maximo Frey MD Status:Acute History of cholecystectomy Onset:28-Jul-2024 Maximo Frey MD Status:Acute H/O: cardiac pacemaker in si [place] Onset:28-Jul-2024 Maximo Frey MD Status:Acute Congestive heart failure Onset:28-Jul-2024 Maximo Frey MD Status:Acute Diabetes mellitus [...] mg PO BID 1 ML epoetin krystyna-epbx 96943 UNT/ML Injection [Retacrit];26847 UNIT Once Quantity:2 Earnestinele Zuleyma M 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 Start:12-Tdz-2066Mbq:2023 Comments:Provider Administration Instructions:Dose: 20,000 Units predniSONE 5 MG Oral Tablet; 5 MG ORAL Daily Start:29-Jul-2024 Comments:5 mg PO DAILY sevelamer carbonate 800 MG O ral Tablet [Renvela];1600 MG ORAL Three Times Daily With Meals Start:29-Jul-2024 Comments:1600 mg PO TID WITH MEALS ferrous sulfate 325 mg (65 m g iron) tablet;325 MG ORAL Daily Start:29-Jul-2024 Status:Aborted Comments:325 mg PO DAILY Guaifenesin ER;600 MG ORAL T wo Times a Day Start:29-Jul-2024 Status:Aborted Comments:600 mg PO BID petrolatum 0.41 MG/MG Topica l Ointment [Aquaphor];1 APPLIC TOPICAL Two Times a Day Start:29-Jul-2024 Status:Aborted Comments:1 applic TOPICAL BID NovoLOG Flexpen_NOVO100I5-AO M;3 UNIT subcut Three Times a Day Before Meals Start:29-Jul-2024 Comments:3 unit SUBCUT TID BEFORE MEALS insulin glargine 100 UNT/ML Injectable Solution [Lantus];6 UNIT subcut At Bedtime Start:29-Jul-2024 Comments:6 unit SUBCUT BEDTIME Cosopt Eye Drops;1 DRP ophthalmic (eye Two Times a Day Start:29-Jul-2024 Comments:1 drp OPHTHALMIC (EYE BID Protonix_PANT40TA2-AOM;40 MG ORAL Two Times a Day Before Meals Start:29-Jul-2024 Comments:40 mg PO BID BEFORE MEALS brimonidine tartrate 2 MG/ML Ophthalmic Solution;1 DRP ophthalmic (eye Two Times a Day Start:29-Jul-2024 Comments:1 drp OPHTHALMIC (EYE BID bisoprolol fumarate 10 MG Or al Tablet;10 MG ORAL Daily Start:29-Jul-2024 Comments:10 mg PO DAILY Nyata;1 APPLIC TOPICAL Daily Start:29-Jul-2024 Status:Aborted Comments:1 applic TOPICAL DAILY tiotropium bromide 2.5 mcg/actuation mist for inhalation;2 INH Inhalation Daily Start:29-Jul-2024 Comments:2 inh INHALATION DAILY rifAXIMin 550 MG Oral Tablet [XIFAXAN];550 MG ORAL Two Times a Day Start:29-Jul-2024 Comments:550 mg PO BID aspirin 81 MG Chewable Tablet;81 MG ORAL Daily Start:29-Jul-2024 Status:Aborted Comments:81 mg PO DAILY allopurinol 100 MG Oral Tablet;100 MG ORAL Daily Start:29-Jul-2024 Status:Aborted Comments:100 mg PO DAILY metoprolol tartrate 50 MG Or al Tablet;50 MG ORAL Two Times a Day Start:29-Jul-2024 Status:Aborted Comments:50 mg PO BID 24 HR isosorbide mononitrate 60 MG Extended Release Oral Tablet;60 MG ORAL Daily Start:29-Jul-2024 Status:Aborted Comments:60 mg PO DAILY Stool Softener_STOO100C-AOM; 100 MG ORAL Two Times a Day Start:29-Jul-2024 Status:Aborted Comments:100 mg PO BID folic acid 1 MG Oral Tablet; 1 MG ORAL Daily Start:29-Jul-2024 Comments:1 mg PO DAILY Eliquis;2.5 MG ORAL Two Time s a Day Start:29-Jul-2024 Status:Aborted Comments:2.5 mg PO BID insulin, regular, human 100 UNT/ML Injectable Solution [HumuLIN R];10 UNIT Once Quantity:1 Maximo Frey MD Start:85-Fps-9028Lqi:2023 Comments:Provider Administration Instructions:PLEASE administer after administration of oneamp of D50 to bring potassium down Hazardous WasteDispose of package and any unused portion 50 ML calcium gluconate 20 MG/ML Injection;50 ML X1ED Quantity:1 Maximo Frey MD Start:02-Cld-2477Zyw:2023 Comments:Provider Administration Instructions:Calcium Gluconate 1000 mg/50 ml NS 50 ML glucose 500 MG/ML Prefilled Syringe;25 GM Once Quantity:1 Maximo Frey MD Start:89-Tug-8562Hjq:[address] [place] [address] MG Powder for Oral Suspension [Lokelma];10 GM Once Quantity:1 Maximo Frey MD Start:64-Sfl-0357Kvg:2023 Cosopt Eye Drops;OPHTHALMIC (EYE Start:28-Jul-2024 Status:Aborted Comments:OPHTHALMIC (EYE Prilosec_PRIL40CA6-AOM;mg Start:28-Jul-2024 Status:Aborted Comments:mg brimonidine tartrate 2 MG/ML Ophthalmic Solution;drp OPHTHALMIC (EYE Start:28-Jul-2024 Status:Aborted Comments:drp OPHTHALMIC (EYE folic acid 1 MG Oral Tablet Start:28-Jul-2024 Status:Aborted ipratropium bromide 0.2 MG/M L Inhalation Solution Start:28-Jul-2024 Status:Aborted Furosemide;mg Start:28-Jul-2024 Status:Aborted Comments:mg bisoprolol fumarate 10 MG Or al Tablet;mg Start:28-Jul-2024 Status:Aborted Comments:mg Robaxin;mg Start:28-Jul-2024 Status:Aborted Comments:mg sevelamer carbonate 800 MG O ral Tablet [Renvela];mg Start:28-Jul-2024 Status:Aborted Comments:mg rifAXIMin 550 MG Oral Tablet [XIFAXAN];mg BID Start:28-Jul-2024 Status:Aborted Comments:mg BID Protonix_PANT40TA2-AOM;mg PO Start:28-Jul-2024 Status:Aborted Comments:mg PO Procedures Performance of Urinary Filtr ation, Intermittent, Less than 6 Hours Per Day Date:28-Jul-2024 EKGResult:[place] [id number]: Ctrwjnflbiljfwwzw ReportPatient Name: THAO BURKDOB: 1950 Age: 73 Sex: FAcct: [id number] MR#: [id number] Status: DIS IN Patient [facility] Physician: Bela Richmond of Admission:07/28/24Test Reason : [...] for LVH, may be normal variant ( Carl product ) Possible Anterolateral infarct (cited on or before 28-JUL-2024) Abnormal ECG When compared with ECG of 28-JUL-2024 01:35, premature supraventricular complexes are no longer present Confirmed by Delvis Norris ([id number]) on 08/06/2024 11:11:27 AM Referred By: Confirmed By:Delvis Norris<Electronically signed by Delvis Norris MD in OV>08/06/24 1112Dictated By: Delvis Norris MD DictatedDate/Time: 07/28/24 0136Transcribed By: Delvis Norris MDTranscribed Date/Time: 07/28/24 013Technologist: Report ID: [id number] To:Patient Name: THAO BURK Acct: [id number] Unit: [id number] Page 1 Date:28-Jul-2024 Status:Completed EKGResult:[address] [address]Yspjc: [phone] Dtsnukwrxqcmkjemk ReportPatient Name: THAO BURKDOB: 1950 Age: 73 Sex: FAcct: [id number] MR#: [id number] Status: DIS IN Patient Location: [facility] FR.[address] [place] [address] Physician: Bela Richmond of Admission:07/28/24Test Reason : [...] for LVH, may be normal variant ( Carl product ) Possible Anterolateral infarct , age undetermined Abnormal ECG No previous ECGs available Confirmed by Delvis Norris ([id number]) on 08/07/2024 8:25:49 AM Referred By: Confirmed By:Delvis Norris<Electronically signed by Delvis Norris MD in OV>08/07/24 0826Dictated By: Delvis Norris MD DictatedDate/Time: 07/28/24 0135Transcribed By: Delvis Norris MDTranscribed Date/Time: 07/28/24 013Technologist: Report ID: [id number] To:Patient Name: THAO BRUK Acct: [id number] Unit: [id number] Page 1 Date:28-Jul-2024 Status:Completed Chest 1 ViewResult:[place] [address] Diagnostic Imaging ReportPatient Name: THAO BURK Acct: [id number]: 1950 Age: 73 Sex: F MR#: [id number] Date/Time: 07/27/24 2343 Admit Date/Time:Patient Status: REG ER Ordering Physician: Parvez Marc Location: [facility] Attending Physician:Accession Number(s): [id number]([id number]): Radiology XR Chest 1 ViewCPT Code(s): 91321XGXPXMUJ INDICATION: Chest Pain TECHNIQUE: XR Chest 1 [...] MD in OV>07/28/2418 Thank you for choosing [facility] Dictated By: Aroldo Garcia MD DictatedPatient Name: THAO BURK Acct: [id number] Unit: [id number] Page 1Date/Time: 07/28/2418Transcribed By: Aroldo Garcia MDTranscribed Date/Time: 07/28/2418Technologist: Deniz Mancera To: Report ID: [id number] -End of Report-Patient Name: THAO BURK Acct: [id number] Unit: [id number] Page 2 Date:28-Jul-2024 Status:Completed Results POC Glucose Profile Ordered On:30-Jul-2024 16:51 Glucose Point of Llyt687if/dL(High) Range:70mg/dL-110mg/dL POC Glucose Profile Ordered On:30-Jul-2024 07:54 Glucose Point of Napa21hm/dL(Normal) Range:70mg/dL-110mg/dL CBC w Automated Differential Ordered On:30-Jul-2024 04:48 Basophils Absolute-Auto0.01K/uL(Normal ) Range:0K/uL-0.04K/uL Basophils Percent-Auto0.3%(Normal) Range:0%-1% Eosinophils Absolute-Auto0.09K/uL(Normal ) Range:0K/uL-0.3K/uL Eosinophils Percent-Auto2.5%(Normal) Range:0%-6% Granulocytes Absolute-Auto2.50K/uL(Normal ) Range:1.4K/uL-7.7K/uL Granulocytes Percent-Auto70.9%(Normal) Range:43%-83.7% Smtfpxkexp17.9%(Low) Range:38.9% -44.7% Hemoglobin9.3g/dL(Low) Range:12. 4g/dL-16.2g/dL Immature Granulocyte s absolute0.03K/uL(Normal) Range:0K/uL-0.08K/uL Immature Granulocyte s percent0.8%(High) Range:0%-0.5% Lymphocytes Absolute-Auto0.56K/uL(Low) Range:0.8K/uL-2.9K/uL Lymphocytes Percent-Auto15.9%(Normal) Range:9.7%-44.3% Mean Corpuscular Rchnjndwdz30.7pg(Normal) Range:27.5pg-33.4pg Mean Corpuscular Hgb Ihyzobl69.1g/dL(Low) Range:32g/dL-36g/dL Mean Corpuscular Okuztn355.0fL(High) Range:81fL-96fL Monocytes Absolute-Auto0.34K/uL(Normal ) Range:0.2K/uL-0.8K/uL Monocytes Percent-Auto9.6%(Normal) Range:1.8%-12.7% Mean Platelet Lzgefs95.2fL(Normal) Range:8.5fL-12.1fL Nucleated RBC relati ve auto0.0%(Normal) Range:0%-0.2% Platelet Suxkw342O/uL(Low) Range :153K/uL-361K/uL Red Blood Cell Count3.03{M/uL}(Low) Range:4.1{M/uL}-5.3{M/uL} RDW Coefficient of Dmgcekgjl89.9%(High) Range:12%-14.8% White Blood Count3.5K/uL(Low) Range:4.8K/uL-10.8K/uL Nucleated RBC absolu te auto0.00K/uL(Normal) Range:0K/uL-0.01K/uL Renal Function Panel Ordered On:30-Jul-2024 05:13 Albumin3.2g/dL(Low) Range:3.4g /dL-5g/dL BUN/Creatinine Ratio3.0 Blood Urea Gmnxtbfl00se/dL(High) Range:7mg/dL-18mg/dL Calcium8.6mg/dL(Normal) Range:8. 5mg/dL-10.1mg/dL Djzmvzoy780zolr/L(Normal) Range: 98mmol/L-107mmol/L Carbon Kfrkigs63rgor/L(Normal) Range:21mmol/L-32mmol/L Anion Fyk3woid/L(Normal) Range:5 mmol/L-14mmol/L Glom Filtration Rate CKD-EPI 25mL/min Comments:EFFECTIVE JUN 2022, THE LABORATORY HAS CONVERTED TO [id number] CKD EPI CREATININE EQUATION FOR ADULTS THAT DOES NOTCONTAIN A RACE FACTOR TO CALCULATE AND REPORT THE eGFRRESULTS. Pdqgmtf82jk/dL(Normal) Range:74m g/dL-106mg/dL Potassium4.7mmol/L(Normal) Range :3.5mmol/L-5.1mmol/L Shuliy203mped/L(Normal) Range:13 6mmol/L-142mmol/L Phosphorus5.3mg/dL(High) Range:2 .5mg/dL-4.9mg/dL 30-Jul-2024 05:15 Creatinine7.71mg/dL( Critical High) Range:0.55mg/dL-1.02mg/dL Comments:Notification of Critical Value:YESTaken and Read back by:MARGOT VALLE/4THTime:0514 Date:07/30/24 By:[id number] Magnesium Level Ordered On:30-Jul-2024 05:13 Magnesium Level2.4mg/dL(Normal) Range:1.8mg/dL-2.4mg/dL POC Glucose Profile Ordered On:29-Jul-2024 21:31 Glucose Point of Amil35hl/dL(Normal) Range:70mg/dL-110mg/dL POC Glucose Profile Ordered On:29-Jul-2024 15:48 Glucose Point of Jqtt204fh/dL(High) Range:70mg/dL-110mg/dL POC Glucose Profile Ordered On:29-Jul-2024 12:23 Glucose Point of Afwe543ri/dL(Normal) Range:70mg/dL-110mg/dL POC Glucose Profile Ordered On:29-Jul-2024 12:23 Glucose Point of Xeej00yz/dL(Normal) Range:70mg/dL-110mg/dL Iron with TIBC Ordered On:29-Jul-2024 05:00 Qrzs28of/dL(Low) Range:50ug/dL -170ug/dL Iron Jmluvppuis50.2%{saturation}( Low) Range:25%{saturation}-55%{satu ration} Total Iron Binding Qgecjrql191xx/dL(Low) Range:250ug/dL-450ug/dL Renal Function Panel Ordered On:29-Jul-2024 05:11 Albumin3.4g/dL(Normal) Range:3 .4g/dL-5g/dL BUN/Creatinine Ratio2.6 Blood Urea Oonughvk81ft/dL(Normal) Range:7mg/dL-18mg/dL Calcium8.3mg/dL(Low) Range:8.5mg /dL-10.1mg/dL Aukmsqsc615dqzw/L(Normal) Range: 98mmol/L-107mmol/L Carbon Fvkowxw26rgpc/L(Normal) Range:21mmol/L-32mmol/L Creatinine5.79mg/dL(High) Range: 0.55mg/dL-1.02mg/dL Anion Rye6gssu/L(Normal) Range:5 mmol/L-14mmol/L Glom Filtration Rate CKD-EPI 27mL/min Comments:EFFECTIVE JUN 2022, THE LABORATORY HAS CONVERTED TO [id number] CKD EPI CREATININE EQUATION FOR ADULTS THAT DOES NOTCONTAIN A RACE FACTOR TO CALCULATE AND REPORT THE eGFRRESULTS. Gdhzcwh80hm/dL(Normal) Range:74m g/dL-106mg/dL Potassium4.5mmol/L(Normal) Range :3.5mmol/L-5.1mmol/L Hzppjr448cavj/L(Normal) Range:13 6mmol/L-142mmol/L Phosphorus3.8mg/dL(Normal) Range :2.5mg/dL-4.9mg/dL Magnesium Level Ordered On:29-Jul-2024 05:11 Magnesium Level2.5mg/dL(High) Range:1.8mg/dL-2.4mg/dL CBC w Automated Differential Ordered On:29-Jul-2024 04:49 White Blood Count4.4K/uL(Low) Range:4.8K/uL-10.8K/uL Red Blood Cell Count2.83{M/uL}(Low) Range:4.1{M/uL}-5.3{M/uL} Hemoglobin8.7g/dL(Low) Range:12. 4g/dL-16.2g/dL Jkaobwwced35.4%(Low) Range:38.9% -44.7% Mean Corpuscular Mdtwbe478.9fL(High) Range:81fL-96fL Mean Corpuscular Arabqotzyn05.7pg(Normal) Range:27.5pg-33.4pg Mean Corpuscular Hgb Xsquyrh14.6g/dL(Low) Range:32g/dL-36g/dL RDW Coefficient of Xnpkmiqea16.9%(High) Range:12%-14.8% Platelet Gdvxi878Z/uL(Low) Range :153K/uL-361K/uL Mean Platelet Volume9.9fL(Normal) Range:8.5fL-12.1fL Granulocytes [...] Profile Ordered On:28-Jul-2024 20:36 Glucose Point of Sfqb55fh/dL(Normal) Range:70mg/dL-110mg/dL POC Glucose Profile Ordered On:28-Jul-2024 15:46 Glucose Point of Prbd292ms/dL(High) Range:70mg/dL-110mg/dL POC Glucose Profile Ordered On:28-Jul-2024 11:01 Glucose Point of Waqu089hp/dL(High) Range:70mg/dL-110mg/dL POC Glucose Profile Ordered On:28-Jul-2024 06:42 Glucose Point of Btru874kx/dL(Normal) Range:70mg/dL-110mg/dL CBC w Automated Differential Ordered On:28-Jul-2024 06:46 White Blood Count4.5K/uL(Low) Range:4.8K/uL-10.8K/uL Red Blood Cell Count2.74{M/uL}(Low) Range:4.1{M/uL}-5.3{M/uL} Hemoglobin8.4g/dL(Low) Range:12. 4g/dL-16.2g/dL Cyubocmkrf73.8%(Low) Range:38.9% -44.7% Mean Corpuscular Lnufec824.1fL(High) Range:81fL-96fL Mean Corpuscular Gspixlcoyj13.7pg(Normal) Range:27.5pg-33.4pg Mean Corpuscular Hgb Mcjrruy80.2g/dL(Low) Range:32g/dL-36g/dL RDW Coefficient of Dkncerfyi95.4%(High) Range:12%-14.8% Platelet Pzguy029W/uL(Low) Range :153K/uL-361K/uL Mean Platelet Vpuwea31.4fL(Normal) Range:8.5fL-12.1fL Granulocytes Percent-Auto73.0%(Normal) Range:43%-83.7% Immature Granulocyte s [...] Hemoglobin (A1C) Ordered On:28-Jul-2024 07:08 Estimated Average Cmudmut380.54 Glycosylated Hemoglobin5.2%(Normal) Range:4.5%-6.2% Renal Function Panel Ordered On:28-Jul-2024 07:59 Albumin3.4g/dL(Normal) Range:3 .4g/dL-5g/dL BUN/Creatinine Ratio3.2 Blood Urea Cwbvtuvp74iq/dL(High) Range:7mg/dL-18mg/dL Calcium8.5mg/dL(Normal) Range:8. 5mg/dL-10.1mg/dL Gcwfiybd588vfyj/L(Normal) Range: 98mmol/L-107mmol/L Carbon Nhkwhdh60efmn/L(Normal) Range:21mmol/L-32mmol/L Anion Eds85pgyr/L(Normal) Range: 5mmol/L-14mmol/L Glom Filtration Rate CKD-EPI 25mL/min Comments:EFFECTIVE JUN 2022, THE LABORATORY HAS CONVERTED TO [id number] CKD EPI CREATININE EQUATION FOR ADULTS THAT DOES NOTCONTAIN A RACE FACTOR TO CALCULATE AND REPORT THE eGFRRESULTS. Tncmape879vq/dL(High) Range:74mg /dL-106mg/dL Potassium5.4mmol/L(High) Range:3 .5mmol/L-5.1mmol/L Lbcwmm096uyct/L(Normal) Range:13 6mmol/L-142mmol/L Phosphorus5.1mg/dL(High) Range:2 .5mg/dL-4.9mg/dL 28-Jul-2024 08:12 Creatinine8.22mg/dL( Critical High) Range:0.55mg/dL-1.02mg/dL Comments:Notification of Critical Value:Taken and Read back by: CORI BRIZUELA)Time:0811 Date:07/28/24 By:[id number] Magnesium Level Ordered On:28-Jul-2024 07:59 Magnesium Level3.3mg/dL(High) Range:1.8mg/dL-2.4mg/dL Lipid Panel Ordered On:28-Jul-2024 07:59 Eqbbovnlfll286zf/dL(Normal) Ra nge:0mg/dL-199mg/dL Cholesterol/HDL Ratio1.7 LDL Srcbrjtxtmj52jl/dL(Normal) Range:0mg/dL-99mg/dL LDL/HDL Ratio0.5 Okgcjaupmiirq97aq/dL(Normal) Ran ge:0mg/dL-149mg/dL VLDL Dvdbbsuiwxb47cy/dL(Normal) Range:5mg/dL-40mg/dL 28-Jul-2024 08:11 HDL Wpnbjqdlmgj58ol/dL(High) R aviva:40mg/dL-60mg/dL Comments:HDL Cholesterol values greater than 59 mg/dl are associatedwith reduced cardiac risk. Non HDL CholesterolTNP Comments: Unable to calculate. Triglycerides level below calculationthreshold. TSH with T4 Reflex Ordered On:28-Jul-2024 07:59 Thyroid Stimulating Hormone2.875m[IU]/mL(Normal) Range:0.358m[IU]/mL-3.74m[IU]/ mL Phosphorus Ordered On:28-Jul-2024 08:24 Phosphorus5.1mg/dL(High) Range :2.5mg/dL-4.9mg/dL Hepatitis B Surface Ag Pnl Ordered On:30-Jul-2024 05:10 Hepatitis B Surface AntigenNegative Range:Negative Comments:Performed At: [address] [id number] Vincent PhD Ph:[phone] Hepatitis C Antibody Ordered On:28-Jul-2024 05:10 Hepatitis C Antibody Non Reactive Range:Non Reactive Comments:HCV antibody alone does not differentiate betweenpreviously resolved infection and active infection.Equivocal and Reactive HCV antibody results should befollowed up with an HCV RNA test to support the diagnosisof active HCV infection. Troponin I High Sensitivity Ordered On:28-Jul-20 01:52 Troponin I High Uqkmatcclen05uv/L(Normal) Range:0ng/L-51ng/L Comments:If the repeat Troponin is rising [...] Blood Cell Count2.79{M/uL}(Low) Range:4.1{M/uL}-5.3{M/uL} Hemoglobin8.6g/dL(Low) Range:12. 4g/dL-16.2g/dL Kudpqacfxm93.1%(Low) Range:38.9% -44.7% Mean Corpuscular Nmqwtg018.3fL(High) Range:81fL-96fL Mean Corpuscular Wmnmsvkhoh18.8pg(Normal) Range:27.5pg-33.4pg Mean Corpuscular Hgb Aobcuny33.6g/dL(Low) Range:32g/dL-36g/dL RDW Coefficient of Xkrmqivdd53.3%(High) Range:12%-14.8% Platelet Qtmsu060G/uL(Low) Range :153K/uL-361K/uL Mean Platelet Volume9.8fL(Normal) Range:8.5fL-12.1fL Granulocytes [...] Range:0K/uL-0.01K/uL Comprehensive Metabolic Panel Ordered On:27-Jul-2024 00:05 Ojknbo017wzhe/L(High) Range:13 6mmol/L-142mmol/L Zhtqdjie104zkkj/L(Normal) Range: 98mmol/L-107mmol/L Carbon Zkcuyuy79netb/L(Normal) Range:21mmol/L-32mmol/L Anion Fzp6ythc/L(Normal) Range:5 mmol/L-14mmol/L Blood Urea Fcwnutnw25mi/dL(High) Range:7mg/dL-18mg/dL BUN/Creatinine Ratio3.1 Xkuiikx034kn/dL(High) Range:74mg /dL-106mg/dL Calcium8.7mg/dL(Normal) Range:8. 5mg/dL-10.1mg/dL Bilirubin Total1.0mg/dL(Normal) Range:0.2mg/dL-1mg/dL Aspartate Aminotrans AST/SGOT18[IU]/L(Normal) Range:15[IU]/L-37[IU]/L Alanine Aminotrans ALT/SGPT17[IU]/L(Normal) Range:14[IU]/L-59[IU]/L Total Protein7.0g/dL(Normal) Ran ge:6.4g/dL-8.2g/dL Albumin3.7g/dL(Normal) Range:3.4 g/dL-5g/dL Globulin3.3g/dL Albumin/Globulin Ratio1.1 Alkaline Phosphatase Gyxtc593[IU]/L(High) Range:46[IU]/L-116[IU]/L Glom Filtration Rate CKD-EPI 25mL/min Comments:EFFECTIVE JUN 2022, THE LABORATORY HAS CONVERTED TO [id number] CKD EPI CREATININE EQUATION FOR ADULTS THAT DOES NOTCONTAIN A RACE FACTOR TO CALCULATE AND REPORT THE eGFRRESULTS. 28-Jul-2024 00:15 Potassium6.1mmol/L(C ritical High) Range:3.5mmol/L-5.1mmol/L Comments:Notification of Critical Value:Taken and Read back by:GORDON RONDONTime:13 Date:07/28/24 By:[id number] Creatinine8.03mg/dL( Critical High) Range:0.55mg/dL-1.02mg/dL Comments:Notification of Critical Value:Taken and Read back by:GORDON RONDONTime:13 Date:07/28/24 By:[id number] Prothrombin Time Ordered On:27-Jul-2024 00:04 PT Xnpeeor53.8s(Normal) Range: 9.3s-12.1s International Normal Ratio1.03 Comments:Recommended Theraputic Range:2.0-3.0 For Standard Oral Anticoagulant Therapy2.5-3.5 For High Dose Anticoagulant TherapyThe INR may not be reliable for patients who have been oncoumadin therapy for less than six weeks. Troponin I High Sensitivity Ordered On:27-Jul-20 00:05 Troponin I High Acykhgyxzqn88ly/L(Normal) Range:0ng/L-51ng/L Comments:If the repeat Troponin is rising [...] Peptide Ordered On:27-Jul-2024 00:05 NT-pro B Natriuretic Vlfnzgs66248hb/mL(High) Range:0pg/mL-125pg/mL Vital Signs 30-Jul-2024 16:48 Temp37.1c O2 HPL397% Pulse69 Respiratory Rate16 BP Yotnjzfl968bl[Hg] BP Cgkqtsthk37mu[Hg] 30-Jul-2024 13:05 Temp36.4c Pulse72 Respiratory Rate18 O2 KHY165% BP Emausbdv13me[Hg] BP Jcwxpghky95wz[Hg] 30-Jul-2024 09:15 Temp36.6c Pulse71 Respiratory Rate18 O2 SYR009% BP Oxpzvpuy78rg[Hg] BP Qwakezcfu37dt[Hg] 30-Jul-2024 07:59 Temp36.8c O2 OJQ722% Pulse70 Respiratory Rate14 BP Ixzqhvny036qw[Hg] BP Odqlxtveb23ks[Hg] 30-Jul-2024 03:56 Temp36.6c O2 YRQ946% Pulse70 Respiratory Rate14 BP Bqdrjxoy687gy[Hg] BP Rrrinslew51to[Hg] 29-Jul-2024 23:36 Temp36.6c O2 SAT92% Pulse70 Respiratory Rate16 BP Insjqvig64xh[Hg] BP Zvkvmdyzt72ov[Hg] 29-Jul-2024 20:30 Temp36.5c O2 SAT91% Pulse62 Respiratory Rate16 BP Jjhlxizr695ff[Hg] BP Mpbxxhfmn59sw[Hg] 29-Jul-2024 15:39 Temp36.6c O2 SBW878% Pulse69 Respiratory Rate14 BP Ghhzsvyd025fq[Hg] BP Khpjehhwi35mc[Hg] 29-Jul-2024 12:04 Temp36.4c O2 PYB802% Pulse70 Respiratory Rate14 BP Htyhrsoq55hj[Hg] BP Pgqnewldc50wt[Hg] 29-Jul-2024 07:35 Temp36.5c O2 ZHF264% Pulse68 Respiratory Rate14 BP Urcsbhem411ws[Hg] BP Qvatgqbfc75do[Hg] 29-Jul-2024 04:51 Temp36.6c O2 FZV945% Pulse70 Respiratory Rate16 BP Qqyzmwqg875ul[Hg] BP Dlcflbedk75rv[Hg] 29-Jul-2024 00:18 Temp36.8c O2 SAT96% Pulse70 Respiratory Rate18 BP Bkpubupf628zn[Hg] BP Ekrntnhmy56pt[Hg] 28-Jul-2024 19:54 Temp36.4c O2 SAT98% Pulse92 Respiratory Rate16 BP Ypnzgfzm771io[Hg] BP Mqfozmmve23zv[Hg] 28-Jul-2024 19:20 Agqw20f Pulse72 Respiratory Rate15 O2 MBS020% BP Nvxfddix982dv[Hg] BP Dlacjxdob71pe[Hg] 28-Jul-2024 15:50 Temp36.2c Pulse72 Respiratory Rate16 O2 SUL828% BP Gfjudsqw079iz[Hg] BP Mkxzmizic74qh[Hg] 28-Jul-2024 10:59 Temp36.3c O2 HWF329% Pulse66 Respiratory Rate16 BP Axkyavkw574pu[Hg] BP Qpdwvtsdd64qs[Hg] 28-Jul-2024 07:18 O2 IJD253% Owcgd487 Respiratory Rate18 BP Poyqlhlj930sk[Hg] BP Qedlbbzsx30nn[Hg] 28-Jul-2024 05:20 Temp36.4c O2 JPY649% Ceaqq493 Respiratory Rate18 BP Mpihmryc415bw[Hg] BP Czjekxggt07pe[Hg] 28-Jul-2024 02:51 BMI30.7kg/m2 [id number][ft_us] Zwpypv913.6298919ev 28-Jul-2024 02:50 Temp36.3c O2 SAT87% Pulse73 Respiratory Rate14 BP Nxkijdsw049bf[Hg] BP Qskjjiwek47ir[Hg] 28-Jul-2024 02:20 O2 SAT99% Pulse69 Respiratory Rate27 28-Jul-2024 02:16 BP Cbhgccpp363vk[Hg] BP Lclgytlai69rw[Hg] 28-Jul-2024 02:16 O2 SAT95% Pulse69 28-Jul-2024 02:10 O2 SAT99% Pulse69 28-Jul-2024 02:00 O2 SAT99% Pulse69 Respiratory Rate22 28-Jul-2024 02:00 BP Xkqlgelt351zw[Hg] BP Wvryjzycp73bx[Hg] 28-Jul-2024 01:50 O2 OIP364% Pulse69 Respiratory Rate23 28-Jul-2024 01:45 O2 SAT99% Pulse69 Respiratory Rate15 28-Jul-2024 01:45 BP Nvkfippi209dd[Hg] BP Bwbiozwbh86tg[Hg] 28-Jul-2024 01:43 O2 JSM352% 28-Jul-2024 01:40 O2 SAT99% Pulse70 28-Jul-2024 01:40 BP Dcitxpju594zs[Hg] BP Scnszgkwf43jo[Hg] 28-Jul-2024 01:30 O2 SLL590% Pulse69 Respiratory Rate26 28-Jul-2024 01:20 Pulse69 Respiratory Rate26 28-Jul-2024 01:10 Pulse69 Respiratory Rate26 28-Jul-2024 01:00 Pulse69 Respiratory Rate23 28-Jul-2024 01:00 BP Kdphuhic170rh[Hg] BP Uufxdpdxf77ok[Hg] 28-Jul-2024 00:50 Pulse69 Respiratory Rate21 28-Jul-2024 00:45 BP Jlqhavah432an[Hg] BP Rytshjkgj42hp[Hg] 28-Jul-2024 00:45 O2 SAT99% Pulse69 Respiratory Rate22 28-Jul-2024 00:40 O2 SAT99% Pulse69 Respiratory Rate24 28-Jul-2024 00:30 BP Wgeetsnd263lr[Hg] BP Jvuebsnoj01di[Hg] 28-Jul-2024 00:30 O2 SAT96% Pulse69 Respiratory Rate31 28-Jul-2024 00:20 O2 DLK745% Pulse69 Respiratory Rate23 28-Jul-2024 00:15 O2 SAT99% Pulse69 Respiratory Rate23 28-Jul-2024 00:15 BP Ftjkrotb645mf[Hg] BP Ylvdssidi32vf[Hg] 28-Jul-2024 00:10 O2 SAT99% Pulse69 Respiratory Rate23 28-Jul-2024 O2 CFR836% Pulse69 Respiratory Rate24 28-Jul-2024 BP Prsjxcjn549yu[Hg] BP Rocmeefpq11lm[Hg] 27-Jul-2024 23:50 O2 IQA524% Pulse69 27-Jul-2024 23:48 O2 GSS606% 27-Jul-2024 23:45 O2 WZT721% Pulse69 27-Jul-2024 23:45 BP Uitahpwn524qo[Hg] BP Fcvnheivt25bz[Hg] 27-Jul-2024 23:43 O2 DPH615% O2 QEO454% 27-Jul-2024 23:40 O2 OVU028% Pulse69 Respiratory Rate24 27-Jul-2024 23:37 O2 TFG679% Pulse69 Respiratory Rate21 BP Hvfiofpk833ea[Hg] BP Jucovydjb08rk[Hg] 27-Jul-2024 23:31 BP Stcsgbek140vg[Hg] BP Blhklfeet73qa[Hg] 27-Jul-2024 23:31 O2 SAT96% Pulse69 27-Jul-2024 23:30 BMI29.9kg/m2 Temp36.6c O2 ULJ461% Pulse69 Respiratory Rate18 BP Pvvwkuqp599qo[Hg] BP Sldcuhyjg46gw[Hg] Height5.5[ft_us] Ubbudp516.2566330ky Encounters Inpatient encounter Encounter Reason:CP/SOA Encounter Diagnosis:[id number],END STAGE RENAL DISEASE,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/ESRD,FLUID OVERLOAD, UNSPECIFIED,HYPERLIPIDEMIA, UNSPECIFIED,TYPE 2 DIABETES MELLITUS W DIABETIC CHRONIC KIDNEY DISEASE,IRON DEFICIENCY ANEMIA, UNSPECIFIED,HEART FAILURE, UNSPECIFIED,ALLERGY STATUS TO OTHER ANTIBIOTIC AGENTS STATUS,ACQUIRED ABSENCE OF OTHER SPECIFIED PARTS OF DIGESTIVE TRACT,PRESENCE OF CARDIAC PACEMAKER,MISC DISORDERS OF NUTRITION,METABOLISM,FLUIDS/ELECTROLYTES W ASSISTED,HYPERKALEMIA 28-Jul-2024 [id number] 18:03 Vladimir Aguilera DO (Attending) [place] Discharge Disposition:Discharged to home or self care (routine discharge) ? ? ? Edita Scruggs-31-Jul-2024 [address] [place], [place] [address]Phone: [employer] Management Rpt from MIDASPatient Name: THAO BURK CUSTARDDOB: 1950 Age: 73 Sex: FAcct: [id number] MR#: [id number] Status: DIS IN Patient Location: [facility]. [facility] Physician:Date of Admission:07/28/24 ----- HCM SUPPORT SERVICES HCM Support Services User Vinse: Discharge Disposition: 06 - Home Health Date Entered: 07/28/2024 Service Type: *Care Coordination Truck Sales Manager: [facility] [place] Worklist Date: 07/31/2024 Payer: [employer] MEDICARE HMO or PPO Comments: --- 07/29/2024 10:27 AM by Nestor Vasquez --- BRITTANY sent to [facility] per pt request. They have accepted pt through [employer]. --- 07/28/2024 04:54 PM by Reyna Boswell --- P: Continued Stay review A: Clinical problems/barriers to discharge: Patient is from [facility], does dialysis on Mon. 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 PCP is [facility]. States she independent in ADL's. Uses [facility] prn, her dme co is in [facility]. States she has [facility]. Date / Time: 07/28/2024 3:30 PM Evaluated by: Reyna Boswell Updated by: HIS TU ([id number]) - 07/31/2024 02:55 PM Dicta soledad By: Edita Boswell DictatedDate/Time: 07/31/241454Transcribed By: Edita Boswell TranscribedDate/Time: 07/31/241454Technologist: Report ID: [id number] To:Patient Name: THAO BURK Acct: [id number] Unit: [id number] Page 3 Plan of Treatment Future Tests Future scheduled test information is unavailable Pending Tests Pending diagnostic test information is unavailable Future Visits Future appointment information is unavailable Referrals to Other Providers Reason for Referral Referral Start Date Provider Provider Contact Information Provider Address Wale Dwyer MD Work Phone: [phone] [facility] [address] [place] [phone] No Primary or Family Physician Future Procedures [...]
[2025-02-08 21:41] VITALS: BP 120/92; PULSE 131; RESP 29; TEMP 36.3; O2SAT 94; BMI 32.8
--- NOTE | 2025-02-08 21:42 | XR_ITS ---
PROCEDURE INFORMATION: Exam: XR Right Foot Exam date and time: 02/08/2025 10:03 PM Age: 74 years old Clinical indication: Injury or trauma; Fall; Blunt trauma; Foot; Right TECHNIQUE: Imaging protocol: Radiologic exam of the right foot. Views: 3 or more views. 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 No acute fracture. Soft tissues: Normal. Other findings: Extensive small vessel vascular calcifications in a pattern often seen with diabetes or chronic renal failure. IMPRESSION: 1. No evidence for acute fracture. 2. 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 3. Extensive small vessel vascular calcifications in a pattern often seen with diabetes or chronic renal failure.
--- NOTE | 2025-02-08 21:44 | ECG_ITS ---
APPROVED REPORT Exam: Resting ECG HR:129 bpm ECG Measurements Heart Rate 129 AXES SC 188 P -76 QRSd 145 QRS -74 QT 366 T 107 QTc 442 Conclusion ECTOPIC ATRIAL TACHYCARDIA WITH OCCASIONAL VENTRICULAR PREMATURE COMPLEXES LEFT AXIS DEVIATION [QRS AXIS < -30] LEFT BUNDLE BRANCH BLOCK [120+ ms QRS DURATION, 80+ ms Q/S IN V1/V2, 85+ ms R IN I/aVL/V5/V6] ABNORMAL ECG UNCONFIRMED REPORT Electronically signed by : KENN CAZARES, 02/10/2025 03:48:07
--- NOTE | 2025-02-08 21:49 | XR_ITS ---
PROCEDURE INFORMATION: Exam: XR Chest Exam date and time: 02/08/2025 10:01 PM Age: 74 years old Clinical indication: Shortness of breath; Additional info: Sepsis TECHNIQUE: Imaging protocol: Radiologic exam of the chest. Views: 1 view. COMPARISON: CR XR CHEST PORTABLE 01/06/2025 7:08 AM FINDINGS: Tubes, catheters and devices: Dual lead AICD noted. Lungs: Mild bilateral perihilar and interstitial edema identified. Pleural spaces: Tiny right pleural effusion. Heart/Mediastinum: Moderate enlargement of the cardiac silhouette noted. Bones/joints: Unremarkable. IMPRESSION: 1. Moderate enlargement of the cardiac silhouette noted. 2. Mild bilateral perihilar and interstitial edema identified. Tiny right pleural effusion.
--- NOTE | 2025-02-08 21:49 | [facility].EDGENADL ---
Discharge Plan Disposition Patient Disposition: Xfer Other Chief Complaint: PAIN Prescriptions Prescriptions: No Action atorvastatin 20 mg tablet 20 mg PO HS Qty: 30 5RF acyclovir 5 % cream 1 applic topical 5XD 4 Days Qty: 5 0RF Rx Instructions: apply to blister area as directed prednisone 10 mg tablet 5 mg PO DAILY acetaminophen [Tylenol] 325 mg capsule 325 mg PO QID PRN (Reason: Mild Pain) insulin aspart U-100 100 unit/mL (3 mL) insulin pen 4 unit SQ ACHS insulin glargine 100 unit/mL (3 mL) insulin pen 6 unit SQ DAILY melatonin 5 mg capsule 5 mg PO HS omeprazole 40 mg capsule,delayed release(DR/EC) 40 mg PO DAILY Patient Comments: TAKE 1 CAPSULE BY MOUTH ONCE DAILY. DO NOT CRUSH OR CHEW furosemide 80 mg tablet 80 mg PO BID Patient Comments: TAKE 1 TABLET BY MOUTH TWICE DAILY mupirocin 2 % ointment 1 applic topical BID 14 Days Qty: 15 0RF Kerasal Fungal Nail Renewal Solution 1 ml topical BID 28 Days Qty: 10 3RF bisoprolol fumarate 10 mg tablet 10 mg PO DAILY Qty: 31 11RF levofloxacin 500 mg tablet 500 mg PO DAILY 7 Days Qty: 7 0RF Clenpiq 10 mg-3.5 gram- 12 gram/175 mL solution 175 ml PO DAILY Qty: 350 0RF Rx Instructions: take first dose at 5-9PM evening before colonoscopy; 2nd dose the next day approximately 5 hrs before colonoscopy folic acid 1 MG tablet 1 mg PO DAILY lactulose 10 GM/15 ML solution 20 g PO TID sevelamer carbonate 800 MG tablet 1,600 mg PO TID rifaximin 550 mg tablet 550 mg PO BID albuterol sulfate 90 mcg/actuation HFA aerosol inhaler 4 inh inhalation Q4H PRN (Reason: shortness of breath or wheezing) Qty: 8.5 0RF Rx Instructions: 4 puffs every 4 hours for 48 hours then as needed for shortness of breath or wheezing following pantoprazole 40 mg tablet,delayed release (DR/EC) 40 mg PO BID Patient Comments: TAKE 1 TABLET BY MOUTH TWICE DAILY 30 MINUTES BEFORE BREAKFAST AND DINNER methocarbamol 750 mg tablet 750 mg PO QID 10 Days Qty: 40 0RF lidocaine 5 % adhesive patch,medicated 1 patch topical DAILY Qty: 15 0RF Rx Instructions: leave on most painful area for up to 12 hrs doxycycline hyclate 100 mg capsule 100 mg PO BID 10 Days Qty: 20 0RF levofloxacin 250 mg tablet 250 mg PO .Every 48 hours Qty: 7 0RF Referrals Follow up/Referrals: Aldo Juarez MD [Primary Care Provider] - See instructions Clinical Impressions Clinical Impression: Sepsis, Osteomyelitis Print Language Print Language: Kinyarwanda Discharge ED Provider: Steven Forman General Adult HPI <Starla Fisher (ED), CLINICAL NURSING INTERN - Last Filed: 02/08/25 22:02> General Chief complaint: PAIN Stated complaint: 4th toes on left foot ? infected Time Seen by Provider: 02/08/25 21:28 History of Present Illness HPI narrative: This is a 74-year-old female who presents to the ED today for complaint of possible infection to her left foot 3rd and 4th toes. Her fourth toe was removed by [facility] about a month and a half ago. She does not have any appointment with them until February 19. She says she has noticed the drainage become worse where they removed the 1 toe but this toe next to it, the third toe has also become infected, draining grayish-yellow drainage as well as her amputated area. Patient does dialysis Monday and Monday. She is concerned about the infection. Patient also arrives to the ED with a low-grade temp 99.9 and tachycardia at 123. Patient has long history of chronic A-fib, diabetes, vascular disease, several skin ulcers, CHF, CKD. Related Data Home Medications ?Medication ?Instructions ?Recorded ?Confirmed folic acid 1 mg tablet 1 mg PO DAILY Supplement 11/29/20 01/30/25 lactulose 10 gram/15 mL oral 20 g PO TID liver 11/29/20 01/30/25 solution sevelamer carbonate 800 mg tablet 1,600 mg PO TID Kidney failure 11/29/20 01/30/25 acetaminophen 325 mg capsule 325 mg PO QID PRN Mild Pain 03/23/21 01/30/25 (Tylenol) insulin aspart U-100 100 unit/mL 4 unit SQ ACHS Diabetes 03/23/21 01/30/25 (3 mL) subcutaneous pen insulin glargine 100 unit/mL (3 6 unit SQ DAILY Diabetes 03/23/21 01/30/25 mL) subcutaneous pen melatonin 5 mg capsule 5 mg PO HS Sleep 03/23/21 01/30/25 prednisone 10 mg tablet 5 mg PO DAILY . 03/23/21 01/30/25 rifaximin 550 mg tablet 550 mg PO BID unk 03/23/21 01/30/25 furosemide 80 mg tablet 80 mg PO BID Fluid 10/12/22 01/30/25 omeprazole 40 mg capsule,delayed 40 mg PO DAILY GERD 10/12/22 01/30/25 release pantoprazole 40 mg tablet,delayed 40 mg PO BID 09/11/23 01/30/25 release Previous Rx's ?Medication ?Instructions ?Recorded atorvastatin 20 mg tablet 20 mg PO HS Cholesterol #30 tabs 10/26/22 albuterol sulfate 90 mcg/actuation 4 inh inhalation Q4H PRN shortness 07/25/23 aerosol inhaler of breath or wheezing #8.5 grams bisoprolol fumarate 10 mg tablet 10 mg PO DAILY #31 tabs 09/18/23 mupirocin 2 % topical ointment 1 applic topical BID infection 14 11/27/24 days #15 grams urea-lactic acid-propylene glycol 1 ml topical BID 4 weeks #10 mL 11/27/24 topical solution (Kerasal Fungal Nail Renewal topical solution) levofloxacin 500 mg tablet 500 mg PO DAILY infection 7 days 12/02/24 #7 tabs lidocaine 5 % topical patch 1 patch topical DAILY #15 ea 12/05/24 methocarbamol 750 mg tablet 750 mg PO QID 10 days #40 tabs 12/05/24 sod picosulf 10 mg-magnes 3.5 175 ml PO DAILY 2 doses #350 mL 12/27/24 gram-citric 12 gram/175 mL oral solution (Clenpiq) doxycycline hyclate 100 mg capsule 100 mg PO BID 10 days #20 caps 01/03/25 levofloxacin 250 mg tablet 250 mg PO .Every 48 hours #7 tabs 01/03/25 acyclovir 5 % topical cream 1 applic topical 5XD 4 days #5 01/30/25 grams Allergies Allergy/AdvReac Type Severity Reaction Status Date / Time ceftriaxone Allergy Severe Anaphylaxis Verified 01/30/25 13:36 [facility] <Starla Fisher (ED), CLINICAL NURSING INTERN - Last Filed: 02/08/25 22:02> PFS Disclaimer: The information contained in this section may have been updated after the patient was seen, as this information can be updated by other users. 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 Diabetes Abnormal result of cardiovascular function study Typical angina Automatic implantable cardioverter-defibrillator in situ Chronic a-fib Surgical History History of cardiac cath Social History Smoking Status: Unknown if ever smoked second hand exposure: No alcohol intake: never substance use type: other current occupational status: disabled Travel in the last 8 weeks: None household members: spouse housing: house current occupational exposures/hazards: No caffeine: No Have you lived/traveled outside [place] in past 30 days?: No Contact w/someone who lives/traveled outside US past 30 days?: No Exposure to someone with infectious disease in past 14 days?: No Do you have a fever (greater than 100.4 F or 38 C)?: No Have you tested positive for COVID-19: No Exposed to someone with COVID-19 in past 14 days?: No Do you have a sore throat?: No Do you have a cough?: No Do you have any weakness?: No Do you have any diarrhea?: No Are you experiencing any unusual bleeding?: No Do you have any muscle aches/pain?: No Do you have any abdominal pain?: No Are you experiencing loss of taste or smell?: No Other Medical History Have you received the Flu Vaccine for this season: No Have you received the Pneumonia Vaccine: Yes <Starla Fisher (ED), CLINICAL NURSING INTERN - Last Filed: 02/08/25 22:02> ROS Obtained: Yes Systems reviewed as appropriate & no additional complaints except as documented Constitutional Constitutional: Reports as per HPI Physical Exam <Starla Fisher (ED), CLINICAL NURSING INTERN - Last Filed: 02/08/25 22:02> General General appearance: alert Head Head exam: atraumatic Eye Eye exam: Present normal appearance and PERRL Respiratory Respiratory exam: Present wheezes Cardiovascular Cardiovascular exam: Present tachycardia and irregular rhythm Abdominal Exam Abdominal exam: Present soft Extremities Exam Extremities exam: Present tenderness, cyanosis and other (Decreased capillary refill, cool to touch extremities, all toes have pale color, great toe on right foot has necrotic area on the bottom. Necrotic 3rd and 4th toe on left foot) Neurological Exam Neurological exam: Present alert and other (Oriented x 3 for me, nurse stated disoriented to time for her) Psychiatric Psychiatric exam: Present normal affect Skin Skin exam: Present warm, pallor and other (Patient's lower extremities with pale appearance, necrotic tissue to amputated toe on left foot, necrotic tissue to third toe on left foot along with black skin on the bottom of the great toe on the right foot) Medical Decision Making <Starla Fisher (ED), CLINICAL NURSING INTERN - Last Filed: 02/08/25 22:02> Medical Records Screening: Per USPSTF and CDC recommendations, given the prevalence of disease in our region, it is our hospital?s policy to screen for HIV and viral Hepatitis for all patients aged 18 and over and those with ongoing risk factors. Rudy Inquiry Pt receiving controlled substance: No Rudy was queried for this patient: No Vital Signs: 02/08/25 21:41 Temperature 97.3 F L Temperature Source Oral Pulse Rate [Right Radial] 131 H Respiratory Rate 29 H Blood Pressure [Left Arm] 120/92 H Blood Pressure Mean [Left Arm] 101 Blood Pressure Source [Left Arm] Automatic Cuff Blood Pressure Position [Left Arm] Sitting 02 Sat by Pulse Oximetry 94 L Oxygen Delivery Method Room Air Lab Data Lab Results 02/08/25 21:45: VBG pH 7.50 H, VBG pCO2 36.0, VBG pO2 157.1 H, VBG HCO3 27.6, VBG Total CO2 28.7 H, VBG O2 Saturation 99.2 H, VBG Base Excess 4.5 H, VBG Lactic Acid 2.6 H 02/08/25 22:30: Chlamy pneumoniae PCR Not detected, Adenovirus (PCR) Not detected, B. pertussis DNA (PCR) Not detected, Coronavirus OC43 (PCR) Not detected, Coronavirus HKU1 (PCR) Not detected, Coronavirus 229E (PCR) Not detected, SARS-CoV-2 (PCR) Not detected, Coronavirus NL63 (PCR) Not detected, Human Metapneumovir PCR Not detected, Influenza A (H1) PCR Not detected, Influ A (H1N1/09) PCR Not detected, Influenza A (H3) PCR Not detected, Influenza Type A (PCR) Not detected, Influenza Type B (PCR) Not detected, M. pneumoniae (PCR) Not detected, Parainfluenza 1 (PCR) Not detected, Parainfluenza 2 (PCR) Not detected, Parainfluenza 3 (PCR) Not detected, Parainfluenza 4 (PCR) Not detected, RSV (PCR) Not detected, Entero/Rhino (PCR) Not detected 02/08/25 22:50: WBC 10.4, RBC 3.45 L, Hgb 9.7 L, Hct 31.2 L, MCV 90.4, MCH 28.1, MCHC 31.1 L, RDW 16.7, Plt Count 253, MPV 9.6, Neut % (Auto) 81.8 H, Lymph % (Auto) 10.4, [place] % (Auto) 6.9, Eos % (Auto) 0.1, Baso % (Auto) 0.2, Neut # (Auto) 8.5 H, Lymph # (Auto) 1.1, [place] # (Auto) 0.7, Eos # (Auto) 0.0, Baso # (Auto) 0.0, ESR 20, PT 12.7 H, INR 1.15 H, APTT 31.2 H, Sodium 136, Potassium 2.9 L*, Chloride 98, Carbon Dioxide 30, Anion Gap 10.9, BUN 14, Creatinine 3.20 H, Estimated Creat Clear 21, Estimated GFR 14 L*, Est GFR ( Amer) 17 L*, Glucose 115 H, Lactate 2.3 H, Calcium 8.7, Total Bilirubin 1.9 H, AST 24, ALT 19, Alkaline Phosphatase 215 H, Total Creatine Kinase 30, C-Reactive Protein 153.5 H, NT-Pro-B Natriuret Pep > 62361 H, Total Protein 6.2 L, Albumin 3.1 L, Globulin 3.1, Albumin/Globulin Ratio 1.0 L 02/08/25 22:50 02/08/25 22:50 Orders (Tests/Meds): ED MEDICATIONS Generic Name Dose Route Start Last Admin Trade Name Freq PRN Reason Stop Dose Admin Vancomycin/PEG/NADA/Lysine/Water 1.5 gm in 300 mls @ 150 mls/hr 02/08/25 23:15 Vancomycin 1.5gm/300ml (Peg) Premix IV 02/09/25 01:14 ONCE ONE Lactated Ringer's 500 mls @ 500 mls/hr 02/08/25 23:51 Lactated Ringer's 500ml IV 02/09/25 00:50 .Q1H ONE Miscellaneous 1 each 02/08/25 23:15 02/08/25 23:35 Vancomycin Consult Request NOTAPPLIC 03/10/25 23:14 Not Given CONSULT PHARMACY SHENG Discontinued Medications Generic Name Dose Route Start Last Admin Trade Name Elham PRN Reason Stop Dose Admin Piperacillin Sod/Tazobactam 100 mls @ 200 mls/hr 02/08/25 23:11 02/08/25 23:34 Sod 4.5 gm/ Sodium Chloride IV 02/08/25 23:40 200 mls/hr ONCE ONE Administration ORDERS Category Date Time Status Chest XR -- portable [XR chest portable] Stat Exams 02/08/25 21:49 Completed Foot XR left minimum 3 views [XR foot LT min 3V] Stat Exams 02/08/25 22:11 Completed Foot XR right minimum 3 views [XR foot RT min 3V] Stat Exams 02/08/25 21:42 Completed Activated Partial Thrombo Time Stat Lab 02/08/25 22:50 Completed BNP [NT Pro Brain Natriuretic Pep.] Stat Lab 02/08/25 22:50 Completed C-Reactive Protein Stat Lab 02/08/25 22:50 Completed Complete Blood Count Auto Diff Stat Lab 02/08/25 22:50 Completed Comprehensive Metabolic Panel Stat Lab 02/08/25 22:50 Completed Creatine Kinase Stat Lab 02/08/25 22:50 Completed Erythrocyte Sedimentation Rate Stat Lab 02/08/25 22:50 Completed Full Resp Panel w/COVID ([facility]) Routine Lab 02/08/25 22:30 Completed Lactic Acid Stat Lab 02/08/25 22:50 Completed Prothrombin Time INR Stat Lab 02/08/25 22:50 Completed Urinalysis and Microscopic Stat Lab 02/08/25 21:39 Ordered Blood Culture Stat Micro 02/08/25 22:50 Received Urine Culture Stat Micro 02/08/25 21:40 Ordered Wound Culture and Gram Stain Stat Micro 02/08/25 22:13 Results VBG [Venous Blood Gas] Stat RT 02/08/25 21:45 Completed Medical Decision Narrative: This is a 74-year-old female who presents for evaluation of her toes on her left foot draining. They are worried about them being infected. Patient had them removed 1-1/2 months ago at . They have a follow-up appointment in February. Patient presents with some tachycardia and low-grade temp. I have placed initial workup as a sepsis workup. I did not add the sepsis bolus protocol as patient is a CHF patient and a dialysis patient. Patient will be left to Dr. Rosario. <Surya Rosario MD - Last Filed: 02/08/25 23:16> Vital Signs: 02/08/25 21:41 Temperature 97.3 F L Temperature Source Oral Pulse Rate [Right Radial] 131 H Respiratory Rate 29 H Blood Pressure [Left Arm] 120/92 H Blood Pressure Mean [Left Arm] 101 Blood Pressure Source [Left Arm] Automatic Cuff Blood Pressure Position [Left Arm] Sitting 02 Sat by Pulse Oximetry 94 L Oxygen Delivery Method Room Air Lab Data Lab Results 02/08/25 21:45: VBG pH 7.50 H, VBG pCO2 36.0, VBG pO2 157.1 H, VBG HCO3 27.6, VBG Total CO2 28.7 H, VBG O2 Saturation 99.2 H, VBG Base Excess 4.5 H, VBG Lactic Acid 2.6 H 02/08/25 22:30: Chlamy pneumoniae PCR Not detected, Adenovirus (PCR) Not detected, B. pertussis DNA (PCR) Not detected, Coronavirus OC43 (PCR) Not detected, Coronavirus HKU1 (PCR) Not detected, Coronavirus 229E (PCR) Not detected, SARS-CoV-2 (PCR) Not detected, Coronavirus NL63 (PCR) Not detected, Human Metapneumovir PCR Not detected, Influenza A (H1) PCR Not detected, Influ A (H1N1/09) PCR Not detected, Influenza A (H3) PCR Not detected, Influenza Type A (PCR) Not detected, Influenza Type B (PCR) Not detected, M. pneumoniae (PCR) Not detected, Parainfluenza 1 (PCR) Not detected, Parainfluenza 2 (PCR) Not detected, Parainfluenza 3 (PCR) Not detected, Parainfluenza 4 (PCR) Not detected, RSV (PCR) Not detected, Entero/Rhino (PCR) Not detected 02/08/25 22:50: WBC 10.4, RBC 3.45 L, Hgb 9.7 L, Hct 31.2 L, MCV 90.4, MCH 28.1, MCHC 31.1 L, RDW 16.7, Plt Count 253, MPV 9.6, Neut % (Auto) 81.8 H, Lymph % (Auto) 10.4, [place] % (Auto) 6.9, Eos % (Auto) 0.1, Baso % (Auto) 0.2, Neut # (Auto) 8.5 H, Lymph # (Auto) 1.1, [place] # (Auto) 0.7, Eos # (Auto) 0.0, Baso # (Auto) 0.0, ESR 20, PT 12.7 H, INR 1.15 H, APTT 31.2 H, Sodium 136, Potassium 2.9 L*, Chloride 98, Carbon Dioxide 30, Anion Gap 10.9, BUN 14, Creatinine 3.20 H, Estimated Creat Clear 21, Estimated GFR 14 L*, Est GFR ( Amer) 17 L*, Glucose 115 H, Lactate 2.3 H, Calcium 8.7, Total Bilirubin 1.9 H, AST 24, ALT 19, Alkaline Phosphatase 215 H, Total Creatine Kinase 30, C-Reactive Protein 153.5 H, NT-Pro-B Natriuret Pep > 33124 H, Total Protein 6.2 L, Albumin 3.1 L, Globulin 3.1, Albumin/Globulin Ratio 1.0 L Orders (Tests/Meds): ED MEDICATIONS Generic Name Dose Route Start Last Admin Trade Name Freq PRN Reason Stop Dose Admin Vancomycin/PEG/NADA/Lysine/Water 1.5 gm in 300 mls @ 150 mls/hr 02/08/25 23:15 Vancomycin 1.5gm/300ml (Peg) Premix IV 02/09/25 01:14 ONCE ONE Lactated Ringer's 500 mls @ 500 mls/hr 02/08/25 23:51 Lactated Ringer's 500ml IV 02/09/25 00:50 .Q1H ONE Miscellaneous 1 each 02/08/25 23:15 02/08/25 23:35 Vancomycin Consult Request NOTAPPLIC 03/10/25 23:14 Not Given CONSULT PHARMACY SHENG Discontinued Medications Generic Name Dose Route Start Last Admin Trade Name Freq PRN Reason Stop Dose Admin Piperacillin Sod/Tazobactam 100 mls @ 200 mls/hr 02/08/25 23:11 02/08/25 23:34 Sod 4.5 gm/ Sodium Chloride IV 02/08/25 23:40 200 mls/hr ONCE ONE Administration ORDERS Category Date Time Status Chest XR -- portable [XR chest portable] Stat Exams 02/08/25 21:49 Completed Foot XR left minimum 3 views [XR foot LT min 3V] Stat Exams 02/08/25 22:11 Completed Foot XR right minimum 3 views [XR foot RT min 3V] Stat Exams 02/08/25 21:42 Completed Activated Partial Thrombo Time Stat Lab 02/08/25 22:50 Completed BNP [NT Pro Brain Natriuretic Pep.] Stat Lab 02/08/25 22:50 Completed C-Reactive Protein Stat Lab 02/08/25 22:50 Completed Complete Blood Count Auto Diff Stat Lab 02/08/25 22:50 Completed Comprehensive Metabolic Panel Stat Lab 02/08/25 22:50 Completed Creatine Kinase Stat Lab 02/08/25 22:50 Completed Erythrocyte Sedimentation Rate Stat Lab 02/08/25 22:50 Completed Full Resp Panel w/COVID ([facility]) Routine Lab 02/08/25 22:30 Completed Lactic Acid Stat Lab 02/08/25 22:50 Completed Prothrombin Time INR Stat Lab 02/08/25 22:50 Completed Urinalysis and Microscopic Stat Lab 02/08/25 21:39 Ordered Blood Culture Stat Micro 02/08/25 22:50 Received Urine Culture Stat Micro 02/08/25 21:40 Ordered Wound Culture and Gram Stain Stat Micro 02/08/25 22:13 Results VBG [Venous Blood Gas] Stat RT 02/08/25 21:45 Completed Medical Decision Narrative: This is a 74-year-old female who presents for evaluation of her toes on her left foot draining. They are worried about them being infected. Patient had them removed 1-1/2 months ago at . They have a follow-up appointment in February. Patient presents with some tachycardia and low-grade temp. I have placed initial workup as a sepsis workup. I did not add the sepsis bolus protocol as patient is a CHF patient and a dialysis patient. Patient will be left to Dr. Rosario. Marlene: I assumed primary responsibility for this patient after signout from [employer]ING. Patient states that she has been feeling generally unwell. Last dialysis was today, 02/08. Finish the whole session. She states that she had an amputation of her left toe at last month and she does not have any feeling in her foot or ankle, but states that it has been draining and that has been bothering her. No fevers or chills or systemic signs or symptoms. History obtained the patient and son. On my physical exam, she is tachycardic, afebrile, tachypneic and normotensive. 94% on room air, placed on 2 L nasal cannula. Patient's labs and imaging were ordered. On independent interpretation of images, she has soft tissue gas, fracture of the little toe and amputation of the fourth digit. Concern for osteomyelitis. Independent interpretation of labs, no leukocytosis. Patient's VBG with metabolic alkalosis. Lactate 2.6. Rest of labs pending at time of handoff to oncoming physician. <Steven Forman MD - Last Filed: 02/08/25 23:58> Vital Signs: 02/08/25 21:41 Temperature 97.3 F L Temperature Source Oral Pulse Rate [Right Radial] 131 H Respiratory Rate 29 H Blood Pressure [Left Arm] 120/92 H Blood Pressure Mean [Left Arm] 101 Blood Pressure Source [Left Arm] Automatic Cuff Blood Pressure Position [Left Arm] Sitting 02 Sat by Pulse Oximetry 94 L Oxygen Delivery Method Room Air Lab Data Lab Results 02/08/25 21:45: VBG pH 7.50 H, VBG pCO2 36.0, VBG pO2 157.1 H, VBG HCO3 27.6, VBG Total CO2 28.7 H, VBG O2 Saturation 99.2 H, VBG Base Excess 4.5 H, VBG Lactic Acid 2.6 H 02/08/25 22:30: Chlamy pneumoniae PCR Not detected, Adenovirus (PCR) Not detected, B. pertussis DNA (PCR) Not detected, Coronavirus OC43 (PCR) Not detected, Coronavirus HKU1 (PCR) Not detected, Coronavirus 229E (PCR) Not detected, SARS-CoV-2 (PCR) Not detected, Coronavirus NL63 (PCR) Not detected, Human Metapneumovir PCR Not detected, Influenza A (H1) PCR Not detected, Influ A (H1N1/09) PCR Not detected, Influenza A (H3) PCR Not detected, Influenza Type A (PCR) Not detected, Influenza Type B (PCR) Not detected, M. pneumoniae (PCR) Not detected, Parainfluenza 1 (PCR) Not detected, Parainfluenza 2 (PCR) Not detected, Parainfluenza 3 (PCR) Not detected, Parainfluenza 4 (PCR) Not detected, RSV (PCR) Not detected, Entero/Rhino (PCR) Not detected 02/08/25 22:50: WBC 10.4, RBC 3.45 L, Hgb 9.7 L, Hct 31.2 L, MCV 90.4, MCH 28.1, MCHC 31.1 L, RDW 16.7, Plt Count 253, MPV 9.6, Neut % (Auto) 81.8 H, Lymph % (Auto) 10.4, [place] % (Auto) 6.9, Eos % (Auto) 0.1, Baso % (Auto) 0.2, Neut # (Auto) 8.5 H, Lymph # (Auto) 1.1, [place] # (Auto) 0.7, Eos # (Auto) 0.0, Baso # (Auto) 0.0, ESR 20, PT 12.7 H, INR 1.15 H, APTT 31.2 H, Sodium 136, Potassium 2.9 L*, Chloride 98, Carbon Dioxide 30, Anion Gap 10.9, BUN 14, Creatinine 3.20 H, Estimated Creat Clear 21, Estimated GFR 14 L*, Est GFR ( Amer) 17 L*, Glucose 115 H, Lactate 2.3 H, Calcium 8.7, Total Bilirubin 1.9 H, AST 24, ALT 19, Alkaline Phosphatase 215 H, Total Creatine Kinase 30, C-Reactive Protein 153.5 H, NT-Pro-B Natriuret Pep > 22421 H, Total Protein 6.2 L, Albumin 3.1 L, Globulin 3.1, Albumin/Globulin Ratio 1.0 L Orders (Tests/Meds): ED MEDICATIONS Generic Name Dose Route Start Last Admin Trade Name Freq PRN Reason Stop Dose Admin Vancomycin/PEG/NADA/Lysine/Water 1.5 gm in 300 mls @ 150 mls/hr 02/08/25 23:15 Vancomycin 1.5gm/300ml (Peg) Premix IV 02/09/25 01:14 ONCE ONE Lactated Ringer's 500 mls @ 500 mls/hr 02/08/25 23:51 Lactated Ringer's 500ml IV 02/09/25 00:50 .Q1H ONE Miscellaneous 1 each 02/08/25 23:15 02/08/25 23:35 Vancomycin Consult Request NOTAPPLIC 03/10/25 23:14 Not Given CONSULT PHARMACY SHENG Discontinued Medications Generic Name Dose Route Start Last Admin Trade Name Freq PRN Reason Stop Dose Admin Piperacillin Sod/Tazobactam 100 mls @ 200 mls/hr 02/08/25 23:11 02/08/25 23:34 Sod 4.5 gm/ Sodium Chloride IV 02/08/25 23:40 200 mls/hr ONCE ONE Administration ORDERS Category Date Time Status Chest XR -- portable [XR chest portable] Stat Exams 02/08/25 21:49 Completed Foot XR left minimum 3 views [XR foot LT min 3V] Stat Exams 02/08/25 22:11 Completed Foot XR right minimum 3 views [XR foot RT min 3V] Stat Exams 02/08/25 21:42 Completed Activated Partial Thrombo Time Stat Lab 02/08/25 22:50 Completed BNP [NT Pro Brain Natriuretic Pep.] Stat Lab 02/08/25 22:50 Completed C-Reactive Protein Stat Lab 02/08/25 22:50 Completed Complete Blood Count Auto Diff Stat Lab 02/08/25 22:50 Completed Comprehensive Metabolic Panel Stat Lab 02/08/25 22:50 Completed Creatine Kinase Stat Lab 02/08/25 22:50 Completed Erythrocyte Sedimentation Rate Stat Lab 02/08/25 22:50 Completed Full Resp Panel w/COVID ([facility]) Routine Lab 02/08/25 22:30 Completed Lactic Acid Stat Lab 02/08/25 22:50 Completed Prothrombin Time INR Stat Lab 02/08/25 22:50 Completed Urinalysis and Microscopic Stat Lab 02/08/25 21:39 Ordered Blood Culture Stat Micro 02/08/25 22:50 Received Urine Culture Stat Micro 02/08/25 21:40 Ordered Wound Culture and Gram Stain Stat Micro 02/08/25 22:13 Results VBG [Venous Blood Gas] Stat RT 02/08/25 21:45 Completed Tissue Perfus/Sepsis Re-Eval Sepsis Re-Evaluation Performed: Yes Date Performed: 02/08/25 Time Performed: 23:52 Medical Decision Narrative: This is a 74-year-old female who presents for evaluation of her toes on her left foot draining. They are worried about them being infected. Patient had them removed 1-1/2 months ago at . They have a follow-up appointment in February. Patient presents with some tachycardia and low-grade temp. I have placed initial workup as a sepsis workup. I did not add the sepsis bolus protocol as patient is a CHF patient and a dialysis patient. Patient will be left to Dr. Rosario. Marlene: I assumed primary responsibility for this patient after signout from [employer]ING. Patient states that she has been feeling generally unwell. Last dialysis was today, 02/08. Finish the whole session. She states that she had an amputation of her left toe at last month and she does not have any feeling in her foot or ankle, but states that it has been draining and that has been bothering her. No fevers or chills or systemic signs or symptoms. History obtained the patient and son. On my physical exam, she is tachycardic, afebrile, tachypneic and normotensive. 94% on room air, placed on 2 L nasal cannula. Patient's labs and imaging were ordered. On independent interpretation of images, she has soft tissue gas, fracture of the little toe and amputation of the fourth digit. Concern for osteomyelitis. Independent interpretation of labs, no leukocytosis. Patient's VBG with metabolic alkalosis. Lactate 2.6. Rest of labs pending at time of handoff to oncoming physician. Dasia MONTES: I assumed care of the patient at the time of handoff from the prior provider. On reassessment, patient remains tachycardic to 130. In the setting of dialysis today and infection, patient is likely mildly hypovolemic. Will give 500 mL of fluid and not a full sepsis bolus given ESRD. Radiographs were independently interpreted by me and shows concern for osteomyelitis with gas and cortical changes. Patient was initiated on vancomycin and Zosyn by the prior provider for sepsis. Labs independently interpreted by me and show no significant leukocytosis, stable anemia, elevated CRP, mild hypokalemia (recent dialysis). Interactive discussion was had with the [facility] where she had a prior procedure, she was excepted to [facility] for further assessment. I was consulted by the [facility], and we discussed the complexity of the problems being addressed. I approved the treatment and management plan for this patient?s care in the Emergency Department, thus performing a substantive portion of the medical decision making. Steven Forman MD Critical Care <Starla Fisher (ED), CLINICAL NURSING INTERN - Last Filed: 02/08/25 22:02> Critical Care Time Critical Care Time: No <Steven Forman MD - Last Filed: 02/08/25 23:58> Critical Care Time Critical Care Time: No
[2025-02-08 22:00] VITALS: BP 123/87; PULSE 128; RESP 15; O2SAT 95
--- NOTE | 2025-02-08 22:03 | PC.NURSE ---
lab called at this time for lab draw. after multiple sticks and being unable to obtain labs
--- NOTE | 2025-02-08 22:11 | XR_ITS ---
PROCEDURE INFORMATION: Exam: XR Left Foot Exam date and time: 02/08/2025 10:21 PM Age: 74 years old Clinical indication: Other: Eval for gas and osteo of toes TECHNIQUE: Imaging protocol: Radiologic exam of the left foot. Views: 3 or more views. COMPARISON: CR XR FOOT WT BEARING LT 3V 11/26/2024 12:02 PM FINDINGS: Bones/joints: Subacute mildly impacted fracture through the proximal phalanx of the little toe. Slight interval healing from prior exam. Amputation of the 4th toe identified. There is also indistinctness of the cortex within this region with regional osteopenia all worrisome for osteomyelitis. Overall extent can be better evaluated with MRI. No evidence for bony destruction radiographically within the remainder of the toes. Soft tissues: There is soft tissue ulceration/gas pocket that appears to extend down to the level of the cortex the 4th metatarsal head. IMPRESSION: 1. Subacute mildly impacted fracture through the proximal phalanx of the little toe. Slight interval healing from prior exam. 2. Amputation of the 4th toe identified. There is soft tissue ulceration/gas pocket that appears to extend down to the level of the cortex the 4th metatarsal head. There is also indistinctness of the cortex within this region with regional osteopenia all worrisome for osteomyelitis. Overall extent can be better evaluated with MRI. 3. No evidence for bony destruction radiographically within the remainder of the toes.
[2025-02-08 22:34] LABS: Adenovirus,PCR Not Detected (NotDetected); Bordetella Pertussis Not Detected (NotDetected); Chlamydophila Pneumoniae, PCR Not Detected (NotDetected); Coronavirus 19, PCR Not Detected (NotDetected); Coronavirus 229E Not Detected (NotDetected); Coronavirus NL63 Not Detected (NotDetected); Coronavirus OC43 Not Detected (NotDetected); Coronovirus HKU1,PCR Not Detected (NotDetected); Human Metapneumovirus Not Detected (NotDetected); Influenza A, PCR Not Detected (NotDetected); Influenza AH1, 2009 Not Detected (NotDetected); Influenza AH1, PCR Not Detected (NotDetected); Influenza AH3,PCR Not Detected (NotDetected); Influenza B, PCR Not Detected (NotDetected); Mycoplasma Pneumoniae, PCR Not Detected (NotDetected); Parainfluenza 1, PCR Not Detected (NotDetected); Parainfluenza 2, PCR Not Detected (NotDetected); Parainfluenza 3, PCR Not Detected (NotDetected); Parainfluenza 4, PCR Not Detected (NotDetected); Respiratory Syncytial Virus Not Detected (NotDetected); Rhinovirus/Enterovirus Not Detected (NotDetected)
[2025-02-08 22:59] LABS: Basophils % 0.2 % (0.1-2.0); Eosinophils % 0.1 % (0.1-12.0); Hematocrit 31.2 % (37.0-47.0); Hemoglobin 9.7 g/dL (12.2-16.2); Lymphocytes # 1.1 K/mm3 (0.7-4.5); Lymphocytes % 10.4 % (10-50); Mean Corpuscular HGB Conc 31.1 g/dL (31.8-35.4); Mean Corpuscular Hemoglobin 28.1 pg (27.0-31.2); Mean Corpuscular Volume 90.4 fl (81-99); Mean Platelet Volume 9.6 fl (7.4-10.4); Monocytes # 0.7 K/mm3 (0.1-1.0); Monocytes % 6.9 % (1.7-9.3); Neutrophils # 8.5 K/mm3 (1.8-7.8); Neutrophils % 81.8 % (37.0-80.0); Nucleated Red Blood Cells # 0.02 10^3/uL; Nucleated Red Blood Cells % 0.2 %; Platelet Count 253 K/mm3 (142-424); Red Blood Count 3.45 M/mm3 (4.20-5.40); Red Cell Distribution Width 16.7 % (11.5-17.5); Red Cell Distribution Width-SD 54.8 fL; White Blood Count 10.4 K/mm3 (4.8-10.8)
[2025-02-08 23:01] LABS: VBG Base Excess 4.5 mmol/L (-2.4-2.3); VBG HCO3 27.6 mmol/L (23-30); VBG Oxygen Saturation 99.2 % (50-70); VBG PO2 157.1 mmol/L (28-40); VBG Total CO2 28.7 mmol/L (23-27)
[2025-02-08 23:03] LABS: Lactate Venous 2.6 mmol/L (0.4-2.0)
[2025-02-08 23:09] VITALS: BP 143/108; PULSE 134; RESP 27; O2SAT 95
[2025-02-08 23:10] LABS: Alanine Aminotransferase 19 U/L (12-78); Albumin Level 3.1 g/dl (3.5-5.0); Alkaline Phosphatase 215 U/L (38-126); Anion Gap 10.9 mEq/L (5-15); Aspartate Amino Transferase 24 U/L (14-36); Bilirubin,Total 1.9 mg/dl (0.2-1.3); Blood Urea Nitrogen 14 mg/dl (7-17); Calcium 8.7 mg/dl (8.4-10.2); Carbon Dioxide 30 mmol/L (22.0-30.0); Chloride 98 mmol/L (98-107); Creatine Kinase 30 U/L (30-135); Creatinine Clearance Estimated 21 mL/min (50-200); Estimated Glomerular Filt Rate 14 ml/min (>60); GFR (African American) 17 ML/MIN (>60); Globulin 3.1 g/dL (1.3-3.2); Glucose 115 mg/dl (74-100); Sodium 136 mmol/L (136-145); Total Protein,Serum 6.2 g/dl (6.3-8.2)
[2025-02-08 23:11] LABS: Lactic Acid 2.3 mmol/L (0.7-2.1)
[2025-02-08 23:13] LABS: Potassium 2.9 mmoL/L (3.5-5.1)
--- NOTE | 2025-02-08 23:13 | PC.NURSE ---
Lab calls potassium of 2.9. [facility] ED provider aware
[2025-02-08 23:15] LABS: C-Reactive Protein 153.5 mg/L (0-4)
[2025-02-08 23:17] LABS: Activated Partial Thrombo Time 31.2 seconds (22.8-30.6); INR 1.15 (0.9-1.1); Prothrombin Time 12.7 seconds (10.1-12.5)
--- NOTE | 2025-02-08 23:18 | INFXCTL.NOTE ---
Vanc dosing verified by Malik Corley.
[2025-02-08 23:21] LABS: NT Pro Brain Natriuretic Pep. > 30000 pg/mL (0-125)
[2025-02-08 23:27] LABS: Erythrocyte Sedimentation Rate 20 mm/hr (0-30)
[2025-02-08 23:31] VITALS: BP 159/119; PULSE 129; RESP 24; O2SAT 100
[2025-02-08] MEDS: PIPERACILLIN/TAZO 4.5 GM in 0.9 % SODIUM CHLORIDE 100 ML IV (23:34)
--- NOTE | 2025-02-08 23:34 | PC.NURSE ---
antibiotics delayed due to pt being a very difficult IV stick, and being unable to obtain blood cultures.
--- NOTE | 2025-02-08 23:42 | PC.NURSE ---
Spoke with transfer center, they are going to call us back
--- NOTE | 2025-02-08 23:47 | PC.NURSE ---
MD Forman on phone with at this time
--- NOTE | 2025-02-08 23:47 | PC.NURSE ---
@2255 attempted to lay pt flat for straight cath, pt became SOA and requested to have oxygen placed . HR increased to 180 for a very brief period and O2 sat decreased to 88%. 2L NC placed on pt. pt pulled up in bed and sat straight up, instructed to take deep breaths. straight cath post-poned at this time. HR came back down to 130, which has been her baseline since arrival. O2 sat increased to 100%. MD Rosario was made aware of all events. pt provided with warm blankets per request.
[2025-02-08 23:58] VITALS: BP 122/96; PULSE 62; RESP 29; O2SAT 100
[2025-02-09 00:01] VITALS: BP 158/115; PULSE 120; RESP 29; O2SAT 98
[2025-02-09] MEDS: RINGERS SOLUTION,LACTATED 500 ML IV (00:14)
[2025-02-09] MEDS: VANCOMYCIN/WATER FOR INJ (PEG) 1.5 GM/300 ML PIGGYBACK IV (00:14)
--- NOTE | 2025-02-09 00:20 | PC.NURSE ---
Called [facility] for transfer to [facility].
[2025-02-09] MEDS: ACETAMINOPHEN 500MG TAB 1000 MG PO (00:25)
[2025-02-09] MEDS: KETOROLAC 30MG/ML VIAL 15 MG IV (00:26)
--- NOTE | 2025-02-09 00:41 | PC.NURSE ---
report called to [facility]
[2025-02-09 00:44] VITALS: BP 122/96; PULSE 128; RESP 29; TEMP 36.3; O2SAT 100
--- NOTE | 2025-03-06 14:47 | INFXCTL.NOTE ---
Received notification from [facility] that patient had positive results for cadida auris during surveillance cultures. 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
== END 2025-02-09 00:48 | disposition other institution (70) ==
PROVIDERS: Nurse Practitioner; Emergency Provider Emergency Medicine; PCP Family Medicine
DX: A41.9 Sepsis, unspecified organism (principal); M86.172 Other acute osteomyelitis, left ankle and foot; N18.6 End stage renal disease; E11.22 Type 2 diabetes mellitus with diabetic chronic kidney disease; Z99.2 Dependence on renal dialysis
CPT/HCPCS: 71045; 73630; 80053; 82550; 82803; 83605; 83880; 85025; 85610; 85651; 85730; 86140; 87040; 87070; 87077; 87186; 87205; 87633; 93005; 96365; 96366; 96375; 99285; J1885; J2543; J3372; J7120

== ENCOUNTER 2025-03-20 13:10 | Emergency (ER) | payer MEDICARE, SELFPAY ==
--- OUTSIDE RECORDS SUMMARY | 2024-07-30 14:03 | XMS_ITS | Continuity of Care Document ---
Author Organization [facility]. If a dditional information is needed, contact Health Information Management at [phone] Address [address] [place] [address] Phone Care Team Providers Care Retail Sales Merchandiser Development Name Role Phone Unavailable Unavailable Unavailable Unavailable Unavailable Unavailable Unavailable Unavailable Unavailable Unavailable Unavailable Unavailable Unavailable Unavailable Unavailable Unavailable Unavailable Unavailable Unavailable Unavailable Unavailable Unavailable Unavailable Unavailable Unavailable Unavailable Unavailable Unavailable Unavailable Unavailable Unavailable Unavailable Unavailable Unavailable Unavailable Unavailable Unavailable Unavailable Unavailable Unavailable Unavailable Unavailable Unavailable Unavailable Unavailable Unavailable Unavailable Unavailable Unavailable Unavailable Unavailable Unavailable Unavailable Unavailable Unavailable Unavailable Unavailable Unavailable Unavailable Unavailable Unavailable Unavailable Unavailable Unavailable Unavailable Unavailable Unavailable Unavailable Unavailable Unavailable Unavailable Unavailable Joy Aguilera VH-85-Bdi Home Activity/Exercise/Limitations As toleratedHome DC Diet Lyndsey January [place], [place] [address]Phone: Xxhzlqdwlqi Discharge SummaryPatient Name: THAO BURKDOB: 1950 Age: 73 Sex: FAcct: [id number] MR#: [id number]: Willy Gilbert DO Author: LyndseyJanuary LPatient Status: ADM IN Patient Location: FR.4S FR.402-ADate of Admission/Service: 07/28/24Report Date/Time: 07/30/24 1402 Report Status: SignedReport#: [id number] Information- General InformationDate of admission:07/28/24Discharge date: 07/30/24Discharge diagnosis: SOA, hyperkalemia, ESRD on dialysis, HTN, HLD, dmHospital course:73-year-old female with past medical history of diabetes, hypertension, hyperlipidemia, and end- stage renal disease on hemodialysis; transferred to hospital for hemodialysis. Patient reports shehad some diarrhea and she missed her hemodialysis. She reports and the afternoon she developedshortness of breath and chest pain. Patient reports fatigue and generalized weakness. Patientevaluated by ED team and was found to have hyperkalemia. Plan of care discussed with ED admittingprovider. Patient seen and evaluated at bedside. Plan of care discussed with patient at bedside.During patient's hospital stay she was treated for:# shortness of breath:* Possibly associated volume overload, BNP greater than 30,000* Continue O2 supplementation* Wean as able# hyperkalemia:* Continue Lokelma* Patient received insulin and D50* Patient received calcium gluconate* Continuous tele monitoring* Nephrology consulted and following# end-stage renal disease on hemodialysis:* Nephrology consulted and following* The patient normally Monday dialysis* Patient received dialysis Monday, patient received dialysis today on her regular schedule# hypertension:* Continue home medications* Blood pressure stable# hyperlipidemia:Patient Name: THAO BURK Acct: [id number] Unit: [id number] Page 1* Continue home medications* Lipid panel results noted# diabetes:* Monitor fingerstick blood glucose* Continue insulin glargine* Continue insulin sliding scale* Continue carb consistent diet* hemoglobin A1c 5.2* Adjust algorithm as needed* Avoid hypoglycemia* Diabetes Education by dietitian# anemia* Iron panel results reviewed, deficiency noted* Replace iron, gave EpogenThe patient was seen and evaluated today and has been cleared for discharge at this time. I didhave a discussion with him/her concerning discharge plan and recommendations. All questions andconcerns answered. Patient follow-up with primary care provider in 4-5 days. Patient to follow upwith NephrologyCase was discussed with my attending.Time taken in this discharge was greater than 30 minutesConsultants: nephrologyPt. condition on discharge: improved- General InformationAllergies/Adverse Reactions:Allergiesceftriaxone [From Rocephin] Allergy (Verified 07/27/24 23:46) Rash-HivesObjective- Physical ExamVS/I O: Vital Signs - Last DocumentedTemperature 97.5 F 07/30/24 13:05Pulse 72 07/30/24 13:05Respiratory rate 18 07/30/24 13:05Respiratory source Observed 07/27/24 23:37Vital signs position Lying 07/27/24 23:37Patient Name: THAO BURK Acct: [id number] Unit: [id number] Page 2Blood pressure 96/58 L 07/30/24 13:05Non-invasive BP Mean Pressure 121 07/28/24 02:16Bedside pulse oximetry/SpO2 100 07/30/24 13:05Patient on Oxygen 07/28/24 02:20O2 liters per minute 3 07/30/24 13:05Level of consciousness Alert 07/30/24 13:05MEWS score - adult 0 07/30/24 07:59Weight 86.6 kg 07/28/24 02:51Weight source Standing scale 07/28/24 02:51Body surface area 2.04 07/28/24 02:51Body mass index 30.7 07/28/24 02:51Height 5 ft 6.14 in 07/28/24 02:51Height source Stated/Reported 07/28/24 02:51 Vital Signs Temp Pulse Resp BP Pulse Ox 07/30/24 13:05 97.5 F 72 18 96/58 L 100 07/30/24 09:15 97.9 F 71 18 94/62 L 100 07/30/24 07:59 98.2 F 70 14 112/74 L 100 07/30/24 03:56 97.9 F 70 14 104/73 L 100 07/29/24 23:36 97.9 F 70 16 97/64 L 92 07/29/24 20:30 97.7 F 62 16 111/72 L 91 07/29/24 15:39 97.9 F 69 14 102/69 L 100General appearance: alert, awake, oriented, pleasant, conversationalHead/Eyes: atraumatic, clear cornea, EOMI, normal conjunctiva/sclera, normal eyelids/periorb.,normocephalic, PERRLENT: moist mucosal membranes, normal pharynxNeck: non-tender, supple/no meningismus, no masses or swellingCardiovascular: murmur, normal capillary refill, regular rate rhythmRespiratory: aerating well, clear to auscultation, symmetric expansion, no distressAbdomen: obese, non-tender, normal bowel sounds, softPatient Name: THAO BURK Acct: [id number] Unit: [id number] Page 3Rectal: not indicatedExtremities: edema, moves allMusculoskeletal: normal inspectionNeuro/PACKAGE CLERK: alert, oriented X 3, normal speech- Physical Exam ...Skin: dry, normal color, normal temperature- Physical Exam ...Lymphatics: neck normalPsychiatry: normal affect, normal judgment/insight, normal mood- ResultsFindings/Data: Chemistry 07/30/24 Range/Units 03:58Sodium 141 (136-142) mmol/LPotassium 4.7 (3.5-5.1) mmol/LChloride 102 (98-107) mmol/LCarbon Dioxide 30 (21-32) mmol/LAnion Gap 9 (5-14) mMol/LBUN 23 H (7-18) mg/dLCreatinine 7.71 H* (0.55-1.02) mg/dLBUN/Creatinine Ratio 3.0Glucose 90 (74-106) mg/dLCalcium 8.6 (8.5-10.1) mg/dLPhosphorus 5.3 H (2.5-4.9) mg/dLMagnesium 2.4 (1.8-2.4) mg/dLAlbumin 3.2 L (3.4-5.0) g/dL POC Glucose 07/29/24 07/29/24 07/30/24 Range/Units 15:32 20:27 07:15Patient Name: THAO BURK Acct: [id number] Unit: [id number] Page 4POC Glucose 123 H 99 87 (70-110) mg/dl Hematology 07/30/24 Range/Units 03:58WBC 3.5 L (4.8-10.8) K/uLRBC 3.03 L (4.10-5.30) M/uLHgb 9.3 L (12.4-16.2) g/dLHct 30.9 L (38.9-44.7) %MCV 102.0 H (81-96) fLMCH 30.7 (27.5- 33.4) pgMCHC 30.1 L (32-36) g/dLRDW Coeff of [place] 15.9 H (12.0-14.8) %Plt Count 118 L (153-361) K/uLMPV 10.2 (8.5-12.1) fLGran % 70.9 (43.0-83.7) %Immature Gran % (Auto) 0.8 H (0.0-0.5) %Lymph % (Auto) 15.9 (9.7-44.3) %Angelina % (Auto) 9.6 (1.8-12.7) %Eos % (Auto) 2.5 (0.0-6.0) %Baso % (Auto) 0.3 (0.0-1.0) %Nucleat RBC Rel Count 0.0 (0.0-0.2) %Gran # 2.50 (1.40-7.70) K/uLLymph # (Auto) 0.56 L (0.80-2.90) K/uLMono # (Auto) 0.34 (0.20-0.80) K/uLEos # (Auto) 0.09 (0.00-0.30) K/uLBaso # (Auto) 0.01 (0.00-0.04) K/uLImmature Gran # (Auto) 0.03 (0.00-0.08) K/uLPatient Name: THAO BURK Acct: [id number] Unit: [id number] Page 5Absolute Nucleated RBC 0.00 (0.00-0.01) K/uL Serology 07/28/24 Range/Units 05:00Hep Bs Antigen Negative (Negative)Hepatitis C Antibody Non Reactive (Non Reactive)Results: labs reviewed, vital signs stable, current med profile rev'dDischarge Instructions- PCPPCP follow-up:PCP No Primary or Family PhysicianDischarge to: Home/Self Care- Discharge InstructionsAdditional Discharge Routines: PCP Follow-Up, Time Cycle Operator Follow- UpDiet: Diabetic, RenalActivity: As ToleratedPrescriptions: e-prescribeDischarge management: greater than 30 minsTreatments Procedures- Treatments ProceduresLab: Chemistry last 24 hrs 07/30/24 03:58Sodium 141 mmol/L (136-142)Potassium 4.7 mmol/L (3.5-5.1)Chloride 102 mmol/L (98-107)Patient Name: THAO BURK Acct: [id number] Unit: [id number] Page 6Carbon Dioxide 30 mmol/L (21-32)BUN 23 H mg/dL (7-18)Glucose 90 mg/dL (74-106) Hematology last 24 hrs 07/30/24 03:58WBC 3.5 L K/uL (4.8-10.8)Hgb 9.3 L g/dL (12.4-16.2)Hct 30.9 L % (38.9-44.7)Plt Count 118 L K/uL (153-361)Quality- ReviewedCurrent medication review:I attest that the foregoing medication list in the medical record is true, accurate, and complete tothe best of my knowledge.- Advanced Care Plan 65 or OlderDiscussion included: power of county attorney (Daughter Robina Burk should be contactedin the event patient cannot advocate for herself), code status (full code)- BMI Screening > 25 or < 18.5Patient's BMI:Current BMI: 30.7 07/28/24 02:51Patient Name: THAO BURK Acct: [id number] Unit: [id number] Page 7- Tobacco Use/CounselingTobacco use/counseling: non tobacco user, no counseling needed- HTN Screening/Follow- upLast documented vitals: Vital Signs - Last DocumentedTemperature 97.5 F 07/30/24 13:05Pulse 72 07/30/24 13:05Respiratory rate 18 07/30/24 13:05Respiratory source Observed 07/27/24 23:37Vital signs position Lying 07/27/24 23:37Blood pressure 96/58 L 07/30/24 13:05Non-invasive BP Mean Pressure 121 07/28/24 02:16Bedside pulse oximetry/SpO2 100 07/30/24 13:05Patient on Oxygen 07/28/24 02:20O2 liters per minute 3 07/30/24 13:05Level of consciousness Alert 07/30/24 13:05MEWS score - adult 0 07/30/24 07:59Weight 86.6 kg 07/28/24 02:51Weight source Standing scale 07/28/24 02:51Body surface area 2.04 07/28/24 02:51Body mass index 30.7 07/28/24 02:51Height 5 ft 6.14 in 07/28/24 02:51Height source Stated/Reported 07/28/24 02:51Blood pressure ranges/guide:Screening for Hypertension and follow up measure #[id number] pressure parametersNormal B/P SBP </= 119 DBP </= 79Patient Name: THAO BURK Acct: [id number] Unit: [id number] Page 8Pre-hypertensive SBP 120-139 DBP 80-89Hypertensive SBP >/= 140 DBP >/= 90Attestations- Agree w/findings plan Note 1Attest: I agree with the findings and plan as documented by Odilia Solorio APRNDischarge Plan- Discharge PlanDisposition: Home, Self-CareReason For Visit: CP/SOADischarge Orders:Discharge Order (Routine); Ordered 07/30/24 Ordered By: Odilia Solorio Discharge Disposition: Home, Self-Care Does patient have any of following, AMI, HF, PCI,Stroke/TIA?: NoCondition: Fair- InstructionsPrescriptions:New ferrous sulfate 325 mg (65 mg iron) Tablet 325 mg PO BID Qty: 30 RF: 0 Transmission Status: Received by [id number] Ordered By: Odilia Solorio Last Taken: UnknownContinued bisoprolol fumarate 10 mg tablet 10 mg PO DAILY Last Taken: Unknown brimonidine 0.2 % drops 1 drp OPHTHALMIC (EYE) BID Reason for use: EACH EYE Last Taken: Unknown dorzolamide-timolol 22.3-6.8 mg/mL drops 1 drp OPHTHALMIC (EYE) BID Reason for use: EACH EYE Last Taken: Unknown folic acid 1 mg tablet 1 mg PO DAILY Last Taken: Unknown insulin aspart U-100 [Novolog FlexPen U-100 Insulin] 100 unit/mL (3 mL) insulin penPatient Name: THAO BURK Acct: [id number] Unit: [id number] Page 9 3 unit SUBCUT TID BEFORE MEALS Last Taken: Unknown insulin glargine [Lantus U-100 Insulin] 100 unit/mL solution 6 unit SUBCUT BEDTIME Last Taken: Unknown pantoprazole 40 mg tablet,delayed release (DR/EC) 40 mg PO BID BEFORE MEALS Last Taken: Unknown prednisone 5 mg tablet 5 mg PO DAILY Last Taken: Unknown sevelamer carbonate 800 mg tablet 1,600 mg PO TID WITH MEALS Last Taken: Unknown Spiriva Respimat 2.5 mcg/actuation mist 2 inh INHALATION DAILY Last Taken: Unknown Xifaxan 550 mg tablet 550 mg PO BID Last Taken: UnknownForms: Provider Discharge Instruction, All - Discharge Instructions- Post-Hospital CareReferrals:Wale Dwyer [Physician *] - 2 DaysNo Primary or Family,PCP [Primary Care Provider] -<Electronically signed by LUCAS Solorio> 07/30/24 1410I reviewed the PA/GAS DESULFURIZER?s chart. I agree with the assessment and care plan, and confirm thediagnosis(es).<Electronically signed by Willy Gilbert DO> 07/30/24 2041Patient Name: THAO BURK Acct: [id number] Unit: [id number] Page 10 Domingomattcarmelita Wale J-50-Tvc30-Jul-2024 [place], [place] [address]Phone: Kjfucopqmp Progress NotePatient Name: THAO BURKDOB: 1950 Age: 73 Sex: FAcct: [id number] MR#: [id number]: Willy Gilbert DO Author: Wale Dwyer APatient Status: DIS IN Patient Location: FR.4S FR.402-ADate of Admission/Service: 07/28/24Report Date/Time: 07/30/24 0959 Report Status: SignedReport#: [id number] SubjectiveChief Complaint: Seen on dialysis. New well. Wants to go homeObjective- GeneralVS/I O: Vital Signs Temp Pulse Resp BP Pulse Ox 07/30/24 09:15 36.6 C 71 18 94/62 L 100 07/30/24 07:59 36.8 C 70 14 112/74 L 100 07/30/24 03:56 36.6 C 70 14 104/73 L 100 07/29/24 23:36 36.6 C 70 16 97/64 L 92 07/29/24 20:30 36.5 C 62 16 111/72 L 91 07/29/24 15:39 36.6 C 69 14 102/69 L 100 07/29/24 12:04 36.4 C 70 14 99/66 L 100Medications: Current Hospital Medication OrdersGeneric Name Dose Route Start Last Admin Trade Name Freq PRN Reason Stop Dose AdminPatient Name: THAO BURK Acct: [id number] Unit: [id number] Page 1Acetaminophen 650 mg 07/28/24 03:56 Acetaminophen 325 Mg Tab PO 09/26/24 03:55 Q6H PRN PRN PAIN 1-3/TEMP> 100.5/38.1C/HAHydrocodone Bitart/Acetaminophen 1 tab 07/28/24 03:56 07/30/24 07:31 Hydrocodone 5 Mg/Acetaminophen 325 Mg Tab PO 09/26/24 03:55 1 tab Q6H PRN PRN Administration Pain Scale 4-6Bisacodyl 10 mg 07/28/24 03:56 Bisacodyl 10 Mg Rectal Supp RECTAL 09/26/24 03:55 DAILY PRN PRN No Bowel Movements For 48 HrsCalcium Carbonate 1,000 mg 07/28/24 03:56 07/28/24 09:25 Calcium Carbonate 500 Mg Chew Tab PO 09/26/24 03:55 1,000 mg Q6H PRN PRN Administration DyspepsiaDextrose 15 gm 07/28/24 04:22 Dextrose 15 Gm Oral Gel Dose PO 09/26/24 04:21 DIRECTED PRN Hypoglycemia Per ProtocolDextrose/Water 25 gm 07/28/24 04:22 Dextrose 50% Water 25 Gm/50 Ml Disp Syringe IV 09/26/24 04:21 PRN PRN Hypoglycemia Per Protocol ProtocolDocusate Sodium 100 mg 07/28/24 09:00 07/30/24 08:19 Docusate Sodium 100 Mg Liquid-Filled Cap PO 09/26/24 08:59 Not Given BID SCHGuaifenesin/Dextromethorphan 10 ml 07/28/24 18:30 07/28/24 18:13Patient Name: THAO BURK Acct: [id number] Unit: [id number] Page 2 Guaifenesin/D-Methorphan Oral Syrup 200-20 Mg/10 Ml Ud Cup PO 09/26/24 18:29 10 ml Q6H PRN PRN Administration CoughHeparin Sodium (Porcine) 5,000 unit 07/28/24 08:00 07/30/24 08:16 Heparin Sodium (Porcine) 5000 Unit/Ml 1 Ml Vial SUBQ 09/26/24 07:59 Not Given Q8 SCHHydralazine HCl 10 mg 07/28/24 04:22 Hydralazine Injection Solution 20 Mg/Ml 1 Ml Vial IV 09/26/24 04:21 Q4H PRN PRN SBP Greater Than 150Ferric Sodium Gluconate 110 mls @ 110 mls/hr 07/29/24 14:00 07/29/24 15:21Complex 125 mg/ Sodium IV 08/01/24 14:59 110 mls/hrChloride Q24H SHENG AdministrationInsulin Glargine-yfgn 10 unit 07/28/24 09:00 07/30/24 07:55 Insulin Glargine-Yfgn 20 Units/0.2 Ml SUBQ 09/26/24 08:59 Not Given BID SCHInsulin Human Lispro 0 unit 07/28/24 07:30 07/30/24 07:55 Insulin Lispro 100 Unit/Ml SUBQ 09/26/24 07:29 Not Given ACHS SHENG ProtocolMelatonin 3 mg 07/29/24 21:45 07/29/24 22:04 Melatonin 3 Mg Tab PO 09/27/24 21:44 3 mg BEDTIME SHENG AdministrationMorphine Sulfate 2 mg 07/28/24 03:56 Morphine Sulfate Injection Solution 2 Mg/Ml 1 Ml IV 09/26/24 03:55 Q4H PRN PRN Pain Scale 7-10Ondansetron HCl 4 mg 07/28/24 03:56Patient Name: THAO BURK Acct: [id number] Unit: [id number] Page 3 Ondansetron Injection Solution 4 Mg/2 Ml Sdv IV 09/26/24 03:55 Q6H PRN PRN Nausea / Vomiting- Physical ExamGeneral appearance: alert, awake, orientedHead/eyes: atraumatic, normocephalicENT: normal noseNeck: non-tenderCardiovascular: murmur, lower extremity edema, regular rate and rhythmRespiratory: decreased breath sounds, on oxygen, symmetric expansionAbdomen: distended, normal bowel sounds, softGenitourinary: no foleyExtremities: swelling, non-tenderNeuro/PACKAGE CLERK: alert, oriented X 3, normal speech- Hemodialysis AccessType: AV fistulaLocation: right upper armComments: bruit present, thrill presentSkin: dryPsychiatry: normal mood, normal judgment/insight- ResultsResult Diagrams: 07/30/24 03:58 07/30/24 03:58Findings/Data: Chemistry 07/30/24 Range/Units 03:58Sodium 141 (136-142) mmol/LPotassium 4.7 (3.5-5.1) mmol/LChloride 102 (98-107) mmol/LCarbon Dioxide 30 (21-32) mmol/LAnion Gap 9 (5-14) mMol/LBUN 23 H (7-18) mg/dLCreatinine 7.71 H* (0.55-1.02) mg/dLBUN/Creatinine Ratio 3.0Patient Name: THAO BURK Acct: [id number] Unit: [id number] Page 4Glucose 90 (74-106) mg/dLCalcium 8.6 (8.5-10.1) mg/dLPhosphorus 5.3 H (2.5-4.9) mg/dLMagnesium 2.4 (1.8-2.4) mg/dLAlbumin 3.2 L (3.4-5.0) g/dL POC Glucose 07/29/24 07/29/24 07/29/24 Range/Units 07:37 11:58 15:32POC Glucose 75 105 123 H (70-110) mg/dl 07/29/24 07/30/24 Range/Units 20:27 07:15POC Glucose 99 87 (70-110) mg/dl Hematology 07/30/24 Range/Units 03:58WBC 3.5 L (4.8-10.8) K/uLRBC 3.03 L (4.10-5.30) M/uLHgb 9.3 L (12.4-16.2) g/dLHct 30.9 L (38.9-44.7) %MCV 102.0 H (81-96) fLMCH 30.7 (27.5-33.4) pgMCHC 30.1 L (32-36) g/dLRDW Coeff of [place] 15.9 H (12.0-14.8) %Plt Count 118 L (153-361) K/uLPatient Name: THAO BURK Acct: [id number] Unit: [id number] Page 5MPV 10.2 (8.5-12.1) fLGran % 70.9 (43.0-83.7) %Immature Gran % (Auto) 0.8 H (0.0-0.5) %Lymph % (Auto) 15.9 (9.7-44.3) %Angelina % (Auto) 9.6 (1.8-12.7) %Eos % (Auto) 2.5 (0.0-6.0) %Baso % (Auto) 0.3 (0.0-1.0) %Nucleat RBC Rel Count 0.0 (0.0-0.2) %Gran # 2.50 (1.40-7.70) K/uLLymph # (Auto) 0.56 L (0.80-2.90) K/uLMono # (Auto) 0.34 (0.20-0.80) K/uLEos # (Auto) 0.09 (0.00-0.30) K/uLBaso # (Auto) 0.01 (0.00-0.04) K/uLImmature Gran # (Auto) 0.03 (0.00-0.08) K/uLAbsolute Nucleated RBC 0.00 (0.00-0.01) K/uL Serology 07/28/24 Range/Units 05:00Hep Bs Antigen Negative (Negative)Hepatitis C Antibody Non Reactive (Non Reactive)Diagnosis, Assessment Plan- Problem List/A P(1) ESRD (end stage renal disease)Status: Acute(2) Respiratory failureStatus: Acute(3) HyperkalemiaPatient Name: THAO BURK Acct: [id number] Unit: [id number] Page 6Status: Acute(4) HypertensionStatus: Acute(5) AnemiaStatus: Acute- Diagnosis, Assessment PlanFree Text A P:Dialysis today for 3-1/2 hours ultrafiltration off 3 if we are able to. Dialysis access workingwell with good blood flow. Discussed importance of compliance for her dialysis schedule<Electronically signed by Wale Dwyer MD> 08/27/24 1549Patient Name: THAO BURK Acct: [id number] Unit: [id number] Page 7 Mendez Lopez GAS DESULFURIZER-- [address] [place], [place] [address]Phone: Hitwloqzud Progress NotePatient Name: THAO BURKDOB: 1950 Age: 73 Sex: FAcct: [id number] MR#: [id number]: Willy Gilbert DO Author: Zuleyma Simms NPPatient Status: DIS IN Patient Location: [place] [address]-ADate of Admission/Service: 07/28/24Report Date/Time: 07/29/24 1159 Report Status: SignedReport#: [id number]- SubjectiveChief Complaint: awake sitting up in chair. breathing betterObjective- GeneralVS/I O: Vital Signs Temp Pulse Resp BP Pulse Ox 07/29/24 07:35 36.5 C 68 14 108/77 L 100 07/29/24 04:51 36.6 C 70 16 115/63 L 100 07/29/24 00:18 36.8 C 70 18 125/83 96 07/28/24 19:54 36.4 C 92 16 117/65 L 98 07/28/24 19:20 36.0 C 72 15 124/81 100 07/28/24 15:50 36.2 C 72 16 120/65 L 100 Intake/Output 07/30/24 06:59Intake Total 360 / 360Balance 360 / 360Patient Name: THAO BURK Acct: [id number] Unit: [id number] Page 1Intake: Oral 360 / 360Other: Breakfast 50%Medications: Current Hospital Medication OrdersGeneric Name Dose Route Start Last Admin Trade Name Elham PRN Reason Stop Dose AdminAcetaminophen 650 mg 07/28/24 03:56 Acetaminophen 325 Mg Tab PO 09/26/24 03:55 Q6H PRN PRN PAIN 1-3/TEMP> 100.5/38.1C/HAHydrocodone Bitart/Acetaminophen 1 tab 07/28/24 03:56 07/29/24 08:45 Hydrocodone 5 Mg/Acetaminophen 325 Mg Tab PO 09/26/24 03:55 1 tab Q6H PRN PRN Administration Pain Scale 4-6Bisacodyl 10 mg 07/28/24 03:56 Bisacodyl 10 Mg Rectal Supp RECTAL 09/26/24 03:55 DAILY PRN PRN No Bowel Movements For 48 HrsCalcium Carbonate 1,000 mg 07/28/24 03:56 07/28/24 09:25 Calcium Carbonate 500 Mg Chew Tab PO 09/26/24 03:55 1,000 mg Q6H PRN PRN Administration DyspepsiaDextrose 15 gm 07/28/24 04:22 Dextrose 15 Gm Oral Gel Dose PO 09/26/24 04:21 DIRECTED PRNPatient Name: THAO BURK Acct: [id number] Unit: [id number] Page 2 Hypoglycemia Per ProtocolDextrose/Water 25 gm 07/28/24 04:22 Dextrose 50% Water 25 Gm/50 Ml Disp Syringe IV 09/26/24 04:21 PRN PRN Hypoglycemia Per Protocol ProtocolDocusate Sodium 100 mg 07/28/24 09:00 07/29/24 08:46 Docusate Sodium 100 Mg Liquid-Filled Cap PO 09/26/24 08:59 Not Given BID SCHGuaifenesin/Dextromethorphan 10 ml 07/28/24 18:30 07/28/24 18:13 Guaifenesin/D-Methorphan Oral Syrup 200-20 Mg/10 Ml Ud Cup PO 09/26/24 18:29 10 ml Q6H PRN PRN Administration CoughHeparin Sodium (Porcine) 5,000 unit 07/28/24 08:00 07/29/24 08:45 Heparin Sodium (Porcine) 5000 Unit/Ml 1 Ml Vial SUBQ 09/26/24 07:59 5,000 unit Q8 SHENG AdministrationHydralazine HCl 10 mg 07/28/24 04:22 Hydralazine Injection Solution 20 Mg/Ml 1 Ml Vial IV 09/26/24 04:21 Q4H PRN PRN SBP Greater Than 150Insulin Glargine-yfgn 10 unit 07/28/24 09:00 07/29/24 08:45 Insulin Glargine- Yfgn 20 Units/0.2 Ml SUBQ 09/26/24 08:59 Not Given BID SCHInsulin Human Lispro 0 unit 07/28/24 07:30 07/29/24 08:44 Insulin Lispro 100 Unit/Ml SUBQ 09/26/24 07:29 Not Given ACHS SHENG ProtocolMorphine Sulfate 2 mg 07/28/24 03:56 Morphine Sulfate Injection Solution 2 Mg/Ml 1 Ml IV 09/26/24 03:55Patient Name: THAO BURK Acct: [id number] Unit: [id number] Page 3 Q4H PRN PRN Pain Scale 7- 10Ondansetron HCl 4 mg 07/28/24 03:56 Ondansetron Injection Solution 4 Mg/2 Ml Sdv IV 09/26/24 03:55 Q6H PRN PRN Nausea / Vomiting- Physical ExamGeneral appearance: alert, no acute distressHead/eyes: atraumatic, normocephalicENT: normal noseNeck: non-tenderCardiovascular: murmur, lower extremity edema, regular rate and rhythmRespiratory: decreased breath sounds, on oxygen, symmetric expansionAbdomen: distended, normal bowel sounds, softGenitourinary: no foleyExtremities: swelling, non-tenderNeuro/PACKAGE CLERK: alert, oriented X 3, normal speech- Hemodialysis AccessType: AV fistulaLocation: right upper armComments: bruit present, thrill presentSkin: dryPsychiatry: normal mood, normal judgment/insight- ResultsResult Diagrams: 07/29/24 04:12 07/29/24 04:30Findings/Data: Chemistry 07/29/24 Range/Units 04:30Sodium 141 (136-142) mmol/LPotassium 4.5 (3.5-5.1) mmol/LChloride 103 (98-107) mmol/LCarbon Dioxide 31 (21-32) mmol/LPatient Name: THAO BURK Acct: [id number] Unit: [id number] Page 4Anion Gap 7 (5-14) mMol/LBUN 15 (7-18) mg/dLCreatinine 5.79 H (0.55-1.02) mg/dLBUN/Creatinine Ratio 2.6Glucose 84 (74-106) mg/dLCalcium 8.3 L (8.5-10.1) mg/dLPhosphorus 3.8 (2.5-4.9) mg/dLMagnesium 2.5 H (1.8-2.4) mg/dLIron 39 L (50-170) mcg/dLTIBC 214 L (250-450) mcg/dLIron Saturation 18.2 L (25.0-55.0) % SatAlbumin 3.4 (3.4-5.0) g/dL POC Glucose 07/28/24 07/28/24 Range/Units 15:42 19:58POC Glucose 170 H 97 (70-110) mg/dl Hematology 07/29/24 Range/Units 04:12WBC 4.4 L (4.8-10.8) K/uLRBC 2.83 L (4.10-5.30) M/uLHgb 8.7 L (12.4-16.2) g/dLHct 29.4 L (38.9-44.7) %MCV 103.9 H (81-96) fLMCH 30.7 (27.5-33.4) pgMCHC 29.6 L (32-36) g/dLPatient Name: THAO BURK Acct: [id number] Unit: [id number] Page 5RDW Coeff of [place] 15.9 H (12.0-14.8) %Plt Count 115 L (153-361) K/uLMPV 9.9 (8.5-12.1) fLGran % 76.0 (43.0-83.7) %Immature Gran % (Auto) 0.2 (0.0-0.5) %Lymph % (Auto) 13.7 (9.7-44.3) %Angelina % (Auto) 7.8 (1.8-12.7) %Eos % (Auto) 2.1 (0.0-6.0) %Baso % (Auto) 0.2 (0.0-1.0) %Nucleat RBC Rel Count 0.0 (0.0-0.2) %Gran # 3.33 (1.40-7.70) K/uLLymph # (Auto) 0.60 L (0.80-2.90) K/uLMono # (Auto) 0.34 (0.20- 0.80) K/uLEos # (Auto) 0.09 (0.00-0.30) K/uLBaso # (Auto) 0.01 (0.00-0.04) K/uLImmature Gran # (Auto) 0.01 (0.00-0.08) K/uLAbsolute Nucleated RBC 0.00 (0.00-0.01) K/uLResults: labs reviewed, current med profile rev'dDiagnosis, Assessment Plan- Diagnosis, Assessment PlanFree Text A P:ASSESSMENT1. ESRD2. RESPIRATORY FAILURE3. HYPERKALEMIA4. HYPERTENSION5. ANEMIAPt underwent HD last evening,. UF 3 L. respiratory status improved. electrolytes stable. blood pressure trending low. Iron deficiency noted, Hgb low but stablePLAN per Dr Daviosn HD tomorrow per her TTS schedulePatient Name: THAO BURK Acct: [id number] Unit: [id number] Page 6renal diet, continue fluid restrictionreplace iron, give epogen<Electronically signed by LUCAS Simms> 07/29/24 1205I reviewed the PA/GAS DESULFURIZER's chart. I agree with the assessment and care plan, and confirm thediagnosis(es).<Electronically signed by Wale Dwyer MD> 08/27/24 1549Patient Name: THAO BURK DIEUDONNE Acct: [id number] Unit: [id number] Page 7 January [place], [place] [address]Phone: Wcpkupymdsx Progress NotePatient Name: THAO BURKDOB: 1950 Age: 73 Sex: FAcct: [id number] MR#: [id number]: Willy DO Vladimir Author: Lyndsey,January LPatient Status: ADM IN Patient Location: [address]ADate of Admission/Service: 07/28/24Report Date/Time: 07/29/24 1012 Report Status: SignedReport#: [id number]- SubjectivePatient reports: YES feeling better, YES pain controlled, YES resting comfortablyObjective- GeneralVS/I O: Vital Signs - Last DocumentedTemperature 97.5 F 07/29/24 12:04Pulse 70 07/29/24 12:04Respiratory rate 14 07/29/24 12:04Respiratory source Observed 07/27/24 23:37Vital signs position Lying 07/27/24 23:37Blood pressure 99/66 L 07/29/24 12:04Non-invasive BP Mean Pressure 121 07/28/24 02:16Bedside pulse oximetry/SpO2 100 07/29/24 12:04Patient on Oxygen 07/28/24 02:20O2 liters per minute 4 07/29/24 07:37Level of consciousness Alert 07/29/24 12:22MEWS score - adult 1 07/29/24 12:04Weight 86.6 kg 07/28/24 02:51Weight source Standing scale 07/28/24 02:51Patient Name: THAO BURK Acct: [id number] Unit: [id number] Page 1Body surface area 2.04 07/28/24 02:51Body mass index 30.7 07/28/24 02:51Height 5 ft 6.14 in 07/28/24 02:51Height source Stated/Reported 07/28/24 02:51 Intake Output 07/28/24 07/29/24 07/30/24 06:59 06:59 06:59Intake Total 3480 / 3480 360 / 360Balance 3480 / 3480 360 / 360Intake: Oral 480 / 480 360 / 360 HD net positive volume balance 3000 / 3000Other: Breakfast 50%Patient Weight: 86.6 kg 07/28/24 02:51Medications: Active MedicationsGeneric Name Dose Route Start Last Admin Trade Name Elham PRN Reason Stop Dose AdminAcetaminophen 650 mg 07/28/24 03:56 Acetaminophen 325 Mg Tab PO 09/26/24 03:55 Q6H PRN PRN PAIN 1-3/TEMP> 100.5/38.1C/HAHydrocodone Bitart/Acetaminophen 1 tab 07/28/24 03:56 07/29/24 08:45 Hydrocodone 5 Mg/Acetaminophen 325 Mg Tab PO 09/26/24 03:55 1 tab Q6H PRN PRN AdministrationPatient Name: THAO BURK Acct: [id number] Unit: [id number] Page 2 Pain Scale 4-6Bisacodyl 10 mg 07/28/24 03:56 Bisacodyl 10 Mg Rectal Supp RECTAL 09/26/24 03:55 DAILY PRN PRN No Bowel Movements For 48 HrsCalcium Carbonate 1,000 mg 07/28/24 03:56 07/28/24 09:25 Calcium Carbonate 500 Mg Chew Tab PO 09/26/24 03:55 1,000 mg Q6H PRN PRN Administration DyspepsiaDextrose 15 gm 07/28/24 04:22 Dextrose 15 Gm Oral Gel Dose PO 09/26/24 04:21 DIRECTED PRN Hypoglycemia Per ProtocolDextrose/Water 25 gm 07/28/24 04:22 Dextrose 50% Water 25 Gm/50 Ml Disp Syringe IV 09/26/24 04:21 PRN PRN Hypoglycemia Per Protocol ProtocolDocusate Sodium 100 mg 07/28/24 09:00 07/29/24 08:46 Docusate Sodium 100 Mg Liquid-Filled Cap PO 09/26/24 08:59 Not Given BID SCHGuaifenesin/Dextromethorphan 10 ml 07/28/24 18:30 07/28/24 18:13 Guaifenesin/D-Methorphan Oral Syrup 200-20 Mg/10 Ml Ud Cup PO 09/26/24 18:29 10 ml Q6H PRN PRN Administration CoughHeparin Sodium (Porcine) 5,000 unit 07/28/24 08:00 07/29/24 08:45 Heparin Sodium (Porcine) 5000 Unit/Ml 1 Ml Vial SUBQ 09/26/24 07:59 5,000 unit Q8 SHENG AdministrationPatient Name: THAO BURK Acct: [id number] Unit: [id number] Page 3Hydralazine HCl 10 mg 07/28/24 04:22 Hydralazine Injection Solution 20 Mg/Ml 1 Ml Vial IV 09/26/24 04:21 Q4H PRN PRN SBP Greater Than 150Ferric Sodium Gluconate 110 mls @ 110 mls/hr 07/29/24 14:00Complex 125 mg/ Sodium IV 08/01/24 14:59Chloride Q24H SCHInsulin Glargine-yfgn 10 unit 07/28/24 09:00 07/29/24 08:45 Insulin Glargine-Yfgn 20 Units/0.2 Ml SUBQ 09/26/24 08:59 Not Given BID SCHInsulin Human Lispro 0 unit 07/28/24 07:30 07/29/24 12:11 Insulin Lispro 100 Unit/Ml SUBQ 09/26/24 07:29 Not Given ACHS [facility] ProtocolMorphine Sulfate 2 mg 07/28/24 03:56 Morphine Sulfate Injection Solution 2 Mg/Ml 1 Ml IV 09/26/24 03:55 Q4H PRN PRN Pain Scale 7-10Ondansetron HCl 4 mg 07/28/24 03:56 Ondansetron Injection Solution 4 Mg/2 Ml Sdv IV 09/26/24 03:55 Q6H PRN PRN Nausea / Vomiting Discontinued MedicationsDiscontinued MedicationsGeneric Name Dose Route Start Last AdminPatient Name: THAO BURK Acct: [id number] Unit: [id number] Page 4 Trade Name Freq PRN Reason Stop Dose AdminDextrose/Water 25 gm 07/28/24 06:11 07/28/24 06:41 Dextrose 50% Water 25 Gm/50 Ml Disp Syringe IV 07/28/24 06:12 25 gm ONCE ONE AdministrationEpoetin Krystyna-epbx 20,000 unit 07/29/24 14:00 Epoetin Krystyna-Epbx 10,000 Units/Ml Vial SUBQ 07/29/24 14:01 ONCE ONECalcium Gluconate/Sodium Chloride 1 gm in 50 mls @ 50 mls/hr 07/28/24 06:11 07/28/24 06:42 Calcium Gluc 1,000mg/50ml-Nacl IV 07/28/24 07:10 50 mls/hr X1ED STA AdministrationFerric Sodium Gluconate 110 mls @ 110 mls/hr 07/29/24 13:00Complex 125 mg/ Sodium IV 08/01/24 13:59Chloride Q24H SCHInsulin Human Regular 10 unit 07/28/24 06:30 07/28/24 06:41 Insulin Regular 100 Units/Ml IV 07/28/24 06:31 10 unit ONCE ONE AdministrationSodium Zirconium Cyclosilicate 10 gm 07/28/24 06:11 07/28/24 09:11 Sodium Zirconium Cyclosilicate 10 Gm Packet PO 07/28/24 06:12 Not Given ONCE ONE- Physical ExamGeneral appearance: alert, awake, oriented, pleasant, conversationalHead/Eyes: atraumatic, clear cornea, EOMI, normal conjunctiva/sclera, normal eyelids/periorb.,normocephalic, PERRLENT: moist mucosal membranes, normal pharynxNeck: non-tender, supple/no meningismus, no masses or swellingCardiovascular: murmur, normal capillary refill, regular rate rhythmRespiratory: aerating well, clear to auscultation, symmetric expansion, no distressAbdomen: obese, non-tender, normal bowel sounds, softExtremities: edema, moves allMusculoskeletal: normal inspectionNeuro/PACKAGE CLERK: alert, oriented X 3, normal speech- [place] Coma ScoreEye opening: (4) SpontaneousVerbal response: (5) OrientedPatient Name: THAO BURK Acct: [id number] Unit: [id number] Page 5Best motor response: (6) Obeys commandsGCS Score (Copyright Sir Delfino Irvin): 15- Physical Exam ...Skin: dry, normal color, normal temperature- Physical Exam ...Lymphatics: neck normalPsychiatry: normal affect, normal judgment/insight, normal mood- ResultsFindings/Data: Chemistry 07/29/24 Range/Units 04:30Sodium 141 (136- 142) mmol/LPotassium 4.5 (3.5-5.1) mmol/LChloride 103 (98-107) mmol/LCarbon Dioxide 31 (21-32) mmol/LAnion Gap 7 (5-14) mMol/LBUN 15 (7-18) mg/dLCreatinine 5.79 H (0.55-1.02) mg/dLBUN/Creatinine Ratio 2.6Glucose 84 (74-106) mg/dLCalcium 8.3 L (8.5-10.1) mg/dLPhosphorus 3.8 (2.5-4.9) mg/dLMagnesium 2.5 H (1.8-2.4) mg/dLIron 39 L (50-170) mcg/dLTIBC 214 L (250-450) mcg/dLIron Saturation 18.2 L (25.0-55.0) % SatAlbumin 3.4 (3.4-5.0) g/dL POC GlucosePatient Name: THAO BURK Acct: [id number] Unit: [id number] Page 6 07/28/24 07/28/24 07/29/24 Range/Units 15:42 19:58 07:37POC Glucose 170 H 97 75 (70-110) mg/dl 07/29/24 Range/Units 11:58POC Glucose 105 (70-110) mg/dl Hematology 07/29/24 Range/Units 04:12WBC 4.4 L (4.8- 10.8) K/uLRBC 2.83 L (4.10-5.30) M/uLHgb 8.7 L (12.4-16.2) g/dLHct 29.4 L (38.9-44.7) %MCV 103.9 H (81-96) fLMCH 30.7 (27.5-33.4) pgMCHC 29.6 L (32-36) g/dLRDW Coeff of [place] 15.9 H (12.0-14.8) %Plt Count 115 L (153-361) K/uLMPV 9.9 (8.5-12.1) fLGran % 76.0 (43.0-83.7) %Immature Gran % (Auto) 0.2 (0.0-0.5) %Lymph % (Auto) 13.7 (9.7- 44.3) %Angelina % (Auto) 7.8 (1.8-12.7) %Eos % (Auto) 2.1 (0.0-6.0) %Baso % (Auto) 0.2 (0.0-1.0) %Nucleat RBC Rel Count 0.0 (0.0-0.2) %Patient Name: THAO BURK Acct: [id number] Unit: [id number] Page 7Gran # 3.33 (1.40-7.70) K/uLLymph # (Auto) 0.60 L (0.80-2.90) K/uLMono # (Auto) 0.34 (0.20-0.80) K/uLEos # (Auto) 0.09 (0.00-0.30) K/uLBaso # (Auto) 0.01 (0.00-0.04) K/uLImmature Gran # (Auto) 0.01 (0.00-0.08) K/uLAbsolute Nucleated RBC 0.00 (0.00-0.01) K/uLResults: labs reviewed, vital signs stable, current med profile rev'dTreatment Prophylaxis- Treatment ProphylaxisOxygen: nasal cannulaLines: peripheralDiagnosis, Assessment Plan- Diagnosis, Assessment PlanFree Text A P:# shortness of breath:* Possibly associated volume overload, BNP greater than 30,000* Continue O2 supplementation* Wean as able# hyperkalemia:* Continue Lokelma* Administer insulin and D50* Administer calcium gluconate* Continuous tele monitoring* Nephrology consulted and following# end- stage renal disease on hemodialysis:* Nephrology consulted and following* The patient normally Monday dialysis* Patient received dialysis yesterday# hypertension:* Continue home medications* Continue IV hydralazine p.o.* Monitor blood pressure closely# hyperlipidemia:* Continue home medications* Lipid panel results noted# diabetes:Patient Name: THAO BURK Acct: [id number] Unit: [id number] Page 8* Monitor fingerstick blood glucose* Continue insulin glargine* Continue insulin sliding scale* Continue carb consistent diet* hemoglobin A1c 5.2* Adjust algorithm as needed* Avoid hypoglycemia* Diabetes Education by dietitian# anemia* Iron panel results reviewed, deficiency noted* Replace iron, give Epogen# DVT prophylaxis:* Heparin subQFurther plans depend on hospital course.Prognosis: GuardedCode status: Full codeDisposition: To be determinedHigh risk/complex clinical decision making as aboveConsultants: nephrologyCode status: full codePlan discussed with: patient, nurse, interdisc care team (Case Management, Pharmacy)Quality- ReviewedCurrent medication review:I attest that the foregoing medication list in the medical record is true, accurate, and complete tothe best of my knowledge.- VTE ProphylaxisVTE prophylaxis initiated: yes- Advanced Care Plan 65 or OlderDiscussion included: power of county attorney (Daughter Robina Burk should be contactedin the event patient cannot advocate for herself), code status (full code)- BMI Screening > 25 or < 18.5Patient's BMI:Current BMI: 30.7 07/28/24 02:51- Tobacco Use/CounselingTobacco use/counseling: non tobacco user, no counseling needed- HTN Screening/Follow-upLast documented vitals: Vital Signs - Last DocumentedTemperature 97.5 F 07/29/24 12:04Patient Name: THAO BURK Acct: [id number] Unit: [id number] Page 9Pulse 70 07/29/24 12:04Respiratory rate 14 07/29/24 12:04Respiratory source Observed 07/27/24 23:37Vital signs position Lying 07/27/24 23:37Blood pressure 99/66 L 07/29/24 12:04Non-invasive BP Mean Pressure 121 07/28/24 02:16Bedside pulse oximetry/SpO2 100 07/29/24 12:04Patient on Oxygen 07/28/24 02:20O2 liters per minute 4 07/29/24 07:37Level of consciousness Alert 07/29/24 12:22MEWS score - adult 1 07/29/24 12:04Weight 86.6 kg 07/28/24 02:51Weight source Standing scale 07/28/24 02:51Body surface area 2.04 07/28/24 02:51Body mass index 30.7 07/28/24 02:51Height 5 ft 6.14 in 07/28/24 02:51Height source Stated/Reported 07/28/24 02:51Blood pressure ranges/guide:Screening for Hypertension and follow up measure #317Blood pressure parametersNormal B/P SBP </= 119 DBP </= 79Pre-hypertensive SBP 120-139 DBP 80-89Hypertensive SBP >/= 140 DBP >/= 90Attestations- Agree w/findings planPatient Name: THAO BURK Acct: [id number] Unit: [id number] Page 10 Note 1Attest: I agree with the findings and plan as documented by Odilia Solorio APRN<Electronically signed by LUCAS Solorio> 07/29/24 1417I reviewed the PA/GAS DESULFURIZER?s chart. I agree with the assessment and care plan, and confirm thediagnosis(es).<Electronically signed by Chanda Jauregui MD> 07/30/24 0903Patient Name: THAO BURK Acct: [id number] Unit: [id number] Page 11 Noam Sterling [facility]- [address] [place], [place] [address]Phone: Heyaaymuree Progress NotePatient Name: THAO BURKDOB: 1950 Age: 73 Sex: FAcct: [id number] MR#: [id number]: Chanda Jauregui MD Author: Hallie Santacruz NPPatient Status: ADM IN Patient Location: [facility] FR.402-ADate of Admission/Service: 07/28/24Report Date/Time: 07/28/24 1223 Report Status: SignedReport#: [id number]- SubjectiveChief Complaint: Patient resting comfortably in bed and was assisted to recliner. Patient normallyreceives dialysis on Monday and Monday and last dialysis was on . Patient states that at that time they only took off approximately 0.7 L of fluid when they normally take offapproximately 3.5 L. patient states that after dialysis on she was weaker than usual andrequired assistance to get into the house which is unlike her. Patient states that since dialysisshe is continued to feel poorly and developed diarrhea Monday evening. Patient was unable to attenddialysis Monday morning due to diarrhea and generalized weakness. Patient did present to [facility] and was transferred for possible emergent dialysis. Patient was seen by with Nephrology. The patient does have coarse lung sounds appears to be volume overloaded.Does report increasing shortness of breath with even minimal exertion. Patient states that shenormally uses supplemental oxygen chin on an occasional basis but since she is had to useoxygen continuously. At home patient would normally be on 2 L by nasal cannula here in the hospitalshe is requiring 4 L by nasal cannula.Patient reports: YES complaints, YES abdominal pain, YES chest pain, YES pain controlled, YESresting comfortably, YES shortness of breath, NO diarrhea, NO nauseaObjective- GeneralVS/I O: Vital Signs - Last DocumentedTemperature 36.3 C 07/28/24 10:59Pulse 66 07/28/24 10:59Respiratory rate 16 07/28/24 10:59Respiratory source Observed 07/27/24 23:37Vital signs position Lying 07/27/24 23:37Blood pressure 136/79 L 07/28/24 10:59Non-invasive BP Mean Pressure 121 07/28/24 02:16Patient Name: THAO BURK Acct: [id number] Unit: [id number] Page 1Bedside pulse oximetry/SpO2 100 07/28/24 10:59Patient on Oxygen 07/28/24 02:20O2 liters per minute 2 07/28/24 03:16Level of consciousness Alert 07/28/24 07:18MEWS score - adult 2 07/28/24 05:20Weight 86.6 kg 07/28/24 02:51Weight source Standing scale 07/28/24 02:51Body surface area 2.04 07/28/24 02:51Body mass index 30.7 07/28/24 02:51Height 1.68 m 07/28/24 02:51Height source Stated/Reported 07/28/24 02:51Patient Weight: 86.6 kg 07/28/24 02:51Medications: Active MedicationsGeneric Name Dose Route Start Last Admin Trade Name Freq PRN Reason Stop Dose AdminAcetaminophen 650 mg 07/28/24 03:56 Acetaminophen 325 Mg Tab PO 09/26/24 03:55 Q6H PRN PRN PAIN 1-3/TEMP> 100.5/38.1C/HAHydrocodone Bitart/Acetaminophen 1 tab 07/28/24 03:56 Hydrocodone 5 Mg/Acetaminophen 325 Mg Tab PO 09/26/24 03:55 Q6H PRN PRN Pain Scale 4-6Bisacodyl 10 mg 07/28/24 03:56 Bisacodyl 10 Mg Rectal Supp RECTAL 09/26/24 03:55 DAILY PRN PRNPatient Name: THAO BURK Acct: [id number] Unit: [id number] Page 2 No Bowel Movements For 48 HrsCalcium Carbonate 1,000 mg 07/28/24 03:56 07/28/24 09:25 Calcium Carbonate 500 Mg Chew Tab PO 09/26/24 03:55 1,000 mg Q6H PRN PRN Administration DyspepsiaDextrose 15 gm 07/28/24 04:22 Dextrose 15 Gm Oral Gel Dose PO 09/26/24 04:21 DIRECTED PRN Hypoglycemia Per ProtocolDextrose/Water 25 gm 07/28/24 04:22 Dextrose 50% Water 25 Gm/50 Ml Disp Syringe IV 09/26/24 04:21 PRN PRN Hypoglycemia Per Protocol ProtocolDocusate Sodium 100 mg 07/28/24 09:00 07/28/24 09:11 Docusate Sodium 100 Mg Liquid-Filled Cap PO 09/26/24 08:59 100 mg BID SHENG AdministrationHeparin Sodium (Porcine) 5,000 unit 07/28/24 08:00 07/28/24 09:11 Heparin Sodium (Porcine) 5000 Unit/Ml 1 Ml Vial SUBQ 09/26/24 07:59 5,000 unit Q8 SHENG AdministrationHydralazine HCl 10 mg 07/28/24 04:22 Hydralazine Injection Solution 20 Mg/Ml 1 Ml Vial IV 09/26/24 04:21 Q4H PRN PRN SBP Greater Than 150Insulin Glargine-yfgn 10 unit 07/28/24 09:00 07/28/24 09:11 Insulin Glargine-Yfgn 20 Units/0.2 Ml SUBQ 09/26/24 08:59 10 unit BID SHENG AdministrationInsulin Human Lispro 0 unit 07/28/24 07:30 07/28/24 11:06 Insulin Lispro 100 Unit/Ml SUBQ 09/26/24 07:29 Not GivenPatient Name: THAO BURK Acct: [id number] Unit: [id number] Page 3 ACHS SHENG ProtocolMorphine Sulfate 2 mg 07/28/24 03:56 Morphine Sulfate Injection Solution 2 Mg/Ml 1 Ml IV 09/26/24 03:55 Q4H PRN PRN Pain Scale 7-10Ondansetron HCl 4 mg 07/28/24 03:56 Ondansetron Injection Solution 4 Mg/2 Ml Sdv IV 09/26/24 03:55 Q6H PRN PRN Nausea / Vomiting Discontinued MedicationsDiscontinued MedicationsGeneric Name Dose Route Start Last Admin Trade Name Freq PRN Reason Stop Dose AdminDextrose/Water 25 gm 07/28/24 06:11 07/28/24 06:41 Dextrose 50% Water 25 Gm/50 Ml Disp Syringe IV 07/28/24 06:12 25 gm ONCE ONE AdministrationCalcium Gluconate/Sodium Chloride 1 gm in 50 mls @ 50 mls/hr 07/28/24 06:11 07/28/24 06:42 Calcium Gluc 1,000mg/50ml-Nacl IV 07/28/24 07:10 50 mls/hr X1ED STA AdministrationInsulin Human Regular 10 unit 07/28/24 06:30 07/28/24 06:41 Insulin Regular 100 Units/Ml IV 07/28/24 06:31 10 unit ONCE ONE AdministrationSodium Zirconium Cyclosilicate 10 gm 07/28/24 06:11 07/28/24 09:11 Sodium Zirconium Cyclosilicate 10 Gm Packet PO 07/28/24 06:12 Not GivenPatient Name: THAO BURK Acct: [id number] Unit: [id number] Page 4 ONCE ONE- Physical ExamGeneral appearance: alert, awake, oriented, no acute distress, pleasant, conversational, mentalstatus normal, no respiratory distressHead/Eyes: atraumatic, clear cornea, EOMI, normal conjunctiva/sclera, normal eyelids/periorb.,normocephalic, PERRLENT: moist mucosal membranes, normal pharynxNeck: non-tender, supple/no meningismus, no masses or swellingCardiovascular: normal capillary refill, normal heart sounds, regular rate rhythmRespiratory: aerating well, clear to auscultation, symmetric expansion, no distressAbdomen: obese, non-tender, normal bowel sounds, softRectal: not indicatedExtremities: edema, moves all, no calf tenderness, no cyanosisMusculoskeletal: normal inspectionNeuro/PACKAGE CLERK: alert, oriented X 3, CNII- XII intact, normal speech- Physical Exam ...Skin: dry, normal temperature- Physical Exam ...Lymphatics: neck normalPsychiatry: normal judgment/insight, normal mood- ResultsFindings/Data: Chemistry 07/27/24 07/28/24 07/28/24 Range/Units 23:10 05:00 05:00Sodium 143 H 139 (136-142) mmol/LPotassium 6.1 H* 5.4 H (3.5-5.1) mmol/LChloride 106 104 (98-107) mmol/LCarbon Dioxide 31 23 (21-32) mmol/LAnion Gap 6 12 (5-14) mMol/LBUN 25 H 26 H (7-18) mg/dLCreatinine 8.03 H* 8.22 H* (0.55-1.02) mg/dLBUN/Creatinine Ratio 3.1 3.2Glucose 113 H 153 H (74-106) mg/dLMean Blood Glucose 102.54Patient Name: THAO BURK Acct: [id number] Unit: [id number] Page 5Hemoglobin A1c 5.2 (4.5-6.2) %Calcium 8.7 8.5 (8.5-10.1) mg/dLPhosphorus 5.1 H 5.1 H (2.5-4.9) mg/dLMagnesium 3.3 H (1.8-2.4) mg/dLTotal Bilirubin 1.0 (0.2-1.0) mg/dLAST 18 (15-37) IU/LALT 17 (14-59) IU/LTotal Alk Phosphatase 170 H (46-116) IU/LSerum Total Protein 7.0 (6.4-8.2) g/dLAlbumin 3.7 3.4 (3.4-5.0) g/dLGlobulin 3.3 g/dLAlbumin/Globulin Ratio 1.1Triglycerides 79 (0-149) mg/dLCholesterol 110 (0- 199) mg/dLLDL Cholesterol 31 (0-99) mg/dLVLDL Cholesterol 16 (5-40) mg/dLNon-HDL (LDL + VLDL) TNPHDL Cholesterol 63 H (40-60) mg/dLLDL/HDL Ratio 0.5Cholesterol/HDL Ratio 1.7TSH 2.875 (0.358-3.740) mIU/mL POC Glucose 07/28/24 07/28/24 Range/Units 06:38 10:57POC Glucose 109 148 H (70-110) mg/dl CoagulationPatient Name: THAO BURK Acct: [id number] Unit: [id number] Page 6 07/27/24 Range/Units 23:10PT 10.8 (9.3-12.1) SecondsINR (Anticoag Therapy) 1.03 Hematology 07/27/24 07/28/24 Range/Units 23:10 05:00WBC 5.0 4.5 L (4.8-10.8) K/uLRBC 2.79 L 2.74 L (4.10- 5.30) M/uLHgb 8.6 L 8.4 L (12.4-16.2) g/dLHct 29.1 L 28.8 L (38.9-44.7) %MCV 104.3 H 105.1 H (81-96) fLMCH 30.8 30.7 (27.5-33.4) pgMCHC 29.6 L 29.2 L (32-36) g/dLRDW Coeff of [place] 16.3 H 16.4 H (12.0-14.8) %Plt Count 137 L 126 L (153-361) K/uLMPV 9.8 10.4 (8.5-12.1) fLGran % 71.9 73.0 (43.0-83.7) %Immature Gran % (Auto) 0.8 H 0.7 H (0.0-0.5) %Lymph % (Auto) 18.9 16.1 (9.7-44.3) %Angelina % (Auto) 7.8 8.5 (1.8-12.7) %Eos % (Auto) 0.4 1.3 (0.0-6.0) %Baso % (Auto) 0.2 0.4 (0.0-1.0) %Nucleat RBC Rel Count 0.0 0.0 (0.0-0.2) %Gran # 3.61 3.27 (1.40-7.70) K/uLLymph # (Auto) 0.95 0.72 L (0.80-2.90) K/uLPatient Name: THAO BURK Acct: [id number] Unit: [id number] Page 7Mono # (Auto) 0.39 0.38 (0.20-0.80) K/uLEos # (Auto) 0.02 0.06 (0.00-0.30) K/uLBaso # (Auto) 0.01 0.02 (0.00-0.04) K/uLImmature Gran # (Auto) 0.04 0.03 (0.00-0.08) K/uLAbsolute Nucleated RBC 0.00 0.00 (0.00-0.01) K/uLRadiology Data:Recent ImpressionsChest X-Ray 07/27/24 23:43IMPRESSION:Pulmonary vascular congestion. Right basilar opacities representing atelectasis or airspace diseasesuch as mild edema or infection.CRITICAL RESULT:No.COMMUNICATION:Per this written report.Drafted by Aroldo Garcia MD on 07/28/2024 12:17 AMFinal report signed by Aroldo Garcia MD on 07/28/2024 12:19 AMResults: labs reviewed, vital signs stable, x- ray personally reviewed, current med profile rev'dTreatment Prophylaxis- Treatment ProphylaxisOxygen: nasal cannulaLines: peripheralDiagnosis, Assessment Plan- Diagnosis, Assessment PlanFree Text A P:# shortness of breath:* Possibly associated volume overload, BNP greater than 30,000* Continue O2 supplementation* Wean as able# hyperkalemia:* Continue Lokelma* Administer insulin and D50* Administer calcium gluconate* Continuous tele monitoring* Follow-up with nephrology evaluation recommendationsPatient Name: THAO BURK Acct: [id number] Unit: [id number] Page 8# end-stage renal disease on hemodialysis:* Follow-up with nephrology evaluation and recommendations* The patient normally Monday dialysis* Will receive emergent dialysis today# hypertension:* Continue home medications* Continue IV hydralazine p.o.* Monitor blood pressure closely# hyperlipidemia:* Continue home medications* Follow-up with lipid panel# diabetes:* Monitor fingerstick blood glucose* Continue insulin glargine* Continue insulin sliding scale* Continue carb consistent diet* Follow-up with hemoglobin A1c* Adjust algorithm as needed* Avoid hypoglycemia* Diabetes Education by dietitian# DVT prophylaxis:* Continue prophylactic dose of subcutaneous heparinFurther plans depend on hospital course.Prognosis: GuardedCode status: Full codeDisposition: To be determinedHigh risk/complex clinical decision making as aboveOrders:My Orders Category Date Time Status PHOS [Phosphorus] Routine Lab 07/28/24 05:00 CompletedConsultants: nephrologyPlan discussed with: patient, consultantsQuality- ReviewedCurrent medication review:I attest that the foregoing medication list in the medical record is true, accurate, and complete to the best of my knowledge.Unable to obtain:Unable to obtain an accurate home medication list at this time. The patient is in an urgent orPatient Name: THAO BURK Acct: [id number] Unit: [id number] Page 9emergent medical situation where time is of the essence. To delay treatment would jeopardize thepatient's health status on the day of the encounter.- VTE ProphylaxisVTE prophylaxis initiated: yes- Advanced Care Plan 65 or OlderDiscussion included: power of county attorney (Daughter Robina Burk should be contactedin the event patient cannot advocate for herself), code status (full code)- BMI Screening > 25 or < 18.5Patient's BMI:Current BMI: 30.7 07/28/24 02:51- Tobacco Use/CounselingTobacco use/counseling: non tobacco user, no counseling needed- HTN Screening/Follow-upLast documented vitals: Vital Signs - Last DocumentedTemperature 36.3 C 07/28/24 10:59Pulse 66 07/28/24 10:59Respiratory rate 16 07/28/24 10:59Respiratory source Observed 07/27/24 23:37Vital signs position Lying 07/27/24 23:37Blood pressure 136/79 L 07/28/24 10:59Non-invasive BP Mean Pressure 121 07/28/24 02:16Bedside pulse oximetry/SpO2 100 07/28/24 10:59Patient on Oxygen 07/28/24 02:20O2 liters per minute 2 07/28/24 03:16Level of consciousness Alert 07/28/24 07:18MEWS score - adult 2 07/28/24 05:20Weight 86.6 kg 07/28/24 02:51Weight source Standing scale 07/28/24 02:51Body surface area 2.04 07/28/24 02:51Body mass index 30.7 07/28/24 02:51Patient Name: APOLLO THAOJOMAR BRO Acct: [id number] Unit: [id number] Page 10Height 1.68 m 07/28/24 02:51Height source Stated/Reported 07/28/24 02:51Blood pressure ranges/guide:Screening for Hypertension and follow up measure #317Blood pressure parametersNormal B/P SBP </= 119 DBP </= 79Pre-hypertensive SBP 120-139 DBP 80-89Hypertensive SBP >/= 140 DBP >/= 90Attestations- AttestationAttestation needed: supervising physician- Agree w/findings plan Note 1Attest:Agree with the findings and plan as documented by Hallie Santacruz APRN* my personal evaluation is[ ]<Electronically signed by GAS DESULFURIZER Hallie Santacruz> 07/28/24 1232I reviewed the PA/GAS DESULFURIZER?s chart. I agree with the assessment and care plan, and confirm thediagnosis(es).<Electronically signed by Chanda Jauregui MD> 07/28/24 2131Patient Name: THAO BURK Acct: [id number] Unit: [id number] Page 11 Geneidy Ayman C-[id number]-2024 [facility] [address]Itsjt: [phone] Grvvdzlmpi Consultation NotePatient Name: THAO BURK CUSTARDDOB: 1950 Age: 73 Sex: FAcct: [id number] MR#: [id number]: Willy Gilbert DO Author: Wale Dwyer APatient Status: DIS IN Patient Location: FR.4S FR.402-ADate of Admission/Service: 07/28/24Report Date/Time: 07/28/24 1223 Report Status: SignedReport#: [id number] of Present Illness- HPIRequesting clinician: Tk Edwards for consult: ESRD, HyperkalemiaChief complaint: Weakness, SOBHPI:73-year-old female with known history of diabetes, hypertension, dyslipidemia, end-stage renaldisease on outpatient hemodialysis in [facility]. He is under care of Nephrology. Dialyzeson Monday. Missed her dialysis yesterday. She reports that she has been feelingincreasingly shortness of breath. She also has had diarrhea since Monday night. She presented tot emergency room last night and was noted to have significant pulmonary edema with effusion. Sheis also hyperkalemic. He is currently on 4 L nasal cannula oxygen. She normally does not useoxygen at home on regular basis. She reports that she does not make much urine. We are asked seeher in consultation for management of end-stage renal diseaseHistory- Past Medical HistoryMedical History: History, Medical (Last Updated 07/28/24 @ 02:21 by Tk Marsh MD)CHF (congestive heart failure) (Medical) I50.9Diabetes (Medical) E11.9ESRD (end stage renal disease) on dialysis (Medical) N18.6, Z99.2Hyperlipidemia (Medical) E78.5Hypertension (Medical) I10- Past Surgical HistorySurgical History: History, Surgical (Last Updated 07/28/24 @ 02:21 by Tk Marsh MD)History of cholecystectomy (Surgical) Z90.49History of permanent cardiac pacemaker placement (Surgical) Z95.0- Family HistoryFamily History:Patient Name: THAO BURK Acct: [id number] Unit: [id number] Page 1 Family History by Condition (Last Updated 07/28/24 @ 02:20 by Tk Marsh MD)Diabetes MOTHERHypertension FATHER- Social HistoryAlcohol use: denies EtOH useDrug use: denies recreational drugsSmoking status for patients 13 years old or older: Never SmokerOther social history: good social support- Medication/Allergy-Vaccine HxMedications:Rx, Patient Hx, Sample Medication Instructions Recorded Confirmed Last Taken Typebisoprolol fumarate 10 mg tablet mg 07/28/24 07/25/24 Historybrimonidine 0.2 % eye drops drp ophthalmic (eye) 07/28/24 Unknown Historydorzolamide 22.3 mg-timolol 6.8 ophthalmic (eye) 07/28/24 Unknown Historymg/mL eye dropsfolic acid 1 mg tablet 07/28/24 07/25/24 Historyfurosemide 80 mg tablet mg 07/28/24 07/25/24 Historyipratropium bromide 0.02 % 07/28/24 Unknown Historysolution for inhalationmethocarbamol 500 mg tablet mg 07/28/24 07/25/24 Historyomeprazole 40 mg capsule,delayed mg 07/28/24 Unknown Historyreleasepantoprazole 40 mg tablet,delayed mg PO 07/28/24 07/25/24 Historyreleaserifaximin 550 mg tablet (Xifaxan) mg BID 07/28/24 07/25/24 Historysevelamer carbonate 800 mg tablet mg 07/28/24 07/25/24 HistoryCurrent Hospital MedicationsPatient Name: THAO BURK Acct: [id number] Unit: [id number] Page 2Generic Name Dose Route Start Last Admin Trade Name Freq PRN Reason Stop Dose AdminAcetaminophen 650 mg 07/28/24 03:56 Acetaminophen 325 Mg Tab PO 09/26/24 03:55 Q6H PRN PRN PAIN 1-3/TEMP> 100.5/38.1C/HAHydrocodone Bitart/Acetaminophen 1 tab 07/28/24 03:56 Hydrocodone 5 Mg/Acetaminophen 325 Mg Tab PO 09/26/24 03:55 Q6H PRN PRN Pain Scale 4-6Bisacodyl 10 mg 07/28/24 03:56 Bisacodyl 10 Mg Rectal Supp RECTAL 09/26/24 03:55 DAILY PRN PRN No Bowel Movements For 48 HrsCalcium Carbonate 1,000 mg 07/28/24 03:56 07/28/24 09:25 Calcium Carbonate 500 Mg Chew Tab PO 09/26/24 03:55 1,000 mg Q6H PRN PRN Administration DyspepsiaDextrose 15 gm 07/28/24 04:22 Dextrose 15 Gm Oral Gel Dose PO 09/26/24 04:21 DIRECTED PRN Hypoglycemia Per ProtocolDextrose/Water 25 gm 07/28/24 04:22 Dextrose 50% Water 25 Gm/50 Ml Disp Syringe IV 09/26/24 04:21 PRN PRN Hypoglycemia Per Protocol ProtocolDocusate Sodium 100 mg 07/28/24 09:00 07/28/24 09:11 Docusate Sodium 100 Mg Liquid-Filled Cap PO 09/26/24 08:59 100 mgPatient Name: THAO BURK Acct: [id number] Unit: [id number] Page 3 BID SHENG AdministrationHeparin Sodium (Porcine) 5,000 unit 07/28/24 08:00 07/28/24 09:11 Heparin Sodium (Porcine) 5000 Unit/Ml 1 Ml Vial SUBQ 09/26/24 07:59 5,000 unit Q8 SHENG AdministrationHydralazine HCl 10 mg 07/28/24 04:22 Hydralazine Injection Solution 20 Mg/Ml 1 Ml Vial IV 09/26/24 04:21 Q4H PRN PRN SBP Greater Than 150Insulin Glargine-yfgn 10 unit 07/28/24 09:00 07/28/24 09:11 Insulin Glargine-Yfgn 20 Units/0.2 Ml SUBQ 09/26/24 08:59 10 unit BID SHENG AdministrationInsulin Human Lispro 0 unit 07/28/24 07:30 07/28/24 11:06 Insulin Lispro 100 Unit/Ml SUBQ 09/26/24 07:29 Not Given ACHS SHENG ProtocolMorphine Sulfate 2 mg 07/28/24 03:56 Morphine Sulfate Injection Solution 2 Mg/Ml 1 Ml IV 09/26/24 03:55 Q4H PRN PRN Pain Scale 7-10Ondansetron HCl 4 mg 07/28/24 03:56 Ondansetron Injection Solution 4 Mg/2 Ml Sdv IV 09/26/24 03:55 Q6H PRN PRN Nausea / Vomiting- Medication/Allergy-Vaccine HxAllergies/Adverse Reactions:Allergiesceftriaxone [From Rocephin] Allergy (Verified 07/27/24 23:46) Rash-HivesPatient Name: THAO BURK Acct: [id number] Unit: [id number] Page 4Objective- GeneralVS/I O: Vital Signs Temp Pulse Resp BP Pulse Ox 07/28/24 10:59 36.3 C 66 16 136/79 L 100 07/28/24 07:18 105 18 128/91 H 100 07/28/24 05:20 36.4 C 107 18 136/91 H 100 07/28/24 02:50 36.3 C 73 14 118/79 L 87 L 07/28/24 02:20 69 27 H 99 07/28/24 02:16 69 95 07/28/24 02:16 160/95 H 07/28/24 02:10 69 99 07/28/24 02:00 69 22 H 99 07/28/24 02:00 151/97 H 07/28/24 01:50 69 23 H 100 07/28/24 01:45 69 15 99 07/28/24 01:45 146/94 H 07/28/24 01:43 100 07/28/24 01:40 70 99 07/28/24 01:40 142/92 H 07/28/24 01:30 69 26 H 100 07/28/24 01:20 69 26 H 07/28/24 01:10 69 26 H 07/28/24 01:00 69 23 H 07/28/24 01:00 132/84 07/28/24 00:50 69 21 H 07/28/24 00:45 69 22 H 99Patient Name: THAO BURK Acct: [id number] Unit: [id number] Page 5 07/28/24 00:45 130/79 L 07/28/24 00:40 69 24 H 99 07/28/24 00:30 69 31 H 96 07/28/24 00:30 131/75 L 07/28/24 00:20 69 23 H 100 07/28/24 00:15 69 23 H 99 07/28/24 00:15 131/87 07/28/24 00:10 69 23 H 99 07/28/24 00:00 69 24 H 100 07/28/24 00:00 131/81 07/27/24 23:50 69 100 07/27/24 23:48 100 07/27/24 23:45 69 100 07/27/24 23:45 125/72 L 07/27/24 23:43 100 07/27/24 23:40 69 24 H 100 07/27/24 23:37 69 21 H 115/63 L 100 07/27/24 23:31 69 96 07/27/24 23:31 115/63 L 07/27/24 23:30 36.6 C 69 18 115/63 L 100Medications: Active MedicationsGeneric Name Dose Route Start Last Admin Trade Name Elham PRN Reason Stop Dose AdminAcetaminophen 650 mg 07/28/24 03:56 Acetaminophen 325 Mg Tab PO 09/26/24 03:55 Q6H PRN PRNPatient Name: THAO BURK Acct: [id number] Unit: [id number] Page 6 PAIN 1-3/TEMP> 100.5/38.1C/HAHydrocodone Bitart/Acetaminophen 1 tab 07/28/24 03:56 Hydrocodone 5 Mg/Acetaminophen 325 Mg Tab PO 09/26/24 03:55 Q6H PRN PRN Pain Scale 4-6Bisacodyl 10 mg 07/28/24 03:56 Bisacodyl 10 Mg Rectal Supp RECTAL 09/26/24 03:55 DAILY PRN PRN No Bowel Movements For 48 HrsCalcium Carbonate 1,000 mg 07/28/24 03:56 07/28/24 09:25 Calcium Carbonate 500 Mg Chew Tab PO 09/26/24 03:55 1,000 mg Q6H PRN PRN Administration DyspepsiaDextrose 15 gm 07/28/24 04:22 Dextrose 15 Gm Oral Gel Dose PO 09/26/24 04:21 DIRECTED PRN Hypoglycemia Per ProtocolDextrose/Water 25 gm 07/28/24 04:22 Dextrose 50% Water 25 Gm/50 Ml Disp Syringe IV 09/26/24 04:21 PRN PRN Hypoglycemia Per Protocol ProtocolDocusate Sodium 100 mg 07/28/24 09:00 07/28/24 09:11 Docusate Sodium 100 Mg Liquid-Filled Cap PO 09/26/24 08:59 100 mg BID SHENG AdministrationHeparin Sodium (Porcine) 5,000 unit 07/28/24 08:00 07/28/24 09:11 Heparin Sodium (Porcine) 5000 Unit/Ml 1 Ml Vial SUBQ 09/26/24 07:59 5,000 unit Q8 SHENG AdministrationPatient Name: THAO BURK Acct: [id number] Unit: [id number] Page 7Hydralazine HCl 10 mg 07/28/24 04:22 Hydralazine Injection Solution 20 Mg/Ml 1 Ml Vial IV 09/26/24 04:21 Q4H PRN PRN SBP Greater Than 150Insulin Glargine-yfgn 10 unit 07/28/24 09:00 07/28/24 09:11 Insulin Glargine-Yfgn 20 Units/0.2 Ml SUBQ 09/26/24 08:59 10 unit BID SHENG AdministrationInsulin Human Lispro 0 unit 07/28/24 07:30 07/28/24 11:06 Insulin Lispro 100 Unit/Ml SUBQ 09/26/24 07:29 Not Given ACHS [facility] ProtocolMorphine Sulfate 2 mg 07/28/24 03:56 Morphine Sulfate Injection Solution 2 Mg/Ml 1 Ml IV 09/26/24 03:55 Q4H PRN PRN Pain Scale 7-10Ondansetron HCl 4 mg 07/28/24 03:56 Ondansetron Injection Solution 4 Mg/2 Ml Sdv IV 09/26/24 03:55 Q6H PRN PRN Nausea / Vomiting- Physical ExamGeneral appearance: respiratory support, awake, pleasant, conversant, other (some distress)Head/eyes: atraumatic, normocephalicENT: normal noseNeck: JVD present, full range of motion, non-tenderCardiovascular: murmur, lower extremity edema, regular rate and rhythmRespiratory: crackles, decreased breath sounds, symmetric expansionAbdomen: distended, normal bowel sounds, softGenitourinary: no foleyExtremities: swelling, non-tenderNeuro/PACKAGE CLERK: alert, oriented X 3, CN II-XII intact, normal speech- Hemodialysis AccessType: AV fistulaLocation: right upper armPatient Name: THAO BURK Acct: [id number] Unit: [id number] Page 8- ResultsFindings/Data:Hematology 07/27/24 07/28/24 Range/Units 23:10 05:00WBC 5.0 4.5 L (4.8-10.8) K/uLRBC 2.79 L 2.74 L (4.10-5.30) M/uLHgb 8.6 L 8.4 L (12.4-16.2) g/dLHct 29.1 L 28.8 L (38.9-44.7) %MCV 104.3 H 105.1 H (81-96) fLMCH 30.8 30.7 (27.5-33.4) pgMCHC 29.6 L 29.2 L (32-36) g/dLRDW Coeff of [place] 16.3 H 16.4 H (12.0-14.8) %Plt Count 137 L 126 L (153-361) K/uLMPV 9.8 10.4 (8.5-12.1) fLGran % 71.9 73.0 (43.0-83.7) %Immature Gran % (Auto) 0.8 H 0.7 H (0.0-0.5) %Lymph % (Auto) 18.9 16.1 (9.7-44.3) %Angelina % (Auto) 7.8 8.5 (1.8-12.7) %Eos % (Auto) 0.4 1.3 (0.0-6.0) %Baso % (Auto) 0.2 0.4 (0.0-1.0) %Nucleat RBC Rel Count 0.0 0.0 (0.0- 0.2) %Gran # 3.61 3.27 (1.40-7.70) K/uLLymph # (Auto) 0.95 0.72 L (0.80-2.90) K/uLMono # (Auto) 0.39 0.38 (0.20-0.80) K/uLEos # (Auto) 0.02 0.06 (0.00-0.30) K/uLBaso # (Auto) 0.01 0.02 (0.00-0.04) K/uLImmature Gran # (Auto) 0.04 0.03 (0.00-0.08) K/uLAbsolute Nucleated RBC 0.00 0.00 (0.00-0.01) K/uLPatient Name: THAO BURK Acct: [id number] Unit: [id number] Page 9Coagulation 07/27/24 Range/Units 23:10PT 10.8 (9.3-12.1) SecondsINR (Anticoag Therapy) 1.03Chemistry 07/27/24 07/28/24 07/28/24 Range/Units 23:10 01:27 05:00Sodium 143 H 139 (136-142) mmol/LPotassium 6.1 H* 5.4 H (3.5-5.1) mmol/LChloride 106 104 (98-107) mmol/LCarbon Dioxide 31 23 (21-32) mmol/LAnion Gap 6 12 (5-14) mMol/LBUN 25 H 26 H (7-18) mg/dLCreatinine 8.03 H* 8.22 H* (0.55-1.02) mg/dLEst GFR (CKD-EPI 2020) 5 5 mL/minBUN/Creatinine Ratio 3.1 3.2Glucose 113 H 153 H (74-106) mg/dLPOC Glucose (70-110) mg/dlMean Blood Glucose 102.54Hemoglobin A1c 5.2 (4.5-6.2) %Calcium 8.7 8.5 (8.5-10.1) mg/dLPhosphorus 5.1 H (2.5-4.9) mg/dLMagnesium (1.8-2.4) mg/dLTotal Bilirubin 1.0 (0.2-1.0) mg/dLAST 18 (15-37) IU/LPatient Name: THAO BURK Acct: [id number] Unit: [id number] Page 10ALT 17 (14-59) IU/LTotal Alk Phosphatase 170 H (46-116) IU/LTroponin I High Sens 17 16 (0-51) ng/LNT-Pro-B Natriuret Pep 30397 H (0-125) pg/mLSerum Total Protein 7.0 (6.4-8.2) g/dLAlbumin 3.7 (3.4-5.0) g/dLGlobulin 3.3 g/dLAlbumin/Globulin Ratio 1.1Triglycerides (0-149) mg/dLCholesterol (0-199) mg/dLLDL Cholesterol (0-99) mg/dLVLDL Cholesterol (5-40) mg/dLNon-HDL (LDL + VLDL)HDL Cholesterol (40-60) mg/dLLDL/HDL RatioCholesterol/HDL RatioTSH (0.358-3.740) mIU/mL 07/28/24 07/28/24 07/28/24 Range/Units 05:00 06:38 10:57Sodium (136-142) mmol/LPotassium (3.5-5.1) mmol/LChloride (98-107) mmol/LCarbon Dioxide (21-32) mmol/LAnion Gap (5-14) mMol/LBUN (7-18) mg/dLCreatinine (0.55-1.02) mg/dLEst GFR (CKD-EPI 2020) mL/minPatient Name: THAO BURK Acct: [id number] Unit: [id number] Page 11BUN/Creatinine RatioGlucose (74-106) mg/dLPOC Glucose 109 148 H (70-110) mg/dlMean Blood GlucoseHemoglobin A1c (4.5-6.2) %Calcium (8.5-10.1) mg/dLPhosphorus 5.1 H (2.5- 4.9) mg/dLMagnesium 3.3 H (1.8-2.4) mg/dLTotal Bilirubin (0.2-1.0) mg/dLAST (15-37) IU/LALT (14-59) IU/LTotal Alk Phosphatase (46-116) IU/LTroponin I High Sens (0- 51) ng/LNT-Pro-B Natriuret Pep (0-125) pg/mLSerum Total Protein (6.4-8.2) g/dLAlbumin 3.4 (3.4-5.0) g/dLGlobulin g/dLAlbumin/Globulin RatioTriglycerides 79 (0-149) mg/dLCholesterol 110 (0-199) mg/dLLDL Cholesterol 31 (0-99) mg/dLVLDL Cholesterol 16 (5-40) mg/dLNon-HDL (LDL + VLDL) TNPHDL Cholesterol 63 H (40-60) mg/dLLDL/HDL Ratio 0.5Cholesterol/HDL Ratio 1.7TSH 2.875 (0.358-3.740) mIU/mLPOC Qojludr95/13/24 06:38: POC Glucose 109Patient Name: THAO BURK Acct: [id number] Unit: [id number] Page 10:57: POC Glucose 148 HRadiology data:Radiology Impressions within the last 24 hrsChest X-Ray 07/27/24 23:43IMPRESSION:Pulmonary vascular congestion. Right basilar opacities representing atelectasis or airspace diseasesuch as mild edema or infection.CRITICAL RESULT:No.COMMUNICATION:Per this written report.Drafted by Aroldo Garcia MD on 07/28/2024 12:17 AMFinal report signed by Aroldo Garcia MD on 07/28/2024 12:19 AMDiagnosis, Assessment Plan- Problem List/A P(1) ESRD (end stage renal disease)Status: AcuteProblem A P:She missed her hemodialysis yesterday. She reports the only removed 0.5 L on . She appearsvolume overloaded. Plan hemodialysis today ultrafiltration 2-3 LRenal diet, 1200 cc oral fluid restriction(2) Respiratory failureStatus: AcuteProblem A P:Possibly related to volume overload with pulmonary edema/effusionsUltrafiltration dialysis today. Follow-up chest x-ray. Markedly elevated BNP. Would recommendechocardiogram(3) HyperkalemiaStatus: AcuteProblem A P:Related to ESRD and missing dialysis yesterday. Will dialyze against 2 mEq potassium bath(4) HypertensionStatus: AcuteProblem A P:Acceptable control.(5) AnemiaStatus: AcutePatient Name: THAO BURK Acct: [id number] Unit: [id number] Page 13Problem A P:Possibly multifactorial. Will check iron studies B12 and folate replace deficiency and placed onESA as well<Electronically signed by Wale Dwyer MD> 08/27/24 1549Patient Name: THAO BURK Acct: [id number] Unit: [id number] Page 14 Basilio Bela [id number] [place], [place] [address]Phone: WC PHYSICIAN RECORDPatient Name: THAO BURKDOB: 1950 Age: 73 Sex: FAcct: [id number] MR#: [id number]: Willy Gilbert DO Author: Bela Richmond DOPatient Status: DIS IN Patient Location: FR.4S FR.402-ADate of Admission/Service: 07/28/24Report Date/Time: 07/28/24 0042 Report Status: SignedReport#: [id number]/Wheezing- Free Text HPI Notes73 year old female with a past hx of esrd on hemodialysis reports for cp and sob. the pt haddiarrhea earlier today causing her to miss her dialysis treatment. several hours after missing herappt she began having constant sob and cp. symptoms have been moderate and worse with exertion. thept denies any recent illness or other sx/pain- GeneralConfirmed Patient: YesPatient Type: Existing patient- Chief ComplaintChief Complaint: Chest pain, Shortness of breath- Source of HistoryHx Obtained From: Patient- Timing of Symptoms)( Sudden in Onset?: NoOnset Occurred: TodaySymptom Duration: ConstantProgression since Onset: Gradually worsening- Associated SymptomsAssociated with: Reports Chest pain, Reports Other (Diarrhea)- GeneralTime Seen by Provider: 07/27/24 23:43Review of Systems- ROS StatementsAll systems rev neg: except as marked.- Basic Review of SystemsBasic ROS: EYES: No redness, GI: No abd pain/vomiting, : No dysuria/frequency, HEM: Nobleeding/bruising, NEURO: No change MS, NEURO: No focal deficit, PSYCH: NL thought contentPatient Name: THAO BURK Acct: [id number] Unit: [id number] Page 1- Focused Review of SystemsConstitutional: Denies Fatigue, Denies Weakness - generalizedEars/Nose/Throat: Denies Ear drainage L, Denies Ear ringing bilat, Denies Hearing loss L, DeniesMouth pain, Denies Nasal congestion, Denies Throat swelling, Denies Tongue swelling, DeniesToothacheRespiratory: Reports Dyspnea on exertion, Reports Shortness of breath, Denies Parox nocturnaldyspneaCardiovascular: Reports Chest pain, Denies Orthopnea, Denies Parox nocturnal dyspneaMusculoskeletal: Denies Extremity swelling, Denies Lumbar pain, Denies Thoracic painSkin: Denies Abrasion, Denies Abscess, Denies Bruising, Denies Diaphoresis, Denies SwellingPast Medical History - Adult- Past Medical HistoryMedical History: History, Medical (Last Updated 07/28/24 @ 02:21 by Tk Marsh MD)CHF (congestive heart failure) (Medical) I50.9Diabetes (Medical) E11.9ESRD (end stage renal disease) on dialysis (Medical) N18.6, Z99.2Hyperlipidemia (Medical) E78.5Hypertension (Medical) I10- Past Surgical HistorySurgical History: History, Surgical (Last Updated 07/28/24 @ 02:21 by Tk Marsh MD)History of cholecystectomy (Surgical) Z90.49History of permanent cardiac pacemaker placement (Surgical) Z95.0- Family HistoryFamily History: Family History by Member (Last Updated 07/28/24 @ 02:20 by Tk Marsh MD)FATHER HypertensionMOTHER Diabetes- Nursing NotesStated Complaint: CP/SOAAllergies/Adverse Reactions: AllergiesAllergy/AdvReac Type Severity Reaction Status Date / Timeceftriaxone [From Rocephin] Allergy Rash-Hives Verified 07/27/24 23:46Physical ExamPatient Name: THAO BURK Acct: [id number] Unit: [id number] Page 2- Initial Vital SignsVital Signs - First Documented: Vital Signs - First DocumentedTemperature 97.9 F 07/27/24 23:30Pulse 69 07/27/24 23:30Respiratory rate 18 07/27/24 23:30Blood pressure 115/63 L 07/27/24 23:30Bedside pulse oximetry/SpO2 100 07/27/24 23:30Patient on Room air 07/27/24 23:30Weight 84 kg 07/27/24 23:30Weight source Stated/Reported 07/27/24 23:30Body surface area 2.00 07/27/24 23:30Body mass index 29.9 07/27/24 23:30Height 1.68 m 07/27/24 23:30Height source Stated/Reported 07/27/24 23:30- Basic Physical ExamBasic PE: HEAD: Atraumatic/NC, EYES: PERRL,conj clear, ENT: Membranes moist, ABD: Soft/non-tender,EXT: No gross abnormality, SKIN: No rashes,warm/dry, NEURO: alert oriented, NEURO: gross movementNL, PSYCH: NL thought content- General/ConstitutionalGeneral/Const: Awake, Alert- MS NeckNeck: Atraumatic, Supple, No meningismus, Full range of motion, No swelling, Non-tender, No masses- Respiratory/ChestRespiratory/Chest: No respiratory distress, No rales, No rhonchi, No wheezing, No retractions, Nostridor, Other (crackles bilaterally with decreasesd breath sounds)- CardiovascularCardiovascular: Heart rate NL, Regular rhythm, Heart sounds NL, Peripheral circulation NLInterpretation Diagnostics- Lab Results InterpretationResult Diagrams: 07/30/24 03:58Patient Name: THAO BURK Acct: [id number] Unit: [id number] Page 3 07/30/24 03:58Results: Laboratory results within the last 24 hrs 07/27/24 Range/Units 23:10WBC 5.0 (4.8-10.8) K/uLRBC 2.79 L (4.10-5.30) M/uLHgb 8.6 L (12.4-16.2) g/dLHct 29.1 L (38.9-44.7) %MCV 104.3 H (81-96) fLMCH 30.8 (27.5-33.4) pgMCHC 29.6 L (32-36) g/dLRDW Coeff of [place] 16.3 H (12.0- 14.8) %Plt Count 137 L (153-361) K/uLMPV 9.8 (8.5-12.1) fLGran % 71.9 (43.0-83.7) %Immature Gran % (Auto) 0.8 H (0.0-0.5) %Lymph % (Auto) 18.9 (9.7-44.3) %Angelina % (Auto) 7.8 (1.8-12.7) %Eos % (Auto) 0.4 (0.0-6.0) %Baso % (Auto) 0.2 (0.0-1.0) %Nucleat RBC Rel Count 0.0 (0.0-0.2) %Gran # 3.61 (1.40-7.70) K/uLLymph # (Auto) 0.95 (0.80-2.90) K/uLMono # (Auto) 0.39 (0.20-0.80) K/uLEos # (Auto) 0.02 (0.00-0.30) K/uLBaso # (Auto) 0.01 (0.00-0.04) K/uLImmature Gran # (Auto) 0.04 (0.00-0.08) K/uLPatient Name: THAO BURK Acct: [id number] Unit: [id number] Page 4Absolute Nucleated RBC 0.00 (0.00-0.01) K/uLPT 10.8 (9.3-12.1) SecondsINR (Anticoag Therapy) 1.03Sodium 143 H (136-142) mmol/LPotassium 6.1 H* (3.5-5.1) mmol/LChloride 106 (98-107) mmol/LCarbon Dioxide 31 (21-32) mmol/LAnion Gap 6 (5-14) mMol/LBUN 25 H (7-18) mg/dLCreatinine 8.03 H* (0.55-1.02) mg/dLEst GFR (CKD-EPI 2020) 5 mL/minBUN/Creatinine Ratio 3.1Glucose 113 H (74-106) mg/dLCalcium 8.7 (8.5-10.1) mg/dLTotal Bilirubin 1.0 (0.2-1.0) mg/dLAST 18 (15-37) IU/LALT 17 (14-59) IU/LTotal Alk Phosphatase 170 H (46-116) IU/LTroponin I High Sens 17 (0-51) ng/LNT-Pro-B Natriuret Pep 20456 H (0-125) pg/mLSerum Total Protein 7.0 (6.4-8.2) g/dLAlbumin 3.7 (3.4-5.0) g/dLGlobulin 3.3 g/dLAlbumin/Globulin Ratio 1.1Radiology Impressions within the last 24 hrsChest X-Ray 07/27/24 23:43IMPRESSION:Pulmonary vascular congestion. Right basilar opacities representing atelectasis or airspace diseasesuch as mild edema or infection.CRITICAL RESULT:Patient Name: THAO BURK Acct: [id number] Unit: [id number] Page 5No.COMMUNICATION:Per this written report.Drafted by Aroldo Garcia MD on 07/28/2024 12:17 AMFinal report signed by Aroldo Garcia MD on 07/28/2024 12:19 AMRe-Evaluation MDM- Free Text MDM NotesText/Dict MDM Notes:Patient presents to the emergency department for evaluation of shortness of breath and chest pain.the patient missed dialysis and subsequently developed the symptoms . broad based workup isobtained and findings meet admission criteria. patient will be admitted for further workup andmanagement. i spoke with the admission team and they have agreed to admit the patient for furthertreatment. radiology and ekg data have been reviewed by myself and findings are per radiologyreports. patient has been given the opportunity to ask questions and all have been answered in greatdetail. the patient is in agreement with the plan.- ED CoursePatient Course: StableOrders-All:07/27/24 23:10CBC w Automated Differential StatComprehensive Metabolic Panel StatNT-pro B Natriuretic Peptide StatProthrombin Time StatTroponin I High Sensitivity Stat1 23:43ED Machine Steak Tenderizer ContinuousNPO ED Stat EDXR Chest 1 View [RAD] StatEKG Status Nurse ONCEEKG Stat1 01:43Troponin I High Sensitivity TimedEKG Status Nurse ONCEEKG RoutineNotes Reviewed: Prior ED visit, Specialist/consult note- Differential Diagnosis)( Differential Diagnosis: Positive Congestive heart failure, Positive COPD exacerbation, PositiveRespiratory failure, Positive Respiratory insufficiency, Positive Other (end stage renal disease)Patient Name: THAO BURK Acct: [id number] Unit: [id number] Page 6Patient Discharge Departure- ConditionCondition: Stable- Disposition Decision - HospitalizeHospitalizing Physician: Hospitalist)( Accepts Hospitalization: Yes)( Call returned time: 23:30)( Call returned date: 07/27/24Consultant: will see patient, agrees with plan- Discharge/Care PlanCounseled Regarding: Lab results, Imaging studies, Need for admission Note 1Admit Note:I have spoken with the patient and/or caregivers. I have explained the patient's condition,diagnoses and treatment plan based on the information available to me at this time. I have answeredthe patient's and/or caregiver's questions and addressed any concerns. The patient and/or caregivers have as good an understanding of the patient's diagnosis, condition and treatment plan as can beexpected at this point. The patient has been stabilized within the capability of the emergency department. The patient will be transported for further care and management or will be moved to an observation or inpatient service. I have communicated with the staff or medical practitioner taking over this patient's care.Clinical Impression: Shortness of breath, ESRD (end stage renal disease)Discharge Plan- Discharge PlanReason For Visit: CP/SOACondition: Fair<Electronically signed by Bela Richmond DO> 07/31/242235Patient Name: THAO BURK Acct: [id number] Unit: [id number] Page 7 Maximo Frey MD-27-Jul-2024 [place], [place] [address]Phone: Bzmkdqyuoqu History PhysicalPatient Name: THAO BURKDOB: 1950 Age: 73 Sex: FAcct: [id number] MR#: [id number]: Tk Marsh MD Author: Tk Marsh MDPatient Status: ADM LONI Patient Location: [facility] FR.402-ADate of Admission/Service: 07/28/24Report Date/Time: 07/27/24 2350 Report Status: SignedReport#: [id number] of Present Illness- HPIChief complaint: Shortness of breathPCP:PCP Provider UndefinedHPI:73-year-old female with past medical history of diabetes, hypertension, hyperlipidemia, and end-stage renal disease on hemodialysis; transferred to hospital for hemodialysis. Patient reports shehad some diarrhea and she missed her hemodialysis. She reports and the afternoon she developedshortness of breath and chest pain. Patient reports fatigue and generalized weakness. Patientevaluated by ED team and was found to have hyperkalemia. Plan of care discussed with ED admittingprovider. Patient seen and evaluated at bedside. Plan of care discussed with patient at bedside.Informant/historian: patientHistory- Past Medical HistoryMedical History: History, Medical (Last Updated 07/28/24 @ 02:21 by Tk Marsh MD)CHF (congestive heart failure) (Medical) I50.9Diabetes (Medical) E11.9ESRD (end stage renal disease) on dialysis (Medical) N18.6, Z99.2Hyperlipidemia (Medical) E78.5Hypertension (Medical) I10- Past Surgical HistorySurgical History: History, Surgical (Last Updated 07/28/24 @ 02:21 by Tk Marsh MD)History of cholecystectomy (Surgical) Z90.49History of permanent cardiac pacemaker placement (Surgical) Z95.0- Family HistoryFamily History:Patient Name: THAO BURK Acct: [id number] Unit: [id number] Page 1 Family History by Condition (Last Updated 07/28/24 @ 02:20 by Tk Marsh MD)Diabetes MOTHERHypertension FATHER- Social HistoryAlcohol use: denies EtOH useDrug use: denies recreational drugsSmoking status for patients 13 years old or older: Never SmokerOther social history: good social support- Medication/Allergy-Vaccine HxAllergies/Adverse Reactions:Allergiesceftriaxone [From Rocephin] Allergy (Verified 07/27/24 23:46) Rash-HivesReview of Systems- ROSConstitutional: REPORTS fatigue, REPORTS generalized weakness, DENIES chills, DENIES fever, DENIESmalaiseSkin: DENIES bruising, DENIES diaphoresis, DENIES rashAllergy/Immun: DENIES allergic reactionEyes: DENIES redness, DENIES discharge, DENIES visual loss/blurred, DENIES itching, DENIES diplopia,DENIES eye painENT: DENIES ear drainage, DENIES ear ringing, DENIES earache, DENIES hearing loss, DENIES nasalcongestion, DENIES sinus problem, DENIES sore throatRespiratory: REPORTS ARCE (dyspnea on exertion), REPORTS non productive cough, REPORTS pleuriticpain, REPORTS SOB, DENIES productive cough (sputum)Cardiovascular: REPORTS chest pain, REPORTS ARCE (dyspnea on exertion), REPORTS edema, DENIESpalpitationsGI: REPORTS diarrhea, DENIES abdominal pain, DENIES constipation, DENIES hematemesis, DENIEShematochezia, DENIES melena, DENIES nausea, DENIES vomiting- ROS - MusculoskeletalExtremity pain: DENIES left lower, DENIES right lowerHeme: DENIES bleedingEndocrine: DENIES cold intolerance, DENIES heat intoleranceNeuro: REPORTS dizziness, REPORTS headache, DENIES spinning sensationPsych: DENIES anxiety, DENIES depressionAll systems rev neg: except as markedObjective- GeneralVS/I O: Vital Signs - Last DocumentedPatient Name: THAO BURK Acct: [id number] Unit: [id number] Page 2Temperature 36.6 C 07/27/24 23:30Pulse 69 07/27/24 23:45Respiratory rate 24 H 07/27/24 23:40Respiratory source Observed 07/27/24 23:37Vital signs position Lying 07/27/24 23:37Blood pressure 125/72 L 07/27/24 23:45Non-invasive BP Mean Pressure 93 07/27/24 23:45Bedside pulse oximetry/SpO2 100 07/27/24 23:48Patient on Oxygen 07/27/24 23:48O2 liters per minute 2 07/27/24 23:48Weight 84 kg 07/27/24 23:30Weight source Stated/Reported 07/27/24 23:30Body surface area 2.00 07/27/24 23:30Body mass index 29.9 07/27/24 23:30Height 1.68 m 07/27/24 23:30Height source Stated/Reported 07/27/24 23:30Patient Weight: 84 kg 07/27/24 23:30- Physical ExamGeneral appearance: alert, awake, oriented, pleasant, conversational, mental status normalHead/Eyes: atraumatic, clear cornea, EOMI, normal conjunctiva/sclera, normal eyelids/periorb.,normocephalic, PERRLENT: moist mucosal membranes, normal pharynxNeck: non-tender, supple/no meningismus, no masses or swellingCardiovascular: normal capillary refill, normal heart sounds, regular rate rhythmRespiratory: aerating well, clear to auscultation, symmetric expansion, no distressAbdomen: obese, non-tender, normal bowel sounds, softRectal: not indicatedExtremities: edema, moves all, no calf tenderness, no cyanosisMusculoskeletal: normal inspectionNeuro/PACKAGE CLERK: alert, oriented X 3, CNII- XII intact, normal speech- Percy Coma ScoreEye opening: (4) SpontaneousVerbal response: (5) OrientedBest motor response: (6) Obeys commandsGCS Score (Copyright Sir Delfino Irvin): 15Skin: dry, normal temperatureLymphatics: neck normalPatient Name: THAO BURK Acct: [id number] Unit: [id number] Page 3Psychiatry: normal judgment/insight, normal mood- ResultsFindings/Data: Hematology 07/27/24 Range/Units 23:10WBC 5.0 (4.8-10.8) K/uLRBC 2.79 L (4.10-5.30) M/uLHgb 8.6 L (12.4-16.2) g/dLHct 29.1 L (38.9-44.7) %MCV 104.3 H (81-96) fLMCH 30.8 (27.5-33.4) pgMCHC 29.6 L (32-36) g/dLRDW Coeff of [place] 16.3 H (12.0-14.8) %Plt Count 137 L (153-361) K/uLMPV 9.8 (8.5-12.1) fLGran % 71.9 (43.0-83.7) %Immature Gran % (Auto) 0.8 H (0.0-0.5) %Lymph % (Auto) 18.9 (9.7-44.3) %Angelina % (Auto) 7.8 (1.8-12.7) %Eos % (Auto) 0.4 (0.0-6.0) %Baso % (Auto) 0.2 (0.0-1.0) %Nucleat RBC Rel Count 0.0 (0.0-0.2) %Gran # 3.61 (1.40-7.70) K/uLLymph # (Auto) 0.95 (0.80-2.90) K/uLMono # (Auto) 0.39 (0.20- 0.80) K/uLEos # (Auto) 0.02 (0.00-0.30) K/uLBaso # (Auto) 0.01 (0.00-0.04) K/uLImmature Gran # (Auto) 0.04 (0.00-0.08) K/uLPatient Name: THAO BURK Acct: [id number] Unit: [id number] Page 4Absolute Nucleated RBC 0.00 (0.00-0.01) K/uLResults: labs reviewed, vital signs stable, EKG personally reviewed, rhythm personally rev'd, x-raypersonally reviewed, current med profile rev'dTreatment Prophylaxis- Treatment ProphylaxisOxygen: nasal cannulaLines: peripheralDiagnosis, Assessment Plan- Diagnosis, Assessment PlanFree Text A P:# shortness of breath:* Possibly associated volume overload* Continue O2 supplementation* Wean as able# hyperkalemia:* Continue Lokelma* Administer insulin and D50* Administer calcium gluconate* Continuous tele monitoring* Follow-up with nephrology evaluation recommendations# end-stage renal disease on hemodialysis:* Follow-up with nephrology evaluation and recommendations# hypertension:* Continue home medications* Continue IV hydralazine p.o.* Monitor blood pressure closely# hyperlipidemia:* Continue home medications* Follow-up with lipid panel# diabetes:* Monitor fingerstick blood glucose* Continue insulin glargine* Continue insulin sliding scale* Continue carb consistent diet* Follow-up with hemoglobin A1c* Adjust algorithm as needed* Avoid hypoglycemia* Diabetes Education by dietitian# DVT prophylaxis:* Continue prophylactic dose of subcutaneous heparinFurther plans depend on hospital course.Patient Name: THAO BURK Acct: [id number] Unit: [id number] Page 5Prognosis: GuardedCode status: Full codeDisposition: To be determinedHigh risk/complex clinical decision making as aboveConsultants: nephrologyPlan discussed with: patient, nurse, other (ED admitting provider)- Code Status/Resusc. DiscussionDiscussed with: patientResusc. attempts may: cause poor qual. of lifePt/family expressed: desire for full codeCode status: full codeQuality- ReviewedCurrent medication review:I attest that the foregoing medication list in the medical record is true, accurate, and complete tothe best of my knowledge.Unable to obtain:Unable to obtain an accurate home medication list at this time. The patient is in an urgent oremergent medical situation where time is of the essence. To delay treatment would jeopardize thepatient's health status on the day of the encounter.- VTE ProphylaxisVTE prophylaxis initiated: yes- Advanced Care Plan 65 or OlderDiscussed with: patientDiscussion included: power of county attorney (Daughter Robina Burk should be contactedin the event patient cannot advocate for herself), code status (full code)- BMI Screening > 25 or < 18.5Patient's BMI:Current BMI: 29.9 07/27/24 23:30- Tobacco Use/CounselingTobacco use/counseling: non tobacco user, no counseling needed- HTN Screening/Follow-upLast documented vitals: Vital Signs - Last DocumentedTemperature 36.6 C 07/27/24 23:30Pulse 69 07/27/24 23:45Respiratory rate 24 H 07/27/24 23:40Respiratory source Observed 07/27/24 23:37Patient Name: THAO BURK Acct: [id number] Unit: [id number] Page 6Vital signs position Lying 07/27/24 23:37Blood pressure 125/72 L 07/27/24 23:45Non-invasive BP Mean Pressure 93 07/27/24 23:45Bedside pulse oximetry/SpO2 100 07/27/24 23:48Patient on Oxygen 07/27/24 23:48O2 liters per minute 2 07/27/24 23:48Weight 84 kg 07/27/24 23:30Weight source Stated/Reported 07/27/24 23:30Body surface area 2.00 07/27/24 23:30Body mass index 29.9 07/27/24 23:30Height 1.68 m 07/27/24 23:30Height source Stated/Reported 07/27/24 23:30Blood pressure ranges/guide:Screening for Hypertension and follow up measure #317Blood pressure parametersNormal B/P SBP </= 119 DBP </= 79Pre-hypertensive SBP 120-139 DBP 80-89Hypertensive SBP >/= 140 DBP >/= 90<Electronically signed by Tk Marsh MD> 07/28/24 0618Patient Name: THAO BURK Acct: [id number] Unit: [id number] Page 7 Problems Dyspnea Onset:31-Jul-2024 Basilio Wael DO Status:Acute End-stage renal disease Onset:28-Jul-2024 Basilio Wael DO Status:Acute Anemia Onset:28-Jul-2024 Geneidy Ayalis A Status:Acute Respiratory failure Onset:28-Jul-2024 Yuliya Echevarria A Status:Acute Hyperkalemia Onset:28-Jul-2024 Yuliya Echevarria A Status:Acute Hypertensive disorder Onset:28-Jul-2024 Yuliya Echevarria A Status:Acute Hypertensive disorder Onset:28-Jul-2024 Maximo Frey MD Status:Acute Hyperlipidemia Onset:28-Jul-2024 Maximo Frey MD Status:Acute Congestive heart failure Onset:28-Jul-2024 Maximo Frey MD Status:Acute End stage renal failure on d ialysis Onset:28-Jul-2024 Maximo Frey MD Status:Acute History of cholecystectomy Onset:28-Jul-2024 Maximo Frey MD Status:Acute H/O: cardiac pacemaker in si tu Onset:28-Jul-2024 Maximo Frey MD Status:Acute Diabetes mellitus Onset:28-Jul-2024 Maximo Frey MD Status:Acute Mental Status Cognitive function finding 29-Jul-2024 Functional Status Functional finding 28-Jul-2024 Functional finding 28-Jul-2024 Functional finding 28-Jul-2024 Functional finding 28-Jul-2024 Allergies and Adverse Reactions ceftriaxone(Allergy) Onset: 27-Jul-2024 Reaction:Rash-Hives Medications ferrous sulfate 325 mg (65 m g iron) tablet;325 MG ORAL Two Times a Day Start:30-Jul-2024 Comments:325 mg PO BID 1 ML epoetin krystyna-epbx 76292 UNT/ML Injection [Retacrit];52022 UNIT Once Quantity:2 Mendez Lopez GAS DESULFURIZER Start:56-Bie-2763Rkz:2023 Comments:Provider Administration Instructions:Dose: 20,000 Units Guaifenesin ER;600 MG ORAL T wo Times a Day Start:29-Jul-2024 Status:Aborted Comments:600 mg PO BID Stool Softener_STOO100C-AOM; 100 MG ORAL Two Times a Day Start:29-Jul-2024 Status:Aborted Comments:100 mg PO BID sevelamer carbonate 800 MG O ral Tablet [Renvela];1600 MG ORAL Three Times Daily With Meals Start:29-Jul-2024 Comments:1600 mg PO TID WITH MEALS ferrous sulfate 325 mg (65 m g iron) tablet;325 MG ORAL Daily Start:29-Jul-2024 Status:Aborted Comments:325 mg PO DAILY 24 HR isosorbide mononitrate 60 MG Extended Release Oral Tablet;60 MG ORAL Daily Start:29-Jul-2024 Status:Aborted Comments:60 mg PO DAILY allopurinol 100 MG Oral Tablet;100 MG ORAL Daily Start:29-Jul-2024 Status:Aborted Comments:100 mg PO DAILY aspirin 81 MG Chewable Tablet;81 MG ORAL Daily Start:29-Jul-2024 Status:Aborted Comments:81 mg PO DAILY bisoprolol fumarate 10 MG Or al Tablet;10 MG ORAL Daily Start:29-Jul-2024 Comments:10 mg PO DAILY folic acid 1 MG Oral Tablet; 1 MG ORAL Daily Start:29-Jul-2024 Comments:1 mg PO DAILY predniSONE 5 MG Oral Tablet; 5 MG ORAL Daily Start:29-Jul-2024 Comments:5 mg PO DAILY Protonix_PANT40TA2-AOM;40 MG ORAL Two Times a Day Before Meals Start:29-Jul-2024 Comments:40 mg PO BID BEFORE MEALS Eliquis;2.5 MG ORAL Two Time s a Day Start:29-Jul-2024 Status:Aborted Comments:2.5 mg PO BID metoprolol tartrate 50 MG Or al Tablet;50 MG ORAL Two Times a Day Start:29-Jul-2024 Status:Aborted Comments:50 mg PO BID Nyata;1 APPLIC TOPICAL Daily Start:29-Jul-2024 Status:Aborted Comments:1 applic TOPICAL DAILY brimonidine tartrate 2 MG/ML Ophthalmic Solution;1 DRP ophthalmic (eye Two Times a Day Start:29-Jul-2024 Comments:1 drp OPHTHALMIC (EYE BID Cosopt Eye Drops;1 DRP ophthalmic (eye Two Times a Day Start:29-Jul-2024 Comments:1 drp OPHTHALMIC (EYE BID tiotropium bromide 2.5 mcg/actuation mist for inhalation;2 INH Inhalation Daily Start:29-Jul-2024 Comments:2 inh INHALATION DAILY NovoLOG Flexpen_NOVO100I5-AO M;3 UNIT subcut Three Times a Day Before Meals Start:29-Jul-2024 Comments:3 unit SUBCUT TID BEFORE MEALS insulin glargine 100 UNT/ML Injectable Solution [Lantus];6 UNIT subcut At Bedtime Start:29-Jul-2024 Comments:6 unit SUBCUT BEDTIME petrolatum 0.41 MG/MG Topica l Ointment [Aquaphor];1 APPLIC TOPICAL Two Times a Day Start:29-Jul-2024 Status:Aborted Comments:1 applic TOPICAL BID rifAXIMin 550 MG Oral Tablet [XIFAXAN];550 MG ORAL Two Times a Day Start:29-Jul-2024 Comments:550 mg PO BID insulin, regular, human 100 UNT/ML Injectable Solution [HumuLIN R];10 UNIT Once Quantity:1 Maximo Frey MD Start:71-Wre-7811Uea:2023 Comments:Provider Administration Instructions:PLEASE administer after administration of oneamp of D50 to bring potassium down Hazardous WasteDispose of package and any unused portion 50 ML calcium gluconate 20 MG/ML Injection;50 ML X1ED Quantity:1 Maximo Frey MD Start:26-Oua-5617Jiy:2023 Comments:Provider Administration Instructions:Calcium Gluconate 1000 mg/50 ml NS 50 ML glucose 500 MG/ML Prefilled Syringe;25 GM Once Quantity:1 Maximo Frey MD Start:14-Iou-5409Njr:2023 [place] [address] MG Powder for Oral Suspension [Lokelma];10 GM Once Quantity:1 Maximo Frey MD Start:34-Rly-9500Enj:2023 ipratropium bromide 0.2 MG/M L Inhalation Solution Start:28-Jul-2024 Status:Aborted folic acid 1 MG Oral Tablet Start:28-Jul-2024 Status:Aborted Robaxin;mg Start:28-Jul-2024 Status:Aborted Comments:mg sevelamer carbonate 800 MG O ral Tablet [Renvela];mg Start:28-Jul-2024 Status:Aborted Comments:mg Prilosec_PRIL40CA6-AOM;mg Start:28-Jul-2024 Status:Aborted Comments:mg Furosemide;mg Start:28-Jul-2024 Status:Aborted Comments:mg bisoprolol fumarate 10 MG Or al Tablet;mg Start:28-Jul-2024 Status:Aborted Comments:mg rifAXIMin 550 MG Oral Tablet [XIFAXAN];mg BID Start:28-Jul-2024 Status:Aborted Comments:mg BID Protonix_PANT40TA2-AOM;mg PO Start:28-Jul-2024 Status:Aborted Comments:mg PO brimonidine tartrate 2 MG/ML Ophthalmic Solution;drp OPHTHALMIC (EYE Start:28-Jul-2024 Status:Aborted Comments:drp OPHTHALMIC (EYE Cosopt Eye Drops;OPHTHALMIC (EYE Start:28-Jul-2024 Status:Aborted Comments:OPHTHALMIC (EYE Procedures Performance of Urinary Filtr ation, Intermittent, Less than 6 Hours Per Day Date:28-Jul-2024 EKGResult:[facility] [place], [place] [address]Psfin: [phone] Abntdaxahiottgsxr ReportPatient Name: THAO BURKDOB: 1950 Age: 73 Sex: FAcct: [id number] MR#: [id number] Status: DIS IN Patient Location: [facility] FR.402[facility] Physician: Bela Richmond of Admission:07/28/24Test Reason : Blood Pressure : / mmHG Vent. Rate : 069 BPM Atrial Rate : 069 BPM P-R Int : 274 ms QRS Dur : 130 ms QT Int : 456 ms P-R-T Axes : 000 -62 063 degrees QTc Int : 488 ms Atrial-paced rhythm with prolonged AV conduction Left axis deviation Nonspecific intraventricular block Minimal voltage criteria for LVH, may be normal variant ( Willard product ) Possible Anterolateral infarct (cited on or before 28-JUL-2024) Abnormal ECG When compared with ECG of 28-JUL-2024 01:35, premature supraventricular complexes are no longer present Confirmed by Delvis Norris ([id number]) on 08/06/2024 11:11:27 AM Referred By: Confirmed By:Delvis Norris<Electronically signed by Delvis Norris MD in OV>08/06/24 1112Dictated By: Delvis Norris MD DictatedDate/Time: 07/28/24 013Transcribed By: Delvis Norris MDTranscribed Date/Time: 07/28/24 0136Technologist: Report ID: [id number] To:Patient Name: THAO BURK Acct: [id number] Unit: [id number] Page 1 Date:28-Jul-2024 Status:Completed EKGResult:[facility] [place], [place] [address]Iufcc: [phone] Qbvpcdloadgplghgu ReportPatient Name: THAO BURKDOB: 1950 Age: 73 Sex: FAcct: [id number] MR#: [id number] Status: DIS IN Patient Location: [place] [address] Physician: Bela Richmond of Admission:07/28/24Test Reason : Blood Pressure : / mmHG Vent. Rate : 072 BPM Atrial Rate : 072 BPM P-R Int : 272 ms QRS Dur : 130 ms QT Int : 452 ms P-R-T Axes : -16 -63 070 degrees QTc Int : 494 ms Atrial-paced rhythm with prolonged AV conduction with premature supraventricular complexes Left axis deviation Nonspecific intraventricular block Minimal voltage criteria for LVH, may be normal variant ( Willard product ) Possible Anterolateral infarct , age undetermined Abnormal ECG No previous ECGs available Confirmed by Delvis Norris ([id number]) on 08/07/2024 8:25:49 AM Referred By: Confirmed By:Delvis Norris<Electronically signed by Delvis Norris MD in OV>08/07/24 0826Dictated By: Delvis Norris MD DictatedDate/Time: 07/28/24 013Transcribed By: Delvis Norris MDTranscribed Date/Time: 07/28/24 013Technologist: Report ID: [id number] To:Patient Name: THAO BURK Acct: [id number] Unit: [id number] Page 1 Date:28-Jul-2024 Status:Completed Chest 1 ViewResult:[place] [address] Diagnostic Imaging ReportPatient Name: THAO BURK Acct: [id number]: 1950 Age: 73 Sex: F MR#: [id number] Date/Time: 07/27/24 2343 Admit Date/Time:Patient Status: REG ER Ordering Physician: Parvez Marc Location: [facility] Attending Physician:Accession Number(s): [id number](s): Radiology XR Chest 1 ViewCPT Code(s): 21249OQYXTUEG INDICATION: Chest Pain TECHNIQUE: XR Chest 1 View COMPARISON: None. FINDINGS: Left chest wall ICD noted. Cardiomegaly. No pneumothorax or pleural effusion. Pulmonary vascularcongestion. Right basilar opacities representing atelectasis or airspace disease. Nonacute bones. RAD/XR Chest 1 ViewIMPRESSION:Pulmonary vascular congestion. Right basilar opacities representing atelectasis or airspace diseasesuch as mild edema or infection.CRITICAL RESULT:No.COMMUNICATION:Per this written report.Drafted by Aroldo Garcia MD on 07/28/2024 12:17 AMFinal report signed by Aroldo Garcia MD on 07/28/2024 12:19 AM<Electronically signed by Aroldo Garcia MD in OV>07/28/2418 Thank you for choosing [facility] Dictated By: Aroldo Garcia MD DictatedPatient Name: THAO BURK Acct: [id number] Unit: [id number] Page 1Date/Time: 07/28/2418Transcribed By: Aroldo Garcia MDTranscribed Date/Time: 07/28/2418Technologist: Deniz Mancera To: Report ID: [id number] -End of Report-Patient Name: THAO BURK Acct: [id number] Unit: [id number] Page 2 Date:28-Jul-2024 Status:Completed Results POC Glucose Profile Ordered On:30-Jul-2024 16:51 Glucose Point of Qnku828se/dL(High) Range:70mg/dL-110mg/dL POC Glucose Profile Ordered On:30-Jul-2024 07:54 Glucose Point of Tjba23ai/dL(Normal) Range:70mg/dL-110mg/dL CBC w Automated Differential Ordered On:30-Jul-2024 04:48 Basophils Absolute-Auto0.01K/uL(Normal ) Range:0K/uL-0.04K/uL Basophils Percent-Auto0.3%(Normal) Range:0%-1% Eosinophils Absolute-Auto0.09K/uL(Normal ) Range:0K/uL-0.3K/uL Eosinophils Percent-Auto2.5%(Normal) Range:0%-6% Granulocytes Absolute-Auto2.50K/uL(Normal ) Range:1.4K/uL-7.7K/uL Granulocytes Percent-Auto70.9%(Normal) Range:43%-83.7% Ufgjezdzvb92.9%(Low) Range:38.9% -44.7% Hemoglobin9.3g/dL(Low) Range:12. 4g/dL-16.2g/dL Immature Granulocyte s absolute0.03K/uL(Normal) Range:0K/uL-0.08K/uL Immature Granulocyte s percent0.8%(High) Range:0%-0.5% Lymphocytes Absolute-Auto0.56K/uL(Low) Range:0.8K/uL-2.9K/uL Lymphocytes Percent-Auto15.9%(Normal) Range:9.7%-44.3% Mean Corpuscular Kwoqayuuut19.7pg(Normal) Range:27.5pg-33.4pg Mean Corpuscular Hgb Ffwcfjr72.1g/dL(Low) Range:32g/dL-36g/dL Mean Corpuscular Zxwdgq384.0fL(High) Range:81fL-96fL Monocytes Absolute-Auto0.34K/uL(Normal ) Range:0.2K/uL-0.8K/uL Monocytes Percent-Auto9.6%(Normal) Range:1.8%-12.7% Mean Platelet Yrjsfi39.2fL(Normal) Range:8.5fL-12.1fL Nucleated RBC relati ve auto0.0%(Normal) Range:0%-0.2% Platelet Jbbpx733J/uL(Low) Range :153K/uL-361K/uL Red Blood Cell Count3.03{M/uL}(Low) Range:4.1{M/uL}-5.3{M/uL} RDW Coefficient of Yptiicpxl62.9%(High) Range:12%-14.8% White Blood Count3.5K/uL(Low) Range:4.8K/uL-10.8K/uL Nucleated RBC absolu te auto0.00K/uL(Normal) Range:0K/uL-0.01K/uL Renal Function Panel Ordered On:30-Jul-2024 05:13 Albumin3.2g/dL(Low) Range:3.4g /dL-5g/dL BUN/Creatinine Ratio3.0 Blood Urea Wmbkraca18kd/dL(High) Range:7mg/dL-18mg/dL Calcium8.6mg/dL(Normal) Range:8. 5mg/dL-10.1mg/dL Wjcvlpga735hkct/L(Normal) Range: 98mmol/L-107mmol/L Carbon Yghdbpa37rpur/L(Normal) Range:21mmol/L-32mmol/L Anion Jml8erqk/L(Normal) Range:5 mmol/L-14mmol/L Glom Filtration Rate CKD-EPI 25mL/min Comments:EFFECTIVE JUN 2022, THE LABORATORY HAS CONVERTED TO IJL2143 CKD EPI CREATININE EQUATION FOR ADULTS THAT DOES NOTCONTAIN A RACE FACTOR TO CALCULATE AND REPORT THE eGFRRESULTS. Mzewipw88tw/dL(Normal) Range:74m g/dL-106mg/dL Potassium4.7mmol/L(Normal) Range :3.5mmol/L-5.1mmol/L Tcrkdc311zuej/L(Normal) Range:13 6mmol/L-142mmol/L Phosphorus5.3mg/dL(High) Range:2 .5mg/dL-4.9mg/dL 30-Jul-2024 05:15 Creatinine7.71mg/dL( Critical High) Range:0.55mg/dL-1.02mg/dL Comments:Notification of Critical Value:YESTaken and Read back by:MARGOT VALLE/4THTime:0514 Date:07/30/24 By:[id number] Magnesium Level Ordered On:30-Jul-2024 05:13 Magnesium Level2.4mg/dL(Normal) Range:1.8mg/dL-2.4mg/dL POC Glucose Profile Ordered On:29-Jul-2024 21:31 Glucose Point of Dkcf36aw/dL(Normal) Range:70mg/dL-110mg/dL POC Glucose Profile Ordered On:29-Jul-2024 15:48 Glucose Point of Evod256oj/dL(High) Range:70mg/dL-110mg/dL POC Glucose Profile Ordered On:29-Jul-2024 12:23 Glucose Point of Vrnm719af/dL(Normal) Range:70mg/dL-110mg/dL POC Glucose Profile Ordered On:29-Jul-2024 12:23 Glucose Point of Kmey35vn/dL(Normal) Range:70mg/dL-110mg/dL Iron with TIBC Ordered On:29-Jul-2024 05:00 Nzkj10ft/dL(Low) Range:50ug/dL -170ug/dL Iron Cswpqqnixu98.2%{saturation}( Low) Range:25%{saturation}-55%{satu ration} Total Iron Binding Dybotpdg353ew/dL(Low) Range:250ug/dL-450ug/dL Renal Function Panel Ordered On:29-Jul-2024 05:11 Albumin3.4g/dL(Normal) Range:3 .4g/dL-5g/dL BUN/Creatinine Ratio2.6 Blood Urea Yjnbmuko76rc/dL(Normal) Range:7mg/dL-18mg/dL Calcium8.3mg/dL(Low) Range:8.5mg /dL-10.1mg/dL Rhfkcpib134mvkp/L(Normal) Range: 98mmol/L-107mmol/L Carbon Eiimdvi49ljpe/L(Normal) Range:21mmol/L-32mmol/L Creatinine5.79mg/dL(High) Range: 0.55mg/dL-1.02mg/dL Anion Tyw8pqfw/L(Normal) Range:5 mmol/L-14mmol/L Glom Filtration Rate CKD-EPI 27mL/min Comments:EFFECTIVE JUN 2022, THE LABORATORY HAS CONVERTED TO IEP4713 CKD EPI CREATININE EQUATION FOR ADULTS THAT DOES NOTCONTAIN A RACE FACTOR TO CALCULATE AND REPORT THE eGFRRESULTS. Qbnvkzc01if/dL(Normal) Range:74m g/dL-106mg/dL Potassium4.5mmol/L(Normal) Range :3.5mmol/L-5.1mmol/L Bxwpnp983yukx/L(Normal) Range:13 6mmol/L-142mmol/L Phosphorus3.8mg/dL(Normal) Range :2.5mg/dL-4.9mg/dL Magnesium Level Ordered On:29-Jul-2024 05:11 Magnesium Level2.5mg/dL(High) Range:1.8mg/dL-2.4mg/dL CBC w Automated Differential Ordered On:29-Jul-2024 04:49 White Blood Count4.4K/uL(Low) Range:4.8K/uL-10.8K/uL Red Blood Cell Count2.83{M/uL}(Low) Range:4.1{M/uL}-5.3{M/uL} Hemoglobin8.7g/dL(Low) Range:12. 4g/dL-16.2g/dL Qgnmkvirzm09.4%(Low) Range:38.9% -44.7% Mean Corpuscular Tdbohp898.9fL(High) Range:81fL-96fL Mean Corpuscular Gsqowztfgo28.7pg(Normal) Range:27.5pg-33.4pg Mean Corpuscular Hgb Ewqylcl38.6g/dL(Low) Range:32g/dL-36g/dL RDW Coefficient of Zcuzkhrgi27.9%(High) Range:12%-14.8% Platelet Crlly543E/uL(Low) Range :153K/uL-361K/uL Mean Platelet Volume9.9fL(Normal) Range:8.5fL-12.1fL Granulocytes Percent-Auto76.0%(Normal) Range:43%-83.7% Immature Granulocyte s percent0.2%(Normal) Range:0%-0.5% Lymphocytes Percent-Auto13.7%(Normal) Range:9.7%-44.3% Monocytes Percent-Auto7.8%(Normal) Range:1.8%-12.7% Eosinophils Percent-Auto2.1%(Normal) Range:0%-6% Basophils Percent-Auto0.2%(Normal) Range:0%-1% Nucleated RBC relati ve auto0.0%(Normal) Range:0%-0.2% Granulocytes Absolute-Auto3.33K/uL(Normal ) Range:1.4K/uL-7.7K/uL Immature Granulocyte s absolute0.01K/uL(Normal) Range:0K/uL-0.08K/uL Lymphocytes Absolute-Auto0.60K/uL(Low) Range:0.8K/uL-2.9K/uL Monocytes Absolute-Auto0.34K/uL(Normal ) Range:0.2K/uL-0.8K/uL Eosinophils Absolute-Auto0.09K/uL(Normal ) Range:0K/uL-0.3K/uL Basophils Absolute-Auto0.01K/uL(Normal ) Range:0K/uL-0.04K/uL Nucleated RBC absolu te auto0.00K/uL(Normal) Range:0K/uL-0.01K/uL POC Glucose Profile Ordered On:28-Jul-2024 20:36 Glucose Point of Noqm26ug/dL(Normal) Range:70mg/dL-110mg/dL POC Glucose Profile Ordered On:28-Jul-2024 15:46 Glucose Point of Pzmd543zy/dL(High) Range:70mg/dL-110mg/dL POC Glucose Profile Ordered On:28-Jul-2024 11:01 Glucose Point of Ddpq763qo/dL(High) Range:70mg/dL-110mg/dL POC Glucose Profile Ordered On:28-Jul-2024 06:42 Glucose Point of Vpoh579dj/dL(Normal) Range:70mg/dL-110mg/dL CBC w Automated Differential Ordered On:28-Jul-2024 06:46 White Blood Count4.5K/uL(Low) Range:4.8K/uL-10.8K/uL Red Blood Cell Count2.74{M/uL}(Low) Range:4.1{M/uL}-5.3{M/uL} Hemoglobin8.4g/dL(Low) Range:12. 4g/dL-16.2g/dL Xclwybappd44.8%(Low) Range:38.9% -44.7% Mean Corpuscular Zradpg771.1fL(High) Range:81fL-96fL Mean Corpuscular Eyeoyrskkf97.7pg(Normal) Range:27.5pg-33.4pg Mean Corpuscular Hgb Vqfyfqh44.2g/dL(Low) Range:32g/dL-36g/dL RDW Coefficient of Mksswylcf15.4%(High) Range:12%-14.8% Platelet Dfgiw217M/uL(Low) Range :153K/uL-361K/uL Mean Platelet Lnwycw77.4fL(Normal) Range:8.5fL-12.1fL Granulocytes Percent-Auto73.0%(Normal) Range:43%-83.7% Immature Granulocyte s percent0.7%(High) Range:0%-0.5% Lymphocytes Percent-Auto16.1%(Normal) Range:9.7%-44.3% Monocytes Percent-Auto8.5%(Normal) Range:1.8%-12.7% Eosinophils Percent-Auto1.3%(Normal) Range:0%-6% Basophils Percent-Auto0.4%(Normal) Range:0%-1% Nucleated RBC relati ve auto0.0%(Normal) Range:0%-0.2% Granulocytes Absolute-Auto3.27K/uL(Normal ) Range:1.4K/uL-7.7K/uL Immature Granulocyte s absolute0.03K/uL(Normal) Range:0K/uL-0.08K/uL Lymphocytes Absolute-Auto0.72K/uL(Low) Range:0.8K/uL-2.9K/uL Monocytes Absolute-Auto0.38K/uL(Normal ) Range:0.2K/uL-0.8K/uL Eosinophils Absolute-Auto0.06K/uL(Normal ) Range:0K/uL-0.3K/uL Basophils Absolute-Auto0.02K/uL(Normal ) Range:0K/uL-0.04K/uL Nucleated RBC absolu te auto0.00K/uL(Normal) Range:0K/uL-0.01K/uL Glycosylated Hemoglobin (A1C) Ordered On:28-Jul-2024 07:08 Estimated Average Hjkytuq359.54 Glycosylated Hemoglobin5.2%(Normal) Range:4.5%-6.2% Renal Function Panel Ordered On:28-Jul-2024 07:59 Albumin3.4g/dL(Normal) Range:3 .4g/dL-5g/dL BUN/Creatinine Ratio3.2 Blood Urea Crqcwcex88fg/dL(High) Range:7mg/dL-18mg/dL Calcium8.5mg/dL(Normal) Range:8. 5mg/dL-10.1mg/dL Pypnlple136fgmd/L(Normal) Range: 98mmol/L-107mmol/L Carbon Vrvktyh09ausl/L(Normal) Range:21mmol/L-32mmol/L Anion Gsf76yzii/L(Normal) Range: 5mmol/L-14mmol/L Glom Filtration Rate CKD-EPI 25mL/min Comments:EFFECTIVE JUN 2022, THE LABORATORY HAS CONVERTED TO [id number] CKD EPI CREATININE EQUATION FOR ADULTS THAT DOES NOTCONTAIN A RACE FACTOR TO CALCULATE AND REPORT THE eGFRRESULTS. Xbenizj209nq/dL(High) Range:74mg /dL-106mg/dL Potassium5.4mmol/L(High) Range:3 .5mmol/L-5.1mmol/L Qfurfb246mazj/L(Normal) Range:13 6mmol/L-142mmol/L Phosphorus5.1mg/dL(High) Range:2 .5mg/dL-4.9mg/dL 28-Jul-2024 08:12 Creatinine8.22mg/dL( Critical High) Range:0.55mg/dL-1.02mg/dL Comments:Notification of Critical Value:Taken and Read back by: CORI PRESTON (RN)Time:810 Date:07/28/24 By:[id number] Magnesium Level Ordered On:28-Jul-2024 07:59 Magnesium Level3.3mg/dL(High) Range:1.8mg/dL-2.4mg/dL Lipid Panel Ordered On:28-Jul-2024 07:59 Dzvxsxxxrpw166dp/dL(Normal) Ra nge:0mg/dL-199mg/dL Cholesterol/HDL Ratio1.7 LDL Yqfvwruwryl29zt/dL(Normal) Range:0mg/dL-99mg/dL LDL/HDL Ratio0.5 Opfstklxkuwbj56nu/dL(Normal) Ran ge:0mg/dL-149mg/dL VLDL Mxoblsmyxiq36qw/dL(Normal) Range:5mg/dL-40mg/dL 28-Jul-2024 08:11 HDL Acdcgbslokp17os/dL(High) R aviva:40mg/dL-60mg/dL Comments:HDL Cholesterol values greater than 59 mg/dl are associatedwith reduced cardiac risk. Non HDL CholesterolTNP Comments: Unable to calculate. Triglycerides level below calculationthreshold. TSH with T4 Reflex Ordered On:28-Jul-2024 07:59 Thyroid Stimulating Hormone2.875m[IU]/mL(Normal) Range:0.358m[IU]/mL-3.74m[IU]/ mL Phosphorus Ordered On:28-Jul-2024 08:24 Phosphorus5.1mg/dL(High) Range :2.5mg/dL-4.9mg/dL Hepatitis B Surface Ag Pnl Ordered On:30-Jul-2024 05:10 Hepatitis B Surface AntigenNegative Range:Negative Comments:Performed At: [address] [id number] Vincent PhD Ph:[phone] Hepatitis C Antibody Ordered On:28-Jul-2024 05:10 Hepatitis C Antibody Non Reactive Range:Non Reactive Comments:HCV antibody alone does not differentiate betweenpreviously resolved infection and active infection.Equivocal and Reactive HCV antibody results should befollowed up with an HCV RNA test to support the diagnosisof active HCV infection. Troponin I High Sensitivity Ordered On:28-Jul-20 01:52 Troponin I High Tcxnrqrlnzr34zu/L(Normal) Range:0ng/L-51ng/L Comments:If the repeat Troponin is rising and a delta of 20% ispresent, it may be clinically significant. Provider shouldassess if further treatment is required.The reportedreference range is based on the gender specific 99thpercentile cut-off for the Siemens Dimension EXL HighSensitivity Troponin I method.Biotin concentrations greater than 300 ng/mL may have falsenegative results. Therefore, this method should not be usedfor these patients and patients with renal impairment (eGFR<60). CBC w Automated Differential Ordered On:27-Jul-2024 23:48 White Blood Count5.0K/uL(Normal) Range:4.8K/uL-10.8K/uL Red Blood Cell Count2.79{M/uL}(Low) Range:4.1{M/uL}-5.3{M/uL} Hemoglobin8.6g/dL(Low) Range:12. 4g/dL-16.2g/dL Levokuelgr16.1%(Low) Range:38.9% -44.7% Mean Corpuscular Zqbeit558.3fL(High) Range:81fL-96fL Mean Corpuscular Rccynycqdf51.8pg(Normal) Range:27.5pg-33.4pg Mean Corpuscular Hgb Vxluego58.6g/dL(Low) Range:32g/dL-36g/dL RDW Coefficient of Iatysrery45.3%(High) Range:12%-14.8% Platelet Zpjcd154C/uL(Low) Range :153K/uL-361K/uL Mean Platelet Volume9.8fL(Normal) Range:8.5fL-12.1fL Granulocytes Percent-Auto71.9%(Normal) Range:43%-83.7% Immature Granulocyte s percent0.8%(High) Range:0%-0.5% Lymphocytes Percent-Auto18.9%(Normal) Range:9.7%-44.3% Monocytes Percent-Auto7.8%(Normal) Range:1.8%-12.7% Eosinophils Percent-Auto0.4%(Normal) Range:0%-6% Basophils Percent-Auto0.2%(Normal) Range:0%-1% Nucleated RBC relati ve auto0.0%(Normal) Range:0%-0.2% Granulocytes Absolute-Auto3.61K/uL(Normal ) Range:1.4K/uL-7.7K/uL Immature Granulocyte s absolute0.04K/uL(Normal) Range:0K/uL-0.08K/uL Lymphocytes Absolute-Auto0.95K/uL(Normal ) Range:0.8K/uL-2.9K/uL Monocytes Absolute-Auto0.39K/uL(Normal ) Range:0.2K/uL-0.8K/uL Eosinophils Absolute-Auto0.02K/uL(Normal ) Range:0K/uL-0.3K/uL Basophils Absolute-Auto0.01K/uL(Normal ) Range:0K/uL-0.04K/uL Nucleated RBC absolu te auto0.00K/uL(Normal) Range:0K/uL-0.01K/uL Comprehensive Metabolic Panel Ordered On:27-Jul-2024 00:05 Htzymt496sewu/L(High) Range:13 6mmol/L-142mmol/L Zsqpdzsw123nunn/L(Normal) Range: 98mmol/L-107mmol/L Carbon Wjmslcx66vmql/L(Normal) Range:21mmol/L-32mmol/L Anion Kzg0zzmr/L(Normal) Range:5 mmol/L-14mmol/L Blood Urea Aqehopqw52sb/dL(High) Range:7mg/dL-18mg/dL BUN/Creatinine Ratio3.1 Yrafbue166wv/dL(High) Range:74mg /dL-106mg/dL Calcium8.7mg/dL(Normal) Range:8. 5mg/dL-10.1mg/dL Bilirubin Total1.0mg/dL(Normal) Range:0.2mg/dL-1mg/dL Aspartate Aminotrans AST/SGOT18[IU]/L(Normal) Range:15[IU]/L-37[IU]/L Alanine Aminotrans ALT/SGPT17[IU]/L(Normal) Range:14[IU]/L-59[IU]/L Total Protein7.0g/dL(Normal) Ran ge:6.4g/dL-8.2g/dL Albumin3.7g/dL(Normal) Range:3.4 g/dL-5g/dL Globulin3.3g/dL Albumin/Globulin Ratio1.1 Alkaline Phosphatase Zwsuu956[IU]/L(High) Range:46[IU]/L-116[IU]/L Glom Filtration Rate CKD-EPI 25mL/min Comments:EFFECTIVE JUN 2022, THE LABORATORY HAS CONVERTED TO [id number] CKD EPI CREATININE EQUATION FOR ADULTS THAT DOES NOTCONTAIN A RACE FACTOR TO CALCULATE AND REPORT THE eGFRRESULTS. 28-Jul-2024 00:15 Potassium6.1mmol/L(C ritical High) Range:3.5mmol/L-5.1mmol/L Comments:Notification of Critical Value:Taken and Read back by:GORDON RONDONTime:0014 Date:07/28/24 By:[id number] Creatinine8.03mg/dL( Critical High) Range:0.55mg/dL-1.02mg/dL Comments:Notification of Critical Value:Taken and Read back by:GORDON RONDONTime:0014 Date:07/28/24 By:[id number] Prothrombin Time Ordered On:27-Jul-2024 00:04 PT Xczwvno70.8s(Normal) Range: 9.3s-12.1s International Normal Ratio1.03 Comments:Recommended Theraputic Range:2.0-3.0 For Standard Oral Anticoagulant Therapy2.5-3.5 For High Dose Anticoagulant TherapyThe INR may not be reliable for patients who have been oncoumadin therapy for less than six weeks. Troponin I High Sensitivity Ordered On:27-Jul-20 00:05 Troponin I High Znhyprpsnds71oe/L(Normal) Range:0ng/L-51ng/L Comments:If the repeat Troponin is rising and a delta of 20% ispresent, it may be clinically significant. Provider shouldassess if further treatment is required.The reportedreference range is based on the gender specific 99thpercentile cut-off for the Siemens Dimension EXL HighSensitivity Troponin I method.Biotin concentrations greater than 300 ng/mL may have falsenegative results. Therefore, this method should not be usedfor these patients and patients with renal impairment (eGFR<60). NT-pro B Natriuretic Peptide Ordered On:27-Jul-2024 00:05 NT-pro B Natriuretic Dwtbaqb90260ic/mL(High) Range:0pg/mL-125pg/mL Vital Signs 30-Jul-2024 16:48 Temp37.1c O2 FHF445% Pulse69 Respiratory Rate16 BP Cdbpesux090ha[Hg] BP Yrvpwillv05zr[Hg] 30-Jul-2024 13:05 Temp36.4c Pulse72 Respiratory Rate18 O2 MXO553% BP Hpbassyr48bl[Hg] BP Crztmgmcc79ar[Hg] 30-Jul-2024 09:15 Temp36.6c Pulse71 Respiratory Rate18 O2 UBU886% BP Crsnaatp77ou[Hg] BP Egnmwbedk79pf[Hg] 30-Jul-2024 07:59 Temp36.8c O2 KEB107% Pulse70 Respiratory Rate14 BP Iuqiryhc453ob[Hg] BP Csixwldaq96oe[Hg] 30-Jul-2024 03:56 Temp36.6c O2 PFP793% Pulse70 Respiratory Rate14 BP Tgdznddm264mj[Hg] BP Zjmuehgjf90dz[Hg] 29-Jul-2024 23:36 Temp36.6c O2 SAT92% Pulse70 Respiratory Rate16 BP Eydkwrvy40wc[Hg] BP Dlymogrmr77jy[Hg] 29-Jul-2024 20:30 Temp36.5c O2 SAT91% Pulse62 Respiratory Rate16 BP Seflweko960ju[Hg] BP Wmghmvcmq80vf[Hg] 29-Jul-2024 15:39 Temp36.6c O2 KNH117% Pulse69 Respiratory Rate14 BP Pgwafmxy833lz[Hg] BP Iccfubyci05mp[Hg] 29-Jul-2024 12:04 Temp36.4c O2 ENA194% Pulse70 Respiratory Rate14 BP Wlkhirru14kh[Hg] BP Kmsvgsxms63cr[Hg] 29-Jul-2024 07:35 Temp36.5c O2 ZRF409% Pulse68 Respiratory Rate14 BP Stfrurfa160at[Hg] BP Iadkmwabb20md[Hg] 29-Jul-2024 04:51 Temp36.6c O2 JQB466% Pulse70 Respiratory Rate16 BP Qxjvtqjj973tr[Hg] BP Fgqqguozf55rg[Hg] 29-Jul-2024 00:18 Temp36.8c O2 SAT96% Pulse70 Respiratory Rate18 BP Cyltcvok918tp[Hg] BP Xpjxuwjcr32rr[Hg] 28-Jul-2024 19:54 Temp36.4c O2 SAT98% Pulse92 Respiratory Rate16 BP Mbmofdlg277kn[Hg] BP Hpmzevioo94rv[Hg] 28-Jul-2024 19:20 Vuqc11x Pulse72 Respiratory Rate15 O2 LBF400% BP Wneixqtn273it[Hg] BP Hpmjlaczc58fe[Hg] 28-Jul-2024 15:50 Temp36.2c Pulse72 Respiratory Rate16 O2 EJH169% BP Cxezkxss381kh[Hg] BP Dvvbeivod25rz[Hg] 28-Jul-2024 10:59 Temp36.3c O2 RVO487% Pulse66 Respiratory Rate16 BP Cjpjpjas240br[Hg] BP Wddefwqrp29zy[Hg] 28-Jul-2024 07:18 O2 JUV446% Jiyat903 Respiratory Rate18 BP Unymkhlb130jj[Hg] BP Nnpnakoid08ig[Hg] 28-Jul-2024 05:20 Temp36.4c O2 FBE724% Pgykz358 Respiratory Rate18 BP Jbdjpzjv560pr[Hg] BP Lksqamuvw91ns[Hg] 28-Jul-2024 02:51 BMI30.7kg/m2 Height5.076427750[ft_us] Fjwhpg119.7215283hg 28-Jul-2024 02:50 Temp36.3c O2 SAT87% Pulse73 Respiratory Rate14 BP Kmsqdihk330kd[Hg] BP Roinqxacr57iy[Hg] 28-Jul-2024 02:20 O2 SAT99% Pulse69 Respiratory Rate27 28-Jul-2024 02:16 BP Syehitlh877lx[Hg] BP Hzpmhrsts06eg[Hg] 28-Jul-2024 02:16 O2 SAT95% Pulse69 28-Jul-2024 02:10 O2 SAT99% Pulse69 28-Jul-2024 02:00 O2 SAT99% Pulse69 Respiratory Rate22 28-Jul-2024 02:00 BP Rkkbnhuq292of[Hg] BP Oawaxqhsz94aw[Hg] 28-Jul-2024 01:50 O2 MSU553% Pulse69 Respiratory Rate23 28-Jul-2024 01:45 O2 SAT99% Pulse69 Respiratory Rate15 28-Jul-2024 01:45 BP Uhhnaqza626ae[Hg] BP Pztrzpwys33da[Hg] 28-Jul-2024 01:43 O2 LRH662% 28-Jul-2024 01:40 O2 SAT99% Pulse70 28-Jul-2024 01:40 BP Jurjprdg513ce[Hg] BP Bzvsdcwxc13up[Hg] 28-Jul-2024 01:30 O2 XHR268% Pulse69 Respiratory Rate26 28-Jul-2024 01:20 Pulse69 Respiratory Rate26 28-Jul-2024 01:10 Pulse69 Respiratory Rate26 28-Jul-2024 01:00 Pulse69 Respiratory Rate23 28-Jul-2024 01:00 BP Zfdnypkc141ud[Hg] BP Tputamocy77yt[Hg] 28-Jul-2024 00:50 Pulse69 Respiratory Rate21 28-Jul-2024 00:45 BP Zcgowsdo874ge[Hg] BP Kvzdlrjua51yu[Hg] 28-Jul-2024 00:45 O2 SAT99% Pulse69 Respiratory Rate22 28-Jul-2024 00:40 O2 SAT99% Pulse69 Respiratory Rate24 28-Jul-2024 00:30 BP Qprtrrgf201wv[Hg] BP Slrbqzdlf94zt[Hg] 28-Jul-2024 00:30 O2 SAT96% Pulse69 Respiratory Rate31 28-Jul-2024 00:20 O2 ZRX722% Pulse69 Respiratory Rate23 28-Jul-2024 00:15 O2 SAT99% Pulse69 Respiratory Rate23 28-Jul-2024 00:15 BP Xzeukztc086pp[Hg] BP Kdexkypel80at[Hg] 28-Jul-2024 00:10 O2 SAT99% Pulse69 Respiratory Rate23 28-Jul-2024 O2 OFA972% Pulse69 Respiratory Rate24 28-Jul-2024 BP Jbxrangh068ov[Hg] BP Cbovzbhhn64ba[Hg] 27-Jul-2024 23:50 O2 FYS321% Pulse69 27-Jul-2024 23:48 O2 CAT116% 27-Jul-2024 23:45 O2 TEN051% Pulse69 27-Jul-2024 23:45 BP Uwnzjmyr083co[Hg] BP Fequcsjop57qu[Hg] 27-Jul-2024 23:43 O2 SBC529% O2 CPO072% 27-Jul-2024 23:40 O2 CWK913% Pulse69 Respiratory Rate24 27-Jul-2024 23:37 O2 TBB452% Pulse69 Respiratory Rate21 BP Uwrulbwz265ux[Hg] BP Ktwnvwasn87sb[Hg] 27-Jul-2024 23:31 BP Slvuvapl973zl[Hg] BP Fcuqfpjqy18qc[Hg] 27-Jul-2024 23:31 O2 SAT96% Pulse69 27-Jul-2024 23:30 BMI29.9kg/m2 Temp36.6c O2 VMP060% Pulse69 Respiratory Rate18 BP Tzfejwex505ms[Hg] BP Nzdlqgybt74vm[Hg] Height5.5[ft_us] Hudfqc019.7617628ao Encounters Inpatient encounter Encounter Reason:CP/SOA Encounter Diagnosis:[id number],END STAGE RENAL DISEASE,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/ESRD,FLUID OVERLOAD, UNSPECIFIED,HYPERLIPIDEMIA, UNSPECIFIED,TYPE 2 DIABETES MELLITUS W DIABETIC CHRONIC KIDNEY DISEASE,IRON DEFICIENCY ANEMIA, UNSPECIFIED,HEART FAILURE, UNSPECIFIED,ALLERGY STATUS TO OTHER ANTIBIOTIC AGENTS STATUS,ACQUIRED ABSENCE OF OTHER SPECIFIED PARTS OF DIGESTIVE TRACT,PRESENCE OF CARDIAC PACEMAKER,MISC DISORDERS OF NUTRITION,METABOLISM,FLUIDS/ELECTROLYTES W ALF,HYPERKALEMIA 28-Jul-2024 14:36Rx86-Bcx-5481 18:03 Juventino Armas MD (Attending) [place] Discharge Disposition:Discharged to home or self care (routine discharge) Edita Scruggs-16-Jul-2024 [place] [id number] J[address] Ahuja [id number]: [phone] [facility] Management Rpt from MIDASPatient Name: THAO BURK CUSTARDDOB: 1950 Age: 73 Sex: FAcct: [id number] MR#: [id number] Status: DIS IN [facility] Phys[facility]:Date of Admission:07/28/24 ----- HCM SUPPORT SERVICES HCM Support Services User Vines: Discharge Disposition: 06 - Home Health Date Entered: 07/28/2024 Service Type: *Care Coordination [place] Artist: Miranda [facility] Worklist Date: 07/31/2024 Payer: [employer] MEDICARE HMO or PPO Comments: --- 07/29/2024 10:27 AM by Nestor Vasquez --- BRITTANY sent to [facility] per pt request. They have accepted pt through careport. --- 07/28/2024 04:54 PM by Reyna Boswell --- P: Continued Stay review A: Clinical problems/barriers to discharge: Patient is from [facility], does dialysis on , Mon. States she has [facility] I:BRITTANY orders sent P:CM to follow Date Entered: 07/29/2024 Service Type: Home Health Agency [place] Artist: Reyna Boswell Worklist Date: 10/16/2005Patient Name: THAO BURK Acct: [id number] Unit: [id number] Page 1 Agency: [facility] Referral Status:Booked HCM DISCHARGE PLANNING HCM Discharge Planning Comments: HCM DISCHARGE PLANNING EVALUATION Case Workers: Reyna Boswell Living Status: Adult-son or daughter Setting: Home- residence ADL Limits: None or n/a DME: Oxygen HCM Discharge Planning User Vines: Community Services Prior to Admission: None or NA Current Mental Status/Cognition: Alert and Oriented Information obtained from: Patient Discharge Barriers, select all that apply: None or NA Readmission (unplanned) in the last 30 days: No Patient goals and preferences after discharge: home health Based on information gathered, is it likely that the patient's care needs can be met in the environment from which he/she entered the hospital?: Yes Proposed Discharge Plan, select one: Home Home Services needed: Home Health If a caregiver is needed, is there a caregiver available, willing and capable to provide care?: Yes Community services needed: None New DME required at discharge: None or NA If new DME is required, is patient able to obtain DME?: Yes Home Modifications required: None or NA If home modifications are required, is patient able to obtain them?: Yes Patient concerns about obtaining medications on day of discharge?: None Transportation needs at discharge: car Discharge Plan Discussed with: PatientPatient Name: THAO BURK Acct: [id number] Unit: [id number] Page 2 Have you discussed with the patient how his/her care needs may change management time?: No 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 PCP is [facility]. States she independent in ADL's. Uses o2 prn, her dme co is in [facility]. States she has [facility]. Date / Time: 07/28/2024 3:30 PM Evaluated by: Reyna Boswell Updated by: HIS TU ([id number]) - 07/31/2024 02:55 PM Dicta soledad By: Edita Boswell DictatedDate/Time: 07/31/241454Transcribed By: Edita Boswell TranscribedDate/Time: 07/31/241454Technologist: Report ID: [id number] To:Patient Name: THAO BURK Acct: [id number] Unit: [id number] Page 3 Plan of Treatment Future Tests Future scheduled test information is unavailable Pending Tests Pending diagnostic test information is unavailable Future Visits Future appointment information is unavailable Referrals to Other Providers Reason for Referral Referral Start Date Provider Provider Contact Information Provider Address Wale Dwyer MD Work Phone: [address] [facility] [address] [facility] [id number] No Primary or Family Physician Future Procedures Procedure Name Ordered Date Scheduled Date PT Eval and Tx July 28, 2024 3:56am Octobe r 2023 3:57am OT Eval and Tx July 28, 2024 3:56am Octobe r 2023 3:57am Admission Status Order July 28, 2024 2:09am July 28, 2024 2:09am Change Patient Status July 28, 2024 2:57pm July 28, 2024 2:57pm Consult Case Management July 28, 2024 4:51p m July 28, 2024 4:51pm Discharge Order July 30, 2024 2:00pm Octobe r 2023 2:00pm Level of Care July 28, 2024 2:09am Octobe r 2023 2:09am Hemodialysis July 28, 2024 12:28pm Octob er 2023 12:30pm Hemodialysis July 29, 2024 12:05pm Octob er 2023 12:15pm Consult Nephrology July 28, 2024 3:56am Oct joo 2023 3:57am VTE Prophylaxis Status July 28, 2024 3:56am July 28, 2024 3:57am Future Medications Future medication information is unavailable Patient Instructions Ferrous Sulfate Oral Tablet What Is Heart Failure Heart Failure Flare Up Signs Heart Failure: Tracking Your Weight Treating Constipation Assessments Diagnosis Onset Date Resolution Status Anemia acute ESRD (end stage renal disease) acute Hyperkalemia acute Hypertension acute Respiratory failure acute
[2025-03-20] VITALS (38 sets, daily range): BP systolic 90–124; BP diastolic 44–81; PULSE 67–97; RESP 16–25; TEMP 36.5–36.7; O2SAT 82–100; BMI 29.0
--- NOTE | 2025-03-20 12:51 | HMH.EDGENADL ---
Discharge Plan Disposition Patient Disposition: Xfer Short-Term Hosp Condition: Fair Prescriptions Prescriptions: No Action atorvastatin 20 mg tablet 20 mg PO HS Qty: 30 5RF acyclovir 5 % cream 1 applic topical 5XD 4 Days Qty: 5 0RF Rx Instructions: apply to blister area as directed prednisone 10 mg tablet 5 mg PO DAILY acetaminophen [Tylenol] 325 mg capsule 325 mg PO QID PRN (Reason: Mild Pain) insulin aspart U-100 100 unit/mL (3 mL) insulin pen 4 unit SQ ACHS insulin glargine 100 unit/mL (3 mL) insulin pen 6 unit SQ DAILY melatonin 5 mg capsule 5 mg PO HS omeprazole 40 mg capsule,delayed release(DR/EC) 40 mg PO DAILY Patient Comments: TAKE 1 CAPSULE BY MOUTH ONCE DAILY. DO NOT CRUSH OR CHEW furosemide 80 mg tablet 80 mg PO BID Patient Comments: TAKE 1 TABLET BY MOUTH TWICE DAILY mupirocin 2 % ointment 1 applic topical BID 14 Days Qty: 15 0RF Kerasal Fungal Nail Renewal Solution 1 ml topical BID 28 Days Qty: 10 3RF bisoprolol fumarate 10 mg tablet 10 mg PO DAILY Qty: 31 11RF levofloxacin 500 mg tablet 500 mg PO DAILY 7 Days Qty: 7 0RF Clenpiq 10 mg-3.5 gram- 12 gram/175 mL solution 175 ml PO DAILY Qty: 350 0RF Rx Instructions: take first dose at 5-9PM evening before colonoscopy; 2nd dose the next day approximately 5 hrs before colonoscopy folic acid 1 MG tablet 1 mg PO DAILY lactulose 10 GM/15 ML solution 20 g PO TID sevelamer carbonate 800 MG tablet 1,600 mg PO TID rifaximin 550 mg tablet 550 mg PO BID albuterol sulfate 90 mcg/actuation HFA aerosol inhaler 4 inh inhalation Q4H PRN (Reason: shortness of breath or wheezing) Qty: 8.5 0RF Rx Instructions: 4 puffs every 4 hours for 48 hours then as needed for shortness of breath or wheezing following pantoprazole 40 mg tablet,delayed release (DR/EC) 40 mg PO BID Patient Comments: TAKE 1 TABLET BY MOUTH TWICE DAILY 30 MINUTES BEFORE BREAKFAST AND DINNER methocarbamol 750 mg tablet 750 mg PO QID 10 Days Qty: 40 0RF lidocaine 5 % adhesive patch,medicated 1 patch topical DAILY Qty: 15 0RF Rx Instructions: leave on most painful area for up to 12 hrs doxycycline hyclate 100 mg capsule 100 mg PO BID 10 Days Qty: 20 0RF levofloxacin 250 mg tablet 250 mg PO .Every 48 hours Qty: 7 0RF Referrals Follow up/Referrals: Aldo Juarez MD [Primary Care Provider, Medical] - See instructions Activity Restrictions/Add. Instructions Additional Instructions/Restrictions: To [facility] care of Dr. Griffin Clinical Impressions Clinical Impression: Osteomyelitis Stand Alone Forms Stand Alone Forms: Transfer Record - ED Print Language Print Language: Thai Discharge ED Provider: Tiarra Atkins General Adult HPI <LAURA Desai - Last Filed: 03/20/25 17:04> General Chief complaint: Weakness Stated complaint: Weakness Time Seen by Provider: 03/20/25 13:13 History of Present Illness HPI narrative: Patient presents for evaluation of weakness. Patient had dialysis today and patient states after she got home she felt weak had difficulty walking. She denies any fever chills hemoptysis hematochezia melena nausea vomiting diarrhea. She denies any chest pain or shortness of breath. Of note patient just spent 36 days at the [facility] from 02/09/2025 to 03/17/2025 for osteomyelitis of her left foot. Related Data Home Medications ?Medication ?Instructions ?Recorded ?Confirmed folic acid 1 mg tablet 1 mg PO DAILY Supplement 11/29/20 01/30/25 lactulose 10 gram/15 mL oral 20 g PO TID liver 11/29/20 01/30/25 solution sevelamer carbonate 800 mg tablet 1,600 mg PO TID Kidney failure 11/29/20 01/30/25 acetaminophen 325 mg capsule 325 mg PO QID PRN Mild Pain 03/23/21 01/30/25 (Tylenol) insulin aspart U-100 100 unit/mL 4 unit SQ ACHS Diabetes 03/23/21 01/30/25 (3 mL) subcutaneous pen insulin glargine 100 unit/mL (3 6 unit SQ DAILY Diabetes 03/23/21 01/30/25 mL) subcutaneous pen melatonin 5 mg capsule 5 mg PO HS Sleep 03/23/21 01/30/25 prednisone 10 mg tablet 5 mg PO DAILY . 03/23/21 01/30/25 rifaximin 550 mg tablet 550 mg PO BID unk 03/23/21 01/30/25 furosemide 80 mg tablet 80 mg PO BID Fluid 10/12/22 01/30/25 omeprazole 40 mg capsule,delayed 40 mg PO DAILY GERD 10/12/22 01/30/25 release pantoprazole 40 mg tablet,delayed 40 mg PO BID 09/11/23 01/30/25 release Previous Rx's ?Medication ?Instructions ?Recorded atorvastatin 20 mg tablet 20 mg PO HS Cholesterol #30 tabs 10/26/22 albuterol sulfate 90 mcg/actuation 4 inh inhalation Q4H PRN shortness 07/25/23 aerosol inhaler of breath or wheezing #8.5 grams bisoprolol fumarate 10 mg tablet 10 mg PO DAILY #31 tabs 09/18/23 mupirocin 2 % topical ointment 1 applic topical BID infection 14 11/27/24 days #15 grams urea-lactic acid-propylene glycol 1 ml topical BID 4 weeks #10 mL 11/27/24 topical solution (Kerasal Fungal Nail Renewal topical solution) levofloxacin 500 mg tablet 500 mg PO DAILY infection 7 days 12/02/24 #7 tabs lidocaine 5 % topical patch 1 patch topical DAILY #15 ea 12/05/24 methocarbamol 750 mg tablet 750 mg PO QID 10 days #40 tabs 12/05/24 sod picosulf 10 mg-magnes 3.5 175 ml PO DAILY 2 doses #350 mL 12/27/24 gram-citric 12 gram/175 mL oral solution (Clenpiq) doxycycline hyclate 100 mg capsule 100 mg PO BID 10 days #20 caps 01/03/25 levofloxacin 250 mg tablet 250 mg PO .Every 48 hours #7 tabs 01/03/25 acyclovir 5 % topical cream 1 applic topical 5XD 4 days #5 01/30/25 grams Allergies Allergy/AdvReac Type Severity Reaction Status Date / Time ceftriaxone Allergy Severe Anaphylaxis Verified 01/30/25 13:36 [facility] <LAURA Dseai - Last Filed: 03/20/25 17:04> [facility] Disclaimer: The information contained in this section may have been updated after the patient was seen, as this information can be updated by other users. 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 Diabetes Abnormal result of cardiovascular function study Typical angina Automatic implantable cardioverter-defibrillator in situ Chronic a-fib Surgical History History of cardiac cath Social History Smoking Status: Never smoker second hand exposure: No alcohol intake: never substance use type: other current occupational status: disabled Travel in the last 8 weeks?: None household members: spouse housing: house current occupational exposures/hazards: No caffeine: No Have you lived/traveled outside [place] in past 30 days?: No Contact w/someone who lives/traveled outside US past 30 days?: No Exposure to someone with infectious disease in past 14 days?: No Do you have a fever (greater than 100.4 F or 38 C)?: No Have you tested positive for COVID-19?: No Exposed to someone with COVID-19 in past 14 days?: No Do you have a sore throat?: No Do you have a cough?: No Do you have any weakness?: No Do you have any diarrhea?: No Are you experiencing any unusual bleeding?: No Do you have any muscle aches/pain?: No Do you have any abdominal pain?: No Are you experiencing loss of taste or smell?: No Other Medical History Have you received the Flu Vaccine for this season: No Have you received the Pneumonia Vaccine: Yes <LAURA Desai - Last Filed: 03/20/25 17:04> ROS Obtained: Yes Systems reviewed as appropriate & no additional complaints except as documented Physical Exam <LAURA Desai - Last Filed: 03/20/25 17:04> General General appearance: alert and in no apparent distress Respiratory Respiratory exam: Present normal lung sounds bilaterally Cardiovascular Cardiovascular exam: Present regular rate Neurological Exam Neurological exam: Present alert and oriented X3 Medical Decision Making <LAURA Desai - Last Filed: 03/20/25 17:04> Medical Records Medical records reviewed: Yes I reviewed the patient's medical records. Screening: Per USPSTF and CDC recommendations, given the prevalence of disease in our region, it is our hospital?s policy to screen for HIV and viral Hepatitis for all patients aged 18 and over and those with ongoing risk factors. Rudy Inquiry Pt receiving controlled substance: No Vital Signs: 03/20/25 12:56 03/20/25 13:22 03/20/25 13:31 Temperature 97.7 F Temperature Source Oral Pulse Rate Pulse Rate [Right] 89 Respiratory Rate 22 25 H Blood Pressure 103/44 L 97/62 L Blood Pressure Mean 73 02 Sat by Pulse Oximetry 92 L Oxygen Delivery Method Nasal Cannula Oxygen Flow Rate (LPM) 2 03/20/25 13:48 03/20/25 14:00 03/20/25 15:00 Temperature Temperature Source Pulse Rate 90 97 H 93 H Pulse Rate [Right] Respiratory Rate 22 17 22 Blood Pressure 90/58 L 101/73 L 100/77 L Blood Pressure Mean 02 Sat by Pulse Oximetry 100 100 96 Oxygen Delivery Method Room Air Room Air Room Air Oxygen Flow Rate (LPM) 03/20/25 15:08 03/20/25 16:00 03/20/25 16:30 Temperature Temperature Source Pulse Rate 92 H 94 H Pulse Rate [Right] Respiratory Rate 22 23 25 H Blood Pressure 110/78 116/77 117/77 Blood Pressure Mean 02 Sat by Pulse Oximetry 90 L Oxygen Delivery Method Oxygen Flow Rate (LPM) Lab Data Lab results reviewed: Yes I reviewed the patient's lab results. Lab Results 03/20/25 13:17: Sodium 133 L, Potassium 3.3 L, Chloride 98, Carbon Dioxide 32 H, Anion Gap 6.3, BUN 18 H, Creatinine 1.70 H, Estimated Creat Clear 39, Estimated GFR 30 L, Est GFR ( Amer) 36 L, Glucose 138 H, Calcium 7.6 L, Phosphorus 2.2 L, Magnesium 1.6, Total Bilirubin 1.3, AST 29, ALT 21, Alkaline Phosphatase 180 H, C-Reactive Protein 38.4 H, Total Protein 4.7 L, Albumin 2.5 L, Globulin 2.2, Albumin/Globulin Ratio 1.1, Procalcitonin 2.43 H 03/20/25 15:15: WBC 9.0, RBC 1.69 L*, Hgb 5.4 L*, Hct 17.3 L*, MCV 102.4 H, MCH 32.0 H, MCHC 31.2 L, RDW 22.8 H, Plt Count 200, MPV 10.5 H, Neut % (Auto) 82.5 H, Lymph % (Auto) 5.9 L, [place] % (Auto) 9.2, Eos % (Auto) 1.0, Baso % (Auto) 0.4, Neut # (Auto) 7.4, Lymph # (Auto) 0.5 L, [place] # (Auto) 0.8, Eos # (Auto) 0.1, Baso # (Auto) 0.0 03/20/25 15:15 03/20/25 13:17 Orders (Tests/Meds): ED MEDICATIONS Generic Name Dose Route Start Last Admin Trade Name Freq PRN Reason Stop Dose Admin Belladonna Alkaloids 60 ml 03/20/25 17:05 Belladonna Alkaloids 60 Ml Ml PO 03/20/25 17:06 ONCE ONE Discontinued Medications Generic Name Dose Route Start Last Admin Trade Name Freq PRN Reason Stop Dose Admin Belladonna Alkaloids 60 ml 03/20/25 16:24 03/20/25 16:29 Belladonna Alkaloids 60 Ml Ml PO 03/20/25 16:25 Not Given ONCE ONE Morphine Sulfate 1 mg 03/20/25 14:04 03/20/25 14:22 Morphine 2mg/Ml Syringe IV 03/20/25 14:05 1 mg ONCE ONE Administration Sodium Chloride 500 ml 03/20/25 13:38 03/20/25 13:48 Sodium Chloride 0.9% 500ml Bag IV 03/20/25 13:39 500 ml ONCE ONE Administration ORDERS Category Date Time Status CBC w/Auto Diff [Complete Blood Count Auto Diff] Stat Lab 03/20/25 15:15 Results CMP [Comprehensive Metabolic Panel] Stat Lab 03/20/25 13:17 Completed CRP [C-Reactive Protein] Stat Lab 03/20/25 13:17 Completed ESR [Erythrocyte Sedimentation Rate] Stat Lab 03/20/25 15:15 Received Magnesium Stat Lab 03/20/25 13:17 Completed Phosphorous Stat Lab 03/20/25 13:17 Completed Procalcitonin Stat Lab 03/20/25 13:17 Completed Medical Decision Narrative: In summary patient is a 74-year-old female who presents to the emergency department for evaluation of weakness and hypotension. Patient cannot tell me how much fluid if any was dialyzed today. Patient is initially hypotensive with a blood pressure of 97 on arrival heart rate 89 respiratory rate 22 temperature is 97.7 O2 sats 92% on her baseline 2 L by nasal cannula . Physical exam reveals a well-nourished well-developed chronically ill-appearing 74-year-old female who is currently in no acute distress. Breath sounds gonial bilaterally to the bases without adventitious sounds. Abdomen soft nontender no rebound or guarding no rigidity. Patient's diabetic foot looks chronically infected. Differential diagnosis includes hypovolemia versus electrolyte abnormality versus sepsis. Initial workup will be conducted with hematologic labs twelve-lead EKG. Initial interventions include given her chronic renal failure and comorbidities 500 cc crystalloid bolus for now. Initial workup reviewed by me shows her sodium is 133 potassium is 3.3 CO2 is 32 BUN is 18 creatinine is 1.7 GFR is 30 calcium 7.6 phosphorus 2.2 albumin is 2.5 procalcitonin is 2.43. We have had great difficulty in IV access in fact they had to get a PICC line placed by interventional radiology at the [facility]. CBC shows a white blood cell count of 9 hemoglobin of 5.4 hematocrit of 17.3 which is marked decrease from her prior labs. Son states that she has become more debilitated and has now become total care and he is unable to care for her at home. However given the state of her foot we went ahead and had an interactive discussion with [facility] transfer center regarding patient presentation VELASQUEZ and management. Patient has been accepted graciously to the [facility] emergency room for further workup and management by Dr. Griffin <Tiarra Atkins, DO - Last Filed: 03/20/25 14:18> Vital Signs: 03/20/25 12:56 03/20/25 13:22 03/20/25 13:31 Temperature 97.7 F Temperature Source Oral Pulse Rate Pulse Rate [Right] 89 Respiratory Rate 22 25 H Blood Pressure 103/44 L 97/62 L Blood Pressure Mean 73 02 Sat by Pulse Oximetry 92 L Oxygen Delivery Method Nasal Cannula Oxygen Flow Rate (LPM) 2 03/20/25 13:48 03/20/25 14:00 03/20/25 15:00 Temperature Temperature Source Pulse Rate 90 97 H 93 H Pulse Rate [Right] Respiratory Rate 22 17 22 Blood Pressure 90/58 L 101/73 L 100/77 L Blood Pressure Mean 02 Sat by Pulse Oximetry 100 100 96 Oxygen Delivery Method Room Air Room Air Room Air Oxygen Flow Rate (LPM) 03/20/25 15:08 03/20/25 16:00 03/20/25 16:30 Temperature Temperature Source Pulse Rate 92 H 94 H Pulse Rate [Right] Respiratory Rate 22 23 25 H Blood Pressure 110/78 116/77 117/77 Blood Pressure Mean 02 Sat by Pulse Oximetry 90 L Oxygen Delivery Method Oxygen Flow Rate (LPM) Lab Data Lab Results 03/20/25 13:17: Sodium 133 L, Potassium 3.3 L, Chloride 98, Carbon Dioxide 32 H, Anion Gap 6.3, BUN 18 H, Creatinine 1.70 H, Estimated Creat Clear 39, Estimated GFR 30 L, Est GFR ( Amer) 36 L, Glucose 138 H, Calcium 7.6 L, Phosphorus 2.2 L, Magnesium 1.6, Total Bilirubin 1.3, AST 29, ALT 21, Alkaline Phosphatase 180 H, C-Reactive Protein 38.4 H, Total Protein 4.7 L, Albumin 2.5 L, Globulin 2.2, Albumin/Globulin Ratio 1.1, Procalcitonin 2.43 H 03/20/25 15:15: WBC 9.0, RBC 1.69 L*, Hgb 5.4 L*, Hct 17.3 L*, MCV 102.4 H, MCH 32.0 H, MCHC 31.2 L, RDW 22.8 H, Plt Count 200, MPV 10.5 H, Neut % (Auto) 82.5 H, Lymph % (Auto) 5.9 L, [place] % (Auto) 9.2, Eos % (Auto) 1.0, Baso % (Auto) 0.4, Neut # (Auto) 7.4, Lymph # (Auto) 0.5 L, [place] # (Auto) 0.8, Eos # (Auto) 0.1, Baso # (Auto) 0.0 Orders (Tests/Meds): ED MEDICATIONS Generic Name Dose Route Start Last Admin Trade Name Freq PRN Reason Stop Dose Admin Belladonna Alkaloids 60 ml 03/20/25 17:05 Belladonna Alkaloids 60 Ml Ml PO 03/20/25 17:06 ONCE ONE Discontinued Medications Generic Name Dose Route Start Last Admin Trade Name Freq PRN Reason Stop Dose Admin Belladonna Alkaloids 60 ml 03/20/25 16:24 03/20/25 16:29 Belladonna Alkaloids 60 Ml Ml PO 03/20/25 16:25 Not Given ONCE ONE Morphine Sulfate 1 mg 03/20/25 14:04 03/20/25 14:22 Morphine 2mg/Ml Syringe IV 03/20/25 14:05 1 mg ONCE ONE Administration Sodium Chloride 500 ml 03/20/25 13:38 03/20/25 13:48 Sodium Chloride 0.9% 500ml Bag IV 03/20/25 13:39 500 ml ONCE ONE Administration ORDERS Category Date Time Status CBC w/Auto Diff [Complete Blood Count Auto Diff] Stat Lab 03/20/25 15:15 Results CMP [Comprehensive Metabolic Panel] Stat Lab 03/20/25 13:17 Completed CRP [C-Reactive Protein] Stat Lab 03/20/25 13:17 Completed ESR [Erythrocyte Sedimentation Rate] Stat Lab 03/20/25 15:15 Received Magnesium Stat Lab 03/20/25 13:17 Completed Phosphorous Stat Lab 03/20/25 13:17 Completed Procalcitonin Stat Lab 03/20/25 13:17 Completed ECG Data Tracing #1: I reviewed this ECG and interpreted as documented below: Atrial fibrillation with a ventricular rate of 91 bpm. PVC noted. No acute STEMI ECG initial impression date: 03/20/25 ECG initial impression time: 13:00 Tracing #2: I reviewed this ECG and interpreted as documented below: Atrial fibrillation with a ventricular rate of 96 bpm. No significant change from prior EKG. No STEMI ECG initial impression date: 03/20/25 ECG initial impression time: 14:12 <Darrian Us MD - Last Filed: 03/20/25 17:08> Vital Signs: 03/20/25 12:56 03/20/25 13:22 03/20/25 13:31 Temperature 97.7 F Temperature Source Oral Pulse Rate Pulse Rate [Right] 89 Respiratory Rate 22 25 H Blood Pressure 103/44 L 97/62 L Blood Pressure Mean 73 02 Sat by Pulse Oximetry 92 L Oxygen Delivery Method Nasal Cannula Oxygen Flow Rate (LPM) 2 03/20/25 13:48 03/20/25 14:00 03/20/25 15:00 Temperature Temperature Source Pulse Rate 90 97 H 93 H Pulse Rate [Right] Respiratory Rate 22 17 22 Blood Pressure 90/58 L 101/73 L 100/77 L Blood Pressure Mean 02 Sat by Pulse Oximetry 100 100 96 Oxygen Delivery Method Room Air Room Air Room Air Oxygen Flow Rate (LPM) 03/20/25 15:08 03/20/25 16:00 03/20/25 16:30 Temperature Temperature Source Pulse Rate 92 H 94 H Pulse Rate [Right] Respiratory Rate 22 23 25 H Blood Pressure 110/78 116/77 117/77 Blood Pressure Mean 02 Sat by Pulse Oximetry 90 L Oxygen Delivery Method Oxygen Flow Rate (LPM) Lab Data Lab Results 03/20/25 13:17: Sodium 133 L, Potassium 3.3 L, Chloride 98, Carbon Dioxide 32 H, Anion Gap 6.3, BUN 18 H, Creatinine 1.70 H, Estimated Creat Clear 39, Estimated GFR 30 L, Est GFR ( Amer) 36 L, Glucose 138 H, Calcium 7.6 L, Phosphorus 2.2 L, Magnesium 1.6, Total Bilirubin 1.3, AST 29, ALT 21, Alkaline Phosphatase 180 H, C-Reactive Protein 38.4 H, Total Protein 4.7 L, Albumin 2.5 L, Globulin 2.2, Albumin/Globulin Ratio 1.1, Procalcitonin 2.43 H 03/20/25 15:15: WBC 9.0, RBC 1.69 L*, Hgb 5.4 L*, Hct 17.3 L*, MCV 102.4 H, MCH 32.0 H, MCHC 31.2 L, RDW 22.8 H, Plt Count 200, MPV 10.5 H, Neut % (Auto) 82.5 H, Lymph % (Auto) 5.9 L, [place] % (Auto) 9.2, Eos % (Auto) 1.0, Baso % (Auto) 0.4, Neut # (Auto) 7.4, Lymph # (Auto) 0.5 L, [place] # (Auto) 0.8, Eos # (Auto) 0.1, Baso # (Auto) 0.0 Orders (Tests/Meds): ED MEDICATIONS Generic Name Dose Route Start Last Admin Trade Name Freq PRN Reason Stop Dose Admin Belladonna Alkaloids 60 ml 03/20/25 17:05 Belladonna Alkaloids 60 Ml Ml PO 03/20/25 17:06 ONCE ONE Discontinued Medications Generic Name Dose Route Start Last Admin Trade Name Freq PRN Reason Stop Dose Admin Belladonna Alkaloids 60 ml 03/20/25 16:24 03/20/25 16:29 Belladonna Alkaloids 60 Ml Ml PO 03/20/25 16:25 Not Given ONCE ONE Morphine Sulfate 1 mg 03/20/25 14:04 03/20/25 14:22 Morphine 2mg/Ml Syringe IV 03/20/25 14:05 1 mg ONCE ONE Administration Sodium Chloride 500 ml 03/20/25 13:38 03/20/25 13:48 Sodium Chloride 0.9% 500ml Bag IV 03/20/25 13:39 500 ml ONCE ONE Administration ORDERS Category Date Time Status CBC w/Auto Diff [Complete Blood Count Auto Diff] Stat Lab 03/20/25 15:15 Results CMP [Comprehensive Metabolic Panel] Stat Lab 03/20/25 13:17 Completed CRP [C-Reactive Protein] Stat Lab 03/20/25 13:17 Completed ESR [Erythrocyte Sedimentation Rate] Stat Lab 03/20/25 15:15 Received Magnesium Stat Lab 03/20/25 13:17 Completed Phosphorous Stat Lab 03/20/25 13:17 Completed Procalcitonin Stat Lab 03/20/25 13:17 Completed Medical Decision Narrative: In summary patient is a 74-year-old female who presents to the emergency department for evaluation of weakness and hypotension. Patient cannot tell me how much fluid if any was dialyzed today. Patient is initially hypotensive with a blood pressure of 97 on arrival heart rate 89 respiratory rate 22 temperature is 97.7 O2 sats 92% on her baseline 2 L by nasal cannula . Physical exam reveals a well-nourished well-developed chronically ill-appearing 74-year-old female who is currently in no acute distress. Breath sounds gonial bilaterally to the bases without adventitious sounds. Abdomen soft nontender no rebound or guarding no rigidity. Patient's diabetic foot looks chronically infected. Differential diagnosis includes hypovolemia versus electrolyte abnormality versus sepsis. Initial workup will be conducted with hematologic labs twelve-lead EKG. Initial interventions include given her chronic renal failure and comorbidities 500 cc crystalloid bolus for now. Initial workup reviewed by me shows her sodium is 133 potassium is 3.3 CO2 is 32 BUN is 18 creatinine is 1.7 GFR is 30 calcium 7.6 phosphorus 2.2 albumin is 2.5 procalcitonin is 2.43. We have had great difficulty in IV access in fact they had to get a PICC line placed by interventional radiology at the [facility]. CBC shows a white blood cell count of 9 hemoglobin of 5.4 hematocrit of 17.3 which is marked decrease from her prior labs. Son states that she has become more debilitated and has now become total care and he is unable to care for her at home. However given the state of her foot we went ahead and had an interactive discussion with [facility] transfer center regarding patient presentation VELASQUEZ and management. Patient has been accepted graciously to the [facility] emergency room for further workup and management by Dr. Griffin. I was consulted by the PORTIA, and we discussed the complexity of the problems being addressed. I approved the treatment and management plan for this patient's care in the emergency department, thus performing a substantive portion of the medical decision making. Patient's hemoglobin resulted just prior to transfer hemoglobin is 5.4. Upon further investigation they state that patient has had black stools since she has gone home. She is hemodynamically stable throughout her stay in the emergency department and is no evidence of critical bleeding that would make her unstable for transfer however it is necessary to transfuse a unit en route. Darrian Us MD Critical Care <LAURA Desai - Last Filed: 03/20/25 17:04> Critical Care Time Critical Care Time: No
--- NOTE | 2025-03-20 12:56 | ECG_ITS ---
APPROVED REPORT Exam: Resting ECG HR:91 bpm ECG Measurements Heart Rate 91 AXES QRSd 136 QRS -59 QT 416 T 127 QTc 464 Conclusion ATRIAL FIBRILLATION WITH ABERRANT CONDUCTION OR VENTRICULAR PREMATURE COMPLEXES INTRAVENTRICULAR CONDUCTION DELAY [130+ ms QRS DURATION] POSSIBLE ANTERIOR MYOCARDIAL INFARCTION , PROBABLY OLD [30 ms Q WAVE IN V3/V4, OR R < 0.2 mV IN V4] No STEMI Electronically signed by : CATE HOLLAND, 03/20/2025 15:37:01
[2025-03-20 13:42] LABS: Alanine Aminotransferase 21 U/L (12-78); Albumin Level 2.5 g/dl (3.5-5.0); Albumin/Globulin Ratio 1.1 (1.1-1.8); Alkaline Phosphatase 180 U/L (38-126); Anion Gap 6.3 mEq/L (5-15); Aspartate Amino Transferase 29 U/L (14-36); Bilirubin,Total 1.3 mg/dl (0.2-1.3); Blood Urea Nitrogen 18 mg/dl (7-17); Calcium 7.6 mg/dl (8.4-10.2); Carbon Dioxide 32 mmol/L (22.0-30.0); Chloride 98 mmol/L (98-107); Creatinine Clearance Estimated 39 mL/min (50-200); Estimated Glomerular Filt Rate 30 ml/min (>60); GFR (African American) 36 ML/MIN (>60); Globulin 2.2 g/dL (1.3-3.2); Glucose 138 mg/dl (74-100); Magnesium 1.6 mg/dl (1.6-2.3); Phosphorous 2.2 mg/dl (2.5-4.5); Potassium 3.3 mmoL/L (3.5-5.1); Sodium 133 mmol/L (136-145); Total Protein,Serum 4.7 g/dl (6.3-8.2)
--- NOTE | 2025-03-20 13:45 | PC.NURSE ---
Pt arrives via [facility] from home with complaints of weakness and difficulty walking after her dialysis today. Pt is unsure how much fluid was taken off at her tx today. Pt is A/O x 4 , lives at home with her son. Recently discharged from for osteomyelitis of left foot. Admitted February 09 discharged on March 17, for a total of 36 day stay. Son said they wanted to keep her but she cried wanting to go home.
[2025-03-20] MEDS: SODIUM CHLORIDE 0.9% 500ML BAG 500 ML IV (13:48)
--- NOTE | 2025-03-20 14:08 | ECG_ITS ---
APPROVED REPORT Exam: Resting ECG HR:96 bpm ECG Measurements Heart Rate 96 AXES SD 205 P 91 QRSd 139 QRS -58 QT 413 T 131 QTc 467 Conclusion Atrial fibrillation INTRAVENTRICULAR CONDUCTION DELAY [130+ ms QRS DURATION] POSSIBLE ANTERIOR MYOCARDIAL INFARCTION , PROBABLY OLD [30 ms Q WAVE IN V3/V4, OR R < 0.2 mV IN V4] No STEMI Electronically signed by : CATE HOLLAND, 03/20/2025 15:36:21
[2025-03-20 14:17] LABS: Procalcitonin 2.43 ng/mL (0.0-2.0)
[2025-03-20] MEDS: MORPHINE 2MG/ML SYRINGE 1 MG IV (14:22)
--- NOTE | 2025-03-20 14:25 | PC.NURSE ---
Unable to get US IV, #22 placed in RU chest. Will straight stick for labs
[2025-03-20 15:33] LABS: C-Reactive Protein 38.4 mg/L (0-4)
--- NOTE | 2025-03-20 16:16 | PC.NURSE ---
Dr. Us speaking with patients son regarding POC.
[2025-03-20 16:51] LABS: Basophils % 0.4 % (0.1-2.0); Eosinophils # 0.1 Kmm3 (0.0-0.4); Immature Granulocytes # 0.09 10^3uL; Lymphocytes # 0.5 K/mm3 (0.7-4.5); Lymphocytes % 5.9 % (10-50); Mean Corpuscular HGB Conc 31.2 g/dL (31.8-35.4); Mean Corpuscular Volume 102.4 fl (81-99); Mean Platelet Volume 10.5 fl (7.4-10.4); Monocytes # 0.8 K/mm3 (0.1-1.0); Monocytes % 9.2 % (1.7-9.3); Neutrophils # 7.4 K/mm3 (1.8-7.8); Neutrophils % 82.5 % (37.0-80.0); Nucleated Red Blood Cells # 0.24 10^3/uL; Nucleated Red Blood Cells % 2.7 %; Platelet Count 200 K/mm3 (142-424); Red Blood Count 1.69 M/mm3 (4.20-5.40); Red Cell Distribution Width 22.8 % (11.5-17.5); Red Cell Distribution Width-SD 77.4 fL
--- NOTE | 2025-03-20 16:53 | PC.NURSE ---
Called for a patient transfer per they said that they would call back.
[2025-03-20 17:01] LABS: Hematocrit 17.3 % (37.0-47.0)
[2025-03-20 17:02] LABS: Hemoglobin 5.4 g/dL (12.2-16.2); MANUAL DIFFERENTIAL MANUAL DIFFERENTIAL (MANUAL DIFF)
[2025-03-20] MEDS: BELLADONNA ALKALOIDS 60 ML ML PO (17:07)
--- NOTE | 2025-03-20 17:08 | PC.NURSE ---
cbc resulted back at this time with critical lab h/h of 5.4/17.3. Dr. Us requesting emergent release blood at this time. called and spoke with serge in lab.
--- NOTE | 2025-03-20 17:15 | PC.NURSE ---
lab at bedside with emergent blood.
--- NOTE | 2025-03-20 17:16 | PC.NURSE ---
[facility] being called at this time.
--- NOTE | 2025-03-20 17:23 | PC.NURSE ---
Emergent blood being administered at this time. 5.4 /17.3. Luisa Steinberg present to witness blood, consent signed, son at bedside.
[2025-03-20 18:31] LABS: Erythrocyte Sedimentation Rate 54 mm/hr (0-30)
[2025-03-20 18:41] LABS: Lymphocytes % 10 % (10-50); Macrocytosis 1+; Monocytes % 4 % (2-9); Neutrophils % 86 % (42-76); Total Cells Counted 100
[2025-03-20 18:42] LABS: Platelet Estimate Normal
--- NOTE | 2025-03-27 07:43 | PC.NURSE ---
Culture results faxed to [facility] at [phone].
== END 2025-03-20 19:09 | disposition short-term general hospital (02) ==
PROVIDERS: Physician Assistant; Emergency Provider Emergency Medicine; PCP Family Medicine
DX: M86.172 Other acute osteomyelitis, left ankle and foot (principal); D63.1 Anemia in chronic kidney disease; R53.1 Weakness; I48.20 Chronic atrial fibrillation, unspecified; E11.22 Type 2 diabetes mellitus with diabetic chronic kidney disease; N18.6 End stage renal disease; Z99.2 Dependence on renal dialysis
CPT/HCPCS: 36430; 80053; 83735; 84100; 84145; 85007; 85025; 85027; 85651; 86140; 86850; 93005; 96374; 99285; J2270; J7040; P9016

== ENCOUNTER 2025-06-14 11:33 | Outpatient (CLI) | payer MEDICARE, SELFPAY ==
--- OUTSIDE RECORDS SUMMARY | 2025-04-15 13:20 | XMS_ITS | Encounter Summary ---
Author Organization [facility] Address [address] [place] [address] Care Team Providers Care Biomass Boiler Operator Name Role Phone Salomon Juarez MD Primary Care Provider [phone] Amalia Lopez LPN Unavailable Unavailabl e Reason for Referral * Imaging (Routine) - Closed Specialty Diagnoses / Procedures Referred By Tye stoddard Referred To Contact Cardiology Diagnoses PAD (peripheral artery disease) (CMS/HCC) Procedures VAS Ankle Brachial Index - VENU Only Darleen Carson PA [address] [place] [address] Phone: tel: fax: Referral ID Status Reason Start Date Expiration Date V isits Requested Visits Authorized [id number] Closed Perform Procedure 04/15/2025 10/15/2026 1 1 * Other Medical (Routine) - Pending Review Specialty Diagnoses / Procedures Referred By Tye stoddard Referred To Contact Diagnoses Delayed 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) Procedures Debridement Arterial Ulcer (amputation) Left Toe (Comment which one) (open amputation, 4th toe) Surgical Open Surgical Incision Darleen Carson PA [address] [place] [address] Phone: tel: fax: Referral ID Status Reason Start Date Expiration Date V isits Requested Visits Authorized [id number] Pending Review 04/15/2025 10/15/2026 1 1 Reason for Visit * Reason Comments Gangrene of toe of left foot * Consultation (Routine) - Closed Specialty Diagnoses / Procedures Referred By Contac t Referred To Contact Wound Care Diagnoses Osteomyelitis of left foot, unspecified type (CMS/HCC) Jose G Sam MD [address] [place] [address] Phone: tel: fax: Referral ID Status Reason Start Date Expiration Date V isits Requested Visits Authorized [id number] Closed Specialty Services Required 03/17/2025 09/16/2026 1 1 Encounter Details Date Type Department Care Team (Late st Contact Info) Description 04/15/2025 1:20 PM EDT Office Visit [facility] [address] [facility] 5th Floor [address] [place] [address] Darleen Carson PA [address] [facility] [address] [place] [address] PAD (peripheral artery disease) (CMS/HCC) (Primary Dx); Delayed 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) Social History Tobacco Use Types Packs/Day Years Used Date Smoking Tobacco: Never Passive Smoke Exposure: Never Smokeless Tobacco: Never Alcohol Use Standard Drinks/Week Comments No 0 (1 standard drink = 0.6 oz pure alcohol) Alcoholic Drinks/day: Never Drank Alcohol PHQ-2 Answer Date Recorded Patient Health Questionnaire-2 Score 0 01/13/2025 PHQ-9 Answer Date Recorded Patient Health Questionnaire-9 Score 0 12/30/2024 Humiliation, Afraid, Rape, and Kick questionnair e Answer Date Recorded Within the last year, have y ou been afraid of your partner or ex-partner? No 03/21/2025 Within the last year, have y ou been humiliated or emotionally abused in other ways by your partner or ex-partner? No Within the last year, have y ou been kicked, hit, slapped, or otherwise physically hurt by your partner or ex-partner? No 03/21/2025 Within the last year, have y ou been raped or forced to have any kind of sexual activity by your partner or ex-partner? No 03/21/2025 AUDIT-C Answer Date Recorded Q1: How often do you have a drink containing alcohol? Never 04/16/2025 Q2: How many drinks containi ng alcohol do you have on a typical day when you are drinking? Patient does not drink Q3: How often do you have si x or more drinks on one occasion? Never 04/16/2025 Hunger Vital Sign Answer Date Recorded Within the past 12 months, y ou worried that your food would run out before you got the money to buy more. Never true 03/21/20 25 Within the past 12 months, t he food you bought just didn't last and you didn't have money to get more. Never true 03/21/2025 PRAPARE - Transportation Answer Date Re corded In the past 12 months, has l ack of transportation kept you from medical appointments or from getting medications? No 03/2025 In the past 12 months, has l ack of transportation kept you from meetings, work, or from getting things needed for daily living? No 03/21/2025 Housing Stability Vital Sign Answer Jordon e Recorded In the last 12 months, was t here a time when you were not able to pay the mortgage or rent on time? No 03/21/2025 Number of Times Moved in the Last Year Not on fi le 03/21/2025 [facility] were you homeless or living in a long term (including now)? No 03/21/2025 Utilities Answer Date Recorded In the past 12 months has th e electric, gas, oil, or water company threatened to shut off services in your home? No 03/21/2025 PHQ-2A Answer Date Recorded Depression Risk 0 11/25/2022 Comments No Sex and Gender Information Value Date Recorded Sex Assigned at Female 12/17/2021 8:47 AM EST Legal Sex Female 6:36 PM EDT Gender Identity Female 12/17/2021 8:47 AM EST Sexual Orientation Straight 12/17/2021 8: 47 AM EST documented as of this encounter Last Filed Vital Signs Vital Sign Reading Time Taken Comments Blood Pressure 100/62 04/15/2025 1:27 PM EDT Pulse 118 04/15/2025 1:27 PM EDT Temperature 36.5 C (97.7 F) 04/15/2025 1:27 PM EDT Respiratory Rate - - Oxygen Saturation - - Inhaled Oxygen Concentration - - Weight 72 kg (158 lb 11.7 oz) 04/15/2025 1:27 PM EDT Height 167.6 cm (5' 6 ) 04/15/2025 1:27 PM EDT Body Mass Index 25.62 04/15/2025 1:27 PM EDT documented in this encounter Miscellaneous Notes * Patient Instructions - Oliver Muse RN - 04/15/2025 1:20 PM EDT [facility] Physician Orders/Patient Instructions Should you notice a significant change in your wound(s) (such as increased drainage, foul odor, or pain) or have questions or problems following these instructions, please contact us at or call your primary care physician or the hospital emergency rooms. 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 female who comes in to see us today for: Chief Complaint Gangrene of toe of left foot She presents today for wound check. She states she has been applying collagenase to the left 4th toe amputation site daily. She applies betadine to her other toes. She has not seen podiatry in quite some time. She underwent left FILAMENT CUTTER angioplasty in December 2024 but has been unable to tolerate OAC secondary to melena. She is maintained on a statin. Vascular Surgical History: 12/16/24 (): Ultrasound-guided percutaneous access of the right common femoral artery Left lower extremity angiogram with selective catheterization of the posterior tibial artery (3rd order) Percutaneous transluminal balloon angioplasty of the left posterior tibial artery (PT) Left 4th toe ray amputation Debridement Arterial Ulcer (amputation) Left Toe (Comment which one) (open amputation, 4th toe) Surgical Open Surgical Incision Wound 12/16/24 Arterial Ulcer Surgical Open Surgical Incision Toe (Comment which one) Left Performed by: Darleen Carson PA Authorized by: Darleen Carson PA Consent Consent obtained? written (indications for the procedure include removal of devitalized, necrotic or nonviable tissue) Consent given by: patient Risks discussed? procedural risks discussed (risks including but not limited to infection, pain, bleeding, scarring, tissue and nerve damage) Time out called at 04/15/2025 2:30 PM Immediately prior to the procedure a time out was called and the performing provider verified the correct patient, procedure, equipment, office support associate, and site/side marked as required. Debridement Details Performed by: LAURA Debridement type: surgical Comment regarding debridement type: excisional Level of debridement: subcutaneous tissue Pain control: lidocaine 4% Pain control administration type: topical Pre-debridement measurements Length (cm): 3 Width (cm): 2 Depth (cm): 0.3 Surface Area (cm^2): 4.71 Post-debridement measurements Length (cm): 3 Width (cm): 2 Depth (cm): 0.3 Percent debrided: 100% Surface Area (cm^2): 4.71 Area Debrided (cm^2): 4.71 Volume (cm^3): 0.94 Tissue and other material debrided: subcutaneous tissue Devitalized tissue debrided: biofilm, callus, exudate, fibrin, necrotic debris and slough Instrument(s) utilized: curette Bleeding: small Hemostasis obtained with: pressure Procedural pain (0-10): 0 Post-procedural pain: 0 Response to treatment: procedure was tolerated well Assessment/Plan In Summary: Torri Burk is a 74 y.o. year old female who has several necrotic toes bilaterally as well as a nonhealing left toe amputation site. Debridement was performed today and I recommend she continue Santyl with damp to dry dressing changes daily. Counseled on the importance of offloading. I recommend she return in 2 weeks for ABIs. I discussed this patient with Dr. Mccabe who has agreed to see this patient for podiatric care. She will follow up with him in the coming weeks. Counseled on signs and symptoms of infection. Advised to contact us or present to the closest emergency department with any concerns. Below is a summary of the diagnoses addressed in today's visit and any associated orders. 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 documented in this encounter Plan of Treatment Upcoming Encounters Date Type Department Care Team (Late st Contact Info) Description 06/18/2025 9:00 AM EDT Office Visit [facility] [address] [place] [address] Darleen Carson PA [address] [facility] [address] [place] [id number] 07/11/2025 3:15 PM EDT Office Visit [facility] [address] [place] [address] Ely Aguirre PA [address] [place] [address] 07/28/2025 8:30 AM EDT Appointment [facility] [address] [place] [address] 07/28/2025 9:20 AM EDT Office Visit [facility] [address] [place] [address] Lelia Larios MD [address] [place] [address] documented as of this encounter Procedures Procedure Name Priority Date/Time Associated Diagnosis Comments OH DEBRIDEMENT, SKIN, SUB-Q TISSUE,=<20 SQ CM Routine 04/15/2025 1:20 PM EDT Delayed 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) documented in this encounter Results * VAS Ankle Brachial Index - VENU Only (05/15/2025 1:11 PM EDT) Anatomical Region Laterality Modality Vascular Ultrasound Impressions 05/15/2025 5:54 PM EDT Right: Abnormal study, waveform analysis indicate normal arterial flow at rest, but there is evidence for medial calcinosis. Toe pressure absent. Left: Abnormal study, waveform analysis demonstrates hemodynamically significant infrainguinal disease. There is evidence for medial calcinosis. No signal is detected at the ankle level of the FILAMENT CUTTER. Toe pressure is absent. COMMUNICATION: Per this written report. Preliminary report signed by Fany Sosa on 05/15/2025 1:44 PM By electronically signing this report, I, the attending physician, attest that I have personally reviewed the images/data for the above examination(s) and I agree with the final edited report. Drafted by Fany Sosa on 05/15/2025 1:32 PM Final report signed by Joseluis Carrillo MD on 05/15/2025 5:54 PM Narrative 05/15/2025 5:54 PM EDT CLINICAL INDICATION: Surveillance of angioplasty/stent; S/p Angioplasty of the left FILAMENT CUTTER performed on 12/16/2024 TECHNIQUE: Non-invasive, continuous wave doppler exam with segmental pressures and spectral analysis of the lower extremity was performed. COMPARISON: Prior exam performed on 01/07/2025-evidence for medial calcinosis. . FINDINGS: Right: Multiphasic waveforms are demonstrated in the IRON PLASTIC BULLET MAKER, FILAMENT CUTTER and DPA. Vessels are non-compressible at the ankle, consistent with medial calcinosis. Toe pressure absent. Left: Multiphasic waveforms are demonstrated in the IRON PLASTIC BULLET MAKER. Monophasic waveforms are demonstrated in the DPA. No waveform is detected at the ankle level of the FILAMENT CUTTER . Vessels are non-compressible at the ankle, consistent with medial calcinosis. Toe pressure absent Procedure Note Joseluis Carrillo MD - 05/15/2025 CLINICAL INDICATION: Surveillance of angioplasty/stent; S/p Angioplasty of the left PTAperformed on 12/16/2024 TECHNIQUE: Non-invasive, continuous wave doppler exam with segmental pressures andspectral analysis of the lower extremity was performed. COMPARISON: Prior exam performed on 01/07/2025-evidence for medial calcinosis. . FINDINGS: Right: Multiphasic waveforms are demonstrated in the IRON PLASTIC BULLET MAKER, FILAMENT CUTTER and DPA. Vesselsare non-compressible at the ankle, consistent with medial calcinosis. Toepressure absent. Left: Multiphasic waveforms are demonstrated in the IRON PLASTIC BULLET MAKER. Monophasic waveformsare demonstrated in the DPA. No waveform is detected at the ankle level ofthe FILAMENT CUTTER . Vessels are non-compressible at the ankle, consistent withmedial calcinosis. Toe pressure absent IMPRESSION: Right: Abnormal study, waveform analysis indicate normal arterial flow at rest,but there is evidence for medial calcinosis. Toe pressure absent. Left: Abnormal study, waveform analysis demonstrates hemodynamically significantinfrainguinal disease. There is evidence for medial calcinosis. No signalis detected at the ankle level of the FILAMENT CUTTER. Toe pressure is absent. COMMUNICATION: Per this written report. Preliminary report signed by Fany Sosa on 05/15/2025 1:44 PM By electronically signing this report, I, the attending physician, attestthat I have personally reviewed the images/data for the aboveexamination(s) and I agree with the final edited report. Drafted by Fany Sosa on 05/15/2025 1:32 PM Final report signed by Joselius Carrillo MD on 05/15/2025 5:54 PM Darleen SANCHEZ CV VASCULAR PROCEDURES Final Result * OH DEBRIDEMENT, SKIN, SUB-Q TISSUE,=<20 SQ CM (04/15/2025 1:20 PM EDT) Narrative Darleen Carson PA - 04/15/2025 1:20 PM EDT Darleen Carson PA 04/15/2025 2:47 PM Debridement Arterial Ulcer (amputation) Left Toe (Comment which one) (open amputation, 4th toe) Surgical Open Surgical Incision Wound 12/16/24 Arterial Ulcer Surgical Open Surgical Incision Toe (Comment which one) Left Performed by: Darleen Carson PA Authorized by: Darleen Carson PA Consent Consent obtained? written (indications for the procedure include removal of devitalized, necrotic or nonviable tissue) Consent given by: patient Risks discussed? procedural risks discussed (risks including but not limited to infection, pain, bleeding, scarring, tissue and nerve damage) Time out called at 04/15/2025 2:30 PM Immediately prior to the procedure a time out was called and the performing provider verified the correct patient, procedure, equipment, office support associate, and site/side marked as required. Debridement Details Performed by: LAURA Debridement type: surgical Comment regarding debridement type: excisional Level of debridement: subcutaneous tissue Pain control: lidocaine 4% Pain control administration type: topical Pre-debridement measurements Length (cm): 3 Width (cm): 2 Depth (cm): 0.3 Surface Area (cm^2): 4.71 Post-debridement measurements Length (cm): 3 Width (cm): 2 Depth (cm): 0.3 Percent debrided: 100% Surface Area (cm^2): 4.71 Area Debrided (cm^2): 4.71 Volume (cm^3): 0.94 Tissue and other material debrided: subcutaneous tissue Devitalized tissue debrided: biofilm, callus, exudate, fibrin, necrotic debris and slough Instrument(s) utilized: curette Bleeding: small Hemostasis obtained with: pressure Procedural pain (0-10): 0 Post-procedural pain: 0 Response to treatment: procedure was tolerated well Darleen SANCHEZ IN CLINIC/BEDSIDE ORDERABLES Final Result documented in this encounter Visit Diagnoses Diagnosis PAD (peripheral artery disease) (CMS/HCC)- Primary Unspecified peripheral vascular disease Delayed surgical wound healing of toe amputation stump ([facility]/HCC) PAD (peripheral artery disease) (CMS/HCC) Unspecified peripheral vascular disease documented in this encounter Additional Health Concerns Infection Onset Date Last Indicated Resolved Time Pseudomonas - MDRO Comment:Wound culture collected 02/10/2025 positive for Pseudomonas aeruginosa MDR. This patient will require contact precautions indefinitely. Do not resolve this infection. 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 This patient will require contact precautions indefinitely. Do not resolve this infection. 02/27/2025 02/27/2025 Assessment Noted Time PHQ-9 Depression Total Score: 0 12/31/19 9:46 AM EDT A fall risk assessment has been complete d for the patient 04/15/2025 1:32 PM EDT A Body Mass Index follow-up plan has been documented for the patient 04/15/2025 2:35 PM EDT documented as of this encounter Care Teams Biomass Boiler Operator Relationship Specialty Start Date End Date Salomon Juarez MD [address] [place] [address] [address]1 [address] [place] [address] PCP - General 02/26/21 Amalia Lopez LPN [facility] TCM Nurse 03/18/25 04/30/25 documented as of this encounter
--- OUTSIDE RECORDS SUMMARY | 2025-04-16 11:00 | XMS_ITS | Encounter Summary ---
Author Organization [facility] Address [address] [place] [address] Care Team Providers Care Fun House Operator Name Role Phone Salomon Juarez MD Primary Care Provider [phone] Amalia Lopez SALES AND MARKETING AGENT Unavailable Unavailabl e Encounter Details Date Type Department Care Team (Late st Contact Info) Description 04/16/2025 11:00 AM EDT Office Visit [facility] [address] [place] [address] Hallie Frausto, HAM MARKER [address] [address] Gastroesophageal reflux disease with esophagitis without hemorrhage (Primary Dx); Nausea and vomiting, unspecified vomiting type Social History Tobacco Use Types Packs/Day Years Used Date Smoking Tobacco: Never Passive Smoke Exposure: Never Smokeless Tobacco: Never Tobacco Cessation:Counseling Given: Not Answered Alcohol Use Standard Drinks/Week Comments No 0 [...] any time in the past 12 m [facility], were you homeless or living in a care home (including now)? No 03/21/2025 Utilities Answer Date [...] Sign Reading Time Taken Comments Blood Pressure 95/67 04/16/2025 11:06 AM EDT Pulse 94 04/16/2025 11:06 AM EDT Temperature - - Respiratory Rate 16 04/16/2025 11:06 AM EDT Oxygen Saturation 91% 04/16/2025 11:06 AM EDT Inhaled Oxygen Concentration - - Weight 71.7 kg (158 lb) 04/16/2025 11:06 AM EDT Height 165.1 cm (5' 5 ) 04/16/2025 11:06 AM EDT Body Mass Index 26.29 04/16/2025 11:06 AM EDT documented in this encounter Functional Status * AUDIT-C Score Answer Date of Assessment Author 0 04/16/2025 11:07 AM EDT Helga Cho CNA * Question Answer Date of Assessment Author Q1: How often do you have a drink containing alcohol? Never 04/16/2025 11:07 AM EDT Helga Cho CNA Q2: How many drinks containing alcohol do you have on a typical day when you are drinking? Patient does not drink 04/16/2025 11:07 AM EDT Helga Cho CNA Q3: How often do you have six or more drinks on one occasion? Never 04/16/2025 11:07 AM EDT Helga Cho CNA documented as of this encounter Miscellaneous Notes * Assessment & Plan Note - Hallie Frausto APRN - 04/16/2025 11:00 AM EDT Associated Problem(s): Gastroesophageal reflux disease with esophagitis without hemorrhage Recent admission: Last EGD (03/13/2025): with no esophageal or gastric varices, moderate edematous, friable, granular,nodular mucosa in the duodenal bulb; there was stigmata of recent hemorrhage biopsy - Hb 5.8 6/10, given 2 units blood - Seen by GI suspect chronic blood loss is from the duodenal abnormal mucosa seen on EGD the prior week (path was chronic inflammation). - Continue po BID PPI - Epoetin as per nephrology - Continue home lactulose and midodrine -patient unsure if she was taking omeprazole, refilled for the patient -closer GI appointment made 07/11/25 -patient lives with her son and plans to [place] this coming [place] -urged to follow up with PCP for on 04/22/25 for further management Orders: omeprazole (PriLOSEC) [address] capsule; Take 1 capsule by mouth 2 times a day. Do not crush or chew. * Assessment & Plan Note - Hallie Frausto APRN - 04/16/2025 11:00 AM EDT Associated Problem(s): Nausea and vomiting Orders: ondansetron ODT (Zofran-ODT) 4 MG disintegrating tablet; Dissolve 1 tablet on the tongue every 8 hours as needed for nausea or vomiting. * Patient Instructions - Helga Cho - 04/16/2025 11:00 AM EDT You have an appointment to see Dr. Juarez on 04/22/25 at 10:30am Please call if you need to cancel or reschedule: [phone] * Progress Notes - Hallie Frausto APRN - 04/16/2025 11:00 AM EDT Subjective Patient ID: Torri uBrk is a 74 y.o. female. No chief complaint on file. 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 She was found to have acute anemia requiring blood transfusion, she was seen by GI and suspect chronic blood loss is from the duodenal abnormal mucosa seen on EGD the prior week (path was chronic inflammation). Her hospital coursewas complicated by delirium on dementia, she was seen by Neurology started on donepezil and plan for outpatient follow up. Not a transition of care visit as it is outside of the time frame. Patient presents with granddaughter today and states her abdominal pain has gotten a little bit better and is not hurting as much. Does not know if she is taking her omeprazole. Patient states she eats well and has inconsistent bowel movements with altering diarrhea and constipation. Plans to fly to [place] with her daughter this Monday and requests refill of zofran before she goes. The following portions of the chart were reviewed this encounter and updated as appropriate: Review of Systems Constitutional: Negative for fatigue, fever and unexpected weight change. HENT: Negative. Respiratory: Negative for chest tightness and shortness of breath. Cardiovascular: Negative for chest pain, palpitations and leg swelling. Gastrointestinal: Negative for abdominal pain. Endocrine: Negative. Genitourinary: Negative. Musculoskeletal: Negative. Skin: Negative. Neurological: Negative. Objective Physical Exam Constitutional: General: She is not in acute distress. Appearance: Normal appearance. She is not ill-appearing. Pulmonary: Effort: Pulmonary effort is normal. No respiratory distress. Abdominal: General: Abdomen is flat. Musculoskeletal: General: Normal range of motion. Skin: General: Skin is warm and dry. Neurological: Mental Status: She is alert and oriented to person, place, and time. Psychiatric: Behavior: Behavior normal. Thought Content: Thought content normal. Judgment: Judgment normal. Assessment/Plan Assessment & Plan Gastroesophageal reflux disease with esophagitis without hemorrhage Recent admission: Last EGD (03/13/2025): with no esophageal or gastric varices, moderate edematous, friable, granular,nodular mucosa in the duodenal bulb; there was stigmata of recent hemorrhage biopsy - Hb 5.8 6/10, given 2 units blood - Seen by GI suspect chronic blood loss is from the duodenal abnormal mucosa seen on EGD the prior week (path was chronic inflammation). - Continue po BID PPI - Epoetin as per nephrology - Continue home lactulose and midodrine -patient unsure if she was taking omeprazole, refilled for the patient -closer GI appointment made 07/11/25 -patient lives with her son and plans to [place] this coming [place] -urged to follow up with PCP for on 04/22/25 for further management Orders: omeprazole (PriLOSEC) [address] capsule; Take 1 capsule by mouth 2 times a day. Do not crush or chew. Nausea and vomiting, unspecified vomiting type Orders: ondansetron ODT (Zofran-ODT) 4 MG disintegrating tablet; Dissolve 1 tablet on the tongue every 8 hours as needed for nausea or vomiting. documented in this encounter Plan of Treatment Upcoming Encounters Date Type Department Care Team (Late st Contact Info) Description 06/18/2025 9:00 AM EDT Office Visit [facility]ascular [facility] [address] [facility] 5th Floor [address] [place] [address] aDrleen Carson PA [address] [facility] [address] [place] [address] 07/11/2025 3:15 PM EDT Office Visit [facility] Medicine Specialties [address] [facility] 2nd [place] [address] Ely Aguirre PA [address] [place] [address] 07/28/2025 8:30 AM EDT Appointment [facility] Radiology [address] [place] [address] 07/28/2025 9:20 AM EDT Office Visit [facility] Medicine Specialties [address] [facility] [place] [address] [place] [address] Lelia Larios MD [address] [place] [address] documented as of this encounter Visit Diagnoses Diagnosis Gastroesophageal reflux disease with esophagitis without hemorrhage- Primary Nausea and vomiting, unspecified vomiting type documented in this encounter Additional Health Concerns [...] has been complete d for the patient 04/16/2025 11:08 AM EDT A Body Mass Index follow-up plan has been documented for the patient 04/16/2025 11:30 AM EDT documented as of this encounter Care Teams Fun House Operator Relationship Specialty Start Date End Date Salomon Juarez MD [address] [place] [address] [address] [place] [address] PCP - General 02/26/21 Amalia Lopez LPN [facility] TCM Nurse 03/18/25 04/30/25 documented as of this encounter
--- OUTSIDE RECORDS SUMMARY | 2025-04-17 15:50 | XMS_ITS | Continuity of Care Document ---
Author Organization [facility] Care Coordina tion Address [address] [place] [address]- Care Team Providers Care Roustabout Head Name Role Phone Salomon Juarez Primary Care Physician [phone] Encounter 01/31/25 - 04/17/25 [facility] [address] [place] [address]- [place] Allergies, Adverse Reactions, Alerts Substance Criticality Severity Reaction Reaction Severity Status cefTRIAXone Unable to assess criticality Anaphylaxis Active Immunizations Given and Recorded Vaccine Date Status Refusal Reason influenza (LAIV) 06/18/20 Recorded pneumococcal (PCV13) 09/07/19 Recorded Medications acetaminophen 325 mg oral capsule 325 mg = 1 cap, Oral, TID, 0 Refill(s) Start Date: 11/15/22 Status: Ordered Albuterol (Eqv-Proventil HFA) 90 mcg/inh inhalation aerosol = 2 puffs, Inhale, As Needed, 0 Refill(s) Start Date: 08/02/23 Status: Ordered amiodarone 200 mg oral tablet 200 mg = 1 tab, Oral, Daily, # 30 tab, 0 Refill(s) Start Date: 11/08/24 Status: Ordered atorvastatin 20 mg oral tablet 20 mg = 1 tab, Oral, Daily, 0 Refill(s) Start Date: 11/15/22 Status: Ordered bisoprolol 5 mg oral tablet 5 mg = 1 tab, Oral, Daily, 0 Refill(s) Start Date: 08/02/23 Status: Ordered digoxin 125 mcg (0.125 mg) oral tablet 62.5 mcg = 0.5 tab, Oral, every other day, 0 Refill(s) Start Date: 03/20/25 Status: Ordered folic acid 1 mg, Oral, Daily, 0 Refill(s) Start Date: 08/17/21 Status: Ordered insulin glargine (concentrated) 300 units/mL subcutaneous solution 6 units, Subcutaneous, hs, # 1.5 mL, 0 Refill(s) Start Date: 08/02/23 Status: Ordered lactulose 20 g oral powder for reconstitution See Instructions, n/a, 0 Refill(s) Start Date: 08/17/21 Status: Ordered Lasix 80 mg oral tablet 80 mg = 1 tab, Oral, Daily, # 30 tab, 0 Refill(s) Start Date: 08/02/23 Status: Ordered melatonin 5 mg oral capsule 5 mg = 1 cap, Oral, every day at bedtime, 0 Refill(s) Start Date: 11/15/22 Status: Ordered metoprolol tartrate 25 mg oral tablet 25 mg = 1 tab, Oral, BID, # 60 tab, 0 Refill(s) Start Date: 03/20/25 Status: Ordered NovoLIN 70/30 3 units, Subcutaneous, TID(AC), TID with meals, 0 Refill(s) Start Date: 06/28/24 Status: Ordered oxyCODONE 5 mg oral capsule 5 mg = 1 cap, Oral, every 6 hr, PRN as needed for pain, 0 Refill(s) Start Date: 03/20/25 Status: Ordered pantoprazole 40 mg oral delayed release tablet 40 mg = 1 tab, Oral, Daily, # 30 tab, 0 Refill(s) Start Date: 07/31/23 Status: Ordered prednisoLONE 10 mg oral tablet, disintegrating 5 mg, Oral, Daily, 0 Refill(s) Start Date: 12/10/21 Status: Ordered Renvela 800 mg oral tablet 1,600 mg, Oral, AC, 0 Refill(s) Start Date: 08/17/21 Status: Ordered Xifaxan 550 mg, Oral, BID, 0 Refill(s) Start Date: 08/17/21 Status: Ordered [...] systolic and diastolic heart failure Confirmed Active COPD - Chronic obstructive pulmonary disease Confirmed Active Dependence on hemodialysis due to end stage renal disease Confirmed Active Dependence on supplemental oxygen Confirmed Active Diabetes mellitus type II Confirmed Active Fluid overload Confirmed Active Hypertension in chronic kidney disease [...] Name: Abby Durham Position: External Provider - Manager Of It Member Role: Manager Of It Address: Address: [address] [place] [address]- Name: [facility] Position: External Provider - Clinic Member Role: Dialysis Center Address: Address: [address] [place] [address]- Name: dr Mary Duffy Member Role: Vice President Quality Improvement Name: LEONARD Buitrago, Rosa Position: Nurse - [facility] Member Role: Office Helper Clerical Name: Jitendra Conrad Member Role: Other Name: Salomon Juarez Position: External Provider Member Role: Primary Care Provider Address: Address: [address] [place] [id number] Care Team Related Persons Name: W[facility] ([facility] -[place] )Alfonzo Name: Wm ([facility]- 20[place])Madhavi Name: Jairon Burk Name: Robina Burk
--- OUTSIDE RECORDS SUMMARY | 2025-05-15 12:09 | XMS_ITS | Encounter Summary ---
Author Organization [facility] Address [address] [place] [address] Care Team Providers Care Body Maker Machine Setter Name Role Phone Salomon Juarez MD Primary Care Provider [phone] Reason for Referral * Imaging (Routine) - Closed Specialty Diagnoses / Procedures Referred By Contac t Referred To Contact Cardiology Diagnoses PAD (peripheral artery disease) (CMS/HCC) Procedures VAS Ankle Brachial Index - VENU Only Darleen Carson PA [address] [place] [address] Phone: tel: fax: Referral ID Status Reason Start Date Expiration Date V isits Requested Visits Authorized [id number] Closed Perform Procedure 04/15/2025 10/15/2026 1 1 Reason for Visit * Imaging (Routine) - Closed Specialty Diagnoses / Procedures Referred By Contac t Referred To Contact Cardiology Diagnoses PAD (peripheral artery disease) ([facility]/HCC) Procedures VAS Ankle Brachial Index - VENU Only Darleen Carson PA [address] [place] [address] Phone: tel: fax: Referral ID Status Reason Start Date Expiration Date V isits Requested Visits Authorized [id number] Closed Perform Procedure 04/15/2025 10/15/2026 1 1 Encounter Details Date Type Department Care Team (Latest Contact Info) Description 05/15/2025 12:09 PM EDT - 05/15/2025 11:59 PM EDT Hospital En[facility] [address] [facility] 5th Floor [address] [place] [address] PAD (peripheral artery disease) ([facility]) Discharge Disposition: Home or Self Care Social History Tobacco Use Types Packs/Day Years [...] you have a drink containing alcohol? Never 05/15/2025 Q2: How many drinks containi ng alcohol do you have on a typical day when you are drinking? Patient does not drink Q3: How often do you have si x or more drinks on one occasion? Never 05/15/2025 Hunger Vital Sign Answer Date Recorded Within [...] any time in the past [address] [facility], were you homeless or living in a nursing home (including now)? No 03/21/2025 Utilities Answer [...] AM EST documented as of this encounter Functional Status * AUDIT-C Score Answer Date of Assessment Author 0 05/15/2025 1:20 PM EDT Phoebe Gatica * Question Answer Date of Assessment Author Q1: How often do you have a drink containing alcohol? Never 05/15/2025 1:20 PM EDT Krissy Gatica Q2: How many drinks containing alcohol do you have on a typical day when you are drinking? Patient does not drink 05/15/2025 1:20 PM EDT Krissy Gatica Q3: How often do you have six or more drinks on one occasion? Never 05/15/2025 1:20 PM EDT Krissy Gatica documented as of this encounter Medications at Time of Discharge acetaminophen (Tylenol) 325 MG tablet Take 2 tablets by mouth every 8 hours as needed for pain. Under [place] law, monthly prescriptions (30 days) can be refilled at 25 days and three-month prescriptions (90 days) at 80 days. Please contact the insurance company with questions if refills are denied. 5 acyclovir (Zovirax) 5 % cream APPLY TOPICALLY FIVE TIMES DAILY FOR 4 DAYS APPLY TO BLISTER AREA DIRECTED 5 atorvastatin (Lipitor) 20 MG tablet Take 1 tablet by mouth daily. 3 B complex-vitamin C-folic acid (Nephro-Tahir) 0.8 MG tablet Take 1 tablet by mouth in the morning. 30 tablet 11 5 12/19/19 26 brimonidine 0.2 % OP ophthalmic solution Administer 1 drop into both eyes in the morning and 1 drop before bedtime. 30 mL 3 5 calcitriol (Rocaltrol) 0.5 MCG capsule Take 1 capsule by mouth 3 times a week. 5 cinacalcet (Sensipar) 30 MG tablet Take 1 tablet by mouth 3 times a week. digoxin (Lanoxin) 125 MCG tablet Take 0.5 tablets by mouth every other day. Next dose 03/18/25 8 tablet 5 dorzolamide-timolol (Cosopt) 2-0.5 % ophthalmic solution Administer 1 drop into both eyes in the morning and 1 drop before bedtime. 30 mL 3 5 ferrous sulfate 324 (65 Fe) MG EC tablet Take 1 tablet by mouth daily with breakfast. Do not crush, chew, or split. HYDROcodone-acetami nophen ([place]) 10-325 MG tablet Take 1 tablet by mouth every 6 hours as needed for severe pain. latanoprost (Xalatan) 0.005 % ophthalmic solution Administer 1 drop into both eyes nightly. 10 mL 3 5 Methoxy PEG-Epoetin Beta (Mircera) 100 MCG/0.3ML solution prefilled syringe Inject as directed. Given once a week at diaylsis midodrine (Proamatine) 5 MG tablet Take 3 tablets by mouth 3 times a day. 270 tablet 5 omeprazole (PriLOSEC) [address] capsuleIndications: Gastroesophageal reflux disease with esophagitis without hemorrhage TAKE 1 CAPSULE BY MOUTH TWICE DAILY BEFORE MEALS, DO NOT CRUSH OR CHEW 180 capsule 5 ondansetron ODT (Zofran-ODT) 4 MG disintegrating tabletIndications:N ausea and vomiting, unspecified vomiting type Dissolve 1 tablet on the tongue every 8 hours as needed for nausea or vomiting. 20 tablet 3 5 06/15/20 25 predniSONE (Deltasone) 5 MG tabletIndications:S arcoidosis,Sarcoido sis of lung (CMS/HCC) Take 1 tablet (5 mg) by mouth 1 (one) time each day. 360 tablet 4 08/22/20 25 traZODone (Desyrel) 50 MG tablet Take 1 tablet by mouth nightly. Xifaxan 550 MG tablet Take 1 tablet by mouth 2 times a day. 5 06/04/20 25 documented as of this encounter Plan of Treatment Upcoming Encounters Date Type Department Care Team (Late st Contact Info) Description 06/18/2025 9:00 AM EDT Office Visit [facility] [address] [facility] 5th Floor [address] [place] [address] Darleen Carson PA [address] [facility] [address] [place] [address] 07/11/2025 3:15 PM EDT Office Visit [facility] Medicine Specialties [address] [place] [address] Ely Aguirre PA [address] [facility] [address] [place] [address] 07/28/2025 8:30 AM EDT Appointment [facility] Radiology [address] [place] [address] 07/28/2025 9:20 AM EDT Office Visit [facility] [address] [place] [address] Lelia Larios MD [address] [facility] [address] [place] [address] documented as of this encounter Procedures Procedure Name Priority Date/Time Associated Diagnosis Comments VAS ANKLE BRACHIAL INDEX - VENU ONLY Routine 05/15/2025 1:11 PM EDT PAD (peripheral artery disease) ([facility]) documented in this encounter Results * VAS [...] detected at the ankle level of the JUKE BOX SERVICER. Toe pressure is absent. COMMUNICATION: Per this [...] of angioplasty/stent; S/p Angioplasty of the left JUKE BOX SERVICER performed on 12/16/2024 TECHNIQUE: Non-invasive, continuous wave doppler exam with segmental pressures and spectral analysis of the lower extremity was performed. COMPARISON: Prior exam performed on 01/07/2025-evidence for medial calcinosis. . FINDINGS: Right: Multiphasic waveforms are demonstrated in the POULTRY HATCHERY LABORER, JUKE BOX SERVICER and DPA. Vessels are non-compressible at the ankle, consistent with medial calcinosis. Toe pressure absent. Left: Multiphasic waveforms are demonstrated in the POULTRY HATCHERY LABORER. Monophasic waveforms are demonstrated in the DPA. No waveform is detected at the ankle level of the JUKE BOX SERVICER . Vessels are non-compressible at the ankle, [...] Right: Multiphasic waveforms are demonstrated in the POULTRY HATCHERY LABORER, JUKE BOX SERVICER and DPA. Vesselsare non-compressible at the ankle, consistent with medial calcinosis. Toepressure absent. Left: Multiphasic waveforms are demonstrated in the POULTRY HATCHERY LABORER. Monophasic waveformsare demonstrated in the DPA. No waveform is detected at the ankle level ofthe JUKE BOX SERVICER . Vessels are non-compressible at the ankle, consistent withmedial calcinosis. Toe pressure absent IMPRESSION: Right: Abnormal study, waveform analysis indicate normal arterial flow at rest,but there is evidence for medial calcinosis. Toe pressure absent. Left: Abnormal study, waveform analysis demonstrates hemodynamically significantinfrainguinal disease. There is evidence for medial calcinosis. No signalis detected at the ankle level of the JUKE BOX SERVICER. Toe pressure is absent. COMMUNICATION: Per this [...] Joseluis Carrillo MD on 05/15/2025 5:54 PM us Darleen SANCHEZ CV VASCULAR PROCEDURES Final Result documented in this encounter Visit Diagnoses Diagnosis PAD (peripheral artery disease) (CMS/HCC) Unspecified peripheral [...] Time PHQ-9 Depression Total Score: 0 12/31/19 25 9:46 AM EDT A fall risk assessment has been complete d for the patient 05/15/2025 1:23 PM EDT A Body Mass Index follow-up plan has been documented for the patient 05/15/2025 2:13 PM EDT documented as of this encounter Care Teams Body Maker Machine Setter Relationship Specialty Start Date End Date Salomon Juarez MD [address] [place] [address] [address] [place] [address] PCP - General 02/26/21 documented as of this encounter
--- OUTSIDE RECORDS SUMMARY | 2025-05-15 13:40 | XMS_ITS | Encounter Summary ---
Author Organization [facility] Address [address] [place] [address] Care Team Providers Care Preventive Medicine Officer Name Role Phone Salomon Juarez MD Primary Care Provider [phone] Reason for Referral * Consultation (Routine) - Authorized Specialty Diagnoses / Procedures Referred By Tye stoddard Referred To Contact Wound Care Diagnoses Gangrene of toe of left foot (CMS/HCC) Darleen Carson PA [address] [place] [address] Phone: tel: fax: Referral ID Status Reason Start Date Expiration Date Visits Requested Visits Authorized [id number] Authorized Specialty Services Required 05/15/2025 11/14/2026 1 1 Reason for Visit * Reason Comments PAD (peripheral artery disease) Encounter Details Date Type Department Care Team (Late st Contact Info) Description 05/15/2025 1:40 PM EDT Office Visit [facility] [address] [address]th [address] [place] [address] Darleen Carson PA [address] [place] [address] Gangrene of toe of left foot (CMS/HCC) (Primary Dx) Social History Tobacco Use Types Packs/Day Years [...] any time in the past 12 m [facility], were you homeless or living in a retirement (including now)? No 03/21/2025 Utilities Answer Date Recorded In the past 12 months has th e [employer], gas, oil, or water company threatened to [...] Sign Reading Time Taken Comments Blood Pressure 84/54 05/15/2025 1:18 PM EDT Pulse 96 05/15/2025 1:18 PM EDT Temperature 36.2 C (97.1 F) 05/15/2025 1:18 PM EDT Respiratory Rate - - Oxygen Saturation 96% 05/15/2025 1:18 PM EDT Inhaled Oxygen Concentration - - Weight 71.7 kg (158 lb) 05/15/2025 1:18 PM EDT Height 165.1 cm (5' 5 ) 05/15/2025 1:18 PM EDT Body Mass Index 26.29 05/15/2025 1:18 PM EDT documented in this encounter Functional Status [...] Krissy Gatica documented as of this encounter Miscellaneous Notes * Patient Instructions - Oliver Muse RN - 05/15/2025 1:40 PM EDT [facility] Physician Orders/Patient Instructions Should you notice a significant change in your wound(s) (such as increased drainage, foul odor, or pain) or have questions or problems following these instructions, please contact us at [phone] or call your primary care physician or the hospital emergency rooms. Wound Care/Dressing: Wound location Right great and fourth toe; left third toe and fourth toe amputation site Cleanse Wound With: Other: Please keep the area dry Apply: Betadine Cover With: Fluff Gauze Secure With: Tape Dressing Changes: Daily We have placed a referral to a clinic which may be able to provide you with hyperbaric oxygen therapy. Please call us if you are unsuccessful at getting an appointment so we can assist you. Please contact us and report to urgent care or ED if signs and symptoms of infection such as fever,chills, new or worsening redness, new or worsening pain, foul-smelling or new and unusual drainage,unusual warmth, or new or worsening swelling become present or continue to be present. * Progress Notes - Darleen Carson PA - 05/15/2025 1:40 PM EDT Subjective Torri Burk is a 74 y.o. female who comes to see us today for: Chief Complaint PAD (peripheral artery disease) HPI She presents today for wound check. She states she has been applying collagenase to the left 4th toe amputation site daily. She applies betadine to her other toes. She has not seen podiatry in quite some time. She underwent left PLEATER HAND angioplasty in December 2024 but has been unable to tolerate OAC secondary to melena. She is maintained on a statin. She presents today for ABIs. Vascular Surgical History: 12/16/24 (): Ultrasound-guided percutaneous access of the right common femoral artery Left lower extremity angiogram with selective catheterization of the posterior tibial artery (3rd order) Percutaneous transluminal balloon angioplasty of the left posterior tibial artery (PT) Left 4th toe ray amputation I personally and independently reviewed the Vascular Lab Images from today's visit which showed: ABIs show evidence of medial calcinosis, bilateral toe pressures are absent. DPA runoff on left, PLEATER HAND/DPA runoff on right. Her chronic comorbid conditions that impact our treatment planning include: Patient Active Problem List Diagnosis Date Noted Gastroesophageal reflux disease with esophagitis without hemorrhage 04/16/2025 Nausea and vomiting 04/16/2025 Delayed surgical wound healing of toe amputation stump ([facility]) 04/15/2025 End stage renal failure on dialysis ([facility]) 04/08/2025 Acute on chronic blood loss anemia 03/21/2025 Melena 03/21/2025 Osteomyelitis of left foot, unspecified type ([facility]) 02/09/2025 Abdominal pain 12/23/2024 Abnormal result of cardiovascular function study 12/23/2024 Acute hyperkalemia 12/23/2024 Acute and chronic respiratory failure with hypoxia 12/23/2024 Acute pain of right shoulder 12/23/2024 Acute pancreatitis 12/23/2024 Anasarca 12/23/2024 Anemia due to blood loss, acute 12/23/2024 Anterior shoulder dislocation 12/23/2024 Ascites of liver 12/23/2024 Asystole ([facility]) 12/23/2024 AV shunt malfunction 12/23/2024 Automatic implantable cardioverter-defibrillator in situ 12/23/2024 Bronchospasm, acute 12/23/2024 C. difficile diarrhea 12/23/2024 Confusion 12/23/2024 Cough 12/23/2024 Diarrhea 12/23/2024 Dizziness 12/23/2024 Dyspnea 12/23/2024 E coli bacteremia 12/23/2024 Elevated alkaline phosphatase level 12/23/2024 Hypertensive encephalopathy 12/23/2024 Hypokalemia 12/23/2024 Hypothermia 12/23/2024 Left leg pain 12/23/2024 Leukopenia 12/23/2024 Metabolic acidosis 12/23/2024 Occult blood positive stool 12/23/2024 Palpitations 12/23/2024 Peripheral edema 12/23/2024 Pleural effusion associated with hepatic disorder 12/23/2024 Protein calorie malnutrition ([facility]/H[facility]) 12/23/2024 Pulmonary artery hypertension (CMS/HCC) 12/23/2024 Respiratory failure 12/23/2024 Third degree AV block (CMS/HCC) 12/23/2024 Upper GI bleeding 12/23/2024 UTI (urinary tract infection) 12/23/2024 Hematoma of right hip, initial encounter 12/08/2024 Combined form of senile cataract of right eye 07/25/2024 Localized swelling of right upper extremity 07/09/2024 Primary open angle glaucoma (POAG) of right eye, severe stage 07/08/2024 Pseudophakia of left eye 07/08/2024 Unstable angina (CMS/HCC) 02/22/2024 Osteopenia of multiple sites 12/10/2023 Hyperparathyroidism (CMS/HCC) 12/10/2023 VT (ventricular tachycardia) (CMS/HCC) 07/27/2022 LAFB (left anterior fascicular block) 07/27/2022 Atrioventricular block, first degree 07/27/2022 Cardiac sarcoidosis 02/03/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/03/2022 Other cirrhosis of liver (CMS/HCC) 05/24/2021 Sarcoidosis, unspecified 05/24/2021 Hypercalcemia 06/18/2020 ESRD on hemodialysis (CMS/HCC) 05/08/2020 Dependence on hemodialysis (CMS/HCC) 03/29/2020 Large hiatal hernia 03/29/2020 Pneumonia 03/12/2020 GAVE (gastric antral vascular ectasia) 08/27/2019 Congestive heart failure (CMS/HCC) 06/03/2019 Portal hypertension (CMS/HCC) 04/29/2019 Biceps tendinopathy 05/01/2018 Rotator cuff tear, right 05/01/2018 Anemia 09/04/2017 Vitamin D deficiency 09/04/2017 Proteinuria 09/04/2017 Diabetes mellitus (CMS/HCC) 08/30/2017 Hypertension 08/30/2017 Afib (CMS/HCC) 03/31/2017 Hilar lymphadenopathy 03/20/2017 Lung mass 03/20/2017 Gangrene of toe of left foot (CMS/HCC) 12/08/2024 PAD (peripheral artery disease) (CMS/HCC) 12/08/2024 Glaucoma of left eye 07/05/2024 Primary open angle glaucoma (POAG) of left eye, severe stage 06/05/2024 Pulmonary hypertension (CMS/HCC) 02/03/2022 The following portions of the chart were reviewed this encounter and updated as appropriate: Tobacco Allergies Meds Problems Med Hx Surg Hx Fam Hx Subjective Review of Systems All other systems reviewed and are negative. Objective Physical Exam AAOx3, NAD, sitting in wheelchair, daughter present Normal respiratory effort on room air Right great toe with exposed bone, no active cellulitis Left 4th toe amputation site with slough, periwound intact without erythema or induration Assessment/Plan In Summary: Torri Burk is a 74 y.o. year old female who has nonhealing bilateral toe wounds. ABIs today show no flow past the ankles bilaterally. I discussed the likelihood that these wounds will not heal with the patient and her daughter. I recommend hyperbaric oxygen therapy as a remaining effort to heal. I counseled the patient to return with any signs or symptoms of infection and discussed that BKA would be the only remaining option should these wounds become infected. She verbalized understanding and agreement with plan. Will refer for HBO and continue painting all areas with betadine. She has been unable to tolerate eliquis secondary to melena, I recommend she resume 81 mg a spirin. Below is a summary of the diagnoses addressed in today's visit and any associated orders. Problem List Items Addressed This Visit Gangrene of toe of left foot (CMS/HCC) - Primary Relevant Orders Ambulatory referral to Wound Clinic We will see her back for: Follow up in about 4 weeks (around 06/12/2025). documented in this encounter Plan of Treatment Upcoming Encounters Date Type Department Care Team (Late st Contact Info) Description 06/18/2025 9:00 AM EDT Office Visit [facility] [address] [address] [place] [address] Darleen Carson PA [address] [address] [place] [address] 07/11/2025 3:15 PM EDT Office Visit [facility] [address] [place] [address] Ely Aguirre PA [address] [place] [id number] 07/28/2025 8:30 AM EDT Appointment [facility] [address] [place] [address] 07/28/2025 9:20 AM EDT [facility] [address] [place] [address] Lelia Larios MD [address] [place] [address] Pending Results Name Type Priority Associated Diagnoses Date /Time DME Order General Supply Routine 05/15/2025 3:37 PM EDT Scheduled Referrals Name Type Priority Associated Diagnoses Order Schedule Ambulatory referral to Wound Clinic Outpatient Referral Routine Gangrene of toe of left foot (CMS/HCC) 1 Occurrences starting 05/15/2025 until 11/16/2026 documented as of this encounter Visit Diagnoses Diagnosis Gangrene of toe of left foot (CMS/HCC)- Primary documented in this encounter Additional Health Concerns [...] documented as of this encounter Care Teams Preventive Medicine Officer Relationship Specialty Start Date End Date Salomon Juarez MD [address] [place] [address] [address] [place] [address] PCP - General 02/26/21 documented as of this encounter
--- OUTSIDE RECORDS SUMMARY | 2025-06-05 14:32 | XMS_ITS | Encounter Summary ---
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 result is not consistent with the patient's clinical signs and symptoms, glucose testing should be repeated with either an arterial or venous sample on the glucometer or sent to the main labortory for testing. Comment 06/05/2025 2:38 PM EDT [facility] ID Sienna Art [id number] 2:38 PM EDT HEALTH[facility]ARE LAB Device ID [id number] 06/05/2025 2:38 PM EDT [facility]ALTH[facility]ARE [facility] Specimen Type POC Capillary 06/05/2025 2:38 PM EDT [facility]ALTH[facility]ARE LAB Blood Capillary blood specimen / Unknown 06/05/2025 2:36 PM EDT 06/05/2025 2:38 PM EDT us Generic Provider Poct LAB POINT OF CARE TEST DOCKED DEVICE UNSOLICITED RESULTS Final Result HEALTHCARE LAB [address] [place], [place] [id number] documented in this encounter Visit Diagnoses Diagnosis Hemodialysis-associated hypotension- Primary Hypotension of hemodialysis 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) documented in this encounter Administered Medications Inactive Administered Medications - up to 3 most recent administrations Medication Order MAR Action Action Date Dose Rate Site HYDROcodone-acetaminophe n (Jackson) 5-325 MG per tablet 10 mg of hydrocodone 10 mg of hydrocodone, Oral, Once, 1 dose, On Tonja 06/05/25 at 1700, Routine Given 06/05/2025 5:16 PM EDT 10 mg of hydrocodone midodrine (Proamatine) tablet 5 mg 5 mg, Oral, Once, 1 dose, On Tonja 06/05/25 at 1505, STAT Given 06/05/2025 3:10 PM EDT 5 mg documented in this encounter Active and Recently Administered Medications Times are shown in EDT. Scheduled Medication Order 06/03/2025 06/04/2025 06/05/2025 HYDROcodone-acetaminophen (Jackson) 5-325 MG per tablet 10 mg of hydrocodone (COMPLETED) 10 mg of hydrocodone, Oral, Once, 1 dose, On Tonja 06/05/25 at 1700, Routine 1716 (Given - Provid er: Venice Oneil RN) lactated Ringer's infusion 500 mL 500 mL, Intravenous, Once, 1 dose, On Tonja 06/05/25 at 1455, STAT 1717 (Not Given - Pr ovider: Venice Oneil RN - Reason: Patient/family refused) midodrine (Proamatine) tablet 5 mg (COMPLETED) 5 mg, Oral, Once, 1 dose, On Tonja 06/05/25 at 1505, STAT 1510 (Given - Provid er: Anny Oliva RN) documented in this encounter Additional Health Concerns [...] documented as of this encounter Care Teams Criminology Professor Relationship Specialty Start Date End Date Salomon Juarez MD [address] [place] [address] #1 #1 [place] [address] PCP - General 02/26/21 documented as of this encounter
--- NOTE | 2025-06-14 | XR_ITS ---
PROCEDURE INFORMATION: Exam: XR Left Shoulder Exam date and time: 06/14/2025 11:56 AM Age: 74 years old Clinical indication: Pain; Shoulder; Left; Additional info: Shoulder pain TECHNIQUE: Imaging protocol: Radiologic exam of the left shoulder. Views: 2 or more views. COMPARISON: CR XR CHEST PORTABLE 02/08/2025 10:01 PM FINDINGS: Bones/joints: The bones are osteopenic. There is no evidence for acute fracture or dislocation. Glenohumeral joint is preserved. There is narrowing of the acromial humeral space which could indicate chronic rotator cuff tear. Soft tissues: Normal. IMPRESSION: Osteopenia, left shoulder.
--- OUTSIDE RECORDS SUMMARY | 2025-06-14 11:38 | XMS_ITS ---
Author Organization Unknown TREATMENT PLAN Planned Care Start Date Provider Encounter for Check-up [id number] ALVERTO Juarez
--- OUTSIDE RECORDS SUMMARY | 2025-06-14 11:38 | XMS_ITS | Encounter Summary ---
Author Organization [facility] Address [address] [place] [address] Care Team Providers Care Configuration Management Architect Name Role Phone Salomon Juarez MD Primary Care Provider [phone] Amalia Lopez LPN Unavailable Unavailabl e Encounter Details Date Type Department Care Team (Latest Contact Info) Description 04/15/2025 Travel Social History Tobacco Use Types Packs/Day Years [...] any time in the past 12 m [facility], were you homeless or living in a group home (including now)? No 03/21/2025 Utilities Answer [...] AM EST documented as of this encounter Plan of Treatment Upcoming Encounters Date Type Department Care Team (Late st Contact Info) Description 06/18/2025 9:00 AM EDT [facility] [address] 5th Floor [address] [place] [address] Darleen Carson PA [address] [facility] [address] [place] [address] 07/11/2025 3:15 PM EDT Office Visit [facility] Medicine Specialties [address] 2nd [place] [address] Ely Aguirre PA [address] [place] [address] 07/28/2025 8:30 AM EDT Appointment [facility] Radiology [address] [place] [address] 07/28/2025 9:20 AM EDT Office Visit [facility] [address] [place] [address] Lelia Larios MD [address] [facility] [address] [place] [address] documented as of this encounter Visit Diagnoses Not on filedocumented in this encounter Additional Health Concerns Infection [...] documented as of this encounter Care Teams Configuration Management Architect Relationship Specialty Start Date End Date Salomon Juarez MD [address] [place] [address] #1 #1 [place] [address] PCP - General 02/26/21 Amalia Lopez LPN [facility] TCM Nurse 03/18/25 04/30/25 documented as of this encounter
--- OUTSIDE RECORDS SUMMARY | 2025-06-14 11:38 | XMS_ITS | Encounter Summary ---
Author Organization [facility] Address [address] [place] [address] Care Team Providers Care Ad Terminal Makeup Operator Name Role Phone Salomon Juarez MD Primary Care Provider [phone] Selina Alvarez ISOTOPE HYDROLOGIST Unavailable Unavailable Amalia Lopez ISOTOPE HYDROLOGIST Unavailable UnavailJim Jorgensen Unavailable Unavailable Encounter Details Date Type Department Care Team (Late st Contact Info) Description 07/26/2023 Orders Only External Location [address] [place] [phone] Provider, External Social History Tobacco Use Types Packs/Day Years Used Date Smoking Tobacco: Never Passive Smoke Exposure: Never Smokeless Tobacco: Never Alcohol Use Standard Drinks/Week Comments No 0 (1 standard drink = 0.6 oz pure alcohol) Alcoholic Drinks/day: Never Drank Alcohol PHQ-2 Answer Date Recorded Patient Health Questionnaire-2 Score 0 07/14/2023 PHQ-2A Answer Date Recorded Depression Risk 0 11/25/2022 Comments Unknown Sex and Gender Information Value Date Recorded Sex Assigned at Female 12/17/2021 8:47 AM EST Legal Sex Female 6:36 PM EDT Gender Identity Female 12/17/2021 8:47 AM EST Sexual Orientation Straight 12/17/2021 8: 47 AM EST documented as of this encounter Plan of Treatment Upcoming Encounters Date Type Department Care Team (Late Contact Info) Description 06/18/2025 9:00 AM EDT Office Visit [facility] [address] 5th Floor [address] [place] [address] Darleen Carson PA [address] [place] [address] 07/11/2025 3:15 PM EDT Office Visit [facility] Medicine Specialties [address] [place] [address] Ely Aguirre PA [address] [place] [address] 07/28/2025 8:30 AM EDT Appointment [facility]iology [address] [place] [address] 07/28/2025 9:20 AM EDT Office Visit [facility] Medicine Specialties [address] [facility] 2nd [place] [address] Lelia Larios MD [address] [place] [address] documented as of this encounter Procedures Procedure Name Priority Date/Time Associated Diagnosis Comments XR OUTSIDE IMAGES 07/26/2023 11:20 PM EDT documented in this encounter Results * XR OUTSIDE IMAGES (07/26/2023 11:20 PM EDT) Anatomical Region Laterality Modality Radiographic Elidia ging 07/26/2023 11:2 0 PM EDT us External Provider IMG XR PROCEDURES Final Result documented in this encounter Visit Diagnoses Not on filedocumented in this encounter Additional Health Concerns Infection Onset Date Last Indicated Resolved Time Gastrointestinal Rule-Out 09/18/2023 09/18/2023 12:12 PM EST C. difficile Rule-Out 09/18/2023 09/18/20232022 12:12 PM EST MDRO Escalation Plan Comment:MDRO escalation for [facility] 8th floor through 12/31/2024. Patient transferred of MDRO Escalation unit 12/09/2024 12/09/2024 12/12/2024 9:[address] C. difficile Comment:C diff - 12/23/2024 12/23/2024 02/13/2025 6:18 PM E DT Pseudomonas - MDRO Comment:Wound culture collected 02/10/2025 positive for Pseudomonas aeruginosa MDR. This patient will require contact precautions indefinitely. Do not resolve this infection. 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 This patient will require contact precautions indefinitely. Do not resolve this infection. 02/27/2025 02/27/2025 COVID-19 Rule-Out 03/20/2025 03/20/2025 03/20/2025 9:45 PM EDT Assessment Noted Time A fall risk assessment has been complete d for the patient 07/14/2023 9:02 AM EDT A Body Mass Index follow-up plan has been documented for the patient 07/17/2023 9:39 AM EDT documented as of this encounter Care Teams Ad Terminal Makeup Operator Relationship Specialty Start Date End Date Salomon Juarez MD [address] [place] [address] #1 #1 [place] [address] PCP - General 02/26/21 Selina Alvarez LPN TCM Nurse 07/11/24 08/09/24 Amalia Lopez LPN [facility] TCM Nurse 03/18/25 04/30/25 Jim Rico Community Health Worker 03/19/25 04/10/25 documented as of this encounter
--- OUTSIDE RECORDS SUMMARY | 2025-06-14 11:38 | XMS_ITS | Encounter Summary ---
Author Organization [facility] Address [address] [place] [address] Care Team Providers Care Radio Time Sales Supervisor Name Role Phone Salomon Juarez MD Primary Care Provider [phone] Selina Alvarez SANDBLAST OR SHOTBLAST EQUIPMENT TENDER Unavailable Unavailable Amalia Lopez LPN Unavailable UnavailJim Jorgensen Unavailable Unavailable Encounter Details Date Type Department Care Team (Late st Contact Info) Description 05/23/2024 [facility] [address] [place] [address] Carlos Bales MD [address] [place] [address] Primary open angle glaucoma of left eye, moderate stage (Primary Dx); Primary open angle glaucoma of right eye, mild stage Social History Tobacco Use Types Packs/Day Years Used Date Smoking Tobacco: Never Passive Smoke Exposure: Never Smokeless Tobacco: Never Alcohol Use Standard Drinks/Week Comments No 0 (1 standard drink = 0.6 oz pure alcohol) Alcoholic Drinks/day: Never Drank Alcohol PHQ-2 Answer Date Recorded Patient Health Questionnaire-2 Score 0 03/04/2024 PHQ-2A Answer Date Recorded Depression Risk 0 [...] Description 06/18/2025 9:00 AM EDT Office Visit [facility] [address] 5th Floor [address] [place] [address] Darleen Carson PA [address] [place] [address] 07/11/2025 3:15 PM EDT Office Visit [facility] Medicine Specialties [address] [place] [address] Ely Aguirre PA [address] [facility] [address] [place] [address] 07/28/2025 8:30 AM EDT Appointment [facility]iology [address] [place] [address] 07/28/2025 9:20 AM EDT Office Visit [facility] Medicine Specialties [address] 2nd [place] [address] Lelia Larios MD [address] [facility] [address] [place] [address] documented as of this encounter Visit Diagnoses Diagnosis Primary open angle glaucoma of left eye, moderate stage- Primary Primary open angle glaucoma of right eye, mild stage documented in this encounter Additional Health Concerns Infection Onset Date Last Indicated Resolved Time MDRO Escalation Plan Comment:MDRO escalation for [facility] 8th floor through 12/31/2024. Patient transferred of MDRO Escalation unit 12/09/2024 12/09/202411/17 9:14 PM EST C. difficile Comment:C diff - 12/23/2024 12/23/2024 [...] has been complete d for the patient 03/04/2024 8:43 AM EDT A Body Mass Index follow-up plan has been documented for the patient 03/28/2024 1:23 PM EDT documented as of this encounter Care Teams Radio Time Sales Supervisor Relationship Specialty Start Date End Date Salomon Juarez MD [address] [place] [address] #1 #1 [place] [address] PCP - General 02/26/21 Selina Alvarez LPN TCM Nurse 07/11/24 08/09/24 Amalia Lopez LPN [facility] TCM Nurse 03/18/25 04/30/25 Jim Rico Community Health Worker 03/19/25 04/10/25 documented as of this encounter
--- OUTSIDE RECORDS SUMMARY | 2025-06-14 11:38 | XMS_ITS | Encounter Summary ---
Author Organization [facility] Address [address] [place] [address] Care Team Providers Care It Technical Support Specialist Name Role Phone Salomon Juarez MD Primary Care Provider [phone] Selina Alvarez REGISTERED NURSE FIRST ASSISTANT Unavailable Unavailable Amalia Lopez REGISTERED NURSE FIRST ASSISTANT Unavailable UnavailJim Jorgensen Unavailable Unavailable Reason for Visit * Reason Comments Med Refill Encounter Details Date Type Department Care Team (Late st Contact Info) Description 06/11/2024 Refill [facility] Nephrology, [facility] Mineral Metabolism [address] [facility], [address] [place] [address] Roxanna Meade, LAURA [address] [facility] [address] [place] [address] Social History Tobacco Use Types Packs/Day Years [...] Description 06/18/2025 9:00 AM EDT Office Visit [facility] [address] 5[address] [place] [address] Darleen Carson PA [address] [place] [address] 07/11/2025 3:15 PM EDT Office Visit [facility] Medicine Specialties [address] 2[address] [place] [address] Ely Aguirre PA [address] [place] [address] 07/28/2025 8:30 AM EDT Appointment [facility] [address] [place] [address] 07/28/2025 9:20 AM EDT Office Visit [facility] Medicine Specialties [address] [place] [address] Lelia Larios MD [address] [facility] [address] [place] [address] documented as of this encounter Visit Diagnoses [...] documented as of this encounter Care Teams It Technical Support Specialist Relationship Specialty Start Date End Date Salomon Juarez MD [address] [place] [address] #1 [address]1 [place] [address] PCP - General 02/26/21 Selina Alvarez LPN TCM Nurse 07/11/24 08/09/24 Amalia Lopez LPN [facility] T[facility] Nurse 03/18/25 04/30/25 Jim Rico Community Health Worker 03/19/25 04/10/25 documented as of this encounter
--- OUTSIDE RECORDS SUMMARY | 2025-06-14 11:38 | XMS_ITS | Encounter Summary ---
Author Organization [facility] Address [address] [place] [address] Care Team Providers Care Skin Care Instructor Name Role Phone Salomon Juarez MD Primary Care Provider [phone] Selina Alvarez CONFERENCE AND EVENT ORGANISER Unavailable Unavailable Amalia Lopez CONFERENCE AND EVENT ORGANISER Unavailable UnavailJim Jorgensen Unavailable Unavailable Reason for Visit * Reason Comments Med Refill Encounter Details Date Type Department Care Team (Late st Contact Info) Description 04/10/2022 Refill [facility], Bone [facility] Mineral Metabolism [address] [facility], [address] [place] [address] Roxanna Meade, LAURA [address] [facility] [address] [place] [address] Social History Tobacco Use Types Packs/Day Years Used Date Smoking Tobacco: Never Smokeless Tobacco: Never Alcohol Use Standard Drinks/Week Comments No 0 (1 standard drink = 0.6 oz pure alcohol) Alcoholic Drinks/day: Never Drank Alcohol PHQ-2 Answer Date Recorded Patient Health Questionnaire-2 Score 0 01/20/2022 Comments Unknown Sex and Gender Information Value Date Recorded Sex Assigned at Female 12/17/2021 8:47 AM EST Legal Sex Female 6:36 PM EDT Gender Identity Female 12/17/2021 8:47 AM EST Sexual Orientation Straight 12/17/2021 8: 47 AM EST documented as of this encounter Miscellaneous Notes * Telephone Encounter - Kiesha Schuster LPN - 04/11/2022 11:17 AM EDT Dialysis patient documented in this encounter Plan of Treatment Upcoming Encounters Date Type Department Care Team (Late st Contact Info) Description 06/18/2025 9:00 AM EDT Office Visit [facility] [address] 5[address] [place] [address] Darleen Carson PA [address] [place] [address] 07/11/2025 3:15 PM EDT Office Visit [facility] Medicine Specialties [address] 2nd [place] [address] Ely Aguirre PA [address] [place] [address] 07/28/2025 8:30 AM EDT Appointment [facility] [address] [place] [address] 07/28/2025 9:20 AM EDT Office Visit [facility] Medicine Specialties [address] 2nd [place] [address] Lelia Larios MD [address] [facility] [address] [place] [address] documented as of this encounter Visit Diagnoses [...] has been complete d for the patient 02/03/2022 9:30 AM EDT documented as of this encounter Care Teams Skin Care Instructor Relationship Specialty Start Date End Date Salomon Juarez MD [address] [place] [address] #1 #1 [place] [address] PCP - General 02/26/21 Selina Alvarez LPN TCM Nurse 07/11/24 08/09/24 Amalia Lopez LPN [facility] TCM Nurse 03/18/25 04/30/25 Jim Rico Community Health Worker 03/19/25 04/10/25 documented as of this encounter
--- OUTSIDE RECORDS SUMMARY | 2025-06-14 11:38 | XMS_ITS | Encounter Summary ---
Author Organization [facility] Address [address] [place] [address] Care Team Providers Care Professor Of Business Name Role Phone Salomon Juarez MD Primary Care Provider [phone] Selina Alvarez GROOVER AND TURNER Unavailable Unavailable Amalia Lopez GROOVER AND TURNER Unavailable UnavailJim Jorgensen Unavailable Unavailable Encounter Details Date Type Department Care Team (Late st Contact Info) Description 07/27/2023 Orders Only External Location [address] [place] [address] Steven Forman MD [address] [facility] [address] [place] [address] Social History Tobacco Use Types Packs/Day Years [...] Description 06/18/2025 9:00 AM EDT Office Visit [facility] [address] 5th Floor [address] [place] [address] Darleen Carson PA [address] [place] [address] 07/11/2025 3:15 PM EDT Office Visit [facility] Medicine Specialties [address] 2nd [place] [address] Ely Aguirre PA [address] [place] [address] 07/28/2025 8:30 AM EDT Appointment [facility] Radiology [address] [place] [address] 07/28/2025 9:20 AM EDT Office Visit [facility] Medicine Specialties [address] 2nd [place] [address] Lelia Larios MD [address] [facility] [address] [place] [address] documented as of this encounter Procedures Procedure Name Priority Date/Time Associated Diagnosis Comments XR CHEST 1 VIEW 07/27/2023 9:12 AM EDT documented in this encounter Results * XR Chest 1 View (07/27/2023 9:12 AM EDT) Anatomical Region Laterality Modality Chest Digital Radiogra phy 07/27/2023 9:12 AM EDT us Steven Forman MD IMG XR PROCEDURES Final Result documented in [...] documented as of this encounter Care Teams Professor Of Business Relationship Specialty Start Date End Date Salomon Juarez MD [address] [place] [address] #1 #1 [place] [address] PCP - General 02/26/21 Selina Alvarez LPN TCM Nurse 07/11/24 08/09/24 Amalia Lopez LPN [facility] TCM Nurse 03/18/25 04/30/25 Jim Rico Community Health Worker 03/19/25 04/10/25 documented as of this encounter
--- OUTSIDE RECORDS SUMMARY | 2025-06-14 11:38 | XMS_ITS | Encounter Summary ---
Author Organization [facility] Address [address] [place] [address] Care Team Providers Care Emt B Name Role Phone Salomon Juarez MD Primary Care Provider [phone] Selina Alvarez DIRECTOR OF INCOME TAX Unavailable Unavailable Amalia Lopez LPN Unavailable UnavailJim Jorgensen Unavailable Unavailable Encounter Details Date Type Department Care Team (Late st Contact Info) Description 07/25/2023 Orders Only External Location [address] [place] [address] Michael Ogden MD [address] [address] Social History Tobacco Use Types Packs/Day Years [...] Description 06/18/2025 9:00 AM EDT Office Visit [facility] [address] 5[address] Floor [address] [place] [address] Darleen Carson PA [address] [place] [address] 07/11/2025 3:15 PM EDT Office Visit [facility] Medicine Specialties [address] 2nd [place] [address] Ely Aguirre PA [address] [facility] [address] [place] [address] 07/28/2025 8:30 AM EDT Appointment [facility] Radiology [address] [place] [address] 07/28/2025 9:20 AM EDT Office Visit [facility] Medicine [facility]ties [address], 2nd [place] [address] Lelia Larios MD [address] [facility] [address] [place] [address] documented as of this encounter Procedures Procedure Name Priority Date/Time Associated Diagnosis Comments XR OUTSIDE IMAGES 07/25/2023 10:28 AM EDT documented in this encounter Results * XR OUTSIDE IMAGES (07/25/2023 10:28 AM EDT) Anatomical Region Laterality Modality Radiographic Elidia ging 07/25/2023 10:2 8 AM EDT us Michael Ogden MD IMG XR PROCEDURES Final Result documented [...] documented as of this encounter Care Teams Emt B Relationship Specialty Start Date End Date Salomon Juarez MD [address] [place] [address] #1 #1 [place] [address] PCP - General 02/26/21 Selina Alvarez LPN TCM Nurse 07/11/24 08/09/24 Amalia Lopez LPN [facility] TCM Nurse 03/18/25 04/30/25 Jim Rico Community Health Worker 03/19/25 04/10/25 documented as of this encounter
--- OUTSIDE RECORDS SUMMARY | 2025-06-14 11:38 | XMS_ITS | Encounter Summary ---
Author Organization [facility] Address [address] [place] [address] Care Team Providers Care Pugger Helper Name Role Phone Salomon Juarez MD Primary Care Provider [phone] Encounter Details Date Type Department Care Team (Latest Contact Info) Description 05/06/2025 Travel Social History Tobacco Use Types Packs/Day [...] any time in the past 12 m [facility], were you homeless or living in [...] Description 06/18/2025 9:00 AM EDT Office Visit [facility] [address] [facility] 5th Floor [address], [address] [place] [address] Darleen Carson PA [address] [place] [address] 07/11/2025 3:15 PM EDT Office Visit [facility] Medicine Specialties [address], 2nd [place] [address] Ely Aguirre PA [address] [place] [address] 07/28/2025 8:30 AM EDT Appointment [facility] Radiology [address] [place] [address] 07/28/2025 9:20 AM EDT Office Visit [facility] [address], 2nd [place] [address] Lelia Larios MD [address] [place] [address] documented as of this encounter [...] documented as of this encounter Care Teams Pugger Helper Relationship Specialty Start Date End Date Salomon Juarez MD [address] [place] [address] #1 [address]1 [place] [address] PCP - General 02/26/21 documented as of this encounter
--- OUTSIDE RECORDS SUMMARY | 2025-06-14 11:38 | XMS_ITS | Clinical Summary ---
Author Organization [facility] Address [address] [facility] [address] [place] [address] Phone Care Team Providers Care Solar Pool Heating Installer Name Role Phone Jony MONTES, Michael Kamara [phone] [ ] Conditions or Problems Problem Name Problem Code Onset Date Status Entry Date Provider Comment Standard Description Annotate Anemia in CKD (document stage of CKD) D63.1 (ICD-10-CM ) 01/29 Active 01/29 Aleksandra Semaj Anemia in chronic kidney disease Alkaline phosphatase, elevated 944023666 (SNOMED CT) 01/29 Active 01/29 Aleksandra Semaj Alkaline phosphatase above reference range 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 54640462 (SNOMED CT) 01/29 Active 01/29 Aleksandra Semaj 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) 34901485 (SNOMED CT) 01/29 Active 01/29 Aleksandra Semaj Type 2 diabetes mellitus Anemia due to acute blood loss 528050884 (SNOMED CT) 01/29 Active 01/29 Aleksandra Semaj Acute posthemorrhagic anemia Acute on chronic diastolic heart failure 544976861 (SNOMED CT) 01/29 Active 01/29 Aleksandra Semaj Acute on chronic diastolic heart failure Bacteremia 0031440 (SNOMED CT) 01/29 Active 01/29 Aleksandra Semaj Bacteremia Edema, lower extremity R60.0 (ICD-10-CM ) 01/29 Active 01/29 Aleksandra Semaj Localized edema Pulmonary infiltrates 306579323 (SNOMED CT) 01/29 Active 01/29 Aleksandra Semaj Asthmatic pulmonary eosinophilia Blister (nonthermal), right lower leg, subsequent encounter S80.821D (ICD-10-CM ) 01/29 Active 01/29 Aleksandra Cha Blister (nonthermal), right lower leg, subsequent encounter Hypoalbuminemi a 751468444 (SNOMED CT) 01/29 Active 01/29 Aleksandra Cha Hypoalbuminemia Chronic atrial fibrillation 779223921 (SNOMED CT) 01/29 Active 01/29 Aleksandra Cha Chronic atrial fibrillation Medications Medication Instructions Start Date Stop Date Generic Name NDC Provider DIGOXIN 125 MCG TABS Take one by mouth daily DIGOXIN 14417672572 Michael Borges MD DIGOXIN 125 MCG TABS Take one by mouth daily DIGOXIN 61257732343 Denae Buck COREG 25 MG TABS by mouth twice a day CARVEDILOL 21982159826 Denae Buck SENNA S TABS by mouth twice a day/PRN SENNOSIDES-DOCU SATE SODIUM TABS 60391544243 Denae Buck PANTOPRAZOLE SODIUM 40 MG TBEC Take one by mouth daily PANTOPRAZOLE SODIUM 05117458982 Denae Buck LANTUS 100 UNIT/ML SOLN 120 units at bedtime INSULIN GLARGINE 35375573956 Denae Buck NOVOLOG 100 UNIT/ML SUBCUTANEOUS SOLUTION 7 units subcu twice daily INSULIN ASPART 67643668799 Denae Buck FOLIC ACID 1 MG TABS Take one by mouth daily FOLIC ACID 79520268432 Denae Buck DAPSONE 100 MG TABS Take one by mouth daily DAPSONE 18419826148 Denae Buck BUMEX 1 MG ORAL TABLET Take one by mouth daily BUMETANIDE 32341471807 Denae Buck ELIQUIS 5 MG TABS by mouth twice a day APIXABAN 02192300282 Denae Buck ACETAMINOPHEN-CO DEINE #3 TABLET Q4H/PRN ACETAMINOPHEN-C ODEINE TABS 28392020390 Denae Buck Medications Administered No information available. Allergies, Adverse Reactions, Alerts No information available. Results Date Name Value Unit Range Flag Description Office Visit: Room 3 - HFU MEDS REVIEW Done Documenta tion of current medications (procedure) ORALTOBACUSE Never Tobacco smoking status SMOK STATUS Unknown if ever smoked Tobacco smoking status Plan of Care No information available. Procedures No information available. Vital Signs Date Name Value Unit Description BMI (Body Mass Index) 37.59 kg/m2 Bod y Mass Index (Ratio) Body Temperature 98.6 [degF] temperat ure E&M BP Diastolic 66 mm[Hg] blood pressu re, diastolic BP Systolic 134 mm[Hg] blood pressur e, systolic Heart Rate 74 /min pulse rate Height 67 [in_us] height E&M Respiratory Rate 14 /min respirat ory rate E&M Weight Measured 240.0 [lb_av] weight E& M Weight Measured 240.0 [lb_av] weight E& M Immunizations No information available. Advance Directives Directive Description Start Date NO ADVANCED DIRECTIVES AT THIS TIME 2018
--- OUTSIDE RECORDS SUMMARY | 2025-06-14 11:38 | XMS_ITS | Encounter Summary ---
Author Organization [facility] Address [address] [place] [address] Care Team Providers Care Certified Medical Aide Name Role Phone Salomon Juarez MD Primary Care Provider [phone] Amalia Lopez LPN Unavailable Unavailabl e Reason for Visit * Reason Comments Follow-up Encounter Details Date Type Department Care Team (Late st Contact Info) Description 04/22/2025 Patient Outreach [facility] [address] [place] [address] Amalia Lopez LPN [facility] Follow-up Social History Tobacco Use Types Packs/Day Years [...] any time in the past [address] [facility], were you homeless or living [...] encounter Miscellaneous Notes * Progress Notes - Amalia Lopez LPN - 04/22/2025 3:04 PM EDT 04/22/2025 TCM Follow-up Call Patient reached: No Outcome: Called patient for a follow up TCM nurse call. Unable to reach patient. VM left with a call back number provided. Patient did follow with the discharge clinic on 04/16/2025. Action: N/A documented in this encounter Plan of Treatment Upcoming Encounters Date Type Department Care Team (Late st Contact Info) Description 06/18/2025 9:00 AM EDT Office Visit [facility] [address] 5th Floor [address] [place] [address] Darleen Carson PA [address] [facility] [address] [place] [address] 07/11/2025 3:15 PM EDT Office Visit [facility] Medicine Specialties [address] 2nd [place] [address] Ely Aguirre PA [address] [facility] [address] [place] [address] 07/28/2025 8:30 AM EDT Appointment [facility] Radiology [address] [place] [address] 07/28/2025 9:20 AM EDT Office Visit [facility] Medicine Specialties [address], 2nd [place] [address] Lelia Larios MD [address] [facility] [address] [place] [address] documented as of this encounter Visit Diagnoses [...] documented as of this encounter Care Teams Certified Medical Aide Relationship Specialty Start Date End Date Salomon Juarez MD [address] [place] [address] #1 [address]1 [place] [address] PCP - General 02/26/21 Amalia Lopez LPN [facility] TCM Nurse 03/18/25 04/30/25 documented as of this encounter
--- OUTSIDE RECORDS SUMMARY | 2025-06-14 11:38 | XMS_ITS | Encounter Summary ---
Author Organization [facility] Address [address] [place] [address] Care Team Providers Care Plastic Sewer Name Role Phone Salomon Juarez MD Primary Care Provider [phone] Amalia Lopez LPN Unavailable Unavailabl e Encounter Details Date Type Department Care Team (Latest Contact Info) Description 04/16/2025 Travel Social History Tobacco Use Types Packs/Day [...] any time in the past 12 m [facility], were you homeless or living in a [facility] (including now)? No 03/21/2025 Utilities Answer Date Recorded In the past 12 months has th e [place], gas, oil, or water company threatened to [...] Cho CNA documented as of this encounter Plan of Treatment Upcoming Encounters Date Type Department Care Team (Late st Contact Info) Description 06/18/2025 9:00 AM EDT Office Visit [facility] [address] 5th Floor [address], [address] [place] [address] Darleen Carson PA [address] [facility] [address] [place] [address] 07/11/2025 3:15 PM EDT Office Visit [facility] Medicine Specialties [address], 2nd [place] [address] Ely Aguirre PA [address] [facility] [address] [place] [address] 07/28/2025 8:30 AM EDT Appointment [facility] A Radiology [address] [place] [address] 07/28/2025 9:20 AM EDT Office Visit [facility] Medicine Specialties [address], 2nd [place] [address] Lelia Larios MD [address] [facility] [address] [place] [address] documented as of this encounter Visit Diagnoses [...] documented as of this encounter Care Teams Plastic Sewer Relationship Specialty Start Date End Date Salomon Juarez MD [address] [place] [address] #1 #1 [place] [address] PCP - General 02/26/21 Amalia Lopez LPN [facility] TCM Nurse 03/18/25 04/30/25 documented as of this encounter
--- OUTSIDE RECORDS SUMMARY | 2025-06-14 11:38 | XMS_ITS | Encounter Summary ---
Author Organization [facility] Address [address] [place] [address] Care Team Providers Care Tool Coordinator Name Role Phone Salomon Juarez MD Primary Care Provider [phone] Amalia Lopez LPN Unavailable Unavailabl e Reason for Visit * Reason Comments Follow-up Encounter Details Date Type Department Care Team (Late st Contact Info) Description 04/15/2025 Patient Outreach [facility] [address] [place] [address] Selina Alvarez LPN Follow-up Social History Tobacco Use Types Packs/Day [...] any time in the past 12 m [facility], were you homeless or living in a penitentiary (including now)? No 03/21/2025 Utilities Answer Date [...] encounter Miscellaneous Notes * Progress Notes - Selina Alvarez LPN - 04/15/2025 12:38 PM EDT 04/15/2025 TCM Follow-up Call Patient reached: Yes Outcome: Spoke with patients granddaughter for TCM nurse call, patient's grand daughter reports that patient continues to complain with stomach pain, states that she feels like every time she eats she feels like something is sitting at the top of her esophagus. Also, states she has lower abdominal pain. Patients grand daughter offered discharge clinic appointment, and accepted 04/16/2025 @ 11am with Hallie Frausto APRN, since unable to get into see PCP. Patient's grand daughter accepted, and states patient will be attending appointment. Action: Appointment scheduled in discharge clinic for 04/16/2025 @ 11am with Hallie Frausto APRN. Follow up call scheduled for 04/22/2025. documented in this encounter Plan of Treatment Upcoming Encounters Date Type Department Care Team (Late st Contact Info) Description 06/18/2025 9:00 AM EDT Office Visit [facility] [address] 5th [address] [place] [address] Darleen Carson PA [address] [place] [address] 07/11/2025 3:15 PM EDT Office Visit [facility] Medicine Specialties [address] 2nd [place] [address] Ely Aguirre PA [address] [place] [address] 07/28/2025 8:30 AM EDT Appointment P[facility] A Radiology [address] [place] [address] 07/28/2025 9:20 AM EDT Office Visit [facility] Medicine Specialties [address], 2nd [place] [address] Lelia Larios MD [address] [place] [address] documented as of this encounter [...] documented as of this encounter Care Teams Tool Coordinator Relationship Specialty Start Date End Date Salomon Juarez MD [address] [place] [address] #1 [address]1 [place] [address] PCP - General 02/26/21 Amalia Lopez LPN [facility] TCM Nurse 03/18/25 04/30/25 documented as of this encounter
--- OUTSIDE RECORDS SUMMARY | 2025-06-14 11:38 | XMS_ITS | Encounter Summary ---
Author Organization [facility] Address [address] [place] [address] Care Team Providers Care Acid Crane Operator Name Role Phone Salomon Juarez MD Primary Care Provider [phone] Amalia Lopez LPN Unavailable Unavailabl e Reason for Visit * Reason Comments Med Refill Encounter Details Date Type Department Care Team (Late st Contact Info) Description 04/17/2025 Refill [place] [facility] [address] 2nd [place] [address] Lelia Larios MD [address] [place] [address] Gastroesophageal reflux disease with esophagitis without hemorrhage Social History Tobacco Use Types Packs/Day Years [...] any time in the past 12 m [facility], were you homeless or living in a detention (including now)? No 03/21/2025 Utilities Answer Date [...] encounter Miscellaneous Notes * Telephone Encounter - Luca Woods, PharmD - 04/17/2025 12:23 PM EDT Refill request does not meet protocol. Sending to clinic for review. This was called in by Marleen yesterday, but should this be managed through GI clinic? Was sent for 30 days no refill yesterday. * Telephone Encounter - Steven Rivera PharmD - 04/17/2025 11:17 AM EDT Routing refill request to appropriate in-basket for review. documented in this encounter Plan of Treatment Upcoming Encounters Date Type Department Care Team (Late st Contact Info) Description 06/18/2025 9:00 AM EDT Office Visit [facility] [address] 5[address] Floor [address] [place] [address] Darleen Carson PA [address] [facility] [address] [place] [address] 07/11/2025 3:15 PM EDT Office Visit [facility] Medicine Specialties [address] 2nd [place] [address] Ely Aguirre PA [address] [place] [address] 07/28/2025 8:30 AM EDT Appointment [facility] A Radiology [address] [place] [address] 07/28/2025 9:20 AM EDT Office Visit [facility] [address] 2nd [place] [address] Lelia Larios MD [address] [place] [address] documented as of this encounter Visit Diagnoses Diagnosis Gastroesophageal reflux disease with esophagitis without hemorrhage documented in this encounter Additional Health Concerns [...] documented as of this encounter Care Teams Acid Crane Operator Relationship Specialty Start Date End Date Salomon Juarez MD [address] [place] [address] #1 [address]1 [place] [address] PCP - General 02/26/21 Amalia Lopez LPN [facility] TCM Nurse 03/18/25 04/30/25 documented as of this encounter
--- OUTSIDE RECORDS SUMMARY | 2025-06-14 11:38 | XMS_ITS | Encounter Summary ---
Author Organization [facility] Address [address] [place] [address] Care Team Providers Care Drafter (Cad) Electrical Name Role Phone Salomon Juarez MD Primary Care Provider [phone] Selina Alvarez SHEET METAL DUCT INSTALLER HELPER Unavailable Unavailable Amalia Lopez SHEET METAL DUCT INSTALLER HELPER Unavailable UnavailJim Jorgensen Unavailable Unavailable Reason for Visit * Reason Comments Med Refill Encounter Details Date Type Department Care Team (Late st Contact Info) Description 03/08/2022 Refill [facility] [address] 2nd [place] [address] Ajay Mclain MD [address] [place] [address] Social History Tobacco Use Types Packs/Day Years [...] encounter Miscellaneous Notes * Telephone Encounter - Pierre Bedolla, PharmD - 03/09/2022 8:29 AM EDT Per protocol, 1 medication(s), omeprazole, has been approved for 90 day supply with 3 refill(s). The medication refill request(s) has been sent to [facility]. documented in this encounter Plan of Treatment Upcoming Encounters Date Type Department Care Team (Late st Contact Info) Description 06/18/2025 9:00 AM EDT Office Visit [facility] [address] 5[address] Floor [address] [place] [address] Darleen Carson PA [address] [facility] [address] [place] [address] 07/11/2025 3:15 PM EDT Office Visit [facility] Medicine Specialties [address] 2nd [place] [address] Ely Aguirre PA [address] [facility] [address] [place] [address] 07/28/2025 8:30 AM EDT Appointment [facility] Radiology [address] [place] [address] 07/28/2025 9:20 AM EDT Office Visit [facility] Medicine Specialties [address], [address] [place] [address] Lelia Larios MD [address] [facility] [address] [place] [address] documented as of this encounter Visit Diagnoses [...] documented as of this encounter Care Teams Drafter (Cad) Electrical Relationship Specialty Start Date End Date Salomon Juarez MD [address] [place] [address] St [address]1 [address]1 [place] [address] PCP - General 02/26/21 Selina Alvarez LPN TCM Nurse 07/11/24 08/09/24 Amalia Lopez LPN [facility] TCM Nurse 03/18/25 04/30/25 Jim Rico Community Health Worker 03/19/25 04/10/25 documented as of this encounter
--- OUTSIDE RECORDS SUMMARY | 2025-06-14 11:38 | XMS_ITS | Encounter Summary ---
Author Organization [facility] Address [address] [place] [address] Care Team Providers Care Groover And Striper Operator Name Role Phone Salomon Juarez MD Primary Care Provider [phone] Selina Alvarez INFORMATION CLERK CASHIER Unavailable Unavailable Amalia Lopez INFORMATION CLERK CASHIER Unavailable UnavailJim Jorgensen Unavailable Unavailable Reason for Visit * Reason Comments Med Refill Encounter Details Date Type Department Care Team (Late st Contact Info) Description 04/22/2022 Refill [facility] [address] [facility], [address] [place] [address] Roxanna Meade, LAURA [address] [facility] [address] [place] [address] Social History Tobacco Use Types [...] 06/18/2025 9:00 AM EDT Office Visit [facility] [address] 5[address] [place] [address] Darleen Carson PA [address] [place] [address] 07/11/2025 3:15 PM EDT Office Visit [facility] Medicine Specialties [address] 2nd [place] [address] Ely Aguirre PA [address] [place] [address] 07/28/2025 8:30 AM EDT Appointment [facility] Radiology [address] [place] [address] 07/28/2025 9:20 AM EDT Office Visit [facility] Medicine Specialties [address]nd [place] [address] Lelia Larios MD [address] [facility] [address] [place] [address] documented as of this encounter Visit Diagnoses [...] documented as of this encounter Care Teams Groover And Striper Operator Relationship Specialty Start Date End Date Salomon Juarez MD [address] [place] [address] #1 #1 [place] [address] PCP - General 02/26/21 Selina Alvarez LPN TCM Nurse 07/11/24 08/09/24 Amalia Lopez LPN [facility] TCM Nurse 03/18/25 04/30/25 Jim Rico Community Health Worker 03/19/25 04/10/25 documented as of this encounter
--- OUTSIDE RECORDS SUMMARY | 2025-06-14 11:38 | XMS_ITS | Encounter Summary ---
Author Organization [facility] Address [address] [place] [address] Care Team Providers Care Prototype Fabricator Name Role Phone Salomon Juarez MD Primary Care Provider [phone] Reason for Visit * Reason Comments Med Refill Encounter Details Date Type Department Care Team ([facility] st Contact Info) Description 05/12/2025 Refill [facility] [address] [facility], [address] [place] [address] Roxanna Meade PA [address] [facility] [address] [place] [address] Social History Tobacco Use Types [...] any time in the past 12 m [facility], were you homeless or living in a senior living (including now)? No 03/21/2025 Utilities Answer Date [...] encounter Miscellaneous Notes * Telephone Encounter - Roxanna Meade PA - 05/16/2025 9:16 AM EDT Binders refilled by dialysis clinics now documented in this encounter Plan of Treatment Upcoming Encounters Date Type Department Care Team (Late st Contact Info) Description 06/18/2025 9:00 AM EDT Office Visit [facility] [address] 5th Floor [address] [place] [address] Darleen Carson PA [address] [facility] [address] [place] [phone] 07/11/2025 3:15 PM EDT Office Visit [facility] [address] 2nd [place] [phone] Ely Aguirre PA [address] [place] [address] 07/28/2025 8:30 AM EDT Appointment [facility] [address] [place] [address] 07/28/2025 9:20 AM EDT Office Visit [facility] [address] 2[address] [place] [address] Lelia Larios MD [address] [place] [address] documented as of this encounter [...] documented as of this encounter Care Teams Prototype Fabricator Relationship Specialty Start Date End Date Salomon Juarez MD [address] [place] [address] [address] [place] [address] PCP - General 02/26/21 documented as of this encounter
--- OUTSIDE RECORDS SUMMARY | 2025-06-14 11:38 | XMS_ITS | Encounter Summary ---
Author Organization Healthcare Address [address] [place] [address] Care Team Providers Care Rotary Adjuster Name Role Phone Salomon Juarez MD Primary Care Provider [phone] Amalia Lopez LPN Unavailable Unavailabl e Encounter Details Date Type Department Care Team (Late st Contact Info) Description 04/15/2025 Telephone [facility] [address], [address] [place] [address] Lelia Larios MD [address] [place] [address] Social History Tobacco Use Types [...] any time in the past 12 m [facility], were you homeless or living in a care home (including now)? No 03/21/2025 Utilities Answer Date Recorded In the past 12 months has th e [employer], gas, oil, or water company threatened to [...] encounter Miscellaneous Notes * Telephone Encounter - Ashley Harrison - 04/15/2025 10:53 AM EDT Clinical Concern/Question Reason for Call: Patient asking to be seen sooner for abdominal pain? Best contact number: [phone] Optimal time of day to reach caller: ANYTIME Additional comments/information from caller: None Note: Please do not reply to this message. Follow-up communication and further actions as a result of this message need to be communicated with the patient directly, if the patient is not active onMyChart. If the patient is active on MyChart, they will receive notification of the communication/outcome via MyChart. documented in this encounter Plan of Treatment Upcoming Encounters Date Type Department Care Team (Late st Contact Info) Description 06/18/2025 9:00 AM EDT Office Visit [facility] [address] [facility] 5th Floor [address] [place] [address] Darleen Carson, PA [address] [facility] [address] [place] [address] 07/11/2025 3:15 PM EDT Office Visit [facility] Specialties [address], 2[address] [place] [address] Ely Aguirre PA [address] [facility] [address] [place] [address] 07/28/2025 8:30 AM EDT Appointment [facility]iology [address] [place] [address] 07/28/2025 9:20 AM EDT Office Visit [facility] Medicine Specialties [address], [address] [place] [address] Lelia Larios MD [address] [facility] [address] [place] [address] documented as of this encounter [...] documented as of this encounter Care Teams Rotary Adjuster Relationship Specialty Start Date End Date Salomon Juraez MD [address] [place] [address] [address] [place] [address] PCP - General 02/26/21 Amalia Lopez LPN [facility] TCM Nurse 03/18/25 04/30/25 documented as of this encounter
--- OUTSIDE RECORDS SUMMARY | 2025-06-14 11:39 | XMS_ITS | Encounter Summary ---
Author Organization [facility] Address [address] [place] [address] Care Team Providers Care Laborer Cutting Tool Name Role Phone Salomon Juarez MD Primary Care Provider [phone] Encounter Details Date Type Department Care Team (Latest Contact Info) Description 05/15/2025 Travel Social History Tobacco Use Types Packs/Day [...] time in the past 12 m [facility], were you homeless or living in a intermediate (including now)? No 03/21/2025 Utilities Answer Date [...] Krissy Gatica documented as of this encounter Plan of Treatment Upcoming Encounters Date Type Department Care Team (Late st Contact Info) Description 06/18/2025 9:00 AM EDT Office Visit [facility] [address] 5th Floor [address] [place] [address] Darleen Carson PA [address] [facility] [address] [place] [address] 07/11/2025 3:15 PM EDT Office Visit [facility]ties [address], [address] [place] [address] Eyl Aguirre PA [address] [place] [address] 07/28/2025 8:30 AM EDT Appointment [facility] [address] [place] [address] 07/28/2025 9:20 AM EDT Office Visit [facility]ties [address], [address] [place] [address] Lelia Larios MD [address] [place] [address] documented as of this encounter Visit Diagnoses [...] documented as of this encounter Care Teams Laborer Cutting Tool Relationship Specialty Start Date End Date Salomon Juarez MD [address] [place] [address] [address] [place] [address] PCP - General 02/26/21 documented as of this encounter
--- OUTSIDE RECORDS SUMMARY | 2025-06-14 11:39 | XMS_ITS | Encounter Summary ---
Author Organization [facility] Address [address] [place] [address] Care Team Providers Care Retail Marketing Specialist Name Role Phone Salomon Juarez MD Primary Care Provider [phone] Selina Alvarez ROOM CLEANER Unavailable Unavailable Amalia Lopez ROOM CLEANER Unavailable UnavailJim Jorgensen Unavailable Unavailable Reason for Visit * Reason Comments Med Refill Encounter Details Date Type Department Care Team (Late st Contact Info) Description 02/03/2023 Refill [facility] [address] [facility], [address] [place] [address] Roxanna Meade, LAURA [address] [facility] [address] [place] [address] Social History Tobacco Use Types Packs/Day Years Used Date Smoking Tobacco: Never Smokeless Tobacco: Never Alcohol Use Standard Drinks/Week Comments No 0 (1 standard drink = 0.6 oz pure alcohol) Alcoholic Drinks/day: Never Drank Alcohol PHQ-2 Answer Date Recorded Patient Health Questionnaire-2 Score 0 01/20/2022 PHQ-2A Answer Date Recorded Depression Risk 0 11/25/2022 Comments Unknown Sex and Gender Information Value Date Recorded Sex Assigned at Female 12/17/2021 8:47 AM EST Legal Sex Female 6:36 PM EDT Gender Identity Female 12/17/2021 8:47 AM EST Sexual Orientation Straight 12/17/2021 8: 47 AM EST documented as of this encounter Miscellaneous Notes * Telephone Encounter - Kiesha Schuster LPN - 02/06/2023 7:49 AM EDT Refill not appropriate. This is a dialysis patient. documented in this encounter Plan of Treatment Upcoming Encounters Date Type Department Care Team (Late st Contact Info) Description 06/18/2025 9:00 AM EDT Office Visit [facility] [address] 5[address] [place] [address] Darleen Carson PA [address] [facility] [address] [place] [address] 07/11/2025 3:15 PM EDT Office Visit [facility] Medicine Specialties [address] [place] [address] Ely Aguirre PA [address] [facility] [address] [place] [address] 07/28/2025 8:30 AM EDT Appointment [facility] [address] [place] [address] 07/28/2025 9:20 AM EDT Office Visit [facility] Medicine Specialties [address] 2[address] [place] [address] Lelia Larios MD [address] [place] [address] documented as of this encounter Visit Diagnoses [...] has been complete d for the patient 12/13/2022 10:23 AM EST A Body Mass Index follow-up plan has been documented for the patient 12/13/2022 11:07 AM EST documented as of this encounter Care Teams Retail Marketing Specialist Relationship Specialty Start Date End Date Salomon Juarez MD [address] [place] [address] [address] [place] [address] PCP - General 02/26/21 Selina Alvarez LPN TCM Nurse 07/11/24 08/09/24 Amalia Lopez LPN [facility] TCM Nurse 03/18/25 04/30/25 Jim Rico Community Health Worker 03/19/25 04/10/25 documented as of this encounter
--- OUTSIDE RECORDS SUMMARY | 2025-06-14 11:39 | XMS_ITS | Clinical Summary ---
Author Organization [facility] Address [address] [place] [address] Care Team Providers Care Benefit Specialist Name Role Phone Salomon Juarez MD Primary Care Provider [phone] Allergies Active Allergy Reactions Criticality Noted Date Comments Ceftriaxone Shortness of breath High 05/30/2024 Apixaban GI bleeding High 04/16/2025 Medications * This document contains information received from the source organization and may not represent a complete record from that organization. atorvastatin (Lipitor) 20 MG tablet Take 1 tablet by mouth daily. 07/29/20 23 Active cinacalcet (Sensipar) 30 MG tablet Take 1 tablet by mouth 3 times a week. Active predniSONE (Deltasone) 5 MG tabletIndications :Sarcoidosis,Sarc oidosis of lung (CMS/HCC) Take 1 tablet (5 mg) by mouth 1 (one) time each day. 360 tablet 08/22/20 24 025 Active B complex-vitamin C-folic acid (Nephro-Tahir) 0.8 MG tablet Take 1 tablet by mouth in the morning. 30 tablet 11 12/24/19 25 026 Active brimonidine 0.2 % OP ophthalmic solution Administer 1 drop into both eyes in the morning and 1 drop before bedtime. 30 mL 3 01/11/20 25 Active dorzolamide-timol ol (Cosopt) 2-0.5 % ophthalmic solution Administer 1 drop into both eyes in the morning and 1 drop before bedtime. 30 mL 3 01/11/20 25 Active latanoprost (Xalatan) 0.005 % ophthalmic solution Administer 1 drop into both eyes nightly. 10 mL 3 01/11/20 25 Active Methoxy PEG-Epoetin Beta (Mircera) 100 MCG/0.3ML solution prefilled syringe Inject as directed. Given once a week at diaylsis Active calcitriol (Rocaltrol) 0.5 MCG capsule Take 1 capsule by mouth 3 times a week. 03/17/20 25 Active midodrine (Proamatine) 5 MG tablet Take 3 tablets by mouth 3 times a day. 270 tablet 03/17/20 25 Active acetaminophen (Tylenol) 325 MG tablet Take 2 tablets by mouth every 8 hours as needed for pain. Under [place] law, monthly prescriptions (30 days) can be refilled at 25 days and three-month prescriptions (90 days) at 80 days. Please contact the insurance company with questions if refills are denied. 03/17/20 25 Active digoxin (Lanoxin) 125 MCG tablet Take 0.5 tablets by mouth every other day. Next dose 03/18/25 8 tablet 03/18/20 25 Active HYDROcodone-aceta minophen (Friend) 10-325 MG tablet Take 1 tablet by mouth every 6 hours as needed for severe pain. Active ferrous sulfate 324 (65 Fe) MG EC tablet Take 1 tablet by mouth daily with breakfast. Do not crush, chew, or split. Active acyclovir (Zovirax) 5 % cream APPLY TOPICALLY FIVE TIMES DAILY FOR 4 DAYS APPLY TO BLISTER AREA DIRECTED 01/31/20 25 Active traZODone (Desyrel) 50 MG tablet Take 1 tablet by mouth nightly. Active ondansetron ODT (Zofran-ODT) 4 MG disintegrating tabletIndications :Nausea and vomiting, unspecified vomiting type Dissolve 1 tablet on the tongue every 8 hours as needed for nausea or vomiting. 20 tablet 3 04/16/20 25 025 Active omeprazole (PriLOSEC) [address] capsuleIndication s:Gastroesophagea l reflux disease with esophagitis without hemorrhage TAKE 1 CAPSULE BY MOUTH TWICE DAILY BEFORE MEALS, DO NOT CRUSH OR CHEW 180 capsule 04/18/20 25 Active Xifaxan 550 MG tabletIndications :Other cirrhosis of liver (CMS/HCC),Hepatic encephalopathy (CMS/HCC) Take 1 tablet by mouth 2 times a day. 120 tablet 06/05/20 25 025 Active Xifaxan 550 MG tablet Take 1 tablet by mouth 2 times a day. 11/16/19 25 025 Discontin ued(Reord er) Active Problems Problem Noted Date Diagnosed Date Gastroesophageal reflux dise ase with esophagitis without hemorrhage 04/16/2025 Assessment & Plan (04/16/2025 11:40 AM EDT): Recent admission: Last EGD (03/13/2025): with no esophageal or gastric varices, moderate edematous, friable, granular, nodular mucosa in the duodenal bulb; there was [...] her son and plans to fly to [place] this coming Monday -urged to follow up with PCP for on 04/22/25 for further management Orders: omeprazole (PriLOSEC) [address] capsule; Take 1 capsule by mouth 2 times a day. Do not crush or chew. Nausea and vomiting 04/16/2025 Assessment & Plan (04/16/2025 11:40 AM EDT): Orders: ondansetron ODT (Zofran-ODT) 4 MG disintegrating tablet; Dissolve 1 tablet on the tongue every 8 hours as needed for nausea or vomiting. Delayed surgical wound healing of toe amputation stump 04/15/2025 End stage renal failure on dialysis 04/08/2025 Acute on chronic blood loss anemia 03/21/2025 Melena 03/21/2025 Osteomyelitis of left foot, unspecified type Abdominal pain 12/23/2024 Abnormal result of cardiovascular function study 12/23/2024 Acute hyperkalemia 12/23/2024 Acute and chronic respiratory failure with hypox ia 12/23/2024 Acute pain of right shoulder 12/23/2024 Acute pancreatitis 12/23/2024 Anasarca 12/23/2024 Anemia due to blood loss, acute 12/23/2024 Anterior shoulder dislocation 12/23/2024 Ascites of liver 12/23/2024 Asystole 12/23/2024 AV shunt malfunction 12/23/2024 Automatic implantable cardioverter-defibrillator in situ 12/23/2024 Overview (12/23/2024): ST [id number] Bronchospasm, acute 12/23/2024 C. difficile diarrhea 12/23/2024 Confusion 12/23/2024 Cough 12/23/2024 Diarrhea 12/23/2024 Dizziness 12/23/2024 Dyspnea 12/23/2024 E coli bacteremia 12/23/2024 Elevated alkaline phosphatase level 12/23/2024 Hypertensive encephalopathy 12/23/2024 Hypokalemia 12/23/2024 Hypothermia 12/23/2024 Left leg pain 12/23/2024 Leukopenia 12/23/2024 Metabolic acidosis 12/23/2024 Occult blood positive stool 12/23/2024 Palpitations 12/23/2024 Peripheral edema 12/23/2024 Pleural effusion associated with hepatic disorde r 12/23/2024 Protein calorie malnutrition 12/23/2024 Pulmonary artery hypertension 12/23/2024 Respiratory failure 12/23/2024 Third degree AV block 12/23/2024 Upper GI bleeding 12/23/2024 UTI (urinary tract infection) 12/23/2024 Hematoma of right hip, initial encounter 025 Gangrene of toe of left foot 12/08/2024 PAD (peripheral artery disease) 12/08/2024 Combined form of senile cataract of right eye Localized swelling of right upper extremity 06/17 Primary open angle glaucoma (POAG) of right eye, severe stage 07/08/2024 Pseudophakia of left eye 07/08/2024 Glaucoma of left eye 07/05/2024 Primary open angle glaucoma (POAG) of left eye, severe stage 06/05/2024 Unstable angina 02/22/2024 Osteopenia of multiple sites 12/10/2023 Hyperparathyroidism 12/10/2023 VT (ventricular tachycardia) 07/27/2022 LAFB (left anterior fascicular block) 07/27/2022 Atrioventricular block, first degree 07/27/2022 Cardiac sarcoidosis 02/03/2022 Pulmonary sarcoidosis 02/03/2022 Pulmonary hypertension 02/03/2022 Overview (02/03/2022): Added automatically from request for surgery [id number] Other cirrhosis of liver 05/24/2021 Sarcoidosis, unspecified 05/24/2021 Hypercalcemia 06/18/2020 ESRD on hemodialysis 05/08/2020 Dependence on hemodialysis 03/29/2020 Large hiatal hernia 03/29/2020 Pneumonia 03/12/2020 GAVE (gastric antral vascular ectasia) 9 Congestive heart failure 06/03/2019 Portal hypertension 04/29/2019 Biceps tendinopathy 05/01/2018 Rotator cuff tear, right 05/01/2018 Anemia 09/04/2017 Vitamin D deficiency 09/04/2017 Proteinuria 09/04/2017 Diabetes mellitus 08/30/2017 Hypertension 08/30/2017 Afib 03/31/2017 Hilar lymphadenopathy 03/20/2017 Overview (05/18/2022): Localized enlarged lymph nodes Localized enlarged lymph nodes Lung mass 03/20/2017 Overview (05/18/2022): Solitary pulmonary nodule Resolved Problems Problem Noted Date Diagnosed Date Resolved Date Stage 5 chronic kidney disea se on chronic dialysis 02/03/2022 12/10/2023 Acute on chronic congestive heart failure 08/07/2021 08/10/2021 Nausea 04/07/2020 12/10/2023 Acute kidney injury 10/15/2018 12/10/19 24 CKD (chronic kidney disease) stage 3, GFR 30-59 ml/min 09/04/2017 12/10/2023 Renal insufficiency 07/13/2017 12/10/19 24 Encounters * This document contains information received from the source organization and may not represent a complete record from that organization. Date Type Department Care Team Description 06/05/2025 2:32 PM EDT - 06/05/2025 5:24 PM EDT Emergency [facility] [address] [place] [address] Carl Rico MD Katirji, Linda Y, MD Hemodialysis-associate d hypotension (Primary Dx); Stage 5 chronic kidney disease on chronic dialysis ([facility]/HCC) Discharge Disposition: Home or Self Care 06/05/2025 Travel 06/04/2025 Refill [facility] 0 [facility], [address]nd [place] [address] Lelia Larios MD Other cirrhosis of liver (CMS/HCC) (Primary Dx); Hepatic encephalopathy (CMS/HCC) 05/15/2025 1:40 PM EDT Office Visit [facility] [address] [place] [address] 5th [facility] Wing [address], [address] [place] [phone] Darleen Carson PA Gangrene of toe of left foot ([facility]/HCC) (Primary Dx) 05/15/2025 12:09 PM EDT - 05/15/2025 11:59 PM EDT Hospital Encounter [facility] 0 [facility] 5th [facility] [address] [place] [address] PAD (peripheral artery disease) ([facility]) Discharge Disposition: Home or Self Care 05/15/2025 Travel 05/12/2025 Refill [facility] Nephrology, Bone & Mineral Metabolism [address] [facility], [address] [place] [phone] Roxanna Meade PA 05/06/2025 Travel 04/22/2025 Patient Outreach [facility] [address] [facility], [address] [place] [phone] Amalia Lopez LPN Follow-up 04/17/2025 Refill [facility] [address] [facility] [place] [phone] Lelia Larios MD Gastroesophageal reflux disease with esophagitis without hemorrhage 04/16/2025 11:00 AM EDT Office Visit [facility] [address] [place] [phone] Hallie Frausto, COMMUNICATIONS DEPARTMENT HEAD Gastroesophageal reflux disease with esophagitis without hemorrhage (Primary Dx); Nausea and vomiting, unspecified vomiting type 04/16/2025 Travel 04/15/2025 1:20 PM EDT Office Visit [facility] [address] [facility] 5th Floor Wing [address], [address] [place] [address] Darleen Carson PA PAD (peripheral artery disease) ([facility]) (Primary Dx); Delayed surgical wound healing of toe amputation stump ([facility]/HCC) 04/15/2025 Travel 04/15/2025 Patient Outreach POPULATION [address], [address] [place] [address] Selina Alvarez LPN Follow-up 04/15/2025 Telephone [facility] [address], 2nd [place] [address] Lelia Larios MD 04/10/2025 Patient Outreach POPULATION [address] [place], [address] [place] [address] Jim Rico Follow-up 04/09/2025 [facility] [address] [facility] [address] [place] [address] Lelia Larios MD Nausea and vomiting, unspecified vomiting type 04/08/2025 1:00 PM EDT Office Visit [facility] [address] [place] [address] Rosetta Alvarez, LUCAS Chronic osteomyelitis ([facility]) (Primary Dx); Gangrene of toe of left foot ([facility]/HCC); Hospital discharge follow-up 04/08/2025 Travel 04/04/2025 Patient Outreach POPULATION [address], [address] [place] [phone] Jim Rico Follow-up 04/02/2025 Patient Outreach POPULATION [address] [place] [address] Amalia Lopez, ROR ENGINEER TCM Call 04/01/2025 Patient Outreach [place] [address] [place] [address] Jim Rico Follow-up 04/01/2025 Patient Outreach POPULATION [address] [place] [address] Amalia Lopez, ROR ENGINEER TCM Call 03/31/2025 Patient Outreach POPULATION [address] [place] [address] Amalia Lopez, ROR ENGINEER TCM Call 03/31/2025 Patient Outreach POPULATION [address] [place] [address] Amalia Lopez, ROR ENGINEER 03/27/2025 Travel 03/26/2025 Travel 03/25/2025 Travel 03/22/2025 Travel 03/20/2025 8:09 PM EDT - 03/28/2025 3:38 PM EDT Hospital Encounter [facility] [address] [place] [address] King Santiago MD Javed, Faiza, MD Hussain, Muzna, MD Melena (Primary Dx); Declining functional status; Generalized weakness; Acute blood loss anemia; Open wound of toe of left foot; Other chronic osteomyelitis of left foot ([facility]/HCC); ESRD on hemodialysis ([facility]); Confusion Discharge Disposition: Home or Self Care 03/20/2025 Travel 03/19/2025 10:20 AM EDT Ancillary Procedure [facility] [address] [facility] [address] [place] [address] 03/19/2025 10:00 AM EDT Office Visit [facility] [address] [facility] [address] [place] [address] Valentina Garcia, COMMUNICATIONS DEPARTMENT HEAD, DNP Difficult intravenous access (Primary Dx); PIC line (peripherally inserted central catheter) removal 03/19/2025 Patient Outreach [facility] [address] [place] [address] iJm Rico Community Resources 03/19/2025 Travel 03/18/2025 Patient Outreach [facility] [address] [place] [address] Amalia Lopez, KENNEDI TCM Call 03/18/2025 Telephone [facility] [address] [facility] 5th Floor [address] [place] [address] Carlos Santo MD 03/15/2025 Travel 03/14/2025 Travel from Last 3 Months Immunizations Immunization Administration Dates Next Due Hep B, adult 08/27/2019,04/26/2019 HepB-CpG 03/28/2024 Pneumococcal Polysaccharide PPV23 05/12/2016 Family History Medical History Relation Name Comments Heart disease Father kasia mora Hypertension Father kasia mora Family history of hypertension Kidney disease Father kasia mora Vision loss Father kasia mora Cardiac disorder Mother robina mora Diabetes Mother robina mora mothe Heart disease Mother robina mora Hypertension Mother robina mora Family histo ry of hypertension Vision loss Mother robina mora Conversions - Other Other No famil y history of cancer Anesthesia problems Neg Hx Malig Hyperthermia Neg Hx Relation Name Status Comments Father kasia mora Mother robina mora Other Social History Tobacco Use Types Packs/Day Years [...] were you homeless or living in a custodial (including now)? No 03/21/2025 Utilities Answer Date [...] Orientation Straight 12/17/2021 8: 47 AM EST Last Filed Vital Signs Vital Sign Reading [...] Mass Index 28.72 06/05/2025 2:54 PM EDT Plan of Treatment Upcoming Encounters Date Type Department Care Team (Late st Contact Info) Description 06/18/2025 9:00 AM EDT Office Visit [facility] [address] 5th Floor [address] [place] [address] Darleen Carson PA [address] [place] [address] 07/11/2025 3:15 PM EDT Office Visit [facility] [address], [address]nd [place] [address] Ely Aguirre PA [address] [place] [address] 07/28/2025 8:30 AM EDT Appointment [facility]iology [address] [place] [address] 07/28/2025 9:20 AM EDT Office Visit [facility] [address], [address] [place] [address] Lelia Larios MD [address] [place] [address] Health Maintenance Due Date Last Done Comments [facility]-Medicare Annual Wellness (AWV) 1950 [facility]-Infant/Child/Adol SDOH Screenings 1950 [id number] Vaccine (#1) 1957 Diabetes: Dental Exam 1962 [facility]-DTaP,Tdap,and Td Vaccines (1 - Tdap) 1971 [facility]-Hepatitis A Vaccines (1 of 2 - Risk 2-dose series) 1971 [facility]-Zoster Vaccines (1 of 2) 1971 CT Colonography 1997 Colonoscopy 1997 FIT-DNA 1997 FIT 1997 FOBT 1997 Sigmoidoscopy 1997 [facility]-Colorectal Cancer Screening 1997 [facility]-Breast Cancer Screening 2002 [facility]-RSV Vaccine: 60+ Years or (1 - Risk 60-74 years 1-dose series) 2012 [facility]-Pneumococcal Vaccine: 50+ Years (2 of 2 - PCV) 05/12/2017 05/12/2016 [facility]-Influenza Vaccine (#1) 2025 [facility]-Diabetes: Hemoglobin A1C 08/13/202510/2024, 12/08/2024, 08/08/2021, Additional history exists [facility]- SDOH Screenings 09/20/2025 [facility]-Adult SDOH Screenings 09/20/2025 03/21/2025 [facility]-Bone Density Scan 11/30/2025 11/30/2023, 024 [facility]-Depression Screening 01/13/2026 025, 12/30/2024, 11/25/2022 [facility]-Hepatitis C Screening Completed 2024, 03/10/2025, 02/11/2025, Additional history exists [facility]-Obesity Intervention Completed 025, 04/16/2025, 04/15/2025, Additional history exists HPV Vaccines Aged Out No longer eligi ble based on patient's age to complete this topic [facility]-HIB Vaccines Aged Out No longer e ligible based on patient's age to complete this topic [facility]-IPV Vaccines Aged Out No longer e ligible based on patient's age to complete this topic [facility]-Rotavirus Vaccines Aged Out No lo nger eligible based on patient's age to complete this topic Medical Devices Implanted Type Area Insurance Claims Analyst Device Identifier Shelf Expiration Date Model / Serial / Lot 2087tc Tendril Sts [id number] Lead Heart 2087TC TENDRIL STS / [id number] / [id number] Durata Sj4 [id number] Lead 7122Q DURATA SJ4 / [id number] / [id number] Ellipse [id number] Implanted:04/2019 (Quantity not on file) Pacemaker Chest 2411-36Q ELLIPSE / [id number] / Stent Graft Iliac [id number] Viabahnbx - [id number] Implanted:Qty: 1 on 05/18/2022 by Georges Juarez RN at [id number] 4 03/10/2023 [id number] / [id number] / [id number] Procedures Procedure Name Priority Date/Time Associated Diagnosis Comments BLOOD GAS PANEL, VENOUS STAT 06/05/2025 4:05 PM EDT TYPE AND SCREEN STAT 06/05/2025 4:05 PM EDT CBC WITH AUTO DIFFERENTIAL STAT 06/05/2025 4:05 PM EDT PHOSPHORUS, PLASMA STAT 06/05/2025 4: 05 PM EDT MAGNESIUM, PLASMA STAT 06/05/2025 4:0 5 PM EDT COMPREHENSIVE METABOLIC PANEL, PLASMA STAT 06/05/2025 4:05 PM EDT XR CHEST 1 VIEW STAT 06/05/2025 3:20 PM EDT ECG ADULT STAT 06/05/2025 3:04 PM EDT POCT GLUCOSE METER UNSOLICITED RESULTS Routine 06/05/2025 2:36 PM EDT VAS ANKLE BRACHIAL INDEX - VENU ONLY Routine 05/15/2025 1:11 PM EDT PAD (peripheral artery disease) ([facility]) MT DEBRIDEMENT, SKIN, SUB-Q TISSUE,=<20 SQ CM Routine 04/15/2025 1:20 PM EDT Delayed surgical wound healing of toe amputation stump ([facility]) POCT GLUCOSE METER UNSOLICITED RESULTS Routine 03/28/2025 7:55 AM EDT POCT GLUCOSE METER UNSOLICITED RESULTS Routine 03/27/2025 8:57 PM EDT POCT GLUCOSE METER UNSOLICITED RESULTS Routine 03/27/2025 4:53 PM EDT POCT GLUCOSE METER UNSOLICITED RESULTS Routine 03/27/2025 1:22 PM EDT ECG ADULT Routine 03/27/2025 10:04 AM EDT VITAMIN B12, SERUM Routine 03/27/2025 9: 43 AM EDT RENAL FUNCTION PANEL, PLASMA Routine 03/27/2025 9:43 AM EDT HEMOGLOBIN AND HEMATOCRIT, BLOOD Routine 03/27/2025 9:43 AM EDT MAGNESIUM, PLASMA Routine 03/27/2025 9:4 3 AM EDT HEMODIALYSIS INPATIENT Routine 9:21 AM EDT ESRD on hemodialysis ([facility]) POCT GLUCOSE METER UNSOLICITED RESULTS Routine 03/27/2025 8:04 AM EDT POCT GLUCOSE METER UNSOLICITED RESULTS Routine 03/26/2025 8:[address] HEAD WO IV CONTRAST Routine 5:58 PM EDT POCT GLUCOSE METER UNSOLICITED RESULTS Routine 03/26/2025 5:21 PM EDT IR TUNNELED CENTRAL VENOUS CATHETER PLACEMENT 5+ YEARS Routine 03/26/2025 10:13 AM EDT POCT GLUCOSE METER UNSOLICITED RESULTS Routine 03/26/2025 6:18 AM EDT POCT GLUCOSE METER UNSOLICITED RESULTS Routine 03/26/2025 3:54 AM EDT POCT GLUCOSE METER UNSOLICITED RESULTS Routine 03/26/2025 12:27 AM EDT POCT GLUCOSE METER UNSOLICITED RESULTS Routine 03/25/2025 8:16 PM EDT POCT GLUCOSE METER UNSOLICITED RESULTS Routine 03/25/2025 5:09 PM EDT POCT GLUCOSE METER UNSOLICITED RESULTS Routine 03/25/2025 3:56 PM EDT POCT GLUCOSE METER UNSOLICITED RESULTS Routine 03/25/2025 3:29 PM EDT POCT GLUCOSE METER UNSOLICITED RESULTS Routine 03/25/2025 3:03 PM EDT TRANSFUSE RED BLOOD CELLS STAT 03/25/2025 2:46 PM EDT TRANSFUSE RED BLOOD CELLS STAT 03/25/2025 2:08 PM EDT PREPARE RBC STAT 03/25/2025 1:46 PM EDT POCT GLUCOSE METER UNSOLICITED RESULTS Routine 03/25/2025 1:29 PM EDT TYPE AND SCREEN Routine 03/25/2025 12:50 PM EDT POCT GLUCOSE METER UNSOLICITED RESULTS Routine 03/25/2025 12:37 PM EDT POCT GLUCOSE METER UNSOLICITED RESULTS Routine 03/25/2025 11:52 AM EDT FREE T4, PLASMA Routine 03/25/2025 11:10 AM EDT TSH REFLEX FT4 Add-On 03/25/2025 11:10 AM EDT EXTRA TUBE LAVENDER TOP Routine 03/25/2025 11:10 AM EDT EXTRA TUBE LIGHT GREEN TOP Routine 03/25/2025 11:10 AM EDT EXTRA TUBES Routine 03/25/2025 11:10 AM EDT PHOSPHORUS, PLASMA Routine 03/25/2025 11 :10 AM EDT CBC W/O DIFFERENTIAL Routine 03/25/2025 11:10 AM EDT COMPREHENSIVE METABOLIC PANEL, PLASMA Routine 03/25/2025 11:10 AM EDT MAGNESIUM, PLASMA Routine 03/25/2025 11: 10 AM EDT HEMODIALYSIS INPATIENT Routine 11:02 AM EDT ESRD on hemodialysis ([facility]) POCT GLUCOSE METER UNSOLICITED RESULTS Routine 03/25/2025 6:01 AM EDT POCT GLUCOSE METER UNSOLICITED RESULTS Routine 03/24/2025 11:50 PM EDT POCT GLUCOSE METER UNSOLICITED RESULTS Routine 03/24/2025 8:08 PM EDT POCT GLUCOSE METER UNSOLICITED RESULTS Routine 03/24/2025 5:19 PM EDT POCT GLUCOSE METER UNSOLICITED RESULTS Routine 03/24/2025 12:36 PM EDT POCT GLUCOSE METER UNSOLICITED RESULTS Routine 03/24/2025 7:46 AM EDT POCT GLUCOSE METER UNSOLICITED RESULTS Routine 03/23/2025 8:18 PM EDT POCT GLUCOSE METER UNSOLICITED RESULTS Routine 03/23/2025 4:26 PM EDT INSERT PERIPHERAL IV STAT 03/23/2025 1:15 PM EDT COMPREHENSIVE METABOLIC PANEL, PLASMA Routine 03/23/2025 1:10 PM EDT CBC WITH AUTO DIFFERENTIAL Routine 03/23/2025 1:10 PM EDT POCT GLUCOSE METER UNSOLICITED RESULTS Routine 03/23/2025 11:57 AM EDT POCT GLUCOSE METER UNSOLICITED RESULTS Routine 03/23/2025 7:56 AM EDT POCT GLUCOSE METER UNSOLICITED RESULTS Routine 03/22/2025 8:50 PM EDT POCT GLUCOSE METER UNSOLICITED RESULTS Routine 03/22/2025 6:08 PM EDT POCT GLUCOSE METER UNSOLICITED RESULTS Routine 03/22/2025 5:43 PM EDT POCT GLUCOSE METER UNSOLICITED RESULTS Routine 03/22/2025 5:20 PM EDT TRANSFUSE RED BLOOD CELLS Routine 03/22/2025 2:44 PM EDT PREPARE RBC Routine 03/22/2025 2:13 PM EDT ACUTE HEPATITIS PANEL Routine 03/22/2025 12:55 PM EDT ESRD on hemodialysis (CMS/HCC) HEPATITIS B SURFACE ANTIBODY, QUANTITATIVE Routine 03/22/2025 12:55 PM EDT ESRD on hemodialysis (CMS/HCC) CBC WITH AUTO DIFFERENTIAL Routine 03/22/2025 12:55 PM EDT HEMODIALYSIS INPATIENT Routine 12:24 PM EDT ESRD on hemodialysis ([facility]) POCT GLUCOSE METER UNSOLICITED RESULTS Routine 03/22/2025 11:50 AM EDT POCT GLUCOSE METER UNSOLICITED RESULTS Routine 03/22/2025 7:47 AM EDT POCT GLUCOSE METER UNSOLICITED RESULTS Routine 03/21/2025 10:01 PM EDT POCT GLUCOSE METER UNSOLICITED RESULTS Routine 03/21/2025 4:52 PM EDT POCT GLUCOSE METER UNSOLICITED RESULTS Routine 03/21/2025 11:59 AM EDT POCT GLUCOSE METER UNSOLICITED RESULTS Routine 03/21/2025 7:58 AM EDT POCT GLUCOSE METER UNSOLICITED RESULTS Routine 03/21/2025 5:56 AM EDT EXTRA TUBE LIGHT GREEN TOP Routine 03/21/2025 2:01 AM EDT EXTRA TUBES Routine 03/21/2025 2:01 AM EDT HEMOGLOBIN AND HEMATOCRIT, BLOOD Routine 03/21/2025 2:01 AM EDT WOUND OSTOMY EVAL AND TREAT Routine 03/21/2025 12:22 AM EDT TRANSFUSE RED BLOOD CELLS STAT 03/20/2025 10:25 PM EDT PREPARE RBC STAT 03/20/2025 10:01 PM EDT BLOOD CULTURE (AEROBIC/ANAEROBIC SET) STAT 03/20/2025 9:50 PM EDT XR FOOT RIGHT 3+ VIEWS STAT 9:32 PM EDT XR FOOT LEFT 3+ VIEWS STAT 03/20/2025 9:32 PM EDT SARS COV2 COVID 19/INFLUENZA A, B STAT 03/20/2025 9:17 PM EDT ECG ADULT STAT 03/20/2025 9:10 PM EDT BETA HYDROXYBUTYRIC ACID STAT 03/20/2025 9:05 PM EDT BLOOD GAS PANEL, VENOUS STAT 03/20/2025 9:05 PM EDT MAGNESIUM, PLASMA STAT 03/20/2025 9:0 5 PM EDT TYPE AND SCREEN STAT 03/20/2025 9:05 PM EDT SEDIMENTATION RATE, AUTOMATED STAT 03/20/2025 9:05 PM EDT PROCALCITONIN, PLASMA STAT 03/20/2025 9:05 PM EDT C-REACTIVE PROTEIN, PLASMA STAT 03/20/2025 9:05 PM EDT COMPREHENSIVE METABOLIC PANEL, PLASMA STAT 03/20/2025 9:05 PM EDT CBC WITH AUTO DIFFERENTIAL STAT 03/20/2025 9:05 PM EDT POCT GLUCOSE METER UNSOLICITED RESULTS Routine 03/20/2025 8:20 PM EDT 70092 IR REMOVAL TUNNELED CVC CATH W/O SUBQ PORT OR PUMP Today 03/19/2025 10:15 AM EDT Difficult intravenous access POCT GLUCOSE METER UNSOLICITED RESULTS Routine 03/17/2025 4:35 PM EDT POCT GLUCOSE METER UNSOLICITED RESULTS Routine 03/17/2025 11:57 AM EDT POCT GLUCOSE METER UNSOLICITED RESULTS Routine 03/17/2025 7:42 AM EDT TRANSFUSE RED BLOOD CELLS Routine 03/17/2025 5:31 AM EDT PREPARE RBC Routine 03/17/2025 4:52 AM EDT CBC W/O DIFFERENTIAL STAT 03/17/2025 4:27 AM EDT TYPE AND SCREEN Routine 03/17/2025 4:27 AM EDT CBC W/O DIFFERENTIAL Routine 03/17/2025 3:33 AM EDT POCT GLUCOSE METER UNSOLICITED RESULTS Routine 03/16/2025 8:41 PM EDT POCT GLUCOSE METER UNSOLICITED RESULTS Routine 03/16/2025 4:18 PM EDT POCT GLUCOSE METER UNSOLICITED RESULTS Routine 03/16/2025 12:36 PM EDT POCT GLUCOSE METER UNSOLICITED RESULTS Routine 03/16/2025 10:56 AM EDT CBC W/O DIFFERENTIAL Routine 03/16/2025 9:32 AM EDT POCT GLUCOSE METER UNSOLICITED RESULTS Routine 03/16/2025 7:43 AM EDT PHOSPHORUS, PLASMA Routine 03/16/2025 4: 41 AM EDT POCT GLUCOSE METER UNSOLICITED RESULTS Routine 03/15/2025 8:27 PM EDT POCT GLUCOSE METER UNSOLICITED RESULTS Routine 03/15/2025 6:05 PM EDT HEMODIALYSIS INPATIENT Routine 2:11 PM EDT ESRD on hemodialysis ([facility]) TRANSFUSE RED BLOOD CELLS Routine 03/15/2025 1:33 PM EDT PREPARE RBC Routine 03/15/2025 12:30 PM EDT POCT GLUCOSE METER UNSOLICITED RESULTS Routine 03/15/2025 12:27 PM EDT CBC WITH AUTO DIFFERENTIAL Routine 03/15/2025 10:53 AM EDT MAGNESIUM, PLASMA Routine 03/15/2025 10: 53 AM EDT COMPREHENSIVE METABOLIC PANEL, PLASMA Routine 03/15/2025 10:53 AM EDT POCT GLUCOSE METER UNSOLICITED RESULTS Routine 03/15/2025 8:11 AM EDT POCT GLUCOSE METER UNSOLICITED RESULTS Routine 03/14/2025 8:02 PM EDT POCT GLUCOSE METER UNSOLICITED RESULTS Routine 03/14/2025 4:36 PM EDT POCT GLUCOSE METER UNSOLICITED RESULTS Routine 03/14/2025 12:52 PM EDT TRANSFUSE RED BLOOD CELLS Routine 03/14/2025 11:23 AM EDT PREPARE RBC Routine 03/14/2025 10:12 AM EDT PHOSPHORUS, PLASMA Timed 03/14/2025 8: 50 AM EDT MAGNESIUM, PLASMA Timed 03/14/2025 8:5 0 AM EDT CBC WITH AUTO DIFFERENTIAL Timed 03/14/2025 8:50 AM EDT BASIC METABOLIC PANEL, PLASMA Timed 03/14/2025 8:50 AM EDT DIGOXIN LEVEL Timed 03/14/2025 8:50 AM EDT VANCOMYCIN, RANDOM, PLASMA Routine 03/14/2025 8:50 AM EDT HEMODIALYSIS INPATIENT Routine 8:22 AM EDT ESRD on hemodialysis (CMS/HCC) POCT GLUCOSE METER UNSOLICITED RESULTS Routine 03/14/2025 8:04 AM EDT POCT GLUCOSE METER UNSOLICITED RESULTS Routine 03/14/2025 3:18 AM EDT HEMOGLOBIN A1C Add-On 02/13/2025 9:59 AM EDT DEXA BONE DENSITY AXIAL SKELETON W VFA Routine 11/30/2023 2:10 PM EST Hypercalcemia Hyperparathyroidism (CMS/HCC) from Last 3 Months or Most Recently Relevant to Health Maintenance Results * (ABNORMAL) CBC w/diff (06/05/2025 4:05 PM EDT) Only the most recent of6 resultswithin the time period is included. WBC Count 4.94 3.70 - 10.30 10*3/uL LAB HEMATOLOGY METHOD 06/05/2025 4:22 PM EDT [facility] RBC Count 3.97 3.90 - 5.20 10*6/uL LAB HEMATOLOGY METHOD 06/05/2025 4:22 PM EDT [facility] HGB 10.9(L) 11.2 - 15.7 g/dL LAB HEMATOLOGY METHOD 06/05/2025 4:22 PM EDT [facility] HCT 34.5 34.0 - 45.0 % LAB HEMATOLOGY METHOD 06/05/2025 4:22 PM EDT [facility] Platelet Count 190 155 - 369 10*3/uL LAB HEMATOLOGY METHOD 06/05/2025 4:22 PM EDT [facility] MCV 87 79 - 98 fL LAB HEMATOLOGY METHOD 06/05/2025 4:22 PM EDT [facility] MCH 27.5 26.0 - 32.0 pg LAB HEMATOLOGY METHOD 06/05/2025 4:22 PM EDT [facility] MCHC 31.6 30.7 - 35.5 g/dL LAB HEMATOLOGY METHOD 06/05/2025 4:22 PM EDT [facility] RDW 17.1(H) 11.5 - 14.5 % LAB HEMATOLOGY METHOD 06/05/2025 4:22 PM EDT [facility] MPV 10.5 8.8 - 12.5 fL LAB HEMATOLOGY METHOD 06/05/2025 4:22 PM EDT [facility] nRBC 0.0 <=0.0 per 100 WBCs LAB HEMATOLOGY METHOD 06/05/2025 4:22 PM EDT [facility] Differential Type Automated LAB HEMATOLOGY METHOD 06/05/2025 4:22 PM EDT [facility] Neutrophils % 65 % LAB HEMATOLOGY METHOD 06/05/2025 4:22 PM EDT [facility] Lymphocytes % 17 % LAB HEMATOLOGY METHOD 06/05/2025 4:22 PM EDT [facility] Monocytes % 17 % LAB HEMATOLOGY METHOD 06/05/2025 4:22 PM EDT [facility] Eosinophils % 1 % LAB HEMATOLOGY METHOD 06/05/2025 4:22 PM EDT [facility] Basophils % 0 % LAB HEMATOLOGY METHOD 06/05/2025 4:22 PM EDT [facility] Immature Granulocytes % 0 % LAB HEMATOLOGY METHOD 06/05/2025 4:22 PM EDT [facility] Neutrophils Absolute 3.21 1.60 - 6.10 10*3/uL LAB HEMATOLOGY METHOD 06/05/2025 4:22 PM EDT [facility] Lymphocytes Absolute 0.83(L) 1.20 - 3.90 10*3/uL LAB HEMATOLOGY METHOD 06/05/2025 4:22 PM EDT [facility] Monocytes Absolute 0.83 0.30 - 0.90 10*3/uL LAB HEMATOLOGY METHOD 06/05/2025 4:22 PM EDT [facility] Eosinophils Absolute 0.03 0.00 - 0.50 10*3/uL LAB HEMATOLOGY METHOD 06/05/2025 4:22 PM EDT [facility] Basophils Absolute 0.02 0.00 - 0.10 10*3/uL LAB HEMATOLOGY METHOD 06/05/2025 4:22 PM EDT [facility] Immature Granulocytes Absolute 0.02 0.00 - 0.06 10*3/uL LAB HEMATOLOGY METHOD 06/05/2025 4:22 PM EDT [facility] Blood Venous blood specimen / Unknown Venipuncture / Unknown 06/05/2025 4:05 PM EDT 06/05/2025 4:17 PM EDT Narrative [facility] - 06/05/2025 4:22 PM EDT Therapeutic decision making should be based on absolute values, rather than percentages. us Carl Rico MD LAB BLOOD ORDERABLES Final Re sult Performing Organization Address City/[facility]/ZIP Co de Phone Number [facility] [address] [place] [address] * Type and screen (06/05/2025 4:05 PM EDT) Only the most recent of4 resultswithin the time period is included. ABO/Rh B Positive 06/05/2025 2:50 PM EDT BLOOD BANK Antibody Screen Negative 06/05/2025 2:50 PM EDT BLO[facility] B[facility] Specimen Expiration 06/08/2025 23:59 06/05/2025 2:50 PM EDT BLO[facility] Blood Venous blood specimen / Unknown Venipuncture / Unknown 06/05/2025 4:05 PM EDT 06/05/2025 4:14 PM EDT us Carl Rico MD LAB BLOOD BANK TEST ORDERABLE S Final Result Performing Organization Address [facility] Phone Number BLOOD BANK [address] [place] [address], [place] * (ABNORMAL) Phosphorus (06/05/2025 4:05 PM EDT) Only the most recent of4 resultswithin the time period is included. Phosphorus, Plasma 1.8(L) 2.5 - 4.5 mg/dL 06/05/2025 4:41 PM EDT [facility] Blood Venous blood specimen / Unknown Venipuncture / Unknown 06/05/2025 4:05 PM EDT 06/05/2025 4:17 PM EDT us Carl Rico MD LAB BLOOD ORDERABLES Final Re sult Performing Organization Address [facility] Co de Phone Number [facility] [address] [place] [address] * Magnesium (06/05/2025 4:05 PM EDT) Only the most recent of6 resultswithin the time period is included. Pathologist [facility] Magnesium, Plasma 1.9 1.9 - 2.4 mg/dL 06/05/2025 4:41 PM EDT [facility] Blood Venous blood specimen / Unknown Venipuncture / Unknown 06/05/2025 4:05 PM EDT 06/05/2025 4:17 PM EDT us Carl Rico MD LAB BLOOD ORDERABLES Final Re sult [facility] [address] [place] [address] * (ABNORMAL) Blood gas panel, venous (06/05/2025 4:05 PM EDT) Only the most recent of2 resultswithin the time period is included. Pathologist [facility] pH, Venous 7.36 7.32 - 7.43 LAB HEMATOLOGY METHOD 06/05/2025 4:22 PM EDT [facility] pCO2, Venous 61(HH) 37 - 52 mmHg LAB HEMATOLOGY METHOD 06/05/2025 4:22 PM EDT [facility] pO2, Venous 20(L) 25 - 40 mmHg LAB HEMATOLOGY METHOD 06/05/2025 4:22 PM EDT [facility] SO2, Measured, Venous 24(L) 65 - 80 % LAB HEMATOLOGY METHOD 06/05/2025 4:22 PM EDT [facility] Base Excess, Venous 7.8(H) -2.0 - 3.0 mmol/L LAB HEMATOLOGY METHOD 06/05/2025 4:22 PM EDT [facility] Bicarbonate, Calculated, Venous 35(H) 22 - 26 mmol/L LAB HEMATOLOGY METHOD 06/05/2025 4:22 PM EDT [facility] Hematocrit, Whole Blood 32.9(L) 34.0 - 45.0 % LAB HEMATOLOGY METHOD 06/05/2025 4:22 PM EDT [facility] Sodium, Whole Blood 136 136 - 145 mmol/L LAB HEMATOLOGY METHOD 06/05/2025 4:22 PM EDT [facility] Potassium, Whole Blood 3.1(L) 3.6 - 4.9 mmol/L LAB HEMATOLOGY METHOD 06/05/2025 4:22 PM EDT [facility] Chloride, Whole Blood 95(L) 97 - 107 mmol/L LAB HEMATOLOGY METHOD 06/05/2025 4:22 PM EDT [facility] Glucose, Whole Blood 124(H) 74 - 99 mg/dL LAB HEMATOLOGY METHOD 06/05/2025 4:22 PM EDT [facility] Lactate, Venous, Whole Blood 2.8(H) 0.5 - 2.2 mmol/L LAB HEMATOLOGY METHOD 06/05/2025 4:22 PM EDT [facility] Ionized Calcium, Whole Blood 4.1(L) 4.6 - 5.1 mg/dL LAB HEMATOLOGY METHOD 06/05/2025 4:22 PM EDT [facility] Blood Venous blood specimen / Unknown Venipuncture / Unknown 06/05/2025 4:05 PM EDT 06/05/2025 4:19 PM EDT us Carl Rico MD LAB BLOOD ORDERABLES Final Re sult [facility] [address] [place] [address] * (ABNORMAL) CMP (06/05/2025 4:05 PM EDT) Only the most recent of5 resultswithin the time period is included. Glucose, Plasma 131(H) 74 - 99 mg/dL 06/05/2025 4:41 PM EDT [facility] BUN, Plasma 5(L) 8 - 23 mg/dL 06/05/2025 4:41 PM EDT [facility] Creatinine, Plasma 2.56(H) 0.60 - 1.10 mg/dL 06/05/2025 4:41 PM EDT [facility] BUN/Creatinine Ratio 2 06/05/2025 4:41 PM EDT [facility] Sodium, Plasma 136 136 - 145 mmol/L 06/05/2025 4:41 PM EDT [facility] Potassium, Plasma 3.4(L) 3.6 - 4.9 mmol/L 06/05/2025 4:41 PM EDT [facility] Chloride, Plasma 96(L) 97 - 107 mmol/L 06/05/2025 4:41 PM EDT [facility] CO2, Plasma 29 22 - 29 mmol/L 06/05/2025 4:41 PM EDT [facility] Anion Gap 11 6 - 16 mmol/L 06/05/2025 4:41 PM EDT [facility] Total Calcium, Plasma 8.0(L) 8.9 - 10.2 mg/dL 06/05/2025 4:41 PM EDT [facility] Total Protein 5.2(L) 6.3 - 7.9 g/dL 06/05/2025 4:41 PM EDT [facility] Albumin, Plasma 2.6(L) 3.5 - 5.2 g/dL 06/05/2025 4:41 PM EDT [facility] AST, Plasma 23 10 - 35 U/L 06/05/2025 4:41 PM EDT [facility] ALT, Plasma 13 10 - 35 U/L 06/05/2025 4:41 PM EDT [facility] Alkaline Phosphatase, Plasma 234(H) 46 - 142 U/L 06/05/2025 4:41 PM EDT [facility] Total Bilirubin, Plasma 1.0 0.2 - 1.1 mg/dL 06/05/2025 4:41 PM EDT [facility] eGFRcr 19.4 mL/min/1.7 3m*2 06/05/2025 4:41 PM EDT [facility] Comment:Reported eGFRcr in m L/min/1.73m2 is based the CKD-EPI 2020 equation that does not use a race coefficient. Blood Venous blood specimen / Unknown Venipuncture / Unknown 06/05/2025 4:05 PM EDT 06/05/2025 4:17 PM EDT us Carl Rico MD LAB BLOOD ORDERABLES Final Re sult [facility] [address] [place] [address] * XR Chest 1 View (06/05/2025 3:20 [...] No acute osseous finding.. Procedure Note Micha Coronel MD - 06/05/2025 CLINICAL INDICATION: Hypotension TECHNIQUE: [...] Micha Coronel MD on 06/05/2025 4:01 PM us Carl Rico MD IMG XR PROCEDURES Final Resul t * EKG now - STAT (adult) (06/05/2025 3:04 PM EDT) Only the most recent of3 resultswithin the time period is included. EKG DIAGNOSIS CLASS Abnormal MUSE ECG Ventricular Rate 113 BPM MUSE ECG Atrial Rate 113 BPM MUSE ECG MT Interval 160 ms MUSE ECG QRSD Interval 128 ms MUSE ECG QT Interval 392 ms MUSE ECG QTC Interval 537 ms MUSE ECG R Kelley -69 degrees MUSE ECG T Wave Kelley 113 degrees MUSE ECG Diagnosis Sinus tachycardia with a ventricular premature beat MUSE ECG Diagnosis Left axis deviation MUSE ECG Diagnosis Left bundle branch block MUSE ECG Diagnosis Abnormal ECG MUSE ECG Diagnosis MUSE ECG Diagnosis Confirmed by Deniz Cross ([id number]) on 06/05/2025 5:04:31 PM MUSE ECG 06/05/2025 3:04 PM EDT 06/05/2025 5:04 PM EDT Carl Rico MD ECG ORDERABLES Final Result MUSE ECG * POCT glucose meter (06/05/2025 2:36 PM EDT) Only the most recent of58 resultswithin the time period is included. POCT Glucose 97 74 - 99 mg/dL 06/05/2025 2:38 PM EDT [facility] Comment:Accuracy of a glucos e [...] for testing. Comment 06/05/2025 2:38 PM EDT [facility] [employer] [id number] 2:38 PM EDT [facility] Device ID [id number] 06/05/2025 2:38 PM EDT [facility] Specimen Type POC Capillary 06/05/2025 2:38 PM EDT [facility] Blood Capillary blood specimen / Unknown 06/05/2025 2:36 PM EDT 06/05/2025 2:38 PM EDT us Generic Provider Poct LAB POINT OF CARE TEST DOCKED DEVICE UNSOLICITED RESULTS Final Result [facility] [address] [place] [address] * VAS Ankle Brachial Index - VENU [...] detected at the ankle level of the PRINCIPAL ARCHAEOLOGIST. Toe pressure is absent. COMMUNICATION: Per this [...] of angioplasty/stent; S/p Angioplasty of the left PRINCIPAL ARCHAEOLOGIST performed on 12/16/2024 TECHNIQUE: Non-invasive, continuous wave doppler exam with segmental pressures and spectral analysis of the lower extremity was performed. COMPARISON: Prior exam performed on 01/07/2025-evidence for medial calcinosis. . FINDINGS: Right: Multiphasic waveforms are demonstrated in the WOOD CUT ENGRAVER, PRINCIPAL ARCHAEOLOGIST and DPA. Vessels are non-compressible at the ankle, consistent with medial calcinosis. Toe pressure absent. Left: Multiphasic waveforms are demonstrated in the WOOD CUT ENGRAVER. Monophasic waveforms are demonstrated in the DPA. No waveform is detected at the ankle level of the PRINCIPAL ARCHAEOLOGIST . Vessels are non-compressible at the ankle, [...] Right: Multiphasic waveforms are demonstrated in the WOOD CUT ENGRAVER, PRINCIPAL ARCHAEOLOGIST and DPA. Vesselsare non-compressible at the ankle, consistent with medial calcinosis. Toepressure absent. Left: Multiphasic waveforms are demonstrated in the WOOD CUT ENGRAVER. Monophasic waveformsare demonstrated in the DPA. No waveform is detected at the ankle level ofthe PRINCIPAL ARCHAEOLOGIST . Vessels are non-compressible at the ankle, consistent withmedial calcinosis. Toe pressure absent IMPRESSION: Right: Abnormal study, waveform analysis indicate normal arterial flow at rest,but there is evidence for medial calcinosis. Toe pressure absent. Left: Abnormal study, waveform analysis demonstrates hemodynamically significantinfrainguinal disease. There is evidence for medial calcinosis. No signalis detected at the ankle level of the PRINCIPAL ARCHAEOLOGIST. Toe pressure is absent. COMMUNICATION: Per this [...] Joseluis Carrillo MD on 05/15/2025 5:54 PM Darleen SANCHEZ CV VASCULAR PROCEDURES Final Result * MT DEBRIDEMENT, SKIN, SUB-Q TISSUE,=<20 SQ CM (04/15/2025 [...] provider verified the correct patient, procedure, equipment, support engineer, and site/side marked as required. Debridement Details [...] Darleen SANCHEZ IN CLINIC/BEDSIDE ORDERABLES Final Result * (ABNORMAL) Hemoglobin and Hematocrit, Blood (03/27/2025 9:43 AM EDT) Only the most recent of2 resultswithin the time period is included. [facility] HGB 8.8(L) 11.2 - 15.7 g/dL LAB HEMATOLOGY METHOD 03/27/2025 10:52 AM EDT [facility] HCT 27.2(L) 34.0 - 45.0 % LAB HEMATOLOGY METHOD 03/27/2025 10:52 AM EDT [facility] Blood Blood sample taken from central line / Unknown (Central Line) Existing Catheter / Unknown 03/27/2025 9:43 AM EDT 03/27/2025 10:47 AM EDT Juan Daniel Najera MD LAB BLOOD ORDERABLES Final Resu lt [facility] [address] [place] [address] * Vitamin B12 (03/27/2025 9:43 AM EDT) Vitamin B12, Serum 987 210 - 1,033 pg/mL 03/27/2025 1:51 PM EDT [facility] Blood Blood sample taken from central line / Unknown (Central Line) Existing Catheter / Unknown 03/27/2025 9:43 AM EDT 03/27/2025 10:47 AM EDT us Juan Daniel Najera MD LAB BLOOD ORDERABLES Final Resu lt [facility] [address] [place] [address] * (ABNORMAL) Renal Function Panel, Plasma (03/27/2025 9:43 AM EDT) Glucose, Plasma 192(H) 74 - 99 mg/dL 03/27/2025 11:36 AM EDT [facility] BUN, Plasma 19 8 - 23 mg/dL 03/27/2025 11:36 AM EDT [facility] Creatinine, Plasma 2.96(H) 0.60 - 1.10 mg/dL 03/27/2025 11:36 AM EDT [facility] BUN/Creatinine Ratio 6 03/27/2025 11:36 AM EDT [facility] Sodium, Plasma 139 136 - 145 mmol/L 03/27/2025 11:36 AM EDT [facility] Potassium, Plasma 3.4(L) 3.6 - 4.9 mmol/L 03/27/2025 11:36 AM EDT [facility] Chloride, Plasma 100 97 - 107 mmol/L 03/27/2025 11:36 AM EDT [facility] CO2, Plasma 28 22 - 29 mmol/L 03/27/2025 11:36 AM EDT [facility] Anion Gap 11 6 - 16 mmol/L 03/27/2025 11:36 AM EDT [facility] Total Calcium, Plasma 7.8(L) 8.9 - 10.2 mg/dL 03/27/2025 11:36 AM EDT [facility] Phosphorus, Plasma 2.7 2.5 - 4.5 mg/dL 03/27/2025 11:36 AM EDT [facility] Albumin, Plasma 2.5(L) 3.5 - 5.2 g/dL 03/27/2025 11:36 AM EDT [facility] eGFRcr 16.3 mL/min/1.7 3m*2 03/27/2025 11:36 AM EDT [facility] Comment:Reported eGFRcr in m L/min/1.73m2 is based the CKD-EPI 2020 equation that does not use a race coefficient. Blood Blood sample taken from central line / Unknown (Central Line) Existing Catheter / Unknown 03/27/2025 9:43 AM EDT 03/27/2025 10:47 AM EDT us Juan Daniel Najera MD LAB BLOOD ORDERABLES Final Resu lt [facility] [address] [place] [id number] * CT Head wo IV Contrast (03/26/2025 5:58 PM EDT) Anatomical Region Laterality Modality Head Computed Tomogra phy Impressions 03/27/2025 10:11 AM EDT No definite acute intracranial mass or hemorrhage. Chronic findings as above. CRITICAL RESULT: No. COMMUNICATION: Per this written report. Drafted by Kit Vallejo MD on 03/27/2025 10:06 AM Final report signed by Kit Vallejo MD on 03/27/2025 10:11 AM Narrative 03/27/2025 10:11 AM EDT CLINICAL INDICATION: Mental status change, unknown cause TECHNIQUE: Spiral axial CT images of the head were obtained without contrast administration. Total DLP (Dose-Length Product): 740.49 mGy.cm. Please note: The reported value represents the total of one or more individual components during the CT acquisition on this date and at this time, and as such, the same value may appear in more than one CT report depending on the interpreting/reporting physicians. COMPARISON: MRI from 11/15/2018 FINDINGS: Diagnostic Quality: Adequate. There is mild prominence of the cerebral sulci and lateral ventricles most consistent with mild brain volume loss. Mild patchy areas of low-attenuation are seen in the subcortical and periventricular white matter bilaterally, nonspecific but likely representing chronic small vessel ischemia. There is no acute large cortical infarct, intracranial hemorrhage or large mass on this noncontrast study. Soft Tissues: No significant soft tissue swelling is present. Skull: There are no calvarial destructive lesions or fractures. Sinuses and Mastoids: The visualized portions of the paranasal sinuses are clear. The mastoid air cells are clear. Procedure Note Kit Martinez MD - 03/27/2025 CLINICAL INDICATION: Mental status change, unknown cause TECHNIQUE: Spiral axial CT images of the head were obtained without contrastadministration. Total DLP (Dose-Length Product): 740.49 mGy.cm. Please note: The reportedvalue represents the total of one or more individual components during theCT acquisition on this date and at this time, and as such, the same valuemay appear in more than one CT report depending on theinterpreting/reporting physicians. COMPARISON: MRI from 11/15/2018 FINDINGS: Diagnostic Quality: Adequate. There is mild prominence of the cerebral sulci and lateral ventricles mostconsistent with mild brain volume loss. Mild patchy areas oflow-attenuation are seen in the subcortical and periventricular whitematter bilaterally, nonspecific but likely representing chronic smallvessel ischemia. There is no acute large cortical infarct, intracranial hemorrhage or largemass on this noncontrast study. Soft Tissues: No significant soft tissue swelling is present. Skull: There are no calvarial destructive lesions or fractures. Sinuses and Mastoids: The visualized portions of the paranasal sinuses areclear. The mastoid air cells are clear. IMPRESSION: No definite acute intracranial mass or hemorrhage. Chronic findings asabove. CRITICAL RESULT: No. COMMUNICATION: Per this written report. Drafted by Kit Vallejo MD on 03/27/2025 10:06 AM Final report signed by Kit Vallejo MD on 03/27/2025 10:11 AM us Juan Daniel Najera MD IMG CT PROCEDURES Final Result * IR Tunneled Central Venous Catheter Placement 5+ Years (03/26/2025 10:13 AM EDT) Anatomical Region Laterality Modality X-Ray Angiograph y Impressions 03/26/2025 12:07 PM EDT Aborted powerline placement CRITICAL RESULT: No. COMMUNICATION: Per this written report. Preliminary report signed by Heri Turner MD on 03/26/2025 10:40 AM By electronically signing this report, I, the attending physician, attest that I was present for the gilelspie and critical portions of the procedure(s) and agree with the final edited report. Drafted by Heri Turner MD on 03/26/2025 10:38 AM Final report signed by Miladys Her MD on 03/26/2025 12:07 PM Narrative 03/26/2025 12:07 PM EDT CLINICAL INDICATION: 74 y.o. female with a past medical history of multisystemic sarcoidosis left foot osteomyelitis requiring IV antibiotics and single lumen Powerline was removed in VIR clinic on 03/19 upon completion of antibiotics. After readmission, VAT attempted to place PICC and no suitable vessels noted. VIR was consulted to replace single lumen Powerline. Procedure: The patient was was brought to the interventional radiology suite for a tunneled power line placement, however the patient refused the procedure and was unable to tolerate being flat. She states she wants to get off the table and does not want the procedure done. We will reschedule the patient to obtain a tunneled power line under general anesthesia. This was communicated to the primary team. In the meantime we recommend obtaining central IV access (central femoral line) by the ICU team until the patient is reschedule under [place]. Procedure Note Miladys Her MD - 03/26/2025 CLINICAL INDICATION: 74 y.o. female with a past medical history of multisystemic sarcoidosisleft foot osteomyelitis requiring IV antibiotics and single lumenPowerline was removed in VIR clinic on 03/19 upon completion of antibiotics.After readmission, VAT attempted to place PICC and no suitable vesselsnoted. VIR was consulted to replace single lumen Powerline. Procedure: The patient was was brought to the interventional radiology suite for atunneled power line placement, however the patient refused the procedureand was unable to tolerate being flat. She states she wants to get offthe table and does not want the procedure done. We will reschedule the patient to obtain a tunneled power line undergeneral anesthesia. This was communicated to the primary team. In the meantime we recommend obtaining central IV access (central femoralline) by the ICU team until the patient is reschedule under [place]. IMPRESSION: Aborted powerline placement CRITICAL RESULT: No. COMMUNICATION: Per this written report. Preliminary report signed by Heri Turner MD on 03/26/2025 10:40 AM By electronically signing this report, I, the attending physician, attestthat I was present for the gillespie and critical portions of the procedure(s)and agree with the final edited report. Drafted by Heri Turner MD on 03/26/2025 10:38 AM Final report signed by Miladys Her MD on 03/26/2025 12:07 PM Valentina Garcia APRN, DNP IMG IR PROCEDURES Final Result * Transfuse RBC (03/25/2025 3:47 PM EDT) Only the most recent of7 resultswithin the time period is included. Juan Daniel Najera MD BLOOD TRANSFUSION ORDERABLES Fi nal Result * Prepare Leukocyte Reduced RBC: 2 Units (03/25/2025 1:46 PM EDT) Only the most recent of6 resultswithin the time period is included. Product Code [id number] BLOO D BANK Dispense Status Transfused BLOOD BANK Blood Expiration Date [id number] BLOOD BANK Unit Number [id number] B LOOD BANK Product Blood Type 7300 BLOOD BANK Blood Type B+ BLOOD BANK Crossmatch Compatible BLOOD BANK Product Code [id number] BLOO D BANK Dispense Status Transfused BLOOD BANK Blood Expiration Date [id number] BLOOD BANK Unit Number [id number] B LOOD BANK Product Blood Type 7300 BLOOD BANK Blood Type B+ BLOOD BANK Crossmatch Compatible BLOOD BANK Other Juan Daniel Najera MD BLOOD BANK PRODUCT ORDERABLES F inal Result BLOOD BANK [address] [place] [address], * (ABNORMAL) TSH Reflex FT4 (03/25/2025 11:10 AM EDT) Pathologist [facility] Thyroid Stimulating Hormone, Plasma 6.81(H) 0.40 - 4.20 uIU/mL 03/26/2025 5:53 AM EDT [facility] Blood Venous blood specimen / Unknown 03/25/2025 11:10 AM EDT 03/25/2025 11:32 AM EDT Ele Lim APRN LAB BLOOD ORDERABLES Final Re sult Performing Organization Address City/[facility] Co de Phone Number [facility] [address] [place] [address] * Lavender Top (03/25/2025 11:10 AM EDT) Pathologist [facility] Extra Hold for add-ons 03/25/2025 2:01 PM EDT [facility] Comment:Auto resulted. Blood Venous blood specimen / Unknown 03/25/2025 11:10 AM EDT 03/25/2025 11:32 AM EDT Juan Daniel Najera MD LAB BLOOD ORDERABLES Final Resu lt Performing Organization Address [facility] de Phone Number [facility] [address] [place] [address] * Light Green Top (03/25/2025 11:10 AM EDT) Only the most recent of2 resultswithin the time period is included. [facility] Extra Hold for add-ons 03/25/2025 2:01 PM EDT [facility] Comment:Auto resulted. Blood Venous blood specimen / Unknown 03/25/2025 11:10 AM EDT 03/25/2025 11:32 AM EDT Juan Daniel Najera MD LAB BLOOD ORDERABLES Final Resu lt Performing Organization Address City/[facility] de Phone Number [facility] [address] [place] [address] * (ABNORMAL) CBC W/O Differential (03/25/2025 11:10 AM EDT) Only the most recent of4 resultswithin the time period is included. Pathologist [facility] WBC Count 8.74 3.70 - 10.30 10*3/uL LAB HEMATOLOGY METHOD 03/25/2025 12:33 PM EDT [facility] RBC Count 1.82(L) 3.90 - 5.20 10*6/uL LAB HEMATOLOGY METHOD 03/25/2025 12:33 PM EDT [facility] HGB 5.8(LL) 11.2 - 15.7 g/dL LAB HEMATOLOGY METHOD 03/25/2025 12:33 PM EDT [facility] HCT 18.6(LL) 34.0 - 45.0 % LAB HEMATOLOGY METHOD 03/25/2025 12:33 PM EDT [facility] Platelet Count 150(L) 155 - 369 10*3/uL LAB HEMATOLOGY METHOD 03/25/2025 12:33 PM EDT [facility] MCV 102(H) 79 - 98 fL LAB HEMATOLOGY METHOD 03/25/2025 12:33 PM EDT [facility] MCH 31.9 26.0 - 32.0 pg LAB HEMATOLOGY METHOD 03/25/2025 12:33 PM EDT [facility] MCHC 31.2 30.7 - 35.5 g/dL LAB HEMATOLOGY METHOD 03/25/2025 12:33 PM EDT [facility] RDW 24.8(H) 11.5 - 14.5 % LAB HEMATOLOGY METHOD 03/25/2025 12:33 PM EDT [facility] MPV 10.0 8.8 - 12.5 fL LAB HEMATOLOGY METHOD 03/25/2025 12:33 PM EDT [facility] nRBC 0.7(H) <=0.0 per 100 WBCs LAB HEMATOLOGY METHOD 03/25/2025 12:33 PM EDT [facility] Blood Venous blood specimen / Unknown Venipuncture / Unknown 03/25/2025 11:10 AM EDT 03/25/2025 11:30 AM EDT us Madhavi Patiño APRN LAB BLOOD ORDERABLES Final R esult [facility] [address] [place] [address] * Free T4, Plasma (03/25/2025 11:10 AM EDT) Free T4, Plasma 1.0 0.8 - 1.7 ng/dL 03/26/2025 6:18 AM EDT [facility] Blood Venous blood specimen / Unknown 03/25/2025 11:10 AM EDT 03/25/2025 11:32 AM EDT Ele Lim COMMUNICATIONS DEPARTMENT HEAD LAB BLOOD ORDERABLES Final Re sult [facility] [address] [place] [address] * PERIPHERAL IV (SMARTFORM LINK) (03/23/2025 1:15 PM EDT) Narrative Reta Bales RN - 03/23/2025 1:15 PM EDT Reta Bales RN 03/23/2025 1:16 PM Insert peripheral IV Performed by: Reta Bales, RN Authorized by: Ancelmo Burnette PA Hand hygiene: Hand hygiene performed prior to insertion Inserted using aseptic techniques: Yes Preparation: Skin prepped with chg Orientation: Left, distal and upper Location: Arm Catheter placed: Peripheral IV Catheter size: 20g/2.00in Line Technique: Ultrasound Guidance Number of attempts: 1 IV flushes: Without difficulty and positive blood return noted and IV luer locked Patient tolerance: Patient tolerated the procedure well and there were no complications Patient comfort measures used: Position of comfort IV site covered with: Transparent semipermeable dressing Education provided to: Patient Comments: Labs obtained at time of IV start. Tubes labeled at bedside. Specimen delivered to lab via primary LEONARD Mott. Pertinent ultrasound and/or 3CG images sent to PACS. Ancelmo SANCHEZ IV THERAPY ORDERABLES Fidelia l Result * Hepatitis B Surface Antibody, Quantitative (03/22/2025 12:55 PM EDT) Hepatitis B Surface Antibody, Quantitative <8.00 NonReactiv e: <8, Grayzone: 8 - <12, Reactive: >= 12 mIU/mL 03/22/2025 4:49 PM EDT [facility] Comment: Nonreactive. Individual is considered not immune to HBV infection. Blood Arterial blood specimen / Unknown (Central Line) Existing Catheter / Unknown 03/22/2025 12:55 PM EDT 03/22/2025 1:23 PM EDT Tang SANCHEZ LAB BLOOD ORDERABLES Final Result Performing Organization Address [facility]/ZIP Co de Phone Number [facility] [address] [place] [address] * Hepatitis panel, acute (03/22/2025 12:55 PM EDT) Hepatitis B Surf Antigen Negative Negative 03/22/2025 4:52 PM EDT [facility] Hepatitis C Antibody Negative Negative 03/22/2025 4:52 PM EDT [facility] Hepatitis A Antibody IgM Negative Negative 03/22/2025 4:52 PM EDT [facility] Hepatitis B Core Antibody IgM Negative Negative 03/22/2025 4:52 PM EDT [facility] Blood Blood sample taken from central line / Unknown (Central Line) Existing Catheter / Unknown 03/22/2025 12:55 PM EDT 03/22/2025 1:23 PM EDT Tang SANCHEZ LAB BLOOD ORDERABLES Final Result Performing Organization Address [facility] [place] [address] * Blood Culture (Aerobic/Anaerobet Set) (03/20/2025 9:50 PM EDT) Culture No growth at day 5 03/26/2025 12:02 AM EDT [facility] Blood Venous blood specimen / Unknown Venipuncture / Unknown 03/20/2025 9:50 PM EDT 03/20/2025 9:59 PM EDT us Sienna SANCHEZ LAB MICROBIOLOGY - GENERAL ORDERABLES Final Result Performing Organization Address City/[facility]/ZIP Co de Phone Number [facility] [address] [place] [address] * XR Foot Right 3+ Views (03/20/2025 9:32 PM EDT) Anatomical Region Laterality Modality Lower Extremities, Foot Right Digital Radiography Impressions 03/20/2025 9:51 PM EDT 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 COMMUNICATION: Per this written report. Drafted by Micha Coronel MD on 03/20/2025 9:42 PM Final report signed by Micha Coronel MD on 03/20/2025 9:51 PM Narrative 03/20/2025 9:51 PM EDT CLINICAL INDICATION: wounds TECHNIQUE: XR FOOT LEFT 3+ VIEWS, XR FOOT RIGHT 3+ VIEWS COMPARISON: 02/10/2025 left foot , 12/08/2024 right foot FINDINGS: Left foot: Prior amputation at the fourth metatarsophalangeal joint. Cortical irregularity involves the head of the fourth metatarsal consistent with osteomyelitis slightly more prominent than when compared to the previous exam. There is an old fracture of the distal aspect of the proximal phalanx of the fifth toe. Dislocation of the middle phalanx of the third digit. Soft tissue swelling at the fifth digit region Right foot: No acute fracture or malalignment. Diffuse vascular calcification. Chronic tuft irregularity of the distal phalanx of the second and fifth digit. Soft tissue swelling of the great toe with soft tissue gas present. Procedure Note Micha Coronel MD - 03/20/2025 CLINICAL INDICATION: wounds TECHNIQUE: XR FOOT LEFT 3+ VIEWS, XR FOOT RIGHT 3+ VIEWS COMPARISON: 02/10/2025 left foot , 12/08/2024 right foot FINDINGS: Left foot: Prior amputation at the fourth metatarsophalangeal joint.Cortical irregularity involves the head of the fourth metatarsalconsistent with osteomyelitis slightly more prominent than when comparedto the previous exam. There is an old fracture of the distal aspect of theproximal phalanx of the fifth toe. Dislocation of the middle phalanx ofthe third digit. Soft tissue swelling at the fifth digit region Right foot: No acute fracture or malalignment. Diffuse vascularcalcification. Chronic tuft irregularity of the distal phalanx of thesecond and fifth digit. Soft tissue swelling of the great toe with softtissue gas present. IMPRESSION: Prior amputation at the fourth MTP joint with increasing bony destructionof the head of the left fourth metatarsal consistent with worseningosteomyelitis Dislocation of the PIP joint of the left third digit Old fracture distal aspect of the proximal phalanx of the left fifth digitwith soft tissue swelling at the fifth digit region Soft tissue swelling of the right great toe with soft tissue gas of thegreat toe suggesting gangrenous infection CRITICAL RESULT: No. COMMUNICATION: Per this written report. Drafted by Micha Coronel MD on 03/20/2025 9:42 PM Final report signed by Micha Coronel MD on 03/20/2025 9:51 PM Sienna SANCHEZ IMG XR PROCEDURES Final Re sult * XR Foot Left 3+ Views (03/20/2025 9:32 PM EDT) Anatomical Region Laterality Modality Lower Extremities, Foot Left Digital Radiography Impressions 03/20/2025 9:51 PM EDT 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 COMMUNICATION: Per this written report. Drafted by Micha Coronel MD on 03/20/2025 9:42 PM Final report signed by Micha Coronel MD on 03/20/2025 9:51 PM Narrative 03/20/2025 9:51 PM EDT CLINICAL INDICATION: wounds TECHNIQUE: XR FOOT LEFT 3+ VIEWS, XR FOOT RIGHT 3+ VIEWS COMPARISON: 02/10/2025 left foot , 12/08/2024 right foot FINDINGS: Left foot: Prior amputation at the fourth metatarsophalangeal joint. Cortical irregularity involves the head of the fourth metatarsal consistent with osteomyelitis slightly more prominent than when compared to the previous exam. There is an old fracture of the distal aspect of the proximal phalanx of the fifth toe. Dislocation of the middle phalanx of the third digit. Soft tissue swelling at the fifth digit region Right foot: No acute fracture or malalignment. Diffuse vascular calcification. Chronic tuft irregularity of the distal phalanx of the second and fifth digit. Soft tissue swelling of the great toe with soft tissue gas present. Procedure Note Micha Coronel MD - 03/20/2025 CLINICAL INDICATION: wounds TECHNIQUE: XR FOOT LEFT 3+ VIEWS, XR FOOT RIGHT 3+ VIEWS COMPARISON: 02/10/2025 left foot , 12/08/2024 right foot FINDINGS: Left foot: Prior amputation at the fourth metatarsophalangeal joint.Cortical irregularity involves the head of the fourth metatarsalconsistent with osteomyelitis slightly more prominent than when comparedto the previous exam. There is an old fracture of the distal aspect of theproximal phalanx of the fifth toe. Dislocation of the middle phalanx ofthe third digit. Soft tissue swelling at the fifth digit region Right foot: No acute fracture or malalignment. Diffuse vascularcalcification. Chronic tuft irregularity of the distal phalanx of thesecond and fifth digit. Soft tissue swelling of the great toe with softtissue gas present. IMPRESSION: Prior amputation at the fourth MTP joint with increasing bony destructionof the head of the left fourth metatarsal consistent with worseningosteomyelitis Dislocation of the PIP joint of the left third digit Old fracture distal aspect of the proximal phalanx of the left fifth digitwith soft tissue swelling at the fifth digit region Soft tissue swelling of the right great toe with soft tissue gas of thegreat toe suggesting gangrenous infection CRITICAL RESULT: No. COMMUNICATION: Per this written report. Drafted by Micha Coronel MD on 03/20/2025 9:42 PM Final report signed by Micha Coronel MD on 03/20/2025 9:51 PM Sienna SANCHEZ IMG XR PROCEDURES Final Re sult * SARS-CoV-2 COVID-19/Influenza A,B (03/20/2025 9:17 PM EDT) SARS CoV-2/COVID-19 RNA PCR Result Not Detected Not Detected 03/20/2025 9:45 PM EDT [facility] Comment:For In Vitro Diagnos tic Use Influenza A Virus PCR Result Not Detected Not Detected 03/20/2025 9:45 PM EDT [facility] Comment:For In Vitro Diagnos tic Use Influenza B Virus PCR Result Not Detected Not Detected 03/20/2025 9:45 PM EDT [facility] Comment:For In Vitro Diagnos tic Use Swab Nasopharyngeal structure / Unknown Non-blood Collection / Unknown 03/20/2025 9:17 PM EDT 03/20/2025 9:22 PM EDT Narrative [facility] - 03/20/2025 9:45 PM EDT This test was performed using the Warren SARS-CoV-2 & Influenza A/B assay on the Trini Cherie analyzer, an RT-PCR based method. Negative results do not preclude infection with the SARS-CoV-2 virus and should not be the sole basis of a patient treatment/management or public health decision. Follow up testing should be performed according to the current CDC recommendations. The limit of detection (LoD) for this assay is 12 cp/mL SARS-CoV-2 RNA. Use of the Warren SARS-CoV-2 & Influenza A/B assay in an asymptomatic screening population is intended to be used as part of an infection control plan that may include additional preventative measures, such as a predefined serial testing plan or directed testing of high-risk individuals. Negative results should be considered presumptive and do not preclude current or future infection obtained through community transmission or other exposures. Negative results must be considered in the context of an individual's recent exposures, history, presence of clinical signs and symptoms consistent with COVID-19. Sienna SANCHEZ LAB MICROBIOLOGY - GENERAL ORDERABLES Final Result [facility] [address] [place] [address] * (ABNORMAL) Beta-Hydroxybutyric Acid (03/20/2025 9:05 PM EDT) Beta-Hydroxybu tyric Acid, Plasma 0.653(H) <=0.27 mmol/L 03/20/2025 9:56 PM EDT [facility] Blood Venous blood specimen / Unknown Venipuncture / Unknown 03/20/2025 9:05 PM EDT 03/20/2025 9:22 PM EDT Sienna SANCHEZ LAB BLOOD ORDERABLES Final Result Performing Organization Address [facility] de Phone Number [facility] [address] [place] [address] * (ABNORMAL) Procalcitonin (03/20/2025 9:05 PM EDT) Procalcitonin, Plasma 2.19(H) <0.09 ng/mL 03/20/2025 9:56 PM EDT [facility] Blood Venous blood specimen / Unknown Venipuncture / Unknown 03/20/2025 9:05 PM EDT 03/20/2025 9:22 PM EDT Narrative [facility] - 03/20/2025 9:56 PM EDT Procalcitonin concentrations in healthy individuals are <0.09 ng/mL. Published data support the following interpretive risk assessment: An elevated procalcitonin result does not always indicate sepsis. Various non-infectious conditions are known to increase procalcitonin. Results should be considered in the context of clinical symptoms and other laboratory tests. Procalcitonin >2.0 ng/mL: Concentrations >2.0 ng/mL on the first day of ICU admission are associated with a higher risk of progression to severe sepsis and/or septic shock. The change in PCT over time may help predict 28 day mortality risk. Please consult [email or web address] for more information. Test performed at [facility], Core Laboratory. Sienna SANCHEZ LAB BLOOD ORDERABLES Final Result Performing Organization Address [facility] Co de Phone Number [facility] [address] [place] [address] * Sed rate, automated (03/20/2025 9:05 PM EDT) Sedimentation Rate 2 <30 mm/hr 2024 9:28 PM EDT [facility] Blood Venous blood specimen / Unknown Venipuncture / Unknown 03/20/2025 9:05 PM EDT 03/20/2025 9:24 PM EDT Sienna SANCHEZ LAB BLOOD ORDERABLES Final Result Performing Organization Address [facility] Co de Phone Number [facility] [address] [place] [address] * (ABNORMAL) C-Reactive protein (03/20/2025 9:05 PM EDT) CRP, Plasma 37.4(H) <=8.0 mg/L 03/20/2025 9:56 PM EDT [facility] Blood Venous blood specimen / Unknown Venipuncture / Unknown 03/20/2025 9:05 PM EDT 03/20/2025 9:22 PM EDT Narrative [facility] - 03/20/2025 9:56 PM EDT This CRP test is appropriate for assessment of infection, systemic inflammation and/or tissue injury. To assess cardiovascular disease risk order high sensitivity CRP (CRPH). Sienna SANCHEZ LAB BLOOD ORDERABLES Final Result Performing Organization Address [facility] de Phone Number [facility] [address] [place] [address] * [id number] IR Tunneled CVC Removal Wo SubcutaneoU/S Port Or Pump (03/19/2025 10:15 AM EDT) Anatomical Region Laterality Modality Ultrasound Impressions 03/19/2025 10:37 AM EDT Successful left internal jugular tunneled Powerline removal. CRITICAL RESULT: No. COMMUNICATION: Per this written report. Narrative 03/19/2025 10:37 AM EDT CLINICAL INDICATION: Difficult IV access, completion of IV antibiotics TECHNIQUE: Fireboat Operator: Valentina Garcia APRN Nurse: Zehra Hill, LEONARD Medications: 1% Lidocaine Subcutaneously. Time out: 1028 Procedure: After discussion of risks and benefits, informed written consent was obtained. Strict hand hygiene protocol was observed. All personnel in the room were attired in surgical mask and air table operator wore sterile gloves. The site was prepped with 2% chlorhexidine for cutaneous antisepsis followed by sterile barrier draping. Local anesthetic was administered at the catheter entry site. Using combination of sharp and blunt dissection the catheter was freed in the tunnel and extracted intact. Gentle pressure was held at the base of the neck for several minutes to effect hemostasis. A sterile dressing was applied. The patient tolerated the procedure well with no immediate complication being recognized. Patient was discharged after laying flat for 30 minutes. Note: No images were obtained. COMPARISON: None. FINDINGS: No overt signs of infection, catheter removed with TIP intact, cut to 28 cm. COMPLICATION: No immediate. Valentina Garcia COMMUNICATIONS DEPARTMENT HEAD, DNP IN-CLINIC IMG US PROCEDU RES Final Result * Vancomycin, random (03/14/2025 8:50 AM EDT) Vancomycin, Random, Plasma 17.6 ug/mL 03/14/2025 10:05 AM EDT [facility] Blood Venous blood specimen / Unknown Venipuncture / Unknown 03/14/2025 8:50 AM EDT 03/14/2025 9:45 AM EDT Jose G Sam MD LAB BLOOD ORDERABLES Final Re sult Performing Organization Address [facility] Co de Phone Number [facility] [address] [place] [address] * (ABNORMAL) Digoxin (03/14/2025 8:50 AM EDT) Pathologist [facility] Digoxin 0.6(L) 0.8 - 2.0 ng/mL 03/14/2025 11:25 AM EDT [facility] Comment: Therapeutic: 0.8 to 2.0 ng/mL Supratherapeutic: >2.0 ng/mL Blood Venous blood specimen / Unknown Venipuncture / Unknown 03/14/2025 8:50 AM EDT 03/14/2025 9:44 AM EDT Jose G Sam MD LAB BLOOD ORDERABLES Final Re sult Performing Organization Address City/[facility] Co de Phone Number [facility] [address] [place] [address] * (ABNORMAL) Basic Metabolic Panel, Plasma (03/14/2025 8:50 AM EDT) Pathologist [facility] Glucose, Plasma 173(H) 74 - 99 mg/dL 03/14/2025 10:05 AM EDT [facility] BUN, Plasma 48(H) 8 - 23 mg/dL 03/14/2025 10:05 AM EDT [facility] Creatinine, Plasma 4.33(H) 0.60 - 1.10 mg/dL 03/14/2025 10:05 AM EDT [facility] BUN/Creatinine Ratio 11 03/14/2025 10:05 AM EDT [facility] Sodium, Plasma 141 136 - 145 mmol/L 03/14/2025 10:05 AM EDT [facility] Potassium, Plasma 4.5 3.6 - 4.9 mmol/L 03/14/2025 10:05 AM EDT [facility] Chloride, Plasma 105 97 - 107 mmol/L 03/14/2025 10:05 AM EDT [facility] CO2, Plasma 25 22 - 29 mmol/L 03/14/2025 10:05 AM EDT [facility] Anion Gap 11 6 - 16 mmol/L 03/14/2025 10:05 AM EDT [facility] Total Calcium, Plasma 8.3(L) 8.9 - 10.2 mg/dL 03/14/2025 10:05 AM EDT [facility] eGFRcr 10.3 mL/min/1.7 3m*2 03/14/2025 10:05 AM EDT [facility] Comment:Reported eGFRcr in m L/min/1.73m2 is based the CKD-EPI 2020 equation that does not use a race coefficient. Blood Venous blood specimen / Unknown Venipuncture / Unknown 03/14/2025 8:50 AM EDT 03/14/2025 9:45 AM EDT us Maureen Smart MD LAB BLOOD ORDERABLES Final Resu lt [facility] [address] [place] [address] * Hemoglobin A1c (02/13/2025 9:59 AM EDT) Hemoglobin A1c 4.8 <5.7 % 02/13/2025 4:41 PM EDT [facility] Blood Venous blood specimen / Unknown Venipuncture / Unknown 02/13/2025 9:59 AM EDT 02/13/2025 10:37 AM EDT Narrative [facility] - 02/13/2025 4:41 PM EDT HA1C Interpretive Data: Diagnosis of Diabetes: Diabetic > or = 6.5% Pre-diabetic 5.7 to 6.4% Non-diabetic < or = 5.6% Glycemic Targets for Type I and Type II Diabetics: Non- Adults <7.0% Adults <6.0% Children and Adolescents <7.5% Source: [place] [employer]. Standards of medical care in diabetes,2017. Diabetes Care.2017:40 (suppl 1):S1-S135. us Myriam Esposito MD LAB BLOOD ORDERABLES Final Res ult [facility] [address] [place] [address] * Dexa Bone Density Axial Skeleton W VFA (11/30/2023 2:10 PM EST) Anatomical Region Laterality Modality Body Radiographic Elidia ging Narrative 12/02/2023 7:55 PM EST [facility] [address] [place] [address] DXA Bone Densitometry Report: [11/30/2023] Subjective BMD test performed using the Tyto LifeXA DXA System (analysis version: 14.10) manufactured by [employer]. REFERRING PROVIDER: Roxanna Turner, PA CLINICAL INFORMATION: osteoporosis PATIENT NAME: Torri Burk PATIENT AGE: 73 y.o. LEGAL SEX: female RADIOGRAPHIC VIEWS: Sites scanned: AP Spine, HIP Right , HIP Left, RADIUS Left, VFA, and TBS COMPARISON STUDY: DXA Axial Prior studies are not available for comparison. DXA Extremity Prior studies are not available for comparison. VFA Prior studies are not available for comparison. TBS Prior studies are not available for comparison. FINDINGS: Based on WHO criteria (post-menopausal female) the diagnosis is Osteopenia The lowest T- score is -1.2 in the LFA FRAX (10-year probability of fracture) - Major Osteoporotic: 5.3 %; Hip: 0.4 % The presence of arthritic or degenerative joint changes in the spine could artefactually increase measured BMD. VFA: There is evidence of severe compression in the T11 vertebra The compression deformities are wedge morphology L1 and L2 vertebrae also show biconcave morphology with minor height loss A VFA does not provide any indication of the recency/chronicity of a vertebral compression fracture TBS: The TBS L1-L4 of 1.189 indicates degraded microarchitecture FRAX (10-year probability of fracture) - corrected for TBS: Major Osteoporotic: 6.7 %; Hip: 0.6 % TREATMENT RECOMMENDATIONS: Work up for secondary osteoporosis and metabolic bone disease could be considered based on clinical indications. Treatment decisions may be based on clinical considerations. Suggest workup for systemic causes for vertebral compression fractures. Currently available DXA measurement sites, and FRAX could underestimate fracture risk. Suggest general measures to optimize calcium and vitamin D status, fall prevention measures and reduce fracture risk. Consider repeating this study in 1 year(s) or as clinically indicated to assess bone density change or response to treatment (should be performed on the same DXA scanner to allow for direct comparison and calculation of change in BMD). Roxanna SANCHEZ IMJose L DXA PROCEDURES Final Resul t from Last 3 Months or Most Recently Relevant to Health Maintenance Additional Health Concerns Infection Onset Date Last Indicated Pseudomonas - MDRO Comment:Wound culture collected 02/10/2025 positive for Pseudomonas aeruginosa MDR. This patient will require contact precautions indefinitely. Do not resolve this infection. 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 This patient will require contact precautions indefinitely. Do not resolve this infection. 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 Advance Directives and Livin g Will 03/29/2025 9:15 AM * Full Code (Latest Code Status on File) Date Activated Date Inactivated Comments 03/21/2025 12:16 AM 03/28/2025 5:43 PM Question Answer Comments I have reviewed the capacity from the link above and, if needed, have updated to appropriate status: Yes * Full Code Date Activated Date Inactivated Comments 02/09/2025 3:41 AM 03/17/2025 8:19 PM Question Answer Comments I have reviewed the capacity from the link above and, if needed, have updated to appropriate status: Yes * Full Code Date Activated Date Inactivated Comments 12/16/2024 6:32 PM 12/23/2024 5:35 PM Question Answer Comments Patient has decision-making capacity? Yes * Full Code Date Activated Date Inactivated Comments 12/08/2024 8:57 PM 12/16/2024 6:32 PM Question Answer Comments Patient has decision-making capacity? Yes * Full Code Date Activated Date Inactivated Comments 07/09/2024 2:44 PM 07/10/2024 8:28 PM Question Answer Comments Patient has decision-making capacity? Yes Care Teams Benefit Specialist Relationship Specialty Start Date End Date Salomon Juarez MD [address] [place] [address] [address] [place] [id number] PCP - General 02/26/21
--- OUTSIDE RECORDS SUMMARY | 2025-06-14 11:39 | XMS_ITS | Encounter Summary ---
Author Organization [facility] Address [address] [place] [address] Care Team Providers Care Knotting Machine Operator Name Role Phone Salomon Juarez MD Primary Care Provider [phone] Encounter Details Date Type Department Care Team (Latest Contact Info) Description 06/05/2025 Travel Social History Tobacco Use Types Packs/Day [...] any time in the past 12 m [facility], were you homeless or living in a snf (including now)? No 03/21/2025 Utilities Answer Date [...] as of this encounter Functional Status * Calculated C-SSRS Risk Score (Lifetime/Recent) Answer Date of Assessment Author No Risk Indicated 06/05/2025 3:05 PM EDT Anny Oliva, RN * Question Answer Date of Assessment Author 1. Wish to be (Past 1 Month) No 06/05/2025 3:05 PM EDT Anny Oliva, RN 2. Non-Specific Active Suici stephanie Thoughts (Past 1 Month) No 06/05/2025 3:05 PM EDT Karli Oliva, RN 6. Suicidal Behavior (Lifetime) No 3:05 PM EDT Anny Oliva, RN documented as of this encounter Plan of Treatment Upcoming Encounters Date Type Department Care Team (Late st Contact Info) Description 06/18/2025 9:00 AM EDT Office Visit [facility] [address] [place] [address] Darleen Carson PA [address] [place] [address] 07/11/2025 3:15 PM EDT Office Visit [facility] [address] [place] [address] Ely Aguirre PA [address] [facility] [address] [place] [address] 07/28/2025 8:30 AM EDT Appointment [facility] [address] [place] [address] 07/28/2025 9:20 AM EDT Office Visit [facility] [address] [place] [address] Lelia Larios MD [address] [facility] [address] [place] [id number] documented as of this encounter Visit Diagnoses [...] documented as of this encounter Care Teams Knotting Machine Operator Relationship Specialty Start Date End Date Salomon Juarez MD [address] [place] [address] [address] [place] [address] PCP - General 02/26/21 documented as of this encounter
--- OUTSIDE RECORDS SUMMARY | 2025-06-14 11:39 | XMS_ITS | Encounter Summary ---
Author Organization [facility] Address [address] [place] [address] Care Team Providers Care Certified Surgical Technologist Name Role Phone Salomon Juarez MD Primary Care Provider [phone] Reason for Visit * Reason Onset Date Comments Med Refill 06/04/2025 Encounter Details Date Type Department Care Team (Late st Contact Info) Description 06/04/2025 Refill [facility] [address] [place] [address] Lelia Larios MD [address] [place] [address] Other cirrhosis of liver (CMS/HCC) (Primary Dx); Hepatic encephalopathy (CMS/HCC) Social History Tobacco Use Types Packs/Day [...] any time in the past 12 m [facility], were you homeless or living in a fpc (including now)? No 03/21/2025 Utilities Answer Date [...] Indicated 06/05/2025 3:05 PM EDT Anny Oliva, LEONARD * Question Answer Date of Assessment Author 1. Wish to be (Past 1 Month) No 06/05/2025 3:05 PM EDT Anny Oliva, RN 2. Non-Specific Active Suici stephanie Thoughts (Past 1 Month) No 06/05/2025 3:05 PM EDT Karli Oliva, RN 6. Suicidal Behavior (Lifetime) No 3:05 PM EDT Anny Oliva, RN documented as of this encounter Miscellaneous Notes * Telephone Encounter - Felicita Mejia PharmD - 06/04/2025 8:38 AM EDT Refill request does not meet protocol. Sending to clinic triage for further review. Additional info: Listed as historical provider please review. documented in this encounter Plan of Treatment Upcoming Encounters Date Type Department Care Team (Late st Contact Info) Description 06/18/2025 9:00 AM EDT Office Visit [facility] [address] [place] [address] Darleen Carson PA [address] [place] [address] 07/11/2025 3:15 PM EDT Office Visit [facility] [address] [place] [address] Ely Aguirre PA [address] [place] [address] 07/28/2025 8:30 AM EDT Appointment [facility] [address] [place] [address] 07/28/2025 9:20 AM EDT [facility] Visit [facility] [address] [place] [address] Lelia Larios MD [address] [place] [address] documented as of this encounter Visit Diagnoses Diagnosis Other cirrhosis of liver (CMS/HCC)- Primary Hepatic encephalopathy (CMS/HCC) Hepatic encephalopathy documented in this encounter Additional Health Concerns [...] as of this encounter Care Teams Certified Surgical Technologist Relationship Specialty Start Date End Date Salomon Juarez MD [address] [place] [address] [address] [place] [address] PCP - General 02/26/21 documented as of this encounter
--- OUTSIDE RECORDS SUMMARY | 2025-06-14 11:39 | XMS_ITS ---
Author Organization [facility] Address [address] [place] [address] Care Team Providers Care Production Control Manager Name Role Phone Salomon Juarez MD Primary Care Provider [phone] Transitional Care Management Status:Closed (Closed) Start date:03/31/2025 Enrollment date:04/22/2025 Enrollment reason:Identified using hospital discharge data End date:04/30/2025 Close reason:Patient graduated Overview This episode type is for outpatient care managers enrolling patients in the [facility] Transitional Care Management program. Continued Care and Services Coordination
== END 2025-06-14 23:59 | disposition home or self-care (01) ==
PROVIDERS: PCP Family Medicine; Visit Provider Family Medicine
DX: M85.812 Other specified disorders of bone density and structure, left shoulder (principal)
CPT/HCPCS: 73030